=== PATIENT | female | born 1955 | race Caucasian/White ===

== ENCOUNTER 2016-08-23 00:40 | Emergency (ER) | payer MEDICARE, BC ==
[2016-08-23 01:35] LABS: Basophils % (A) 0 %; CH 28.5; CHCM 31.6; Eosinophils # (A) 0.1 k/uL (0-0.7); Eosinophils % (A) 1 %; HCT 33.6 % (34.0-46.0); HDW 2.34; HGB 10.6 gm/dL (11.4-16.0); Luc # (Auto) 0.04; Luc % (Auto) 0; Lymphocytes # (A) 0.9 k/uL (1.0-4.8); Lymphocytes % (A) 10 %; MCH 28.5 pg (25.0-35.0); MCHC 31.5 g/dL (31.0-37.0); MCV 90.7 fL (80.0-100.0); Mean Platelet Volume 6.4; Monocytes # (A) 0.2 k/uL (0-1.0); Monocytes % (A) 3 %; Neutrophils % (A) 85 %; RBC 3.71 m/uL (3.80-5.40); RDW 15.1 % (11.5-15.5); WBC 8.2 k/uL (3.8-10.6); WBC (Perox) 9.04
[2016-08-23 01:47] LABS: Calcium 9.8 mg/dL (8.4-10.2); Potassium 4.6 mmol/L (3.5-5.1); Total Bilirubin 0.3 mg/dL (0.2-1.3); Total Protein 6.8 g/dL (6.3-8.2)
--- NOTE | 2016-08-23 01:56 | XR ---
PROCEDURE: FILM CXR 2 VIEWS HISTORY: 60-year-old female with chest pain. COMPARISON: Chest radiograph 08/08/[address] chest 02/23/2016 TECHNIQUE: Frontal and lateral views of the chest were obtained. FINDINGS: Evaluation is for by positioning and technique Cardiac silhouette is enlarged, but stable when allowing for differences in technique and positioning. Stable mediastinal silhouette when allowing for differences in technique and positioning. Bibasilar atelectasis. No evidence of focal consolidation or pleural effusion. Bones demonstrate multilevel degenerative changes in the spine. IMPRESSION: Cardiac silhouette is enlarged, but stable when allowing for differences in technique and positioning. No evidence of focal consolidation or pleural effusion.
[2016-08-23 02:15] LABS: Creatine Kinase MB 0.4 ng/mL (0.0-2.4); Troponin I 0.014 ng/mL (0.000-0.034)
--- NOTE | 2016-08-23 02:36 | ED ---
Chest Pain HPI - General Chief Complaint: Chest Pain Stated Complaint: Chest Pain Time Seen by Provider: 08/23/16 00:47 Source: patient Mode of arrival: wheelchair Limitations: physical limitation - History of Present Illness MD Complaint: chest pain -: hour(s) Onset: during rest Pain Location: right chest Pain Radiation: neck, jaw/teeth Severity: moderate Quality: tightness Consistency: constant Improves With: nothing - Related Data Home Medications Medication Instructions Recorded Confirmed Aspirin 81 mg PO BID 05/12/14 02/23/16 Cetirizine HCl [Zyrtec] 10 mg PO HS PRN 05/12/14 02/23/16 Cholecalciferol [Vitamin D3] 5,000 unit PO DAILY 05/12/14 02/23/16 Ferrous Sulfate [Iron (65 MG 325 mg PO PC-LUNCH 05/12/14 02/23/16 Elemental)] Isosorbide Mononitrate ER [Imdur] 30 mg PO DAILY 05/12/14 02/23/16 Levothyroxine Sodium [Synthroid] 75 mcg PO DAILY 05/12/14 02/23/16 Lisinopril [Zestril] 10 mg PO DAILY 05/12/14 02/23/16 Meloxicam [Mobic] 15 mg PO PC-LUNCH 05/12/14 02/23/16 Metoprolol Tartrate [Lopressor] 25 mg PO BID 05/12/14 02/23/16 Pravastatin Sodium [Pravachol] 40 mg PO DAILY 05/12/14 02/23/16 Bisacodyl [Dulcolax] 10 mg PO DAILY 02/17/15 02/23/16 Cyanocobalamin [Vitamin B-12] 500 mcg PO DAILY 02/17/15 02/23/16 Fluticasone Nasal [place] [Flonase 1 spray EA NOSTRIL BID PRN 02/17/15 02/23/16 Nasal [place]] Vitamin E (Dl,Tocopheryl Acet) 400 unit PO DAILY 02/17/15 02/23/16 [Vitamin E] metFORMIN HCL 1,000 mg PO BID-W/MEALS 02/17/15 02/23/16 Albuterol Sulfate [Proventil Hfa] 2 puff INHALATION RT-Q4H PRN 02/23/16 02/23/16 Furosemide [Lasix] 40 mg PO BID 02/23/16 02/23/16 Krill Oil 500 mg PO DAILY 02/23/16 02/23/16 Mometasone Furoate [Asmanex Hfa] 2 puff INHALATION RT-BID 02/23/16 02/23/16 Potassium Chloride ER [K-Dur 10] 20 meq PO TID-W/MEALS 02/23/16 02/23/16 buPROPion HCL [Wellbutrin SR] 200 mg PO BID 02/23/16 02/23/16 oxyCODONE-APAP 5-325MG [Percocet 1 tab PO TID PRN 02/23/16 02/23/16 5-325 mg] Previous Rx's Medication Instructions Recorded Famotidine [Pepcid] 20 mg PO BID #60 tab 02/26/16 Rivaroxaban [Xarelto] 15 mg PO BID-W/MEALS tab 02/26/16 Allergies Allergy/AdvReac Type Severity Reaction Status Date / Time latex Allergy Rash/Hives Verified 08/23/16 06:05 Tetracyclines AdvReac YEAST Verified 08/23/16 06:05 INFECTION- PREFERS NOT TO TAKE tramadol AdvReac Nausea & Verified 08/23/16 06:05 Vomiting ENVIRONMENTAL ALLERGIES Allergy SINUS Uncoded 08/23/16 06:05 SYMPTOMS-GRASS TREES,DUST,POLLENS,MOLD Review of Systems ROS Statement: Those systems with pertinent positive or pertinent negative responses have been documented in the HPI. ROS Other: All systems not noted in ROS Statement are negative. Past Medical History Past Medical History: Atrial Fibrillation, Asthma, Coronary Artery Disease (CAD) , CVA/TIA, Diabetes Mellitus, Fibromyalgia, Hyperlipidemia, Hypertension, Myocardial Infarction ([place]), Osteoarthritis (OA), Skin Disorder, Thyroid Disorder Additional Past Medical History / Comment(s): BOTTOM 1/3 HEART DAMAGED-HEART MURMUR, CHRONIC CONSTIPATION,LOWER LEGS RED & PURPLE IN [id number]-[id number]-[id number] VERY DRY,SINUS HEADACHES, HX ANEMIA, HYST in 2014-was told cancer,. 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.FEET- NUMBNESS IF STANDS FOR MORE THAN 5 MINUTES,STROKE @ AGE 39-MILD PARALYSIS LT SIDE-AFFECTED FACE-LT EYELID Last Myocardial Infarction Date:: UNKNOWN History of Any Multi-Drug Resistant Organisms: None Reported Past Surgical History: Appendectomy, Cardiac Ablation, Cholecystectomy, Heart Catheterization, Heart Catheterization With Stent, Hysterectomy Additional Past Surgical History / Comment(s): PARTIAL HYSTERECTOMY 03/18/14 @ [facility]. CATARACT BLACK. WITH IMPLANTS. HEART CATH X 3 TOTAL 3 STENTS Past Anesthesia/Blood Transfusion Reactions: Motion Sickness Additional Past Anesthesia/Blood Transfusion Reaction / Comment(s): states needs general anesthesia, not IV sedation Date of Last Stent Placement:: UNKNOWN Past Psychological History: Depression Smoking Status: Former smoker Past Alcohol Use History: Rare Additional Past Alcohol Use History / Comment(s): SMOKES AGE 15 TO AGE 20 -WHEN QUIT WAS 1/2 PPD Past Drug Use History: None Reported - Past Family History Mother Family Medical History: Cancer Additional Family Medical History / Comment(s): STATES CA WAS ALL OVER- NOT SURE OF PRIMARY SITE General Exam Limitations: physical limitation Course Vital Signs 08/23/16 08/23/16 08/23/16 00:47 01:30 03:08 Temperature 98.7 F Pulse Rate 106 H 92 91 Respiratory 20 20 20 Rate Blood Pressure 196/89 147/64 145/65 O2 Sat by Pulse 95 95 94 L Oximetry 08/23/16 08/23/16 08/23/16 04:15 05:30 06:24 Temperature Pulse Rate 87 84 83 Respiratory 20 18 18 Rate Blood Pressure 144/81 139/67 139/67 O2 Sat by Pulse 94 L 95 94 L Oximetry Disposition Clinical Impression: CHF (congestive heart failure) Disposition: HOME SELF-CARE Condition: Fair Instructions: Heart Failure (ED) Additional Instructions: As we discussed, take an extra dose of lasix for the next three days. Follow with Dr. Deluca as we discussed. Return here if any symptoms recur. Referrals: Lor Deluca MD [Primary Care Provider] - 1-2 days
[2016-08-23] MEDS ORDERED: ACETAMINOPHEN TAB 325 MG TAB PO STA (02:45)
[2016-08-23 05:40] VITALS: RESP 18
[2016-08-23] MEDS ORDERED: FUROSEMIDE 40 MG TAB PO STA (08:06)
[2016-08-23 08:24] VITALS: BP 132/63; PULSE 92; TEMP 98
== END 2016-08-23 09:02 | disposition home or self-care (01) ==
LOC: EC 00:40
DX: I11.0 Hypertensive heart disease with heart failure (principal); M54.2 Cervicalgia; E78.5 Hyperlipidemia, unspecified; E11.9 Type 2 diabetes mellitus without complications; D64.9 Anemia, unspecified; I25.10 Atherosclerotic heart disease of native coronary artery without angina pectoris; E07.9 Disorder of thyroid, unspecified; M19.90 Unspecified osteoarthritis, unspecified site; M79.7 Fibromyalgia; F32.9 Major depressive disorder, single episode, unspecified; K59.09 Other constipation; L98.8 Other specified disorders of the skin and subcutaneous tissue; I25.2 Old myocardial infarction; Z87.891 Personal history of nicotine dependence; Z79.51 Long term (current) use of inhaled steroids; Z79.84 Long term (current) use of oral hypoglycemic drugs; Z79.1 Long term (current) use of non-steroidal anti-inflammatories (NSAID); Z79.82 Long term (current) use of aspirin; Z79.899 Other long term (current) drug therapy; Z88.1 Allergy status to other antibiotic agents; Z88.6 Allergy status to analgesic agent; Z91.048 Other nonmedicinal substance allergy status; Z91.040 Latex allergy status; Z95.5 Presence of coronary angioplasty implant and graft; Z86.73 Personal history of transient ischemic attack (TIA), and cerebral infarction without residual deficits
CPT/HCPCS: 36415; 71020; 80053; 82550; 82553; 84484; 85025; 85379; 99285

== ENCOUNTER → 2017-01-08 | Outpatient (CLI) | payer MEDICARE, BC ==
[2017-01-08 14:31] LABS: Basophils # (A) 0.1 k/uL (0-0.2); Basophils % (A) 1 %; CH 28.6; CHCM 30.3; Eosinophils # (A) 0.2 k/uL (0-0.7); Eosinophils % (A) 2 %; HCT 39.3 % (34.0-46.0); HGB 12.2 gm/dL (11.4-16.0); Hypochromasia Moderate; Luc # (Auto) 0.19; Luc % (Auto) 2; Lymphocytes # (A) 1.4 k/uL (1.0-4.8); Lymphocytes % (A) 14 %; MCH 29.5 pg (25.0-35.0); MCHC 31.1 g/dL (31.0-37.0); MCV 94.9 fL (80.0-100.0); Mean Platelet Volume 7.1; Monocytes # (A) 0.5 k/uL (0-1.0); Monocytes % (A) 5 %; Neutrophils # (A) 7.9 k/uL (1.3-7.7); Neutrophils % (A) 77 %; RBC 4.14 m/uL (3.80-5.40); RDW 15.2 % (11.5-15.5); WBC 10.3 k/uL (3.8-10.6); WBC (Perox) 10.82
[2017-01-08 14:58] LABS: Calcium 9.3 mg/dL (8.4-10.2); Magnesium 1.8 mg/dL (1.6-2.3); Potassium 5.1 mmol/L (3.5-5.1); Total Protein 6.9 g/dL (6.3-8.2)
[2017-01-08 18:26] LABS: Urine Creatinine 257.2 mg/dL
[2017-01-08 18:35] LABS: Iron(FE) 68 ug/dL (50-170); Total Iron Binding Capacity 382 ug/dL (228-460)
[2017-01-12 23:21] LABS: Alternaria Alternata IgG 6.9 mcg/mL (< 13.6); Phoma ssp. IgG 5.9 mcg/mL (< 6.6); Saccaharomospora viridis Not detected (Not detected); Saccaharopoly. rectivirgula Not detected (Not detected)
== END | disposition home or self-care (01) ==
LOC: LABWHC1 13:17
PROVIDERS: ATTEND Family Medicine
DX: J67.9 Hypersensitivity pneumonitis due to unspecified organic dust (principal); R06.00 Dyspnea, unspecified; Z79.01 Long term (current) use of anticoagulants
CPT/HCPCS: 36415; 80053; 80061; 82043; 82550; 82570; 82607; 82785; 83036; 83540; 83550; 83735; 84165; 84439; 84443; 84480; 85025; 85379; 86001; 86606; 86609

== ENCOUNTER 2017-01-09 14:41 | Inpatient (IN) | payer MEDICARE, BC ==
[2017-01-09] MEDS ORDERED: HEPARIN SODIUM,PORCINE 10,000 UNIT/ML 1 ML VIAL IV ONE (15:05)
[2017-01-09] MEDS ORDERED: HEPARIN SODIUM,PORCINE 5,000 UNIT/ML 1 ML VIAL IV PRN (15:25)
[2017-01-09] MEDS ORDERED: SODIUM CHLORIDE 0.9% 1,000 ML IV STA (15:25)
[2017-01-09] MEDS: HEPARIN SODIUM,PORCINE/D5W PMX 25,000 UNIT in DEXTROSE/WATER 1 500ML.BAG IV SCH (15:26)
[2017-01-09 15:55] LABS: Basophils % (A) 0 %; CH 28.9; CHCM 30.9; Eosinophils % (A) 0 %; HCT 39.5 % (34.0-46.0); HDW 2.27; HGB 12.8 gm/dL (11.4-16.0); Hypochromasia Slight; Luc # (Auto) 0.03; Luc % (Auto) 0; Lymphocytes # (A) 0.7 k/uL (1.0-4.8); Lymphocytes % (A) 8 %; MCH 30.6 pg (25.0-35.0); MCHC 32.4 g/dL (31.0-37.0); MCV 94.2 fL (80.0-100.0); Mean Platelet Volume 6.8; Monocytes # (A) 0.2 k/uL (0-1.0); Monocytes % (A) 2 %; Neutrophils # (A) 7.6 k/uL (1.3-7.7); Neutrophils % (A) 89 %; RBC 4.19 m/uL (3.80-5.40); RDW 15.1 % (11.5-15.5); WBC 8.5 k/uL (3.8-10.6); WBC (Perox) 8.62
[2017-01-09 16:03] LABS: INR 1.2 (<1.2); Partial Thromboplastin Time 22.1 sec (22.0-30.0); Prothrombin Time 11.7 sec (9.0-12.0)
[2017-01-09] MEDS ORDERED: MORPHINE SULFATE 4 MG/ML SYRINGE IV PRN (16:10)
[2017-01-09] MEDS ORDERED: NITROGLYCERIN SL TABS 0.4 MG TAB SUBLINGUAL PRN (16:10)
[2017-01-09 16:12] LABS: Calcium 9.6 mg/dL (8.4-10.2); Magnesium 1.9 mg/dL (1.6-2.3); Potassium 4.9 mmol/L (3.5-5.1); Total Bilirubin 0.6 mg/dL (0.2-1.3); Total Protein 6.9 g/dL (6.3-8.2)
--- NOTE | 2017-01-09 16:13 | ED ---
General Adult HPI - General Chief complaint: Shortness of Breath Stated complaint: Poss Blood Clot Time Seen by Provider: 01/09/17 15:14 Source: patient, RN notes reviewed, old records reviewed Mode of arrival: wheelchair Limitations: no limitations - History of Present Illness Initial comments: This is a 61-year-old female to the ER for evaluation. Patient that they for evaluation regarding consistent shortness of breath cough and congestion for about 6 weeks progressively worsening and worsening despite outpatient treatment including treatment of bronchitis and pneumonia. Patient denies any pain but states she has discontinued continuing and worsening shortness of breath on exertion. Patient states she does have history of PE. Denies any fevers or travel history patient's PE she states was about a year ago and she did take blood thinners first 5 months until resolution of symptoms, resolution of PE - Related Data Home Medications Medication Instructions Recorded Confirmed Aspirin 81 mg PO BID 05/12/14 01/09/17 Cetirizine HCl [Zyrtec] 10 mg PO HS PRN 05/12/14 01/09/17 Cholecalciferol [Vitamin D3] 5,000 unit PO DAILY 05/12/14 01/09/17 Isosorbide Mononitrate ER [Imdur] 30 mg PO DAILY 05/12/14 01/09/17 Lisinopril [Zestril] 10 mg PO DAILY 05/12/14 01/09/17 Meloxicam [Mobic] 15 mg PO PC-LUNCH 05/12/14 01/09/17 Metoprolol Tartrate [Lopressor] 25 mg PO BID 05/12/14 01/09/17 Pravastatin Sodium [Pravachol] 40 mg PO DAILY 05/12/14 01/09/17 Bisacodyl [Dulcolax] 10 mg PO DAILY 02/17/15 01/09/17 Cyanocobalamin [Vitamin B-12] 500 mcg PO DAILY 02/17/15 01/09/17 Fluticasone Nasal [place] [Flonase 1 spray EA NOSTRIL BID PRN 02/17/15 01/09/17 Nasal [place]] Vitamin E (Dl,Tocopheryl Acet) 400 unit PO DAILY 02/17/15 01/09/17 [Vitamin E] metFORMIN HCL 1,000 mg PO BID-W/MEALS 02/17/15 01/09/17 Albuterol Sulfate [Proventil Hfa] 2 puff INHALATION RT-Q4H PRN 02/23/16 01/09/17 Krill Oil 500 mg PO DAILY 02/23/16 01/09/17 buPROPion HCL [Wellbutrin SR] 200 mg PO BID 02/23/16 01/09/17 Ascorbic Acid [Vitamin C] 500 mg PO DAILY 01/09/17 01/09/17 Clotrimazole [place] [Mycelex 10 mg MUCOUS MEM 5XD 01/09/17 01/09/17 [place]] Fluticasone/Vilanterol [Breo 1 puff INHALATION RT-BID 01/09/17 01/09/17 Ellipta 200-25 Mcg INH] Levothyroxine Sodium [Tirosint] 88 mcg PO DAILY 01/09/17 01/09/17 Ranitidine HCl [Zantac] 75 mg PO BID 01/09/17 01/09/17 Rivaroxaban [Xarelto] 15 mg PO DAILY 01/09/17 01/09/17 guaiFENesin [Mucinex] 600 mg PO BID 01/09/17 01/09/17 predniSONE See Taper PO DAILY 01/09/17 01/09/17 Previous Rx's Medication Instructions Recorded Famotidine [Pepcid] 20 mg PO BID #60 tab 02/26/16 Allergies Allergy/AdvReac Type Severity Reaction Status Date / Time latex Allergy Rash/Hives Verified 01/09/17 15:09 Milk Containing Products AdvReac THRUSH Verified 01/09/17 15:09 [Dairy] Tetracyclines AdvReac YEAST Verified 01/09/17 15:09 INFECTION- PREFERS NOT TO TAKE tramadol AdvReac Nausea & Verified 01/09/17 15:09 Vomiting ENVIRONMENTAL ALLERGIES Allergy SINUS Uncoded 01/09/17 14:48 SYMPTOMS-GRASS TREES,DUST,POLLENS,MOLD Review of Systems ROS Statement: Those systems with pertinent positive or pertinent negative responses have been documented in the HPI. ROS Other: All systems not noted in ROS Statement are negative. Past Medical History Past Medical History: Atrial Fibrillation, Asthma, Coronary Artery Disease (CAD) , CVA/TIA, Diabetes Mellitus, Fibromyalgia, Hyperlipidemia, Hypertension, Myocardial Infarction ([place]), Osteoarthritis (OA), Skin Disorder, Thyroid Disorder Additional Past Medical History / Comment(s): BOTTOM 1/3 HEART DAMAGED-HEART MURMUR, CHRONIC CONSTIPATION,LOWER LEGS RED & PURPLE IN [id number] VERY DRY,SINUS HEADACHES, HX ANEMIA, HYST in 2014-was told cancer,. 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.FEET- NUMBNESS IF STANDS FOR MORE THAN 5 MINUTES,STROKE @ AGE 39-MILD PARALYSIS LT SIDE-AFFECTED FACE-LT EYELID Last Myocardial Infarction Date:: UNKNOWN History of Any Multi-Drug Resistant Organisms: None Reported Past Surgical History: Appendectomy, Cardiac Ablation, Cholecystectomy, Heart Catheterization, Heart Catheterization With Stent, Hysterectomy Additional Past Surgical History / Comment(s): PARTIAL HYSTERECTOMY 03/18/14 @ [facility]. CATARACT BLACK. WITH IMPLANTS. HEART CATH X 3 TOTAL 3 STENTS Past Anesthesia/Blood Transfusion Reactions: Motion Sickness Additional Past Anesthesia/Blood Transfusion Reaction / Comment(s): states needs general anesthesia, not IV sedation Date of Last Stent Placement:: UNKNOWN Past Psychological History: Depression Smoking Status: Former smoker Past Alcohol Use History: Rare Past Drug Use History: None Reported - Past Family History Mother Family Medical History: Cancer Additional Family Medical History / Comment(s): STATES CA WAS ALL OVER- NOT SURE OF PRIMARY SITE General Exam Limitations: no limitations General appearance: alert, in no apparent distress Head exam: Present: atraumatic, normocephalic, normal inspection Eye exam: Present: normal appearance, PERRL, EOMI. Absent: scleral icterus, conjunctival injection, periorbital swelling ENT exam: Present: normal exam, mucous membranes moist Neck exam: Present: normal inspection. Absent: tenderness, meningismus, lymphadenopathy Respiratory exam: Present: normal lung sounds bilaterally. Absent: respiratory distress, wheezes, rales, rhonchi, stridor Cardiovascular Exam: Present: regular rate, normal rhythm, normal heart sounds. Absent: systolic murmur, diastolic murmur, rubs, gallop, clicks GI/Abdominal exam: Present: soft, normal bowel sounds. Absent: distended, tenderness, guarding, rebound, rigid Extremities exam: Present: normal inspection, full ROM, normal capillary refill. Absent: tenderness, pedal edema, joint swelling, calf tenderness Back exam: Present: normal inspection Neurological exam: Present: alert, oriented X3, CN II-XII intact Psychiatric exam: Present: normal affect, normal mood Skin exam: Present: warm, dry, intact, normal color. Absent: rash Course Vital Signs 01/09/17 01/09/1701/09/17 14:44 15:36 15:45 Temperature 97.9 F Pulse Rate 88 95 Respiratory 16 20 20 Rate Blood Pressure 205/83 O2 Sat by Pulse 97 97 Oximetry - Reevaluation(s) Reevaluation #1: 01/09/17 16:12 Patient has good pain control Medical Decision Making - Medical Decision Making 61 female at ER for evaluation of shortness of breath cough and congestion increasing for quite sometime. Patient states about 6 weeks. Patient has positive PE, history of PE about one year ago which she has recently stopped taking blood thinners for. Patient does not know underlying cause. Currently complaining about chest pain shortness of breath - Lab Data Result diagrams: 01/09/17 15:14 Lab Results 01/09/17 01/09/17 Range/Units 15:14 15:14 WBC 8.5 (3.8-10.6) k/uL RBC 4.19 (3.80-5.40) m/uL Hgb 12.8 (11.4-16.0) gm/dL Hct 39.5 (34.0-46.0) % MCV 94.2 (80.0-100.0) fL MCH 30.6 (25.0-35.0) pg MCHC 32.4 (31.0-37.0) g/dL RDW 15.1 (11.5-15.5) % Plt Count 179 (150-450) k/uL Neutrophils % 89 % Lymphocytes % 8 % Monocytes % 2 % Eosinophils % 0 % Basophils % 0 % Neutrophils # 7.6 (1.3-7.7) k/uL Lymphocytes # 0.7 L (1.0-4.8) k/uL Monocytes # 0.2 (0-1.0) k/uL Eosinophils # 0.0 (0-0.7) k/uL Basophils # 0.0 (0-0.2) k/uL Hypochromasia Slight PT 11.7 (9.0-12.0) sec INR 1.2 H (<1.2) APTT 22.1 (22.0-30.0) sec - Radiology Data Radiology results: report reviewed (CT angios shows positive PE) Critical Care Time Critical Care Time: Yes Total Critical Care Time: 31 Disposition Clinical Impression: Pulmonary embolism, Saddle pulmonary embolus Disposition: ADMITTED IP TO THIS HOSP Condition: Serious Referrals: Lor Deluca MD [Primary Care Provider] - 1-2 days
[2017-01-09 16:30] LABS: Creatine Kinase MB 0.8 ng/mL (0.0-2.4)
[2017-01-09 16:36] LABS: Troponin I 0.079 ng/mL (0.000-0.034)
[2017-01-09 17:42] LABS: Glucose,Whole Blood 262 mg/dL (75-99)
[2017-01-09 18:12] VITALS: BMI 49.8
[2017-01-09] MEDS ORDERED: FLUTICASONE 50MCG/SPRAY NASAL 16GM EA NOSTRIL PRN (21:05)
[2017-01-09] MEDS: buPROPion SR 100 MG TABLET.ER PO SCH (22:12)
[2017-01-09] MEDS: FAMOTIDINE 20 MG TAB PO SCH (22:12)
[2017-01-09] MEDS: LORATADINE 10 MG TAB PO SCH (22:12)
[2017-01-09] MEDS: guaiFENesin 600 MG TABLET.ER PO SCH (22:12)
[2017-01-09] MEDS: METOPROLOL TARTRATE 25 MG TAB PO SCH (22:13)
[2017-01-09 22:35] LABS: Glucose,Whole Blood 216 mg/dL (75-99)
[2017-01-09] MEDS: INSULIN LISPRO (humaLOG) 300 UNIT/3 ML VIAL SQ SCH (22:37)
[2017-01-09 23:14] LABS: Troponin I 0.052 ng/mL (0.000-0.034)
[2017-01-09] MEDS: ZOLPIDEM 5 MG TAB PO PRN (23:30)
[2017-01-10] MEDS: CLOTRIMAZOLE TROCHE 10 MG TROCHE MUCOUS MEM SCH ×5 (00:43→20:16)
[2017-01-10] MEDS: HEPARIN SODIUM,PORCINE/D5W PMX 25,000 UNIT in DEXTROSE/WATER 1 500ML.BAG IV SCH (01:09)
[2017-01-10 05:44] LABS: INR 1.3 (<1.2); Prothrombin Time 12.5 sec (9.0-12.0)
[2017-01-10 05:52] LABS: Partial Thromboplastin Time 166.6 sec (22.0-30.0)
[2017-01-10 06:07] LABS: Basophils % (A) 0 %; CH 28.6; CHCM 29.8; Eosinophils # (A) 0.1 k/uL (0-0.7); Eosinophils % (A) 1 %; HCT 34.9 % (34.0-46.0); HDW 2.27; HGB 10.8 gm/dL (11.4-16.0); Hypochromasia Marked; Luc % (Auto) 2; Lymphocytes # (A) 1.4 k/uL (1.0-4.8); Lymphocytes % (A) 14 %; MCH 29.7 pg (25.0-35.0); MCHC 30.9 g/dL (31.0-37.0); MCV 96.2 fL (80.0-100.0); Mean Platelet Volume 6.7; Monocytes # (A) 0.5 k/uL (0-1.0); Monocytes % (A) 5 %; Neutrophils # (A) 7.7 k/uL (1.3-7.7); Neutrophils % (A) 78 %; RBC 3.63 m/uL (3.80-5.40); WBC 9.9 k/uL (3.8-10.6); WBC (Perox) 10.76
[2017-01-10 06:08] LABS: Blood Urea Nitrogen 25 mg/dL (7-17); Carbon Dioxide 20 mmol/L (22-30); Cholesterol 206 mg/dL (<200); Glucose 141 mg/dL (74-99); Non-African American GFR(MDRD) 58 (>60 ml/min/1.73 sqM); Total Bilirubin 0.5 mg/dL (0.2-1.3); Total Protein 5.7 g/dL (6.3-8.2)
[2017-01-10 06:09] LABS: Creatine Kinase MB 1.1 ng/mL (0.0-2.4)
[2017-01-10] MEDS: LEVOTHYROXINE 88 MCG TAB PO SCH (06:12)
[2017-01-10 06:21] LABS: Troponin I 0.1 ng/mL (0.000-0.034)
[2017-01-10 06:28] LABS: ALT 25 U/L (9-52); AST 17 U/L (14-36); Alkaline Phosphatase 79 U/L (38-126); Anion Gap 7 mmol/L; Calcium 9.1 mg/dL (8.4-10.2); Chloride 108 mmol/L (98-107); HDL Cholesterol 65 mg/dL (40-60); Potassium 4.7 mmol/L (3.5-5.1); Sodium 135 mmol/L (137-145)
[2017-01-10 07:24] LABS: Glucose,Whole Blood 148 mg/dL (75-99)
[2017-01-10] MEDS ORDERED: INSULIN LISPRO (humaLOG) 300 UNIT/3 ML VIAL SQ SCH (07:30)
--- NOTE | 2017-01-10 07:31 | US ---
EXAMINATION TYPE: US venous doppler duplex LE BI DATE OF EXAM: 01/09/2017 6:38 PM COMPARISON: NONE CLINICAL HISTORY: saddle pe. SIDE PERFORMED: Bilateral TECHNIQUE: The lower extremity deep venous system is examined utilizing real time linear array sonog aj with graded compression, doppler sonography and color-flow sonography. VESSELS IMAGED: External Iliac Vein (EIV) Common Femoral Vein Deep Femoral Vein Greater Saphenous Vein * Femoral Vein Popliteal Vein Small Saphenous Vein * Proximal Calf Veins (* superficial vessels) Right Leg: Positive for DVT Left Leg: Negative for DVT Right leg positive for DVT in Common femoral vein, Femoral vein and popliteal vein. IMPRESSION: 1. Positive for DVT right lower extremity. 2. Negative left lower extremity.
[2017-01-10] MEDS: IPRATROPIUM-ALBUTEROL 3 ML NEB INHALATION SCH ×4 (07:39→19:44)
[2017-01-10] MEDS: INSULIN LISPRO (humaLOG) 300 UNIT/3 ML VIAL SQ SCH ×4 (07:45→20:16)
[2017-01-10] MEDS ORDERED: ALBUTEROL NEBULIZED 2.5 MG/3 ML INHALATION SCH (08:00)
[2017-01-10] MEDS: buPROPion SR 100 MG TABLET.ER PO SCH ×2 (08:39→20:16)
[2017-01-10] MEDS: guaiFENesin 600 MG TABLET.ER PO SCH ×2 (08:40→20:16)
[2017-01-10] MEDS: BISACODYL 5 MG TABLET.DR PO SCH (08:40)
[2017-01-10] MEDS: LISINOPRIL 10 MG TAB PO SCH (08:41)
[2017-01-10] MEDS: predniSONE 20 MG TAB PO SCH (08:41)
[2017-01-10] MEDS: FAMOTIDINE 20 MG TAB PO SCH (08:41)
[2017-01-10] MEDS: ISOSORBIDE MONONITRATE ER 30 MG TAB.ER.24H PO SCH (08:42)
[2017-01-10] MEDS: METOPROLOL TARTRATE 25 MG TAB PO SCH ×2 (08:42→20:17)
--- NOTE | 2017-01-10 08:57 | CONS ---
CONSULTATION Mrs. Oconnell is a 61-year-old female known history of coronary artery disease, history of cerebrovascular accident, prior ablation for atrial fibrillation, prior history of stroke and history of pulmonary embolism, who presented to the hospital with symptoms of progressive dyspnea going on for the last few weeks. She underwent an outpatient evaluation of her D-dimer that was markedly abnormal and subsequently a CT scan that was consistent with a saddle pulmonary embolism. She was admitted. The patient is limited in her physical activity, but for the last 6 weeks has noted significant worsening in her breathing pattern with significant dyspnea on exertion. She has occasional chest discomfort. Occasional dizziness or palpitation. She has chronic peripheral edema. She sleeps upright because of her back. She has some palpitation, but no recent syncope. She has no PND. She has underwent prior percutaneous revascularization according to her, but the full detail of that is not available to me at this point. She he was diagnosed with a pulmonary embolism in February of 2016. Her coronary risk factors are positive for history of hyperlipidemia, history of hypertension and history of diabetes. She is a nonsmoker. MEDICATION: Her medications at home include vitamin D, vitamin B, Zyrtec, Dulcolax, Mobic, Zestril 10 mg daily, isosorbide mononitrate 30 mg daily. Pepcid. pravastatin 40 mg daily, metoprolol tartrate 25 mg twice a day, bupropion, metformin 1 gram twice a day, levothyroxine, Breo Ellipta, Zantac, prednisone tapered dose, Krill oil and albuterol. REVIEW OF SYSTEMS: RESPIRATORY SYSTEM: She has history of bronchial asthma. History of significant dyspnea on exertion. GI SYSTEM: No recent GI bleed. No peptic ulcer disease. SYSTEM: She had a prior history of hematuria. NERVOUS SYSTEM: No history of seizure. She had a history of stroke. PHYSICAL EXAMINATION: A 61-year-old female, alert, mildly dyspneic, morbidly obese. The blood pressure running in the 130s to 150s with the heart rate in the 70s. HEAD: Normocephalic. EYES: Sclerae anicteric. NECK: No bruit. Unable to evaluate jugular venous pressure. LUNGS: With no wheezes or rales. HEART: Regular rate and rhythm. S1, S2. No S3, no rub with a systolic murmur at the base. No diastolic murmur. ABDOMEN: Soft, obese, nontender. Positive bowel sounds. No organomegaly. EXTREMITIES: Chronic skin changes with mild edema. Generalized tenderness in the legs related to fibromyalgia. LAB DATA: Lab data revealed a BUN and creatinine of 25 and 0.97. On admission, they were 30 and 1.2. Potassium 4.7. Hemoglobin of 10.8. Troponin of 0.079, 0.052 and 0.10. Her cholesterol is 206 with an LDL of 130. Her EKG revealed a sinus mechanism, rate of 93, left axis deviation, poor R progression. She underwent a venous duplex scan of her lower extremities that revealed positive for DVT in the right lower extremity and negative in the left lower extremity. IMPRESSION: 1. Saddle pulmonary embolism, patient had a similar event in February of 2016. 2. Minimal elevation of troponin, most likely related to her pulmonary embolism. I see no evidence to suggest primary cardiac event. 3. History of coronary artery disease. 4. History of paroxysmal atrial fibrillation, status post ablation. 5. History of hypertension. 6. Hyperlipidemia. 7. Diabetes mellitus. 8. History of fibromyalgia. 9. Morbid obesity. RECOMMENDATION: From the cardiac standpoint, I will start her on Xarelto 15 mg twice a day. I will stop her heparin. I will review the results of her echocardiogram. I will switch her to atorvastatin since her lipid remains suboptimal. Depending on her progress, further recommendation will be made. Thank you for this consult. We will follow with you. MMODL / IJN: [id number] /
[2017-01-10] MEDS ORDERED: ASPIRIN 325 MG TAB PO SCH (09:00)
[2017-01-10] MEDS ORDERED: PRAVASTATIN SODIUM 40 MG TAB PO SCH (09:00)
[2017-01-10] MEDS: ATORVASTATIN 40 MG TAB PO SCH (09:33)
[2017-01-10] MEDS: RIVAROXABAN 15 MG TAB PO SCH ×2 (09:33→17:35)
--- NOTE | 2017-01-10 09:54 | ECHOF ---
Referral Reason:saddle pe MEASUREMENTS -------- HEIGHT: 157.5 cm WEIGHT: 125.2 kg BP: 134/72 RVIDd: 2.3 cm (< 3.3) IVSd: 1.2 cm (0.6 - 1.1) LVIDd: 4.9 cm (3.9 - 5.3) LVPWd: 1.4 cm (0.6 - 1.1) IVSs: 1.8 cm LVIDs: 3.3 cm LVPWs: 1.5 cm Ao Diam: 3.5 cm (2.0 - 3.7) AV Cusp: 2.3 cm (1.5 - 2.6) LA Diam: 3.5 cm (2.7 - 3.8) MV EXCURSION: 15.618 mm (> 18.000) MV EF SLOPE: 48 mm/s (70 - 150) EPSS: 1.1 cm MV E Chris: 0.62 m/s MV DecT: 149 ms MV A Chris: 0.56 m/s MV E/A Ratio: 1.10 AR PHT: 473 ms RAP: 5.00 mmHg RVSP: 30.35 mmHg FINDINGS -------- Sinus rhythm. This was a technically difficult study with suboptimal views. No Apicals due to skin tears. The left ventricular size is normal. There is mild concentric left ventricular hypertrophy. Overall left ventricular systolic function is low-normal with, an EF between 50 - 55 %. The right ventricle is normal in size and function. The left atrium is normal in size. The right atrium is normal in size. The aortic valve is trileaflet, and appears structurally normal. No aortic stenosis or regurgitation. The mitral valve leaflets are mildly thickened. There is trace mitral regurgitation. Mild tricuspid regurgitation present. The right ventricular systolic pressure, as measured by Doppler, is 30.35mmHg. Pulmonic valve appears structurally normal. The aortic root size is normal. The pericardium is normal. CONCLUSIONS -------- 1. Sinus rhythm. 2. The aortic valve is trileaflet, and appears structurally normal. No aortic stenosis or regurgitation. 3. The mitral valve leaflets are mildly thickened. 4. There is trace mitral regurgitation. 5. Mild tricuspid regurgitation present. 6. The right ventricular systolic pressure, as measured by Doppler, is 30.35mmHg. 7. Pulmonic valve appears structurally normal. 8. The aortic root size is normal. 9. The pericardium is normal. 10. This was a technically difficult study with suboptimal views. 11. No Apicals due to skin tears. 12. The left ventricular size is normal. 13. There is mild concentric left ventricular hypertrophy. 14. Overall left ventricular systolic function is low-normal with, an EF between 50 - 55 %. 15. The right ventricle is normal in size and function. 16. The left atrium is normal in size. 17. The right atrium is normal in size. TUBE TEST TECHNICIAN: Grecia Alamo RDCS
--- NOTE | 2017-01-10 10:55 | P.CNPUL ---
History of Present Illness Consult date: 01/10/17 Requesting physician: Lor Deluca Reason for consult: pulmonary embolism Chief complaint: shortness of breath History of present illness: This is a 61-year-old female patient being seen examined and evaluated today in the intensive care unit. This patient came into the emergency room yesterday with shortness of breath cough and congestion that had been ongoing for approximately 2 months and had been getting progressively worse over the last week. Patient did recently have outpatient treatment for bronchitis and pneumonia as well. Patient does have a significant history of PE approximately one year ago and was on anticoagulation therapy for approximately 5 months and then there was DC'd last September. Patient CTA was positive for pulmonary embolism. Patient also did have a venous Doppler of her bilateral lower extremities. Right leg was positive for DVT left leg was negative for DVT. Of note the patient is morbidly obese and is sedentary in her lifestyle with limited physical activity. Upon examination the patient is resting up in bed on room air does complain of shortness of breath that is significant on exertion and/or extensive conversation. Occasionally she does experience chest discomfort with her shortness of breath. All labs and reports have been reviewed. Review of Systems 14 point review of systems was completed and is negative unless noted above in the HPI. Past Medical History Past Medical History: Atrial Fibrillation, Asthma, Coronary Artery Disease (CAD) , CVA/TIA, Diabetes Mellitus, Fibromyalgia, Hyperlipidemia, Hypertension, Myocardial Infarction (IN), Osteoarthritis (OA), Skin Disorder, Thyroid Disorder Additional Past Medical History / Comment(s): BOTTOM 1/3 HEART DAMAGED-HEART MURMUR, CHRONIC CONSTIPATION,LOWER LEGS RED & PURPLE IN BGENF-VCGHVQ-OMRF VERY DRY,SINUS HEADACHES, HX ANEMIA, HYST in 2013-was told cancer,. 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 CATARACT BLACK. WITH IMPLANTS. HEART CATH X 3 TOTAL 3 STENTS Past Anesthesia/Blood Transfusion Reactions: Motion Sickness Additional Past Anesthesia/Blood Transfusion Reaction / Comment(s): states needs general anesthesia, not IV sedation Date of Last Stent Placement:: UNKNOWN Past Psychological History: Depression Smoking Status: Never smoker Past Alcohol Use History: Rare Additional Past Alcohol Use History / Comment(s): SMOKES AGE 15 TO AGE 20 -WHEN QUIT WAS 1/2 PPD Past Drug Use History: None Reported - Past Family History Mother Family Medical History: Cancer Additional Family Medical History / Comment(s): STATES CA WAS ALL OVER- NOT SURE OF PRIMARY SITE Medications and Allergies Home Medications Medication Instructions Recorded Confirmed Type Cetirizine HCl [Zyrtec] 10 mg PO HS PRN 05/12/14 01/09/17 History Cholecalciferol [Vitamin D3] 5,000 unit PO DAILY 05/12/14 01/09/17 History Isosorbide Mononitrate ER [Imdur] 30 mg PO DAILY 05/12/14 01/09/17 History Lisinopril [Zestril] 10 mg PO DAILY 05/12/14 01/09/17 History Meloxicam [Mobic] 15 mg PO PC-LUNCH 05/12/14 01/09/17 History Metoprolol Tartrate [Lopressor] 25 mg PO BID 05/12/14 01/09/17 History Pravastatin Sodium [Pravachol] 40 mg PO DAILY 05/12/14 01/09/17 History Bisacodyl [Dulcolax] 10 mg PO DAILY 02/17/15 01/09/17 History Cyanocobalamin [Vitamin B-12] 500 mcg PO DAILY 02/17/15 01/09/17 History Fluticasone Nasal [place] [Flonase 1 spray EA NOSTRIL BID PRN 02/17/15 01/09/17 History Nasal [place]] Vitamin E (Dl,Tocopheryl Acet) 400 unit PO DAILY 02/17/15 01/09/17 History [Vitamin E] metFORMIN HCL 1,000 mg PO BID-W/MEALS 02/17/15 01/09/17 History Albuterol Sulfate [Proventil Hfa] 2 puff INHALATION RT-Q4H PRN 02/23/16 History Krill Oil 500 mg PO DAILY 02/23/16 01/09/17 History buPROPion HCL [Wellbutrin SR] 200 mg PO BID 02/23/16 01/09/17 History Famotidine [Pepcid] 20 mg PO BID #60 tab 02/26/16 01/09/17 Rx Ascorbic Acid [Vitamin C] 500 mg PO DAILY 01/09/17 01/09/17 History Clotrimazole Tyree [Mycelex 10 mg MUCOUS MEM 5XD 01/09/17 01/09/17 History Tyree] Fluticasone/Vilanterol [Breo 1 puff INHALATION RT-BID 01/09/17 01/09/17 History Ellipta 200-25 Mcg INH] Levothyroxine Sodium [Tirosint] 88 mcg PO DAILY 01/09/17 01/09/17 History Ranitidine HCl [Zantac] 75 mg PO BID 01/09/17 01/09/17 History Rivaroxaban [Xarelto] 15 mg PO DAILY 01/09/17 01/09/17 History guaiFENesin [Mucinex] 600 mg PO BID 01/09/17 01/09/17 History predniSONE See Taper PO DAILY 01/09/17 01/09/17 History Allergies Allergy/AdvReac Type Severity Reaction Status Date / Time latex Allergy Rash/Hives Verified 01/09/17 15:09 Milk Containing Products AdvReac THRUSH Verified 01/09/17 18:51 [Dairy] Tetracyclines AdvReac YEAST Verified 01/09/17 15:09 INFECTION- PREFERS NOT TO TAKE tramadol AdvReac Nausea & Verified 01/09/17 15:09 Vomiting ENVIRONMENTAL ALLERGIES Allergy SINUS Uncoded 01/09/17 14:48 SYMPTOMS-GRASS TREES,DUST,POLLENS,MOLD Physical Exam Vitals: Vital Signs Temp Pulse Resp BP Pulse Ox 01/10/17 09:00 78 20 131/64 94 L 01/10/17 08:00 97.9 F 78 20 152/80 99 01/10/17 07:00 71 28 H 144/66 99 01/10/17 06:00 64 11 L 134/72 99 01/10/17 05:00 69 28 H 119/65 97 01/10/17 04:00 63 11 L 119/65 99 01/10/17 03:00 63 11 L 113/57 97 01/10/17 02:00 63 10 L 129/65 98 01/10/17 01:00 63 10 L 126/73 98 01/10/17 00:00 66 14 136/62 97 01/09/17 23:06 87 12 150/70 97 01/09/17 23:00 88 10 L 150/70 97 01/09/17 22:00 93 37 H 158/75 96 01/09/17 21:00 100 44 H 174/76 99 01/09/17 20:00 97.5 F L 98 33 H 154/59 98 01/09/17 19:45 98 22 146/83 99 01/09/17 19:30 100 24 146/83 98 01/09/17 19:15 105 H 177/64 95 01/09/17 19:11 98 01/09/17 19:00 93 20 177/64 98 01/09/17 18:45 98 12 177/64 97 01/09/17 18:30 98.0 F 102 H 14 202/85 99 01/09/17 18:15 95 18 173/89 100 01/09/17 18:00 100 42 H 166/88 98 01/09/17 17:51 97.5 F L 94 18 97 01/09/17 17:45 94 156/70 98 01/09/17 17:43 156/70 98 01/09/17 17:09 98 F 01/09/17 16:31 95 18 145/65 97 01/09/17 16:10 98 01/09/17 15:45 95 20 97 01/09/17 15:36 20 01/09/17 14:44 97.9 F 88 16 205/83 97 Intake and Output 01/09/17 01/10/17 01/10/17 22:59 06:59 14:59 Intake Total 670.79 1375.545 382.695 Output Total 900 745 245 Balance -229.21 630.545 137.695 Intake: IV 300 800 300 Sodium Chloride 0.9% 1, 300 800 300 000 ml @ 100 mls/hr IV . Q10H [facility] Rx#:[id number] Intake, IV Titration 245.79 575.545 82.695 Amount Heparin Sodium,Porcine/ 45.79 575.545 82.695 D5w Pmx 25,000 unit In Dextrose/Water 1 500ml. bag @ 17.9 UNITS/KG/HR 45 .79 mls/hr IV .[id number] [facility] Rx#:[id number] Sodium Chloride 0.9% 1, 200 000 ml @ 100 mls/hr IV . Q10H [facility] Rx#:[id number] Oral 125 Output: Urine 900 745 245 Other: Voiding Method Indwelling Catheter Indwelling Catheter Indwelling Catheter # Voids 1 Weight 123.5 kg 125.4 kg GENERAL EXAM: Alert, morbidly obese, comfortable in no apparent distress. HEAD: Normocephalic. EYES: Normal reaction of pupils, equal size. NOSE: Clear with pink turbinates. THROAT: No erythema or exudates. NECK: No masses, no JVD. CHEST: No chest wall deformity. LUNGS: Diminished bilaterally, Equal air entry with no crackles, wheeze, rhonchi or dullness. Bases diminished CVS: S1 and S2 normal with no audible mumurs, regular rhythm. ABDOMEN: No hepatosplenomegaly, normal bowel sounds, no guarding or rigidity. EXTREMITIES: +1-2 edema noted, pedal pulses palpable. SKIN: No rashes CENTRAL NERVOUS SYSTEM: No focal deficits, tone is normal in all 4 extremities. Results - Laboratory Findings CBC and BMP: 01/10/17 04:59 01/10/17 04:59 PT/INR, D-dimer PT 12.5 sec (9.0-12.0) H 01/10/17 04:59 INR 1.3 (<1.2) H 01/10/17 04:59 Abnormal lab findings: Abnormal Labs 01/09/17 01/09/17 01/09/17 15:14 15:14 15:14 RBC Hgb MCHC Lymphocytes # 0.7 L PT INR APTT Sodium 136 L Chloride Carbon Dioxide 20 L BUN 30 H Creatinine 1.20 H Glucose 241 H POC Glucose (mg/dL) Troponin I 0.079 H* Total Protein Albumin Cholesterol LDL Cholesterol, Calc HDL Cholesterol 01/09/17 01/09/17 01/09/17 15:14 17:39 22:22 RBC Hgb MCHC Lymphocytes # PT INR 1.2 H APTT Sodium Chloride Carbon Dioxide BUN Creatinine Glucose POC Glucose (mg/dL) 262 H 216 H Troponin I Total Protein Albumin Cholesterol LDL Cholesterol, Calc HDL Cholesterol 01/09/17 01/09/17 01/10/17 22:24 22:24 04:59 RBC Hgb MCHC Lymphocytes # PT INR APTT >200.0 H* Sodium Chloride Carbon Dioxide BUN Creatinine Glucose POC Glucose (mg/dL) Troponin I 0.052 H* 0.100 H* Total Protein Albumin Cholesterol LDL Cholesterol, Calc HDL Cholesterol 01/10/17 01/10/17 01/10/17 04:59 04:59 04:59 RBC 3.63 L Hgb 10.8 L MCHC 30.9 L Lymphocytes # PT 12.5 H INR 1.3 H APTT 166.6 H* Sodium 135 L Chloride 108 H Carbon Dioxide 20 L BUN 25 H Creatinine Glucose 141 H POC Glucose (mg/dL) Troponin I Total Protein 5.7 L Albumin 3.0 L Cholesterol 206 H LDL Cholesterol, Calc 130 H HDL Cholesterol 65 H 01/10/17 07:21 RBC Hgb MCHC Lymphocytes # PT INR APTT Sodium Chloride Carbon Dioxide BUN Creatinine Glucose POC Glucose (mg/dL) 148 H Troponin I Total Protein Albumin Cholesterol LDL Cholesterol, Calc HDL Cholesterol - Diagnostic Findings CT scan - chest: report reviewed Assessment and Plan Plan: Assessment [place] pulmonary embolism History of pulmonary embolism History of coronary artery disease History of hypertension Hyperlipidemia Diabetes mellitus History of fibromyalgia Morbid obesity Plan Patient should remain in the intensive care unit today. Medications have been reviewed and will be continued as ordered. Cardiology on consult and has switched the patient over to use a result of from heparin. Echo results are currently pending. Continue with pulmonary hygiene, coughing and deep breathing exercises, and supportive care. Supplemental oxygen to maintain oxygen saturations of 92% or better. Continue nebulizer treatments. GI and DVT prophylaxis. We will continue to monitor labs/results and adjust treatment as necessary. Further recommendations pending. I performed an examination of the patient and discussed their management with the nurse practitioner. I have reviewed the nurse practitioner's note and agree with the documented findings and plan of care.
[2017-01-10] MEDS: CYANOCOBALAMIN 500 MCG TAB PO SCH (11:44)
[2017-01-10] MEDS: CHOLECALCIFEROL 1,000 UNIT TAB PO SCH (11:44)
[2017-01-10] MEDS: VITAMIN E (DL,TOCOPHERYL ACET) 400 UNIT CAP PO SCH (11:44)
[2017-01-10] MEDS: ASCORBIC ACID 500 MG TAB PO SCH (11:44)
[2017-01-10 12:44] LABS: Glucose,Whole Blood 221 mg/dL (75-99)
--- NOTE | 2017-01-10 15:55 | P.HPIM ---
History of Present Illness H&P Date: 01/10/17 Chief Complaint: Shortness of breath 61-year-old morbidly obese female one of Dr. Deluca's patient with past medical history of pulmonary embolism February,, CAD, CVA, A. fib, asthma/COPD, fibromyalgia, hypertension hyperlipidemia and hypothyroidism who is known to have chronic neuropathy and eczema along with depression. Patient is known well to Dr. Taylor had ablation therapy for A. fib in the past. Patient was on anticoagulation with warfarin few years ago for A. fib. Patient completed 6 months of anticoagulation for pulmonary embolism and showed. States she felt better for a month but started having symptoms including shortness of breath associated with productive cough. She was treated with antibiotics as well as nebulizing treatment until last 3-4 weeks and the patient 's symptoms became worse. She underwent d-dimer which was positive and ended up getting a CTA of the chest positive for saddle embolism. Patient was called and sent to the emergency department at [facility]. Patient was monitored in the ICU for possible determination. DVT of the lower extremity is positive blood clots in the femoral and popliteal vein. Patient was evaluated at bedside. Endorses shortness of breath on exertion but denies any shortness of breath at rest. She denies any chest pain, palpitations or dizziness. She does feel better than yesterday. Patient was started on heparin anticoagulation yesterday and was transitioned to Xarelto 15 mg twice daily. Review of Systems Constitutional: Denies chills, Denies fever, Denies lethargy, Denies malaise, Denies poor appetite, Denies weakness, Denies weight loss Eyes: denies decreased vision, denies diplopia, denies discharge, denies pain Ears: deny: decreased hearing Ears, nose, mouth and throat: Denies dental pain, Denies headache, Denies nasal discharge, Denies nose pain Cardiovascular: Denies chest pain, endorses decreased exercise tolerance, endorses edema, Denies high blood pressure, Denies irregular heart beat, Denies palpitations, Denies paroxysmal nocturnal dyspnea, Denies rapid heart beat, Denies shortness of breath Respiratory: Denies congestion, Denies cough, Denies cough with sputum, endorses dyspnea, Denies home oxygen, Denies wheezing Gastrointestinal: Denies abdominal pain, Denies change in bowel habits, Denies coffee ground emesis, Denies early satiety, Denies excessive gas, Denies heartburn, Denies hematemesis, Denies hematochezia, Denies loss of appetite, Denies nausea, Denies vomiting Genitourinary: Denies dysuria, Denies flank pain, Denies kidney stones, Denies menorrhagia, Denies urgency, Denies urinary frequency Musculoskeletal: Patient uses cane to mobilize but had significant debility and is unable to walk long distances due to the same, she spent most of the day sitting. Integumentary: Denies rash, Denies wounds, Denies brittle nails, Denies change in hair/nails, Denies darkening of skin Neurological: Denies balance difficulties, Denies change in speech, Denies double vision, Denies gait dysfunction, Denies loss of vision, Denies motor disturbance, Denies numbness, Denies paralysis, Denies paresthesias, Denies seizures Psychiatric: Denies anxiety, Denies depression Endocrine: Denies excessive sweating, Denies excessive thirst, Denies high blood sugars, Denies palpitations Hematologic/Lymphatic: Denies easy bruising, Denies lymphadenopathy Past Medical History Past Medical History: Atrial Fibrillation, Asthma, Coronary Artery Disease (CAD) , CVA/TIA, Diabetes Mellitus, Fibromyalgia, Hyperlipidemia, Hypertension, Myocardial Infarction (LA), Osteoarthritis (OA), Skin Disorder, Thyroid Disorder Additional Past Medical History / Comment(s): BOTTOM 1/3 HEART DAMAGED-HEART MURMUR, CHRONIC CONSTIPATION,LOWER LEGS RED & PURPLE IN [id number] VERY DRY,SINUS HEADACHES, HX ANEMIA, HYST in 2013-was told cancer,. 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.FEET- NUMBNESS IF STANDS FOR MORE THAN 5 MINUTES,STROKE @ AGE 39-MILD PARALYSIS LT SIDE-AFFECTED FACE-LT EYELID Last Myocardial Infarction Date:: UNKNOWN History of Any Multi-Drug Resistant Organisms: None Reported Past Surgical History: Appendectomy, Cardiac Ablation, Cholecystectomy, Heart Catheterization, Heart Catheterization With Stent, Hysterectomy Additional Past Surgical History / Comment(s): PARTIAL HYSTERECTOMY 03/18/14 @ [facility] CATARACT BLACK. WITH IMPLANTS. HEART CATH X 3 TOTAL 3 STENTS Past Anesthesia/Blood Transfusion Reactions: Motion Sickness Additional Past Anesthesia/Blood Transfusion Reaction / Comment(s): states needs general anesthesia, not IV sedation Date of Last Stent Placement:: UNKNOWN Past Psychological History: Depression Smoking Status: Never smoker Past Alcohol Use History: Rare Additional Past Alcohol Use History / Comment(s): SMOKES AGE 15 TO AGE 20 -WHEN QUIT WAS 1/2 PPD Past Drug Use History: None Reported - Past Family History Mother Family Medical History: Cancer Additional Family Medical History / Comment(s): STATES CA WAS ALL OVER- NOT SURE OF PRIMARY SITE Medications and Allergies Home Medications Medication Instructions Recorded Confirmed Type Cetirizine HCl [Zyrtec] 10 mg PO HS PRN 05/12/14 01/09/17 History Cholecalciferol [Vitamin D3] 5,000 unit PO DAILY 05/12/14 01/09/17 History Isosorbide Mononitrate ER [Imdur] 30 mg PO DAILY 05/12/14 01/09/17 History Lisinopril [Zestril] 10 mg PO DAILY 05/12/14 01/09/17 History Meloxicam [Mobic] 15 mg PO PC-LUNCH 05/12/14 01/09/17 History Metoprolol Tartrate [Lopressor] 25 mg PO BID 05/12/14 01/09/17 History Pravastatin Sodium [Pravachol] 40 mg PO DAILY 05/12/14 01/09/17 History Bisacodyl [Dulcolax] 10 mg PO DAILY 02/17/15 01/09/17 History Cyanocobalamin [Vitamin B-12] 500 mcg PO DAILY 02/17/15 01/09/17 History Fluticasone Nasal [place] [Flonase 1 spray EA NOSTRIL BID PRN 02/17/15 01/09/17 History Nasal [place]] Vitamin E (Dl,Tocopheryl Acet) 400 unit PO DAILY 02/17/15 01/09/17 History [Vitamin E] metFORMIN HCL 1,000 mg PO BID-W/MEALS 02/17/15 01/09/17 History Albuterol Sulfate [Proventil Hfa] 2 puff INHALATION RT-Q4H PRN 02/23/16 History Krill Oil 500 mg PO DAILY 02/23/16 01/09/17 History buPROPion HCL [Wellbutrin SR] 200 mg PO BID 02/23/16 01/09/17 History Famotidine [Pepcid] 20 mg PO BID #60 tab 02/26/16 01/09/17 Rx Ascorbic Acid [Vitamin C] 500 mg PO DAILY 01/09/17 01/09/17 History Clotrimazole [place] [Mycelex 10 mg MUCOUS MEM 5XD 01/09/17 01/09/17 History [place]] Fluticasone/Vilanterol [Breo 1 puff INHALATION RT-BID 01/09/17 01/09/17 History Ellipta 200-25 Mcg INH] Levothyroxine Sodium [Tirosint] 88 mcg PO DAILY 01/09/17 01/09/17 History Ranitidine HCl [Zantac] 75 mg PO BID 01/09/17 01/09/17 History Rivaroxaban [Xarelto] 15 mg PO DAILY 01/09/17 01/09/17 History guaiFENesin [Mucinex] 600 mg PO BID 01/09/17 01/09/17 History predniSONE See Taper PO DAILY 01/09/17 01/09/17 History Allergies Allergy/AdvReac Type Severity Reaction Status Date / Time latex Allergy Rash/Hives Verified 01/09/17 15:09 Milk Containing Products AdvReac THRUSH Verified 01/09/17 18:51 [Dairy] Tetracyclines AdvReac YEAST Verified 01/09/17 15:09 INFECTION- PREFERS NOT TO TAKE tramadol AdvReac Nausea & Verified 01/09/17 15:09 Vomiting ENVIRONMENTAL ALLERGIES Allergy SINUS Uncoded 01/09/17 14:48 SYMPTOMS-GRASS TREES,DUST,POLLENS,MOLD Physical Exam Vitals: Vital Signs Temp Pulse Resp BP Pulse Ox 01/10/17 11:00 64 15 100/54 94 L 01/10/17 10:00 71 23 117/68 95 01/10/17 09:00 78 20 131/64 94 L 01/10/17 08:00 97.9 F 78 20 152/80 99 01/10/17 07:00 71 28 H 144/66 99 01/10/17 06:00 64 11 L 134/72 99 01/10/17 05:00 69 28 H 119/65 97 01/10/17 04:00 63 11 L 119/65 99 01/10/17 03:00 63 11 L 113/57 97 01/10/17 02:00 63 10 L 129/65 98 01/10/17 01:00 63 10 L 126/73 98 01/10/17 00:00 66 14 136/62 97 01/09/17 23:06 87 12 150/70 97 01/09/17 23:00 88 10 L 150/70 97 01/09/17 22:00 93 37 H 158/75 96 01/09/17 21:00 100 44 H 174/76 99 01/09/17 20:00 97.5 F L 98 33 H 154/59 98 01/09/17 19:45 98 22 146/83 99 01/09/17 19:30 100 24 146/83 98 01/09/17 19:15 105 H 177/64 95 01/09/17 19:11 98 01/09/17 19:00 93 20 177/64 98 01/09/17 18:45 98 12 177/64 97 01/09/17 18:30 98.0 F 102 H 14 202/85 99 01/09/17 18:15 95 18 173/89 100 01/09/17 18:00 100 42 H 166/88 98 01/09/17 17:51 97.5 F L 94 18 97 01/09/17 17:45 94 156/70 98 01/09/17 17:43 156/70 98 01/09/17 17:09 98 F 01/09/17 16:31 95 18 145/65 97 01/09/17 16:10 98 01/09/17 15:45 95 20 97 01/09/17 15:36 20 01/09/17 14:44 97.9 F 88 16 205/83 97 Intake and Output 01/09/17 01/10/17 01/10/17 22:59 06:59 14:59 Intake Total 670.79 1375.545 582.695 Output Total 900 745 377 Balance -229.21 630.545 205.695 Intake: IV 300 800 500 Sodium Chloride 0.9% 1, 300 800 500 000 ml @ 100 mls/hr IV . Q10H [facility] Rx#:[id number] Intake, IV Titration 245.79 575.545 82.695 Amount Heparin Sodium,Porcine/ 45.79 575.545 82.695 D5w Pmx 25,000 unit In Dextrose/Water 1 500ml. bag @ 17.9 UNITS/KG/HR 45 .79 mls/hr IV .[id number] [facility] Rx#:[id number] Sodium Chloride 0.9% 1, 200 000 ml @ 100 mls/hr IV . Q10H [facility] Rx#:[id number] Oral 125 Output: Urine 900 745 377 Other: Voiding Method Indwelling Catheter Indwelling Catheter Indwelling Catheter # Voids 1 Weight 123.5 kg 125.4 kg - Constitutional General appearance: cooperative, no acute distress, obese - EENT Eyes: anicteric sclerae, PERRLA, normal appearance ENT: hearing grossly normal - Neck Neck: no lymphadenopathy, normal ROM, no other, no rigidity, no stridor, no thyromegaly - Respiratory Respiratory: bilateral: CTA, decreased breath sound at bases negative: dullness , rales, rhonchi - Cardiovascular Rhythm: regular Heart sounds: normal: S1, S2 Abnormal Heart Sounds: no systolic murmur, no diastolic murmur, no rub, no S3 Gallop, no S4 Gallop, no click, no other - Gastrointestinal General gastrointestinal: normal bowel sounds, soft - Integumentary Integumentary: Bilateral swelling lower extremity right greater than left with overlying dermatitis - Neurologic Neurologic: CNII-XII intact - Musculoskeletal Musculoskeletal: gait not assessed, strength equal bilaterally - Psychiatric Psychiatric: A&O x's 3, appropriate affect Results CBC & Chem 7: 01/10/17 04:59 01/10/17 04:59 Labs: Abnormal Lab Results - Last 24 Hours (Table) 01/09/17 01/09/17 01/09/17 Range/Units 15:14 15:14 15:14 RBC (3.80-5.40) m/uL Hgb (11.4-16.0) gm/dL MCHC (31.0-37.0) g/dL Lymphocytes # 0.7 L (1.0-4.8) k/uL PT (9.0-12.0) sec INR (<1.2) APTT (22.0-30.0) sec Sodium 136 L (137-145) mmol/L Chloride (98-107) mmol/L Carbon Dioxide 20 L (22-30) mmol/L BUN 30 H (7-17) mg/dL Creatinine 1.20 H (0.52-1.04) mg/dL Glucose 241 H (74-99) mg/dL POC Glucose (mg/dL) (75-99) mg/dL Troponin I 0.079 H* (0.000-0.034) ng/mL Total Protein (6.3-8.2) g/dL Albumin (3.5-5.0) g/dL Cholesterol (<200) mg/dL LDL Cholesterol, Calc (0-99) mg/dL HDL Cholesterol (40-60) mg/dL 01/09/17 01/09/17 01/09/17 Range/Units 15:14 17:39 22:22 RBC (3.80-5.40) m/uL Hgb (11.4-16.0) gm/dL MCHC (31.0-37.0) g/dL Lymphocytes # (1.0-4.8) k/uL PT (9.0-12.0) sec INR 1.2 H (<1.2) APTT (22.0-30.0) sec Sodium (137-145) mmol/L Chloride (98-107) mmol/L Carbon Dioxide (22-30) mmol/L BUN (7-17) mg/dL Creatinine (0.52-1.04) mg/dL Glucose (74-99) mg/dL POC Glucose (mg/dL) 262 H 216 H (75-99) mg/dL Troponin I (0.000-0.034) ng/mL Total Protein (6.3-8.2) g/dL Albumin (3.5-5.0) g/dL Cholesterol (<200) mg/dL LDL Cholesterol, Calc (0-99) mg/dL HDL Cholesterol (40-60) mg/dL 01/09/17 01/09/17 01/10/17 Range/Units 22:24 22:24 04:59 RBC (3.80-5.40) m/uL Hgb (11.4-16.0) gm/dL MCHC (31.0-37.0) g/dL Lymphocytes # (1.0-4.8) k/uL PT (9.0-12.0) sec INR (<1.2) APTT >200.0 H* (22.0-30.0) sec Sodium (137-145) mmol/L Chloride (98-107) mmol/L Carbon Dioxide (22-30) mmol/L BUN (7-17) mg/dL Creatinine (0.52-1.04) mg/dL Glucose (74-99) mg/dL POC Glucose (mg/dL) (75-99) mg/dL Troponin I 0.052 H* 0.100 H* (0.000-0.034) ng/mL Total Protein (6.3-8.2) g/dL Albumin (3.5-5.0) g/dL Cholesterol (<200) mg/dL LDL Cholesterol, Calc (0-99) mg/dL HDL Cholesterol (40-60) mg/dL 01/10/17 01/10/17 01/10/17 Range/Units 04:59 04:59 04:59 RBC 3.63 L (3.80-5.40) m/uL Hgb 10.8 L (11.4-16.0) gm/dL MCHC 30.9 L (31.0-37.0) g/dL Lymphocytes # (1.0-4.8) k/uL PT 12.5 H (9.0-12.0) sec INR 1.3 H (<1.2) APTT 166.6 H* (22.0-30.0) sec Sodium 135 L (137-145) mmol/L Chloride 108 H (98-107) mmol/L Carbon Dioxide 20 L (22-30) mmol/L BUN 25 H (7-17) mg/dL Creatinine (0.52-1.04) mg/dL Glucose 141 H (74-99) mg/dL POC Glucose (mg/dL) (75-99) mg/dL Troponin I (0.000-0.034) ng/mL Total Protein 5.7 L (6.3-8.2) g/dL Albumin 3.0 L (3.5-5.0) g/dL Cholesterol 206 H (<200) mg/dL LDL Cholesterol, Calc 130 H (0-99) mg/dL HDL Cholesterol 65 H (40-60) mg/dL 01/10/17 Range/Units 07:21 RBC (3.80-5.40) m/uL Hgb (11.4-16.0) gm/dL MCHC (31.0-37.0) g/dL Lymphocytes # (1.0-4.8) k/uL PT (9.0-12.0) sec INR (<1.2) APTT (22.0-30.0) sec Sodium (137-145) mmol/L Chloride (98-107) mmol/L Carbon Dioxide (22-30) mmol/L BUN (7-17) mg/dL Creatinine (0.52-1.04) mg/dL Glucose (74-99) mg/dL POC Glucose (mg/dL) 148 H (75-99) mg/dL Troponin I (0.000-0.034) ng/mL Total Protein (6.3-8.2) g/dL Albumin (3.5-5.0) g/dL Cholesterol (<200) mg/dL LDL Cholesterol, Calc (0-99) mg/dL HDL Cholesterol (40-60) mg/dL Thrombosis Risk Factor Assmnt - DVT/VTE Prophylaxis DVT/VTE Prophylaxis: Pharmacologic Prophylaxis ordered - Choose All That Apply Any of the Below Risk Factors Present?: Yes Each Factor Represents 1 point: Obesity (BMI >25), Swollen legs (current) Each Risk Factor Represents 2 Points: Age 61-74 years, Patient confined to bed Each Risk Factor Represents 3 Points: History of DVT/PE Thrombosis Risk Factor Assessment Total Risk Factor Score: 9 Thrombosis Risk Factor Assessment Level: High Risk Assessment and Plan Plan: 1 acute saddle pulmonary embolism with right lower extremity DVT: Patient was on heparin drip was started on Xarelto 15 mg twice a day for 3 weeks then 20 mg once a day for lifetime. Patient was off anticoagulation since to do but was symptomatic with shortness of breath associated with cough and generalized debility. Since patient has a new saddle pulmonary embolism with significant deep in the thrombosis in the right lower extremity patient would need anticoagulation for lifetime. Continue ICU monitoring for possible determination. Patient is currently on room air saturating well. 2 dyspnea and shortness of breath: Most likely from PE try to exclude other possibility with patient history of asthma/COPD and heart disease will consult pulmonary and cardiology continue updraft treatment continue aggressive treatment for heart disease and A. fib as well. 3 A. fib: Post ablation remain on Lopressor 25 g twice a day patient is currently in sinus arrhythmia 4 CAD: Post LA, patient is seeing cardiology remain on beta go along with Imdur and lisinopril 10 mg daily. 5 diabetes: Hold metformin continue insulin Accu-Chek with sliding scales coverage and be done. 6 asthma/COPD: Continue DuoNeb for when necessary shortness of breath. Continue prednisone 60 mg 7 hypothyroidism: Remain on Synthroid 75 g daily. 8 iron deficiency anemia: Has been on iron supplement regularly. 9 hypertension: On Zestril 10 mg a day and Lopressor 25 g twice a day. 10 hyperlipidemia: Remain on Pravachol 40 mg a day. 11 depression: Has been on Wellbutrin SR 200 mg twice a day. 12 GI prophylaxis: Patient will be on Pepcid 20 mg daily. 13 DVT prophylaxis: Continue Xarelto CODE STATUS: Full code. Expectation from this admission: Patient is in the hospital for over 2 nights.
[2017-01-10] MEDS: ACETAMINOPHEN TAB 325 MG TAB PO PRN (17:31)
[2017-01-10 17:53] LABS: Glucose,Whole Blood 274 mg/dL (75-99)
[2017-01-10 20:16] LABS: Glucose,Whole Blood 284 mg/dL (75-99)
[2017-01-10] MEDS: LORATADINE 10 MG TAB PO SCH (20:17)
[2017-01-10] MEDS: SODIUM CHLORIDE 0.65% NASAL SPRAY 44 ML BTL NASAL PRN (20:18)
[2017-01-10 22:02] LABS: Glucose,Whole Blood 220 mg/dL (75-99)
[2017-01-11] MEDS: CLOTRIMAZOLE TROCHE 10 MG TROCHE MUCOUS MEM SCH ×6 (00:46→23:40)
[2017-01-11] MEDS: ACETAMINOPHEN TAB 325 MG TAB PO PRN ×2 (01:15→16:28)
[2017-01-11 05:20] LABS: Basophils % (A) 0 %; Eosinophils % (A) 0 %; HCT 36.4 % (34.0-46.0); HDW 2.34; HGB 11.3 gm/dL (11.4-16.0); Hypochromasia Slight; Luc % (Auto) 2; Lymphocytes # (A) 1.8 k/uL (1.0-4.8); Lymphocytes % (A) 16 %; MCH 29.2 pg (25.0-35.0); MCHC 31.1 g/dL (31.0-37.0); MCV 93.9 fL (80.0-100.0); Monocytes # (A) 0.6 k/uL (0-1.0); Monocytes % (A) 6 %; Neutrophils # (A) 8.3 k/uL (1.3-7.7); Neutrophils % (A) 76 %; RBC 3.88 m/uL (3.80-5.40); RDW 15.2 % (11.5-15.5); WBC 10.9 k/uL (3.8-10.6)
[2017-01-11 05:35] LABS: INR 1.3 (<1.2); Prothrombin Time 13.2 sec (9.0-12.0)
[2017-01-11 05:52] LABS: ALT 25 U/L (9-52); AST 17 U/L (14-36); Alkaline Phosphatase 70 U/L (38-126); Anion Gap 9 mmol/L; Blood Urea Nitrogen 30 mg/dL (7-17); Calcium 9.4 mg/dL (8.4-10.2); Carbon Dioxide 19 mmol/L (22-30); Chloride 109 mmol/L (98-107); Glucose 142 mg/dL (74-99); Non-African American GFR(MDRD) 56 (>60 ml/min/1.73 sqM); Sodium 137 mmol/L (137-145); Total Bilirubin 0.4 mg/dL (0.2-1.3); Total Protein 5.8 g/dL (6.3-8.2)
[2017-01-11] MEDS: LEVOTHYROXINE 88 MCG TAB PO SCH (06:38)
[2017-01-11] MEDS: IPRATROPIUM-ALBUTEROL 3 ML NEB INHALATION SCH ×4 (07:30→20:20)
[2017-01-11 07:36] LABS: Glucose,Whole Blood 127 mg/dL (75-99)
[2017-01-11] MEDS: INSULIN LISPRO (humaLOG) 300 UNIT/3 ML VIAL SQ SCH ×4 (09:12→20:45)
[2017-01-11] MEDS: guaiFENesin 600 MG TABLET.ER PO SCH ×2 (09:13→19:47)
[2017-01-11] MEDS: RIVAROXABAN 15 MG TAB PO SCH ×2 (09:13→17:30)
[2017-01-11] MEDS: predniSONE 20 MG TAB PO SCH (09:13)
[2017-01-11] MEDS: ATORVASTATIN 40 MG TAB PO SCH (09:14)
[2017-01-11] MEDS: BISACODYL 5 MG TABLET.DR PO SCH (09:14)
[2017-01-11] MEDS: METOPROLOL TARTRATE 25 MG TAB PO SCH ×2 (09:14→19:47)
[2017-01-11] MEDS: buPROPion SR 100 MG TABLET.ER PO SCH ×2 (09:15→19:47)
[2017-01-11] MEDS: FAMOTIDINE 20 MG TAB PO SCH (09:15)
[2017-01-11] MEDS: SODIUM CHLORIDE 0.65% NASAL SPRAY 44 ML BTL NASAL PRN (10:00)
--- NOTE | 2017-01-11 11:09 | P.PN ---
Subjective Progress Note Date: 01/11/17 Principal diagnosis: Pulmonary embolism We are covering today for Dr. Higginbotham. This is a very pleasant 61-year-old female patient who follows with Dr. Deluca as her primary care physician. She has a history of hypertension, hyperlipidemia, hypothyroidism, chronic neuropathy, depression, atrial fibrillation with previous ablation. She also has a history of previous pulmonary embolism in February 2016. She was treated with anticoagulants for approximately least 6 months. He presented here on 01/09/2017 with complaints of increasing shortness of breath and congestion for approximately 6 weeks with worsening shortness of breath. She had failed outpatient treatment for bronchitis and pneumonia. She was found to have a recurrent pulmonary embolism. A CT angiogram revealed a saddle pulmonary embolus with large bilateral segmental and sub segmental clot burden. She been initiated on a heparin drip and placed in the intensive care unit. Echocardiogram did not reveal any significant right ventricular strain. She is seen today in follow- up in the ICU. She is awake and alert in no acute distress. She denies any shortness of breath, cough or congestion. She has since been converted to Xarelto. She is maintaining O2 saturations in the 90s on room air. Objective - Vital Signs Vital signs: Vital Signs Temp 97.5 F L 01/11/17 08:00 Pulse 73 01/11/17 10:00 Resp 20 01/11/17 10:00 BP 131/66 01/11/17 10:00 Pulse Ox 93 L 01/11/17 10:00 Intake & Output 01/10/17 01/11/17 01/11/17 18:59 06:59 18:59 Intake Total 1332.695 700 600 Output Total 1082 930 280 Balance 250.695 -230 320 Weight 125 kg Intake: IV 500 Sodium Chloride 0.9% 1, 500 000 ml @ 100 mls/hr IV . Q10H [facility] Rx#:[id number] Intake, IV Titration 82.695 Amount Heparin Sodium,Porcine/ 82.695 D5w Pmx 25,000 unit In Dextrose/Water 1 500ml. bag @ 17.9 UNITS/KG/HR 45 .79 mls/hr IV .[id number] Rx#:[id number] Oral 750 700 600 Output: Urine 1082 930 280 Other: Voiding Method Indwelling Catheter Indwelling Catheter Indwelling Catheter # Voids 1 # Bowel Movements 1 - Exam GENERAL EXAM: Obese. Alert, comfortable in no apparent distress. HEAD: Normocephalic. EYES: Normal reaction of pupils, equal size. NOSE: Clear with pink turbinates. THROAT: No erythema or exudates. NECK: No masses, no JVD. CHEST: No chest wall deformity. LUNGS: Equal air entry with no crackles, wheeze, rhonchi or dullness. CVS: S1 and S2 normal with no audible murmurs, regular rhythm. ABDOMEN: No hepatosplenomegaly, normal bowel sounds, no guarding or rigidity. SPINE: No scoliosis or deformity SKIN: No rashes CENTRAL NERVOUS SYSTEM: No focal deficits, tone is normal in all 4 extremities. Extremities: There is trace peripheral edema. Changes of chronic venous stasis. Peripheral pulses are intact. - Labs CBC & Chem 7: 01/11/17 04:52 01/11/17 04:52 Labs: Abnormal Lab Results - Last 24 Hours (Table) 01/10/17 01/10/17 01/10/17 Range/Units 12:31 13:22 17:29 WBC (3.8-10.6) k/uL Hgb (11.4-16.0) gm/dL Neutrophils # (1.3-7.7) k/uL PT (9.0-12.0) sec INR (<1.2) APTT 39.6 H (22.0-30.0) sec Chloride (98-107) mmol/L Carbon Dioxide (22-30) mmol/L BUN (7-17) mg/dL Glucose (74-99) mg/dL POC Glucose (mg/dL) 221 H 274 H (75-99) mg/dL Total Protein (6.3-8.2) g/dL Albumin (3.5-5.0) g/dL 01/10/17 01/10/17 01/11/17 Range/Units 20:13 21:59 04:52 WBC 10.9 H (3.8-10.6) k/uL Hgb 11.3 L (11.4-16.0) gm/dL Neutrophils # 8.3 H (1.3-7.7) k/uL PT (9.0-12.0) sec INR (<1.2) APTT (22.0-30.0) sec Chloride (98-107) mmol/L Carbon Dioxide (22-30) mmol/L BUN (7-17) mg/dL Glucose (74-99) mg/dL POC Glucose (mg/dL) 284 H 220 H (75-99) mg/dL Total Protein (6.3-8.2) g/dL Albumin (3.5-5.0) g/dL 01/11/17 01/11/17 01/11/17 Range/Units 04:52 04:52 07:34 WBC (3.8-10.6) k/uL Hgb (11.4-16.0) gm/dL Neutrophils # (1.3-7.7) k/uL PT 13.2 H (9.0-12.0) sec INR 1.3 H (<1.2) APTT (22.0-30.0) sec Chloride 109 H (98-107) mmol/L Carbon Dioxide 19 L (22-30) mmol/L BUN 30 H (7-17) mg/dL Glucose 142 H (74-99) mg/dL POC Glucose (mg/dL) 127 H (75-99) mg/dL Total Protein 5.8 L (6.3-8.2) g/dL Albumin 3.1 L (3.5-5.0) g/dL Assessment and Plan Plan: Impression: #1 Dyspnea secondary to an acute saddle pulmonary embolism. Transitioned from heparin drip to Xarelto. Improved. Maintain O2 saturations in the 90s on room air. #2 Right lower extremity DVT. #3 Morbid obesity. #4 Coronary artery disease with previous myocardial infarction. #5 Atrial fibrillation with previous ablation. #6 Diabetes mellitus. #7 Hypothyroidism. #8 Hypertension. #9 Hyperlipidemia. #10 History of depression. Plan: The patient was seen and evaluated by Dr. Taveras. She is stable from the pulmonary and critical care standpoint. We'll transfer her out of the intensive care unit today. She remains hemodynamically stable. We'll continue to anticoagulate her with Xarelto. Will increase her activity as tolerated.
--- NOTE | 2017-01-11 11:30 | PN ---
PROGRESS NOTE Mrs. Oconnell is a 61-year-old female with a known history of paroxysmal atrial fibrillation status post ablation, history of prior pulmonary embolism, history of cerebrovascular accident, who presented with progressive dyspnea, was diagnosed with a saddle pulmonary embolism. She received anticoagulation. She is feeling better today. She has no chest pain. She has no dizziness or palpitation. She continues to be in sinus mechanism and hemodynamically stable. MEDICATION: At this time include: 1. Xarelto 15 mg twice a day. 2. Lipitor 40 mg daily. 3. Insulin. 4. Isosorbide mononitrate 30 mg daily. 5. Metoprolol tartrate 25 mg twice a day. 6. Lisinopril 10 mg daily. 7. Prednisone. PHYSICAL EXAMINATION: Blood pressure 130/60 with a heart in the 70s. LUNGS: Clear. Heart is regular rate and rhythm S1, S2. No S3 with systolic murmur. ABDOMEN: Soft, obese, nontender. Extremities no significant edema. LAB DATA: BUN and creatinine 31.0. Hemoglobin of 11.3. Her echocardiogram showed an ejection fraction of 50% to 55%. Her right-sided pressure was normal. IMPRESSION: 1. Status post pulmonary embolism with right-sided deep vein thrombosis. 2. Prior history of atrial fibrillation, status post ablation, remain in sinus mechanism. 3. Hypertension. 4. Hyperlipidemia. 5. Diabetes mellitus. 6. History of coronary artery disease. RECOMMENDATION: From the cardiac standpoint, she is stable. I will expect she will be transferred to telemetry floor. Her level of activity will be increased and if she remains stable, I would expect she should be able to be discharged home soon. MMODL / IJN: [id number] /
[2017-01-11 11:42] LABS: Glucose,Whole Blood 220 mg/dL (75-99)
[2017-01-11] MEDS: VITAMIN E (DL,TOCOPHERYL ACET) 400 UNIT CAP PO SCH (12:35)
[2017-01-11] MEDS: LISINOPRIL 10 MG TAB PO SCH (12:36)
[2017-01-11] MEDS: CHOLECALCIFEROL 1,000 UNIT TAB PO SCH (12:36)
[2017-01-11] MEDS: ASCORBIC ACID 500 MG TAB PO SCH (12:36)
[2017-01-11] MEDS: CYANOCOBALAMIN 500 MCG TAB PO SCH (12:37)
[2017-01-11] MEDS: ISOSORBIDE MONONITRATE ER 30 MG TAB.ER.24H PO SCH (12:41)
[2017-01-11] MEDS ORDERED: ARTIFICIAL TEARS-HYPROMELLOSE DROPS 15 ML BTL BOTH EYES PRN (16:26)
[2017-01-11 17:24] LABS: Glucose,Whole Blood 261 mg/dL (75-99)
--- NOTE | 2017-01-11 17:33 | P.PN ---
Subjective Progress Note Date: 01/11/17 61-year-old morbidly obese female one of Dr. Deluca's patient with past medical history of pulmonary embolism February,, CAD, CVA, A. fib, asthma/COPD, fibromyalgia, hypertension hyperlipidemia and hypothyroidism who is known to have chronic neuropathy and eczema along with depression. Patient is known well to Dr. Taylor had ablation therapy for A. fib in the past. Patient was on anticoagulation with warfarin few years ago for A. fib. Patient completed 6 months of anticoagulation for pulmonary embolism and showed. States she felt better for a month but started having symptoms including shortness of breath associated with productive cough. She was treated with antibiotics as well as nebulizing treatment until last 3-4 weeks and the patient 's symptoms became worse. She underwent d-dimer which was positive and ended up getting a CTA of the chest positive for saddle embolism. Patient was called and sent to the emergency department at [facility]. Patient was monitored in the ICU for possible determination. DVT of the lower extremity is positive blood clots in the femoral and popliteal vein. Patient was evaluated at bedside. Endorses shortness of breath on exertion but denies any shortness of breath at rest. She denies any chest pain, palpitations or dizziness. She does feel better than yesterday. Patient was started on heparin anticoagulation yesterday and was transitioned to Xarelto 15 mg twice daily. 01/11: Patient was moved out of the ICU she is sitting up in the chair or distress, she was seen earlier by hematology oncology was recommended for her to follow-up with him as an outpatient she is to continue with anticoagulation for life however she will go for hypercoagulable workup as an outpatient. Patient denies any chest pain at this time she continues to be somewhat dyspneic on exertion, she denies any pleurisy she denies any hemoptysis. Objective - Vital Signs Vital signs: Vital Signs Temp 97.5 F L 01/11/17 08:00 Pulse 65 01/11/17 11:00 Resp 32 H 01/11/17 11:00 BP 130/74 01/11/17 11:00 Pulse Ox 96 01/11/17 11:00 Intake & Output 01/10/17 01/11/17 01/11/17 18:59 06:59 18:59 Intake Total 1332.695 700 600 Output Total 1082 930 280 Balance 250.695 -230 320 Weight 125 kg Intake: IV 500 Sodium Chloride 0.9% 1, 500 000 ml @ 100 mls/hr IV . Q10H [facility] Rx#:[id number] Intake, IV Titration 82.695 Amount Heparin Sodium,Porcine/ 82.695 D5w Pmx 25,000 unit In Dextrose/Water 1 500ml. bag @ 17.9 UNITS/KG/HR 45 .79 mls/hr IV .[id number] [facility] Rx#:[id number] Oral 750 700 600 Output: Urine 1082 930 280 Other: Voiding Method Indwelling Catheter Indwelling Catheter Indwelling Catheter # Voids 1 # Bowel Movements 1 - Exam - Constitutional General appearance: cooperative, no acute distress, obese - EENT Eyes: anicteric sclerae, PERRLA, normal appearance ENT: hearing grossly normal - Neck Neck: no lymphadenopathy, normal ROM, no other, no rigidity, no stridor, no thyromegaly - Respiratory Respiratory: bilateral: CTA, decreased breath sound at bases negative: dullness , rales, rhonchi - Cardiovascular Rhythm: regular Heart sounds: normal: S1, S2 Abnormal Heart Sounds: no systolic murmur, no diastolic murmur, no rub, no S3 Gallop, no S4 Gallop, no click, no other - Gastrointestinal General gastrointestinal: normal bowel sounds, soft - Integumentary Integumentary: Bilateral swelling lower extremity right greater than left with overlying dermatitis - Neurologic Neurologic: CNII-XII intact - Musculoskeletal Musculoskeletal: gait not assessed, strength equal bilaterally - Psychiatric Psychiatric: A&O x's 3, appropriate affect - Labs CBC & Chem 7: 01/11/17 04:52 01/11/17 04:52 Labs: Abnormal Lab Results - Last 24 Hours (Table) 01/10/17 01/10/17 01/10/17 Range/Units 13:22 17:29 20:13 WBC (3.8-10.6) k/uL Hgb (11.4-16.0) gm/dL Neutrophils # (1.3-7.7) k/uL PT (9.0-12.0) sec INR (<1.2) APTT 39.6 H (22.0-30.0) sec Chloride (98-107) mmol/L Carbon Dioxide (22-30) mmol/L BUN (7-17) mg/dL Glucose (74-99) mg/dL POC Glucose (mg/dL) 274 H 284 H (75-99) mg/dL Total Protein (6.3-8.2) g/dL Albumin (3.5-5.0) g/dL 01/10/17 01/11/17 01/11/17 Range/Units 21:59 04:52 04:52 WBC 10.9 H (3.8-10.6) k/uL Hgb 11.3 L (11.4-16.0) gm/dL Neutrophils # 8.3 H (1.3-7.7) k/uL PT 13.2 H (9.0-12.0) sec INR 1.3 H (<1.2) APTT (22.0-30.0) sec Chloride (98-107) mmol/L Carbon Dioxide (22-30) mmol/L BUN (7-17) mg/dL Glucose (74-99) mg/dL POC Glucose (mg/dL) 220 H (75-99) mg/dL Total Protein (6.3-8.2) g/dL Albumin (3.5-5.0) g/dL 01/11/17 01/11/17 01/11/17 Range/Units 04:52 07:34 11:40 WBC (3.8-10.6) k/uL Hgb (11.4-16.0) gm/dL Neutrophils # (1.3-7.7) k/uL PT (9.0-12.0) sec INR (<1.2) APTT (22.0-30.0) sec Chloride 109 H (98-107) mmol/L Carbon Dioxide 19 L (22-30) mmol/L BUN 30 H (7-17) mg/dL Glucose 142 H (74-99) mg/dL POC Glucose (mg/dL) 127 H 220 H (75-99) mg/dL Total Protein 5.8 L (6.3-8.2) g/dL Albumin 3.1 L (3.5-5.0) g/dL Assessment and Plan Plan: Assessment and Plan Plan: 1 acute saddle pulmonary embolism with right lower extremity DVT. started on Xarelto 15 mg twice a day for 3 weeks then 20 mg once a day for lifetime. Patient was off anticoagulation since to do but was symptomatic with shortness of breath associated with cough and generalized debility. Since patient has a new saddle pulmonary embolism with significant deep in the thrombosis in the right lower extremity patient would need anticoagulation for lifetime. Continue ICU monitoring for possible determination. Patient is currently on room air saturating well. 2 dyspnea and shortness of breath: Most likely from PE try to exclude other possibility with patient history of asthma/COPD and heart disease will consult pulmonary and cardiology continue updraft treatment continue aggressive treatment for heart disease and A. fib as well. 3 A. fib: Post ablation remain on Lopressor 25 g twice a day patient is currently in sinus arrhythmia 4 CAD: Post [place], patient is seeing cardiology remain on beta go along with Imdur and lisinopril 10 mg daily. 5 diabetes: Hold metformin continue insulin Accu-Chek with sliding scales coverage and be done. 6 asthma/COPD: Continue DuoNeb for when necessary shortness of breath. Continue prednisone 60 mg 7 hypothyroidism: Remain on Synthroid 75 g daily. 8 iron deficiency anemia: Has been on iron supplement regularly. 9 hypertension: On Zestril 10 mg a day and Lopressor 25 g twice a day. 10 hyperlipidemia: Remain on Pravachol 40 mg a day. 11 depression: Has been on Wellbutrin SR 200 mg twice a day. 12 GI prophylaxis: Patient will be on Pepcid 20 mg daily. 13 DVT prophylaxis: Continue Xarelto CODE STATUS: Full code.
[2017-01-11] MEDS: LORATADINE 10 MG TAB PO SCH (19:47)
--- NOTE | 2017-01-11 20:37 | CONS ---
CONSULTATION DATE OF CONSULTATION: January 11, 2017. REASON FOR CONSULTATION: Reason for consultation is pulmonary emboli. CHIEF COMPLAINT: Short of breath. HISTORY OF PRESENT ILLNESS: Mrs. Oconnell is a very pleasant 61 years old lady who is known to have chronic back issues and difficulty to ambulate. She had spontaneous pulmonary emboli back in February of last year and she was anticoagulated for about 6 months and then subsequent anticoagulation was discontinued. About a month or so after that she started to experience a worsening dyspnea and which had got significantly worsened and so she came into the emergency department and she had CT angiogram of the chest on 01/09/2017, which revealed a saddle pulmonary embolus with large bilateral segmental and subsegmental thrombosis. The patient ended up being admitted to the intensive care unit initially and she was started on anticoagulation and now subsequently transferred to the floor. She is currently on Xarelto and tolerating it reasonably well. She did have a venous Doppler of her lower extremities which revealed evidence of deep venous thrombosis involving the right lower extremity. The patient has had significant arthritic issue and back pain. She cannot ambulate very well and she is overweight. However, there is no recent surgery or prolonged travel trip or immobilization or other obvious provocative factor for her recurrent deep venous thrombosis and pulmonary emboli and her previous one also happened without any obvious provocative factor. She continues to have shortness of breath. She has some cough. No dysphagia, nausea, or vomiting. She has chronic swelling in her right lower extremity over the last 10 years. She has chronic back pain. No dysphagia, nausea, vomiting, or change in her bowel habits. No melena or hematochezia, hematuria, hemoptysis, hematemesis or epistaxis. PAST MEDICAL HISTORY: As stated she has a history of PE which was spontaneous is 2015. She has coronary artery disease. She has a history of atrial fibrillation in the past, asthma, COPD, morbid obesity, fibromyalgia, hypertension, hypothyroidism, neuropathies, eczema, and depression. She had a partial hysterectomy in the past, cataract surgery, and heart catheterization with 3 stents placement. FAMILY HISTORY: Negative for deep venous thrombosis or pulmonary emboli. However, positive for malignancy, but she is very not specific about account of malignancy and family members involved. REVIEW OF SYSTEMS: As stated above in history of present illness. Otherwise negative. MEDICATIONS: Medications and allergies are reviewed in her electronic medical record. PHYSICAL EXAMINATION: She is alert, oriented x3. She does not appear to be in distress. She is overweight. Her vital signs are temperature 97.5, afebrile, pulse is 65 regular, respiration is 20, blood pressure 131/66. HEENT: Normocephalic, atraumatic. No obvious icterus. NECK: Supple, chest equal expansion bilaterally. LUNGS: Clear to auscultation and percussion. HEART: Regular rate and rhythm. ABDOMEN: Obese, soft. No obvious organomegaly or ascites. Extremities revealed 1+ edema in the left leg and 2+ edema in the right leg all the way up to her thigh. Lymphatics: No lymphadenopathy or enlarge supraclavicular or cervical node. LABORATORY DATA: WBC 10.9, hemoglobin 11.3, hematocrit 36.4, platelets are 206. Sodium 137, potassium 5, chloride is 109, CO2 is 19, BUN is 30, creatinine is 1, AST is 17, ALT is 25, total bilirubin 0.4, and alkaline phosphatase is 70. IMPRESSION: 1. Recurrent saddle pulmonary emboli other than her overweight and chronic back pain with limited ambulation. There is no other provocative factor. This is the second event. 2. Multiple other comorbidities as stated above. RECOMMENDATION: 1. I would recommend long-term anticoagulation as long as there is no contraindication to it. She is currently on Xarelto and I would recommend to continue with that. 2. May consider hypercoagulable workup, which could be done in the outpatient setting, but regardless of the hypercoagulopathy workup, the patient is felt to be a candidate for long-term anticoagulation as long as there is no contraindication to it. 3. As long as she continues to have significant issue with ambulation related to her back pain and her morbid obesity she will require long-term anticoagulation. 4. The above was discussed with the patient and family at bedside and I have answered all her questions. Thank you very much for asking me to participate in the care of this nice lady. MMODL / IJN: [id number] /
[2017-01-11 20:44] LABS: Glucose,Whole Blood 261 mg/dL (75-99)
[2017-01-12] MEDS: ZOLPIDEM 5 MG TAB PO PRN ×2 (01:02→20:49)
[2017-01-12] MEDS: CLOTRIMAZOLE TROCHE 10 MG TROCHE MUCOUS MEM SCH ×4 (06:10→20:49)
[2017-01-12] MEDS: LEVOTHYROXINE 88 MCG TAB PO SCH (06:10)
[2017-01-12] MEDS: ATORVASTATIN 40 MG TAB PO SCH (07:38)
[2017-01-12] MEDS: RIVAROXABAN 15 MG TAB PO SCH ×2 (07:39→17:59)
[2017-01-12] MEDS: guaiFENesin 600 MG TABLET.ER PO SCH ×2 (07:40→20:49)
[2017-01-12] MEDS: buPROPion SR 100 MG TABLET.ER PO SCH ×2 (07:40→20:49)
[2017-01-12] MEDS: FAMOTIDINE 20 MG TAB PO SCH (07:40)
[2017-01-12] MEDS: LISINOPRIL 10 MG TAB PO SCH (07:41)
[2017-01-12] MEDS: ISOSORBIDE MONONITRATE ER 30 MG TAB.ER.24H PO SCH (07:41)
[2017-01-12] MEDS: predniSONE 20 MG TAB PO SCH (07:41)
[2017-01-12] MEDS: METOPROLOL TARTRATE 25 MG TAB PO SCH ×2 (07:41→20:49)
[2017-01-12] MEDS: BISACODYL 5 MG TABLET.DR PO SCH (07:43)
[2017-01-12 07:46] LABS: Glucose,Whole Blood 172 mg/dL (75-99)
[2017-01-12] MEDS: INSULIN LISPRO (humaLOG) 300 UNIT/3 ML VIAL SQ SCH ×4 (07:49→20:49)
[2017-01-12 07:58] LABS: Basophils % (A) 0 %; CH 28.9; CHCM 31.6; Eosinophils # (A) 0.1 k/uL (0-0.7); Eosinophils % (A) 1 %; HDW 2.39; Luc # (Auto) 0.15; Luc % (Auto) 1; Lymphocytes % (A) 18 %; MCH 29.7 pg (25.0-35.0); MCHC 32.3 g/dL (31.0-37.0); Mean Platelet Volume 7.1; Monocytes # (A) 0.7 k/uL (0-1.0); Monocytes % (A) 6 %; Neutrophils # (A) 8.1 k/uL (1.3-7.7); Neutrophils % (A) 74 %; RBC 4.02 m/uL (3.80-5.40); RDW 15.1 % (11.5-15.5); WBC (Perox) 10.85
[2017-01-12 08:02] LABS: ALT 29 U/L (9-52); AST 16 U/L (14-36); Alkaline Phosphatase 79 U/L (38-126); Anion Gap 8 mmol/L; Blood Urea Nitrogen 27 mg/dL (7-17); Calcium 9.6 mg/dL (8.4-10.2); Carbon Dioxide 20 mmol/L (22-30); Chloride 107 mmol/L (98-107); Glucose 111 mg/dL (74-99); Non-African American GFR(MDRD) 50 (>60 ml/min/1.73 sqM); Sodium 135 mmol/L (137-145); Total Bilirubin 0.4 mg/dL (0.2-1.3); Total Protein 6.1 g/dL (6.3-8.2)
[2017-01-12] MEDS: IPRATROPIUM-ALBUTEROL 3 ML NEB INHALATION SCH ×4 (08:14→19:54)
[2017-01-12] MEDS: CHOLECALCIFEROL 1,000 UNIT TAB PO SCH (11:07)
[2017-01-12] MEDS: VITAMIN E (DL,TOCOPHERYL ACET) 400 UNIT CAP PO SCH (11:07)
[2017-01-12] MEDS: ASCORBIC ACID 500 MG TAB PO SCH (11:07)
[2017-01-12] MEDS: CYANOCOBALAMIN 500 MCG TAB PO SCH (11:08)
--- NOTE | 2017-01-12 11:18 | P.PN ---
Subjective Progress Note Date: 01/12/17 Progress note dated 01/12/2017 61-year-old female who typically sees Dr. Deluca. The patient has a history of hypertension hyperlipidemia hypothyroidism chronic neuropathy depression atrial fibrillation with previous ablation. Is admitted to the hospital with a diagnosis of pulmonary embolism. The patient's IV heparin was switched to a factor X a inhibitor. The patient was transferred out of the ICU. Was seen Dr. Higginbotham. Dr. Higginbotham is out of town so I am covering for his group this weekend. The patient will follow-up with him post discharge. Other than that she's doing reasonably well. Objective - Vital Signs Vital signs: Vital Signs Temp 97.6 F 01/12/17 07:00 Pulse 74 01/12/17 08:24 Resp 20 01/12/17 07:00 BP 144/82 01/12/17 07:00 Pulse Ox 96 01/12/17 07:00 Intake & Output 01/11/17 01/12/17 01/12/17 18:59 06:59 18:59 Intake Total 1200 1800 Output Total 350 70 Balance 850 1800 -70 Weight 125 kg 125 kg 125 kg Intake: Oral 1200 1800 Output: Urine 350 70 Other: Voiding Method Toilet Toilet Toilet # Voids 1 1 1 # Bowel Movements 1 1 - Exam No acute distress, oriented 3 HEENT examination is unremarkable. Mucous membranes are moist. No oral lesions. Neck supple. Full range of motion. No adenopathy or thyromegaly. Neck veins are flat. Cardiovascular examination reveals regular rhythm rate. S1-S2 normal. No S3 or S4. No discernible murmur. Lungs reveal clear breath sounds. Breath sounds are equal bilaterally. No wheezes rhonchi or crackles. Abdomen soft bowel sounds are heard. No masses or tenderness. Extremities are intact. No cyanosis clubbing or edema. Skin is without rash or lesion. Neurologic examination is brief but nonfocal. - Labs CBC & Chem 7: 01/12/17 07:09 01/12/17 07:09 Labs: Abnormal Lab Results - Last 24 Hours (Table) 01/11/17 01/11/17 01/11/17 Range/Units 11:40 17:22 20:25 WBC (3.8-10.6) k/uL Neutrophils # (1.3-7.7) k/uL Sodium (137-145) mmol/L Carbon Dioxide (22-30) mmol/L BUN (7-17) mg/dL Creatinine (0.52-1.04) mg/dL Glucose (74-99) mg/dL POC Glucose (mg/dL) 220 H 261 H 261 H (75-99) mg/dL Total Protein (6.3-8.2) g/dL Albumin (3.5-5.0) g/dL 01/12/17 01/12/17 01/12/17 Range/Units 07:09 07:09 07:44 WBC 11.0 H (3.8-10.6) k/uL Neutrophils # 8.1 H (1.3-7.7) k/uL Sodium 135 L (137-145) mmol/L Carbon Dioxide 20 L (22-30) mmol/L BUN 27 H (7-17) mg/dL Creatinine 1.10 H (0.52-1.04) mg/dL Glucose 111 H (74-99) mg/dL POC Glucose (mg/dL) 172 H (75-99) mg/dL Total Protein 6.1 L (6.3-8.2) g/dL Albumin 3.4 L (3.5-5.0) g/dL Assessment and Plan (1) Atrial fibrillation Status: Acute (2) DVT (deep venous thrombosis) Status: Acute (3) Depression Status: Acute (4) Pulmonary embolism Status: Acute (5) Saddle pulmonary embolus Status: Acute (6) Chronic atrial fibrillation Status: Acute (7) Diabetes Status: Acute (8) HTN (hypertension) Status: Acute (9) Hyperlipemia Status: Acute (10) Hypothyroid Status: Acute Plan: Plan dated 01/12/2017. The patient was transferred out of the intensive care unit yesterday. She seemed be doing relatively well. She's currently on her factor X taking 10 a inhibitor. She should be seen by supervisor grain and yeast plants for the determination as to whether or not she has a primary hypercoagulable state. The patient should be treated for at least 6 months and maybe longer. The patient will follow-up with her primary and her bead forming machine operator. No additional recommendations are made. We'll see as needed. Likely discharge tomorrow. Time with Patient: Less than 30
[2017-01-12 11:53] LABS: Glucose,Whole Blood 187 mg/dL (75-99)
[2017-01-12] MEDS: ACETAMINOPHEN TAB 325 MG TAB PO PRN (12:33)
--- NOTE | 2017-01-12 13:50 | PN ---
PROGRESS NOTE Mrs. Oconnell is a 61-year-old female with a history of coronary disease, history of atrial fibrillation status post ablation, who is maintaining sinus mechanism, who presented with deep venous thrombosis and pulmonary embolism. She has been anticoagulated, doing well at this time when she is at rest, although she still has some dyspnea with physical activity. She has no chest pain. No dizziness or palpitation. She continues to be in sinus mechanism. She continued to be on Xarelto 15 mg twice a day, Lipitor 40 mg daily, insulin, isosorbide mononitrate 30 mg daily, lisinopril 10 mg daily, metoprolol tartrate 25 mg twice a day. PHYSICAL EXAMINATION: Blood pressure 144/80 with a heart in the 60s. LUNGS: Clear. Heart regular rate and rhythm S1, S2. No S3. No rub with a systolic ejection murmur. ABDOMEN: Soft, obese, nontender. Extremities: No significant edema. LAB DATA: Lab data revealed a BUN creatinine 27 and 1.1. Potassium 5.0. Hemoglobin of 12. IMPRESSION: 1. Pulmonary embolism and right deep vein thrombosis, anticoagulated. 2. Morbid obesity. 3. Hypertension. 4. Hyperlipidemia. 5. Status post atrial fibrillation ablation, remains in sinus. 6. History of coronary artery disease. RECOMMENDATION: She will continue current therapy and will follow up as an outpatient with Dr. Taylor. MMJOSIEL / IJN: [id number] /
[2017-01-12 17:42] LABS: Glucose,Whole Blood 305 mg/dL (75-99)
--- NOTE | 2017-01-12 18:28 | P.PN ---
Subjective Progress Note Date: 01/12/17 61-year-old morbidly obese female one of Dr. Deluca's patient with past medical history of pulmonary embolism February,, CAD, CVA, A. fib, asthma/COPD, fibromyalgia, hypertension hyperlipidemia and hypothyroidism who is known to have chronic neuropathy and eczema along with depression. Patient is known well to Dr. Taylor had ablation therapy for A. fib in the past. Patient was on anticoagulation with warfarin few years ago for A. fib. Patient completed 6 months of anticoagulation for pulmonary embolism and showed. States she felt better for a month but started having symptoms including shortness of breath associated with productive cough. She was treated with antibiotics as well as nebulizing treatment until last 3-4 weeks and the patient 's symptoms became worse. She underwent d-dimer which was positive and ended up getting a CTA of the chest positive for saddle embolism. Patient was called and sent to the emergency department at [facility]. Patient was monitored in the ICU for possible determination. DVT of the lower extremity is positive blood clots in the femoral and popliteal vein. Patient was evaluated at bedside. Endorses shortness of breath on exertion but denies any shortness of breath at rest. She denies any chest pain, palpitations or dizziness. She does feel better than yesterday. Patient was started on heparin anticoagulation yesterday and was transitioned to Xarelto 15 mg twice daily. 01/11: Patient was moved out of the ICU she is sitting up in the chair or distress, she was seen earlier by hematology oncology was recommended for her to follow-up with him as an outpatient she is to continue with anticoagulation for life however she will go for hypercoagulable workup as an outpatient. Patient denies any chest pain at this time she continues to be somewhat dyspneic on exertion, she denies any pleurisy she denies any hemoptysis. 01/12: Patient is feeling ok , she had a rough night yesterday, spent most of it in the chair , complains of increased swelling in the right leg and denies any chest pain or pleurisy, no hemoptysis,no coughing . Objective - Vital Signs Vital signs: Vital Signs Temp 97.6 F 01/12/17 07:00 Pulse 74 01/12/17 08:24 Resp 20 01/12/17 07:00 BP 144/82 01/12/17 07:00 Pulse Ox 96 01/12/17 07:00 Intake & Output 01/11/17 01/12/17 01/12/17 18:59 06:59 18:59 Intake Total 1200 1800 Output Total 350 Balance 850 1800 Weight 125 kg 125 kg Intake: Oral 1200 1800 Output: Urine 350 Other: Voiding Method Toilet Toilet # Voids 1 1 # Bowel Movements 1 - Exam - Exam - Constitutional General appearance: cooperative, no acute distress, obese - EENT Eyes: anicteric sclerae, PERRLA, normal appearance ENT: hearing grossly normal - Neck Neck: no lymphadenopathy, normal ROM, no other, no rigidity, no stridor, no thyromegaly - Respiratory Respiratory: bilateral: CTA, decreased breath sound at bases negative: dullness , rales, rhonchi - Cardiovascular Rhythm: regular Heart sounds: normal: S1, S2 Abnormal Heart Sounds: no systolic murmur, no diastolic murmur, no rub, no S3 Gallop, no S4 Gallop, no click, no other - Gastrointestinal General gastrointestinal: normal bowel sounds, soft - Integumentary Integumentary: Bilateral swelling lower extremity right greater than left with overlying dermatitis - Neurologic Neurologic: CNII-XII intact - Musculoskeletal Musculoskeletal: gait not assessed, strength equal bilaterally - Psychiatric Psychiatric: A&O x's 3, appropriate affect - Labs CBC & Chem 7: 01/12/17 07:09 01/12/17 07:09 Labs: Abnormal Lab Results - Last 24 Hours (Table) 01/11/17 01/11/17 01/11/17 Range/Units 11:40 17:22 20:25 WBC (3.8-10.6) k/uL Neutrophils # (1.3-7.7) k/uL Sodium (137-145) mmol/L Carbon Dioxide (22-30) mmol/L BUN (7-17) mg/dL Creatinine (0.52-1.04) mg/dL Glucose (74-99) mg/dL POC Glucose (mg/dL) 220 H 261 H 261 H (75-99) mg/dL Total Protein (6.3-8.2) g/dL Albumin (3.5-5.0) g/dL 01/12/17 01/12/17 01/12/17 Range/Units 07:09 07:09 07:44 WBC 11.0 H (3.8-10.6) k/uL Neutrophils # 8.1 H (1.3-7.7) k/uL Sodium 135 L (137-145) mmol/L Carbon Dioxide 20 L (22-30) mmol/L BUN 27 H (7-17) mg/dL Creatinine 1.10 H (0.52-1.04) mg/dL Glucose 111 H (74-99) mg/dL POC Glucose (mg/dL) 172 H (75-99) mg/dL Total Protein 6.1 L (6.3-8.2) g/dL Albumin 3.4 L (3.5-5.0) g/dL Assessment and Plan Plan: Assessment and Plan Plan: 1 acute saddle pulmonary embolism with right lower extremity DVT. started on Xarelto 15 mg twice a day for 3 weeks then 20 mg once a day for lifetime. Patient was off anticoagulation since to do but was symptomatic with shortness of breath associated with cough and generalized debility. Since patient has a new saddle pulmonary embolism with significant deep in the thrombosis in the right lower extremity patient would need anticoagulation for lifetime. Continue ICU monitoring for possible determination. Patient is currently on room air saturating well. 2 dyspnea and shortness of breath: Most likely from PE try to exclude other possibility with patient history of asthma/COPD and heart disease will consult pulmonary and cardiology continue updraft treatment continue aggressive treatment for heart disease and A. fib as well. 3 A. fib: Post ablation remain on Lopressor 25 g twice a day patient is currently in sinus arrhythmia 4 CAD: Post [place], patient is seeing cardiology remain on beta go along with Imdur and lisinopril 10 mg daily. 5 diabetes: Hold metformin continue insulin Accu-Chek with sliding scales coverage and be done. 6 asthma/COPD: Continue DuoNeb for when necessary shortness of breath. Continue prednisone 60 mg 7 hypothyroidism: Remain on Synthroid 75 g daily. 8 iron deficiency anemia: Has been on iron supplement regularly. 9 hypertension: On Zestril 10 mg a day and Lopressor 25 g twice a day. 10 hyperlipidemia: Remain on Pravachol 40 mg a day. 11 depression: Has been on Wellbutrin SR 200 mg twice a day. 12 GI prophylaxis: Patient will be on Pepcid 20 mg daily. 13 DVT prophylaxis: Continue Xarelto
[2017-01-12] MEDS: LORATADINE 10 MG TAB PO SCH (20:49)
[2017-01-12 20:59] LABS: Glucose,Whole Blood 234 mg/dL (75-99)
[2017-01-13] MEDS: CLOTRIMAZOLE TROCHE 10 MG TROCHE MUCOUS MEM SCH ×5 (00:56→21:22)
[2017-01-13] MEDS: LEVOTHYROXINE 88 MCG TAB PO SCH (06:04)
[2017-01-13 08:08] LABS: Glucose,Whole Blood 95 mg/dL (75-99)
[2017-01-13 08:23] LABS: Basophils % (A) 0 %; CH 28.9; CHCM 31.5; Eosinophils # (A) 0.1 k/uL (0-0.7); Eosinophils % (A) 1 %; HCT 37.4 % (34.0-46.0); HDW 2.31; HGB 12.1 gm/dL (11.4-16.0); Luc # (Auto) 0.18; Luc % (Auto) 2; Lymphocytes # (A) 2.1 k/uL (1.0-4.8); Lymphocytes % (A) 20 %; MCH 29.7 pg (25.0-35.0); MCHC 32.3 g/dL (31.0-37.0); MCV 92.2 fL (80.0-100.0); Monocytes # (A) 0.7 k/uL (0-1.0); Monocytes % (A) 6 %; Neutrophils # (A) 7.4 k/uL (1.3-7.7); Neutrophils % (A) 71 %; RBC 4.06 m/uL (3.80-5.40); RDW 15.2 % (11.5-15.5); WBC 10.5 k/uL (3.8-10.6); WBC (Perox) 9.66
[2017-01-13] MEDS: INSULIN LISPRO (humaLOG) 300 UNIT/3 ML VIAL SQ SCH ×4 (08:25→21:22)
[2017-01-13] MEDS: RIVAROXABAN 15 MG TAB PO SCH ×2 (08:28→19:04)
[2017-01-13] MEDS: ATORVASTATIN 40 MG TAB PO SCH (08:28)
[2017-01-13] MEDS: buPROPion SR 100 MG TABLET.ER PO SCH ×2 (08:29→21:22)
[2017-01-13] MEDS: FAMOTIDINE 20 MG TAB PO SCH (08:30)
[2017-01-13] MEDS: ISOSORBIDE MONONITRATE ER 30 MG TAB.ER.24H PO SCH (08:30)
[2017-01-13] MEDS: guaiFENesin 600 MG TABLET.ER PO SCH ×2 (08:30→21:22)
[2017-01-13] MEDS: predniSONE 20 MG TAB PO SCH (08:31)
[2017-01-13] MEDS: METOPROLOL TARTRATE 25 MG TAB PO SCH ×2 (08:31→21:22)
[2017-01-13] MEDS: LISINOPRIL 10 MG TAB PO SCH (08:31)
[2017-01-13] MEDS: IPRATROPIUM-ALBUTEROL 3 ML NEB INHALATION SCH ×4 (08:59→19:38)
[2017-01-13 09:41] LABS: Potassium 4.5 mmol/L (3.5-5.1); Total Bilirubin 0.3 mg/dL (0.2-1.3); Total Protein 6.4 g/dL (6.3-8.2)
--- NOTE | 2017-01-13 11:28 | P.PN ---
Subjective Progress Note Date: 01/13/17 01/13/17- patient is being seen examined and evaluated today on the medical surgical unit. Upon examination the patient's resting up in bed on room air. She is in bedside chair and states she has not been increasing her activity lately. She continues to have shortness of breath with exertion, denies any cough or congestion at this time. Patient was switched off of IV heparin and is now on oral anticoagulants. I'll labs and reports have been reviewed. She is afebrile, no further complaints. 01/11/17-01/12/17- please see Dr. Taveras's notes for weekend coverage in our absence. 01/10/17- This is a 61-year-old female patient being seen examined and evaluated today in the intensive care unit. This patient came into the emergency room yesterday with shortness of breath cough and congestion that had been ongoing for approximately 2 months and had been getting progressively worse over the last week. Patient did recently have outpatient treatment for bronchitis and pneumonia as well. Patient does have a significant history of PE approximately one year ago and was on anticoagulation therapy for approximately 5 months and then there was DC'd last September. Patient CTA was positive for pulmonary embolism. Patient also did have a venous Doppler of her bilateral lower extremities. Right leg was positive for DVT left leg was negative for DVT. Of note the patient is morbidly obese and is sedentary in her lifestyle with limited physical activity. Upon examination the patient is resting up in bed on room air does complain of shortness of breath that is significant on exertion and/or extensive conversation. Occasionally she does experience chest discomfort with her shortness of breath. All labs and reports have been reviewed. Objective - Vital Signs Vital signs: Vital Signs Temp 98.1 F 01/13/17 07:00 Pulse 76 01/13/17 09:10 Resp 16 01/13/17 07:00 BP 176/83 01/13/17 07:00 Pulse Ox 97 01/13/17 07:00 Intake & Output 01/12/17 01/13/17 01/13/17 18:59 06:59 18:59 Intake Total 1100 1400 Output Total 70 Balance 1030 1400 Weight 125 kg Intake: Oral 1100 1400 Output: Urine 70 Other: Voiding Method Toilet Toilet # Voids 4 1 # Bowel Movements 2 1 - Exam GENERAL EXAM: Alert, morbidly obese, comfortable in no apparent distress. HEAD: Normocephalic. EYES: Normal reaction of pupils, equal size. NOSE: Clear with pink turbinates. THROAT: No erythema or exudates. NECK: No masses, no JVD. CHEST: No chest wall deformity. LUNGS: Diminished bilaterally, Equal air entry with no crackles, wheeze, rhonchi or dullness. Bases diminished CVS: S1 and S2 normal with no audible mumurs, regular rhythm. ABDOMEN: No hepatosplenomegaly, normal bowel sounds, no guarding or rigidity. EXTREMITIES: +1-2 edema noted, pedal pulses palpable. SKIN: No rashes CENTRAL NERVOUS SYSTEM: No focal deficits, tone is normal in all 4 extremities. - Labs CBC & Chem 7: 01/13/17 07:49 01/13/17 07:49 Labs: Abnormal Lab Results - Last 24 Hours (Table) 01/12/17 01/12/17 01/12/17 Range/Units 11:51 17:36 20:34 Carbon Dioxide (22-30) mmol/L BUN (7-17) mg/dL Creatinine (0.52-1.04) mg/dL POC Glucose (mg/dL) 187 H 305 H 234 H (75-99) mg/dL 01/13/17 Range/Units 07:49 Carbon Dioxide 21 L (22-30) mmol/L BUN 30 H (7-17) mg/dL Creatinine 1.20 H (0.52-1.04) mg/dL POC Glucose (mg/dL) (75-99) mg/dL Assessment and Plan Plan: Assessment Saddle pulmonary embolism History of pulmonary embolism History of coronary artery disease History of hypertension Hyperlipidemia Diabetes mellitus History of fibromyalgia Morbid obesity Plan Patient could be cleared for discharge from a pulmonary standpoint. We'll continue to follow up with this patient in the outpatient setting. The patient could benefit from possible sleep study as well as a full PFT. Medications have been reviewed and will be continued as ordered. Continue with pulmonary hygiene, coughing and deep breathing exercises, and supportive care. Supplemental oxygen to maintain oxygen saturations of 92% or better. Continue nebulizer treatments. GI and DVT prophylaxis. We will continue to monitor labs/ results and adjust treatment as necessary. Further recommendations pending. I performed an examination of the patient and discussed their management with the nurse practitioner. I have reviewed the nurse practitioner's note and agree with the documented findings and plan of care.
[2017-01-13 11:44] LABS: Glucose,Whole Blood 205 mg/dL (75-99)
[2017-01-13] MEDS: CYANOCOBALAMIN 500 MCG TAB PO SCH (13:17)
[2017-01-13] MEDS: CHOLECALCIFEROL 1,000 UNIT TAB PO SCH (13:17)
[2017-01-13] MEDS: VITAMIN E (DL,TOCOPHERYL ACET) 400 UNIT CAP PO SCH (13:17)
[2017-01-13] MEDS: ASCORBIC ACID 500 MG TAB PO SCH (13:17)
[2017-01-13] MEDS: BISACODYL 5 MG TABLET.DR PO SCH (13:24)
--- NOTE | 2017-01-13 14:38 | P.PN ---
Subjective Progress Note Date: 01/13/17 61-year-old morbidly obese female one of Dr. Deluca's patient with past medical history of pulmonary embolism February,, CAD, CVA, A. fib, asthma/COPD, fibromyalgia, hypertension hyperlipidemia and hypothyroidism who is known to have chronic neuropathy and eczema along with depression. Patient is known well to Dr. Taylor had ablation therapy for A. fib in the past. Patient was on anticoagulation with warfarin few years ago for A. fib. Patient completed 6 months of anticoagulation for pulmonary embolism and showed. States she felt better for a month but started having symptoms including shortness of breath associated with productive cough. She was treated with antibiotics as well as nebulizing treatment until last 3-4 weeks and the patient 's symptoms became worse. She underwent d-dimer which was positive and ended up getting a CTA of the chest positive for saddle embolism. Patient was called and sent to the emergency department at [facility]. Patient was monitored in the ICU for possible determination. DVT of the lower extremity is positive blood clots in the femoral and popliteal vein. Patient was evaluated at bedside. Endorses shortness of breath on exertion but denies any shortness of breath at rest. She denies any chest pain, palpitations or dizziness. She does feel better than yesterday. Patient was started on heparin anticoagulation yesterday and was transitioned to Xarelto 15 mg twice daily. 01/11: Patient was moved out of the ICU she is sitting up in the chair or distress, she was seen earlier by hematology oncology was recommended for her to follow-up with him as an outpatient she is to continue with anticoagulation for life however she will go for hypercoagulable workup as an outpatient. Patient denies any chest pain at this time she continues to be somewhat dyspneic on exertion, she denies any pleurisy she denies any hemoptysis. 01/12: Patient is feeling ok , she had a rough night yesterday, spent most of it in the chair , complains of increased swelling in the right leg and denies any chest pain or pleurisy, no hemoptysis,no coughing . 01/13: Patient is seen today on the [facility] floor. She has been evaluated by Dr. Chau with recommendations for long-term anticoagulation and outpatient hypercoagulopathy workup to be done. Patient states she is feeling well today she denies having any blood in her stools, urine or coughing blood. She has had a small bowel movement only this morning but feels that she is slightly constipated and did not take stool softener yesterday. Patient states she feels weak. Consult is in place for patient to go to [facility] tomorrow. Cardiology has recommended outpatient follow-up with Dr. Taylor. Blood sugars have been elevated for which she'll be started on Lantus 10 units at bedtime. Prednisone will be decreased to 50 mg daily. Objective - Vital Signs Vital signs: Vital Signs Temp 98.1 F 01/13/17 07:00 Pulse 74 01/13/17 12:22 Resp 16 01/13/17 07:00 BP 176/83 01/13/17 07:00 Pulse Ox 97 01/13/17 07:00 Intake & Output 01/12/17 01/13/17 01/13/17 18:59 06:59 18:59 Intake Total 1100 1400 Output Total 70 Balance 1030 1400 Weight 125 kg Intake: Oral 1100 1400 Output: Urine 70 Other: Voiding Method Toilet Toilet # Voids 4 1 # Bowel Movements 2 1 - Exam General appearance: cooperative, no acute distress, obese - EENT Eyes: anicteric sclerae, PERRLA, normal appearance ENT: hearing grossly normal - Neck Neck: no lymphadenopathy, normal ROM, no other, no rigidity, no stridor, no thyromegaly - Respiratory Respiratory: bilateral: CTA, decreased breath sound at bases negative: dullness , rales, rhonchi - Cardiovascular Rhythm: regular Heart sounds: normal: S1, S2 Abnormal Heart Sounds: no systolic murmur, no diastolic murmur, no rub, no S3 Gallop, no S4 Gallop, no click, no other - Gastrointestinal General gastrointestinal: normal bowel sounds, soft - Integumentary Integumentary: Bilateral swelling lower extremity right greater than left with overlying dermatitis - Neurologic Neurologic: CNII-XII intact - Musculoskeletal Musculoskeletal: gait not assessed, strength equal bilaterally - Psychiatric Psychiatric: A&O x's 3, appropriate affect - Labs CBC & Chem 7: 01/13/17 07:49 01/13/17 07:49 Labs: Abnormal Lab Results - Last 24 Hours (Table) 01/12/17 01/12/17 01/13/17 Range/Units 17:36 20:34 07:49 Carbon Dioxide 21 L (22-30) mmol/L BUN 30 H (7-17) mg/dL Creatinine 1.20 H (0.52-1.04) mg/dL POC Glucose (mg/dL) 305 H 234 H (75-99) mg/dL 01/13/17 Range/Units 11:40 Carbon Dioxide (22-30) mmol/L BUN (7-17) mg/dL Creatinine (0.52-1.04) mg/dL POC Glucose (mg/dL) 205 H (75-99) mg/dL Assessment and Plan Plan: 1 acute saddle pulmonary embolism with right lower extremity DVT. started on Xarelto 15 mg twice a day for 3 weeks then 20 mg once a day for lifetime. Patient is currently on room air saturating well. 2 dyspnea and shortness of breath: Most likely from PE 3 A. fib: Post ablation remain on Lopressor 25 mg twice a day patient is currently in sinus arrhythmia 4 CAD: Post [place], patient is seeing cardiology remain on beta go along with Imdur and lisinopril 10 mg daily. 5 diabetes: Hold metformin continue insulin Accu-Chek with sliding scales coverage and be done. Patient started on Lantus 10 units at bedtime due to hyperglycemia. 6 asthma/COPD: Continue DuoNeb for when necessary shortness of breath. Prednisone decreased to 50 mg daily 7 hypothyroidism: Remain on Synthroid 75 g daily. 8 iron deficiency anemia: Has been on iron supplement regularly. 9 hypertension: On Zestril 10 mg a day and Lopressor 25 g twice a day. 10 hyperlipidemia: Remain on Pravachol 40 mg a day. 11 depression: Has been on Wellbutrin SR 200 mg twice a day. 12 GI prophylaxis: Patient will be on Pepcid 20 mg daily. 13 DVT prophylaxis: Continue Xarelto Discharge plan: [facility] tomorrow under the care of Dr. Deluca Impression and plan of care have been directed as dictated by the signing physician. Ester Hobson nurse practitioner acting as scribe for signing physician.
[2017-01-13 17:51] LABS: Glucose,Whole Blood 316 mg/dL (75-99)
[2017-01-13] MEDS ORDERED: INSULIN GLARGINE 100 UNIT/ML 10 ML VIAL SQ SCH (21:00)
[2017-01-13 21:09] LABS: Glucose,Whole Blood 273 mg/dL (75-99)
[2017-01-13] MEDS: LORATADINE 10 MG TAB PO SCH (21:22)
[2017-01-13] MEDS: ZOLPIDEM 5 MG TAB PO PRN (23:28)
[2017-01-13] MEDS: ACETAMINOPHEN TAB 325 MG TAB PO PRN (23:28)
[2017-01-14] MEDS: CLOTRIMAZOLE TROCHE 10 MG TROCHE MUCOUS MEM SCH ×3 (01:08→10:35)
[2017-01-14] MEDS: LEVOTHYROXINE 88 MCG TAB PO SCH (06:20)
[2017-01-14 07:17] LABS: Glucose,Whole Blood 115 mg/dL (75-99)
[2017-01-14] MEDS: INSULIN LISPRO (humaLOG) 300 UNIT/3 ML VIAL SQ SCH ×2 (07:46→13:10)
[2017-01-14 07:47] LABS: INR 1.4 (<1.2); Prothrombin Time 13.8 sec (9.0-12.0)
[2017-01-14 07:48] LABS: Basophils % (A) 0 %; CH 29.1; CHCM 31.4; Eosinophils # (A) 0.1 k/uL (0-0.7); Eosinophils % (A) 1 %; HCT 35.4 % (34.0-46.0); HDW 2.29; HGB 11.2 gm/dL (11.4-16.0); Luc # (Auto) 0.19; Luc % (Auto) 2; Lymphocytes # (A) 2.1 k/uL (1.0-4.8); Lymphocytes % (A) 20 %; MCH 29.5 pg (25.0-35.0); MCHC 31.7 g/dL (31.0-37.0); MCV 93.1 fL (80.0-100.0); Mean Platelet Volume 6.6; Monocytes # (A) 0.6 k/uL (0-1.0); Monocytes % (A) 5 %; Neutrophils % (A) 73 %; RBC 3.81 m/uL (3.80-5.40); RDW 15.2 % (11.5-15.5); WBC 10.9 k/uL (3.8-10.6); WBC (Perox) 11.45
[2017-01-14] MEDS: RIVAROXABAN 15 MG TAB PO SCH (07:49)
[2017-01-14 07:55] VITALS: BP 165/79; RESP 20; TEMP 97.3
[2017-01-14] MEDS: IPRATROPIUM-ALBUTEROL 3 ML NEB INHALATION SCH ×3 (08:39→16:14)
[2017-01-14 08:49] VITALS: PULSE 68
--- NOTE | 2017-01-14 08:56 | P.DS ---
Providers Date of admission: 01/09/17 16:10 Expected date of discharge: 01/14/17 Attending physician: Lor Deluca Consults: 01/09/17 16:10 Consult Physician Routine Consulting Provider: Aly Higginbotham Consult Reason/Comments: pe Do you want consulting provider notified?: Yes 01/11/17 11:28 Consult Physician Routine Consulting Provider: Mark Pierre Consult Reason/Comments: Pulmonary embolus/DVT Do you want consulting provider notified?: Yes, Notify in am Primary care physician: Lor Deluca [facility] Course: 61-year-old morbidly obese female one of Dr. Deluca's patient with past medical history of pulmonary embolism February,, CAD, CVA, A. fib, asthma/COPD, fibromyalgia, hypertension hyperlipidemia and hypothyroidism who is known to have chronic neuropathy and eczema along with depression. Patient is known well to Dr. Taylor had ablation therapy for A. fib in the past. Patient was on anticoagulation with warfarin few years ago for A. fib. Patient completed 6 months of anticoagulation for pulmonary embolism and showed. States she felt better for a month but started having symptoms including shortness of breath associated with productive cough. She was treated with antibiotics as well as nebulizing treatment until last 3-4 weeks and the patient 's symptoms became worse. She underwent d-dimer which was positive and ended up getting a CTA of the chest positive for saddle embolism. Patient was called and sent to the emergency department at [facility]. Patient was monitored in the ICU for possible determination. DVT of the lower extremity is positive blood clots in the femoral and popliteal vein. Patient was evaluated at bedside. Endorses shortness of breath on exertion but denies any shortness of breath at rest. She denies any chest pain, palpitations or dizziness. She does feel better than yesterday. Patient was started on heparin anticoagulation yesterday and was transitioned to Xarelto 15 mg twice daily. 01/11: Patient was moved out of the ICU she is sitting up in the chair or distress, she was seen earlier by hematology oncology was recommended for her to follow-up with him as an outpatient she is to continue with anticoagulation for life however she will go for hypercoagulable workup as an outpatient. Patient denies any chest pain at this time she continues to be somewhat dyspneic on exertion, she denies any pleurisy she denies any hemoptysis. 01/12: Patient is feeling ok , she had a rough night yesterday, spent most of it in the chair , complains of increased swelling in the right leg and denies any chest pain or pleurisy, no hemoptysis,no coughing . 01/13: Patient is seen today on the [facility] floor. She has been evaluated by Dr. Chau with recommendations for long-term anticoagulation and outpatient hypercoagulopathy workup to be done. Patient states she is feeling well today she denies having any blood in her stools, urine or coughing blood. She has had a small bowel movement only this morning but feels that she is slightly constipated and did not take stool softener yesterday. Patient states she feels weak. Consult is in place for patient to go to [facility] tomorrow. Cardiology has recommended outpatient follow-up with Dr. Taylor. Blood sugars have been elevated for which she'll be started on Lantus 10 units at bedtime. Prednisone will be decreased to 50 mg daily. 01/14: Vital signs have been stable. Pulse ox is 95% on room air. Cardiology has signed off and following when necessary. Arrangements are being made for patient to go to [facility] today. Patient is being discharged in stable condition. Discharge diagnoses: 1 acute saddle pulmonary embolism with right lower extremity DVT. started on Xarelto 15 mg twice a day for 3 weeks then 20 mg once a day for lifetime. 2 dyspnea and shortness of breath: Most likely from PE 3 history of A. fib: Post ablation 4 CAD: Post [place], 5 diabetes mellitus type II 6 asthma mild persistent and possible COPD 7 hypothyroidism 8 iron deficiency anemia, chronic of chronic disease 9 hypertension 10 hyperlipidemia 11 depression recurrent Discharge plan: [facility] under the care of Dr. Deluca Impression and plan of care have been directed as dictated by the signing physician. Ester Hobson nurse practitioner acting as scribe for signing physician. Patient Condition at Discharge: Good Plan - Discharge Summary New Discharge Prescriptions: New Acetaminophen Tab [Tylenol] 650 mg PO Q6HR PRN tab PRN Reason: Fever And/ Or Pain Artificial Tears-Hypromellose [Artificial Tear Drops] 2 drops BOTH EYES TID PRN bottle PRN Reason: Dry Eye(S) INSULIN LISPRO (humaLOG) [humaLOG (formulary)] 0 unit SQ ACHS vial Ipratropium-Albuterol Nebulize [Duoneb 0.5 mg-3 mg/3 ml Soln] 3 ml INHALATION RT-QID neb Nitroglycerin Sl Tabs [Nitrostat] 0.4 mg SUBLINGUAL Q5M PRN tab PRN Reason: Chest Pain predniSONE 0 mg PO DIRECTED #40 tab Rivaroxaban [Xarelto] 15 mg PO BID-W/MEALS tab Sodium Chloride 0.65% Nasal [Deep Sea (Saline)] 2 spray NASAL QID PRN spray PRN Reason: Dry Nasal Passages Continue Cetirizine HCl [Zyrtec] 10 mg PO HS PRN PRN Reason: Allergy Symptoms Pravastatin Sodium [Pravachol] 40 mg PO DAILY Metoprolol Tartrate [Lopressor] 25 mg PO BID Cholecalciferol [Vitamin D3] 5,000 unit PO DAILY Lisinopril [Zestril] 10 mg PO DAILY Isosorbide Mononitrate ER [Imdur] 30 mg PO DAILY Cyanocobalamin [Vitamin B-12] 500 mcg PO DAILY Bisacodyl [Dulcolax] 10 mg PO DAILY metFORMIN HCL 1,000 mg PO BID-W/MEALS Vitamin E (Dl,Tocopheryl Acet) [Vitamin E] 400 unit PO DAILY Fluticasone Nasal [place] [Flonase Nasal [place]] 1 spray EA NOSTRIL BID PRN PRN Reason: Congestion buPROPion HCL [Wellbutrin SR] 200 mg PO BID Krill Oil 500 mg PO DAILY Famotidine [Pepcid] 20 mg PO BID #60 tab Ascorbic Acid [Vitamin C] 500 mg PO DAILY guaiFENesin [Mucinex] 600 mg PO BID Fluticasone/Vilanterol [Breo Ellipta 200-25 Mcg INH] 1 puff INHALATION RT-BID Levothyroxine Sodium [Tirosint] 88 mcg PO DAILY Clotrimazole Tyree [Mycelex Tyree] 10 mg MUCOUS MEM 5XD Discontinued Meloxicam [Mobic] 15 mg PO PC-LUNCH Albuterol Sulfate [Proventil Hfa] 2 puff INHALATION RT-Q4H PRN PRN Reason: Shortness Of Breath predniSONE See Taper PO DAILY Rivaroxaban [Xarelto] 15 mg PO DAILY Ranitidine HCl [Zantac] 75 mg PO BID Discharge Medication List Cetirizine HCl [Zyrtec] 10 mg PO HS PRN 05/12/14 [History] Cholecalciferol [Vitamin D3] 5,000 unit PO DAILY 05/12/14 [History] Isosorbide Mononitrate ER [Imdur] 30 mg PO DAILY 05/12/14 [History] Lisinopril [Zestril] 10 mg PO DAILY 05/12/14 [History] Metoprolol Tartrate [Lopressor] 25 mg PO BID 05/12/14 [History] Pravastatin Sodium [Pravachol] 40 mg PO DAILY 05/12/14 [History] Bisacodyl [Dulcolax] 10 mg PO DAILY 02/17/15 [History] Cyanocobalamin [Vitamin B-12] 500 mcg PO DAILY 02/17/15 [History] Fluticasone Nasal [place] [Flonase Nasal [place]] 1 spray EA NOSTRIL BID PRN [History] Vitamin E (Dl,Tocopheryl Acet) [Vitamin E] 400 unit PO DAILY 02/17/15 [History] metFORMIN HCL 1,000 mg PO BID-W/MEALS 02/17/15 [History] Krill Oil 500 mg PO DAILY 02/23/16 [History] buPROPion HCL [Wellbutrin SR] 200 mg PO BID 02/23/16 [History] Famotidine [Pepcid] 20 mg PO BID #60 tab 02/26/16 [Rx] Ascorbic Acid [Vitamin C] 500 mg PO DAILY 01/09/17 [History] Clotrimazole Tyree [Mycelex Tyree] 10 mg MUCOUS MEM 5XD 01/09/17 [History] Fluticasone/Vilanterol [Breo Ellipta 200-25 Mcg INH] 1 puff INHALATION RT-BID [History] Levothyroxine Sodium [Tirosint] 88 mcg PO DAILY 01/09/17 [History] guaiFENesin [Mucinex] 600 mg PO BID 01/09/17 [History] Acetaminophen Tab [Tylenol] 650 mg PO Q6HR PRN tab 01/14/17 [Rx] Artificial Tears-Hypromellose [Artificial Tear Drops] 2 drops BOTH EYES TID PRN bottle 01/14/17 [Rx] INSULIN LISPRO (humaLOG) [humaLOG (formulary)] 0 unit SQ ACHS vial 01/14/17 [Rx ] Ipratropium-Albuterol Nebulize [Duoneb 0.5 mg-3 mg/3 ml Soln] 3 ml INHALATION RT -QID neb 01/14/17 [Rx] Nitroglycerin Sl Tabs [Nitrostat] 0.4 mg SUBLINGUAL Q5M PRN tab 01/14/17 [Rx] Rivaroxaban [Xarelto] 15 mg PO BID-W/MEALS tab 01/14/17 [Rx] Sodium Chloride 0.65% Nasal [Deep Sea (Saline)] 2 spray NASAL QID PRN spray 01/21 [Rx] predniSONE 0 mg PO DIRECTED #40 tab 01/14/17 [Rx] Follow up Appointment(s)/Referral(s): Pradeep Taylor MD [STAFF PHYSICIAN] - 1 Week Lor Deluca MD [Primary Care Provider] - 1 Week (At [facility]) Aly Higginbotham MD [STAFF PHYSICIAN] - 1 Week Latoya Chau MD [STAFF PHYSICIAN] - 02/17/17 3:15 pm Patient Instructions/Handouts: Prednisone (By mouth), Atrial Fibrillation (DC) , Pulmonary Embolism (DC), Deep Venous Thrombosis (DC) Activity/Diet/Wound Care/Special Instructions: Diet: Consistent Carb, Heart Healthy Activity: Ambulate as tolerated x1 assist Discharge Disposition: TRANSFER TO SNF/ECF
[2017-01-14] MEDS ORDERED: predniSONE 50 MG TAB PO SCH (09:00)
[2017-01-14] MEDS: guaiFENesin 600 MG TABLET.ER PO SCH (10:35)
[2017-01-14] MEDS: ISOSORBIDE MONONITRATE ER 30 MG TAB.ER.24H PO SCH (10:36)
[2017-01-14] MEDS: METOPROLOL TARTRATE 25 MG TAB PO SCH (10:36)
[2017-01-14] MEDS: buPROPion SR 100 MG TABLET.ER PO SCH (10:36)
[2017-01-14] MEDS: BISACODYL 5 MG TABLET.DR PO SCH (10:37)
[2017-01-14] MEDS: FAMOTIDINE 20 MG TAB PO SCH (10:37)
[2017-01-14] MEDS: LISINOPRIL 10 MG TAB PO SCH (10:37)
[2017-01-14] MEDS: ATORVASTATIN 40 MG TAB PO SCH (10:37)
--- NOTE | 2017-01-14 11:28 | P.PN ---
Subjective 01/14/17- patient is being seen examined and evaluated today in rounds. Upon examination patient's resting up in bed on room air in bedside chair. She continues to have intermittent shortness of breath with exertion denies any cough or congestion. Patient was evaluated by Dr. Stacy and his recommendations were for long-term anticoagulation in an outpatient hypercoagulopathy workup to be completed. She is being prepared for discharge to rehab facility. 01/13/17- patient is being seen examined and evaluated today on the medical surgical unit. Upon examination the patient's resting up in bed on room air. She is in bedside chair and states she has not been increasing her activity lately. She continues to have shortness of breath with exertion, denies any cough or congestion at this time. Patient was switched off of IV heparin and is now on oral anticoagulants. I'll labs and reports have been reviewed. She is afebrile, no further complaints. 01/11/17-01/12/17- please see Dr. Taveras's notes for weekend coverage in our absence. 01/10/17- This is a 61-year-old female patient being seen examined and evaluated today in the intensive care unit. This patient came into the emergency room yesterday with shortness of breath cough and congestion that had been ongoing for approximately 2 months and had been getting progressively worse over the last week. Patient did recently have outpatient treatment for bronchitis and pneumonia as well. Patient does have a significant history of PE approximately one year ago and was on anticoagulation therapy for approximately 5 months and then there was DC'd last September. Patient CTA was positive for pulmonary embolism. Patient also did have a venous Doppler of her bilateral lower extremities. Right leg was positive for DVT left leg was negative for DVT. Of note the patient is morbidly obese and is sedentary in her lifestyle with limited physical activity. Upon examination the patient is resting up in bed on room air does complain of shortness of breath that is significant on exertion and/or extensive conversation. Occasionally she does experience chest discomfort with her shortness of breath. All labs and reports have been reviewed. Objective - Vital Signs Vital signs: Vital Signs Temp 97.3 F L 01/14/17 07:00 Pulse 68 01/14/17 08:49 Resp 20 01/14/17 07:00 BP 165/79 01/14/17 07:00 Pulse Ox 95 01/14/17 07:00 Intake & Output 01/13/17 01/14/17 01/14/17 18:59 06:59 18:59 Intake Total 0 480 Output Total 70 Balance -70 0 480 Weight 127.006 kg Intake: Oral 0 480 Output: Urine 70 Other: Voiding Method Toilet Diaper # Voids 2 1 # Bowel Movements 1 - Exam GENERAL EXAM: Alert, morbidly obese, comfortable in no apparent distress. HEAD: Normocephalic. EYES: Normal reaction of pupils, equal size. NOSE: Clear with pink turbinates. THROAT: No erythema or exudates. NECK: No masses, no JVD. CHEST: No chest wall deformity. LUNGS: Diminished bilaterally, Equal air entry with no crackles, wheeze, rhonchi or dullness. Bases diminished CVS: S1 and S2 normal with no audible mumurs, regular rhythm. ABDOMEN: No hepatosplenomegaly, normal bowel sounds, no guarding or rigidity. EXTREMITIES: +1-2 edema noted, pedal pulses palpable. SKIN: No rashes CENTRAL NERVOUS SYSTEM: No focal deficits, tone is normal in all 4 extremities. - Labs CBC & Chem 7: 01/14/17 07:14 01/13/17 07:49 Labs: Abnormal Lab Results - Last 24 Hours (Table) 01/13/17 01/13/17 01/13/17 Range/Units 11:40 17:30 21:04 WBC (3.8-10.6) k/uL Hgb (11.4-16.0) gm/dL Neutrophils # (1.3-7.7) k/uL PT (9.0-12.0) sec INR (<1.2) POC Glucose (mg/dL) 205 H 316 H 273 H (75-99) mg/dL 01/14/17 01/14/17 01/14/17 Range/Units 07:12 07:14 07:14 WBC 10.9 H (3.8-10.6) k/uL Hgb 11.2 L (11.4-16.0) gm/dL Neutrophils # 8.0 H (1.3-7.7) k/uL PT 13.8 H (9.0-12.0) sec INR 1.4 H (<1.2) POC Glucose (mg/dL) 115 H (75-99) mg/dL Assessment and Plan Plan: Assessment Saddle pulmonary embolism History of pulmonary embolism History of coronary artery disease History of hypertension Hyperlipidemia Diabetes mellitus History of fibromyalgia Morbid obesity Plan Patient could be cleared for discharge from a pulmonary standpoint. We'll continue to follow up with this patient in the outpatient setting. The patient could benefit from possible sleep study as well as a full PFT. Medications have been reviewed and will be continued as ordered. Continue with pulmonary hygiene, coughing and deep breathing exercises, and supportive care. Supplemental oxygen to maintain oxygen saturations of 92% or better. Continue nebulizer treatments. GI and DVT prophylaxis. We will continue to monitor labs/ results and adjust treatment as necessary. Further recommendations pending. I performed an examination of the patient and discussed their management with the nurse practitioner. I have reviewed the nurse practitioner's note and agree with the documented findings and plan of care.
[2017-01-14] MEDS: VITAMIN E (DL,TOCOPHERYL ACET) 400 UNIT CAP PO SCH (12:21)
[2017-01-14] MEDS: ASCORBIC ACID 500 MG TAB PO SCH (12:22)
[2017-01-14] MEDS: CHOLECALCIFEROL 1,000 UNIT TAB PO SCH (12:22)
[2017-01-14] MEDS: CYANOCOBALAMIN 500 MCG TAB PO SCH (12:22)
[2017-01-14 12:23] LABS: Glucose,Whole Blood 206 mg/dL (75-99)
== END 2017-01-14 16:47 | DRG 176 ==
LOC: EC 14:41 → 6ICU 16:10 → 5MS5E 01-11 11:55
PROVIDERS: ADMIT Family Medicine; ATTEND Family Medicine
DX: I26.92 Saddle embolus of pulmonary artery without acute cor pulmonale (principal); F33.9 Major depressive disorder, recurrent, unspecified; I82.411 Acute embolism and thrombosis of right femoral vein; I82.431 Acute embolism and thrombosis of right popliteal vein; E11.42 Type 2 diabetes mellitus with diabetic polyneuropathy; I48.0 Paroxysmal atrial fibrillation; I48.2 Chronic atrial fibrillation; E66.01 Morbid (severe) obesity due to excess calories; I10 Essential (primary) hypertension; D50.9 Iron deficiency anemia, unspecified; E03.9 Hypothyroidism, unspecified; E78.5 Hyperlipidemia, unspecified; G89.29 Other chronic pain; I25.10 Atherosclerotic heart disease of native coronary artery without angina pectoris; I25.2 Old myocardial infarction; J45.30 Mild persistent asthma, uncomplicated; M79.7 Fibromyalgia; R01.1 Cardiac murmur, unspecified; M54.9 Dorsalgia, unspecified; J44.9 Chronic obstructive pulmonary disease, unspecified; M19.90 Unspecified osteoarthritis, unspecified site; K59.09 Other constipation; R74.8 Abnormal levels of other serum enzymes; I69.992 Facial weakness following unspecified cerebrovascular disease; Z79.82 Long term (current) use of aspirin; Z79.899 Other long term (current) drug therapy; Z79.84 Long term (current) use of oral hypoglycemic drugs; Z86.711 Personal history of pulmonary embolism; Z87.891 Personal history of nicotine dependence; Z95.5 Presence of coronary angioplasty implant and graft; Z88.8 Allergy status to other drugs, medicaments and biological substances; Z88.1 Allergy status to other antibiotic agents; Z91.040 Latex allergy status
CPT/HCPCS: 36415; 71275; 80053; 80061; 82043; 82550; 82553; 82570; 82607; 82785; 83036; 83540; 83550; 83735; 84165; 84439; 84443; 84480; 84484; 85025; 85379; 85610; 85730; 86001; 86606; 86609; 93005; 93306; 93970; 94640; 96365; 96366; 96376; 99291

== ENCOUNTER → 2017-01-09 | Outpatient (CLI) | payer MEDICARE, BC ==
--- NOTE | 2017-01-09 14:44 | CT ---
EXAMINATION TYPE: CT angio chest DATE OF EXAM: 01/09/2017 COMPARISON: NONE HISTORY: SOB, elevated d dimer CT DLP: 658 mGycm. Automated Exposure Control for Dose Reduction was Utilized. CONTRAST: CTA scan of the thorax is performed with IV Contrast, patient injected with 80 mL of Visipaque 320, p ulmonary embolism protocol. MIP Images are created on CT scanner and reviewed. FINDINGS: LUNGS: Left basilar and right middle lobe linear subsegmental atelectasis versus scarring is seen. Ot her areas of scattered groundglass opacity are present without area of focal consolidation or wedge-s haped regions to suggest pulmonary infarct. There is no pleural effusion or pneumothorax seen. The t racheobronchial tree is patent. MEDIASTINUM: Saddle pulmonary embolus with large bilateral clot burden nearly occlusive within the ri ght main pulmonary artery with diminutive peripheral flow at the superior margin inflow at the inferi or margin and nearly occlusive thrombus within the segmental artery to the right lower lobe. Segmenta l and subsegmental thrombus are seen to all pulmonary lobes. There is resultant enlargement of the ma in pulmonary artery up to 3.4 cm. No bowing of the interventricular septum or reflux of contrast into the inferior vena cava or hepatic veins is appreciated. Ascending aorta is within normal limits of s ize. There are no greater than 1 cm hilar or mediastinal lymph nodes. Heart is upper limits of normal size . Trace pericardial effusion. OTHER: Moderate degenerative changes of the thoracic spine are noted. IMPRESSION: Saddle pulmonary embolus with large bilateral segmental and subsegmental clot burden resu lting in enlargement of the main pulmonary artery suggesting pulmonary arterial hypertension. No bowi ng of the interventricular septum or reflux of contrast into the inferior vena cava/hepatic veins are seen to suggest current right heart strain. No focal wedge shaped pulmonary consolidations to sugges t current pulmonary infarct. Scattered areas of groundglass opacity are seen that may represent olige ndaja and/or atelectasis. Findings were discussed with Kristin Levy CA[employer]ING CARRIER at [address] Kaur directly. Patient was instructe d to go to the ER.
== END | disposition home or self-care (01) ==
LOC: RADCTMAIN 10:41
PROVIDERS: ATTEND Family Medicine
DX: I26.92 Saddle embolus of pulmonary artery without acute cor pulmonale (principal); R91.8 Other nonspecific abnormal finding of lung field
CPT/HCPCS: 71275; Q9967

== ENCOUNTER 2017-08-28 06:21 | Inpatient (IN) | payer MEDICARE, BC ==
[2017-08-28 07:08] LABS: Anisocytosis Slight; Basophils % (A) 0 %; Eosinophils # (A) 0.3 k/uL (0-0.7); Eosinophils % (A) 3 %; HGB 9.6 gm/dL (11.4-16.0); Hypochromasia Marked; Lymphocytes # (A) 1.4 k/uL (1.0-4.8); Lymphocytes % (A) 12 %; MCH 24.4 pg (25.0-35.0); MCHC 30.9 g/dL (31.0-37.0); MCV 78.9 fL (80.0-100.0); Mean Platelet Volume 5.9; Microcytosis Slight; Monocytes # (A) 0.5 k/uL (0-1.0); Monocytes % (A) 4 %; Neutrophils # (A) 9.5 k/uL (1.3-7.7); Neutrophils % (A) 81 %; Platelet Count 243 k/uL (150-450); RBC 3.93 m/uL (3.80-5.40); RDW 17.7 % (11.5-15.5); WBC 11.8 k/uL (3.8-10.6)
[2017-08-28 07:19] LABS: ALT 22 U/L (9-52); AST 19 U/L (14-36); Albumin 3.7 g/dL (3.5-5.0); Alkaline Phosphatase 87 U/L (38-126); Amylase 59 U/L (30-110); Anion Gap 12 mmol/L; Blood Urea Nitrogen 21 mg/dL (7-17); Calcium 8.5 mg/dL (8.4-10.2); Carbon Dioxide 23 mmol/L (22-30); Chloride 105 mmol/L (98-107); Glucose 146 mg/dL (74-99); Lipase 316 U/L (23-300); Potassium 4.6 mmol/L (3.5-5.1); Sodium 140 mmol/L (137-145); Total Bilirubin 0.4 mg/dL (0.2-1.3); Total Protein 6.5 g/dL (6.3-8.2)
[2017-08-28] MEDS ORDERED: fentaNYL (PF) 50 MCG/ML 2 ML AMP IV STA (07:34)
--- NOTE | 2017-08-28 07:41 | ED ---
Abdominal Pain HPI - General Chief Complaint: Abdominal Pain Stated Complaint: r flank pain Time Seen by Provider: 08/28/17 07:28 Source: patient, EMS, RN notes reviewed Mode of arrival: EMS Limitations: no limitations - History of Present Illness Initial Comments: This is a 61-year-old female history kidney stones morbid obesity and multiple other medical issues including gout who states she had the onset this morning around 4:30 AM of severe right CVA pain it radiates down to her right lower quadrant area. She states is moderate to severe in nature mostly achy and dull she's not sure if it feels like her previous kidney stones. She does states she had her appendix and gallbladder removed in the past she denies any fevers chills or sweats no nausea and this time she did have nausea vomiting earlier. No diarrhea she states she thought she was very constipated from her new medication when she had a very large bowel movement this morning and this did not relieve the pain. She denies any dysuria hematuria or other modifying factors at this time MD Complaint: abdominal pain, flank pain - Related Data Home Medications Medication Instructions Recorded Confirmed Isosorbide Mononitrate ER [Imdur] 30 mg PO DAILY 05/12/14 08/28/17 Metoprolol Tartrate [Lopressor] 25 mg PO BID 05/12/14 08/28/17 Cyanocobalamin [Vitamin B-12] 1,000 mcg PO DAILY 02/17/15 08/28/17 metFORMIN HCL 1,000 mg PO BID-W/MEALS 02/17/15 08/28/17 Famotidine [Pepcid] 20 mg PO BID PRN 08/28/17 08/28/17 Febuxostat [Uloric] 40 mg PO DAILY 08/28/17 08/28/17 Ferrous Sulfate [Feosol] 325 mg PO BID 08/28/17 08/28/17 Furosemide [Lasix] 40 mg PO DAILY 08/28/17 08/28/17 Glimepiride [Amaryl] 0.5 mg PO AC-BID 08/28/17 08/28/17 Ipratropium-Albuterol Nebulize 3 ml INHALATION RT-QID PRN 08/28/17 08/28/17 [Duoneb 0.5 mg-3 mg/3 ml Soln] Levothyroxine Sodium [Synthroid] 112 mcg PO DAILY 08/28/17 08/28/17 Loratadine [Claritin] 10 mg PO DAILY 08/28/17 08/28/17 Meloxicam [Mobic] 15 mg PO DAILY 08/28/17 08/28/17 Montelukast [Singulair] 10 mg PO HS 08/28/17 08/28/17 Sodium Chloride 5% Ophth Soln 1 drops BOTH EYES DAILY PRN 08/28/17 08/28/17 [Trini 128] Spironolactone [Aldactone] 25 mg PO DAILY 08/28/17 08/28/17 Previous Rx's Medication Instructions Recorded Nitroglycerin Sl Tabs [Nitrostat] 0.4 mg SUBLINGUAL Q5M PRN tab 01/14/17 Allergies Allergy/AdvReac Type Severity Reaction Status Date / Time latex Allergy Rash/Hives Verified 08/28/17 07:37 Milk Containing Products AdvReac THRUSH Verified 08/28/17 07:37 [Dairy] Tetracyclines AdvReac YEAST Verified 08/28/17 07:37 INFECTION- PREFERS NOT TO TAKE tramadol AdvReac Nausea & Verified 08/28/17 07:37 Vomiting ENVIRONMENTAL ALLERGIES Allergy SINUS Uncoded 08/28/17 06:28 SYMPTOMS-GRASS TREES,DUST,POLLENS,MOLD Review of Systems ROS Statement: Those systems with pertinent positive or pertinent negative responses have been documented in the HPI. ROS Other: All systems not noted in ROS Statement are negative. Past Medical History Past Medical History: Atrial Fibrillation, Asthma, Coronary Artery Disease (CAD) , CVA/TIA, Diabetes Mellitus, Fibromyalgia, Hyperlipidemia, Hypertension, Myocardial Infarction ([place]), Osteoarthritis (OA), Skin Disorder, Thyroid Disorder Additional Past Medical History / Comment(s): BOTTOM 1/3 HEART DAMAGED-HEART MURMUR, CHRONIC CONSTIPATION,LOWER LEGS RED & PURPLE IN [id number] VERY DRY,SINUS HEADACHES, HX ANEMIA, HYST in 2014-was told cancer, gout. stage III kidney disease. 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.FEET- NUMBNESS IF STANDS FOR MORE THAN 5 MINUTES,STROKE @ AGE 39-MILD PARALYSIS LT SIDE-AFFECTED FACE-LT EYELID Last Myocardial Infarction Date:: UNKNOWN History of Any Multi-Drug Resistant Organisms: None Reported Past Surgical History: Appendectomy, Cardiac Ablation, Cholecystectomy, Heart Catheterization, Heart Catheterization With Stent, Hysterectomy Additional Past Surgical History / Comment(s): PARTIAL HYSTERECTOMY 03/18/14 @ [facility]. CATARACT BLACK. WITH IMPLANTS. HEART CATH X 3 TOTAL 3 STENTS Past Anesthesia/Blood Transfusion Reactions: Motion Sickness Additional Past Anesthesia/Blood Transfusion Reaction / Comment(s): states needs general anesthesia, not IV sedation Date of Last Stent Placement:: UNKNOWN Past Psychological History: Depression Smoking Status: Never smoker Past Alcohol Use History: Rare Past Drug Use History: None Reported - Past Family History Mother Family Medical History: Cancer Additional Family Medical History / Comment(s): STATES CA WAS ALL OVER- NOT SURE OF PRIMARY SITE General Exam - General Exam Comments Initial Comments: This is a well-developed morbidly obese female who is awake alert oriented 3 Limitations: no limitations General appearance: alert, anxious, in distress Head exam: Present: atraumatic, normocephalic, normal inspection Eye exam: Present: normal appearance, PERRL, EOMI. Absent: scleral icterus, conjunctival injection, periorbital swelling ENT exam: Present: normal exam, mucous membranes moist Neck exam: Present: normal inspection. Absent: tenderness, meningismus, lymphadenopathy Respiratory exam: Present: normal lung sounds bilaterally, chest wall tenderness. Absent: respiratory distress, wheezes, rales, rhonchi, stridor Cardiovascular Exam: Present: regular rate, normal rhythm, normal heart sounds. Absent: systolic murmur, diastolic murmur, rubs, gallop, clicks GI/Abdominal exam: Present: soft, tenderness (Right lower quadrant tenderness palpation no guarding or rebound some right flank tenderness palpation.), normal bowel sounds. Absent: distended, guarding, rebound, rigid Rectal exam: Present: deferred Extremities exam: Present: normal inspection, full ROM, normal capillary refill. Absent: tenderness, pedal edema, joint swelling, calf tenderness Back exam: Present: normal inspection, full ROM, CVA tenderness (R) Neurological exam: Present: alert, oriented X3, CN II-XII intact Psychiatric exam: Present: normal affect, normal mood Skin exam: Present: warm, dry, intact, normal color. Absent: rash Course Vital Signs 08/28/17 08/28/17 08/28/17 06:22 07:25 09:05 Temperature 98 F Pulse Rate 89 85 84 Respiratory 20 20 20 Rate Blood Pressure 172/78 170/75 169/75 O2 Sat by Pulse 93 L 95 95 Oximetry 08/28/17 08/28/17 10:20 11:14 Temperature Pulse Rate 86 73 Respiratory 16 16 Rate Blood Pressure 142/66 141/62 O2 Sat by Pulse 94 L 95 Oximetry - Reevaluation(s) Reevaluation #1: 08/28/17 10:38 Patient started complaining of retrosternal chest pain 7/10 severity. It was not reproducible. EKG was performed showing no definite acute changes she did however respond to nitroglycerin with resolution of the pain. Of note she has of history heart disease and 3 stents. Reevaluation #2: 08/28/17 10:39 Repeat EKG was performed showing sinus rhythm 85. Interval 150 to QRS 78 daily since QTC of 46/43 low-voltage this is compared with the previous one done today which shows no definite acute changes. Medical Decision Making - Medical Decision Making I did discuss findings with the patient and with Dr. Pastor patient will be admitted with neurology consultation also cardiology consultation. The patient is currently chest pain-free - Lab Data Result diagrams: 08/28/17 06:54 08/28/17 06:54 Lab Results 08/28/17 08/28/17 08/28/17 Range/Units 06:54 06:54 06:54 WBC 11.8 H (3.8-10.6) k/uL RBC 3.93 (3.80-5.40) m/uL Hgb 9.6 L (11.4-16.0) gm/dL Hct 31.0 L (34.0-46.0) % MCV 78.9 L (80.0-100.0) fL MCH 24.4 L (25.0-35.0) pg MCHC 30.9 L (31.0-37.0) g/dL RDW 17.7 H (11.5-15.5) % Plt Count 243 (150-450) k/uL Neutrophils % 81 % Lymphocytes % 12 % Monocytes % 4 % Eosinophils % 3 % Basophils % 0 % Neutrophils # 9.5 H (1.3-7.7) k/uL Lymphocytes # 1.4 (1.0-4.8) k/uL Monocytes # 0.5 (0-1.0) k/uL Eosinophils # 0.3 (0-0.7) k/uL Basophils # 0.0 (0-0.2) k/uL Hypochromasia Marked Anisocytosis Slight Microcytosis Slight Sodium 140 (137-145) mmol/L Potassium 4.6 (3.5-5.1) mmol/L Chloride 105 (98-107) mmol/L Carbon Dioxide 23 (22-30) mmol/L Anion Gap 12 mmol/L BUN 21 H (7-17) mg/dL Creatinine 0.77 (0.52-1.04) mg/dL Est GFR (CKD-EPI)AfAm >90 (>60 ml/min/1.73 sqM) Est GFR (CKD-EPI)NonAf 83 (>60 ml/min/1.73 sqM) Glucose 146 H (74-99) mg/dL Plasma Lactic Acid Dev 1.3 (0.7-2.0) mmol/L Calcium 8.5 (8.4-10.2) mg/dL Magnesium (1.6-2.3) mg/dL Total Bilirubin 0.4 (0.2-1.3) mg/dL AST 19 (14-36) U/L ALT 22 (9-52) U/L Alkaline Phosphatase 87 (38-126) U/L Total Creatine Kinase (30-135) U/L CK-MB (CK-2) (0.0-2.4) ng/mL CK-MB (CK-2) Rel Index Total Protein 6.5 (6.3-8.2) g/dL Albumin 3.7 (3.5-5.0) g/dL Amylase 59 (30-110) U/L Lipase 316 H (23-300) U/L Urine Color Urine Appearance (Clear) Urine pH (5.0-8.0) Ur Specific Minerv[place] (1.001-1.035) Urine Protein (Negative) Urine Glucose (UA) (Negative) Urine Ketones (Negative) Urine Blood (Negative) Urine Nitrite (Negative) Urine Bilirubin (Negative) Urine Urobilinogen (<2.0) mg/dL Ur Leukocyte Esterase (Negative) Urine RBC (0-5) /hpf Urine WBC (0-5) /hpf Urine WBC Clumps (None) /hpf Ur Squamous Epith Cells (0-4) /hpf Urine Bacteria (None) /hpf Urine Mucus (None) /hpf 05/24/18 05/24/18 05/24/18 Range/Units 06:54 06:54 08:29 WBC (3.8-10.6) k/uL RBC (3.80-5.40) m/uL Hgb (11.4-16.0) gm/dL Hct (34.0-46.0) % MCV (80.0-100.0) fL MCH (25.0-35.0) pg MCHC (31.0-37.0) g/dL RDW (11.5-15.5) % Plt Count (150-450) k/uL Neutrophils % % Lymphocytes % % Monocytes % % Eosinophils % % Basophils % % Neutrophils # (1.3-7.7) k/uL Lymphocytes # (1.0-4.8) k/uL Monocytes # (0-1.0) k/uL Eosinophils # (0-0.7) k/uL Basophils # (0-0.2) k/uL Hypochromasia Anisocytosis Microcytosis Sodium 140 (137-145) mmol/L Potassium 4.6 (3.5-5.1) mmol/L Chloride 104 (98-107) mmol/L Carbon Dioxide 22 (22-30) mmol/L Anion Gap 14 mmol/L BUN 21 H (7-17) mg/dL Creatinine 0.78 (0.52-1.04) mg/dL Est GFR (CKD-EPI)AfAm >90 (>60 ml/min/1.73 sqM) Est GFR (CKD-EPI)NonAf 82 (>60 ml/min/1.73 sqM) Glucose 148 H (74-99) mg/dL Plasma Lactic Acid Dev (0.7-2.0) mmol/L Calcium 8.8 (8.4-10.2) mg/dL Magnesium 1.5 L (1.6-2.3) mg/dL Total Bilirubin 0.4 (0.2-1.3) mg/dL AST 20 (14-36) U/L ALT 26 (9-52) U/L Alkaline Phosphatase 91 (38-126) U/L Total Creatine Kinase 35 (30-135) U/L CK-MB (CK-2) 0.6 (0.0-2.4) ng/mL CK-MB (CK-2) Rel Index 1.7 Total Protein 6.5 (6.3-8.2) g/dL Albumin 3.7 (3.5-5.0) g/dL Amylase 67 (30-110) U/L Lipase 309 H (23-300) U/L Urine Color Yellow Urine Appearance Cloudy H (Clear) Urine pH 6.0 (5.0-8.0) Ur Specific [place] 1.013 (1.001-1.035) Urine Protein 1+ H (Negative) Urine Glucose (UA) Negative (Negative) Urine Ketones Negative (Negative) Urine Blood Large H (Negative) Urine Nitrite Negative (Negative) Urine Bilirubin Negative (Negative) Urine Urobilinogen <2.0 (<2.0) mg/dL Ur Leukocyte Esterase Large H (Negative) Urine RBC >182 H (0-5) /hpf Urine WBC 64 H (0-5) /hpf Urine WBC Clumps Few H (None) /hpf Ur Squamous Epith Cells 1 (0-4) /hpf Urine Bacteria Rare H (None) /hpf Urine Mucus Rare H (None) /hpf - EKG Data -: EKG Interpreted by [place] EKG shows normal: sinus rhythm (Sinus rhythm rate is 76 ID interval 174 QRS 86 QT since QTC of/459 low-voltage QRS) - Radiology Data Radiology results: report reviewed (I did review the imaging and reports are is evidence of a right side ureterolithiasis 1 cm x 1.2 cm with hydronephrosis also a focus of air within the upper pole of the pelvic calyceal system), image reviewed Critical Care Time Critical Care Time: Yes Critical Care Time: 31 minutes of critical care time which includes initial presentation with history physical labs x-rays several reevaluation of the patient evaluation the patient for chest pain. Review of all labs and imaging. Discussed with Dr. Pastor discussion with urology. Disposition Clinical Impression: Unstable angina, Chest pain, Ureterolithiasis, Pyelonephritis Disposition: ADMITTED IP TO THIS [facility] Condition: Stable Referrals: Lor Deluca MD [Primary Care Provider] - 1-2 days
[2017-08-28] MEDS ORDERED: ONDANSETRON 4 MG/2 ML VIAL IVP STA (07:52)
[2017-08-28 08:29] LABS: ALT 26 U/L (9-52); AST 20 U/L (14-36); Albumin 3.7 g/dL (3.5-5.0); Alkaline Phosphatase 91 U/L (38-126); Amylase 67 U/L (30-110); Anion Gap 14 mmol/L; Blood Urea Nitrogen 21 mg/dL (7-17); Calcium 8.8 mg/dL (8.4-10.2); Carbon Dioxide 22 mmol/L (22-30); Chloride 104 mmol/L (98-107); Glucose 148 mg/dL (74-99); Lipase 309 U/L (23-300); Magnesium 1.5 mg/dL (1.6-2.3); Potassium 4.6 mmol/L (3.5-5.1); Sodium 140 mmol/L (137-145); Total Bilirubin 0.4 mg/dL (0.2-1.3); Total Protein 6.5 g/dL (6.3-8.2)
[2017-08-28 08:44] LABS: Appearance,Urine Cloudy (Clear); Bacteria,Urine Rare /hpf; Bilirubin,Urine Negative (Negative); Blood,Urine Large (Negative); Color,Urine Yellow; Glucose,Urine (UA) Negative (Negative); Ketones,Urine Negative (Negative); Leukocyte Esterase,Urine Large (Negative); Mucus,Urine Rare /hpf; Nitrite,Urine Negative (Negative); Protein,Urine 1+ (Negative); RBC,Urine >182 /hpf (0-5); Specific Gravity,Urine 1.013 (1.001-1.035); Squamous Epithelial Cell,Urine 1 /hpf (0-4); Urobilinogen,Urine <2.0 mg/dL (<2.0); WBC,Urine 64 /hpf (0-5)
--- NOTE | 2017-08-28 08:58 | CT ---
EXAMINATION TYPE: CT abdomen pelvis wo con DATE OF EXAM: 08/28/2017 COMPARISON: 01/05/2014 HISTORY: Abdominal pain for 1 day[address] Constipation for [address] DLP: 1983.30 mGycm Examination of the solid and hollow viscera is limited given the lack of contrast. FINDINGS: LUNG BASES: No evidence for nodule. No evidence for infiltrate. Left basilar linear atelectasis or pa renchymal scarring. LIVER/GB: The gallbladder is surgically absent. No space-occupying hepatic lesion. PANCREAS: No pancreatic mass identified. No inflammatory process seen. SPLEEN: No evidence for splenomegaly. No intrasplenic lesions seen. ADRENALS: No adrenal nodules identified. No evidence for thickening. KIDNEYS: 1.0 x 1.2 cm right UPJ calculus resulting in mild to moderate hydronephrosis. There is a foc us of air within an upper pole pelvicalyceal system which may be from recent instrumentation versus i nfection. Correlate clinically. Additional smaller nonobstructing calculi identified overlying the lo wer pole of the right kidney as well as scattered within the left kidney. Renal vascular calcificatio ns noted. Nonspecific hypoattenuating lesion upper pole right kidney is unchanged from prior examinat ion. BOWEL: Appendix has a normal appearance. No evidence of bowel obstruction. No inflammatory process. Lymph nodes: No evidence for adenopathy greater than 1 cm. Abdominal aorta: Atheromatous changes seen. No evidence for aneurysm. Genital organs: Hysterectomy changes noted. No adnexal masses.. Other: Degenerative changes lumbar spine.. IMPRESSION: 1. Right UPJ calculus as discussed above resulting in the right-sided hydronephrosis. There is a focu s of air within an upper pole pelvicalyceal system which may be from recent instrumentation versus in fection. Correlate clinically.
[2017-08-28] MEDS ORDERED: TAMSULOSIN 0.4 MG CAP.ER.24H PO STA (09:06)
[2017-08-28] MEDS ORDERED: SODIUM CHLORIDE 0.9% 1,000 ML IV STA ×2 (09:06)
[2017-08-28] MEDS ORDERED: KETOROLAC 30 MG/ML 1 ML VIAL IVP STA (09:09)
[2017-08-28 09:13] LABS: Creatine Kinase MB 0.6 ng/mL (0.0-2.4)
[2017-08-28] MEDS ORDERED: cefTRIAXone IN SWFI 1,000 MG/10 ML SYRINGE IVP STA ×2 (09:18→11:20)
[2017-08-28] MEDS ORDERED: NITROGLYCERIN SL TABS 0.4 MG TAB SUBLINGUAL STA (10:07)
[2017-08-28] MEDS ORDERED: NITROGLYCERIN SL TABS 0.4 MG TAB SUBLINGUAL PRN (11:32)
[2017-08-28] MEDS ORDERED: SODIUM CHLORIDE 5% OPHTH DROPS 15 ML BTL BOTH EYES PRN (11:36)
[2017-08-28] MEDS ORDERED: FAMOTIDINE 20 MG TAB PO PRN (11:36)
[2017-08-28 14:08] LABS: Creatine Kinase MB 0.6 ng/mL (0.0-2.4); Troponin I 0.014 ng/mL (0.000-0.034)
[2017-08-28] MEDS: INSULIN ASPART 100 UNIT/ML 1 ML 10 ML VIAL SQ SCH ×3 (16:07→21:33)
[2017-08-28] MEDS: IPRATROPIUM-ALBUTEROL 3 ML NEB INHALATION PRN ×2 (16:10→19:19)
--- NOTE | 2017-08-28 17:41 | P.GSCN ---
History of Present Illness Consult date: 08/28/17 Reason for Consult: Right UPJ calculus Requesting physician: Jaydon Pastor History of present illness: The patient is a 61-year-old white female with a history of urolithiasis. She presents with a several-day history of right flank pain, which became severe today. She presented to the emergency room and underwent a computed tomography scan, which revealed right hydronephrosis due to a 12 mm right UPJ calculus. There was seen within the intrarenal collecting system on the right. Additional bilateral renal calculi were noted. She developed chest pain in the emergency room and was subsequently admitted. Troponin levels are normal. The chest pain has almost resolved. Review of Systems - Constitutional Denies chills, Denies fever - Gastrointestinal Reports nausea, Denies constipation, Denies vomiting - Genitourinary Genitourinary: Reports flank pain, Reports kidney stones, Denies dysuria, Denies hematuria Past Medical History Past Medical History: Atrial Fibrillation, Asthma, Coronary Artery Disease (CAD) , Heart Failure, CVA/TIA, Diabetes Mellitus, Deep Vein Thrombosis (DVT), Fibromyalgia, Hyperlipidemia, Hypertension, Myocardial Infarction ([place]), Osteoarthritis (OA), Pulmonary Embolus (PE), Skin Disorder, Thyroid Disorder Additional Past Medical History / Comment(s): rt side dominant,BOTTOM 1/3 HEART DAMAGED-HEART MURMUR,cardiomyopathy,pt states she ahs ahd 4 mi's CHRONIC CONSTIPATION, ECZEMA-SKIN VERY DRY,SINUS HEADACHES, HX ANEMIA, HYST in 2014-was told cancer, gout. stage III kidney disease, past kidneys tone. 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.FEET- NUMBNESS IF STANDS FOR MORE THAN 5 MINUTES,STROKE @ AGE 39-MILD weakness LT SIDE uses cane when up-AFFECTED FACE-LT EYELID, neuropathy, lt hand tendonitis Last Myocardial Infarction Date:: UNKNOWN History of Any Multi-Drug Resistant Organisms: None Reported Past Surgical History: Appendectomy, Cardiac Ablation, Cholecystectomy, Heart Catheterization, Heart Catheterization With Stent, Hysterectomy Additional Past Surgical History / Comment(s): PARTIAL HYSTERECTOMY 03/18/14 @ [facility]. CATARACT BLACK. WITH IMPLANTS. HEART CATH X 3 TOTAL 3 STENTS Past Anesthesia/Blood Transfusion Reactions: Motion Sickness Additional Past Anesthesia/Blood Transfusion Reaction / Comm: states needs general anesthesia, not IV sedation Date of Last Stent Placement:: UNKNOWN Smoking Status: Former smoker - Past Family History Father Additional Family Medical History / Comment(s): "HARDENEING OF THE ARTERIES AT AGE 41. SMOKED AND DRANK ETOH Mother Family Medical History: Cancer Additional Family Medical History / Comment(s): STATES CA WAS ALL OVER- NOT SURE OF PRIMARY SITE Medications and Allergies Home Medications Medication Instructions Recorded Confirmed Type Isosorbide Mononitrate ER [Imdur] 30 mg PO DAILY 05/12/14 08/28/17 History Metoprolol Tartrate [Lopressor] 25 mg PO BID 05/12/14 08/28/17 History Cyanocobalamin [Vitamin B-12] 1,000 mcg PO DAILY 02/17/15 08/28/17 History metFORMIN HCL 1,000 mg PO BID-W/MEALS 02/17/15 08/28/17 History Nitroglycerin Sl Tabs [Nitrostat] 0.4 mg SUBLINGUAL Q5M PRN tab 01/14/17 Rx Famotidine [Pepcid] 20 mg PO BID PRN 08/28/17 08/28/17 History Febuxostat [Uloric] 40 mg PO DAILY 08/28/17 08/28/17 History Ferrous Sulfate [Feosol] 325 mg PO BID 08/28/17 08/28/17 History Furosemide [Lasix] 40 mg PO DAILY 08/28/17 08/28/17 History Glimepiride [Amaryl] 0.5 mg PO AC-BID 08/28/17 08/28/17 History Ipratropium-Albuterol Nebulize 3 ml INHALATION RT-QID PRN 08/28/17 08/28/17 History [Duoneb 0.5 mg-3 mg/3 ml Soln] Levothyroxine Sodium [Synthroid] 112 mcg PO DAILY 08/28/17 08/28/17 History Loratadine [Claritin] 10 mg PO DAILY 08/28/17 08/28/17 History Meloxicam [Mobic] 15 mg PO DAILY 08/28/17 08/28/17 History Montelukast [Singulair] 10 mg PO HS 08/28/17 08/28/17 History Sodium Chloride 5% Ophth Soln 1 drops BOTH EYES DAILY PRN 08/28/17 08/28/17 History [Trini 128] Spironolactone [Aldactone] 25 mg PO DAILY 08/28/17 08/28/17 History Allergies Allergy/AdvReac Type Severity Reaction Status Date / Time latex Allergy Rash/Hives Verified 08/28/17 07:37 Milk Containing Products AdvReac THRUSH Verified 08/28/17 07:37 [Dairy] Tetracyclines AdvReac YEAST Verified 08/28/17 07:37 INFECTION- PREFERS NOT TO TAKE tramadol AdvReac Nausea & Verified 08/28/17 07:37 Vomiting ENVIRONMENTAL ALLERGIES Allergy SINUS Uncoded 08/28/17 06:28 SYMPTOMS-GRASS TREES,DUST,POLLENS,MOLD Surgical - Exam Vital Signs Pulse Resp BP Pulse Ox 89 20 172/78 93 L 08/28/17 06:22 08/28/17 06:22 08/28/17 06:22 08/28/17 06:22 - General well developed, well nourished, no distress, obese - Respiratory normal respiratory effort - Abdomen Abdomen: soft, tender (Mild right lower quadrant tenderness, bilateral CVA tenderness), no guarding, no rigid, no rebound - Psychiatric oriented to time, oriented to person, oriented to place, speech is normal, memory intact Results - Labs 08/28/17 06:54 08/28/17 06:54 Abnormal Lab Results - Last 24 Hours (Table) 08/28/17 08/28/17 08/28/17 Range/Units 06:54 06:54 06:54 WBC 11.8 H (3.8-10.6) k/uL Hgb 9.6 L (11.4-16.0) gm/dL Hct 31.0 L (34.0-46.0) % MCV 78.9 L (80.0-100.0) fL MCH 24.4 L (25.0-35.0) pg MCHC 30.9 L (31.0-37.0) g/dL RDW 17.7 H (11.5-15.5) % Neutrophils # 9.5 H (1.3-7.7) k/uL BUN 21 H 21 H (7-17) mg/dL Glucose 146 H 148 H (74-99) mg/dL Magnesium 1.5 L (1.6-2.3) mg/dL Total Creatine Kinase (30-135) U/L Lipase 316 H 309 H (23-300) U/L Urine Appearance (Clear) Urine Protein (Negative) Urine Blood (Negative) Ur Leukocyte Esterase (Negative) Urine RBC (0-5) /hpf Urine WBC (0-5) /hpf Urine WBC Clumps (None) /hpf Urine Bacteria (None) /hpf Urine Mucus (None) /hpf 08/28/17 08/28/17 Range/Units 08:29 13:14 WBC (3.8-10.6) k/uL Hgb (11.4-16.0) gm/dL Hct (34.0-46.0) % MCV (80.0-100.0) fL MCH (25.0-35.0) pg MCHC (31.0-37.0) g/dL RDW (11.5-15.5) % Neutrophils # (1.3-7.7) k/uL BUN (7-17) mg/dL Glucose (74-99) mg/dL Magnesium (1.6-2.3) mg/dL Total Creatine Kinase 26 L (30-135) U/L Lipase (23-300) U/L Urine Appearance Cloudy H (Clear) Urine Protein 1+ H (Negative) Urine Blood Large H (Negative) Ur Leukocyte Esterase Large H (Negative) Urine RBC >182 H (0-5) /hpf Urine WBC 64 H (0-5) /hpf Urine WBC Clumps Few H (None) /hpf Urine Bacteria Rare H (None) /hpf Urine Mucus Rare H (None) /hpf Microbiology - Last 24 Hours (Table) 08/28/17 08:29 Urine Culture - Preliminary Urine,Voided Diabetes panel 08/28/17 08/28/17 Range/Units 06:54 06:54 Sodium 140 140 (137-145) mmol/L Potassium 4.6 4.6 (3.5-5.1) mmol/L Chloride 105 104 (98-107) mmol/L Carbon Dioxide 23 22 (22-30) mmol/L BUN 21 H 21 H (7-17) mg/dL Creatinine 0.77 0.78 (0.52-1.04) mg/dL Glucose 146 H 148 H (74-99) mg/dL Calcium 8.5 8.8 (8.4-10.2) mg/dL AST 19 20 (14-36) U/L ALT 22 26 (9-52) U/L Alkaline Phosphatase 87 91 (38-126) U/L Total Protein 6.5 6.5 (6.3-8.2) g/dL Albumin 3.7 3.7 (3.5-5.0) g/dL Calcium panel 08/28/17 08/28/17 Range/Units 06:54 06:54 Calcium 8.5 8.8 (8.4-10.2) mg/dL Albumin 3.7 3.7 (3.5-5.0) g/dL Pituitary panel 08/28/17 08/28/17 Range/Units 06:54 06:54 Sodium 140 140 (137-145) mmol/L Potassium 4.6 4.6 (3.5-5.1) mmol/L Chloride 105 104 (98-107) mmol/L Carbon Dioxide 23 22 (22-30) mmol/L BUN 21 H 21 H (7-17) mg/dL Creatinine 0.77 0.78 (0.52-1.04) mg/dL Glucose 146 H 148 H (74-99) mg/dL Calcium 8.5 8.8 (8.4-10.2) mg/dL Adrenal panel 08/28/17 08/28/17 Range/Units 06:54 06:54 Sodium 140 140 (137-145) mmol/L Potassium 4.6 4.6 (3.5-5.1) mmol/L Chloride 105 104 (98-107) mmol/L Carbon Dioxide 23 22 (22-30) mmol/L BUN 21 H 21 H (7-17) mg/dL Creatinine 0.77 0.78 (0.52-1.04) mg/dL Glucose 146 H 148 H (74-99) mg/dL Calcium 8.5 8.8 (8.4-10.2) mg/dL Total Bilirubin 0.4 0.4 (0.2-1.3) mg/dL AST 19 20 (14-36) U/L ALT 22 26 (9-52) U/L Alkaline Phosphatase 87 91 (38-126) U/L Total Protein 6.5 6.5 (6.3-8.2) g/dL Albumin 3.7 3.7 (3.5-5.0) g/dL - Imaging CT scan - abdomen: report reviewed, image reviewed Assessment and Plan (1) Hydronephrosis with urinary obstruction due to ureteral calculus Current Visit: Yes Status: Acute Code(s): N13.2 - HYDRONEPHROSIS WITH RENAL AND URETERAL CALCULOUS OBSTRUCTION SNOMED Code(s): 242977945 Plan: The patient is admitted with right hydronephrosis due to a 12 mm right UPJ calculus. Urinalysis is suggestive of infection, and the WBC count is mildly elevated. Given this and the air within the collecting system, it is appropriate to assume she has acute pyelonephritis. She is receiving Rocephin, pending a urine culture result. I have suggested she undergo right ureteral stent insertion to relieve the obstruction. The rationale for the procedure was reviewed in detail, as were potential risks. These include anesthesia and ureteral injury. Stent placement will be performed by myself or Dr. You tomorrow. The stone will be removed electively in several weeks, after the infection has resolved and her condition has returned to baseline. Time with Patient: Greater than 30
[2017-08-28 19:10] LABS: Glucose,Whole Blood 200 mg/dL (75-99)
[2017-08-28] MEDS: GLIMEPIRIDE 1 MG TAB PO SCH (19:32)
[2017-08-28] MEDS: metFORMIN 500 MG TAB PO SCH (19:33)
[2017-08-28 20:05] LABS: Creatine Kinase MB 1.3 ng/mL (0.0-2.4)
[2017-08-28 20:11] LABS: Troponin I 0.043 ng/mL (0.000-0.034)
[2017-08-28] MEDS ORDERED: METOPROLOL TARTRATE 25 MG TAB PO SCH (21:00)
[2017-08-28 21:03] LABS: Glucose,Whole Blood 222 mg/dL (75-99)
[2017-08-28] MEDS: MONTELUKAST 10 MG TAB PO SCH (21:32)
[2017-08-28] MEDS: ALPRAZolam 0.25 MG TAB PO PRN (21:32)
[2017-08-28] MEDS: cefTRIAXone IN SWFI 1,000 MG/10 ML SYRINGE IVP SCH (21:32)
[2017-08-28] MEDS: FERROUS SULFATE 325 MG TAB PO SCH (21:32)
[2017-08-28] MEDS ORDERED: HEPARIN SODIUM,PORCINE 5,000 UNIT/ML 1 ML VIAL IV ONE (22:03)
[2017-08-28] MEDS ORDERED: HEPARIN SODIUM,PORCINE 5,000 UNIT/ML 1 ML VIAL IV PRN (22:03)
[2017-08-28] MEDS ORDERED: HEPARIN SODIUM,PORCINE/D5W PMX 25,000 UNIT in DEXTROSE/WATER 1 500ML.BAG IV SCH (22:15)
[2017-08-28 22:42] LABS: INR 1.2 (<1.2); Partial Thromboplastin Time 22.9 sec (22.0-30.0); Prothrombin Time 11.2 sec (9.0-12.0)
[2017-08-29 05:48] LABS: Cholesterol 171 mg/dL (<200); HDL Cholesterol 49 mg/dL (40-60); LDL Cholesterol,Calculated 99 mg/dL (0-99); Triglycerides 117 mg/dL (<150)
[2017-08-29 06:19] LABS: Glucose,Whole Blood 106 mg/dL (75-99)
[2017-08-29] MEDS: INSULIN ASPART 100 UNIT/ML 1 ML 10 ML VIAL SQ SCH ×4 (06:46→21:46)
[2017-08-29] MEDS: LEVOTHYROXINE 112 MCG TAB PO SCH (06:47)
[2017-08-29] MEDS: GLIMEPIRIDE 1 MG TAB PO SCH ×2 (08:02→16:41)
[2017-08-29] MEDS: metFORMIN 500 MG TAB PO SCH (08:02)
[2017-08-29] MEDS: cefTRIAXone IN SWFI 1,000 MG/10 ML SYRINGE IVP SCH ×2 (08:14→20:53)
[2017-08-29] MEDS: ALLOPURINOL 100 MG TAB PO SCH (08:16)
[2017-08-29] MEDS: ALPRAZolam 0.25 MG TAB PO PRN (08:16)
[2017-08-29] MEDS: LORATADINE 10 MG TAB PO SCH (08:20)
[2017-08-29] MEDS: METOPROLOL TARTRATE 50 MG TAB PO SCH ×2 (08:20→20:53)
[2017-08-29] MEDS: ISOSORBIDE MONONITRATE ER 30 MG TAB.ER.24H PO SCH (08:21)
[2017-08-29] MEDS: SPIRONOLACTONE 25 MG TAB PO SCH (08:21)
[2017-08-29] MEDS: FUROSEMIDE 40 MG TAB PO SCH (08:22)
[2017-08-29] MEDS ORDERED: ASPIRIN 325 MG TAB PO SCH (09:00)
[2017-08-29] MEDS ORDERED: MELOXICAM 7.5 MG TAB PO SCH (09:00)
--- NOTE | 2017-08-29 09:00 | P.CRDCN ---
History of Present Illness Consult date: 08/29/17 Requesting physician: Lor Deluca Consult reason: chest pain Chief complaint: Right flank pain, chest pain History of present illness: This is a pleasant 61-year-old female with history of diabetes, hypertension, hyperlipidemia, coronary artery disease with prior stent placement , prior CVA, history of PE, patient also has history of paroxysmal atrial fibrillation and has had a prior ablation performed. Patient used to follow with Dr. Aguila in the office, she states for the past several years she follows with . She presents to the hospital on this occasion with symptoms of right flank pain, she states that she had been constipated for a few days, finally had a large bowel movement and thought maybe her pain was from that, in spite of moving her bowels she continued to have severe right CVA pain, it did radiate around to the right lower quadrant abdominal area. Patient underwent a computed tomography scan of the abdomen which revealed right hydronephrosis due to a 12 mm right calculus. Additional bilateral renal calculi were noted. Patient has been seen in consultation by urology and is scheduled to undergo surgery with stent placement possibly today. Subsequent to her admission here patient did develop severe left-sided chest pain radiating into her jaw and down both arms, she states she had associated shortness of breath. She described the pain as severe in nature. Patient was given nitroglycerin without relief of symptoms, EKG was performed which showed a sinus tachycardia at that time. As of the chest discomfort a cardiology consultation has been requested. Her EKG on admission here showed a normal sinus rhythm with no acute changes. Subsequent EKG shows sinus tachycardia with PVCs. And EKG performed this morning shows a normal sinus rhythm with no acute changes. Patient ultimately got relief of her symptoms after she was given some Xanax. Chest x-ray was performed. Blood pressure on arrival 172/70 with a heart rate in the 80s, 93% on room air. White blood cell count 11.8, hemoglobin 9.6, platelet count 243. Sodium 140, potassium 4.6, BUN 21, creatinine 0.7. Magnesium 1.5, troponins negative 2. At the time of my examination this morning patient is currently chest pain-free. Echocardiogram with Doppler study performed in January 2017 revealed an ejection fraction of 50 -55%. Past Medical History Past Medical History: Atrial Fibrillation, Asthma, Coronary Artery Disease (CAD) , Heart Failure, CVA/TIA, Diabetes Mellitus, Deep Vein Thrombosis (DVT), Fibromyalgia, Hyperlipidemia, Hypertension, Myocardial Infarction ([place]), Osteoarthritis (OA), Pulmonary Embolus (PE), Skin Disorder, Thyroid Disorder Additional Past Medical History / Comment(s): rt side dominant,BOTTOM 1/3 HEART DAMAGED-HEART MURMUR,cardiomyopathy,pt states she ahs ahd 4 mi's CHRONIC CONSTIPATION, ECZEMA-SKIN VERY DRY,SINUS HEADACHES, HX ANEMIA, HYST in 2014-was told cancer, gout. stage III kidney disease, past kidneys tone. 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.FEET- NUMBNESS IF STANDS FOR MORE THAN 5 MINUTES,STROKE @ AGE 39-MILD weakness LT SIDE uses cane when up-AFFECTED FACE-LT EYELID, neuropathy, lt hand tendonitis Last Myocardial Infarction Date:: UNKNOWN History of Any Multi-Drug Resistant Organisms: None Reported Past Surgical History: Appendectomy, Cardiac Ablation, Cholecystectomy, Heart Catheterization, Heart Catheterization With Stent, Hysterectomy Additional Past Surgical History / Comment(s): PARTIAL HYSTERECTOMY 03/18/14 @ [facility]. CATARACT BLACK. WITH IMPLANTS. HEART CATH X 3 TOTAL 3 STENTS Past Anesthesia/Blood Transfusion Reactions: Motion Sickness Additional Past Anesthesia/Blood Transfusion Reaction / Comment(s): states needs general anesthesia, not IV sedation Date of Last Stent Placement:: UNKNOWN Smoking Status: Former smoker - Past Family History Father Additional Family Medical History / Comment(s): "HARDENEING OF THE ARTERIES AT AGE 41. SMOKED AND DRANK ETOH Mother Family Medical History: Cancer Additional Family Medical History / Comment(s): STATES CA WAS ALL OVER- NOT SURE OF PRIMARY SITE Medications and Allergies Home Medications Medication Instructions Recorded Confirmed Type Isosorbide Mononitrate ER [Imdur] 30 mg PO DAILY 05/12/14 08/28/17 History Metoprolol Tartrate [Lopressor] 25 mg PO BID 05/12/14 08/28/17 History Cyanocobalamin [Vitamin B-12] 1,000 mcg PO DAILY 02/17/15 08/28/17 History metFORMIN HCL 1,000 mg PO BID-W/MEALS 02/17/15 08/28/17 History Nitroglycerin Sl Tabs [Nitrostat] 0.4 mg SUBLINGUAL Q5M PRN tab 01/14/17 Rx Famotidine [Pepcid] 20 mg PO BID PRN 08/28/17 08/28/17 History Febuxostat [Uloric] 40 mg PO DAILY 08/28/17 08/28/17 History Ferrous Sulfate [Feosol] 325 mg PO BID 08/28/17 08/28/17 History Furosemide [Lasix] 40 mg PO DAILY 08/28/17 08/28/17 History Glimepiride [Amaryl] 0.5 mg PO AC-BID 08/28/17 08/28/17 History Ipratropium-Albuterol Nebulize 3 ml INHALATION RT-QID PRN 08/28/17 08/28/17 History [Duoneb 0.5 mg-3 mg/3 ml Soln] Levothyroxine Sodium [Synthroid] 112 mcg PO DAILY 08/28/17 08/28/17 History Loratadine [Claritin] 10 mg PO DAILY 08/28/17 08/28/17 History Meloxicam [Mobic] 15 mg PO DAILY 08/28/17 08/28/17 History Montelukast [Singulair] 10 mg PO HS 08/28/17 08/28/17 History Sodium Chloride 5% Ophth Soln 1 drops BOTH EYES DAILY PRN 08/28/17 08/28/17 History [Trini 128] Spironolactone [Aldactone] 25 mg PO DAILY 08/28/17 08/28/17 History Allergies Allergy/AdvReac Type Severity Reaction Status Date / Time latex Allergy Rash/Hives Verified 08/28/17 07:37 Milk Containing Products AdvReac THRUSH Verified 08/28/17 07:37 [Dairy] Tetracyclines AdvReac YEAST Verified 08/28/17 07:37 INFECTION- PREFERS NOT TO TAKE tramadol AdvReac Nausea & Verified 08/28/17 07:37 Vomiting ENVIRONMENTAL ALLERGIES Allergy SINUS Uncoded 08/28/17 06:28 SYMPTOMS-GRASS TREES,DUST,POLLENS,MOLD Physical Exam Vitals: Vital Signs Temp Pulse Pulse Resp BP BP Pulse Ox 08/29/17 08:00 98.1 F 81 16 125/74 97 08/29/17 04:00 97.6 F 95 18 100/55 99 08/29/17 00:00 97.4 F L 95 18 115/76 96 08/28/17 20:00 97.0 F L 117 H 18 159/77 97 08/28/17 19:25 108 H 08/28/17 19:19 106 H 08/28/17 16:27 84 08/28/17 16:10 84 08/28/17 16:00 97.9 F 120 H 18 97 08/28/17 15:40 97.8 F 97 21 169/84 100 08/28/17 14:35 85 19 08/28/17 13:29 92 17 178/73 98 08/28/17 12:34 92 19 168/77 98 08/28/17 11:14 73 16 141/62 95 08/28/17 10:20 86 16 142/66 94 L 08/28/17 09:05 84 20 169/75 95 Intake and Output 08/28/17 08/29/17 08/29/17 22:59 06:59 14:59 Intake Total 240 163.667 Balance 240 163.667 Intake: IV 10 0.9 10 Intake, IV Titration 153.667 Amount Heparin Sodium,Porcine/ 153.667 D5w Pmx 25,000 unit In Dextrose/Water 1 500ml. bag @ 8.166 UNITS/KG/HR 20 mls/hr IV .Q24H [facility] Rx #:[id number] Oral 240 Other: Voiding Method Toilet Toilet Weight 122.5 kg PHYSICAL EXAMINATION: GENERAL: HEENT: Head is atraumatic, normocephalic. Pupils equal, round. Sclera anicteric. Conjunctiva are clear. Mucous membranes of the mouth are moist. Neck is supple. There is no elevated jugular venous pressure.] bruit is heard. HEART EXAMINATION: Heart S1 and S2 systolic murmur is heard CHEST EXAMINATION: Lungs are clear to auscultation and precussion. No chest wall tenderness is noted on palpation or with deep breathing. ABDOMEN: Soft, obese, positive right lower quadrant tenderness . Bowel sounds are heard. No organomegaly noted. EXTREMITIES: 2+ peripheral pulses with trace evidence of peripheral edema and no calf tenderness noted. NEUROLOGIC patient is awake, alert and oriented -3. . Results 08/28/17 06:54 08/28/17 06:54 Cardiac Enzymes 08/28/17 08/28/17 08/28/17 Range/Units 06:54 06:54 13:14 CK-MB (CK-2) 0.6 0.6 (0.0-2.4) ng/mL Troponin I <0.012 0.014 (0.000-0.034) ng/mL 08/28/17 Range/Units 18:57 CK-MB (CK-2) 1.3 (0.0-2.4) ng/mL Troponin I 0.043 H* (0.000-0.034) ng/mL Coagulation 08/28/17 08/29/17 Range/Units 22:16 05:08 PT 11.2 (9.0-12.0) sec APTT 22.9 37.4 H (22.0-30.0) sec Lipids 08/29/17 Range/Units 05:08 Triglycerides 117 (<150) mg/dL Cholesterol 171 (<200) mg/dL HDL Cholesterol 49 (40-60) mg/dL Current Medications Generic Name Dose Route Start Last Admin Trade Name Freq PRN Reason Stop Dose Admin Albuterol/Ipratropium 3 ml 08/28/17 11:36 08/28/17 19:19 Duoneb 0.5 Mg-3 Mg/3 Ml Soln INHALATION 3 ml RT-QID PRN Administration Shortness Of Breath Allopurinol 200 mg 08/29/17 09:00 08/29/17 08:16 Zyloprim PO Not Given DAILY [facility] Alprazolam 0.25 mg 08/28/17 20:37 08/29/17 08:16 Xanax PO 0.25 mg TID PRN Administration Anxiety Aspirin 325 mg 08/29/17 09:00 08/29/17 08:18 Aspirin PO 325 mg DAILY [facility]NA Administration Ceftriaxone Sodium 1,000 mg 08/28/17 21:00 08/29/17 08:14 Rocephin IVP 1,000 mg Q12HR [facility] Administration Cyanocobalamin 1,000 mcg 08/29/17 09:00 Vitamin B-12 PO DAILY [facility] Famotidine 20 mg 08/28/17 11:36 Pepcid PO BID PRN Heartburn Ferrous Sulfate 325 mg 08/28/17 21:00 08/28/17 21:32 Feosol PO 325 mg BID [facility] Administration Furosemide 40 mg 08/29/17 09:00 08/29/17 08:22 Lasix PO 40 mg DAILY [facility] Administration Glimepiride 0.5 mg 08/28/17 17:30 08/29/17 08:02 Amaryl PO Not Given AC-BID [facility] Heparin Sodium (Porcine) 0 unit 08/28/17 22:03 Heparin IV PER PROTOCOL PRN Low PTT Protocol Heparin Sodium/Dextrose 25,000 500 mls @ 20 mls/hr 08/28/17 22:15 08/29/17 06 :12 unit/ IV Solution IV 11.166 units/kg/hr .Q24H [facility] 27.35 mls/hr Protocol Titration 8.166 UNITS/KG/HR Insulin Aspart 0 unit 08/28/17 12:30 08/29/17 06:46 Novolog SQ Not Given ACHS [facility] Protocol Isosorbide Mononitrate 30 mg 08/29/17 09:00 08/29/17 08:21 Imdur PO 30 mg DAILY [facility] Administration Levothyroxine Sodium 112 mcg 08/29/17 06:30 08/29/17 06:47 Synthroid PO 112 mcg DAILY@0630 [facility] Administration Loratadine 10 mg 08/29/17 09:00 08/29/17 08:20 Claritin PO 10 mg DAILY [facility] Administration Meloxicam 15 mg 08/29/17 09:00 08/29/17 08:19 Mobic PO 15 mg DAILY [facility] Administration Metformin HCl 1,000 mg 08/28/17 17:30 08/29/17 08:02 Glucophage PO Not Given BID-W/MEALS [facility] Metoprolol Tartrate 50 mg 08/29/17 09:00 08/29/17 08:20 Lopressor PO 50 mg BID [facility] Administration Montelukast Sodium 10 mg 08/28/17 21:00 08/28/17 21:32 Singulair PO 10 mg HS [facility] Administration Nitroglycerin 0.4 mg 08/28/17 11:32 Nitrostat SUBLINGUAL Q5M PRN Chest Pain Sodium Chloride 1 drops 08/28/17 11:36 Trini 128 BOTH EYES DAILY PRN Dry Eye(s) Spironolactone 25 mg 08/29/17 09:00 08/29/17 08:21 Aldactone PO 25 mg DAILY [facility] Administration Intake and Output 08/28/17 08/29/17 08/29/17 22:59 06:59 14:59 Intake Total 240 163.667 Balance 240 163.667 Intake: IV 10 0.9 10 Intake, IV Titration 153.667 Amount Heparin Sodium,Porcine/ 153.667 D5w Pmx 25,000 unit In Dextrose/Water 1 500ml. bag @ 8.166 UNITS/KG/HR 20 mls/hr IV .Q24H [facility] Rx #:[id number] Oral 240 Other: Voiding Method Toilet Toilet Weight 122.5 kg 08/28/17 06:54 08/28/17 06:54 EKG Interpretations (text) EKG shows normal sinus rhythm with occasional PVCs, no acute changes noted. Assessment and Plan Plan: Assessment and plan #1 symptoms of right flank and right lower quadrant pain with evidence of hydronephrosis with urinary obstruction due to ureteral calculus #2 chest pain, atypical for acute coronary syndrome. Troponins negative 2. EKG shows normal sinus rhythm with no acute changes. #3 hypertension #4 diabetes Number 5 hyperlipidemia #6 prior PE #7 history of stroke #8 paroxysmal atrial fibrillation with prior ablation #9 hypothyroidism #10 anxiety Plan We will obtain an echocardiogram with Doppler study, most recent echo performed in January revealed a normal left ventricular systolic function. Obtain third troponin value. We will also check to see when the patient most recently had a stress test performed in the office. Further recommendations will findings and patient's clinical course. DNP note has been reviewed, I agree with a documented findings and plan of care. Patient was seen and examined.
--- NOTE | 2017-08-29 09:28 | XR ---
EXAMINATION TYPE: XR chest 2V DATE OF EXAM: 08/29/2017 COMPARISON: 08/23/2016 INDICATION: Chest pain TECHNIQUE: Frontal and lateral views of the chest are obtained. FINDINGS: The heart size is enlarged. The pulmonary vasculature is normal. The lungs are clear. IMPRESSION: 1. Cardiomegaly. 2. Exam stable from comparison.
[2017-08-29] MEDS: CYANOCOBALAMIN 500 MCG TAB PO SCH (09:47)
[2017-08-29] MEDS: FERROUS SULFATE 325 MG TAB PO SCH ×2 (09:47→20:53)
--- NOTE | 2017-08-29 11:03 | P.HPIM ---
History of Present Illness H&P Date: 08/28/17 Chief Complaint: Abd Pain, CP, CAD, PE. 61-year-old obese female one of Dr. Deluca's patient with multiple medical problem known to have history of diabetes hypertension hyperlipidemia coronary disease post angioplasty and stent placement in the past, also history of pulmonary embolism paroxysmal atrophy fibrillation with a pre-her ablation still on anticoagulation. Patient not seen Dr. Deluca, seen Dr. Taylor cardiology regular basis also had seen urology in the past for history of kidney stone. Patient presented to [facility] department at [facility] with episode of severe right- sided flank pain started around 4:30 in the morning associated with nausea fever and does not feeling well patient was seen in [facility] department her CT shows very large stone measure 1.2 cm in the right side with hydronephrosis. Patient also had slightly abnormal urine and elevated temperature. As she was in the emergency department developed to have midsternal chest pain and left- sided burning with significant blood pressure been in the 170-190. Patient was giving nitroglycerin had resolve some of her symptoms. Patient will be admitted to the hospital for obstructive uropathy, kidney stone, acute kidney injury with symptomatic kidney stone along with pyelonephritis and chest pain consistent with angina. Review of Systems Constitutional: Reports chronic pain, Reports fatigue, Reports fever, Reports lethargy, Reports sweats, Reports weakness, Reports weight gain, Denies as per HPI, Denies anorexia, Denies chills, Denies chronic headaches, Denies daytime sleepiness, Denies malaise, Denies night sweats, Denies poor appetite, Denies weight loss Eyes: bilateral as per HPI Ears: bilateral: decreased hearing Ears, nose, mouth and throat: Reports nasal discharge, Reports sinus pain, Reports sinus pressure, Denies as per HPI, Denies ant. neck pain, Denies bleeding gums, Denies dental pain, Denies dysphagia, Denies epistaxis, Denies headache, Denies hoarseness, Denies mouth pain, Denies nasal congestion, Denies neck fullness/pressure, Denies neck lump, Denies nose pain, Denies odynophagia, Denies post-nasal drip, Denies swelling in mouth, Denies swelling in throat, Denies sore throat, Denies vertigo, Denies voice changes Cardiovascular: Reports chest pain, Reports decreased exercise tolerance, Reports dyspnea on exertion, Reports edema, Reports leg edema, Reports orthopnea , Reports palpitations, Reports rapid heart beat, Reports shortness of breath, Denies as per HPI, Denies claudication, Denies high blood pressure, Denies irregular heart beat, Denies lightheadedness, Denies paroxysmal nocturnal dyspnea, Denies phlebitis, Denies syncope Gastrointestinal: Reports belching, Reports bloating, Reports change in bowel habits, Reports excessive gas, Reports heartburn, Reports indigestion, Reports nausea, Denies as per HPI, Denies abdominal pain, Denies BRBPR, Denies coffee ground emesis, Denies constipation, Denies diarrhea, Denies dyspepsia, Denies early satiety, Denies hematemesis, Denies hematochezia, Denies jaundice, Denies lactose intolerance, Denies loss of appetite, Denies melena, Denies vomiting Genitourinary: Reports dysuria, Reports flank pain, Reports hematuria, Reports kidney stones, Reports nocturia, Reports pelvic pain, Reports urgency, Reports urinary frequency, Denies as per HPI, Denies abnormal vaginal bleeding, Denies decreased libido, Denies difficulty conceiving, Denies difficulty voiding, Denies dysmenorrhea, Denies dyspareunia, Denies genital sores, Denies hot flashes, Denies incomplete emptying, Denies menorrhagia, Denies mixed incontinence, Denies post void dribbling, Denies , Denies prolapse symptoms, Denies stress incontinence, Denies urge incontinence, Denies vaginal discharge, Denies vaginal dryness, Denies vaginal itching, Denies vaginal odor Menstruation: Denies as per HPI, Denies amenorrhea, Denies amenorrhea on BC, Denies currently menstrual, Denies cycle < 21 days, Denies cycle > 35 days, Denies cycle variable, Denies menses 1-7 days, Denies menses 8 or > days, Denies menses variable, Denies period heavy, Denies period light, Denies period normal, Denies period spotting, Denies post hysterectomy, Denies postmenopausal , Denies premenarcheal Musculoskeletal: Reports arm numbness/tingling, Reports frequent falls, Reports gait dysfunction, Reports low back pain, Reports myalgias, Reports neck pain, Denies as per HPI, Denies atrophy, Denies fractures, Denies hot joints, Denies leg numbness/tingling, Denies limitation of motion, Denies loss of height, Denies morning stiffness, Denies muscle cramps, Denies muscle weakness, Denies neck stiffness, Denies prior amputations, Denies redness of joints, Denies shooting arm pain, Denies shooting leg pain Musculoskeletal: bilateral: ankle pain, ankle stiffness, ankle swelling Integumentary: Reports darkening of skin, Reports rash, Reports striae, Denies as per HPI, Denies acne, Denies boils, Denies brittle nails, Denies change in hair/nails, Denies color changes, Denies depigmentation, Denies dryness, Denies foot/leg ulcers, Denies growths, Denies hirsutism, Denies lesions, Denies onychomycosis, Denies pruritus, Denies sores, Denies unusual bruising, Denies wounds Neurological: Reports aphasia, Reports ataxia, Reports gait dysfunction, Reports paresthesias, Reports tingling, Reports tremors, Reports weakness, Denies as per HPI, Denies balance difficulties, Denies burning pain, Denies change in mentation, Denies change in smell/taste, Denies change in speech, Denies confusion, Denies convulsions, Denies double vision, Denies head injury, Denies headaches, Denies hearing difficulties, Denies lack of coordination, Denies loss of vision, Denies memory loss, Denies migraines, Denies motor disturbance, Denies numbness, Denies paralysis, Denies seizures, Denies sensory deficit, Denies spasticity, Denies syncope, Denies tic, Denies transient paralysis, Denies vertigo, Denies visual changes Psychiatric: Reports anhedonia, Reports anxiety, Reports depression, Reports hopelessness, Denies as per HPI, Denies anxiety attacks, Denies change in appetite, Denies change in libido, Denies change in sleep habits, Denies confusion, Denies difficulty concentrating, Denies disorientation, Denies hallucinations, Denies hypersomnia, Denies insomnia, Denies irritability, Denies memory loss, Denies mood swings, Denies paranoia, Denies sadness/ tearfulness, Denies sleep disturbances, Denies suicidal ideation Endocrine: Reports excessive sweating, Reports fatigue, Reports nocturia, Reports palpitations, Reports polyuria, Denies as per HPI, Denies cold intolerance, Denies deepening of the voice, Denies excessive thirst, Denies flushing, Denies heat intolerance, Denies high blood sugars, Denies increase in ring/shoe/hat size, Denies low blood sugars, Denies polydipsia, Denies polyphagia, Denies proptosis, Denies recent glucocorticoid use, Denies thyroid mass, Denies weight change Hematologic/Lymphatic: Reports easy bruising, Denies as per HPI, Denies easy bleeding, Denies lymphadenopathy, Denies lymphedema, Denies thrombophilia Allergic/Immunologic: Reports allergic rhinitis, Denies as per HPI, Denies anaphylaxis, Denies angioedema, Denies gluten intolerance, Denies persistent infections, Denies seasonal allergies, Denies urticaria, Denies wheezing Past Medical History Past Medical History: Atrial Fibrillation, Asthma, Coronary Artery Disease (CAD) , Heart Failure, CVA/TIA, Diabetes Mellitus, Deep Vein Thrombosis (DVT), Fibromyalgia, Hyperlipidemia, Hypertension, Myocardial Infarction (CO), Osteoarthritis (OA), Pulmonary Embolus (PE), Skin Disorder, Thyroid Disorder Additional Past Medical History / Comment(s): rt side dominant,BOTTOM 1/3 HEART DAMAGED-HEART MURMUR,cardiomyopathy,pt states she ahs ahd 4 mi's CHRONIC CONSTIPATION, ECZEMA-SKIN VERY DRY,SINUS HEADACHES, HX ANEMIA, HYST in 2014-was told cancer, gout. stage III kidney disease, past kidneys tone. 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.FEET- NUMBNESS IF STANDS FOR MORE THAN 5 MINUTES,STROKE @ AGE 39-MILD weakness LT SIDE uses cane when up-AFFECTED FACE-LT EYELID, neuropathy, lt hand tendonitis Last Myocardial Infarction Date:: UNKNOWN History of Any Multi-Drug Resistant Organisms: None Reported Past Surgical History: Appendectomy, Cardiac Ablation, Cholecystectomy, Heart Catheterization, Heart Catheterization With Stent, Hysterectomy Additional Past Surgical History / Comment(s): PARTIAL HYSTERECTOMY 03/18/14 @ [facility]. CATARACT BLACK. WITH IMPLANTS. HEART CATH X 3 TOTAL 3 STENTS Past Anesthesia/Blood Transfusion Reactions: Motion Sickness Additional Past Anesthesia/Blood Transfusion Reaction / Comment(s): states needs general anesthesia, not IV sedation Date of Last Stent Placement:: UNKNOWN Smoking Status: Former smoker - Past Family History Father Additional Family Medical History / Comment(s): "HARDENEING OF THE ARTERIES AT AGE 41. SMOKED AND DRANK ETOH Mother Family Medical History: Cancer Additional Family Medical History / Comment(s): STATES CA WAS ALL OVER- NOT SURE OF PRIMARY SITE Medications and Allergies Home Medications Medication Instructions Recorded Confirmed Type Isosorbide Mononitrate ER [Imdur] 30 mg PO DAILY 05/12/14 08/28/17 History Metoprolol Tartrate [Lopressor] 25 mg PO BID 05/12/14 08/28/17 History Cyanocobalamin [Vitamin B-12] 1,000 mcg PO DAILY 02/17/15 08/28/17 History metFORMIN HCL 1,000 mg PO BID-W/MEALS 02/17/15 08/28/17 History Nitroglycerin Sl Tabs [Nitrostat] 0.4 mg SUBLINGUAL Q5M PRN tab 01/14/17 Rx Famotidine [Pepcid] 20 mg PO BID PRN 08/28/17 08/28/17 History Febuxostat [Uloric] 40 mg PO DAILY 08/28/17 08/28/17 History Ferrous Sulfate [Feosol] 325 mg PO BID 08/28/17 08/28/17 History Furosemide [Lasix] 40 mg PO DAILY 08/28/17 08/28/17 History Glimepiride [Amaryl] 0.5 mg PO AC-BID 08/28/17 08/28/17 History Ipratropium-Albuterol Nebulize 3 ml INHALATION RT-QID PRN 08/28/17 08/28/17 History [Duoneb 0.5 mg-3 mg/3 ml Soln] Levothyroxine Sodium [Synthroid] 112 mcg PO DAILY 08/28/17 08/28/17 History Loratadine [Claritin] 10 mg PO DAILY 08/28/17 08/28/17 History Meloxicam [Mobic] 15 mg PO DAILY 08/28/17 08/28/17 History Montelukast [Singulair] 10 mg PO HS 08/28/17 08/28/17 History Sodium Chloride 5% Ophth Soln 1 drops BOTH EYES DAILY PRN 08/28/17 08/28/17 History [Trini 128] Spironolactone [Aldactone] 25 mg PO DAILY 08/28/17 08/28/17 History Allergies Allergy/AdvReac Type Severity Reaction Status Date / Time latex Allergy Rash/Hives Verified 08/28/17 07:37 Milk Containing Products AdvReac THRUSH Verified 08/28/17 07:37 [Dairy] Tetracyclines AdvReac YEAST Verified 08/28/17 07:37 INFECTION- PREFERS NOT TO TAKE tramadol AdvReac Nausea & Verified 08/28/17 07:37 Vomiting ENVIRONMENTAL ALLERGIES Allergy SINUS Uncoded 08/28/17 06:28 SYMPTOMS-GRASS TREES,DUST,POLLENS,MOLD Physical Exam Vitals: Vital Signs Temp Pulse Resp BP Pulse Ox 08/28/17 16:27 84 08/28/17 16:10 84 08/28/17 15:40 97.8 F 97 21 169/84 100 08/28/17 14:35 85 19 08/28/17 13:29 92 17 178/73 98 08/28/17 12:34 92 19 168/77 98 08/28/17 11:14 73 16 141/62 95 08/28/17 10:20 86 16 142/66 94 L 08/28/17 09:05 84 20 169/75 95 08/28/17 07:25 98 F 85 20 170/75 95 08/28/17 06:22 89 20 172/78 93 L Intake and Output 08/28/17 08/28/17 08/28/17 06:59 14:59 22:59 Other: Weight 122.47 kg - Constitutional General appearance: no average body habitus, no cooperative, no disheveled, no mild distress, no morbidly obese, no acute distress, obese, no severe distress, no thin - EENT Eyes: no abnormal pupil, no anicteric sclerae, no disc margins sharp, no edentulous, no EOMI, no PERRLA, no fundus normal, no photophobia, no dentition normal, no poor dentition, no ptosis, no scleral icterus, normal appearance ENT: no hard of hearing, no hearing grossly normal, no NA/AT, normal oropharynx , no other, pharyngeal erythema, no thrush, no tonsillar exudates, no tonsillar swelling Ears: bilateral: normal - Neck Neck: no lymphadenopathy, normal ROM, no other, no rigidity, no stridor, no thyromegaly Carotids: bilateral: upstroke normal, upstroke delayed Thyroid: bilateral: normal size - Respiratory Respiratory: bilateral: diminished, dullness, rales, wheezing - Cardiovascular Rhythm: regular Heart sounds: normal: S1, S2 Abnormal Heart Sounds: S3 Gallop - Gastrointestinal General gastrointestinal: no absent bowel sounds, decreased bowel sounds, distended, no hepatomegaly, no hyperactive bowel sounds, no normal bowel sounds , organomegaly, no rigid, no scaphoid, no soft, no splenomegaly, tenderness, no umbilical hernia, no ventral hernia - Integumentary Integumentary: no calor, cellulitis, no cyanotic, no decreased turgor, no flushed, no jaundiced, normal, no normal turgor, pale, rash, no ulcer - Neurologic Neurologic: CNII-XII intact - Musculoskeletal Musculoskeletal: gait normal, generalized weakness - Psychiatric Psychiatric: A&O x's 3 Results CBC & Chem 7: 08/28/17 06:54 08/28/17 06:54 Labs: Abnormal Lab Results - Last 24 Hours (Table) 08/28/17 08/28/17 08/28/17 Range/Units 06:54 06:54 06:54 WBC 11.8 H (3.8-10.6) k/uL Hgb 9.6 L (11.4-16.0) gm/dL Hct 31.0 L (34.0-46.0) % MCV 78.9 L (80.0-100.0) fL MCH 24.4 L (25.0-35.0) pg MCHC 30.9 L (31.0-37.0) g/dL RDW 17.7 H (11.5-15.5) % Neutrophils # 9.5 H (1.3-7.7) k/uL BUN 21 H 21 H (7-17) mg/dL Glucose 146 H 148 H (74-99) mg/dL Magnesium 1.5 L (1.6-2.3) mg/dL Total Creatine Kinase (30-135) U/L Lipase 316 H 309 H (23-300) U/L Urine Appearance (Clear) Urine Protein (Negative) Urine Blood (Negative) Ur Leukocyte Esterase (Negative) Urine RBC (0-5) /hpf Urine WBC (0-5) /hpf Urine WBC Clumps (None) /hpf Urine Bacteria (None) /hpf Urine Mucus (None) /hpf 05/24/18 05/24/18 Range/Units 08:29 13:14 WBC (3.8-10.6) k/uL Hgb (11.4-16.0) gm/dL Hct (34.0-46.0) % MCV (80.0-100.0) fL MCH (25.0-35.0) pg MCHC (31.0-37.0) g/dL RDW (11.5-15.5) % Neutrophils # (1.3-7.7) k/uL BUN (7-17) mg/dL Glucose (74-99) mg/dL Magnesium (1.6-2.3) mg/dL Total Creatine Kinase 26 L (30-135) U/L Lipase (23-300) U/L Urine Appearance Cloudy H (Clear) Urine Protein 1+ H (Negative) Urine Blood Large H (Negative) Ur Leukocyte Esterase Large H (Negative) Urine RBC >182 H (0-5) /hpf Urine WBC 64 H (0-5) /hpf Urine WBC Clumps Few H (None) /hpf Urine Bacteria Rare H (None) /hpf Urine Mucus Rare H (None) /hpf Microbiology - Last 24 Hours (Table) 08/28/17 08:29 Urine Culture - Preliminary Urine,Voided Thrombosis Risk Factor Assmnt - DVT/VTE Prophylaxis DVT/VTE Prophylaxis: Pharmacologic Prophylaxis ordered, Mechanical Prophylaxis ordered - Choose All That Apply Each Factor Represents 1 point: Obesity (BMI >25) Each Risk Factor Represents 2 Points: Age 61-74 years Each Risk Factor Represents 3 Points: History of DVT/PE Thrombosis Risk Factor Assessment Total Risk Factor Score: 6 Thrombosis Risk Factor Assessment Level: High Risk Assessment and Plan Plan: 1 acute severe abdominal pain: Combination of kidney stone and pyelonephritis, patient was started on hydration IV antibiotics and urology consultation. 2 large kidney stone in the right side with obstructive uropathy and hydronephrosis. Patient be seen urology might require intervention. 3 pyelonephritis and upper right tract infection most likely brought and caused by the stone. Patient will be on IV antibiotics switch to oral antibiotics when she is more stable. 4 chest pain and angina: Patient is known to have history of coronary disease with multiple angioplasty and stent CK with troponin 3 will be done repeat EKG and patient be seen cardiology. 5 history of pulmonary embolism: Has been on anticoagulation with Xarelto medication will be held for now and patient was switched to heparin drip until were quite sure about intervention for her kidney stone or not. 6 A. fib with RVR: Post ablation still on blood thinner medication and beta go. 7 history of CVA: Stable with no worsening residual at this point. 8 hypertension: Has been on metoprolol 50 mg twice a day and spironolactone. 9 hyperlipidemia: Off statin because of side effect. 10 hypothyroidism: On levothyroxine 112 g. 11 asthma: On albuterol/ipratropium 4 times a day 12 diabetes: Continue patient on Amaryl and metformin, Accu-Chek with sliding scales coverage and be done. 13 GI prophylaxis: On Pepcid daily. 14 DVT prophylaxis: Patient is on anticoagulation already. CODE STATUS: Full code. Admit patient to status inpatient for more than 2 nights.
[2017-08-29] MEDS ORDERED: NITROGLYCERIN SL TABS 0.4 MG TAB SUBLINGUAL PRN (11:48)
[2017-08-29] MEDS ORDERED: ALPRAZolam 0.25 MG TAB PO PRN (11:48)
[2017-08-29] MEDS ORDERED: ATORVASTATIN 80 MG TAB PO STA (11:48)
[2017-08-29] MEDS ORDERED: SODIUM CHLORIDE 0.9% 1,000 ML in EMPTY BAG 1 BAG IV ONE (11:48)
[2017-08-29] MEDS ORDERED: ASPIRIN 325 MG TAB PO STA (11:48)
[2017-08-29 11:55] LABS: Glucose,Whole Blood 99 mg/dL (75-99)
[2017-08-29] MEDS ORDERED: LIDOCAINE 2% INJ 20 MG/ML (20 ML MDV) ONE (12:04)
[2017-08-29] MEDS ORDERED: MIDAZOLAM 2 MG/2 ML VIAL ONE (12:34)
[2017-08-29] MEDS ORDERED: fentaNYL (PF) 50 MCG/ML 2 ML AMP ONE (12:35)
[2017-08-29] MEDS ORDERED: VERAPAMIL 2.5 MG/ML 2 ML AMP ONE (12:37)
[2017-08-29] MEDS ORDERED: SODIUM CHLORIDE 0.9% 500 ML IV ONE (12:39)
[2017-08-29] MEDS ORDERED: MIDAZOLAM 2 MG/2 ML VIAL IVP ONE ×2 (12:40→14:42)
[2017-08-29] MEDS: fentaNYL (PF) 50 MCG/ML 2 ML AMP IVP ONE ×2 (12:40→13:05)
--- NOTE | 2017-08-29 12:43 | P.PN ---
Subjective Progress Note Date: 08/29/17 61-year-old obese female one of Dr. Deluca's patient with multiple medical problem known to have history of diabetes hypertension hyperlipidemia coronary disease post angioplasty and stent placement in the past, also history of pulmonary embolism paroxysmal atrophy fibrillation with a pre-her ablation still on anticoagulation. Patient not seen Dr. Deluca, seen Dr. Taylor cardiology regular basis also had seen urology in the past for history of kidney stone. Patient presented to [facility] department at [facility] with episode of severe right- sided flank pain started around 4:30 in the morning associated with nausea fever and does not feeling well patient was seen in [facility] department her CT shows very large stone measure 1.2 cm in the right side with hydronephrosis. Patient also had slightly abnormal urine and elevated temperature. As she was in the emergency department developed to have midsternal chest pain and left- sided burning with significant blood pressure been in the 170-190. Patient was giving nitroglycerin had resolve some of her symptoms. Patient will be admitted to the hospital for obstructive uropathy, kidney stone, acute kidney injury with symptomatic kidney stone along with pyelonephritis and chest pain consistent with angina. 08/29: Patient states that she had 3-4 panic attacks last night and felt like she was having a heart attack. She has been seen by analytical laboratory technician with recommendations to obtain echocardiogram and third troponin and will also check a patient had a recent stress test in the office. Repeat chest x-ray shows cardiomegaly and stable from comparison. Patient has been seen by Dr. Chino for acute pyelonephritis with plan for right ureteral stent insertion to relieve obstruction with plan for stone removal electively in several weeks after the infection has resolved. Fourth troponin came back at 2.970. Objective - Vital Signs Vital signs: Vital Signs Temp 98.1 F 08/29/17 08:00 Pulse 81 08/29/17 08:00 Resp 16 08/29/17 08:00 BP 125/74 08/29/17 08:00 Pulse Ox 97 08/29/17 08:00 Intake & Output 08/28/17 08/29/17 08/29/17 18:59 06:59 18:59 Intake Total 240 163.667 Balance 240 163.667 Weight 122.5 kg Intake: IV 10 0.9 10 Intake, IV Titration 153.667 Amount Heparin Sodium,Porcine/ 153.667 D5w Pmx 25,000 unit In Dextrose/Water 1 500ml. bag @ 8.166 UNITS/KG/HR 20 mls/hr IV .Q24H [facility] Rx #:[id number] Oral 240 Other: Voiding Method Toilet - Exam General appearance: no average body habitus, no cooperative, no disheveled, no mild distress, no morbidly obese, no acute distress, obese, no severe distress, no thin - EENT Eyes: no abnormal pupil, no anicteric sclerae, no disc margins sharp, no edentulous, no EOMI, no PERRLA, no fundus normal, no photophobia, no dentition normal, no poor dentition, no ptosis, no scleral icterus, normal appearance ENT: no hard of hearing, no hearing grossly normal, no NA/AT, normal oropharynx , no other, pharyngeal erythema, no thrush, no tonsillar exudates, no tonsillar swelling Ears: bilateral: normal - Neck Neck: no lymphadenopathy, normal ROM, no other, no rigidity, no stridor, no thyromegaly Carotids: bilateral: upstroke normal, upstroke delayed Thyroid: bilateral: normal size - Respiratory Respiratory: bilateral: diminished, dullness, rales, wheezing - Cardiovascular Rhythm: regular Heart sounds: normal: S1, S2 Abnormal Heart Sounds: S3 Gallop - Gastrointestinal General gastrointestinal: no absent bowel sounds, decreased bowel sounds, distended, no hepatomegaly, no hyperactive bowel sounds, no normal bowel sounds , organomegaly, no rigid, no scaphoid, no soft, no splenomegaly, tenderness, no umbilical hernia, no ventral hernia - Integumentary Integumentary: no calor, cellulitis, no cyanotic, no decreased turgor, no flushed, no jaundiced, normal, no normal turgor, pale, rash, no ulcer - Neurologic Neurologic: CNII-XII intact - Musculoskeletal Musculoskeletal: gait normal, generalized weakness - Psychiatric Psychiatric: A&O x's 3 - Labs CBC & Chem 7: 08/28/17 06:54 08/28/17 06:54 Labs: Abnormal Lab Results - Last 24 Hours (Table) 08/28/17 08/28/17 08/28/17 Range/Units 13:14 18:49 18:57 INR (<1.2) APTT (22.0-30.0) sec POC Glucose (mg/dL) 200 H (75-99) mg/dL Total Creatine Kinase 26 L (30-135) U/L Troponin I 0.043 H* (0.000-0.034) ng/mL 08/28/17 08/28/17 08/29/17 Range/Units 21:01 22:16 05:08 INR 1.2 H (<1.2) APTT 37.4 H (22.0-30.0) sec POC Glucose (mg/dL) 222 H (75-99) mg/dL Total Creatine Kinase (30-135) U/L Troponin I (0.000-0.034) ng/mL 08/29/17 Range/Units 06:17 INR (<1.2) APTT (22.0-30.0) sec POC Glucose (mg/dL) 106 H (75-99) mg/dL Total Creatine Kinase (30-135) U/L Troponin I (0.000-0.034) ng/mL Microbiology - Last 24 Hours (Table) 08/28/17 08:29 Urine Culture - Preliminary Urine,Voided Assessment and Plan Plan: 1 acute severe abdominal pain: Combination of kidney stone and pyelonephritis, patient was started on hydration IV antibiotics and urology consultation with plan for stent placement today. 2 large kidney stone in the right side with obstructive uropathy and hydronephrosis. Patient be seen urology might require intervention. 3 chest pain with elevated troponin. Cardiology is on consult. Patient is currently on heparin drip, aspirin 325 mg daily, Imdur 30 mg daily. 4 history of pulmonary embolism: Has been on anticoagulation with Xarelto medication will be held for now and patient was switched to heparin drip until were quite sure about intervention for her kidney stone or not. 6 paroxysmal atrial fibrillation: Post ablation still on blood thinner medication and beta go. 7 history of CVA: Stable with no worsening residual at this point. 8 hypertension: Has been on metoprolol 50 mg twice a day and spironolactone. 9 hyperlipidemia: Off statin because of side effect. 10 hypothyroidism: On levothyroxine 112 g. 11 mild intermittent asthma: On albuterol/ipratropium 4 times a day 12 diabetes mellitus type II: Continue patient on Amaryl and metformin, Accu- Chek with sliding scales coverage and be done. 13 GI prophylaxis: On Pepcid daily. 14 DVT prophylaxis: Patient is on anticoagulation already. CODE STATUS: Full code. Discharge plan: Possibly home on the weekend Impression and plan of care have been directed as dictated by the signing physician. Ester Hobson nurse practitioner acting as scribe for signing physician.
[2017-08-29] MEDS ORDERED: LIDOCAINE 2% INJ 20 MG/ML SQ ONE ×2 (12:46→14:40)
[2017-08-29] MEDS ORDERED: HEPARIN SODIUM 1,000 UN/ML (10ML VL) ONE (12:48)
[2017-08-29] MEDS ORDERED: VERAPAMIL SYRINGE (5 MG/10 ML) INTRAARTER ONE (12:49)
[2017-08-29] MEDS ORDERED: HEPARIN SODIUM 1,000 UN/ML (10ML VL) IV ONE (12:51)
[2017-08-29] MEDS ORDERED: RX INFO: IV CONTRAST WAS GIVEN 1 EACH MISC MISCELLANE PRN ×2 (13:17→15:42)
[2017-08-29] MEDS ORDERED: IOPAMIDOL-370 125ML BTL INJ ONE (13:21)
--- NOTE | 2017-08-29 13:53 | ECHOF ---
Referral Reason:chest pain MEASUREMENTS -------- HEIGHT: 157.5 cm WEIGHT: 122.5 kg BP: 125/74 RVIDd: 2.1 cm (< 3.3) IVSd: 1.3 cm (0.6 - 1.1) LVIDd: 4.9 cm (3.9 - 5.3) LVPWd: 1.6 cm (0.6 - 1.1) IVSs: 1.7 cm LVIDs: 4.0 cm LVPWs: 1.5 cm LA Diam: 3.4 cm (2.7 - 3.8) Ao Diam: 3.2 cm (2.0 - 3.7) AV Cusp: 1.5 cm (1.5 - 2.6) LA Diam: 3.0 cm (2.7 - 3.8) MV EXCURSION: 18.395 mm (> 18.000) MV EF SLOPE: 69 mm/s (70 - 150) EPSS: 1.0 cm MV E Chris: 1.04 m/s MV DecT: 168 ms MV A Chris: 0.63 m/s MV E/A Ratio: 1.64 RAP: 5.00 mmHg RVSP: 33.21 mmHg FINDINGS -------- Sinus rhythm. Morbid Obesity This was a techncally difficult study with suboptimal views, , Lumason utilized for enhancement of im ages. The left ventricular size is normal. There is mild concentric left ventricular hypertrophy. Overa ll left ventricular systolic function is moderately impaired with, an EF between 35 - 40 %. Anterse ptal Hypokinesis Inferior Hypokinesis Septal Hypokinesis [place] Hypokinesis. The right ventricle is normal in size. The left atrial size is normal. The right atrial size is normal. 5.0mg OF Lumason UTLIZED: 2 OR MORE WALL SEGMENTS NOT VISUALIZED. The aortic valve is trileaflet, and appears structurally normal. No aortic stenosis or regurgitation. Mild mitral regurgitation is present. Mild tricuspid regurgitation present. There is no evidence of pulmonary hypertension. The right v entricular systolic pressure, as measured by Doppler, is 33.21mmHg. There is no pulmonic regurgitation present. The aortic root size is normal. There is no pericardial effusion. CONCLUSIONS -------- 1. Morbid Obesity 2. This was a techncally difficult study with suboptimal views, , Lumason utilized for enhancement of images. 3. The left ventricular size is normal. 4. There is mild concentric left ventricular hypertrophy. 5. Overall left ventricular systolic function is moderately impaired with, an EF between 35 - 40 %. 6. Anterseptal Hypokinesis 7. Inferior Hypokinesis 8. Septal Hypokinesis 9. [place] Hypokinesis. 10. The right ventricle is normal in size. 11. The left atrial size is normal. 12. The right atrial size is normal. 13. 5.0mg OF Lumason UTLIZED: 2 OR MORE WALL SEGMENTS NOT VISUALIZED. 14. The aortic valve is trileaflet, and appears structurally normal. No aortic stenosis or regurgitat ion. 15. Mild mitral regurgitation is present. 16. Mild tricuspid regurgitation present. 17. There is no evidence of pulmonary hypertension. 18. The right ventricular systolic pressure, as measured by Doppler, is 33.21mmHg. 19. There is no pulmonic regurgitation present. 20. The aortic root size is normal. 21. There is no pericardial effusion. [employer] SALESPERSON: Sheryl Gill RDCS
[2017-08-29] MEDS ORDERED: IV FLUID CONTINUATION 1,000 ML IV ONE (14:14)
[2017-08-29] MEDS ORDERED: diphenhydrAMINE 50 MG/ML 1 ML VIAL IVP ONE (14:43)
[2017-08-29] MEDS ORDERED: BIVALIRUDIN BOLUS 250 MG/50 ML IV ONE (14:53)
[2017-08-29] MEDS: MORPHINE SULF 5MG/10ML VL IVP ONE ×3 (14:54→15:42)
[2017-08-29] MEDS ORDERED: BIVALIRUDIN 250 MG in SODIUM CHLORIDE 0.9% 50 ML IV ONE ×2 (14:55→15:13)
[2017-08-29] MEDS ORDERED: IOPAMIDOL-370 100ML BTL INJ ONE (15:14)
--- NOTE | 2017-08-29 15:19 | P.PN ---
Progress Note - Text Progress Note Date: 08/29/17 The patient has been afebrile with stable vital signs. Preliminary urine culture shows gram-negative bacilli. She is currently receiving Rocephin. The patient is currently off the floor, having just undergone a cardiac catheterization. This was performed because her troponin levels increased significantly, consistent with an AK. I have spoken with cardiology on several occasions throughout the day. She is not reportedly experiencing flank pain at this time, and there was the preference of Dr. Logan that she not undergo cystoscopy with stent placement over the weekend if possible. She will continue to be treated with IV antibiotics, and observed closely for signs of sepsis. If her condition worsens in any way, we will likely recommend that she undergo placement of a right ureteral stent.
[2017-08-29] MEDS ORDERED: IOPAMIDOL-370 50ML BTL INJ ONE (15:35)
[2017-08-29 16:39] LABS: Glucose,Whole Blood 103 mg/dL (75-99)
[2017-08-29] MEDS: SODIUM CHLORIDE 0.9% 1,000 ML IV SCH ×2 (16:44→18:20)
--- NOTE | 2017-08-29 16:49 | P.PCN ---
Date of Procedure: 08/29/17 Preoperative Diagnosis: Non-STEMI Postoperative Diagnosis: Multivessel coronary artery disease Procedure(s) Performed: Left heart catheterization Without left ventriculography Description of Procedure: HISTORY:This is a 61-year-old female with history of ischemic heart disease with a previous stent placement of the RCA who was admitted to the hospital with right flank pain. She was found to have hydronephrosis and patient was going to have stent placement. However, patient developed chest pains radiate to the arm associated with shortness of breath. Her echo Cardigan showed segmental wall motion defects involving the apical region septum and inferoapical region. Cardiac enzyme studies showed elevation of the troponins. In view of that patient is advised to have cardiac catheterization CONSENT:I have discussed the risks, benefits and alternative therapies for the above-mentioned procedure and for both sedation/analgesia as well as necessary blood product administration, if indicated, as they pertain to this patient. The patient has indicated understanding and acceptance of the risks and procedures discussed. PROCEDURE: Patient was brought to the lab in a fasting state. Patient was given some IV sedation. The right Wrist is infiltrated with lidocaine and right Radial artery was entered using Seldinger technique. A 6-Welsh catheter was left in place and selective coronary arteriography was performed. Patient tolerated the procedure well. Patient went on to have attempted stent placement of the LAD and RCA by Dr. ALANA Fry. Conscious Sedation: Versed 1mg Fentanyl 50g Duration 20 minutes HEMODYNAMICS: The aortic pressure is about 110/70. Left ankle end-diastolic pressure is about 18-20. There was no gradient across the aortic valve. SELECTIVE CORONARY ARTERIOGRAPHY: LEFT MAIN: Left main coronary artery and also hold left coronary system is heavily calcified. Left main is short and patent THE LEFT ANTERIOR DESCENDING CORONARY ARTERY:This is a good caliber vessel giving rise to 2 diagonal and septal branches before total occlusion in the midportion. The distal LAD is seen by faint antegrade flow from collaterals. May have diffuse disease THE LEFT CIRCUMFLEX AND IS CORONARY ARTERY: This is a moderate caliber vessel with a diffuse calcification. He did use rise to good- sized OM branch. The distal circumflex is small. The circumflex is free of any significant focal occlusive lesion THE RIGHT CORONARY ARTERY: This is a good caliber vessel with patent stent in the midportion. Beyond the stent. The next 2070-80 % stenosis. He did use ice to good-sized PDA and PLV which also some mild diffuse disease. LEFT VENTRICULOGRAPHY: Not performed FINAL IMPRESSION: Diffuse coronary artery disease with heavy calcification. There is total occlusion of the LAD in the mid to distal portion. The distal LAD seen by faint collateral flow. The stent in the RCA is patent with a significant lesion beyond stent. The circumflex is free of any focal occlusive lesion PLAN: Dr. ALANA Fry is a evaluating for possible stent placement of the LAD and or RCA. PROGNOSIS: Guarded
--- NOTE | 2017-08-29 19:30 | PTCA ---
PERCUTANEOUSTRANS CORORONARY ANGIOGRAPHY DATE OF SERVICE: 08/29/2017 PROCEDURE: Percutaneous transluminal coronary angioplasty of totally occluded mid left anterior descending coronary artery and right coronary artery. PERFORMED BY: Dr. Tonie Fry. Moderate conscious sedation time was 60 minutes. Patient was administered morphine, Versed and Benadryl. Oxygen saturation was monitored closely. CLINICAL INFORMATION: Mrs. Uma Oconnell is an obese lady with type 2 diabetes, hypertension, hyperlipidemia, who came in with a [id number]-PS-[id number] [place] and also has some obstructive uropathy and is being considered for ureteral stent placement. However, she was evaluated by Dr. Logan, underwent a cardiac cath which revealed that the previously stented RCA in the proximal segment was patent, but beyond it there was a 70% stenosis. LAD which was patent in 2014 was totally occluded in the mid portion and heavily calcified. Both RCA and LAD were heavily calcified. The previously stented circumflex was patent and RCA stent was also patent. Both these vessels were stented in 2000 with bare metal stents. She was advised intervention, and I explained to the patient that this was a high-risk procedure and the success rate was low, given the chronicity of the lesion and heavy calcification. PROCEDURE NOTE: The existing 6-Frisian introducer in the right radial artery was used to perform the procedure. I used initially an XB LAD 3.5 but did not have good guide support; switched over to XB LAD 4.0 and had a decent guide support. I advanced a run-through wire and I was unable to cross the lesion. I used a combination of Fielder XT wire and a 2.0 caliber, 12 mm balloon. With this I was unable to cross the total occlusion in the LAD which appears to be a chronic occlusion. I spent substantial amount of time working on this. The patient was given Angiomax bolus and infusion as per protocol. I then turned my attention to the RCA, which had a significant 70% lesion after the proximal bend. RCA was also heavily calcified. I used a [facility] guide catheter to cannulate the RCA and cross the lesion with a run-through wire. I was unable to advance the stent because of heavy calcification right in the proximal portion even before I could make the first turn. I advanced a Mailman wire just into this wire and tried to advance the 3.5 stent over the Mailman wire, without success. Multiple attempts were made, but it appeared that this is a heavily calcified vessel and I could not make any progress. I felt in the fdc, given her extensive distribution of the RCA, she is better off with bypass surgery both to the right coronary artery and LAD. Circumflex is widely patent. I recommended that we talk to Cardiac Surgery, and I spoke to Dr. Espinoza and explained to him that she is probably better off with a graft to the LAD and RCA, but these are heavily calcified vessels, and he would have to review the angiograms to make final decisions. Patient also has some wall motion abnormality in the inferior wall as well as the apical wall. She can go ahead with the urological procedure, which I believe is sort of an emergency to prevent worsening of her renal function. I will place her only on aspirin and not give any other antiplatelet agents, and hopefully she can have the urological stent placement. This was unsuccessful PTCA of both LAD and RCA. I am recommending aortocoronary bypass surgery to be performed fairly soon, and she can go ahead with the urological stent procedure. I will await input from both Cardiac Surgery and Urology. From a cardiac standpoint, she has a fairly high risk for any non-cardiac surgery, but under the circumstances I believe we can go ahead with the stent placement, even though she had a [id number] [place] at this time. I explained to the patient that she remains at a very high risk and she is fully aware of this. CHARMAINE / FAUSTINO: [id number] /
[2017-08-29] MEDS: MONTELUKAST 10 MG TAB PO SCH (20:53)
--- NOTE | 2017-08-29 21:26 | P.PN ---
Subjective Progress Note Date: 08/29/17 I was asked to see the patient again for possible stent placement for her renal pelvic stone. The patient has had some significant cardiac issues included elevated troponins. She had a cardiac catheterization showing significant cardiac vascular occlusion. Per Dr. Fry he felt it was okay to place a double -J catheter in light of the fact that she may need open heart surgery. I came in and reviewed the x-ray labs vital signs and discuss the situation with the patient. She is not having any renal colic at present. She is afebrile. Her urine is infected but I think this is more cystitis then pyelonephritis based on the laboratory vitals and clinical situation reviewed. I will wait until she sees a cardiac surgeon tomorrow before making a recommendation for stent placement. There is only mild hydronephrosis and without infection ration is whether should be better with or without the stent. Pending the cardiac recommendations as to final urologic recommendations which can be made tomorrow. Objective - Vital Signs Vital signs: Vital Signs Temp 98 F 08/29/17 17:02 Pulse 72 08/29/17 17:02 Resp 18 08/29/17 17:02 BP 106/56 08/29/17 17:02 Pulse Ox 96 08/29/17 17:02 Intake & Output 08/29/17 08/29/17 08/30/17 06:59 18:59 06:59 Intake Total 163.667 468 Output Total 0 Balance 163.667 468 Weight 122.5 kg Intake: IV 10 468 0.9 10 Intake, IV Titration 153.667 Amount Heparin Sodium,Porcine/ 153.667 D5w Pmx 25,000 unit In Dextrose/Water 1 500ml. bag @ 8.166 UNITS/KG/HR 20 mls/hr IV .Q24H YOANA Rx #:[id number] Output: Urine 0 Other: Voiding Method Toilet # Voids 0 - Labs CBC & Chem 7: 08/28/17 06:54 08/28/17 06:54 Labs: Abnormal Lab Results - Last 24 Hours (Table) 08/28/17 08/29/17 08/29/17 Range/Units 22:16 05:08 05:08 INR 1.2 H (<1.2) APTT 37.4 H (22.0-30.0) sec POC Glucose (mg/dL) (75-99) mg/dL Troponin I 2.970 H* (0.000-0.034) ng/mL 08/29/17 08/29/17 08/29/17 Range/Units 06:17 11:56 11:56 INR (<1.2) APTT 38.1 H (22.0-30.0) sec POC Glucose (mg/dL) 106 H (75-99) mg/dL Troponin I 2.880 H* (0.000-0.034) ng/mL 08/29/17 Range/Units 16:37 INR (<1.2) APTT (22.0-30.0) sec POC Glucose (mg/dL) 103 H (75-99) mg/dL Troponin I (0.000-0.034) ng/mL Microbiology - Last 24 Hours (Table) 08/28/17 08:29 Urine Culture - Preliminary Urine,Voided Gram Neg Bacilli
[2017-08-29 21:46] LABS: Glucose,Whole Blood 120 mg/dL (75-99)
[2017-08-30] MEDS: MORPHINE SULFATE 4 MG/ML SYRINGE IVP PRN ×3 (05:47→16:39)
[2017-08-30] MEDS: SODIUM CHLORIDE 0.9% 1,000 ML IV SCH ×3 (05:50→16:30)
[2017-08-30 06:29] LABS: Anisocytosis Slight; Basophils % (A) 0 %; Eosinophils # (A) 0.3 k/uL (0-0.7); Eosinophils % (A) 3 %; HCT 25.5 % (34.0-46.0); Hypochromasia Marked; Lymphocytes # (A) 1.1 k/uL (1.0-4.8); Lymphocytes % (A) 11 %; MCH 24.4 pg (25.0-35.0); MCHC 30.9 g/dL (31.0-37.0); MCV 78.9 fL (80.0-100.0); Microcytosis Slight; Monocytes # (A) 0.5 k/uL (0-1.0); Monocytes % (A) 5 %; Neutrophils # (A) 7.8 k/uL (1.3-7.7); Neutrophils % (A) 79 %; Platelet Count 198 k/uL (150-450); RBC 3.24 m/uL (3.80-5.40); RDW 18.1 % (11.5-15.5); WBC 9.9 k/uL (3.8-10.6)
[2017-08-30 06:31] LABS: Glucose,Whole Blood 141 mg/dL (75-99)
[2017-08-30 06:34] LABS: HGB 7.9 gm/dL (11.4-16.0)
[2017-08-30] MEDS: INSULIN ASPART 100 UNIT/ML 1 ML 10 ML VIAL SQ SCH ×4 (06:34→20:56)
[2017-08-30] MEDS: LEVOTHYROXINE 112 MCG TAB PO SCH (06:35)
[2017-08-30] MEDS: GLIMEPIRIDE 1 MG TAB PO SCH ×2 (06:35→16:30)
[2017-08-30 06:40] LABS: Calcium 8.4 mg/dL (8.4-10.2); Potassium 4.7 mmol/L (3.5-5.1)
--- NOTE | 2017-08-30 08:27 | P.GSCN ---
History of Present Illness Consult date: 08/30/17 Reason for Consult: Failed heart catheterization, coronary artery disease, recommendations for CABG Requesting physician: Mere Fry History of present illness: This is a 61-year-old debilitated female patient who follows on an outpatient basis with Dr. Deluca. She has a previous medical history of coronary artery disease, myocardial infarction with stent placement, cardiomyopathy, systolic heart failure, hypertension, hyperlipidemia, paroxysmal atrial fibrillation status post ablation, pulmonary embolism on Xarelto for anticoagulation, CVA with residual left-sided weakness, morbid obesity, hypothyroidism, fibromyalgia , asthma, stage III kidney disease, peripheral neuropathy with the inability to stand for longer than 5 minutes at a time, depression, family history of premature coronary artery disease with her father dying at 41 of CAD, and previous kidney stones. She presented to [facility] on August 28 with complaints of significant right-sided flank pain which was so intense she had to call EMS. Upon arrival to the hospital she was given IV morphine which did help somewhat. In the emergency room she had a CT of the abdomen and pelvis which demonstrated a 12 mm right kidney stone with hydronephrosis. In addition she developed chest pain/tightness/heaviness with radiation to her jaw and left arm which was partially relieved with sublingual nitro. At that time troponin was negative and EKG demonstrated no ischemic changes. She was admitted for evaluation and treatment. Urology was consulted and planned to do cystoscopy with right ureteral stent placement, however she again developed chest pain, troponins were elevated and she was taken to [facility] on August 29. She was discovered to have a chronic lesion in the LAD and 70% stenosis in the proximal RCA. Dr. Fry attempted coronary intervention but was unsuccessful as her vessels were too calcified. Consult was placed for Dr. Espinoza for surgical revascularization recommendations. Of note, her urine culture is positive for gram-negative bacilli, she is on Rocephin IV antibiotics. Review of Systems 14 point review systems was completed and is negative except as noted. - Constitutional Reports chronic pain, Reports fatigue - EENT EENT Comment(s): Left eye lag, status post stroke - Cardiovascular Reports as per HPI, Reports chest pain, Reports decreased exercise tolerance, Reports leg edema, Reports shortness of breath - Respiratory Reports as per HPI, Reports dyspnea - Gastrointestinal Reports as per HPI, Reports constipation, Reports nausea - Genitourinary Genitourinary: Reports as per HPI, Reports flank pain, Reports kidney stones - Musculoskeletal Musculoskeleta Comment(s): Walks with a cane, but mostly sits on the couch and doesn't move Reports as per HPI, Reports leg numbness/tingling, Reports limitation of motion , Reports low back pain, Reports muscle weakness bilateral: foot pain - Neurological Reports numbness, Reports paresthesias, Reports weakness, Reports visual changes - Psychiatric Reports anxiety, Reports depression - Allergic/Immunologic Reports seasonal allergies Past Medical History Past Medical History: Atrial Fibrillation, Asthma, Coronary Artery Disease (CAD) , Heart Failure, CVA/TIA, Diabetes Mellitus, Deep Vein Thrombosis (DVT), Fibromyalgia, Hyperlipidemia, Hypertension, Myocardial Infarction ([place]), Osteoarthritis (OA), Pulmonary Embolus (PE), Skin Disorder, Thyroid Disorder Additional Past Medical History / Comment(s): rt side dominant,BOTTOM 1/3 HEART DAMAGED-HEART MURMUR,cardiomyopathy,pt states she ahs ahd 4 mi's CHRONIC CONSTIPATION, ECZEMA-SKIN VERY DRY,SINUS HEADACHES, HX ANEMIA, HYST in 2013-was told cancer, gout. stage III kidney disease, past kidneys tone. 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.FEET- NUMBNESS IF STANDS FOR MORE THAN 5 MINUTES,STROKE @ AGE 39-MILD weakness LT SIDE uses cane when up-AFFECTED FACE-LT EYELID, neuropathy, lt hand tendonitis Last Myocardial Infarction Date:: UNKNOWN History of Any Multi-Drug Resistant Organisms: None Reported Past Surgical History: Appendectomy, Cardiac Ablation, Cholecystectomy, Heart Catheterization, Heart Catheterization With Stent, Hysterectomy Additional Past Surgical History / Comment(s): PARTIAL HYSTERECTOMY 03/18/14 @ [facility] CATARACT BLACK. WITH IMPLANTS. HEART CATH X 3 TOTAL 3 STENTS Past Anesthesia/Blood Transfusion Reactions: Motion Sickness Additional Past Anesthesia/Blood Transfusion Reaction / Comm: states needs general anesthesia, not IV sedation Date of Last Stent Placement:: UNKNOWN Past Psychological History: Depression Smoking Status: Former smoker Past Alcohol Use History: None Reported Past Drug Use History: None Reported - Past Family History Father Additional Family Medical History / Comment(s): "HARDENEING OF THE ARTERIES AT AGE 41. SMOKED AND DRANK ETOH Mother Family Medical History: Cancer Additional Family Medical History / Comment(s): STATES CA WAS ALL OVER- NOT SURE OF PRIMARY SITE Medications and Allergies Home Medications Medication Instructions Recorded Confirmed Type Isosorbide Mononitrate ER [Imdur] 30 mg PO DAILY 05/12/14 08/28/17 History Metoprolol Tartrate [Lopressor] 25 mg PO BID 05/12/14 08/28/17 History Cyanocobalamin [Vitamin B-12] 1,000 mcg PO DAILY 02/17/15 08/28/17 History metFORMIN HCL 1,000 mg PO BID-W/MEALS 02/17/15 08/28/17 History Nitroglycerin Sl Tabs [Nitrostat] 0.4 mg SUBLINGUAL Q5M PRN tab 01/14/17 Rx Famotidine [Pepcid] 20 mg PO BID PRN 08/28/17 08/28/17 History Febuxostat [Uloric] 40 mg PO DAILY 08/28/17 08/28/17 History Ferrous Sulfate [Feosol] 325 mg PO BID 08/28/17 08/28/17 History Furosemide [Lasix] 40 mg PO DAILY 08/28/17 08/28/17 History Glimepiride [Amaryl] 0.5 mg PO AC-BID 08/28/17 08/28/17 History Ipratropium-Albuterol Nebulize 3 ml INHALATION RT-QID PRN 08/28/17 08/28/17 History [Duoneb 0.5 mg-3 mg/3 ml Soln] Levothyroxine Sodium [Synthroid] 112 mcg PO DAILY 08/28/17 08/28/17 History Loratadine [Claritin] 10 mg PO DAILY 08/28/17 08/28/17 History Meloxicam [Mobic] 15 mg PO DAILY 08/28/17 08/28/17 History Montelukast [Singulair] 10 mg PO HS 08/28/17 08/28/17 History Sodium Chloride 5% Ophth Soln 1 drops BOTH EYES DAILY PRN 08/28/17 08/28/17 History [Trini 128] Spironolactone [Aldactone] 25 mg PO DAILY 08/28/17 08/28/17 History Allergies Allergy/AdvReac Type Severity Reaction Status Date / Time latex Allergy Rash/Hives Verified 08/28/17 07:37 Milk Containing Products AdvReac THRUSH Verified 08/28/17 07:37 [Dairy] Tetracyclines AdvReac YEAST Verified 08/28/17 07:37 INFECTION- PREFERS NOT TO TAKE tramadol AdvReac Nausea & Verified 08/28/17 07:37 Vomiting ENVIRONMENTAL ALLERGIES Allergy SINUS Uncoded 08/28/17 06:28 SYMPTOMS-GRASS TREES,DUST,POLLENS,MOLD Surgical - Exam Vital Signs Pulse Resp BP Pulse Ox 89 20 172/78 93 L 08/28/17 06:22 08/28/17 06:22 08/28/17 06:22 08/28/17 06:22 - General well developed, well nourished, moderate distress, severe pain, chronically ill , obese - Eyes PERRL, normal ocular movement left: ptosis - ENT no hearing loss - Neck no masses, no bruits, trachea midline - Respiratory Lungs sounds clear but diminished bilaterally. Respirations even, nonlabored. Currently on room air with oxygen saturation 95%. No chest deformities noted. - Cardiovascular S1, S2 present. Regular rate and rhythm, sinus rhythm on telemetry. Palpable peripheral pulses bilaterally. Trace bilateral lower extremity edema present. No calf pain or tenderness noted. No obvious varicosities noted. - Abdomen Abdomen: soft, non tender, bowel sounds - Genitourinary No documented urinary output but patient states she is voiding in the bedside commode. - Rectum Deferred - Integumentary Rob present to right marcelino. Right radial catheterization site with T band still present. no rash, no growths, no abnormal pigmentation - Neurologic normal coordination - Musculoskeletal Unable to assess, patient remaining in bed secondary to pain. - Psychiatric oriented to time, oriented to person, oriented to place, speech is normal, memory intact Results - Labs 08/30/17 06:11 08/30/17 06:11 Abnormal Lab Results - Last 24 Hours (Table) 08/29/17 08/29/17 08/29/17 Range/Units 05:08 11:56 11:56 RBC (3.80-5.40) m/uL Hgb (11.4-16.0) gm/dL Hct (34.0-46.0) % MCV (80.0-100.0) fL MCH (25.0-35.0) pg MCHC (31.0-37.0) g/dL RDW (11.5-15.5) % Neutrophils # (1.3-7.7) k/uL APTT 38.1 H (22.0-30.0) sec Sodium (137-145) mmol/L Carbon Dioxide (22-30) mmol/L BUN (7-17) mg/dL Creatinine (0.52-1.04) mg/dL Glucose (74-99) mg/dL POC Glucose (mg/dL) (75-99) mg/dL Troponin I 2.970 H* 2.880 H* (0.000-0.034) ng/mL 08/29/17 08/29/17 08/30/17 Range/Units 16:37 21:43 06:10 RBC (3.80-5.40) m/uL Hgb (11.4-16.0) gm/dL Hct (34.0-46.0) % MCV (80.0-100.0) fL MCH (25.0-35.0) pg MCHC (31.0-37.0) g/dL RDW (11.5-15.5) % Neutrophils # (1.3-7.7) k/uL APTT (22.0-30.0) sec Sodium (137-145) mmol/L Carbon Dioxide (22-30) mmol/L BUN (7-17) mg/dL Creatinine (0.52-1.04) mg/dL Glucose (74-99) mg/dL POC Glucose (mg/dL) 103 H 120 H 141 H (75-99) mg/dL Troponin I (0.000-0.034) ng/mL 08/30/17 08/30/17 Range/Units 06:11 06:11 RBC 3.24 L (3.80-5.40) m/uL Hgb 7.9 L D (11.4-16.0) gm/dL Hct 25.5 L (34.0-46.0) % MCV 78.9 L (80.0-100.0) fL MCH 24.4 L (25.0-35.0) pg MCHC 30.9 L (31.0-37.0) g/dL RDW 18.1 H (11.5-15.5) % Neutrophils # 7.8 H (1.3-7.7) k/uL APTT (22.0-30.0) sec Sodium 136 L (137-145) mmol/L Carbon Dioxide 20 L (22-30) mmol/L BUN 20 H (7-17) mg/dL Creatinine 1.19 H (0.52-1.04) mg/dL Glucose 113 H (74-99) mg/dL POC Glucose (mg/dL) (75-99) mg/dL Troponin I (0.000-0.034) ng/mL Microbiology - Last 24 Hours (Table) 08/28/17 08:29 Urine Culture - Preliminary Urine,Voided Gram Neg Bacilli Diabetes panel 08/30/17 Range/Units 06:11 Sodium 136 L (137-145) mmol/L Potassium 4.7 (3.5-5.1) mmol/L Chloride 104 (98-107) mmol/L Carbon Dioxide 20 L (22-30) mmol/L BUN 20 H (7-17) mg/dL Creatinine 1.19 H (0.52-1.04) mg/dL Glucose 113 H (74-99) mg/dL Calcium 8.4 (8.4-10.2) mg/dL Calcium panel 08/30/17 Range/Units 06:11 Calcium 8.4 (8.4-10.2) mg/dL Pituitary panel 08/30/17 Range/Units 06:11 Sodium 136 L (137-145) mmol/L Potassium 4.7 (3.5-5.1) mmol/L Chloride 104 (98-107) mmol/L Carbon Dioxide 20 L (22-30) mmol/L BUN 20 H (7-17) mg/dL Creatinine 1.19 H (0.52-1.04) mg/dL Glucose 113 H (74-99) mg/dL Calcium 8.4 (8.4-10.2) mg/dL Adrenal panel 08/30/17 Range/Units 06:11 Sodium 136 L (137-145) mmol/L Potassium 4.7 (3.5-5.1) mmol/L Chloride 104 (98-107) mmol/L Carbon Dioxide 20 L (22-30) mmol/L BUN 20 H (7-17) mg/dL Creatinine 1.19 H (0.52-1.04) mg/dL Glucose 113 H (74-99) mg/dL Calcium 8.4 (8.4-10.2) mg/dL - Imaging Chest x-ray: report reviewed, image reviewed CT scan - abdomen: report reviewed CT scan - pelvis: report reviewed EKG: image reviewed Additional studies: Echo, heart catheterization report reviewed. Assessment and Plan (1) History of pulmonary embolism Current Visit: No Status: Resolved Code(s): Z86.711 - PERSONAL HISTORY OF PULMONARY EMBOLISM SNOMED Code(s): 926004994 (2) Paroxysmal atrial fibrillation Current Visit: No Status: Resolved Code(s): I48.0 - PAROXYSMAL ATRIAL FIBRILLATION SNOMED Code(s): 817988929 (3) Morbid obesity with BMI of 45.0-49.9, adult Current Visit: Yes Status: Chronic Code(s): E66.01 - MORBID (SEVERE) OBESITY DUE TO EXCESS CALORIES; Z68.42 - BODY MASS INDEX (BMI) 45.0-49.9, ADULT SNOMED Code(s): 189104116 (4) History of CVA with residual deficit Current Visit: Yes Status: Chronic Code(s): I69.30 - UNSPECIFIED SEQUELAE OF CEREBRAL INFARCTION SNOMED Code(s): 797044952 (5) Fibromyalgia Current Visit: Yes Status: Chronic Code(s): M79.7 - FIBROMYALGIA SNOMED Code(s): 099785657 (6) Non-STEMI (non-ST elevated myocardial infarction) Current Visit: Yes Status: Acute Code(s): I21.4 - NON-ST ELEVATION (NSTEMI) MYOCARDIAL INFARCTION SNOMED Code(s): 044544713 (7) Peripheral neuropathy Current Visit: Yes Status: Chronic Code(s): G62.9 - POLYNEUROPATHY, UNSPECIFIED SNOMED Code(s): 495286195 (8) Stage III chronic kidney disease Current Visit: Yes Status: Chronic Code(s): N18.3 - CHRONIC KIDNEY DISEASE, STAGE 3 (MODERATE) SNOMED Code(s): 307961072 (9) Systolic heart failure Current Visit: Yes Status: Chronic Code(s): I50.20 - UNSPECIFIED SYSTOLIC ( CONGESTIVE) HEART FAILURE SNOMED Code(s): 130417305 (10) History of heart artery stent Current Visit: Yes Status: Chronic Code(s): Z95.5 - PRESENCE OF CORONARY ANGIOPLASTY IMPLANT AND GRAFT SNOMED Code(s): 184285358 (11) Chest pain Current Visit: Yes Status: Acute Code(s): R07.9 - CHEST PAIN, UNSPECIFIED SNOMED Code(s): 31690544 (12) Hydronephrosis with urinary obstruction due to ureteral calculus Current Visit: Yes Status: Acute Code(s): N13.2 - HYDRONEPHROSIS WITH RENAL AND URETERAL CALCULOUS OBSTRUCTION SNOMED Code(s): 060284277 (13) Ureterolithiasis Current Visit: Yes Status: Acute Code(s): N20.1 - CALCULUS OF URETER SNOMED Code(s): 38952266 (14) Asthma Current Visit: Yes Status: Chronic Code(s): J45.909 - UNSPECIFIED ASTHMA, UNCOMPLICATED SNOMED Code(s): 418635781 (15) CAD (coronary artery disease) Current Visit: Yes Status: Chronic Code(s): I25.10 - ATHSCL HEART DISEASE OF [place] CORONARY ARTERY W/O ANG PCTRS SNOMED Code(s): 57987404 (16) Depression Current Visit: Yes Status: Chronic Code(s): F32.9 - MAJOR DEPRESSIVE DISORDER, SINGLE EPISODE, UNSPECIFIED SNOMED Code(s): 30614942 (17) Diabetes Current Visit: Yes Status: Chronic Code(s): E11.9 - TYPE 2 DIABETES MELLITUS WITHOUT COMPLICATIONS SNOMED Code(s): 83331003 (18) HTN (hypertension) Current Visit: Yes Status: Chronic Code(s): I10 - ESSENTIAL (PRIMARY) HYPERTENSION SNOMED Code(s): 31152385 (19) Hyperlipemia Current Visit: Yes Status: Chronic Code(s): E78.5 - HYPERLIPIDEMIA, UNSPECIFIED SNOMED Code(s): 06654026 (20) Hypothyroid Current Visit: Yes Status: Chronic Code(s): E03.9 - HYPOTHYROIDISM, UNSPECIFIED SNOMED Code(s): 35802202 Plan: The patient was seen and examined at the bedside. Chart/diagnostics were reviewed. Long discussion was had with the patient regarding her disease process and our workup for coronary artery bypass grafting surgery. At this time the patient states she does not want surgery until after urologic surgery is performed. She stated she feels the kidneys are more important because it's causing her so much pain. Again, discussion was had regarding the severity of her coronary artery disease, and she again stated she did not want to have open heart surgery until after her kidneys are taken care of. At this time she doesn 't even want preoperative open heart testing completed. Will discuss the case in detail with Dr. Espinoza. We would recommend that she stays on her aspirin, statin, beta go and medical therapy is maximized. We will make more recommendations as further discussions are had with the patient, cardiology, and urology. Thank you Dr. Fry for this consult. We will closely follow with you.
[2017-08-30] MEDS: cefTRIAXone IN SWFI 1,000 MG/10 ML SYRINGE IVP SCH ×2 (08:29→20:39)
[2017-08-30] MEDS: CYANOCOBALAMIN 500 MCG TAB PO SCH (08:30)
[2017-08-30] MEDS: ASPIRIN 81 MG PO SCH (08:30)
[2017-08-30] MEDS: FERROUS SULFATE 325 MG TAB PO SCH ×2 (08:30→20:39)
[2017-08-30] MEDS: FUROSEMIDE 40 MG TAB PO SCH (08:30)
[2017-08-30] MEDS: ISOSORBIDE MONONITRATE ER 30 MG TAB.ER.24H PO SCH (08:30)
[2017-08-30] MEDS: METOPROLOL TARTRATE 50 MG TAB PO SCH ×2 (08:31→20:39)
[2017-08-30] MEDS: LORATADINE 10 MG TAB PO SCH (08:31)
[2017-08-30] MEDS: ATORVASTATIN 40 MG TAB PO SCH (08:33)
[2017-08-30] MEDS: SPIRONOLACTONE 25 MG TAB PO SCH (08:34)
[2017-08-30] MEDS: ALLOPURINOL 100 MG TAB PO SCH (08:36)
[2017-08-30 09:44] LABS: T4, Free (Free Thyroxine) 1.35 ng/dL (0.78-2.19)
--- NOTE | 2017-08-30 11:34 | P.PN ---
Subjective Progress Note Date: 08/30/17 The patient is still having renal colic. She has been seen by cardiac surgery and is not a candidate for surgery. I spoke with Dr. Fry and the decision is to proceed and place a ureteral stent. I will do that later today. Shockwave lithotripsy will be determined as to when he might consider repeating a cardiac cath. The shockwave lithotripsy can be done anytime in the next few months. The stent can remain in a few months to maximize renal function and minimize discomfort until it is deemed safe to proceed with the procedure. Objective - Vital Signs Vital signs: Vital Signs Temp 97.3 F L 08/30/17 08:00 Pulse 81 08/30/17 08:00 Resp 18 08/30/17 08:00 BP 133/62 08/30/17 08:00 Pulse Ox 93 L 08/30/17 08:00 Intake & Output 08/29/17 08/30/17 08/30/17 18:59 06:59 18:59 Intake Total 468 400 118 Output Total 0 0 Balance 468 400 118 Weight 123.3 kg Intake: IV 468 400 0.9 400 Oral 118 Output: Urine 0 0 Other: Voiding Method Toilet Bedside Commode # Voids 0 - Labs CBC & Chem 7: 08/30/17 06:11 08/30/17 06:11 Labs: Abnormal Lab Results - Last 24 Hours (Table) 08/29/17 08/29/17 08/29/17 Range/Units 05:08 11:56 11:56 RBC (3.80-5.40) m/uL Hgb (11.4-16.0) gm/dL Hct (34.0-46.0) % MCV (80.0-100.0) fL MCH (25.0-35.0) pg MCHC (31.0-37.0) g/dL RDW (11.5-15.5) % Neutrophils # (1.3-7.7) k/uL APTT 38.1 H (22.0-30.0) sec Sodium (137-145) mmol/L Carbon Dioxide (22-30) mmol/L BUN (7-17) mg/dL Creatinine (0.52-1.04) mg/dL Glucose (74-99) mg/dL POC Glucose (mg/dL) (75-99) mg/dL Troponin I 2.880 H* (0.000-0.034) ng/mL TSH 5.230 H (0.465-4.680) mIU/L 08/29/17 08/29/17 08/30/17 Range/Units 16:37 21:43 06:10 RBC (3.80-5.40) m/uL Hgb (11.4-16.0) gm/dL Hct (34.0-46.0) % MCV (80.0-100.0) fL MCH (25.0-35.0) pg MCHC (31.0-37.0) g/dL RDW (11.5-15.5) % Neutrophils # (1.3-7.7) k/uL APTT (22.0-30.0) sec Sodium (137-145) mmol/L Carbon Dioxide (22-30) mmol/L BUN (7-17) mg/dL Creatinine (0.52-1.04) mg/dL Glucose (74-99) mg/dL POC Glucose (mg/dL) 103 H 120 H 141 H (75-99) mg/dL Troponin I (0.000-0.034) ng/mL TSH (0.465-4.680) mIU/L 08/30/17 08/30/17 Range/Units 06:11 06:11 RBC 3.24 L (3.80-5.40) m/uL Hgb 7.9 L D (11.4-16.0) gm/dL Hct 25.5 L (34.0-46.0) % MCV 78.9 L (80.0-100.0) fL MCH 24.4 L (25.0-35.0) pg MCHC 30.9 L (31.0-37.0) g/dL RDW 18.1 H (11.5-15.5) % Neutrophils # 7.8 H (1.3-7.7) k/uL APTT (22.0-30.0) sec Sodium 136 L (137-145) mmol/L Carbon Dioxide 20 L (22-30) mmol/L BUN 20 H (7-17) mg/dL Creatinine 1.19 H (0.52-1.04) mg/dL Glucose 113 H (74-99) mg/dL POC Glucose (mg/dL) (75-99) mg/dL Troponin I (0.000-0.034) ng/mL TSH (0.465-4.680) mIU/L Microbiology - Last 24 Hours (Table) 08/28/17 08:29 Urine Culture - Final Urine,Voided Escherichia coli
[2017-08-30 11:49] LABS: Glucose,Whole Blood 135 mg/dL (75-99)
--- NOTE | 2017-08-30 11:55 | P.PN ---
Subjective Progress Note Date: 08/30/17 Principal diagnosis: Severe abdominal pain, kidney stone, acute non-ST MT with positive heart cath, history of PE and DVT, paroxysmal A. fib, history of CVA, hypertension, diabetes 61-year-old obese female one of Dr. Deluca's patient with multiple medical problem known to have history of diabetes hypertension hyperlipidemia coronary disease post angioplasty and stent placement in the past, also history of pulmonary embolism paroxysmal atrophy fibrillation with a pre-her ablation still on anticoagulation. Patient not seen Dr. Deluca, seen Dr. Taylor cardiology regular basis also had seen urology in the past for history of kidney stone. Patient presented to [facility] department at [facility] with episode of severe right- sided flank pain started around 4:30 in the morning associated with nausea fever and does not feeling well patient was seen in [facility] department her CT shows very large stone measure 1.2 cm in the right side with hydronephrosis. Patient also had slightly abnormal urine and elevated temperature. As she was in the emergency department developed to have midsternal chest pain and left- sided burning with significant blood pressure been in the 170-190. Patient was giving nitroglycerin had resolve some of her symptoms. Patient will be admitted to the hospital for obstructive uropathy, kidney stone, acute kidney injury with symptomatic kidney stone along with pyelonephritis and chest pain consistent with angina. 08/29: Patient states that she had 3-4 panic attacks last night and felt like she was having a heart attack. She has been seen by acid filler with recommendations to obtain echocardiogram and third troponin and will also check a patient had a recent stress test in the office. Repeat chest x-ray shows cardiomegaly and stable from comparison. Patient has been seen by Dr. Chino for acute pyelonephritis with plan for right ureteral stent insertion to relieve obstruction with plan for stone removal electively in several weeks after the infection has resolved. Fourth troponin came back at 2.970. 08/30: Her heart cath came back very positive for blockage of the LAD and the RCA angioplasty and stent was not successful, patient was referred to cardiothoracic surgery for possible bypass surgery, patient had her on concern about her open heart surgery does 1 a go for it until her kidney stone is treated and over. Objective - Vital Signs Vital signs: Vital Signs Temp 97.3 F L 08/30/17 08:00 Pulse 81 08/30/17 11:33 Resp 18 08/30/17 08:00 BP 133/62 08/30/17 08:00 Pulse Ox 93 L 08/30/17 08:00 Intake & Output 08/29/17 08/30/17 08/30/17 18:59 06:59 18:59 Intake Total 468 400 118 Output Total 0 0 Balance 468 400 118 Weight 123.3 kg Intake: IV 468 400 0.9 400 Oral 118 Output: Urine 0 0 Other: Voiding Method Toilet Bedside Commode # Voids 0 - Constitutional General appearance: Present: cooperative, disheveled, morbidly obese, no acute distress. Absent: average body habitus, mild distress, obese, severe distress, thin - EENT Eyes: Present: normal appearance. Absent: abnormal pupil, anicteric sclerae, disc margins sharp, edentulous, EOMI, PERRLA, fundus normal, photophobia, dentition normal, poor dentition, ptosis, scleral icterus ENT: Present: hard of hearing, normal oropharynx. Absent: hearing grossly normal, NA/AT, other, pharyngeal erythema, thrush, tonsillar exudates, tonsillar swelling Ears: bilateral: normal - Neck Neck: Present: normal ROM. Absent: lymphadenopathy, other, rigidity, stridor, thyromegaly Carotids: bilateral: upstroke normal, upstroke delayed Thyroid: bilateral: normal size - Respiratory Respiratory: bilateral: diminished, dullness, rales - Cardiovascular Rhythm: irregularly irregular Heart sounds: normal: S1, S2 Abnormal Heart Sounds: Present: systolic murmur, S3 Gallop - Gastrointestinal General gastrointestinal: Present: distended, soft Localized gastrointestinal: tender: RUQ - Integumentary Integumentary: Present: cellulitis, normal, pale, rash. Absent: calor, cyanotic , decreased turgor, flushed, jaundiced, normal turgor, ulcer - Neurologic Neurologic: Present: CNII-XII intact - Musculoskeletal Musculoskeletal: Present: gait normal, generalized weakness, strength equal bilaterally. Absent: right sided weakness, left sided weakness - Psychiatric Psychiatric: Present: A&O x's 3, appropriate affect - Labs CBC & Chem 7: 08/30/17 06:11 08/30/17 06:11 Labs: Abnormal Lab Results - Last 24 Hours (Table) 08/29/17 08/29/17 08/29/17 Range/Units 05:08 11:56 11:56 RBC (3.80-5.40) m/uL Hgb (11.4-16.0) gm/dL Hct (34.0-46.0) % MCV (80.0-100.0) fL MCH (25.0-35.0) pg MCHC (31.0-37.0) g/dL RDW (11.5-15.5) % Neutrophils # (1.3-7.7) k/uL APTT 38.1 H (22.0-30.0) sec Sodium (137-145) mmol/L Carbon Dioxide (22-30) mmol/L BUN (7-17) mg/dL Creatinine (0.52-1.04) mg/dL Glucose (74-99) mg/dL POC Glucose (mg/dL) (75-99) mg/dL Troponin I 2.880 H* (0.000-0.034) ng/mL TSH 5.230 H (0.465-4.680) mIU/L 08/29/17 08/29/17 08/30/17 Range/Units 16:37 21:43 06:10 RBC (3.80-5.40) m/uL Hgb (11.4-16.0) gm/dL Hct (34.0-46.0) % MCV (80.0-100.0) fL MCH (25.0-35.0) pg MCHC (31.0-37.0) g/dL RDW (11.5-15.5) % Neutrophils # (1.3-7.7) k/uL APTT (22.0-30.0) sec Sodium (137-145) mmol/L Carbon Dioxide (22-30) mmol/L BUN (7-17) mg/dL Creatinine (0.52-1.04) mg/dL Glucose (74-99) mg/dL POC Glucose (mg/dL) 103 H 120 H 141 H (75-99) mg/dL Troponin I (0.000-0.034) ng/mL TSH (0.465-4.680) mIU/L 08/30/17 08/30/17 08/30/17 Range/Units 06:11 06:11 11:46 RBC 3.24 L (3.80-5.40) m/uL Hgb 7.9 L D (11.4-16.0) gm/dL Hct 25.5 L (34.0-46.0) % MCV 78.9 L (80.0-100.0) fL MCH 24.4 L (25.0-35.0) pg MCHC 30.9 L (31.0-37.0) g/dL RDW 18.1 H (11.5-15.5) % Neutrophils # 7.8 H (1.3-7.7) k/uL APTT (22.0-30.0) sec Sodium 136 L (137-145) mmol/L Carbon Dioxide 20 L (22-30) mmol/L BUN 20 H (7-17) mg/dL Creatinine 1.19 H (0.52-1.04) mg/dL Glucose 113 H (74-99) mg/dL POC Glucose (mg/dL) 135 H (75-99) mg/dL Troponin I (0.000-0.034) ng/mL TSH (0.465-4.680) mIU/L Microbiology - Last 24 Hours (Table) 08/28/17 08:29 Urine Culture - Final Urine,Voided Escherichia coli Assessment and Plan Plan: 1 acute severe abdominal pain: Combination of kidney stone and pyelonephritis, patient was started on hydration IV antibiotics and urology consultation. Still seen Dr. Song had large stone might require either stent 2 large kidney stone in the right side with obstructive uropathy and hydronephrosis. Patient be seen urology might require intervention. 3 pyelonephritis and upper right tract infection most likely brought and caused by the stone. Patient will be on IV antibiotics switch to oral antibiotics when she is more stable. 4 acute non-ST MT: Heart cath was positive for 2 blockage, angioplasty was not successful patient was seen in cardiothoracic surgery and will need to go for open heart surgery except patient is disagreeing of doing the surgery not ~ kidney stone is a treated in done. 5 history of pulmonary embolism: Has been on anticoagulation with Xarelto medication will be held for now and patient was switched to heparin drip until were quite sure about intervention for her kidney stone or not. 6 A. fib with RVR: Post ablation still on blood thinner medication and beta go. 7 history of CVA: Stable with no worsening residual at this point. 8 hypertension: Has been on metoprolol 50 mg twice a day and spironolactone. 9 hyperlipidemia: Off statin because of side effect. 10 hypothyroidism: On levothyroxine 112 g. 11 asthma: On albuterol/ipratropium 4 times a day 12 diabetes: Continue patient on Amaryl and metformin, Accu-Chek with sliding scales coverage and be done. 13 GI prophylaxis: On Pepcid daily. 14 DVT prophylaxis: Patient is on anticoagulation already. CODE STATUS: Full code. Discussion patient has extreme high comorbidity and high risk for surgery as well.
--- NOTE | 2017-08-30 16:46 | PN ---
PROGRESS NOTE This is a 61-year-old lady who underwent cardiac cath performed by Dr. Logan yesterday and I performed attempted PCI of LAD which appeared to be a chronic total occlusion. I also could not not advance this stent into the RCA. However, I did not attempt RCA for a long time because patient received quite a bit of contrast. Her right radial site is clean and dry. Pulses good. Vital signs are stable. She does not have any chest pain. She had renal stones and is being considered for renal stent, which I am recommending can be performed at this time. Following her renal stenting, I will consider a repeat intervention of the RCA to see if we can open up the right coronary artery using a GuideLiner. At this time, the patient's LAD cannot be opened up and there is already anteroapical hypokinesia of significant degree and therefore I believe this is a chronic total occlusion with already infarct in that area. The patient was seen and evaluated by Dr. Espinoza who felt that she is not a good candidate for surgery. We will pursue medical therapy. Proceed with renal stenting for her stones and in the next week or 10 days, I will perform repeat intervention of the right coronary artery probably from the radial approach again. Discussed this with the patient at length. Vital signs are stable. S1-S2 heard normally. Short systolic murmur noted. Heart sounds are distantly. Lungs are clear. Abdomen is soft. Lower extremity revealed diminished pulses. Central nervous system is normal. Prognosis remains guarded. MMODL / IJN: [id number] /
[2017-08-30 16:47] LABS: Glucose,Whole Blood 87 mg/dL (75-99)
[2017-08-30] MEDS ORDERED: PHENYLEPHRINE-0.9% NACL SYG 1 MG/10 ML SYRINGE ONE (17:32)
[2017-08-30] MEDS ORDERED: ONDANSETRON 4 MG/2 ML VIAL ONE (17:32)
[2017-08-30] MEDS ORDERED: SUCCINYLCHOLINE CHLORIDE VIAL 200 MG/10 ML VIAL IV ONE (17:32)
[2017-08-30] MEDS ORDERED: MIDAZOLAM 2 MG/2 ML VIAL ONE (17:32)
[2017-08-30] MEDS ORDERED: PROPOFOL 10 MG/ML 20 ML VIAL IV ONE (17:32)
[2017-08-30] MEDS ORDERED: LIDOCAINE 1% INJ 10MG/ML (20 ML MDV) ONE (17:32)
[2017-08-30] MEDS ORDERED: fentaNYL (PF) 50 MCG/ML 2 ML AMP ONE (17:32)
[2017-08-30] MEDS ORDERED: LACTATED RINGERS 1,000 ML IV ONE (17:49)
--- NOTE | 2017-08-30 18:05 | P.OP ---
Date of Procedure: 08/30/17 Preoperative Diagnosis: Obstructing right ureteral calculus persistent renal colic Postoperative Diagnosis: Same Procedure(s) Performed: Cystoscopy, placement of 6 x 24 double-J catheter Anesthesia: PJ Surgeon: Edwar You Estimated Blood Loss (ml): 0 Pathology: none sent Condition: stable Disposition: PACU Indications for Procedure: The patient is a 61-year-old female who came in the hospital with acute ureteral colic on the right. Her urine appeared to be infected. She wasn't completely obstructed. Her white count was initially elevated but normalized she did develop an acute myocardial infarction. She had a cardiac cath. She had consultation with cardiac surgery who deemed her not to be a surgical candidate. I spoke with Dr. Fry and we decided a double-J catheter be appropriate to relieve the obstruction and potential infected urine while continuing to treat her cardiac condition Description of Procedure: Patient is brought to the operating suite. She is given a successful general anesthesia. She's placed lithotomy position with sterile prep and drape. Cystoscopy Foroblique lens and 22-Greenlandic sheath identifies chronic cystitis. The right ureteral orifice is identified. It is intubated with an 035 wire that passes into the renal pelvis. Over the wires passed a 6 x 24 double-J catheter that coils in the renal pelvis and the bladder. The urine is quite cloudy emanating from the double-J catheter. The bladder strain the patient's awakened and returned recovery room good condition she tolerated procedure well. The double-J catheter and will remain in place until the stone was treated. This will be dependent on the status that condition.
--- NOTE | 2017-08-30 18:22 | FL ---
EXAMINATION TYPE: FL guidance operating room DATE OF EXAM: 08/30/2017 CLINICAL HISTORY: Ureteral stent placement. Fluoroscopy documentation. TECHNIQUE: Fluoroscopy. COMPARISON: None. FINDINGS/IMPRESSION: Fluoroscopic guidance was provided during procedure performed by Dr. Deluca. A total of 28 seconds of fluoroscopic time was utilized during the procedure and 1 spot images was acqu ired during a ureteral stent placement.
[2017-08-30] MEDS: MONTELUKAST 10 MG TAB PO SCH (20:39)
[2017-08-30 20:57] LABS: Glucose,Whole Blood 114 mg/dL (75-99)
[2017-08-30 21:59] LABS: Hepatitis A Antibody IgM Non-Reactive (Non-Reactive); Hepatitis B Core IgM Non-Reactive (Non-Reactive)
[2017-08-31] MEDS: ALPRAZolam 0.25 MG TAB PO PRN (05:08)
[2017-08-31] MEDS: SODIUM CHLORIDE 0.9% 1,000 ML IV SCH ×2 (05:40→12:19)
[2017-08-31 06:16] LABS: Glucose,Whole Blood 123 mg/dL (75-99)
[2017-08-31 06:33] LABS: Anisocytosis Slight; Basophils % (A) 1 %; Eosinophils # (A) 0.2 k/uL (0-0.7); Eosinophils % (A) 3 %; HCT 25.5 % (34.0-46.0); HGB 7.7 gm/dL (11.4-16.0); Hypochromasia Marked; Lymphocytes # (A) 0.9 k/uL (1.0-4.8); Lymphocytes % (A) 13 %; MCH 24.4 pg (25.0-35.0); MCHC 30.3 g/dL (31.0-37.0); MCV 80.5 fL (80.0-100.0); Microcytosis Slight; Monocytes # (A) 0.6 k/uL (0-1.0); Monocytes % (A) 8 %; Neutrophils # (A) 5.3 k/uL (1.3-7.7); Neutrophils % (A) 74 %; Platelet Count 169 k/uL (150-450); RBC 3.17 m/uL (3.80-5.40); RDW 18.2 % (11.5-15.5); WBC 7.2 k/uL (3.8-10.6)
[2017-08-31] MEDS: INSULIN ASPART 100 UNIT/ML 1 ML 10 ML VIAL SQ SCH ×4 (06:36→22:15)
[2017-08-31] MEDS: LEVOTHYROXINE 112 MCG TAB PO SCH (06:37)
[2017-08-31] MEDS: GLIMEPIRIDE 1 MG TAB PO SCH ×2 (06:37→17:02)
[2017-08-31 06:51] LABS: Albumin 2.9 g/dL (3.5-5.0); Calcium 8.4 mg/dL (8.4-10.2); Potassium 4.1 mmol/L (3.5-5.1); Total Bilirubin 0.2 mg/dL (0.2-1.3); Total Protein 5.4 g/dL (6.3-8.2)
[2017-08-31] MEDS: ASPIRIN 81 MG PO SCH (08:08)
[2017-08-31] MEDS: ATORVASTATIN 40 MG TAB PO SCH (08:08)
[2017-08-31] MEDS: ALLOPURINOL 100 MG TAB PO SCH (08:08)
[2017-08-31] MEDS: ISOSORBIDE MONONITRATE ER 30 MG TAB.ER.24H PO SCH (08:09)
[2017-08-31] MEDS: FERROUS SULFATE 325 MG TAB PO SCH ×2 (08:09→20:52)
[2017-08-31] MEDS: CYANOCOBALAMIN 500 MCG TAB PO SCH (08:09)
[2017-08-31] MEDS: LORATADINE 10 MG TAB PO SCH (08:09)
[2017-08-31] MEDS: FUROSEMIDE 40 MG TAB PO SCH (08:09)
[2017-08-31] MEDS: cefTRIAXone IN SWFI 1,000 MG/10 ML SYRINGE IVP SCH ×2 (08:09→20:53)
[2017-08-31] MEDS: SPIRONOLACTONE 25 MG TAB PO SCH (08:10)
[2017-08-31] MEDS: METOPROLOL TARTRATE 50 MG TAB PO SCH ×2 (08:10→20:52)
[2017-08-31] MEDS: ALPRAZolam 0.5 MG TAB PO PRN (08:10)
[2017-08-31] MEDS: MORPHINE SULFATE 4 MG/ML SYRINGE IVP PRN ×3 (08:20→17:56)
--- NOTE | 2017-08-31 10:01 | P.PN ---
Subjective Progress Note Date: 08/31/17 Principal diagnosis: Severe abdominal pain, kidney stone, acute non-ST WI with positive heart cath, history of PE and DVT, paroxysmal A. fib, history of CVA, hypertension, diabetes. 61-year-old obese female one of Dr. Deluca's patient with multiple medical problem known to have history of diabetes hypertension hyperlipidemia coronary disease post angioplasty and stent placement in the past, also history of pulmonary embolism paroxysmal atrophy fibrillation with a pre-her ablation still on anticoagulation. Patient not seen Dr. Deluca, seen Dr. Taylor cardiology regular basis also had seen urology in the past for history of kidney stone. Patient presented to [facility] department at [facility] with episode of severe right- sided flank pain started around 4:30 in the morning associated with nausea fever and does not feeling well patient was seen in [facility] department her CT shows very large stone measure 1.2 cm in the right side with hydronephrosis. Patient also had slightly abnormal urine and elevated temperature. As she was in the emergency department developed to have midsternal chest pain and left- sided burning with significant blood pressure been in the 170-190. Patient was giving nitroglycerin had resolve some of her symptoms. Patient will be admitted to the hospital for obstructive uropathy, kidney stone, acute kidney injury with symptomatic kidney stone along with pyelonephritis and chest pain consistent with angina. 08/29: Patient states that she had 3-4 panic attacks last night and felt like she was having a heart attack. She has been seen by c winforms developer with recommendations to obtain echocardiogram and third troponin and will also check a patient had a recent stress test in the office. Repeat chest x-ray shows cardiomegaly and stable from comparison. Patient has been seen by Dr. Chino for acute pyelonephritis with plan for right ureteral stent insertion to relieve obstruction with plan for stone removal electively in several weeks after the infection has resolved. Fourth troponin came back at 2.970. 08/30: Her heart cath came back very positive for blockage of the LAD and the RCA angioplasty and stent was not successful, patient was referred to cardiothoracic surgery for possible bypass surgery, patient had her on concern about her open heart surgery does 1 a go for it until her kidney stone is treated and over. 08/31: Patient had her cystoscopy with stent placement by Dr. You yesterday successfully lives doing well with the current antibiotics, apparently she will be back to have lithotripsy after been on antibiotic for rapid at least another week and the earliest can go for open heart surgery would be 2-3 weeks from today. Also patient has become more debilitated will continue PTOT and patient might need to go to rehab from here until that time for open heart surgery. Objective - Vital Signs Vital signs: Vital Signs Temp 97.5 F L 08/31/17 08:00 Pulse 77 08/31/17 08:00 Resp 18 08/31/17 08:00 BP 138/82 08/31/17 08:00 Pulse Ox 95 08/31/17 08:00 Intake & Output 08/30/17 08/31/17 08/31/17 18:59 06:59 18:59 Intake Total 368 10 Output Total 0 Balance 368 10 Weight 123.3 kg Intake: IV 250 10 0.9 10 Oral 118 Output: Urine 0 Estimated Blood Loss 0 Other: Voiding Method Toilet Bedside Commode - Constitutional General appearance: Present: cooperative, disheveled, morbidly obese, no acute distress. Absent: average body habitus, mild distress, obese, severe distress, thin - EENT Eyes: Present: normal appearance. Absent: abnormal pupil, anicteric sclerae, disc margins sharp, edentulous, EOMI, PERRLA, fundus normal, photophobia, dentition normal, poor dentition, ptosis, scleral icterus ENT: Present: normal oropharynx. Absent: hard of hearing, hearing grossly normal, NA/AT, other, pharyngeal erythema, thrush, tonsillar exudates, tonsillar swelling Ears: bilateral: normal - Neck Neck: Present: normal ROM. Absent: lymphadenopathy, other, rigidity, stridor, thyromegaly Carotids: bilateral: upstroke normal, upstroke delayed Thyroid: bilateral: normal size - Respiratory Respiratory: bilateral: diminished, dullness, rales, rhonchi - Cardiovascular Rhythm: regular Heart sounds: normal: S1, S2 Abnormal Heart Sounds: Present: systolic murmur, S3 Gallop - Gastrointestinal Gastrointestinal Comment(s): Still have significant tenderness in the right upper quadrant and flank area. General gastrointestinal: Present: decreased bowel sounds, distended, normal bowel sounds, soft, tenderness - Integumentary Integumentary: Present: cellulitis, normal, pale, rash. Absent: calor, cyanotic , decreased turgor, flushed, jaundiced, normal turgor, ulcer - Neurologic Neurologic: Present: CNII-XII intact - Musculoskeletal Musculoskeletal: Present: gait normal, generalized weakness, strength equal bilaterally. Absent: right sided weakness, left sided weakness - Psychiatric Psychiatric: Present: A&O x's 3, appropriate affect - Labs CBC & Chem 7: 08/31/17 05:58 08/31/17 05:58 Labs: Abnormal Lab Results - Last 24 Hours (Table) 08/30/17 08/30/17 08/31/17 Range/Units 11:46 20:55 05:58 RBC 3.17 L (3.80-5.40) m/uL Hgb 7.7 L (11.4-16.0) gm/dL Hct 25.5 L (34.0-46.0) % MCH 24.4 L (25.0-35.0) pg MCHC 30.3 L (31.0-37.0) g/dL RDW 18.2 H (11.5-15.5) % Lymphocytes # 0.9 L (1.0-4.8) k/uL BUN (7-17) mg/dL Creatinine (0.52-1.04) mg/dL Glucose (74-99) mg/dL POC Glucose (mg/dL) 135 H 114 H (75-99) mg/dL Total Protein (6.3-8.2) g/dL Albumin (3.5-5.0) g/dL 08/31/17 08/31/17 Range/Units 05:58 06:14 RBC (3.80-5.40) m/uL Hgb (11.4-16.0) gm/dL Hct (34.0-46.0) % MCH (25.0-35.0) pg MCHC (31.0-37.0) g/dL RDW (11.5-15.5) % Lymphocytes # (1.0-4.8) k/uL BUN 19 H (7-17) mg/dL Creatinine 1.22 H (0.52-1.04) mg/dL Glucose 110 H (74-99) mg/dL POC Glucose (mg/dL) 123 H (75-99) mg/dL Total Protein 5.4 L (6.3-8.2) g/dL Albumin 2.9 L (3.5-5.0) g/dL Microbiology - Last 24 Hours (Table) 08/28/17 08:29 Urine Culture - Final Urine,Voided Escherichia coli Assessment and Plan Plan: 1 acute severe abdominal pain: Combination of kidney stone and pyelonephritis, patient was started on hydration IV antibiotics and urology consultation. Still seen Dr. Song had large stone might require either stent 2 large kidney stone in the right side with obstructive uropathy and hydronephrosis. Had stent post cystoscopy and will be going for lithotripsy possibly next week. 3 pyelonephritis and upper right tract infection most likely brought and caused by the stone. Patient will be on IV antibiotics switch to oral antibiotics when she is more stable. 4 acute non-ST WI: Heart cath was positive for 2 blockage, angioplasty was not successful patient was seen in cardiothoracic surgery and will need to go for open heart surgery except patient is disagreeing of doing the surgery not ~ kidney stone is a treated in done. Open heart surgery will be delayed for 2 weeks 5 history of pulmonary embolism: Has been on anticoagulation with Xarelto medication will be held for now and patient was switched to heparin drip until were quite sure about intervention for her kidney stone or not. 6 A. fib with RVR: Post ablation still on blood thinner medication and beta go. 7 history of CVA: Stable with no worsening residual at this point. 8 hypertension: Has been on metoprolol 50 mg twice a day and spironolactone. 9 hyperlipidemia: Off statin because of side effect. 10 hypothyroidism: On levothyroxine 112 g. 11 asthma: On albuterol/ipratropium 4 times a day 12 diabetes: Continue patient on Amaryl and metformin, Accu-Chek with sliding scales coverage and be done. 13 GI prophylaxis: On Pepcid daily. 14 DVT prophylaxis: Patient is on anticoagulation already. CODE STATUS: Full code. I have slightly but concern about teofilo Chin's well-being been discharge and apparently patient doesn't have any help, we'll continue PTOT patient will be going to one of the senior living rehab for the next week to 2 weeks until her open heart surgery scheduled. Discussion patient has extreme high comorbidity and high risk for surgery as well.
--- NOTE | 2017-08-31 11:38 | P.PN ---
Subjective Progress Note Date: 08/31/17 The patient had a double-J catheter placed yesterday for an obstructing kidney stone with pyelonephrosis, urinary tract infection with sepsis. She is feeling better. She has vague complaints unrelated to the kidney stone. Dr. Fry and I discussed the options and believe that she would be best served from a cardiac standpoint to have her treatments be completed. She should remain on blood thinner for 3 months. Objective - Vital Signs Vital signs: Vital Signs Temp 97.5 F L 08/31/17 08:00 Pulse 77 08/31/17 08:00 Resp 18 08/31/17 08:00 BP 138/82 08/31/17 08:00 Pulse Ox 95 08/31/17 08:00 Intake & Output 08/30/17 08/31/17 08/31/17 18:59 06:59 18:59 Intake Total 368 10 Output Total 0 Balance 368 10 Weight 123.3 kg Intake: IV 250 10 0.9 10 Oral 118 Output: Urine 0 Estimated Blood Loss 0 Other: Voiding Method Toilet Bedside Commode - Labs CBC & Chem 7: 08/31/17 05:58 08/31/17 05:58 Labs: Abnormal Lab Results - Last 24 Hours (Table) 08/30/17 08/30/17 08/31/17 Range/Units 11:46 20:55 05:58 RBC 3.17 L (3.80-5.40) m/uL Hgb 7.7 L (11.4-16.0) gm/dL Hct 25.5 L (34.0-46.0) % MCH 24.4 L (25.0-35.0) pg MCHC 30.3 L (31.0-37.0) g/dL RDW 18.2 H (11.5-15.5) % Lymphocytes # 0.9 L (1.0-4.8) k/uL BUN (7-17) mg/dL Creatinine (0.52-1.04) mg/dL Glucose (74-99) mg/dL POC Glucose (mg/dL) 135 H 114 H (75-99) mg/dL Total Protein (6.3-8.2) g/dL Albumin (3.5-5.0) g/dL 08/31/17 08/31/17 Range/Units 05:58 06:14 RBC (3.80-5.40) m/uL Hgb (11.4-16.0) gm/dL Hct (34.0-46.0) % MCH (25.0-35.0) pg MCHC (31.0-37.0) g/dL RDW (11.5-15.5) % Lymphocytes # (1.0-4.8) k/uL BUN 19 H (7-17) mg/dL Creatinine 1.22 H (0.52-1.04) mg/dL Glucose 110 H (74-99) mg/dL POC Glucose (mg/dL) 123 H (75-99) mg/dL Total Protein 5.4 L (6.3-8.2) g/dL Albumin 2.9 L (3.5-5.0) g/dL Microbiology - Last 24 Hours (Table) 08/31/17 05:50 Nasal Screen MRSA/MSSA (ELSI) - Preliminary Nasopharyngeal Swab 08/28/17 08:29 Urine Culture - Final Urine,Voided Escherichia coli
[2017-08-31] MEDS: LACTULOSE 20 GM/30 ML CUP PO SCH ×2 (12:45→20:53)
--- NOTE | 2017-08-31 13:50 | PN ---
PROGRESS NOTE Mrs. Bello had renal stenting performed today by Dr. You. She is doing better today. Has no further chest pain. I explained to her that she does have RCA lesion which can be addressed at a later date. Probably in the next two weeks. She can be discharged tomorrow and will see Dr. Logan in the office in 10 days or so and I will attempt a stenting of RCA again and hopefully we will try from the right femoral approach. This lady has a heavily calcified vessel that extremely tortuous as well. However, I could not open the LAD, which was a chronic total occlusion and there is always the anteroapical hypokinesia, but we will try RCA intervention at a later date. She can be discharged tomorrow. Vital signs are stable. Physical exam is unchanged. I will resume aspirin and also we will start Plavix tomorrow. S1-S2 heard normally. Short systolic murmur noted. Heart sounds are distantly. Lungs are clear. Abdomen is soft. Both radial pulses are good. The rest of physical examination is unchanged. MMODL / IJN: [id number] /
[2017-08-31] MEDS: MONTELUKAST 10 MG TAB PO SCH (20:52)
[2017-08-31 22:14] LABS: Glucose,Whole Blood 138 mg/dL (75-99)
[2017-09-01 05:59] LABS: Anisocytosis Slight; Basophils % (A) 1 %; Eosinophils # (A) 0.2 k/uL (0-0.7); Eosinophils % (A) 3 %; HCT 26.1 % (34.0-46.0); Hypochromasia Moderate; Lymphocytes # (A) 1.4 k/uL (1.0-4.8); Lymphocytes % (A) 21 %; MCH 24.7 pg (25.0-35.0); MCHC 30.8 g/dL (31.0-37.0); MCV 80.2 fL (80.0-100.0); Mean Platelet Volume 6.6; Microcytosis Slight; Monocytes # (A) 0.5 k/uL (0-1.0); Monocytes % (A) 7 %; Neutrophils # (A) 4.4 k/uL (1.3-7.7); Neutrophils % (A) 66 %; Platelet Count 193 k/uL (150-450); RBC 3.25 m/uL (3.80-5.40); RDW 18.8 % (11.5-15.5); WBC 6.7 k/uL (3.8-10.6)
[2017-09-01 06:11] LABS: Albumin 3.3 g/dL (3.5-5.0); Calcium 8.7 mg/dL (8.4-10.2); Potassium 4.2 mmol/L (3.5-5.1); Total Bilirubin 0.2 mg/dL (0.2-1.3); Total Protein 5.8 g/dL (6.3-8.2)
[2017-09-01 06:29] LABS: Glucose,Whole Blood 86 mg/dL (75-99)
[2017-09-01] MEDS: INSULIN ASPART 100 UNIT/ML 1 ML 10 ML VIAL SQ SCH ×4 (06:29→21:19)
[2017-09-01] MEDS: LEVOTHYROXINE 112 MCG TAB PO SCH (06:53)
[2017-09-01] MEDS: GLIMEPIRIDE 1 MG TAB PO SCH ×2 (09:08→17:07)
[2017-09-01] MEDS: SODIUM CHLORIDE 0.9% 1,000 ML IV SCH (09:08)
[2017-09-01] MEDS: ATORVASTATIN 40 MG TAB PO SCH (09:09)
[2017-09-01] MEDS: CYANOCOBALAMIN 500 MCG TAB PO SCH (09:09)
[2017-09-01] MEDS: ISOSORBIDE MONONITRATE ER 30 MG TAB.ER.24H PO SCH (09:10)
[2017-09-01] MEDS: LORATADINE 10 MG TAB PO SCH (09:10)
[2017-09-01] MEDS: FUROSEMIDE 40 MG TAB PO SCH (09:10)
[2017-09-01] MEDS: ASPIRIN 81 MG PO SCH (09:10)
[2017-09-01] MEDS: ALLOPURINOL 100 MG TAB PO SCH (09:10)
[2017-09-01] MEDS: SPIRONOLACTONE 25 MG TAB PO SCH (09:11)
[2017-09-01] MEDS: FERROUS SULFATE 325 MG TAB PO SCH ×2 (09:11→21:29)
[2017-09-01] MEDS: METOPROLOL TARTRATE 50 MG TAB PO SCH ×2 (09:11→21:29)
[2017-09-01] MEDS: LACTULOSE 20 GM/30 ML CUP PO SCH ×2 (09:11→21:29)
[2017-09-01] MEDS: cefTRIAXone IN SWFI 1,000 MG/10 ML SYRINGE IVP SCH ×2 (09:15→21:29)
[2017-09-01] MEDS: ALPRAZolam 0.5 MG TAB PO PRN ×2 (09:27→15:40)
[2017-09-01] MEDS: MORPHINE SULFATE 4 MG/ML SYRINGE IVP PRN ×3 (09:27→21:30)
--- NOTE | 2017-09-01 10:52 | P.PN ---
Subjective Progress Note Date: 09/01/17 Principal diagnosis: Severe abdominal pain, kidney stone, acute non-ST KS with positive heart cath, history of PE and DVT, paroxysmal A. fib, history of CVA, hypertension, diabetes. 61-year-old obese female one of Dr. Deluca's patient with multiple medical problem known to have history of diabetes hypertension hyperlipidemia coronary disease post angioplasty and stent placement in the past, also history of pulmonary embolism paroxysmal atrophy fibrillation with a pre-her ablation still on anticoagulation. Patient not seen Dr. Deluca, seen Dr. Taylor cardiology regular basis also had seen urology in the past for history of kidney stone. Patient presented to [facility] department at [facility] with episode of severe right- sided flank pain started around 4:30 in the morning associated with nausea fever and does not feeling well patient was seen in [facility] department her CT shows very large stone measure 1.2 cm in the right side with hydronephrosis. Patient also had slightly abnormal urine and elevated temperature. As she was in the emergency department developed to have midsternal chest pain and left- sided burning with significant blood pressure been in the 170-190. Patient was giving nitroglycerin had resolve some of her symptoms. Patient will be admitted to the hospital for obstructive uropathy, kidney stone, acute kidney injury with symptomatic kidney stone along with pyelonephritis and chest pain consistent with angina. 08/29: Patient states that she had 3-4 panic attacks last night and felt like she was having a heart attack. She has been seen by rubber heel and sole press tender with recommendations to obtain echocardiogram and third troponin and will also check a patient had a recent stress test in the office. Repeat chest x-ray shows cardiomegaly and stable from comparison. Patient has been seen by Dr. Chino for acute pyelonephritis with plan for right ureteral stent insertion to relieve obstruction with plan for stone removal electively in several weeks after the infection has resolved. Fourth troponin came back at 2.970. 08/30: Her heart cath came back very positive for blockage of the LAD and the RCA angioplasty and stent was not successful, patient was referred to cardiothoracic surgery for possible bypass surgery, patient had her on concern about her open heart surgery does 1 a go for it until her kidney stone is treated and over. 08/31: Patient had her cystoscopy with stent placement by Dr. You yesterday successfully lives doing well with the current antibiotics, apparently she will be back to have lithotripsy after been on antibiotic for rapid at least another week and the earliest can go for open heart surgery would be 2-3 weeks from today. Also patient has become more debilitated will continue PTOT and patient might need to go to rehab from here until that time for open heart surgery. 09/01: Patient is doing much better no further abdominal pain, chest pain, responding to current antibiotic has been good and she is doing well since her stent and cystoscopy. Patient has been seeing cardiology and urology and agreed to have her go to rehab and seen urology for the final management of her stone before deciding on open heart surgery. She is back on her warfarin and INR is been tested daily. Objective - Vital Signs Vital signs: Vital Signs Temp 97.9 F 09/01/17 09:00 Pulse 84 09/01/17 09:00 Resp 18 09/01/17 09:00 BP 121/79 09/01/17 09:00 Pulse Ox 95 09/01/17 09:00 Intake & Output 08/31/17 09/01/17 09/01/17 18:59 06:59 18:59 Intake Total 236 240 Balance 236 240 Weight 123.9 kg Intake: Oral 236 240 Other: Voiding Method Bedside Commode Bedside Commode Bedpan Bedpan # Voids 1 - Constitutional General appearance: Present: cooperative, disheveled, morbidly obese, no acute distress. Absent: average body habitus, mild distress, obese, severe distress, thin - EENT Eyes: Present: normal appearance. Absent: abnormal pupil, anicteric sclerae, disc margins sharp, edentulous, EOMI, PERRLA, fundus normal, photophobia, dentition normal, poor dentition, ptosis, scleral icterus ENT: Present: hard of hearing, pharyngeal erythema. Absent: hearing grossly normal, NA/AT, normal oropharynx, other, thrush, tonsillar exudates, tonsillar swelling Ears: bilateral: normal, bulging - Neck Neck: Present: normal ROM. Absent: lymphadenopathy, other, rigidity, stridor, thyromegaly Carotids: bilateral: upstroke normal, upstroke delayed Thyroid: bilateral: normal size - Respiratory Respiratory: bilateral: diminished, dullness, rales, rhonchi - Cardiovascular Rhythm: regular Heart sounds: normal: S1, S2 Abnormal Heart Sounds: Present: systolic murmur, S3 Gallop - Gastrointestinal General gastrointestinal: Present: decreased bowel sounds, distended, normal bowel sounds, soft. Absent: absent bowel sounds, hepatomegaly, hyperactive bowel sounds, organomegaly, rigid, scaphoid, splenomegaly, tenderness, umbilical hernia, ventral hernia - Integumentary Integumentary: Present: cellulitis, normal, pale. Absent: calor, cyanotic, decreased turgor, flushed, jaundiced, normal turgor, rash, ulcer - Neurologic Neurologic: Present: CNII-XII intact - Musculoskeletal Musculoskeletal: Present: generalized weakness, strength equal bilaterally. Absent: gait normal, right sided weakness, left sided weakness - Psychiatric Psychiatric: Present: A&O x's 3, appropriate affect. Absent: intact judgment & insight - Labs CBC & Chem 7: 09/01/17 05:40 09/01/17 05:40 Labs: Abnormal Lab Results - Last 24 Hours (Table) 08/31/17 09/01/17 09/01/17 Range/Units 22:12 05:40 05:40 RBC 3.25 L (3.80-5.40) m/uL Hgb 8.0 L (11.4-16.0) gm/dL Hct 26.1 L (34.0-46.0) % MCH 24.7 L (25.0-35.0) pg MCHC 30.8 L (31.0-37.0) g/dL RDW 18.8 H (11.5-15.5) % BUN 18 H (7-17) mg/dL POC Glucose (mg/dL) 138 H (75-99) mg/dL Total Protein 5.8 L (6.3-8.2) g/dL Albumin 3.3 L (3.5-5.0) g/dL Microbiology - Last 24 Hours (Table) 08/31/17 05:50 Nasal Screen MRSA/MSSA (ELSI) - Final Nasopharyngeal Swab Assessment and Plan Plan: 1 acute severe abdominal pain: Combination of kidney stone and pyelonephritis, patient was started on hydration IV antibiotics and urology consultation. Still seen Dr. Song had large stone post cystoscopy and stent, patient might still need to go for either surgery or lithotripsy. 2 large kidney stone in the right side with obstructive uropathy and hydronephrosis. Had stent post cystoscopy and will be going for lithotripsy possibly next week. 3 pyelonephritis and upper right tract infection most likely brought and caused by the stone. Patient will be on IV antibiotics switch to oral antibiotics when she is more stable. 4 acute non-ST KS: Heart cath was positive for 2 blockage, angioplasty was not successful patient was seen in cardiothoracic surgery and will need to go for open heart surgery except patient is disagreeing of doing the surgery not ~ kidney stone is a treated in done. Open heart surgery will be delayed for 2 weeks 5 history of pulmonary embolism: Has been on anticoagulation with Xarelto medication will be held for now and patient was switched to heparin drip until were quite sure about intervention for her kidney stone or not. 6 A. fib with RVR: Post ablation still on blood thinner medication and beta go. 7 history of CVA: Stable with no worsening residual at this point. 8 hypertension: Has been on metoprolol 50 mg twice a day and spironolactone. 9 hyperlipidemia: Off statin because of side effect. 10 hypothyroidism: On levothyroxine 112 g. 11 asthma: On albuterol/ipratropium 4 times a day 12 diabetes: Continue patient on Amaryl and metformin, Accu-Chek with sliding scales coverage and be done. 13 GI prophylaxis: On Pepcid daily. 14 DVT prophylaxis: Patient is on anticoagulation already. CODE STATUS: Full code. Patient is feeling good by tomorrow she might be able [facility] and to follow-up with urology in cardiothoracic, she will need to have her open heart surgery within the next 2-3 weeks but hopefully by then her kidney stone surgery has been completed.
[2017-09-01 11:37] LABS: Glucose,Whole Blood 115 mg/dL (75-99)
--- NOTE | 2017-09-01 16:03 | PN ---
PROGRESS NOTE Mrs. Oconnell is doing much better today. She has renal stents performed. She feels better. Denies any chest pain. Her right radial site is clean and dry with a good pulse. I am recommending that she can be discharged with the understanding that she will see Dr. Taylor or Dr. Logan within 1 week and I will recommend intervention off her right coronary artery which we can attempt but the LAD intervention will be difficult since it appears to be a chronic total occlusion. Her hemoglobin is 8.0 and her renal function is good at a creatinine of 1.02. She is feeling better clinically. Dr. Espinoza has evaluated the patient and felt that she is not a good candidate for surgery. Therefore, we will attempt PCI of a very dominant RCA that was stented before. This will be performed electively. Patient can be discharged. I reviewed all her medications and she will continue the same. MMODL / IJN: [id number] /
[2017-09-01 16:05] VITALS: RESP 18
[2017-09-01 17:00] LABS: Glucose,Whole Blood 100 mg/dL (75-99)
[2017-09-01 20:51] LABS: Glucose,Whole Blood 110 mg/dL (75-99)
[2017-09-01] MEDS: MONTELUKAST 10 MG TAB PO SCH (21:29)
[2017-09-02] MEDS: MORPHINE SULFATE 4 MG/ML SYRINGE IVP PRN ×2 (04:22→12:11)
[2017-09-02 06:07] LABS: Glucose,Whole Blood 108 mg/dL (75-99)
[2017-09-02] MEDS: SODIUM CHLORIDE 0.9% 1,000 ML IV SCH ×2 (06:20→12:21)
[2017-09-02] MEDS: INSULIN ASPART 100 UNIT/ML 1 ML 10 ML VIAL SQ SCH ×2 (06:21→11:59)
[2017-09-02 06:22] LABS: Anisocytosis Slight; Basophils % (A) 0 %; Eosinophils # (A) 0.3 k/uL (0-0.7); Eosinophils % (A) 5 %; HCT 23.3 % (34.0-46.0); HGB 7.1 gm/dL (11.4-16.0); Hypochromasia Moderate; Lymphocytes % (A) 18 %; MCH 24.2 pg (25.0-35.0); MCHC 30.4 g/dL (31.0-37.0); MCV 79.6 fL (80.0-100.0); Mean Platelet Volume 6.1; Microcytosis Slight; Monocytes # (A) 0.4 k/uL (0-1.0); Monocytes % (A) 7 %; Neutrophils # (A) 3.9 k/uL (1.3-7.7); Neutrophils % (A) 67 %; Platelet Count 211 k/uL (150-450); RBC 2.92 m/uL (3.80-5.40); RDW 18.7 % (11.5-15.5); WBC 5.9 k/uL (3.8-10.6)
[2017-09-02 06:24] LABS: INR 1.1 (<1.2); Prothrombin Time 10.7 sec (9.0-12.0)
[2017-09-02] MEDS: GLIMEPIRIDE 1 MG TAB PO SCH (06:28)
[2017-09-02] MEDS: LEVOTHYROXINE 112 MCG TAB PO SCH (06:29)
[2017-09-02 06:37] LABS: ALT 23 U/L (9-52); AST 25 U/L (14-36); Albumin 2.7 g/dL (3.5-5.0); Alkaline Phosphatase 66 U/L (38-126); Anion Gap 9 mmol/L; Blood Urea Nitrogen 19 mg/dL (7-17); Calcium 8.2 mg/dL (8.4-10.2); Carbon Dioxide 26 mmol/L (22-30); Chloride 103 mmol/L (98-107); Glucose 89 mg/dL (74-99); Sodium 138 mmol/L (137-145); Total Bilirubin <0.1 mg/dL (0.2-1.3); Total Protein 5.1 g/dL (6.3-8.2)
[2017-09-02] MEDS: ALLOPURINOL 100 MG TAB PO SCH (09:36)
[2017-09-02] MEDS: ATORVASTATIN 40 MG TAB PO SCH (09:36)
[2017-09-02] MEDS: ASPIRIN 81 MG PO SCH (09:36)
[2017-09-02] MEDS: FUROSEMIDE 40 MG TAB PO SCH (09:37)
[2017-09-02] MEDS: ISOSORBIDE MONONITRATE ER 30 MG TAB.ER.24H PO SCH (09:37)
[2017-09-02] MEDS: CYANOCOBALAMIN 500 MCG TAB PO SCH (09:37)
[2017-09-02] MEDS: FERROUS SULFATE 325 MG TAB PO SCH (09:37)
[2017-09-02] MEDS: METOPROLOL TARTRATE 50 MG TAB PO SCH (09:38)
[2017-09-02] MEDS: LACTULOSE 20 GM/30 ML CUP PO SCH (09:38)
[2017-09-02] MEDS: SPIRONOLACTONE 25 MG TAB PO SCH (09:38)
[2017-09-02] MEDS: LORATADINE 10 MG TAB PO SCH (09:38)
[2017-09-02] MEDS: cefTRIAXone IN SWFI 1,000 MG/10 ML SYRINGE IVP SCH (09:51)
--- NOTE | 2017-09-02 10:06 | P.DS ---
Providers Date of admission: 08/30/17 16:44 Expected date of discharge: 09/02/17 Attending physician: Lor Deluca Consults: 08/28/17 11:32 Consult Physician Routine Consulting Provider: Ramiro Chino Consult Reason/Comments: Ureterolithiasis with hydronephrosis Do you want consulting provider notified?: Yes Consult Physician Urgent Consulting Provider: Myrna Logan Consult Reason/Comments: Chest pain Do you want consulting provider notified?: Yes 08/29/17 20:36 Consult Physician Routine Consulting Provider: Domenico Saha Consult Reason/Comments: Possible CABG- failed heart cath with stent Do you want consulting provider notified?: Yes, Notify in am Primary care physician: Lor Deluca Hospital Course: 61-year-old obese female one of Dr. Deluca's patient with multiple medical problem known to have history of diabetes hypertension hyperlipidemia coronary disease post angioplasty and stent placement in the past, also history of pulmonary embolism paroxysmal atrophy fibrillation with a pre-her ablation still on anticoagulation. Patient not seen Dr. Deluca, seen Dr. Taylor cardiology regular basis also had seen urology in the past for history of kidney stone. Patient presented to [facility] department at [facility] with episode of severe right- sided flank pain started around 4:30 in the morning associated with nausea fever and does not feeling well patient was seen in dem[facility] department her CT shows very large stone measure 1.2 cm in the right side with hydronephrosis. Patient also had slightly abnormal urine and elevated temperature. As she was in the emergency department developed to have midsternal chest pain and left- sided burning with significant blood pressure been in the 170-190. Patient was giving nitroglycerin had resolve some of her symptoms. Patient will be admitted to the hospital for obstructive uropathy, kidney stone, acute kidney injury with symptomatic kidney stone along with pyelonephritis and chest pain consistent with angina. 08/29: Patient states that she had 3-4 panic attacks last night and felt like she was having a heart attack. She has been seen by executive community planning with recommendations to obtain echocardiogram and third troponin and will also check a patient had a recent stress test in the office. Repeat chest x-ray shows cardiomegaly and stable from comparison. Patient has been seen by Dr. Chino for acute pyelonephritis with plan for right ureteral stent insertion to relieve obstruction with plan for stone removal electively in several weeks after the infection has resolved. Fourth troponin came back at 2.970. 08/30: Her heart cath came back very positive for blockage of the LAD and the RCA angioplasty and stent was not successful, patient was referred to cardiothoracic surgery for possible bypass surgery, patient had her on concern about her open heart surgery does 1 a go for it until her kidney stone is treated and over. 08/31: Patient had her cystoscopy with stent placement by Dr. You yesterday successfully lives doing well with the current antibiotics, apparently she will be back to have lithotripsy after been on antibiotic for rapid at least another week and the earliest can go for open heart surgery would be 2-3 weeks from today. Also patient has become more debilitated will continue PTOT and patient might need to go to rehab from here until that time for open heart surgery. 09/01: Patient is doing much better no further abdominal pain, chest pain, responding to current antibiotic has been good and she is doing well since her stent and cystoscopy. Patient has been seeing cardiology and urology and agreed to have her go to rehab and seen urology for the final management of her stone before deciding on open heart surgery. She is back on her warfarin and INR is been tested daily. 09/02: Patient has been cleared for discharge by Dr. ALANA Fry and plan for follow -up with Dr. Taylor or Dr. Logan in one week for intervention of her right coronary artery and LAD intervention will be difficult since it is a chronic total occlusion. Dr. Espinoza has evaluated the patient and she is not a good candidate for surgery, therefore, a PCI of the dominant RCA was stented before will be attempted and performed electively. Patient will be resumed back on Xarelto but will need to be discontinued prior to renal stone procedure. Today, hemoglobin is 7.1, BUN 19 and creatinine 0.94. Urine culture is positive for E coli pansensitive. Patient will be discharged to [facility] in stable condition. Discharge Diagnoses: 1 acute severe abdominal pain: Combination of kidney stone, E coli urinary tract infection and pyelonephritis, status post cystoscopy and double-J catheter which will remain in place until the stone is treated 2 large kidney stone in the right side with obstructive uropathy and hydronephrosis. 3 pyelonephritis and upper right tract infection most likely brought and caused by the stone. 4 acute non-ST NE status post heart catheterization revealing diffuse coronary artery disease with heavy calcification. Total occlusion of the LAD in the mid to distal section. Distal LAD seen by faint collateral flow. Stent in the RCA is patent with significant lesion beyond stent. Circumflex is free of any focal occlusive lesion. Unsuccessful PTCA of both LAD and RCA. 5 history of pulmonary embolism: Has been on anticoagulation with Xarelto 6 History of paroxysmal atrial fibrillation: Post ablation still 7 history of CVA: Stable 8 hypertension 9 hyperlipidemia 10 hypothyroidism 11 asthma, mild intermittent 12 diabetes mellitus type II Discharge plan: [place] under the care of Dr. Pastor Impression and plan of care have been directed as dictated by the signing physician. Ester Hobson nurse practitioner acting as scribe for signing physician. Patient Condition at Discharge: Good Plan - Discharge Summary Discharge Rx Participant: No New Discharge Prescriptions: New Aspirin 81 mg PO DAILY chew Atorvastatin [Lipitor] 40 mg PO DAILY tab Cefuroxime Axetil [Ceftin] 500 mg PO BID #60 tab Lactulose [Cephulac] 20 gm PO BID ml Metoprolol Tartrate [Lopressor] 50 mg PO BID tab Rivaroxaban [Xarelto] 20 mg PO DAILY #30 tab Continue Isosorbide Mononitrate ER [Imdur] 30 mg PO DAILY Cyanocobalamin [Vitamin B-12] 1,000 mcg PO DAILY metFORMIN HCL 1,000 mg PO BID-W/MEALS Nitroglycerin Sl Tabs [Nitrostat] 0.4 mg SUBLINGUAL Q5M PRN tab PRN Reason: Chest Pain Famotidine [Pepcid] 20 mg PO BID PRN PRN Reason: Heartburn Ipratropium-Albuterol Nebulize [Duoneb 0.5 mg-3 mg/3 ml Soln] 3 ml INHALATION RT-QID PRN PRN Reason: Shortness Of Breath Sodium Chloride 5% Ophth Soln [Trini 128] 1 drops BOTH EYES DAILY PRN PRN Reason: Dry Eye(S) Montelukast [Singulair] 10 mg PO HS Loratadine [Claritin] 10 mg PO DAILY Furosemide [Lasix] 40 mg PO DAILY Ferrous Sulfate [Iron (65 MG Elemental)] 325 mg PO BID Febuxostat [Uloric] 40 mg PO DAILY Levothyroxine Sodium [Synthroid] 112 mcg PO DAILY Glimepiride [Amaryl] 0.5 mg PO AC-BID Spironolactone [Aldactone] 25 mg PO DAILY Discontinued Metoprolol Tartrate [Lopressor] 25 mg PO BID Meloxicam [Mobic] 15 mg PO DAILY Discharge Medication List Isosorbide Mononitrate ER [Imdur] 30 mg PO DAILY 05/12/14 [History] Cyanocobalamin [Vitamin B-12] 1,000 mcg PO DAILY 02/17/15 [History] metFORMIN HCL 1,000 mg PO BID-W/MEALS 02/17/15 [History] Nitroglycerin Sl Tabs [Nitrostat] 0.4 mg SUBLINGUAL Q5M PRN tab 01/14/17 [Rx] Famotidine [Pepcid] 20 mg PO BID PRN 08/28/17 [History] Febuxostat [Uloric] 40 mg PO DAILY 08/28/17 [History] Ferrous Sulfate [Iron (65 MG Elemental)] 325 mg PO BID 08/28/17 [History] Furosemide [Lasix] 40 mg PO DAILY 08/28/17 [History] Glimepiride [Amaryl] 0.5 mg PO AC-BID 08/28/17 [History] Ipratropium-Albuterol Nebulize [Duoneb 0.5 mg-3 mg/3 ml Soln] 3 ml INHALATION RT -QID PRN 08/28/17 [History] Levothyroxine Sodium [Synthroid] 112 mcg PO DAILY 08/28/17 [History] Loratadine [Claritin] 10 mg PO DAILY 08/28/17 [History] Montelukast [Singulair] 10 mg PO HS 08/28/17 [History] Sodium Chloride 5% Ophth Soln [Trini 128] 1 drops BOTH EYES DAILY PRN 08/28/17 [ History] Spironolactone [Aldactone] 25 mg PO DAILY 08/28/17 [History] Aspirin 81 mg PO DAILY chew 09/02/17 [Rx] Atorvastatin [Lipitor] 40 mg PO DAILY tab 09/02/17 [Rx] Cefuroxime Axetil [Ceftin] 500 mg PO BID #60 tab 09/02/17 [Rx] Lactulose [Cephulac] 20 gm PO BID ml 09/02/17 [Rx] Metoprolol Tartrate [Lopressor] 50 mg PO BID tab 09/02/17 [Rx] Rivaroxaban [Xarelto] 20 mg PO DAILY #30 tab 09/02/17 [Rx] Follow up Appointment(s)/Referral(s): Lor Deluca MD [Primary Care Provider] - 1 Week Myrna Logan MD [STAFF PHYSICIAN] - 1 Week Edwar You MD [STAFF PHYSICIAN] - 1 Week Discharge Disposition: TRANSFER TO SNF/ECF
[2017-09-02 11:28] LABS: Glucose,Whole Blood 96 mg/dL (75-99)
[2017-09-02 12:20] VITALS: TEMP 97
--- NOTE | 2017-09-02 13:14 | P.PN ---
Subjective Progress Note Date: 09/02/17 This is a pleasant 61-year-old female with history of diabetes, hypertension, hyperlipidemia, coronary artery disease with prior stent placement , prior CVA, history of PE, patient also has history of paroxysmal atrial fibrillation and has had a prior ablation performed. Patient used to follow with Dr. Aguila in the office, she states for the past several years she follows with . She presents to the hospital on this occasion with symptoms of right flank pain, she states that she had been constipated for a few days, finally had a large bowel movement and thought maybe her pain was from that, in spite of moving her bowels she continued to have severe right CVA pain, it did radiate around to the right lower quadrant abdominal area. Patient underwent a computed tomography scan of the abdomen which revealed right hydronephrosis due to a 12 mm right calculus. Additional bilateral renal calculi were noted. Patient has been seen in consultation by urology and is scheduled to undergo surgery with stent placement possibly today. Subsequent to her admission here patient did develop severe left-sided chest pain radiating into her jaw and down both arms, she states she had associated shortness of breath. She described the pain as severe in nature. Patient was given nitroglycerin without relief of symptoms, EKG was performed which showed a sinus tachycardia at that time. As of the chest discomfort a cardiology consultation has been requested. Her EKG on admission here showed a normal sinus rhythm with no acute changes. Subsequent EKG shows sinus tachycardia with PVCs. And EKG performed this morning shows a normal sinus rhythm with no acute changes. Patient ultimately got relief of her symptoms after she was given some Xanax. Chest x-ray was performed. Blood pressure on arrival 172/70 with a heart rate in the 80s, 93% on room air. White blood cell count 11.8, hemoglobin 9.6, platelet count 243. Sodium 140, potassium 4.6, BUN 21, creatinine 0.7. Magnesium 1.5, troponins negative 2. At the time of my examination this morning patient is currently chest pain-free. Echocardiogram with Doppler study performed in January 2017 revealed an ejection fraction of 50 -55%. 09/02/2017 She was taken to the cardiac catheterization lab, an attempt was made of PTCA to the mid LAD and right coronary artery which was unsuccessful. Subsequent to that, patient was approved to undergo stenting of her kidneys which was performed over the weekend. The decision was made to continue medical therapy at this time. In one month the plan is to proceed with the surgery of the kidneys, and following that an attempt will be made at angioplasty and stenting once again. As discussed by Dr. Tonie Fry and the urologist. From our perspective, patient should be able to be discharged home today to follow-up with Dr. Taylor in the office. Initially she will see Dr. Fry in follow-up because of the need for percutaneous intervention, then she will follow-up with Dr. Taylor down the road. Objective - Vital Signs Vital signs: Vital Signs Temp 97 F L 09/02/17 12:00 Pulse 80 09/02/17 12:00 Resp 18 09/02/17 12:00 BP 119/67 09/02/17 12:00 Pulse Ox 97 09/02/17 12:00 Intake & Output 09/01/17 09/02/17 09/02/17 18:59 06:59 18:59 Intake Total 960 240 Output Total 200 Balance 960 -200 240 Weight 124.6 kg Intake: Oral 960 240 Output: Urine 200 Other: Voiding Method Bedside Commode Bedside Commode Bedside Commode Bedpan Bedpan Bedpan # Voids 1 - Exam GENERAL: HEENT: Head is atraumatic, normocephalic. Pupils equal, round. Sclera anicteric. Conjunctiva are clear. Mucous membranes of the mouth are moist. Neck is supple. There is no elevated jugular venous pressure.] bruit is heard. HEART EXAMINATION: Heart S1 and S2 systolic murmur is heard CHEST EXAMINATION: Lungs are clear to auscultation and precussion. No chest wall tenderness is noted on palpation or with deep breathing. ABDOMEN: Soft, obese, positive right lower quadrant tenderness . Bowel sounds are heard. No organomegaly noted. EXTREMITIES: 2+ peripheral pulses with trace evidence of peripheral edema and no calf tenderness noted. NEUROLOGIC patient is awake, alert and oriented -3. . - Labs CBC & Chem 7: 09/02/17 05:54 09/02/17 05:54 Labs: Abnormal Lab Results - Last 24 Hours (Table) 09/01/17 09/01/17 09/02/17 Range/Units 16:49 20:49 05:54 RBC 2.92 L (3.80-5.40) m/uL Hgb 7.1 L (11.4-16.0) gm/dL Hct 23.3 L (34.0-46.0) % MCV 79.6 L (80.0-100.0) fL MCH 24.2 L (25.0-35.0) pg MCHC 30.4 L (31.0-37.0) g/dL RDW 18.7 H (11.5-15.5) % BUN (7-17) mg/dL POC Glucose (mg/dL) 100 H 110 H (75-99) mg/dL Calcium (8.4-10.2) mg/dL Total Bilirubin (0.2-1.3) mg/dL Total Protein (6.3-8.2) g/dL Albumin (3.5-5.0) g/dL 09/02/17 09/02/17 Range/Units 05:54 06:06 RBC (3.80-5.40) m/uL Hgb (11.4-16.0) gm/dL Hct (34.0-46.0) % MCV (80.0-100.0) fL MCH (25.0-35.0) pg MCHC (31.0-37.0) g/dL RDW (11.5-15.5) % BUN 19 H (7-17) mg/dL POC Glucose (mg/dL) 108 H (75-99) mg/dL Calcium 8.2 L (8.4-10.2) mg/dL Total Bilirubin <0.1 L (0.2-1.3) mg/dL Total Protein 5.1 L (6.3-8.2) g/dL Albumin 2.7 L (3.5-5.0) g/dL Microbiology - Last 24 Hours (Table) 08/31/17 05:50 Nasal Screen MRSA/MSSA (ELSI) - Final Nasopharyngeal Swab Assessment and Plan Plan: Assessment and plan #1 symptoms of right flank and right lower quadrant pain with evidence of hydronephrosis with urinary obstruction due to ureteral calculus status post stenting of the kidneys #2 non-ST elevation myocardial infarction, status post unsuccessful angioplasty of the LAD and RCA #3 hypertension #4 diabetes # 5 hyperlipidemia #6 prior PE #7 history of stroke #8 paroxysmal atrial fibrillation with prior ablation #9 hypothyroidism #10 anxiety Plan Echocardiogram with Doppler study performed revealed an ejection fraction of 35- 40%. The decision was made to discharge the patient, in one month patient will undergo surgery for the kidneys. Subsequent to that patient will then be taken back to the cardiac catheterization lab for an attempt of angioplasty and stenting of the RCA. She will follow-up with ALANA Fry in the office one week post discharge and subsequent to that we'll continue to follow with Dr. Taylor as her primary senior benefits manager. DNP note has been reviewed, I agree with a documented findings and plan of care. Patient was seen and examined.
[2017-09-02 15:22] VITALS: BP 119/83; PULSE 70
[2017-09-02 16:53] LABS: Glucose,Whole Blood 131 mg/dL (75-99)
== END 2017-09-02 17:41 | DRG 251 ==
LOC: EC 06:21 → 3OBS 11:32 → 6SEL 15:33 → OBSVTOIN 08-30 16:44
PROVIDERS: ADMIT Family Medicine; ATTEND Family Medicine
PROC: 02713ZZ Dilation of Coronary Artery, Two Arteries, Percutaneous Approach (ICD-10-PCS; 2017-08-29)
PROC: B2111ZZ Fluoroscopy of Multiple Coronary Arteries using Low Osmolar Contrast (ICD-10-PCS; principal; 2017-08-29 12:15)
PROC: 4A023N7 Measurement of Cardiac Sampling and Pressure, Left Heart, Percutaneous Approach (ICD-10-PCS; principal; 2017-08-29 12:15)
PROC: 0T768DZ Dilation of Right Ureter with Intraluminal Device, Via Natural or Artificial Opening Endoscopic (ICD-10-PCS; 2017-08-30)
DX: I21.4 Non-ST elevation (NSTEMI) myocardial infarction (principal); N13.2 Hydronephrosis with renal and ureteral calculous obstruction; I13.0 Hypertensive heart and chronic kidney disease with heart failure and stage 1 through stage 4 chronic kidney disease, or unspecified chronic kidney disease; I42.9 Cardiomyopathy, unspecified; I50.22 Chronic systolic (congestive) heart failure; I69.354 Hemiplegia and hemiparesis following cerebral infarction affecting left non-dominant side; Z68.42 Body mass index [BMI] 45.0-49.9, adult; N17.9 Acute kidney failure, unspecified; I25.110 Atherosclerotic heart disease of native coronary artery with unstable angina pectoris; B96.20 Unspecified Escherichia coli [E. coli] as the cause of diseases classified elsewhere; E03.9 Hypothyroidism, unspecified; E11.22 Type 2 diabetes mellitus with diabetic chronic kidney disease; E66.01 Morbid (severe) obesity due to excess calories; E78.5 Hyperlipidemia, unspecified; F32.9 Major depressive disorder, single episode, unspecified; F41.0 Panic disorder [episodic paroxysmal anxiety]; E11.42 Type 2 diabetes mellitus with diabetic polyneuropathy; I25.2 Old myocardial infarction; I25.84 Coronary atherosclerosis due to calcified coronary lesion; I48.0 Paroxysmal atrial fibrillation; I49.3 Ventricular premature depolarization; J45.20 Mild intermittent asthma, uncomplicated; M79.7 Fibromyalgia; N18.3 Chronic kidney disease, stage 3 (moderate); N30.90 Cystitis, unspecified without hematuria; Z79.01 Long term (current) use of anticoagulants; Z79.1 Long term (current) use of non-steroidal anti-inflammatories (NSAID); Z79.899 Other long term (current) drug therapy; Z82.49 Family history of ischemic heart disease and other diseases of the circulatory system; Z86.711 Personal history of pulmonary embolism; Z86.718 Personal history of other venous thrombosis and embolism; Z87.442 Personal history of urinary calculi; Z87.891 Personal history of nicotine dependence; Z90.710 Acquired absence of both cervix and uterus; Z95.1 Presence of aortocoronary bypass graft; Z95.5 Presence of coronary angioplasty implant and graft; Z53.09 Procedure and treatment not carried out because of other contraindication
CPT/HCPCS: 36415; 71046; 74176; 80048; 80053; 80061; 80074; 81001; 82150; 82550; 82553; 83036; 83605; 83690; 83735; 84439; 84443; 84484; 85025; 85610; 85730; 87070; 87077; 87086; 87186; 93005; 93306; 93458; 94150; 94640; 94760; 96361; 96374; 96375; 99291

== ENCOUNTER 2017-09-03 06:15 | Emergency (ER) | payer MEDICARE, BC ==
[2017-09-03 06:28] VITALS: RESP 18
[2017-09-03 06:56] LABS: Anisocytosis Slight; Basophils % (A) 1 %; Eosinophils # (A) 0.3 k/uL (0-0.7); Eosinophils % (A) 4 %; HCT 26.8 % (34.0-46.0); HGB 8.3 gm/dL (11.4-16.0); Hypochromasia Moderate; Lymphocytes # (A) 1.1 k/uL (1.0-4.8); Lymphocytes % (A) 14 %; MCH 24.5 pg (25.0-35.0); MCHC 31.1 g/dL (31.0-37.0); MCV 78.8 fL (80.0-100.0); Mean Platelet Volume 6.6; Microcytosis Slight; Monocytes # (A) 0.5 k/uL (0-1.0); Monocytes % (A) 7 %; Neutrophils # (A) 5.5 k/uL (1.3-7.7); Neutrophils % (A) 72 %; Platelet Count 267 k/uL (150-450); RBC 3.41 m/uL (3.80-5.40); RDW 18.3 % (11.5-15.5); WBC 7.6 k/uL (3.8-10.6)
[2017-09-03 07:05] LABS: Appearance,Urine Clear (Clear); Bacteria,Urine Occasional /hpf; Bilirubin,Urine Negative (Negative); Blood,Urine Moderate (Negative); Color,Urine Colorless; Glucose,Urine (UA) Negative (Negative); Ketones,Urine Negative (Negative); Leukocyte Esterase,Urine Large (Negative); Mucus,Urine Rare /hpf; Nitrite,Urine Negative (Negative); PH, Urine 6.5 (5.0-8.0); Protein,Urine Negative (Negative); RBC,Urine 27 /hpf (0-5); Specific Gravity,Urine 1.004 (1.001-1.035); Squamous Epithelial Cell,Urine <1 /hpf (0-4); Urobilinogen,Urine <2.0 mg/dL (<2.0); WBC,Urine 50 /hpf (0-5)
[2017-09-03 07:06] LABS: Albumin 3.2 g/dL (3.5-5.0); Potassium 4.1 mmol/L (3.5-5.1); Total Bilirubin 0.3 mg/dL (0.2-1.3); Total Protein 5.8 g/dL (6.3-8.2)
--- NOTE | 2017-09-03 07:30 | XR ---
EXAM: XR Abdomen, 2 Views CLINICAL HISTORY: ITS.REASON XR Reason: abdominal pain TECHNIQUE: Frontal view of the abdomen/pelvis with upright view of the abdomen. COMPARISON: 03/17/15. FINDINGS: Intraperitoneal space: No free air on the upright view. There are calcifications in the mid abdomen bilaterally. The number of calcifications appears decreased compared to the prior study of 03/17/15. Calcification in the right mid kidney partly obscured by the ureteral stent. Approximate measurement is 8 mm. Faint calcification in the left mid abdomen measures approximately 9 mm. Gastrointestinal tract: Moderate retained stool seen throughout the large bowel. No focal small bowel dilatation. Bones/joints: Unremarkable. Tubes, lines and devices: Right sided internal ureteral stent present. IMPRESSION: Bilateral renal calculi, decreased in number. Right internal ureteral stent in place. Nonspecific bowel gas pattern with moderate retained stool
[2017-09-03] MEDS ORDERED: MAGNESIUM CITRATE 296 ML BOTTLE PO ONE (07:34)
[2017-09-03] MEDS ORDERED: MORPHINE SULFATE 4 MG/ML SYRINGE IVP STA (07:36)
[2017-09-03] MEDS ORDERED: NA PHOS,M-B/NA PHOS,DI-BA 133 ML ENEMA RECTAL STA (07:36)
[2017-09-03] MEDS ORDERED: MORPHINE SULFATE 2 MG/ML SYRINGE IVP STA (07:44)
--- NOTE | 2017-09-03 07:46 | ED ---
General Adult HPI - General Chief complaint: Abdominal Pain Stated complaint: Abd pain Time Seen by Provider: 09/03/17 07:01 Source: patient, EMS, RN notes reviewed, old records reviewed Mode of arrival: EMS Limitations: physical limitation - History of Present Illness Initial comments: 61-year-old female presenting for evaluation of right flank and left lower quadrant abdominal pain. Patient had recent hospitalization with obstructing kidney stone requiring a right ureteral stent. She was also treated for urinary tract infection and is currently on antibiotics. During this recent admission she did have cardiac event requiring heart catheterization. At this time she denies chest pain. She has had some persistent dyspnea which was present throughout her admission and at the time of discharge. Denies cough. Denies fever or chills. She states her last bowel movement was approximately 6 days ago just prior to her admission. During her hospital admission she was on IV morphine. In addition to her right flank pain which is been present since her previous admission she developed some left lower quadrant abdominal pain. No dysuria. - Related Data Home Medications Medication Instructions Recorded Confirmed Isosorbide Mononitrate ER [Imdur] 30 mg PO DAILY@0800 0209/03/17 Cyanocobalamin [Vitamin B-12] 1,000 mcg PO DAILY@1700 02/17/15 09/03/17 metFORMIN HCL 1,000 mg PO BID@0800,1700 02/17/15 09/03/17 Famotidine [Pepcid] 20 mg PO BID PRN 08/28/17 09/03/17 Febuxostat [Uloric] 40 mg PO DAILY@0800 08/28/17 09/03/17 Ferrous Sulfate [Iron (65 MG 325 mg PO BID@0800,1700 08/28/17 09/03/17 Elemental)] Furosemide [Lasix] 40 mg PO DAILY@0600 08/28/17 09/03/17 Glimepiride [Amaryl] 0.5 mg PO AC-BID 08/28/17 09/03/17 Ipratropium-Albuterol Nebulize 3 ml INHALATION RT-QID PRN 08/28/17 09/03/17 [Duoneb 0.5 mg-3 mg/3 ml Soln] Levothyroxine Sodium [Synthroid] 112 mcg PO DAILY@0600 08/28/17 09/03/17 Loratadine [Claritin] 10 mg PO DAILY@0800 08/28/17 09/03/17 Montelukast [Singulair] 10 mg PO HS@209908/28/17 09/03/17 Sodium Chloride 5% Ophth Soln 1 drops BOTH EYES DAILY PRN 08/28/17 09/03/17 [Trini 128] Spironolactone [Aldactone] 25 mg PO DAILY@0808/28/17 09/03/17 Acetaminophen [Tylenol Arthritis] 650 mg PO Q4H PRN 09/03/17 09/03/17 Aspirin 81 mg PO DAILY@169909/03/17 09/03/17 Atorvastatin [Lipitor] 40 mg PO DAILY@0809/03/17 09/03/17 Bisacodyl [Dulcolax] 10 mg RECTAL DAILY PRN 09/03/17 09/03/17 Cefuroxime Axetil [Ceftin] 500 mg PO BID@0800,209909/03/17 09/03/17 Lactulose [Cephulac] 20 gm PO BID@0800,169909/03/17 09/03/17 Magnesium Hydroxide [Milk of 2,400 mg PO DAILY PRN 09/03/17 09/03/17 Magnesia] Metoprolol Tartrate [Lopressor] 50 mg PO BID@0800,169909/03/17 09/03/17 Na Phos,M-B/Na Phos,Di-Ba [Fleet 133 ml RECTAL DAILY PRN 09/03/17 09/03/17 Adult] Rivaroxaban [Xarelto] 20 mg PO DAILY@0800 09/03/17 09/03/17 Previous Rx's Medication Instructions Recorded Nitroglycerin Sl Tabs [Nitrostat] 0.4 mg SUBLINGUAL Q5M PRN tab 01/14/17 ALPRAZolam [Xanax] 0.25 mg PO TID PRN 3 Days #9 tab 09/03/17 Docusate [Colace] 100 mg PO BID #60 capsule 09/03/17 HYDROcodone/APAP 5-325MG [[place] 1 tab PO Q6HR PRN #12 tab 09/03/17 5-325] Allergies Allergy/AdvReac Type Severity Reaction Status Date / Time latex Allergy Rash/Hives Verified 09/03/17 07:39 Milk Containing Products AdvReac THRUSH Verified 09/03/17 07:39 [Dairy] Tetracyclines AdvReac YEAST Verified 09/03/17 07:39 INFECTION- PREFERS NOT TO TAKE tramadol AdvReac Nausea & Verified 09/03/17 07:39 Vomiting ENVIRONMENTAL ALLERGIES Allergy SINUS Uncoded 09/03/17 06:28 SYMPTOMS-GRASS TREES,DUST,POLLENS,MOLD Review of Systems ROS Statement: Those systems with pertinent positive or pertinent negative responses have been documented in the HPI. ROS Other: All systems not noted in ROS Statement are negative. Past Medical History Past Medical History: Atrial Fibrillation, Asthma, Coronary Artery Disease (CAD) , Heart Failure, CVA/TIA, Diabetes Mellitus, Deep Vein Thrombosis (DVT), Fibromyalgia, Hyperlipidemia, Hypertension, Myocardial Infarction ([place]), Osteoarthritis (OA), Pulmonary Embolus (PE), Skin Disorder, Thyroid Disorder Additional Past Medical History / Comment(s): rt side dominant,BOTTOM 1/3 HEART DAMAGED-HEART MURMUR,cardiomyopathy,pt states she ahs ahd 4 mi's CHRONIC CONSTIPATION, ECZEMA-SKIN VERY DRY,SINUS HEADACHES, HX ANEMIA, HYST in 2014-was told cancer, gout. stage III kidney disease, past kidneys tone. 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.FEET- NUMBNESS IF STANDS FOR MORE THAN 5, MINUTES,STROKE @ AGE 39-MILD weakness LT SIDE uses cane when up-AFFECTED FACE-LT EYELID, neuropathy, lt hand tendonitis statge three kidney disease, kidney stones, Last Myocardial Infarction Date:: UNKNOWN History of Any Multi-Drug Resistant Organisms: None Reported Past Surgical History: Appendectomy, Cardiac Ablation, Cholecystectomy, Heart Catheterization, Heart Catheterization With Stent, Hysterectomy Additional Past Surgical History / Comment(s): PARTIAL HYSTERECTOMY 03/18/14 @ [facility]. CATARACT BLACK. WITH IMPLANTS. HEART CATH X 3 TOTAL 3 STENTS, kidney stents. Past Anesthesia/Blood Transfusion Reactions: Motion Sickness Additional Past Anesthesia/Blood Transfusion Reaction / Comment(s): states needs general anesthesia, not IV sedation Date of Last Stent Placement:: UNKNOWN Past Psychological History: Depression Smoking Status: Former smoker Past Alcohol Use History: None Reported Past Drug Use History: None Reported - Past Family History Father Additional Family Medical History / Comment(s): "HARDENEING OF THE ARTERIES AT AGE 41. SMOKED AND DRANK ETOH Mother Family Medical History: Cancer Additional Family Medical History / Comment(s): STATES CA WAS ALL OVER- NOT SURE OF PRIMARY SITE General Exam Limitations: physical limitation General appearance: alert, in no apparent distress Head exam: Present: atraumatic, normocephalic Eye exam: Present: normal appearance, PERRL ENT exam: Present: normal exam Neck exam: Present: normal inspection. Absent: tenderness, meningismus Respiratory exam: Present: normal lung sounds bilaterally. Absent: respiratory distress, wheezes Cardiovascular Exam: Present: regular rate, normal rhythm GI/Abdominal exam: Present: soft, distended, tenderness (Left lower quadrant tenderness, no rebound or guarding) Extremities exam: Present: pedal edema Neurological exam: Present: alert, oriented X3. Absent: motor sensory deficit Skin exam: Present: warm, dry Course Vital Signs 09/03/17 09/03/17 06:20 06:33 Temperature 97.4 F L Pulse Rate 86 81 Respiratory 18 18 Rate Blood Pressure 171/83 160/63 O2 Sat by Pulse 97 98 Oximetry Medical Decision Making - Medical Decision Making 61-year-old female presenting with abdominal pain and no bowel movement for one week. Workup includes an x-ray of the abdomen shows bilateral renal calculi which is reduced and number from previously and a right ureteral stent. There is some moderate amount of retained stool consistent with her history of constipation. White blood cell count 7.6, hemoglobin is 8.3 which is improved from previous of 7.1. CMP unremarkable. Urinalysis which is from a cath specimen shows 27 rbc's and 50 white cells. Repeat culture is obtained and patient should continue her current antibiotic regimen. She is given an enema and magnesium citrate and does have improvement in her pain. She will be discharged on stool softeners and pain medication. She will be discharged to the senior living. - Lab Data Result diagrams: 09/03/17 06:30 09/03/17 06:30 Lab Results 09/03/17 09/03/17 09/03/17 Range/Units 06:30 06:30 06:44 WBC 7.6 (3.8-10.6) k/uL RBC 3.41 L (3.80-5.40) m/uL Hgb 8.3 L (11.4-16.0) gm/dL Hct 26.8 L (34.0-46.0) % MCV 78.8 L (80.0-100.0) fL MCH 24.5 L (25.0-35.0) pg MCHC 31.1 (31.0-37.0) g/dL RDW 18.3 H (11.5-15.5) % Plt Count 267 (150-450) k/uL Neutrophils % 72 % Lymphocytes % 14 % Monocytes % 7 % Eosinophils % 4 % Basophils % 1 % Neutrophils # 5.5 (1.3-7.7) k/uL Lymphocytes # 1.1 (1.0-4.8) k/uL Monocytes # 0.5 (0-1.0) k/uL Eosinophils # 0.3 (0-0.7) k/uL Basophils # 0.0 (0-0.2) k/uL Hypochromasia Moderate Anisocytosis Slight Microcytosis Slight Sodium 140 (137-145) mmol/L Potassium 4.1 (3.5-5.1) mmol/L Chloride 104 (98-107) mmol/L Carbon Dioxide 26 (22-30) mmol/L Anion Gap 10 mmol/L BUN 17 (7-17) mg/dL Creatinine 0.88 (0.52-1.04) mg/dL Est GFR (CKD-EPI)AfAm 82 (>60 ml/min/1.73 sqM) Est GFR (CKD-EPI)NonAf 71 (>60 ml/min/1.73 sqM) Glucose 117 H (74-99) mg/dL Calcium 9.0 (8.4-10.2) mg/dL Total Bilirubin 0.3 (0.2-1.3) mg/dL AST 28 (14-36) U/L ALT 28 (9-52) U/L Alkaline Phosphatase 87 (38-126) U/L Total Protein 5.8 L (6.3-8.2) g/dL Albumin 3.2 L (3.5-5.0) g/dL Amylase 46 (30-110) U/L Lipase 117 (23-300) U/L Urine Color Colorless Urine Appearance Clear (Clear) Urine pH 6.5 (5.0-8.0) Ur Specific [place] 1.004 (1.001-1.035) Urine Protein Negative (Negative) Urine Glucose (UA) Negative (Negative) Urine Ketones Negative (Negative) Urine Blood Moderate H (Negative) Urine Nitrite Negative (Negative) Urine Bilirubin Negative (Negative) Urine Urobilinogen <2.0 (<2.0) mg/dL Ur Leukocyte Esterase Large H (Negative) Urine RBC 27 H (0-5) /hpf Urine WBC 50 H (0-5) /hpf Urine WBC Clumps Few H (None) /hpf Ur Squamous Epith Cells <1 (0-4) /hpf Urine Bacteria Occasional H (None) /hpf Urine Mucus Rare H (None) /hpf Disposition Clinical Impression: Abdominal pain, Constipation Disposition: HOME SELF-CARE Condition: Fair Instructions: Abdominal Pain (ED), Constipation (ED) Prescriptions: ALPRAZolam [Xanax] 0.25 mg PO TID PRN 3 Days #9 tab PRN Reason: Anxiety Docusate [Colace] 100 mg PO BID #60 capsule HYDROcodone/APAP 5-325MG [[place] 5-325] 1 tab PO Q6HR PRN #12 tab PRN Reason: Pain Is patient prescribed a controlled substance at d/c from ED?: Yes When asked, does pt state using other controlled substances?: Yes If prescribed controlled substance>3 days was MAPS reviewed?: Prescribed <3 Days If opioid is for acute pain is fill amount 7 days or less?: No Referrals: Lor Deluca MD [Primary Care Provider] - 1-2 days Time of Disposition: 09:05
[2017-09-03] MEDS ORDERED: HYDROcodone/APAP 5-325MG 1 EACH TAB PO STA (10:53)
[2017-09-03 11:03] VITALS: BP 161/74; PULSE 87; TEMP 98.4
== END 2017-09-03 11:11 | disposition home or self-care (01) ==
LOC: EC 06:15
DX: K59.00 Constipation, unspecified (principal); R10.32 Left lower quadrant pain; N20.0 Calculus of kidney; Z87.442 Personal history of urinary calculi; I48.91 Unspecified atrial fibrillation; J45.909 Unspecified asthma, uncomplicated; I25.10 Atherosclerotic heart disease of native coronary artery without angina pectoris; M79.7 Fibromyalgia; E07.9 Disorder of thyroid, unspecified; E78.5 Hyperlipidemia, unspecified; I25.2 Old myocardial infarction; E11.22 Type 2 diabetes mellitus with diabetic chronic kidney disease; I13.0 Hypertensive heart and chronic kidney disease with heart failure and stage 1 through stage 4 chronic kidney disease, or unspecified chronic kidney disease; N18.3 Chronic kidney disease, stage 3 (moderate); D64.9 Anemia, unspecified; I50.9 Heart failure, unspecified; F32.9 Major depressive disorder, single episode, unspecified; E11.40 Type 2 diabetes mellitus with diabetic neuropathy, unspecified; Z86.73 Personal history of transient ischemic attack (TIA), and cerebral infarction without residual deficits; Z86.711 Personal history of pulmonary embolism; Z86.718 Personal history of other venous thrombosis and embolism; Z87.891 Personal history of nicotine dependence; Z79.82 Long term (current) use of aspirin; Z79.01 Long term (current) use of anticoagulants; Z79.84 Long term (current) use of oral hypoglycemic drugs; Z79.899 Other long term (current) drug therapy; Z91.040 Latex allergy status; Z91.011 Allergy to milk products; Z88.1 Allergy status to other antibiotic agents; Z88.6 Allergy status to analgesic agent; Z91.048 Other nonmedicinal substance allergy status; Z90.49 Acquired absence of other specified parts of digestive tract; Z95.1 Presence of aortocoronary bypass graft; Z53.8 Procedure and treatment not carried out for other reasons
CPT/HCPCS: 36415; 93005; 80053; 82150; 83690; 85025; 81001; 87040; 87086; 74018; 99285; 96374; J2270

== ENCOUNTER → 2017-11-28 | Outpatient (CLI) | payer MEDICARE, BC ==
[~2017-11-28] MED LIST: SODIUM CHLORIDE 0.9% 500 ML in EMPTY BAG 1 BAG IV PRN; SODIUM FERRIC GLUCONAT-SUCROSE 125 MG in SODIUM CHLORIDE 0.9% 100 ML IVPB NR; SODIUM FERRIC GLUCONAT-SUCROSE 125 MG in SODIUM CHLORIDE 0.9% 100 ML IVPB ONE
[2017-11-28 12:13] VITALS: BP 145/84; PULSE 74; RESP 16; TEMP 97.9
== END | disposition home or self-care (01) ==
LOC: PROCWHC3 11:46
PROVIDERS: ATTEND Family Medicine
DX: D50.9 Iron deficiency anemia, unspecified (principal)
CPT/HCPCS: 96365; J2916

== ENCOUNTER → 2017-12-25 | Outpatient (CLI) | payer MEDICARE, BC ==
--- NOTE | 2017-12-26 07:04 | US ---
EXAMINATION TYPE: US kidneys/renal and bladder DATE OF EXAM: 12/25/2017 COMPARISON: CT 2018 CLINICAL HISTORY: N39.0 Urinary tract infection. Extremely large body habitus, pt scanned semi erect because she cant breathe very well lying down she sleeps upright in her chair EXAM MEASUREMENTS: Right Kidney: 8.4 x 3.8 x 4.7 cm Left Kidney: 7.7 x 4.5 x 4.2 cm Post Void Residual Volume: 15 mL Right Kidney: cyst upper pole 2.1 x 1.7 x 2.4 cm Left Kidney: No hydronephrosis or masses seen Bladder: wnl not able to fill well pt has incontinence Bilateral Jets seen: Yes Normal Post Void Residual: Yes There is no evidence for hydronephrosis at this point in time. No nephrolithiasis is seen. No solid masses are identified. The urinary bladder is anechoic. Bilateral ureteral jets are seen. IMPRESSION: Simple appearing cyst upper pole right kidney.
== END ==
LOC: RADUSWWP 15:29
PROVIDERS: ATTEND Family Medicine
DX: N28.1 Cyst of kidney, acquired (principal)
CPT/HCPCS: 76770

== ENCOUNTER → 2018-01-27 | Outpatient (CLI) | payer MEDICARE, BC ==
[2018-01-27 14:30] LABS: Anisocytosis Slight; Basophils % (A) 0 %; Eosinophils # (A) 0.3 k/uL (0-0.7); Eosinophils % (A) 3 %; HCT 26.6 % (34.0-46.0); HGB 8.1 gm/dL (11.4-16.0); Hypochromasia Marked; Lymphocytes # (A) 1.8 k/uL (1.0-4.8); Lymphocytes % (A) 20 %; MCH 25.2 pg (25.0-35.0); MCHC 30.6 g/dL (31.0-37.0); MCV 82.3 fL (80.0-100.0); Mean Platelet Volume 6.6; Monocytes # (A) 0.4 k/uL (0-1.0); Monocytes % (A) 5 %; Neutrophils # (A) 6.5 k/uL (1.3-7.7); Neutrophils % (A) 70 %; Platelet Count 305 k/uL (150-450); RBC 3.23 m/uL (3.80-5.40); RDW 17.5 % (11.5-15.5); WBC 9.2 k/uL (3.8-10.6)
[2018-01-27 14:35] LABS: Appearance,Urine Cloudy (Clear); Bacteria,Urine Occasional /hpf; Bilirubin,Urine Negative (Negative); Blood,Urine Moderate (Negative); Budding Yeast,Urine Moderate /hpf; Color,Urine Yellow; Glucose,Urine (UA) Negative (Negative); Ketones,Urine Negative (Negative); Leukocyte Esterase,Urine Large (Negative); Nitrite,Urine Positive (Negative); Protein,Urine Trace (Negative); RBC,Urine 139 /hpf (0-5); Specific Gravity,Urine 1.011 (1.001-1.035); Urobilinogen,Urine <2.0 mg/dL (<2.0); WBC,Urine >182 /hpf (0-5)
[2018-01-27 14:37] LABS: Calcium 9.3 mg/dL (8.4-10.2); Potassium 4.5 mmol/L (3.5-5.1)
== END | disposition home or self-care (01) ==
LOC: LABPAT 13:23
PROVIDERS: ATTEND Urology
DX: Z01.812 Encounter for preprocedural laboratory examination (principal); N20.1 Calculus of ureter; E11.9 Type 2 diabetes mellitus without complications; R31.29 Other microscopic hematuria; I10 Essential (primary) hypertension; R35.0 Frequency of micturition; Z79.899 Other long term (current) drug therapy
CPT/HCPCS: 36415; 80048; 81001; 83540; 83550; 85025; 87077; 87086; 87186

== ENCOUNTER → 2018-01-27 | Outpatient (CLI) | payer MEDICARE, BC ==
[2018-01-27 18:59] LABS: Iron Saturation 6.81 (12.00-45.00)
== END | disposition home or self-care (01) ==
LOC: LABWHC1 13:26
PROVIDERS: ATTEND Family Medicine
DX: I12.9 Hypertensive chronic kidney disease with stage 1 through stage 4 chronic kidney disease, or unspecified chronic kidney disease (principal); N18.2 Chronic kidney disease, stage 2 (mild)
CPT/HCPCS: 36415; 83540; 83550

== ENCOUNTER 2018-01-28 05:59 | Day surgery (SDC) | payer MEDICARE, BC ==
[2018-01-21 09:46] VITALS: BMI 48.4
--- NOTE | 2018-01-27 14:14 | P.GSHP ---
History of Present Illness H&P Date: 01/27/18 62 yo female with a 12 mm stone in the right upj with a stent who comes for right ureteroscopy stent and stone removal The risk comlications and alternatives have been discussed - Constitutional Constitutional: Reports fatigue, Reports lethargy - Cardiovascular Cardiovascular: Reports decreased exercise tolerance, Reports dyspnea on exertion - Genitourinary (Female) Genitourinary: Reports as per HPI Past Medical History Past Medical History: Atrial Fibrillation, Asthma, Coronary Artery Disease (CAD) , Heart Failure, CVA/TIA, Diabetes Mellitus, Deep Vein Thrombosis (DVT), Fibromyalgia, Hyperlipidemia, Hypertension, Myocardial Infarction ([place]), Osteoarthritis (OA), Pulmonary Embolus (PE), Skin Disorder, Thyroid Disorder Additional Past Medical History / Comment(s): kidney stones,breakdown on buttocks,pain below rt breast,hx rt side dominant,BOTTOM 1/3 HEART DAMAGED- HEART MURMUR,cardiomyopathy,pt states "mult mi's, CHRONIC CONSTIPATION, ECZEMA- SKIN VERY DRY,SINUS HEADACHES, HX ANEMIA, HYST in 2013-was told cancer, gout. stage III kidney disease, past kidneys tone,steroids Dec 2017,uses a cane- unable to stand for more than 3-5 minutes reg to lower back pain. 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.FEET- NUMBNESS IF STANDS FOR MORE THAN 5, MINUTES,STROKE @ AGE 39-MILD weakness LT SIDE uses cane when up-AFFECTED FACE-LT EYELID, neuropathy, lt hand tendonitis,stg three kidney disease, kidney stones, mult cva-left side weakness, eye disorder fuchs corneal dystrophy Last Myocardial Infarction Date:: UNKNOWN History of Any Multi-Drug Resistant Organisms: None Reported Past Surgical History: Appendectomy, Cardiac Ablation, Cholecystectomy, Heart Catheterization, Heart Catheterization With Stent, Hysterectomy Additional Past Surgical History / Comment(s): PARTIAL HYSTERECTOMY 03/18/14 @ [facility]. CATARACT BLACK. WITH IMPLANTS. HEART CATH X 3 TOTAL 3 STENTS, kidney stents. Past Anesthesia/Blood Transfusion Reactions: Motion Sickness Additional Past Anesthesia/Blood Transfusion Reaction / Comment(s): no hx blood transfusion Date of Last Stent Placement:: UNKNOWN Smoking Status: Former smoker - Past Family History Father Additional Family Medical History / Comment(s): "HARDENEING OF THE ARTERIES AT AGE 41. SMOKED AND DRANK ETOH Mother Family Medical History: Cancer Additional Family Medical History / Comment(s): "cyst that ruptured between bowel and bladder" Medications and Allergies Home Medications Medication Instructions Recorded Confirmed Type Isosorbide Mononitrate ER [Imdur] 30 mg PO DAILY@0800 05/12/14 01/21/18 History Cyanocobalamin [Vitamin B-12] 1,000 mcg PO DAILY@1700 02/17/15 01/21/18 History Nitroglycerin Sl Tabs [Nitrostat] 0.4 mg SUBLINGUAL Q5M PRN tab 01/14/17 Rx Famotidine [Pepcid] 20 mg PO BID PRN 08/28/17 01/21/18 History Ferrous Sulfate [Iron (65 MG 325 mg PO BID@0800,1700 08/28/17 01/21/18 History Elemental)] Furosemide [Lasix] 40 mg PO DAILY@0600 08/28/17 01/21/18 History Glimepiride [Amaryl] 1 mg PO AC-BID 08/28/17 01/21/18 History Ipratropium-Albuterol Nebulize 3 ml INHALATION RT-QID PRN 08/28/17 01/21/18 History [Duoneb 0.5 mg-3 mg/3 ml Soln] Levothyroxine Sodium [Synthroid] 112 mcg PO DAILY@0600 08/28/17 01/21/18 History Montelukast [Singulair] 10 mg PO HS@2100 08/28/17 01/21/18 History Sodium Chloride 5% Ophth Soln 1 drops BOTH EYES DAILY PRN 08/28/17 01/21/18 History [Trini 128] Spironolactone [Aldactone] 25 mg PO DAILY@0800 08/28/17 01/21/18 History HYDROcodone/APAP 5-325MG [[place] 1 tab PO Q6HR PRN #12 tab 09/03/17 01/21/18 Rx 5-325] Metoprolol Tartrate [Lopressor] 25 mg PO BID@0800,1700 09/03/17 01/21/18 History Rivaroxaban [Xarelto] 20 mg PO DAILY@0800 09/03/17 01/21/18 History ALPRAZolam [Xanax] 0.5 mg PO BID PRN 01/21/18 01/21/18 History Ascorbic Acid [Vitamin C] 1,000 mg PO DAILY PRN 01/21/18 01/21/18 History Budesonide [Pulmicort] 0.5 mg INHALATION BID PRN 01/21/18 01/21/18 History Cetirizine HCl [Zyrtec] 10 mg PO DAILY 01/21/18 01/21/18 History Cholecalciferol [Vitamin D3] 2,000 unit PO DAILY 01/21/18 01/21/18 History Clopidogrel Bisulfate [Plavix] 75 mg PO DAILY 01/21/18 01/21/18 History Cyclobenzaprine [Flexeril] 5 mg PO BID PRN 01/21/18 01/21/18 History Docusate [Colace] 100 mg PO BID PRN 01/21/18 01/21/18 History Fluticasone Nasal [place] [Flonase 2 spr EA NOSTRIL BID 01/21/18 01/21/18 History Nasal [place]] Lisinopril [Zestril] 10 mg PO DAILY 01/21/18 01/21/18 History Meloxicam 15 mg PO DAILY 01/21/18 01/21/18 History Nitrofurantoin Macrocrystal 100 mg PO DAILY 01/21/18 01/21/18 History [Macrodantin] Allergies Allergy/AdvReac Type Severity Reaction Status Date / Time latex Allergy Rash/Hives Verified 01/21/18 08:58 Milk Containing Products AdvReac THRUSH Verified 01/21/18 08:58 [Dairy] Tetracyclines AdvReac YEAST Verified 01/21/18 08:58 INFECTION- PREFERS NOT TO TAKE ENVIRONMENTAL ALLERGIES Allergy SINUS Uncoded 01/21/18 08:58 SYMPTOMS-GRASS TREES,DUST,POLLENS,MOLD Surgical - Exam - General well developed, well nourished, obese - ENT no hearing loss - Neck trachea midline - Respiratory normal expansion, normal respiratory effort - Cardiovascular Rhythm: irregularly irregular - Abdomen Abdomen: soft, non tender - Neurologic normal coordination, normal sensation - Musculoskeletal normal posture - Psychiatric oriented to time, oriented to person, oriented to place, speech is normal, memory intact Assessment and Plan Assessment: Impression: RIght ureteral stone with stent. Multiple medical and cardiac illnesses. Plan: cysto, right ureteroscopy with laser lithotripsy. stent removal
[~2018-01-28 05:59] MED LIST changes: +DEXAMETHASONE SOD PHOSPHATE 10 MG/ML 1 ML VIAL IV ONE; +GENTAMICIN 120 MG in SODIUM CHLORIDE 0.9% 100 ML IVPB ONE; +HYDROmorphone 0.5 MG/0.5 ML SYRINGE IVP PRN; +LACTATED RINGERS 1,000 ML IV SCH; +LIDOCAINE 1% 20 ML VIAL (10MG/ML) FOR IV START INTRADERMA PRN; +MIDAZOLAM 2 MG/2 ML VIAL IV PRN; +ONDANSETRON 4 MG/2 ML VIAL IVP ONE; +SCOPOLAMINE 1.5MG/72HR PATCH TRANSDERM ONE; -SODIUM CHLORIDE 0.9% 500 ML in EMPTY BAG 1 BAG IV PRN; -SODIUM FERRIC GLUCONAT-SUCROSE 125 MG in SODIUM CHLORIDE 0.9% 100 ML IVPB NR; -SODIUM FERRIC GLUCONAT-SUCROSE 125 MG in SODIUM CHLORIDE 0.9% 100 ML IVPB ONE
[2018-01-28 06:52] VITALS: TEMP 97.2
[2018-01-28 06:52] LABS: Glucose,Whole Blood 187 mg/dL (75-99)
--- NOTE | 2018-01-28 07:19 | XR ---
Abdomen HISTORY: Kidney stone Frontal view of the abdomen on 2 images correlated to prior abdomen 09/03/2017 Double-J right ureteral stent is in place. Surgical clips present in the abdomen. Calcification is pr esent at the level of the proximal coil of the ureteral stent and measures 13 mm. Calcifications are also noted within the pelvis which may be vascular. Probable injection granuloma right gluteal region . Degenerative disc changes are noted in the visualized spine. IMPRESSION: Right-sided nephrolithiasis. Postop changes. Additional findings above.
[2018-01-28] MEDS ORDERED: MIDAZOLAM 2 MG/2 ML VIAL ONE (07:30)
[2018-01-28] MEDS ORDERED: SUCCINYLCHOLINE CHLORIDE VIAL 200 MG/10 ML VIAL IV ONE (07:30)
[2018-01-28] MEDS ORDERED: PROPOFOL 10 MG/ML 20 ML VIAL IV ONE (07:30)
[2018-01-28] MEDS ORDERED: PHENYLEPHRINE-0.9% NACL SYG 1 MG/10 ML SYRINGE ONE (07:30)
[2018-01-28] MEDS ORDERED: fentaNYL (PF) 50 MCG/ML 2 ML AMP ONE (07:30)
[2018-01-28] MEDS ORDERED: LIDOCAINE 1% INJ 10MG/ML (20 ML MDV) ONE (07:30)
[2018-01-28] MEDS ORDERED: LACTATED RINGERS 1,000 ML IV ONE (08:55)
--- NOTE | 2018-01-28 08:58 | P.OP ---
Date of Procedure: 01/28/18 Preoperative Diagnosis: Right ureteral calculus Postoperative Diagnosis: Same Procedure(s) Performed: Cystoscopy, removal double-J catheter right, right ureteroscopy laser lithotripsy, stone basketing Anesthesia: PJ Surgeon: Edwar You Pathology: other (Stone) Condition: stable Disposition: PACU Indications for Procedure: The patient is a 62-year-old unhealthy morbidly obese female with kidney stones. She had a 12 mm stone drop in her proximal ureter several months ago. She required a stent. She had a slow recuperation couldn't cardiac issues. She now comes for formal stent and stone removal Description of Procedure: The patient is brought to the operating suite. She is given a successful general endotracheal anesthesia. She's placed lithotomy position with a sterile prep and drape. The bladder is intubated with a 22-Swiss scope. The right double-J catheters identified and encrusted. His pulled to the urethral meatus. I'm unable to successfully manipulate an 035 wire through the stent. I then pass a semirigid ureteroscope up to the ureteral orifice remove the stent passed the ureteroscope into the ureter. Through the scope I passed 35 wire that coils in the right renal pelvis. Over the wires passed a 12-14- Swiss reentry sheath. The inner sheath was removed. Through the sheath and passed the flexible ureteroscope up into the renal pelvis where the stone was identified. With the 200 laser probe and between 4 and 6 W of energy the stone was broken into tiny fragments up. I then basket the larger fragments. I reinspected the pelvis or no remaining significant fragments. I elect to remove the double-J catheter. The sheath is removed wires removed. The bladder strain. The patient is awakened and returned recovery in good condition. She tolerated procedure well. Blood loss is minimal.
[2018-01-28 09:18] LABS: Glucose,Whole Blood 192 mg/dL (75-99)
[2018-01-28 10:19] VITALS: BP 122/81
[2018-01-28 11:00] VITALS: PULSE 69; RESP 18
--- NOTE | 2018-01-28 14:01 | FL ---
Fluoroscopy HISTORY: Lithotripsy 10 seconds fluoroscopy time supplied to the referring clinician. 2 intraoperative C-arm images docum ent the procedure. See dictated report from urology.
== END 2018-01-28 11:12 | disposition home or self-care (01) ==
LOC: OR 05:59
PROVIDERS: ATTEND Urology
DX: N20.1 Calculus of ureter (principal); E66.01 Morbid (severe) obesity due to excess calories; I48.91 Unspecified atrial fibrillation; I25.10 Atherosclerotic heart disease of native coronary artery without angina pectoris; E11.42 Type 2 diabetes mellitus with diabetic polyneuropathy; I69.954 Hemiplegia and hemiparesis following unspecified cerebrovascular disease affecting left non-dominant side; M79.7 Fibromyalgia; M19.90 Unspecified osteoarthritis, unspecified site; E07.9 Disorder of thyroid, unspecified; N28.9 Disorder of kidney and ureter, unspecified; J44.9 Chronic obstructive pulmonary disease, unspecified; E78.5 Hyperlipidemia, unspecified; Z79.1 Long term (current) use of non-steroidal anti-inflammatories (NSAID); Z79.02 Long term (current) use of antithrombotics/antiplatelets; Z79.01 Long term (current) use of anticoagulants; Z79.890 Hormone replacement therapy; Z79.899 Other long term (current) drug therapy; Z86.711 Personal history of pulmonary embolism; Z88.1 Allergy status to other antibiotic agents; Z91.040 Latex allergy status; Z91.011 Allergy to milk products; Z91.09 Other allergy status, other than to drugs and biological substances; Z87.891 Personal history of nicotine dependence; Z79.84 Long term (current) use of oral hypoglycemic drugs; Z86.718 Personal history of other venous thrombosis and embolism; Z68.42 Body mass index [BMI] 45.0-49.9, adult; Z87.442 Personal history of urinary calculi
CPT/HCPCS: 82365; 74018; 52353; C1769; J2250; J0330; J1100; J2405; J2001; J3010; J1580; J2370; J2704

== ENCOUNTER 2018-02-25 08:42 | Inpatient (IN) | payer MEDICARE, BC ==
[2018-02-25] MEDS ORDERED: ASPIRIN 81 MG PO STA (08:59)
[2018-02-25] MEDS ORDERED: NITROGLYCERIN OINT 1 INCH/GM PACKET TOPICAL STA (08:59)
--- NOTE | 2018-02-25 09:02 | ED ---
General Adult HPI - General Chief complaint: Chest Pain Stated complaint: Chest pain Time Seen by Provider: 02/25/18 08:45 Source: patient, RN notes reviewed Mode of arrival: EMS Limitations: no limitations - History of Present Illness Initial comments: This is a 62-year-old female who presents emergency Department with a past medical history significant for multiple heart attacks according to the patient. Patient states she is a diabetic for high blood pressure. Patient states she she has been having intermittent chest pain for the last couple of months she's been taking some any nitro that she is out of her nitro. Patient states this morning 4:00 she started having chest pain radiated to her left arm she was short of breath and she took nitroglycerin took the pain away however an hour later the pain came back and it was more significant and she decided to come to the emergency department. Patient denies any recent fever chills or cough. Patient denies any recent injury or trauma. Patient denies abdominal pain patient denies vomiting but she states she was indeed nauseated. He denies any headache patient denies lightheadedness dizziness or near syncopal episode. I will patient is on Xarelto. - Related Data Home Medications Medication Instructions Recorded Confirmed Isosorbide Mononitrate ER [Imdur] 30 mg PO DAILY@0800 05/12/14 02/25/18 Famotidine [Pepcid] 20 mg PO BID 08/28/17 02/25/18 Ferrous Sulfate [Iron (65 MG 325 mg PO BID@0800,1700 08/28/17 02/25/18 Elemental)] Furosemide [Lasix] 40 mg PO DAILY@0600 08/28/17 02/25/18 Glimepiride [Amaryl] 1 mg PO AC-BID 08/28/17 02/25/18 Ipratropium-Albuterol Nebulize 3 ml INHALATION RT-QID PRN 08/28/17 02/25/18 [Duoneb 0.5 mg-3 mg/3 ml Soln] Levothyroxine Sodium [Synthroid] 112 mcg PO DAILY@0600 08/28/17 02/25/18 Montelukast [Singulair] 10 mg PO HS@2100 08/28/17 02/25/18 Spironolactone [Aldactone] 25 mg PO DAILY@0800 08/28/17 02/25/18 Rivaroxaban [Xarelto] 20 mg PO W/SUPPER 09/03/17 02/25/18 ALPRAZolam [Xanax] 0.25 mg PO TID PRN 01/21/18 02/25/18 Budesonide [Pulmicort] 0.5 mg INHALATION RT-BID PRN 01/21/18 02/25/18 Cetirizine HCl [Zyrtec] 10 mg PO DAILY 01/21/18 02/25/18 Clopidogrel Bisulfate [Plavix] 75 mg PO DAILY 01/21/18 02/25/18 Cyclobenzaprine [Flexeril] 5 mg PO BID PRN 01/21/18 02/25/18 Docusate [Colace] 100 mg PO BID PRN 01/21/18 02/25/18 Fluticasone Nasal [place] [Flonase 2 spr EA NOSTRIL BID PRN 01/21/18 02/25/18 Nasal [place]] Meloxicam 15 mg PO DAILY 01/21/18 02/25/18 Nitrofurantoin Macrocrystal 100 mg PO DAILY 01/21/18 02/25/18 [Macrodantin] Lisinopril [Zestril] 10 mg PO DAILY 02/25/18 02/25/18 Loratadine [Claritin] 10 mg PO DAILY PRN 02/25/18 02/25/18 Metoprolol Tartrate [Lopressor] 25 mg PO BID 02/25/18 02/25/18 Previous Rx's Medication Instructions Recorded Nitroglycerin Sl Tabs [Nitrostat] 0.4 mg SUBLINGUAL Q5M PRN tab 01/14/17 Allergies Allergy/AdvReac Type Severity Reaction Status Date / Time latex Allergy Rash/Hives Verified 02/25/18 09:51 Milk Containing Products AdvReac THRUSH Verified 02/25/18 09:51 [Dairy] Tetracyclines AdvReac YEAST Verified 02/25/18 09:51 INFECTION- PREFERS NOT TO TAKE ENVIRONMENTAL ALLERGIES Allergy SINUS Uncoded 02/25/18 08:47 SYMPTOMS-GRASS TREES,DUST,POLLENS,MOLD Review of Systems ROS Statement: Those systems with pertinent positive or pertinent negative responses have been documented in the HPI. ROS Other: All systems not noted in ROS Statement are negative. Past Medical History Past Medical History: Atrial Fibrillation, Asthma, Coronary Artery Disease (CAD) , Heart Failure, CVA/TIA, Diabetes Mellitus, Deep Vein Thrombosis (DVT), Fibromyalgia, Hyperlipidemia, Hypertension, Myocardial Infarction ([place]), Osteoarthritis (OA), Pulmonary Embolus (PE), Skin Disorder, Thyroid Disorder Additional Past Medical History / Comment(s): kidney stones,breakdown on buttocks,pain below rt breast,hx rt side dominant,BOTTOM 1/3 HEART DAMAGED- HEART MURMUR,cardiomyopathy,pt states "mult mi's, CHRONIC CONSTIPATION, ECZEMA- SKIN VERY DRY,SINUS HEADACHES, HX ANEMIA, HYST in 2013-was told cancer, gout. stage III kidney disease, past kidneys tone,steroids Dec 2017,uses a cane- unable to stand for more than 3-5 minutes reg to lower back pain. 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.FEET- NUMBNESS IF STANDS FOR MORE THAN 5, MINUTES,STROKE @ AGE 39-MILD weakness LT SIDE uses cane when up-AFFECTED FACE-LT EYELID, neuropathy, lt hand tendonitis,stg three kidney disease, kidney stones, mult cva-left side weakness, eye disorder fuchs corneal dystrophy Last Myocardial Infarction Date:: UNKNOWN History of Any Multi-Drug Resistant Organisms: None Reported Past Surgical History: Appendectomy, Cardiac Ablation, Cholecystectomy, Heart Catheterization, Heart Catheterization With Stent, Hysterectomy Additional Past Surgical History / Comment(s): PARTIAL HYSTERECTOMY 03/18/14 @ [facility]. CATARACT BLACK. WITH IMPLANTS. HEART CATH X 3 TOTAL 3 STENTS, kidney stents. Past Anesthesia/Blood Transfusion Reactions: Motion Sickness Additional Past Anesthesia/Blood Transfusion Reaction / Comment(s): no hx blood transfusion Date of Last Stent Placement:: UNKNOWN Past Psychological History: Depression Smoking Status: Former smoker - Past Family History Father Additional Family Medical History / Comment(s): "HARDENEING OF THE ARTERIES AT AGE 41. SMOKED AND DRANK ETOH Mother Family Medical History: Cancer Additional Family Medical History / Comment(s): "cyst that ruptured between bowel and bladder" General Exam - General Exam Comments Initial Comments: GENERAL: Patient is well-developed and well-nourished. Patient is nontoxic and well- hydrated and is in mild distress. ENT: Neck is soft and supple. No significant lymphadenopathy is noted. Oropharynx is clear. Moist mucous membranes. Neck has full range of motion without eliciting any pain. EYES: The sclera were anicteric and conjunctiva were pink and moist. Extraocular movements were intact and pupils were equal round and reactive to light. Eyelids were unremarkable. PULMONARY: Unlabored respirations. Good breath sounds bilaterally. No audible rales rhonchi or wheezing was noted. CARDIOVASCULAR: There is a regular rate and rhythm without any murmurs gallops or rubs. ABDOMEN: Soft and nontender with normal bowel sounds. No palpable organomegaly was noted. There is no palpable pulsatile mass. SKIN: Skin is clear with no lesions or rashes and otherwise unremarkable. NEUROLOGIC: Patient is alert and oriented x3. Cranial nerves II through XII are grossly intact. Motor and sensory are also intact. Normal speech, volume and content. Symmetrical smile. MUSCULOSKELETAL: Normal extremities with adequate strength and full range of motion. No lower extremity swelling or edema. LYMPHATICS: No significant lymphadenopathy is noted PSYCHIATRIC: Normal psychiatric evaluation. Limitations: no limitations Course Vital Signs 02/25/18 02/25/18 08:43 10:39 Temperature 98.2 F Pulse Rate 107 H 98 Respiratory 18 18 Rate Blood Pressure 127/72 127/72 O2 Sat by Pulse 100 97 Oximetry Medical Decision Making - Medical Decision Making EKG shows sinus tachycardia at 106 bpm ND interval 280 QRS is 92 QT interval 350 QTC is 464. Patient's EKG shows no ST segment elevation or depression or T wave abnormalities are noted. - Lab Data Result diagrams: 02/25/18 11:36 02/25/18 11:36 Lab Results 02/25/18 02/25/18 02/25/18 Range/Units 11:36 11:36 11:36 WBC 9.4 (3.8-10.6) k/uL RBC 1.96 L (3.80-5.40) m/uL Hgb 4.8 L* D (11.4-16.0) gm/dL Hct 16.5 L* (34.0-46.0) % MCV 84.3 (80.0-100.0) fL MCH 24.5 L (25.0-35.0) pg MCHC 29.0 L (31.0-37.0) g/dL RDW 17.2 H (11.5-15.5) % Plt Count 235 (150-450) k/uL Neutrophils % 83 % Lymphocytes % 11 % Monocytes % 3 % Eosinophils % 2 % Basophils % 0 % Neutrophils # 7.8 H (1.3-7.7) k/uL Lymphocytes # 1.0 (1.0-4.8) k/uL Monocytes # 0.3 (0-1.0) k/uL Eosinophils # 0.1 (0-0.7) k/uL Basophils # 0.0 (0-0.2) k/uL Hypochromasia Marked Poikilocytosis Slight Anisocytosis Slight PT (9.0-12.0) sec INR (<1.2) APTT (22.0-30.0) sec Sodium 140 (137-145) mmol/L Potassium 5.1 (3.5-5.1) mmol/L Chloride 108 H (98-107) mmol/L Carbon Dioxide 24 (22-30) mmol/L Anion Gap 8 mmol/L BUN 33 H (7-17) mg/dL Creatinine 1.17 H (0.52-1.04) mg/dL Est GFR (CKD-EPI)AfAm 57 (>60 ml/min/1.73 sqM) Est GFR (CKD-EPI)NonAf 50 (>60 ml/min/1.73 sqM) Glucose 136 H (74-99) mg/dL Calcium 8.7 (8.4-10.2) mg/dL Magnesium 2.2 (1.6-2.3) mg/dL Total Bilirubin 0.2 (0.2-1.3) mg/dL AST 14 (14-36) U/L ALT 14 (9-52) U/L Alkaline Phosphatase 100 (38-126) U/L Total Creatine Kinase 35 (30-135) U/L Total Protein 5.9 L (6.3-8.2) g/dL Albumin 3.2 L (3.5-5.0) g/dL 02/25/18 Range/Units 12:02 WBC (3.8-10.6) k/uL RBC (3.80-5.40) m/uL Hgb (11.4-16.0) gm/dL Hct (34.0-46.0) % MCV (80.0-100.0) fL MCH (25.0-35.0) pg MCHC (31.0-37.0) g/dL RDW (11.5-15.5) % Plt Count (150-450) k/uL Neutrophils % % Lymphocytes % % Monocytes % % Eosinophils % % Basophils % % Neutrophils # (1.3-7.7) k/uL Lymphocytes # (1.0-4.8) k/uL Monocytes # (0-1.0) k/uL Eosinophils # (0-0.7) k/uL Basophils # (0-0.2) k/uL Hypochromasia Poikilocytosis Anisocytosis PT 10.7 (9.0-12.0) sec INR 1.1 (<1.2) APTT 22.7 (22.0-30.0) sec Sodium (137-145) mmol/L Potassium (3.5-5.1) mmol/L Chloride (98-107) mmol/L Carbon Dioxide (22-30) mmol/L Anion Gap mmol/L BUN (7-17) mg/dL Creatinine (0.52-1.04) mg/dL Est GFR (CKD-EPI)AfAm (>60 ml/min/1.73 sqM) Est GFR (CKD-EPI)NonAf (>60 ml/min/1.73 sqM) Glucose (74-99) mg/dL Calcium (8.4-10.2) mg/dL Magnesium (1.6-2.3) mg/dL Total Bilirubin (0.2-1.3) mg/dL AST (14-36) U/L ALT (9-52) U/L Alkaline Phosphatase (38-126) U/L Total Creatine Kinase (30-135) U/L Total Protein (6.3-8.2) g/dL Albumin (3.5-5.0) g/dL Disposition Referrals: Lor Deluca MD [Primary Care Provider] - 1-2 days
--- NOTE | 2018-02-25 11:33 | XR ---
EXAMINATION TYPE: XR chest 2V DATE OF EXAM: 02/25/2018 COMPARISON: 08/29/2017 HISTORY: 62-year-old female with chest pain TECHNIQUE: AP and lateral views FINDINGS: Moderate cardiomegaly persists. Mild diffuse interstitial prominence. Coronary vessel calcifications or coronary vessel stent is noted. Stable hazy density along the right heart margin compatible with p rominent epicardial fat pad. No consolidation or pleural effusion seen. IMPRESSION: Stable moderate cardiomegaly and chronic changes. No acute process seen.
[2018-02-25 12:21] LABS: Albumin 3.2 g/dL (3.5-5.0); Calcium 8.7 mg/dL (8.4-10.2); Magnesium 2.2 mg/dL (1.6-2.3); Potassium 5.1 mmol/L (3.5-5.1); Total Bilirubin 0.2 mg/dL (0.2-1.3); Total Protein 5.9 g/dL (6.3-8.2)
[2018-02-25 12:33] LABS: INR 1.1 (<1.2); Partial Thromboplastin Time 22.7 sec (22.0-30.0); Prothrombin Time 10.7 sec (9.0-12.0)
[2018-02-25 12:36] LABS: Anisocytosis Slight; Basophils % (A) 0 %; Eosinophils # (A) 0.1 k/uL (0-0.7); Eosinophils % (A) 2 %; Hypochromasia Marked; Lymphocytes % (A) 11 %; MCH 24.5 pg (25.0-35.0); MCV 84.3 fL (80.0-100.0); Mean Platelet Volume 6.5; Monocytes # (A) 0.3 k/uL (0-1.0); Monocytes % (A) 3 %; Neutrophils # (A) 7.8 k/uL (1.3-7.7); Neutrophils % (A) 83 %; Platelet Count 235 k/uL (150-450); Poikilocytosis Slight; RBC 1.96 m/uL (3.80-5.40); RDW 17.2 % (11.5-15.5); WBC 9.4 k/uL (3.8-10.6)
[2018-02-25 12:41] LABS: HCT 16.5 % (34.0-46.0); HGB 4.8 gm/dL (11.4-16.0)
[2018-02-25 12:53] LABS: Creatine Kinase MB 1.6 ng/mL (0.0-2.4)
[2018-02-25 12:59] LABS: Troponin I 0.125 ng/mL (0.000-0.034)
[2018-02-25] MEDS ORDERED: NITROGLYCERIN SL TABS 0.4 MG TAB SUBLINGUAL PRN ×2 (13:48→17:05)
--- NOTE | 2018-02-25 13:48 | ED ---
General Adult HPI - General Chief complaint: Chest Pain Stated complaint: Chest pain Time Seen by Provider: 02/25/18 08:45 Source: patient, RN notes reviewed Mode of arrival: EMS Limitations: no limitations - History of Present Illness Initial comments: This is a 62-year-old female with a past medical history significant for diabetes and fibromyalgia and multiple heart attacks. Patient comes in today because she has been experiencing chest pain over the last month or so but today it was much more significant today he had pain radiated into her left arm. Patient also has shortness of breath and was nauseated. Patient denies any abdominal pain patient denies nausea vomiting diarrhea. Patient denies any recent fever chills or cough. Patient states the chest pain is there currently. Patient denies any lightheadedness dizziness or near-syncopal episode. Patient denies any headache patient denies numbness weakness. - Related Data Home Medications Medication Instructions Recorded Confirmed Isosorbide Mononitrate ER [Imdur] 30 mg PO DAILY@0800 05/12/14 02/25/18 Famotidine [Pepcid] 20 mg PO BID 08/28/17 02/25/18 Ferrous Sulfate [Iron (65 MG 325 mg PO BID@0800,1700 08/28/17 02/25/18 Elemental)] Furosemide [Lasix] 40 mg PO DAILY@0600 08/28/17 02/25/18 Glimepiride [Amaryl] 1 mg PO AC-BID 08/28/17 02/25/18 Ipratropium-Albuterol Nebulize 3 ml INHALATION RT-QID PRN 08/28/17 02/25/18 [Duoneb 0.5 mg-3 mg/3 ml Soln] Levothyroxine Sodium [Synthroid] 112 mcg PO DAILY@0600 08/28/17 02/25/18 Montelukast [Singulair] 10 mg PO HS@2100 08/28/17 02/25/18 Spironolactone [Aldactone] 25 mg PO DAILY@0800 08/28/17 02/25/18 Rivaroxaban [Xarelto] 20 mg PO W/SUPPER 09/03/17 02/25/18 ALPRAZolam [Xanax] 0.25 mg PO TID PRN 01/21/18 02/25/18 Budesonide [Pulmicort] 0.5 mg INHALATION RT-BID PRN 01/21/18 02/25/18 Cetirizine HCl [Zyrtec] 10 mg PO DAILY 01/21/18 02/25/18 Clopidogrel Bisulfate [Plavix] 75 mg PO DAILY 01/21/18 02/25/18 Cyclobenzaprine [Flexeril] 5 mg PO BID PRN 01/21/18 02/25/18 Docusate [Colace] 100 mg PO BID PRN 01/21/18 02/25/18 Fluticasone Nasal [place] [Flonase 2 spr EA NOSTRIL BID PRN 01/21/18 02/25/18 Nasal [place]] Meloxicam 15 mg PO DAILY 01/21/18 02/25/18 Nitrofurantoin Macrocrystal 100 mg PO DAILY 01/21/18 02/25/18 [Macrodantin] Lisinopril [Zestril] 10 mg PO DAILY 02/25/18 02/25/18 Loratadine [Claritin] 10 mg PO DAILY PRN 02/25/18 02/25/18 Metoprolol Tartrate [Lopressor] 25 mg PO BID 02/25/18 02/25/18 Previous Rx's Medication Instructions Recorded Nitroglycerin Sl Tabs [Nitrostat] 0.4 mg SUBLINGUAL Q5M PRN tab 01/14/17 Allergies Allergy/AdvReac Type Severity Reaction Status Date / Time latex Allergy Rash/Hives Verified 02/25/18 09:51 Milk Containing Products AdvReac THRUSH Verified 02/25/18 09:51 [Dairy] Tetracyclines AdvReac YEAST Verified 02/25/18 09:51 INFECTION- PREFERS NOT TO TAKE ENVIRONMENTAL ALLERGIES Allergy SINUS Uncoded 02/25/18 08:47 SYMPTOMS-GRASS TREES,DUST,POLLENS,MOLD Review of Systems ROS Statement: Those systems with pertinent positive or pertinent negative responses have been documented in the HPI. ROS Other: All systems not noted in ROS Statement are negative. Past Medical History Past Medical History: Atrial Fibrillation, Asthma, Coronary Artery Disease (CAD) , Heart Failure, CVA/TIA, Diabetes Mellitus, Deep Vein Thrombosis (DVT), Fibromyalgia, Hyperlipidemia, Hypertension, Myocardial Infarction ([place]), Osteoarthritis (OA), Pulmonary Embolus (PE), Skin Disorder, Thyroid Disorder Additional Past Medical History / Comment(s): kidney stones,breakdown on buttocks,pain below rt breast,hx rt side dominant,BOTTOM 1/3 HEART DAMAGED- HEART MURMUR,cardiomyopathy,pt states "mult mi's, CHRONIC CONSTIPATION, ECZEMA- SKIN VERY DRY,SINUS HEADACHES, HX ANEMIA, HYST in 2013-was told cancer, gout. stage III kidney disease, past kidneys tone,steroids Dec 2017,uses a cane- unable to stand for more than 3-5 minutes reg to lower back pain. 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.FEET- NUMBNESS IF STANDS FOR MORE THAN 5, MINUTES,STROKE @ AGE 39-MILD weakness LT SIDE uses cane when up-AFFECTED FACE-LT EYELID, neuropathy, lt hand tendonitis,stg three kidney disease, kidney stones, mult cva-left side weakness, eye disorder fuchs corneal dystrophy Last Myocardial Infarction Date:: UNKNOWN History of Any Multi-Drug Resistant Organisms: None Reported Past Surgical History: Appendectomy, Cardiac Ablation, Cholecystectomy, Heart Catheterization, Heart Catheterization With Stent, Hysterectomy Additional Past Surgical History / Comment(s): PARTIAL HYSTERECTOMY 03/18/14 @ [facility]. CATARACT BLACK. WITH IMPLANTS. HEART CATH X 3 TOTAL 3 STENTS, kidney stents. Past Anesthesia/Blood Transfusion Reactions: Motion Sickness Additional Past Anesthesia/Blood Transfusion Reaction / Comment(s): no hx blood transfusion Date of Last Stent Placement:: UNKNOWN Past Psychological History: Depression Smoking Status: Former smoker - Past Family History Father Additional Family Medical History / Comment(s): "HARDENEING OF THE ARTERIES AT AGE 41. SMOKED AND DRANK ETOH Mother Family Medical History: Cancer Additional Family Medical History / Comment(s): "cyst that ruptured between bowel and bladder" General Exam - General Exam Comments Initial Comments: GENERAL: Patient is well-developed and well-nourished. Patient is nontoxic and well- hydrated and is in mild distress. ENT: Neck is soft and supple. No significant lymphadenopathy is noted. Oropharynx is clear. Moist mucous membranes. Neck has full range of motion without eliciting any pain. EYES: The sclera were anicteric and conjunctiva were pink and moist. Extraocular movements were intact and pupils were equal round and reactive to light. Eyelids were unremarkable. PULMONARY: Unlabored respirations. Good breath sounds bilaterally. No audible rales rhonchi or wheezing was noted. CARDIOVASCULAR: There is a regular rate and rhythm without any murmurs gallops or rubs. ABDOMEN: Soft and nontender with normal bowel sounds. Patient is morbidly obese. No palpable organomegaly was noted. There is no palpable pulsatile mass. RECTAL: On rectal exam stool was dark but not black. SKIN: Skin is clear with no lesions or rashes and otherwise unremarkable. NEUROLOGIC: Patient is alert and oriented x3. Cranial nerves II through XII are grossly intact. Motor and sensory are also intact. Normal speech, volume and content. Symmetrical smile. MUSCULOSKELETAL: Normal extremities with adequate strength and full range of motion. LYMPHATICS: No significant lymphadenopathy is noted PSYCHIATRIC: Normal psychiatric evaluation. Limitations: no limitations Course Vital Signs 02/25/18 02/25/18 02/25/18 08:43 10:39 11:00 Temperature 98.2 F Pulse Rate 107 H 98 98 Respiratory 18 18 16 Rate Blood Pressure 127/72 127/72 115/44 O2 Sat by Pulse 100 97 100 Oximetry 02/25/18 02/25/18 02/25/18 11:30 12:00 12:30 Temperature Pulse Rate 96 93 89 Respiratory 15 18 18 Rate Blood Pressure 107/71 127/44 127/52 O2 Sat by Pulse 100 100 100 Oximetry Medical Decision Making - Medical Decision Making Patient's hemoglobin was 4.8 so started the patient on packed red blood cells. Patient's troponin was mildly elevated. I spoke with Dr. Deluca she agreed to admit the patient admitted the patient I continue the blood-tinged on the floor. Repeated CBCs. I held any aspirin or nitro paste because the low hemoglobin. A consult to cardiology and I wrote admitting orders. Chest x-ray showed no acute abnormality. EKG shows sinus tachycardia at 106 bpm SD interval 180 QRS is 92 QT interval 350 QTC is 464. Patient's EKG shows no significant ST segment elevation or depression. No T-wave abnormalities are noted. - Lab Data Result diagrams: 02/25/18 11:36 02/25/18 11:36 Lab Results 02/25/18 02/25/18 02/25/18 Range/Units 11:36 11:36 11:36 WBC 9.4 (3.8-10.6) k/uL RBC 1.96 L (3.80-5.40) m/uL Hgb 4.8 L* D (11.4-16.0) gm/dL Hct 16.5 L* (34.0-46.0) % MCV 84.3 (80.0-100.0) fL MCH 24.5 L (25.0-35.0) pg MCHC 29.0 L (31.0-37.0) g/dL RDW 17.2 H (11.5-15.5) % Plt Count 235 (150-450) k/uL Neutrophils % 83 % Lymphocytes % 11 % Monocytes % 3 % Eosinophils % 2 % Basophils % 0 % Neutrophils # 7.8 H (1.3-7.7) k/uL Lymphocytes # 1.0 (1.0-4.8) k/uL Monocytes # 0.3 (0-1.0) k/uL Eosinophils # 0.1 (0-0.7) k/uL Basophils # 0.0 (0-0.2) k/uL Hypochromasia Marked Poikilocytosis Slight Anisocytosis Slight PT (9.0-12.0) sec INR (<1.2) APTT (22.0-30.0) sec Sodium 140 (137-145) mmol/L Potassium 5.1 (3.5-5.1) mmol/L Chloride 108 H (98-107) mmol/L Carbon Dioxide 24 (22-30) mmol/L Anion Gap 8 mmol/L BUN 33 H (7-17) mg/dL Creatinine 1.17 H (0.52-1.04) mg/dL Est GFR (CKD-EPI)AfAm 57 (>60 ml/min/1.73 sqM) Est GFR (CKD-EPI)NonAf 50 (>60 ml/min/1.73 sqM) Glucose 136 H (74-99) mg/dL Calcium 8.7 (8.4-10.2) mg/dL Magnesium 2.2 (1.6-2.3) mg/dL Total Bilirubin 0.2 (0.2-1.3) mg/dL AST 14 (14-36) U/L ALT 14 (9-52) U/L Alkaline Phosphatase 100 (38-126) U/L Total Creatine Kinase 35 (30-135) U/L CK-MB (CK-2) 1.6 (0.0-2.4) ng/mL CK-MB (CK-2) Rel Index 4.6 Troponin I 0.125 H* (0.000-0.034) ng/mL Total Protein 5.9 L (6.3-8.2) g/dL Albumin 3.2 L (3.5-5.0) g/dL 02/25/18 Range/Units 12:02 WBC (3.8-10.6) k/uL RBC (3.80-5.40) m/uL Hgb (11.4-16.0) gm/dL Hct (34.0-46.0) % MCV (80.0-100.0) fL MCH (25.0-35.0) pg MCHC (31.0-37.0) g/dL RDW (11.5-15.5) % Plt Count (150-450) k/uL Neutrophils % % Lymphocytes % % Monocytes % % Eosinophils % % Basophils % % Neutrophils # (1.3-7.7) k/uL Lymphocytes # (1.0-4.8) k/uL Monocytes # (0-1.0) k/uL Eosinophils # (0-0.7) k/uL Basophils # (0-0.2) k/uL Hypochromasia Poikilocytosis Anisocytosis PT 10.7 (9.0-12.0) sec INR 1.1 (<1.2) APTT 22.7 (22.0-30.0) sec Sodium (137-145) mmol/L Potassium (3.5-5.1) mmol/L Chloride (98-107) mmol/L Carbon Dioxide (22-30) mmol/L Anion Gap mmol/L BUN (7-17) mg/dL Creatinine (0.52-1.04) mg/dL Est GFR (CKD-EPI)AfAm (>60 ml/min/1.73 sqM) Est GFR (CKD-EPI)NonAf (>60 ml/min/1.73 sqM) Glucose (74-99) mg/dL Calcium (8.4-10.2) mg/dL Magnesium (1.6-2.3) mg/dL Total Bilirubin (0.2-1.3) mg/dL AST (14-36) U/L ALT (9-52) U/L Alkaline Phosphatase (38-126) U/L Total Creatine Kinase (30-135) U/L CK-MB (CK-2) (0.0-2.4) ng/mL CK-MB (CK-2) Rel Index Troponin I (0.000-0.034) ng/mL Total Protein (6.3-8.2) g/dL Albumin (3.5-5.0) g/dL Disposition Clinical Impression: Anemia, GI bleed, Chest pain, Elevated troponin Disposition: ADMITTED IP TO THIS HOSP Referrals: Lor Deluca MD [Primary Care Provider] - 1-2 days Time of Disposition: 13:48
[2018-02-25 16:58] LABS: Glucose,Whole Blood 98 mg/dL (75-99)
--- NOTE | 2018-02-25 17:09 | P.HPIM ---
History of Present Illness H&P Date: 02/25/18 Chief Complaint: Chest pain weakness anemia GI bleed 62-year-old obese female one of my patient with multiple medical problem known to have history of diabetes hypertension hyperlipidemia coronary disease post angioplasty and stent placement in the past, also history of pulmonary embolism paroxysmal atrophy fibrillation with ablation still on anticoagulation. Patient not seen Dr. Deluca, seen Dr. Taylor cardiology regular basis also had seen urology in the past for history of kidney stone. On antibiotic prophylaxis with nitrofurantoin Patient comes in to the emergency room secondary to chest discomfort over the past 1 month, increasing in intensity, radiating to the left arm, also with shortness of breath this man exertion, nausea, patient denies any abdominal pain vomiting or diarrhea, no fever no chills no cough. Patient denies any melena hematochezia, however when seen in the emergency room, she is significantly anemic, patient is on Xarelto at any medication changes, next Emergency room, EKG shows sinus tach cardia 106, no acute ST-T wave changes, hemoglobin was 4.8, previous off 7.1, potassium of 5.1, creatinine of 1.17, glucose 136, liver function tests normal, troponins 0.125 Xarelto on hold secondary to cyclical secondary to severe anemia, consults with cardiology and GI, blood is positive. Total of 3 units of packed red blood cells to be given today for hemoglobin of 4, expected hemoglobin rise to be around 7 with a 3 units Review of Systems Constitutional: Reports as per HPI, Reports anorexia, Reports fatigue, Reports poor appetite, Reports weakness, Denies chills, Denies chronic headaches, Denies chronic pain, Denies daytime sleepiness, Denies fever, Denies lethargy, Denies malaise, Denies night sweats, Denies sweats, Denies weight gain, Denies weight loss Ears, nose, mouth and throat: Reports as per HPI, Denies ant. neck pain, Denies bleeding gums, Denies dental pain, Denies dysphagia, Denies epistaxis, Denies headache, Denies hoarseness, Denies mouth pain, Denies nasal congestion, Denies nasal discharge, Denies neck fullness/pressure, Denies neck lump, Denies nose pain, Denies odynophagia, Denies post-nasal drip, Denies sinus pain, Denies sinus pressure, Denies swelling in mouth, Denies swelling in throat, Denies sore throat, Denies vertigo, Denies voice changes Cardiovascular: Reports as per HPI, Reports chest pain, Reports decreased exercise tolerance, Reports dyspnea on exertion, Reports edema, Reports shortness of breath, Denies claudication, Denies high blood pressure, Denies irregular heart beat, Denies leg edema, Denies lightheadedness, Denies orthopnea , Denies palpitations, Denies paroxysmal nocturnal dyspnea, Denies phlebitis, Denies rapid heart beat, Denies syncope Respiratory: Reports as per HPI, Denies congestion, Denies cough, Denies cough with sputum, Denies dyspnea, Denies excessive sputum, Denies hemoptysis, Denies home oxygen, Denies pain, Denies pain on inspiration, Denies pleurisy, Denies respiratory infections, Denies sleep apnea, Denies snoring, Denies wheezing Gastrointestinal: Reports as per HPI, Reports nausea, Denies abdominal pain, Denies belching, Denies bloating, Denies BRBPR, Denies change in bowel habits, Denies coffee ground emesis, Denies constipation, Denies diarrhea, Denies dyspepsia, Denies early satiety, Denies excessive gas, Denies heartburn, Denies hematemesis, Denies hematochezia, Denies indigestion, Denies jaundice, Denies lactose intolerance, Denies loss of appetite, Denies melena, Denies vomiting Genitourinary: Reports as per HPI, Denies abnormal vaginal bleeding, Denies decreased libido, Denies difficulty conceiving, Denies difficulty voiding, Denies dysmenorrhea, Denies dyspareunia, Denies dysuria, Denies flank pain, Denies genital sores, Denies hematuria, Denies hot flashes, Denies incomplete emptying, Denies kidney stones, Denies menorrhagia, Denies mixed incontinence, Denies nocturia, Denies pelvic pain, Denies post void dribbling, Denies , Denies prolapse symptoms, Denies stress incontinence, Denies urge incontinence , Denies urgency, Denies urinary frequency, Denies vaginal discharge, Denies vaginal dryness, Denies vaginal itching, Denies vaginal odor Menstruation: Reports as per HPI, Denies amenorrhea, Denies amenorrhea on BC, Denies currently menstrual, Denies cycle < 21 days, Denies cycle > 35 days, Denies cycle variable, Denies menses 1-7 days, Denies menses 8 or > days, Denies menses variable, Denies period heavy, Denies period light, Denies period normal, Denies period spotting, Denies post hysterectomy, Denies postmenopausal , Denies premenarcheal Musculoskeletal: Reports as per HPI, Reports gait dysfunction, Reports muscle cramps, Reports muscle weakness, Denies arm numbness/tingling, Denies atrophy, Denies fractures, Denies frequent falls, Denies hot joints, Denies leg numbness/ tingling, Denies limitation of motion, Denies loss of height, Denies low back pain, Denies morning stiffness, Denies myalgias, Denies neck pain, Denies neck stiffness, Denies prior amputations, Denies redness of joints, Denies shooting arm pain, Denies shooting leg pain Integumentary: Reports as per HPI, Denies acne, Denies boils, Denies brittle nails, Denies change in hair/nails, Denies color changes, Denies darkening of skin, Denies depigmentation, Denies dryness, Denies foot/leg ulcers, Denies growths, Denies hirsutism, Denies lesions, Denies onychomycosis, Denies pruritus , Denies rash, Denies sores, Denies striae, Denies unusual bruising, Denies wounds Neurological: Reports as per HPI, Reports gait dysfunction, Reports memory loss , Reports weakness, Denies aphasia, Denies ataxia, Denies balance difficulties, Denies burning pain, Denies change in mentation, Denies change in smell/taste, Denies change in speech, Denies confusion, Denies convulsions, Denies double vision, Denies head injury, Denies headaches, Denies hearing difficulties, Denies lack of coordination, Denies loss of vision, Denies migraines, Denies motor disturbance, Denies numbness, Denies paralysis, Denies paresthesias, Denies seizures, Denies sensory deficit, Denies spasticity, Denies syncope, Denies tic, Denies tingling, Denies transient paralysis, Denies tremors, Denies vertigo, Denies visual changes Psychiatric: Reports as per HPI, Denies anhedonia, Denies anxiety, Denies anxiety attacks, Denies change in appetite, Denies change in libido, Denies change in sleep habits, Denies confusion, Denies depression, Denies difficulty concentrating, Denies disorientation, Denies hallucinations, Denies hopelessness , Denies hypersomnia, Denies insomnia, Denies irritability, Denies memory loss, Denies mood swings, Denies paranoia, Denies sadness/tearfulness, Denies sleep disturbances, Denies suicidal ideation Endocrine: Reports as per HPI Hematologic/Lymphatic: Reports as per HPI, Denies easy bruising, Denies lymphadenopathy, Denies lymphedema, Denies thrombophilia Allergic/Immunologic: Reports as per HPI, Denies allergic rhinitis, Denies anaphylaxis, Denies angioedema, Denies gluten intolerance, Denies persistent infections, Denies seasonal allergies, Denies urticaria, Denies wheezing Past Medical History Past Medical History: Atrial Fibrillation, Asthma, Coronary Artery Disease (CAD) , Heart Failure, CVA/TIA, Diabetes Mellitus, Deep Vein Thrombosis (DVT), Fibromyalgia, Hyperlipidemia, Hypertension, Myocardial Infarction (AL), Osteoarthritis (OA), Pulmonary Embolus (PE), Skin Disorder, Thyroid Disorder Additional Past Medical History / Comment(s): kidney stones,breakdown on buttocks,pain below rt breast,hx rt side dominant,BOTTOM 1/3 HEART DAMAGED- HEART MURMUR,cardiomyopathy,pt states "mult mi's, CHRONIC CONSTIPATION, ECZ[place]- SKIN VERY DRY,SINUS HEADACHES, HX ANEMIA, HYST in 2013-was told cancer, gout. stage III kidney disease, past kidneys tone,steroids Dec 2017,uses a cane- unable to stand for more than 3-5 minutes reg to lower back pain. 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.FEET- NUMBNESS IF STANDS FOR MORE THAN 5, MINUTES,STROKE @ AGE 39-MILD weakness LT SIDE uses cane when up-AFFECTED FACE-LT EYELID, neuropathy, lt hand tendonitis,stg three kidney disease, kidney stones, mult cva-left side weakness, eye disorder fuchs corneal dystrophy Last Myocardial Infarction Date:: UNKNOWN History of Any Multi-Drug Resistant Organisms: None Reported Past Surgical History: Appendectomy, Cardiac Ablation, Cholecystectomy, Heart Catheterization, Heart Catheterization With Stent, Hysterectomy Additional Past Surgical History / Comment(s): PARTIAL HYSTERECTOMY 03/18/14 @ [facility]. CATARACT BLACK. WITH IMPLANTS. HEART CATH X 3 TOTAL 3 STENTS, kidney stents. Past Anesthesia/Blood Transfusion Reactions: Motion Sickness Additional Past Anesthesia/Blood Transfusion Reaction / Comment(s): no hx blood transfusion Date of Last Stent Placement:: UNKNOWN Past Psychological History: Depression Smoking Status: Former smoker - Past Family History Father Additional Family Medical History / Comment(s): "HARDENEING OF THE ARTERIES AT AGE 41. SMOKED AND DRANK ETOH Mother Family Medical History: Cancer Additional Family Medical History / Comment(s): "cyst that ruptured between bowel and bladder" Medications and Allergies Home Medications Medication Instructions Recorded Confirmed Type Isosorbide Mononitrate ER [Imdur] 30 mg PO DAILY@0800 05/12/14 02/25/18 History Nitroglycerin Sl Tabs [Nitrostat] 0.4 mg SUBLINGUAL Q5M PRN tab 01/14/17 Rx Famotidine [Pepcid] 20 mg PO BID 08/28/17 02/25/18 History Ferrous Sulfate [Iron (65 MG 325 mg PO BID@0800,1700 08/28/17 02/25/18 History Elemental)] Furosemide [Lasix] 40 mg PO DAILY@0600 08/28/17 02/25/18 History Glimepiride [Amaryl] 1 mg PO AC-BID 08/28/17 02/25/18 History Ipratropium-Albuterol Nebulize 3 ml INHALATION RT-QID PRN 08/28/17 02/25/18 History [Duoneb 0.5 mg-3 mg/3 ml Soln] Levothyroxine Sodium [Synthroid] 112 mcg PO DAILY@0600 08/28/17 02/25/18 History Montelukast [Singulair] 10 mg PO HS@2100 08/28/17 02/25/18 History Spironolactone [Aldactone] 25 mg PO DAILY@0800 08/28/17 02/25/18 History Rivaroxaban [Xarelto] 20 mg PO W/SUPPER 09/03/17 02/25/18 History ALPRAZolam [Xanax] 0.25 mg PO TID PRN 01/21/18 02/25/18 History Budesonide [Pulmicort] 0.5 mg INHALATION RT-BID PRN 01/21/18 02/25/18 History Cetirizine HCl [Zyrtec] 10 mg PO DAILY 01/21/18 02/25/18 History Clopidogrel Bisulfate [Plavix] 75 mg PO DAILY 01/21/18 02/25/18 History Cyclobenzaprine [Flexeril] 5 mg PO BID PRN 01/21/18 02/25/18 History Docusate [Colace] 100 mg PO BID PRN 01/21/18 02/25/18 History Fluticasone Nasal [place] [Flonase 2 spr EA NOSTRIL BID PRN 01/21/18 02/25/18 History Nasal [place]] Meloxicam 15 mg PO DAILY 01/21/18 02/25/18 History Nitrofurantoin Macrocrystal 100 mg PO DAILY 01/21/18 02/25/18 History [Macrodantin] Lisinopril [Zestril] 10 mg PO DAILY 02/25/18 02/25/18 History Loratadine [Claritin] 10 mg PO DAILY PRN 02/25/18 02/25/18 History Metoprolol Tartrate [Lopressor] 25 mg PO BID 02/25/18 02/25/18 History Allergies Allergy/AdvReac Type Severity Reaction Status Date / Time latex Allergy Rash/Hives Verified 02/25/18 09:51 Milk Containing Products AdvReac THRUSH Verified 02/25/18 09:51 [Dairy] Tetracyclines AdvReac YEAST Verified 02/25/18 09:51 INFECTION- PREFERS NOT TO TAKE ENVIRONMENTAL ALLERGIES Allergy SINUS Uncoded 02/25/18 08:47 SYMPTOMS-GRASS TREES,DUST,POLLENS,MOLD Physical Exam Vitals: Vital Signs Temp Pulse Resp BP Pulse Ox 02/25/18 16:28 98.2 F 89 20 132/66 99 02/25/18 16:00 90 18 136/74 100 02/25/18 15:58 98.2 F 92 20 125/60 99 02/25/18 15:48 98.1 F 96 18 136/74 99 02/25/18 15:46 98.1 F 87 18 138/89 02/25/18 15:30 101 H 18 139/81 100 02/25/18 15:00 93 18 100 02/25/18 14:30 91 18 100 02/25/18 14:00 92 18 120/76 99 02/25/18 13:30 94 18 106/57 100 02/25/18 13:00 87 18 100/61 100 02/25/18 12:30 89 18 127/52 100 02/25/18 12:00 93 18 127/44 100 02/25/18 11:30 96 15 107/71 100 02/25/18 11:00 98 16 115/44 100 02/25/18 10:39 98 18 127/72 97 02/25/18 08:43 98.2 F 107 H 18 127/72 100 Intake and Output 02/25/18 02/25/18 02/25/18 06:59 14:59 22:59 Intake Total 0 Output Total 200 Balance -200 Intake: Blood Product 0 Rc As-1 Unit 0 [id number] Output: Urine 200 Uretheral ([place]) 200 Other: Weight 119.748 kg Results CBC & Chem 7: 02/25/18 11:36 02/25/18 11:36 Labs: Abnormal Lab Results - Last 24 Hours (Table) 02/25/18 02/25/18 02/25/18 Range/Units 11:36 11:36 11:36 RBC 1.96 L (3.80-5.40) m/uL Hgb 4.8 L* D (11.4-16.0) gm/dL Hct 16.5 L* (34.0-46.0) % MCH 24.5 L (25.0-35.0) pg MCHC 29.0 L (31.0-37.0) g/dL RDW 17.2 H (11.5-15.5) % Neutrophils # 7.8 H (1.3-7.7) k/uL Chloride 108 H (98-107) mmol/L BUN 33 H (7-17) mg/dL Creatinine 1.17 H (0.52-1.04) mg/dL Glucose 136 H (74-99) mg/dL Troponin I 0.125 H* (0.000-0.034) ng/mL Total Protein 5.9 L (6.3-8.2) g/dL Albumin 3.2 L (3.5-5.0) g/dL Stool Occult Blood (Negative) Crossmatch 02/25/18 02/25/18 Range/Units 12:59 13:24 RBC (3.80-5.40) m/uL Hgb (11.4-16.0) gm/dL Hct (34.0-46.0) % MCH (25.0-35.0) pg MCHC (31.0-37.0) g/dL RDW (11.5-15.5) % Neutrophils # (1.3-7.7) k/uL Chloride (98-107) mmol/L BUN (7-17) mg/dL Creatinine (0.52-1.04) mg/dL Glucose (74-99) mg/dL Troponin I (0.000-0.034) ng/mL Total Protein (6.3-8.2) g/dL Albumin (3.5-5.0) g/dL Stool Occult Blood Positive H (Negative) Crossmatch See Detail Thrombosis Risk Factor Assmnt - DVT/VTE Prophylaxis DVT/VTE Prophylaxis: Contraindicated - See note Assessment and Plan Plan: 1. Severe anemia, symptomatic with dyspnea on exertion, chest pain most likely blood losses from the GI tract, patient would need EGD and/or colonoscopy, she is currently on Xarelto which would obviously be discontinued, pending studies from GI. Patient will be transfused additional 2 units of packed red blood cell , for a total of 3 units within the next 24 hours iron studies to be done, patient might need iron infusions, or Procrit/aranesp 2 chest pain most likely secondary to demand ischemia mismatch from anemia, Patient is known to have history of coronary disease with multiple angioplasty and stent CK with troponin 3 will be done repeat EKG We'll reconsult cardiology 3 history of large kidney stone in the right side with obstructive uropathy and hydronephrosis Y urostomy and lithotripsy, history of pyelonephritis, resolved follows with urology outpatient 4 history of pulmonary embolism: Has been on anticoagulation with Xarelto 5 A. fib with RVR: Post ablation still on blood thinner medication and beta go. He would hold off anticoagulation Xarelto secondary to GI bleeding 6 history of CVA: Stable with no worsening residual at this point. 7 hypertension: Has been on metoprolol 50 mg twice a day and spironolactone. 8 hyperlipidemia: Off statin because of side effect. 9 hypothyroidism: On levothyroxine 112 g. 11 asthma: On albuterol/ipratropium 4 times a day 12 diabetes: Continue patient on Amaryl and metformin, Accu-Chek with sliding scales coverage and be done. 13 GI prophylaxis: On Pepcid daily. 14 DVT prophylaxis: Patient is on anticoagulation already. CODE STATUS: Full code. Admit patient to status inpatient for more than 2 nights.
[2018-02-25] MEDS: ALPRAZolam 0.25 MG TAB PO PRN (18:17)
[2018-02-25] MEDS: NITROGLYCERIN OINT 1 INCH/GM PACKET TOPICAL SCH (18:46)
[2018-02-25] MEDS: BUDESONIDE 0.5 MG/2 ML NEBU INHALATION SCH (20:14)
[2018-02-25] MEDS: MONTELUKAST 10 MG TAB PO SCH (21:22)
[2018-02-25] MEDS: METOPROLOL TARTRATE 25 MG TAB PO SCH (21:22)
[2018-02-25] MEDS ORDERED: SODIUM CHLORIDE 0.65% NASAL SPRAY 44 ML BTL NASAL PRN (21:29)
[2018-02-26 02:36] LABS: Basophils % (A) 0 %; Eosinophils # (A) 0.3 k/uL (0-0.7); Eosinophils % (A) 3 %; HCT 25.3 % (34.0-46.0); Hypochromasia Marked; Lymphocytes # (A) 1.5 k/uL (1.0-4.8); Lymphocytes % (A) 14 %; MCH 27.7 pg (25.0-35.0); MCHC 31.2 g/dL (31.0-37.0); MCV 88.8 fL (80.0-100.0); Mean Platelet Volume 6.7; Monocytes # (A) 0.7 k/uL (0-1.0); Monocytes % (A) 6 %; Neutrophils # (A) 7.9 k/uL (1.3-7.7); Neutrophils % (A) 75 %; Platelet Count 219 k/uL (150-450); Poikilocytosis Marked; RBC 2.84 m/uL (3.80-5.40); RDW 15.6 % (11.5-15.5); WBC 10.6 k/uL (3.8-10.6)
[2018-02-26 02:40] LABS: Albumin 3.1 g/dL (3.5-5.0); Calcium 8.3 mg/dL (8.4-10.2); Potassium 5.3 mmol/L (3.5-5.1); Total Bilirubin 1.4 mg/dL (0.2-1.3); Total Protein 5.9 g/dL (6.3-8.2)
[2018-02-26 02:44] LABS: HGB 7.9 gm/dL (11.4-16.0)
[2018-02-26 02:47] LABS: Creatine Kinase MB 8.6 ng/mL (0.0-2.4)
[2018-02-26 02:49] LABS: Troponin I 3.79 ng/mL (0.000-0.034)
[2018-02-26] MEDS: ALPRAZolam 0.25 MG TAB PO PRN (03:41)
[2018-02-26] MEDS: NITROGLYCERIN OINT 1 INCH/GM PACKET TOPICAL SCH ×4 (03:41→18:45)
[2018-02-26] MEDS: FUROSEMIDE 40 MG TAB PO SCH (07:02)
[2018-02-26] MEDS: LEVOTHYROXINE 112 MCG TAB PO SCH (07:02)
[2018-02-26] MEDS ORDERED: ISOSORBIDE MONONITRATE ER 30 MG TAB.ER.24H PO SCH (08:00)
[2018-02-26] MEDS ORDERED: SPIRONOLACTONE 25 MG TAB PO SCH (08:00)
[2018-02-26] MEDS: BUDESONIDE 0.5 MG/2 ML NEBU INHALATION SCH ×2 (08:02→20:26)
[2018-02-26] MEDS ORDERED: LISINOPRIL 10 MG TAB PO SCH (09:00)
[2018-02-26 10:27] LABS: Glucose,Whole Blood 178 mg/dL (75-99)
[2018-02-26] MEDS: METOPROLOL TARTRATE 25 MG TAB PO SCH ×2 (10:35→22:25)
[2018-02-26] MEDS: NITROFURANTOIN MONOHYD/M-CRYST 100 MG CAP PO SCH (10:36)
[2018-02-26] MEDS: PANTOPRAZOLE 40 MG/10 ML VIAL IVP SCH ×2 (10:36→22:26)
--- NOTE | 2018-02-26 11:42 | CONS ---
CONSULTATION Mrs. Oconnell is a 62-year-old female who presented with symptoms of progressive symptoms of chest discomfort, progressive fatigue and dyspnea. She has a known history of coronary artery disease with totally occluded LAD and significant stenosis in the right coronary artery and attempt to undergo stenting of those vessels by Dr. Shira Fry in August of this year were unsuccessful. At that time, the decision was made for possible evaluation for surgical intervention. The patient also has a history of paroxysmal atrial fibrillation. She is followed by Dr. Taylor on a regular basis. She presented with the progressive symptoms requiring multiple use of nitroglycerin and subsequently with pain at rest not improved with nitroglycerin. In the emergency room, she was noted to be severely anemic. She received 3 units of transfusion and is feeling better at this time. She has dyspnea on exertion. She has history of PND. No palpitations. No syncope. There was a question of atrial fibrillation on presentation, although the rhythm strip available to me shows sinus tachycardia. I do not see atrial fibrillation. The patient in the past had a prior cardiomyopathy. She is limited in her physical activity and much worse now because of her progressive fatigue and dyspnea. She has noted GI bleeding with dark red stool initially from the iron that she takes routinely, but she has noted some blood. She has some nausea but no vomiting. She has a history of ureteral stent because of renal stone and that was removed on January [address] You. Her coronary risk factors are remarkable for the history of hyperlipidemia, diabetes and hypertension. She is a nonsmoker. MEDICATION: Her medications at home include Aldactone 25 mg daily, Xarelto 20 mg daily, Lopressor 25 mg twice a day, Zestril 10 mg daily, isosorbide mononitrate 30 mg daily, Amaryl 1 mg twice a day, Lasix 40 mg daily, iron, Pepcid, Flexeril, Plavix 75 mg daily, Pulmicort and Xanax. REVIEW OF SYSTEMS: RESPIRATORY system: She had dyspnea on exertion. She has no history of documented obstructive lung disease. GASTROINTESTINAL system: She has the dark stool and blood. system: She has renal stones and recent removal of a stent and nervous system: No history of seizure. PHYSICAL EXAMINATION: She is a 67-year-old female, alert, oriented, in no apparent distress. Obese. Blood pressure 114/50 with a heart rate in the 70s. HEAD: Normocephalic. Eyes: Sclerae anicteric. Neck good upstroke. No bruit. Lungs: No wheezes or rales. HEART: Regular rate and rhythm S1, S2. No S3 with systolic ejection murmur heard at the base. No diastolic murmur. No rub. ABDOMEN: Soft, obese, nontender. Positive bowel sounds. No organomegaly. EXTREMITIES: No edema. LAB DATA: Lab data revealed a hemoglobin of 4.8 on admission, up to 7.9 today after transfusion of 2 units. BUN and creatinine on admission 33 and 1.172, today 31, 1.03. Troponin 0.125 up to 3.790. She is heme positive. Her EKG on presentation revealed a sinus mechanism, normal axis, rate of [address]-T wave changes. Her chest x- ray shows no acute infiltrate. IMPRESSION: 1. Non ST-segment elevation myocardial infarction, probably exacerbated by the severe anemia in a patient with known history of severe coronary artery disease that was not amenable to percutaneous revascularization. Patient was felt to be a surgical candidate at a certain point. 2. Severe anemia with gastrointestinal bleeding. Further workup will be needed. 3. History of paroxysmal fibrillation. 4. History of recent ureteral stent removal. 5. Hypertension. 6. Hyperlipidemia. 7. Diabetes mellitus. RECOMMENDATIONS: From the cardiac standpoint, I will continue on the beta go and nitrate. I will add to her regimen a statin. Patient had side effects from atorvastatin. We will try pravastatin. I will obtain an echocardiogram with Doppler. We will follow her renal function closely. At this time, she is not a candidate for any cardiac workup and the patient in the past had an unsuccessful angioplasty of a totally occluded LAD or angioplasty of her severely calcified mid right coronary artery. Thank you for this consult. We will follow with you. MMODL / IJN: [id number] /
[2018-02-26 11:59] LABS: Glucose,Whole Blood 131 mg/dL (75-99)
[2018-02-26] MEDS: HYDROcodone/APAP 5-325MG 1 EACH TAB PO PRN ×2 (12:16→22:38)
[2018-02-26] MEDS: INSULIN ASPART 100 UNIT/ML 1 ML 10 ML VIAL SQ SCH ×2 (12:17→17:30)
--- NOTE | 2018-02-26 12:44 | P.CNPUL ---
History of Present Illness Consult date: 02/26/18 Requesting physician: Lor Deluca Reason for consult: other (Chest pain, acute non-ST elevation myocardial infarction, profound anemia, GI bleeding) Chief complaint: Chest pain and weakness History of present illness: This is a 62-year-old female with history of multiple medical problems including severe coronary artery disease, multiple stents placed in the past, however the patient was not felt to be a good candidate for coronary artery bypass graft surgery. Apparently she had issues related to her stage III chronic renal failure, and she had issues at the time related to nephrolithiasis and ureteral stent placement. Patient was seen by cardiac surgery, and she was felt to be a high surgical risk, apparently the decision was to treat the patient medically for her ongoing symptoms of angina. Patient has been taking nitroglycerin frequently on a regular basis for intermittent episodes of chest pain. Patient usually sees Dr. Rivera from cardiology. At any rate the patient came in to the emergency room yesterday complaining of chest pain, responded well to nitroglycerin, and her chest pain has been going on and off for the last 1 month. She was also complaining of dyspnea on exertion, radiation of the pain to the left arm, she had intermittent episodes of black stools, and she is on Xarelto she is also on Plavix. At any rate patient hemoglobin was noted to be extremely low. Patient was admitted for blood transfusion, and for further cardiac evaluation. Patient received a total of 3 units of packed RBCs so far since admission, her hemoglobin this morning is 7.9. Her Plavix and Xarelto are presently on hold. Her troponin was noted to be elevated at 3.79. And her stools were positive for Hemoccult blood. Patient was seen by cardiology/Dr. Mallory, and he felt that the patient had non-ST segment elevation myocardial infarction exacerbated by severe anemia with known history of severe coronary artery disease and the patient was non- amenable to percutaneous revascularization and was not felt to be a surgical candidate at a certain time. At any rate patient is in the ICU at present, she continues to have occasional intermittent chest pains, presently no nausea no vomiting no abdominal pain, she did have black stools earlier. Denies any headaches no blurred vision no dizziness. No nausea no vomiting no dysuria and no frequency no urgency. Patient was placed on Protonix, and she will be seen by gastroenterology. Her last colonoscopy was over 10 years ago. Patient never had any history of GI bleeding in the past medical history of peptic ulcer disease, and no history of diverticulosis. Review of Systems 14 point review of systems were obtained, please refer to pertinent positives in HPI, otherwise remaining systems are negative. Past Medical History Past Medical History: Atrial Fibrillation, Asthma, Coronary Artery Disease (CAD) , Heart Failure, CVA/TIA, Diabetes Mellitus, Deep Vein Thrombosis (DVT), Fibromyalgia, Hyperlipidemia, Hypertension, Myocardial Infarction (NH), Osteoarthritis (OA), Pulmonary Embolus (PE), Skin Disorder, Thyroid Disorder Additional Past Medical History / Comment(s): c/o blood in stool last few days and for past 6 months has had a constant weithed heaviness rt side of head "kidney stones,breakdown on buttocks,pain below rt breast,hx rt side dominant, BOTTOM 1/3 HEART DAMAGED-HEART MURMUR,cardiomyopathy,pt states "mult mi's, CHRONIC CONSTIPATION, ECZEMA-SKIN VERY DRY,SINUS HEADACHES, HX ANEMIA, HYST in 2013-was told cancer, gout. stage III kidney disease, past kidneys tone, steroids Dec 2017,uses a cane-unable to stand for more than 3-5 minutes reg to lower back pain. 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.FEET- NUMBNESS IF STANDS FOR MORE THAN 5, MINUTES,STROKE @ AGE 39-MILD weakness LT SIDE uses cane when up-AFFECTED FACE- LT EYELID, neuropathy, lt hand tendonitis,stg three kidney disease, kidney stones, mult cva-left side weakness,eye disorder fuchs corneal dystrophy Last Myocardial Infarction Date:: UNKNOWN History of Any Multi-Drug Resistant Organisms: None Reported Past Surgical History: Appendectomy, Cardiac Ablation, Cholecystectomy, Heart Catheterization, Heart Catheterization With Stent, Hysterectomy Additional Past Surgical History / Comment(s): PARTIAL HYSTERECTOMY 03/18/14 @ [facility]. CATARACT BLACK. WITH IMPLANTS. HEART CATH X 3 TOTAL 3 STENTS, lithotripsy,kidney stents-since removed. Past Anesthesia/Blood Transfusion Reactions: Motion Sickness Additional Past Anesthesia/Blood Transfusion Reaction / Comment(s): no hx blood transfusion Date of Last Stent Placement:: UNKNOWN Smoking Status: Former smoker - Past Family History Father Additional Family Medical History / Comment(s): "HARDENEING OF THE ARTERIES AT AGE 41. SMOKED AND DRANK ETOH Mother Family Medical History: Cancer Additional Family Medical History / Comment(s): "cyst that ruptured between bowel and bladder" Medications and Allergies Home Medications Medication Instructions Recorded Confirmed Type Isosorbide Mononitrate ER [Imdur] 30 mg PO DAILY@0800 05/12/14 02/25/18 History Nitroglycerin Sl Tabs [Nitrostat] 0.4 mg SUBLINGUAL Q5M PRN tab 01/14/17 Rx Famotidine [Pepcid] 20 mg PO BID 08/28/17 02/25/18 History Ferrous Sulfate [Iron (65 MG 325 mg PO BID@0800,1700 08/28/17 02/25/18 History Elemental)] Furosemide [Lasix] 40 mg PO DAILY@0600 08/28/17 02/25/18 History Glimepiride [Amaryl] 1 mg PO AC-BID 08/28/17 02/25/18 History Ipratropium-Albuterol Nebulize 3 ml INHALATION RT-QID PRN 08/28/17 02/25/18 History [Duoneb 0.5 mg-3 mg/3 ml Soln] Levothyroxine Sodium [Synthroid] 112 mcg PO DAILY@0600 08/28/17 02/25/18 History Montelukast [Singulair] 10 mg PO HS@2100 08/28/17 02/25/18 History Spironolactone [Aldactone] 25 mg PO DAILY@0800 08/28/17 02/25/18 History Rivaroxaban [Xarelto] 20 mg PO W/SUPPER 09/03/17 02/25/18 History ALPRAZolam [Xanax] 0.25 mg PO TID PRN 01/21/18 02/25/18 History Budesonide [Pulmicort] 0.5 mg INHALATION RT-BID PRN 01/21/18 02/25/18 History Cetirizine HCl [Zyrtec] 10 mg PO DAILY 01/21/18 02/25/18 History Clopidogrel Bisulfate [Plavix] 75 mg PO DAILY 01/21/18 02/25/18 History Cyclobenzaprine [Flexeril] 5 mg PO BID PRN 01/21/18 02/25/18 History Docusate [Colace] 100 mg PO BID PRN 01/21/18 02/25/18 History Fluticasone Nasal [place] [Flonase 2 spr EA NOSTRIL BID PRN 01/21/18 02/25/18 History Nasal [place]] Meloxicam 15 mg PO DAILY 01/21/18 02/25/18 History Nitrofurantoin Macrocrystal 100 mg PO DAILY 01/21/18 02/25/18 History [Macrodantin] Lisinopril [Zestril] 10 mg PO DAILY 02/25/18 02/25/18 History Loratadine [Claritin] 10 mg PO DAILY PRN 02/25/18 02/25/18 History Metoprolol Tartrate [Lopressor] 25 mg PO BID 02/25/18 02/25/18 History Allergies Allergy/AdvReac Type Severity Reaction Status Date / Time latex Allergy Rash/Hives Verified 02/25/18 09:51 Milk Containing Products AdvReac THRUSH Verified 02/25/18 09:51 [Dairy] Tetracyclines AdvReac YEAST Verified 02/25/18 09:51 INFECTION- PREFERS NOT TO TAKE ENVIRONMENTAL ALLERGIES Allergy SINUS Uncoded 02/25/18 08:47 SYMPTOMS-GRASS TREES,DUST,POLLENS,MOLD Physical Exam Vitals: Vital Signs Temp Pulse Resp BP Pulse Ox 02/26/18 11:00 82 15 127/70 96 02/26/18 10:00 80 15 127/70 96 02/26/18 09:00 98.5 F 79 18 114/55 96 02/26/18 08:13 82 02/26/18 08:02 81 02/26/18 08:00 82 26 H 113/64 97 02/26/18 07:00 76 14 113/64 96 02/26/18 06:30 69 13 113/64 97 02/26/18 06:00 69 11 L 113/64 96 02/26/18 05:30 65 11 L 96 02/26/18 05:00 69 13 96 02/26/18 04:30 70 12 98 02/26/18 04:00 98.2 F 66 11 L 124/54 97 02/26/18 03:30 68 11 L 124/54 02/26/18 03:00 77 19 124/54 02/26/18 02:30 78 11 L 124/54 02/26/18 02:00 76 13 124/54 02/26/18 01:30 76 15 124/54 02/26/18 01:00 85 25 H 124/54 02/26/18 00:30 74 17 124/54 96 02/26/18 00:00 81 21 111/45 96 02/25/18 23:30 73 18 111/45 95 02/25/18 23:16 72 18 111/45 96 02/25/18 23:00 71 17 111/45 95 02/25/18 22:35 98.3 F 72 17 97 02/25/18 22:30 69 15 111/45 94 L 02/25/18 22:05 98.4 F 71 13 111/45 95 02/25/18 22:00 77 17 111/45 96 02/25/18 21:55 97.9 F 78 15 111/50 02/25/18 21:30 92 14 128/60 97 02/25/18 21:00 99 20 128/60 96 02/25/18 20:45 98.1 F 80 17 128/60 02/25/18 20:30 96 15 128/60 99 02/25/18 20:26 96 02/25/18 20:19 98 98 02/25/18 20:00 98.1 F 98 13 121/65 96 02/25/18 19:30 98 23 121/65 97 02/25/18 19:14 98.0 F 85 24 124/62 02/25/18 19:00 105 H 21 121/65 98 02/25/18 18:44 97.8 F 95 22 128/72 02/25/18 18:34 97.8 F 105 H 21 121/65 99 02/25/18 18:30 105 H 17 121/65 98 02/25/18 18:05 97.5 F L 75 16 128/48 02/25/18 18:00 100 13 126/60 99 02/25/18 17:30 98 15 126/60 99 02/25/18 17:00 98.0 F 93 10 L 126/60 99 02/25/18 16:30 125/60 02/25/18 16:28 98.2 F 89 20 132/66 99 02/25/18 16:00 90 18 136/74 100 02/25/18 15:58 98.2 F 92 20 125/60 99 11/21/18 15:48 98.1 F 96 18 136/74 99 02/25/18 15:46 98.1 F 87 18 138/89 02/25/18 15:30 101 H 18 139/81 100 02/25/18 15:00 93 18 100 02/25/18 14:30 91 18 100 02/25/18 14:00 92 18 120/76 99 02/25/18 13:30 94 18 106/57 100 02/25/18 13:00 87 18 100/61 100 02/25/18 12:30 89 18 127/52 100 Intake and Output 02/25/18 02/26/18 02/26/18 22:59 06:59 14:59 Intake Total 1170 310 Output Total 086 984 8469 Balance 470 -160 -1250 Intake: Oral 240 Blood Product 930 310 Rc As-1 Unit 310 [id number] Rc As-1 Unit 310 [id number] Rc Irr As1 Unit 0 310 [id number] Output: Urine 673 515 4072 Uretheral (Corbin) 200 Other: Voiding Method Indwelling Catheter Indwelling Catheter Indwelling Catheter Weight 121.2 kg Physical Exam: Revealed a 62-year-old female in no distress. Head: Atraumatic normocephalic. HEENT:[Neck is supple.] [No neck masses.] [No thyromegaly.] [No JVD.] Chest: [Clear throughout, no crackles, no rhonchi, no wheezes.] Cardiac Exam: [Normal S1 and S2, no S3 gallop, no murmur.] Abdomen: [Soft, nontender, no megaly, no rebound, no guarding, normal bowel sounds.] Extremities: [No clubbing, no edema, no cyanosis.] Neurological Exam: [No focal neurologic deficit.] Skin: No rashes. Psychiatric: Normal mood, affect and mental status examination. Results - Laboratory Findings CBC and BMP: 02/26/18 01:43 02/26/18 01:43 PT/INR, D-dimer PT 10.7 sec (9.0-12.0) 02/25/18 12:02 INR 1.1 (<1.2) 02/25/18 12:02 Abnormal lab findings: Abnormal Labs 02/25/18 02/25/18 02/25/18 11:36 11:36 11:36 RBC 1.96 L Hgb 4.8 L* D Hct 16.5 L* MCH 24.5 L MCHC 29.0 L RDW 17.2 H Neutrophils # 7.8 H Sodium Potassium Chloride 108 H Carbon Dioxide BUN 33 H Creatinine 1.17 H Glucose 136 H POC Glucose (mg/dL) Calcium Total Bilirubin Total Creatine Kinase CK-MB (CK-2) Troponin I 0.125 H* Total Protein 5.9 L Albumin 3.2 L Triglycerides HDL Cholesterol Stool Occult Blood Crossmatch 02/25/18 02/25/18 02/26/18 12:59 13:24 01:43 RBC Hgb Hct MCH MCHC RDW Neutrophils # Sodium Potassium Chloride Carbon Dioxide BUN Creatinine Glucose POC Glucose (mg/dL) Calcium Total Bilirubin Total Creatine Kinase 150 H CK-MB (CK-2) 8.6 H Troponin I 3.790 H* Total Protein Albumin Triglycerides HDL Cholesterol Stool Occult Blood Positive H Crossmatch See Detail 02/26/18 02/26/18 02/26/18 01:43 01:43 09:35 RBC 2.84 L Hgb 7.9 L D Hct 25.3 L MCH MCHC RDW 15.6 H Neutrophils # 7.9 H Sodium 135 L Potassium 5.3 H Chloride 108 H Carbon Dioxide 19 L BUN 31 H Creatinine Glucose 145 H POC Glucose (mg/dL) 178 H Calcium 8.3 L Total Bilirubin 1.4 H Total Creatine Kinase CK-MB (CK-2) Troponin I Total Protein 5.9 L Albumin 3.1 L Triglycerides 178 H HDL Cholesterol 35 L Stool Occult Blood Crossmatch 02/26/18 11:55 RBC Hgb Hct MCH MCHC RDW Neutrophils # Sodium Potassium Chloride Carbon Dioxide BUN Creatinine Glucose POC Glucose (mg/dL) 131 H Calcium Total Bilirubin Total Creatine Kinase CK-MB (CK-2) Troponin I Total Protein Albumin Triglycerides HDL Cholesterol Stool Occult Blood Crossmatch - Diagnostic Findings Chest x-ray: image reviewed (Mild pulmonary vascular prominence, otherwise unremarkable, there is moderate cardiomegaly.) Assessment and Plan Assessment: Impression: 1 acute non-ST elevation myocardial infarction in a patient with known history of severe coronary artery disease, triggered by profound anemia secondary to GI bleeding. Again most likely triggered by the fact that the patient is on anticoagulation therapy for her underlying coronary artery disease and underlying atrial fibrillation. 2 severe anemia secondary to GI blood losses., Patient is yet to be seen by gastroenterology for possible diagnostic studies. In the meantime patient is on Protonix, and her anticoagulation therapy is on hold. 3 chronic kidney disease stage III, sees nephrology on a regular basis. 4 history of nephrolithiasis, lithotripsy, and ureteral stent placement. 5 history of paroxysmal atrial fibrillation. Previous ablation. 6 history of hypertension 7 history of hypothyroidism on replacement therapy 8 history of mild intermittent asthma presently inactive 9 history of type 2 diabetes 10 history of dyslipidemia. 11 history of pulmonary embolism. Recommendation: Agree with the present treatment plan, hold anticoagulation therapy, GI to evaluate, cardiology to readdress the issue of her underlying coronary artery disease and whether the patient will eventually need to be seen by cardiac surgery. In the past the patient was felt to be a poor surgical candidate. Time with Patient: Greater than 30
[2018-02-26 12:54] LABS: Anisocytosis Slight; HCT 24.6 % (34.0-46.0); HGB 7.7 gm/dL (11.4-16.0); Hypochromasia Marked; MCH 26.7 pg (25.0-35.0); MCHC 31.5 g/dL (31.0-37.0); MCV 84.8 fL (80.0-100.0); Mean Platelet Volume 6.8; Platelet Count 210 k/uL (150-450); Poikilocytosis Marked; RDW 16.4 % (11.5-15.5); WBC 9.1 k/uL (3.8-10.6)
[2018-02-26] MEDS ORDERED: BISACODYL 5 MG TABLET.DR PO STA (12:58)
[2018-02-26] MEDS ORDERED: PEG 3350-NA SULF,BICARB,CL/KCL 4,000 ML BOTTLE PO ONE (13:03)
--- NOTE | 2018-02-26 13:22 | P.PN ---
Subjective Progress Note Date: 02/26/18 62-year-old obese female one of my patient with multiple medical problem known to have history of diabetes hypertension hyperlipidemia coronary disease post angioplasty and stent placement in the past, also history of pulmonary embolism paroxysmal atrophy fibrillation with ablation still on anticoagulation. Patient not seen Dr. Deluca, seen Dr. Taylor cardiology regular basis also had seen urology in the past for history of kidney stone. On antibiotic prophylaxis with nitrofurantoin Patient comes in to the emergency room secondary to chest discomfort over the past 1 month, increasing in intensity, radiating to the left arm, also with shortness of breath this man exertion, nausea, patient denies any abdominal pain vomiting or diarrhea, no fever no chills no cough. Patient denies any melena hematochezia, however when seen in the emergency room, she is significantly anemic, patient is on Xarelto at any medication changes, next Emergency room, EKG shows sinus tach cardia 106, no acute ST-T wave changes, hemoglobin was 4.8, previous off 7.1, potassium of 5.1, creatinine of 1.17, glucose 136, liver function tests normal, troponins 0.125 Xarelto on hold secondary to cyclical secondary to severe anemia, consults with cardiology and GI, blood is positive. Total of 3 units of packed red blood cells to be given today for hemoglobin of 4, expected hemoglobin rise to be around 7 with a 3 units 02/26: Patient is resting comfortably in bed. She still is having episodes of orthopnea. Patient denies cough or pain at this time. She has had a total of 3 rbc's completed her initial hemoglobin was 4.8 hemoglobin at this time is 7.7. We have stopped her blood thinner at this time. She has been evaluated by GI and the plan is for them to perform a upper and lower scope tomorrow. Patient is complaining of some constipation. She does have history of black stool however she is on iron replacement. Patient has a history of blood clots her last pulmonary embolism was in February 2017. Patient is also complaining of right sided jaw pain which has been going on for about 6 months initially it was thought to be TMJ however patient sleeps with her mouth open. Potassium 5.3 , chloride 108 BUN 31, creatinine 1.03, troponin 3.790 Review of Systems: Constitutional: Denies fatigue, Denies chills, Denies fever Eyes: denies blurred vision, denies pain Ears, nose, mouth and throat: Denies headache, Denies sore throat Cardiovascular: Reports decreased exercise tolerance, Reports dyspnea on lying flat, Denies chest pain, Denies lightheadedness, Denies shortness of breath, Denies syncope Respiratory: Denies cough, Denies cough with sputum, Denies dyspnea, Denies excessive sputum, Denies hemoptysis, Denies home oxygen, Denies wheezing Gastrointestinal: Denies abdominal pain, Denies diarrhea, Denies nausea, Denies vomiting reports constipation Genitourinary: Denies dysuria Musculoskeletal: Denies myalgias Integumentary: Denies pruritus, Denies rash Neurological: Denies numbness, Denies weakness Psychiatric: Denies anxiety, Denies depression Endocrine: Denies fatigue, Denies weight change Objective - Vital Signs Vital signs: Vital Signs Temp 98.5 F 02/26/18 09:00 Pulse 82 02/26/18 11:00 Resp 15 02/26/18 11:00 BP 127/70 02/26/18 11:00 Pulse Ox 96 02/26/18 11:00 Intake & Output 02/25/18 02/26/18 02/26/18 18:59 06:59 18:59 Intake Total 860 620 Output Total 225 194 4726 Balance 460 -150 -1250 Weight 119.748 kg 121.2 kg Intake: Oral 240 Blood Product 620 620 Rc As-1 Unit 0 310 [id number] Rc As-1 Unit 310 [id number] Rc Irr As1 Unit 310 [id number] Output: Urine 830 937 6331 Uretheral (Corbin) 200 Other: Voiding Method Indwelling Catheter Indwelling Catheter Indwelling Catheter - Constitutional General appearance: Present: cooperative, no acute distress, obese - EENT Eyes: Present: EOMI, PERRLA, dentition normal ENT: Present: hearing grossly normal, normal oropharynx - Neck Neck: Present: normal ROM. Absent: lymphadenopathy, rigidity - Respiratory Respiratory: bilateral: CTA, negative: diminished, dullness, rales, rhonchi, wheezing - Cardiovascular Rhythm: irregularly irregular Heart sounds: normal: S1, S2 Abnormal Heart Sounds: Present: systolic murmur. Absent: diastolic murmur, rub , S3 Gallop, S4 Gallop, click, other - Gastrointestinal General gastrointestinal: Present: normal bowel sounds, soft. Absent: organomegaly, splenomegaly, tenderness - Genitourinary Genitourinary Comment(s): Insulin catheter in place draining clear yellow urine dependently - Integumentary Integumentary: Present: normal turgor, pale - Neurologic Neurologic: Present: CNII-XII intact - Musculoskeletal Musculoskeletal: Present: generalized weakness, strength equal bilaterally - Psychiatric Psychiatric: Present: A&O x's 3, appropriate affect, intact judgment & insight - Labs CBC & Chem 7: 02/26/18 12:14 02/26/18 01:43 Labs: Abnormal Lab Results - Last 24 Hours (Table) 02/25/18 02/25/18 02/26/18 Range/Units 12:59 13:24 01:43 RBC (3.80-5.40) m/uL Hgb (11.4-16.0) gm/dL Hct (34.0-46.0) % RDW (11.5-15.5) % Neutrophils # (1.3-7.7) k/uL Sodium (137-145) mmol/L Potassium (3.5-5.1) mmol/L Chloride (98-107) mmol/L Carbon Dioxide (22-30) mmol/L BUN (7-17) mg/dL Glucose (74-99) mg/dL POC Glucose (mg/dL) (75-99) mg/dL Calcium (8.4-10.2) mg/dL Total Bilirubin (0.2-1.3) mg/dL Total Creatine Kinase 150 H (30-135) U/L CK-MB (CK-2) 8.6 H (0.0-2.4) ng/mL Troponin I 3.790 H* (0.000-0.034) ng/mL Total Protein (6.3-8.2) g/dL Albumin (3.5-5.0) g/dL Triglycerides (<150) mg/dL HDL Cholesterol (40-60) mg/dL Stool Occult Blood Positive H (Negative) Crossmatch See Detail 02/26/18 02/26/18 02/26/18 Range/Units 01:43 01:43 09:35 RBC 2.84 L (3.80-5.40) m/uL Hgb 7.9 L D (11.4-16.0) gm/dL Hct 25.3 L (34.0-46.0) % RDW 15.6 H (11.5-15.5) % Neutrophils # 7.9 H (1.3-7.7) k/uL Sodium 135 L (137-145) mmol/L Potassium 5.3 H (3.5-5.1) mmol/L Chloride 108 H (98-107) mmol/L Carbon Dioxide 19 L (22-30) mmol/L BUN 31 H (7-17) mg/dL Glucose 145 H (74-99) mg/dL POC Glucose (mg/dL) 178 H (75-99) mg/dL Calcium 8.3 L (8.4-10.2) mg/dL Total Bilirubin 1.4 H (0.2-1.3) mg/dL Total Creatine Kinase (30-135) U/L CK-MB (CK-2) (0.0-2.4) ng/mL Troponin I (0.000-0.034) ng/mL Total Protein 5.9 L (6.3-8.2) g/dL Albumin 3.1 L (3.5-5.0) g/dL Triglycerides 178 H (<150) mg/dL HDL Cholesterol 35 L (40-60) mg/dL Stool Occult Blood (Negative) Crossmatch 02/26/18 02/26/18 Range/Units 11:55 12:14 RBC 2.90 L (3.80-5.40) m/uL Hgb 7.7 L (11.4-16.0) gm/dL Hct 24.6 L (34.0-46.0) % RDW 16.4 H (11.5-15.5) % Neutrophils # (1.3-7.7) k/uL Sodium (137-145) mmol/L Potassium (3.5-5.1) mmol/L Chloride (98-107) mmol/L Carbon Dioxide (22-30) mmol/L BUN (7-17) mg/dL Glucose (74-99) mg/dL POC Glucose (mg/dL) 131 H (75-99) mg/dL Calcium (8.4-10.2) mg/dL Total Bilirubin (0.2-1.3) mg/dL Total Creatine Kinase (30-135) U/L CK-MB (CK-2) (0.0-2.4) ng/mL Troponin I (0.000-0.034) ng/mL Total Protein (6.3-8.2) g/dL Albumin (3.5-5.0) g/dL Triglycerides (<150) mg/dL HDL Cholesterol (40-60) mg/dL Stool Occult Blood (Negative) Crossmatch Assessment and Plan Plan: 1. Severe anemia, symptomatic with dyspnea on exertion, chest pain most likely blood losses from the GI tract, GI consult appreciated. Patient will be scheduled for a upper and lower scope tomorrow. 3 units of packed red blood cells completed. Hemoglobin at 7.7. 2 chest pain most likely secondary to demand ischemia mismatch from anemia, Patient is known to have history of coronary disease with multiple angioplasty and stent CK with troponin 3 will be done repeat EKG We'll reconsult cardiology 3 history of large kidney stone in the right side with obstructive uropathy and hydronephrosis Y urostomy and lithotripsy, history of pyelonephritis, resolved follows with urology outpatient 4 history of pulmonary embolism: Has been on anticoagulation with Xarelto, hold anticoagulant medications 5 A. fib with RVR: Post ablation still on blood thinner medication and beta go. He would hold off anticoagulation Xarelto secondary to GI bleeding 6 history of CVA: Stable with no worsening residual at this point. 7 hypertension: Has been on metoprolol 50 mg twice a day and spironolactone. 8 hyperlipidemia: Off statin because of side effect. 9 hypothyroidism: On levothyroxine 112 g. 11 asthma: On albuterol/ipratropium 4 times a day 12 diabetes: Stop Amaryl, start insulin sliding scale weight-based before meals and at bedtime Accu-Chek with sliding scales coverage and be done. 13. Hyperkalemia: Decrease Aldactone to 12.5 mg daily 14. GI prophylaxis: On Pepcid daily. 15 DVT prophylaxis: SCDs in place. CODE STATUS: Full code. Admit patient to status inpatient for more than 2 nights. Impression and plan of care have been directed as dictated by the signing physician. Tammy Claros nurse practitioner acting as scribe for signing physician.
[2018-02-26 13:58] LABS: Erythrocyte Sedimentation Rate 58 mm/hr (0-20)
--- NOTE | 2018-02-26 14:54 | CT ---
EXAMINATION TYPE: CT brain wo/w con DATE OF EXAM: 02/26/2018 COMPARISON: None HISTORY: Trigeminal nerve pain, headache CT DLP: 2118.4 mGycm Automated exposure control for dose reduction was used. CONTRAST: CT scan of the head is performed without and with IV Contrast, patient injected with 100 mL of Isovue 300. FINDINGS: Noncontrast images show no acute intracranial hemorrhage or midline shift. The ventricles and sulci are are mildly prominent. Some low-attenuation periventricular white matter is present. Postcontrast images show no suspicious enhancing intraparenchymal mass. There is 1.3 cm mucous retention cyst or p olyp in posterior left sphenoid sinus. The globes are intact and the visualized sinuses are otherwise clear. IMPRESSION: Mild diffuse age-related cerebral atrophy and chronic small vessel ischemic change. No raymond spicious enhancing mass noted.
[2018-02-26 16:51] LABS: Glucose,Whole Blood 114 mg/dL (75-99)
[2018-02-26 18:49] LABS: Anisocytosis Slight; HCT 24.2 % (34.0-46.0); Hypochromasia Marked; MCH 27.5 pg (25.0-35.0); MCHC 33.3 g/dL (31.0-37.0); MCV 82.7 fL (80.0-100.0); Mean Platelet Volume 6.8; Platelet Count 247 k/uL (150-450); Poikilocytosis Marked; RBC 2.93 m/uL (3.80-5.40); RDW 16.3 % (11.5-15.5); WBC 11.2 k/uL (3.8-10.6)
[2018-02-26 20:31] LABS: Glucose,Whole Blood 101 mg/dL (75-99)
[2018-02-26] MEDS: PRAVASTATIN SODIUM 40 MG TAB PO SCH (22:25)
[2018-02-26] MEDS: MONTELUKAST 10 MG TAB PO SCH (22:26)
[2018-02-27] MEDS: NITROGLYCERIN OINT 1 INCH/GM PACKET TOPICAL SCH (00:37)
[2018-02-27 01:10] LABS: Anisocytosis Slight; HCT 25.1 % (34.0-46.0); HGB 7.7 gm/dL (11.4-16.0); Hypochromasia Marked; MCH 26.7 pg (25.0-35.0); MCHC 30.8 g/dL (31.0-37.0); MCV 86.8 fL (80.0-100.0); Mean Platelet Volume 6.2; Platelet Count 263 k/uL (150-450); Poikilocytosis Marked; RBC 2.89 m/uL (3.80-5.40); RDW 16.3 % (11.5-15.5); WBC 9.7 k/uL (3.8-10.6)
[2018-02-27 06:00] LABS: Anisocytosis Slight; HCT 26.1 % (34.0-46.0); HGB 8.1 gm/dL (11.4-16.0); Hypochromasia Marked; MCH 27.5 pg (25.0-35.0); MCHC 31.1 g/dL (31.0-37.0); MCV 88.6 fL (80.0-100.0); Mean Platelet Volume 6.6; Platelet Count 263 k/uL (150-450); Poikilocytosis Marked; RBC 2.95 m/uL (3.80-5.40); RDW 16.3 % (11.5-15.5); WBC 9.2 k/uL (3.8-10.6)
[2018-02-27 06:11] LABS: Albumin 3.3 g/dL (3.5-5.0); Calcium 8.6 mg/dL (8.4-10.2); Potassium 4.7 mmol/L (3.5-5.1); Total Bilirubin 0.6 mg/dL (0.2-1.3); Total Protein 6.1 g/dL (6.3-8.2)
[2018-02-27 07:08] LABS: Glucose,Whole Blood 131 mg/dL (75-99)
[2018-02-27] MEDS: ALPRAZolam 0.25 MG TAB PO PRN (08:11)
[2018-02-27] MEDS: HYDROcodone/APAP 5-325MG 1 EACH TAB PO PRN ×2 (08:11→15:03)
[2018-02-27] MEDS: INSULIN ASPART 100 UNIT/ML 1 ML 10 ML VIAL SQ SCH ×3 (08:13→22:18)
[2018-02-27] MEDS: BUDESONIDE 0.5 MG/2 ML NEBU INHALATION SCH ×2 (08:19→19:50)
[2018-02-27] MEDS ORDERED: IV FLUID CONTINUATION 1,000 ML IV ONE (08:51)
[2018-02-27] MEDS ORDERED: PROPOFOL 10 MG/ML 20 ML VIAL IV ONE (09:14)
--- NOTE | 2018-02-27 09:20 | P.CONS ---
History of Present Illness - Reason for Consult Consult date: 02/26/18 Anemia - History of Present Illness The patient is a 62-year-old female who presented to the emergency room complaining of chest pain that she has been experiencing on and off for the last month or so. She was having also dyspnea on exertion. Her pain was radiating to the left arm and she also reported intermittent episodes of black stools. She was found to have profound anemia with a hemoglobin of 4.8. We are asked to see her regarding this problem. She has been receiving transfusions since admission to the ICU. The patient has multiple medical problems and has history of atherosclerotic heart disease and had prior stent placed in the past and she takes Plavix and Xarelto. There is also history of chronic renal disease stage III and nephrolithiasis with urinary tear or stent placement. Had prior cardiac surgery but is currently considered high risk for surgery. She denied hematemesis or hematochezia. No recent upper endoscopy or colonoscopy. She had previous GI bleeding and she believes she had peptic ulcer disease. Review of Systems Constitutional: Denies fever, chills or unintentional weight loss Neurologic: No history of headaches, double vision or sensory or motor changes Cardiopulmonary: No chest pains, shortness of breath or palpitations Gastrointestinal: See present illness above Genitourinary: No hematuria, dysuria or frequency Skin: No rashes Endocrine: No polyuria or polydipsia Musculoskeletal: No joint complaints or swelling Hematologic: No bleeding tendency Psychiatric: No history of anxiety or depression Past Medical History Past Medical History: Atrial Fibrillation, Asthma, Coronary Artery Disease (CAD) , Heart Failure, CVA/TIA, Diabetes Mellitus, Deep Vein Thrombosis (DVT), Fibromyalgia, Hyperlipidemia, Hypertension, Myocardial Infarction (NE), Osteoarthritis (OA), Pulmonary Embolus (PE), Skin Disorder, Thyroid Disorder Additional Past Medical History / Comment(s): c/o blood in stool last few days and for past 6 months has had a constant weithed heaviness rt side of head "kidney stones,breakdown on buttocks,pain below rt breast,hx rt side dominant, BOTTOM 1/3 HEART DAMAGED-HEART MURMUR,cardiomyopathy,pt states "mult mi's, CHRONIC CONSTIPATION, ECZEMA-SKIN VERY DRY,SINUS HEADACHES, HX ANEMIA, HYST in 2013-was told cancer, gout. stage III kidney disease, past kidneys tone, steroids Sept 2018,uses a cane-unable to stand for more than 3-5 minutes reg to lower back pain. 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.FEET- NUMBNESS IF STANDS FOR MORE THAN 5, MINUTES,STROKE @ AGE 39-MILD weakness LT SIDE uses cane when up-AFFECTED FACE- LT EYELID, neuropathy, lt hand tendonitis,stg three kidney disease, kidney stones, mult cva-left side weakness,eye disorder fuchs corneal dystrophy Last Myocardial Infarction Date:: UNKNOWN History of Any Multi-Drug Resistant Organisms: None Reported Past Surgical History: Appendectomy, Cardiac Ablation, Cholecystectomy, Heart Catheterization, Heart Catheterization With Stent, Hysterectomy Additional Past Surgical History / Comment(s): PARTIAL HYSTERECTOMY 03/18/14 @ [facility]. CATARACT BLACK. WITH IMPLANTS. HEART CATH X 3 TOTAL 3 STENTS, lithotripsy,kidney stents-since removed. Past Anesthesia/Blood Transfusion Reactions: Motion Sickness Additional Past Anesthesia/Blood Transfusion Reaction / Comm: no hx blood transfusion Date of Last Stent Placement:: UNKNOWN Smoking Status: Former smoker - Past Family History Father Additional Family Medical History / Comment(s): "HARDENEING OF THE ARTERIES AT AGE 41. SMOKED AND DRANK ETOH Mother Family Medical History: Cancer Additional Family Medical History / Comment(s): "cyst that ruptured between bowel and bladder" Medications and Allergies Home Medications Medication Instructions Recorded Confirmed Type Isosorbide Mononitrate ER [Imdur] 30 mg PO DAILY@0800 05/12/14 02/25/18 History Nitroglycerin Sl Tabs [Nitrostat] 0.4 mg SUBLINGUAL Q5M PRN tab 01/14/17 Rx Famotidine [Pepcid] 20 mg PO BID 08/28/17 02/25/18 History Ferrous Sulfate [Iron (65 MG 325 mg PO BID@0800,1700 08/28/17 02/25/18 History Elemental)] Furosemide [Lasix] 40 mg PO DAILY@0600 08/28/17 02/25/18 History Glimepiride [Amaryl] 1 mg PO AC-BID 08/28/17 02/25/18 History Ipratropium-Albuterol Nebulize 3 ml INHALATION RT-QID PRN 08/28/17 02/25/18 History [Duoneb 0.5 mg-3 mg/3 ml Soln] Levothyroxine Sodium [Synthroid] 112 mcg PO DAILY@0600 08/28/17 02/25/18 History Montelukast [Singulair] 10 mg PO HS@2100 08/28/17 02/25/18 History Spironolactone [Aldactone] 25 mg PO DAILY@0800 08/28/17 02/25/18 History Rivaroxaban [Xarelto] 20 mg PO W/SUPPER 09/03/17 02/25/18 History ALPRAZolam [Xanax] 0.25 mg PO TID PRN 01/21/18 02/25/18 History Budesonide [Pulmicort] 0.5 mg INHALATION RT-BID PRN 01/21/18 02/25/18 History Cetirizine HCl [Zyrtec] 10 mg PO DAILY 01/21/18 02/25/18 History Clopidogrel Bisulfate [Plavix] 75 mg PO DAILY 01/21/18 02/25/18 History Cyclobenzaprine [Flexeril] 5 mg PO BID PRN 01/21/18 02/25/18 History Docusate [Colace] 100 mg PO BID PRN 01/21/18 02/25/18 History Fluticasone Nasal Lamar [Flonase 2 spr EA NOSTRIL BID PRN 01/21/18 02/25/18 History Nasal Lamar] Meloxicam 15 mg PO DAILY 01/21/18 02/25/18 History Nitrofurantoin Macrocrystal 100 mg PO DAILY 01/21/18 02/25/18 History [Macrodantin] Lisinopril [Zestril] 10 mg PO DAILY 02/25/18 02/25/18 History Loratadine [Claritin] 10 mg PO DAILY PRN 02/25/18 02/25/18 History Metoprolol Tartrate [Lopressor] 25 mg PO BID 02/25/18 02/25/18 History Allergies Allergy/AdvReac Type Severity Reaction Status Date / Time latex Allergy Rash/Hives Verified 02/25/18 09:51 Milk Containing Products AdvReac THRUSH Verified 02/25/18 09:51 [Dairy] Tetracyclines AdvReac YEAST Verified 02/25/18 09:51 INFECTION- PREFERS NOT TO TAKE ENVIRONMENTAL ALLERGIES Allergy SINUS Uncoded 02/25/18 08:47 SYMPTOMS-GRASS TREES,DUST,POLLENS,MOLD Physical Exam Vitals: Vital Signs Temp Pulse Resp BP Pulse Ox 02/26/18 09:00 98.5 F 79 18 114/55 96 02/26/18 08:13 82 02/26/18 08:02 81 02/26/18 08:00 82 26 H 113/64 97 02/26/18 07:00 76 14 113/64 96 02/26/18 06:30 69 13 113/64 97 02/26/18 06:00 69 11 L 113/64 96 02/26/18 05:30 65 11 L 96 02/26/18 05:00 69 13 96 02/26/18 04:30 70 12 98 02/26/18 04:00 98.2 F 66 11 L 124/54 97 02/26/18 03:30 68 11 L 124/54 02/26/18 03:00 77 19 124/54 02/26/18 02:30 78 11 L 124/54 02/26/18 02:00 76 13 124/54 02/26/18 01:30 76 15 124/54 02/26/18 01:00 85 25 H 124/54 02/26/18 00:30 74 17 124/54 96 02/26/18 00:00 81 21 111/45 96 02/25/18 23:30 73 18 111/45 95 02/25/18 23:16 72 18 111/45 96 02/25/18 23:00 71 17 111/45 95 02/25/18 22:35 98.3 F 72 17 97 02/25/18 22:30 69 15 111/45 94 L 02/25/18 22:05 98.4 F 71 13 111/45 95 02/25/18 22:00 77 17 111/45 96 02/25/18 21:55 97.9 F 78 15 111/50 02/25/18 21:30 92 14 128/60 97 02/25/18 21:00 99 20 128/60 96 02/25/18 20:45 98.1 F 80 17 128/60 02/25/18 20:30 96 15 128/60 99 18 20:26 96 02/25/18 20:19 98 98 02/25/18 20:00 98.1 F 98 13 121/65 96 11/21/18 19:30 98 23 121/65 97 02/25/18 19:14 98.0 F 85 24 124/62 02/25/18 19:00 105 H 21 121/65 98 02/25/18 18:44 97.8 F 95 22 128/72 02/25/18 18:34 97.8 F 105 H 21 121/65 99 02/25/18 18:30 105 H 17 121/65 98 02/25/18 18:05 97.5 F L 75 16 128/48 02/25/18 18:00 100 13 126/60 99 02/25/18 17:30 98 15 126/60 99 02/25/18 17:00 98.0 F 93 10 L 126/60 99 02/25/18 16:30 125/60 02/25/18 16:28 98.2 F 89 20 132/66 99 02/25/18 16:00 90 18 136/74 100 02/25/18 15:58 98.2 F 92 20 125/60 99 02/25/18 15:48 98.1 F 96 18 136/74 99 02/25/18 15:46 98.1 F 87 18 138/89 02/25/18 15:30 101 H 18 139/81 100 02/25/18 15:00 93 18 100 02/25/18 14:30 91 18 100 02/25/18 14:00 92 18 120/76 99 02/25/18 13:30 94 18 106/57 100 02/25/18 13:00 87 18 100/61 100 02/25/18 12:30 89 18 127/52 100 02/25/18 12:00 93 18 127/44 100 02/25/18 11:30 96 15 107/71 100 02/25/18 11:00 98 16 115/44 100 02/25/18 10:39 98 18 127/72 97 Intake and Output 02/25/18 02/26/18 02/26/18 22:59 06:59 14:59 Intake Total 1170 310 Output Total 700 470 700 Balance 470 -160 -700 Intake: Oral 240 Blood Product 930 310 Rc As-1 Unit 310 [id number] Rc As-1 Unit 310 [id number] Rc Irr As1 Unit 0 310 [id number] Output: Urine 700 470 700 Uretheral (Corbin) 200 Other: Voiding Method Indwelling Catheter Indwelling Catheter Indwelling Catheter Weight 121.2 kg General: Appeared stated age, very pleasant in no acute distress Head and neck: Normocephalic and atraumatic, conjunctivae pink and sclerae not icteric, mucous membranes moist and pink. No masses in the neck or clavicular shifts Lungs: Clear to auscultation with no dullness to percussion Heart: Regular, no abnormal sounds, murmurs, gallops or friction Abdomen: Soft, no masses or organomegalies. No tenderness, bowel sounds present Extremities: No clubbing, cyanosis or edema Neurologic: Alert and oriented 3. Cranial nerves grossly intact. No gross sensory or motor abnormalities Results CBC & Chem 7: 02/27/18 05:30 02/27/18 05:30 Labs: Abnormal Lab Results - Last 24 Hours (Table) 02/25/18 02/25/18 02/25/18 Range/Units 11:36 11:36 11:36 RBC 1.96 L (3.80-5.40) m/uL Hgb 4.8 L* D (11.4-16.0) gm/dL Hct 16.5 L* (34.0-46.0) % MCH 24.5 L (25.0-35.0) pg MCHC 29.0 L (31.0-37.0) g/dL RDW 17.2 H (11.5-15.5) % Neutrophils # 7.8 H (1.3-7.7) k/uL Sodium (137-145) mmol/L Potassium (3.5-5.1) mmol/L Chloride 108 H (98-107) mmol/L Carbon Dioxide (22-30) mmol/L BUN 33 H (7-17) mg/dL Creatinine 1.17 H (0.52-1.04) mg/dL Glucose 136 H (74-99) mg/dL Calcium (8.4-10.2) mg/dL Total Bilirubin (0.2-1.3) mg/dL Total Creatine Kinase (30-135) U/L CK-MB (CK-2) (0.0-2.4) ng/mL Troponin I 0.125 H* (0.000-0.034) ng/mL Total Protein 5.9 L (6.3-8.2) g/dL Albumin 3.2 L (3.5-5.0) g/dL Triglycerides (<150) mg/dL HDL Cholesterol (40-60) mg/dL Stool Occult Blood (Negative) Crossmatch 02/25/18 02/25/18 02/26/18 Range/Units 12:59 13:24 01:43 RBC (3.80-5.40) m/uL Hgb (11.4-16.0) gm/dL Hct (34.0-46.0) % MCH (25.0-35.0) pg MCHC (31.0-37.0) g/dL RDW (11.5-15.5) % Neutrophils # (1.3-7.7) k/uL Sodium (137-145) mmol/L Potassium (3.5-5.1) mmol/L Chloride (98-107) mmol/L Carbon Dioxide (22-30) mmol/L BUN (7-17) mg/dL Creatinine (0.52-1.04) mg/dL Glucose (74-99) mg/dL Calcium (8.4-10.2) mg/dL Total Bilirubin (0.2-1.3) mg/dL Total Creatine Kinase 150 H (30-135) U/L CK-MB (CK-2) 8.6 H (0.0-2.4) ng/mL Troponin I 3.790 H* (0.000-0.034) ng/mL Total Protein (6.3-8.2) g/dL Albumin (3.5-5.0) g/dL Triglycerides (<150) mg/dL HDL Cholesterol (40-60) mg/dL Stool Occult Blood Positive H (Negative) Crossmatch See Detail 02/26/18 02/26/18 Range/Units 01:43 01:43 RBC 2.84 L (3.80-5.40) m/uL Hgb 7.9 L D (11.4-16.0) gm/dL Hct 25.3 L (34.0-46.0) % MCH (25.0-35.0) pg MCHC (31.0-37.0) g/dL RDW 15.6 H (11.5-15.5) % Neutrophils # 7.9 H (1.3-7.7) k/uL Sodium 135 L (137-145) mmol/L Potassium 5.3 H (3.5-5.1) mmol/L Chloride 108 H (98-107) mmol/L Carbon Dioxide 19 L (22-30) mmol/L BUN 31 H (7-17) mg/dL Creatinine (0.52-1.04) mg/dL Glucose 145 H (74-99) mg/dL Calcium 8.3 L (8.4-10.2) mg/dL Total Bilirubin 1.4 H (0.2-1.3) mg/dL Total Creatine Kinase (30-135) U/L CK-MB (CK-2) (0.0-2.4) ng/mL Troponin I (0.000-0.034) ng/mL Total Protein 5.9 L (6.3-8.2) g/dL Albumin 3.1 L (3.5-5.0) g/dL Triglycerides 178 H (<150) mg/dL HDL Cholesterol 35 L (40-60) mg/dL Stool Occult Blood (Negative) Crossmatch Assessment and Plan Assessment: Symptomatic profound anemia and black stools likely related to a GI source of bleeding. Plan: I reviewed her current management. We'll proceed with EGD and colonoscopy tomorrow morning.
--- NOTE | 2018-02-27 09:56 | P.PCN ---
Date of Procedure: 02/27/18 Procedure(s) Performed: Procedures: 1. Esophagogastroduodenoscopy. 2. Total colonoscopy. Preoperative diagnosis: Symptomatic profound anemia and suspected GI bleeding. Postoperative diagnosis: Normal upper endoscopy and normal colonoscopy. Preparation: GoLYTELY prep. Sedation: Was provided by anesthesia. Brief clinical history: The patient is a 62-year-old female who presented to the emergency room complaining of chest pain that she has been experiencing on and off for the last month or so. She was having also dyspnea on exertion. Her pain was radiating to the left arm and she also reported intermittent episodes of black stools. She was found to have profound anemia with a hemoglobin of 4.8. We are asked to see her regarding this problem. She has received blood transfusions and her hemoglobin is up to 8.1. The patient has multiple medical problems and has history of atherosclerotic heart disease and had prior stent placed in the past and she takes Plavix and Xarelto. There is also history of chronic renal disease stage III and nephrolithiasis with urinary tear or stent placement. Had prior cardiac surgery but is currently considered high risk for surgery. She denied hematemesis or hematochezia. No recent upper endoscopy or colonoscopy. She had previous GI bleeding and she believes she had peptic ulcer disease. This evaluation is to assess for a source of bleeding in the upper or lower GI tract. Procedure: With the patient on her left lateral decubitus position and after informed consent and adequate sedation, I passed the Olympus-GIF 160 video upper endoscope through the cricopharyngeus down the esophagus. GE junction was around 40 cm from the incisors. There was no definite hiatal hernia or any obvious esophagitis or complicated reflux disease or any mucosal tears or bleeding. The endoscope was then passed into the stomach which was insufflated with air and inspected in detail including the retroflex view in the cardia. Finally, the endoscope was passed through the pylorus into the duodenum. The stomach appeared within normal limits without any ulcers or potential sources of bleeding or any evidence of bleeding. Pyloric channel, duodenal bulb, post bulbar area and descending duodenum appeared within normal limits. No biopsies were obtained then the endoscope was withdrawn and then I proceeded with the colonoscopy. Perianal area did not show any fissures or fistulas. There were no masses felt on digital rectal examination. The Olympus CFH 190L video colonoscope was then inserted in the rectum in the usual fashion and advanced to the cecum. The mucosa appeared healthy. No obvious polyps or tumors were seen or any angiodysplasias or bleeding. No obvious diverticular disease. All fecal material was brown greenish in color. The patient tolerated the procedure well. Plan: The patient was reassured. Because of the significance of her anemia and the absence of any findings on these exams today, we would proceed with capsule endoscopy today.
[2018-02-27 10:51] LABS: Hemoglobin A1C 5.8 % (4.0-6.0)
--- NOTE | 2018-02-27 11:01 | CONS ---
CONSULTATION DATE OF CONSULTATION: 02/26/2018 CHIEF COMPLAINT: Facial discomfort/headache. HISTORY OF PRESENT ILLNESS: Mrs. Oconnell is a pleasant 62-year-old, female, who is being evaluated today on 02/26/2018 by the neurology service per the request of Dr. Deluca for a headache. The patient states that she has been having some discomfort involving her right temporal region and right facial region. Her symptoms started about 6 months ago with no significant injury or trauma to account for this. She denies any numbness or tingling. She was also complaining of some blurred vision that comes and goes, but this started more recently. She does report a previous history of stroke with residual left-sided weakness that has mostly resolved according to her. The patient was actually brought into [facility] with the complaints of chest pain. She was found to be significantly anemic and her stool occult was positive. GI was consulted and she is being worked up for GI bleed. Her CBC showed a hemoglobin of 7.9 and hematocrit of 25%. Her fasting lipid panel was normal except for slightly elevated triglycerides at 178. Regarding her facial discomfort, she denies knowing any exacerbating or alleviating factors. She rates the discomfort at 3 to 4 out of [address] scan of the brain has been ordered but the results are pending. PAST MEDICAL HISTORY: Stroke, atrial fibrillation, asthma, coronary artery disease, heart failure, diabetes, deep venous thrombosis, fibromyalgia, dyslipidemia, hypertension, history of myocardial infarction, arthritis, history of pulmonary embolism, hypothyroidism, nephrolithiasis, cardiomyopathy, neuropathy, chronic renal disease, history of appendectomy, cardiac ablation, cholecystectomy, coronary artery stent placement, hysterectomy. She also reports a history of depression. SOCIAL HISTORY: The patient is a former smoker. She denies any alcohol or drug use. FAMILY HISTORY: Positive for cancer. HOME MEDICATIONS: Reviewed in the chart. ALLERGIES: LATEX, DAIRY PRODUCTS, TETRACYCLINE, ENVIRONMENTAL ALLERGIES. REVIEW OF SYSTEMS: As mentioned above and otherwise negative. PHYSICAL EXAM: Vital signs show a temperature of 98.5, pulse 82, respirations 15, blood pressure 127/70. GENERAL APPEARANCE: The patient is a well-developed female, who appears to be in no acute distress. HEENT: Normocephalic, atraumatic, facial asymmetry is noticed in her left eyelid but this is postsurgical changes and chronic. NECK: Supple with no masses felt. CARDIOVASCULAR: Regular rate and rhythm. ABDOMEN: Nontender, nondistended. Extremities showed no edema or clubbing. NEUROLOGICAL EXAM: The patient is awake and oriented x3. Speech and language are normal. Strength is full in all 4 extremities. Sensory exam was normal to light touch in all 4 extremities. Cranial nerve testing showed no sensory deficit. No tenderness to palpation is felt along the right face and no hyperesthesia is noticed. Vision was intact. IMPRESSION: 1. Atypical facial discomfort/pain, right side. 2. Blurred vision, resolved at this time. 3. Gastrointestinal bleeding. 4. Anemia. RECOMMENDATION: The patient's facial discomfort is chronic and atypical. I doubt any neurological etiology for this. Her symptoms are not consistent with any neuralgia as she denies any burning or sharp stabbing pain. At this time, I do not recommend any oral therapy for this. If her symptoms become worse, we could try her on neuropathic analgesics. For now, a CT scan of the brain has been ordered and the results are pending. An ESR and a CRP has also been ordered. Continue the rest of the workup and management. I will continue to follow with you. Further recommendations to follow. Thank you for allowing me to participate in the care of your patient. If you have any questions, please feel free to contact me. MMODL / IJN: [id number] /
[2018-02-27] MEDS ORDERED: SIMETHICONE 40 MG/0.6 ML DROPS 2,000 MG/30 ML BOTTLE PO ONE (11:05)
[2018-02-27] MEDS: PANTOPRAZOLE 40 MG/10 ML VIAL IVP SCH ×2 (11:15→21:52)
[2018-02-27] MEDS: FUROSEMIDE 40 MG TAB PO SCH (11:16)
[2018-02-27] MEDS: METOPROLOL TARTRATE 25 MG TAB PO SCH ×2 (11:16→21:51)
[2018-02-27] MEDS: LISINOPRIL 5 MG TAB PO SCH (11:16)
[2018-02-27] MEDS: ISOSORBIDE MONONITRATE ER 30 MG TAB.ER.24H PO SCH (11:16)
[2018-02-27] MEDS: ARTIFICIAL TEARS-HYPROMELLOSE DROPS 15 ML BTL BOTH EYES PRN (11:43)
--- NOTE | 2018-02-27 12:13 | PN ---
PROGRESS NOTE Mrs. Oconnell is a 62-year-old female who has a known history of coronary artery disease, history of paroxysmal atrial fibrillation who presented with symptoms of chest discomfort and progressive dyspnea. She was noted to be significantly anemic on presentation. She continues to be dyspneic although better. She denies any chest pain. She continued to be in sinus mechanism. She has no dizziness or palpitation. She has no syncope. On the monitor, she is in sinus mechanism. She continues to be on Lasix 40 mg daily, glimepiride, insulin, lisinopril 5 mg daily, metoprolol tartrate 25 mg twice a day, nitro paste 1 inch q.6 hours, and Aldactone 12.5 mg daily. She received transfusion yesterday. PHYSICAL EXAMINATION: Blood pressure 124/50 with the heart rate in the 60s. LUNGS: Clear. HEART: Regular rate and rhythm. S1, S2. No S3 with systolic murmur, ejection type. No diastolic murmur. No rub. ABDOMEN: Soft, nontender. EXTREMITIES: No edema. LAB DATA: Lab data revealed a BUN and creatinine 23 and 1.03. Her hemoglobin is 8.1. IMPRESSION: 1. Severe anemia, workup in progress in that regard. 2. [id number] elevation myocardial infarction triggered by the severe anemia. 3. History of coronary artery disease. 4. History of chronic kidney disease, stable. 5. Paroxysmal atrial fibrillation,remains in sinus mechanism. 6. Status post ureteral stent removal. 7. Diabetes mellitus. 8. Hypertension. 9. Hyperlipidemia. RECOMMENDATION: We will obtain an echocardiogram with Doppler to evaluate the left ventricular systolic function. Continue rest of medical regimen. Follow her renal function. We will await the input of the GI service. I will switch her to oral nitrate. Depending on her progress, further recommendation will be made. MMODL / IJN: [id number] /
[2018-02-27 12:27] LABS: Glucose,Whole Blood 119 mg/dL (75-99)
--- NOTE | 2018-02-27 14:19 | P.PN ---
Subjective Progress Note Date: 02/27/18 Principal diagnosis: Acute non-ST elevation myocardial infarction and acute GI bleeding This is a 62-year-old female with history of multiple medical problems including severe coronary artery disease, multiple stents placed in the past, however the patient was not felt to be a good candidate for coronary artery bypass graft surgery. Apparently she had issues related to her stage III chronic renal failure, and she had issues at the time related to nephrolithiasis and ureteral stent placement. Patient was seen by cardiac surgery, and she was felt to be a high surgical risk, apparently the decision was to treat the patient medically for her ongoing symptoms of angina. Patient has been taking nitroglycerin frequently on a regular basis for intermittent episodes of chest pain. Patient usually sees Dr. Rivera from cardiology. At any rate the patient came in to the emergency room yesterday complaining of chest pain, responded well to nitroglycerin, and her chest pain has been going on and off for the last 1 month. She was also complaining of dyspnea on exertion, radiation of the pain to the left arm, she had intermittent episodes of black stools, and she is on Xarelto she is also on Plavix. At any rate patient hemoglobin was noted to be extremely low. Patient was admitted for blood transfusion, and for further cardiac evaluation. Patient received a total of 3 units of packed RBCs so far since admission, her hemoglobin this morning is 7.9. Her Plavix and Xarelto are presently on hold. Her troponin was noted to be elevated at 3.79. And her stools were positive for Hemoccult blood. Patient was seen by cardiology/Dr. Mallory, and he felt that the patient had non-ST segment elevation myocardial infarction exacerbated by severe anemia with known history of severe coronary artery disease and the patient was non- amenable to percutaneous revascularization and was not felt to be a surgical candidate at a certain time. At any rate patient is in the ICU at present, she continues to have occasional intermittent chest pains, presently no nausea no vomiting no abdominal pain, she did have black stools earlier. Denies any headaches no blurred vision no dizziness. No nausea no vomiting no dysuria and no frequency no urgency. Patient was placed on Protonix, and she will be seen by gastroenterology. Her last colonoscopy was over 10 years ago. Patient never had any history of GI bleeding in the past medical history of peptic ulcer disease, and no history of diverticulosis. Patient was reevaluated today on 02/27/2018, she underwent EGD and colonoscopy, and both came back nondiagnostic. Hence a capsule endoscopy was recommended, and it is being started today. In the meantime the patient's hemoglobin is 8.1 today, and she received a total of 3 units of packed RBCs since admission. Patient denies any shortness of breath, no cough, and no chest pain. Basic metabolic profile is relatively normal. Objective - Vital Signs Vital signs: Vital Signs Temp 98.5 F 02/27/18 12:00 Pulse 58 L 02/27/18 12:00 Resp 9 L 02/27/18 12:00 BP 145/85 02/27/18 12:00 Pulse Ox 93 L 02/27/18 12:00 Intake & Output 02/26/18 02/27/18 02/27/18 18:59 06:59 18:59 Intake Total 50 Output Total 2420 350 315 Balance -2420 -350 -265 Intake: IV 50 Output: Urine 2420 350 315 Other: Voiding Method Indwelling Catheter Indwelling Catheter Indwelling Catheter - Exam Physical Exam: Revealed a 62-year-old female in no distress. Head: Atraumatic normocephalic. HEENT:[Neck is supple.] [No neck masses.] [No thyromegaly.] [No JVD.] Chest: [Clear throughout, no crackles, no rhonchi, no wheezes.] Cardiac Exam: [Normal S1 and S2, no S3 gallop, no murmur.] Abdomen: [Soft, nontender, no megaly, no rebound, no guarding, normal bowel sounds.] Extremities: [No clubbing, no edema, no cyanosis.] Neurological Exam: [No focal neurologic deficit.] Skin: No rashes. Psychiatric: Normal mood, affect and mental status examination. - Labs CBC & Chem 7: 02/27/18 05:30 02/27/18 05:30 Labs: Abnormal Lab Results - Last 24 Hours (Table) 02/26/18 02/26/18 02/26/18 Range/Units 12:14 16:48 18:31 WBC 11.2 H (3.8-10.6) k/uL RBC 2.93 L (3.80-5.40) m/uL Hgb 8.0 L (11.4-16.0) gm/dL Hct 24.2 L (34.0-46.0) % MCHC (31.0-37.0) g/dL RDW 16.3 H (11.5-15.5) % Sodium (137-145) mmol/L Carbon Dioxide (22-30) mmol/L BUN (7-17) mg/dL Glucose (74-99) mg/dL POC Glucose (mg/dL) 114 H (75-99) mg/dL Total Protein (6.3-8.2) g/dL Albumin (3.5-5.0) g/dL VITALY Screen POSITIVE H (NEGATIVE) 02/26/18 02/27/18 02/27/18 Range/Units 20:15 00:43 05:30 WBC (3.8-10.6) k/uL RBC 2.89 L (3.80-5.40) m/uL Hgb 7.7 L (11.4-16.0) gm/dL Hct 25.1 L (34.0-46.0) % MCHC 30.8 L (31.0-37.0) g/dL RDW 16.3 H (11.5-15.5) % Sodium 134 L (137-145) mmol/L Carbon Dioxide 21 L (22-30) mmol/L BUN 23 H (7-17) mg/dL Glucose 133 H (74-99) mg/dL POC Glucose (mg/dL) 101 H (75-99) mg/dL Total Protein 6.1 L (6.3-8.2) g/dL Albumin 3.3 L (3.5-5.0) g/dL VITALY Screen (NEGATIVE) 02/27/18 02/27/18 02/27/18 Range/Units 05:30 07:05 12:16 WBC (3.8-10.6) k/uL RBC 2.95 L (3.80-5.40) m/uL Hgb 8.1 L (11.4-16.0) gm/dL Hct 26.1 L (34.0-46.0) % MCHC (31.0-37.0) g/dL RDW 16.3 H (11.5-15.5) % Sodium (137-145) mmol/L Carbon Dioxide (22-30) mmol/L BUN (7-17) mg/dL Glucose (74-99) mg/dL POC Glucose (mg/dL) 131 H 119 H (75-99) mg/dL Total Protein (6.3-8.2) g/dL Albumin (3.5-5.0) g/dL VITALY Screen (NEGATIVE) Assessment and Plan Assessment: Impression: 1 acute non-ST elevation myocardial infarction in a patient with known history of severe coronary artery disease, triggered by profound anemia secondary to GI bleeding. Again most likely triggered by the fact that the patient is on anticoagulation therapy for her underlying coronary artery disease and underlying atrial fibrillation. 2 severe anemia secondary to GI blood losses., EGD and colonoscopy are both nondiagnostic, hence capsule endoscopy was recommended by gastroenterology. 3 chronic kidney disease stage III, sees nephrology on a regular basis. 4 history of nephrolithiasis, lithotripsy, and ureteral stent placement. 5 history of paroxysmal atrial fibrillation. Previous ablation. 6 history of hypertension 7 history of hypothyroidism on replacement therapy 8 history of mild intermittent asthma presently inactive 9 history of type 2 diabetes 10 history of dyslipidemia. 11 history of pulmonary embolism. Recommendation: Agree with the present treatment plan, hold anticoagulation therapy, continue to monitor in the ICU unless it is felt appropriate to transfer the patient out of the ICU to a monitor bed on selective by cardiology. We'll continue to follow. Time with Patient: Less than 30
[2018-02-27] MEDS: LEVOTHYROXINE 112 MCG TAB PO SCH (15:04)
[2018-02-27] MEDS: NITROFURANTOIN MONOHYD/M-CRYST 100 MG CAP PO SCH (15:05)
[2018-02-27] MEDS: SPIRONOLACTONE 25 MG TAB PO SCH (15:05)
[2018-02-27] MEDS: FERROUS SULFATE 325 MG TAB PO SCH (15:05)
--- NOTE | 2018-02-27 16:45 | P.PN ---
Subjective Progress Note Date: 02/27/18 Progress Note Date: 02/26/18 62-year-old obese female one of my patient with multiple medical problem known to have history of diabetes hypertension hyperlipidemia coronary disease post angioplasty and stent placement in the past, also history of pulmonary embolism paroxysmal atrophy fibrillation with ablation still on anticoagulation. Patient not seen Dr. Deluca, seen Dr. Taylor cardiology regular basis also had seen urology in the past for history of kidney stone. On antibiotic prophylaxis with nitrofurantoin Patient comes in to the emergency room secondary to chest discomfort over the past 1 month, increasing in intensity, radiating to the left arm, also with shortness of breath this man exertion, nausea, patient denies any abdominal pain vomiting or diarrhea, no fever no chills no cough. Patient denies any melena hematochezia, however when seen in the emergency room, she is significantly anemic, patient is on Xarelto at any medication changes, next Emergency room, EKG shows sinus tach cardia 106, no acute ST-T wave changes, hemoglobin was 4.8, previous off 7.1, potassium of 5.1, creatinine of 1.17, glucose 136, liver function tests normal, troponins 0.125 Xarelto on hold secondary to cyclical secondary to severe anemia, consults with cardiology and GI, blood is positive. Total of 3 units of packed red blood cells to be given today for hemoglobin of 4, expected hemoglobin rise to be around 7 with a 3 units 02/26: Patient is resting comfortably in bed. She still is having episodes of orthopnea. Patient denies cough or pain at this time. She has had a total of 3 rbc's completed her initial hemoglobin was 4.8 hemoglobin at this time is 7.7. We have stopped her blood thinner at this time. She has been evaluated by GI and the plan is for them to perform a upper and lower scope tomorrow. Patient is complaining of some constipation. She does have history of black stool however she is on iron replacement. Patient has a history of blood clots her last pulmonary embolism was in February 2017. Patient is also complaining of right sided jaw pain which has been going on for about 6 months initially it was thought to be TMJ however patient sleeps with her mouth open. Potassium 5.3 , chloride 108 BUN 31, creatinine 1.03, troponin 3.790 02/27- patient remains in intensive care unit. She has had a total of 3 units of packed RBCs transfused. Hemoglobin is currently 8.1. BUN 23 and creatinine 1.03. Capillary blood glucose ran between 119 and 131. She underwent EGD and colonoscopy with Dr. Miranda that were normal and scheduled for capsule endoscopy. Patient has been seen by Dr. Abbott regarding facial discomfort which seems to be chronic and atypical not consistent with neuralgia. CAT scan of the brain revealed mild diffuse age-related cerebral atrophy and chronic small vessel ischemic change. No suspicious enhancing mass noted. ESR 58, CRP 30.2. Cardiology is following for non-ST myocardial infarction triggered by severe anemia. Echocardiogram is pending and patient started on Imdur. Patient denies any shortness of breath or cough. No chest pain. She is complaining of her neck bothering her. We will add in PT and OT. Review of Systems: Constitutional: Denies fatigue, Denies chills, Denies fever Eyes: denies blurred vision, denies pain Ears, nose, mouth and throat: Denies headache, Denies sore throat Cardiovascular: Reports decreased exercise tolerance, Reports dyspnea on lying flat, Denies chest pain, Denies lightheadedness, Denies shortness of breath, Denies syncope Respiratory: Denies cough, Denies cough with sputum, Denies dyspnea, Denies excessive sputum, Denies hemoptysis, Denies home oxygen, Denies wheezing Gastrointestinal: Denies abdominal pain, Denies diarrhea, Denies nausea, Denies vomiting reports constipation Genitourinary: Denies dysuria Musculoskeletal: Denies myalgias. Complains of neck pain. Integumentary: Denies pruritus, Denies rash Neurological: Denies numbness, Denies weakness Psychiatric: Denies anxiety, Denies depression Endocrine: Denies fatigue, Denies weight change Objective - Vital Signs Vital signs: Vital Signs Temp 97.5 F L 02/27/18 08:00 Pulse 70 02/27/18 08:00 Resp 12 02/27/18 08:00 BP 126/83 02/27/18 08:00 Pulse Ox 97 02/27/18 08:18 Intake & Output 02/26/18 02/27/18 02/27/18 18:59 06:59 18:59 Output Total 2420 350 75 Balance -2420 -350 -75 Output: Urine 2420 350 75 Other: Voiding Method Indwelling Catheter Indwelling Catheter Indwelling Catheter - Exam - Constitutional General appearance: Present: cooperative, patient is comfortable, obese - EENT Eyes: Present: EOMI, PERRLA, dentition normal ENT: Present: hearing grossly normal, normal oropharynx - Neck Neck: Present: normal ROM. Absent: lymphadenopathy, rigidity - Respiratory Respiratory: bilateral: CTA, negative: diminished, dullness, rales, rhonchi, wheezing - Cardiovascular Rhythm: irregularly irregular Heart sounds: normal: S1, S2 Abnormal Heart Sounds: Present: systolic murmur. Absent: diastolic murmur, rub , S3 Gallop, S4 Gallop, click, other - Gastrointestinal General gastrointestinal: Present: normal bowel sounds, soft. Absent: organomegaly, splenomegaly, tenderness - Genitourinary Genitourinary Comment(s): Corbin catheter in place draining clear yellow urine dependently - Integumentary Integumentary: Present: normal turgor, pale - Neurologic Neurologic: Present: CNII-XII intact - Musculoskeletal Musculoskeletal: Present: generalized weakness, strength equal bilaterally - Psychiatric Psychiatric: Present: A&O x's 3, appropriate affect, intact judgment & insight - Labs CBC & Chem 7: 02/27/18 05:30 02/27/18 05:30 Labs: Abnormal Lab Results - Last 24 Hours (Table) 02/26/18 02/26/18 02/26/18 Range/Units 09:35 11:55 12:14 WBC (3.8-10.6) k/uL RBC 2.90 L (3.80-5.40) m/uL Hgb 7.7 L (11.4-16.0) gm/dL Hct 24.6 L (34.0-46.0) % MCHC (31.0-37.0) g/dL RDW 16.4 H (11.5-15.5) % ESR 58 H (0-20) mm/hr Sodium (137-145) mmol/L Carbon Dioxide (22-30) mmol/L BUN (7-17) mg/dL Glucose (74-99) mg/dL POC Glucose (mg/dL) 178 H 131 H (75-99) mg/dL C-Reactive Protein (<10.0) mg/L Total Protein (6.3-8.2) g/dL Albumin (3.5-5.0) g/dL 02/26/18 02/26/18 02/26/18 Range/Units 12:14 16:48 18:31 WBC 11.2 H (3.8-10.6) k/uL RBC 2.93 L (3.80-5.40) m/uL Hgb 8.0 L (11.4-16.0) gm/dL Hct 24.2 L (34.0-46.0) % MCHC (31.0-37.0) g/dL RDW 16.3 H (11.5-15.5) % ESR (0-20) mm/hr Sodium (137-145) mmol/L Carbon Dioxide (22-30) mmol/L BUN (7-17) mg/dL Glucose (74-99) mg/dL POC Glucose (mg/dL) 114 H (75-99) mg/dL C-Reactive Protein 30.2 H (<10.0) mg/L Total Protein (6.3-8.2) g/dL Albumin (3.5-5.0) g/dL 02/26/18 02/27/18 02/27/18 Range/Units 20:15 00:43 05:30 WBC (3.8-10.6) k/uL RBC 2.89 L (3.80-5.40) m/uL Hgb 7.7 L (11.4-16.0) gm/dL Hct 25.1 L (34.0-46.0) % MCHC 30.8 L (31.0-37.0) g/dL RDW 16.3 H (11.5-15.5) % ESR (0-20) mm/hr Sodium 134 L (137-145) mmol/L Carbon Dioxide 21 L (22-30) mmol/L BUN 23 H (7-17) mg/dL Glucose 133 H (74-99) mg/dL POC Glucose (mg/dL) 101 H (75-99) mg/dL C-Reactive Protein (<10.0) mg/L Total Protein 6.1 L (6.3-8.2) g/dL Albumin 3.3 L (3.5-5.0) g/dL 11/23/18 11/23/18 Range/Units 05:30 07:05 WBC (3.8-10.6) k/uL RBC 2.95 L (3.80-5.40) m/uL Hgb 8.1 L (11.4-16.0) gm/dL Hct 26.1 L (34.0-46.0) % MCHC (31.0-37.0) g/dL RDW 16.3 H (11.5-15.5) % ESR (0-20) mm/hr Sodium (137-145) mmol/L Carbon Dioxide (22-30) mmol/L BUN (7-17) mg/dL Glucose (74-99) mg/dL POC Glucose (mg/dL) 131 H (75-99) mg/dL C-Reactive Protein (<10.0) mg/L Total Protein (6.3-8.2) g/dL Albumin (3.5-5.0) g/dL Assessment and Plan Plan: 1. Severe anemia, symptomatic with dyspnea on exertion, chest pain most likely blood losses from the GI tract, GI consult appreciated. Patient will be scheduled for a upper and lower scope tomorrow. 3 units of packed red blood cells completed. Hemoglobin at 7.7. 2. Non-ST elevated myocardial infarction. Cardiology consult appreciated. Patient started on Imdur. Echocardiogram ordered. 3. history of large kidney stone in the right side with obstructive uropathy and hydronephrosis Y urostomy and lithotripsy, history of pyelonephritis, resolved follows with urology outpatient 4. history of pulmonary embolism: Has been on anticoagulation with Xarelto, hold anticoagulant medications 5. A. fib with RVR with paroxysmal atrial fibrillation currently in sinus rhythm: Post ablation still on blood thinner medication and beta go. He would hold off anticoagulation Xarelto secondary to GI bleeding 6. History of CVA: Stable with no worsening residual at this point. 7. hypertension: Has been on metoprolol 50 mg twice a day and spironolactone. 8. hyperlipidemia: Off statin because of side effect. 9. hypothyroidism: On levothyroxine 112 g. 11. asthma: On albuterol/ipratropium 4 times a day 12. Diabetes mellitus type 2. Stop Amaryl, start insulin sliding scale weight- based before meals and at bedtime Accu-Chek with sliding scales coverage and be done. 13. Hyperkalemia: Decrease Aldactone to 12.5 mg daily 14. GI prophylaxis: On Pepcid daily. 15. DVT prophylaxis: SCDs in place. 16. Chronic kidney disease stage III 17. History of nephrolithiasis and lithotripsy, ureteral stent placement and removal. CODE STATUS: Full code. Discharge plan: To be determined. PT and OT evaluations requested. Impression and plan of care have been directed as dictated by the signing physician. Ester Hobson nurse practitioner acting as scribe for signing physician.
[2018-02-27 16:52] LABS: Glucose,Whole Blood 113 mg/dL (75-99)
--- NOTE | 2018-02-27 17:18 | ECHOF ---
Referral Reason:mi MEASUREMENTS -------- HEIGHT: 157.5 cm WEIGHT: 121.1 kg BP: 124/57 RVIDd: 3.0 cm (< 3.3) IVSd: 0.8 cm (0.6 - 1.1) LVIDd: 6.2 cm (3.9 - 5.3) LVPWd: 0.9 cm (0.6 - 1.1) IVSs: 1.3 cm LVIDs: 3.8 cm LVPWs: 1.3 cm LA Diam: 2.8 cm (2.7 - 3.8) Ao Diam: 3.4 cm (2.0 - 3.7) AV Cusp: 1.5 cm (1.5 - 2.6) LA Diam: 2.7 cm (2.7 - 3.8) EPSS: 1.1 cm MV E Chris: 1.14 m/s MV DecT: 168 ms MV A Chris: 0.89 m/s MV E/A Ratio: 1.28 RAP: 5.00 mmHg RVSP: 35.64 mmHg MV EF SLOPE: 38.96 mm/s (70 - 150) MV EXCURSION: 1.35 cm (> 18.000) FINDINGS -------- Sinus rhythm. This was a technically difficult study with suboptimal views. The left ventricular size is normal. Left ventricular wall thickness is normal. Overall left vent ricular systolic function is low-normal with, an EF between 50 - 55 %. [employer]ok[employer]is. The right ventricle is normal in size and function. The left atrial size is normal. The right atrium is normal in size. 3 ml of Lumason was utilized for enhancement of images. There is mild aortic valve sclerosis. There is no evidence of aortic regurgitation. The mitral valve leaflets are mildly thickened. Mild mitral annular calcification present. Mild m itral regurgitation is present. Mild tricuspid regurgitation present. Right ventricular systolic pressure is normal at < 35 mmHg. There is no evidence of pulmonary hypertension. The pulmonic valve was not well visualized. The aortic root size is normal. Normal inferior vena cava with normal inspiratory collapse consistent with estimated right atrial pre ssure of 5 mmHg. There is no pericardial effusion. CONCLUSIONS -------- 1. Sinus rhythm. 2. This was a technically difficult study with suboptimal views. 3. The left ventricular size is normal. 4. Left ventricular wall thickness is normal. 5. Overall left ventricular systolic function is low-normal with, an EF between 50 - 55 %. 6. [employer]okinesis. 7. The left atrial size is normal. 8. 3 ml of Lumason was utilized for enhancement of images. 9. There is mild aortic valve sclerosis. 10. The mitral valve leaflets are mildly thickened. 11. Mild mitral annular calcification present. 12. Mild mitral regurgitation is present. 13. Mild tricuspid regurgitation present. 14. Right ventricular systolic pressure is normal at < 35 mmHg. 15. The pulmonic valve was not well visualized. 16. The aortic root size is normal. 17. There is no pericardial effusion. BUHR DRESSER: Tom Noyola RDCS
--- NOTE | 2018-02-27 18:45 | P.PN ---
Subjective Progress Note Date: 02/27/18 Principal diagnosis: Atypical facial pain Neurology is following on a 62 year old female for headache and atypical facial pain. Patient has been having discomfort involving the right temporal region and right facial region. Symptoms started approximately 6 months ago with no significant injury or trauma to account for symptoms. Patient denies any history of numbness or tingling. Patient expresses some complaints of blurry vision that wax and wane. Patient does have history of previous stroke with residual left-sided weakness that has mostly resolved. Patient was initially brought to the ED with chest pain. She was found to be significantly anemic and stool was occult positive. GI was consulted. Fasting lipid panel was normal except for slightly elevated triglycerides. Patient denies any knowledge of exacerbating or alleviating factors related to her facial pain. Pain is rated as a 3 out of [address] on a recurrent basis. CT of the brain was conducted and noted mild age-related atrophy and chronic small vessel ischemic changes. On contact, patient was alert and oriented 3, resting in bed in no acute distress. Objective - Vital Signs Vital signs: Vital Signs Temp 98.3 F 02/27/18 16:00 Pulse 77 02/27/18 18:00 Resp 8 L 02/27/18 18:00 BP 98/40 02/27/18 18:00 Pulse Ox 89 L 02/27/18 14:00 Intake & Output 02/26/18 02/27/18 02/27/18 18:59 06:59 18:59 Intake Total 600 Output Total 2420 350 315 Balance -2420 -350 285 Intake: IV 50 Intake, IV Titration 550 Amount IV Fluid Continuation 1, 550 000 ml @ 0 mls/hr IV .[facility] Rx#:[id number] Output: Urine 2420 350 315 Other: Voiding Method Indwelling Catheter Indwelling Catheter Indwelling Catheter - Exam General appearance: Alert & oriented x3, no apparent distress. Head: Atraumatic, normocephalic, normal inspection Eyes: PERRLA, EOMI. Absent scleral icterus, conjunctival injection, nystagmus, periorbital swelling. Ear, nose and throat: Normal exam, mucous membranes moist Neck: Normal inspection, absent tenderness, lymphadenopathy. Respiratory: No increased work of breathing Cardiovascular: Regular rate, rhythm GI/abdominal: No guarding, no rigidity Extremities: moves all extremities Neurological: cranial nerves II through XII intact no lateralizing weakness no seizure activity noted on physical exam no pronator drift and no nystagmus. Strength: full in all 4 extremities Sensation: Left lower extremity: normal Right lower extremity: normal Left upper extremity: normal Right upper extremity:normal Psychological: Mood and Affect appropriate for setting - Labs CBC & Chem 7: 02/27/18 05:30 02/27/18 05:30 Labs: Abnormal Lab Results - Last 24 Hours (Table) 02/26/18 02/26/18 02/26/18 Range/Units 12:14 18:31 20:15 WBC 11.2 H (3.8-10.6) k/uL RBC 2.93 L (3.80-5.40) m/uL Hgb 8.0 L (11.4-16.0) gm/dL Hct 24.2 L (34.0-46.0) % MCHC (31.0-37.0) g/dL RDW 16.3 H (11.5-15.5) % Sodium (137-145) mmol/L Carbon Dioxide (22-30) mmol/L BUN (7-17) mg/dL Glucose (74-99) mg/dL POC Glucose (mg/dL) 101 H (75-99) mg/dL Total Protein (6.3-8.2) g/dL Albumin (3.5-5.0) g/dL VITALY Screen POSITIVE H (NEGATIVE) 02/27/18 02/27/18 02/27/18 Range/Units 00:43 05:30 05:30 WBC (3.8-10.6) k/uL RBC 2.89 L 2.95 L (3.80-5.40) m/uL Hgb 7.7 L 8.1 L (11.4-16.0) gm/dL Hct 25.1 L 26.1 L (34.0-46.0) % MCHC 30.8 L (31.0-37.0) g/dL RDW 16.3 H 16.3 H (11.5-15.5) % Sodium 134 L (137-145) mmol/L Carbon Dioxide 21 L (22-30) mmol/L BUN 23 H (7-17) mg/dL Glucose 133 H (74-99) mg/dL POC Glucose (mg/dL) (75-99) mg/dL Total Protein 6.1 L (6.3-8.2) g/dL Albumin 3.3 L (3.5-5.0) g/dL VITALY Screen (NEGATIVE) 02/27/18 02/27/18 02/27/18 Range/Units 07:05 12:16 16:45 WBC (3.8-10.6) k/uL RBC (3.80-5.40) m/uL Hgb (11.4-16.0) gm/dL Hct (34.0-46.0) % MCHC (31.0-37.0) g/dL RDW (11.5-15.5) % Sodium (137-145) mmol/L Carbon Dioxide (22-30) mmol/L BUN (7-17) mg/dL Glucose (74-99) mg/dL POC Glucose (mg/dL) 131 H 119 H 113 H (75-99) mg/dL Total Protein (6.3-8.2) g/dL Albumin (3.5-5.0) g/dL VITALY Screen (NEGATIVE) Assessment and Plan (1) Atypical facial pain Current Visit: Yes Status: Acute Code(s): G50.1 - ATYPICAL FACIAL PAIN SNOMED Code(s): 43169911 (2) Blurred vision Current Visit: Yes Status: Acute Code(s): H53.8 - OTHER VISUAL DISTURBANCES SNOMED Code(s): 627197162 (3) Anemia Current Visit: Yes Status: Acute Code(s): D64.9 - ANEMIA, UNSPECIFIED SNOMED Code(s): 586981608 Plan: Patient's symptoms are chronic and atypical. They do not appear consistent with any neurological etiology at this time. Laboratory blood work is unremarkable/noncontributory. Further treatment options could be attempted in the outpatient setting involving possible nerve related agents/medications at a later date. Patient can be cleared for discharge from a neurological standpoint at this time. Patient can follow-up in the office within 14 days if desired. I have discussed the plan of care with the physician prior to implementation and he agrees with the plan as implemented.
[2018-02-27 20:07] LABS: Glucose,Whole Blood 144 mg/dL (75-99)
[2018-02-27] MEDS: MONTELUKAST 10 MG TAB PO SCH (21:51)
[2018-02-27] MEDS: PRAVASTATIN SODIUM 40 MG TAB PO SCH (21:51)
[2018-02-27] MEDS: GLIMEPIRIDE 1 MG TAB PO SCH (22:16)
[2018-02-28 05:59] LABS: Calcium 8.2 mg/dL (8.4-10.2); Potassium 3.7 mmol/L (3.5-5.1)
[2018-02-28] MEDS: LEVOTHYROXINE 112 MCG TAB PO SCH (07:11)
[2018-02-28] MEDS: FUROSEMIDE 40 MG TAB PO SCH (07:11)
[2018-02-28 07:24] LABS: Glucose,Whole Blood 99 mg/dL (75-99)
[2018-02-28] MEDS: PANTOPRAZOLE 40 MG/10 ML VIAL IVP SCH ×2 (08:03→20:42)
[2018-02-28] MEDS: DOCUSATE 100 MG CAP PO SCH (08:04)
[2018-02-28] MEDS: ISOSORBIDE MONONITRATE ER 30 MG TAB.ER.24H PO SCH (08:04)
[2018-02-28] MEDS: METOPROLOL TARTRATE 25 MG TAB PO SCH ×2 (08:04→20:41)
[2018-02-28] MEDS: NITROFURANTOIN MONOHYD/M-CRYST 100 MG CAP PO SCH (08:04)
[2018-02-28 08:07] LABS: Anisocytosis Slight; HCT 22.1 % (34.0-46.0); Hypochromasia Marked; MCH 27.2 pg (25.0-35.0); MCHC 31.5 g/dL (31.0-37.0); MCV 86.2 fL (80.0-100.0); Mean Platelet Volume 6.5; Platelet Count 235 k/uL (150-450); Poikilocytosis Moderate; RBC 2.57 m/uL (3.80-5.40); RDW 16.8 % (11.5-15.5); WBC 7.3 k/uL (3.8-10.6)
[2018-02-28 08:21] LABS: Appearance,Urine Turbid (Clear); Bacteria,Urine Many /hpf; Bilirubin,Urine Negative (Negative); Blood,Urine Moderate (Negative); Color,Urine Yellow; Glucose,Urine (UA) Negative (Negative); Ketones,Urine Negative (Negative); Leukocyte Esterase,Urine Large (Negative); Mucus,Urine Rare /hpf; Nitrite,Urine Negative (Negative); PH, Urine 5.5 (5.0-8.0); Protein,Urine 1+ (Negative); RBC,Urine 20 /hpf (0-5); Specific Gravity,Urine 1.016 (1.001-1.035); Squamous Epithelial Cell,Urine 1 /hpf (0-4); Urobilinogen,Urine <2.0 mg/dL (<2.0); WBC,Urine >182 /hpf (0-5)
[2018-02-28] MEDS: BUDESONIDE 0.5 MG/2 ML NEBU INHALATION SCH ×2 (08:47→21:09)
[2018-02-28] MEDS: INSULIN ASPART 100 UNIT/ML 1 ML 10 ML VIAL SQ SCH ×3 (09:22→17:06)
[2018-02-28] MEDS: LISINOPRIL 5 MG TAB PO SCH (09:22)
--- NOTE | 2018-02-28 09:35 | PN ---
PROGRESS NOTE Mrs. Oconnell is a 62-year-old female with a history of coronary artery disease with paroxysmal atrial fibrillation who was noted to be severely anemic on presentation, who was noted to have an elevation of the troponin. She has some chest discomfort that improved after passing gas. Hemodynamically, she is stable. She continues to be in sinus mechanism. Her breathing was unchanged. She continues to have some dyspnea on exertion. No dizziness or palpitation. She continues to be at this time on Lasix 40 mg daily, glimepiride, insulin, isosorbide mononitrate 30 mg daily, Zestril 5 mg daily, metoprolol tartrate 25 mg twice a day, spironolactone 12.5 mg daily. PHYSICAL EXAMINATION: Blood pressure running in the high 90s with a heart rate in the 60s. LUNGS: Clear. HEART: Regular rate and rhythm S1, S2. No S3 with systolic ejection murmur. No diastolic murmur. No rub. ABDOMEN: Soft, obese, nontender. EXTREMITIES: No significant edema. LAB DATA: Lab data revealed apical hypokinesis with ejection fraction of 50% to 55% with mild mitral and tricuspid regurgitation and no evidence of pulmonary hypertension. Lab data revealed a BUN and creatinine of 18 and 1.25. Her hemoglobin is 7. IMPRESSION: 1. Severe anemia. Workup in progress. 2. Non ST-segment elevation myocardial infarction, triggered by the anemia. 3. Chronic kidney disease. 4. Paroxysmal atrial fibrillation remains in sinus mechanism. 5. Hypertension. RECOMMENDATION: From the cardiac standpoint, we will continue present therapy and follow her renal function closely, and depending on her blood pressure, adjust her medical therapy further. MMODL / IJN: [id number] /
[2018-02-28] MEDS ORDERED: Potassium Replacement Protocol 1 EACH MISC MISCELLANE PRN (09:40)
[2018-02-28] MEDS: GLIMEPIRIDE 1 MG TAB PO SCH ×2 (09:56→17:57)
[2018-02-28] MEDS: HYDROcodone/APAP 5-325MG 1 EACH TAB PO PRN ×3 (09:56→23:20)
[2018-02-28] MEDS ORDERED: POTASSIUM CHLORIDE ER 20 MEQ TAB.ER PO SCH (10:00)
[2018-02-28] MEDS: SPIRONOLACTONE 25 MG TAB PO SCH (10:02)
--- NOTE | 2018-02-28 12:22 | P.PN ---
Subjective Progress Note Date: 02/28/18 Principal diagnosis: Acute non-ST elevation myocardial infarction and acute GI bleeding This is a 62-year-old female with history of multiple medical problems including severe coronary artery disease, multiple stents placed in the past, however the patient was not felt to be a good candidate for coronary artery bypass graft surgery. Apparently she had issues related to her stage III chronic renal failure, and she had issues at the time related to nephrolithiasis and ureteral stent placement. Patient was seen by cardiac surgery, and she was felt to be a high surgical risk, apparently the decision was to treat the patient medically for her ongoing symptoms of angina. Patient has been taking nitroglycerin frequently on a regular basis for intermittent episodes of chest pain. Patient usually sees Dr. Rivera from cardiology. At any rate the patient came in to the emergency room yesterday complaining of chest pain, responded well to nitroglycerin, and her chest pain has been going on and off for the last 1 month. She was also complaining of dyspnea on exertion, radiation of the pain to the left arm, she had intermittent episodes of black stools, and she is on Xarelto she is also on Plavix. At any rate patient hemoglobin was noted to be extremely low. Patient was admitted for blood transfusion, and for further cardiac evaluation. Patient received a total of 3 units of packed RBCs so far since admission, her hemoglobin this morning is 7.9. Her Plavix and Xarelto are presently on hold. Her troponin was noted to be elevated at 3.79. And her stools were positive for Hemoccult blood. Patient was seen by cardiology/Dr. Mallory, and he felt that the patient had non-ST segment elevation myocardial infarction exacerbated by severe anemia with known history of severe coronary artery disease and the patient was non- amenable to percutaneous revascularization and was not felt to be a surgical candidate at a certain time. At any rate patient is in the ICU at present, she continues to have occasional intermittent chest pains, presently no nausea no vomiting no abdominal pain, she did have black stools earlier. Denies any headaches no blurred vision no dizziness. No nausea no vomiting no dysuria and no frequency no urgency. Patient was placed on Protonix, and she will be seen by gastroenterology. Her last colonoscopy was over 10 years ago. Patient never had any history of GI bleeding in the past medical history of peptic ulcer disease, and no history of diverticulosis. Patient was reevaluated today on 02/27/2018, she underwent EGD and colonoscopy, and both came back nondiagnostic. Hence a capsule endoscopy was recommended, and it is being started today. In the meantime the patient's hemoglobin is 8.1 today, and she received a total of 3 units of packed RBCs since admission. Patient denies any shortness of breath, no cough, and no chest pain. Basic metabolic profile is relatively normal. Reevaluated today on 02/24/2018, patient is doing well, relatively asymptomatic , however her hemoglobin is down to 7.0, patient does have history of significant underlying coronary artery disease, hence I recommended at least a unit of packed RBCs to be given today, patient already had a non-ST elevation myocardial infarction related to low hemoglobin. It is best to transfuse the patient at this point rather than waiting until the hemoglobin drops again. No bowel movements over the last 24 hours. Patient had EGD and colonoscopy they were both nondiagnostic. However she is obviously still oozing somewhat in the GI tract. She had positive Hemoccult stools on presentation. She received a total of 3 units of packed RBCs since admission, and today she'll be receiving her fourth unit. All labs were reviewed including basic metabolic profile and renal profile. Objective - Vital Signs Vital signs: Vital Signs Temp 98.7 F 02/28/18 08:00 Pulse 63 02/28/18 12:00 Resp 15 02/28/18 12:00 BP 101/53 02/28/18 12:00 Pulse Ox 94 L 02/28/18 12:00 Intake & Output 02/27/18 02/28/18 02/28/18 18:59 06:59 18:59 Intake Total 1200 Output Total 315 650 635 Balance 885 650 -635 Weight 120.8 kg Intake: IV 50 Intake, IV Titration 1150 Amount IV Fluid Continuation 1, 1150 000 ml @ 0 mls/hr IV .[facility] Rx#:[id number] Output: Urine 315 650 635 Other: Voiding Method Indwelling Catheter Indwelling Catheter Indwelling Catheter - Exam Physical Exam: Revealed a 62-year-old female in no distress. Head: Atraumatic normocephalic. HEENT:[Neck is supple.] [No neck masses.] [No thyromegaly.] [No JVD.] Chest: [Clear throughout, no crackles, no rhonchi, no wheezes.] Cardiac Exam: [Normal S1 and S2, no S3 gallop, no murmur.] Abdomen: [Soft, nontender, no megaly, no rebound, no guarding, normal bowel sounds.] Extremities: [No clubbing, no edema, no cyanosis.] Neurological Exam: [No focal neurologic deficit.] Skin: No rashes. Psychiatric: Normal mood, affect and mental status examination. - Labs CBC & Chem 7: 02/28/18 05:05 02/28/18 05:07 Labs: Abnormal Lab Results - Last 24 Hours (Table) 02/25/18 02/26/18 02/27/18 Range/Units 12:59 12:14 12:16 RBC (3.80-5.40) m/uL Hgb (11.4-16.0) gm/dL Hct (34.0-46.0) % RDW (11.5-15.5) % Sodium (137-145) mmol/L BUN (7-17) mg/dL Creatinine (0.52-1.04) mg/dL POC Glucose (mg/dL) 119 H (75-99) mg/dL Calcium (8.4-10.2) mg/dL Urine Appearance (Clear) Urine Protein (Negative) Urine Blood (Negative) Ur Leukocyte Esterase (Negative) Urine RBC (0-5) /hpf Urine WBC (0-5) /hpf Urine WBC Clumps (None) /hpf Urine Bacteria (None) /hpf Urine Mucus (None) /hpf VITALY Screen POSITIVE H (NEGATIVE) Crossmatch See Detail 02/27/18 02/27/18 02/28/18 Range/Units 16:45 20:05 04:00 RBC (3.80-5.40) m/uL Hgb (11.4-16.0) gm/dL Hct (34.0-46.0) % RDW (11.5-15.5) % Sodium (137-145) mmol/L BUN (7-17) mg/dL Creatinine (0.52-1.04) mg/dL POC Glucose (mg/dL) 113 H 144 H (75-99) mg/dL Calcium (8.4-10.2) mg/dL Urine Appearance Turbid H (Clear) Urine Protein 1+ H (Negative) Urine Blood Moderate H (Negative) Ur Leukocyte Esterase Large H (Negative) Urine RBC 20 H (0-5) /hpf Urine WBC >182 H (0-5) /hpf Urine WBC Clumps Many H (None) /hpf Urine Bacteria Many H (None) /hpf Urine Mucus Rare H (None) /hpf VITALY Screen (NEGATIVE) Crossmatch 02/28/18 02/28/18 Range/Units 05:05 05:07 RBC 2.57 L (3.80-5.40) m/uL Hgb 7.0 L (11.4-16.0) gm/dL Hct 22.1 L (34.0-46.0) % RDW 16.8 H (11.5-15.5) % Sodium 135 L (137-145) mmol/L BUN 18 H (7-17) mg/dL Creatinine 1.25 H (0.52-1.04) mg/dL POC Glucose (mg/dL) (75-99) mg/dL Calcium 8.2 L (8.4-10.2) mg/dL Urine Appearance (Clear) Urine Protein (Negative) Urine Blood (Negative) Ur Leukocyte Esterase (Negative) Urine RBC (0-5) /hpf Urine WBC (0-5) /hpf Urine WBC Clumps (None) /hpf Urine Bacteria (None) /hpf Urine Mucus (None) /hpf VITALY Screen (NEGATIVE) Crossmatch Microbiology - Last 24 Hours (Table) 02/28/18 04:00 Urine Culture - Preliminary Urine,Catheterized Assessment and Plan Assessment: Impression: 1 acute non-ST elevation myocardial infarction in a patient with known history of severe coronary artery disease, triggered by profound anemia secondary to GI bleeding. Again most likely triggered by the fact that the patient is on anticoagulation therapy for her underlying coronary artery disease and underlying atrial fibrillation. 2 severe anemia secondary to GI blood losses., EGD and colonoscopy are both nondiagnostic, hence capsule endoscopy was recommended by gastroenterology. 3 chronic kidney disease stage III, sees nephrology on a regular basis. 4 history of nephrolithiasis, lithotripsy, and ureteral stent placement. 5 history of paroxysmal atrial fibrillation. Previous ablation. 6 history of hypertension 7 history of hypothyroidism on replacement therapy 8 history of mild intermittent asthma presently inactive 9 history of type 2 diabetes 10 history of dyslipidemia. 11 history of pulmonary embolism. Recommendation: Continue present treatment plan, will give the patient a unit of packed RBCs today for hemoglobin of 7, mostly because of that concern of her underlying coronary artery disease and recent SD. We'll continue to monitor in the ICU today possibly transfer out of the ICU in the next 24 hours Time with Patient: Less than 30
[2018-02-28 12:24] LABS: Glucose,Whole Blood 86 mg/dL (75-99)
[2018-02-28] MEDS: FERROUS SULFATE 325 MG TAB PO SCH (15:24)
[2018-02-28 17:05] LABS: Glucose,Whole Blood 75 mg/dL (75-99)
--- NOTE | 2018-02-28 19:20 | P.PN ---
Subjective Progress Note Date: 02/28/18 62-year-old obese female one of my patient with multiple medical problem known to have history of diabetes hypertension hyperlipidemia coronary disease post angioplasty and stent placement in the past, also history of pulmonary embolism paroxysmal atrophy fibrillation with ablation still on anticoagulation. Patient not seen Dr. Deluca, seen Dr. Taylor cardiology regular basis also had seen urology in the past for history of kidney stone. On antibiotic prophylaxis with nitrofurantoin Patient comes in to the emergency room secondary to chest discomfort over the past 1 month, increasing in intensity, radiating to the left arm, also with shortness of breath this man exertion, nausea, patient denies any abdominal pain vomiting or diarrhea, no fever no chills no cough. Patient denies any melena hematochezia, however when seen in the emergency room, she is significantly anemic, patient is on Xarelto at any medication changes, next Emergency room, EKG shows sinus tach cardia 106, no acute ST-T wave changes, hemoglobin was 4.8, previous off 7.1, potassium of 5.1, creatinine of 1.17, glucose 136, liver function tests normal, troponins 0.125 Xarelto on hold secondary to cyclical secondary to severe anemia, consults with cardiology and GI, blood is positive. Total of 3 units of packed red blood cells to be given today for hemoglobin of 4, expected hemoglobin rise to be around 7 with a 3 units 02/26: Patient is resting comfortably in bed. She still is having episodes of orthopnea. Patient denies cough or pain at this time. She has had a total of 3 rbc's completed her initial hemoglobin was 4.8 hemoglobin at this time is 7.7. We have stopped her blood thinner at this time. She has been evaluated by GI and the plan is for them to perform a upper and lower scope tomorrow. Patient is complaining of some constipation. She does have history of black stool however she is on iron replacement. Patient has a history of blood clots her last pulmonary embolism was in February 2017. Patient is also complaining of right sided jaw pain which has been going on for about 6 months initially it was thought to be TMJ however patient sleeps with her mouth open. Potassium 5.3 , chloride 108 BUN 31, creatinine 1.03, troponin 3.790 02/27- patient remains in intensive care unit. She has had a total of 3 units of packed RBCs transfused. Hemoglobin is currently 8.1. BUN 23 and creatinine 1.03. Capillary blood glucose ran between 119 and 131. She underwent EGD and colonoscopy with Dr. Miranda that were normal and scheduled for capsule endoscopy. Patient has been seen by Dr. Abbott regarding facial discomfort which seems to be chronic and atypical not consistent with neuralgia. CAT scan of the brain revealed mild diffuse age-related cerebral atrophy and chronic small vessel ischemic change. No suspicious enhancing mass noted. ESR 58, CRP 30.2. Cardiology is following for non-ST myocardial infarction triggered by severe anemia. Echocardiogram is pending and patient started on Imdur. Patient denies any shortness of breath or cough. No chest pain. She is complaining of her neck bothering her. We will add in PT and OT. 02/28: Patient remains in the ICU. Her hemoglobin was 7 and we will transfuse 1 unit of packed red blood cells. She underwent EGD and colonoscopy with Dr. Miranda with normal findings and had a capsule endoscopic done today. Patient continues to be nothing by mouth and she is requesting to have something to eat at this time. We will start with a consistent carbohydrate diet. Patient denies any shortness of breath, coughing, or chest pain. BUN was 18 creatinine 1.25 Review of Systems: Constitutional: Denies fatigue, Denies chills, Denies fever Eyes: denies blurred vision, denies pain Ears, nose, mouth and throat: Denies headache, Denies sore throat Cardiovascular: Reports decreased exercise tolerance, Reports dyspnea on lying flat, Denies chest pain, Denies lightheadedness, Denies shortness of breath, Denies syncope Respiratory: Denies cough, Denies cough with sputum, Denies dyspnea, Denies excessive sputum, Denies hemoptysis, Denies home oxygen, Denies wheezing Gastrointestinal: Denies abdominal pain, Denies diarrhea, Denies nausea, Denies vomiting reports constipation Genitourinary: Denies dysuria Musculoskeletal: Denies myalgias. Complains of neck pain. Integumentary: Denies pruritus, Denies rash Neurological: Denies numbness, Denies weakness Psychiatric: Denies anxiety, Denies depression Endocrine: Denies fatigue, Denies weight change Objective - Vital Signs Vital signs: Vital Signs Temp 98.3 F 02/28/18 17:41 Pulse 83 02/28/18 18:00 Resp 16 02/28/18 18:00 BP 128/51 02/28/18 18:00 Pulse Ox 98 02/28/18 18:00 Intake & Output 02/28/18 02/28/18 03/01/18 06:59 18:59 06:59 Intake Total 0 Output Total 650 1335 Balance -650 -1335 Weight 120.1 kg Intake: Blood Product 0 Rc As-1 Unit 0 [id number] Output: Urine 650 1335 Other: Voiding Method Indwelling Catheter Indwelling Catheter - Constitutional General appearance: Present: cooperative, no acute distress, obese - EENT Eyes: Present: anicteric sclerae, EOMI, PERRLA ENT: Present: hearing grossly normal, NA/AT, normal oropharynx - Neck Neck: Present: normal ROM. Absent: lymphadenopathy, rigidity - Respiratory Respiratory: bilateral: CTA, negative: diminished, dullness, rales, rhonchi, wheezing - Cardiovascular Rhythm: irregularly irregular Heart sounds: normal: S1, S2 Abnormal Heart Sounds: Present: systolic murmur. Absent: diastolic murmur, rub , S3 Gallop, S4 Gallop, click, other - Gastrointestinal General gastrointestinal: Present: normal bowel sounds, soft. Absent: organomegaly, tenderness - Genitourinary Genitourinary Comment(s): Indwelling catheter in place draining clear yellow urine dependently - Integumentary Integumentary: Present: normal turgor, pale - Neurologic Neurologic: Present: CNII-XII intact - Musculoskeletal Musculoskeletal: Present: gait normal, generalized weakness, strength equal bilaterally - Psychiatric Psychiatric: Present: A&O x's 3, appropriate affect, intact judgment & insight - Labs CBC & Chem 7: 02/28/18 05:05 02/28/18 05:07 Labs: Abnormal Lab Results - Last 24 Hours (Table) 02/25/18 02/27/18 02/28/18 Range/Units 12:59 20:05 04:00 RBC (3.80-5.40) m/uL Hgb (11.4-16.0) gm/dL Hct (34.0-46.0) % RDW (11.5-15.5) % Sodium (137-145) mmol/L BUN (7-17) mg/dL Creatinine (0.52-1.04) mg/dL POC Glucose (mg/dL) 144 H (75-99) mg/dL Calcium (8.4-10.2) mg/dL Urine Appearance Turbid H (Clear) Urine Protein 1+ H (Negative) Urine Blood Moderate H (Negative) Ur Leukocyte Esterase Large H (Negative) Urine RBC 20 H (0-5) /hpf Urine WBC >182 H (0-5) /hpf Urine WBC Clumps Many H (None) /hpf Urine Bacteria Many H (None) /hpf Urine Mucus Rare H (None) /hpf Crossmatch See Detail 02/28/18 02/28/18 02/28/18 Range/Units 05:05 05:07 14:30 RBC 2.57 L (3.80-5.40) m/uL Hgb 7.0 L (11.4-16.0) gm/dL Hct 22.1 L (34.0-46.0) % RDW 16.8 H (11.5-15.5) % Sodium 135 L (137-145) mmol/L BUN 18 H (7-17) mg/dL Creatinine 1.25 H (0.52-1.04) mg/dL POC Glucose (mg/dL) (75-99) mg/dL Calcium 8.2 L (8.4-10.2) mg/dL Urine Appearance (Clear) Urine Protein (Negative) Urine Blood (Negative) Ur Leukocyte Esterase (Negative) Urine RBC (0-5) /hpf Urine WBC (0-5) /hpf Urine WBC Clumps (None) /hpf Urine Bacteria (None) /hpf Urine Mucus (None) /hpf Crossmatch See Detail Microbiology - Last 24 Hours (Table) 02/28/18 04:00 Urine Culture - Preliminary Urine,Catheterized Assessment and Plan Plan: 1. Severe anemia, symptomatic with dyspnea on exertion, chest pain most likely blood losses from the GI tract, GI consult appreciated. Patient will be scheduled for a upper and lower scope tomorrow. 3 units of packed red blood cells completed. Hemoglobin at 7, 1 unit of packed red blood cells to be transfused today.. 2 chest pain most likely secondary to demand ischemia mismatch from anemia, Patient is known to have history of coronary disease with multiple angioplasty and stent CK with troponin 3 will be done repeat EKG . Cardiology consult appreciated. Patient was started on Imdur. Echocardiogram shows EF between 50 and 55% hypokinesis at the apex 3 history of large kidney stone in the right side with obstructive uropathy and hydronephrosis Y urostomy and lithotripsy, history of pyelonephritis, resolved follows with urology outpatient 4 history of pulmonary embolism: Has been on anticoagulation with Xarelto, hold anticoagulant medications 5 A. fib with RVR: Post ablation still on blood thinner medication and beta go. hold off anticoagulation Xarelto secondary to GI bleeding 6 history of CVA: Stable with no worsening residual at this point. 7 hypertension: Has been on metoprolol 50 mg twice a day and spironolactone. 8 hyperlipidemia: Off statin because of side effect. 9 hypothyroidism: On levothyroxine 112 g. 11 asthma: On albuterol/ipratropium 4 times a day 12 diabetes: Stop Amaryl, start insulin sliding scale weight-based before meals and at bedtime Accu-Chek with sliding scales coverage and be done. 13. Hyperkalemia: Decrease Aldactone to 12.5 mg daily 14. GI prophylaxis: On Pepcid daily. 15 DVT prophylaxis: SCDs in place. 16. Chronic kidney disease stage III 17. History of nephrolithiasis and lithotripsy, ureteral stent placement and removal. CODE STATUS: Full code. Admit patient to status inpatient for more than 2 nights. Impression and plan of care have been directed as dictated by the signing physician. Tammy Claros nurse practitioner acting as scribe for signing physician.
[2018-02-28] MEDS: MONTELUKAST 10 MG TAB PO SCH (20:41)
[2018-02-28] MEDS: PRAVASTATIN SODIUM 40 MG TAB PO SCH (20:42)
[2018-02-28] MEDS: ALPRAZolam 0.25 MG TAB PO PRN (20:42)
[2018-02-28 21:06] LABS: Glucose,Whole Blood 148 mg/dL (75-99)
[2018-03-01 05:32] LABS: Anisocytosis Slight; HGB 7.8 gm/dL (11.4-16.0); Hypochromasia Marked; MCH 27.3 pg (25.0-35.0); MCHC 31.4 g/dL (31.0-37.0); Mean Platelet Volume 6.7; Platelet Count 235 k/uL (150-450); Poikilocytosis Moderate; RBC 2.87 m/uL (3.80-5.40); RDW 16.9 % (11.5-15.5); WBC 6.7 k/uL (3.8-10.6)
[2018-03-01 05:41] LABS: Calcium 8.2 mg/dL (8.4-10.2); Magnesium 1.7 mg/dL (1.6-2.3); Potassium 4.3 mmol/L (3.5-5.1)
[2018-03-01] MEDS: LEVOTHYROXINE 112 MCG TAB PO SCH (06:27)
[2018-03-01] MEDS: FUROSEMIDE 40 MG TAB PO SCH (06:27)
[2018-03-01 07:30] LABS: Glucose,Whole Blood 120 mg/dL (75-99)
[2018-03-01] MEDS: INSULIN ASPART 100 UNIT/ML 1 ML 10 ML VIAL SQ SCH ×3 (07:45→17:58)
[2018-03-01] MEDS: GLIMEPIRIDE 1 MG TAB PO SCH ×2 (08:10→18:04)
[2018-03-01] MEDS: DOCUSATE 100 MG CAP PO SCH (08:10)
[2018-03-01] MEDS: SPIRONOLACTONE 25 MG TAB PO SCH (08:10)
[2018-03-01] MEDS: ISOSORBIDE MONONITRATE ER 30 MG TAB.ER.24H PO SCH (08:10)
[2018-03-01] MEDS: LISINOPRIL 5 MG TAB PO SCH (08:11)
[2018-03-01] MEDS: METOPROLOL TARTRATE 25 MG TAB PO SCH ×2 (08:12→21:04)
[2018-03-01] MEDS: NITROFURANTOIN MONOHYD/M-CRYST 100 MG CAP PO SCH (08:13)
[2018-03-01] MEDS: HYDROcodone/APAP 5-325MG 1 EACH TAB PO PRN ×2 (08:14→21:04)
[2018-03-01] MEDS: PANTOPRAZOLE 40 MG/10 ML VIAL IVP SCH (08:20)
[2018-03-01] MEDS: BUDESONIDE 0.5 MG/2 ML NEBU INHALATION SCH ×2 (08:51→19:46)
--- NOTE | 2018-03-01 10:21 | PN ---
PROGRESS NOTE Mrs. Oconnell is a 62-year-old female with a history of coronary artery disease, paroxysmal atrial fibrillation, severe anemia. She is feeling better today. Hemodynamically, she is stable. She denies any symptoms of chest pain. She denies any dizziness or palpitations. She remains quite weak and dyspneic with minimal activity. She continues to be on Lasix 40 mg daily, glimepiride, isosorbide mononitrate 30 mg daily, lisinopril 5 mg daily, metoprolol tartrate 25 mg twice a day, spironolactone 12.5 mg daily. PHYSICAL EXAMINATION: Blood pressure 113/50 with a heart rate in the 60s. LUNGS: Clear. HEART: Regular rate and rhythm S1, S2. No S3. No rub or gallop appreciated. ABDOMEN: Soft. Obese. Nontender. EXTREMITIES: No significant edema. LAB DATA: Revealed BUN and creatinine of 21 and 0.36, hemoglobin of 7.8, which has been stable. She had an echocardiogram that showed evidence off mild apical hypokinesis. IMPRESSION: 1. Severe anemia. Etiology unclear. 2. Non ST-segment elevation myocardial infarction secondary to severe anemia. 3. Chronic kidney disease, stable. 4. Paroxysmal atrial fibrillation remains in sinus mechanism. 5. Hypertension. RECOMMENDATION: She will continue present therapy. We will continue to increase her level of activity and depending on her progress, further recommendations will be made. The etiology of her anemia is unclear so far. MMODL / IJN: [id number] /
[2018-03-01 12:06] LABS: Glucose,Whole Blood 112 mg/dL (75-99)
--- NOTE | 2018-03-01 14:02 | P.PN ---
Subjective Progress Note Date: 03/01/18 Principal diagnosis: Acute non-ST elevation myocardial infarction and acute GI bleeding This is a 62-year-old female with history of multiple medical problems including severe coronary artery disease, multiple stents placed in the past, however the patient was not felt to be a good candidate for coronary artery bypass graft surgery. Apparently she had issues related to her stage III chronic renal failure, and she had issues at the time related to nephrolithiasis and ureteral stent placement. Patient was seen by cardiac surgery, and she was felt to be a high surgical risk, apparently the decision was to treat the patient medically for her ongoing symptoms of angina. Patient has been taking nitroglycerin frequently on a regular basis for intermittent episodes of chest pain. Patient usually sees Dr. Rivera from cardiology. At any rate the patient came in to the emergency room yesterday complaining of chest pain, responded well to nitroglycerin, and her chest pain has been going on and off for the last 1 month. She was also complaining of dyspnea on exertion, radiation of the pain to the left arm, she had intermittent episodes of black stools, and she is on Xarelto she is also on Plavix. At any rate patient hemoglobin was noted to be extremely low. Patient was admitted for blood transfusion, and for further cardiac evaluation. Patient received a total of 3 units of packed RBCs so far since admission, her hemoglobin this morning is 7.9. Her Plavix and Xarelto are presently on hold. Her troponin was noted to be elevated at 3.79. And her stools were positive for Hemoccult blood. Patient was seen by cardiology/Dr. Mallory, and he felt that the patient had non-ST segment elevation myocardial infarction exacerbated by severe anemia with known history of severe coronary artery disease and the patient was non- amenable to percutaneous revascularization and was not felt to be a surgical candidate at a certain time. At any rate patient is in the ICU at present, she continues to have occasional intermittent chest pains, presently no nausea no vomiting no abdominal pain, she did have black stools earlier. Denies any headaches no blurred vision no dizziness. No nausea no vomiting no dysuria and no frequency no urgency. Patient was placed on Protonix, and she will be seen by gastroenterology. Her last colonoscopy was over 10 years ago. Patient never had any history of GI bleeding in the past medical history of peptic ulcer disease, and no history of diverticulosis. Patient was reevaluated today on 02/27/2018, she underwent EGD and colonoscopy, and both came back nondiagnostic. Hence a capsule endoscopy was recommended, and it is being started today. In the meantime the patient's hemoglobin is 8.1 today, and she received a total of 3 units of packed RBCs since admission. Patient denies any shortness of breath, no cough, and no chest pain. Basic metabolic profile is relatively normal. Reevaluated today on 02/28/2018, patient is doing well, relatively asymptomatic , however her hemoglobin is down to 7.0, patient does have history of significant underlying coronary artery disease, hence I recommended at least a unit of packed RBCs to be given today, patient already had a non-ST elevation myocardial infarction related to low hemoglobin. It is best to transfuse the patient at this point rather than waiting until the hemoglobin drops again. No bowel movements over the last 24 hours. Patient had EGD and colonoscopy they were both nondiagnostic. However she is obviously still oozing somewhat in the GI tract. She had positive Hemoccult stools on presentation. She received a total of 3 units of packed RBCs since admission, and today she'll be receiving her fourth unit. All labs were reviewed including basic metabolic profile and renal profile. Reevaluated today on 03/01/2018, patient remains in the ICU, not having any active GI bleeding, received a unit of packed RBCs yesterday, and her hemoglobin today is 7.8. Denies any chest pain, denies any shortness of breath no cough no wheezing. All labs were reviewed. And results of that capsule endoscopy are pending. Objective - Vital Signs Vital signs: Vital Signs Temp 97.8 F 03/01/18 08:00 Pulse 63 03/01/18 13:00 Resp 15 03/01/18 13:00 BP 117/64 03/01/18 13:00 Pulse Ox 90 L 03/01/18 13:00 Intake & Output 02/28/18 03/01/18 03/01/18 18:59 06:59 18:59 Intake Total 0 810 250 Output Total 4166 133 5555 Balance -1335 85 -875 Weight 120.1 kg 121.2 kg Intake: Oral 500 250 Blood Product 0 310 Rc As-1 Unit 0 310 [id number] Output: Urine 0538 967 8901 Other: Voiding Method Indwelling Catheter Indwelling Catheter Indwelling Catheter - Exam Physical Exam: Revealed a 62-year-old female in no distress. Head: Atraumatic normocephalic. HEENT:[Neck is supple.] [No neck masses.] [No thyromegaly.] [No JVD.] Chest: [Clear throughout, no crackles, no rhonchi, no wheezes.] Cardiac Exam: [Normal S1 and S2, no S3 gallop, no murmur.] Abdomen: [Soft, nontender, no megaly, no rebound, no guarding, normal bowel sounds.] Extremities: [No clubbing, no edema, no cyanosis.] Neurological Exam: [No focal neurologic deficit.] Skin: No rashes. Psychiatric: Normal mood, affect and mental status examination. - Labs CBC & Chem 7: 03/01/18 05:14 03/01/18 05:14 Labs: Abnormal Lab Results - Last 24 Hours (Table) 02/25/18 02/28/18 02/28/18 Range/Units 12:59 14:30 21:03 RBC (3.80-5.40) m/uL Hgb (11.4-16.0) gm/dL Hct (34.0-46.0) % RDW (11.5-15.5) % Sodium (137-145) mmol/L BUN (7-17) mg/dL Creatinine (0.52-1.04) mg/dL POC Glucose (mg/dL) 148 H (75-99) mg/dL Calcium (8.4-10.2) mg/dL Crossmatch See Detail See Detail 03/01/18 03/01/18 03/01/18 Range/Units 05:14 05:14 07:26 RBC 2.87 L (3.80-5.40) m/uL Hgb 7.8 L (11.4-16.0) gm/dL Hct 25.0 L (34.0-46.0) % RDW 16.9 H (11.5-15.5) % Sodium 135 L (137-145) mmol/L BUN 20 H (7-17) mg/dL Creatinine 1.36 H (0.52-1.04) mg/dL POC Glucose (mg/dL) 120 H (75-99) mg/dL Calcium 8.2 L (8.4-10.2) mg/dL Crossmatch 03/01/18 Range/Units 11:51 RBC (3.80-5.40) m/uL Hgb (11.4-16.0) gm/dL Hct (34.0-46.0) % RDW (11.5-15.5) % Sodium (137-145) mmol/L BUN (7-17) mg/dL Creatinine (0.52-1.04) mg/dL POC Glucose (mg/dL) 112 H (75-99) mg/dL Calcium (8.4-10.2) mg/dL Crossmatch Microbiology - Last 24 Hours (Table) 02/28/18 04:00 Urine Culture - Preliminary Urine,Catheterized Gram Neg Bacilli Assessment and Plan Assessment: Impression: 1 acute non-ST elevation myocardial infarction in a patient with known history of severe coronary artery disease, triggered by profound anemia secondary to GI bleeding. Again most likely triggered by the fact that the patient is on anticoagulation therapy for her underlying coronary artery disease and underlying atrial fibrillation. 2 severe anemia secondary to GI blood losses., EGD and colonoscopy are both nondiagnostic, hence capsule endoscopy was recommended by gastroenterology. 3 chronic kidney disease stage III, sees nephrology on a regular basis. 4 history of nephrolithiasis, lithotripsy, and ureteral stent placement. 5 history of paroxysmal atrial fibrillation. Previous ablation. 6 history of hypertension 7 history of hypothyroidism on replacement therapy 8 history of mild intermittent asthma presently inactive 9 history of type 2 diabetes 10 history of dyslipidemia. 11 history of pulmonary embolism. Recommendation: Continue present treatment plan, continue to monitor in the ICU , decision will have to be made by cardiology regarding anticoagulation therapy , and by gastroenterology as to whether these can be safely started. In the meantime continue to monitor in the ICU, and we will follow closely. All in all , the patient received 4 units of packed RBCs since admission, EGD and colonoscopy were nondiagnostic. Time with Patient: Less than 30
--- NOTE | 2018-03-01 16:55 | P.PN ---
Subjective Progress Note Date: 03/01/18 62-year-old obese female one of my patient with multiple medical problem known to have history of diabetes hypertension hyperlipidemia coronary disease post angioplasty and stent placement in the past, also history of pulmonary embolism paroxysmal atrophy fibrillation with ablation still on anticoagulation. Patient not seen Dr. Deluca, seen Dr. Taylor cardiology regular basis also had seen urology in the past for history of kidney stone. On antibiotic prophylaxis with nitrofurantoin Patient comes in to the emergency room secondary to chest discomfort over the past 1 month, increasing in intensity, radiating to the left arm, also with shortness of breath this man exertion, nausea, patient denies any abdominal pain vomiting or diarrhea, no fever no chills no cough. Patient denies any melena hematochezia, however when seen in the emergency room, she is significantly anemic, patient is on Xarelto at any medication changes, next Emergency room, EKG shows sinus tach cardia 106, no acute ST-T wave changes, hemoglobin was 4.8, previous off 7.1, potassium of 5.1, creatinine of 1.17, glucose 136, liver function tests normal, troponins 0.125 Xarelto on hold secondary to cyclical secondary to severe anemia, consults with cardiology and GI, blood is positive. Total of 3 units of packed red blood cells to be given today for hemoglobin of 4, expected hemoglobin rise to be around 7 with a 3 units 02/26: Patient is resting comfortably in bed. She still is having episodes of orthopnea. Patient denies cough or pain at this time. She has had a total of 3 rbc's completed her initial hemoglobin was 4.8 hemoglobin at this time is 7.7. We have stopped her blood thinner at this time. She has been evaluated by GI and the plan is for them to perform a upper and lower scope tomorrow. Patient is complaining of some constipation. She does have history of black stool however she is on iron replacement. Patient has a history of blood clots her last pulmonary embolism was in February 2017. Patient is also complaining of right sided jaw pain which has been going on for about 6 months initially it was thought to be TMJ however patient sleeps with her mouth open. Potassium 5.3 , chloride 108 BUN 31, creatinine 1.03, troponin 3.790 02/27- patient remains in intensive care unit. She has had a total of 3 units of packed RBCs transfused. Hemoglobin is currently 8.1. BUN 23 and creatinine 1.03. Capillary blood glucose ran between 119 and 131. She underwent EGD and colonoscopy with Dr. Miranda that were normal and scheduled for capsule endoscopy. Patient has been seen by Dr. Abbott regarding facial discomfort which seems to be chronic and atypical not consistent with neuralgia. CAT scan of the brain revealed mild diffuse age-related cerebral atrophy and chronic small vessel ischemic change. No suspicious enhancing mass noted. ESR 58, CRP 30.2. Cardiology is following for non-ST myocardial infarction triggered by severe anemia. Echocardiogram is pending and patient started on Imdur. Patient denies any shortness of breath or cough. No chest pain. She is complaining of her neck bothering her. We will add in PT and OT. 02/28: Patient remains in the ICU. Her hemoglobin was 7 and we will transfuse 1 unit of packed red blood cells. She underwent EGD and colonoscopy with Dr. Miranda with normal findings and had a capsule endoscopic done today. Patient continues to be nothing by mouth and she is requesting to have something to eat at this time. We will start with a consistent carbohydrate diet. Patient denies any shortness of breath, coughing, or chest pain. BUN was 18 creatinine 1.25 03/01 patient examined bedside. Hemoglobin improved to 7.8. No bowel movement since colonoscopy. Capsule endoscopy results pending. Anticoagulation is on hold. We will discuss with cardiology and gastroenterology bedtime to resume the anticoagulation for PE and history of CAD. Vitals are stable saturating well at room air. Patient denies any chest pain, shortness of breath, palpitation, abdominal pain does endorses bloating. Dulcolax suppository ordered Review of Systems: Constitutional: Denies fatigue, Denies chills, Denies fever Eyes: denies blurred vision, denies pain Ears, nose, mouth and throat: Denies headache, Denies sore throat Cardiovascular: Reports decreased exercise tolerance, Reports dyspnea on lying flat, Denies chest pain, Denies lightheadedness, Denies shortness of breath, Denies syncope Respiratory: Denies cough, Denies cough with sputum, Denies dyspnea, Denies excessive sputum, Denies hemoptysis, Denies home oxygen, Denies wheezing Gastrointestinal: Denies abdominal pain, Denies diarrhea, Denies nausea, Denies vomiting reports constipation endorses being bloated Genitourinary: Denies dysuria Musculoskeletal: Denies myalgias. Complains of neck pain. Integumentary: Denies pruritus, Denies rash Neurological: Denies numbness, Denies weakness Psychiatric: Denies anxiety, Denies depression Endocrine: Denies fatigue, Denies weight change Objective - Vital Signs Vital signs: Vital Signs Temp 97.8 F 03/01/18 08:00 Pulse 70 03/01/18 14:00 Resp 27 H 03/01/18 14:00 BP 117/64 03/01/18 14:00 Pulse Ox 96 03/01/18 14:00 Intake & Output 02/28/18 03/01/18 03/01/18 18:59 06:59 18:59 Intake Total 0 810 250 Output Total 0665 897 8560 Balance -1335 85 -875 Weight 120.1 kg 121.2 kg Intake: Oral 500 250 Blood Product 0 310 Rc As-1 Unit 0 310 [id number] Output: Urine 6944 541 1110 Other: Voiding Method Indwelling Catheter Indwelling Catheter Indwelling Catheter - Exam - Constitutional General appearance: Present: cooperative, no acute distress, obese - EENT Eyes: Present: anicteric sclerae, EOMI, PERRLA ENT: Present: hearing grossly normal, NA/AT, normal oropharynx - Neck Neck: Present: normal ROM. Absent: lymphadenopathy, rigidity - Respiratory Respiratory: bilateral: CTA, negative: diminished, dullness, rales, rhonchi, wheezing - Cardiovascular Rhythm: irregularly irregular Heart sounds: normal: S1, S2 Abnormal Heart Sounds: Present: systolic murmur. Absent: diastolic murmur, rub , S3 Gallop, S4 Gallop, click, other - Gastrointestinal General gastrointestinal: Present: normal bowel sounds, soft. Distention positive Absent: organomegaly, tenderness - Genitourinary Genitourinary Comment(s): Indwelling catheter in place draining clear yellow urine dependently - Integumentary Integumentary: Present: normal turgor, pale - Neurologic Neurologic: Present: CNII-XII intact - Musculoskeletal Musculoskeletal: Present: gait normal, generalized weakness, strength equal bilaterally - Psychiatric Psychiatric: Present: A&O x's 3, appropriate affect, intact judgment & insight - Labs CBC & Chem 7: 03/01/18 05:14 03/01/18 05:14 Labs: Abnormal Lab Results - Last 24 Hours (Table) 02/25/18 02/28/18 02/28/18 Range/Units 12:59 14:30 21:03 RBC (3.80-5.40) m/uL Hgb (11.4-16.0) gm/dL Hct (34.0-46.0) % RDW (11.5-15.5) % Sodium (137-145) mmol/L BUN (7-17) mg/dL Creatinine (0.52-1.04) mg/dL POC Glucose (mg/dL) 148 H (75-99) mg/dL Calcium (8.4-10.2) mg/dL Crossmatch See Detail See Detail 03/01/18 03/01/18 03/01/18 Range/Units 05:14 05:14 07:26 RBC 2.87 L (3.80-5.40) m/uL Hgb 7.8 L (11.4-16.0) gm/dL Hct 25.0 L (34.0-46.0) % RDW 16.9 H (11.5-15.5) % Sodium 135 L (137-145) mmol/L BUN 20 H (7-17) mg/dL Creatinine 1.36 H (0.52-1.04) mg/dL POC Glucose (mg/dL) 120 H (75-99) mg/dL Calcium 8.2 L (8.4-10.2) mg/dL Crossmatch 03/01/18 Range/Units 11:51 RBC (3.80-5.40) m/uL Hgb (11.4-16.0) gm/dL Hct (34.0-46.0) % RDW (11.5-15.5) % Sodium (137-145) mmol/L BUN (7-17) mg/dL Creatinine (0.52-1.04) mg/dL POC Glucose (mg/dL) 112 H (75-99) mg/dL Calcium (8.4-10.2) mg/dL Crossmatch Microbiology - Last 24 Hours (Table) 02/28/18 04:00 Urine Culture - Preliminary Urine,Catheterized Gram Neg Bacilli Assessment and Plan Plan: 1. Severe anemia, symptomatic with dyspnea on exertion, chest pain most likely blood losses from the GI tract, GI consult appreciated. upper and lower scope negative 3 units of packed red blood cells completed. Hemoglobin at 7, 1 unit of packed red blood cells to be transfused on 02/28. Hemoglobin improved to 7.8. CBC tomorrow. Anticoagulation is on hold 2 chest pain most likely secondary to demand ischemia mismatch from anemia, Patient is known to have history of coronary disease with multiple angioplasty and stent CK with troponin 3 will be done repeat EKG . Cardiology consult appreciated. Patient was started on Imdur. Echocardiogram shows EF between 50 and 55% hypokinesis at the apex. Plavix is on hold 3 history of large kidney stone in the right side with obstructive uropathy and hydronephrosis Y urostomy and lithotripsy, history of pyelonephritis, resolved follows with urology outpatient 4 history of pulmonary embolism: Has been on anticoagulation with Xarelto, hold anticoagulant medications 5 A. fib with RVR: Post ablation still on blood thinner medication and beta go. hold off anticoagulation Xarelto secondary to GI bleeding 6 history of CVA: Stable with no worsening residual at this point. 7 hypertension: Has been on metoprolol 50 mg twice a day and spironolactone. 8 hyperlipidemia: Off statin because of side effect. 9 hypothyroidism: On levothyroxine 112 g. 11 asthma: On albuterol/ipratropium 4 times a day 12 diabetes: Stop Amaryl, insulin sliding scale weight-based before meals and at bedtime Accu-Chek with sliding scales coverage and be done. 13. Hyperkalemia: Decrease Aldactone to 12.5 mg daily 14. GI prophylaxis: On Pepcid daily. 15 DVT prophylaxis: SCDs in place. 16. Chronic kidney disease stage III 17. History of nephrolithiasis and lithotripsy, ureteral stent placement and removal. CODE STATUS: Full code.
[2018-03-01 18:01] LABS: Glucose,Whole Blood 110 mg/dL (75-99)
[2018-03-01] MEDS: FERROUS SULFATE 325 MG TAB PO SCH (18:04)
[2018-03-01] MEDS: PANTOPRAZOLE 40 MG TABLET PO SCH (18:04)
[2018-03-01] MEDS: MONTELUKAST 10 MG TAB PO SCH (21:03)
[2018-03-01] MEDS: PRAVASTATIN SODIUM 40 MG TAB PO SCH (21:03)
[2018-03-01] MEDS: BISACODYL 10 MG SUPP RECTAL SCH (21:03)
[2018-03-01 21:38] LABS: Glucose,Whole Blood 132 mg/dL (75-99)
[2018-03-02 05:38] LABS: Anisocytosis Slight; HCT 25.2 % (34.0-46.0); HGB 8.1 gm/dL (11.4-16.0); Hypochromasia Marked; MCH 27.2 pg (25.0-35.0); MCV 85.1 fL (80.0-100.0); Mean Platelet Volume 6.6; Platelet Count 239 k/uL (150-450); Poikilocytosis Moderate; RBC 2.96 m/uL (3.80-5.40); RDW 16.6 % (11.5-15.5)
[2018-03-02] MEDS: FUROSEMIDE 40 MG TAB PO SCH (05:55)
[2018-03-02] MEDS: LEVOTHYROXINE 112 MCG TAB PO SCH (05:55)
[2018-03-02 06:13] LABS: Calcium 8.5 mg/dL (8.4-10.2); Magnesium 1.9 mg/dL (1.6-2.3); Potassium 4.4 mmol/L (3.5-5.1)
[2018-03-02] MEDS: BUDESONIDE 0.5 MG/2 ML NEBU INHALATION SCH ×2 (07:25→21:04)
[2018-03-02] MEDS: PANTOPRAZOLE 40 MG TABLET PO SCH ×2 (08:08→17:05)
[2018-03-02] MEDS: SPIRONOLACTONE 25 MG TAB PO SCH (08:08)
[2018-03-02] MEDS: GLIMEPIRIDE 1 MG TAB PO SCH ×2 (08:11→17:06)
[2018-03-02] MEDS: ISOSORBIDE MONONITRATE ER 30 MG TAB.ER.24H PO SCH (08:12)
[2018-03-02] MEDS: DOCUSATE 100 MG CAP PO SCH (08:12)
[2018-03-02] MEDS: NITROFURANTOIN MONOHYD/M-CRYST 100 MG CAP PO SCH (08:13)
[2018-03-02] MEDS: METOPROLOL TARTRATE 25 MG TAB PO SCH ×2 (08:13→20:45)
[2018-03-02] MEDS: INSULIN ASPART 100 UNIT/ML 1 ML 10 ML VIAL SQ SCH ×3 (08:14→17:54)
[2018-03-02] MEDS: ARTIFICIAL TEARS-HYPROMELLOSE DROPS 15 ML BTL BOTH EYES PRN (08:20)
[2018-03-02] MEDS: LISINOPRIL 5 MG TAB PO SCH (09:37)
--- NOTE | 2018-03-02 10:50 | P.PN ---
Subjective Progress Note Date: 03/02/18 This is a 62-year-old female with history of coronary artery disease in atrial fibrillation on Xarelto and also Plavix, was admitted to the hospital to severe anemia and also evidence of non-STEMI. Patient has received 4 units of blood transfusion. Her hemoglobin is about 8.1. She seemed to be comfortable at rest but complains of being short of breath with any activity. Her rate is controlled and she is in sinus rhythm at this time. Apparently , She had a recent cardiac catheterization and was noted to have total occlusion of the stents. Patient does not have any symptoms of angina. Her lungs are clear. She does have some peripheral edema. Patient to mode of the telemetry unit. Investigation is going on to see if there is any source of bleeding. Whether she can go back on anti-cognition therapy needs to be decided. If not, patient could be considered for watchman procedure. Objective - Vital Signs Vital signs: Vital Signs Temp 98.7 F 03/02/18 08:00 Pulse 58 L 03/02/18 10:00 Resp 18 03/02/18 10:00 BP 109/44 03/02/18 10:00 Pulse Ox 96 03/02/18 10:00 Intake & Output 03/01/18 03/02/18 03/02/18 18:59 06:59 18:59 Intake Total 250 500 Output Total 7415 717 0057 Balance -1260 -285 -1525 Weight 119.2 kg Intake: Oral 250 500 Output: Urine 5342 645 0925 Other: Voiding Method Indwelling Catheter Indwelling Catheter Indwelling Catheter - Exam GENERAL EXAM: Patient is alert and oriented and doesn't appear to be in any acute distress HEENT: Normocephalic. Normal reaction of pupils, equal size, normal range of extraocular motion. No erythema or exudates in the throat. NECK: No masses, no nuchal rigidity. CHEST: No chest wall deformity. LUNGS: Equal air entry with no crackles or wheeze. HEART: S1 and S2 normal with no audible mumurs or gallops. Regular rhythm, femorals equal on both sides.. ABDOMEN: No hepatosplenomegaly, normal bowel sounds, no guarding or rigidity. SKIN: No rashes CENTRAL NERVOUS SYSTEM: No focal deficits. EXTREMITIES: Edema of the legs - Labs CBC & Chem 7: 03/02/18 05:15 03/02/18 05:15 Labs: Abnormal Lab Results - Last 24 Hours (Table) 02/28/18 03/01/18 03/01/18 Range/Units 14:30 11:51 17:56 RBC (3.80-5.40) m/uL Hgb (11.4-16.0) gm/dL Hct (34.0-46.0) % RDW (11.5-15.5) % Sodium (137-145) mmol/L BUN (7-17) mg/dL Creatinine (0.52-1.04) mg/dL Glucose (74-99) mg/dL POC Glucose (mg/dL) 112 H 110 H (75-99) mg/dL Crossmatch See Detail 03/01/18 03/02/18 03/02/18 Range/Units 21:23 05:15 05:15 RBC 2.96 L (3.80-5.40) m/uL Hgb 8.1 L (11.4-16.0) gm/dL Hct 25.2 L (34.0-46.0) % RDW 16.6 H (11.5-15.5) % Sodium 134 L (137-145) mmol/L BUN 22 H (7-17) mg/dL Creatinine 1.13 H (0.52-1.04) mg/dL Glucose 127 H (74-99) mg/dL POC Glucose (mg/dL) 132 H (75-99) mg/dL Crossmatch Microbiology - Last 24 Hours (Table) 02/28/18 04:00 Urine Culture - Preliminary Urine,Catheterized Gram Neg Bacilli Assessment and Plan (1) Anemia Current Visit: Yes Status: Acute Code(s): D64.9 - ANEMIA, UNSPECIFIED SNOMED Code(s): 774504370 (2) Elevated troponin Current Visit: Yes Status: Acute Code(s): R74.8 - ABNORMAL LEVELS OF OTHER SERUM ENZYMES SNOMED Code(s): 692176279 (3) GI bleed Current Visit: Yes Status: Acute Code(s): K92.2 - GASTROINTESTINAL HEMORRHAGE, UNSPECIFIED SNOMED Code(s): 60068985 (4) Atrial fibrillation Current Visit: No Status: Acute Code(s): I48.91 - UNSPECIFIED ATRIAL FIBRILLATION SNOMED Code(s): 74666874 (5) COPD (chronic obstructive pulmonary disease) Current Visit: No Status: Acute Code(s): J44.9 - CHRONIC OBSTRUCTIVE PULMONARY DISEASE, UNSPECIFIED SNOMED Code(s): 67435761 (6) DVT (deep venous thrombosis) Current Visit: No Status: Acute Code(s): I82.409 - ACUTE EMBOLISM AND THOMBOS UNSP DEEP VN UNSP LOWER EXTREMITY SNOMED Code(s): 637785839 (7) Non-STEMI (non-ST elevated myocardial infarction) Current Visit: No Status: Acute Code(s): I21.4 - NON-ST ELEVATION (NSTEMI) MYOCARDIAL INFARCTION SNOMED Code(s): 311710800 Plan: Patient seemed to be relatively stable. Free of angina or shortness breath at rest. Patient could be transferred to telemetry unit and increase activity as tolerated.
--- NOTE | 2018-03-02 11:07 | P.PN ---
Subjective Progress Note Date: 03/02/18 Principal diagnosis: Acute non-ST segment elevation myocardial infarction and acute GI bleeding. This is a 62-year-old female with history of multiple medical problems including severe coronary artery disease, multiple stents placed in the past, however the patient was not felt to be a good candidate for coronary artery bypass graft surgery. Apparently she had issues related to her stage III chronic renal failure, and she had issues at the time related to nephrolithiasis and ureteral stent placement. Patient was seen by cardiac surgery, and she was felt to be a high surgical risk, apparently the decision was to treat the patient medically for her ongoing symptoms of angina. Patient has been taking nitroglycerin frequently on a regular basis for intermittent episodes of chest pain. Patient usually sees Dr. Rivera from cardiology. At any rate the patient came in to the emergency room yesterday complaining of chest pain, responded well to nitroglycerin, and her chest pain has been going on and off for the last 1 month. She was also complaining of dyspnea on exertion, radiation of the pain to the left arm, she had intermittent episodes of black stools, and she is on Xarelto she is also on Plavix. At any rate patient hemoglobin was noted to be extremely low. Patient was admitted for blood transfusion, and for further cardiac evaluation. Patient received a total of 3 units of packed RBCs so far since admission, her hemoglobin this morning is 7.9. Her Plavix and Xarelto are presently on hold. Her troponin was noted to be elevated at 3.79. And her stools were positive for Hemoccult blood. Patient was seen by cardiology/Dr. Mallory, and he felt that the patient had non-ST segment elevation myocardial infarction exacerbated by severe anemia with known history of severe coronary artery disease and the patient was non- amenable to percutaneous revascularization and was not felt to be a surgical candidate at a certain time. At any rate patient is in the ICU at present, she continues to have occasional intermittent chest pains, presently no nausea no vomiting no abdominal pain, she did have black stools earlier. Denies any headaches no blurred vision no dizziness. No nausea no vomiting no dysuria and no frequency no urgency. Patient was placed on Protonix, and she will be seen by gastroenterology. Her last colonoscopy was over 10 years ago. Patient never had any history of GI bleeding in the past medical history of peptic ulcer disease, and no history of diverticulosis. Patient was reevaluated today on 02/27/2018, she underwent EGD and colonoscopy, and both came back nondiagnostic. Hence a capsule endoscopy was recommended, and it is being started today. In the meantime the patient's hemoglobin is 8.1 today, and she received a total of 3 units of packed RBCs since admission. Patient denies any shortness of breath, no cough, and no chest pain. Basic metabolic profile is relatively normal. Reevaluated today on 02/28/2018, patient is doing well, relatively asymptomatic , however her hemoglobin is down to 7.0, patient does have history of significant underlying coronary artery disease, hence I recommended at least a unit of packed RBCs to be given today, patient already had a non-ST elevation myocardial infarction related to low hemoglobin. It is best to transfuse the patient at this point rather than waiting until the hemoglobin drops again. No bowel movements over the last 24 hours. Patient had EGD and colonoscopy they were both nondiagnostic. However she is obviously still oozing somewhat in the GI tract. She had positive Hemoccult stools on presentation. She received a total of 3 units of packed RBCs since admission, and today she'll be receiving her fourth unit. All labs were reviewed including basic metabolic profile and renal profile. Reevaluated today on 03/01/2018, patient remains in the ICU, not having any active GI bleeding, received a unit of packed RBCs yesterday, and her hemoglobin today is 7.8. Denies any chest pain, denies any shortness of breath no cough no wheezing. All labs were reviewed. And results of that capsule endoscopy are pending. The patient is seen again today 03/02/2018 in follow-up in the intensive care unit. She is currently awake and alert in no acute distress. She denies any worsening shortness of breath, cough or congestion. She is currently maintaining good O2 saturations in the 90s on 2 L pertinent per nasal cannula. She's currently afebrile. Hemodynamically stable. No current IVs. Hemoglobin 8.1. She is now status post 4 units packed red blood cell transfusions. Urine cultures positive for Klebsiella pneumoniae him a ESBL. Currently on Macrodantin. Cardiology is following no plans for intervention at this time. GI services are following as well. Objective - Vital Signs Vital signs: Vital Signs Temp 98.7 F 03/02/18 08:00 Pulse 58 L 03/02/18 10:00 Resp 18 03/02/18 10:00 BP 109/44 03/02/18 10:00 Pulse Ox 96 03/02/18 10:00 Intake & Output 03/01/18 03/02/18 03/02/18 18:59 06:59 18:59 Intake Total 250 500 Output Total 8984 982 5178 Balance -1260 -285 -1525 Weight 119.2 kg Intake: Oral 250 500 Output: Urine 7046 435 3805 Other: Voiding Method Indwelling Catheter Indwelling Catheter Indwelling Catheter - Exam GENERAL EXAM: Obese. Alert, active, comfortable in no apparent distress. On 2 L/m per nasal cannula HEAD: Normocephalic. EYES: Normal reaction of pupils, equal size. NOSE: Clear with pink turbinates. THROAT: No erythema or exudates. NECK: No masses, no JVD. CHEST: No chest wall deformity. LUNGS: Equal air entry with no crackles, wheeze, rhonchi or dullness. CVS: S1 and S2 normal with no audible murmur, regular rhythm. ABDOMEN: No hepatosplenomegaly, normal bowel sounds, no guarding or rigidity. SPINE: No scoliosis or deformity SKIN: No rashes CENTRAL NERVOUS SYSTEM: No focal deficits, tone is normal in all 4 extremities. EXTREMITIES: There is no peripheral edema. No clubbing, no cyanosis. Peripheral pulses are intact. - Labs CBC & Chem 7: 03/02/18 05:15 03/02/18 05:15 Labs: Abnormal Lab Results - Last 24 Hours (Table) 02/28/18 03/01/18 03/01/18 Range/Units 14:30 11:51 17:56 RBC (3.80-5.40) m/uL Hgb (11.4-16.0) gm/dL Hct (34.0-46.0) % RDW (11.5-15.5) % Sodium (137-145) mmol/L BUN (7-17) mg/dL Creatinine (0.52-1.04) mg/dL Glucose (74-99) mg/dL POC Glucose (mg/dL) 112 H 110 H (75-99) mg/dL Crossmatch See Detail 03/01/18 03/02/18 03/02/18 Range/Units 21:23 05:15 05:15 RBC 2.96 L (3.80-5.40) m/uL Hgb 8.1 L (11.4-16.0) gm/dL Hct 25.2 L (34.0-46.0) % RDW 16.6 H (11.5-15.5) % Sodium 134 L (137-145) mmol/L BUN 22 H (7-17) mg/dL Creatinine 1.13 H (0.52-1.04) mg/dL Glucose 127 H (74-99) mg/dL POC Glucose (mg/dL) 132 H (75-99) mg/dL Crossmatch Microbiology - Last 24 Hours (Table) 02/28/18 04:00 Urine Culture - Final Urine,Catheterized Klebsiella pneumoniae Assessment and Plan Assessment: Impression: 1 acute non-ST elevation myocardial infarction in a patient with known history of severe coronary artery disease, triggered by profound anemia secondary to GI bleeding. Again most likely triggered by the fact that the patient is on anticoagulation therapy for her underlying coronary artery disease and underlying atrial fibrillation. 2 severe anemia secondary to GI blood losses., EGD and colonoscopy are both nondiagnostic, hence capsule endoscopy was recommended by gastroenterology. 3 chronic kidney disease stage III, sees nephrology on a regular basis. 4 history of nephrolithiasis, lithotripsy, and ureteral stent placement. 5 history of paroxysmal atrial fibrillation. Previous ablation. 6 history of hypertension 7 history of hypothyroidism on replacement therapy 8 history of mild intermittent asthma presently inactive 9 history of type 2 diabetes 10 history of dyslipidemia. 11 history of pulmonary embolism. Recommendation: The patient was seen and evaluated by Dr. Taveras. She is currently stable from the pulmonary and critical care standpoint. Be transferred out of the ICU today. Anticoagulation per cardiology/GI services. We'll discontinue her Macrodantin and started her on Zosyn for her urinary tract infection of Klebsiella pneumoniae, ESBL. We'll continue to follow make further recommendations based on her clinical status. Critical care time 35 minutes. I, the cosigning physician, performed a history & physical examination of the patient. Lungs sounds are clear. Maintaining good O2 saturations in the 90s on 2 L/m per nasal cannula. I discussed the assessment and plan of care with my nurse practitioner, Josiane Muñiz. I attest to the above note as dictated by her.
[2018-03-02 11:41] LABS: ANA Pattern Speckled; ANA Pattern 2 Nucleolar
[2018-03-02] MEDS: FERROUS SULFATE 325 MG TAB PO SCH (11:48)
[2018-03-02 11:57] LABS: Glucose,Whole Blood 136 mg/dL (75-99)
[2018-03-02] MEDS ORDERED: LACTULOSE 20 GM/30 ML CUP PO ONE (13:00)
[2018-03-02] MEDS: ERTAPENEM 1 GM in SODIUM CHLORIDE 0.9% 50 ML IVPB SCH (14:08)
[2018-03-02] MEDS: ALPRAZolam 0.25 MG TAB PO PRN ×2 (15:09→20:45)
--- NOTE | 2018-03-02 15:46 | P.PN ---
Subjective Progress Note Date: 03/02/18 Progress Note Date: 02/26/18 62-year-old obese female one of my patient with multiple medical problem known to have history of diabetes hypertension hyperlipidemia coronary disease post angioplasty and stent placement in the past, also history of pulmonary embolism paroxysmal atrophy fibrillation with ablation still on anticoagulation. Patient not seen Dr. Deluca, seen Dr. Taylor cardiology regular basis also had seen urology in the past for history of kidney stone. On antibiotic prophylaxis with nitrofurantoin Patient comes in to the emergency room secondary to chest discomfort over the past 1 month, increasing in intensity, radiating to the left arm, also with shortness of breath this man exertion, nausea, patient denies any abdominal pain vomiting or diarrhea, no fever no chills no cough. Patient denies any melena hematochezia, however when seen in the emergency room, she is significantly anemic, patient is on Xarelto at any medication changes, next Emergency room, EKG shows sinus tach cardia 106, no acute ST-T wave changes, hemoglobin was 4.8, previous off 7.1, potassium of 5.1, creatinine of 1.17, glucose 136, liver function tests normal, troponins 0.125 Xarelto on hold secondary to cyclical secondary to severe anemia, consults with cardiology and GI, blood is positive. Total of 3 units of packed red blood cells to be given today for hemoglobin of 4, expected hemoglobin rise to be around 7 with a 3 units 02/26: Patient is resting comfortably in bed. She still is having episodes of orthopnea. Patient denies cough or pain at this time. She has had a total of 3 rbc's completed her initial hemoglobin was 4.8 hemoglobin at this time is 7.7. We have stopped her blood thinner at this time. She has been evaluated by GI and the plan is for them to perform a upper and lower scope tomorrow. Patient is complaining of some constipation. She does have history of black stool however she is on iron replacement. Patient has a history of blood clots her last pulmonary embolism was in February 2017. Patient is also complaining of right sided jaw pain which has been going on for about 6 months initially it was thought to be TMJ however patient sleeps with her mouth open. Potassium 5.3 , chloride 108 BUN 31, creatinine 1.03, troponin 3.790 02/27- patient remains in intensive care unit. She has had a total of 3 units of packed RBCs transfused. Hemoglobin is currently 8.1. BUN 23 and creatinine 1.03. Capillary blood glucose ran between 119 and 131. She underwent EGD and colonoscopy with Dr. Miranda that were normal and scheduled for capsule endoscopy. Patient has been seen by Dr. Abbott regarding facial discomfort which seems to be chronic and atypical not consistent with neuralgia. CAT scan of the brain revealed mild diffuse age-related cerebral atrophy and chronic small vessel ischemic change. No suspicious enhancing mass noted. ESR 58, CRP 30.2. Cardiology is following for non-ST myocardial infarction triggered by severe anemia. Echocardiogram is pending and patient started on Imdur. Patient denies any shortness of breath or cough. No chest pain. She is complaining of her neck bothering her. We will add in PT and OT. 02/28: Patient remains in the ICU. Her hemoglobin was 7 and we will transfuse 1 unit of packed red blood cells. She underwent EGD and colonoscopy with Dr. Miranda with normal findings and had a capsule endoscopic done today. Patient continues to be nothing by mouth and she is requesting to have something to eat at this time. We will start with a consistent carbohydrate diet. Patient denies any shortness of breath, coughing, or chest pain. BUN was 18 creatinine 1.25 03/01 patient examined bedside. Hemoglobin improved to 7.8. No bowel movement since colonoscopy. Capsule endoscopy results pending. Anticoagulation is on hold. We will discuss with cardiology and gastroenterology bedtime to resume the anticoagulation for PE and history of CAD. Vitals are stable saturating well at room air. Patient denies any chest pain, shortness of breath, palpitation, abdominal pain does endorses bloating. Dulcolax suppository ordered 03/02: Patient continues to have a bowel movement and lactulose once ordered. Urine cultures positive for Klebsiella pneumoniae ESBL and consult placed with Dr. Olivo. Patient is currently on ertapenem. Anticipate discharge to [facility] tomorrow Review of Systems: Constitutional: Denies fatigue, Denies chills, Denies fever, completes of generalized weakness Eyes: denies blurred vision, denies pain Ears, nose, mouth and throat: Denies headache, Denies sore throat Cardiovascular: Reports decreased exercise tolerance, Reports dyspnea on lying flat, Denies chest pain, Denies lightheadedness, Denies shortness of breath, Denies syncope Respiratory: Denies cough, Denies cough with sputum, Denies dyspnea, Denies excessive sputum, Denies hemoptysis, Denies home oxygen, Denies wheezing Gastrointestinal: Denies abdominal pain, Denies diarrhea, Denies nausea, Denies vomiting reports constipation Genitourinary: Denies dysuria Musculoskeletal: Denies myalgias. Complains of neck pain. Integumentary: Denies pruritus, Denies rash Neurological: Denies numbness, complains of weakness Psychiatric: Denies anxiety, Denies depression Endocrine: Denies fatigue, Denies weight change Objective - Vital Signs Vital signs: Vital Signs Temp 98.3 F 03/02/18 12:00 Pulse 67 03/02/18 13:00 Resp 14 03/02/18 13:00 BP 106/79 03/02/18 13:00 Pulse Ox 97 03/02/18 13:00 Intake & Output 03/01/18 03/02/18 03/02/18 18:59 06:59 18:59 Intake Total 250 500 Output Total 1182 205 4011 Balance -1260 -285 -2370 Weight 119.2 kg Intake: Oral 250 500 Output: Urine 9736 642 6134 Other: Voiding Method Indwelling Catheter Indwelling Catheter Indwelling Catheter - Exam General appearance: Present: cooperative, no acute distress, obese - EENT Eyes: Present: anicteric sclerae, EOMI, PERRLA ENT: Present: hearing grossly normal, NA/AT, normal oropharynx - Neck Neck: Present: normal ROM. Absent: lymphadenopathy, rigidity - Respiratory Respiratory: bilateral: CTA, negative: diminished, dullness, rales, rhonchi, wheezing - Cardiovascular Rhythm: irregularly irregular Heart sounds: normal: S1, S2 Abnormal Heart Sounds: Present: systolic murmur. Absent: diastolic murmur, rub , S3 Gallop, S4 Gallop, click, other - Gastrointestinal General gastrointestinal: Present: normal bowel sounds, soft. Distention positive Absent: organomegaly, tenderness - Genitourinary Genitourinary Comment(s): Indwelling catheter in place draining clear yellow urine dependently - Integumentary Integumentary: Present: normal turgor, pale - Neurologic Neurologic: Present: CNII-XII intact - Musculoskeletal Musculoskeletal: Present: gait not assessed, generalized weakness, strength equal bilaterally - Psychiatric Psychiatric: Present: A&O x's 3, appropriate affect, intact judgment & insight - Labs CBC & Chem 7: 03/02/18 05:15 03/02/18 05:15 Labs: Abnormal Lab Results - Last 24 Hours (Table) 02/28/18 03/01/18 03/01/18 Range/Units 14:30 17:56 21:23 RBC (3.80-5.40) m/uL Hgb (11.4-16.0) gm/dL Hct (34.0-46.0) % RDW (11.5-15.5) % Sodium (137-145) mmol/L BUN (7-17) mg/dL Creatinine (0.52-1.04) mg/dL Glucose (74-99) mg/dL POC Glucose (mg/dL) 110 H 132 H (75-99) mg/dL Crossmatch See Detail 03/02/18 03/02/18 03/02/18 Range/Units 05:15 05:15 11:42 RBC 2.96 L (3.80-5.40) m/uL Hgb 8.1 L (11.4-16.0) gm/dL Hct 25.2 L (34.0-46.0) % RDW 16.6 H (11.5-15.5) % Sodium 134 L (137-145) mmol/L BUN 22 H (7-17) mg/dL Creatinine 1.13 H (0.52-1.04) mg/dL Glucose 127 H (74-99) mg/dL POC Glucose (mg/dL) 136 H (75-99) mg/dL Crossmatch Microbiology - Last 24 Hours (Table) 02/28/18 04:00 Urine Culture - Final Urine,Catheterized Klebsiella pneumoniae Assessment and Plan Plan: 1. Severe anemia, symptomatic with dyspnea on exertion, chest pain most likely blood losses from the GI tract, GI consult appreciated. Status post upper and lower scope negative. Capsule endoscopy pending. Anticoagulation on hold. Status post total of 4 units of packed RBCs transfused. 2. Non-ST elevated myocardial infarction. Cardiology consult appreciated. Patient started on Imdur. Echocardiogram ordered. 3. history of large kidney stone in the right side with obstructive uropathy and hydronephrosis Y urostomy and lithotripsy, history of pyelonephritis, resolved follows with urology outpatient 4. history of pulmonary embolism: Has been on anticoagulation with Xarelto, hold anticoagulant medications 5. A. fib with RVR with paroxysmal atrial fibrillation currently in sinus rhythm: Post ablation still on blood thinner medication and beta go. He would hold off anticoagulation Xarelto secondary to GI bleeding 6. History of CVA: Stable with no worsening residual at this point. 7. hypertension: Has been on metoprolol 50 mg twice a day and spironolactone. 8. hyperlipidemia: Off statin because of side effect. 9. hypothyroidism: On levothyroxine 112 g. 11. asthma: On albuterol/ipratropium 4 times a day 12. Diabetes mellitus type 2. Stop Amaryl, start insulin sliding scale weight- based before meals and at bedtime Accu-Chek with sliding scales coverage and be done. 13. Hyperkalemia: Decrease Aldactone to 12.5 mg daily 14. GI prophylaxis: On Pepcid daily. 15. DVT prophylaxis: SCDs in place. 16. Chronic kidney disease stage III 17. History of nephrolithiasis and lithotripsy, ureteral stent placement and removal. CODE STATUS: Full code. Discharge plan: on Friday Impression and plan of care have been directed as dictated by the signing physician. Ester Hobson nurse practitioner acting as scribe for signing physician.
[2018-03-02] MEDS ORDERED: PIPERACILLIN-TAZOBACTAM 3.375 GM in SODIUM CHLORIDE 0.9% 100 ML IVPB SCH (16:00)
[2018-03-02 17:13] LABS: Glucose,Whole Blood 149 mg/dL (75-99)
[2018-03-02 20:27] LABS: Glucose,Whole Blood 129 mg/dL (75-99)
[2018-03-02] MEDS: MONTELUKAST 10 MG TAB PO SCH (20:46)
[2018-03-02] MEDS: PRAVASTATIN SODIUM 40 MG TAB PO SCH (20:47)
[2018-03-02] MEDS: BISACODYL 10 MG SUPP RECTAL SCH (22:00)
--- NOTE | 2018-03-03 01:43 | CONS ---
CONSULTATION DATE OF SERVICE: 03/02/2018 REASON FOR CONSULTATION: ESBL E coli urinary tract infection. HISTORY OF PRESENT ILLNESS: The patient is a 62-year-old presenting to the ER at [facility] on 02/25/2018 with the chief complaint of chest pain in a patient who did have a history of underlying coronary artery disease with angioplasty and stent. The patient was evaluated by the ER physician. On arrival in the ER, the patient was noted to have a hemoglobin of 4.8 and was subsequently admitted to the ICU. The patient has been transfused with multiple blood units and subsequently did have EGD and colonoscopy, with no evidence of any active bleeding. While in the hospital the patient also got a Corbin catheter in a patient who denies having any difficulty with urination before coming to the hospital. However, the patient does give a history of recurrent and chronic UTI and states she has been on antibiotics for almost 6 months now. A UA was obtained from the Corbin that was placed on 02/25/2018 which was positive, and the cultures came back today with ESBL E coli. That prompted this infectious disease consultation. Patient currently has been on IV Zosyn. The patient's chest pain has resolved. The patient denies having any shortness of breath. She did have mild cough but not bringing up any sputum. No nausea, no vomiting. No abdominal pain and no diarrhea. REVIEW OF SYSTEMS: Positive points have been mentioned in the HPI. Rest of the systems have been negative. PAST MEDICAL HISTORY: 1. Atrial fibrillation. 2. Coronary artery disease. 3. Heart failure. 4. CVA, TIA. 5. Diabetes mellitus. 6. DVT. 7. Fibromyalgia. 8. Hyperlipidemia. 9. PE. 10.Hypertension. 11.Hypothyroidism. 12.Chronic UTI. PAST SURGICAL HISTORY: 1. Appendectomy. 2. Cardiac ablation. 3. Cholecystectomy. 4. Heart catheterization with stent. 5. Hysterectomy: SOCIAL HISTORY: Remote history of smoking. No drinking or drug use. FAMILY HISTORY: Father with history coronary artery disease. Mother with history of cancer. ALLERGIES: 1. LATEX. 2. MILK-CONTAINING PRODUCTS. 3. TETRACYCLINE. MEDICATION: Current medications include: 1. Zosyn. 2. Mack. 3. Xanax. 4. Dulcolax. 5. Pulmicort. 6. Colace. 7. Iron sulfate. 8. Lasix. 9. Amaryl. 10.NovoLog. 11.Imdur. 12.Synthroid. 13.Zestril. 14.Lopressor. 15.Singulair. 16.Nitrostat. 17.Protonix. 18.Pravachol. 19.Aldactone. PHYSICAL EXAMINATION: Blood pressure is 116/68 with a pulse of 75, temperature 98.1. She is 96% on room air. General description is a middle-aged female up in the chair in no distress. No tachypnea or accessory muscle of respiration use. HEENT examination shows pallor. No scleral icterus. Oral mucosal membrane is dry. No pharyngeal erythema or thrush. NECK: Trachea is central. No thyromegaly. LUNGS: Unlabored breathing with decreased breath sounds in the bases. No wheeze or crackle. HEART: S1, S2. Regular rate and rhythm. ABDOMEN: Soft. No tenderness. No guarding or rigidity. EXTREMITIES: Some trace edema of the feet. SKIN EXAMINATION: Bruises. No rash or mass palpable. Neurologically patient is awake, alert, oriented x3. Mood and affect normal. LABS: The last blood work was on 02/27, when the hemoglobin was 8.19, white count 9.2, BUN of 22, creatinine 1.13. UA done on 02/28 showed leukocyte esterase, more than 182 WBCs; currently showing more than 100,000 colonies of ESBL Klebsiella pneumoniae. DIAGNOSTIC IMPRESSION AND PLAN: Patient with extended-spectrum beta-lactamase Klebsiella positive urine culture that was obtained from the Corbin catheter that was placed on 02/25 in a patient who does give a history of chronic urinary tract infection and has been on chronic antibiotic therapy. However, the patient lacks systemic symptoms of any fever, flank pain or any elevated white count; possibly mild cystitis. PLAN: 1. Advise discontinuing the Corbin catheter and repeat UA and culture. 2. Will start the patient on Invanz 1 gram daily which the patient can get through a peripheral IV for about 3-5 days maximum. 3. We will follow up on the clinical condition to further adjust medication if needed. Thank you for this consultation. Will follow this patient along with you. MMODL / IJN: [id number] /
[2018-03-03 05:22] LABS: Magnesium 1.9 mg/dL (1.6-2.3); Phosphorus 3.7 mg/dL (2.5-4.5); Potassium 4.7 mmol/L (3.5-5.1)
[2018-03-03 05:35] LABS: Anisocytosis Slight; HCT 29.2 % (34.0-46.0); HGB 8.7 gm/dL (11.4-16.0); Hypochromasia Marked; MCH 25.9 pg (25.0-35.0); MCHC 29.8 g/dL (31.0-37.0); MCV 87.1 fL (80.0-100.0); Mean Platelet Volume 7.5; Platelet Count 242 k/uL (150-450); Poikilocytosis Moderate; RBC 3.35 m/uL (3.80-5.40); RDW 16.5 % (11.5-15.5)
[2018-03-03 06:50] LABS: Glucose,Whole Blood 146 mg/dL (75-99)
[2018-03-03] MEDS: INSULIN ASPART 100 UNIT/ML 1 ML 10 ML VIAL SQ SCH ×2 (06:56→12:19)
[2018-03-03] MEDS: LEVOTHYROXINE 112 MCG TAB PO SCH (06:57)
[2018-03-03] MEDS: PANTOPRAZOLE 40 MG TABLET PO SCH (06:57)
[2018-03-03] MEDS: GLIMEPIRIDE 1 MG TAB PO SCH (06:57)
[2018-03-03] MEDS: FUROSEMIDE 40 MG TAB PO SCH (06:57)
[2018-03-03] MEDS: BUDESONIDE 0.5 MG/2 ML NEBU INHALATION SCH (07:24)
[2018-03-03] MEDS: SPIRONOLACTONE 25 MG TAB PO SCH (08:33)
[2018-03-03] MEDS: ISOSORBIDE MONONITRATE ER 30 MG TAB.ER.24H PO SCH (08:33)
[2018-03-03] MEDS: DOCUSATE 100 MG CAP PO SCH (08:33)
[2018-03-03] MEDS: LISINOPRIL 5 MG TAB PO SCH (08:34)
[2018-03-03] MEDS: METOPROLOL TARTRATE 25 MG TAB PO SCH (08:34)
--- NOTE | 2018-03-03 09:12 | P.PN ---
Subjective Progress Note Date: 03/03/18 This is a 62-year-old female with history of coronary artery disease in atrial fibrillation on Xarelto and also Plavix, was admitted to the hospital to severe anemia and also evidence of non-STEMI. Patient has received 4 units of blood transfusion. Her hemoglobin is about 8.1. She seemed to be comfortable at rest but complains of being short of breath with any activity. Her rate is controlled and she is in sinus rhythm at this time. Apparently , She had a recent cardiac catheterization and was noted to have total occlusion of the stents. Patient does not have any symptoms of angina. Her lungs are clear. She does have some peripheral edema. Patient to mode of the telemetry unit. Investigation is going on to see if there is any source of bleeding. Whether she can go back on anti-cognition therapy needs to be decided. If not, patient could be considered for watchman procedure. 03/03/2018: This 61-year-old female is admitted with a GI bleeding. Patient has history of coronary artery disease and also atrial fibrillation. This was of the bleeding could not be established. Her hemoglobin is about 8.7. Patient 's needs to go back on combination of low-dose aspirin and probably low-dose Xarelto at 15. We're going to discuss with the gastroenterology before starting anticoagulation and antiplatelet agents. Denies any chest pain or shortness of breath Objective - Vital Signs Vital signs: Vital Signs Temp 97.8 F 03/03/18 08:00 Pulse 56 L 03/03/18 08:00 Resp 11 L 03/03/18 08:00 BP 88/36 03/03/18 08:00 Pulse Ox 100 03/03/18 08:00 Intake & Output 03/02/18 03/03/18 03/03/18 18:59 06:59 18:59 Output Total 2820 450 250 Balance -2820 -450 -250 Weight 118.5 kg Output: Urine 2820 450 250 Other: Voiding Method Indwelling Catheter Indwelling Catheter - Exam GENERAL EXAM: Patient is alert and oriented and doesn't appear to be in any acute distress HEENT: Normocephalic. Normal reaction of pupils, equal size, normal range of extraocular motion. No erythema or exudates in the throat. NECK: No masses, no nuchal rigidity. CHEST: No chest wall deformity. LUNGS: Equal air entry with no crackles or wheeze. HEART: S1 and S2 normal with no audible mumurs or gallops. Regular rhythm, femorals equal on both sides.. ABDOMEN: No hepatosplenomegaly, normal bowel sounds, no guarding or rigidity. SKIN: No rashes CENTRAL NERVOUS SYSTEM: No focal deficits. EXTREMITIES: Edema of the legs - Labs CBC & Chem 7: 03/03/18 04:40 03/03/18 04:40 Labs: Abnormal Lab Results - Last 24 Hours (Table) 03/02/18 03/02/18 03/02/18 Range/Units 11:42 17:10 20:23 RBC (3.80-5.40) m/uL Hgb (11.4-16.0) gm/dL Hct (34.0-46.0) % MCHC (31.0-37.0) g/dL RDW (11.5-15.5) % BUN (7-17) mg/dL Creatinine (0.52-1.04) mg/dL Glucose (74-99) mg/dL POC Glucose (mg/dL) 136 H 149 H 129 H (75-99) mg/dL 03/03/18 03/03/18 03/03/18 Range/Units 04:40 04:40 06:48 RBC 3.35 L (3.80-5.40) m/uL Hgb 8.7 L (11.4-16.0) gm/dL Hct 29.2 L (34.0-46.0) % MCHC 29.8 L (31.0-37.0) g/dL RDW 16.5 H (11.5-15.5) % BUN 20 H (7-17) mg/dL Creatinine 1.14 H (0.52-1.04) mg/dL Glucose 135 H (74-99) mg/dL POC Glucose (mg/dL) 146 H (75-99) mg/dL Microbiology - Last 24 Hours (Table) 02/28/18 04:00 Urine Culture - Final Urine,Catheterized Klebsiella pneumoniae Assessment and Plan (1) Anemia Current Visit: Yes Status: Acute Code(s): D64.9 - ANEMIA, UNSPECIFIED SNOMED Code(s): 428341803 (2) Elevated troponin Current Visit: Yes Status: Acute Code(s): R74.8 - ABNORMAL LEVELS OF OTHER SERUM ENZYMES SNOMED Code(s): 365901112 (3) GI bleed Current Visit: Yes Status: Acute Code(s): K92.2 - GASTROINTESTINAL HEMORRHAGE, UNSPECIFIED SNOMED Code(s): 31816191 (4) Atrial fibrillation Current Visit: No Status: Acute Code(s): I48.91 - UNSPECIFIED ATRIAL FIBRILLATION SNOMED Code(s): 10138090 (5) COPD (chronic obstructive pulmonary disease) Current Visit: No Status: Acute Code(s): J44.9 - CHRONIC OBSTRUCTIVE PULMONARY DISEASE, UNSPECIFIED SNOMED Code(s): 59109948 (6) DVT (deep venous thrombosis) Current Visit: No Status: Acute Code(s): I82.409 - ACUTE EMBOLISM AND THOMBOS UNSP DEEP VN UNSP LOWER EXTREMITY SNOMED Code(s): 820945661 (7) Non-STEMI (non-ST elevated myocardial infarction) Current Visit: No Status: Acute Code(s): I21.4 - NON-ST ELEVATION (NSTEMI) MYOCARDIAL INFARCTION SNOMED Code(s): 469448497 Plan: Patient is clinically stable. Hemoglobin is 8.7. Apparently no definite GI source of bleeding could be established. If it's okay with the GI department, patient needs to go back on at least baby aspirin on low-dose Xarelto. Continue rest of the medication. Follow-up in the office
--- NOTE | 2018-03-03 10:52 | P.PN ---
Subjective Progress Note Date: 03/03/18 Principal diagnosis: Acute non-ST segment elevated myocardial infarction and acute GI bleeding This is a 62-year-old female with history of multiple medical problems including severe coronary artery disease, multiple stents placed in the past, however the patient was not felt to be a good candidate for coronary artery bypass graft surgery. Apparently she had issues related to her stage III chronic renal failure, and she had issues at the time related to nephrolithiasis and ureteral stent placement. Patient was seen by cardiac surgery, and she was felt to be a high surgical risk, apparently the decision was to treat the patient medically for her ongoing symptoms of angina. Patient has been taking nitroglycerin frequently on a regular basis for intermittent episodes of chest pain. Patient usually sees Dr. Rivera from cardiology. At any rate the patient came in to the emergency room yesterday complaining of chest pain, responded well to nitroglycerin, and her chest pain has been going on and off for the last 1 month. She was also complaining of dyspnea on exertion, radiation of the pain to the left arm, she had intermittent episodes of black stools, and she is on Xarelto she is also on Plavix. At any rate patient hemoglobin was noted to be extremely low. Patient was admitted for blood transfusion, and for further cardiac evaluation. Patient received a total of 3 units of packed RBCs so far since admission, her hemoglobin this morning is 7.9. Her Plavix and Xarelto are presently on hold. Her troponin was noted to be elevated at 3.79. And her stools were positive for Hemoccult blood. Patient was seen by cardiology/Dr. Mallory, and he felt that the patient had non-ST segment elevation myocardial infarction exacerbated by severe anemia with known history of severe coronary artery disease and the patient was non- amenable to percutaneous revascularization and was not felt to be a surgical candidate at a certain time. At any rate patient is in the ICU at present, she continues to have occasional intermittent chest pains, presently no nausea no vomiting no abdominal pain, she did have black stools earlier. Denies any headaches no blurred vision no dizziness. No nausea no vomiting no dysuria and no frequency no urgency. Patient was placed on Protonix, and she will be seen by gastroenterology. Her last colonoscopy was over 10 years ago. Patient never had any history of GI bleeding in the past medical history of peptic ulcer disease, and no history of diverticulosis. Patient was reevaluated today on 02/27/2018, she underwent EGD and colonoscopy, and both came back nondiagnostic. Hence a capsule endoscopy was recommended, and it is being started today. In the meantime the patient's hemoglobin is 8.1 today, and she received a total of 3 units of packed RBCs since admission. Patient denies any shortness of breath, no cough, and no chest pain. Basic metabolic profile is relatively normal. Reevaluated today on 02/28/2018, patient is doing well, relatively asymptomatic , however her hemoglobin is down to 7.0, patient does have history of significant underlying coronary artery disease, hence I recommended at least a unit of packed RBCs to be given today, patient already had a non-ST elevation myocardial infarction related to low hemoglobin. It is best to transfuse the patient at this point rather than waiting until the hemoglobin drops again. No bowel movements over the last 24 hours. Patient had EGD and colonoscopy they were both nondiagnostic. However she is obviously still oozing somewhat in the GI tract. She had positive Hemoccult stools on presentation. She received a total of 3 units of packed RBCs since admission, and today she'll be receiving her fourth unit. All labs were reviewed including basic metabolic profile and renal profile. Reevaluated today on 03/01/2018, patient remains in the ICU, not having any active GI bleeding, received a unit of packed RBCs yesterday, and her hemoglobin today is 7.8. Denies any chest pain, denies any shortness of breath no cough no wheezing. All labs were reviewed. And results of that capsule endoscopy are pending. The patient is seen again today 03/02/2018 in follow-up in the intensive care unit. She is currently awake and alert in no acute distress. She denies any worsening shortness of breath, cough or congestion. She is currently maintaining good O2 saturations in the 90s on 2 L pertinent per nasal cannula. She's currently afebrile. Hemodynamically stable. No current IVs. Hemoglobin 8.1. She is now status post 4 units packed red blood cell transfusions. Urine cultures positive for Klebsiella pneumoniae him a ESBL. Currently on Macrodantin. Cardiology is following no plans for intervention at this time. GI services are following as well. On 03/03/2018 patient seen in follow-up in the intensive care unit, she is awake and alert oriented 3, in no acute distress, pulse ox on 2 L per nasal cannula as 100%, she is hemodynamically stable, afebrile. No dyspnea, no chest pain, no abdominal pain, no further episodes of GI bleeding since admission. Today's lab work has been reviewed, and shows hemoglobin of 8.7, white blood cell count of 9.0, renal profile stable, BUN is 20, creatinine is 1.14. Patient has no specific complaints today. Status post transfusion with 4 units of packed red blood cells. Cardiology is following, patient is being medically treated. No intervention at this time. GI service is following. Objective - Vital Signs Vital signs: Vital Signs Temp 97.8 F 03/03/18 08:00 Pulse 56 L 03/03/18 08:00 Resp 11 L 03/03/18 08:00 BP 88/36 03/03/18 08:00 Pulse Ox 100 03/03/18 08:00 Intake & Output 03/02/18 03/03/18 03/03/18 18:59 06:59 18:59 Output Total 2820 450 250 Balance -2820 -450 -250 Weight 118.5 kg Output: Urine 2820 450 250 Other: Voiding Method Indwelling Catheter Indwelling Catheter Indwelling Catheter - Exam GENERAL EXAM: Obese. Alert, active, comfortable in no apparent distress. On 2 L/m per nasal cannula HEAD: Normocephalic. EYES: Normal reaction of pupils, equal size. NOSE: Clear with pink turbinates. THROAT: No erythema or exudates. NECK: No masses, no JVD. CHEST: No chest wall deformity. LUNGS: Equal air entry with no crackles, wheeze, rhonchi or dullness. CVS: S1 and S2 normal with no audible murmur, regular rhythm. ABDOMEN: No hepatosplenomegaly, normal bowel sounds, no guarding or rigidity. SPINE: No scoliosis or deformity SKIN: No rashes CENTRAL NERVOUS SYSTEM: No focal deficits, tone is normal in all 4 extremities. EXTREMITIES: There is no peripheral edema. No clubbing, no cyanosis. Peripheral pulses are intact. - Labs CBC & Chem 7: 03/03/18 04:40 03/03/18 04:40 Labs: Abnormal Lab Results - Last 24 Hours (Table) 03/02/18 03/02/18 03/02/18 Range/Units 11:42 17:10 20:23 RBC (3.80-5.40) m/uL Hgb (11.4-16.0) gm/dL Hct (34.0-46.0) % MCHC (31.0-37.0) g/dL RDW (11.5-15.5) % BUN (7-17) mg/dL Creatinine (0.52-1.04) mg/dL Glucose (74-99) mg/dL POC Glucose (mg/dL) 136 H 149 H 129 H (75-99) mg/dL 03/03/18 03/03/18 03/03/18 Range/Units 04:40 04:40 06:48 RBC 3.35 L (3.80-5.40) m/uL Hgb 8.7 L (11.4-16.0) gm/dL Hct 29.2 L (34.0-46.0) % MCHC 29.8 L (31.0-37.0) g/dL RDW 16.5 H (11.5-15.5) % BUN 20 H (7-17) mg/dL Creatinine 1.14 H (0.52-1.04) mg/dL Glucose 135 H (74-99) mg/dL POC Glucose (mg/dL) 146 H (75-99) mg/dL Microbiology - Last 24 Hours (Table) 02/28/18 04:00 Urine Culture - Final Urine,Catheterized Klebsiella pneumoniae Assessment and Plan Plan: Assessment: 1 acute non-ST elevation myocardial infarction in a patient with known history of severe coronary artery disease, triggered by profound anemia secondary to GI bleeding. Again most likely triggered by the fact that the patient is on anticoagulation therapy for her underlying coronary artery disease and underlying atrial fibrillation. 2 severe anemia secondary to GI blood losses., EGD and colonoscopy are both nondiagnostic, hence capsule endoscopy was recommended by gastroenterology. 3 chronic kidney disease stage III, sees nephrology on a regular basis. 4 history of nephrolithiasis, lithotripsy, and ureteral stent placement. 5 urinary tract infection, and urine cultures positive for ESBL Klebsiella pneumonia 5 history of paroxysmal atrial fibrillation. Previous ablation. 6 history of hypertension 7 history of hypothyroidism on replacement therapy 8 history of mild intermittent asthma presently inactive 9 history of type 2 diabetes 10 history of dyslipidemia. 11 history of pulmonary embolism. Plan: Patient is hemodynamically stable, no further GI bleeding, no definite GI source of bleeding could be established. continue with current medical treatment and current antibiotic therapy, patient was found to have ESBL Klebsiella pneumonia in the urine, she remains afebrile. Anticoagluation remains on hold. Cardiology is recommending low-dose aspirin and low-dose Xarelto, if OKed with GI service. She is stable, and is anticipated for discharge to [facility] today. I performed a history & physical examination of the patient and discussed their management with my nurse practitioner, Marie Nina. I reviewed the nurse practitioner's note and agree with the documented findings and plan of care. Lung sounds are clear diminished. The findings and the impression was discussed with the patient. I attest to the documentation by the nurse practitioner. Time with Patient: Greater than 30
--- NOTE | 2018-03-03 10:57 | P.DS ---
Providers Date of admission: 02/25/18 13:48 Expected date of discharge: 03/03/18 Attending physician: Lor Deluca Consults: 02/25/18 13:48 Consult Physician Urgent Consulting Provider: [facility] Consult Reason/Comments: Chest pain Do you want consulting provider notified?: Yes 02/25/18 14:27 Consult Physician Urgent Consulting Provider: Anahy Guevara Consult Reason/Comments: GI bleed, critical care management Do you want consulting provider notified?: Yes 02/26/18 10:55 Consult Physician Routine Consulting Provider: Miles Abbott Consult Reason/Comments: right side GRUBER Do you want consulting provider notified?: Yes 03/02/18 12:47 Consult Physician Routine Consulting Provider: Jason Olivo Consult Reason/Comments: ESBL UTI Do you want consulting provider notified?: Yes Primary care physician: Lor Deluca Hospital Course: 62-year-old obese female one of my patient with multiple medical problem known to have history of diabetes hypertension hyperlipidemia coronary disease post angioplasty and stent placement in the past, also history of pulmonary embolism paroxysmal atrophy fibrillation with ablation still on anticoagulation. Patient not seen Dr. Deluca, seen Dr. Taylor cardiology regular basis also had seen urology in the past for history of kidney stone. On antibiotic prophylaxis with nitrofurantoin Patient comes in to the emergency room secondary to chest discomfort over the past 1 month, increasing in intensity, radiating to the left arm, also with shortness of breath this man exertion, nausea, patient denies any abdominal pain vomiting or diarrhea, no fever no chills no cough. Patient denies any melena hematochezia, however when seen in the emergency room, she is significantly anemic, patient is on Xarelto at any medication changes, next Emergency room, EKG shows sinus tach cardia 106, no acute ST-T wave changes, hemoglobin was 4.8, previous off 7.1, potassium of 5.1, creatinine of 1.17, glucose 136, liver function tests normal, troponins 0.125 Xarelto on hold secondary to cyclical secondary to severe anemia, consults with cardiology and GI, blood is positive. Total of 3 units of packed red blood cells to be given today for hemoglobin of 4, expected hemoglobin rise to be around 7 with a 3 units 02/26: Patient is resting comfortably in bed. She still is having episodes of orthopnea. Patient denies cough or pain at this time. She has had a total of 3 rbc's completed her initial hemoglobin was 4.8 hemoglobin at this time is 7.7. We have stopped her blood thinner at this time. She has been evaluated by GI and the plan is for them to perform a upper and lower scope tomorrow. Patient is complaining of some constipation. She does have history of black stool however she is on iron replacement. Patient has a history of blood clots her last pulmonary embolism was in February 2017. Patient is also complaining of right sided jaw pain which has been going on for about 6 months initially it was thought to be TMJ however patient sleeps with her mouth open. Potassium 5.3 , chloride 108 BUN 31, creatinine 1.03, troponin 3.790 02/27- patient remains in intensive care unit. She has had a total of 3 units of packed RBCs transfused. Hemoglobin is currently 8.1. BUN 23 and creatinine 1.03. Capillary blood glucose ran between 119 and 131. She underwent EGD and colonoscopy with Dr. Miranda that were normal and scheduled for capsule endoscopy. Patient has been seen by Dr. Abbott regarding facial discomfort which seems to be chronic and atypical not consistent with neuralgia. CAT scan of the brain revealed mild diffuse age-related cerebral atrophy and chronic small vessel ischemic change. No suspicious enhancing mass noted. ESR 58, CRP 30.2. Cardiology is following for non-ST myocardial infarction triggered by severe anemia. Echocardiogram is pending and patient started on Imdur. Patient denies any shortness of breath or cough. No chest pain. She is complaining of her neck bothering her. We will add in PT and OT. 02/28: Patient remains in the ICU. Her hemoglobin was 7 and we will transfuse 1 unit of packed red blood cells. She underwent EGD and colonoscopy with Dr. Miranda with normal findings and had a capsule endoscopic done today. Patient continues to be nothing by mouth and she is requesting to have something to eat at this time. We will start with a consistent carbohydrate diet. Patient denies any shortness of breath, coughing, or chest pain. BUN was 18 creatinine 1.25 03/01 patient examined bedside. Hemoglobin improved to 7.8. No bowel movement since colonoscopy. Capsule endoscopy results pending. Anticoagulation is on hold. We will discuss with cardiology and gastroenterology bedtime to resume the anticoagulation for PE and history of CAD. Vitals are stable saturating well at room air. Patient denies any chest pain, shortness of breath, palpitation, abdominal pain does endorses bloating. Dulcolax suppository ordered 03/02: Patient continues to have a bowel movement and lactulose once ordered. Urine cultures positive for Klebsiella pneumoniae ESBL and consult placed with Dr. Olivo. Patient is currently on ertapenem. Anticipate discharge to [facility] tomorrow 03/03: Patient has been seen by Dr. Olivo and has recommended 3 more days of Invanz by peripheral line. Dr. Logan is recommended resuming Xarelto 15 mg daily and baby aspirin which has been clear with GI. Capsule endoscopy is pending at the time of this dictation. Vital signs have been stable. Patient will be transferred to [facility] today in stable condition. Discharge diagnoses: 1. Severe anemia, most likely acute blood loss anemia from acute GI bleed status post transfusion of 4 units of packed RBCs 2. Non-ST elevated myocardial infarction. 3. history of large kidney stone in the right side with obstructive hydronephrosis status post urostomy and lithotripsy 4. history of pulmonary embolism: Has been on anticoagulation with Xarelto 5. A. fib with RVR with paroxysmal atrial fibrillation currently in sinus rhythm 6. History of CVA 7. hypertension 8. hyperlipidemia 9. hypothyroidism: 10. Mild intermittent asthma without exacerbation 11. Diabetes mellitus type 2. 12. Hyperkalemia: 13. Chronic kidney disease stage III Discharge plan: [facility] on Friday Impression and plan of care have been directed as dictated by the signing physician. Ester Hobson nurse practitioner acting as scribe for signing physician. Patient Condition at Discharge: Good Plan - Discharge Summary Discharge Rx Participant: Yes New Discharge Prescriptions: New Artificial Tears-Hypromellose [Artificial Tear Drops] 2 drops BOTH EYES TID PRN bottle PRN Reason: Dry Eye(S) HYDROcodone/APAP 5-325MG [[place] 5-325] 1 each PO Q6HR PRN #12 tab PRN Reason: Pain Pravastatin Sodium [Pravachol] 40 mg PO HS tab Sodium Chloride 0.65% Nasal [Deep Sea (Saline)] 2 spray NASAL QID PRN spray PRN Reason: Dry Nasal Passages Ertapenem [INVanz] 1 gm IVPB Q24H #3 bag Aspirin EC [Ecotrin Low Dose] 81 mg PO DAILY #30 tablet. Lisinopril [Zestril] 5 mg PO DAILY tab Rivaroxaban [Xarelto] 15 mg PO DAILY #30 tab Continue Isosorbide Mononitrate ER [Imdur] 30 mg PO DAILY@0800 Nitroglycerin Sl Tabs [Nitrostat] 0.4 mg SUBLINGUAL Q5M PRN tab PRN Reason: Chest Pain Famotidine [Pepcid] 20 mg PO BID Ipratropium-Albuterol Nebulize [Duoneb 0.5 mg-3 mg/3 ml Soln] 3 ml INHALATION RT-QID PRN PRN Reason: Shortness Of Breath Montelukast [Singulair] 10 mg PO HS@2100 Furosemide [Lasix] 40 mg PO DAILY@0600 Ferrous Sulfate [Iron (65 MG Elemental)] 325 mg PO BID@0800,1700 Levothyroxine Sodium [Synthroid] 112 mcg PO DAILY@0600 Glimepiride [Amaryl] 1 mg PO AC-BID Cetirizine HCl [Zyrtec] 10 mg PO DAILY Docusate [Colace] 100 mg PO BID PRN PRN Reason: Constipation Fluticasone Nasal [place] [Flonase Nasal [place]] 2 spr EA NOSTRIL BID PRN PRN Reason: Allergy Symptoms Budesonide [Pulmicort] 0.5 mg INHALATION RT-BID PRN PRN Reason: sob Metoprolol Tartrate [Lopressor] 25 mg PO BID ALPRAZolam [Xanax] 0.25 mg PO TID PRN #9 tab PRN Reason: Anxiety Changed Spironolactone [Aldactone] 12.5 mg PO DAILY@0800 #0 Discontinued Rivaroxaban [Xarelto] 20 mg PO W/SUPPER Clopidogrel Bisulfate [Plavix] 75 mg PO DAILY Cyclobenzaprine [Flexeril] 5 mg PO BID PRN PRN Reason: Pain Nitrofurantoin Macrocrystal [Macrodantin] 100 mg PO DAILY Meloxicam 15 mg PO DAILY Loratadine [Claritin] 10 mg PO DAILY PRN PRN Reason: Allergy Symptoms Lisinopril [Zestril] 10 mg PO DAILY Discharge Medication List Isosorbide Mononitrate ER [Imdur] 30 mg PO DAILY@0800 05/12/14 [History] Nitroglycerin Sl Tabs [Nitrostat] 0.4 mg SUBLINGUAL Q5M PRN tab 01/14/17 [Rx] Famotidine [Pepcid] 20 mg PO BID 08/28/17 [History] Ferrous Sulfate [Iron (65 MG Elemental)] 325 mg PO BID@0800,1700 08/28/17 [ History] Furosemide [Lasix] 40 mg PO DAILY@0600 08/28/17 [History] Glimepiride [Amaryl] 1 mg PO AC-BID 08/28/17 [History] Ipratropium-Albuterol Nebulize [Duoneb 0.5 mg-3 mg/3 ml Soln] 3 ml INHALATION RT -QID PRN 08/28/17 [History] Levothyroxine Sodium [Synthroid] 112 mcg PO DAILY@0600 08/28/17 [History] Montelukast [Singulair] 10 mg PO HS@2100 08/28/17 [History] Budesonide [Pulmicort] 0.5 mg INHALATION RT-BID PRN 01/21/18 [History] Cetirizine HCl [Zyrtec] 10 mg PO DAILY 01/21/18 [History] Docusate [Colace] 100 mg PO BID PRN 01/21/18 [History] Fluticasone Nasal [place] [Flonase Nasal [place]] 2 spr EA NOSTRIL BID PRN 01/21/18 [History] Metoprolol Tartrate [Lopressor] 25 mg PO BID 02/25/18 [History] ALPRAZolam [Xanax] 0.25 mg PO TID PRN #9 tab 03/02/18 [Rx] Artificial Tears-Hypromellose [Artificial Tear Drops] 2 drops BOTH EYES TID PRN bottle 03/02/18 [Rx] HYDROcodone/APAP 5-325MG [[place] 5-325] 1 each PO Q6HR PRN #12 tab 03/02/18 [Rx] Pravastatin Sodium [Pravachol] 40 mg PO HS tab 03/02/18 [Rx] Sodium Chloride 0.65% Nasal [Deep [place] (Saline)] 2 spray NASAL QID PRN spray [Rx] Spironolactone [Aldactone] 12.5 mg PO DAILY@0800 #0 03/02/18 [Rx] Aspirin EC [Ecotrin Low Dose] 81 mg PO DAILY #30 tablet. 03/03/18 [Rx] Ertapenem [INVanz] 1 gm IVPB Q24H #3 bag 03/03/18 [Rx] Lisinopril [Zestril] 5 mg PO DAILY tab 03/03/18 [Rx] Rivaroxaban [Xarelto] 15 mg PO DAILY #30 tab 03/03/18 [Rx] Follow up Appointment(s)/Referral(s): Lor Deluca MD [Primary Care Provider] - 1-2 days Miles Abbott MD [STAFF PHYSICIAN] - 3 Weeks Discharge Disposition: TRANSFER TO SNF/ECF
[2018-03-03 11:57] LABS: Glucose,Whole Blood 174 mg/dL (75-99)
[2018-03-03] MEDS: ERTAPENEM 1 GM in SODIUM CHLORIDE 0.9% 50 ML IVPB SCH (12:18)
[2018-03-03] MEDS: FERROUS SULFATE 325 MG TAB PO SCH (12:18)
[2018-03-03] MEDS ORDERED: BISACODYL 10 MG SUPP RECTAL STA (13:15)
[2018-03-03 13:19] VITALS: BP 113/53; PULSE 64; RESP 12
[2018-03-03 13:44] VITALS: TEMP 98.2
[2018-03-03 15:40] LABS: Appearance,Urine Clear (Clear); Bilirubin,Urine Negative (Negative); Blood,Urine Negative (Negative); Color,Urine Colorless; Glucose,Urine (UA) Negative (Negative); Ketones,Urine Negative (Negative); Leukocyte Esterase,Urine Large (Negative); Nitrite,Urine Negative (Negative); Protein,Urine Negative (Negative); RBC,Urine 2 /hpf (0-5); Specific Gravity,Urine 1.005 (1.001-1.035); Squamous Epithelial Cell,Urine 2 /hpf (0-4); Urobilinogen,Urine <2.0 mg/dL (<2.0)
--- NOTE | 2018-03-03 18:08 | PN ---
PROGRESS NOTE DATE OF SERVICE: 03/03/2018 REASON FOR FOLLOWUP: ESBL E coli urinary tract infection. INTERVAL HISTORY: The patient was seen on rounds early this afternoon the patient has been afebrile. She did get her midline for discharge antibiotic. The patient denies having any chest pain or shortness of breath. Occasional cough. No abdominal pain. No diarrhea. PHYSICAL EXAMINATION: Blood pressure 113/53, pulse of 64, temperature 98.2. She is 95% on room air. General description is a middle-aged female up in the chair in no distress. RESPIRATORY SYSTEM: Unlabored breathing. Clear to auscultation anteriorly. HEART: S1, S2. Regular rate and rhythm. ABDOMEN: Soft. No tenderness. LABS: Hemoglobin 8.7, white count of 9.0. Repeat urine is positive with large leukocyte esterases and total WBC. DIAGNOSTIC IMPRESSION AND PLAN: Patient with extended-spectrum beta-lactamase Escherichia coli urinary tract infection, possible cystitis. Recommend a short course of IV Invanz 1 gram daily for about a week with close outpatient followup. Continue with supportive care. MMODL / IJN: [id number] /
== END 2018-03-03 15:45 | DRG 377 ==
LOC: EC 08:42 → SUPCPDRO 08:42 → 2SICU 13:48
PROVIDERS: ADMIT Family Medicine; ATTEND Family Medicine
PROC: 30233N1 Transfusion of Nonautologous Red Blood Cells into Peripheral Vein, Percutaneous Approach (ICD-10-PCS; principal; 2018-02-25)
DX: K92.2 Gastrointestinal hemorrhage, unspecified (principal); I21.4 Non-ST elevation (NSTEMI) myocardial infarction; D62 Acute posthemorrhagic anemia; I13.0 Hypertensive heart and chronic kidney disease with heart failure and stage 1 through stage 4 chronic kidney disease, or unspecified chronic kidney disease; I42.9 Cardiomyopathy, unspecified; I69.354 Hemiplegia and hemiparesis following cerebral infarction affecting left non-dominant side; N39.0 Urinary tract infection, site not specified; B96.1 Klebsiella pneumoniae [K. pneumoniae] as the cause of diseases classified elsewhere; B96.20 Unspecified Escherichia coli [E. coli] as the cause of diseases classified elsewhere; E03.9 Hypothyroidism, unspecified; E11.22 Type 2 diabetes mellitus with diabetic chronic kidney disease; E78.1 Pure hyperglyceridemia; E78.5 Hyperlipidemia, unspecified; E87.5 Hyperkalemia; F32.9 Major depressive disorder, single episode, unspecified; G50.1 Atypical facial pain; I25.10 Atherosclerotic heart disease of native coronary artery without angina pectoris; I48.0 Paroxysmal atrial fibrillation; I50.9 Heart failure, unspecified; J44.9 Chronic obstructive pulmonary disease, unspecified; J45.20 Mild intermittent asthma, uncomplicated; K59.00 Constipation, unspecified; M79.7 Fibromyalgia; N18.3 Chronic kidney disease, stage 3 (moderate); N20.0 Calculus of kidney; Z16.12 Extended spectrum beta lactamase (ESBL) resistance; Z79.01 Long term (current) use of anticoagulants; Z79.02 Long term (current) use of antithrombotics/antiplatelets; Z79.2 Long term (current) use of antibiotics; Z79.84 Long term (current) use of oral hypoglycemic drugs; Z79.890 Hormone replacement therapy; Z79.899 Other long term (current) drug therapy; Z80.9 Family history of malignant neoplasm, unspecified; Z82.49 Family history of ischemic heart disease and other diseases of the circulatory system; Z86.711 Personal history of pulmonary embolism; Z86.718 Personal history of other venous thrombosis and embolism; Z87.11 Personal history of peptic ulcer disease; Z87.440 Personal history of urinary (tract) infections; Z87.442 Personal history of urinary calculi; Z87.891 Personal history of nicotine dependence; Z90.49 Acquired absence of other specified parts of digestive tract; E11.40 Type 2 diabetes mellitus with diabetic neuropathy, unspecified; Z90.710 Acquired absence of both cervix and uterus; Z93.6 Other artificial openings of urinary tract status; Z95.5 Presence of coronary angioplasty implant and graft
CPT/HCPCS: 36415; 36569; 43235; 45378; 70470; 71046; 76937; 80048; 80053; 80061; 81001; 82272; 82550; 82553; 83036; 83735; 84100; 84484; 85025; 85027; 85610; 85652; 85730; 86038; 86039; 86140; 86850; 86900; 86901; 86920; 87077; 87086; 87186; 91110; 93005; 93306; 94640; 99285

== ENCOUNTER → 2018-09-23 | Outpatient (CLI) | payer MEDICARE, BC ==
[2018-09-23 10:10] LABS: Anisocytosis Slight; Basophils # (A) 0.1 k/uL (0-0.2); Basophils % (A) 1 %; Eosinophils # (A) 0.4 k/uL (0-0.7); Eosinophils % (A) 4 %; HCT 31.5 % (34.0-46.0); HGB 9.3 gm/dL (11.4-16.0); Hypochromasia Marked; Lymphocytes # (A) 1.5 k/uL (1.0-4.8); Lymphocytes % (A) 19 %; MCH 23.6 pg (25.0-35.0); MCHC 29.6 g/dL (31.0-37.0); MCV 79.9 fL (80.0-100.0); Mean Platelet Volume 6.6; Microcytosis Slight; Monocytes # (A) 0.4 k/uL (0-1.0); Monocytes % (A) 4 %; Neutrophils # (A) 5.7 k/uL (1.3-7.7); Neutrophils % (A) 71 %; Platelet Count 284 k/uL (150-450); RBC 3.94 m/uL (3.80-5.40); RDW 17.6 % (11.5-15.5); WBC 8.1 k/uL (3.8-10.6)
--- NOTE | 2018-09-23 10:19 | XR ---
EXAMINATION TYPE: XR ribs LT DATE OF EXAM: 09/23/2018 COMPARISON: NONE HISTORY: Chronic pain TECHNIQUE: 4 views submitted FINDINGS: Diffuse osteopenia and arthropathy of the shoulder. IMPRESSION: No acute displaced rib fracture
--- NOTE | 2018-09-23 10:20 | XR ---
EXAMINATION TYPE: XR thoracic spine complete DATE OF EXAM: 09/23/2018 COMPARISON: NONE HISTORY: Pain Alignment is anatomic. There is no compression deformities. Vertebral body height and disc interspa josé are maintained. Multilevel hypertrophic and degenerative disc disease. Degenerative change lower cervical spine. Heart is prominent in size. Pleural thickening noted. IMPRESSION: 1. Multilevel hypertrophic and degenerative disc disease.
--- NOTE | 2018-09-23 10:21 | XR ---
EXAMINATION TYPE: XR chest 2V DATE OF EXAM: 09/23/2018 COMPARISON: 02/16/2018 TECHNIQUE: PA and lateral views submitted. HISTORY: Pain FINDINGS: The lungs are clear and there is no pneumothorax, pleural effusion, or focal pneumonia. Heart is en larged. There is biapical pleural thickening. Arthropathy shoulders. No overt failure. Hypertrophic a nd degenerative change of the spine. IMPRESSION: 1. Cardiomegaly.
[2018-09-23 16:51] LABS: African American GFR (CKD) 46.2 (60.0-200.0); Anion Gap 9.8 mmol/L (4.00-12.00); BUN/Creat Ratio 19.29 Ratio (12.00-20.00); Calcium 8.9 mg/dL (8.7-10.3); Carbon Dioxide 26.2 mmol/L (21.6-31.8); Potassium 4.3 mmol/L (3.5-5.5); Total Bilirubin 0.4 mg/dL (0.2-1.2)
[2018-09-23 16:58] LABS: T4, Free (Free Thyroxine) 1.2 ng/dL (0.80-1.80)
[2018-09-23 17:35] LABS: Hemoglobin A1C 7.7 % (4.0-6.0)
[2018-09-23 17:51] LABS: Iron Saturation 5.04 (12.00-45.00); LDL Cholesterol, Direct 96.8 mg/dL (0.0-129.0)
== END | disposition home or self-care (01) ==
LOC: LABWHC1 09:09
PROVIDERS: ATTEND Family Medicine
DX: E11.9 Type 2 diabetes mellitus without complications (principal); I51.7 Cardiomegaly; R09.1 Pleurisy; M51.34 Other intervertebral disc degeneration, thoracic region; I12.9 Hypertensive chronic kidney disease with stage 1 through stage 4 chronic kidney disease, or unspecified chronic kidney disease; E11.22 Type 2 diabetes mellitus with diabetic chronic kidney disease; N18.3 Chronic kidney disease, stage 3 (moderate); E78.2 Mixed hyperlipidemia; E03.9 Hypothyroidism, unspecified; R06.02 Shortness of breath
CPT/HCPCS: 36415; 71046; 72072; 80053; 82550; 82607; 82728; 83036; 83540; 83550; 83721; 83880; 84439; 84443; 84478; 85025

== ENCOUNTER → 2020-03-13 | Outpatient (CLI) | payer MEDICARE | END | disposition home or self-care (01) | LOC: RADCTMAIN 15:30 | PROVIDERS: ATTEND Family Medicine | DX: Z53.9 Procedure and treatment not carried out, unspecified reason (principal) ==

== ENCOUNTER 2020-05-03 01:42 | Inpatient (IN) | payer MEDICARE ==
--- NOTE | 2020-05-03 01:58 | ED ---
Chest Pain HPI - General Stated Complaint: Chest Pain Time Seen by Provider: 05/03/20 01:50 Source: patient Mode of arrival: EMS Limitations: no limitations - History of Present Illness MD Complaint: chest pain Onset/Timin -: hour(s) Onset: during rest Pain Location: substernal Pain Radiation: none Severity: moderate Quality: tightness Consistency: now resolved Improves With: nothing Worsens With: nothing Treatments Prior to Arrival: aspirin, nitroglycerin, oxygen - Related Data Home Medications Medication Instructions Recorded Confirmed Isosorbide Mononitrate ER [Imdur] 60 mg PO DAILY@0800 05/12/14 11/10/18 Famotidine [Pepcid] 20 mg PO BID 08/28/17 11/10/18 Ferrous Sulfate [Iron (65 MG 325 mg PO BID@0800,1700 08/28/17 11/10/18 Elemental)] Furosemide [Lasix] 40 mg PO DAILY@0600 08/28/17 11/10/18 Glimepiride [Amaryl] 1 mg PO AC-BID 08/28/17 11/10/18 Ipratropium-Albuterol Nebulize 3 ml INHALATION RT-QID PRN 08/28/17 11/10/18 [Duoneb 0.5 mg-3 mg/3 ml Soln] Levothyroxine Sodium [Synthroid] 112 mcg PO DAILY@0600 08/28/17 11/10/18 Montelukast [Singulair] 10 mg PO HS@2100 08/28/17 11/10/18 Budesonide [Pulmicort] 0.5 mg INHALATION RT-BID PRN 01/21/18 11/10/18 Cetirizine HCl [Zyrtec] 10 mg PO DAILY 01/21/18 11/10/18 Docusate [Colace] 100 mg PO BID PRN 01/21/18 11/10/18 Fluticasone Nasal [place] [Flonase 2 spr EA NOSTRIL BID PRN 01/21/18 11/10/18 Nasal [place]] Metoprolol Tartrate [Lopressor] 50 mg PO BID 02/25/18 11/10/18 Isosorbide Dinitrate 30 mg PO HS 11/04/18 11/10/18 Levofloxacin [Levaquin] 500 mg PO DAILY 11/04/18 11/10/18 Metoprolol Tartrate 25 mg PO HS 11/04/18 11/10/18 Pravastatin Sodium [Pravachol] 80 mg PO HS 11/04/18 11/10/18 Previous Rx's Medication Instructions Recorded Nitroglycerin Sl Tabs [Nitrostat] 0.4 mg SUBLINGUAL Q5M PRN tab 01/14/17 ALPRAZolam [Xanax] 0.25 mg PO TID PRN #9 tab 03/02/18 Artificial Tears-Hypromellose 2 drops BOTH EYES TID PRN bottle 03/02/18 [Artificial Tear Drops] HYDROcodone/APAP 5-325MG [[place] 1 each PO Q6HR PRN #12 tab 03/02/18 5-325] Sodium Chloride 0.65% Nasal [Deep 2 spray NASAL QID PRN spray 03/02/18 Sea (Saline)] Spironolactone [Aldactone] 12.5 mg PO DAILY@0800 #0 03/02/18 Aspirin EC [Ecotrin Low Dose] 81 mg PO DAILY #30 tablet. 03/03/18 Ertapenem [INVanz] 1 gm IVPB Q24H #3 bag 03/03/18 Rivaroxaban [Xarelto] 15 mg PO DAILY #30 tab 03/03/18 lisinopriL [Zestril] 5 mg PO DAILY tab 03/03/18 Allergies Allergy/AdvReac Type Severity Reaction Status Date / Time latex Allergy Rash/Hives Verified 11/10/18 14:09 Milk Containing Products AdvReac THRUSH Verified 11/10/18 14:09 [Dairy] Tetracyclines AdvReac YEAST Verified 11/10/18 14:09 INFECTION- PREFERS NOT TO TAKE ENVIRONMENTAL ALLERGIES Allergy SINUS Uncoded 11/10/18 14:09 SYMPTOMS-GRASS TREES,DUST,POLLENS,MOLD Review of Systems ROS Statement: Those systems with pertinent positive or pertinent negative responses have been documented in the HPI. ROS Other: All systems not noted in ROS Statement are negative. Constitutional: Denies: fever, chills Respiratory: Denies: cough, dyspnea Cardiovascular: Reports: chest pain. Denies: palpitations, orthopnea, edema, syncope Gastrointestinal: Denies: abdominal pain, vomiting, diarrhea Genitourinary: Denies: dysuria Musculoskeletal: Denies: back pain Skin: Denies: rash Neurological: Denies: headache, weakness, numbness EKG Findings - EKG Results: EKG: interpreted by ERMD, sinus rhythm (Rate 72 bpm), normal QRS (Low-voltage QRS) - Blocks, [place], Hypertrophy, ST Abn: QRS axis and voltage: left axis deviation (-30 to -90) Past Medical History Past Medical History: Atrial Fibrillation, Asthma, Coronary Artery Disease (CAD), Heart Failure, CVA/TIA, Diabetes Mellitus, Deep Vein Thrombosis (DVT), Fibromyalgia, Hyperlipidemia, Hypertension, Myocardial Infarction (CA), Osteoarthritis (OA), Pulmonary Embolus (PE), Skin Disorder, Thyroid Disorder Additional Past Medical History / Comment(s): frequent uti's,kidney stones,HEART MURMUR,cardiomyopathy,CHRONIC CONSTIPATION, ECZEMA,SINUS HEADACHES, HX ANEMIA, gout. stage III kidney disease stage 3,lower back pain. 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.FEEt, weakness LT SIDE, ,stg three kidney disease,eye disorder fuchs corneal dystrophy. Last Myocardial Infarction Date:: UNKNOWN History of Any Multi-Drug Resistant Organisms: ESBL Date of last positivie culture/infection: 02/28/18 MDRO Source:: ESBL URINE Past Surgical History: Appendectomy, Cardiac Ablation, Cholecystectomy, Heart Catheterization, Heart Catheterization With Stent, Hysterectomy Additional Past Surgical History / Comment(s): PARTIAL HYSTERECTOMY 03/18/14 @ [facility]. CATARACT BLACK. WITH IMPLANTS. HEART CATH X 3 TOTAL 3 STENTS, lithotripsy,kidney stents-since removed. Past Anesthesia/Blood Transfusion Reactions: Motion Sickness Additional Past Anesthesia/Blood Transfusion Reaction / Comment(s): no hx blood transfusion Date of Last Stent Placement:: UNKNOWN Past Psychological History: Depression Additional Psychological History / Comment(s): pt lives alone in [facility] home, uses cane when up .receives [employer] services and someone to help her shower. Past Alcohol Use History: None Reported Additional Past Alcohol Use History / Comment(s): SMOKED AGE 15 TO AGE 21 -WHEN QUIT WAS SMOKING 1/2 PPD Past Drug Use History: None Reported - Past Family History Father Additional Family Medical History / Comment(s): "HARDENEING OF THE ARTERIES AT AGE 41. SMOKED AND DRANK ETOH Mother Family Medical History: Cancer Additional Family Medical History / Comment(s): "cyst that ruptured between bowel and bladder" General Exam General appearance: alert, in no apparent distress, obese Head exam: Present: atraumatic, normocephalic Eye exam: Present: normal appearance. Absent: scleral icterus, conjunctival injection Neck exam: Present: normal inspection, full ROM Respiratory exam: Present: normal lung sounds bilaterally. Absent: respiratory distress, wheezes, rales, rhonchi, stridor Cardiovascular Exam: Present: regular rate, normal rhythm, normal heart sounds. Absent: systolic murmur, diastolic murmur, rubs, gallop GI/Abdominal exam: Present: soft. Absent: distended, tenderness, guarding, rebound, rigid, mass Extremities exam: Present: normal inspection, normal capillary refill. Absent: pedal edema, calf tenderness Back exam: Present: normal inspection. Absent: CVA tenderness (R), CVA tenderness (L) Neurological exam: Present: alert Skin exam: Present: warm, dry, intact, normal color. Absent: rash Course Vital Signs 05/03/20 01:55 Temperature 98 F Pulse Rate 78 Respiratory 18 Rate Blood Pressure 134/92 O2 Sat by Pulse 96 Oximetry Disposition Clinical Impression: Chest pain Disposition: ADMITTED IP TO THIS HOSP Condition: Fair Referrals: Lor Deluca MD [Primary Care Provider] - 1-2 days
--- NOTE | 2020-05-03 02:35 | XR ---
EXAM: XR Chest, 1 View CLINICAL HISTORY: ITS.REASON XR Reason: chest pain TECHNIQUE: Frontal view of the chest. COMPARISON: 09/23/2018 FINDINGS: Lungs: No consolidation or mass. Pleural space: No acute findings Heart: Severe cardiomegaly. Bones/joints: No acute findings. IMPRESSION: Severe cardiomegaly. Appears larger than prior study.
[2020-05-03 02:59] LABS: Basophils # (A) 0.1 k/uL (0-0.2); Basophils % (A) 1 %; Eosinophils # (A) 0.4 k/uL (0-0.7); Eosinophils % (A) 4 %; HCT 40.2 % (34.0-46.0); HGB 12.2 gm/dL (11.4-16.0); Hypochromasia Slight; Lymphocytes # (A) 1.4 k/uL (1.0-4.8); Lymphocytes % (A) 14 %; MCH 25.8 pg (25.0-35.0); MCHC 30.3 g/dL (31.0-37.0); MCV 85.2 fL (80.0-100.0); Mean Platelet Volume 6.8; Monocytes # (A) 0.3 k/uL (0-1.0); Monocytes % (A) 3 %; Neutrophils # (A) 7.7 k/uL (1.3-7.7); Neutrophils % (A) 77 %; Platelet Count 214 k/uL (150-450); RBC 4.72 m/uL (3.80-5.40); RDW 15.9 % (11.5-15.5)
[2020-05-03 03:23] LABS: Albumin 3.5 g/dL (3.5-5.0); Calcium 8.7 mg/dL (8.4-10.2); Potassium 5.2 mmol/L (3.5-5.1); Total Bilirubin 0.4 mg/dL (0.2-1.3); Total Protein 6.6 g/dL (6.3-8.2)
[2020-05-03 03:58] LABS: D-Dimer 0.21 mg/L FEU (<0.60); INR 1.3 (<1.2); Partial Thromboplastin Time 27.3 sec (22.0-30.0); Prothrombin Time 13.4 sec (9.0-12.0)
[2020-05-03] MEDS ORDERED: NITROGLYCERIN SL TABS 0.4 MG TAB SUBLINGUAL PRN ×2 (04:18→04:20)
[2020-05-03] MEDS ORDERED: IPRATROPIUM-ALBUTEROL 3 ML NEB INHALATION PRN (04:20)
[2020-05-03] MEDS ORDERED: ALPRAZolam 0.25 MG TAB PO PRN (04:20)
[2020-05-03] MEDS ORDERED: DOCUSATE 100 MG CAP PO PRN (04:20)
[2020-05-03] MEDS ORDERED: BUDESONIDE 0.5 MG/2 ML NEBU INHALATION PRN (04:20)
[2020-05-03 06:13] LABS: Glucose,Whole Blood 142 mg/dL (75-99)
[2020-05-03] MEDS: FUROSEMIDE 40 MG TAB PO SCH (06:17)
[2020-05-03] MEDS: GLIMEPIRIDE 1 MG TAB PO SCH ×2 (06:17→17:36)
[2020-05-03] MEDS: LEVOTHYROXINE 112 MCG TAB PO SCH (06:17)
[2020-05-03] MEDS ORDERED: HEPARIN SODIUM,PORCINE 5,000 UNIT/ML 1 ML VIAL SQ SCH (08:00)
[2020-05-03] MEDS ORDERED: HEPARIN SODIUM,PORCINE 5,000 UNIT/ML 1 ML VIAL IV PRN (08:25)
[2020-05-03] MEDS ORDERED: HEPARIN SODIUM,PORCINE 5,000 UNIT/ML 1 ML VIAL IV ONE (08:25)
[2020-05-03] MEDS: FAMOTIDINE 20 MG TAB PO SCH ×2 (08:57→20:18)
[2020-05-03] MEDS: ISOSORBIDE MONONITRATE ER 30 MG TAB.ER.24H PO SCH (08:57)
[2020-05-03] MEDS: FERROUS SULFATE 325 MG TAB PO SCH ×2 (08:58→17:36)
[2020-05-03] MEDS: lisinopriL 5 MG TAB PO SCH (08:58)
[2020-05-03] MEDS: SPIRONOLACTONE 25 MG TAB PO SCH (08:58)
[2020-05-03] MEDS ORDERED: RIVAROXABAN 15 MG TAB PO SCH (09:00)
[2020-05-03] MEDS ORDERED: METOPROLOL TARTRATE 25 MG TAB PO SCH ×2 (09:00→21:00)
[2020-05-03] MEDS: HEPARIN SOD,PORK IN 0.45% NACL 25,000 UNIT in 0.45% NACL 1 250ML.BAG IV SCH ×2 (09:21→12:45)
[2020-05-03 10:03] LABS: Prothrombin Time >130.0 sec (9.0-12.0)
[2020-05-03 10:07] LABS: INR >10.0 (<1.2)
[2020-05-03 10:08] LABS: Partial Thromboplastin Time 152.5 sec (22.0-30.0)
[2020-05-03 11:38] LABS: Glucose,Whole Blood 72 mg/dL (75-99)
--- NOTE | 2020-05-03 11:39 | P.CRDCN ---
History of Present Illness History of present illness: HISTORY OF PRESENTING ILLNESS This is a pleasant 64-year-old female past medical history significant for multivessel coronary artery disease, ischemic cardiomyopathy, diabetes cal itus, paroxysmal atrial fibrillation on long-term anticoagulation, dyslipidemia, chronic systolic heart failure and morbid obesity. She follows in the office with Dr. Taylor. We have been asked to see in consultation for chest pain. Since this first started approximately 2 days ago when she had a discomfort in her chest in the midsternal region described as a tight sensation that radiated through to her back and into the base of her jaw. She took a sublingual nitroglycerin and it did relieve her symptoms. Then last night she had a similar type experience with tightness in the chest with radiating to her left jaw however this time the pain was much more significant. She took a total of 3 nitroglycerin and achieved no relief of her chest discomfort. She denies associated shortness of breath, dizziness or palpitations. Most recent cardiac catheterization was performed in 2017 in the setting of a non-ST elevated myocardial infarction that revealed the previously stented RCA in the proximal segment was patent but just beyond with a 70% stenosis, LAD was totally occluded in the midportion and heavily calcified, the previously stented circumflex was patent. At that time she underwent an unsuccessful attempt of PTCA of both the LAD and RCA. At that time bypass grafting was recommended however the patient is not interested in undergoing bypass surgery. She has been maintained on maximum medical therapy since that time. She underwent a dobutamine stress echocardiogram August 2019 that was negative for stress-induced ischemia. Most recent echocardiogram obtained in 2018 revealed preserved LV systolic function with ejection fraction 50-55%, apical hypokinesia noted, mild MR and mild TR. DIAGNOSTICS EKG reveals sinus mechanism with left axis deviation. Telemetry tracings indicate that his mechanism. Chest xray severe cardiomegaly. Laboratory reviewed, WBC 10, hemoglobin 12.2, platelets 214, INR on admission was 1. 3 repeat today was greater than 10, d-dimer 0.21, sodium 138, potassium 5.2, creatinine 0.92, magnesium 2.0, troponin 0.024, 0.068, 0.089 and proBNP 277. Current cardiac medications include Aldactone 12.5 mg daily, Toprol 100 mg daily, pravastatin 80 mg daily, Imdur 60 mg daily, Lasix 40 mg daily as needed for lower extremity edema and Xarelto 20 mg daily. REVIEW OF SYSTEMS At the time of my exam: CONSTITUTIONAL: Denies fever or chills. CARDIOVASCULAR: Denies chest pain, shortness of breath, orthopnea, PND or palpitations. RESPIRATORY: Denies cough. GASTROINTESTINAL: Denies abdominal pain, diarrhea, constipation, nausea or vomiting. MUSCULOSKELETAL: Denies myalgias. NEUROLOGIC: Denies numbness, tingling, headacbe or weakness. ENDOCRINE: Denies fatigue, weight change, polydipsia or polyurina. GENITOURINARY: Denies burning, hematuria or urgency with micturation. HEMATOLOGIC: Denies history of anemia or bleeding. PHYSICAL EXAMINATION Blood pressure 133/61 heart rate 67 afebrile and maintaining oxygen saturation on room air. CONSTITUTIONAL: No apparent distress. Morbidly obese. HEENT: Head is normocephalic. Pupils are equal, round. Sclerae anicteric. Mucous membranes of the mouth are moist. No JVD. No carotid bruit. CHEST EXAMINATION: Lungs are clear to auscultation. No chest wall tenderness is noted on palpation or with deep breathing. HEART EXAMINATION: Regular rate and rhythm. S1, S2 heard. No murmurs, gallops or rub. ABDOMEN: Soft, nontender. Positive bowel sounds. EXTREMITIES: 2+ peripheral pulses, no lower extremity edema and no calf tenderness. NEUROLOGIC EXAMINATION: Patient is awake, alert and oriented x3. ASSESSMENT Non-ST elevated myocardial infarction Unstable angina Multivessel coronary artery disease not amenable to any further PCI, patient declined bypass grafting in the past Ischemic cardiomyopathy Diabetes mellitus Paroxysmal atrial fibrillation on Xarelto Dyslipidemia Morbid obesity, BMI 48 PLAN Given her previous catheterization and recommendations we will maximize her medical therapy. She is not interested in getting a surgical opinion for bypass. Repeat PT, PTT and INR. Initiate heparin infusion if appropriate based on clotting study redraw. Continue aspirin, Imdur, lisinopril, aldactone, pravastatin and Toprol as previously ordered. Hold xarelto while on heparin infusion. Obtain 2D echocardiogram and doppler study to assess cardiac structure and function. Thank you kindly for this consultation. Nurse Practitioner note has been reviewed, I agree with a documented findings and plan of care. Patient was seen and examined. Past Medical History Past Medical History: Atrial Fibrillation, Asthma, Coronary Artery Disease (CAD), Heart Failure, CVA/TIA, Diabetes Mellitus, Deep Vein Thrombosis (DVT), Fibromyalgia, Hyperlipidemia, Hypertension, Myocardial Infarction (ID), Osteoarthritis (OA), Pulmonary Embolus (PE), Skin Disorder, Thyroid Disorder Additional Past Medical History / Comment(s): frequent uti's,kidney stones,HEART MURMUR,cardiomyopathy,CHRONIC CONSTIPATION, ECZEMA,SINUS HEADACHES, HX ANEMIA, gout. stage III kidney disease stage 3,lower back pain. 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.FEEt, weakness LT SIDE, ,stg three kidney disease,eye disorder fuchs corneal dystrophy. Last Myocardial Infarction Date:: UNKNOWN History of Any Multi-Drug Resistant Organisms: ESBL Date of last positivie culture/infection: 02/28/18 MDRO Source:: ESBL URINE Past Surgical History: Appendectomy, Cardiac Ablation, Cholecystectomy, Heart Catheterization, Heart Catheterization With Stent, Hysterectomy Additional Past Surgical History / Comment(s): PARTIAL HYSTERECTOMY 03/18/14 @ [facility]. CATARACT BLACK. WITH IMPLANTS. HEART CATH X 3 TOTAL 3 STENTS, lithotripsy,kidney stents-since removed. Past Anesthesia/Blood Transfusion Reactions: Motion Sickness Additional Past Anesthesia/Blood Transfusion Reaction / Comment(s): no hx blood transfusion Date of Last Stent Placement:: UNKNOWN Past Psychological History: Depression Additional Psychological History / Comment(s): pt lives alone in [facility] home, uses cane when up .receives houskeeping services and someone to help her shower. Smoking Status: Never smoker Past Alcohol Use History: None Reported Additional Past Alcohol Use History / Comment(s): SMOKED AGE 15 TO AGE 21 -WHEN QUIT WAS SMOKING 1/2 PPD Past Drug Use History: None Reported - Past Family History Father Additional Family Medical History / Comment(s): "HARDENEING OF THE ARTERIES AT AGE 41. SMOKED AND DRANK ETOH Mother Family Medical History: Cancer Additional Family Medical History / Comment(s): "cyst that ruptured between bowel and bladder" Medications and Allergies Home Medications Medication Instructions Recorded Confirmed Type Isosorbide Mononitrate ER [Imdur] 60 mg PO W/LUNCH 05/12/14 05/03/20 History Nitroglycerin Sl Tabs [Nitrostat] 0.4 mg SUBLINGUAL Q5M PRN tab 01/14/17 05/03/20 Rx Ferrous Sulfate [Iron (65 MG 650 mg PO W/LUNCH 08/28/17 05/03/20 History Elemental)] Furosemide [Lasix] 40 mg PO DAILY PRN 08/28/17 05/03/20 History Glimepiride [Amaryl] 2 mg PO AC-BRKFST 08/28/17 05/03/20 History Levothyroxine Sodium [Synthroid] 112 mcg PO DAILY 08/28/17 05/03/20 History Montelukast [Singulair] 10 mg PO HS 08/28/17 05/03/20 History Cetirizine HCl [Zyrtec] 10 mg PO W/LUNCH 01/21/18 05/03/20 History Docusate [Colace] 300 mg PO HS 01/21/18 05/03/20 History Allopurinol [Zyloprim] 100 mg PO W/LUNCH 05/03/20 05/03/20 History Glimepiride [Amaryl] 1 mg PO DAILY 05/03/20 05/03/20 History Metoprolol Succinate (ER) [Toprol 100 mg PO DAILY 05/03/20 05/03/20 History Xl] Pravastatin Sodium [Pravachol] 80 mg PO W/LUNCH 05/03/20 05/03/20 History Rivaroxaban [Xarelto] 20 mg PO W/SUPPER 05/03/20 05/03/20 History Spironolactone [Aldactone] 12.5 mg PO W/LUNCH 05/03/20 05/03/20 History Xarelto 15 - 20 mg PO W/SUPPER 05/03/20 05/03/20 History bisacodyL [Dulcolax] 10 mg PO DAILY PRN 05/03/20 05/03/20 History traMADol HCL 50 - 100 mg PO TID PRN 05/03/20 05/03/20 History Allergies Allergy/AdvReac Type Severity Reaction Status Date / Time latex Allergy Rash/Hives Verified 05/03/20 08:55 Milk Containing Products AdvReac THRUSH Verified 05/03/20 08:55 [Dairy] Tetracyclines AdvReac YEAST Verified 05/03/20 08:55 INFECTION- PREFERS NOT TO TAKE ENVIRONMENTAL ALLERGIES Allergy SINUS Uncoded 05/03/20 08:55 SYMPTOMS-GRASS TREES,DUST,POLLENS,MOLD Physical Exam Vitals: Vital Signs Temp Pulse Pulse Resp BP BP Pulse Ox 05/03/20 05:45 97.5 F L 67 18 133/61 97 05/03/20 05:20 58 L 05/03/20 05:14 56 L 20 125/76 99 05/03/20 01:55 98 F 78 18 134/92 96 Intake and Output 05/02/20 05/03/20 05/03/20 22:59 06:59 14:59 Other: # Voids 1 Weight 124.738 kg Results 05/03/20 02:15 05/03/20 02:15 Cardiac Enzymes 05/03/20 05/03/20 05/03/20 Range/Units 02:15 02:15 05:34 AST 20 (14-36) U/L Troponin I 0.024 0.068 H* (0.000-0.034) ng/mL Coagulation 05/03/20 Range/Units 02:15 PT 13.4 H (9.0-12.0) sec APTT 27.3 (22.0-30.0) sec CBC 05/03/20 Range/Units 02:15 WBC 10.0 (3.8-10.6) k/uL RBC 4.72 (3.80-5.40) m/uL Hgb 12.2 (11.4-16.0) gm/dL Hct 40.2 (34.0-46.0) % Plt Count 214 (150-450) k/uL Comprehensive Metabolic Panel 05/03/20 Range/Units 02:15 Sodium 138 (137-145) mmol/L Potassium 5.2 H (3.5-5.1) mmol/L Chloride 102 (98-107) mmol/L Carbon Dioxide 31 H (22-30) mmol/L BUN 24 H (7-17) mg/dL Creatinine 0.92 (0.52-1.04) mg/dL Glucose 227 H (74-99) mg/dL Calcium 8.7 (8.4-10.2) mg/dL AST 20 (14-36) U/L ALT 11 (4-34) U/L Alkaline Phosphatase 97 (38-126) U/L Total Protein 6.6 (6.3-8.2) g/dL Albumin 3.5 (3.5-5.0) g/dL Current Medications Generic Name Dose Route Start Last Admin Trade Name Freq PRN Reason Stop Dose Admin Hydrocodone Bitart/Acetaminophen 1 each 05/03/20 04:20 Hydrocodone/Apap 5-325mg 1 Each Tab PO Q6HR PRN Pain Albuterol/Ipratropium 3 ml 05/03/20 04:20 Ipratropium-Albuterol 3 Ml Neb INHALATION RT-QID PRN Shortness Of Breath Alprazolam 0.25 mg 05/03/20 04:20 Alprazolam 0.25 Mg Tab PO TID PRN Anxiety Aspirin 81 mg 05/04/20 09:00 Aspirin 325 Mg Tab PO DAILY YOANA Budesonide 0.5 mg 05/03/20 04:20 Budesonide 0.5 Mg/2 Ml Nebu INHALATION RT-BID PRN sob Docusate Sodium 100 mg 05/03/20 04:20 Docusate 100 Mg Cap PO BID PRN Constipation Famotidine 20 mg 05/03/20 09:00 Famotidine 20 Mg Tab PO BID [facility] Ferrous Sulfate 325 mg 05/03/20 08:00 Ferrous Sulfate 325 Mg Tab PO BID@0800,1700 [facility] Furosemide 40 mg 05/03/20 06:00 05/03/20 06:17 Furosemide 40 Mg Tab PO 40 mg DAILY@0600 [facility] Administration Glimepiride 1 mg 05/03/20 07:30 05/03/20 06:17 Glimepiride 1 Mg Tab PO 1 mg AC-BID YOANA Administration Heparin Sodium (Porcine) 4,000 unit 05/03/20 08:25 Heparin Sodium,Porcine 5,000 Unit/Ml 1 Ml Vial IV 05/03/20 08:26 ONCE ONE Heparin Sodium (Porcine) 0 unit 05/03/20 08:25 Heparin Sodium,Porcine 5,000 Unit/Ml 1 Ml Vial IV PER PROTOCOL PRN Low PTT Protocol Heparin Sodium/Sodium Chloride 250 mls @ 14.969 mls/hr 05/03/20 08:30 25,000 unit/ Sodium Chloride IV .[id number] [facility] Protocol 12 UNITS/KG/HR Isosorbide Dinitrate 30 mg 05/03/20 21:00 Isosorbide Dinitrate 10 Mg Tab PO HS [facility] Isosorbide Mononitrate 60 mg 05/03/20 08:00 Isosorbide Mononitrate Er 30 Mg Tab.Er.24h PO DAILY@0800 [facility] Levothyroxine Sodium 112 mcg 05/03/20 06:00 05/03/20 06:17 Levothyroxine 112 Mcg Tab PO 112 mcg DAILY@0600 [facility] Administration Lisinopril 5 mg 05/03/20 09:00 Lisinopril 5 Mg Tab PO DAILY [facility] Metoprolol Succinate 100 mg 05/03/20 21:00 Metoprolol Succinate (Er) 100 Mg Tab.Er.24h PO HS [facility] Montelukast Sodium 10 mg 05/03/20 21:00 Montelukast 10 Mg Tab PO HS@2100 [facility] Nitroglycerin 0.4 mg 05/03/20 04:18 Nitroglycerin Sl Tabs 0.4 Mg Tab SUBLINGUAL Q5M PRN Chest Pain Nitroglycerin 0.4 mg 05/03/20 04:20 Nitroglycerin Sl Tabs 0.4 Mg Tab SUBLINGUAL Q5M PRN Chest Pain Pravastatin Sodium 80 mg 05/03/20 21:00 Pravastatin Sodium 40 Mg Tab PO HS [facility] Sodium Chloride 10 ml 05/03/20 09:00 Sodium Chloride 0.9% Flush 10 Ml Syringe IV BID [facility] Spironolactone 12.5 mg 05/03/20 08:00 Spironolactone 25 Mg Tab PO DAILY@0800 [facility] Intake and Output 05/02/20 05/03/20 05/03/20 22:59 06:59 14:59 Other: # Voids 1 Weight 124.738 kg 05/03/20 02:15 05/03/20 02:15
[2020-05-03 11:42] LABS: INR 1.2 (<1.2); Partial Thromboplastin Time 24.9 sec (22.0-30.0); Prothrombin Time 12.4 sec (9.0-12.0)
--- NOTE | 2020-05-03 13:11 | P.HPIM ---
History of Present Illness H&P Date: 05/03/20 HISTORY OF PRESENT ILLNESS This is a 64-year-old female patient of Dr. Deluca, Dr. Taylor with past medical history of pulmonary embolism on Xarelto, paroxysmal atrial fibrillation, non-ST elevated myocardial infarction, multivessel coronary artery disease, ischemic cardiomyopathy and chronic systolic heart failure, History of CVA, hypertension, hyperlipidemia, mild intermittent asthma, diabetes mellitus type 2, chronic kidney disease stage II. Patient complains of onset of chest pain that was a grabbing squeezing in her heart that started around 11:30 PM. She also had radiation to her jaw and difficulty breathing. She felt that she was too hot. She denies any arm involvement. She took 3 nitroglycerin of her own with no improvement. EMS arrived and she had aspirin and thought she was feeling better from having help with her. She also complains of a jabbing right sided chest pain in the breast area along with tenderness. This discomfort lasts about 5 seconds and resolves on its own. Patient presented to [facility] emergency center for evaluation. She was found to be afebrile, heart rate 78, blood pressure 130/92, pulse ox 96% on room air. Chest x-ray revealed severe cardiomegaly that appears larger since last chest x-ray in September 2018. EKG is sinus mechanism with left axis deviation. WBC 10, hemoglobin 12.2, platelet count 214. Sodium 138, potassium 5.2, chloride 102, CO2 31. BUN 24 and creatinine 0.92. Blood sugar 227. Troponin 0.024, 0.068 and 0.089. Lipase negative. Patient was started on heparin drip, Xarelto on hold and admitted to the cardiac stepdown unit. Patient has been seen in consultation by cardiology with plan to maximize medical therapy. Echocardiogram pending. REVIEW OF SYSTEMS Constitutional: No fever, no chills, no night sweats. No weight change. No weakness, fatigue or lethargy. No daytime sleepiness. EENT: No headache. No blurred vision or double vision, no loss of vision. No loss of Hearing, no ringing in the ears, no dizziness. No nasal drainage or congestion. No epistaxis. No sore throat. Lungs: Reports shortness of breath, denies cough, no sputum production. No wheezing. Cardiovascular: Reports chest pain, no lower extremity edema. No palpitations. No paroxysmal nocturnal dyspnea. No orthopnea. No lightheadedness or dizziness. No syncopal episodes. Abdominal: No abdominal pain. No nausea, vomiting. No diarrhea. No constipa tion. No bloody or tarry stools.. No loss of appetite. Genitourinary: No dysuria, increased frequency, urgency. No urinary retention. Musculoskeletal: No myalgias. No muscle weakness, no gait dysfunction, no frequent falls. No back pain. No neck pain. Integumentary: No wounds, no lesions. No rash or pruritus. No unusual bruising. No change in hair or nails. Neurologic: No aphasia. No facial droop. No change in mentation. No head injury. No headache. No paralysis. No paresthesia. Psychiatric: No depression. No anxiety. No mood swings. Endocrine: No abnormal blood sugars. No weight change. No excessive sweating or thirst. No cold intolerance. SOCIAL HISTORY Patient smoked briefly from years [age]. She denies any marijuana, illicit drug use or alcohol use. She is single and lives alone. She does not utilize CPAP, oxygen, nebulizer. She states she does have a nebulizer that is not functioning and she has not needed to use it. FAMILY HISTORY Father at age 41 from coronary artery disease. Mother at age 82 se condary to compensation from a bladder: Fistula. Patient has 2 brothers and one at age 14 from a motorcycle accident. Patient has minimal contact with the second brother. Patient does not have any children. She does not have any sisters.. PHYSICAL EXAMINATION Gen: This is a morbidly obese 64-year-old female. Patient is resting in bed and appears to be comfortable and in no acute distress. HEENT: Head is atraumatic, normocephalic. Pupils equal, round. Sclerae is anicteric. NECK: Supple. No JVD. No lymphadenopathy. No thyromegaly. LUNGS: Clear to auscultation. No wheezes or rhonchi. No intercostal retractions. Chest with tenderness on the right side. HEART: Regular rate and rhythm. No murmur. ABDOMEN: Soft. Bowel sounds are present. No masses. No tenderness. EXTREMITIES: No pedal edema. No calf tenderness. NEUROLOGICAL: Patient is awake, alert and oriented x3. Cranial nerves 2 through 12 are grossly intact. ASSESSMENT AND PLAN 1. Non-ST elevated myocardial infarction. Cardiology consult appreciated. Con tinue heparin drip and hold Xarelto. Continue aspirin 81 mg daily, Imdur 60 mg in the morning and 30 mg at bedtime, lisinopril 5 mg daily, Toprol-XL 100 mg at bedtime, pravastatin 80 mg at bedtime. 2. Paroxysmal atrial fibrillation. Patient is not really on Xarelto. Continue Toprol-XL. 3. History of multivessel coronary artery disease. Continue as in #1. 4. Ischemic cardiomyopathy with chronic systolic heart failure. Continue Lasix 40 mg oral daily, Aldactone 12.5 mg daily. 5. History of CVA with no new symptoms. 6. Hypertension. Continue lisinopril and Toprol-XL. 7. Hyperlipidemia. Continue pravastatin. 8. Mild intermittent asthma without exacerbation. Continue Singulair 10 mg at bedtime, DuoNeb treatment as needed. 9. Hypothyroidism. Continue levothyroxine 112 g daily. 10. Diabetes mellitus type 2. Continue glimepiride 1 mg twice daily, and NovoLog scale 11. Chronic kidney disease stage II, stable. 12. GI prophylaxis. Protonix. 13. DVT prophylaxis. Heparin drip and transition to Xarelto. Patient will be admitted to the hospital for a minimum of 2 night stay. DISCHARGE PLAN Most likely return home with homecare. Patient has been at [facility] in the past. Impression and plan of care have been directed as dictated by the signing physician. Ester Hobson nurse practitioner acting as scribe for signing physician. Past Medical History Past Medical History: Atrial Fibrillation, Asthma, Coronary Artery Disease (CAD), Heart Failure, CVA/TIA, Diabetes Mellitus, Deep Vein Thrombosis (DVT), Fibromyalgia, Hyperlipidemia, Hypertension, Myocardial Infarction (RI), Osteoarthritis (OA), Pulmonary Embolus (PE), Skin Disorder, Thyroid Disorder Additional Past Medical History / Comment(s): frequent uti's,kidney stones,HEART MURMUR,cardiomyopathy,CHRONIC CONSTIPATION, ECZEMA,SINUS HEADACHES, HX ANEMIA, gout. stage III kidney disease stage 3,lower back pain. 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.FEEt, weakness LT SIDE, ,stg three kidney disease,eye disorder fuchs corneal dyst rophy. Last Myocardial Infarction Date:: UNKNOWN History of Any Multi-Drug Resistant Organisms: ESBL Date of last positivie culture/infection: 02/28/18 MDRO Source:: ESBL URINE Past Surgical History: Appendectomy, Cardiac Ablation, Cholecystectomy, Heart Catheterization, Heart Catheterization With Stent, Hysterectomy Additional Past Surgical History / Comment(s): PARTIAL HYSTERECTOMY 03/18/14 @ [facility]. CATARACT BLACK. WITH IMPLANTS. HEART CATH X 3 TOTAL 3 STENTS, lithotripsy,kidney stents-since removed. Past Anesthesia/Blood Transfusion Reactions: Motion Sickness Additional Past Anesthesia/Blood Transfusion Reaction / Comment(s): no hx blood transfusion Date of Last Stent Placement:: UNKNOWN Past Psychological History: Depression Additional Psychological History / Comment(s): pt lives alone in how home, uses cane when up .receives [employer] services and someone to help her shower. Smoking Status: Never smoker Past Alcohol Use History: None Reported Additional Past Alcohol Use History / Comment(s): SMOKED AGE 15 TO AGE 21 -WHEN QUIT WAS SMOKING 1/2 PPD Past Drug Use History: None Reported - Past Family History Father Additional Family Medical History / Comment(s): "HARDENEING OF THE ARTERIES AT AGE 41. SMOKED AND DRANK ETOH Mother Family Medical History: Cancer Additional Family Medical History / Comment(s): "cyst that ruptured between bowel and bladder" Medications and Allergies Home Medications Medication Instructions Recorded Confirmed Type Isosorbide Mononitrate ER [Imdur] 60 mg PO W/LUNCH 05/12/14 05/03/20 History Nitroglycerin Sl Tabs [Nitrostat] 0.4 mg SUBLINGUAL Q5M PRN tab 01/14/17 05/03/20 Rx Ferrous Sulfate [Iron (65 MG 650 mg PO W/LUNCH 08/28/17 05/03/20 History Elemental)] Furosemide [Lasix] 40 mg PO DAILY PRN 08/28/17 05/03/20 History Glimepiride [Amaryl] 2 mg PO AC-BRKFST 08/28/17 05/03/20 History Levothyroxine Sodium [Synthroid] 112 mcg PO DAILY 08/28/17 05/03/20 History Montelukast [Singulair] 10 mg PO HS 08/28/17 05/03/20 History Cetirizine HCl [Zyrtec] 10 mg PO W/LUNCH 01/21/18 05/03/20 History Docusate [Colace] 300 mg PO HS 01/21/18 05/03/20 History Allopurinol [Zyloprim] 100 mg PO W/LUNCH 05/03/20 05/03/20 History Glimepiride [Amaryl] 1 mg PO DAILY 05/03/20 05/03/20 History Metoprolol Succinate (ER) [Toprol 100 mg PO DAILY 05/03/20 05/03/20 History Xl] Pravastatin Sodium [Pravachol] 80 mg PO W/LUNCH 05/03/20 05/03/20 History Rivaroxaban [Xarelto] 20 mg PO W/SUPPER 05/03/20 05/03/20 History Spironolactone [Aldactone] 12.5 mg PO W/LUNCH 05/03/20 05/03/20 History Xarelto 15 - 20 mg PO W/SUPPER 05/03/20 05/03/20 History bisacodyL [Dulcolax] 10 mg PO DAILY PRN 05/03/20 05/03/20 History traMADol HCL 50 - 100 mg PO TID PRN 05/03/20 05/03/20 History Allergies Allergy/AdvReac Type Severity Reaction Status Date / Time latex Allergy Rash/Hives Verified 05/03/20 08:55 Milk Containing Products AdvReac THRUSH Verified 05/03/20 08:55 [Dairy] Tetracyclines AdvReac YEAST Verified 05/03/20 08:55 INFECTION- PREFERS NOT TO TAKE ENVIRONMENTAL ALLERGIES Allergy SINUS Uncoded 05/03/20 08:55 SYMPTOMS-GRASS TREES,DUST,POLLENS,MOLD Physical Exam Vitals: Vital Signs Temp Pulse Pulse Resp BP BP Pulse Ox 05/03/20 05:45 97.5 F L 67 18 133/61 97 05/03/20 05:20 58 L 05/03/20 05:14 56 L 20 125/76 99 05/03/20 01:55 98 F 78 18 134/92 96 Intake and Output 05/02/20 05/03/20 05/03/20 22:59 06:59 14:59 Other: # Voids 1 Weight 124.738 kg Results CBC & Chem 7: 05/03/20 02:15 05/03/20 02:15 Labs: Abnormal Lab Results - Last 24 Hours (Table) 05/03/20 05/03/20 05/03/20 Range/Units 02:15 02:15 02:15 MCHC 30.3 L (31.0-37.0) g/dL RDW 15.9 H (11.5-15.5) % PT 13.4 H (9.0-12.0) sec INR 1.3 H (<1.2) Potassium 5.2 H (3.5-5.1) mmol/L Carbon Dioxide 31 H (22-30) mmol/L BUN 24 H (7-17) mg/dL Glucose 227 H (74-99) mg/dL POC Glucose (mg/dL) (75-99) mg/dL Troponin I (0.000-0.034) ng/mL 05/03/20 05/03/20 Range/Units 05:34 06:12 MCHC (31.0-37.0) g/dL RDW (11.5-15.5) % PT (9.0-12.0) sec INR (<1.2) Potassium (3.5-5.1) mmol/L Carbon Dioxide (22-30) mmol/L BUN (7-17) mg/dL Glucose (74-99) mg/dL POC Glucose (mg/dL) 142 H (75-99) mg/dL Troponin I 0.068 H* (0.000-0.034) ng/mL Thrombosis Risk Factor Assmnt - Choose All That Apply Any of the Below Risk Factors Present?: Yes Each Factor Represents 1 point: Obesity (BMI >25) Each Risk Factor Represents 2 Points: Age 61-74 years Each Risk Factor Represents 3 Points: History of DVT/PE Other congenital or acquired thrombophilia - If yes, enter type in comment: No Thrombosis Risk Factor Assessment Total Risk Factor Score: 6 Thrombosis Risk Factor Assessment Level: High Risk
[2020-05-03 17:10] LABS: Glucose,Whole Blood 108 mg/dL (75-99)
[2020-05-03] MEDS: INSULIN ASPART (NovoLOG) 100 UNIT/ML VIAL SQ SCH ×2 (17:35→20:18)
[2020-05-03 20:05] LABS: Glucose,Whole Blood 129 mg/dL (75-99)
[2020-05-03] MEDS ORDERED: ISOSORBIDE DINITRATE 10 MG TAB PO SCH (21:00)
[2020-05-03] MEDS ORDERED: METOPROLOL SUCCINATE (ER) 100 MG TAB.ER.24H PO SCH (21:00)
[2020-05-03] MEDS ORDERED: MONTELUKAST 10 MG TAB PO SCH (21:00)
[2020-05-03] MEDS ORDERED: PRAVASTATIN SODIUM 40 MG TAB PO SCH (21:00)
[2020-05-04] MEDS: HYDROcodone/APAP 5-325MG 1 EACH TAB PO PRN ×2 (00:01→06:28)
[2020-05-04 03:49] LABS: Basophils # (A) 0.1 k/uL (0-0.2); Basophils % (A) 1 %; Eosinophils # (A) 0.5 k/uL (0-0.7); Eosinophils % (A) 5 %; HCT 38.2 % (34.0-46.0); HGB 11.4 gm/dL (11.4-16.0); Hypochromasia Marked; Lymphocytes # (A) 2.3 k/uL (1.0-4.8); Lymphocytes % (A) 24 %; MCH 25.8 pg (25.0-35.0); MCHC 29.8 g/dL (31.0-37.0); MCV 86.6 fL (80.0-100.0); Monocytes # (A) 0.6 k/uL (0-1.0); Monocytes % (A) 6 %; Neutrophils # (A) 6.2 k/uL (1.3-7.7); Neutrophils % (A) 63 %; Platelet Count 179 k/uL (150-450); RBC 4.41 m/uL (3.80-5.40); RDW 15.9 % (11.5-15.5); WBC 9.8 k/uL (3.8-10.6)
[2020-05-04 04:10] LABS: Cholesterol 156 mg/dL (<200); HDL Cholesterol 44 mg/dL (40-60); LDL Cholesterol,Calculated 81 mg/dL (0-99); Triglycerides 157 mg/dL (<150)
[2020-05-04 04:27] VITALS: RESP 18; TEMP 97.7
[2020-05-04 06:22] LABS: Glucose,Whole Blood 100 mg/dL (75-99)
[2020-05-04] MEDS: INSULIN ASPART (NovoLOG) 100 UNIT/ML VIAL SQ SCH ×2 (06:25→13:33)
[2020-05-04] MEDS: LEVOTHYROXINE 112 MCG TAB PO SCH (06:28)
[2020-05-04] MEDS: GLIMEPIRIDE 1 MG TAB PO SCH (06:28)
[2020-05-04] MEDS: FUROSEMIDE 40 MG TAB PO SCH (06:28)
[2020-05-04] MEDS ORDERED: ASPIRIN 81 MG PO SCH (09:00)
[2020-05-04] MEDS ORDERED: ASPIRIN 325 MG TAB PO SCH (09:00)
[2020-05-04] MEDS: FAMOTIDINE 20 MG TAB PO SCH (09:21)
[2020-05-04] MEDS: SPIRONOLACTONE 25 MG TAB PO SCH (09:21)
[2020-05-04] MEDS: lisinopriL 5 MG TAB PO SCH (09:22)
[2020-05-04] MEDS: HEPARIN SOD,PORK IN 0.45% NACL 25,000 UNIT in 0.45% NACL 1 250ML.BAG IV SCH (09:22)
[2020-05-04] MEDS: FERROUS SULFATE 325 MG TAB PO SCH ×2 (09:22→17:11)
[2020-05-04] MEDS: ISOSORBIDE MONONITRATE ER 30 MG TAB.ER.24H PO SCH (09:22)
[2020-05-04 09:58] VITALS: BP 121/56
--- NOTE | 2020-05-04 11:40 | P.PN ---
Subjective HISTORY OF PRESENTING ILLNESS This is a pleasant 64-year-old female past medical history significant for multivessel coronary artery disease, ischemic cardiomyopathy, diabetes mellitus, paroxysmal atrial fibrillation on long-term anticoagulation, dyslipidemia, chronic systolic heart failure and morbid obesity. She follows in the office with Dr. Taylor. She is seen and examined sitting up in bed in no acute distress. She denies any further symptoms of chest discomfort. She has no shortness of breath, dizziness or palpitations. Blood pressure 121/56 heart rate 62 afebrile maintaining oxygen saturation on room air. Laboratory data reviewed, WBC 9.8, hemoglobin 11.4, platelets 179, LDL 81 and HDL 44. PHYSICAL EXAMINATION CONSTITUTIONAL: No apparent distress. Morbidly obese. HEENT: Head is normocephalic. Pupils are equal, round. Sclerae anicteric. Mucous membranes of the mouth are moist. No JVD. No carotid bruit. CHEST EXAMINATION: Lungs are clear to auscultation. No chest wall tenderness is noted on palpation or with deep breathing. HEART EXAMINATION: Regular rate and rhythm. S1, S2 heard. No murmurs, gallops or rub. EXTREMITIES: 2+ peripheral pulses, no lower extremity edema and no calf tenderness. ASSESSMENT Non-ST elevated myocardial infarction Unstable angina Multivessel coronary artery disease not amenable to any further PCI, patient declined bypass grafting in the past Ischemic cardiomyopathy Diabetes mellitus Paroxysmal atrial fibrillation on Xarelto Dyslipidemia Morbid obesity, BMI 48 PLAN Discontinue heparin infusion. Echocardiogram is pending and will be reviewed. Clinically stable for discharge from a cardiac perspective on maximum medical therapy. Follow-up in the office with Dr. Taylor next week. Nurse Practitioner note has been reviewed, I agree with a documented findings and plan of care. Patient was seen and examined. Objective - Vital Signs Vital signs: Vital Signs Temp 97.7 F 05/04/20 08:00 Pulse 62 05/04/20 08:00 Resp 18 05/04/20 08:00 BP 121/56 05/04/20 08:00 Pulse Ox 93 L 05/04/20 08:00 Intake & Output 05/03/20 05/04/20 05/04/20 18:59 06:59 18:59 Intake Total 472 195.175 35.093 Output Total 1000 100 200 Balance -528 95.175 -164.907 Weight 120.3 kg Intake: Intake, IV Titration 195.175 35.093 Amount Heparin Sod,Pork in 0.45% 195.175 35.093 NaCl 25,000 unit In 0.45 % NaCl 1 250ml.bag @ 8 UNITS/KG/HR 9.979 mls/hr IV .Q24H [facility] Rx#: [id number] Oral 472 0 Output: Urine 1000 100 200 Other: Voiding Method Toilet Toilet Diaper Diaper # Voids 1 2 1 # Bowel Movements 1 - Labs CBC & Chem 7: 05/04/20 03:21 05/03/20 02:15 Labs: Abnormal Lab Results - Last 24 Hours (Table) 05/03/20 05/03/20 05/03/20 Range/Units 11:11 11:37 17:00 MCHC (31.0-37.0) g/dL RDW (11.5-15.5) % PT 12.4 H (9.0-12.0) sec INR 1.2 H (<1.2) APTT (22.0-30.0) sec POC Glucose (mg/dL) 72 L 108 H (75-99) mg/dL Triglycerides (<150) mg/dL 05/03/20 05/03/20 05/04/20 Range/Units 18:00 20:04 03:21 MCHC (31.0-37.0) g/dL RDW (11.5-15.5) % PT (9.0-12.0) sec INR (<1.2) APTT 35.4 H (22.0-30.0) sec POC Glucose (mg/dL) 129 H (75-99) mg/dL Triglycerides 157 H (<150) mg/dL 05/04/20 05/04/20 05/04/20 Range/Units 03:21 03:21 06:21 MCHC 29.8 L (31.0-37.0) g/dL RDW 15.9 H (11.5-15.5) % PT (9.0-12.0) sec INR (<1.2) APTT 72.1 H (22.0-30.0) sec POC Glucose (mg/dL) 100 H (75-99) mg/dL Triglycerides (<150) mg/dL
[2020-05-04 12:03] LABS: Glucose,Whole Blood 70 mg/dL (75-99)
--- NOTE | 2020-05-04 12:12 | P.DS ---
Providers Date of admission: 05/03/20 04:18 Expected date of discharge: 05/04/20 Attending physician: Jaydon Pastor Consults: 05/03/20 04:18 Consult Physician Routine Consulting Provider: Myrna Logan Consult Reason/Comments: chest pain Do you want consulting provider notified?: Yes Primary care physician: Lor Yosi [facility] Course: HISTORY OF PRESENT ILLNESS This is a 64-year-old female patient of Dr. Deluca, Dr. Taylor with past medical history of pulmonary embolism on Xarelto, paroxysmal atrial fibrillation, non-ST elevated myocardial infarction, multivessel coronary artery disease, ischemic cardiomyopathy and chronic systolic heart failure, History of CVA, hypertension, hyperlipidemia, mild intermittent asthma, diabetes mellitus type 2, chronic kidney disease stage II. Patient complains of onset of chest pain that was a grabbing squeezing in her heart that started around 11:30 PM. She also had radiation to her jaw and difficulty breathing. She felt that she was too hot. She denies any arm involvement. She took 3 nitroglycerin of her own with no improvement. EMS arrived and she had aspirin and thought she was feeling better from having help with her. She also complains of a jabbing right sided chest pain in the breast area along with tenderness. This discomfort lasts about 5 seconds and resolves on its own. Patient presented to [facility] emergency center for evaluation. She was found to be afebrile, heart rate 78, blood pressure 130/92, pulse ox 96% on room air. Chest x-ray revealed severe cardiomegaly that appears larger since last chest x-ray in September 2018. EKG is sinus mechanism with left axis deviation. WBC 10, hemoglobin 12.2, platelet count 214. Sodium 138, potassium 5.2, chloride 102, CO2 31. BUN 24 and creatinine 0.92. Blood sugar 227. Troponin 0.024, 0.068 and 0.089. Lipase negative. Patient was started on heparin drip, Xarelto on hold and admitted to the cardiac stepdown unit. Patient has been seen in consultation by cardiology with plan to maximize medical therapy. Echocardiogram pending. 05/04: ASSESSMENT AND PLAN 1. Non-ST elevated myocardial infarction. 2. Paroxysmal atrial fibrillation. 3. History of multivessel coronary artery disease. 4. Ischemic cardiomyopathy with chronic systolic heart failure. 5. History of CVA with no new symptoms. 6. Hypertension. 7. Hyperlipidemia. 8. Mild intermittent asthma without exacerbation. 9. Hypothyroidism. 10. Diabetes mellitus type 2. 11. Chronic kidney disease stage II, stable. DISCHARGE PLAN Most likely return home with homecare. Patient has been at [facility] in the past. Impression and plan of care have been directed as dictated by the signing physician. Ester Hobson nurse practitioner acting as scribe for signing physician. Patient Condition at Discharge: Good Plan - Discharge Summary Discharge Rx Participant: No New Discharge Prescriptions: New Aspirin 81 mg PO DAILY chew Nitroglycerin Sl Tabs [Nitrostat] 0.4 mg SUBLINGUAL Q5M PRN #25 tab PRN Reason: Chest Pain lisinopriL [Zestril] 5 mg PO DAILY #30 tab Continue Isosorbide Mononitrate ER [Imdur] 60 mg PO W/LUNCH Nitroglycerin Sl Tabs [Nitrostat] 0.4 mg SUBLINGUAL Q5M PRN tab PRN Reason: Chest Pain Montelukast [Singulair] 10 mg PO HS Furosemide [Lasix] 40 mg PO DAILY PRN PRN Reason: Edema Ferrous Sulfate [Iron (65 MG Elemental)] 650 mg PO W/LUNCH Levothyroxine Sodium [Synthroid] 112 mcg PO DAILY Glimepiride [Amaryl] 2 mg PO AC-BRKFST Cetirizine HCl [Zyrtec] 10 mg PO W/LUNCH Docusate [Colace] 300 mg PO HS traMADol HCL 50 - 100 mg PO TID PRN PRN Reason: Pain Metoprolol Succinate (ER) [Toprol XL] 100 mg PO DAILY bisacodyL [Dulcolax] 10 mg PO DAILY PRN PRN Reason: Constipation Pravastatin Sodium [Pravachol] 80 mg PO W/LUNCH Glimepiride [Amaryl] 1 mg PO DAILY Rivaroxaban [Xarelto] 20 mg PO W/SUPPER Xarelto 15 - 20 mg PO W/SUPPER Allopurinol [Zyloprim] 100 mg PO W/LUNCH Spironolactone [Aldactone] 12.5 mg PO W/LUNCH Discharge Medication List Isosorbide Mononitrate ER [Imdur] 60 mg PO W/LUNCH 05/12/14 [History] Nitroglycerin Sl Tabs [Nitrostat] 0.4 mg SUBLINGUAL Q5M PRN tab 01/14/17 [Rx] Ferrous Sulfate [Iron (65 MG Elemental)] 650 mg PO W/LUNCH 08/28/17 [History] Furosemide [Lasix] 40 mg PO DAILY PRN 08/28/17 [History] Glimepiride [Amaryl] 2 mg PO AC-BRKFST 08/28/17 [History] Levothyroxine Sodium [Synthroid] 112 mcg PO DAILY 08/28/17 [History] Montelukast [Singulair] 10 mg PO HS 08/28/17 [History] Cetirizine HCl [Zyrtec] 10 mg PO W/LUNCH 01/21/18 [History] Docusate [Colace] 300 mg PO HS 01/21/18 [History] Allopurinol [Zyloprim] 100 mg PO W/LUNCH 05/03/20 [History] Glimepiride [Amaryl] 1 mg PO DAILY 05/03/20 [History] Metoprolol Succinate (ER) [Toprol XL] 100 mg PO DAILY 05/03/20 [History] Pravastatin Sodium [Pravachol] 80 mg PO W/LUNCH 05/03/20 [History] Rivaroxaban [Xarelto] 20 mg PO W/SUPPER 05/03/20 [History] Spironolactone [Aldactone] 12.5 mg PO W/LUNCH 05/03/20 [History] Xarelto 15 - 20 mg PO W/SUPPER 05/03/20 [History] bisacodyL [Dulcolax] 10 mg PO DAILY PRN 05/03/20 [History] traMADol HCL 50 - 100 mg PO TID PRN 05/03/20 [History] Aspirin 81 mg PO DAILY chew 05/04/20 [Rx] Nitroglycerin Sl Tabs [Nitrostat] 0.4 mg SUBLINGUAL Q5M PRN #25 tab 05/04/20 [Rx] lisinopriL [Zestril] 5 mg PO DAILY #30 tab 05/04/20 [Rx] Follow up Appointment(s)/Referral(s): Pradeep Taylor MD [STAFF PHYSICIAN] - 1 Week Lor Deluca MD [Primary Care Provider] - 1 Week (VIRTUAL visit is ok) Discharge Disposition: HOME WITH HOME HEALTH SERVICES
--- NOTE | 2020-05-04 13:00 | ECHOF ---
Referral Reason:nstemi MEASUREMENTS -------- HEIGHT: 160.0 cm WEIGHT: 124.7 kg BP: IVSd: 0.8 cm (0.6 - 1.1) LVIDd: 6.3 cm (3.9 - 5.3) LVPWd: 1.6 cm (0.6 - 1.1) IVSs: 1.2 cm LVIDs: 3.3 cm LVPWs: 2.0 cm Ao Diam: 3.3 cm (2.0 - 3.7) AV Cusp: 1.4 cm (1.5 - 2.6) MV E Chris: 0.55 m/s MV DecT: 243 ms MV A Chris: 0.59 m/s MV E/A Ratio: 0.94 RAP: 5.00 mmHg RVSP: 40.14 mmHg FINDINGS -------- Sinus rhythm. This was a technically difficult study with suboptimal views. Morbid Obesity The left ventricular size is normal. There is mild concentric left ventricular hypertrophy. Overa ll left ventricular systolic function is mild-moderately impaired with, an EF between 40 - 45 %. Ba rusty lateral LV wall motion is hypokinetic. Basal inferior LV wall motion is hypokinetic. Mid la teral LV wall motion is hypokinetic. Mid inferior LV wall motion is hypokinetic. Normal LA size by volume 22+/-6 ml/m2. The right atrial size is normal. 5.0mg OF Lumason UTLIZED: 2 OR MORE WALL SEGMENTS NOT VISUALIZED. The aortic valve was not well visualized. Mild mitral annular calcification present. The tricuspid valve was not well visualized. Mild tricuspid regurgitation present. There is mild pulmonary hypertension. The right ventricular systolic pressure, as measured by Doppler, is 40.14mm Hg. The pulmonic valve was not well visualized. The aortic root size is normal. There is no pericardial effusion. CONCLUSIONS -------- 1. This was a technically difficult study with suboptimal views. 2. Morbid Obesity 3. There is mild concentric left ventricular hypertrophy. 4. Overall left ventricular systolic function is mild-moderately impaired with, an EF between 40 - 45 %. 5. Basal lateral LV wall motion is hypokinetic. 6. Basal inferior LV wall motion is hypokinetic. 7. Mid lateral LV wall motion is hypokinetic. 8. Mid inferior LV wall motion is hypokinetic. 9. 5.0mg OF Lumason UTLIZED: 2 OR MORE WALL SEGMENTS NOT VISUALIZED. 10. The aortic valve was not well visualized. 11. Mild mitral annular calcification present. 12. The tricuspid valve was not well visualized. 13. Mild tricuspid regurgitation present. 14. There is mild pulmonary hypertension. 15. There is no pericardial effusion. BUILDING ECONOMIST: Sheryl Gill RDCS
[2020-05-04 15:31] VITALS: PULSE 61
== END 2020-05-04 18:11 | disposition home health service (06) | DRG 281 ==
LOC: EC 01:42 → 3SCARD 04:18
PROVIDERS: ADMIT Internal Medicine Geriatric Medicine; ATTEND Internal Medicine Geriatric Medicine
DX: I21.4 Non-ST elevation (NSTEMI) myocardial infarction (principal); I50.22 Chronic systolic (congestive) heart failure; I13.0 Hypertensive heart and chronic kidney disease with heart failure and stage 1 through stage 4 chronic kidney disease, or unspecified chronic kidney disease; Z68.42 Body mass index [BMI] 45.0-49.9, adult; E11.42 Type 2 diabetes mellitus with diabetic polyneuropathy; E11.22 Type 2 diabetes mellitus with diabetic chronic kidney disease; E66.01 Morbid (severe) obesity due to excess calories; I48.0 Paroxysmal atrial fibrillation; N18.2 Chronic kidney disease, stage 2 (mild); E78.5 Hyperlipidemia, unspecified; I25.5 Ischemic cardiomyopathy; I25.10 Atherosclerotic heart disease of native coronary artery without angina pectoris; I08.1 Rheumatic disorders of both mitral and tricuspid valves; J45.20 Mild intermittent asthma, uncomplicated; M79.7 Fibromyalgia; L30.9 Dermatitis, unspecified; M19.90 Unspecified osteoarthritis, unspecified site; H18.519 Endothelial corneal dystrophy, unspecified eye; K59.09 Other constipation; M10.9 Gout, unspecified; E03.9 Hypothyroidism, unspecified; F32.9 Major depressive disorder, single episode, unspecified; I25.2 Old myocardial infarction; Z79.84 Long term (current) use of oral hypoglycemic drugs; Z79.890 Hormone replacement therapy; Z79.899 Other long term (current) drug therapy; Z79.01 Long term (current) use of anticoagulants; Z95.5 Presence of coronary angioplasty implant and graft; Z86.711 Personal history of pulmonary embolism; Z90.711 Acquired absence of uterus with remaining cervical stump; Z86.73 Personal history of transient ischemic attack (TIA), and cerebral infarction without residual deficits; Z90.49 Acquired absence of other specified parts of digestive tract; Z98.42 Cataract extraction status, left eye; Z98.41 Cataract extraction status, right eye; Z87.440 Personal history of urinary (tract) infections; Z87.442 Personal history of urinary calculi; Z87.891 Personal history of nicotine dependence; Z88.1 Allergy status to other antibiotic agents; Z91.040 Latex allergy status; Z91.011 Allergy to milk products; Z80.9 Family history of malignant neoplasm, unspecified; Z81.1 Family history of alcohol abuse and dependence; Z82.49 Family history of ischemic heart disease and other diseases of the circulatory system
CPT/HCPCS: 36415; 71045; 80053; 80061; 82150; 83690; 83735; 83880; 84484; 85025; 85379; 85610; 85730; 93005; 93306; 94640; 94760; 99285

== ENCOUNTER 2021-05-22 18:33 | Inpatient (IN) | payer MEDICARE, OTHER ==
--- NOTE | 2021-05-22 19:40 | ED ---
Lower Extremity Injury HPI - General Chief Complaint: Extremity Injury, Lower Stated Complaint: right ankle pain Time Seen by Provider: 05/22/21 19:16 Source: patient, EMS, RN notes reviewed Mode of arrival: EMS Limitations: physical limitation - History of Present Illness Initial Comments: This is a pleasant 65-year-old female presents after injuring her right foot and lower leg at home. Patient states she stood up to try to go the bathroom and twisted her right foot. She is complaining of pain across the midfoot area. Patient states pain is exacerbated by movement and attempted ambulation. It does radiate into the lower leg at times. Alleviated by rest. Onset just prior to arrival. Pain is sharp. Denies any other injuries. Patient does use a walker at home. Denies head or neck injury. No headache, no fever or chills, no changes in vision or hearing, no sore throat or difficulty with speech, no neck pain, no chest pain or shortness of breath, no abdominal pain, no nausea or vomiting, no changes in urination or bowel movements, no numbness or tingling, no skin rashes or lesions. MD Complaint: foot injury - Related Data Home Medications Medication Instructions Recorded Confirmed Isosorbide Mononitrate ER [Imdur] 60 mg PO W/LUNCH 05/12/14 05/03/20 Ferrous Sulfate [Iron (65 MG 650 mg PO W/LUNCH 08/28/17 05/03/20 Elemental)] Furosemide [Lasix] 40 mg PO DAILY PRN 08/28/17 05/03/20 Glimepiride [Amaryl] 2 mg PO AC-BRKFST 08/28/17 05/03/20 Levothyroxine Sodium [Synthroid] 112 mcg PO DAILY 08/28/17 05/03/20 Montelukast [Singulair] 10 mg PO HS 08/28/17 05/03/20 Cetirizine HCl [Zyrtec] 10 mg PO W/LUNCH 01/21/18 05/03/20 Docusate [Colace] 300 mg PO HS 01/21/18 05/03/20 Allopurinol [Zyloprim] 100 mg PO W/LUNCH 05/03/20 05/03/20 Glimepiride [Amaryl] 1 mg PO DAILY 05/03/20 05/03/20 Metoprolol Succinate (ER) [Toprol 100 mg PO DAILY 05/03/20 05/03/20 XL] Pravastatin Sodium [Pravachol] 80 mg PO W/LUNCH 05/03/20 05/03/20 Rivaroxaban [Xarelto] 20 mg PO W/SUPPER 05/03/20 05/03/20 Spironolactone [Aldactone] 12.5 mg PO W/LUNCH 05/03/20 05/03/20 Xarelto 15 - 20 mg PO W/SUPPER 05/03/20 05/03/20 bisacodyL [Dulcolax] 10 mg PO DAILY PRN 05/03/20 05/03/20 traMADol HCL 50 - 100 mg PO TID PRN 05/03/20 05/03/20 Previous Rx's Medication Instructions Recorded Nitroglycerin Sl Tabs [Nitrostat] 0.4 mg SUBLINGUAL Q5M PRN tab 01/14/17 Aspirin 81 mg PO DAILY chew 05/04/20 Nitroglycerin Sl Tabs [Nitrostat] 0.4 mg SUBLINGUAL Q5M PRN #25 tab 05/04/20 lisinopriL [Zestril] 5 mg PO DAILY #30 tab 05/04/20 Allergies Allergy/AdvReac Type Severity Reaction Status Date / Time latex Allergy Rash/Hives Verified 05/03/20 08:55 Milk Containing Products AdvReac THRUSH Verified 05/03/20 08:55 [Dairy] Tetracyclines AdvReac YEAST Verified 05/03/20 08:55 INFECTION- PREFERS NOT TO TAKE ENVIRONMENTAL ALLERGIES Allergy SINUS Uncoded 05/03/20 08:55 SYMPTOMS-GRASS TREES,DUST,POLLENS,MOLD Review of Systems ROS Statement: Those systems with pertinent positive or pertinent negative responses have been documented in the HPI. ROS Other: All systems not noted in ROS Statement are negative. Past Medical History Past Medical History: Atrial Fibrillation, Asthma, Coronary Artery Disease (CAD), Heart Failure, CVA/TIA, Diabetes Mellitus, Deep Vein Thrombosis (DVT), Fibromyalgia, Hyperlipidemia, Hypertension, Myocardial Infarction (IN), Osteoarthritis (OA), Pulmonary Embolus (PE), Skin Disorder, Thyroid Disorder Additional Past Medical History / Comment(s): frequent uti's,kidney stones,HEART MURMUR,cardiomyopathy,CHRONIC CONSTIPATION, ECZEMA,SINUS HEADACHES, HX ANEMIA, gout. stage III kidney disease stage 3,lower back pain. 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.FEEt, weakness LT SIDE, ,stg three kidney disease,eye disorder fuchs corneal dystrophy. Last Myocardial Infarction Date:: UNKNOWN History of Any Multi-Drug Resistant Organisms: ESBL Date of last positivie culture/infection: 02/28/18 MDRO Source:: ESBL URINE Past Surgical History: Appendectomy, Cardiac Ablation, Cholecystectomy, Heart Catheterization, Heart Catheterization With Stent, Hysterectomy Additional Past Surgical History / Comment(s): PARTIAL HYSTERECTOMY 03/18/14 @ [facility]. CATARACT BLACK. WITH IMPLANTS. HEART CATH X 3 TOTAL 3 STENTS, lithotripsy,kidney stents-since removed. Past Anesthesia/Blood Transfusion Reactions: Motion Sickness Additional Past Anesthesia/Blood Transfusion Reaction / Comment(s): no hx blood transfusion Date of Last Stent Placement:: UNKNOWN Past Psychological History: Depression Smoking Status: Never smoker Past Alcohol Use History: None Reported Past Drug Use History: None Reported - Past Family History Father Additional Family Medical History / Comment(s): "HARDENEING OF THE ARTERIES AT AGE 41. SMOKED AND DRANK ETOH Mother Family Medical History: Cancer Additional Family Medical History / Comment(s): "cyst that ruptured between bowel and bladder" General Exam - General Exam Comments Initial Comments: Obese female mild distress secondary to an orthopedic injury to the right foot.. Limitations: physical limitation General appearance: alert, in distress, obese Head exam: Present: atraumatic, normocephalic, normal inspection Eye exam: Present: normal appearance, PERRL, EOMI. Absent: scleral icterus, conjunctival injection, periorbital swelling ENT exam: Present: normal exam, mucous membranes moist Neck exam: Present: normal inspection. Absent: tenderness, meningismus, lymphadenopathy Respiratory exam: Present: normal lung sounds bilaterally. Absent: respiratory distress, wheezes, rales, rhonchi, stridor Cardiovascular Exam: Present: regular rate, normal rhythm, normal heart sounds. Absent: systolic murmur, diastolic murmur, rubs, gallop, clicks GI/Abdominal exam: Present: soft, normal bowel sounds. Absent: distended, tenderness, guarding, rebound, rigid Extremities exam: Present: normal inspection, tenderness, normal capillary refill. Absent: pedal edema, joint swelling, calf tenderness Right Lower Leg exam: Present: normal inspection, tenderness (Minimal tenderness along the lateral aspect of the left lower leg overlying the fibula). Absent: swelling, abrasion, laceration, crepitus, dislocation, erythema, palpable cord, Homans' sign Ankle exam: Present: normal inspection, full ROM. Absent: tenderness, swelling, abrasion, laceration, ecchymosis, deformity, crepitus, dislocation Foot/Toe exam: Present: tenderness. Absent: swelling, abrasion, laceration, ecchymosis, deformity, crepitus, dislocation, erythema, amputation, puncture wound, foreign body, calcaneal tenderness, tenderness at base of 5th metatarsal, nail avulsion, subungual hematoma Neurovascular tendon exam: Present: no vascular compromise. Absent: pulse deficit, abnormal cap refill, motor deficit, pallor, abnormal 2-point discrimination, foot drop Back exam: Present: normal inspection Neurological exam: Present: alert, oriented X3, CN II-XII intact Psychiatric exam: Present: normal affect, normal mood Skin exam: Present: warm, dry, intact, normal color. Absent: rash Course Vital Signs 05/22/21 18:51 Temperature 98.1 F Pulse Rate 78 Respiratory 18 Rate Blood Pressure 103/71 O2 Sat by Pulse 97 Oximetry Medical Decision Making - Medical Decision Making Isolated orthopedic injury and a mobility impaired patient. Patient does ambulate at home with a walker Patient failed attempted ambulation and was unable to ambulate with a walker. Discussed case in detail with Dr. Hinojosa who agreed to admit the patient for probable rehabilitation placement. Case was discussed with ED attending physician, Dr. Degroot Disposition Clinical Impression: Unspecified sprain of right foot, initial encounter, Debility, Physical deconditioning Disposition: ADMITTED IP TO THIS HOSP Condition: Stable Referrals: Lor Deluca MD [Primary Care Provider] - 1-2 days Decision to Admit Reason: Admit from EC Decision Time: 21:34
[2021-05-22] MEDS ORDERED: ACETAMINOPHEN TAB 500 MG TAB PO STA (19:59)
--- NOTE | 2021-05-22 20:30 | XR ---
EXAMINATION TYPE: XR tibia fibula RT DATE OF EXAM: 05/22/2021 COMPARISON: NONE HISTORY: Pain TECHNIQUE: 4 views FINDINGS: There is minor spurring of the medial femoral and tibial condyles. I see no fracture nor di slocation. There is soft tissue swelling around the ankle. IMPRESSION: No fracture seen. There is some osteoarthritis at the knee joint. Mild soft tissue swelli ng at the ankle.
--- NOTE | 2021-05-22 20:31 | XR ---
EXAMINATION TYPE: XR foot limited RT DATE OF EXAM: 05/22/2021 COMPARISON: NONE HISTORY: Pain TECHNIQUE: 2 views FINDINGS: Metatarsals are intact. The toes appear intact. There is mild vascular calcification. IMPRESSION: No acute abnormality of the right foot. No fracture seen.
[2021-05-22] MEDS ORDERED: ONDANSETRON 4 MG/2 ML VIAL IVP PRN (21:34)
[2021-05-22] MEDS ORDERED: NALOXONE 0.4 MG/ML 1 ML VIAL IV PRN (21:34)
[2021-05-22] MEDS ORDERED: ACETAMINOPHEN TAB 325 MG TAB PO PRN (21:34)
[2021-05-23 03:14] LABS: Glucose,Whole Blood 157 mg/dL (75-99)
[2021-05-23] MEDS ORDERED: INSULIN REGULAR 100 UNIT/ML VIAL (IV) IV ONE (03:26)
[2021-05-23] MEDS ORDERED: DEXTROSE 50% SYRINGE 50 ML IVP STA (03:27)
[2021-05-23] MEDS ORDERED: SODIUM POLYSTYRENE SULFONATE 15 GM/60 ML BOTTLE PO STA (03:28)
[2021-05-23] MEDS ORDERED: CALCIUM GLUCONATE 1 GM in SODIUM CHLORIDE 0.9% 100 ML IVPB ONE (03:28)
[2021-05-23 04:05] LABS: HCT 37.8 % (34.0-46.0); HGB 11.9 gm/dL (11.4-16.0); Hypochromasia Moderate; MCH 28.8 pg (25.0-35.0); MCHC 31.5 g/dL (31.0-37.0); MCV 91.4 fL (80.0-100.0); Platelet Count 227 k/uL (150-450); RBC 4.13 m/uL (3.80-5.40); RDW 14.8 % (11.5-15.5); WBC 15.9 k/uL (3.8-10.6)
[2021-05-23 04:11] LABS: Lymphocytes # (M) 1.59 k/uL (1.0-4.8); Monocytes # (M) 0.64 k/uL (0-1.0); Neutrophils # (M) 13.67 k/uL (1.3-7.7); Neutrophils % (M) 86 %; Nucleated Red Blood Cells 0 /100 WBC (0-0); Total Cells Counted 100
[2021-05-23 04:28] LABS: Glucose 225 mg/dL (74-99)
[2021-05-23 04:29] LABS: Anion Gap 9 mmol/L; Carbon Dioxide 23 mmol/L (22-30); Chloride 102 mmol/L (98-107); Potassium 6.3 mmol/L (3.5-5.1); Sodium 134 mmol/L (137-145)
[2021-05-23 04:30] LABS: ALT 11 U/L (4-34); AST 19 U/L (14-36); African American GFR (CKD) 45 (>60 ml/min/1.73 sqM); Albumin 3.6 g/dL (3.5-5.0); Albumin/Globulin Ratio 1.2; Alkaline Phosphatase 93 U/L (38-126); Blood Urea Nitrogen 31 mg/dL (7-17); Calcium 8.8 mg/dL (8.4-10.2); Globulin 2.9 g/dL; Non-African American GFR(CKD) 39 (>60 ml/min/1.73 sqM); Total Bilirubin 0.5 mg/dL (0.2-1.3); Total Protein 6.5 g/dL (6.3-8.2)
[2021-05-23 07:19] LABS: Potassium 4.5 mmol/L (3.5-5.1)
[2021-05-23 07:19] LABS: Glucose,Whole Blood 112 mg/dL (75-99)
[2021-05-23] MEDS ORDERED: MONTELUKAST 10 MG TAB PO PRN (08:21)
[2021-05-23] MEDS ORDERED: LORATADINE 10 MG TAB PO PRN (08:21)
[2021-05-23] MEDS ORDERED: methocarbamoL 500 MG TAB PO PRN (08:21)
[2021-05-23] MEDS ORDERED: GLIMEPIRIDE 1 MG TAB PO PRN (08:21)
[2021-05-23 08:59] LABS: African American GFR (CKD) 57 (>60 ml/min/1.73 sqM); Anion Gap 6 mmol/L; Blood Urea Nitrogen 29 mg/dL (7-17); Calcium 8.7 mg/dL (8.4-10.2); Carbon Dioxide 22 mmol/L (22-30); Chloride 106 mmol/L (98-107); Glucose 115 mg/dL (74-99); Non-African American GFR(CKD) 50 (>60 ml/min/1.73 sqM); Sodium 134 mmol/L (137-145)
[2021-05-23] MEDS ORDERED: NON FORMULARY DRUG (Cetirizine Hcl [Zyrtec] 10 MG Tablet) PO SCH (09:00)
[2021-05-23 09:01] LABS: HCT 38.3 % (34.0-46.0); HGB 11.5 gm/dL (11.4-16.0); Hypochromasia Marked; MCH 27.9 pg (25.0-35.0); MCHC 29.9 g/dL (31.0-37.0); MCV 93.4 fL (80.0-100.0); Mean Platelet Volume 7.2; Platelet Count 184 k/uL (150-450); RDW 14.7 % (11.5-15.5); WBC 12.2 k/uL (3.8-10.6)
[2021-05-23] MEDS: allopurinoL 100 MG TAB PO SCH (09:24)
[2021-05-23] MEDS: lisinopriL 5 MG TAB PO SCH (09:24)
[2021-05-23] MEDS: ASPIRIN 81 MG PO SCH (09:24)
[2021-05-23] MEDS: METOPROLOL SUCCINATE (ER) 100 MG TAB.ER.24H PO SCH (09:24)
[2021-05-23] MEDS: ISOSORBIDE MONONITRATE ER 60 MG TAB.ER.24H PO SCH (09:24)
[2021-05-23] MEDS: ATORVASTATIN 40 MG TAB PO SCH (09:24)
[2021-05-23] MEDS: RIVAROXABAN 20 MG TAB PO SCH (09:25)
[2021-05-23] MEDS: SPIRONOLACTONE 25 MG TAB PO SCH (09:25)
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
[2021-05-23 11:52] LABS: Glucose,Whole Blood 169 mg/dL (75-99)
[2021-05-23] MEDS: GLIMEPIRIDE 1 MG TAB PO SCH (12:30)
[2021-05-23] MEDS: LEVOTHYROXINE 125 MCG TAB PO SCH (12:30)
[2021-05-23] MEDS: INSULIN ASPART (NovoLOG) 100 UNIT/ML VIAL SQ SCH ×3 (12:31→21:25)
--- NOTE | 2021-05-23 14:22 | XR ---
EXAMINATION TYPE: XR shoulder complete LT DATE OF EXAM: 05/23/2021 CLINICAL HISTORY: pain COMPARISON: NONE TECHNIQUE: Three views of the left shoulder are obtained. FINDINGS: There is no acute fracture/dislocation evident. The acromioclavicular and glenohumeral gissell int spaces appear moderately narrowed. The visualized ribs are intact and unremarkable. IMPRESSION: 1. There is no acute fracture or dislocation. ICD 10 NO FRACTURE, INITIAL EVALUATION
--- NOTE | 2021-05-23 16:19 | CT ---
EXAMINATION TYPE: CT Cerv Thor Lumbar spine wo/w DATE OF EXAM: 05/23/2021 INDICATION: Cervical, thoracic and lumbar pain, inability to walk. CT DLP: 4085.2 mGy.cm Automated Exposure Control for Dose Reduction was Utilized. TECHNIQUE AND CONTRAST: Multiplanar CT scan of the cervical, thoracic and lumbar spine is performed without and with IV Contr ast, patient injected with 80 mL of Isovue M300. COMPARISON: CT dated 08/28/2017 and 14 Aug 2016 FINDINGS: Cervical spine: Reversal of normal cervical curvature. Mild anterolisthesis of C3 over C4 and C4 over C5, possibly de generative. No definite vertebral body collapse or acute displaced fracture. Degenerative changes of the cervical spine with multilevel opposing endplate osteophytosis, degenerative discs and uncoverteb ral osteoarthropathy, most evident at C4-5, C5-6 and C6-7 levels. Multilevel facet osteoarthropathy is also noted most evident involving the right C3-4 facet. Mild lev oscoliosis of the mid cervical spine. Mild right C2-3, mild right C3-4, moderate bilateral C4-5, mode rate to severe right and moderate left C5-6, and severe left C6-7 neural foraminal stenosis is noted. Moderate to severe central spinal canal stenosis is also seen at C4-5 and C5-6 levels secondary to p osterior disc osteophyte complexes. Apparent elongated enhancement is seen within the spinal canal to the left side of the midline opposi te C5-6 level measuring 3 x 11 mm and extending for about 5 mm, nonspecific. This could be artifactua l however underlying spinal cord abnormality cannot be excluded. No other definite cervical spinal co rd enhancement identified. Medialization of the carotid arteries seen posterior to the oropharynx. Sc attered arterial atherosclerotic calcifications. Thoracic spine: Preserved dorsal kyphosis. No significant anterolisthesis or retrolisthesis. No definite vertebral kranthi dy collapse or acute displaced fracture. Degenerative changes of the thoracic spine with tiny multile sona opposing endplate osteophytosis. Rather maintained intervertebral disc spaces. Multilevel facet o steoarthropathy is also noted. No significant bony spinal canal stenosis or neuroforaminal stenosis. No definite abnormal enhancemen t identified in the thoracic spinal cord. Cardiomegaly, for correlation with echocardiographic result s. Coronary arterial calcifications. Dilated pulmonary trunk measuring up to 3.7 cm suggestive of pul monary hypertension. Lumbar spine: Significant artifact in the lumbar spine in the pre and postcontrast images. No definite vertebral kranthi dy collapse or acute displaced fracture. Tiny multilevel opposing endplate osteophytosis. Lumbar disc disease is suboptimally assessed by this CT scan. Severe bilateral L4-5 and right L5-S1 facet osteoa rthropathy. No significant bony central spinal canal stenosis or bony neuroforaminal stenosis. A spinal or neural foraminal stenosis due to soft tissue elements like disc herniation or ligamentum flavum hypertrophy cannot be excluded by this CT scan. Abnormal enhancement cannot be properly assess ed. Scattered arterial atherosclerotic calcifications. Tiny nonobstructing stone are seen in both kid neys. Right upper pole renal cyst without suspicious feature. Significant degenerative changes of the sacroiliac joints. IMPRESSION: 1. No gross lytic or sclerotic bone lesion. 2. The described elongated enhancement of the spinal cord opposite C5-6 level is likely artifactual a s described above. No other definite abnormal enhancement seen in the spinal cord. Please note that a spinal cord abnormality cannot be excluded by this CT scan. MRI is of the modality of choice to asse ss for spinal cord abnormality. 3. Degenerative changes of the cervical spine with multilevel DDD, central spinal canal stenosis and neuroforaminal stenosis as detailed above 4. Mild degenerative changes of the thoracic spine without significant spinal canal stenosis or neuro foraminal stenosis. No obvious abnormal enhancement in the thoracic spine 5. Markedly artifactual lumbar spine images as detailed above, lumbar disc disease, central spinal ca nal stenosis or neuroforaminal stenosis cannot be reliably ruled out by this CT scan. Incidental find ings as described above. Further MRI assessment of the area of interest can be considered if clinically required.
[2021-05-23 16:51] LABS: Glucose,Whole Blood 94 mg/dL (75-99)
[2021-05-23] MEDS: ACETAMINOPHEN TAB 500 MG TAB PO PRN (19:43)
[2021-05-23 20:02] VITALS: RESP 18
[2021-05-23 20:13] LABS: Glucose,Whole Blood 122 mg/dL (75-99)
[2021-05-24 01:47] LABS: Glucose,Whole Blood 111 mg/dL (75-99)
[2021-05-24 04:57] VITALS: TEMP 97.9
[2021-05-24 07:28] LABS: Glucose,Whole Blood 122 mg/dL (75-99)
[2021-05-24] MEDS ORDERED: PANTOPRAZOLE 40 MG TABLET PO SCH (07:30)
[2021-05-24] MEDS: INSULIN ASPART (NovoLOG) 100 UNIT/ML VIAL SQ SCH ×2 (07:34→12:47)
[2021-05-24] MEDS: RIVAROXABAN 20 MG TAB PO SCH (07:55)
[2021-05-24] MEDS: LEVOTHYROXINE 125 MCG TAB PO SCH (07:56)
[2021-05-24] MEDS: METOPROLOL SUCCINATE (ER) 100 MG TAB.ER.24H PO SCH (07:56)
[2021-05-24] MEDS: ASPIRIN 81 MG PO SCH (07:56)
[2021-05-24] MEDS: allopurinoL 100 MG TAB PO SCH (07:56)
[2021-05-24] MEDS: lisinopriL 5 MG TAB PO SCH (07:57)
[2021-05-24] MEDS: ATORVASTATIN 40 MG TAB PO SCH (07:57)
[2021-05-24] MEDS: SPIRONOLACTONE 25 MG TAB PO SCH (07:57)
[2021-05-24] MEDS: ISOSORBIDE MONONITRATE ER 60 MG TAB.ER.24H PO SCH (07:57)
[2021-05-24] MEDS: GLIMEPIRIDE 1 MG TAB PO SCH (07:57)
[2021-05-24] MEDS: ACETAMINOPHEN TAB 500 MG TAB PO PRN (07:57)
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
[2021-05-24 09:50] VITALS: BP 153/80; PULSE 74
--- NOTE | 2021-05-24 10:06 | P.CNOR ---
History of Present Illness - [facility] Consult date: 05/24/21 Consult reason: joint pain (Right foot and ankle pain, neck pain.) History of present illness: This is a 65-year-old female with history of multiple medical comorbidities including morbid obesity, pulmonary embolism on Xarelto, paroxysmal atrial fibrillation, non-ST elevated myocardial infarction, multivessel coronary artery disease, ischemic cardiomyopathy and chronic systolic heart failure, History of CVA, hypertension, hyperlipidemia, mild intermittent asthma, diabetes mellitus type 2, chronic kidney disease stage II. She states that she injured her foot and ankle earlier in the week. She states that she is unable to bear weight. She also has complained of neck and left shoulder pain. We are consulted for orthopedic evaluation. Past Medical History Past Medical History: Atrial Fibrillation, Asthma, Coronary Artery Disease (CAD), Heart Failure, CVA/TIA, Diabetes Mellitus, Deep Vein Thrombosis (DVT), Fibromyalgia, Hyperlipidemia, Hypertension, Myocardial Infarction (VT), Osteoarthritis (OA), Pulmonary Embolus (PE), Skin Disorder, Thyroid Disorder Additional Past Medical History / Comment(s): frequent uti's,kidney stones,HEART MURMUR,cardiomyopathy,CHRONIC CONSTIPATION, ECZEMA,SINUS HEADACHES, HX ANEMIA, gout. stage III kidney disease stage 3,lower back pain. 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.FEEt, weakness LT SIDE, ,stg three kidney disease,eye disorder fuchs corneal dystrophy. Last Myocardial Infarction Date:: UNKNOWN History of Any Multi-Drug Resistant Organisms: ESBL Year Discovered:: 02/28/18 MDRO Source:: ESBL URINE Past Surgical History: Appendectomy, Cardiac Ablation, Cholecystectomy, Heart Catheterization, Heart Catheterization With Stent, Hysterectomy Additional Past Surgical History / Comment(s): PARTIAL HYSTERECTOMY 03/18/14 @ [facility]. CATARACT BLACK. WITH IMPLANTS. HEART CATH X 3 TOTAL 3 STENTS, lithotripsy,kidney stents-since removed. Past Anesthesia/Blood Transfusion Reactions: Motion Sickness Additional Past Anesthesia/Blood Transfusion Reaction / Comm: no hx blood transfusion Date of Last Stent Placement:: UNKNOWN Past Psychological History: Depression Additional Psychological History / Comment(s): pt lives alone, until recently uses cane when up; receives houskeeping services and someone to help her shower from [employer], receives meals on wheels. Smoking Status: Former smoker Past Alcohol Use History: None Reported Additional Past Alcohol Use History / Comment(s): SMOKED AGE 15 TO AGE 21 -WHEN QUIT WAS SMOKING 1/2 PPD Past Drug Use History: None Reported - Past Family History Father Additional Family Medical History / Comment(s): "HARDENEING OF THE ARTERIES AT AGE 41. SMOKED AND DRANK ETOH Mother Family Medical History: Cancer Additional Family Medical History / Comment(s): "cyst that ruptured between bowel and bladder" Medications and Allergies Home Medications Medication Instructions Recorded Confirmed Type Isosorbide Mononitrate ER [Imdur] 60 mg PO DAILY 05/12/14 05/22/21 History Glimepiride [Amaryl] 2 mg PO AC-BRKFST 08/28/17 05/22/21 History Montelukast [Singulair] 10 mg PO DAILY PRN 08/28/17 05/22/21 History Allopurinol [Zyloprim] 100 mg PO DAILY 05/03/20 05/22/21 History Glimepiride [Amaryl] 1 mg PO HS PRN 05/03/20 05/22/21 History Metoprolol Succinate (ER) [Toprol 100 mg PO DAILY 05/03/20 05/22/21 History XL] Rivaroxaban [Xarelto] 20 mg PO DAILY 05/03/20 05/22/21 History Spironolactone [Aldactone] 25 mg PO DAILY 05/03/20 05/22/21 History Aspirin 81 mg PO DAILY chew 05/04/20 05/22/21 Rx lisinopriL [Zestril] 5 mg PO DAILY #30 tab 05/04/20 05/22/21 Rx Acetaminophen Tab [Tylenol] 1,000 mg PO Q6H PRN 05/22/21 05/22/21 History Levothyroxine Sodium [Synthroid] 125 mcg PO AC-BRKFST 05/22/21 05/22/21 History Loratadine [Claritin] 10 mg PO DAILY PRN 05/22/21 05/22/21 History Rosuvastatin [Crestor] 20 mg PO DAILY 05/22/21 05/22/21 History methocarbamoL [Robaxin] 500 mg PO Q4H PRN 05/22/21 05/22/21 History Allergies Allergy/AdvReac Type Severity Reaction Status Date / Time latex Allergy Rash/Hives Verified 05/22/21 22:01 Milk Containing Products AdvReac THRUSH Verified 05/22/21 22:01 [Dairy] Tetracyclines AdvReac YEAST Verified 05/22/21 22:01 INFECTION- PREFERS NOT TO TAKE ENVIRONMENTAL ALLERGIES Allergy SINUS Uncoded 05/03/20 08:55 SYMPTOMS-GRASS TREES,DUST,POLLENS,MOLD Physical Examination This is a 65-year-old female in no acute distress. She is alert and oriented 3. Exam of the head neck reveals limited range of motion of the neck. There is paraspinal tenderness with palpation. Exam of the upper extremities reveals limited range of motion of the left shoulder. She has forward flexion to about 100 and abduction to about 100. Full range of motion of the right shoulder. Neurovascular status the upper extremities is intact. There is some weakness with attendance clerk strength and finger extension against resistance on the left. Exam of the lower extremities there is lateral swelling to the right ankle. She has mild pain with range of motion of the ankle. There is point tenderness over the ligamentous structures of the lateral ankle. She has no tenderness medially. She is nontender over the metatarsals and midfoot. Neurovascular status to the lower extremities is intact. Results Cervical images reveal multilevel degenerative disc disease and degenerative arthritis. Foraminal stenosis noted. No acute fractures noted. X-rays of the foot reveal no acute fracture. Lateral ankle swelling noted on images. - Labs Labs: Abnormal Lab Results - Last 24 Hours (Table) 05/23/21 05/23/21 05/24/21 Range/Units 11:49 20:12 01:44 POC Glucose (mg/dL) 169 H 122 H 111 H (75-99) mg/dL 05/24/21 Range/Units 07:25 POC Glucose (mg/dL) 122 H (75-99) mg/dL H & H 05/23/21 05/23/21 Range/Units 00:10 06:52 Hgb 11.9 11.5 (11.4-16.0) gm/dL Hct 37.8 38.3 (34.0-46.0) % Result Diagrams: 05/23/21 06:52 05/23/21 06:52 Assessment and Plan (1) Debility Current Visit: Yes Status: Acute Code(s): R53.81 - OTHER MALAISE SNOMED Code(s): 15997234 (2) Physical deconditioning Current Visit: Yes Status: Acute Code(s): R53.81 - OTHER MALAISE SNOMED Code(s): 00988490913703 (3) Unspecified sprain of right foot, initial encounter Current Visit: Yes Status: Acute Code(s): S93.601A - UNSPECIFIED SPRAIN OF RIGHT FOOT, INITIAL ENCOUNTER SNOMED Code(s): 37782066 Plan: The clinical and x-ray findings are discussed with the patient and nursing staff. It is recommended she be in a boot on the right for mobilization and comfort. She may bear weight as tolerated in the boot. She does have significant cervical degenerative disc disease. It is recommended she follow-up with pain management for possible epidural steroid injections. For now, a prednisone taper may be of benefit to alleviate some of her discomfort. However, the patient is diabetic. I would defer to internal m edicine to manage a prednisone taper as an outpatient.
[2021-05-24 11:32] LABS: Glucose,Whole Blood 210 mg/dL (75-99)
== END 2021-05-24 15:45 | DRG 563 ==
LOC: EC 18:33 → 6NMEDSUR 21:34 → 5NMEDONC 22:23 → OBSVTOIN 05-23 13:49
PROVIDERS: ADMIT Internal Medicine; ATTEND Internal Medicine
DX: S93.601A Unspecified sprain of right foot, initial encounter (principal); N17.9 Acute kidney failure, unspecified; I13.0 Hypertensive heart and chronic kidney disease with heart failure and stage 1 through stage 4 chronic kidney disease, or unspecified chronic kidney disease; I50.22 Chronic systolic (congestive) heart failure; E87.5 Hyperkalemia; I48.0 Paroxysmal atrial fibrillation; I25.10 Atherosclerotic heart disease of native coronary artery without angina pectoris; I25.5 Ischemic cardiomyopathy; N18.2 Chronic kidney disease, stage 2 (mild); E66.01 Morbid (severe) obesity due to excess calories; J45.20 Mild intermittent asthma, uncomplicated; E03.9 Hypothyroidism, unspecified; E11.22 Type 2 diabetes mellitus with diabetic chronic kidney disease; E78.5 Hyperlipidemia, unspecified; F32.A Depression, unspecified; M17.10 Unilateral primary osteoarthritis, unspecified knee; M79.7 Fibromyalgia; R53.81 Other malaise; M48.02 Spinal stenosis, cervical region; M50.30 Other cervical disc degeneration, unspecified cervical region; Z90.49 Acquired absence of other specified parts of digestive tract; Z95.5 Presence of coronary angioplasty implant and graft; Z20.822 Contact with and (suspected) exposure to COVID-19; X50.1XXA Overexertion from prolonged static or awkward postures, initial encounter; Y92.009 Unspecified place in unspecified non-institutional (private) residence as the place of occurrence of the external cause; I25.2 Old myocardial infarction; Z79.01 Long term (current) use of anticoagulants; Z79.82 Long term (current) use of aspirin; Z79.84 Long term (current) use of oral hypoglycemic drugs; Z79.890 Hormone replacement therapy; Z79.899 Other long term (current) drug therapy; Z86.711 Personal history of pulmonary embolism; Z86.73 Personal history of transient ischemic attack (TIA), and cerebral infarction without residual deficits; Z87.440 Personal history of urinary (tract) infections; Z87.442 Personal history of urinary calculi; Z87.891 Personal history of nicotine dependence; Z90.711 Acquired absence of uterus with remaining cervical stump; Z91.81 History of falling; Z82.49 Family history of ischemic heart disease and other diseases of the circulatory system
CPT/HCPCS: 72127; 72130; 72133; 80048; 80053; 85025; 85027; 87635; 99285

== ENCOUNTER 2021-12-04 10:11 | Inpatient (IN) | payer MEDICARE ==
[2021-12-04 12:12] LABS: Anisocytosis Slight; Basophils # (A) 0.1 k/uL (0-0.2); Basophils % (A) 1 %; Eosinophils # (A) 0.1 k/uL (0-0.7); Eosinophils % (A) 2 %; HCT 37.1 % (34.0-46.0); HGB 11.3 gm/dL (11.4-16.0); Hypochromasia Slight; Lymphocytes # (A) 0.5 k/uL (1.0-4.8); Lymphocytes % (A) 10 %; MCH 26.1 pg (25.0-35.0); MCHC 30.4 g/dL (31.0-37.0); Mean Platelet Volume 7.6; Monocytes # (A) 0.5 k/uL (0-1.0); Monocytes % (A) 10 %; Neutrophils # (A) 3.9 k/uL (1.3-7.7); Neutrophils % (A) 75 %; Platelet Count 167 k/uL (150-450); RBC 4.31 m/uL (3.80-5.40); RDW 16.5 % (11.5-15.5); WBC 5.2 k/uL (3.8-10.6)
--- NOTE | 2021-12-04 12:29 | XR ---
EXAMINATION TYPE: XR chest 2V DATE OF EXAM: 12/04/2021 12:24 PM COMPARISON: Chest radiographs from 05/03/2020 TECHNIQUE: XR chest 2V Frontal and lateral views of the chest. CLINICAL INDICATION:Female, 65 years old with history of Weakness; FINDINGS: Lungs/Pleura: There is no evidence of pleural effusion, focal consolidation, or pneumothorax. Mild d iffuse interstitial prominence. Pulmonary vascularity: Unremarkable. Heart/mediastinum: Cardiomediastinal silhouette is enlarged and stable. Atherosclerotic calcificatio ns are seen in the aorta. Musculoskeletal: No acute osseous pathology. IMPRESSION: Stable moderate cardiomegaly and chronic changes. No acute process.
[2021-12-04 13:08] LABS: ALT 12 U/L (4-34); AST 24 U/L (14-36); African American GFR (CKD) 71 (>60 ml/min/1.73 sqM); Albumin 3.6 g/dL (3.5-5.0); Alkaline Phosphatase 89 U/L (38-126); Anion Gap 9 mmol/L; Blood Urea Nitrogen 18 mg/dL (7-17); Calcium 8.5 mg/dL (8.4-10.2); Carbon Dioxide 25 mmol/L (22-30); Chloride 101 mmol/L (98-107); Creatine Kinase 20 U/L (30-135); Glucose 108 mg/dL (74-99); Magnesium 1.6 mg/dL (1.6-2.3); Non-African American GFR(CKD) 62 (>60 ml/min/1.73 sqM); Potassium 5.1 mmol/L (3.5-5.1); Sodium 135 mmol/L (137-145); Total Bilirubin 0.2 mg/dL (0.2-1.3); Total Protein 6.3 g/dL (6.3-8.2)
[2021-12-04 13:36] LABS: Appearance,Urine Turbid (Clear); Bacteria,Urine Occasional /hpf; Bilirubin,Urine Negative (Negative); Blood,Urine Moderate (Negative); Color,Urine Yellow; Glucose,Urine (UA) Negative (Negative); Ketones,Urine Negative (Negative); Leukocyte Esterase,Urine Large (Negative); Nitrite,Urine Positive (Negative); Protein,Urine 1+ (Negative); RBC,Urine 22 /hpf (0-5); Specific Gravity,Urine 1.018 (1.001-1.035); Urobilinogen,Urine <2.0 mg/dL (<2.0); WBC,Urine >182 /hpf (0-5)
[2021-12-04] MEDS ORDERED: DEXAMETHASONE SOD PHOSPHATE 10 MG/ML 1 ML VIAL IVP STA (13:42)
[2021-12-04] MEDS ORDERED: ACETAMINOPHEN TAB 500 MG TAB PO STA (13:44)
[2021-12-04] MEDS ORDERED: NALOXONE 0.4 MG/ML 1 ML VIAL IV PRN (13:45)
--- NOTE | 2021-12-04 13:45 | ED ---
Weakness HPI - General Chief complaint: Weakness Stated complaint: weakness Time Seen by Provider: 12/04/21 10:15 Source: patient, EMS Mode of arrival: EMS - History of Present Illness Initial comments: 65-year-old female with past medical history of A. fib on xarelto, asthma, heart failure who presents to the emergency department with generalized weakness. States that she has felt generally weak for the past 2 days. She had a neighbor that came to her house who had a cold. The patient normally evaluates with a walker. States that she was so weak last night that she did not get out of her chair from 6 PM last night until 10 AM this morning when a neighbor came to [facility] her. EMS was called at that time. She does admit to a fever, nonproductive cough and shortness of breath. She denies chest pain. No worsening lower extremity edema. Admits nausea without vomiting. No diarrhea. No other alleviating, precipitating or modifying factors - Related Data Home Medications Medication Instructions Recorded Confirmed Montelukast [Singulair] 10 mg PO DAILY PRN 08/28/17 12/04/21 Metoprolol Succinate (ER) [Toprol 100 mg PO DAILY 05/03/20 12/04/21 XL] Rivaroxaban [Xarelto] 20 mg PO W/SUPPER 05/03/20 12/04/21 Spironolactone [Aldactone] 25 mg PO DAILY 05/03/20 12/04/21 Acetaminophen Tab [Tylenol] 1,000 mg PO Q6H PRN 05/22/21 12/04/21 Levothyroxine Sodium [Synthroid] 125 mcg PO AC-BRKFST 05/22/21 12/04/21 Loratadine [Claritin] 10 mg PO DAILY PRN 05/22/21 12/04/21 Rosuvastatin [Crestor] 20 mg PO HS 05/22/21 12/04/21 methocarbamoL [Robaxin] 500 mg PO Q4H PRN 05/22/21 12/04/21 Glimepiride [Amaryl] 2 mg PO AC-BRKFST 12/04/21 12/04/21 Isosorbide Mononitrate ER [Imdur] 30 mg PO DAILY 12/04/21 12/04/21 Nitroglycerin Sl Tabs [Nitrostat] 0.4 mg SL Q5M PRN 12/04/21 12/04/21 Previous Rx's Medication Instructions Recorded Aspirin 81 mg PO DAILY chew 05/04/20 lisinopriL [Zestril] 5 mg PO DAILY #30 tab 05/04/20 Albuterol Inhaler [Ventolin Hfa 2 puff INHALATION RT-TID each 12/07/21 Inhaler] Albuterol Inhaler [Ventolin Hfa 2 puff INHALATION RT-TID PRN each 12/07/21 Inhaler] Docusate [Colace] 100 mg PO BID cap 12/07/21 HYDROcodone/APAP 5-325MG [Sherman 1 each PO Q6HR PRN #6 tab 12/07/21 5-325] Tiotropium 2.5 Mcg/Puff [Spiriva 2 puff INHALATION RT-DAILY each 12/07/21 Respimat 2.5 Mcg] cefUROXime axetiL [Ceftin] 500 mg PO BID 7 Days #14 tab 12/07/21 Allergies Allergy/AdvReac Type Severity Reaction Status Date / Time grass pollen Allergy Sinus Verified 12/04/21 13:45 latex Allergy Rash/Hives Verified 12/04/21 13:45 mold Allergy Sinus Verified 12/04/21 13:45 pollen extracts Allergy Sinus Verified 12/04/21 13:45 tree and shrub pollen Allergy Sinus Verified 12/04/21 13:45 Milk Containing Products AdvReac THRUSH Verified 12/04/21 13:45 [Dairy] Tetracyclines AdvReac YEAST Verified 12/04/21 13:45 INFECTION- PREFERS NOT TO TAKE ENVIRONMENTAL ALLERGIES Allergy SINUS Uncoded 12/04/21 13:45 SYMPTOMS-GRASS TREES,DUST,POLLENS,MOLD Review of Systems ROS Statement: Those systems with pertinent positive or pertinent negative responses have been documented in the HPI. ROS Other: All systems not noted in ROS Statement are negative. Past Medical History Past Medical History: Atrial Fibrillation, Asthma, Coronary Artery Disease (CAD), Heart Failure, CVA/TIA, Diabetes Mellitus, Deep Vein Thrombosis (DVT), Fibromyalgia, Hyperlipidemia, Hypertension, Myocardial Infarction (HI), Osteoarthritis (OA), Pulmonary Embolus (PE), Skin Disorder, Thyroid Disorder Additional Past Medical History / Comment(s): frequent uti's,kidney stones,HEART MURMUR,cardiomyopathy,CHRONIC CONSTIPATION, ECZEMA,SINUS HEADACHES, HX ANEMIA, gout. stage III kidney disease stage 3,lower back pain. 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.FEEt, weakness LT SIDE, ,stg three kidney disease,eye disorder fuchs corneal dystrophy. Last Myocardial Infarction Date:: UNKNOWN History of Any Multi-Drug Resistant Organisms: ESBL Date of last positivie culture/infection: 02/28/18 MDRO Source:: ESBL URINE Past Surgical History: Appendectomy, Cardiac Ablation, Cholecystectomy, Heart Catheterization, Heart Catheterization With Stent, Hysterectomy Additional Past Surgical History / Comment(s): PARTIAL HYSTERECTOMY 03/18/14 @ [facility]. CATARACT BLACK. WITH IMPLANTS. HEART CATH X 3 TOTAL 3 STENTS, lithotripsy,kidney stents-since removed. Past Anesthesia/Blood Transfusion Reactions: Motion Sickness Additional Past Anesthesia/Blood Transfusion Reaction / Comment(s): no hx blood transfusion Date of Last Stent Placement:: UNKNOWN Past Psychological History: Depression Smoking Status: Former smoker Past Alcohol Use History: None Reported Past Drug Use History: None Reported - Past Family History Father Additional Family Medical History / Comment(s): "HARDENEING OF THE ARTERIES AT AGE 41. SMOKED AND DRANK ETOH Mother Family Medical History: Cancer Additional Family Medical History / Comment(s): "cyst that ruptured between bowel and bladder" General Exam General appearance: alert, in no apparent distress, obese Head exam: Present: atraumatic, normocephalic, normal inspection Eye exam: Present: normal appearance, PERRL, EOMI. Absent: scleral icterus, conjunctival injection, periorbital swelling ENT exam: Present: normal exam, mucous membranes moist Neck exam: Present: normal inspection. Absent: tenderness, meningismus, lymphadenopathy Respiratory exam: Present: normal lung sounds bilaterally. Absent: respiratory distress, wheezes, rales, rhonchi, stridor Cardiovascular Exam: Present: regular rate, normal rhythm, normal heart sounds. Absent: systolic murmur, diastolic murmur, rubs, gallop, clicks GI/Abdominal exam: Present: soft, normal bowel sounds. Absent: distended, tenderness, guarding, rebound, rigid Extremities exam: Present: normal inspection, full ROM, normal capillary refill. Absent: tenderness, pedal edema, joint swelling, calf tenderness Back exam: Present: normal inspection Neurological exam: Present: alert, oriented X3, CN II-XII intact Psychiatric exam: Present: normal affect, normal mood Skin exam: Present: warm, dry, intact, normal color. Absent: rash Course Vital Signs 12/04/21 12/04/21 12/04/21 10:13 13:02 18:00 Temperature 101.4 F H 100.0 F H 98.5 F Pulse Rate 89 75 Pulse Rate [ 66 Pulse Oximetery ] Respiratory 18 18 Rate Blood Pressure 109/59 106/69 Blood Pressure 114/72 [Right Arm] O2 Sat by Pulse 96 94 L 96 Oximetry 12/04/21 12/04/21 12/04/21 18:27 21:00 23:33 Temperature 99.8 F H 99.1 F Pulse Rate 72 82 75 Pulse Rate [ Pulse Oximetery ] Respiratory 18 16 18 Rate Blood Pressure 108/63 114/70 135/82 Blood Pressure [Right Arm] O2 Sat by Pulse 95 98 93 L Oximetry 12/05/21 12/05/21 12/05/21 06:37 08:00 14:20 Temperature 98 F 97.8 F Pulse Rate 80 88 754 H Pulse Rate [ Pulse Oximetery ] Respiratory 20 20 19 Rate Blood Pressure 118/78 114/67 90/51 Blood Pressure [Right Arm] O2 Sat by Pulse 100 96 95 Oximetry 12/05/21 15:37 Temperature Pulse Rate 58 L Pulse Rate [ Pulse Oximetery ] Respiratory 18 Rate Blood Pressure 97/54 Blood Pressure [Right Arm] O2 Sat by Pulse 96 Oximetry EKG Findings - EKG Comments: EKG Findings:: EKG demonstrates sinus rhythm with a rate of 79. CO of 192. QRS 90. QTC of 414. No acute ST segment elevations or depressions Medical Decision Making - Medical Decision Making Upon arrival patient was placed into room 20. A thorough history and physical exam was performed. IV access was established. Patient was started on gentle fluid hydration at 50 mL per hour and she does have history of congestive heart failure. Laboratory studies are conducted and reviewed. Patient does have nitrite positive urine. Covid is positive. Chest x-ray demonstrates stable moderate cardiomegaly and chronic changes. Patient informed of the results. As she is too weak and cares for herself she will be admitted. Spoke with Dr. Caballero who was agreeable to admission. Patient placed on Zosyn as she does have history of MDRO UTI. - Lab Data Result diagrams: 12/11/21 07:45 12/11/21 07:45 Lab Results 12/04/21 12/04/21 12/04/21 Range/Units 11:30 11:30 11:30 WBC 5.2 (3.8-10.6) k/uL RBC 4.31 (3.80-5.40) m/uL Hgb 11.3 L (11.4-16.0) gm/dL Hct 37.1 (34.0-46.0) % MCV 86.0 (80.0-100.0) fL MCH 26.1 (25.0-35.0) pg MCHC 30.4 L (31.0-37.0) g/dL RDW 16.5 H (11.5-15.5) % Plt Count 167 (150-450) k/uL MPV 7.6 Neutrophils % 75 % Lymphocytes % 10 % Monocytes % 10 % Eosinophils % 2 % Basophils % 1 % Neutrophils # 3.9 (1.3-7.7) k/uL Lymphocytes # 0.5 L (1.0-4.8) k/uL Monocytes # 0.5 (0-1.0) k/uL Eosinophils # 0.1 (0-0.7) k/uL Basophils # 0.1 (0-0.2) k/uL Hypochromasia Slight Anisocytosis Slight Sodium 135 L (137-145) mmol/L Potassium 5.1 (3.5-5.1) mmol/L Chloride 101 (98-107) mmol/L Carbon Dioxide 25 (22-30) mmol/L Anion Gap 9 mmol/L BUN 18 H (7-17) mg/dL Creatinine 0.96 (0.52-1.04) mg/dL Est GFR (CKD-EPI)AfAm 71 (>60 ml/min/1.73 sqM) Est GFR (CKD-EPI)NonAf 62 (>60 ml/min/1.73 sqM) Glucose 108 H (74-99) mg/dL Plasma Lactic Acid Dev 0.7 (0.7-2.0) mmol/L Calcium 8.5 (8.4-10.2) mg/dL Magnesium 1.6 (1.6-2.3) mg/dL Total Bilirubin 0.2 (0.2-1.3) mg/dL AST 24 (14-36) U/L ALT 12 (4-34) U/L Alkaline Phosphatase 89 (38-126) U/L Lactate Dehydrogenase (120-246) U/L Creatine Kinase 20 L (30-135) U/L Troponin I (0.000-0.034) ng/mL C-Reactive Protein (0.00-0.80) mg/dL NT-Pro-B Natriuret Pep pg/mL Total Protein 6.3 (6.3-8.2) g/dL Albumin 3.6 (3.5-5.0) g/dL Procalcitonin (0.02-0.09) ng/mL TSH 1.190 (0.465-4.680) mIU/L Urine Color Urine Appearance (Clear) Urine pH (5.0-8.0) Ur Specific [place] (1.001-1.035) Urine Protein (Negative) Urine Glucose (UA) (Negative) Urine Ketones (Negative) Urine Blood (Negative) Urine Nitrite (Negative) Urine Bilirubin (Negative) Urine Urobilinogen (<2.0) mg/dL Ur Leukocyte Esterase (Negative) Urine RBC (0-5) /hpf Urine WBC (0-5) /hpf Urine WBC Clumps (None) /hpf Urine Bacteria (None) /hpf Coronavirus (PCR) (Not Detectd) Influenza Type A RNA (Not Detectd) Influenza Type B (PCR) (Not Detectd) 12/04/21 12/04/21 12/04/21 Range/Units 11:30 11:30 11:30 WBC (3.8-10.6) k/uL RBC (3.80-5.40) m/uL Hgb (11.4-16.0) gm/dL Hct (34.0-46.0) % MCV (80.0-100.0) fL MCH (25.0-35.0) pg MCHC (31.0-37.0) g/dL RDW (11.5-15.5) % Plt Count (150-450) k/uL MPV Neutrophils % % Lymphocytes % % Monocytes % % Eosinophils % % Basophils % % Neutrophils # (1.3-7.7) k/uL Lymphocytes # (1.0-4.8) k/uL Monocytes # (0-1.0) k/uL Eosinophils # (0-0.7) k/uL Basophils # (0-0.2) k/uL Hypochromasia Anisocytosis Sodium (137-145) mmol/L Potassium (3.5-5.1) mmol/L Chloride (98-107) mmol/L Carbon Dioxide (22-30) mmol/L Anion Gap mmol/L BUN (7-17) mg/dL Creatinine (0.52-1.04) mg/dL Est GFR (CKD-EPI)AfAm (>60 ml/min/1.73 sqM) Est GFR (CKD-EPI)NonAf (>60 ml/min/1.73 sqM) Glucose (74-99) mg/dL Plasma Lactic Acid Dev (0.7-2.0) mmol/L Calcium (8.4-10.2) mg/dL Magnesium (1.6-2.3) mg/dL Total Bilirubin (0.2-1.3) mg/dL AST (14-36) U/L ALT (4-34) U/L Alkaline Phosphatase (38-126) U/L Lactate Dehydrogenase (120-246) U/L Creatine Kinase (30-135) U/L Troponin I <0.012 (0.000-0.034) ng/mL C-Reactive Protein (0.00-0.80) mg/dL NT-Pro-B Natriuret Pep 3280 pg/mL Total Protein (6.3-8.2) g/dL Albumin (3.5-5.0) g/dL Procalcitonin (0.02-0.09) ng/mL TSH (0.465-4.680) mIU/L Urine Color Yellow Urine Appearance Turbid H (Clear) Urine pH 6.0 (5.0-8.0) Ur Specific [place] 1.018 (1.001-1.035) Urine Protein 1+ H (Negative) Urine Glucose (UA) Negative (Negative) Urine Ketones Negative (Negative) Urine Blood Moderate H (Negative) Urine Nitrite Positive H (Negative) Urine Bilirubin Negative (Negative) Urine Urobilinogen <2.0 (<2.0) mg/dL Ur Leukocyte Esterase Large H (Negative) Urine RBC 22 H (0-5) /hpf Urine WBC >182 H (0-5) /hpf Urine WBC Clumps Many H (None) /hpf Urine Bacteria Occasional H (None) /hpf Coronavirus (PCR) (Not Detectd) Influenza Type A RNA (Not Detectd) Influenza Type B (PCR) (Not Detectd) 12/04/21 12/04/21 12/04/21 Range/Units 11:30 11:30 11:30 WBC (3.8-10.6) k/uL RBC (3.80-5.40) m/uL Hgb (11.4-16.0) gm/dL Hct (34.0-46.0) % MCV (80.0-100.0) fL MCH (25.0-35.0) pg MCHC (31.0-37.0) g/dL RDW (11.5-15.5) % Plt Count (150-450) k/uL MPV Neutrophils % % Lymphocytes % % Monocytes % % Eosinophils % % Basophils % % Neutrophils # (1.3-7.7) k/uL Lymphocytes # (1.0-4.8) k/uL Monocytes # (0-1.0) k/uL Eosinophils # (0-0.7) k/uL Basophils # (0-0.2) k/uL Hypochromasia Anisocytosis Sodium (137-145) mmol/L Potassium (3.5-5.1) mmol/L Chloride (98-107) mmol/L Carbon Dioxide (22-30) mmol/L Anion Gap mmol/L BUN (7-17) mg/dL Creatinine (0.52-1.04) mg/dL Est GFR (CKD-EPI)AfAm (>60 ml/min/1.73 sqM) Est GFR (CKD-EPI)NonAf (>60 ml/min/1.73 sqM) Glucose (74-99) mg/dL Plasma Lactic Acid Dev (0.7-2.0) mmol/L Calcium (8.4-10.2) mg/dL Magnesium (1.6-2.3) mg/dL Total Bilirubin (0.2-1.3) mg/dL AST (14-36) U/L ALT (4-34) U/L Alkaline Phosphatase (38-126) U/L Lactate Dehydrogenase 162 (120-246) U/L Creatine Kinase (30-135) U/L Troponin I (0.000-0.034) ng/mL C-Reactive Protein 2.30 H (0.00-0.80) mg/dL NT-Pro-B Natriuret Pep pg/mL Total Protein (6.3-8.2) g/dL Albumin (3.5-5.0) g/dL Procalcitonin (0.02-0.09) ng/mL TSH (0.465-4.680) mIU/L Urine Color Urine Appearance (Clear) Urine pH (5.0-8.0) Ur Specific [place] (1.001-1.035) Urine Protein (Negative) Urine Glucose (UA) (Negative) Urine Ketones (Negative) Urine Blood (Negative) Urine Nitrite (Negative) Urine Bilirubin (Negative) Urine Urobilinogen (<2.0) mg/dL Ur Leukocyte Esterase (Negative) Urine RBC (0-5) /hpf Urine WBC (0-5) /hpf Urine WBC Clumps (None) /hpf Urine Bacteria (None) /hpf Coronavirus (PCR) Detected A (Not Detectd) Influenza Type A RNA Not Detected (Not Detectd) Influenza Type B (PCR) Not Detected (Not Detectd) 12/04/21 Range/Units 11:30 WBC (3.8-10.6) k/uL RBC (3.80-5.40) m/uL Hgb (11.4-16.0) gm/dL Hct (34.0-46.0) % MCV (80.0-100.0) fL MCH (25.0-35.0) pg MCHC (31.0-37.0) g/dL RDW (11.5-15.5) % Plt Count (150-450) k/uL MPV Neutrophils % % Lymphocytes % % Monocytes % % Eosinophils % % Basophils % % Neutrophils # (1.3-7.7) k/uL Lymphocytes # (1.0-4.8) k/uL Monocytes # (0-1.0) k/uL Eosinophils # (0-0.7) k/uL Basophils # (0-0.2) k/uL Hypochromasia Anisocytosis Sodium (137-145) mmol/L Potassium (3.5-5.1) mmol/L Chloride (98-107) mmol/L Carbon Dioxide (22-30) mmol/L Anion Gap mmol/L BUN (7-17) mg/dL Creatinine (0.52-1.04) mg/dL Est GFR (CKD-EPI)AfAm (>60 ml/min/1.73 sqM) Est GFR (CKD-EPI)NonAf (>60 ml/min/1.73 sqM) Glucose (74-99) mg/dL Plasma Lactic Acid Dev (0.7-2.0) mmol/L Calcium (8.4-10.2) mg/dL Magnesium (1.6-2.3) mg/dL Total Bilirubin (0.2-1.3) mg/dL AST (14-36) U/L ALT (4-34) U/L Alkaline Phosphatase (38-126) U/L Lactate Dehydrogenase (120-246) U/L Creatine Kinase (30-135) U/L Troponin I (0.000-0.034) ng/mL C-Reactive Protein (0.00-0.80) mg/dL NT-Pro-B Natriuret Pep pg/mL Total Protein (6.3-8.2) g/dL Albumin (3.5-5.0) g/dL Procalcitonin 0.05 (0.02-0.09) ng/mL TSH (0.465-4.680) mIU/L Urine Color Urine Appearance (Clear) Urine pH (5.0-8.0) Ur Specific [place] (1.001-1.035) Urine Protein (Negative) Urine Glucose (UA) (Negative) Urine Ketones (Negative) Urine Blood (Negative) Urine Nitrite (Negative) Urine Bilirubin (Negative) Urine Urobilinogen (<2.0) mg/dL Ur Leukocyte Esterase (Negative) Urine RBC (0-5) /hpf Urine WBC (0-5) /hpf Urine WBC Clumps (None) /hpf Urine Bacteria (None) /hpf Coronavirus (PCR) (Not Detectd) Influenza Type A RNA (Not Detectd) Influenza Type B (PCR) (Not Detectd) Disposition Clinical Impression: UTI (urinary tract infection), COVID-19, Weakness Disposition: ADMITTED IP TO THIS [facility] Condition: Stable Is patient prescribed a controlled substance at d/c from ED?: No Time of Disposition: 13:45 Decision to Admit Reason: Admit from EC Decision Date: 12/04/21 Decision Time: 13:45
[2021-12-04] MEDS: SODIUM CHLORIDE 0.9% 1,000 ML IV SCH (14:35)
[2021-12-04 14:48] LABS: Partial Thromboplastin Time 23.2 sec (22.0-30.0)
[2021-12-04] MEDS ORDERED: ALBUTEROL HFA INHALER INHALATION PRN (15:00)
[2021-12-04] MEDS ORDERED: PIPERACILLIN-TAZOBACTAM 3.375 GM in SODIUM CHLORIDE 0.9% 100 ML IVPB SCH (16:00)
--- NOTE | 2021-12-04 17:02 | P.CNPUL ---
History of Present Illness Consult date: 12/04/21 Reason for consult: cough History of present illness: 65-year-old female patient with multiple medical problems and comorbidities who came into the emergency department because of generalized weakness. The patient has been feeling weak for the past few days and she has a neighbor that came in to the house and found her and debilitated condition and having difficulty with mobility. The patient normally moves around with help of a walker. She was very weak and she was unable to get out of her bed and for that reason EMS was called to the scene and the patient was brought into the hospital. The patient admitted to have episodes of fever and some scratchiness in the throat and some limited cough. No sinus shortness of breath. No chest pain. No pigmentation. She has chronically his lower extremities and difficulty with mobility and gait. No worsening in lower extremity edema.. No nausea vomiting or diarrhea or abdominal pain. In the emergency department, the patient was evaluated. The patient was found to be febrile with a temperature was 101.4. She was hemodynamically stable and she was not hypotensive.. The patient and indicated that showed a normal sinus rhythm. The white cell count was at 5.2 with hemoglobin 11.3 and a platelet count of 167. Electrodes are all within normal limits. His sodium level was at 135 with a potassium level of 5.1 and a glucose level of 108. The patient had a TSH of 1.1. Albumin with a 3.6 with a total protein of 6.3. Lactic acid level was at 0.7. The patient had a proBNP level of 3280 and a troponin level of less than 0.01. UA was abnormal with multiple white cells and clumps of white cells and the white cell count was 182 and the urine was turbid with +1 protein. The patient also tested positive for COVID 19. Influenza screen was negative. The chest x-ray was essentially unchanged compared to her previous chest x-ray findings and the patient's pulse ox was 96% on room air oxygen. He was hospitalized for underlying UTI and COVID 19 infection intermittently generalized weakness. The patient was started on IV Zosyn. 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 This was a sprain. She was released to the correction following that as the patient w as unable to bear weight due to pain. She gradually rehabilitated herself. She has paroxysmal atrial fibrillation. She has coronary artery disease multivessel and she is known to have previous non-ST segment elevation myocardial infarction. She has chronic systolic heart failure, previous history of CVA, hypertension, hyperlipidemia, intermittent bronchial asthma, diabetes mellitus type 2, hypothyroidism and stage II chronic kidney disease. She also has an ejection fraction of 40-45% with mild concentric LVH. She has had previous episodes of urinary current urinary tract infection with gram-negative bacteria. With Review of Systems Constitutional: Reports chronic pain, Reports fatigue, Reports lethargy, Reports poor appetite, Reports weakness Eyes: denies as per HPI, denies blurred vision, denies bulging eye, denies decreased vision, denies diplopia, denies discharge, denies dry eye, denies irritation, denies itching, denies pain, denies photophobia, denies loss of peripheral vision, denies loss of vision, denies tunnel vision/blind spots Ears: deny: decreased hearing, ear discharge, earache, tinnitus Ears, nose, mouth and throat: Reports as per HPI, Reports sore throat Breasts: absent: as per HPI, change in shape, gynecomastia, masses, nipple discharge, pain, skin changes, swelling Breasts: Reports as per HPI Cardiovascular: Reports decreased exercise tolerance, Reports dyspnea on exertion, Reports shortness of breath Respiratory: Reports cough Gastrointestinal: Reports as per HPI Genitourinary: Reports as per HPI Menstruation: Reports as per HPI Musculoskeletal: Reports as per HPI, Reports muscle weakness Musculoskeletal: absent: ankle pain, ankle stiffness, ankle swelling, as per HPI, elbow pain, elbow stiffness, elbow swelling, foot pain, foot stiffness, foot swelling, hand pain, hand stiffness, hand swelling, hip pain, hip stiffness, hip swelling, knee pain, knee stiffness, knee swelling, shoulder pain, shoulder stiffness, shoulder swelling, wrist pain, wrist stiffness, wrist swelling Integumentary: Reports as per HPI Neurological: Reports as per HPI, Reports weakness Psychiatric: Reports as per HPI Endocrine: Reports as per HPI, Reports fatigue Hematologic/Lymphatic: Reports as per HPI Allergic/Immunologic: Reports as per HPI Past Medical History Past Medical History: Atrial Fibrillation, Asthma, Coronary Artery Disease (CAD), Heart Failure, CVA/TIA, Diabetes Mellitus, Deep Vein Thrombosis (DVT), Fibromyalgia, Hyperlipidemia, Hypertension, Myocardial Infarction ([place]), Osteoarthritis (OA), Pulmonary Embolus (PE), Skin Disorder, Thyroid Disorder Additional Past Medical History / Comment(s): Obesity with a BMI of 48.4, multivessel coronary artery disease, previous non-ST segment elevation myocardial infarction, cardiomyopathy with impaired ejection fraction of around 40-45%, chronic stage III kidney disease, diabetes mellitus type 2, mild intermittent bronchial asthma, hypertension, hyperlipidemia, chronic stage III kidney disease, peripheral neuropathy, chronic back pain, eczema, sinus headaches, chronic anemia, frequent UTIs, kidney stones, chronic constipation, hypertension, hyperlipidemia, previous history of CVA, diabetes mellitus type 2 Last Myocardial Infarction Date:: UNKNOWN History of Any Multi-Drug Resistant Organisms: ESBL Date of last positivie culture/infection: 02/28/18 MDRO Source:: ESBL URINE Past Surgical History: Appendectomy, Cardiac Ablation, Cholecystectomy, Heart Catheterization, Heart Catheterization With Stent, Hysterectomy Additional Past Surgical History / Comment(s): PARTIAL HYSTERECTOMY 03/18/14 @ [facility]. CATARACT BLACK. WITH IMPLANTS. HEART CATH X 3 TOTAL 3 STENTS, lithotripsy,kidney stents-since removed. Past Anesthesia/Blood Transfusion Reactions: Motion Sickness Additional Past Anesthesia/Blood Transfusion Reaction / Comment(s): no hx blood transfusion Date of Last Stent Placement:: UNKNOWN Past Psychological History: Depression Smoking Status: Former smoker Past Alcohol Use History: None Reported Past Drug Use History: None Reported - Past Family History Father Additional Family Medical History / Comment(s): "HARDENEING OF THE ARTERIES AT AGE 41. SMOKED AND DRANK ETOH Mother Family Medical History: Cancer Additional Family Medical History / Comment(s): "cyst that ruptured between bowel and bladder" Medications and Allergies Home Medications Medication Instructions Recorded Confirmed Type Montelukast [Singulair] 10 mg PO DAILY PRN 08/28/17 12/04/21 History Metoprolol Succinate (ER) [Toprol 100 mg PO DAILY 05/03/20 12/04/21 History XL] Rivaroxaban [Xarelto] 20 mg PO W/SUPPER 05/03/20 12/04/21 History Spironolactone [Aldactone] 25 mg PO DAILY 05/03/20 12/04/21 History Aspirin 81 mg PO DAILY chew 05/04/20 12/04/21 Rx lisinopriL [Zestril] 5 mg PO DAILY #30 tab 05/04/20 12/04/21 Rx Acetaminophen Tab [Tylenol] 1,000 mg PO Q6H PRN 05/22/21 12/04/21 History Levothyroxine Sodium [Synthroid] 125 mcg PO AC-BRKFST 05/22/21 12/04/21 History Loratadine [Claritin] 10 mg PO DAILY PRN 05/22/21 12/04/21 History Rosuvastatin [Crestor] 20 mg PO HS 05/22/21 12/04/21 History methocarbamoL [Robaxin] 500 mg PO Q4H PRN 05/22/21 12/04/21 History Glimepiride [Amaryl] 2 mg PO AC-BRKFST 12/04/21 12/04/21 History Isosorbide Mononitrate ER [Imdur] 30 mg PO DAILY 12/04/21 12/04/21 History Nitroglycerin Sl Tabs [Nitrostat] 0.4 mg SL Q5M PRN 12/04/21 12/04/21 History Allergies Allergy/AdvReac Type Severity Reaction Status Date / Time grass pollen Allergy Sinus Verified 12/04/21 13:45 latex Allergy Rash/Hives Verified 12/04/21 13:45 mold Allergy Sinus Verified 12/04/21 13:45 pollen extracts Allergy Sinus Verified 12/04/21 13:45 tree and shrub pollen Allergy Sinus Verified 12/04/21 13:45 Milk Containing Products AdvReac THRUSH Verified 12/04/21 13:45 [Dairy] Tetracyclines AdvReac YEAST Verified 12/04/21 13:45 INFECTION- PREFERS NOT TO TAKE ENVIRONMENTAL ALLERGIES Allergy SINUS Uncoded 12/04/21 13:45 SYMPTOMS-GRASS TREES,DUST,POLLENS,MOLD Physical Exam Vitals: Vital Signs Temp Pulse Resp BP Pulse Ox 12/04/21 13:02 100.0 F H 75 18 106/69 94 L 12/04/21 10:13 101.4 F H 89 18 109/59 96 Intake and Output 12/04/21 12/04/21 12/04/21 06:59 14:59 22:59 Other: Weight 120.066 kg Gen: This is a morbidly obese 65-year-old female. Patient is resting in bed and appears to be comfortable and in no acute distress. The patient is currently on room air oxygen Head exam was generally normal. There was no scleral icterus or corneal arcus. Mucous membranes were moist. HEENT: Head is atraumatic, normocephalic. Pupils equal, round. Sclerae is anicteric. NECK: Supple. No JVD. No lymphadenopathy. No thyromegaly. LUNGS: Clear to auscultation. No wheezes or rhonchi. No intercostal retractions. HEART: Regular rate and rhythm. No murmur. ABDOMEN: Soft. Bowel sounds are present. No masses. No tenderness. EXTREMITIES: No pedal edema. No calf tenderness. There is +1 pitting edema lower extremities bilaterally NEUROLOGICAL: Patient is awake, alert and oriented x3. Cranial nerves 2 through 12 are grossly intact. Examination of the skin revealed no evidence of significant rashes, suspicious appearing nevi or other concerning lesions. Results - Laboratory Findings CBC and BMP: 12/04/21 11:30 12/04/21 11:30 PT/INR, D-dimer PT 11.0 sec (9.0-12.0) 12/04/21 14:04 INR 1.0 (<1.2) 12/04/21 14:04 Abnormal lab findings: Abnormal Labs 12/04/21 12/04/21 12/04/21 11:30 11:30 11:30 Hgb 11.3 L MCHC 30.4 L RDW 16.5 H Lymphocytes # 0.5 L Sodium 135 L BUN 18 H Glucose 108 H Creatine Kinase 20 L Urine Appearance Turbid H Urine Protein 1+ H Urine Blood Moderate H Urine Nitrite Positive H Ur Leukocyte Esterase Large H Urine RBC 22 H Urine WBC >182 H Urine WBC Clumps Many H Urine Bacteria Occasional H Coronavirus (PCR) 12/04/21 11:30 Hgb MCHC RDW Lymphocytes # Sodium BUN Glucose Creatine Kinase Urine Appearance Urine Protein Urine Blood Urine Nitrite Ur Leukocyte Esterase Urine RBC Urine WBC Urine WBC Clumps Urine Bacteria Coronavirus (PCR) Detected A - Diagnostic Findings Chest x-ray: image reviewed Assessment and Plan Plan: Acute COVID 19 infection without indication for pneumonia. No signs of metastatic distress or hypoxemia. The patient is not vaccinated. There is a first episode of infection with COVID 19. Acute UTI, likely gram-negative bacteria as the patient had frequent UTIs in the past Acute febrile illness secondary to above Generalized weakness secondary to above Recent history of fall and ankle sprain involving the right foot Known history of ischemic cardiomyopathy with systolic heart failure with an ejection fraction of 40-45% Known history of multivessel severe coronary artery disease Paroxysmal atrial fibrillation Previous history of severe anemia secondary to GI blood losses., chronic kidney disease stage II, sees nephrology on a regular basis. history of nephrolithiasis, lithotripsy, and ureteral stent placement. history of paroxysmal atrial fibrillation. Previous ablation. history of hypertension history of hypothyroidism on replacement therapy history of mild intermittent asthma presently inactive history of type 2 diabetes history of dyslipidemia. history of pulmonary embolism. Diabetic peripheral neuropathy Medical debility seconds above-mentioned comorbidities Plan Patient is on room air oxygen Monitor respiratory status Check inflammatory markers regarding COVID 19 Continue to coagulation with Xarelto Treated UTI with Zosyn for now pending further cultures Resume all medications Monitor respiratory status We'll continue to follow
[2021-12-04] MEDS: RIVAROXABAN 20 MG TAB PO SCH (19:02)
[2021-12-04] MEDS: ALBUTEROL HFA INHALER INHALATION SCH (21:01)
[2021-12-04] MEDS: ATORVASTATIN 40 MG TAB PO SCH (21:18)
[2021-12-04] MEDS: ACETAMINOPHEN TAB 325 MG TAB PO PRN (21:19)
--- NOTE | 2021-12-04 21:21 | P.CONS ---
History of Present Illness - Reason for Consult Consult date: 12/04/21 covid, weakness Requesting physician: Yoselin Caballero - Chief Complaint Weakness x few days - History of Present Illness Patient is a 65-year-old female with multiple comorbidities was brought into the hospital for evaluation of generalized weakness patient mention that she was so weak and unable to get out of her chair over the last 3 days till EMS get her out of the house this morning the patient denies any headache she has been complaining of some scratchiness of the throat and did have a cough which has been mild in intensity and dry in nature not bring up any sputum patient denies having any nausea no vomiting no abdominal pain no diarrhea did have some burning of urine however the patient mention the seem to be chronic for her patient on presentation to the hospital did have a fever of 101.4 F patient was not hypoxic with O2 sats of 96% on room air patient did have a normal white count of 5.2 with some lymphopenia D-dimer was normal creatinine wa s normal her liver enzymes are normal patient did have a positive UA with large leukocyte esterase more than 22 WBC patient did have positive COVID test influenza PCR was negative patient did have a chest x-ray that was stable cardiomegaly chronic changes no acute process patient has been admitted to the hospital infectious disease was consulted regarding COVID and weakness and need for antibiotic therapy Review of Systems Positive point has been mentioned in the HPI rest of the systems are negative Past Medical History Past Medical History: Atrial Fibrillation, Asthma, Coronary Artery Disease (CAD), Heart Failure, CVA/TIA, Diabetes Mellitus, Deep Vein Thrombosis (DVT), Fibromyalgia, Hyperlipidemia, Hypertension, Myocardial Infarction ([place]), Osteoarthritis (OA), Pulmonary Embolus (PE), Skin Disorder, Thyroid Disorder Additional Past Medical History / Comment(s): Obesity with a BMI of 48.4, mul tivessel coronary artery disease, previous non-ST segment elevation myocardial infarction, cardiomyopathy with impaired ejection fraction of around 40-45%, chronic stage III kidney disease, diabetes mellitus type 2, mild intermittent bronchial asthma, hypertension, hyperlipidemia, chronic stage III kidney disease, peripheral neuropathy, chronic back pain, eczema, sinus headaches, chronic anemia, frequent UTIs, kidney stones, chronic constipation, hypertension, hyperlipidemia, previous history of CVA, diabetes mellitus type 2 Last Myocardial Infarction Date:: UNKNOWN History of Any Multi-Drug Resistant Organisms: ESBL Year Discovered:: 02/28/18 MDRO Source:: ESBL URINE Past Surgical History: Appendectomy, Cardiac Ablation, Cholecystectomy, Heart Catheterization, Heart Catheterization With Stent, Hysterectomy Additional Past Surgical History / Comment(s): PARTIAL HYSTERECTOMY 03/18/14 @ [facility]. CATARACT BLACK. WITH IMPLANTS. HEART CATH X 3 TOTAL 3 STENTS, lithotripsy,kidney stents-since removed. Past Anesthesia/Blood Transfusion Reactions: Motion Sickness Additional Past Anesthesia/Blood Transfusion Reaction / Comm: no hx blood transfusion Date of Last Stent Placement:: UNKNOWN Past Psychological History: Depression Smoking Status: Former smoker Past Alcohol Use History: None Reported Past Drug Use History: None Reported - Past Family History Father Additional Family Medical History / Comment(s): "HARDENEING OF THE ARTERIES AT AGE 41. SMOKED AND DRANK ETOH Mother Family Medical History: Cancer Additional Family Medical History / Comment(s): "cyst that ruptured between bowel and bladder" Medications and Allergies Home Medications Medication Instructions Recorded Confirmed Type Montelukast [Singulair] 10 mg PO DAILY PRN 08/28/17 12/04/21 History Metoprolol Succinate (ER) [Toprol 100 mg PO DAILY 05/03/20 12/04/21 History XL] Rivaroxaban [Xarelto] 20 mg PO W/SUPPER 05/03/20 12/04/21 History Spironolactone [Aldactone] 25 mg PO DAILY 05/03/20 12/04/21 History Aspirin 81 mg PO DAILY chew 05/04/20 12/04/21 Rx lisinopriL [Zestril] 5 mg PO DAILY #30 tab 05/04/20 12/04/21 Rx Acetaminophen Tab [Tylenol] 1,000 mg PO Q6H PRN 05/22/21 12/04/21 History Levothyroxine Sodium [Synthroid] 125 mcg PO AC-BRKFST 05/22/21 12/04/21 History Loratadine [Claritin] 10 mg PO DAILY PRN 05/22/21 12/04/21 History Rosuvastatin [Crestor] 20 mg PO HS 05/22/21 12/04/21 History methocarbamoL [Robaxin] 500 mg PO Q4H PRN 05/22/21 12/04/21 History Glimepiride [Amaryl] 2 mg PO AC-BRKFST 12/04/21 12/04/21 History Isosorbide Mononitrate ER [Imdur] 30 mg PO DAILY 12/04/21 12/04/21 History Nitroglycerin Sl Tabs [Nitrostat] 0.4 mg SL Q5M PRN 12/04/21 12/04/21 History Albuterol Inhaler [Ventolin Hfa 2 puff INHALATION RT-TID each 12/07/21 Rx Inhaler] Albuterol Inhaler [Ventolin Hfa 2 puff INHALATION RT-TID PRN each 12/07/21 Rx Inhaler] Docusate [Colace] 100 mg PO BID cap 12/07/21 Rx HYDROcodone/APAP 5-325MG [[facility] 1 each PO Q6HR PRN #6 tab 12/07/21 Rx 5-325] Tiotropium 2.5 Mcg/Puff [Spiriva 2 puff INHALATION RT-DAILY each 12/07/21 Rx Respimat 2.5 Mcg] cefUROXime axetiL [Ceftin] 500 mg PO BID 7 Days #14 tab 12/07/21 Rx Allergies Allergy/AdvReac Type Severity Reaction Status Date / Time grass pollen Allergy Sinus Verified 12/04/21 13:45 latex Allergy Rash/Hives Verified 12/04/21 13:45 mold Allergy Sinus Verified 12/04/21 13:45 pollen extracts Allergy Sinus Verified 12/04/21 13:45 tree and shrub pollen Allergy Sinus Verified 12/04/21 13:45 Milk Containing Products AdvReac THRUSH Verified 12/04/21 13:45 [Dairy] Tetracyclines AdvReac YEAST Verified 12/04/21 13:45 INFECTION- PREFERS NOT TO TAKE ENVIRONMENTAL ALLERGIES Allergy SINUS Uncoded 12/04/21 13:45 SYMPTOMS-GRASS TREES,DUST,POLLENS,MOLD Physical Exam Vitals: Vital Signs Temp Pulse Resp BP Pulse Ox 12/04/21 13:02 100.0 F H 75 18 106/69 94 L 12/04/21 10:13 101.4 F H 89 18 109/59 96 Intake and Output 12/04/21 12/04/21 12/04/21 06:59 14:59 22:59 Other: Weight 120.066 kg GENERAL DESCRIPTION: Elderly female lying in bed, no distress. No tachypnea or a ccessory muscle of respiration use. HEENT: Shows Pallor , no scleral icterus. Oral mucous membrane is dry. No pharyngeal erythema or thrush NECK: Trachea central, no thyromegaly. LUNGS: Unlabored breathing. Decreased intensity of breath sounds. No wheeze or crackle. HEART: S1, S2, regular rate and rhythm. No loud murmur ABDOMEN: Soft, no tenderness , guarding or rigidity, no organomegaly EXTREMITIES: No edema of feet. SKIN: No rash, no masses palpable. NEUROLOGICAL: The patient is awake, alert, oriented x3, mood and affect normal. Results CBC & Chem 7: 12/06/21 07:06 12/06/21 07:06 Labs: Abnormal Lab Results - Last 24 Hours (Table) 12/04/21 12/04/21 12/04/21 Range/Units 11:30 11:30 11:30 Hgb 11.3 L (11.4-16.0) gm/dL MCHC 30.4 L (31.0-37.0) g/dL RDW 16.5 H (11.5-15.5) % Lymphocytes # 0.5 L (1.0-4.8) k/uL Sodium 135 L (137-145) mmol/L BUN 18 H (7-17) mg/dL Glucose 108 H (74-99) mg/dL Creatine Kinase 20 L (30-135) U/L Urine Appearance Turbid H (Clear) Urine Protein 1+ H (Negative) Urine Blood Moderate H (Negative) Urine Nitrite Positive H (Negative) Ur Leukocyte Esterase Large H (Negative) Urine RBC 22 H (0-5) /hpf Urine WBC >182 H (0-5) /hpf Urine WBC Clumps Many H (None) /hpf Urine Bacteria Occasional H (None) /hpf Coronavirus (PCR) (Not Detectd) 12/04/21 Range/Units 11:30 Hgb (11.4-16.0) gm/dL MCHC (31.0-37.0) g/dL RDW (11.5-15.5) % Lymphocytes # (1.0-4.8) k/uL Sodium (137-145) mmol/L BUN (7-17) mg/dL Glucose (74-99) mg/dL Creatine Kinase (30-135) U/L Urine Appearance (Clear) Urine Protein (Negative) Urine Blood (Negative) Urine Nitrite (Negative) Ur Leukocyte Esterase (Negative) Urine RBC (0-5) /hpf Urine WBC (0-5) /hpf Urine WBC Clumps (None) /hpf Urine Bacteria (None) /hpf Coronavirus (PCR) Detected A (Not Detectd) Assessment and Plan (1) COVID-19 Current Visit: Yes Status: Acute Code(s): U07.1 - COVID-19 SNOMED Code(s): 202079387 (2) UTI (urinary tract infection) Current Visit: Yes Status: Acute Code(s): N39.0 - URINARY TRACT INFECTION, SITE NOT SPECIFIED SNOMED Code(s): 01640208 Plan: 1patient presented to hospital with generalized weakness she is likely multifactorial and could be related to the COVID-19 infection as the patient not vaccinated for COVID-19 however the patient currently not hypoxic and the chest x-ray was negative for acute infiltrate treatment will be mostly supportive, patient did have a positive UA and some burning of urine likely symptomatic UTI from enteric gram-negative pathogen. 2antibiotic usage due to cefepime to better cover for the UTI as no anaerobic coverage needed for the UTI 3gentle IV fluid 4Lovenox zinc ascorbic acid 5droplet isolation We will follow on clinical condition and cultures to further adjust medication if needed Thank you for this consultation will follow this patient along with you Time with Patient: Greater than 30
[2021-12-05] MEDS: methocarbamoL 500 MG TAB PO PRN ×2 (00:27→02:03)
--- NOTE | 2021-12-05 01:19 | HP ---
HISTORY AND PHYSICAL CHIEF COMPLAINT: Shortness of breath, fever, COVID, and weakness. HISTORY OF PRESENT ILLNESS: This 65-year-old woman with a past medical history of multiple complex medical issues including CHF, atrial fibrillation, asthma, being followed by Dr. Deluca in the outpatient setting, is complaining of weakness. The patient also had generalized weakness as well as the patient is also feeling cold. The neighbor also having some cold previously and they also had COVID earlier. The patient also has noted productive cough and shortness of breath, and the patient came to [facility] and was admitted for further evaluation and treatment. A chest x-ray was done in the ER, which I reviewed personally, which showed cardiomegaly and chronic changes. The patient is being admitted for evaluation and treatment. COVID-19 is positive. There is no history of any rigors or chills at this time. PAST MEDICAL HISTORY: Reviewed and include atrial fibrillation, asthma, and multiple complex medical issues. HOME MEDICATIONS: Once again reviewed, include Robaxin. Dose and rest of medications noted. ALLERGIES: Also reviewed, include grass pollen. FAMILY HISTORY: History of cancer in the family. SOCIAL HISTORY: Previous history of smoking. REVIEW OF SYSTEMS: 14-point review of systems is negative as mentioned earlier. PHYSICAL EXAMINATION: VITAL SIGNS: Pulse is 75, blood pressure ntd, respirations 18, temperature is 100 degrees Fahrenheit. HEENT: Conjunctivae normal. NECK: No JVD. CARDIOVASCULAR: No murmurs. RESPIRATION: Breath sounds diminished at the bases. Few scattered rhonchi and expiratory wheezing. ABDOMEN: Soft, obese, nontender. LEGS: No edema. No swelling. NERVOUS SYSTEM: ntd LYMPHATICS: No lymphadenopathy. SKIN: No ulcer, rash, bleeding. JOINTS: No active deforming arthropathy. LABORATORY DATA: Reviewed. Chest x-ray personally reviewed. UA shows possible UTI. ASSESSMENT: 1. Acute COVID-19 infection with dehydration and weakness. 2. Acute urinary tract infection. 3. Atrial fibrillation. 4. Asthma. 5. History of congestive heart failure. 6. History of deep venous thrombosis. 7. Diabetes type 2. 8. Multiple complex medical issues. RECOMMENDATIONS: In this 65-year-old woman, who presented with multiple complex medical issues, we will monitor the patient closely. We will initiate bronchodilators, otherwise monitor fluid and electrolyte balance closely. Infectious Disease evaluation for COVID, and the patient has seen Dr. Guevara previously. We will consult Pulmonary as well, and PT/OT evaluation and evaluate the strength. Repeat labs will be ordered. Overall prognosis is extremely guarded because of multiple complex medical issues. Further recommendations to follow. See orders for further details. MMODL / IJN: [id number] / MTDD
[2021-12-05] MEDS: CEFEPIME 2 GM in SODIUM CHLORIDE 0.9% 100 ML IVPB SCH ×3 (02:03→18:52)
[2021-12-05 03:31] LABS: C Reactive Protein 2.3 mg/dL (0.00-0.80)
--- NOTE | 2021-12-05 07:23 | XR ---
EXAMINATION TYPE: XR chest 1V portable DATE OF EXAM: 12/05/2021 HISTORY: Shortness of breath. COMPARISON: 12/04/2021 TECHNIQUE: Single view of the chest is submitted. FINDINGS: Demonstrated are scattered senescent parenchymal change. Right lower lobe infiltrate is noted. The heart is stable. Hilar and mediastinal structures are within normal limits. Degenerative changes are seen of the dorsal spine. IMPRESSION: 1. Small area of the right lower lobe infiltrate identified.
[2021-12-05] MEDS: ALBUTEROL HFA INHALER INHALATION SCH ×3 (08:05→19:35)
[2021-12-05] MEDS: TIOTROPIUM 2.5 MCG INHALER INHALATION SCH (08:05)
[2021-12-05] MEDS: METOPROLOL SUCCINATE (ER) 100 MG TAB.ER.24H PO SCH (08:13)
[2021-12-05] MEDS: ISOSORBIDE MONONITRATE ER 30 MG TAB.ER.24H PO SCH (08:13)
[2021-12-05] MEDS: LEVOTHYROXINE 125 MCG TAB PO SCH (08:13)
[2021-12-05] MEDS: ASPIRIN 81 MG PO SCH (08:13)
[2021-12-05] MEDS: lisinopriL 5 MG TAB PO SCH (08:13)
[2021-12-05] MEDS: GLIMEPIRIDE 2 MG TAB PO SCH (08:13)
[2021-12-05] MEDS: SPIRONOLACTONE 25 MG TAB PO SCH (08:13)
[2021-12-05 09:16] LABS: Basophils # (A) 0.01 X 10*3/uL (0.00-0.10); Basophils % (A) 0.3 %; Eosinophils # (A) 0 X 10*3/uL (0.04-0.35); Eosinophils % (A) 0 %; HCT 40.5 % (37.2-46.3); HGB 12.4 g/dL (12.0-15.0); Immature Grans, Automated 0.6 %; Lymphocytes # (A) 0.87 X 10*3/uL (0.90-5.00); Lymphocytes % (A) 26.7 %; MCH 26.2 pg (27.0-32.0); MCHC 30.6 g/dL (32.0-37.0); MCV 85.6 fL (80.0-97.0); Mean Platelet Volume 9.3 fL (9.5-12.2); Monocytes # (A) 0.25 X 10*3/uL (0.20-1.00); Monocytes % (A) 7.7 %; NRBC Per 100 WBC 0 /100 WBCS (0.0-0.0); Neutrophils # (A) 2.11 X 10*3/uL (1.80-7.70); Neutrophils % (A) 64.7 %; Platelet Count 152 X 10*3/uL (140-440); RBC 4.73 X 10*6/uL (4.10-5.20); RDW 16.9 % (11.5-14.5); WBC 3.26 X 10*3/uL (4.50-10.00)
[2021-12-05] MEDS ORDERED: CEFEPIME 2 GM in SODIUM CHLORIDE 0.9% 100 ML IVPB SCH (10:00)
[2021-12-05 10:02] LABS: ALT 16 U/L (8-44); AST 24 U/L (13-35); African American GFR (CKD) 54.5 (60.0-200.0); Albumin 4.1 g/dL (3.8-4.9); Albumin/Globulin Ratio 1.52 (1.60-3.17); Alkaline Phosphatase 93 U/L (41-126); BUN/Creat Ratio 16.83 Ratio (12.00-20.00); Blood Urea Nitrogen 20.2 mg/dL (9.0-27.0); Calcium 8.9 mg/dL (8.7-10.3); Carbon Dioxide 22.4 mmol/L (20.0-27.5); Chloride 101 mmol/L (96-109); Globulin 2.7 g/dL (1.6-3.3); Glucose 219 mg/dL (70-110); Non-African American GFR(CKD) 47.1 (60.0-200.0); Potassium 5.1 mmol/L (3.5-5.5); Sodium 136 mmol/L (135-145); Total Bilirubin <0.15 mg/dL (0.30-1.20); Total Protein 6.8 g/dL (6.2-8.2)
[2021-12-05] MEDS: SODIUM CHLORIDE 0.9% 1,000 ML IV SCH (10:11)
--- NOTE | 2021-12-05 11:42 | P.PN ---
Subjective Progress Note Date: 12/05/21 65-year-old female patient with multiple medical problems and comorbidities who came into the emergency department because of generalized weakness. The patient has been feeling weak for the past few days and she has a neighbor that came in to the house and found her and debilitated condition and having difficulty with mobility. The patient normally moves around with help of a walker. She was very weak and she was unable to get out of her bed and for that reason EMS was called to the scene and the patient was brought into the hospital. The patient admitted to have episodes of fever and some scratchiness in the throat and some limited cough. No sinus shortness of breath. No chest pain. No pigmentation. She has chronically his lower extremities and difficulty with mobility and gait. No worsening in lower extremity edema.. No nausea vomiting or diarrhea or abdominal pain. In the emergency department, the patient was evaluated. The patient was found to be febrile with a temperature was 101.4. She was hemodynamically stable and she was not hypotensive.. The patient and indicated that showed a normal sinus rhythm. The white cell count was at 5.2 with hemoglobin 11.3 and a platelet count of 167. Electrodes are all within normal limits. His sodium level was at 135 with a potassium level of 5.1 and a glucose level of 108. The patient had a TSH of 1.1. Albumin with a 3.6 with a total protein of 6.3. Lactic acid level was at 0.7. The patient had a proBNP level of 3280 and a troponin level of less than 0.01. UA was abnormal with multiple white cells and clumps of white cells and the white cell count was 182 and the urine was turbid with +1 protein. The patient also tested positive for COVID 19. Influenza screen was negative. The chest x-ray was essentially unchanged compared to her previous chest x-ray findings and the patient's pulse ox was 96% on room air oxygen. He was hospitalized for underlying UTI and COVID 19 infection intermittently generalized weakness. The patient was started on IV Zosyn. As far as comorbid conditions, the patient was recently hospitalized for a fall and right ankle injury the turn supervisor to be not related to any fracture. This was a sprain. She was released to the correction following that as the patient was unable to bear weight due to pain. She gradually rehabilitated herself. She has paroxysmal atrial fibrillation. She has coronary artery disease multivessel and she is known to have previous non-ST segment elevation myocardial infarction. She has chronic systolic heart failure, previous history of CVA, hypertension, hyperlipidemia, intermittent bronchial asthma, diabetes mellitus type 2, hypothyroidism and stage II chronic kidney disease. She also has an ejection fraction of 40-45% with mild concentric LVH. She has had previous episodes of urinary current urinary tract infection with gram-negative bacteria. The patient is seen today 12/05/2021 in the emergency department still. She is sitting up on the stretcher. Awake and alert in no acute distress. Maintaining O2 saturations in the 90s on room air. Feeling better today compared to yesterday. Chest x-ray reveals some right lower lobe atelectasis. Urine culture pending. White count 3.2. Hemoglobin 12.4. Platelets 152. Sodium 136. Potassium 5.1. BUN 20. Creatinine 1.2. She remains on antibiotics in the form of cefepime. Anticoagulated with Xarelto. Continued on bronchodilators. Objective - Vital Signs Vital signs: Vital Signs Temp 98 F 12/05/21 06:37 Pulse 88 12/05/21 08:00 Resp 20 12/05/21 08:00 BP 114/67 12/05/21 08:00 Pulse Ox 96 12/05/21 08:00 FiO2 Intake & Output 12/04/21 12/05/21 12/05/21 18:59 06:59 18:59 Output Total 1999 Balance -1999 Weight 120.066 kg Output: Urine 1999 - Exam Gen: This is a morbidly obese 65-year-old female. Patient is resting in bed and appears to be comfortable and in no acute distress. The patient is currently on room air oxygen Head exam was generally normal. There was no scleral icterus or corneal arcus. Mucous membranes were moist. HEENT: Head is atraumatic, normocephalic. Pupils equal, round. Sclerae is anicte colton. NECK: Supple. No JVD. No lymphadenopathy. No thyromegaly. LUNGS: Clear to auscultation. No wheezes or rhonchi. No intercostal retractions. HEART: Regular rate and rhythm. No murmur. ABDOMEN: Soft. Bowel sounds are present. No masses. No tenderness. EXTREMITIES: No pedal edema. No calf tenderness. There is +1 pitting edema lower extremities bilaterally NEUROLOGICAL: Patient is awake, alert and oriented x3. Cranial nerves 2 through 12 are grossly intact. Examination of the skin revealed no evidence of significant rashes, suspicious appearing nevi or other concerning lesions. - Labs CBC & Chem 7: 12/05/21 05:17 12/05/21 05:17 Labs: Abnormal Lab Results - Last 24 Hours (Table) 12/04/21 12/04/21 12/04/21 Range/Units 11:30 11:30 11:30 WBC (4.50-10.00) X 10*3/uL Hgb 11.3 L (11.4-16.0) gm/dL MCH (27.0-32.0) pg MCHC 30.4 L (31.0-37.0) g/dL RDW 16.5 H (11.5-15.5) % MPV (9.5-12.2) fL Lymphocytes # 0.5 L (1.0-4.8) k/uL Eosinophils # (0.04-0.35) X 10*3/uL Sodium 135 L (137-145) mmol/L BUN 18 H (7-17) mg/dL Est GFR (CKD-EPI)AfAm (60.0-200.0) Est GFR (CKD-EPI)NonAf (60.0-200.0) Glucose 108 H (74-99) mg/dL Total Bilirubin (0.30-1.20) mg/dL Creatine Kinase 20 L (30-135) U/L C-Reactive Protein (0.00-0.80) mg/dL Albumin/Globulin Ratio (1.60-3.17) g/dL Urine Appearance Turbid H (Clear) Urine Protein 1+ H (Negative) Urine Blood Moderate H (Negative) Urine Nitrite Positive H (Negative) Ur Leukocyte Esterase Large H (Negative) Urine RBC 22 H (0-5) /hpf Urine WBC >182 H (0-5) /hpf Urine WBC Clumps Many H (None) /hpf Urine Bacteria Occasional H (None) /hpf Coronavirus (PCR) (Not Detectd) 12/04/21 12/04/21 12/05/21 Range/Units 11:30 11:30 05:17 WBC 3.26 L (4.50-10.00) X 10*3/uL Hgb (11.4-16.0) gm/dL MCH 26.2 L (27.0-32.0) pg MCHC 30.6 L (31.0-37.0) g/dL RDW 16.9 H (11.5-15.5) % MPV 9.3 L (9.5-12.2) fL Lymphocytes # 0.87 L (1.0-4.8) k/uL Eosinophils # 0 L (0.04-0.35) X 10*3/uL Sodium (137-145) mmol/L BUN (7-17) mg/dL Est GFR (CKD-EPI)AfAm (60.0-200.0) Est GFR (CKD-EPI)NonAf (60.0-200.0) Glucose (74-99) mg/dL Total Bilirubin (0.30-1.20) mg/dL Creatine Kinase (30-135) U/L C-Reactive Protein 2.30 H (0.00-0.80) mg/dL Albumin/Globulin Ratio (1.60-3.17) g/dL Urine Appearance (Clear) Urine Protein (Negative) Urine Blood (Negative) Urine Nitrite (Negative) Ur Leukocyte Esterase (Negative) Urine RBC (0-5) /hpf Urine WBC (0-5) /hpf Urine WBC Clumps (None) /hpf Urine Bacteria (None) /hpf Coronavirus (PCR) Detected A (Not Detectd) 12/05/21 Range/Units 05:17 WBC (4.50-10.00) X 10*3/uL Hgb (11.4-16.0) gm/dL MCH (27.0-32.0) pg MCHC (31.0-37.0) g/dL RDW (11.5-15.5) % MPV (9.5-12.2) fL Lymphocytes # (1.0-4.8) k/uL Eosinophils # (0.04-0.35) X 10*3/uL Sodium (137-145) mmol/L BUN (7-17) mg/dL Est GFR (CKD-EPI)AfAm 54.5 L (60.0-200.0) Est GFR (CKD-EPI)NonAf 47.1 L (60.0-200.0) Glucose 219 H (74-99) mg/dL Total Bilirubin <0.15 L (0.30-1.20) mg/dL Creatine Kinase (30-135) U/L C-Reactive Protein (0.00-0.80) mg/dL Albumin/Globulin Ratio 1.52 L (1.60-3.17) g/dL Urine Appearance (Clear) Urine Protein (Negative) Urine Blood (Negative) Urine Nitrite (Negative) Ur Leukocyte Esterase (Negative) Urine RBC (0-5) /hpf Urine WBC (0-5) /hpf Urine WBC Clumps (None) /hpf Urine Bacteria (None) /hpf Coronavirus (PCR) (Not Detectd) Microbiology - Last 24 Hours (Table) 12/04/21 11:30 Urine Culture - Preliminary Urine,Voided Assessment and Plan Assessment: Acute COVID 19 infection without indication for pneumonia. No signs of metastatic distress or hypoxemia. The patient is not vaccinated. There is a first episode of infection with COVID 19. Acute UTI, likely gram-negative bacteria as the patient had frequent UTIs in the past Acute febrile illness secondary to above Generalized weakness secondary to above Recent history of fall and ankle sprain involving the right foot Known history of ischemic cardiomyopathy with systolic heart failure with an ejection fraction of 40-45% Known history of multivessel severe coronary artery disease Paroxysmal atrial fibrillation Previous history of severe anemia secondary to GI blood losses., Chronic kidney disease stage II, sees nephrology on a regular basis. history of nephrolithiasis, lithotripsy, and ureteral stent placement. history of paroxysmal atrial fibrillation. Previous ablation. history of hypertension history of hypothyroidism on replacement therapy history of mild intermittent asthma presently inactive history of type 2 diabetes history of dyslipidemia. history of pulmonary embolism. Diabetic peripheral neuropathy Medical debility seconds above-mentioned comorbidities Plan: The patient was seen and evaluated Currently stable from the pulmonary standpoint Maintaining O2 saturations in the mid to upper 90s on room air Continue the current treatment plan Remains on antibiotics for suspected UTI Home once cleared by medicine I have personally seen and examined the patient, performed the documentation and the assessment and plan as written. Number of minutes spent on the visit: 10. I have personally seen and examined the patient and reviewed the documentation. I performed a joint evaluation with the nurse practitioner in this evaluation was done more than 20 minutes. I fully agree with the documentation above and the plan of care. Awaiting cultures from the urine. Continue his IV antibiotics and the patient is afebrile hemodynamically stable. No interval worsening and oxygenation. Clinically stable for now. Remains on IV cefepime.
[2021-12-05] MEDS: ACETAMINOPHEN TAB 325 MG TAB PO PRN (14:34)
[2021-12-05] MEDS: DOCUSATE 100 MG CAP PO SCH ×2 (14:37→19:49)
[2021-12-05] MEDS: ATORVASTATIN 40 MG TAB PO SCH (19:32)
[2021-12-05] MEDS: RIVAROXABAN 20 MG TAB PO SCH (19:40)
[2021-12-05] MEDS: LORATADINE 10 MG TAB PO PRN (22:54)
[2021-12-05] MEDS: HYDROcodone/APAP 5-325MG 1 EACH TAB PO PRN (22:54)
[2021-12-06] MEDS: CEFEPIME 2 GM in SODIUM CHLORIDE 0.9% 100 ML IVPB SCH ×2 (02:21→15:20)
--- NOTE | 2021-12-06 04:57 | PN ---
PROGRESS NOTE HISTORY OF PRESENT ILLNESS: This 65-year-old woman was admitted with acute COVID-19 and also had acute UTI. The patient also complains of some weakness. No chest pain, no palpitation. PHYSICAL EXAMINATION: VITAL SIGNS: Pulse is 80, blood pressure 180/70, respirations 20. HEENT: Conjunctivae normal. NECK: No jugular venous distention. CARDIOVASCULAR: S1, S2 muffled. ABDOMEN: Soft. NERVOUS SYSTEM: Nonfocal. LABS: Reviewed, cultures are pending. ASSESSMENT: 1. Acute urinary tract infection. 2. Acute COVID-19 with dehydration and weakness. 3. Atrial fibrillation. 4. Asthma. 5. History of congestive heart failure. 6. Multiple medical issues. RECOMMENDATIONS: I recommend to continue current management and symptomatic treatment, otherwise at this time I will recommend continue with IV fluids and repeat labs in the morning. Follow the cultures. Prognosis guarded. Further recommendations to follow. MMODL / IJN: [id number] /
[2021-12-06] MEDS: SODIUM CHLORIDE 0.9% 1,000 ML IV SCH (07:32)
[2021-12-06] MEDS: ISOSORBIDE MONONITRATE ER 30 MG TAB.ER.24H PO SCH (08:30)
[2021-12-06] MEDS: ASPIRIN 81 MG PO SCH (08:30)
[2021-12-06] MEDS: lisinopriL 5 MG TAB PO SCH (08:30)
[2021-12-06] MEDS: METOPROLOL SUCCINATE (ER) 100 MG TAB.ER.24H PO SCH (08:30)
[2021-12-06] MEDS: LEVOTHYROXINE 125 MCG TAB PO SCH (08:30)
[2021-12-06] MEDS: SPIRONOLACTONE 25 MG TAB PO SCH (08:30)
[2021-12-06] MEDS: DOCUSATE 100 MG CAP PO SCH ×2 (08:30→20:30)
[2021-12-06] MEDS: GLIMEPIRIDE 2 MG TAB PO SCH (08:41)
[2021-12-06] MEDS: ALBUTEROL HFA INHALER INHALATION SCH ×3 (09:23→21:41)
[2021-12-06] MEDS: TIOTROPIUM 2.5 MCG INHALER INHALATION SCH (09:23)
[2021-12-06 11:10] LABS: Basophils # (A) 0.01 X 10*3/uL (0.00-0.10); Basophils % (A) 0.2 %; Eosinophils # (A) 0.02 X 10*3/uL (0.04-0.35); Eosinophils % (A) 0.4 %; HCT 35.5 % (37.2-46.3); HGB 10.9 g/dL (12.0-15.0); Immature Grans, Automated 0.7 %; Lymphocytes # (A) 1.88 X 10*3/uL (0.90-5.00); Lymphocytes % (A) 34.7 %; MCH 26.4 pg (27.0-32.0); MCHC 30.7 g/dL (32.0-37.0); Mean Platelet Volume 9.5 fL (9.5-12.2); Monocytes # (A) 0.64 X 10*3/uL (0.20-1.00); Monocytes % (A) 11.8 %; NRBC Per 100 WBC 0 /100 WBCS (0.0-0.0); Neutrophils # (A) 2.83 X 10*3/uL (1.80-7.70); Neutrophils % (A) 52.2 %; Platelet Count 165 X 10*3/uL (140-440); RBC 4.13 X 10*6/uL (4.10-5.20); RDW 17.2 % (11.5-14.5); WBC 5.42 X 10*3/uL (4.50-10.00)
[2021-12-06 11:25] LABS: African American GFR (CKD) 66.4 (60.0-200.0); Anion Gap 9.6 mmol/L (10.00-18.00); BUN/Creat Ratio 26.86 Ratio (12.00-20.00); Blood Urea Nitrogen 27.4 mg/dL (9.0-27.0); Calcium 8.4 mg/dL (8.7-10.3); Carbon Dioxide 23.5 mmol/L (20.0-27.5); Non-African American GFR(CKD) 57.3 (60.0-200.0); Potassium 4.6 mmol/L (3.5-5.5)
[2021-12-06 11:52] LABS: Glucose,Whole Blood 91 mg/dL (70-110)
--- NOTE | 2021-12-06 12:01 | P.PN ---
Subjective Progress Note Date: 12/05/21 Principal diagnosis: Covid 19 and UTI Patient is a 65-year-old female presenting to the hospital with generalized weakness unable to get out of her chair did have some URI symptoms tested positive for COVID and did have a positive UA concerning for a urinary tract infection. On today's evaluation that is 12/05/2021, the patient denies having any fever or any chills the patient is currently breathing comfortably on room air satting around 96%, the patient denies having any chest pain or any worsening cough no abdominal pain vomiting diarrhea. Objective - Vital Signs Vital signs: Vital Signs Temp 98 F 12/05/21 06:37 Pulse 88 12/05/21 08:00 Resp 20 12/05/21 08:00 BP 114/67 12/05/21 08:00 Pulse Ox 96 12/05/21 08:00 FiO2 Intake & Output 12/04/21 12/05/21 12/05/21 18:59 06:59 18:59 Output Total 2000 Balance -2000 Weight 120.066 kg Output: Urine 1999 - Exam GENERAL DESCRIPTION: Elderly female lying in bed, no distress. No tachypnea or accessory muscle of respiration use. LUNGS: Unlabored breathing. Clear to auscultation anteriorly. No wheeze or crackle. HEART: S1, S2, regular rate and rhythm. No loud murmur ABDOMEN: Soft, no tenderness , guarding or rigidity, no organomegaly EXTREMITIES: No edema of feet. - Labs CBC & Chem 7: 12/06/21 07:06 12/06/21 07:06 Labs: Abnormal Lab Results - Last 24 Hours (Table) 12/04/21 12/04/21 12/04/21 Range/Units 11:30 11:30 11:30 WBC (4.50-10.00) X 10*3/uL Hgb 11.3 L (11.4-16.0) gm/dL MCH (27.0-32.0) pg MCHC 30.4 L (31.0-37.0) g/dL RDW 16.5 H (11.5-15.5) % MPV (9.5-12.2) fL Lymphocytes # 0.5 L (1.0-4.8) k/uL Eosinophils # (0.04-0.35) X 10*3/uL Sodium 135 L (137-145) mmol/L BUN 18 H (7-17) mg/dL Est GFR (CKD-EPI)AfAm (60.0-200.0) Est GFR (CKD-EPI)NonAf (60.0-200.0) Glucose 108 H (74-99) mg/dL Total Bilirubin (0.30-1.20) mg/dL Creatine Kinase 20 L (30-135) U/L C-Reactive Protein (0.00-0.80) mg/dL Albumin/Globulin Ratio (1.60-3.17) g/dL Urine Appearance Turbid H (Clear) Urine Protein 1+ H (Negative) Urine Blood Moderate H (Negative) Urine Nitrite Positive H (Negative) Ur Leukocyte Esterase Large H (Negative) Urine RBC 22 H (0-5) /hpf Urine WBC >182 H (0-5) /hpf Urine WBC Clumps Many H (None) /hpf Urine Bacteria Occasional H (None) /hpf Coronavirus (PCR) (Not Detectd) 12/04/21 12/04/21 12/05/21 Range/Units 11:30 11:30 05:17 WBC 3.26 L (4.50-10.00) X 10*3/uL Hgb (11.4-16.0) gm/dL MCH 26.2 L (27.0-32.0) pg MCHC 30.6 L (31.0-37.0) g/dL RDW 16.9 H (11.5-15.5) % MPV 9.3 L (9.5-12.2) fL Lymphocytes # 0.87 L (1.0-4.8) k/uL Eosinophils # 0 L (0.04-0.35) X 10*3/uL Sodium (137-145) mmol/L BUN (7-17) mg/dL Est GFR (CKD-EPI)AfAm (60.0-200.0) Est GFR (CKD-EPI)NonAf (60.0-200.0) Glucose (74-99) mg/dL Total Bilirubin (0.30-1.20) mg/dL Creatine Kinase (30-135) U/L C-Reactive Protein 2.30 H (0.00-0.80) mg/dL Albumin/Globulin Ratio (1.60-3.17) g/dL Urine Appearance (Clear) Urine Protein (Negative) Urine Blood (Negative) Urine Nitrite (Negative) Ur Leukocyte Esterase (Negative) Urine RBC (0-5) /hpf Urine WBC (0-5) /hpf Urine WBC Clumps (None) /hpf Urine Bacteria (None) /hpf Coronavirus (PCR) Detected A (Not Detectd) 12/05/21 Range/Units 05:17 WBC (4.50-10.00) X 10*3/uL Hgb (11.4-16.0) gm/dL MCH (27.0-32.0) pg MCHC (31.0-37.0) g/dL RDW (11.5-15.5) % MPV (9.5-12.2) fL Lymphocytes # (1.0-4.8) k/uL Eosinophils # (0.04-0.35) X 10*3/uL Sodium (137-145) mmol/L BUN (7-17) mg/dL Est GFR (CKD-EPI)AfAm 54.5 L (60.0-200.0) Est GFR (CKD-EPI)NonAf 47.1 L (60.0-200.0) Glucose 219 H (74-99) mg/dL Total Bilirubin <0.15 L (0.30-1.20) mg/dL Creatine Kinase (30-135) U/L C-Reactive Protein (0.00-0.80) mg/dL Albumin/Globulin Ratio 1.52 L (1.60-3.17) g/dL Urine Appearance (Clear) Urine Protein (Negative) Urine Blood (Negative) Urine Nitrite (Negative) Ur Leukocyte Esterase (Negative) Urine RBC (0-5) /hpf Urine WBC (0-5) /hpf Urine WBC Clumps (None) /hpf Urine Bacteria (None) /hpf Coronavirus (PCR) (Not Detectd) Microbiology - Last 24 Hours (Table) 12/04/21 11:30 Urine Culture - Preliminary Urine,Voided Assessment and Plan (1) COVID-19 Current Visit: Yes Status: Acute Code(s): U07.1 - COVID-19 SNOMED Code(s): 966717807 (2) UTI (urinary tract infection) Current Visit: Yes Status: Acute Code(s): N39.0 - URINARY TRACT INFECTION, SITE NOT SPECIFIED SNOMED Code(s): 43634631 Plan: 1patient presented to hospital with generalized weakness she is likely multifactorial and could be related to the COVID-19 infection as the patient not vaccinated for COVID-19 however the patient currently not hypoxic and the chest x-ray was negative for acute infiltrate treatment will be mostly supportive, patient did have a positive UA and some burning of urine likely symptomatic UTI from enteric gram-negative pathogen. 2Pt to continue with cefepime for the UTI and continue with Lovenox zinc a scorbic acid Time with Patient: Less than 30
--- NOTE | 2021-12-06 12:03 | P.PN ---
Subjective Progress Note Date: 12/06/21 Principal diagnosis: Covid 19 and UTI Patient is a 65-year-old female presenting to the hospital with generalized weakness unable to get out of her chair did have some URI symptoms tested positive for COVID and did have a positive UA concerning for a urinary tract infection. On today's evaluation that is 12/06/2021, the remains to be afebrile, the patient is breathing comfortably on room air patient denies having any chest pain no worsening cough or sputum production but denies any abdominal pain or diarrhea no new symptoms Objective - Vital Signs Vital signs: Vital Signs Temp 98.2 F 12/06/21 10:00 Pulse 58 L 12/06/21 10:00 Resp 16 12/06/21 10:00 BP 109/71 12/06/21 10:00 Pulse Ox 95 12/06/21 10:00 FiO2 Intake & Output 12/05/21 12/06/21 12/06/21 18:59 06:59 18:59 Output Total 400 Balance -400 Weight 120.066 kg Output: Urine 400 Other: Voiding Method External Catheter External Catheter - Exam GENERAL DESCRIPTION: Elderly female lying in bed, no distress. No tachypnea or accessory muscle of respiration use. LUNGS: Unlabored breathing. Clear to auscultation anteriorly. No wheeze or crackle. HEART: S1, S2, regular rate and rhythm. No loud murmur ABDOMEN: Soft, no tenderness , guarding or rigidity, no organomegaly EXTREMITIES: No edema of feet. - Labs CBC & Chem 7: 12/06/21 07:06 12/06/21 07:06 Labs: Abnormal Lab Results - Last 24 Hours (Table) 12/06/21 12/06/21 Range/Units 07:06 07:06 Hgb 10.9 L (12.0-15.0) g/dL Hct 35.5 L (37.2-46.3) % MCH 26.4 L (27.0-32.0) pg MCHC 30.7 L (32.0-37.0) g/dL RDW 17.2 H (11.5-14.5) % Eosinophils # 0.02 L (0.04-0.35) X 10*3/uL Anion Gap 9.60 L (10.00-18.00) mmol/L BUN 27.4 H (9.0-27.0) mg/dL Est GFR (CKD-EPI)NonAf 57.3 L (60.0-200.0) BUN/Creatinine Ratio 26.86 H (12.00-20.00) Ratio Glucose 113 H (70-110) mg/dL Calcium 8.4 L (8.7-10.3) mg/dL Microbiology - Last 24 Hours (Table) 12/04/21 11:30 Urine Culture - Preliminary Urine,Voided Gram Neg Bacilli 12/04/21 14:11 Blood Culture - Preliminary Blood No Growth after 24 hours 12/04/21 14:11 Blood Culture - Preliminary Blood No Growth after 24 hours Assessment and Plan (1) COVID-19 Current Visit: Yes Status: Acute Code(s): U07.1 - COVID-19 SNOMED Code(s): 365513749 (2) UTI (urinary tract infection) Current Visit: Yes Status: Acute Code(s): N39.0 - URINARY TRACT INFECTION, SITE NOT SPECIFIED SNOMED Code(s): 43246341 Plan: 1patient presented to hospital with generalized weakness she is likely multifactorial and could be related to the COVID-19 infection as the patient not vaccinated for COVID-19 however the patient currently not hypoxic and the chest x-ray was negative for acute infiltrate treatment will be mostly supportive, patient did have a positive UA and some burning of urine likely symptomatic UTI from enteric gram-negative pathogen. 2the patient urine is currently showing a gram-negative with ID sensitivities pending patient to continue with the cefepime while waiting for the culture to finalize to determine her discharge antibiotics and continue supportive care, c ontinue with current supportive treatment for Covid19 infection Time with Patient: Less than 30
--- NOTE | 2021-12-06 13:14 | P.PN ---
Subjective Progress Note Date: 12/06/21 65-year-old female patient with multiple medical problems and comorbidities who came into the emergency department because of generalized weakness. The patient has been feeling weak for the past few days and she has a neighbor that came in to the house and found her and debilitated condition and having difficulty with mobility. The patient normally moves around with help of a walker. She was very weak and she was unable to get out of her bed and for that reason EMS was called to the scene and the patient was brought into the hospital. The patient admitted to have episodes of fever and some scratchiness in the throat and some limited cough. No sinus shortness of breath. No chest pain. No pigmentation. She has chronically his lower extremities and difficulty with mobility and gait. No worsening in lower extremity edema.. No nausea vomiting or diarrhea or abdominal pain. In the emergency department, the patient was evaluated. The patient was found to be febrile with a temperature was 101.4. She was hemodynamically stable and she was not hypotensive.. The patient and indicated that showed a normal sinus rhythm. The white cell count was at 5.2 with hemoglobin 11.3 and a platelet count of 167. Electrodes are all within normal limits. His sodium level was at 135 with a potassium level of 5.1 and a glucose level of 108. The patient had a TSH of 1.1. Albumin with a 3.6 with a total protein of 6.3. Lactic acid level was at 0.7. The patient had a proBNP level of 3280 and a troponin level of less than 0.01. UA was abnormal with multiple white cells and clumps of white cells and the white cell count was 182 and the urine was turbid with +1 protein. The patient also tested positive for COVID 19. Influenza screen was negative. The chest x-ray was essentially unchanged compared to her previous chest x-ray findings and the patient's pulse ox was 96% on room air oxygen. He was hospitalized for underlying UTI and COVID 19 infection intermittently generalized weakness. The patient was started on IV Zosyn. As far as comorbid conditions, the patient was recently hospitalized for a fall and right ankle injury the returned goods inspector to be not related to any fracture. This was a sprain. She was released to the correction following that as the patient was unable to bear weight due to pain. She gradually rehabilitated herself. She has paroxysmal atrial fibrillation. She has coronary artery disease multivessel and she is known to have previous non-ST segment elevation myocardial infarction. She has chronic systolic heart failure, previous history of CVA, hypertension, hyperlipidemia, intermittent bronchial asthma, diabetes mellitus type 2, hypothyroidism and stage II chronic kidney disease. She also has an ejection fraction of 40-45% with mild concentric LVH. She has had previous episodes of urinary current urinary tract infection with gram-negative bacteria. The patient is seen today 12/05/2021 in the emergency department still. She is sitting up on the stretcher. Awake and alert in no acute distress. Maintaining O2 saturations in the 90s on room air. Feeling better today compared to yesterday. Chest x-ray reveals some right lower lobe atelectasis. Urine culture pending. White count 3.2. Hemoglobin 12.4. Platelets 152. Sodium 136. Potassium 5.1. BUN 20. Creatinine 1.2. She remains on antibiotics in the form of cefepime. Anticoagulated with Xarelto. Continued on bronchodilators. The patient is seen today 12/06/2021 in follow-up on the regular medical floor. She is currently sitting up in bed. Awake and alert in no acute distress. She is maintaining good O2 saturations in the mid 90s on room air. Afebrile. Hemodynamically stable. Urine cultures positive for gram-negative bacilli. Blood cultures reveal no growth. White count 5.4. Hemoglobin 10.9. Platelets 165. Sodium 137. Potassium 4.6. BUN 27. Creatinine 1.0. Glucose 113. She is continued on antibiotics in the form of cefepime. Anticoagulated with Xarelto. Objective - Vital Signs Vital signs: Vital Signs Temp 98.2 F 12/06/21 10:00 Pulse 58 L 12/06/21 10:00 Resp 16 12/06/21 10:00 BP 109/71 12/06/21 10:00 Pulse Ox 95 12/06/21 10:00 FiO2 Intake & Output 12/05/21 12/06/21 12/06/21 18:59 06:59 18:59 Output Total 400 Balance -400 Weight 120.066 kg Output: Urine 400 Other: Voiding Method External Catheter External Catheter - Exam Gen: This is a morbidly obese pleasant 65-year-old female. Patient is resting in bed and appears to be comfortable and in no acute distress. The patient is currently on room air oxygen Head exam was generally normal. There was no scleral icterus or corneal arcus. Mucous membranes were moist. HEENT: Head is atraumatic, normocephalic. Pupils equal, round. Sclerae is anicteric. NECK: Supple. No JVD. No lymphadenopathy. No thyromegaly. LUNGS: Clear to auscultation. No wheezes or rhonchi. No intercostal retractions. HEART: Regular rate and rhythm. No murmur. ABDOMEN: Soft. Bowel sounds are present. No masses. No tenderness. EXTREMITIES: No pedal edema. No calf tenderness. There is +1 pitting edema lower extremities bilaterally NEUROLOGICAL: Patient is awake, alert and oriented x3. Cranial nerves 2 through 12 are grossly intact. Examination of the skin revealed no evidence of significant rashes, suspicious appearing nevi or other concerning lesions. - Labs CBC & Chem 7: 12/06/21 07:06 12/06/21 07:06 Labs: Abnormal Lab Results - Last 24 Hours (Table) 12/06/21 12/06/21 Range/Units 07:06 07:06 Hgb 10.9 L (12.0-15.0) g/dL Hct 35.5 L (37.2-46.3) % MCH 26.4 L (27.0-32.0) pg MCHC 30.7 L (32.0-37.0) g/dL RDW 17.2 H (11.5-14.5) % Eosinophils # 0.02 L (0.04-0.35) X 10*3/uL Anion Gap 9.60 L (10.00-18.00) mmol/L BUN 27.4 H (9.0-27.0) mg/dL Est GFR (CKD-EPI)NonAf 57.3 L (60.0-200.0) BUN/Creatinine Ratio 26.86 H (12.00-20.00) Ratio Glucose 113 H (70-110) mg/dL Calcium 8.4 L (8.7-10.3) mg/dL Microbiology - Last 24 Hours (Table) 12/04/21 11:30 Urine Culture - Preliminary Urine,Voided Gram Neg Bacilli 12/04/21 14:11 Blood Culture - Preliminary Blood No Growth after 24 hours 12/04/21 14:11 Blood Culture - Preliminary Blood No Growth after 24 hours Assessment and Plan Assessment: Acute COVID 19 infection without indication for pneumonia. No signs of respiratory distress or hypoxemia. On room air. The patient is not vaccinated. There is a first episode of infection with COVID 19. Acute UTI, gram-negative bacteria as the patient had frequent UTIs in the past, currently on cefepime Acute febrile illness secondary to above Generalized weakness secondary to above Recent history of fall and ankle sprain involving the right foot Known history of ischemic cardiomyopathy with systolic heart failure with an ejection fraction of 40-45% Known history of multivessel severe coronary artery disease Paroxysmal atrial fibrillation Previous history of severe anemia secondary to GI blood losses., Chronic kidney disease stage II, sees nephrology on a regular basis. history of nephrolithiasis, lithotripsy, and ureteral stent placement. history of paroxysmal atrial fibrillation. Previous ablation. history of hypertension history of hypothyroidism on replacement therapy history of mild intermittent asthma presently inactive history of type 2 diabetes history of dyslipidemia. history of pulmonary embolism. Diabetic peripheral neuropathy Medical debility seconds above-mentioned comorbidities Plan: The patient was seen and evaluated Currently stable from the pulmonary standpoint Maintaining O2 saturations in the mid to upper 90s on room air We will see the patient as needed I have personally seen and examined the patient, performed the documentation and the assessment and plan as written. Number of minutes spent on the visit: 10. I have personally seen and examined the patient and reviewed the documentation. I performed a joint evaluation with the nurse practitioner in this evaluation was done more than 20 minutes. I fully agree with the documentation above and the plan of care.. The patient is clinically stable. The patient has a gram- negative UTI and the patient is currently on IV cefepime. Awaiting final cultures sensitivities. Respiratory status is stable. Oxygenation is stable.
[2021-12-06] MEDS: HYDROcodone/APAP 5-325MG 1 EACH TAB PO PRN ×2 (15:19→21:46)
[2021-12-06] MEDS: methocarbamoL 500 MG TAB PO PRN (15:19)
[2021-12-06 17:01] LABS: Glucose,Whole Blood 136 mg/dL (70-110)
[2021-12-06] MEDS: RIVAROXABAN 20 MG TAB PO SCH (18:00)
[2021-12-06] MEDS: ATORVASTATIN 40 MG TAB PO SCH (20:30)
[2021-12-06 21:01] LABS: Glucose,Whole Blood 155 mg/dL (70-110)
[2021-12-07] MEDS: CEFEPIME 2 GM in SODIUM CHLORIDE 0.9% 100 ML IVPB SCH ×2 (01:31→14:58)
[2021-12-07] MEDS: methocarbamoL 500 MG TAB PO PRN (01:45)
--- NOTE | 2021-12-07 06:00 | PN ---
PROGRESS NOTE SUBJECTIVE: This is a 65-year-old woman, who was admitted with acute UTI, also had COVID-19 infection, dehydration also. No chest pain. No palpitations. No fever. PHYSICAL EXAMINATION: VITAL SIGNS: Pulse is 58, blood pressure , respirations 16. HEENT: Conjunctivae normal. NECK: No JVD. CARDIOVASCULAR: S1, S2 muffled. RESPIRATION: Breath sounds diminished at the bases. ABDOMEN: Soft, obese. LEGS: No edema. NERVOUS SYSTEM: No focal deficits. LABORATORY DATA: Reviewed and urine culture showed gram-negative bacilli. ASSESSMENT: 1. Acute urinary tract infection with gram-negative bacilli. The final ID pending. 2. Acute COVID-19 with dehydration and weakness. 3. Atrial fibrillation. 4. Multiple medical issues. RECOMMENDATIONS: I recommend to continue current management, symptomatic treatment. Continue with antibiotics. Await final ID of the organism. Closely follow with Infectious Disease. Further recommendations to follow. MMODL / IJN: [id number] /
[2021-12-07 07:12] LABS: Glucose,Whole Blood 79 mg/dL (70-110)
[2021-12-07] MEDS: LEVOTHYROXINE 125 MCG TAB PO SCH (08:13)
[2021-12-07] MEDS: ISOSORBIDE MONONITRATE ER 30 MG TAB.ER.24H PO SCH (08:13)
[2021-12-07] MEDS: lisinopriL 5 MG TAB PO SCH (08:13)
[2021-12-07] MEDS: ASPIRIN 81 MG PO SCH (08:13)
[2021-12-07] MEDS: METOPROLOL SUCCINATE (ER) 100 MG TAB.ER.24H PO SCH ×2 (08:13→09:21)
[2021-12-07] MEDS: DOCUSATE 100 MG CAP PO SCH ×2 (08:13→20:44)
[2021-12-07] MEDS: SPIRONOLACTONE 25 MG TAB PO SCH (08:13)
[2021-12-07] MEDS: ALBUTEROL HFA INHALER INHALATION SCH ×3 (08:30→19:24)
[2021-12-07] MEDS: TIOTROPIUM 2.5 MCG INHALER INHALATION SCH (08:31)
[2021-12-07] MEDS: GLIMEPIRIDE 2 MG TAB PO SCH (09:25)
[2021-12-07] MEDS: HYDROcodone/APAP 5-325MG 1 EACH TAB PO PRN ×2 (09:47→20:44)
[2021-12-07 11:55] LABS: Glucose,Whole Blood 156 mg/dL (70-110)
--- NOTE | 2021-12-07 14:56 | P.DS ---
Providers Date of admission: 12/04/21 13:45 Expected date of discharge: 12/07/21 Attending physician: Yoselin Caballero Consults: 12/04/21 14:58 Consult Physician Routine Consulting Provider: Jason Olivo Consult Reason/Comments: COVID, WEAKNESS Do you want consulting provider notified?: Yes 12/04/21 14:59 Consult Physician Routine Consulting Provider: Diann Kemp Consult Reason/Comments: ASTHMA Do you want consulting provider notified?: Yes Primary care physician: Lor Deluca Hospital Course: Final diagnosis Acute urinary tract infection, present on admission with culture showing Klebsiella pneumonia Acute COVID-19 infection Dehydration Weakness with gait dysfunction History of pulmonary embolisms and DVT maintained on Xarelto History of chronic systolic heart failure, not in exacerbation Fibromyalgia CVA/TIA history Paroxysmal atrial fibrillation Hypertension Hyperlipidemia osteoarthritis Diabetes mellitus type 2 Morbid obesity with a body mass index of 48.4 GI prophylaxis DVT prophylaxis Full code Discharge disposition Patient is being discharged in a stable condition with guarded prognosis to [facility] for continued PT/OT therapy. Patient will follow-up with Dr. Deluca in the outpatient setting upon discharge. Patient is to continue with oral antibiotics in the form of Ceftin 500 mg twice daily for the next 1 week and then may discontinue. Total number of minutes spent on visit greater than 35. Hospital course This is a 65-year-old female who was recently admitted with increased weakness along with acute urinary tract infection and also found to have COVID-19 infection and some dehydration and is being closely monitored. Pulmonary and infectious disease following and patient continues to be on room air with no symptoms of COVID-19 pneumonia. Patient is continued on inhalers and recommend continue. Patient also with history of diabetes on oral diabetic agents and recommend to resume and monitor Accu-Cheks closely before meals and at bedtime and may use sliding scale if needed if blood sugars continue to be elevated. Patient is anticoagulated with Xarelto and will continue and also has been maintained on IV cefepime awaiting for cultures are finalized. Urine cultures finalized showing Klebsiella pneumonia with sensitivities and will continue on oral Ceftin 500 mg twice daily for the next 1 week per infectious disease recommendations. Patient continues with significant weakness and has been evaluated by physical therapy recommending subacute rehab. Patient is positive for Covid and will need to go to a Covid hub [facility] on discharge. Case management following an there will be a bed available on 12/08/2021 at [facility] and will be discharged. Currently no reports of chest pain, shortness of breath, or palpitations. Patient is afebrile. No reports of nausea or vomiting and patient is tolerating diet. Patient will be going to [facility]. Patient instructed to follow-up with her primary care provider Dr. Deluca in the outpatient setting once discharged from [facility]. Physical exam: Gen: This is a 65-year-old female awake, alert and oriented 3, well-developed, well-nourished, morbidly obese. HEENT: Head is atraumatic, normocephalic. Pupils equal, round. Sclerae is anicteric. NECK: Supple. No JVD. No lymphadenopathy. No thyromegaly. LUNGS: Diminished breath sounds bilaterally with some scattered rhonchi noted. No intercostal retractions. HEART: S1, S2 are muffled ABDOMEN: Soft. Obese Bowel sounds are present. No masses. No tenderness. EXTREMITIES: No pedal edema. No calf tenderness. NEUROLOGICAL: Patient is awake, alert and oriented x3. Cranial nerves 2 through 12 are grossly intact. Diffuse weakness Please refer to medication reconciliation sheet for a list of medications. The impression and plan of care has been dictated by Gloria Cheung, Nurse Practitioner as directed. Dr. Paul MD I have performed a history and examination and MDM of this patient, discussed the same with the dictator, and agree with the dictator's assessment and plan as written ,documented as a scribe. Based on total visit time, I have performed more than 50% of the visit. Patient Condition at Discharge: Stable Plan - Discharge Summary Discharge Rx Participant: No New Discharge Prescriptions: New HYDROcodone/APAP 5-325MG [[place] 5-325] 1 each PO Q6HR PRN #6 tab PRN Reason: Pain cefUROXime axetiL [Ceftin] 500 mg PO BID 7 Days #14 tab Docusate [Colace] 100 mg PO BID cap Tiotropium 2.5 Mcg/Puff [Spiriva Respimat 2.5 Mcg] 2 puff INHALATION RT-DAILY each Albuterol Inhaler [Ventolin Hfa Inhaler] 2 puff INHALATION RT-TID each Albuterol Inhaler [Ventolin Hfa Inhaler] 2 puff INHALATION RT-TID PRN each PRN Reason: Shortness Of Breath Or Wheezing Continue Montelukast [Singulair] 10 mg PO DAILY PRN PRN Reason: Allergy Symptoms Metoprolol Succinate (ER) [Toprol XL] 100 mg PO DAILY Rivaroxaban [Xarelto] 20 mg PO W/SUPPER Spironolactone [Aldactone] 25 mg PO DAILY Aspirin 81 mg PO DAILY chew lisinopriL [Zestril] 5 mg PO DAILY #30 tab Acetaminophen Tab [Tylenol] 1,000 mg PO Q6H PRN PRN Reason: Pain Levothyroxine Sodium [Synthroid] 125 mcg PO AC-BRKFST Isosorbide Mononitrate ER [Imdur] 30 mg PO DAILY Loratadine [Claritin] 10 mg PO DAILY PRN PRN Reason: Allergy Symptoms methocarbamoL [Robaxin] 500 mg PO Q4H PRN PRN Reason: Muscle Spasm Rosuvastatin [Crestor] 20 mg PO HS Nitroglycerin Sl Tabs [Nitrostat] 0.4 mg SL Q5M PRN PRN Reason: Chest Pain Glimepiride [Amaryl] 2 mg PO AC-BRKFST Discharge Medication List Montelukast [Singulair] 10 mg PO DAILY PRN 08/28/17 [History] Metoprolol Succinate (ER) [Toprol XL] 100 mg PO DAILY 05/03/20 [History] Rivaroxaban [Xarelto] 20 mg PO W/SUPPER 05/03/20 [History] Spironolactone [Aldactone] 25 mg PO DAILY 05/03/20 [History] Aspirin 81 mg PO DAILY chew 05/04/20 [Rx] lisinopriL [Zestril] 5 mg PO DAILY #30 tab 05/04/20 [Rx] Acetaminophen Tab [Tylenol] 1,000 mg PO Q6H PRN 05/22/21 [History] Levothyroxine Sodium [Synthroid] 125 mcg PO AC-BRKFST 05/22/21 [History] Loratadine [Claritin] 10 mg PO DAILY PRN 05/22/21 [History] Rosuvastatin [Crestor] 20 mg PO HS 05/22/21 [History] methocarbamoL [Robaxin] 500 mg PO Q4H PRN 05/22/21 [History] Glimepiride [Amaryl] 2 mg PO AC-BRKFST 12/04/21 [History] Isosorbide Mononitrate ER [Imdur] 30 mg PO DAILY 12/04/21 [History] Nitroglycerin Sl Tabs [Nitrostat] 0.4 mg SL Q5M PRN 12/04/21 [History] Albuterol Inhaler [Ventolin Hfa Inhaler] 2 puff INHALATION RT-TID each 12/07/21 [Rx] Albuterol Inhaler [Ventolin Hfa Inhaler] 2 puff INHALATION RT-TID PRN each 12/07/21 [Rx] Docusate [Colace] 100 mg PO BID cap 12/07/21 [Rx] HYDROcodone/APAP 5-325MG [[place] 5-325] 1 each PO Q6HR PRN #6 tab 12/07/21 [Rx] Tiotropium 2.5 Mcg/Puff [Spiriva Respimat 2.5 Mcg] 2 puff INHALATION RT-DAILY each 12/07/21 [Rx] cefUROXime axetiL [Ceftin] 500 mg PO BID 7 Days #14 tab 12/07/21 [Rx] Follow up Appointment(s)/Referral(s): Lor Deluca MD [Primary Care Provider] - 1-2 days Activity/Diet/Wound Care/Special Instructions: Patient will be going to [facility] bed will be available on Friday Activity as tolerated Continue with consistent carb diet, heart healthy diet Continue to monitor blood sugars before meals and at bedtime Recommend to continue with oral diabetic agents Continue with medications as prescribed Continue with antibiotics twice daily for the next 1 week and then may discontinue Discharge Disposition: TRANSFER TO SNF/ECF
--- NOTE | 2021-12-07 15:12 | P.PN ---
Subjective Progress Note Date: 12/07/21 Principal diagnosis: Covid 19 and UTI Patient is a 65-year-old female presenting to the hospital with generalized weakness unable to get out of her chair did have some URI symptoms tested positive for COVID and did have a positive UA concerning for a urinary tract infection. On today's evaluation that is 12/07/2021, the patient denies having any fever or any chills, the patient is breathing comfortably on room air , the patient denies having any chest pain no worsening cough or sputum production but denies any abdominal pain or diarrhea, feeling slightly better Objective - Vital Signs Vital signs: Vital Signs Temp 97.9 F 12/07/21 10:00 Pulse 73 12/07/21 10:00 Resp 18 12/07/21 10:00 BP 127/74 12/07/21 10:00 Pulse Ox 95 12/07/21 10:00 FiO2 Intake & Output 12/06/21 12/07/21 12/07/21 18:59 06:59 18:59 Output Total 1000 900 Balance -1000 -900 Output: Urine 1000 900 Other: Voiding Method External Catheter External Catheter External Catheter - Exam GENERAL DESCRIPTION: Elderly female lying in bed, no distress. No tachypnea or accessory muscle of respiration use. LUNGS: Unlabored breathing. Clear to auscultation anteriorly. No wheeze or crackle. HEART: S1, S2, regular rate and rhythm. No loud murmur ABDOMEN: Soft, no tenderness , guarding or rigidity, no organomegaly EXTREMITIES: No edema of feet. - Labs CBC & Chem 7: 12/06/21 07:06 12/06/21 07:06 Labs: Abnormal Lab Results - Last 24 Hours (Table) 12/06/21 12/06/21 12/07/21 Range/Units 17:00 20:58 11:53 POC Glucose (mg/dL) 136 H 155 H 156 H (70-110) mg/dL Microbiology - Last 24 Hours (Table) 12/04/21 11:30 Urine Culture - Final Urine,Voided Klebsiella pneumoniae 12/04/21 14:11 Blood Culture - Preliminary Blood No Growth after 48 hours 12/04/21 14:11 Blood Culture - Preliminary Blood No Growth after 48 hours Assessment and Plan (1) COVID-19 Current Visit: Yes Status: Acute Code(s): U07.1 - COVID-19 SNOMED Code(s): 250954475 (2) UTI (urinary tract infection) Current Visit: Yes Status: Acute Code(s): N39.0 - URINARY TRACT INFECTION, SITE NOT SPECIFIED SNOMED Code(s): 66315018 Plan: 1patient presented to hospital with generalized weakness she is likely multifactorial and could be related to the COVID-19 infection as the patient not vaccinated for COVID-19 however the patient currently not hypoxic and the chest x-ray was negative for acute infiltrate treatment will be mostly supportive, malini bello did have a positive UA and some burning of urine likely symptomatic UTI from enteric gram-negative pathogen. 2the patient urine culture had been finalized with Klebsiella which is a sensitive pathogen patient had shown clinical improvement and cefepime she'll finish therapy with oral Ceftin and close outpatient follow-up and discuss with the [facility] PRESENTER for the medical team working on discharge 3- continue supportive care, continue with current supportive treatment for Covid19 infection Time with Patient: Less than 30
--- NOTE | 2021-12-07 15:21 | P.PN ---
Subjective Progress Note Date: 12/07/21 65-year-old female patient with multiple medical problems and comorbidities who came into the emergency department because of generalized weakness. The patient has been feeling weak for the past few days and she has a neighbor that came in to the house and found her and debilitated condition and having difficulty with mobility. The patient normally moves around with help of a walker. She was very weak and she was unable to get out of her bed and for that reason EMS was called to the scene and the patient was brought into the hospital. The patient admitted to have episodes of fever and some scratchiness in the throat and some limited cough. No sinus shortness of breath. No chest pain. No pigmentation. She has chronically his lower extremities and difficulty with mobility and gait. No worsening in lower extremity edema.. No nausea vomiting or diarrhea or abdominal pain. In the emergency department, the patient was evaluated. The patient was found to be febrile with a temperature was 101.4. She was hemodynamically stable and she was not hypotensive.. The patient and indicated that showed a normal sinus rhythm. The white cell count was at 5.2 with hemoglobin 11.3 and a platelet count of 167. Electrodes are all within normal limits. His sodium level was at 135 with a potassium level of 5.1 and a glucose level of 108. The patient had a TSH of 1.1. Albumin with a 3.6 with a total protein of 6.3. Lactic acid level was at 0.7. The patient had a proBNP level of 3280 and a troponin level of less than 0.01. UA was abnormal with multiple white cells and clumps of white cells and the white cell count was 182 and the urine was turbid with +1 protein. The patient also tested positive for COVID 19. Influenza screen was negative. The chest x-ray was essentially unchanged compared to her previous chest x-ray findings and the patient's pulse ox was 96% on room air oxygen. He was hospitalized for underlying UTI and COVID 19 infection intermittently generalized weakness. The patient was started on IV Zosyn. As far as comorbid conditions, the patient was recently hospitalized for a fall and right ankle injury the buffing turner and counter to be not related to any fracture. This was a sprain. She was released to the long-term following that as the patient was unable to bear weight due to pain. She gradually rehabilitated herself. She has paroxysmal atrial fibrillation. She has coronary artery disease multivessel and she is known to have previous non-ST segment elevation myocardial infarction. She has chronic systolic heart failure, previous history of CVA, hypertension, hyperlipidemia, intermittent bronchial asthma, diabetes mellitus type 2, hypothyroidism and stage II chronic kidney disease. She also has an ejection fraction of 40-45% with mild concentric LVH. She has had previous episodes of urinary current urinary tract infection with gram-negative bacteria. The patient is seen today 12/05/2021 in the emergency department still. She is sitting up on the stretcher. Awake and alert in no acute distress. Maintaining O2 saturations in the 90s on room air. Feeling better today compared to yesterday. Chest x-ray reveals some right lower lobe atelectasis. Urine culture pending. White count 3.2. Hemoglobin 12.4. Platelets 152. Sodium 136. Potassium 5.1. BUN 20. Creatinine 1.2. She remains on antibiotics in the form of cefepime. Anticoagulated with Xarelto. Continued on bronchodilators. The patient is seen today 12/06/2021 in follow-up on the regular medical floor. She is currently sitting up in bed. Awake and alert in no acute distress. She is maintaining good O2 saturations in the mid 90s on room air. Afebrile. Hemodynamically stable. Urine cultures positive for gram-negative bacilli. Blood cultures reveal no growth. White count 5.4. Hemoglobin 10.9. Platelets 165. Sodium 137. Potassium 4.6. BUN 27. Creatinine 1.0. Glucose 113. She is continued on antibiotics in the form of cefepime. Anticoagulated with Xarelto. 12/07/2021, condition is essentially unchanged and the patient's respiratory status remains stable on room air oxygenand no manifestations for COVID 19 infection. Patient has Klebsiella pneumoniaurinary tract infection and the patient is currently on IV cefepime.she is on room air oxygen. No new labs from today. Objective - Vital Signs Vital signs: Vital Signs Temp 98.2 F 12/07/21 14:00 Pulse 61 12/07/21 14:00 Resp 18 12/07/21 14:00 BP 130/73 12/07/21 14:00 Pulse Ox 94 L 12/07/21 14:00 FiO2 Intake & Output 12/06/21 12/07/21 12/07/21 18:59 06:59 18:59 Output Total 1000 900 Balance -1000 -900 Output: Urine 1000 900 Other: Voiding Method External Catheter External Catheter External Catheter - Exam Gen: This is a morbidly obese pleasant 65-year-old female. Patient is resting in bed and appears to be comfortable and in no acute distress. The patient is currently on room air oxygen Head exam was generally normal. There was no scleral icterus or corneal arcus. Mucous membranes were moist. HEENT: Head is atraumatic, normocephalic. Pupils equal, round. Sclerae is anicteric. NECK: Supple. No JVD. No lymphadenopathy. No thyromegaly. LUNGS: Clear to auscultation. No wheezes or rhonchi. No intercostal retracti ons. HEART: Regular rate and rhythm. No murmur. ABDOMEN: Soft. Bowel sounds are present. No masses. No tenderness. EXTREMITIES: No pedal edema. No calf tenderness. There is +1 pitting edema lower extremities bilaterally NEUROLOGICAL: Patient is awake, alert and oriented x3. Cranial nerves 2 through 12 are grossly intact. Examination of the skin revealed no evidence of significant rashes, suspicious appearing nevi or other concerning lesions. - Labs CBC & Chem 7: 12/06/21 07:06 12/06/21 07:06 Labs: Abnormal Lab Results - Last 24 Hours (Table) 12/06/21 12/06/21 12/07/21 Range/Units 17:00 20:58 11:53 POC Glucose (mg/dL) 136 H 155 H 156 H (70-110) mg/dL Microbiology - Last 24 Hours (Table) 12/04/21 11:30 Urine Culture - Final Urine,Voided Klebsiella pneumoniae 12/04/21 14:11 Blood Culture - Preliminary Blood No Growth after 48 hours 12/04/21 14:11 Blood Culture - Preliminary Blood No Growth after 48 hours Assessment and Plan Plan: Acute COVID 19 infection without indication for pneumonia. No signs of metastatic distress or hypoxemia. The patient is not vaccinated. There is a first episode of infection with COVID 19. Acute UTI, likely gram-negative bacteria as the patient had frequent UTIs in the past Acute febrile illness secondary to above Generalized weakness secondary to above Recent history of fall and ankle sprain involving the right foot Known history of ischemic cardiomyopathy with systolic heart failure with an ejection fraction of 40-45% Known history of multivessel severe coronary artery disease Paroxysmal atrial fibrillation Previous history of severe anemia secondary to GI blood losses., chronic kidney disease stage II, sees nephrology on a regular basis. history of nephrolithiasis, lithotripsy, and ureteral stent placement. history of paroxysmal atrial fibrillation. Previous ablation. history of hypertension history of hypothyroidism on replacement therapy history of mild intermittent asthma presently inactive history of type 2 diabetes history of dyslipidemia. history of pulmonary embolism. Diabetic peripheral neuropathy Medical debility seconds above-mentioned comorbidities Plan no active COVID 19 manifestation Patient is on room air oxygen Monitor respiratory status complete UTI treatment Continue to coagulation with Xarelto pulmonary and critical care services we'll sign off
[2021-12-07] MEDS: RIVAROXABAN 20 MG TAB PO SCH (17:00)
[2021-12-07 17:33] LABS: Glucose,Whole Blood 102 mg/dL (70-110)
[2021-12-07] MEDS: ATORVASTATIN 40 MG TAB PO SCH (20:44)
[2021-12-07] MEDS ORDERED: IOPAMIDOL CONTRAST (ORAL USE) VIAL PO PRN (21:43)
[2021-12-07 22:12] LABS: Anisocytosis Slight; Basophils # (A) 0.1 k/uL (0-0.2); Basophils % (A) 1 %; Eosinophils # (A) 0.2 k/uL (0-0.7); Eosinophils % (A) 3 %; HCT 38.9 % (34.0-46.0); HGB 11.8 gm/dL (11.4-16.0); Hypochromasia Marked; Lymphocytes # (A) 1.3 k/uL (1.0-4.8); Lymphocytes % (A) 18 %; MCH 26.6 pg (25.0-35.0); MCHC 30.4 g/dL (31.0-37.0); MCV 87.8 fL (80.0-100.0); Mean Platelet Volume 7.2; Monocytes # (A) 0.4 k/uL (0-1.0); Monocytes % (A) 5 %; Neutrophils # (A) 5.1 k/uL (1.3-7.7); Neutrophils % (A) 71 %; Platelet Count 177 k/uL (150-450); RBC 4.43 m/uL (3.80-5.40); RDW 16.7 % (11.5-15.5); WBC 7.2 k/uL (3.8-10.6)
[2021-12-07 22:18] LABS: Glucose,Whole Blood 153 mg/dL (70-110)
[2021-12-07] MEDS: LORATADINE 10 MG TAB PO PRN (23:44)
[2021-12-07] MEDS: PANTOPRAZOLE 40 MG/10 ML VIAL IVP SCH (23:44)
[2021-12-08] MEDS: methocarbamoL 500 MG TAB PO PRN ×3 (02:03→21:26)
[2021-12-08] MEDS: CEFEPIME 2 GM in SODIUM CHLORIDE 0.9% 100 ML IVPB SCH ×2 (02:06→15:24)
--- NOTE | 2021-12-08 02:29 | CT ---
EXAMINATION TYPE: CT ChestAbdPelvis wo con DATE OF EXAM: 12/08/2021 COMPARISON: 08/28/2017) and 01/09/2017 HISTORY: pain CT DLP: 1959.8 mGycm Automated exposure control for dose reduction was used. Images obtained from the thoracic inlet to the floor the pelvis with no contrast. The lungs are clear of consolidation. There is some mild atelectasis and interstitial density at the lung bases. Heart is enlarged. There is small pericardial effusion. No pleural effusion. Liver and spleen are intact. The stomach is intact. There is no evidence of pancreatic mass. There is extensive vascular calcification. There are clips from cholecystectomy. There is no adrenal mass. Kidneys have fairly normal size. No hydronephrosis. There is renal vascular calcification. There is a 3 cm cyst posterior right kidney. No retroperitoneal adenopathy. There are some calcifications in the lower pole left kidney that could be nonobstructing calculi. There is a s vibha 3 mm calculus posterior right kidney. Bladder distends smoothly. No inguinal hernia. No free fl uid in the pelvis. No pelvic mass. There is no mesenteric edema. No ascites or free air. No sign of a bowel obstruction. There are surgi kelly clips in the right mid abdomen. Appendix not seen. The small bowel is not dilated. No mesenteric edema. No ascites. No free air. The thoracic and lumbar vertebra show no compression fracture. There is degenerative spurring in the thoracic and lumbar spine. The bony pelvis is intact. There is some hip joint space narrowing and spu r formation. The shoulder joints show hypertrophic osteoarthritis on the left side. No rib fractures seen. IMPRESSION: Cardiomegaly with small pericardial effusion which appears new compared to 08/28/2017. There is some m ild interstitial infiltrate and atelectasis at the lung bases which is mostly new compared to 01/10/20 17. There are bilateral renal calculi not adversely changed compared to 08/28/2017. No evidence of renal o bstruction. Extensive atherosclerotic vascular calcification. There is clearing of the obstructing ca lculus at the right ureteropelvic junction compared to 2018.
[2021-12-08 05:10] LABS: Anisocytosis Slight; Basophils % (A) 1 %; Eosinophils # (A) 0.1 k/uL (0-0.7); Eosinophils % (A) 2 %; HCT 36.7 % (34.0-46.0); HGB 11.3 gm/dL (11.4-16.0); Hypochromasia Moderate; Lymphocytes # (A) 1.1 k/uL (1.0-4.8); Lymphocytes % (A) 19 %; MCHC 30.8 g/dL (31.0-37.0); MCV 87.6 fL (80.0-100.0); Mean Platelet Volume 7.3; Monocytes # (A) 0.4 k/uL (0-1.0); Monocytes % (A) 6 %; Neutrophils # (A) 4.2 k/uL (1.3-7.7); Neutrophils % (A) 70 %; Platelet Count 160 k/uL (150-450); RBC 4.19 m/uL (3.80-5.40); RDW 16.8 % (11.5-15.5)
[2021-12-08] MEDS: HYDROcodone/APAP 5-325MG 1 EACH TAB PO PRN ×2 (05:53→15:29)
[2021-12-08 07:18] LABS: Glucose,Whole Blood 128 mg/dL (70-110)
[2021-12-08] MEDS: ALBUTEROL HFA INHALER INHALATION SCH ×3 (08:24→19:40)
[2021-12-08] MEDS: TIOTROPIUM 2.5 MCG INHALER INHALATION SCH (08:24)
[2021-12-08] MEDS: LEVOTHYROXINE 125 MCG TAB PO SCH (10:22)
[2021-12-08] MEDS: SPIRONOLACTONE 25 MG TAB PO SCH (10:23)
[2021-12-08] MEDS: LORATADINE 10 MG TAB PO PRN (10:23)
[2021-12-08] MEDS: lisinopriL 5 MG TAB PO SCH (10:23)
[2021-12-08] MEDS: ISOSORBIDE MONONITRATE ER 30 MG TAB.ER.24H PO SCH (10:23)
[2021-12-08] MEDS: GLIMEPIRIDE 2 MG TAB PO SCH (10:23)
[2021-12-08] MEDS: PANTOPRAZOLE 40 MG/10 ML VIAL IVP SCH ×2 (10:23→22:26)
[2021-12-08] MEDS: DOCUSATE 100 MG CAP PO SCH ×2 (10:23→21:27)
[2021-12-08] MEDS: METOPROLOL SUCCINATE (ER) 100 MG TAB.ER.24H PO SCH (10:23)
--- NOTE | 2021-12-08 11:29 | P.GSCN ---
History of Present Illness Consult date: 12/08/21 Reason for Consult: GI bleed History of present illness: 65-year-old female with multiple comorbidities. Was hospitalized because of difficulty standing or ambulating. She was found to be Covid positive. Denies shortness of breath currently. During her hospital stay there was concern for possible GI bleed. Patient states the bleeding is coming from a ulceration on her buttock. She says she has had colonoscopies in the last few years. She was not able to definitively state where or when that was performed. She says she has a history of polyps. She is tolerating regular diet. Denies abdominal pain. Is having pain involving most of her other joints and extremities. Currently there is plans for transfer to [facility] rehab upon discharge. Hemoglobin is stable. She is on Xarelto. Review of Systems The patient denies any acute changes in vision or hearing, no dysphagia or odynophagia, no chest pain or shortness of breath, no dysuria or hematuria, no headache, no runny nose, no melena, no unexplained weight loss Past Medical History Past Medical History: Atrial Fibrillation, Asthma, Coronary Artery Disease (CAD), Heart Failure, CVA/TIA, Diabetes Mellitus, Deep Vein Thrombosis (DVT), Fibromyalgia, Hyperlipidemia, Hypertension, Myocardial Infarction ([place]), Osteoarthritis (OA), Pulmonary Embolus (PE), Skin Disorder, Thyroid Disorder Additional Past Medical History / Comment(s): Obesity with a BMI of 48.4, multivessel coronary artery disease, previous non-ST segment elevation myocardial infarction, cardiomyopathy with impaired ejection fraction of around 40-45%, chronic stage III kidney disease, diabetes mellitus type 2, mild intermittent bronchial asthma, hypertension, hyperlipidemia, chronic stage III kidney disease, peripheral neuropathy, chronic back pain, eczema, sinus headaches, chronic anemia, frequent UTIs, kidney stones, chronic constipation, hypertension, hyperlipidemia, previous history of CVA, diabetes mellitus type 2 Last Myocardial Infarction Date:: UNKNOWN History of Any Multi-Drug Resistant Organisms: ESBL Year Discovered:: 02/28/18 MDRO Source:: ESBL URINE Past Surgical History: Appendectomy, Cardiac Ablation, Cholecystectomy, Heart Catheterization, Heart Catheterization With Stent, Hysterectomy Additional Past Surgical History / Comment(s): PARTIAL HYSTERECTOMY 03/18/14 @ [facility]. CATARACT BLACK. WITH IMPLANTS. HEART CATH X 3 TOTAL 3 STENTS, lithotripsy,kidney stents-since removed. Past Anesthesia/Blood Transfusion Reactions: Motion Sickness Additional Past Anesthesia/Blood Transfusion Reaction / Comm: no hx blood transfusion Date of Last Stent Placement:: UNKNOWN Past Psychological History: Depression Smoking Status: Former smoker Past Alcohol Use History: None Reported Past Drug Use History: None Reported - Past Family History Father Additional Family Medical History / Comment(s): "HARDENEING OF THE ARTERIES AT AGE 41. SMOKED AND DRANK ETOH Mother Family Medical History: Cancer Additional Family Medical History / Comment(s): "cyst that ruptured between bowel and bladder" Medications and Allergies Home Medications Medication Instructions Recorded Confirmed Type Montelukast [Singulair] 10 mg PO DAILY PRN 08/28/17 12/04/21 History Metoprolol Succinate (ER) [Toprol 100 mg PO DAILY 05/03/20 12/04/21 History XL] Rivaroxaban [Xarelto] 20 mg PO W/SUPPER 05/03/20 12/04/21 History Spironolactone [Aldactone] 25 mg PO DAILY 05/03/20 12/04/21 History Aspirin 81 mg PO DAILY chew 05/04/20 12/04/21 Rx lisinopriL [Zestril] 5 mg PO DAILY #30 tab 05/04/20 12/04/21 Rx Acetaminophen Tab [Tylenol] 1,000 mg PO Q6H PRN 05/22/21 12/04/21 History Levothyroxine Sodium [Synthroid] 125 mcg PO AC-KT 05/22/21 12/04/21 History Loratadine [Claritin] 10 mg PO DAILY PRN 05/22/21 12/04/21 History Rosuvastatin [Crestor] 20 mg PO HS 05/22/21 12/04/21 History methocarbamoL [Robaxin] 500 mg PO Q4H PRN 05/22/21 12/04/21 History Glimepiride [Amaryl] 2 mg PO AC-BRKFST 12/04/21 12/04/21 History Isosorbide Mononitrate ER [Imdur] 30 mg PO DAILY 12/04/21 12/04/21 History Nitroglycerin Sl Tabs [Nitrostat] 0.4 mg SL Q5M PRN 12/04/21 12/04/21 History Albuterol Inhaler [Ventolin Hfa 2 puff INHALATION RT-TID each 12/07/21 Rx Inhaler] Albuterol Inhaler [Ventolin Hfa 2 puff INHALATION RT-TID PRN each 12/07/21 Rx Inhaler] Docusate [Colace] 100 mg PO BID cap 12/07/21 Rx HYDROcodone/APAP 5-325MG [[place] 1 each PO Q6HR PRN #6 tab 12/07/21 Rx 5-325] Tiotropium 2.5 Mcg/Puff [Spiriva 2 puff INHALATION RT-DAILY each 12/07/21 Rx Respimat 2.5 Mcg] cefUROXime axetiL [Ceftin] 500 mg PO BID 7 Days #14 tab 12/07/21 Rx Allergies Allergy/AdvReac Type Severity Reaction Status Date / Time grass pollen Allergy Sinus Verified 12/04/21 13:45 latex Allergy Rash/Hives Verified 12/04/21 13:45 mold Allergy Sinus Verified 12/04/21 13:45 pollen extracts Allergy Sinus Verified 12/04/21 13:45 tree and shrub pollen Allergy Sinus Verified 12/04/21 13:45 Milk Containing Products AdvReac THRUSH Verified 12/04/21 13:45 [Dairy] Tetracyclines AdvReac YEAST Verified 12/04/21 13:45 INFECTION- PREFERS NOT TO TAKE ENVIRONMENTAL ALLERGIES Allergy SINUS Uncoded 12/04/21 13:45 SYMPTOMS-GRASS TREES,DUST,POLLENS,MOLD Surgical - Exam Vital Signs Temp Pulse Resp BP Pulse Ox 101.4 F H 89 18 109/59 96 12/04/21 10:13 12/04/21 10:13 12/04/21 10:13 12/04/21 10:13 12/04/21 10:13 Physical exam: General: Well-developed, well-nourished HEENT: Normocephalic, sclerae nonicteric Abdomen: Nontender, nondistended Extremities: No edema Neuro: Alert and oriented Patient with a 1 cm superficial skin ulceration left buttock, no evidence of hemorrhoids, digital rectal examination not performed Results - Labs 12/08/21 04:23 12/06/21 07:06 Abnormal Lab Results - Last 24 Hours (Table) 12/07/21 12/07/21 12/07/21 Range/Units 11:53 21:44 22:17 Hgb (11.4-16.0) gm/dL MCHC 30.4 L (31.0-37.0) g/dL RDW 16.7 H (11.5-15.5) % POC Glucose (mg/dL) 156 H 153 H (70-110) mg/dL 12/08/21 12/08/21 Range/Units 04:23 07:14 Hgb 11.3 L (11.4-16.0) gm/dL MCHC 30.8 L (31.0-37.0) g/dL RDW 16.8 H (11.5-15.5) % POC Glucose (mg/dL) 128 H (70-110) mg/dL Microbiology - Last 24 Hours (Table) 12/04/21 14:11 Blood Culture - Preliminary Blood No Growth after 72 hours 12/04/21 14:11 Blood Culture - Preliminary Blood No Growth after 72 hours Assessment and Plan (1) GI bleed Narrative/Plan: 65-year-old female with possible GI bleed. I have asked the nursing staff to monitor her stools at this time. Continue diet as tolerated for now. Looking back her last upper and lower endoscopy on the computer at least was in 2018 and that was normal however states she has had 1 more recent than that. Given the description would continue anticoagulation at this time. We'll follow. Current Visit: No Status: Acute Code(s): K92.2 - GASTROINTESTINAL HEMORRHAGE, UNSPECIFIED SNOMED Code(s): 52096621
[2021-12-08 11:59] LABS: Glucose,Whole Blood 126 mg/dL (70-110)
--- NOTE | 2021-12-08 13:46 | P.DS ---
Providers Date of admission: 12/04/21 13:45 Attending physician: Yoselin Caballero Consults: 12/04/21 14:58 Consult Physician Routine Consulting Provider: Jason Olivo Consult Reason/Comments: COVID, WEAKNESS Do you want consulting provider notified?: Yes 12/04/21 14:59 Consult Physician Routine Consulting Provider: Diann Kemp Consult Reason/Comments: ASTHMA Do you want consulting provider notified?: Yes 12/08/21 07:33 Consult Physician Urgent Consulting Provider: James Recinos Consult Reason/Comments: GI bleed Do you want consulting provider notified?: Yes, Notify in am Primary care physician: Lor Deluca [place] Hospital Course: Diagnosis Final diagnosis Acute urinary tract infection, present on admission with culture showing Klebsiella pneumonia Acute COVID-19 infection Dehydration Weakness with gait dysfunction 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 Patient will follow-up with Dr. Deluca in the outpatient setting upon discharge. Patient is to continue with oral antibiotics in the form of Ceftin 500 mg twice daily for the next 1 week and then may discontinue. Total number of minutes spent on visit greater than 35. Hospital course This is a 65-year-old female who was recently admitted with increased weakness along with acute urinary tract infection and also found to have COVID-19 infection and some dehydration and is being closely monitored. Pulmonary and infectious disease following and patient continues to be on room air with no symptoms of COVID-19 pneumonia. Patient is continued on inhalers and recommend continue. Patient also with history of diabetes on oral diabetic agents and recommend to resume and monitor Accu-Cheks closely before meals and at bedtime and may use sliding scale if needed if blood sugars continue to be elevated. Patient is anticoagulated with Xarelto and will continue and also has been maintained on IV cefepime awaiting for cultures are finalized. Urine cultures finalized showing Klebsiella pneumonia with sensitivities and will continue on oral Ceftin 500 mg twice daily for the next 1 week per infectious disease recommendations. Patient did have chest abdomen pelvis CT completed showing cardiomegaly with small pericardial effusion which appears new from 2018, and mild interstitial infiltrate and atelectasis at lung base new from 2017. She did receive a dose of IV lasix for this and reports breathing better. CT also showing clearing fot he obstructing calculus at the right ureteropelvic junction compared to 2018. She has also been evaluated by general surgery for possible rectal bleeding although patient reports bleeding is coming from ulceration on her back. She has had recent EGD colonoscopy which are negative that has been reviewed by general surgeon. Ok to continue xarelto. Patient continues with significant weakness and has been evaluated by physical therapy recommending subacute rehab. Patient is positive for Covid and will need to go to a Covid hub [facility] on discharge. Case management following an there will be a bed available on 12/08/2021 at [facility] and will be discharged. Currently no reports of chest pain, shortness of breath, or palpitations. Patient is afebrile. No reports of nausea or vomiting and patient is tolerating diet. Patient will be going to [facility]. Patient instructed to follow-up with her primary care provider Dr. Deluca in the outpatient setting once discharged from [facility]. She will have follow up labs in 2 to 3 days outpatient. Continues on room air. Physical exam: Gen: This is a 65-year-old female awake, alert and oriented 3, well-developed, well-nourished, morbidly obese. HEENT: Head is atraumatic, normocephalic. Pupils equal, round. Sclerae is anicteric. NECK: Supple. No JVD. No lymphadenopathy. No thyromegaly. LUNGS: Diminished breath sounds bilaterally with some scattered rhonchi noted. No intercostal retractions. HEART: S1, S2 are muffled ABDOMEN: Soft. Obese Bowel sounds are present. No masses. No tenderness. EXTREMITIES: No pedal edema. No calf tenderness. NEUROLOGICAL: Patient is awake, alert and oriented x3. Cranial nerves 2 through 12 are grossly intact. Diffuse weakness The impression and plan of care has been dictated by Taya Gee, Nurse Practitioner as directed. Dr. Paul MD I have performed a history and physical examination and medical decision making of this patient, discussed the same with the dictator, and agree with the dictators assessment and plan as written, documented as a scribe. Based on total visit time, I have performed more than 50% of this visit. Patient Condition at Discharge: Stable Plan - Discharge Summary Discharge Rx Participant: No New Discharge Prescriptions: New HYDROcodone/APAP 5-325MG [C[place] 5-325] 1 each PO Q6HR PRN #6 tab PRN Reason: Pain cefUROXime axetiL [Ceftin] 500 mg PO BID 7 Days #14 tab Docusate [Colace] 100 mg PO BID cap Tiotropium 2.5 Mcg/Puff [Spiriva Respimat 2.5 Mcg] 2 puff INHALATION RT-DAILY each Albuterol Inhaler [Ventolin Hfa Inhaler] 2 puff INHALATION RT-TID each Albuterol Inhaler [Ventolin Hfa Inhaler] 2 puff INHALATION RT-TID PRN each PRN Reason: Shortness Of Breath Or Wheezing Continue Montelukast [Singulair] 10 mg PO DAILY PRN PRN Reason: Allergy Symptoms Metoprolol Succinate (ER) [Toprol XL] 100 mg PO DAILY Rivaroxaban [Xarelto] 20 mg PO W/SUPPER Spironolactone [Aldactone] 25 mg PO DAILY Aspirin 81 mg PO DAILY chew lisinopriL [Zestril] 5 mg PO DAILY #30 tab Acetaminophen Tab [Tylenol] 1,000 mg PO Q6H PRN PRN Reason: Pain Levothyroxine Sodium [Synthroid] 125 mcg PO AC-BRKFST Isosorbide Mononitrate ER [Imdur] 30 mg PO DAILY Loratadine [Claritin] 10 mg PO DAILY PRN PRN Reason: Allergy Symptoms methocarbamoL [Robaxin] 500 mg PO Q4H PRN PRN Reason: Muscle Spasm Rosuvastatin [Crestor] 20 mg PO HS Nitroglycerin Sl Tabs [Nitrostat] 0.4 mg SL Q5M PRN PRN Reason: Chest Pain Glimepiride [Amaryl] 2 mg PO AC-BRKFST Discharge Medication List Montelukast [Singulair] 10 mg PO DAILY PRN 08/28/17 [History] Metoprolol Succinate (ER) [Toprol XL] 100 mg PO DAILY 05/03/20 [History] Rivaroxaban [Xarelto] 20 mg PO W/SUPPER 05/03/20 [History] Spironolactone [Aldactone] 25 mg PO DAILY 05/03/20 [History] Aspirin 81 mg PO DAILY chew 05/04/20 [Rx] lisinopriL [Zestril] 5 mg PO DAILY #30 tab 05/04/20 [Rx] Acetaminophen Tab [Tylenol] 1,000 mg PO Q6H PRN 05/22/21 [History] Levothyroxine Sodium [Synthroid] 125 mcg PO AC-KFST 05/22/21 [History] Loratadine [Claritin] 10 mg PO DAILY PRN 05/22/21 [History] Rosuvastatin [Crestor] 20 mg PO HS 05/22/21 [History] methocarbamoL [Robaxin] 500 mg PO Q4H PRN 05/22/21 [History] Glimepiride [Amaryl] 2 mg PO AC-KFST 12/04/21 [History] Isosorbide Mononitrate ER [Imdur] 30 mg PO DAILY 12/04/21 [History] Nitroglycerin Sl Tabs [Nitrostat] 0.4 mg SL Q5M PRN 12/04/21 [History] Albuterol Inhaler [Ventolin Hfa Inhaler] 2 puff INHALATION RT-TID each 12/07/21 [Rx] Albuterol Inhaler [Ventolin Hfa Inhaler] 2 puff INHALATION RT-TID PRN each 12/07/21 [Rx] Docusate [Colace] 100 mg PO BID cap 12/07/21 [Rx] HYDROcodone/APAP 5-325MG [C[place]ber[place]on 5-325] 1 each PO Q6HR PRN #6 tab 12/07/21 [Rx] Tiotropium 2.5 Mcg/Puff [Spiriva Respimat 2.5 Mcg] 2 puff INHALATION RT-DAILY each 12/07/21 [Rx] cefUROXime axetiL [Ceftin] 500 mg PO BID 7 Days #14 tab 12/07/21 [Rx] Follow up Appointment(s)/Referral(s): Lor Deluca MD [Primary Care Provider] - 1-2 days Ambulatory/Diagnostic Orders: Basic Metabolic Panel [LAB.AMB] Time Frame: 3 Days, Location: None Selected Complete Blood Count w/diff [LAB.AMB] Time Frame: 3 Days, Location: None Selected Activity/Diet/Wound Care/Special Instructions: Patient will be going to [facility] bed will be available on Friday Activity as tolerated Continue with consistent carb diet, heart healthy diet Continue to monitor blood sugars before meals and at bedtime Recommend to continue with oral diabetic agents Continue with medications as prescribed Continue with antibiotics twice daily for the next 1 week and then may discontinue Discharge Disposition: TRANSFER TO SNF/ECF
[2021-12-08 16:19] LABS: Glucose,Whole Blood 111 mg/dL (70-110)
[2021-12-08 20:42] LABS: Anisocytosis Slight; Basophils # (A) 0.1 k/uL (0-0.2); Basophils % (A) 2 %; Eosinophils # (A) 0.2 k/uL (0-0.7); Eosinophils % (A) 3 %; HCT 35.2 % (34.0-46.0); HGB 10.8 gm/dL (11.4-16.0); Hypochromasia Moderate; Lymphocytes # (A) 1.1 k/uL (1.0-4.8); Lymphocytes % (A) 21 %; MCH 26.6 pg (25.0-35.0); MCHC 30.7 g/dL (31.0-37.0); MCV 86.7 fL (80.0-100.0); Mean Platelet Volume 7.1; Monocytes # (A) 0.4 k/uL (0-1.0); Monocytes % (A) 7 %; Neutrophils # (A) 3.4 k/uL (1.3-7.7); Neutrophils % (A) 66 %; Platelet Count 153 k/uL (150-450); RBC 4.06 m/uL (3.80-5.40); RDW 16.6 % (11.5-15.5); WBC 5.2 k/uL (3.8-10.6)
[2021-12-08 20:59] LABS: Glucose,Whole Blood 92 mg/dL (70-110)
[2021-12-08] MEDS: ATORVASTATIN 40 MG TAB PO SCH (21:27)
[2021-12-09] MEDS: HYDROcodone/APAP 5-325MG 1 EACH TAB PO PRN (00:49)
[2021-12-09] MEDS: CEFEPIME 2 GM in SODIUM CHLORIDE 0.9% 100 ML IVPB SCH ×2 (01:23→12:42)
[2021-12-09] MEDS: methocarbamoL 500 MG TAB PO PRN ×2 (01:40→20:44)
[2021-12-09] MEDS: KETOROLAC 15 MG/ML 1 ML VIAL IVP PRN ×3 (01:40→22:29)
[2021-12-09 01:41] LABS: Anisocytosis Slight; Basophils % (A) 1 %; Eosinophils # (A) 0.2 k/uL (0-0.7); Eosinophils % (A) 4 %; HCT 38.6 % (34.0-46.0); HGB 11.6 gm/dL (11.4-16.0); Hypochromasia Marked; Lymphocytes # (A) 1.2 k/uL (1.0-4.8); Lymphocytes % (A) 21 %; MCH 26.5 pg (25.0-35.0); MCV 88.3 fL (80.0-100.0); Mean Platelet Volume 7.4; Monocytes # (A) 0.4 k/uL (0-1.0); Monocytes % (A) 7 %; Neutrophils # (A) 3.9 k/uL (1.3-7.7); Neutrophils % (A) 66 %; Platelet Count 136 k/uL (150-450); RBC 4.37 m/uL (3.80-5.40); RDW 16.7 % (11.5-15.5); WBC 5.9 k/uL (3.8-10.6)
[2021-12-09 07:27] LABS: Glucose,Whole Blood 77 mg/dL (70-110)
[2021-12-09] MEDS: DOCUSATE 100 MG CAP PO SCH ×2 (09:35→20:44)
[2021-12-09] MEDS: LORATADINE 10 MG TAB PO PRN (09:35)
[2021-12-09] MEDS: lisinopriL 5 MG TAB PO SCH (09:35)
[2021-12-09] MEDS: ISOSORBIDE MONONITRATE ER 30 MG TAB.ER.24H PO SCH (09:35)
[2021-12-09] MEDS: METOPROLOL SUCCINATE (ER) 100 MG TAB.ER.24H PO SCH (09:35)
[2021-12-09] MEDS: LEVOTHYROXINE 125 MCG TAB PO SCH (09:35)
[2021-12-09] MEDS: GLIMEPIRIDE 2 MG TAB PO SCH (09:35)
[2021-12-09] MEDS: SPIRONOLACTONE 25 MG TAB PO SCH (09:35)
[2021-12-09] MEDS: PANTOPRAZOLE 40 MG/10 ML VIAL IVP SCH ×2 (09:37→22:28)
[2021-12-09] MEDS: TIOTROPIUM 2.5 MCG INHALER INHALATION SCH (09:39)
[2021-12-09] MEDS: ALBUTEROL HFA INHALER INHALATION SCH ×3 (09:39→20:22)
[2021-12-09 11:18] LABS: Glucose,Whole Blood 95 mg/dL (70-110)
--- NOTE | 2021-12-09 11:55 | P.PN ---
Subjective Progress Note Date: 12/09/21 Principal diagnosis: Rectal bleeding Patient has complaints of back pain and neck pain. Her shoulder hurts as well. Denies abdominal discomfort. No rectal bleeding since yesterday. Objective - Vital Signs Vital signs: Vital Signs Temp 97.9 F 12/09/21 10:00 Pulse 70 12/09/21 10:00 Resp 17 12/09/21 06:09 BP 86/46 12/09/21 10:00 Pulse Ox 95 12/09/21 10:00 FiO2 Intake & Output 12/08/21 12/09/21 12/09/21 18:59 06:59 18:59 Intake Total 100 Output Total 800 Balance 100 -800 Intake: Intake, IV Titration 100 Amount Cefepime 2 gm In Sodium 100 Chloride 0.9% 100 ml @ 25 mls/hr IVPB Q12H [facility] Rx# :[id number] Output: Urine 800 Other: Voiding Method Diaper Diaper Incontinent Incontinent External Catheter # Voids 2 - Exam Abdomen: Soft, nontender, nondistended - Labs CBC & Chem 7: 12/09/21 01:24 12/06/21 07:06 Labs: Abnormal Lab Results - Last 24 Hours (Table) 12/08/21 12/08/21 12/08/21 Range/Units 11:58 16:17 20:00 Hgb 10.8 L (11.4-16.0) gm/dL MCHC 30.7 L (31.0-37.0) g/dL RDW 16.6 H (11.5-15.5) % Plt Count (150-450) k/uL POC Glucose (mg/dL) 126 H 111 H (70-110) mg/dL 12/09/21 Range/Units 01:24 Hgb (11.4-16.0) gm/dL MCHC 30.0 L (31.0-37.0) g/dL RDW 16.7 H (11.5-15.5) % Plt Count 136 L (150-450) k/uL POC Glucose (mg/dL) (70-110) mg/dL Microbiology - Last 24 Hours (Table) 12/04/21 14:11 Blood Culture - Preliminary Blood No Growth after 96 hours 12/04/21 14:11 Blood Culture - Preliminary Blood No Growth after 96 hours Assessment and Plan (1) GI bleed Narrative/Plan: Patient without any further bleeding. Suspect this may have been related to the left buttock wound. Continue diet. Will follow. Current Visit: No Status: Acute Code(s): K92.2 - GASTROINTESTINAL HEMORRHAGE, UNSPECIFIED SNOMED Code(s): 84208421
[2021-12-09 12:12] LABS: Basophils # (A) 0.03 X 10*3/uL (0.00-0.10); Basophils % (A) 0.5 %; Eosinophils # (A) 0.28 X 10*3/uL (0.04-0.35); Eosinophils % (A) 4.9 %; HCT 37.2 % (37.2-46.3); HGB 11.3 g/dL (12.0-15.0); Immature Grans, Automated 0.9 %; Lymphocytes # (A) 1.56 X 10*3/uL (0.90-5.00); Lymphocytes % (A) 27.1 %; MCH 25.9 pg (27.0-32.0); MCHC 30.4 g/dL (32.0-37.0); MCV 85.3 fL (80.0-97.0); Mean Platelet Volume 9.3 fL (9.5-12.2); Monocytes # (A) 0.69 X 10*3/uL (0.20-1.00); NRBC Per 100 WBC 0 /100 WBCS (0.0-0.0); Neutrophils # (A) 3.14 X 10*3/uL (1.80-7.70); Neutrophils % (A) 54.6 %; Platelet Count 120 X 10*3/uL (140-440); RBC 4.36 X 10*6/uL (4.10-5.20); RDW 17.2 % (11.5-14.5); WBC 5.75 X 10*3/uL (4.50-10.00)
[2021-12-09 15:00] LABS: Anisocytosis Slight; Basophils # (A) 0.1 k/uL (0-0.2); Basophils % (A) 1 %; Eosinophils # (A) 0.2 k/uL (0-0.7); Eosinophils % (A) 4 %; HCT 37.5 % (34.0-46.0); HGB 11.5 gm/dL (11.4-16.0); Hypochromasia Moderate; Lymphocytes # (A) 1.1 k/uL (1.0-4.8); Lymphocytes % (A) 20 %; MCH 26.4 pg (25.0-35.0); MCHC 30.6 g/dL (31.0-37.0); MCV 86.3 fL (80.0-100.0); Mean Platelet Volume 7.1; Monocytes # (A) 0.4 k/uL (0-1.0); Monocytes % (A) 7 %; Neutrophils # (A) 3.8 k/uL (1.3-7.7); Neutrophils % (A) 67 %; Platelet Count 152 k/uL (150-450); RBC 4.34 m/uL (3.80-5.40); RDW 16.6 % (11.5-15.5); WBC 5.7 k/uL (3.8-10.6)
[2021-12-09 16:17] LABS: Glucose,Whole Blood 118 mg/dL (70-110)
[2021-12-09 19:50] LABS: Anisocytosis Slight; Basophils % (A) 1 %; Eosinophils # (A) 0.2 k/uL (0-0.7); Eosinophils % (A) 4 %; HCT 37.1 % (34.0-46.0); HGB 11.3 gm/dL (11.4-16.0); Hypochromasia Moderate; Lymphocytes # (A) 1.4 k/uL (1.0-4.8); Lymphocytes % (A) 28 %; MCH 26.4 pg (25.0-35.0); MCHC 30.4 g/dL (31.0-37.0); MCV 86.8 fL (80.0-100.0); Mean Platelet Volume 7.2; Monocytes # (A) 0.4 k/uL (0-1.0); Monocytes % (A) 9 %; Neutrophils # (A) 2.8 k/uL (1.3-7.7); Neutrophils % (A) 57 %; Platelet Count 141 k/uL (150-450); RBC 4.28 m/uL (3.80-5.40); RDW 16.5 % (11.5-15.5); WBC 4.9 k/uL (3.8-10.6)
[2021-12-09 20:21] LABS: Glucose,Whole Blood 83 mg/dL (70-110)
[2021-12-09] MEDS: ATORVASTATIN 40 MG TAB PO SCH (20:43)
--- NOTE | 2021-12-09 20:51 | P.PN ---
Subjective Progress Note Date: 12/08/21 Principal diagnosis: Covid 19 and UTI Patient is a 65-year-old female presenting to the hospital with generalized weakness unable to get out of her chair did have some URI symptoms tested positive for COVID and did have a positive UA concerning for a urinary tract infection. On today's evaluation that is 12/08/2021, the patient remains to be afebrile, the patient is breathing comfortably on room air , the patient denies any worsening cough or sputum production, the patient denies any abdominal pain was complaining of some bleeding per rectum for which a general surgery has been consulted Objective - Vital Signs Vital signs: Vital Signs Temp 98.0 F 12/08/21 14:00 Pulse 73 12/08/21 14:00 Resp 20 12/08/21 05:44 BP 101/67 12/08/21 14:00 Pulse Ox 95 12/08/21 14:00 FiO2 Intake & Output 12/07/21 12/08/21 12/08/21 18:59 06:59 18:59 Output Total 500 1000 Balance -500 -1000 Output: Urine 500 1000 Other: Voiding Method External Catheter External Catheter # Voids 4 - Exam GENERAL DESCRIPTION: Elderly female lying in bed, no distress. No tachypnea or accessory muscle of respiration use. LUNGS: Unlabored breathing. Clear to auscultation anteriorly. No wheeze or crackle. HEART: S1, S2, regular rate and rhythm. No loud murmur ABDOMEN: Soft, no tenderness , guarding or rigidity, no organomegaly EXTREMITIES: No edema of feet. - Labs CBC & Chem 7: 12/09/21 19:18 12/06/21 07:06 Labs: Abnormal Lab Results - Last 24 Hours (Table) 12/07/21 12/07/21 12/08/21 Range/Units 21:44 22:17 04:23 Hgb 11.3 L (11.4-16.0) gm/dL MCHC 30.4 L 30.8 L (31.0-37.0) g/dL RDW 16.7 H 16.8 H (11.5-15.5) % POC Glucose (mg/dL) 153 H (70-110) mg/dL 12/08/21 12/08/21 Range/Units 07:14 11:58 Hgb (11.4-16.0) gm/dL MCHC (31.0-37.0) g/dL RDW (11.5-15.5) % POC Glucose (mg/dL) 128 H 126 H (70-110) mg/dL Microbiology - Last 24 Hours (Table) 12/04/21 14:11 Blood Culture - Preliminary Blood No Growth after 72 hours 12/04/21 14:11 Blood Culture - Preliminary Blood No Growth after 72 hours Assessment and Plan (1) COVID-19 Current Visit: Yes Status: Acute Code(s): U07.1 - COVID-19 SNOMED Code(s): 227374412 (2) UTI (urinary tract infection) Current Visit: Yes Status: Acute Code(s): N39.0 - URINARY TRACT INFECTION, SITE NOT SPECIFIED SNOMED Code(s): 39897861 Plan: 1patient presented to hospital with generalized weakness she is likely multi factorial and could be related to the COVID-19 infection as the patient not vaccinated for COVID-19 however the patient currently not hypoxic and the chest x-ray was negative for acute infiltrate treatment will be mostly supportive, patient did have a positive UA and some burning of urine likely symptomatic UTI from enteric gram-negative pathogen. 2the patient urine culture had been finalized with Klebsiella which is a sensitive pathogen patient had shown clinical improvement and cefepime she'll finish therapy with oral antibiotics 3- patient to continue supportive care for Covid19 infection Time with Patient: Less than 30
--- NOTE | 2021-12-09 20:52 | P.PN ---
Subjective Progress Note Date: 12/09/21 Principal diagnosis: Covid 19 and UTI Patient is a 65-year-old female presenting to the hospital with generalized weakness unable to get out of her chair did have some URI symptoms tested positive for COVID and did have a positive UA concerning for a urinary tract infection. On today's evaluation that is 12/09/2021, the patient continues to be afebrile, the patient is breathing comfortably on room air , the patient denies any worsening cough or sputum production, the patient denies any abdominal pain , no further bleeding per rectum has been complaining of pain in the back shoulder area Objective - Vital Signs Vital signs: Vital Signs Temp 97.7 F 12/09/21 14:00 Pulse 94 12/09/21 14:00 Resp 20 12/09/21 14:00 BP 108/74 12/09/21 14:00 Pulse Ox 94 L 12/09/21 14:00 FiO2 Intake & Output 12/08/21 12/09/21 12/09/21 18:59 06:59 18:59 Intake Total 100 100 Output Total 800 Balance 100 -800 100 Intake: Intake, IV Titration 100 100 Amount Cefepime 2 gm In Sodium 100 100 Chloride 0.9% 100 ml @ 25 mls/hr IVPB Q12H [facility] Rx# :[id number] Output: Urine 800 Other: Voiding Method Diaper Diaper External Catheter Incontinent Incontinent External Catheter # Voids 2 - Exam GENERAL DESCRIPTION: Elderly female lying in bed, no distress. No tachypnea or accessory muscle of respiration use. LUNGS: Unlabored breathing. Clear to auscultation anteriorly. No wheeze or crackle. HEART: S1, S2, regular rate and rhythm. No loud murmur ABDOMEN: Soft, no tenderness , guarding or rigidity, no organomegaly EXTREMITIES: No edema of feet. - Labs CBC & Chem 7: 12/09/21 19:18 12/06/21 07:06 Labs: Abnormal Lab Results - Last 24 Hours (Table) 12/08/21 12/09/21 12/09/21 Range/Units 20:00 01:24 08:50 Hgb 10.8 L 11.3 L (11.4-16.0) gm/dL MCH 25.9 L (27.0-32.0) pg MCHC 30.7 L 30.0 L 30.4 L (31.0-37.0) g/dL RDW 16.6 H 16.7 H 17.2 H (11.5-15.5) % Plt Count 136 L 120 L (150-450) k/uL MPV 9.3 L (9.5-12.2) fL Immature Gran # 0.05 H (0.00-0.04) X 10*3/uL POC Glucose (mg/dL) (70-110) mg/dL 12/09/21 12/09/21 Range/Units 14:23 16:15 Hgb (11.4-16.0) gm/dL MCH (27.0-32.0) pg MCHC 30.6 L (31.0-37.0) g/dL RDW 16.6 H (11.5-15.5) % Plt Count (150-450) k/uL MPV (9.5-12.2) fL Immature Gran # (0.00-0.04) X 10*3/uL POC Glucose (mg/dL) 118 H (70-110) mg/dL Microbiology - Last 24 Hours (Table) 12/04/21 14:11 Blood Culture - Preliminary Blood No Growth after 120 hours 12/04/21 14:11 Blood Culture - Preliminary Blood No Growth after 120 hours Assessment and Plan (1) COVID-19 Current Visit: Yes Status: Acute Code(s): U07.1 - COVID-19 SNOMED Code(s): 325291131 (2) UTI (urinary tract infection) Current Visit: Yes Status: Acute Code(s): N39.0 - URINARY TRACT INFECTION, SITE NOT SPECIFIED SNOMED Code(s): 56106651 Plan: 1patient presented to hospital with generalized weakness she is likely multifactorial and could be related to the COVID-19 infection as the patient not vaccinated for COVID-19 however the patient currently not hypoxic and the chest x-ray was negative for acute infiltrate treatment will be mostly supportive, patient did have a positive UA and some burning of urine likely symptomatic UTI from enteric gram-negative pathogen. 2the patient urine culture had been finalized with Klebsiella which is a sensitive pathogen patient antibiotics will be switched over to Cipro to finish a course of therapy
[2021-12-09] MEDS: CIPROFLOXACIN HCL 500 MG TAB PO SCH (22:28)
[2021-12-09] MEDS ORDERED: traMADol 50 MG TAB PO PRN (23:10)
--- NOTE | 2021-12-09 23:17 | P.PN ---
Subjective Progress Note Date: 12/09/21 This is a 65 year old female who presents with increased weakness and acute UTI with klebsiella pneumonia, She is found to be positive for COVID. Currently pending ECF placement at [facility] and they did not have bed available yesterday for placement. General surgery is following for rule out GI bleed. Ok to continue on xarelto with close monitoring of hemoglobin and evidence for acute rectal bleeding. She does continue with diffuse generalized weakness and complains of generalized aches and pains, she does need encouragement to participate in ADLs and mobility. She remains mostly on bedrest. HGB today 11.6. Patient is afebrile, heart rate 65, blood pressure 119/72, 95% room air. 12/09/2021 Patient evaluated today resting in bed. She continues to complain of generalized pain and also to her neck and left arm. She is being repositioned in bed and needs encouragement to participate in her ADLs. No reports of rectal bleeding, she does have found to left buttock. She has hgb stable today at 11.3. blood glucose within normal limits. She has been transitioned to oral antibiotics for UTI. Continues on room air. Pain management with norco which will be increased to 7.5 mg today, also on IV toradol Q6h, will add ultram as well. Pending ECF bed for discharge. Review of Systems Constitutional: Denied any fatigue denied any fever. Cardio vascular: denied any chest pain, palpitations Gastrointestinal: denied any nausea, vomiting, diarrhea Pulmonary: Denied any shortness of breath cough Neurologic denied any new focal deficits All inpatient medications were reviewed and appropriate changes in these medications as dictated in the interval history and assessment and plan. PHYSICAL EXAMINATION: GENERAL: The patient is alert and oriented x3, not in any acute distress. Well developed, well nourished. HEENT: Pupils are round and equally reacting to light. EOMI. No scleral icterus. No conjunctival pallor. Normocephalic, atraumatic. No pharyngeal erythema. No thyromegaly. CARDIOVASCULAR: S1 and S2 present. No murmurs, rubs, or gallops. PULMONARY: Chest is clear to auscultation, no wheezing or crackles. ABDOMEN: Soft, nontender, nondistended, normoactive bowel sounds. No palpable organomegaly. MUSCULOSKELETAL: No joint swelling or deformity. EXTREMITIES: No cyanosis, clubbing, or pedal edema. NEUROLOGICAL: Gross neurological examination did not reveal any focal deficits. Generalized weakness SKIN: No rashes. 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 Discharge to [facility] pending when bed available at [facility] The impression and plan of care has been dictated by Taya Gee, Nurse Practitioner as directed. Dr. Paul MD I have performed a history and physical examination and medical decision making of this patient, discussed the same with the dictator, and agree with the dictators assessment and plan as written, documented as a scribe. Based on total visit time, I have performed more than 50% of this visit. Objective - Vital Signs Vital signs: Vital Signs Temp 98.4 F 12/09/21 06:09 Pulse 65 12/09/21 06:09 Resp 17 12/09/21 06:09 BP 119/72 12/09/21 06:09 Pulse Ox 95 12/09/21 06:09 FiO2 Intake & Output 12/08/21 12/09/21 12/09/21 18:59 06:59 18:59 Intake Total 100 Output Total 800 Balance 100 -800 Intake: Intake, IV Titration 100 Amount Cefepime 2 gm In Sodium 100 Chloride 0.9% 100 ml @ 25 mls/hr IVPB Q12H [facility] Rx# :[id number] Output: Urine 800 Other: Voiding Method Diaper Diaper Incontinent Incontinent External Catheter # Voids 2 - Labs CBC & Chem 7: 12/09/21 19:18 12/06/21 07:06 Labs: Abnormal Lab Results - Last 24 Hours (Table) 12/08/21 12/08/21 12/08/21 Range/Units 11:58 16:17 20:00 Hgb 10.8 L (11.4-16.0) gm/dL MCHC 30.7 L (31.0-37.0) g/dL RDW 16.6 H (11.5-15.5) % Plt Count (150-450) k/uL POC Glucose (mg/dL) 126 H 111 H (70-110) mg/dL 12/09/21 Range/Units 01:24 Hgb (11.4-16.0) gm/dL MCHC 30.0 L (31.0-37.0) g/dL RDW 16.7 H (11.5-15.5) % Plt Count 136 L (150-450) k/uL POC Glucose (mg/dL) (70-110) mg/dL Microbiology - Last 24 Hours (Table) 12/04/21 14:11 Blood Culture - Preliminary Blood No Growth after 96 hours 12/04/21 14:11 Blood Culture - Preliminary Blood No Growth after 96 hours Assessment and Plan Time with Patient: Less than 30
[2021-12-10 02:47] LABS: Anisocytosis Slight; Basophils % (A) 1 %; Eosinophils # (A) 0.2 k/uL (0-0.7); Eosinophils % (A) 4 %; HCT 37.3 % (34.0-46.0); HGB 11.3 gm/dL (11.4-16.0); Hypochromasia Moderate; Lymphocytes # (A) 1.1 k/uL (1.0-4.8); Lymphocytes % (A) 24 %; MCH 26.1 pg (25.0-35.0); MCHC 30.2 g/dL (31.0-37.0); MCV 86.5 fL (80.0-100.0); Mean Platelet Volume 7.5; Monocytes # (A) 0.3 k/uL (0-1.0); Monocytes % (A) 7 %; Neutrophils % (A) 63 %; Platelet Count 128 k/uL (150-450); RBC 4.32 m/uL (3.80-5.40); RDW 16.6 % (11.5-15.5); WBC 4.8 k/uL (3.8-10.6)
[2021-12-10] MEDS: HYDROcodone/APAP 7.5-325MG 1 EACH TAB PO PRN ×3 (05:43→21:05)
[2021-12-10 07:01] LABS: Glucose,Whole Blood 78 mg/dL (70-110)
[2021-12-10] MEDS: TIOTROPIUM 2.5 MCG INHALER INHALATION SCH (08:22)
[2021-12-10] MEDS: ALBUTEROL HFA INHALER INHALATION SCH ×3 (08:22→20:29)
[2021-12-10] MEDS: PANTOPRAZOLE 40 MG/10 ML VIAL IVP SCH (08:24)
[2021-12-10] MEDS: KETOROLAC 15 MG/ML 1 ML VIAL IVP PRN (08:24)
[2021-12-10] MEDS: SPIRONOLACTONE 25 MG TAB PO SCH (08:29)
[2021-12-10] MEDS: ISOSORBIDE MONONITRATE ER 30 MG TAB.ER.24H PO SCH (08:29)
[2021-12-10] MEDS: CIPROFLOXACIN HCL 500 MG TAB PO SCH ×2 (08:29→23:22)
[2021-12-10] MEDS: GLIMEPIRIDE 2 MG TAB PO SCH (08:29)
[2021-12-10] MEDS: METOPROLOL SUCCINATE (ER) 100 MG TAB.ER.24H PO SCH (08:29)
[2021-12-10] MEDS: DOCUSATE 100 MG CAP PO SCH ×2 (08:29→23:21)
[2021-12-10] MEDS: LEVOTHYROXINE 125 MCG TAB PO SCH (08:29)
--- NOTE | 2021-12-10 10:08 | P.PN ---
Subjective Progress Note Date: 12/10/21 Principal diagnosis: Rectal bleeding Patient complaining of back pain and neck pain today. Denies abdominal pain. No rectal bleeding or melena. Hemoglobin stable at 11.3. Objective - Vital Signs Vital signs: Vital Signs Temp 97.6 F 12/10/21 09:18 Pulse 55 L 12/10/21 09:18 Resp 14 12/10/21 09:18 BP 148/76 12/10/21 09:18 Pulse Ox 98 12/10/21 09:18 FiO2 Intake & Output 12/09/21 12/10/21 12/10/21 18:59 06:59 18:59 Intake Total 100 Output Total 2800 Balance 100 -2800 Intake: Intake, IV Titration 100 Amount Cefepime 2 gm In Sodium 100 Chloride 0.9% 100 ml @ 25 mls/hr IVPB Q12H [facility] Rx# :[id number] Output: Urine 2800 Other: Voiding Method External Catheter External Catheter Incontinent External Catheter # Voids 2 - Exam Abdomen: Soft, nontender, nondistended - Labs CBC & Chem 7: 12/10/21 01:06 12/06/21 07:06 Labs: Abnormal Lab Results - Last 24 Hours (Table) 12/09/21 12/09/21 12/09/21 Range/Units 08:50 14:23 16:15 Hgb 11.3 L (12.0-15.0) g/dL MCH 25.9 L (27.0-32.0) pg MCHC 30.4 L 30.6 L (32.0-37.0) g/dL RDW 17.2 H 16.6 H (11.5-14.5) % Plt Count 120 L (140-440) X 10*3/uL MPV 9.3 L (9.5-12.2) fL Immature Gran # 0.05 H (0.00-0.04) X 10*3/uL POC Glucose (mg/dL) 118 H (70-110) mg/dL 12/09/21 12/10/21 Range/Units 19:18 01:06 Hgb 11.3 L 11.3 L (12.0-15.0) g/dL MCH (27.0-32.0) pg MCHC 30.4 L 30.2 L (32.0-37.0) g/dL RDW 16.5 H 16.6 H (11.5-14.5) % Plt Count 141 L 128 L (140-440) X 10*3/uL MPV (9.5-12.2) fL Immature Gran # (0.00-0.04) X 10*3/uL POC Glucose (mg/dL) (70-110) mg/dL Microbiology - Last 24 Hours (Table) 12/04/21 14:11 Blood Culture - Preliminary Blood No Growth after 120 hours 12/04/21 14:11 Blood Culture - Preliminary Blood No Growth after 120 hours Assessment and Plan (1) GI bleed Narrative/Plan: Patient doing well at this time. She has had no further bleeding. Suspect bleeding from the alyssia-buttock wound. No plans for endoscopy at this time. Recommend outpatient follow-up to evaluate for endoscopy at that time. We'll sign off. Please call if needed. Current Visit: No Status: Acute Code(s): K92.2 - GASTROINTESTINAL HEMORRHAGE, UNSPECIFIED SNOMED Code(s): 17967356
[2021-12-10] MEDS: methocarbamoL 500 MG TAB PO PRN ×2 (10:42→21:05)
[2021-12-10] MEDS: FLUTICASONE 50MCG/SPRAY NASAL 16GM EA NOSTRIL PRN (10:42)
[2021-12-10 11:24] LABS: Glucose,Whole Blood 143 mg/dL (70-110)
[2021-12-10] MEDS: ACETAMINOPHEN TAB 325 MG TAB PO PRN (15:05)
[2021-12-10] MEDS: MONTELUKAST 10 MG TAB PO PRN (15:05)
--- NOTE | 2021-12-10 16:18 | P.PN ---
Subjective Progress Note Date: 12/10/21 This is a 65 year old female who presents with increased weakness and acute UTI with klebsiella pneumonia, She is found to be positive for COVID. Currently pending ECF placement at [facility] and they did not have bed available yesterday for placement. General surgery is following for rule out GI bleed. Ok to continue on xarelto with close monitoring of hemoglobin and evidence for acute rectal bleeding. She does continue with diffuse generalized weakness and complains of generalized aches and pains, she does need encouragement to participate in ADLs and mobility. She remains mostly on bedrest. HGB today 11.6. Patient is afebrile, heart rate 65, blood pressure 119/72, 95% room air. 12/09/2021 Patient evaluated today resting in bed. She continues to complain of generalized pain and also to her neck and left arm. She is being repositioned in bed and needs encouragement to participate in her ADLs. No reports of rectal bleeding, she does have found to left buttock. She has hgb stable today at 11.3. blood glucose within normal limits. She has been transitioned to oral antibiotics for UTI. Continues on room air. Pain management with norco which will be increased to 7.5 mg today, also on IV toradol Q6h, will add ultram as well. Pending ECF bed for discharge. 12/10/2021 Patient reports better pain control with increase in norco dosing. No signs for acute rectal bleeding, hemoglobin stable today at 11.3, platelet count 128. Blood pressure increased today up to 148/76, lisinopril has been resumed at 2.5 mg po daily. She is eating well, tolerating diet. Will follow up labs in AM. She is on room air. Pending [facility] placement when bed available. Review of Systems Constitutional: Denied any fatigue denied any fever. Cardio vascular: denied any chest pain, palpitations Gastrointestinal: denied any nausea, vomiting, diarrhea Pulmonary: Denied any shortness of breath cough Neurologic denied any new focal deficits All inpatient medications were reviewed and appropriate changes in these m edications as dictated in the interval history and assessment and plan. PHYSICAL EXAMINATION: GENERAL: The patient is alert and oriented x3, not in any acute distress. Well developed, well nourished. HEENT: Pupils are round and equally reacting to light. EOMI. No scleral icterus. No conjunctival pallor. Normocephalic, atraumatic. No pharyngeal erythema. No thyromegaly. CARDIOVASCULAR: S1 and S2 present. No murmurs, rubs, or gallops. PULMONARY: Chest is clear to auscultation, no wheezing or crackles. ABDOMEN: Soft, nontender, nondistended, normoactive bowel sounds. No palpable organomegaly. MUSCULOSKELETAL: No joint swelling or deformity. EXTREMITIES: No cyanosis, clubbing, or pedal edema. NEUROLOGICAL: Gross neurological examination did not reveal any focal deficits. Generalized weakness SKIN: No rashes. 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 Discharge to [facility] pending when bed available at [facility] The impression and plan of care has been dictated by Taya Gee Nurse Practitioner as directed. Dr. Paul MD I have performed a history and physical examination and medical decision making of this patient, discussed the same with the dictator, and agree with the dictators assessment and plan as written, documented as a scribe. Based on total visit time, I have performed more than 50% of this visit. Objective - Vital Signs Vital signs: Vital Signs Temp 98 F 12/10/21 14:00 Pulse 67 12/10/21 14:00 Resp 18 12/10/21 14:00 BP 94/58 12/10/21 14:00 Pulse Ox 93 L 12/10/21 14:00 FiO2 Intake & Output 12/09/21 12/10/21 12/10/21 18:59 06:59 18:59 Intake Total 100 Output Total 2800 Balance 100 -2800 Intake: Intake, IV Titration 100 Amount Cefepime 2 gm In Sodium 100 Chloride 0.9% 100 ml @ 25 mls/hr IVPB Q12H [facility] Rx# :[id number] Output: Urine 2800 Other: Voiding Method External Catheter External Catheter Incontinent External Catheter # Voids 2 - Labs CBC & Chem 7: 12/10/21 01:06 12/06/21 07:06 Labs: Abnormal Lab Results - Last 24 Hours (Table) 12/09/21 12/09/21 12/10/21 Range/Units 16:15 19:18 01:06 Hgb 11.3 L 11.3 L (11.4-16.0) gm/dL MCHC 30.4 L 30.2 L (31.0-37.0) g/dL RDW 16.5 H 16.6 H (11.5-15.5) % Plt Count 141 L 128 L (150-450) k/uL POC Glucose (mg/dL) 118 H (70-110) mg/dL 12/10/21 Range/Units 11:23 Hgb (11.4-16.0) gm/dL MCHC (31.0-37.0) g/dL RDW (11.5-15.5) % Plt Count (150-450) k/uL POC Glucose (mg/dL) 143 H (70-110) mg/dL Microbiology - Last 24 Hours (Table) 12/04/21 14:11 Blood Culture - Preliminary Blood No Growth after 120 hours 12/04/21 14:11 Blood Culture - Preliminary Blood No Growth after 120 hours Assessment and Plan Time with Patient: Less than 30
[2021-12-10 16:49] LABS: Glucose,Whole Blood 151 mg/dL (70-110)
[2021-12-10 20:29] LABS: Glucose,Whole Blood 155 mg/dL (70-110)
[2021-12-10] MEDS: ATORVASTATIN 40 MG TAB PO SCH (23:21)
[2021-12-11] MEDS: PANTOPRAZOLE 40 MG/10 ML VIAL IVP SCH ×2 (00:13→09:35)
[2021-12-11 07:21] LABS: Glucose,Whole Blood 88 mg/dL (70-110)
[2021-12-11] MEDS: ALBUTEROL HFA INHALER INHALATION SCH ×3 (08:29→20:29)
[2021-12-11] MEDS: TIOTROPIUM 2.5 MCG INHALER INHALATION SCH (08:29)
--- NOTE | 2021-12-11 08:43 | P.PN ---
Subjective Progress Note Date: 12/10/21 Principal diagnosis: Covid 19 and UTI Patient is a 65-year-old female presenting to the hospital with generalized weakness unable to get out of her chair did have some URI symptoms tested positive for COVID and did have a positive UA concerning for a urinary tract infection. On today's evaluation that is 12/10/2021, the patient denies any fever or any chills, the patient is breathing comfortably on room air , the patient did have occasional cough but no sputum production, the patient denies any abdominal pain , no further bleeding per rectum has been complaining of pain in the back shoulder area Objective - Vital Signs Vital signs: Vital Signs Temp 98.0 F 12/10/21 21:39 Pulse 67 12/10/21 21:39 Resp 18 12/10/21 21:39 BP 94/58 12/10/21 21:39 Pulse Ox 93 L 12/10/21 21:39 FiO2 Intake & Output 12/10/21 12/10/21 12/11/21 06:59 18:59 06:59 Intake Total 500 Output Total 2800 Balance -2800 500 Intake: Intake, IV Titration 500 Amount Cefepime 2 gm In Sodium 500 Chloride 0.9% 100 ml @ 25 mls/hr IVPB Q12H [facility] Rx# :[id number] Output: Urine 2800 Other: Voiding Method External Catheter Incontinent External Catheter External Catheter # Voids 2 1 - Exam GENERAL DESCRIPTION: Elderly female lying in bed, no distress. No tachypnea or accessory muscle of respiration use. LUNGS: Unlabored breathing. Clear to auscultation anteriorly. No wheeze or crackle. HEART: S1, S2, regular rate and rhythm. No loud murmur ABDOMEN: Soft, no tenderness , guarding or rigidity, no organomegaly EXTREMITIES: No edema of feet. - Labs CBC & Chem 7: 12/10/21 01:06 12/06/21 07:06 Labs: Abnormal Lab Results - Last 24 Hours (Table) 12/10/21 12/10/21 12/10/21 Range/Units 01:06 11:23 16:30 Hgb 11.3 L (11.4-16.0) gm/dL MCHC 30.2 L (31.0-37.0) g/dL RDW 16.6 H (11.5-15.5) % Plt Count 128 L (150-450) k/uL POC Glucose (mg/dL) 143 H 151 H (70-110) mg/dL 12/10/21 Range/Units 20:28 Hgb (11.4-16.0) gm/dL MCHC (31.0-37.0) g/dL RDW (11.5-15.5) % Plt Count (150-450) k/uL POC Glucose (mg/dL) 155 H (70-110) mg/dL Microbiology - Last 24 Hours (Table) 12/04/21 14:11 Blood Culture - Final Blood No Growth after 144 hours 12/04/21 14:11 Blood Culture - Final Blood No Growth after 144 hours Assessment and Plan (1) COVID-19 Current Visit: Yes Status: Acute Code(s): U07.1 - COVID-19 SNOMED Code(s): 508224035 (2) UTI (urinary tract infection) Current Visit: Yes Status: Acute Code(s): N39.0 - URINARY TRACT INFECTION, SITE NOT SPECIFIED SNOMED Code(s): 34989470 Plan: 1patient presented to hospital with generalized weakness she is likely multifactorial and could be related to the COVID-19 infection as the patient not vaccinated for COVID-19 however the patient currently not hypoxic and the chest x-ray was negative for acute infiltrate treatment will be mostly supportive, patient did have a positive UA and some burning of urine likely symptomatic UTI from enteric gram-negative pathogen. 2the patient urine culture had been finalized with Klebsiella which is a sensitive pathogen patient currently being treated with Cipro to continue for another 5 days to finish a course of therapy Time with Patient: Less than 30
[2021-12-11] MEDS: GLIMEPIRIDE 2 MG TAB PO SCH (09:36)
[2021-12-11] MEDS: LEVOTHYROXINE 125 MCG TAB PO SCH (09:36)
[2021-12-11] MEDS: SPIRONOLACTONE 25 MG TAB PO SCH (09:36)
[2021-12-11] MEDS: ISOSORBIDE MONONITRATE ER 30 MG TAB.ER.24H PO SCH (09:36)
[2021-12-11] MEDS: METOPROLOL SUCCINATE (ER) 100 MG TAB.ER.24H PO SCH (09:36)
[2021-12-11] MEDS: CIPROFLOXACIN HCL 500 MG TAB PO SCH ×2 (09:36→20:10)
[2021-12-11] MEDS: DOCUSATE 100 MG CAP PO SCH ×2 (09:36→20:10)
[2021-12-11] MEDS: MONTELUKAST 10 MG TAB PO PRN (09:46)
[2021-12-11] MEDS: FLUTICASONE 50MCG/SPRAY NASAL 16GM EA NOSTRIL PRN (09:47)
[2021-12-11 11:00] LABS: Basophils # (A) 0.03 X 10*3/uL (0.00-0.10); Basophils % (A) 0.5 %; Eosinophils # (A) 0.42 X 10*3/uL (0.04-0.35); Eosinophils % (A) 6.9 %; HCT 36.3 % (37.2-46.3); HGB 11.2 g/dL (12.0-15.0); Immature Grans, Automated 1.3 %; Lymphocytes # (A) 1.81 X 10*3/uL (0.90-5.00); Lymphocytes % (A) 29.9 %; MCH 26.5 pg (27.0-32.0); MCHC 30.9 g/dL (32.0-37.0); Mean Platelet Volume 9.9 fL (9.5-12.2); Monocytes # (A) 0.64 X 10*3/uL (0.20-1.00); Monocytes % (A) 10.6 %; NRBC Per 100 WBC 0 /100 WBCS (0.0-0.0); Neutrophils # (A) 3.07 X 10*3/uL (1.80-7.70); Neutrophils % (A) 50.8 %; Platelet Count 153 X 10*3/uL (140-440); RBC 4.22 X 10*6/uL (4.10-5.20); RDW 17.1 % (11.5-14.5); WBC 6.05 X 10*3/uL (4.50-10.00)
[2021-12-11 11:10] LABS: African American GFR (CKD) 68.5 (60.0-200.0); Anion Gap 9.2 mmol/L (10.00-18.00); BUN/Creat Ratio 25.65 Ratio (12.00-20.00); Blood Urea Nitrogen 25.5 mg/dL (9.0-27.0); Calcium 8.6 mg/dL (8.7-10.3); Carbon Dioxide 23.5 mmol/L (20.0-27.5); Magnesium 2.1 mg/dL (1.5-2.4); Non-African American GFR(CKD) 59.1 (60.0-200.0); Potassium 4.6 mmol/L (3.5-5.5)
[2021-12-11 11:23] LABS: Glucose,Whole Blood 192 mg/dL (70-110)
[2021-12-11 11:27] LABS: Glucose,Whole Blood 87 mg/dL (70-110)
[2021-12-11 11:27] LABS: Glucose,Whole Blood 137 mg/dL (70-110)
[2021-12-11 11:27] LABS: Glucose,Whole Blood 77 mg/dL (70-110)
[2021-12-11] MEDS: methocarbamoL 500 MG TAB PO PRN (11:30)
[2021-12-11 19:07] LABS: Glucose,Whole Blood 114 mg/dL (70-110)
[2021-12-11] MEDS ORDERED: ONDANSETRON 4 MG TAB PO PRN (20:07)
[2021-12-11] MEDS ORDERED: polyethylene glycoL 3350 17 GM POWD.PACK PO PRN (20:07)
[2021-12-11] MEDS: ATORVASTATIN 40 MG TAB PO SCH (20:10)
[2021-12-11] MEDS: HYDROcodone/APAP 7.5-325MG 1 EACH TAB PO PRN (20:10)
[2021-12-11 21:11] LABS: Glucose,Whole Blood 133 mg/dL (70-110)
[2021-12-11 21:11] LABS: Glucose,Whole Blood 151 mg/dL (70-110)
[2021-12-12] MEDS: methocarbamoL 500 MG TAB PO PRN (04:51)
[2021-12-12] MEDS: HYDROcodone/APAP 7.5-325MG 1 EACH TAB PO PRN ×2 (04:51→15:23)
--- NOTE | 2021-12-12 06:57 | P.PN ---
Subjective Progress Note Date: 12/11/21 This is a 65 year old female who presents with increased weakness and acute UTI with klebsiella pneumonia, She is found to be positive for COVID. Currently pending ECF placement at [facility] and they did not have bed available yesterday for placement. General surgery is following for rule out GI bleed. Ok to continue on xarelto with close monitoring of hemoglobin and evidence for acute rectal bleeding. She does continue with diffuse generalized weakness and complains of generalized aches and pains, she does need encouragement to participate in ADLs and mobility. She remains mostly on bedrest. HGB today 11.6. Patient is afebrile, heart rate 65, blood pressure 119/72, 95% room air. 12/09/2021 Patient evaluated today resting in bed. She continues to complain of generalized pain and also to her neck and left arm. She is being repositioned in bed and needs encouragement to participate in her ADLs. No reports of rectal bleeding, she does have found to left buttock. She has hgb stable today at 11.3. blood glucose within normal limits. She has been transitioned to oral antibiotics for UTI. Continues on room air. Pain management with norco which will be increased to 7.5 mg today, also on IV toradol Q6h, will add ultram as well. Pending ECF bed for discharge. 12/10/2021 Patient reports better pain control with increase in norco dosing. No signs for acute rectal bleeding, hemoglobin stable today at 11.3, platelet count 128. Blood pressure increased today up to 148/76, lisinopril has been resumed at 2.5 mg po daily. She is eating well, tolerating diet. Will follow up labs in AM. She is on room air. Pending [facility] placement when bed available. 12/11/2021 Patient is seen this am and reports to having no bowel movement in a few days and requesting something for constipation. Patient lost IV access and has been transitioned to oral antibiotics. Patient ok with no IV for now and awaiting insurance authorization to ECF. PT to follow up today. Encouraged oral intake and increased activity as tolerated. Patient is afebrile and denies chest pain or shortness of breath. Case management is following. Review of Systems Constitutional: Denied any fatigue denied any fever. Cardio vascular: denied any chest pain, palpitations Gastrointestinal: denied any nausea, vomiting, reports no bm in a few days Pulmonary: Denied any shortness of breath cough Neurologic denied any new focal deficits All inpatient medications were reviewed and appropriate changes in these medications as dictated in the interval history and assessment and plan. PHYSICAL EXAMINATION: GENERAL: The patient is alert and oriented x3, not in any acute distress. Well developed, well nourished. HEENT: Pupils are round and equally reacting to light. EOMI. No scleral icterus. No conjunctival pallor. Normocephalic, atraumatic. No pharyngeal erythema. No thyromegaly. CARDIOVASCULAR: S1 and S2 present. No murmurs, rubs, or gallops. PULMONARY: Chest is clear to auscultation, no wheezing or crackles. ABDOMEN: Soft, nontender, nondistended, normoactive bowel sounds. No palpable organomegaly. MUSCULOSKELETAL: No joint swelling or deformity. EXTREMITIES: No cyanosis, clubbing, or pedal edema. NEUROLOGICAL: Gross neurological examination did not reveal any focal deficits. Generalized weakness SKIN: No rashes. Assessment Acute urinary tract infection, present on admission with culture showing Klebsiella pneumonia Acute COVID-19 infection Dehydration Weakness with gait dysfunction History of pulmonary embolisms and DVT maintained on Xarelto History of chronic systolic heart failure, not in exacerbation Fibromyalgia CVA/TIA history Paroxysmal atrial fibrillation Hypertension Hyperlipidemia osteoarthritis Diabetes mellitus type 2 Morbid obesity with a body mass index of 48.4 GI prophylaxis DVT prophylaxis Full code Plan Transitioned to oral antibiotics Continue on xarelto, hemoglobin stable General surgery, infectious disease following patient Pain management and bowel regimen on board Encourage patient to increase activity level, use incentive spirometer. Discharge to [facility] pending when bed available at [facility] is obtained Possible discharge in 24 hours. The impression and plan of care has been dictated by Gloria Cheung, Nurse Practitioner as directed. Dr. Efra MD I have performed a history and examination and MDM of this patient, discussed the same with the dictator, and agree with the dictator's assessment and plan as written ,documented as a scribe. Based on total visit time, I have performed more than 50% of the visit. Objective - Vital Signs Vital signs: Vital Signs Temp 97.5 F L 12/11/21 06:00 Pulse 52 L 12/11/21 06:00 Resp 16 09/06/22 06:00 BP 108/71 12/11/21 06:00 Pulse Ox 98 12/11/21 06:00 FiO2 Intake & Output 12/10/21 12/11/21 12/11/21 18:59 06:59 18:59 Intake Total 500 480 Output Total 400 Balance 500 80 Intake: Intake, IV Titration 500 Amount Cefepime 2 gm In Sodium 500 Chloride 0.9% 100 ml @ 25 mls/hr IVPB Q12H [facility] Rx# :[id number] Oral 480 Output: Urine 400 Other: Voiding Method Incontinent External Catheter Incontinent External Catheter # Voids 1 1 - Labs CBC & Chem 7: 12/11/21 07:45 12/11/21 07:45 Labs: Abnormal Lab Results - Last 24 Hours (Table) 12/10/21 12/10/21 12/11/21 Range/Units 16:30 20:28 07:45 Hgb 11.2 L (12.0-15.0) g/dL Hct 36.3 L (37.2-46.3) % MCH 26.5 L (27.0-32.0) pg MCHC 30.9 L (32.0-37.0) g/dL RDW 17.1 H (11.5-14.5) % Immature Gran # 0.08 H (0.00-0.04) X 10*3/uL Eosinophils # 0.42 H (0.04-0.35) X 10*3/uL Sodium (135-145) mmol/L Anion Gap (10.00-18.00) mmol/L Est GFR (CKD-EPI)NonAf (60.0-200.0) BUN/Creatinine Ratio (12.00-20.00) Ratio POC Glucose (mg/dL) 151 H 155 H (70-110) mg/dL Calcium (8.7-10.3) mg/dL 12/11/21 12/11/21 12/11/21 Range/Units 07:45 11:21 11:24 Hgb (12.0-15.0) g/dL Hct (37.2-46.3) % MCH (27.0-32.0) pg MCHC (32.0-37.0) g/dL RDW (11.5-14.5) % Immature Gran # (0.00-0.04) X 10*3/uL Eosinophils # (0.04-0.35) X 10*3/uL Sodium 133 L (135-145) mmol/L Anion Gap 9.20 L (10.00-18.00) mmol/L Est GFR (CKD-EPI)NonAf 59.1 L (60.0-200.0) BUN/Creatinine Ratio 25.65 H (12.00-20.00) Ratio POC Glucose (mg/dL) 192 H 137 H (70-110) mg/dL Calcium 8.6 L (8.7-10.3) mg/dL Microbiology - Last 24 Hours (Table) 12/04/21 14:11 Blood Culture - Final Blood No Growth after 144 hours 12/04/21 14:11 Blood Culture - Final Blood No Growth after 144 hours
[2021-12-12] MEDS: DOCUSATE 100 MG CAP PO SCH (07:10)
[2021-12-12] MEDS: ISOSORBIDE MONONITRATE ER 30 MG TAB.ER.24H PO SCH (07:10)
[2021-12-12] MEDS: SPIRONOLACTONE 25 MG TAB PO SCH (07:10)
[2021-12-12] MEDS: LEVOTHYROXINE 125 MCG TAB PO SCH (07:10)
[2021-12-12] MEDS: CIPROFLOXACIN HCL 500 MG TAB PO SCH (07:11)
[2021-12-12] MEDS: METOPROLOL SUCCINATE (ER) 100 MG TAB.ER.24H PO SCH (07:11)
[2021-12-12] MEDS: GLIMEPIRIDE 2 MG TAB PO SCH (07:11)
[2021-12-12] MEDS: MONTELUKAST 10 MG TAB PO PRN (07:15)
[2021-12-12] MEDS: ALBUTEROL HFA INHALER INHALATION SCH ×2 (07:44→11:11)
[2021-12-12 08:51] VITALS: BMI 48.4
[2021-12-12] MEDS: PANTOPRAZOLE 40 MG TABLET PO SCH ×2 (09:26→17:24)
[2021-12-12] MEDS: TIOTROPIUM 2.5 MCG INHALER INHALATION SCH (11:11)
[2021-12-12 14:29] VITALS: BP 102/67; PULSE 60; RESP 17; TEMP 98.4
--- NOTE | 2021-12-12 14:50 | P.DS ---
Providers Date of admission: 12/04/21 13:45 Expected date of discharge: 12/12/21 Attending physician: Yoselin Caballero Consults: 12/04/21 14:58 Consult Physician Routine Consulting Provider: Jason Olivo Consult Reason/Comments: COVID, WEAKNESS Do you want consulting provider notified?: Yes 12/04/21 14:59 Consult Physician Routine Consulting Provider: Diann Kemp Consult Reason/Comments: ASTHMA Do you want consulting provider notified?: Yes 12/08/21 07:33 Consult Physician Urgent Consulting Provider: James Recinos Consult Reason/Comments: GI bleed Do you want consulting provider notified?: Yes, Notify in am Primary care physician: Lor Deluca Hospital Course: Final diagnosis Acute urinary tract infection, present on admission with culture showing Klebsie lla pneumonia Acute COVID-19 infection Dehydration Weakness with gait dysfunction History of pulmonary embolisms and DVT maintained on Xarelto History of chronic systolic heart failure, not in exacerbation Fibromyalgia CVA/TIA history Paroxysmal atrial fibrillation Hypertension Hyperlipidemia osteoarthritis Diabetes mellitus type 2 Morbid obesity with a body mass index of 48.4 GI prophylaxis DVT prophylaxis Full code Discharge disposition Patient is being discharged in a stable condition with guarded prognosis to [facility]. Patient will follow-up with Dr. Deluca in the outpatient setting upon discharge. Patient is to continue with oral Cipro 500 mg twice daily for the next 5 days to complete the course. Total time taken is greater than 35 minutes. Hospital course This is a 65-year-old female who was recently admitted with increased weakness and also found to have acute urinary tract infection present on admission with Klebsiella pneumonia also found to be Covid positive although not suffering any respiratory symptoms. Patient continued with weakness and was evaluated by physical therapy recommending subacute rehab and would require a Covid hub facility and has been accepted at [facility] and insurance authorization has been obtained. General surgery also evaluated the patient to rule out GI bleed and patient has been on Xarelto with acute rectal bleeding although this has been ruled out. Patient does have a wound of the left buttock recommend continuing with wound care. Patient will continue on oral antibiotics in the form of Cipro 500 mg twice daily for the next 5 days to complete the course. Patient does have some intermittent constipation and recommend bowel regimen as needed. Encouraged increased activity as tolerated. Currently no reports of chest pain, shortness of breath, or palpitations. Patient is afebrile. No reports of nausea or vomiting and patient is tolerating diet. Patient will be going to [facility] today. Guarded prognosis. Physical exam: Gen: This is a 65-year-old female awake, alert and oriented 3, well-developed, well-nourished, morbidly obese. HEENT: Head is atraumatic, normocephalic. Pupils equal, round. Sclerae is anicteric. NECK: Supple. No JVD. No lymphadenopathy. No thyromegaly. LUNGS: Clear to auscultation. No wheezes or rhonchi. No intercostal retractions. HEART: Regular rate and rhythm. No murmur. ABDOMEN: Soft. Obese. Bowel sounds are present. No masses. No tenderness. EXTREMITIES: No pedal edema. No calf tenderness. NEUROLOGICAL: Patient is awake, alert and oriented x3. Cranial nerves 2 through 12 are grossly intact. Diffuse weakness Please refer to medication reconciliation sheet for a list of medications. The impression and plan of care has been dictated by Gloria Cheung, Nurse Practitioner as directed. Dr. Efra MD I have performed a history and examination and MDM of this patient, discussed the same with the dictator, and agree with the dictator's assessment and plan as written ,documented as a scribe. Based on total visit time, I have performed more than 50% of the visit. Patient Condition at Discharge: Stable Plan - Discharge Summary Discharge Rx Participant: No New Discharge Prescriptions: New HYDROcodone/APAP 5-325MG [[place] 5-325] 1 each PO Q6HR PRN #6 tab PRN Reason: Pain Ciprofloxacin HCl [Cipro] 500 mg PO BID 5 Days #10 tab Pantoprazole [Protonix] 40 mg PO AC-BID tab Docusate [Colace] 100 mg PO BID cap Tiotropium 2.5 Mcg/Puff [Spiriva Respimat 2.5 Mcg] 2 puff INHALATION RT-DAILY each Albuterol Inhaler [Ventolin Hfa Inhaler] 2 puff INHALATION RT-TID each Albuterol Inhaler [Ventolin Hfa Inhaler] 2 puff INHALATION RT-TID PRN each PRN Reason: Shortness Of Breath Or Wheezing Fluticasone Nasal [place] [Flonase Nasal [place]] 2 spray EA NOSTRIL DAILY PRN ml PRN Reason: Allergy Symptoms polyethylene glycoL 3350 [Miralax] 17 gm PO DAILY PRN packet PRN Reason: CONSTIPATION traMADol HCl [Ultram] 50 mg PO TID PRN #6 tab PRN Reason: Mild To Moderate Pain lisinopriL [Zestril] 2.5 mg PO DAILY tab Ondansetron [Zofran] 4 mg PO Q8H PRN tab PRN Reason: Nausea Continue Montelukast [Singulair] 10 mg PO DAILY PRN PRN Reason: Allergy Symptoms Metoprolol Succinate (ER) [Toprol XL] 100 mg PO DAILY Rivaroxaban [Xarelto] 20 mg PO W/SUPPER Spironolactone [Aldactone] 25 mg PO DAILY Aspirin 81 mg PO DAILY chew Acetaminophen Tab [Tylenol] 1,000 mg PO Q6H PRN PRN Reason: Pain Levothyroxine Sodium [Synthroid] 125 mcg PO AC-BRKFST Isosorbide Mononitrate ER [Imdur] 30 mg PO DAILY Loratadine [Claritin] 10 mg PO DAILY PRN PRN Reason: Allergy Symptoms methocarbamoL [Robaxin] 500 mg PO Q4H PRN PRN Reason: Muscle Spasm Rosuvastatin [Crestor] 20 mg PO HS Nitroglycerin Sl Tabs [Nitrostat] 0.4 mg SL Q5M PRN PRN Reason: Chest Pain Glimepiride [Amaryl] 2 mg PO AC-BRKFST Discontinued lisinopriL [Zestril] 5 mg PO DAILY #30 tab Discharge Medication List Montelukast [Singulair] 10 mg PO DAILY PRN 08/28/17 [History] Metoprolol Succinate (ER) [Toprol XL] 100 mg PO DAILY 05/03/20 [History] Rivaroxaban [Xarelto] 20 mg PO W/SUPPER 05/03/20 [History] Spironolactone [Aldactone] 25 mg PO DAILY 05/03/20 [History] Aspirin 81 mg PO DAILY chew 05/04/20 [Rx] Acetaminophen Tab [Tylenol] 1,000 mg PO Q6H PRN 05/22/21 [History] Levothyroxine Sodium [Synthroid] 125 mcg PO AC-BRKFST 05/22/21 [History] Loratadine [Claritin] 10 mg PO DAILY PRN 05/22/21 [History] Rosuvastatin [Crestor] 20 mg PO HS 05/22/21 [History] methocarbamoL [Robaxin] 500 mg PO Q4H PRN 05/22/21 [History] Glimepiride [Amaryl] 2 mg PO AC-BRKFST 12/04/21 [History] Isosorbide Mononitrate ER [Imdur] 30 mg PO DAILY 12/04/21 [History] Nitroglycerin Sl Tabs [Nitrostat] 0.4 mg SL Q5M PRN 12/04/21 [History] Albuterol Inhaler [Ventolin Hfa Inhaler] 2 puff INHALATION RT-TID each 12/07/21 [Rx] Albuterol Inhaler [Ventolin Hfa Inhaler] 2 puff INHALATION RT-TID PRN each 12/07/21 [Rx] Docusate [Colace] 100 mg PO BID cap 12/07/21 [Rx] HYDROcodone/APAP 5-325MG [[place] 5-325] 1 each PO Q6HR PRN #6 tab 12/07/21 [Rx] Tiotropium 2.5 Mcg/Puff [Spiriva Respimat 2.5 Mcg] 2 puff INHALATION RT-DAILY each 12/07/21 [Rx] Ciprofloxacin HCl [Cipro] 500 mg PO BID 5 Days #10 tab 12/12/21 [Rx] Fluticasone Nasal [place] [Flonase Nasal [place]] 2 spray EA NOSTRIL DAILY PRN ml 12/12/21 [Rx] Ondansetron [Zofran] 4 mg PO Q8H PRN tab 12/12/21 [Rx] Pantoprazole [Protonix] 40 mg PO AC-BID tab 12/12/21 [Rx] lisinopriL [Zestril] 2.5 mg PO DAILY tab 12/12/21 [Rx] polyethylene glycoL 3350 [Miralax] 17 gm PO DAILY PRN packet 12/12/21 [Rx] traMADol HCl [Ultram] 50 mg PO TID PRN #6 tab 12/12/21 [Rx] Follow up Appointment(s)/Referral(s): Lor Deluca MD [Primary Care Provider] - 1-2 days Ambulatory/Diagnostic Orders: Basic Metabolic Panel [LAB.AMB] Time Frame: 3 Days, Location: None Selected Complete Blood Count w/diff [LAB.AMB] Time Frame: 3 Days, Location: None Selected Activity/Diet/Wound Care/Special Instructions: Patient will be going to [facility] Activity as tolerated Continue with consistent carb diet, heart healthy diet Continue to monitor blood sugars before meals and at bedtime Recommend to continue with oral diabetic agents Continue with medications as prescribed Continue with antibiotics in the form of oral Cipro 500 mg twice daily for the next 5 days and then may discontinue Recommend follow-up with primary care provider on discharge Discharge Disposition: TRANSFER TO SNF/ECF
== END 2021-12-12 18:02 | DRG 178 ==
LOC: EC 10:11 → 4SSUR 13:45
PROVIDERS: ADMIT Hospitalist; ATTEND Hospitalist
PROC: 3E0333Z Introduction of Anti-inflammatory into Peripheral Vein, Percutaneous Approach (ICD-10-PCS; principal; 2021-12-04)
DX: U07.1 COVID-19 (principal); I13.0 Hypertensive heart and chronic kidney disease with heart failure and stage 1 through stage 4 chronic kidney disease, or unspecified chronic kidney disease; I50.22 Chronic systolic (congestive) heart failure; Z68.42 Body mass index [BMI] 45.0-49.9, adult; N39.0 Urinary tract infection, site not specified; N20.1 Calculus of ureter; I48.0 Paroxysmal atrial fibrillation; I25.5 Ischemic cardiomyopathy; E86.0 Dehydration; I25.10 Atherosclerotic heart disease of native coronary artery without angina pectoris; E03.9 Hypothyroidism, unspecified; E66.01 Morbid (severe) obesity due to excess calories; K59.09 Other constipation; Z28.310 Unvaccinated for COVID-19; E78.5 Hyperlipidemia, unspecified; E11.22 Type 2 diabetes mellitus with diabetic chronic kidney disease; E11.42 Type 2 diabetes mellitus with diabetic polyneuropathy; B96.1 Klebsiella pneumoniae [K. pneumoniae] as the cause of diseases classified elsewhere; J45.20 Mild intermittent asthma, uncomplicated; Z96.1 Presence of intraocular lens; M79.7 Fibromyalgia; D63.1 Anemia in chronic kidney disease; L98.419 Non-pressure chronic ulcer of buttock with unspecified severity; F32.A Depression, unspecified; R53.81 Other malaise; N18.30 Chronic kidney disease, stage 3 unspecified; M19.90 Unspecified osteoarthritis, unspecified site; R26.9 Unspecified abnormalities of gait and mobility; Z20.822 Contact with and (suspected) exposure to COVID-19; I25.2 Old myocardial infarction; Z79.01 Long term (current) use of anticoagulants; Z79.82 Long term (current) use of aspirin; Z79.84 Long term (current) use of oral hypoglycemic drugs; Z79.890 Hormone replacement therapy; Z79.899 Other long term (current) drug therapy; Z86.711 Personal history of pulmonary embolism; Z86.718 Personal history of other venous thrombosis and embolism; Z86.73 Personal history of transient ischemic attack (TIA), and cerebral infarction without residual deficits; Z87.440 Personal history of urinary (tract) infections; Z87.891 Personal history of nicotine dependence; Z95.5 Presence of coronary angioplasty implant and graft; Z88.1 Allergy status to other antibiotic agents; Z91.040 Latex allergy status; Z91.011 Allergy to milk products; Z91.09 Other allergy status, other than to drugs and biological substances
CPT/HCPCS: 36415; 71045; 71046; 71250; 74176; 80048; 80053; 81001; 82550; 83605; 83615; 83735; 83880; 84145; 84443; 84484; 85025; 85379; 85610; 85730; 86140; 87040; 87077; 87086; 87186; 87502; 87635; 93005; 94640; 96374; 99285

== ENCOUNTER 2022-09-25 07:43 | Emergency (ER) | payer MEDICARE ==
[2022-09-25 07:52] VITALS: BP 130/65; PULSE 94; RESP 18; TEMP 97.9
[2022-09-25] MEDS ORDERED: SODIUM CHLORIDE 0.9% 1,000 ML IV STA (08:05)
--- NOTE | 2022-09-25 08:07 | ED ---
General Adult HPI - General Chief complaint: Abdominal Pain Stated complaint: flank pain Time Seen by Provider: 09/25/22 07:55 Source: patient, EMS, RN notes reviewed Mode of arrival: EMS Limitations: no limitations - History of Present Illness Initial comments: Patient is a pleasant 66-year-old female presenting to the emergency department with concern for lower abdominal/back pain. Patient had an episode yesterday morning and again this morning. This morning started around 5 AM. Symptoms have significantly improved and are near resolved at this time.She did vomiting. No constipation or diarrhea. No history of similar symptoms previously. S ymptoms are not positional. Patient does not want any pain medication at this time. Discomfort is mostly right lower back however essentially resolved there. Discomfort is somewhat right flank as well and still remains a little bit. - Related Data Home Medications Medication Instructions Recorded Confirmed Montelukast [Singulair] 10 mg PO DAILY PRN 08/28/17 12/04/21 Metoprolol Succinate (ER) [Toprol 100 mg PO DAILY 05/03/20 12/04/21 XL] Rivaroxaban [Xarelto] 20 mg PO W/SUPPER 05/03/20 12/04/21 Spironolactone [Aldactone] 25 mg PO DAILY 05/03/20 12/04/21 Acetaminophen Tab [Tylenol] 1,000 mg PO Q6H PRN 05/22/21 12/04/21 Levothyroxine Sodium [Synthroid] 125 mcg PO AC-BRKFST 05/22/21 12/04/21 Loratadine [Claritin] 10 mg PO DAILY PRN 05/22/21 12/04/21 Rosuvastatin [Crestor] 20 mg PO HS 05/22/21 12/04/21 methocarbamoL [Robaxin] 500 mg PO Q4H PRN 05/22/21 12/04/21 Glimepiride [Amaryl] 2 mg PO AC-BRKFST 12/04/21 12/04/21 Isosorbide Mononitrate ER [Imdur] 30 mg PO DAILY 12/04/21 12/04/21 Nitroglycerin Sl Tabs [Nitrostat] 0.4 mg SL Q5M PRN 12/04/21 12/04/21 Previous Rx's Medication Instructions Recorded Aspirin 81 mg PO DAILY chew 05/04/20 Albuterol Inhaler [Ventolin Hfa 2 puff INHALATION RT-TID each 12/07/21 Inhaler] Albuterol Inhaler [Ventolin Hfa 2 puff INHALATION RT-TID PRN each 12/07/21 Inhaler] Docusate [Colace] 100 mg PO BID cap 12/07/21 HYDROcodone/APAP 5-325MG [[place] 1 each PO Q6HR PRN #6 tab 12/07/21 5-325] Tiotropium 2.5 Mcg/Puff [Spiriva 2 puff INHALATION RT-DAILY each 12/07/21 Respimat 2.5 Mcg] Ciprofloxacin HCl [Cipro] 500 mg PO BID 5 Days #10 tab 12/12/21 Fluticasone Nasal [place] [Flonase 2 spray EA NOSTRIL DAILY PRN ml 12/12/21 Nasal [place]] Ondansetron [Zofran] 4 mg PO Q8H PRN tab 12/12/21 Pantoprazole [Protonix] 40 mg PO AC-BID tab 12/12/21 lisinopriL [Zestril] 2.5 mg PO DAILY tab 12/12/21 polyethylene glycoL 3350 [Miralax] 17 gm PO DAILY PRN packet 12/12/21 traMADol HCl [Ultram] 50 mg PO TID PRN #6 tab 12/12/21 Nitrofurantoin Monohyd/M-Cryst 100 mg PO Q12HR #20 cap 09/25/22 [Macrobid] Allergies Allergy/AdvReac Type Severity Reaction Status Date / Time grass pollen Allergy Sinus Verified 12/04/21 13:45 latex Allergy Rash/Hives Verified 12/04/21 13:45 mold Allergy Sinus Verified 12/04/21 13:45 pollen extracts Allergy Sinus Verified 12/04/21 13:45 tree and shrub pollen Allergy Sinus Verified 12/04/21 13:45 Milk Containing Products AdvReac THRUSH Verified 12/04/21 13:45 [Dairy] Tetracyclines AdvReac YEAST Verified 12/04/21 13:45 INFECTION- PREFERS NOT TO TAKE ENVIRONMENTAL ALLERGIES Allergy SINUS Uncoded 12/04/21 13:45 SYMPTOMS-GRASS TREES,DUST,POLLENS,MOLD Review of Systems ROS Statement: Those systems with pertinent positive or pertinent negative responses have been documented in the HPI. ROS Other: All systems not noted in ROS Statement are negative. Constitutional: Denies: fever Eyes: Denies: eye pain ENT: Denies: ear pain Respiratory: Denies: cough Cardiovascular: Denies: chest pain Endocrine: Denies: fatigue Gastrointestinal: Reports: as per HPI Genitourinary: Denies: dysuria Musculoskeletal: Reports: as per HPI Skin: Denies: rash Neurological: Denies: weakness Past Medical History Past Medical History: Atrial Fibrillation, Asthma, Coronary Artery Disease (CAD), Heart Failure, CVA/TIA, Diabetes Mellitus, Deep Vein Thrombosis (DVT), Fibromyalgia, Hyperlipidemia, Hypertension, Myocardial Infarction (IL), Osteoarthritis (OA), Pulmonary Embolus (PE), Skin Disorder, Thyroid Disorder Additional Past Medical History / Comment(s): frequent uti's,kidney stones,HEART MURMUR,cardiomyopathy,CHRONIC CONSTIPATION, ECZEMA,SINUS HEADACHES, HX ANEMIA, gout. stage III kidney disease stage 3,lower back pain. 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.FEEt, weakness LT SIDE, ,stg three kidney disease,eye disorder fuchs corneal dystrophy. Last Myocardial Infarction Date:: UNKNOWN History of Any Multi-Drug Resistant Organisms: ESBL, MRSA Date of last positivie culture/infection: 01/02/22 MRSA;02/28/18-ESBL MDRO Source:: Urine-MRSA; Urine ESBL Past Surgical History: Appendectomy, Cardiac Ablation, Cholecystectomy, Heart Catheterization, Heart Catheterization With Stent, Hysterectomy Additional Past Surgical History / Comment(s): PARTIAL HYSTERECTOMY 03/18/14 @ [facility]. CATARACT BLACK. WITH IMPLANTS. HEART CATH X 3 TOTAL 3 STENTS, lithotripsy,kidney stents-since removed. Past Anesthesia/Blood Transfusion Reactions: Motion Sickness Additional Past Anesthesia/Blood Transfusion Reaction / Comment(s): no hx blood transfusion Date of Last Stent Placement:: UNKNOWN Past Psychological History: Depression Smoking Status: Former smoker Past Alcohol Use History: None Reported Past Drug Use History: None Reported - Past Family History Father Additional Family Medical History / Comment(s): "HARDENEING OF THE ARTERIES AT AGE 41. SMOKED AND DRANK ETOH Mother Family Medical History: Cancer Additional Family Medical History / Comment(s): "cyst that ruptured between bowel and bladder" General Exam Limitations: no limitations General appearance: alert, in no apparent distress Head exam: Present: atraumatic Eye exam: Present: normal appearance Neck exam: Present: normal inspection Respiratory exam: Present: normal lung sounds bilaterally Cardiovascular Exam: Present: regular rate, normal rhythm Expanded Peripheral pulses: 2+: Posterior Tibialis (R), Posterior Tibialis (L) GI/Abdominal exam: Present: soft, tenderness (Mild right flank). Absent: distended Extremities exam: Present: normal inspection Neurological exam: Present: alert Psychiatric exam: Present: normal affect, normal mood Skin exam: Present: normal color Course Vital Signs 09/25/22 07:48 Temperature 97.9 F Pulse Rate 94 Respiratory 18 Rate Blood Pressure 130/65 O2 Sat by Pulse 94 L Oximetry - Reevaluation(s) Reevaluation #1: 09/25/22 10:09 . Patient refuses computed tomography scan. Patient refuses to attempt this. Patient states she will not lay down. Patient states she tried to have a computed tomography scan once before and cannot do it. Patient states she has not been able to lay down in years. Medical Decision Making - Medical Decision Making Was pt. sent in by a medical professional or institution (, PA, SECURITY CONTROL ROOM OFFICER, urgent care, hospital, or correction...) When possible be specific @ -No Did you speak to anyone other than the patient for history (EMS, parent, family, police, friend...)? What history was obtained from this source @ -No Did you review nursing and triage notes (agree or disagree)? Why? @ -I reviewed and agree with nursing and triage notes Were old charts reviewed (outside hosp., previous admission, EMS record, old EKG, old radiological studies, urgent care reports/EKG's, correction records)? Report findings @ -No old charts were reviewed Differential Diagnosis (chest pain, altered mental status, abdominal pain women, abdominal pain men, vaginal bleeding, weakness, fever, dyspnea, syncope, headache, dizziness, GI bleed, back pain, seizure, CVA, palpatations, mental health)? @ -Differential Abdominal Pain Women: Appendicitis, Cholecystitis, diverticulosis, ischemic bowel, pancreatitis, hepatitis, UTI, gastroenteritis, AAA, incarcerated hernia, bowel obstruction, constipation, inflammatory bowel, hepatitis, peptic ulcer disease, splenic infarction, perforated viscus, vulvitis, ovarian torsion, PID, kidney stone, placenta abruption, this is not meant to be an all-inclusive list EKG interpreted by me (3pts min.). @ -As above X-rays interpreted by me (1pt min.). @ -KUB shows nonspecific abdomen CT interpreted by me (1pt min.). @ -None done U/S interpreted by me (1pt. min.). @ -Report reviewed What testing was considered but not performed or refused? (CT, X-rays, U/S, labs)? Why? @ -None What meds were considered but not given or refused? Why? @ -None Did you discuss the management of the patient with other professionals (professionals i.e. , PA, SECURITY CONTROL ROOM OFFICER, lab, RT, psych nurse, social services specialist, tool and fixture repairer, teacher, multisensor intelligence officer, pillowcase turner)? Give summary @ -No Was smoking cessation discussed for >3mins.? @ -No Was critical care preformed (if so, how long)? @ -No Were there social determinants of health that impacted care today? How? (Homelessness, low income, unemployed, alcoholism, drug addiction, transportation, low edu. Level, literacy, decrease access to med. care, fpc, rehab)? @ -No Was there de-escalation of care discussed even if they declined (Discuss DNR or withdrawal of care, Hospice)? DNR status @ -No What co-morbidities impacted this encounter? (DM, HTN, Smoking, COPD, CAD, Cancer, CVA, ARF, Chemo, Hep., AIDS, mental health diagnosis, sleep apnea, morbid obesity)? @ -None Was patient admitted / discharged? Hospital course, mention meds given and route, prescriptions, significant lab abnormalities, going to OR and other pert inent info. @ -Patient reevaluated and resting comfortably in bed. Patient is comfortable with discharge home. Patient will be prescribed antibiotics and recommended follow-up with primary care physician. Patient specifically updated on need for primary care physician to review ultrasound report. Undiagnosed new problem with uncertain prognosis? @ -No Drug Therapy requiring intensive monitoring for toxicity (Heparin, Nitro, Insulin, Cardizem)? @ -No Were any procedures done? @ -No Diagnosis/symptom? @ -Urinary tract infection Acute, or Chronic, or Acute on Chronic? @ -Acute Uncomplicated (without systemic symptoms) or Complicated (systemic symptoms)? @ -default Side effects of treatment? @ -No Exacerbation, Progression, or Severe Exacerbation? @ -No Poses a threat to life or bodily function? How? (Chest pain, [place], [place], pneumonia, PE, COPD, DKA, ARF, appy, cholecystitis, CVA, Diverticulitis, Homicidal, Suicidal, threat to staff... and all critical care pts) @ -No - Lab Data Result diagrams: 09/25/22 08:24 09/25/22 08:24 Lab Results 09/25/22 09/25/22 09/25/22 Range/Units 08:24 08:24 08:24 WBC 12.6 H (3.8-10.6) k/uL RBC 4.70 (3.80-5.40) m/uL Hgb 11.4 (11.4-16.0) gm/dL Hct 37.3 (34.0-46.0) % MCV 79.3 L (80.0-100.0) fL MCH 24.2 L (25.0-35.0) pg MCHC 30.5 L (31.0-37.0) g/dL RDW 17.8 H (11.5-15.5) % Plt Count 190 (150-450) k/uL MPV 6.7 Neutrophils % 92 % Lymphocytes % 4 % Monocytes % 2 % Eosinophils % 2 % Basophils % 0 % Neutrophils # 11.6 H (1.3-7.7) k/uL Lymphocytes # 0.5 L (1.0-4.8) k/uL Monocytes # 0.2 (0-1.0) k/uL Eosinophils # 0.3 (0-0.7) k/uL Basophils # 0.0 (0-0.2) k/uL Hypochromasia Marked Anisocytosis Slight Microcytosis Slight Sodium 135 L (137-145) mmol/L Potassium 4.7 (3.5-5.1) mmol/L Chloride 102 (98-107) mmol/L Carbon Dioxide 26 (22-30) mmol/L Anion Gap 7 mmol/L BUN 26 H (7-17) mg/dL Creatinine 0.91 (0.52-1.04) mg/dL Est GFR (CKD-EPI)AfAm 76 (>60 ml/min/1.73 sqM) Est GFR (CKD-EPI)NonAf 65 (>60 ml/min/1.73 sqM) Glucose 151 H (74-99) mg/dL Calcium 8.6 (8.4-10.2) mg/dL Total Bilirubin 0.7 (0.2-1.3) mg/dL AST 22 (14-36) U/L ALT 14 (4-34) U/L Alkaline Phosphatase 118 (38-126) U/L Total Protein 6.8 (6.3-8.2) g/dL Albumin 3.7 (3.5-5.0) g/dL Amylase 56 (30-110) U/L Lipase 199 (23-300) U/L Urine Color Yellow Urine Appearance Cloudy H (Clear) Urine pH 6.5 (5.0-8.0) Ur Specific [place] 1.015 (1.001-1.035) Urine Protein 1+ H (Negative) Urine Glucose (UA) Negative (Negative) Urine Ketones Negative (Negative) Urine Blood Large H (Negative) Urine Nitrite Positive H (Negative) Urine Bilirubin Negative (Negative) Urine Urobilinogen <2.0 (<2.0) mg/dL Ur Leukocyte Esterase Large H (Negative) Urine RBC >182 H (0-5) /hpf Urine WBC >182 H (0-5) /hpf Ur Squamous Epith Cells 1 (0-4) /hpf Urine Bacteria Few H (None) /hpf Disposition Clinical Impression: UTI (urinary tract infection) Disposition: HOME SELF-CARE Condition: Stable Instructions (If sedation given, give patient instructions): Urinary Tract Infection in Women (ED) Additional Instructions: Please do follow-up with primary care physician in the next day or 2 for recheck. Have primary care physician review ultrasound report. Prescription has been sent to pharmacy. Return for increased pain, fever, vomiting, worsening symptoms or other concerns. Prescriptions: Nitrofurantoin Monohyd/M-Cryst [Macrobid] 100 mg PO Q12HR #20 cap Is patient prescribed a controlled substance at d/c from ED?: No Referrals: Lor Deluca MD [Primary Care Provider] - 1-2 days Time of Disposition: 14:01
[2022-09-25 09:25] LABS: Anisocytosis Slight; Basophils % (A) 0 %; Eosinophils # (A) 0.3 k/uL (0-0.7); Eosinophils % (A) 2 %; HCT 37.3 % (34.0-46.0); HGB 11.4 gm/dL (11.4-16.0); Hypochromasia Marked; Lymphocytes # (A) 0.5 k/uL (1.0-4.8); Lymphocytes % (A) 4 %; MCH 24.2 pg (25.0-35.0); MCHC 30.5 g/dL (31.0-37.0); MCV 79.3 fL (80.0-100.0); Mean Platelet Volume 6.7; Microcytosis Slight; Monocytes # (A) 0.2 k/uL (0-1.0); Monocytes % (A) 2 %; Neutrophils # (A) 11.6 k/uL (1.3-7.7); Neutrophils % (A) 92 %; Platelet Count 190 k/uL (150-450); RDW 17.8 % (11.5-15.5); WBC 12.6 k/uL (3.8-10.6)
[2022-09-25 09:34] LABS: ALT 14 U/L (4-34); AST 22 U/L (14-36); African American GFR (CKD) 76 (>60 ml/min/1.73 sqM); Albumin 3.7 g/dL (3.5-5.0); Alkaline Phosphatase 118 U/L (38-126); Amylase 56 U/L (30-110); Anion Gap 7 mmol/L; Blood Urea Nitrogen 26 mg/dL (7-17); Calcium 8.6 mg/dL (8.4-10.2); Carbon Dioxide 26 mmol/L (22-30); Chloride 102 mmol/L (98-107); Glucose 151 mg/dL (74-99); Lipase 199 U/L (23-300); Non-African American GFR(CKD) 65 (>60 ml/min/1.73 sqM); Potassium 4.7 mmol/L (3.5-5.1); Sodium 135 mmol/L (137-145); Total Bilirubin 0.7 mg/dL (0.2-1.3); Total Protein 6.8 g/dL (6.3-8.2)
[2022-09-25 10:25] LABS: Appearance,Urine Cloudy (Clear); Bacteria,Urine Few /hpf; Bilirubin,Urine Negative (Negative); Blood,Urine Large (Negative); Color,Urine Yellow; Glucose,Urine (UA) Negative (Negative); Ketones,Urine Negative (Negative); Leukocyte Esterase,Urine Large (Negative); Nitrite,Urine Positive (Negative); PH, Urine 6.5 (5.0-8.0); Protein,Urine 1+ (Negative); RBC,Urine >182 /hpf (0-5); Specific Gravity,Urine 1.015 (1.001-1.035); Squamous Epithelial Cell,Urine 1 /hpf (0-4); Urobilinogen,Urine <2.0 mg/dL (<2.0); WBC,Urine >182 /hpf (0-5)
--- NOTE | 2022-09-25 11:48 | US ---
EXAMINATION TYPE: US abdomen complete DATE OF EXAM: 09/25/2022 COMPARISON: NONE CLINICAL INDICATION: Female, 66 years old with history of abp; Pain, more right flank, GB removed TECHNIQUE: Multiple sonographic images of the abdomen are obtained. FINDINGS: EXAM MEASUREMENTS: Liver Length: 16.5 cm CBD: 0.4 cm Spleen: 12.4 cm Right Kidney: 10.6 x 5.4 x 5.2 cm Left Kidney: 8.5 x 4.6 x 4.7 cm ASSISTANT REAL ESTATE MANAGER NOTES: Obese, immobile pt, very difficult/limited visualization Pancreas: 4mm panc duct, tail obscured by overlying bowel gas Liver: Limited views, Visualized portions appeared wnl Gallbladder: Surgically absent Evidence for sonographic Humphries's sign: Yes CBD: wnl Spleen: wnl Right Kidney: Limited views due to overlying bowel gas Anechoic lesion upper pole= 3.7 x 2.4 x 2.3 c m/ no evidence of hydro, possible calculi scattered throughout kidney, largest mid= 8mm Left Kidney: Limited views due to overlying bowel gas Small in size, no evidence of hydro Upper IVC: wnl Abd Aorta: Obscured by overlying bowel gas IMPRESSION: 1. Mild prominence of the pancreatic duct within head of the pancreas. Consider follow-up with ERCP. 2. Nonobstructing right renal stones. 3. Right renal cyst superior pole
--- NOTE | 2022-09-25 12:08 | XR ---
EXAMINATION TYPE: XR abdomen 1V DATE OF EXAM: 09/25/2022 COMPARISON: None INDICATION: Right flank pain TECHNIQUE: Single view abdomen supine view FINDINGS: There is a normal bowel gas pattern. Psoas margins are normal. No organomegaly is present. There is a phlebolith within the right hemipelvis. Previous right renal stone is not identified. Righ t ureteral stents. Surgical clips in the left hemipelvis. Surgical clips are in the right lower quadr ant. IMPRESSION: 1. Unremarkable Abdomen
== END 2022-09-25 15:31 | disposition home or self-care (01) ==
LOC: EC 07:43
DX: N39.0 Urinary tract infection, site not specified (principal); I48.91 Unspecified atrial fibrillation; J45.909 Unspecified asthma, uncomplicated; I25.10 Atherosclerotic heart disease of native coronary artery without angina pectoris; I13.0 Hypertensive heart and chronic kidney disease with heart failure and stage 1 through stage 4 chronic kidney disease, or unspecified chronic kidney disease; I50.9 Heart failure, unspecified; E11.22 Type 2 diabetes mellitus with diabetic chronic kidney disease; N18.30 Chronic kidney disease, stage 3 unspecified; I25.2 Old myocardial infarction; E78.5 Hyperlipidemia, unspecified; M19.90 Unspecified osteoarthritis, unspecified site; E07.9 Disorder of thyroid, unspecified; Z86.73 Personal history of transient ischemic attack (TIA), and cerebral infarction without residual deficits; Z86.718 Personal history of other venous thrombosis and embolism; F32.A Depression, unspecified; Z87.891 Personal history of nicotine dependence; Z91.040 Latex allergy status; Z91.011 Allergy to milk products; Z88.8 Allergy status to other drugs, medicaments and biological substances; Z91.048 Other nonmedicinal substance allergy status; Z79.82 Long term (current) use of aspirin; Z79.84 Long term (current) use of oral hypoglycemic drugs; Z79.890 Hormone replacement therapy; Z79.899 Other long term (current) drug therapy
CPT/HCPCS: 36415; 74018; 76700; 80053; 81001; 82150; 83690; 85025; 87077; 87086; 87186; 96360; 96361; 99285

== ENCOUNTER 2022-09-27 09:15 | Inpatient (IN) | payer MEDICARE ==
--- NOTE | 2022-09-27 10:32 | ED ---
General Adult HPI - General Chief complaint: Weakness Stated complaint: General Weakness Time Seen by Provider: 09/27/22 09:17 Source: EMS Mode of arrival: EMS - History of Present Illness Initial comments: Dictation was produced using [employer] dictation software. please excuse any grammatical, word or spelling errors. Chief Complaint: 66-year-old female past medical history of drug-resistant urinary tract infection, A. fib diabetes presents emergency department after fall History of Present Illness: 66-year-old female she seen here in emergency department 2 days ago. Patient was diagnosed with urinary tract infection. She prescription for nitrofurantoin discharged home. Today she got up to go to the bathroom. She has been feeling weak. She felt so weak that she can pull up her pants. She tried to walk with her pants down when she allegedly fell and could not get up. EMS was called patient is brought to the ER. Patient lives at home by herself. She does have difficulty taking care of herself she does have visiting caretakers at home The ROS documented in this emergency department record has been reviewed and confirmed by me. Those systems with pertinent positive or negative responses have been documented in the HPI. All other systems are other negative and/or noncontributory. - Related Data Home Medications Medication Instructions Recorded Confirmed Montelukast [Singulair] 10 mg PO HS 08/28/17 09/27/22 Metoprolol Succinate (ER) [Toprol 100 mg PO DAILY 05/03/20 09/27/22 XL] Rivaroxaban [Xarelto] 20 mg PO W/SUPPER 05/03/20 09/27/22 Acetaminophen Tab [Tylenol] 1,000 mg PO Q6H PRN 05/22/21 09/27/22 Levothyroxine Sodium [Synthroid] 125 mcg PO AC-BRKFST 05/22/21 09/27/22 Loratadine [Claritin] 10 mg PO DAILY PRN 05/22/21 09/27/22 Rosuvastatin [Crestor] 20 mg PO HS 05/22/21 09/27/22 methocarbamoL [Robaxin] 500 mg PO TID PRN 05/22/21 09/27/22 Glimepiride [Amaryl] 2 mg PO AC-BRKFST 12/04/21 09/27/22 Isosorbide Mononitrate ER [Imdur] 30 mg PO DAILY 12/04/21 09/27/22 Nitroglycerin Sl Tabs [Nitrostat] 0.4 mg SL Q5M PRN 12/04/21 09/27/22 DULoxetine HCL [Cymbalta] 30 mg PO BID 09/27/22 09/27/22 Meloxicam [Mobic] 15 mg PO DAILY 09/27/22 09/27/22 Menthol-Zinc Oxide Oint 1 applic TOPICAL BID 09/27/22 09/27/22 [Calmoseptine Ointment] Nystatin 100,000 Unit/gm Powd 1 applic TOPICAL TID 09/27/22 09/27/22 [Mycostatin Powder] Omeprazole [PriLOSEC] 20 mg PO AC-BRKFST 09/27/22 09/27/22 allopurinoL 100 mg PO DAILY 09/27/22 09/27/22 busPIRone HCl [Buspar] 10 mg PO BID 09/27/22 09/27/22 lisinopriL [Zestril] 5 mg PO DAILY 09/27/22 09/27/22 Previous Rx's Medication Instructions Recorded Nitrofurantoin Monohyd/M-Cryst 100 mg PO Q12HR #20 cap 09/25/22 [Macrobid] Allergies Allergy/AdvReac Type Severity Reaction Status Date / Time grass pollen Allergy Sinus Verified 09/27/22 10:10 latex Allergy Rash/Hives Verified 09/27/22 10:10 mold Allergy Sinus Verified 09/27/22 10:10 pollen extracts Allergy Sinus Verified 09/27/22 10:10 tree and shrub pollen Allergy Sinus Verified 09/27/22 10:10 Milk Containing Products AdvReac THRUSH Verified 09/27/22 10:10 [Dairy] Tetracyclines AdvReac YEAST Verified 09/27/22 10:10 INFECTION- PREFERS NOT TO TAKE ENVIRONMENTAL ALLERGIES Allergy SINUS Uncoded 09/27/22 09:31 SYMPTOMS-GRASS TREES,DUST,POLLENS,MOLD Review of Systems ROS Statement: Those systems with pertinent positive or pertinent negative responses have been documented in the HPI. ROS Other: All systems not noted in ROS Statement are negative. Past Medical History Past Medical History: Atrial Fibrillation, Asthma, Coronary Artery Disease (CAD), Heart Failure, CVA/TIA, Diabetes Mellitus, Deep Vein Thrombosis (DVT), Fibromyalgia, Hyperlipidemia, Hypertension, Myocardial Infarction (UT), Osteo arthritis (OA), Pulmonary Embolus (PE), Skin Disorder, Thyroid Disorder Additional Past Medical History / Comment(s): frequent uti's,kidney stones,HEART MURMUR,cardiomyopathy,CHRONIC CONSTIPATION, ECZEMA,SINUS HEADACHES, HX ANEMIA, gout. stage III kidney disease stage 3,lower back pain. 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.FEEt, weakness LT SIDE, ,stg three kidney disease,eye disorder fuchs corneal dystrophy. Last Myocardial Infarction Date:: UNKNOWN History of Any Multi-Drug Resistant Organisms: ESBL, MRSA Date of last positivie culture/infection: 01/02/22 MRSA;02/28/18-ESBL MDRO Source:: Urine-MRSA; Urine ESBL Past Surgical History: Appendectomy, Cardiac Ablation, Cholecystectomy, Heart Catheterization, Heart Catheterization With Stent, Hysterectomy Additional Past Surgical History / Comment(s): PARTIAL HYSTERECTOMY 03/18/14 @ [facility]. CATARACT BLACK. WITH IMPLANTS. HEART CATH X 3 TOTAL 3 STENTS, lithotripsy,kidney stents-since removed. Past Anesthesia/Blood Transfusion Reactions: Motion Sickness Additional Past Anesthesia/Blood Transfusion Reaction / Comment(s): no hx blood transfusion Date of Last Stent Placement:: UNKNOWN Past Psychological History: Depression Smoking Status: Former smoker Past Alcohol Use History: None Reported Past Drug Use History: None Reported - Past Family History Father Additional Family Medical History / Comment(s): "HARDENEING OF THE ARTERIES AT AGE 41. SMOKED AND DRANK ETOH Mother Family Medical History: Cancer Additional Family Medical History / Comment(s): "cyst that ruptured between b owel and bladder" General Exam - General Exam Comments Initial Comments: PHYSICAL EXAM: General Impression: Alert and oriented x3, not in acute distress, morbidly obese HEENT: Normocephalic atraumatic, extra-ocular movements intact, pupils equal and reactive to light bilaterally, mucous membranes moist. Cardiovascular: Heart regular rate and rhythm Chest: Able to complete full sentences, no retractions, no tachypnea Abdomen: abdomen soft, non-tender, non-distended, no organomegaly Musculoskeletal: Pulses present and equal in all extremities, no peripheral edema Motor: no focal deficits noted Neurological: CN II-XII grossly intact, no focal motor or sensory deficits noted Skin: Skin breakdown over the buttocks Psych: Normal affect and mood Course Vital Signs 09/27/22 09/27/22 09/27/22 09:21 09:56 10:57 Temperature 99.3 F Pulse Rate 106 H 105 H Respiratory 18 22 22 Rate Blood Pressure 95/37 82/52 O2 Sat by Pulse 95 95 Oximetry 09/27/22 09/27/22 11:20 12:53 Temperature Pulse Rate 108 H 106 H Respiratory 22 18 Rate Blood Pressure 99/68 125/55 O2 Sat by Pulse 94 L 94 L Oximetry Medical Decision Making - Medical Decision Making Was pt. sent in by a medical professional or institution (, PA, APPLICATION SUPPORT ANALYST, urgent care, hospital, or custodial...) When possible be specific @ -No Did you speak to anyone other than the patient for history (EMS, parent, family, police, friend...)? What history was obtained from this source @ -No Did you review nursing and triage notes (agree or disagree)? Why? @ -I reviewed and agree with nursing and triage notes Were old charts reviewed (outside hosp., previous admission, EMS record, old EKG, old radiological studies, urgent care reports/EKG's, custodial records)? Report findings @ -No old charts were reviewed Differential Diagnosis (chest pain, altered mental status, abdominal pain women, abdominal pain men, vaginal bleeding, musculoskeletal, weakness, fever, dyspnea, syncope, headache, dizziness, GI bleed, back pain, seizure, CVA, palpatations, mental health)? @ -Differential Weakness: Hypoglycemia, shock, sepsis, hyponatremia, anemia, infection, UT, ETOH, adverse medicine reaction, overdose, stroke, this is not meant to be an all-inclusive list. EKG interpreted by me (3pts min.). @ -My EKG interpretation: Ventricular rate 104, sinus tachycardia,. 195, QRS status, QTC 422. No RI prolongation, no QTC prolongation, no ST or T-wave changes noted. T-wave inversions in septal lateral leads X-rays interpreted by me (1pt min.). @ -None done CT interpreted by me (1pt min.). @ -Computed tomography scan lumbar spine and computed tomography scan of head and C-spine shows no acute processes. U/S interpreted by me (1pt. min.). @ -None done What testing was considered but not performed or refused? (CT, X-rays, U/S, labs)? Why? @ -None What meds were considered but not given or refused? Why? @ -None Did you discuss the management of the patient with other professionals (professionals i.e. , PA, APPLICATION SUPPORT ANALYST, lab, RT, psych nurse, social service assistant, tie binder, teacher, enforcement safety officer, pillowcase sewer)? Give summary @ -Case discussed with Dr. barnhart for admission. Lab abnormalities were discussed Was smoking cessation discussed for >3mins.? @ -No Was critical care preformed (if so, how long)? @ -No Were there social determinants of health that impacted care today? How? (Homelessness, low income, unemployed, alcoholism, drug addiction, transportation, low edu. Level, literacy, decrease access to med. care, long-term, rehab)? @ -No Was there de-escalation of care discussed even if they declined (Discuss DNR or withdrawal of care, Hospice)? DNR status @ -No What co-morbidities impacted this encounter? (DM, HTN, Smoking, COPD, CAD, Cancer, CVA, ARF, Chemo, Hep., AIDS, mental health diagnosis, sleep apnea, morbid obesity)? @ -None Was patient admitted / discharged? Hospital course, mention meds given and route, prescriptions, significant lab abnormalities, going to OR and other pertinent info. @ -66-year-old female presents emergency department after fall. She lives at home by herself. She has a poor social situation. Vital signs are stable. Patient is so weak that she was unable to pull up her pants after using the bathroom. States she fell secondary to that he could not get up. Laboratory evaluation obtained. Leukocytosis of 40.1. Patient does not have a history of leukocytosis. Metabolic panel shows acute kidney injury. Creatinine 2.7. Rest of labs within acceptable limits. Pending urine studies. Patient does not have any localizing symptoms. Blood culture is pending. Patient started on broad-spectrum antibiotics. Nephrology will be consulted for acute kidney injury, infectious disease of be consulted for no leukocytosis. Undiagnosed new problem with uncertain prognosis? @ -No Drug Therapy requiring intensive monitoring for toxicity (Heparin, Nitro, Insulin, Cardizem)? @ -No Were any procedures done? @ -No Diagnosis/symptom? Acute, or Chronic, or Acute on Chronic? Uncomplicated (without systemic symptoms) or Complicated (systemic symptoms)? @ -1. Fall, 2. Back strain, 3. SIRS Side effects of treatment? @ -No Exacerbation, Progression, or Severe Exacerbation? @ -No Poses a threat to life or bodily function? How? (Chest pain, USA, UT, pneumonia, PE, COPD, DKA, ARF, appy, cholecystitis, CVA, Diverticulitis, Homicidal, Suici kermit, threat to staff... and all critical care pts) @ -yes - Lab Data Result diagrams: 09/27/22 10:40 09/27/22 10:40 Lab Results 09/27/22 09/27/22 Range/Units 10:40 10:40 WBC 40.1 H (3.8-10.6) k/uL RBC 4.23 (3.80-5.40) m/uL Hgb 10.6 L (11.4-16.0) gm/dL Hct 33.5 L (34.0-46.0) % MCV 79.1 L (80.0-100.0) fL MCH 24.9 L (25.0-35.0) pg MCHC 31.5 (31.0-37.0) g/dL RDW 18.1 H (11.5-15.5) % Plt Count 146 L (150-450) k/uL MPV 8.1 Neutrophils % (Manual) 82 % Band Neuts % (Manual) 8 % Lymphocytes % (Manual) 3 % Monocytes % (Manual) 2 % Metamyelocytes % 6 % Neutrophils # (Manual) 36.00 H (1.3-7.7) k/uL Lymphocytes # (Manual) 1.20 (1.0-4.8) k/uL Monocytes # (Manual) 0.80 (0-1.0) k/uL Metamyelocytes # (Man) 2.41 H (0) k/uL Nucleated RBCs 0 (0-0) /100 WBC Manual Slide Review Performed Toxic Vacuolation Present Hypochromasia Marked Anisocytosis Slight Microcytosis Slight Spherocytes Not Reportable Sodium 133 L (137-145) mmol/L Potassium 5.3 H (3.5-5.1) mmol/L Chloride 100 (98-107) mmol/L Carbon Dioxide 19 L (22-30) mmol/L Anion Gap 14 mmol/L BUN 38 H (7-17) mg/dL Creatinine 2.71 H (0.52-1.04) mg/dL Est GFR (CKD-EPI)AfAm 20 (>60 ml/min/1.73 sqM) Est GFR (CKD-EPI)NonAf 18 (>60 ml/min/1.73 sqM) Glucose 288 H (74-99) mg/dL Calcium 8.2 L (8.4-10.2) mg/dL Magnesium 1.6 (1.6-2.3) mg/dL Total Bilirubin 1.0 (0.2-1.3) mg/dL AST 59 H (14-36) U/L ALT 36 H (4-34) U/L Alkaline Phosphatase 97 (38-126) U/L Total Protein 5.9 L (6.3-8.2) g/dL Albumin 3.1 L (3.5-5.0) g/dL Disposition Clinical Impression: Fall Disposition: ADMITTED IP TO THIS HOSP Referrals: Lor Deluca MD [Primary Care Provider] - 1-2 days Decision Time: 12:15
[2022-09-27 11:10] LABS: AST 59 U/L (14-36); African American GFR (CKD) 20 (>60 ml/min/1.73 sqM); Albumin 3.1 g/dL (3.5-5.0); Alkaline Phosphatase 97 U/L (38-126); Anion Gap 14 mmol/L; Blood Urea Nitrogen 38 mg/dL (7-17); Calcium 8.2 mg/dL (8.4-10.2); Carbon Dioxide 19 mmol/L (22-30); Chloride 100 mmol/L (98-107); Glucose 288 mg/dL (74-99); Magnesium 1.6 mg/dL (1.6-2.3); Non-African American GFR(CKD) 18 (>60 ml/min/1.73 sqM); Potassium 5.3 mmol/L (3.5-5.1); Sodium 133 mmol/L (137-145); Total Protein 5.9 g/dL (6.3-8.2)
[2022-09-27 11:19] LABS: ALT 36 U/L (4-34)
[2022-09-27] MEDS ORDERED: SODIUM CHLORIDE 0.9% 1,000 ML IV STA (11:29)
--- NOTE | 2022-09-27 11:44 | CT ---
EXAMINATION TYPE: CT brain roxi fisher DATE OF EXAM: 09/27/2022 COMPARISON: 02/26/2018 HISTORY: Fall, pain CT DLP: 1665.[address] of the brain was performed. The ventricles, basal cisterns and sulci overlying the cerebral convexities demonstrate mild enlargem ent. There is no evidence for intracranial hemorrhage or sulcal effacement. There is decreased attenuatio n about the periventricular white matter and deep white matter of both cerebral hemispheres, compatib le with chronic small vessel ischemia. No mass effects are seen. If symptoms persist consider MRI. Osseous calvarium is intact. Moderate sphenoid sinus opacification. IMPRESSION: 1. Age related atrophic and chronic small vessel ischemic change without acute intracranial process seen at this time. CT Cervical Spine: Unenhanced CT of the cervical spine was performed with bone and soft tissue window settings submitted . Coronal and sagittal reconstruction is obtained. There is normal alignment and prevertebral soft tissues. No evidence for acute cervical fracture . Scattered degenerative disc disease and spondylosis. Biapical scarring. IMPRESSION: 1. No evidence for acute fracture or subluxation of the cervical spine.
[2022-09-27 12:03] LABS: Anisocytosis Slight; HCT 33.5 % (34.0-46.0); HGB 10.6 gm/dL (11.4-16.0); Hypochromasia Marked; MCH 24.9 pg (25.0-35.0); MCHC 31.5 g/dL (31.0-37.0); MCV 79.1 fL (80.0-100.0); Mean Platelet Volume 8.1; Microcytosis Slight; Platelet Count 146 k/uL (150-450); RBC 4.23 m/uL (3.80-5.40); RDW 18.1 % (11.5-15.5); WBC 40.1 k/uL (3.8-10.6)
--- NOTE | 2022-09-27 12:05 | CT ---
EXAMINATION TYPE: CT lumbar spine wo con DATE OF EXAM: 09/27/2022 COMPARISON: 05/23/2021 HISTORY: 66-year-old female Fall, pain TECHNIQUE: Contiguous axial scanning of the lumbar spine without IV contrast. Coronal and sagittal re constructions performed. CT DLP: 2096.4 mGycm Automated exposure control for dose reduction was used. FINDINGS: Imaging is limited due to patient's large body habitus. Renal cysts partially visualized measuring up to 3.5 cm. Renal calculi are present measuring up to 1.3 cm. Low-attenuation hepatic parenchyma sugg esting fatty infiltration.. Vertebral body heights are preserved. Alignment is maintained. No acute fracture is identified allowing for the prominent exam limitations. Hypertrophic facet arthropathy mid to lower lumbar spine especially towards the right. Limited assessment of the spinal canal shows no gia canal compromise. On the left, there is moderate neuroforaminal narrowing at L5-S1 and mild at L4-L5. On the right, there is moderate to severe neuroforaminal stenosis at L5-S1. IMPRESSION: 1. OSTEOPENIA AND EXTENSIVE ARTIFACTS FROM PATIENT'S VERY LARGE BODY HABITUS LIMITS EVALUATION. NO OB VIOUS ACUTE FRACTURE IS IDENTIFIED. NO VERTEBRAL COMPRESSION COLLAPSE OR MALALIGNMENT IS SEEN. 2. HYPERTROPHIC FACET ARTHROPATHY MID TO LOWER LUMBAR SPINE ESPECIALLY TOWARDS THE RIGHT. 3. MODERATE TO SEVERE RIGHT NEUROFORAMINAL STENOSIS AT L5-S1 AND MODERATE ON THE LEFT. 4. NEPHROLITHIASIS. HEPATIC STEATOSIS.
[2022-09-27 12:31] LABS: Band Neutrophils % 8 %; Metamyelocytes # (M) 2.41 k/uL (0); Metamyelocytes % 6 %; Neutrophils % (M) 82 %; Nucleated Red Blood Cells 0 /100 WBC (0-0); Total Cells Counted 200
[2022-09-27 12:42] LABS: Toxic Vacuolation Present
[2022-09-27] MEDS ORDERED: HYDROcodone/APAP 5-325MG 1 EACH TAB PO STA (12:42)
[2022-09-27] MEDS ORDERED: NALOXONE 0.4 MG/ML 1 ML VIAL IV PRN (12:46)
[2022-09-27] MEDS ORDERED: VANCOMYCIN IV PER PHARMACY 1 EACH MISC MISCELLANE PRN (12:56)
[2022-09-27] MEDS: SODIUM CHLORIDE 0.9% 1,000 ML IV SCH (13:00)
[2022-09-27] MEDS ORDERED: SODIUM CHLORIDE 0.9% IV STA (13:01)
--- NOTE | 2022-09-27 13:02 | ED ---
Medical Decision Making - Lab Data Result diagrams: 09/27/22 10:40 09/27/22 10:40 Lab Results 09/27/22 09/27/22 Range/Units 10:40 10:40 WBC 40.1 H (3.8-10.6) k/uL RBC 4.23 (3.80-5.40) m/uL Hgb 10.6 L (11.4-16.0) gm/dL Hct 33.5 L (34.0-46.0) % MCV 79.1 L (80.0-100.0) fL MCH 24.9 L (25.0-35.0) pg MCHC 31.5 (31.0-37.0) g/dL RDW 18.1 H (11.5-15.5) % Plt Count 146 L (150-450) k/uL MPV 8.1 Neutrophils % (Manual) 82 % Band Neuts % (Manual) 8 % Lymphocytes % (Manual) 3 % Monocytes % (Manual) 2 % Metamyelocytes % 6 % Neutrophils # (Manual) 36.00 H (1.3-7.7) k/uL Lymphocytes # (Manual) 1.20 (1.0-4.8) k/uL Monocytes # (Manual) 0.80 (0-1.0) k/uL Metamyelocytes # (Man) 2.41 H (0) k/uL Nucleated RBCs 0 (0-0) /100 WBC Manual Slide Review Performed Toxic Vacuolation Present Hypochromasia Marked Anisocytosis Slight Microcytosis Slight Spherocytes Not Reportable Sodium 133 L (137-145) mmol/L Potassium 5.3 H (3.5-5.1) mmol/L Chloride 100 (98-107) mmol/L Carbon Dioxide 19 L (22-30) mmol/L Anion Gap 14 mmol/L BUN 38 H (7-17) mg/dL Creatinine 2.71 H (0.52-1.04) mg/dL Est GFR (CKD-EPI)AfAm 20 (>60 ml/min/1.73 sqM) Est GFR (CKD-EPI)NonAf 18 (>60 ml/min/1.73 sqM) Glucose 288 H (74-99) mg/dL Calcium 8.2 L (8.4-10.2) mg/dL Magnesium 1.6 (1.6-2.3) mg/dL Total Bilirubin 1.0 (0.2-1.3) mg/dL AST 59 H (14-36) U/L ALT 36 H (4-34) U/L Alkaline Phosphatase 97 (38-126) U/L Total Protein 5.9 L (6.3-8.2) g/dL Albumin 3.1 L (3.5-5.0) g/dL Disposition Clinical Impression: Fall, Leukocytosis Disposition: ADMITTED IP TO THIS HOSP Referrals: Lor Deluca MD [Primary Care Provider] - 1-2 days Procedures - Sepsis Sepsis Focused Exam #1 Time Sepsis Criteria Met: 13:00 Sepsis Focused Exam Date: 09/27/22 Sepsis Focused Exam Time: 13:01 Sepsis Focused Exam Complete: Yes Vital Signs & RN Notes Reviewed: Yes Capillary Refill: < 2 Seconds: Fingers, Toes Peripheral Pulses: Normal: Radial (R), Radial (L), Posterior Tibialis (R), Posterior Tibialis (L), Dorsalis Pedis (R), Dorsalis Pedis (L) Skin Color: Normal for Patient Respiratory Exam: normal lung sounds Cardiovascular Exam: regular rate (Patient is 5 feet 2 inches. Her ideal body weight is 49.9. Patient given 30 mL per KG bolus. Blood cultures pending.)
[2022-09-27] MEDS ORDERED: VANCOMYCIN 1,750 MG in SODIUM CHLORIDE 0.9% 500 ML 500 ML IVPB ONE (13:30)
--- NOTE | 2022-09-27 14:38 | P.HPIM ---
History of Present Illness This is a pleasant 66 years old female with multiple medical problems as below Atrial Fibrillation, Asthma, Coronary Artery Disease, Heart Failure, CVA/TIA, Diabetes Mellitus, Deep Vein Thrombosis , Fibromyalgia, Hyperlipidemia, Hyp ertension, Osteoarthritis (OA), Pulmonary Embolus (PE), hypothyroidism, constipation, chronic kidney disease stage III, neuropathy, depression Patient presents because of she fell at home without losing consciousness and feeling generally weak for the last 2 days. Patient could not get up after she fell After a fall she's been having more pain in her neck. Also she's been complaining of from some back pain for the last few days She is also complaining of from right-sided abdominal pain and bright: Pain most likely related to recent UTI,Pain is not specific on the right side mild to moderate in severity with no relieving or precipitating factors Patient is mildly tachycardic around 106 Blood pressure is borderline on admission 82/52 Osteopenia and extensive artifacts from patient very large body habitus limited evaluation. Hypertrophic facet arthropathy, moderate to severe right neural foraminal stenosis at L5-S1 and nephrolithiasis and hepatic steatosis CT of the brain: Age-related atrophy with no acute intracranial process. Cervical spine acute is negative for acute pathology Abdominal x-ray on 09/25: Unremarkable abdomen Abdominal ultrasound: Mild prominence of the pancreatic duct within the head of the pancreas, consider follow-up with ERCP. Nonobstructing right renal stones. Right renal cyst superior pole Urine analysis is suspicious for infection on Room emergency room ID team, hematology/oncology and nephrology was consulted Creatinine went up to 0.9 and 2.7. Was elevated. Liver enzymes mildly elevated with AST 59 and ALT 36 with normal bilirubin. Lipase is normal. Urine culture: Gram-negative Review of Systems Review of systems CONSTITUTIONAL: No fever, no malaise, no fatigue. HEENT: No recent visual problems or hearing problems. Denied any sore throat. CARDIOVASCULAR: No orthopnea, PND, no palpitations, no syncope. PULMONARY: no cough, no hemoptysis. GASTROINTESTINAL: No diarrhea, no vomiting,. Normoactive bowel sounds. NEUROLOGICAL: No headaches, no weakness, no numbness. HEMATOLOGICAL: Denies any bleeding or petechiae. GENITOURINARY: Denies any burning micturition, frequency, or urgency. MUSCULOSKELETAL/RHEUMATOLOGICAL: Denies any joint pain, swelling ENDOCRINE: Denies any polyuria or polydipsia. Past Medical History Past Medical History: Atrial Fibrillation, Asthma, Coronary Artery Disease (CAD), Heart Failure, CVA/TIA, Diabetes Mellitus, Deep Vein Thrombosis (DVT), Fibromyalgia, Hyperlipidemia, Hypertension, Myocardial Infarction ([place]), Osteoarthritis (OA), Pulmonary Embolus (PE), Skin Disorder, Thyroid Disorder Additional Past Medical History / Comment(s): frequent uti's,kidney stones,HEART MURMUR,cardiomyopathy,CHRONIC CONSTIPATION, ECZEMA,SINUS HEADACHES, HX ANEMIA, gout. stage III kidney disease stage 3,lower back pain. 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.FEEt, weakness LT SIDE, ,stg three kidney disease,eye disorder fuchs corneal dystrophy. Last Myocardial Infarction Date:: UNKNOWN History of Any Multi-Drug Resistant Organisms: ESBL, MRSA Date of last positivie culture/infection: 01/02/22 MRSA;02/28/18-ESBL MDRO Source:: Urine-MRSA; Urine ESBL Past Surgical History: Appendectomy, Cardiac Ablation, Cholecystectomy, Heart Catheterization, Heart Catheterization With Stent, Hysterectomy Additional Past Surgical History / Comment(s): PARTIAL HYSTERECTOMY 03/18/14 @ [facility]. CATARACT BLACK. WITH IMPLANTS. HEART CATH X 3 TOTAL 3 STENTS, lithotripsy,kidney stents-since removed. Past Anesthesia/Blood Transfusion Reactions: Motion Sickness Additional Past Anesthesia/Blood Transfusion Reaction / Comment(s): no hx blood transfusion Date of Last Stent Placement:: UNKNOWN Past Psychological History: Depression Smoking Status: Former smoker Past Alcohol Use History: None Reported Past Drug Use History: None Reported - Past Family History Father Additional Family Medical History / Comment(s): "HARDENEING OF THE ARTERIES AT AGE 41. SMOKED AND DRANK ETOH Mother Family Medical History: Cancer Additional Family Medical History / Comment(s): "cyst that ruptured between bowel and bladder" Medications and Allergies Home Medications Medication Instructions Recorded Confirmed Type Montelukast [Singulair] 10 mg PO HS 08/28/17 09/27/22 History Metoprolol Succinate (ER) [Toprol 100 mg PO DAILY 05/03/20 09/27/22 History XL] Rivaroxaban [Xarelto] 20 mg PO W/SUPPER 05/03/20 09/27/22 History Acetaminophen Tab [Tylenol] 1,000 mg PO Q6H PRN 05/22/21 09/27/22 History Levothyroxine Sodium [Synthroid] 125 mcg PO -KT 05/22/21 09/27/22 History Loratadine [Claritin] 10 mg PO DAILY PRN 05/22/21 09/27/22 History Rosuvastatin [Crestor] 20 mg PO HS 05/22/21 09/27/22 History methocarbamoL [Robaxin] 500 mg PO TID PRN 05/22/21 09/27/22 History Glimepiride [Amaryl] 2 mg PO -[facility] [[email or web address]T 12/04/21 09/27/22 History Isosorbide Mononitrate ER [Imdur] 30 mg PO DAILY 12/04/21 09/27/22 History Nitroglycerin Sl Tabs [Nitrostat] 0.4 mg SL Q5M PRN 12/04/21 09/27/22 History Nitrofurantoin Monohyd/M-Cryst 100 mg PO Q12HR #20 cap 09/25/22 09/27/22 Rx [Macrobid] DULoxetine HCL [Cymbalta] 30 mg PO BID 09/27/22 09/27/22 History Meloxicam [Mobic] 15 mg PO DAILY 09/27/22 09/27/22 History Menthol-Zinc Oxide Oint 1 applic TOPICAL BID 09/27/22 09/27/22 History [Calmoseptine Ointment] Nystatin 100,000 Unit/gm Powd 1 applic TOPICAL TID 09/27/22 09/27/22 History [Mycostatin Powder] Omeprazole [PriLOSEC] 20 mg PO -[facility] 09/27/22 09/27/22 History allopurinoL 100 mg PO DAILY 09/27/22 09/27/22 History busPIRone HCl [Buspar] 10 mg PO BID 09/27/22 09/27/22 History lisinopriL [Zestril] 5 mg PO DAILY 09/27/22 09/27/22 History Allergies Allergy/AdvReac Type Severity Reaction Status Date / Time grass pollen Allergy Sinus Verified 09/27/22 10:10 latex Allergy Rash/Hives Verified 09/27/22 10:10 mold Allergy Sinus Verified 09/27/22 10:10 pollen extracts Allergy Sinus Verified 09/27/22 10:10 tree and shrub pollen Allergy Sinus Verified 09/27/22 10:10 Milk Containing Products AdvReac THRUSH Verified 09/27/22 10:10 [Dairy] Tetracyclines AdvReac YEAST Verified 09/27/22 10:10 INFECTION- PREFERS NOT TO TAKE ENVIRONMENTAL ALLERGIES Allergy SINUS Uncoded 09/27/22 09:31 SYMPTOMS-GRASS TREES,DUST,POLLENS,MOLD Physical Exam Vitals: Vital Signs Temp Pulse Resp BP Pulse Ox 09/27/22 12:53 106 H 18 125/55 94 L 09/27/22 11:20 108 H 22 99/68 94 L 09/27/22 10:57 105 H 22 82/52 95 09/27/22 09:56 22 09/27/22 09:21 99.3 F 106 H 18 95/37 95 Intake and Output 09/26/22 09/27/22 09/27/22 22:59 06:59 14:59 Other: Weight 113.353 kg GENERAL: The patient is alert and oriented x3, not in any acute distress. Well developed, well nourished. HEENT: Pupils are round and equally reacting to light. EOMI. No scleral icterus. No conjunctival pallor. Normocephalic, atraumatic. No pharyngeal erythema. No thyromegaly. CARDIOVASCULAR: S1 and S2 present. No murmurs, rubs, or gallops. PULMONARY: Chest is clear to auscultation, no wheezing , no crackles. ABDOMEN: Soft, nontender, nondistended, normoactive bowel sounds. No palpable organomegaly. MUSCULOSKELETAL: No joint swelling or deformity. EXTREMITIES: No cyanosis, clubbing, or pedal edema. NEUROLOGICAL: Gross neurological examination did not reveal any focal deficits. SKIN: No rashes. no petechiae. Results CBC & Chem 7: 09/27/22 10:40 09/27/22 10:40 Labs: Abnormal Lab Results - Last 24 Hours (Table) 09/27/22 09/27/22 Range/Units 10:40 10:40 WBC 40.1 H (3.8-10.6) k/uL Hgb 10.6 L (11.4-16.0) gm/dL Hct 33.5 L (34.0-46.0) % MCV 79.1 L (80.0-100.0) fL MCH 24.9 L (25.0-35.0) pg RDW 18.1 H (11.5-15.5) % Plt Count 146 L (150-450) k/uL Neutrophils # (Manual) 36.00 H (1.3-7.7) k/uL Metamyelocytes # (Man) 2.41 H (0) k/uL Sodium 133 L (137-145) mmol/L Potassium 5.3 H (3.5-5.1) mmol/L Carbon Dioxide 19 L (22-30) mmol/L BUN 38 H (7-17) mg/dL Creatinine 2.71 H (0.52-1.04) mg/dL Glucose 288 H (74-99) mg/dL Calcium 8.2 L (8.4-10.2) mg/dL AST 59 H (14-36) U/L ALT 36 H (4-34) U/L Total Protein 5.9 L (6.3-8.2) g/dL Albumin 3.1 L (3.5-5.0) g/dL Assessment and Plan Assessment: Acute urinary tract infection Dehydration with poor oral intake Acute kidney injury secondary to hypotension, present on admission Right-sided abdominal pain most likely secondary to above, versus other causes Chronic atrial fibrillation on xarelto at home History of asthma History of coronary artery disease status post stent Chronic heart failure History of CVA/TIA Diabetes mellitus Hypertension Hyperlipidemia History of osteoarthritis, with moderate to severe right neural foraminal stenosis at L5-S1 Hypothyroidism history of fibromyalgia History of DVT and pulmonary embolism Chronic kidney disease stage III Neuropathy History of depression Morbid obesity with BMI of 45.7 Plan: Continue intravenous hydration Nephrology consult Continue with antibiotics Zosyn, infectious disease consult follow-up Hematology consult for increased metamyelocyte (from ED) Patient was started on heparin drip and emergency room for A. fib and RVR however patient's severe thrombocytopenic so hold heparin drip and consult hematology of cardiology service Labs and medication were reviewed.. Continue same treatment. Continue with sy mptomatic treatment. Resume home medication. Monitor labs and vitals. DVT and GI prophylaxis. Further recommendations as per clinical course of the patient DVT prophylaxis: xarelto GI Prophylaxis: Pepcid PT/OT: Pending Prognosis is guarded
[2022-09-27] MEDS: PIPERACILLIN-TAZOBACTAM 3.375 GM in SODIUM CHLORIDE 0.9% 100 ML IVPB SCH (16:38)
[2022-09-27] MEDS ORDERED: IOPAMIDOL CONTRAST (ORAL USE) VIAL PO PRN (17:13)
--- NOTE | 2022-09-27 17:19 | XR ---
EXAMINATION TYPE: XR chest 2V DATE OF EXAM: 09/27/2022 5:01 PM COMPARISON: Chest radiographs from 12/05/2022 TECHNIQUE: XR chest 2V Frontal and lateral views of the chest. CLINICAL INDICATION:Female, 66 years old with history of leukocytosis; FINDINGS: Lungs/Pleura: There is no evidence of pleural effusion, focal consolidation, or pneumothorax. Pulmonary vascularity: Pulmonary vascular congestion. Heart/mediastinum: Cardiomediastinal silhouette is enlarged and stable. Musculoskeletal: No acute osseous pathology. IMPRESSION: 1. No focal consolidation to suggest airspace disease. 2. Cardiomegaly and mild pulmonary vascular congestion. Correlate with BNP for congestive heart fail ure. 3.
[2022-09-27] MEDS ORDERED: NITROGLYCERIN SL TABS 0.4 MG TAB SUBLINGUAL PRN (18:27)
[2022-09-27] MEDS ORDERED: RIVAROXABAN 15 MG TAB PO SCH (18:30)
[2022-09-27 18:59] LABS: Appearance,Urine Cloudy (Clear); Bacteria,Urine Moderate /hpf; Bilirubin,Urine Negative (Negative); Blood,Urine Large (Negative); Color,Urine Yellow; Glucose,Urine (UA) Negative (Negative); Ketones,Urine Trace (Negative); Leukocyte Esterase,Urine Large (Negative); Mucus,Urine Rare /hpf; Nitrite,Urine Negative (Negative); PH, Urine 5.5 (5.0-8.0); Protein,Urine 2+ (Negative); RBC,Urine 23 /hpf (0-5); Specific Gravity,Urine 1.019 (1.001-1.035); Squamous Epithelial Cell,Urine 1 /hpf (0-4); Urobilinogen,Urine <2.0 mg/dL (<2.0); WBC,Urine 153 /hpf (0-5)
[2022-09-27] MEDS: MONTELUKAST 10 MG TAB PO SCH (20:01)
[2022-09-27] MEDS: DULoxetine HCL 30 MG CAPSULE.DR PO SCH (20:01)
[2022-09-27] MEDS: busPIRone HCl 10 MG TAB PO SCH (20:01)
--- NOTE | 2022-09-27 20:09 | CT ---
EXAMINATION TYPE: CT abdomen pelvis wo con CT DLP: 1652.2 mGycm, Automated exposure control for dose reduction was used. DATE OF EXAM: 09/27/2022 7:33 PM COMPARISON: 12/08/2021 CLINICAL INDICATION:Female, 66 years old with history of r sided abd tenderness; Rt sided abdomen ten derness. TECHNIQUE: Axial CT of the abdomen and pelvis. Sagittal and coronal reformats were created on a [employer]ce workstation. Contrast used: mL of , (none if empty) Oral contrast used: with Oral Contrast (none if empty) FINDINGS: LOWER CHEST: Heart is mildly enlarged for size. Coronary artery calcification. Streaky atelectasis in the lung bases. ABDOMEN LIVER: Unremarkable GALLBLADDER AND BILE DUCTS: Unremarkable. PANCREAS: Unremarkable. SPLEEN: Unremarkable. ADRENAL GLANDS: Unremarkable. KIDNEYS AND URETERS: Multiple right-sided renal calculi with one at the renal pelvis measuring up to 11 mm resulting in mild to moderate hydronephrosis. Additional renal calculi on the right and on the left present. No left obstructive uropathy. There is an atrophic appearing left kidney. Right renal c yst. PELVIS BLADDER: Nondistended with Corbin catheter in place. REPRODUCTIVE: Unremarkable. ABDOMEN & PELVIS STOMACH AND BOWEL: No evidence of bowel obstruction. PERITONEUM/RETROPERITONEUM: No evidence of pneumoperitoneum or free fluid. VASCULATURE: Severe atherosclerotic calcifications are present throughout the abdominal aorta and its branches. No evidence of aortic aneurysm. MUSCULOSKELETAL: No acute osseous abnormalities. Moderate disc degeneration changes are present throu ghout the thoracolumbar spine. Findings compatible with Ischiofemoral impingement syndrome bilaterall y measuring 12 mm on the left and 4 mm on the right. LYMPH NODES: No gross evidence for lymphadenopathy. SOFT TISSUE/ABDOMINAL WALL: Diastases of the rectus abdominis. Fat-containing umbilical hernia. IMPRESSION: 1. [id number] right hydronephrosis secondary to obstructing 11 mm calculus at the ureteropelvi c junction. Additional nonobstructing bilateral renal calculi. 2. Atrophic appearing left kidney. 3. Ischiofemoral impingement syndrome bilaterally right greater than left. 4. Mild cardiomegaly.
--- NOTE | 2022-09-27 22:12 | P.CONS ---
History of Present Illness - Reason for Consult Consult date: 09/27/22 - History of Present Illness Patient is a 66-year-old patient female with a past medical history significant for atrial fibrillation and coronary artery disease as per heart failure diabetes mellitus CVA TIA history of recurrent urinary tract infection and chronic kidney disease patient apparently was recently evaluated in this ER on 09/25/2022 the patient was diagnosed with a UTI and was discharged home on Macrobid patient has not been brought back to the ER after apparently the patient did have a episode of extreme weakness that she was unable to get up patient mentioned she fell on her underwear while trying to get up after having a urination patient denies any loss of consciousness has been complaining of extreme weakness unable to get up and do anything patient denies any headache or URI symptoms no chest pain or edema shortness of breath occasional cough some nausea but no vomiting has been having some vague right-sided abdominal pain no diarrhea however patient is constipated patient presented to hospital did have a low-grade fever of 99.3 patient was tachycardic and did have a white count of 40,000 with a left shift BUN to creatinine has been elevated liver enzymes mildly elevated, patient did have a positive UA which was cloudy with large leukocyte esterase 153 WBC patient did have a head cervical spine and lumbar spine CT did not show any acute bleed or fracture patient was started on vanco mycin and Zosyn infectious disease was consulted for further management of antibiotic therapy Past Medical History Past Medical History: Atrial Fibrillation, Asthma, Coronary Artery Disease (CAD), Heart Failure, CVA/TIA, Diabetes Mellitus, Deep Vein Thrombosis (DVT), Fibromyalgia, Hyperlipidemia, Hypertension, Myocardial Infarction ([place]), Osteoarthritis (OA), Pulmonary Embolus ([place]), Skin Disorder, Thyroid Disorder Additional Past Medical History / Comment(s): frequent uti's,kidney stones,HEART MURMUR,cardiomyopathy,CHRONIC CONSTIPATION, ECZEMA,SINUS HEADACHES, HX ANEMIA, gout. stage III kidney disease stage 3,lower back pain. 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.FEEt, weakness LT SIDE, ,stg three kidney disease,eye disorder fuchs corneal dystr ophy. Last Myocardial Infarction Date:: UNKNOWN History of Any Multi-Drug Resistant Organisms: ESBL, MRSA Year Discovered:: 01/02/22 MRSA;02/28/18-ESBL MDRO Source:: Urine-MRSA; Urine ESBL Past Surgical History: Appendectomy, Cardiac Ablation, Cholecystectomy, Heart Catheterization, Heart Catheterization With Stent, Hysterectomy Additional Past Surgical History / Comment(s): PARTIAL HYSTERECTOMY 03/18/14 @ [facility]. CATARACT BLACK. WITH IMPLANTS. HEART CATH X 3 TOTAL 3 STENTS, lithotripsy,kidney stents-since removed. Past Anesthesia/Blood Transfusion Reactions: Motion Sickness Additional Past Anesthesia/Blood Transfusion Reaction / Comm: no hx blood transfusion Date of Last Stent Placement:: UNKNOWN Past Psychological History: Depression Smoking Status: Former smoker Past Alcohol Use History: None Reported Past Drug Use History: None Reported - Past Family History Father Additional Family Medical History / Comment(s): "HARDENEING OF THE ARTERIES AT AGE 41. SMOKED AND DRANK ETOH Mother Family Medical History: Cancer Additional Family Medical History / Comment(s): "cyst that ruptured between bowel and bladder" Medications and Allergies Home Medications Medication Instructions Recorded Confirmed Type Montelukast [Singulair] 10 mg PO HS 08/28/17 09/27/22 History Metoprolol Succinate (ER) [Toprol 100 mg PO DAILY 05/03/20 09/27/22 History XL] Rivaroxaban [Xarelto] 20 mg PO W/SUPPER 05/03/20 09/27/22 History Acetaminophen Tab [Tylenol] 1,000 mg PO Q6H PRN 05/22/21 09/27/22 History Levothyroxine Sodium [Synthroid] 125 mcg PO AC-BRKFST 05/22/21 09/27/22 History Loratadine [Claritin] 10 mg PO DAILY PRN 05/22/21 09/27/22 History Rosuvastatin [Crestor] 20 mg PO HS 05/22/21 09/27/22 History methocarbamoL [Robaxin] 500 mg PO TID PRN 05/22/21 09/27/22 History Glimepiride [Amaryl] 2 mg PO AC-BRKFST 12/04/21 09/27/22 History Isosorbide Mononitrate ER [Imdur] 30 mg PO DAILY 12/04/21 09/27/22 History Nitroglycerin Sl Tabs [Nitrostat] 0.4 mg SL Q5M PRN 12/04/21 09/27/22 History Nitrofurantoin Monohyd/M-Cryst 100 mg PO Q12HR #20 cap 09/25/22 09/27/22 Rx [Macrobid] DULoxetine HCL [Cymbalta] 30 mg PO BID 09/27/22 09/27/22 History Meloxicam [Mobic] 15 mg PO DAILY 09/27/22 09/27/22 History Menthol-Zinc Oxide Oint 1 applic TOPICAL BID 09/27/22 09/27/22 History [Calmoseptine Ointment] Nystatin 100,000 Unit/gm Powd 1 applic TOPICAL TID 09/27/22 09/27/22 History [Mycostatin Powder] Omeprazole [PriLOSEC] 20 mg PO AC-BRKFST 09/27/22 09/27/22 History allopurinoL 100 mg PO DAILY 09/27/22 09/27/22 History busPIRone HCl [Buspar] 10 mg PO BID 09/27/22 09/27/22 History lisinopriL [Zestril] 5 mg PO DAILY 09/27/22 09/27/22 History Allergies Allergy/AdvReac Type Severity Reaction Status Date / Time grass pollen Allergy Sinus Verified 09/27/22 10:10 latex Allergy Rash/Hives Verified 09/27/22 10:10 mold Allergy Sinus Verified 09/27/22 10:10 pollen extracts Allergy Sinus Verified 09/27/22 10:10 tree and shrub pollen Allergy Sinus Verified 09/27/22 10:10 Milk Containing Products AdvReac THRUSH Verified 09/27/22 10:10 [Dairy] Tetracyclines AdvReac YEAST Verified 09/27/22 10:10 INFECTION- PREFERS NOT TO TAKE ENVIRONMENTAL ALLERGIES Allergy SINUS Uncoded 09/27/22 09:31 SYMPTOMS-GRASS TREES,DUST,POLLENS,MOLD Physical Exam Vitals: Vital Signs Temp Pulse Resp BP Pulse Ox 09/27/22 14:02 104 H 20 127/59 94 L 09/27/22 12:53 106 H 18 125/55 94 L 09/27/22 11:20 108 H 22 99/68 94 L 09/27/22 10:57 105 H 22 82/52 95 09/27/22 09:56 22 09/27/22 09:21 99.3 F 106 H 18 95/37 95 Intake and Output 09/27/22 09/27/22 09/27/22 06:59 14:59 22:59 Other: Weight 113.353 kg Results CBC & Chem 7: 09/28/22 07:17 09/29/22 06:48 Labs: Abnormal Lab Results - Last 24 Hours (Table) 09/27/22 09/27/22 09/27/22 Range/Units 10:40 10:40 14:09 WBC 40.1 H (3.8-10.6) k/uL Hgb 10.6 L (11.4-16.0) gm/dL Hct 33.5 L (34.0-46.0) % MCV 79.1 L (80.0-100.0) fL MCH 24.9 L (25.0-35.0) pg RDW 18.1 H (11.5-15.5) % Plt Count 146 L (150-450) k/uL Neutrophils # (Manual) 36.00 H (1.3-7.7) k/uL Metamyelocytes # (Man) 2.41 H (0) k/uL Sodium 133 L (137-145) mmol/L Potassium 5.3 H (3.5-5.1) mmol/L Carbon Dioxide 19 L (22-30) mmol/L BUN 38 H (7-17) mg/dL Creatinine 2.71 H (0.52-1.04) mg/dL Glucose 288 H (74-99) mg/dL Calcium 8.2 L (8.4-10.2) mg/dL AST 59 H (14-36) U/L ALT 36 H (4-34) U/L Troponin I 7.340 H* (0.000-0.034) ng/mL Total Protein 5.9 L (6.3-8.2) g/dL Albumin 3.1 L (3.5-5.0) g/dL Assessment and Plan Plan: 1patient presented hospital with sepsis in this patient who did have low-grade fever tachycardia elevated white count meeting criteria for SIRS. Likely he will agree however the patient also noticed to be slightly tender on the right lower abdominal area underlying abdominal source not entirely excluded. 2patient with renal insufficiency and high risk of nephrotoxicity from vancomycin and Zosyn combination. 3we will obtain a CT of abdominal pelvis with oral contrast as the patient was noted to be tender on the right mid abdominal area 4-continue with the Zosyn however discontinue vancomycin 5-gentle IV fluid We will follow on clinical condition and cultures to further adjust medication if needed Thank you for this consultation we will follow the patient along with you Time with Patient: Greater than 30
[2022-09-28] MEDS: ACETAMINOPHEN TAB 500 MG TAB PO PRN ×2 (01:03→21:58)
[2022-09-28] MEDS: SODIUM CHLORIDE 0.9% 1,000 ML IV SCH ×2 (02:23→11:43)
[2022-09-28] MEDS: PIPERACILLIN-TAZOBACTAM 3.375 GM in SODIUM CHLORIDE 0.9% 100 ML IVPB SCH ×2 (03:58→16:44)
[2022-09-28 06:07] LABS: Glucose,Whole Blood 112 mg/dL (70-110)
[2022-09-28] MEDS: LEVOTHYROXINE 125 MCG TAB PO SCH (06:30)
--- NOTE | 2022-09-28 07:39 | P.GSCN ---
History of Present Illness Consult date: 09/28/22 History of present illness: 66 yo female in the hospital with weakness and right sided abdominal pain for a couple of days. HEr urine is infected. HEr wbc is 40k. Her cr is 2.7. SHe has a history of stones. SHe has many medical illnesses. SHe has a history if stones. She has not passed any recently nor she had surgery for kidney stones. SHe had a ct scan 09/27/2022 identifying proximal right ureteral stone[11mm] with obstruction as well as another stone proximal to that and some right lower pole calyceal stones. She also has some tiny left renal stones.. She is tachycardic. Review of Systems All systems: negative - Constitutional Denies fever, Denies weight loss - EENT Eyes: denies blurred vision Ears, nose, mouth and throat: Denies dysphagia - Cardiovascular Denies chest pain, Denies shortness of breath - Respiratory Denies cough, Denies 7 - Gastrointestinal Reports as per HPI - Genitourinary Genitourinary: Denies dysuria, Denies hematuria - Integumentary Denies rash, Denies unusual bruising - Neurological Denies headaches, Denies syncope - Hematologic/Lymphatic Denies easy bleeding, Denies easy bruising Past Medical History Past Medical History: Atrial Fibrillation, Asthma, Coronary Artery Disease (CAD), Heart Failure, CVA/TIA, Diabetes Mellitus, Deep Vein Thrombosis (DVT), Fibromyalgia, Hyperlipidemia, Hypertension, Myocardial Infarction ([place]), Osteoarthritis (OA), Pulmonary Embolus (PE), Skin Disorder, Thyroid Disorder Additional Past Medical History / Comment(s): frequent uti's,kidney stones,HEART MURMUR,cardiomyopathy,CHRONIC CONSTIPATION, ECZEMA,SINUS HEADACHES, HX ANEMIA, gout. stage III kidney disease stage 3,lower back pain. 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.FEEt, weakness LT SIDE, ,stg three kidney disease,eye disorder fuchs corneal dystrophy. 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 CATARACT BLACK. WITH IMPLANTS. HEART CATH X 3 TOTAL 3 STENTS, lithotripsy,kidney stents-since removed. Past Anesthesia/Blood Transfusion Reactions: Motion Sickness Additional Past Anesthesia/Blood Transfusion Reaction / Comm: no hx blood transfusion Date of Last Stent Placement:: UNKNOWN Past Psychological History: Depression Smoking Status: Former smoker Past Alcohol Use History: None Reported Past Drug Use History: None Reported - Past Family History Father Additional Family Medical History / Comment(s): "HARDENEING OF THE ARTERIES AT AGE 41. SMOKED AND DRANK ETOH Mother Family Medical History: Cancer Additional Family Medical History / Comment(s): "cyst that ruptured between bowel and bladder" Medications and Allergies Home Medications Medication Instructions Recorded Confirmed Type Montelukast [Singulair] 10 mg PO HS 08/28/17 09/27/22 History Metoprolol Succinate (ER) [Toprol 100 mg PO DAILY 05/03/20 09/27/22 History XL] Rivaroxaban [Xarelto] 20 mg PO W/SUPPER 05/03/20 09/27/22 History Acetaminophen Tab [Tylenol] 1,000 mg PO Q6H PRN 05/22/21 09/27/22 History Levothyroxine Sodium [Synthroid] 125 mcg PO AC-KT 05/22/21 09/27/22 History Loratadine [Claritin] 10 mg PO DAILY PRN 05/22/21 09/27/22 History Rosuvastatin [Crestor] 20 mg PO HS 05/22/21 09/27/22 History methocarbamoL [Robaxin] 500 mg PO TID PRN 05/22/21 09/27/22 History Glimepiride [Amaryl] 2 mg PO AC-BRKFST 12/04/21 09/27/22 History Isosorbide Mononitrate ER [Imdur] 30 mg PO DAILY 12/04/21 09/27/22 History Nitroglycerin Sl Tabs [Nitrostat] 0.4 mg SL Q5M PRN 12/04/21 09/27/22 History Nitrofurantoin Monohyd/M-Cryst 100 mg PO Q12HR #20 cap 09/25/22 09/27/22 Rx [Macrobid] DULoxetine HCL [Cymbalta] 30 mg PO BID 09/27/22 09/27/22 History Meloxicam [Mobic] 15 mg PO DAILY 09/27/22 09/27/22 History Menthol-Zinc Oxide Oint 1 applic TOPICAL BID 09/27/22 09/27/22 History [Calmoseptine Ointment] Nystatin 100,000 Unit/gm Powd 1 applic TOPICAL TID 09/27/22 09/27/22 History [Mycostatin Powder] Omeprazole [PriLOSEC] 20 mg PO AC-BRKFST 09/27/22 09/27/22 History allopurinoL 100 mg PO DAILY 09/27/22 09/27/22 History busPIRone HCl [Buspar] 10 mg PO BID 09/27/22 09/27/22 History lisinopriL [Zestril] 5 mg PO DAILY 09/27/22 09/27/22 History Allergies Allergy/AdvReac Type Severity Reaction Status Date / Time grass pollen Allergy Sinus Verified 09/27/22 10:10 latex Allergy Rash/Hives Verified 09/27/22 10:10 mold Allergy Sinus Verified 09/27/22 10:10 pollen extracts Allergy Sinus Verified 09/27/22 10:10 tree and shrub pollen Allergy Sinus Verified 09/27/22 10:10 Milk Containing Products AdvReac THRUSH Verified 09/27/22 10:10 [Dairy] Tetracyclines AdvReac YEAST Verified 09/27/22 10:10 INFECTION- PREFERS NOT TO TAKE ENVIRONMENTAL ALLERGIES Allergy SINUS Uncoded 09/27/22 09:31 SYMPTOMS-GRASS TREES,DUST,POLLENS,MOLD Surgical - Exam Vital Signs Temp Pulse Resp BP Pulse Ox 99.3 F 106 H 18 95/37 95 09/27/22 09:21 09/27/22 09:21 09/27/22 09:21 09/27/22 09:21 09/27/22 09:21 - General moderate distress, obese - Eyes normal ocular movement, no icteric - ENT no hearing loss, no congestion - Neck no masses, trachea midline - Respiratory normal respiratory effort, clear to auscultation - Cardiovascular Heart Rate: 102 - Abdomen Abdomen: soft, tender, no guarding, no rigid, no rebound - Integumentary no rash, no abnormal pigmentation - Neurologic no disoriented, no combative - Musculoskeletal normal posture - Psychiatric oriented to time, oriented to person, oriented to place, speech is normal, memory intact Results - Labs 09/27/22 10:40 09/27/22 10:40 Abnormal Lab Results - Last 24 Hours (Table) 09/27/22 09/27/22 09/27/22 Range/Units 10:00 10:40 10:40 WBC 40.1 H (3.8-10.6) k/uL Hgb 10.6 L (11.4-16.0) gm/dL Hct 33.5 L (34.0-46.0) % MCV 79.1 L (80.0-100.0) fL MCH 24.9 L (25.0-35.0) pg RDW 18.1 H (11.5-15.5) % Plt Count 146 L (150-450) k/uL Neutrophils # (Manual) 36.00 H (1.3-7.7) k/uL Metamyelocytes # (Man) 2.41 H (0) k/uL Sodium 133 L (137-145) mmol/L Potassium 5.3 H (3.5-5.1) mmol/L Carbon Dioxide 19 L (22-30) mmol/L BUN 38 H (7-17) mg/dL Creatinine 2.71 H (0.52-1.04) mg/dL Glucose 288 H (74-99) mg/dL POC Glucose (mg/dL) (70-110) mg/dL Calcium 8.2 L (8.4-10.2) mg/dL AST 59 H (14-36) U/L ALT 36 H (4-34) U/L Troponin I (0.000-0.034) ng/mL Total Protein 5.9 L (6.3-8.2) g/dL Albumin 3.1 L (3.5-5.0) g/dL Procalcitonin >100.00 H (0.02-0.09) ng/mL Urine Appearance (Clear) Urine Protein (Negative) Urine Ketones (Negative) Urine Blood (Negative) Ur Leukocyte Esterase (Negative) Urine RBC (0-5) /hpf Urine WBC (0-5) /hpf Urine Bacteria (None) /hpf Urine Mucus (None) /hpf 09/27/22 09/27/22 09/27/22 Range/Units 14:09 18:30 18:37 WBC (3.8-10.6) k/uL Hgb (11.4-16.0) gm/dL Hct (34.0-46.0) % MCV (80.0-100.0) fL MCH (25.0-35.0) pg RDW (11.5-15.5) % Plt Count (150-450) k/uL Neutrophils # (Manual) (1.3-7.7) k/uL Metamyelocytes # (Man) (0) k/uL Sodium (137-145) mmol/L Potassium (3.5-5.1) mmol/L Carbon Dioxide (22-30) mmol/L BUN (7-17) mg/dL Creatinine (0.52-1.04) mg/dL Glucose (74-99) mg/dL POC Glucose (mg/dL) (70-110) mg/dL Calcium (8.4-10.2) mg/dL AST (14-36) U/L ALT (4-34) U/L Troponin I 7.340 H* 7.890 H* (0.000-0.034) ng/mL Total Protein (6.3-8.2) g/dL Albumin (3.5-5.0) g/dL Procalcitonin (0.02-0.09) ng/mL Urine Appearance Cloudy H (Clear) Urine Protein 2+ H (Negative) Urine Ketones Trace H (Negative) Urine Blood Large H (Negative) Ur Leukocyte Esterase Large H (Negative) Urine RBC 23 H (0-5) /hpf Urine WBC 153 H (0-5) /hpf Urine Bacteria Moderate H (None) /hpf Urine Mucus Rare H (None) /hpf 09/27/22 Range/Units 20:45 WBC (3.8-10.6) k/uL Hgb (11.4-16.0) gm/dL Hct (34.0-46.0) % MCV (80.0-100.0) fL MCH (25.0-35.0) pg RDW (11.5-15.5) % Plt Count (150-450) k/uL Neutrophils # (Manual) (1.3-7.7) k/uL Metamyelocytes # (Man) (0) k/uL Sodium (137-145) mmol/L Potassium (3.5-5.1) mmol/L Carbon Dioxide (22-30) mmol/L BUN (7-17) mg/dL Creatinine (0.52-1.04) mg/dL Glucose (74-99) mg/dL POC Glucose (mg/dL) 112 H (70-110) mg/dL Calcium (8.4-10.2) mg/dL AST (14-36) U/L ALT (4-34) U/L Troponin I (0.000-0.034) ng/mL Total Protein (6.3-8.2) g/dL Albumin (3.5-5.0) g/dL Procalcitonin (0.02-0.09) ng/mL Urine Appearance (Clear) Urine Protein (Negative) Urine Ketones (Negative) Urine Blood (Negative) Ur Leukocyte Esterase (Negative) Urine RBC (0-5) /hpf Urine WBC (0-5) /hpf Urine Bacteria (None) /hpf Urine Mucus (None) /hpf Diabetes panel 09/27/22 Range/Units 10:40 Sodium 133 L (137-145) mmol/L Potassium 5.3 H (3.5-5.1) mmol/L Chloride 100 (98-107) mmol/L Carbon Dioxide 19 L (22-30) mmol/L BUN 38 H (7-17) mg/dL Creatinine 2.71 H (0.52-1.04) mg/dL Glucose 288 H (74-99) mg/dL Calcium 8.2 L (8.4-10.2) mg/dL AST 59 H (14-36) U/L ALT 36 H (4-34) U/L Alkaline Phosphatase 97 (38-126) U/L Total Protein 5.9 L (6.3-8.2) g/dL Albumin 3.1 L (3.5-5.0) g/dL Calcium panel 09/27/22 Range/Units 10:40 Calcium 8.2 L (8.4-10.2) mg/dL Albumin 3.1 L (3.5-5.0) g/dL Pituitary panel 09/27/22 Range/Units 10:40 Sodium 133 L (137-145) mmol/L Potassium 5.3 H (3.5-5.1) mmol/L Chloride 100 (98-107) mmol/L Carbon Dioxide 19 L (22-30) mmol/L BUN 38 H (7-17) mg/dL Creatinine 2.71 H (0.52-1.04) mg/dL Glucose 288 H (74-99) mg/dL Calcium 8.2 L (8.4-10.2) mg/dL Adrenal panel 09/27/22 Range/Units 10:40 Sodium 133 L (137-145) mmol/L Potassium 5.3 H (3.5-5.1) mmol/L Chloride 100 (98-107) mmol/L Carbon Dioxide 19 L (22-30) mmol/L BUN 38 H (7-17) mg/dL Creatinine 2.71 H (0.52-1.04) mg/dL Glucose 288 H (74-99) mg/dL Calcium 8.2 L (8.4-10.2) mg/dL Total Bilirubin 1.0 (0.2-1.3) mg/dL AST 59 H (14-36) U/L ALT 36 H (4-34) U/L Alkaline Phosphatase 97 (38-126) U/L Total Protein 5.9 L (6.3-8.2) g/dL Albumin 3.1 L (3.5-5.0) g/dL - Imaging CT scan - abdomen: report reviewed, image reviewed CT scan - pelvis: report reviewed, image reviewed Assessment and Plan Assessment: Impression: right ureteral calculous with obstruction, pyonephrosis, uti with sepsis. Multiple medical illnesses, morbid obesity Plan: cysto with right double j catheter
[2022-09-28] MEDS: allopurinoL 100 MG TAB PO SCH (08:05)
[2022-09-28] MEDS: DULoxetine HCL 30 MG CAPSULE.DR PO SCH ×2 (08:05→20:22)
[2022-09-28] MEDS: busPIRone HCl 10 MG TAB PO SCH ×2 (08:05→20:22)
[2022-09-28] MEDS ORDERED: PROPOFOL 10 MG/ML 20 ML VIAL IV ONE (08:36)
[2022-09-28] MEDS ORDERED: KETAMINE 10 MG/ML 20 ML VIAL ONE (08:36)
[2022-09-28] MEDS ORDERED: MIDAZOLAM 2 MG/2 ML VIAL ONE (08:36)
[2022-09-28] MEDS ORDERED: SODIUM CHLORIDE 0.9% 1,000 ML IV ONE ×2 (08:36→17:46)
[2022-09-28 08:47] LABS: Anisocytosis Slight; HCT 31.1 % (34.0-46.0); HGB 9.4 gm/dL (11.4-16.0); Hypochromasia Marked; MCH 23.7 pg (25.0-35.0); MCHC 30.2 g/dL (31.0-37.0); MCV 78.5 fL (80.0-100.0); Mean Platelet Volume 8.3; Microcytosis Slight; Platelet Count 128 k/uL (150-450); RBC 3.97 m/uL (3.80-5.40); WBC 22.1 k/uL (3.8-10.6)
[2022-09-28 08:58] LABS: African American GFR (CKD) 22 (>60 ml/min/1.73 sqM); Anion Gap 8 mmol/L; Blood Urea Nitrogen 46 mg/dL (7-17); Calcium 7.8 mg/dL (8.4-10.2); Carbon Dioxide 22 mmol/L (22-30); Chloride 102 mmol/L (98-107); Glucose 78 mg/dL (74-99); Non-African American GFR(CKD) 19 (>60 ml/min/1.73 sqM); Potassium 4.4 mmol/L (3.5-5.1); Sodium 132 mmol/L (137-145)
[2022-09-28] MEDS ORDERED: IOPAMIDOL-370 100ML BTL MISCELLANE ONE (08:58)
--- NOTE | 2022-09-28 09:13 | P.OP ---
Date of Procedure: 09/28/22 Preoperative Diagnosis: Urinary tract infection with sepsis, right obstructing ureteral stone with secondary pyelonephrosis, multiple medical comorbidities Postoperative Diagnosis: Same Procedure(s) Performed: Cystoscopy, right retrograde Pyelogram, placement of 6 x 24 stent Anesthesia: MAC Surgeon: Edwar You Estimated Blood Loss (ml): 0 Pathology: none sent Condition: stable Disposition: PACU Indications for Procedure: 66-year-old female admitted with a urinary tract infection with sepsis. Elevated white count 40,000. She has multiple comorbidities. She had a computed tomography scan identified an right 11 mm UPJ stone with obstruction. Her urine is infected. She needs a right ureteral stent to relieve the obstruction to assist in treatment of the urinary tract infection with sepsis Description of Procedure: Patient brought to the operating suite. Given a sedative anesthetic. The bladder is inspected with a Foroblique lens and 21-Yakut sheath identifies chronic cystitis. An 035 wires passed up the ureter. I cannot obviously see the stones due to when her morbid obesity into probably they are infected stones. The wire has a strange passage thus I passed an open-ended catheter over the wire and do a right retrograde pyelogram and find the kidney is low- lying explaining the appearance on retrograde. I can see the filling defects consistent with stones. The wires and passed back through the open-ended catheter into the right renal pelvis.. I removed the open-ended catheter and over the wires passed a 6 x 24 double-J cath that coils in the renal pelvis and the bladder confirmed radiographically and endoscopically. The bladder is drained. A Corbin catheters placed. The patient is awake and returned recovery room good condition. The urine coming from the right ureter was quite purulent.
[2022-09-28 09:26] LABS: Band Neutrophils % 4 %; Lymphocytes # (M) 0.66 k/uL (1.0-4.8); Monocytes # (M) 0.66 k/uL (0-1.0); Neutrophils % (M) 90 %; Nucleated Red Blood Cells 0 /100 WBC (0-0); Total Cells Counted 100
--- NOTE | 2022-09-28 09:31 | FL ---
EXAMINATION TYPE: FL urography retrograde DATE OF EXAM: 09/28/2022 COMPARISON: NONE HISTORY: RT sided cysto TECHNIQUE: Fluoroscopy. FINDINGS: RT sided cysto with Dr. You. 1 min 13 sec fluoro time. 15.147 DAP. 1 image saved . IMPRESSION: As Above.
--- NOTE | 2022-09-28 10:49 | P.EN ---
Patient was off the floor with urology during rounds Patient admitted for acute kidney injury, in the presence of obstructive stone with infection, and had elevated troponins Based on chart review, start Toprol-XL 25 daily Start rosuvastatin 40 mg daily Start aspirin 81 mg daily Hold Xarelto for one day, will evaluate patient for possible cath Will round on the patient later.
[2022-09-28 11:36] LABS: Glucose,Whole Blood 141 mg/dL (70-110)
[2022-09-28] MEDS: ASPIRIN 81 MG PO SCH (11:39)
[2022-09-28] MEDS: ATORVASTATIN 40 MG TAB PO SCH (11:39)
[2022-09-28] MEDS: METOPROLOL SUCCINATE (ER) 25 MG TAB.ER.24H PO SCH (11:39)
[2022-09-28] MEDS ORDERED: DEXTROSE 50% SYRINGE 50 ML IVP PRN ×2 (11:46)
[2022-09-28] MEDS ORDERED: VANCOMYCIN 1,750 MG in SODIUM CHLORIDE 0.9% 500 ML 500 ML IVPB ONE (12:00)
[2022-09-28] MEDS: INSULIN ASPART (NovoLOG) 100 UNIT/ML VIAL SQ SCH ×3 (12:15→20:26)
--- NOTE | 2022-09-28 15:04 | P.NPCON ---
History of Present Illness - Reason for Consult Consult date: 09/28/22 acute renal failure - Chief Complaint Right flank pain. - History of Present Illness Coming to the hospital with the above complaints. Baseline creatinine 0.9 MG per DL 09/25/2022. On admission serum creatinine was 2.7 MG per DL, improved to 2.5 MG per DL today. CT showed right hydronephrosis with obstructing calculi. Urology was consulted, she went to the OR and a stent was placed. Urine a nalysis showed pyuria. Documented hypotensive episodes. She was given IV fluids, blood pressures better. Home medications include lisinopril and nitrofurantoin. Review of Systems Constitutional: Reports as per HPI Past Medical History Past Medical History: Atrial Fibrillation, Asthma, Coronary Artery Disease (CAD), Heart Failure, CVA/TIA, Diabetes Mellitus, Deep Vein Thrombosis (DVT), Fibromyalgia, Hyperlipidemia, Hypertension, Myocardial Infarction ([place]), Osteoarthritis (OA), Pulmonary Embolus ([place]), Skin Disorder, Thyroid Disorder Additional Past Medical History / Comment(s): frequent uti's,kidney stones,HEART MURMUR,cardiomyopathy,CHRONIC CONSTIPATION, ECZEMA,SINUS HEADACHES, HX ANEMIA, gout. stage III kidney disease stage 3,lower back pain. 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.FEEt, weakness LT SIDE, ,stg three kidney disease,eye disorder fuchs corneal dystrophy. 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 CATARACT BLACK. WITH IMPLANTS. HEART CATH X 3 TOTAL 3 STENTS, lithotripsy,kidney stents-since removed. Past Anesthesia/Blood Transfusion Reactions: Motion Sickness Additional Past Anesthesia/Blood Transfusion Reaction / Comment(s): no hx blood transfusion Date of Last Stent Placement:: UNKNOWN Past Psychological History: Depression Smoking Status: Former smoker Past Alcohol Use History: None Reported Past Drug Use History: None Reported - Past Family History Father Additional Family Medical History / Comment(s): "HARDENEING OF THE ARTERIES AT AGE 41. SMOKED AND DRANK ETOH Mother Family Medical History: Cancer Additional Family Medical History / Comment(s): "cyst that ruptured between bowel and bladder" Medications and Allergies Home Medications Medication Instructions Recorded Confirmed Type Montelukast [Singulair] 10 mg PO HS 08/28/17 09/27/22 History Metoprolol Succinate (ER) [Toprol 100 mg PO DAILY 05/03/20 09/27/22 History XL] Rivaroxaban [Xarelto] 20 mg PO W/SUPPER 05/03/20 09/27/22 History Acetaminophen Tab [Tylenol] 1,000 mg PO Q6H PRN 05/22/21 09/27/22 History Levothyroxine Sodium [Synthroid] 125 mcg PO AC-KT 05/22/21 09/27/22 History Loratadine [Claritin] 10 mg PO DAILY PRN 05/22/21 09/27/22 History Rosuvastatin [Crestor] 20 mg PO HS 05/22/21 09/27/22 History methocarbamoL [Robaxin] 500 mg PO TID PRN 05/22/21 09/27/22 History [facility] 12/[facility]/21 09/27/22 History Isosorbide Mononitrate ER [Imdur] 30 mg PO DAILY 12/04/21 09/27/22 History Nitroglycerin Sl Tabs [Nitrostat] 0.4 mg SL Q5M PRN 12/04/21 09/27/22 History Nitrofurantoin Monohyd/M-Cryst 100 mg PO Q12HR #20 cap 09/25/22 09/27/22 Rx [Macrobid] DULoxetine HCL [Cymbalta] 30 mg PO BID 09/27/22 09/27/22 History Meloxicam [Mobic] 15 mg PO DAILY 09/27/22 09/27/22 History Menthol-Zinc Oxide Oint 1 applic TOPICAL BID 09/27/22 09/27/22 History [Calmoseptine Ointment] Nystatin 100,000 Unit/gm Powd 1 applic TOPICAL TID 09/27/22 09/27/22 History [Mycostatin Powder] Omeprazole [PriLOSEC] 20 mg PO AC-BRKT 09/27/22 09/27/22 History allopurinoL 100 mg PO DAILY 09/27/22 09/27/22 History busPIRone HCl [Buspar] 10 mg PO BID 09/27/22 09/27/22 History lisinopriL [Zestril] 5 mg PO DAILY 09/27/22 09/27/22 History Allergies Allergy/AdvReac Type Severity Reaction Status Date / Time grass pollen Allergy Sinus Verified 09/27/22 10:10 latex Allergy Rash/Hives Verified 09/27/22 10:10 mold Allergy Sinus Verified 09/27/22 10:10 pollen extracts Allergy Sinus Verified 09/27/22 10:10 tree and shrub pollen Allergy Sinus Verified 09/27/22 10:10 Milk Containing Products AdvReac THRUSH Verified 09/27/22 10:10 [Dairy] Tetracyclines AdvReac YEAST Verified 09/27/22 10:10 INFECTION- PREFERS NOT TO TAKE ENVIRONMENTAL ALLERGIES Allergy SINUS Uncoded 09/27/22 09:31 SYMPTOMS-GRASS TREES,DUST,POLLENS,MOLD Physical Exam Vitals: Vital Signs Temp Pulse Pulse Resp BP BP Pulse Ox 09/28/22 14:24 103 H 18 09/28/22 11:35 98.0 F 103 H 18 105/69 90 L 09/28/22 09:45 91 16 115/51 95 09/28/22 09:31 102 H 16 09/28/22 09:30 92 16 113/52 100 09/28/22 09:15 97 16 96/50 100 09/28/22 09:10 98.5 F 112 H 16 95/52 100 09/28/22 08:10 97/63 09/28/22 08:00 102 H 18 79/60 91 L 09/28/22 04:00 70 16 139/71 96 09/27/22 23:48 98.1 F 72 17 117/69 95 09/27/22 20:13 102 H 22 121/75 97 09/27/22 18:00 100 18 115/70 94 L Intake and Output 09/27/22 09/28/22 09/28/22 22:59 06:59 14:59 Intake Total 474 510 Output Total 250 Balance 474 -250 510 Intake: IV 400 Oral 474 110 Output: Urine 250 Other: Voiding Method Indwelling Catheter Indwelling Catheter Weight 113.353 kg No acute distress S1-S2 heard Lungs clear Abdomen soft Corbin dark urine No edema Results - Lab Results Most recent lab results Calcium 7.8 mg/dL (8.4-10.2) L 09/28/22 07:17 Magnesium 1.6 mg/dL (1.6-2.3) 09/27/22 10:40 09/28/22 07:17 09/28/22 07:17 Assessment and Plan Assessment: #1 acute kidney injury multifactorial -Hemodynamic ATN with low blood pressures -Obstructive uropathy with right hydronephrosis from obstructing stone -Baseline creatinine 0.9 MG per DL -Urine analysis hematuria with pyuria #2 complicated UTI #3 right hydronephrosis obstructing stone #4 hypotensive episodes #5 hypovolemic hyponatremia #6 hyperkalemia better. Plan: #1 renal function improving. Continue with IV fluids #2 appreciate urology input #3 agree with holding lisinopril and nitrofurantoin for now. #4 daily labs.
[2022-09-28 16:18] LABS: Glucose,Whole Blood 181 mg/dL (70-110)
--- NOTE | 2022-09-28 17:57 | P.PN ---
Subjective This is a pleasant 66 years old female with multiple medical problems as below Atrial Fibrillation, Asthma, Coronary Artery Disease, Heart Failure, CVA/TIA, Diabetes Mellitus, Deep Vein Thrombosis , Fibromyalgia, Hyperlipidemia, Hypertension, Osteoarthritis (OA), Pulmonary Embolus (PE), hypothyroidism, constipation, chronic kidney disease stage III, neuropathy, depression Patient presents because of she fell at home without losing consciousness and feeling generally weak for the last 2 days. Patient could not get up after she fell After a fall she's been having more pain in her neck. Also she's been complaining of from some back pain for the last few days She is also complaining of from right-sided abdominal pain and bright: Pain most likely related to recent UTI,Pain is not specific on the right side mild to moderate in severity with no relieving or precipitating factors Patient is mildly tachycardic around 106 Blood pressure is borderline on admission 82/52 Osteopenia and extensive artifacts from patient very large body habitus limited evaluation. Hypertrophic facet arthropathy, moderate to severe right neural foraminal stenosis at L5-S1 and nephrolithiasis and hepatic steatosis CT of the brain: Age-related atrophy with no acute intracranial process. Cervical spine acute is negative for acute pathology Abdominal x-ray on 09/25: Unremarkable abdomen Abdominal ultrasound: Mild prominence of the pancreatic duct within the head of the pancreas, consider follow-up with ERCP. Nonobstructing right renal stones. Right renal cyst superior pole Urine analysis is suspicious for infection on Room emergency room ID team, hematology/oncology and nephrology was consulted Creatinine went up to 0.9 and 2.7. Was elevated. Liver enzymes mildly elevated with AST 59 and ALT 36 with normal bilirubin. Lipase is normal. Urine culture: Gram-negative 09/28/[address] of the abdomen and pelvis done yesterday showing obstructing calculus with right hydronephrosis, urology consulted, patient status post cystoscopy and retrograde urethrogram and placement of stent. Urine culture is growing Citrobacter frundii with sensitivity reviewed. Patient remains on Zosyn and IV vancomycin. Broadcalcitonin is more than 100 Cartilage team on the case for elevated troponin as he had chest pain last night, troponin around 7. [employer] and it aspirated and metoprolol and started. Objective - Vital Signs Vital signs: Vital Signs Temp 98.0 F 09/28/22 11:35 Pulse 103 H 09/28/22 14:24 Resp 18 09/28/22 14:24 BP 105/69 09/28/22 11:35 Pulse Ox 90 L 09/28/22 11:35 FiO2 Intake & Output 09/27/22 09/28/22 09/28/22 18:59 06:59 18:59 Intake Total 474 510 Output Total 250 Balance 224 510 Weight 113.353 kg 113.353 kg Intake: IV 400 Oral 474 110 Output: Urine 250 Other: Voiding Method Indwelling Catheter Indwelling Catheter - Exam GENERAL: The patient is alert and oriented x3, not in any acute distress. Well developed, well nourished. HEENT: Pupils are round and equally reacting to light. EOMI. No scleral icterus. No conjunctival pallor. Normocephalic, atraumatic. No pharyngeal erythema. No thyromegaly. CARDIOVASCULAR: S1 and S2 present. No murmurs, rubs, or gallops. PULMONARY: Chest is clear to auscultation, no wheezing . no crackles. -ABDOMEN: Soft, right abdominal tenderness improving, nondistended, normoactive bowel sounds. No palpable organomegaly. MUSCULOSKELETAL: No joint swelling or deformity. EXTREMITIES: No cyanosis, clubbing, or pedal edema. NEUROLOGICAL: Gross neurological examination did not reveal any focal deficits. SKIN: No rashes. no petechiae. - Labs CBC & Chem 7: 09/28/22 07:17 09/28/22 07:17 Labs: Abnormal Lab Results - Last 24 Hours (Table) 09/27/22 09/27/22 09/27/22 Range/Units 10:00 14:09 18:30 WBC (3.8-10.6) k/uL Hgb (11.4-16.0) gm/dL Hct (34.0-46.0) % MCV (80.0-100.0) fL MCH (25.0-35.0) pg MCHC (31.0-37.0) g/dL RDW (11.5-15.5) % Plt Count (150-450) k/uL Neutrophils # (Manual) (1.3-7.7) k/uL Lymphocytes # (Manual) (1.0-4.8) k/uL Sodium (137-145) mmol/L BUN (7-17) mg/dL Creatinine (0.52-1.04) mg/dL POC Glucose (mg/dL) (70-110) mg/dL Calcium (8.4-10.2) mg/dL Troponin I 7.340 H* (0.000-0.034) ng/mL Procalcitonin >100.00 H (0.02-0.09) ng/mL Urine Appearance Cloudy H (Clear) Urine Protein 2+ H (Negative) Urine Ketones Trace H (Negative) Urine Blood Large H (Negative) Ur Leukocyte Esterase Large H (Negative) Urine RBC 23 H (0-5) /hpf Urine WBC 153 H (0-5) /hpf Urine Bacteria Moderate H (None) /hpf Urine Mucus Rare H (None) /hpf 09/27/22 09/27/22 09/28/22 Range/Units 18:37 20:45 07:17 WBC (3.8-10.6) k/uL Hgb (11.4-16.0) gm/dL Hct (34.0-46.0) % MCV (80.0-100.0) fL MCH (25.0-35.0) pg MCHC (31.0-37.0) g/dL RDW (11.5-15.5) % Plt Count (150-450) k/uL Neutrophils # (Manual) (1.3-7.7) k/uL Lymphocytes # (Manual) (1.0-4.8) k/uL Sodium 132 L (137-145) mmol/L BUN 46 H (7-17) mg/dL Creatinine 2.53 H (0.52-1.04) mg/dL POC Glucose (mg/dL) 112 H (70-110) mg/dL Calcium 7.8 L (8.4-10.2) mg/dL Troponin I 7.890 H* (0.000-0.034) ng/mL Procalcitonin (0.02-0.09) ng/mL Urine Appearance (Clear) Urine Protein (Negative) Urine Ketones (Negative) Urine Blood (Negative) Ur Leukocyte Esterase (Negative) Urine RBC (0-5) /hpf Urine WBC (0-5) /hpf Urine Bacteria (None) /hpf Urine Mucus (None) /hpf 09/28/22 09/28/22 Range/Units 07:17 11:34 WBC 22.1 H (3.8-10.6) k/uL Hgb 9.4 L (11.4-16.0) gm/dL Hct 31.1 L (34.0-46.0) % MCV 78.5 L (80.0-100.0) fL MCH 23.7 L (25.0-35.0) pg MCHC 30.2 L (31.0-37.0) g/dL RDW 18.0 H (11.5-15.5) % Plt Count 128 L (150-450) k/uL Neutrophils # (Manual) 20.70 H (1.3-7.7) k/uL Lymphocytes # (Manual) 0.66 L (1.0-4.8) k/uL Sodium (137-145) mmol/L BUN (7-17) mg/dL Creatinine (0.52-1.04) mg/dL POC Glucose (mg/dL) 141 H (70-110) mg/dL Calcium (8.4-10.2) mg/dL Troponin I (0.000-0.034) ng/mL Procalcitonin (0.02-0.09) ng/mL Urine Appearance (Clear) Urine Protein (Negative) Urine Ketones (Negative) Urine Blood (Negative) Ur Leukocyte Esterase (Negative) Urine RBC (0-5) /hpf Urine WBC (0-5) /hpf Urine Bacteria (None) /hpf Urine Mucus (None) /hpf Assessment and Plan Assessment: Acute urinary tract infection with right pyelonephritis Acute right hydronephrosis secondary to obstructing right calculus, status post cystoscopy and ureteral stent on 09/28 Acute kidney injury secondary to hypotension, present on admission Right-sided abdominal pain most likely secondary to above Elevated troponin, rule out cardiac causes Fall at home Chronic atrial fibrillation on xarelto at home History of asthma History of coronary artery disease status post stent Chronic heart failure History of CVA/TIA Diabetes mellitus Hypertension Hyperlipidemia History of osteoarthritis, with moderate to severe right neural foraminal stenosis at L5-S1 Hypothyroidism history of fibromyalgia History of DVT and pulmonary embolism Chronic kidney disease stage III Neuropathy History of depression Morbid obesity with BMI of 45.7 Plan: Continue intravenous hydration Nephrology consult, urology consult Continue with antibiotics Zosyn, infectious disease consult follow-up Hematology consult for increased metamyelocyte (from ED) Cardiology consult Labs and medication were reviewed.. Continue same treatment. Continue with symptomatic treatment. Resume home medication. Monitor labs and vitals. DVT and GI prophylaxis. Further recommendations as per clinical course of the patient DVT prophylaxis: xarelto GI Prophylaxis: Pepcid PT/OT: Pending Prognosis is guarded
[2022-09-28 20:11] LABS: Glucose,Whole Blood 118 mg/dL (70-110)
[2022-09-28] MEDS: MONTELUKAST 10 MG TAB PO SCH (20:22)
--- NOTE | 2022-09-28 20:48 | P.CONS ---
History of Present Illness - Reason for Consult Consult date: 09/28/22 Metamyelocytes on differential Requesting physician: Maurilio Adame Sheet - Chief Complaint Fall and weakness - History of Present Illness Ms. Oconnell is a very pleasant 66-year-old female with a history of DVT/PE, on long-term anticoagulation with Xarelto, seen by Dr. Chau in 2017 when she developed her VT E and hypercoagulable workup declined at that time as she would need long-term anticoagulation regardless, who is here for fall and weakness. She began having a UTI and had severe back pain from this resulting in a fall. In the ER she was found to have a WBC of 40, hemoglobin 10.6, platelet 146, differential with increased neutrophils and metamyelocytes seen. Had AK I with a creatinine of 2.7 from baseline of 0.9. UA consistent with UTI. Her troponins were also elevated at 7. CT abdomen pelvis with mild to moderate right hydronephrosis due to obstructing calculus as well as additional nonobstructing renal calculi. She was started on antibiotics and was admitted with urology evaluation. She underwent cystoscopy with pyelogram and stent placement earlier today. We were consulted for her CBC changes including metamyelocytes seen on her differential. She did have repeat CBC today which overall looked better, WBC 22, hemoglobin 9.4, platelets 128, and differential with increased neutrophils however no metamyelocytes seen. She was also aggressively hydrated with slowly downtrending creatinine. Past Medical History Past Medical History: Atrial Fibrillation, Asthma, Coronary Artery Disease (CAD), Heart Failure, CVA/TIA, Diabetes Mellitus, Deep Vein Thrombosis (DVT), Fibromyalgia, Hyperlipidemia, Hypertension, Myocardial Infarction (VT), Osteoarthritis (OA), Pulmonary Embolus (PE), Skin Disorder, Thyroid Disorder Additional Past Medical History / Comment(s): frequent uti's,kidney stones,HEART MURMUR,cardiomyopathy,CHRONIC CONSTIPATION, ECZEMA,SINUS HEADACHES, HX ANEMIA, gout. stage III kidney disease stage 3,lower back pain. 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.FEEt, weakness LT SIDE, ,stg three kidney disease,eye disorder fuchs corneal dystrophy. 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 CATARACT BLACK. WITH IMPLANTS. HEART CATH X 3 TOTAL 3 STENTS, lithotripsy,kidney stents-since removed. Past Anesthesia/Blood Transfusion Reactions: Motion Sickness Additional Past Anesthesia/Blood Transfusion Reaction / Comm: no hx blood transfusion Date of Last Stent Placement:: UNKNOWN Past Psychological History: Depression Smoking Status: Former smoker Past Alcohol Use History: None Reported Past Drug Use History: None Reported - Past Family History Father Additional Family Medical History / Comment(s): "HARDENEING OF THE ARTERIES AT AGE 41. SMOKED AND DRANK ETOH Mother Family Medical History: Cancer Additional Family Medical History / Comment(s): "cyst that ruptured between bowel and bladder" Medications and Allergies Home Medications Medication Instructions Recorded Confirmed Type Montelukast [Singulair] 10 mg PO HS 08/28/17 09/27/22 History Metoprolol Succinate (ER) [Toprol 100 mg PO DAILY 05/03/20 09/27/22 History XL] Rivaroxaban [Xarelto] 20 mg PO W/SUPPER 05/03/20 09/27/22 History Acetaminophen Tab [Tylenol] 1,000 mg PO Q6H PRN 05/22/21 09/27/22 History Levothyroxine Sodium [Synthroid] 125 mcg PO AC-BRKFST 05/22/21 09/27/22 History Loratadine [Claritin] 10 mg PO DAILY PRN 05/22/21 09/27/22 History Rosuvastatin [Crestor] 20 mg PO HS 05/22/21 09/27/22 History methocarbamoL [Robaxin] 500 mg PO TID PRN 05/22/21 09/27/22 History Glimepiride [Amaryl] 2 mg PO AC-BRKFST 12/04/21 09/27/22 History Isosorbide Mononitrate ER [Imdur] 30 mg PO DAILY 12/04/21 09/27/22 History Nitroglycerin Sl Tabs [Nitrostat] 0.4 mg SL Q5M PRN 12/04/21 09/27/22 History Nitrofurantoin Monohyd/M-Cryst 100 mg PO Q12HR #20 cap 09/25/22 09/27/22 Rx [Macrobid] DULoxetine HCL [Cymbalta] 30 mg PO BID 09/27/22 09/27/22 History Meloxicam [Mobic] 15 mg PO DAILY 09/27/22 09/27/22 History Menthol-Zinc Oxide Oint 1 applic TOPICAL BID 09/27/22 09/27/22 History [Calmoseptine Ointment] Nystatin 100,000 Unit/gm Powd 1 applic TOPICAL TID 09/27/22 09/27/22 History [Mycostatin Powder] Omeprazole [PriLOSEC] 20 mg PO AC-BRKFST 09/27/22 09/27/22 History allopurinoL 100 mg PO DAILY 09/27/22 09/27/22 History busPIRone HCl [Buspar] 10 mg PO BID 09/27/22 09/27/22 History lisinopriL [Zestril] 5 mg PO DAILY 09/27/22 09/27/22 History Allergies Allergy/AdvReac Type Severity Reaction Status Date / Time grass pollen Allergy Sinus Verified 09/27/22 10:10 latex Allergy Rash/Hives Verified 09/27/22 10:10 mold Allergy Sinus Verified 09/27/22 10:10 pollen extracts Allergy Sinus Verified 09/27/22 10:10 tree and shrub pollen Allergy Sinus Verified 09/27/22 10:10 Milk Containing Products AdvReac THRUSH Verified 09/27/22 10:10 [Dairy] Tetracyclines AdvReac YEAST Verified 09/27/22 10:10 INFECTION- PREFERS NOT TO TAKE ENVIRONMENTAL ALLERGIES Allergy SINUS Uncoded 09/27/22 09:31 SYMPTOMS-GRASS TREES,DUST,POLLENS,MOLD Physical Exam Vitals: Vital Signs Temp Pulse Pulse Resp BP BP Pulse Ox 09/28/22 17:58 83/55 09/28/22 16:29 80 18 86/56 90 L 09/28/22 14:24 103 H 18 09/28/22 11:35 98.0 F 103 H 18 105/69 90 L 09/28/22 09:45 91 16 115/51 95 09/28/22 09:31 102 H 16 09/28/22 09:30 92 16 113/52 100 09/28/22 09:15 97 16 96/50 100 09/28/22 09:10 98.5 F 112 H 16 95/52 100 09/28/22 08:10 97/63 09/28/22 08:00 102 H 18 79/60 91 L 09/28/22 04:00 70 16 139/71 96 09/27/22 23:48 98.1 F 72 17 117/69 95 09/27/22 20:13 102 H 22 121/75 97 Intake and Output 09/28/22 09/28/22 09/28/22 06:59 14:59 22:59 Intake Total 510 Output Total 250 360 Balance -250 510 -360 Intake: IV 400 Oral 110 Output: Urine 250 360 Other: Voiding Method Indwelling Catheter Patient's in no acute distress. No respiratory distress. Alert and oriented 3. No jaundice. Results CBC & Chem 7: 09/28/22 07:17 09/28/22 07:17 Labs: Abnormal Lab Results - Last 24 Hours (Table) 09/27/22 09/27/22 09/27/22 Range/Units 10:00 18:37 20:45 WBC (3.8-10.6) k/uL Hgb (11.4-16.0) gm/dL Hct (34.0-46.0) % MCV (80.0-100.0) fL MCH (25.0-35.0) pg MCHC (31.0-37.0) g/dL RDW (11.5-15.5) % Plt Count (150-450) k/uL Neutrophils # (Manual) (1.3-7.7) k/uL Lymphocytes # (Manual) (1.0-4.8) k/uL Sodium (137-145) mmol/L BUN (7-17) mg/dL Creatinine (0.52-1.04) mg/dL POC Glucose (mg/dL) 112 H (70-110) mg/dL Calcium (8.4-10.2) mg/dL Troponin I 7.890 H* (0.000-0.034) ng/mL Procalcitonin >100.00 H (0.02-0.09) ng/mL 09/28/22 09/28/22 09/28/22 Range/Units 07:17 07:17 11:34 WBC 22.1 H (3.8-10.6) k/uL Hgb 9.4 L (11.4-16.0) gm/dL Hct 31.1 L (34.0-46.0) % MCV 78.5 L (80.0-100.0) fL MCH 23.7 L (25.0-35.0) pg MCHC 30.2 L (31.0-37.0) g/dL RDW 18.0 H (11.5-15.5) % Plt Count 128 L (150-450) k/uL Neutrophils # (Manual) 20.70 H (1.3-7.7) k/uL Lymphocytes # (Manual) 0.66 L (1.0-4.8) k/uL Sodium 132 L (137-145) mmol/L BUN 46 H (7-17) mg/dL Creatinine 2.53 H (0.52-1.04) mg/dL POC Glucose (mg/dL) 141 H (70-110) mg/dL Calcium 7.8 L (8.4-10.2) mg/dL Troponin I (0.000-0.034) ng/mL Procalcitonin (0.02-0.09) ng/mL 09/28/22 Range/Units 16:17 WBC (3.8-10.6) k/uL Hgb (11.4-16.0) gm/dL Hct (34.0-46.0) % MCV (80.0-100.0) fL MCH (25.0-35.0) pg MCHC (31.0-37.0) g/dL RDW (11.5-15.5) % Plt Count (150-450) k/uL Neutrophils # (Manual) (1.3-7.7) k/uL Lymphocytes # (Manual) (1.0-4.8) k/uL Sodium (137-145) mmol/L BUN (7-17) mg/dL Creatinine (0.52-1.04) mg/dL POC Glucose (mg/dL) 181 H (70-110) mg/dL Calcium (8.4-10.2) mg/dL Troponin I (0.000-0.034) ng/mL Procalcitonin (0.02-0.09) ng/mL CT scan - abdomen: report reviewed CT Scan - head: report reviewed CT scan - pelvis: report reviewed Assessment and Plan Assessment: 1. Pyelonephritis 2. Hydronephrosis due to large stone 3. Leukocytosis with left shift including metamyelocytes, reactive 4. 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 ZAINA 6. Anemia and thrombocytopenia Plan: Mrs. Oconnell is a very pleasant 66-year-old female who is here for back pain due to right hydronephrosis from renal stone and pyelonephritis, status post cystoscopy with stent placement. Found to have severe leukocytosis with a WBC of 40, differential with left shift including metamyelocytes. Also with anemia and AK I and increased troponin. Overall CBC, creatinine, and troponin are slo wly improving with antibiotics and hydration. Anemia slightly worse with hydration and now she has mild thrombocytopenia can likely due to bone marrow suppression from acute illness and acute kidney injury. -Suspect her left shift including metamyelocytes are due to severe infection; she does have some toxic changes on the smear as well. -Overall improving with antibiotics -We'll send flow cytometry to ensure no other contributing etiology however doubt that she has underlying bone marrow process -She also has anemia and serum cytopenia, likely due to renal dysfunction and bone marrow suppression from acute infection -We'll obtain workup including B12, folate, iron panel and supplement as needed -Continue to monitor CBC Discussed with patient she is agreeable to the plan. All of her questions were answered.
[2022-09-29] MEDS: PIPERACILLIN-TAZOBACTAM 3.375 GM in SODIUM CHLORIDE 0.9% 100 ML IVPB SCH ×2 (04:14→15:29)
[2022-09-29 05:56] LABS: Glucose,Whole Blood 111 mg/dL (70-110)
[2022-09-29] MEDS: SODIUM CHLORIDE 0.9% 1,000 ML IV SCH ×2 (06:20→12:45)
[2022-09-29] MEDS: LEVOTHYROXINE 125 MCG TAB PO SCH (06:21)
[2022-09-29] MEDS: INSULIN ASPART (NovoLOG) 100 UNIT/ML VIAL SQ SCH ×4 (06:21→20:30)
[2022-09-29 08:02] LABS: African American GFR (CKD) 35 (>60 ml/min/1.73 sqM); Anion Gap 6 mmol/L; Blood Urea Nitrogen 44 mg/dL (7-17); Calcium 7.4 mg/dL (8.4-10.2); Carbon Dioxide 22 mmol/L (22-30); Chloride 106 mmol/L (98-107); Glucose 97 mg/dL (74-99); Non-African American GFR(CKD) 31 (>60 ml/min/1.73 sqM); Potassium 4.5 mmol/L (3.5-5.1); Sodium 134 mmol/L (137-145)
[2022-09-29] MEDS: ASPIRIN 81 MG PO SCH (08:24)
[2022-09-29] MEDS: DULoxetine HCL 30 MG CAPSULE.DR PO SCH ×2 (08:24→20:30)
[2022-09-29] MEDS: ATORVASTATIN 40 MG TAB PO SCH (08:24)
[2022-09-29] MEDS: allopurinoL 100 MG TAB PO SCH (08:24)
[2022-09-29] MEDS: METOPROLOL SUCCINATE (ER) 25 MG TAB.ER.24H PO SCH ×2 (08:24→20:30)
[2022-09-29] MEDS: busPIRone HCl 10 MG TAB PO SCH ×2 (08:24→20:30)
[2022-09-29 10:27] LABS: Anisocytosis Slight; Basophils # (A) 0.1 k/uL (0-0.2); Basophils % (A) 0 %; Eosinophils # (A) 0.2 k/uL (0-0.7); Eosinophils % (A) 1 %; HCT 32.9 % (34.0-46.0); HGB 9.8 gm/dL (11.4-16.0); Hypochromasia Marked; Lymphocytes # (A) 0.8 k/uL (1.0-4.8); Lymphocytes % (A) 5 %; MCH 24.5 pg (25.0-35.0); MCHC 29.9 g/dL (31.0-37.0); MCV 81.9 fL (80.0-100.0); Mean Platelet Volume 7.7; Microcytosis Slight; Monocytes # (A) 0.6 k/uL (0-1.0); Monocytes % (A) 4 %; Neutrophils # (A) 15.6 k/uL (1.3-7.7); Neutrophils % (A) 89 %; Platelet Count 114 k/uL (150-450); RBC 4.02 m/uL (3.80-5.40); RDW 18.4 % (11.5-15.5); WBC 17.6 k/uL (3.8-10.6)
--- NOTE | 2022-09-29 10:29 | P.PN ---
Subjective Progress Note Date: 09/28/22 Principal diagnosis: R sided pyelonephritis Patient is a 66-year female with multiple comorbidities including recurrent UTI presenting to the hospital with weakness and unable to do anything patient on presentation to the hospital have a low-grade fever significant elev ated white count positive UA concerning for symptomatic UTI patient did have a CT abdominal pelvis with evidence of right sided hydroureteronephrosis this patient is status post cystoscopy and right ureteral stent placement by urology on 09/28/2022. On today's evaluation that is 09/28/2022 the patient is afebrile patient is feeling slightly better breathing comfortably currently on 2 L nasal cannula oxygen denies any chest pain shortness of breath or cough abdominal pain decreased in intensity no nausea vomiting diarrhea Objective - Vital Signs Vital signs: Vital Signs Temp 98.0 F 09/28/22 11:35 Pulse 103 H 09/28/22 11:35 Resp 18 09/28/22 11:35 BP 105/69 09/28/22 11:35 Pulse Ox 90 L 09/28/22 11:35 FiO2 Intake & Output 09/27/22 09/28/22 09/28/22 18:59 06:59 18:59 Intake Total 474 510 Output Total 250 Balance 224 510 Weight 113.353 kg 113.353 kg Intake: IV 400 Oral 474 110 Output: Urine 250 Other: Voiding Method Indwelling Catheter Indwelling Catheter - Exam GENERAL DESCRIPTION: Elderly female lying in bed in no distress RESPIRATORY SYSTEM: Unlabored breathing , decreased breath sounds at bases HEART: S1 S2 regular rate and rhythm ,no loud murmurs ABDOMEN: Soft , no tenderness EXTREMITIES: No edema feet - Labs CBC & Chem 7: 09/28/22 07:17 09/29/22 06:48 Labs: Abnormal Lab Results - Last 24 Hours (Table) 09/27/22 09/27/22 09/27/22 Range/Units 10:00 14:09 18:30 WBC (3.8-10.6) k/uL Hgb (11.4-16.0) gm/dL Hct (34.0-46.0) % MCV (80.0-100.0) fL MCH (25.0-35.0) pg MCHC (31.0-37.0) g/dL RDW (11.5-15.5) % Plt Count (150-450) k/uL Neutrophils # (Manual) (1.3-7.7) k/uL Lymphocytes # (Manual) (1.0-4.8) k/uL Sodium (137-145) mmol/L BUN (7-17) mg/dL Creatinine (0.52-1.04) mg/dL POC Glucose (mg/dL) (70-110) mg/dL Calcium (8.4-10.2) mg/dL Troponin I 7.340 H* (0.000-0.034) ng/mL Procalcitonin >100.00 H (0.02-0.09) ng/mL Urine Appearance Cloudy H (Clear) Urine Protein 2+ H (Negative) Urine Ketones Trace H (Negative) Urine Blood Large H (Negative) Ur Leukocyte Esterase Large H (Negative) Urine RBC 23 H (0-5) /hpf Urine WBC 153 H (0-5) /hpf Urine Bacteria Moderate H (None) /hpf Urine Mucus Rare H (None) /hpf 09/27/22 09/27/22 09/28/22 Range/Units 18:37 20:45 07:17 WBC (3.8-10.6) k/uL Hgb (11.4-16.0) gm/dL Hct (34.0-46.0) % MCV (80.0-100.0) fL MCH (25.0-35.0) pg MCHC (31.0-37.0) g/dL RDW (11.5-15.5) % Plt Count (150-450) k/uL Neutrophils # (Manual) (1.3-7.7) k/uL Lymphocytes # (Manual) (1.0-4.8) k/uL Sodium 132 L (137-145) mmol/L BUN 46 H (7-17) mg/dL Creatinine 2.53 H (0.52-1.04) mg/dL POC Glucose (mg/dL) 112 H (70-110) mg/dL Calcium 7.8 L (8.4-10.2) mg/dL Troponin I 7.890 H* (0.000-0.034) ng/mL Procalcitonin (0.02-0.09) ng/mL Urine Appearance (Clear) Urine Protein (Negative) Urine Ketones (Negative) Urine Blood (Negative) Ur Leukocyte Esterase (Negative) Urine RBC (0-5) /hpf Urine WBC (0-5) /hpf Urine Bacteria (None) /hpf Urine Mucus (None) /hpf 09/28/22 09/28/22 Range/Units 07:17 11:34 WBC 22.1 H (3.8-10.6) k/uL Hgb 9.4 L (11.4-16.0) gm/dL Hct 31.1 L (34.0-46.0) % MCV 78.5 L (80.0-100.0) fL MCH 23.7 L (25.0-35.0) pg MCHC 30.2 L (31.0-37.0) g/dL RDW 18.0 H (11.5-15.5) % Plt Count 128 L (150-450) k/uL Neutrophils # (Manual) 20.70 H (1.3-7.7) k/uL Lymphocytes # (Manual) 0.66 L (1.0-4.8) k/uL Sodium (137-145) mmol/L BUN (7-17) mg/dL Creatinine (0.52-1.04) mg/dL POC Glucose (mg/dL) 141 H (70-110) mg/dL Calcium (8.4-10.2) mg/dL Troponin I (0.000-0.034) ng/mL Procalcitonin (0.02-0.09) ng/mL Urine Appearance (Clear) Urine Protein (Negative) Urine Ketones (Negative) Urine Blood (Negative) Ur Leukocyte Esterase (Negative) Urine RBC (0-5) /hpf Urine WBC (0-5) /hpf Urine Bacteria (None) /hpf Urine Mucus (None) /hpf Assessment and Plan (1) Leukocytosis Current Visit: Yes Status: Acute Code(s): D72.829 - ELEVATED WHITE BLOOD C ELL COUNT, UNSPECIFIED SNOMED Code(s): 210948220 (2) UTI (urinary tract infection) Current Visit: No Status: Acute Code(s): N39.0 - URINARY TRACT INFECTION, SITE NOT SPECIFIED SNOMED Code(s): 71834693 Plan: 1patient presented hospital with sepsis in this patient who did have low-grade fever tachycardia elevated white count meeting criteria for SIRS. Likely he will agree however the patient also noticed to be slightly tender on the right lower abdominal area underlying abdominal source not entirely excluded. 2 CT of abdominal pelvis with oral contrast did shows right-sided hydroureteronephrosis in this patient status post otoscopy and ureteral stent placement. 3we will continue patient on Zosyn while waiting for the culture to finalize and monitor clinical course closely Time with Patient: Less than 30
--- NOTE | 2022-09-29 11:14 | P.CRDCN ---
History of Present Illness Consult date: 09/29/22 Reason for Consult (text): Elevated troponin History of present illness: This is Zaheer Arrington NP, I'm dictating on behalf of Dr. Taylor's H&P and A&P The patient was interviewed and examined. HPI: Patient is a pleasant 66-year-old female who presented to the hospital with acute kidney injury secondary to obstructive stone and urinary tract infection. Patient was started on IV antibiotics, and was taken by urology yesterday for removal of an approximately 11 mm stone in the ureter. This has assisted in improving both the patient's BUN/creatinine, as well as allowing the infection to leave her body. We were consulted due to the patient demonstrating elevated troponins upon admission. The patient reports that she had no chest pain, no shortness of breath, but did have some nausea and vomiting prior to admission. Patient is morbidly obese. Patient has a pertinent past medical history that includes atrial fibrillation, asthma, coronary artery disease, congestive heart failure, diabetes, DVT, hyperlipidemia, hypertension, myocardial infarction, pulmonary emboli, and thyroid disease. Patient has a pertinent past surgical history that includes cardiac ablation, cholecystectomy, stent placement during cardiac catheterization. Patient is interviewed and examined while lying in the bed. Patient reports improvement in her overall symptoms this morning. She continues to deny chest pain, shortness of breath, and reports that her nausea and vomiting have resolved. ROS: [No fever, chills, or rigors] [no cough, phlegm, or expectoration] [no nausea, vomiting, or diarrhea] [no hematuria, dysuria] [no musculoskelatal complaints] [no strokes or seizures] [no skin lesions] EXAMINATION: GENERAL: Well-appearing, well-nourished and in no acute distress. NECK: Supple without JVD or thyromegaly. LUNGS: Breath sounds clear to auscultation bilaterally. Respiration equal and unlabored. No wheezes, rales or rhonchi. HEART: Regular rate and rhythm without murmurs, rubs or gallops. S1 and S2 heard. EXTREMITIES: Normal range of motion, no edema. No clubbing or cyanosis. Peripheral pulses intact and strong. REVIEW OF LABS, ECG & MEDICAL DATA: LABS: White count 17.6, hemoglobin 9.8, platelets 114, sodium 134, potassium 4.5, B1 44, creatinine 1.71, troponin 7.89 EKG: EKG dated 09/27/2022 demonstrates sinus tachycardia. Patient's currently in normal sinus rhythm IMAGING: CT of the head and C-spine dated 09/27/2022 demonstrates age-related atrophy and chronic small vessel ischemic changes without acute intracranial process seen at this time, no evidence for acute fracture or subluxation of the cervical spine. Chest x-ray dated 09/27/2022 demonstrates no focal consolidation to suggest airspace disease, cardiomegaly and mild pulmonary vascular congestion, correlate with BNP for congestive heart failure. CT of the abdomen and pelvis dated 09/27/2022 demonstrates mild to moderate right hydronephrosis secondary to obstructing 11 mm calculus at the ureteropelvic junction, additional nonobstructing bilateral renal calculi, atrophic appearing left kidney, ischiofemoral impingement syndrome bilaterally right greater than left, mild cardiomegaly. VITALS: Temp 98.2, pulse 95, respirations 18, blood pressure 106/72, O2 saturation 92% on 2 L IMPRESSION: 1. Elevated troponin in the presence of acute kidney injury 2. Urinary tract infection secondary to obstructive stone 3. History congestive heart failure 4. History of cardiac stent placement PLAN: We were unable to see the patient yesterday on rounds due to her being down for the stone removal, please see that note for previous orders. Increase metoprolol to 25 mg twice a day. Increase atorvastatin 80 mg daily. Obtain echocardiogram with Definity contrast tomorrow morning. Resume anticoagulation when okay with urology. Ischemia workup will be completed once infection is addressed. Further recommendations based on patient's clinical course. Thank you for the consult and allowing us to participate in the care of this patient. Past Medical History Past Medical History: Atrial Fibrillation, Asthma, Coronary Artery Disease (CAD), Heart Failure, CVA/TIA, Diabetes Mellitus, Deep Vein Thrombosis (DVT), Fibromyalgia, Hyperlipidemia, Hypertension, Myocardial Infarction (RI), Osteoarthritis (OA), Pulmonary Embolus (PE), Skin Disorder, Thyroid Disorder Additional Past Medical History / Comment(s): frequent uti's,kidney stones,HEART MURMUR,cardiomyopathy,CHRONIC CONSTIPATION, ECZEMA,SINUS HEADACHES, HX ANEMIA, gout. stage III kidney disease stage 3,lower back pain. 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.FEEt, weakness LT SIDE, ,stg three kidney disease,eye disorder fuchs corneal dystrophy. Last Myocardial Infarction Date:: UNKNOWN History of Any Multi-Drug Resistant Organisms: ESBL, MRSA Date of last positivie culture/infection: 01/02/22 MRSA;02/28/18-ESBL MDRO Source:: Urine-MRSA; Urine ESBL Past Surgical History: Appendectomy, Cardiac Ablation, Cholecystectomy, Heart Catheterization, Heart Catheterization With Stent, Hysterectomy Additional Past Surgical History / Comment(s): PARTIAL HYSTERECTOMY 03/18/14 @ [facility]. CATARACT BLACK. WITH IMPLANTS. HEART CATH X 3 TOTAL 3 STENTS, lithotripsy,kidney stents-since removed. Past Anesthesia/Blood Transfusion Reactions: Motion Sickness Additional Past Anesthesia/Blood Transfusion Reaction / Comment(s): no hx blood transfusion Date of Last Stent Placement:: UNKNOWN Past Psychological History: Depression Smoking Status: Former smoker Past Alcohol Use History: None Reported Past Drug Use History: None Reported - Past Family History Father Additional Family Medical History / Comment(s): "HARDENEING OF THE ARTERIES AT AGE 41. SMOKED AND DRANK ETOH Mother Family Medical History: Cancer Additional Family Medical History / Comment(s): "cyst that ruptured between bowel and bladder" Medications and Allergies Home Medications Medication Instructions Recorded Confirmed Type Montelukast [Singulair] 10 mg PO HS 08/28/17 09/27/22 History Metoprolol Succinate (ER) [Toprol 100 mg PO DAILY 05/03/20 09/27/22 History XL] Rivaroxaban [Xarelto] 20 mg PO W/SUPPER 05/03/20 09/27/22 History Acetaminophen Tab [Tylenol] 1,000 mg PO Q6H PRN 05/22/21 09/27/22 History Levothyroxine Sodium [Synthroid] 125 mcg PO AC-BRKFST 05/22/21 09/27/22 History Loratadine [Claritin] 10 mg PO DAILY PRN 05/22/21 09/27/22 History Rosuvastatin [Crestor] 20 mg PO HS 05/22/21 09/27/22 History methocarbamoL [Robaxin] 500 mg PO TID PRN 05/22/21 09/27/22 History Glimepiride [Amaryl] 2 mg PO AC-BRKFST 12/04/21 09/27/22 History Isosorbide Mononitrate ER [Imdur] 30 mg PO DAILY 12/04/21 09/27/22 History Nitroglycerin Sl Tabs [Nitrostat] 0.4 mg SL Q5M PRN 12/04/21 09/27/22 History Nitrofurantoin Monohyd/M-Cryst 100 mg PO Q12HR #20 cap 09/25/22 09/27/22 Rx [Macrobid] DULoxetine HCL [Cymbalta] 30 mg PO BID 09/27/22 09/27/22 History Meloxicam [Mobic] 15 mg PO DAILY 09/27/22 09/27/22 History Menthol-Zinc Oxide Oint 1 applic TOPICAL BID 09/27/22 09/27/22 History [Calmoseptine Ointment] Nystatin 100,000 Unit/gm Powd 1 applic TOPICAL TID 09/27/22 09/27/22 History [Mycostatin Powder] Omeprazole [PriLOSEC] 20 mg PO AC-BRKFST 09/27/22 09/27/22 History allopurinoL 100 mg PO DAILY 09/27/22 09/27/22 History busPIRone HCl [Buspar] 10 mg PO BID 09/27/22 09/27/22 History lisinopriL [Zestril] 5 mg PO DAILY 09/27/22 09/27/22 History Allergies Allergy/AdvReac Type Severity Reaction Status Date / Time grass pollen Allergy Sinus Verified 09/27/22 10:10 latex Allergy Rash/Hives Verified 09/27/22 10:10 mold Allergy Sinus Verified 09/27/22 10:10 pollen extracts Allergy Sinus Verified 09/27/22 10:10 tree and shrub pollen Allergy Sinus Verified 09/27/22 10:10 Milk Containing Products AdvReac THRUSH Verified 09/27/22 10:10 [Dairy] Tetracyclines AdvReac YEAST Verified 09/27/22 10:10 INFECTION- PREFERS NOT TO TAKE ENVIRONMENTAL ALLERGIES Allergy SINUS Uncoded 09/27/22 09:31 SYMPTOMS-GRASS TREES,DUST,POLLENS,MOLD Physical Exam Vitals: Vital Signs Temp Pulse Resp BP Pulse Ox 09/29/22 10:14 95 18 09/29/22 08:17 98.2 F 95 18 106/72 92 L 09/29/22 06:21 92 118/69 06/25/23 04:00 98.3 F 96 17 102/53 93 L 09/29/22 01:55 18 09/28/22 23:41 92 17 105/50 94 L 09/28/22 20:00 98.1 F 91 17 104/70 92 L 09/28/22 17:58 83/55 09/28/22 16:29 80 18 86/56 90 L 09/28/22 14:24 103 H 18 09/28/22 11:35 98.0 F 103 H 18 105/69 90 L Intake and Output 09/28/22 09/29/22 09/29/22 22:59 06:59 14:59 Output Total 360 500 Balance -360 -500 Output: Urine 360 500 Other: Voiding Method Indwelling Catheter Indwelling Catheter Indwelling Catheter # Bowel Movements 1 Results 09/29/22 08:32 09/29/22 06:48 CBC 09/29/22 Range/Units 08:32 WBC 17.6 H (3.8-10.6) k/uL RBC 4.02 (3.80-5.40) m/uL Hgb 9.8 L (11.4-16.0) gm/dL Hct 32.9 L (34.0-46.0) % Plt Count 114 L (150-450) k/uL Comprehensive Metabolic Panel 09/29/22 Range/Units 06:48 Sodium 134 L (137-145) mmol/L Potassium 4.5 (3.5-5.1) mmol/L Chloride 106 (98-107) mmol/L Carbon Dioxide 22 (22-30) mmol/L BUN 44 H (7-17) mg/dL Creatinine 1.71 H (0.52-1.04) mg/dL Glucose 97 (74-99) mg/dL Calcium 7.4 L (8.4-10.2) mg/dL Current Medications Generic Name Dose Route Start Last Admin Trade Name Freq PRN Reason Stop Dose Admin Acetaminophen 1,000 mg 09/27/22 18:25 09/28/22 21:58 Acetaminophen Tab 500 Mg Tab PO 1,000 mg Q6H PRN Administration Pain Allopurinol 100 mg 09/28/22 09:00 09/29/22 08:24 Allopurinol 100 Mg Tab PO 100 mg DAILY YOANA Administration Aspirin 81 mg 09/28/22 09:00 09/29/22 08:24 Aspirin 81 Mg PO 81 mg DAILY YOANA Administration Atorvastatin Calcium 80 mg 09/30/22 09:00 Atorvastatin 80 Mg Tab PO DAILY YOANA Buspirone HCl 10 mg 09/27/22 21:00 09/29/22 08:24 Buspirone Hcl 10 Mg Tab PO 10 mg BID YOANA Administration Dextrose/Water 25 ml 09/28/22 11:46 Dextrose 50% Syringe 50 Ml IVP PER PROTOCOL PRN Hypoglycemia Protocol Dextrose/Water 50 ml 09/28/22 11:46 Dextrose 50% Syringe 50 Ml IVP PER PROTOCOL PRN Hypoglycemia Protocol Duloxetine HCl 30 mg 09/27/22 21:00 09/29/22 08:24 Duloxetine Hcl 30 Mg Capsule.Dr PO 30 mg BID YOANA Administration Sodium Chloride 1,000 mls @ 75 mls/hr 09/27/22 13:00 09/29/22 06:20 Saline 0.9% IV Not Given .[id number] YOANA Piperacillin Sod/Tazobactam 100 mls @ 25 mls/hr 09/27/22 16:00 09/29/22 04:14 Sod 3.375 gm/ Sodium Chloride IVPB 25 mls/hr Q12H YOANA Administration Protocol Insulin Aspart 0 unit 09/28/22 12:30 09/29/22 06:21 Insulin Aspart (Novolog) 100 Unit/Ml Vial SQ Not Given ACHS [facility] Protocol Levothyroxine Sodium 125 mcg 09/28/22 07:30 09/29/22 06:21 Levothyroxine 125 Mcg Tab PO 125 mcg AC-BRKFST YOANA Administration Metoprolol Succinate 25 mg 09/29/22 21:00 Metoprolol Succinate (Er) 25 Mg Tab.Er.24h PO BID [facility] Montelukast Sodium 10 mg 09/27/22 21:00 09/28/22 20:22 Montelukast 10 Mg Tab PO 10 mg HS YOANA Administration Naloxone HCl 0.2 mg 09/27/22 12:46 Naloxone 0.4 Mg/Ml 1 Ml Vial IV Q2M PRN Opioid Reversal Nitroglycerin 0.4 mg 09/27/22 18:27 Nitroglycerin Sl Tabs 0.4 Mg Tab SUBLINGUAL Q5M PRN Chest Pain Intake and Output 09/28/22 09/29/22 09/29/22 22:59 06:59 14:59 Output Total 360 500 Balance -360 -500 Output: Urine 360 500 Other: Voiding Method Indwelling Catheter Indwelling Catheter Indwelling Catheter # Bowel Movements 1 09/29/22 08:32 09/29/22 06:48
--- NOTE | 2022-09-29 11:21 | P.PN ---
Subjective Progress Note Date: 09/29/22 Patient is first postoperative day from a stent for an obstructing right ureteral stone with right pyonephrosis. Her vital signs are stable. She is afebrile. Her white count is down to 17,000 from 40,000. At some point in time she'll need stone manipulation but that'll be in the future. Objective - Vital Signs Vital signs: Vital Signs Temp 98.2 F 09/29/22 08:17 Pulse 95 09/29/22 10:14 Resp 18 09/29/22 10:14 BP 106/72 09/29/22 08:17 Pulse Ox 92 L 09/29/22 08:17 FiO2 Intake & Output 09/28/22 09/29/22 09/29/22 18:59 06:59 18:59 Intake Total 510 Output Total 360 500 Balance 150 -500 Intake: IV 400 Oral 110 Output: Urine 360 500 Other: Voiding Method Indwelling Catheter Indwelling Catheter Indwelling Catheter # Bowel Movements 1 - Labs CBC & Chem 7: 09/29/22 08:32 09/29/22 06:48 Labs: Abnormal Lab Results - Last 24 Hours (Table) 09/28/22 09/28/22 09/28/22 Range/Units 11:34 16:17 20:07 WBC (3.8-10.6) k/uL Hgb (11.4-16.0) gm/dL Hct (34.0-46.0) % MCH (25.0-35.0) pg MCHC (31.0-37.0) g/dL RDW (11.5-15.5) % Plt Count (150-450) k/uL Neutrophils # (1.3-7.7) k/uL Lymphocytes # (1.0-4.8) k/uL Sodium (137-145) mmol/L BUN (7-17) mg/dL Creatinine (0.52-1.04) mg/dL POC Glucose (mg/dL) 141 H 181 H 118 H (70-110) mg/dL Calcium (8.4-10.2) mg/dL 09/29/22 09/29/22 09/29/22 Range/Units 05:53 06:48 08:32 WBC 17.6 H (3.8-10.6) k/uL Hgb 9.8 L (11.4-16.0) gm/dL Hct 32.9 L (34.0-46.0) % MCH 24.5 L (25.0-35.0) pg MCHC 29.9 L (31.0-37.0) g/dL RDW 18.4 H (11.5-15.5) % Plt Count 114 L (150-450) k/uL Neutrophils # 15.6 H (1.3-7.7) k/uL Lymphocytes # 0.8 L (1.0-4.8) k/uL Sodium 134 L (137-145) mmol/L BUN 44 H (7-17) mg/dL Creatinine 1.71 H (0.52-1.04) mg/dL POC Glucose (mg/dL) 111 H (70-110) mg/dL Calcium 7.4 L (8.4-10.2) mg/dL Microbiology - Last 24 Hours (Table) 09/27/22 13:30 Blood Culture - Preliminary Blood Assessment and Plan Assessment: Impression: Urinary tract infection with sepsis, right ureteral stone with obstruction and pyelonephrosis. Status post stent placement. Multiple medical illnesses. Recommendations: Antibiotic treatment as you are doing. We'll do a stone and stent removal later date.
[2022-09-29 11:35] LABS: Glucose,Whole Blood 132 mg/dL (70-110)
[2022-09-29 13:48] LABS: Albumin 2.9 d/dL (3.8-4.9); Immunoglobulin M <35.0 mg/dL (40.0-280.0); Protein, Total 5.3 d/dL (6.2-8.2)
[2022-09-29 14:10] LABS: % Iron Saturation 3.88 (12.00-45.00); Iron 13 UG/DL (50-170); Total Iron Binding Capacity 335 UG/DL (228-460)
--- NOTE | 2022-09-29 14:34 | P.PN ---
Subjective This is a pleasant 66 years old female with multiple medical problems as below Atrial Fibrillation, Asthma, Coronary Artery Disease, Heart Failure, CVA/TIA, Diabetes Mellitus, Deep Vein Thrombosis , Fibromyalgia, Hyperlipidemia, Hypertension, Osteoarthritis (OA), Pulmonary Embolus (PE), hypothyroidism, constipation, chronic kidney disease stage III, neuropathy, depression Patient presents because of she fell at home without losing consciousness and feeling generally weak for the last 2 days. Patient could not get up after she fell After a fall she's been having more pain in her neck. Also she's been complaining of from some back pain for the last few days She is also complaining of from right-sided abdominal pain and bright: Pain most likely related to recent UTI,Pain is not specific on the right side mild to moderate in severity with no relieving or precipitating factors Patient is mildly tachycardic around 106 Blood pressure is borderline on admission 82/52 Osteopenia and extensive artifacts from patient very large body habitus limited evaluation. Hypertrophic facet arthropathy, moderate to severe right neural foraminal stenosis at L5-S1 and nephrolithiasis and hepatic steatosis CT of the brain: Age-related atrophy with no acute intracranial process. Cervical spine acute is negative for acute pathology Abdominal x-ray on 09/25: Unremarkable abdomen Abdominal ultrasound: Mild prominence of the pancreatic duct within the head of the pancreas, consider follow-up with ERCP. Nonobstructing right renal stones. Right renal cyst superior pole Urine analysis is suspicious for infection on Room emergency room ID team, hematology/oncology and nephrology was consulted Creatinine went up to 0.9 and 2.7. Was elevated. Liver enzymes mildly elevated with AST 59 and ALT 36 with normal bilirubin. Lipase is normal. Urine culture: Gram-negative 09/28/[address] of the abdomen and pelvis done yesterday showing obstructing calculus with right hydronephrosis, urology consulted, patient status post cystoscopy and retrograde urethrogram and placement of stent. Urine culture is growing Citrobacter frundii with sensitivity reviewed. Patient remains on Zosyn and IV vancomycin. Broadcalcitonin is more than 100 Cartilage team on the case for elevated troponin as he had chest pain last night, troponin around 7. Commissions Coordinator and it aspirated and metoprolol and started. 09/29/2022 Patient today looks better today, her urinary symptoms improved after stent placement and creatinine is trending down Commissions Coordinator on the case for elevated troponin and they recommended ischemic workup once infection is been controlled Discussed with the bedside nurse to resume xarelto at home dose once cleared by urologist Continue with Zosyn, normal saline 75 mL/h. Also patient on Toprol and statin added by director career as well as baby aspirin Objective - Vital Signs Vital signs: Vital Signs Temp 98.2 F 09/29/22 08:17 Pulse 85 09/29/22 12:39 Resp 18 09/29/22 12:42 BP 105/73 09/29/22 12:39 Pulse Ox 96 09/29/22 12:42 FiO2 Intake & Output 09/28/22 09/29/22 09/29/22 18:59 06:59 18:59 Intake Total 510 Output Total 360 500 400 Balance 150 -500 -400 Intake: IV 400 Oral 110 Output: Urine 360 500 400 Other: Voiding Method Indwelling Catheter Indwelling Catheter Indwelling Catheter # Bowel Movements 1 - Exam GENERAL: The patient is alert and oriented x3, not in any acute distress. Well developed, well nourished. HEENT: Pupils are round and equally reacting to light. EOMI. No scleral icterus. No conjunctival pallor. Normocephalic, atraumatic. No pharyngeal erythema. No thyromegaly. CARDIOVASCULAR: S1 and S2 present. No murmurs, rubs, or gallops. PULMONARY: Chest is clear to auscultation, no wheezing . no crackles. -ABDOMEN: Soft, right abdominal tenderness improving, nondistended, normoactive bowel sounds. No palpable organomegaly. MUSCULOSKELETAL: No joint swelling or deformity. EXTREMITIES: No cyanosis, clubbing, or pedal edema. NEUROLOGICAL: Gross neurological examination did not reveal any focal deficits. SKIN: No rashes. no petechiae. - Labs CBC & Chem 7: 09/29/22 08:32 09/29/22 06:48 Labs: Abnormal Lab Results - Last 24 Hours (Table) 09/28/22 09/28/22 09/29/22 Range/Units 16:17 20:07 05:53 WBC (3.8-10.6) k/uL Hgb (11.4-16.0) gm/dL Hct (34.0-46.0) % MCH (25.0-35.0) pg MCHC (31.0-37.0) g/dL RDW (11.5-15.5) % Plt Count (150-450) k/uL Neutrophils # (1.3-7.7) k/uL Lymphocytes # (1.0-4.8) k/uL Sodium (137-145) mmol/L BUN (7-17) mg/dL Creatinine (0.52-1.04) mg/dL POC Glucose (mg/dL) 181 H 118 H 111 H (70-110) mg/dL Calcium (8.4-10.2) mg/dL 09/29/22 09/29/22 09/29/22 Range/Units 06:48 08:32 11:34 WBC 17.6 H (3.8-10.6) k/uL Hgb 9.8 L (11.4-16.0) gm/dL Hct 32.9 L (34.0-46.0) % MCH 24.5 L (25.0-35.0) pg MCHC 29.9 L (31.0-37.0) g/dL RDW 18.4 H (11.5-15.5) % Plt Count 114 L (150-450) k/uL Neutrophils # 15.6 H (1.3-7.7) k/uL Lymphocytes # 0.8 L (1.0-4.8) k/uL Sodium 134 L (137-145) mmol/L BUN 44 H (7-17) mg/dL Creatinine 1.71 H (0.52-1.04) mg/dL POC Glucose (mg/dL) 132 H (70-110) mg/dL Calcium 7.4 L (8.4-10.2) mg/dL Microbiology - Last 24 Hours (Table) 09/27/22 18:30 Urine Culture - Preliminary Urine,Voided Gram Neg Bacilli 09/27/22 13:30 Blood Culture - Preliminary Blood Assessment and Plan Assessment: -Acute urinary tract infection with right pyelonephritis Acute right hydronephrosis secondary to obstructing right calculus, status post cystoscopy and ureteral stent on 09/28 Acute kidney injury secondary to hypotension, present on admission -Elevated troponin, rule out cardiac causes Fall at home Chronic atrial fibrillation on xarelto at home History of asthma History of coronary artery disease status post stent Chronic heart failure History of CVA/TIA Diabetes mellitus Hypertension Hyperlipidemia History of osteoarthritis, with moderate to severe right neural foraminal stenosis at L5-S1 Hypothyroidism history of fibromyalgia History of DVT and pulmonary embolism Chronic kidney disease stage III Neuropathy History of depression Morbid obesity with BMI of 45.7 Plan: Continue intravenous hydration Nephrology consult, urology consult Continue with antibiotics Zosyn, infectious disease consult follow-up Hematology consult for increased metamyelocyte (from ED) Cardiology consult Labs and medication were reviewed.. Continue same treatment. Continue with symptomatic treatment. Resume home medication. Monitor labs and vitals. DVT and GI prophylaxis. Further recommendations as per clinical course of the patient DVT prophylaxis: xarelto GI Prophylaxis: Pepcid PT/OT: Pending Prognosis is guarded
--- NOTE | 2022-09-29 15:32 | P.PN ---
Subjective Progress Note Date: 09/29/22 Follow-up for acute kidney injury. Doing better. Urine output of 800 ML's in the last 24 hours. Objective - Vital Signs Vital signs: Vital Signs Temp 98.2 F 09/29/22 08:17 Pulse 83 09/29/22 15:26 Resp 18 09/29/22 15:26 BP 114/80 09/29/22 15:26 Pulse Ox 96 09/29/22 15:26 FiO2 Intake & Output 09/28/22 09/29/22 09/29/22 18:59 06:59 18:59 Intake Total 510 Output Total 360 500 700 Balance 150 -500 -700 Intake: IV 400 Oral 110 Output: Urine 360 500 700 Other: Voiding Method Indwelling Catheter Indwelling Catheter Indwelling Catheter # Bowel Movements 1 - Exam No acute distress S1-S2 heard Lungs clear Corbin Trace edema - Labs CBC & Chem 7: 09/29/22 08:32 09/29/22 06:48 Labs: Abnormal Lab Results - Last 24 Hours (Table) 09/28/22 09/28/22 09/29/22 Range/Units 16:17 20:07 05:53 WBC (3.8-10.6) k/uL Hgb (11.4-16.0) gm/dL Hct (34.0-46.0) % MCH (25.0-35.0) pg MCHC (31.0-37.0) g/dL RDW (11.5-15.5) % Plt Count (150-450) k/uL Neutrophils # (1.3-7.7) k/uL Lymphocytes # (1.0-4.8) k/uL Sodium (137-145) mmol/L BUN (7-17) mg/dL Creatinine (0.52-1.04) mg/dL POC Glucose (mg/dL) 181 H 118 H 111 H (70-110) mg/dL Calcium (8.4-10.2) mg/dL Iron (50-170) UG/DL % Saturation (12.00-45.00) Total Protein (PEP) (6.2-8.2) d/dL Albumin (PEP) (3.8-4.9) d/dL IgM (40.0-280.0) mg/dL 09/29/22 09/29/22 09/29/22 Range/Units 06:48 06:48 08:32 WBC 17.6 H (3.8-10.6) k/uL Hgb 9.8 L (11.4-16.0) gm/dL Hct 32.9 L (34.0-46.0) % MCH 24.5 L (25.0-35.0) pg MCHC 29.9 L (31.0-37.0) g/dL RDW 18.4 H (11.5-15.5) % Plt Count 114 L (150-450) k/uL Neutrophils # 15.6 H (1.3-7.7) k/uL Lymphocytes # 0.8 L (1.0-4.8) k/uL Sodium 134 L (137-145) mmol/L BUN 44 H (7-17) mg/dL Creatinine 1.71 H (0.52-1.04) mg/dL POC Glucose (mg/dL) (70-110) mg/dL Calcium 7.4 L (8.4-10.2) mg/dL Iron 13 L (50-170) UG/DL % Saturation 3.88 L (12.00-45.00) Total Protein (PEP) 5.3 L (6.2-8.2) d/dL Albumin (PEP) 2.9 L (3.8-4.9) d/dL IgM <35.0 L (40.0-280.0) mg/dL 09/29/22 Range/Units 11:34 WBC (3.8-10.6) k/uL Hgb (11.4-16.0) gm/dL Hct (34.0-46.0) % MCH (25.0-35.0) pg MCHC (31.0-37.0) g/dL RDW (11.5-15.5) % Plt Count (150-450) k/uL Neutrophils # (1.3-7.7) k/uL Lymphocytes # (1.0-4.8) k/uL Sodium (137-145) mmol/L BUN (7-17) mg/dL Creatinine (0.52-1.04) mg/dL POC Glucose (mg/dL) 132 H (70-110) mg/dL Calcium (8.4-10.2) mg/dL Iron (50-170) UG/DL % Saturation (12.00-45.00) Total Protein (PEP) (6.2-8.2) d/dL Albumin (PEP) (3.8-4.9) d/dL IgM (40.0-280.0) mg/dL Microbiology - Last 24 Hours (Table) 09/27/22 18:30 Urine Culture - Preliminary Urine,Voided Gram Neg Bacilli 09/27/22 13:30 Blood Culture - Preliminary Blood Assessment and Plan Assessment: #1 acute kidney injury multifactorial -Hemodynamic ATN with low blood pressures -Obstructive uropathy with right hydronephrosis from obstructing stone -Baseline creatinine 0.9 MG per DL -Urine analysis hematuria with pyuria #2 complicated UTI #3 right hydronephrosis obstructing stone #4 hypotensive episodes #5 hypovolemic hyponatremia #6 hyperkalemia better. Plan: #1 renal function improving. Continue with IV fluids #2 appreciate urology input #3 agree with holding lisinopril and nitrofurantoin for now. #4 daily labs.
[2022-09-29 16:39] LABS: Glucose,Whole Blood 87 mg/dL (70-110)
[2022-09-29] MEDS: RIVAROXABAN 20 MG TAB PO SCH (16:53)
[2022-09-29] MEDS: ACETAMINOPHEN TAB 500 MG TAB PO PRN (17:31)
[2022-09-29 20:17] LABS: Glucose,Whole Blood 167 mg/dL (70-110)
[2022-09-29] MEDS: MONTELUKAST 10 MG TAB PO SCH (20:30)
[2022-09-30] MEDS: PIPERACILLIN-TAZOBACTAM 3.375 GM in SODIUM CHLORIDE 0.9% 100 ML IVPB SCH ×4 (00:54→23:52)
[2022-09-30 06:12] LABS: Glucose,Whole Blood 86 mg/dL (70-110)
[2022-09-30] MEDS: INSULIN ASPART (NovoLOG) 100 UNIT/ML VIAL SQ SCH ×4 (06:26→21:19)
[2022-09-30] MEDS: LEVOTHYROXINE 125 MCG TAB PO SCH (06:28)
[2022-09-30] MEDS: SODIUM CHLORIDE 0.9% 1,000 ML IV SCH ×2 (06:28→21:20)
[2022-09-30] MEDS ORDERED: DOCUSATE 100 MG CAP PO PRN (07:38)
[2022-09-30 08:44] LABS: African American GFR (CKD) 49 (>60 ml/min/1.73 sqM); Anion Gap 7 mmol/L; Blood Urea Nitrogen 34 mg/dL (7-17); Calcium 7.7 mg/dL (8.4-10.2); Carbon Dioxide 20 mmol/L (22-30); Chloride 108 mmol/L (98-107); Glucose 74 mg/dL (74-99); Non-African American GFR(CKD) 42 (>60 ml/min/1.73 sqM); Potassium 4.7 mmol/L (3.5-5.1); Sodium 135 mmol/L (137-145)
[2022-09-30] MEDS: ATORVASTATIN 80 MG TAB PO SCH (08:52)
[2022-09-30] MEDS: METOPROLOL SUCCINATE (ER) 25 MG TAB.ER.24H PO SCH ×2 (08:52→21:19)
[2022-09-30] MEDS: DULoxetine HCL 30 MG CAPSULE.DR PO SCH ×2 (08:52→21:19)
[2022-09-30] MEDS: allopurinoL 100 MG TAB PO SCH (08:52)
[2022-09-30] MEDS: ASPIRIN 81 MG PO SCH (08:52)
[2022-09-30] MEDS: busPIRone HCl 10 MG TAB PO SCH ×2 (08:52→21:19)
[2022-09-30 09:14] LABS: Anisocytosis Slight; Basophils # (A) 0.1 k/uL (0-0.2); Basophils % (A) 1 %; Eosinophils # (A) 0.2 k/uL (0-0.7); Eosinophils % (A) 3 %; HCT 30.8 % (34.0-46.0); HGB 9.6 gm/dL (11.4-16.0); Hypochromasia Marked; Lymphocytes # (A) 1.1 k/uL (1.0-4.8); Lymphocytes % (A) 12 %; MCH 25.3 pg (25.0-35.0); MCHC 31.2 g/dL (31.0-37.0); Mean Platelet Volume 8.3; Microcytosis Slight; Monocytes # (A) 0.5 k/uL (0-1.0); Monocytes % (A) 5 %; Neutrophils # (A) 6.9 k/uL (1.3-7.7); Neutrophils % (A) 75 %; Platelet Count 113 k/uL (150-450); RBC 3.81 m/uL (3.80-5.40); RDW 18.3 % (11.5-15.5); WBC 9.2 k/uL (3.8-10.6)
--- NOTE | 2022-09-30 10:28 | P.PN ---
Subjective HISTORY OF PRESENT ILLNESS: This is 66-year-old female who follows in the office with Dr. Taylor. She has a history of coronary artery disease with previous stenting, congestive heart failure, hypertension, hyperlipidemia, atrial fibrillation, and previous ablation. She is admitted to the hospital secondary to urinary tract infection with sepsis, right ureteral stone, and acute renal failure. Patient examined this morning at the bedside. She currently denies chest pain or pressure. She reports mild shortness of breath. PHYSICAL EXAM: VITAL SIGNS: Reviewed. GENERAL: Well-developed in no acute distress. NECK: Supple. No JVD or thyromegaly LUNGS: Respirations even and unlabored. Lungs essentially clear to auscultation bilaterally. HEART: Regular rate and rhythm. S1 and S2 heard. EXTREMITIES: Normal range of motion. No clubbing or cyanosis. Peripheral pulses intact. No lower extremity edema ASSESSMENT: Urinary tract infection with sepsis Right ureteral stone with stent placement Acute renal failure, improving Non-STEMI Coronary artery disease with previous stenting Paroxysmal atrial fibrillation History of A. fib ablation Chronic congestive heart failure with unknown EF, echo pending Hypertension Hyperlipidemia PLAN: Continue current cardiac medications Continue anticoagulation with Xarelto 2-D echo has been ordered. Await results Consider angiogram when patient is medically stable Further recommendations pending patient's course Nurse practitioner note has been reviewed by physician. Signing provider agrees with the documented findings, assessment, and plan of care. Objective - Vital Signs Vital signs: Vital Signs Temp 98.2 F 09/30/22 08:49 Pulse 81 09/30/22 09:03 Resp 18 09/30/22 09:03 BP 112/74 09/30/22 08:49 Pulse Ox 94 L 09/30/22 09:59 FiO2 Intake & Output 09/29/22 09/30/22 09/30/22 18:59 06:59 18:59 Intake Total 240 110 Output Total 1000 450 Balance -1000 -210 110 Intake: Oral 240 110 Output: Urine 1000 450 Other: Voiding Method Indwelling Catheter Indwelling Catheter Indwelling Catheter # Bowel Movements 1 - Labs CBC & Chem 7: 09/30/22 07:13 09/30/22 07:13 Labs: Abnormal Lab Results - Last 24 Hours (Table) 09/29/22 09/29/22 09/29/22 Range/Units 06:48 06:48 08:32 WBC 17.6 H (3.8-10.6) k/uL Hgb 9.8 L (11.4-16.0) gm/dL Hct 32.9 L (34.0-46.0) % MCH 24.5 L (25.0-35.0) pg MCHC 29.9 L (31.0-37.0) g/dL RDW 18.4 H (11.5-15.5) % Plt Count 114 L (150-450) k/uL Neutrophils # 15.6 H (1.3-7.7) k/uL Lymphocytes # 0.8 L (1.0-4.8) k/uL Sodium (137-145) mmol/L Chloride (98-107) mmol/L Carbon Dioxide (22-30) mmol/L BUN (7-17) mg/dL Creatinine (0.52-1.04) mg/dL POC Glucose (mg/dL) (70-110) mg/dL Calcium (8.4-10.2) mg/dL Iron 13 L (50-170) UG/DL % Saturation 3.88 L (12.00-45.00) Total Protein (PEP) 5.3 L (6.2-8.2) d/dL Albumin (PEP) 2.9 L (3.8-4.9) d/dL IgM <35.0 L (40.0-280.0) mg/dL 09/29/22 09/29/22 09/30/22 Range/Units 11:34 20:16 07:13 WBC (3.8-10.6) k/uL Hgb (11.4-16.0) gm/dL Hct (34.0-46.0) % MCH (25.0-35.0) pg MCHC (31.0-37.0) g/dL RDW (11.5-15.5) % Plt Count (150-450) k/uL Neutrophils # (1.3-7.7) k/uL Lymphocytes # (1.0-4.8) k/uL Sodium 135 L (137-145) mmol/L Chloride 108 H (98-107) mmol/L Carbon Dioxide 20 L (22-30) mmol/L BUN 34 H (7-17) mg/dL Creatinine 1.31 H (0.52-1.04) mg/dL POC Glucose (mg/dL) 132 H 167 H (70-110) mg/dL Calcium 7.7 L (8.4-10.2) mg/dL Iron (50-170) UG/DL % Saturation (12.00-45.00) Total Protein (PEP) (6.2-8.2) d/dL Albumin (PEP) (3.8-4.9) d/dL IgM (40.0-280.0) mg/dL 09/30/22 Range/Units 07:13 WBC (3.8-10.6) k/uL Hgb 9.6 L (11.4-16.0) gm/dL Hct 30.8 L (34.0-46.0) % MCH (25.0-35.0) pg MCHC (31.0-37.0) g/dL RDW 18.3 H (11.5-15.5) % Plt Count 113 L (150-450) k/uL Neutrophils # (1.3-7.7) k/uL Lymphocytes # (1.0-4.8) k/uL Sodium (137-145) mmol/L Chloride (98-107) mmol/L Carbon Dioxide (22-30) mmol/L BUN (7-17) mg/dL Creatinine (0.52-1.04) mg/dL POC Glucose (mg/dL) (70-110) mg/dL Calcium (8.4-10.2) mg/dL Iron (50-170) UG/DL % Saturation (12.00-45.00) Total Protein (PEP) (6.2-8.2) d/dL Albumin (PEP) (3.8-4.9) d/dL IgM (40.0-280.0) mg/dL Microbiology - Last 24 Hours (Table) 09/27/22 13:30 Blood Culture - Preliminary Blood 09/27/22 18:30 Urine Culture - Preliminary Urine,Voided Gram Neg Bacilli
--- NOTE | 2022-09-30 10:47 | CA ---
Transthoracic Echo Report Name: Uma Oconnell Age: 66 Gender: F : 1955 Exam Date: 09/30/2022 07:59 Exam Location: [place] Echo Ht (in): 62 Wt (lb): 249 Ordering Physician: Zaheer Arrington Attending/Referring Phys: Rabbit Dresser Melanie Christie [facility] Procedure CPT: Indications: elevated trop Cardiac Hx: Technical Quality: Technically difficult study Contrast 1: [place] Total Dose (mL): 5 Contrast 2: Total Dose (mL): MEASUREMENTS (Male / Female) Normal Values 2D ECHO LV Diastolic Diameter PLAX 5.3 cm 4.2 - 5.9 / 3.9 - 5.3 cm LV Systolic Diameter PLAX 4.1 cm IVS Diastolic Thickness 0.8 cm 0.6 - 1.0 / 0.6 - 0.9 cm LVPW Diastolic Thickness 1.0 cm 0.6 - 1.0 / 0.6 - 0.9 cm LV Relative Wall Thickness 0.3 M-MODE Aortic Root Diameter MM 3.0 cm LA Systolic Diameter MM 4.2 cm LA Ao Ratio MM 1.4 AV Cusp Separation MM 1.9 cm DOPPLER AV Peak Velocity 184.8 cm/s AV Peak Gradient 13.7 mmHg AV Mean Velocity 120.3 cm/s AV Mean Gradient 6.7 mmHg AV Velocity Time Integral 36.6 cm LVOT Peak Velocity 96.5 cm/s LVOT Peak Gradient 3.7 mmHg LVOT Velocity Time Integral 19.3 cm Mitral E Point Velocity 103.5 cm/s Mitral A Point Velocity 90.7 cm/s Mitral E to A Ratio 1.1 MV Deceleration Time 171.3 ms LV E' Lateral Velocity 4.8 cm/s Mitral E to LV E' Lateral Ratio 21.7 LV E' Septal Velocity 3.8 cm/s Mitral E to LV E' Septal Ratio 27.3 TR Peak Velocity 299.9 cm/s TR Peak Gradient 36.0 mmHg Right Atrial Pressure 15.0 mmHg Pulmonary Artery Systolic Pressu 51.0 mmHg Right Ventricular Systolic Press 51.0 mmHg FINDINGS Left Ventricle Mild left ventricular dilatation. Left ventricular ejection fraction is estimated at 35-40 %. Moderately reduced global left ventricular systolic function. [place] hypokinetic. Hypokinetic lateral wall. Hypokinetic basal inferior wall. There is global decrease in contractility but more so in the mid to apical portions raising the possibility of apical ballooning syndrome. Right Ventricle Right ventricle not well visualized. Moderate pulmonary hypertension. Right Atrium Right atrium not well visualized. Left Atrium Mild left atrial dilatation. Mitral Valve Mild mitral annular calcification. Mild mitral regurgitation. Aortic Valve Aortic valve not well visualized. Tricuspid Valve Tricuspid valve not well visualized. Mild tricuspid regurgitation. Pulmonic Valve Pulmonic valve not well visualized. Pericardium Small pericardial effusion. Aorta Normal size aortic root. CONCLUSIONS Left ventricular upper limits of normal with hypokinesia involving the mid to apical portion of the left ventricle. Possibility of ischemic cardiomyopathy or apical ballooning syndrome to be considered. Mild mitral and tricuspid regurgitation. Moderate pulmonary hypertension. Possible small pericardial effusion Previewed by: Dr. Mere Fry MD (Electronically Signed) Final Date: 30 September 2022 10:46
[2022-09-30 11:25] LABS: Glucose,Whole Blood 145 mg/dL (70-110)
--- NOTE | 2022-09-30 11:31 | P.PN ---
Subjective This is a pleasant 66 years old female with multiple medical problems as below Atrial Fibrillation, Asthma, Coronary Artery Disease, Heart Failure, CVA/TIA, Diabetes Mellitus, Deep Vein Thrombosis , Fibromyalgia, Hyperlipidemia, Hypertension, Osteoarthritis (OA), Pulmonary Embolus (PE), hypothyroidism, constipation, chronic kidney disease stage III, neuropathy, depression Patient presents because of she fell at home without losing consciousness and feeling generally weak for the last 2 days. Patient could not get up after she fell After a fall she's been having more pain in her neck. Also she's been complaining of from some back pain for the last few days She is also complaining of from right-sided abdominal pain and bright: Pain most likely related to recent UTI,Pain is not specific on the right side mild to moderate in severity with no relieving or precipitating factors Patient is mildly tachycardic around 106 Blood pressure is borderline on admission 82/52 Osteopenia and extensive artifacts from patient very large body habitus limited evaluation. Hypertrophic facet arthropathy, moderate to severe right neural foraminal stenosis at L5-S1 and nephrolithiasis and hepatic steatosis CT of the brain: Age-related atrophy with no acute intracranial process. Cervical spine acute is negative for acute pathology Abdominal x-ray on 09/25: Unremarkable abdomen Abdominal ultrasound: Mild prominence of the pancreatic duct within the head of the pancreas, consider follow-up with ERCP. Nonobstructing right renal stones. Right renal cyst superior pole Urine analysis is suspicious for infection on Room emergency room ID team, hematology/oncology and nephrology was consulted Creatinine went up to 0.9 and 2.7. Was elevated. Liver enzymes mildly elevated with AST 59 and ALT 36 with normal bilirubin. Lipase is normal. Urine culture: Gram-negative 09/28/[address] of the abdomen and pelvis done yesterday showing obstructing calculus with right hydronephrosis, urology consulted, patient status post cystoscopy and retrograde urethrogram and placement of stent. Urine culture is growing Citrobacter frundii with sensitivity reviewed. Patient remains on Zosyn and IV vancomycin. Broadcalcitonin is more than 100 Cartilage team on the case for elevated troponin as he had chest pain last night, troponin around 7. [employer] and it aspirated and metoprolol and started. 09/29/2022 Patient today looks better today, her urinary symptoms improved after stent placement and creatinine is trending down [employer] on the case for elevated troponin and they recommended ischemic workup once infection is been controlled Discussed with the bedside nurse to resume xarelto at home dose once cleared by urologist Continue with Zosyn, normal saline 75 mL/h. Also patient on Toprol and statin added by clipping marker as well as baby aspirin 09/30/2022 Patient has very good appetite and eating well Infection is improving, pending urine culture while currently on Zosyn, status post right ureteral stent placement Also clipping marker recommended cardiac cath in view of cardiomyopathy with ejection fraction 35-40% with wall hypokinesia Objective - Vital Signs Vital signs: Vital Signs Temp 98.2 F 09/30/22 08:49 Pulse 81 09/30/22 09:03 Resp 18 09/30/22 09:03 BP 112/74 09/30/22 08:49 Pulse Ox 94 L 09/30/22 09:59 FiO2 Intake & Output 09/29/22 09/30/22 09/30/22 18:59 06:59 18:59 Intake Total 240 110 Output Total 1000 450 500 Balance -1000 -210 -390 Intake: Oral 240 110 Output: Urine 1000 450 500 Other: Voiding Method Indwelling Catheter Indwelling Catheter Indwelling Catheter # Bowel Movements 1 - Exam GENERAL: The patient is alert and oriented x3, not in any acute distress. Well developed, well nourished. HEENT: Pupils are round and equally reacting to light. EOMI. No scleral icterus. No conjunctival pallor. Normocephalic, atraumatic. No pharyngeal erythema. No thyromegaly. CARDIOVASCULAR: S1 and S2 present. No murmurs, rubs, or gallops. PULMONARY: Chest is clear to auscultation, no wheezing . no crackles. -ABDOMEN: Soft, right abdominal tenderness improving, nondistended, normoactive bowel sounds. No palpable organomegaly. MUSCULOSKELETAL: No joint swelling or deformity. EXTREMITIES: No cyanosis, clubbing, or pedal edema. NEUROLOGICAL: Gross neurological examination did not reveal any focal deficits. SKIN: No rashes. no petechiae. - Labs CBC & Chem 7: 09/30/22 07:13 09/30/22 07:13 Labs: Abnormal Lab Results - Last 24 Hours (Table) 09/29/22 09/29/22 09/29/22 Range/Units 06:48 06:48 11:34 Hgb (11.4-16.0) gm/dL Hct (34.0-46.0) % RDW (11.5-15.5) % Plt Count (150-450) k/uL Sodium (137-145) mmol/L Chloride (98-107) mmol/L Carbon Dioxide (22-30) mmol/L BUN (7-17) mg/dL Creatinine (0.52-1.04) mg/dL POC Glucose (mg/dL) 132 H (70-110) mg/dL Calcium (8.4-10.2) mg/dL Iron 13 L (50-170) UG/DL % Saturation 3.88 L (12.00-45.00) Total Protein (PEP) 5.3 L (6.2-8.2) d/dL Albumin (PEP) 2.9 L (3.8-4.9) d/dL IgM <35.0 L (40.0-280.0) mg/dL 09/29/22 09/30/22 09/30/22 Range/Units 20:16 07:13 07:13 Hgb 9.6 L (11.4-16.0) gm/dL Hct 30.8 L (34.0-46.0) % RDW 18.3 H (11.5-15.5) % Plt Count 113 L (150-450) k/uL Sodium 135 L (137-145) mmol/L Chloride 108 H (98-107) mmol/L Carbon Dioxide 20 L (22-30) mmol/L BUN 34 H (7-17) mg/dL Creatinine 1.31 H (0.52-1.04) mg/dL POC Glucose (mg/dL) 167 H (70-110) mg/dL Calcium 7.7 L (8.4-10.2) mg/dL Iron (50-170) UG/DL % Saturation (12.00-45.00) Total Protein (PEP) (6.2-8.2) d/dL Albumin (PEP) (3.8-4.9) d/dL IgM (40.0-280.0) mg/dL 09/30/22 Range/Units 11:23 Hgb (11.4-16.0) gm/dL Hct (34.0-46.0) % RDW (11.5-15.5) % Plt Count (150-450) k/uL Sodium (137-145) mmol/L Chloride (98-107) mmol/L Carbon Dioxide (22-30) mmol/L BUN (7-17) mg/dL Creatinine (0.52-1.04) mg/dL POC Glucose (mg/dL) 145 H (70-110) mg/dL Calcium (8.4-10.2) mg/dL Iron (50-170) UG/DL % Saturation (12.00-45.00) Total Protein (PEP) (6.2-8.2) d/dL Albumin (PEP) (3.8-4.9) d/dL IgM (40.0-280.0) mg/dL Microbiology - Last 24 Hours (Table) 09/27/22 13:30 Blood Culture - Preliminary Blood 09/27/22 18:30 Urine Culture - Preliminary Urine,Voided Gram Neg Bacilli Assessment and Plan Assessment: -Acute urinary tract infection with right pyelonephritis Acute right hydronephrosis secondary to obstructing right calculus, status post cystoscopy and ureteral stent on 09/28 Acute kidney injury secondary to hypotension, present on admission -Elevated troponin, rule out cardiac causes Fall at home Chronic atrial fibrillation on xarelto at home History of asthma History of coronary artery disease status post stent Chronic heart failure History of CVA/TIA Diabetes mellitus Hypertension Hyperlipidemia History of osteoarthritis, with moderate to severe right neural foraminal stenosis at L5-S1 Hypothyroidism history of fibromyalgia History of DVT and pulmonary embolism Chronic kidney disease stage III Neuropathy History of depression Morbid obesity with BMI of 45.7 Plan: Continue intravenous hydration Nephrology consult, urology consult Continue with antibiotics Zosyn, infectious disease consult follow-up Hematology consult for increased metamyelocyte (from ED) Cardiology consult Labs and medication were reviewed.. Continue same treatment. Continue with symptomatic treatment. Resume home medication. Monitor labs and vitals. DVT and GI prophylaxis. Further recommendations as per clinical course of the patient DVT prophylaxis: xarelto GI Prophylaxis: Pepcid PT/OT: Pending Prognosis is guarded
[2022-09-30 12:10] VITALS: BMI 45.7
--- NOTE | 2022-09-30 12:16 | P.PN ---
Subjective Progress Note Date: 09/30/22 No acute overnight events, having minimal flank pain. Urine culture is growing gram-negative bacilli Objective - Vital Signs Vital signs: Vital Signs Temp 98.2 F 09/30/22 08:49 Pulse 78 09/30/22 11:46 Resp 18 09/30/22 11:46 BP 105/71 09/30/22 11:46 Pulse Ox 96 09/30/22 11:46 FiO2 Intake & Output 09/29/22 09/30/22 09/30/22 18:59 06:59 18:59 Intake Total 240 110 Output Total 1000 450 500 Balance -1000 -210 -390 Weight 113.353 kg Intake: Oral 240 110 Output: Urine 1000 450 500 Other: Voiding Method Indwelling Catheter Indwelling Catheter Indwelling Catheter # Bowel Movements 1 - Psychiatric Psychiatric: Present: A&O x's 3 - Labs CBC & Chem 7: 09/30/22 07:13 09/30/22 07:13 Labs: Abnormal Lab Results - Last 24 Hours (Table) 09/29/22 09/29/22 09/29/22 Range/Units 06:48 06:48 20:16 Hgb (11.4-16.0) gm/dL Hct (34.0-46.0) % RDW (11.5-15.5) % Plt Count (150-450) k/uL Sodium (137-145) mmol/L Chloride (98-107) mmol/L Carbon Dioxide (22-30) mmol/L BUN (7-17) mg/dL Creatinine (0.52-1.04) mg/dL POC Glucose (mg/dL) 167 H (70-110) mg/dL Calcium (8.4-10.2) mg/dL Iron 13 L (50-170) UG/DL % Saturation 3.88 L (12.00-45.00) Total Protein (PEP) 5.3 L (6.2-8.2) d/dL Albumin (PEP) 2.9 L (3.8-4.9) d/dL IgM <35.0 L (40.0-280.0) mg/dL 09/30/22 09/30/22 09/30/22 Range/Units 07:13 07:13 11:23 Hgb 9.6 L (11.4-16.0) gm/dL Hct 30.8 L (34.0-46.0) % RDW 18.3 H (11.5-15.5) % Plt Count 113 L (150-450) k/uL Sodium 135 L (137-145) mmol/L Chloride 108 H (98-107) mmol/L Carbon Dioxide 20 L (22-30) mmol/L BUN 34 H (7-17) mg/dL Creatinine 1.31 H (0.52-1.04) mg/dL POC Glucose (mg/dL) 145 H (70-110) mg/dL Calcium 7.7 L (8.4-10.2) mg/dL Iron (50-170) UG/DL % Saturation (12.00-45.00) Total Protein (PEP) (6.2-8.2) d/dL Albumin (PEP) (3.8-4.9) d/dL IgM (40.0-280.0) mg/dL Microbiology - Last 24 Hours (Table) 09/27/22 13:30 Blood Culture - Preliminary Blood 09/27/22 18:30 Urine Culture - Preliminary Urine,Voided Gram Neg Bacilli Assessment and Plan Assessment: Status post right stent insertion, clinically patient is doing better. Having minimal flank pain. Urine cultures growing gram-negative bacilli -She can be discharged from urology standpoint point his cultures finalized -Corbin can be removed from urology standpoint -Follow-up as an outpatient with Dr. You 1-2 weeks
[2022-09-30 12:42] LABS: Free Kappa Lt Chain Qnt, Serum 4.23 mg/dL (0.33-1.94)
--- NOTE | 2022-09-30 13:37 | P.PN ---
Subjective Patient is seen for follow-up for acute kidney injury. Status post right ureteral stent placement for right hydronephrosis and obstructing calculus. Urine output has improved. Serum creatinine down to 1.3 mg/dL. No complaints today. Objective - Vital Signs Vital signs: Vital Signs Temp 98.2 F 09/30/22 08:49 Pulse 78 09/30/22 11:46 Resp 18 09/30/22 11:46 BP 105/71 09/30/22 11:46 Pulse Ox 96 09/30/22 11:46 FiO2 Intake & Output 09/29/22 09/30/22 09/30/22 18:59 06:59 18:59 Intake Total 240 220 Output Total 1000 450 500 Balance -1000 -210 -280 Weight 113.353 kg Intake: Oral 240 220 Output: Urine 1000 450 500 Other: Voiding Method Indwelling Catheter Indwelling Catheter Indwelling Catheter # Bowel Movements 1 - Exam Patient is awake, comfortable, no acute distress Examination of the heart S1 and S2 Examination of the lungs bilateral breath sounds are heard Abdomen is soft nontender obese Examination of lower extremity shows no evidence of edema [employer] exam grossly intact - Labs CBC & Chem 7: 09/30/22 07:13 09/30/22 07:13 Labs: Abnormal Lab Results - Last 24 Hours (Table) 09/29/22 09/29/22 09/29/22 Range/Units 06:48 06:48 20:16 Hgb (11.4-16.0) gm/dL Hct (34.0-46.0) % RDW (11.5-15.5) % Plt Count (150-450) k/uL Sodium (137-145) mmol/L Chloride (98-107) mmol/L Carbon Dioxide (22-30) mmol/L BUN (7-17) mg/dL Creatinine (0.52-1.04) mg/dL POC Glucose (mg/dL) 167 H (70-110) mg/dL Calcium (8.4-10.2) mg/dL Iron 13 L (50-170) UG/DL % Saturation 3.88 L (12.00-45.00) Total Protein (PEP) 5.3 L (6.2-8.2) d/dL Albumin (PEP) 2.9 L (3.8-4.9) d/dL IgM <35.0 L (40.0-280.0) mg/dL Free [place] LC, Quant 4.23 H (0.33-1.94) mg/dL 09/30/22 09/30/22 09/30/22 Range/Units 07:13 07:13 11:23 Hgb 9.6 L (11.4-16.0) gm/dL Hct 30.8 L (34.0-46.0) % RDW 18.3 H (11.5-15.5) % Plt Count 113 L (150-450) k/uL Sodium 135 L (137-145) mmol/L Chloride 108 H (98-107) mmol/L Carbon Dioxide 20 L (22-30) mmol/L BUN 34 H (7-17) mg/dL Creatinine 1.31 H (0.52-1.04) mg/dL POC Glucose (mg/dL) 145 H (70-110) mg/dL Calcium 7.7 L (8.4-10.2) mg/dL Iron (50-170) UG/DL % Saturation (12.00-45.00) Total Protein (PEP) (6.2-8.2) d/dL Albumin (PEP) (3.8-4.9) d/dL IgM (40.0-280.0) mg/dL Free [place] LC, Quant (0.33-1.94) mg/dL Microbiology - Last 24 Hours (Table) 09/27/22 13:30 Blood Culture - Preliminary Blood 09/27/22 18:30 Urine Culture - Preliminary Urine,Voided Gram Neg Bacilli Assessment and Plan Assessment: 1. Acute kidney injury, multifactorial including hemodynamic ATN with low blood pressures and obstructive uropathy with right hydronephrosis from obstructive calculus. Renal function has improved with creatinine down to 1.3. [place] 2. Complicated UTI maintained on antibiotics 3. Right hydronephrosis with obstructive calculus status post right ureteral stent placement on 09/28/2022 4. Chronic A. fib maintained on xarelto 5. Hypothyroidism maintained on supplementation. Plan: Continue IV fluids Repeat labs in a.m. Continue with IV antibiotics
--- NOTE | 2022-09-30 14:06 | P.PN ---
Subjective Progress Note Date: 09/30/22 Principal diagnosis: Metamyelocytes, increased WBC, anemia and thrombocytopenia. In follow-up today patient reports that she has not gotten out of bed with physical therapy because she does not have her shoes, She has not walked without her shoes on in several years. Denies any acute pain, no bleeding. Tolerating her current medication regimen. She has not required a transfusion this admission. Objective - Vital Signs Vital signs: Vital Signs Temp 98.2 F 09/30/22 08:49 Pulse 78 09/30/22 11:46 Resp 18 09/30/22 11:46 BP 105/71 09/30/22 11:46 Pulse Ox 96 09/30/22 11:46 FiO2 Intake & Output 09/29/22 09/30/22 09/30/22 18:59 06:59 18:59 Intake Total 240 220 Output Total 1000 450 500 Balance -1000 -210 -280 Weight 113.353 kg Intake: Oral 240 220 Output: Urine 1000 450 500 Other: Voiding Method Indwelling Catheter Indwelling Catheter Indwelling Catheter # Bowel Movements 1 - Constitutional General appearance: Present: cooperative, no acute distress, obese - EENT Eyes: Present: anicteric sclerae, EOMI ENT: Present: hearing grossly normal - Respiratory Details: Respirations even and unlabored at rest - Cardiovascular Heart sounds: normal: S1, S2 - Peripheral edema leg Peripheral Edema: bilateral: None - Integumentary Integumentary: Present: pale - Musculoskeletal Musculoskeletal: Present: generalized weakness - Psychiatric Psychiatric: Present: A&O x's 3, appropriate affect, intact judgment & insight - Labs CBC & Chem 7: 09/30/22 07:13 09/30/22 07:13 Labs: Abnormal Lab Results - Last 24 Hours (Table) 09/29/22 09/29/22 09/29/22 Range/Units 06:48 06:48 20:16 Hgb (11.4-16.0) gm/dL Hct (34.0-46.0) % RDW (11.5-15.5) % Plt Count (150-450) k/uL Sodium (137-145) mmol/L Chloride (98-107) mmol/L Carbon Dioxide (22-30) mmol/L BUN (7-17) mg/dL Creatinine (0.52-1.04) mg/dL POC Glucose (mg/dL) 167 H (70-110) mg/dL Calcium (8.4-10.2) mg/dL Iron 13 L (50-170) UG/DL % Saturation 3.88 L (12.00-45.00) Free [place] LC, Quant 4.23 H (0.33-1.94) mg/dL 09/30/22 09/30/22 09/30/22 Range/Units 07:13 07:13 11:23 Hgb 9.6 L (11.4-16.0) gm/dL Hct 30.8 L (34.0-46.0) % RDW 18.3 H (11.5-15.5) % Plt Count 113 L (150-450) k/uL Sodium 135 L (137-145) mmol/L Chloride 108 H (98-107) mmol/L Carbon Dioxide 20 L (22-30) mmol/L BUN 34 H (7-17) mg/dL Creatinine 1.31 H (0.52-1.04) mg/dL POC Glucose (mg/dL) 145 H (70-110) mg/dL Calcium 7.7 L (8.4-10.2) mg/dL Iron (50-170) UG/DL % Saturation (12.00-45.00) Free [place] LC, Quant (0.33-1.94) mg/dL Microbiology - Last 24 Hours (Table) 09/27/22 18:30 Urine Culture - Final Urine,Voided Citrobacter freundii 09/27/22 13:30 Blood Culture - Preliminary Blood Assessment and Plan (1) Leukocytosis Current Visit: Yes Status: Acute Priority: Medium Code(s): D72.829 - ELEVATED WHITE BLOOD CELL COUNT, UNSPECIFIED SNOMED Code(s): 183718867 (2) Anemia Current Visit: Yes Status: Acute Priority: Medium Code(s): D64.9 - ANEMIA, UNSPECIFIED SNOMED Code(s): 070144577 Plan: Anemia, thrombocytopenia, increased WBCs -Suspect her WBC left shift, including metamyelocytes, due to severe infection. WBC is normal today, no reported metamyelocytes -Workup so far, not showing any specific deficiencies, still pending ferritin level. -Patient has not required transfusion of PRBCs or platelets. Hemoglobin 9.6 and platelets 113,000 today. Her platelet count remains adequate for full dose anticoagulation if needed. -Pending flow cytometry to rule out bone marrow process -Continue to monitor CBC -Patient has been on antibiotics for UTI, doing well so far
[2022-09-30 16:24] LABS: Glucose,Whole Blood 82 mg/dL (70-110)
[2022-09-30 16:32] LABS: Gamma Globulin 0.74 d/dL (0.70-1.50)
[2022-09-30] MEDS: RIVAROXABAN 20 MG TAB PO SCH (16:57)
[2022-09-30 19:57] LABS: Glucose,Whole Blood 166 mg/dL (70-110)
--- NOTE | 2022-09-30 20:14 | P.PN ---
Subjective Progress Note Date: 09/29/22 Principal diagnosis: R sided pyelonephritis Patient is a 66-year female with multiple comorbidities including recurrent UTI presenting to the hospital with weakness and unable to do anything patient on presentation to the hospital have a low-grade fever significant elev ated white count positive UA concerning for symptomatic UTI patient did have a CT abdominal pelvis with evidence of right sided hydroureteronephrosis this patient is status post cystoscopy and right ureteral stent placement by urology on 09/28/2022. On today's evaluation that is 09/29/2022 the patient remains to be afebrile patient is breathing comfortably currently on 2 L nasal cannula oxygen , the patient denies any chest pain shortness of breath or cough abdominal pain decreased in intensity no nausea vomiting diarrhea Objective - Vital Signs Vital signs: Vital Signs Temp 98.2 F 09/29/22 08:17 Pulse 83 09/29/22 15:26 Resp 18 09/29/22 15:26 BP 114/80 09/29/22 15:26 Pulse Ox 96 09/29/22 15:26 FiO2 Intake & Output 09/28/22 09/29/22 09/29/22 18:59 06:59 18:59 Intake Total 510 Output Total 360 500 700 Balance 150 -500 -700 Intake: IV 400 Oral 110 Output: Urine 360 500 700 Other: Voiding Method Indwelling Catheter Indwelling Catheter Indwelling Catheter # Bowel Movements 1 - Exam GENERAL DESCRIPTION: Elderly female lying in bed in no distress RESPIRATORY SYSTEM: Unlabored breathing , decreased breath sounds at bases HEART: S1 S2 regular rate and rhythm ,no loud murmurs ABDOMEN: Soft , no tenderness EXTREMITIES: No edema feet - Labs CBC & Chem 7: 09/30/22 07:13 09/30/22 07:13 Labs: Abnormal Lab Results - Last 24 Hours (Table) 09/28/22 09/29/22 09/29/22 Range/Units 20:07 05:53 06:48 WBC (3.8-10.6) k/uL Hgb (11.4-16.0) gm/dL Hct (34.0-46.0) % MCH (25.0-35.0) pg MCHC (31.0-37.0) g/dL RDW (11.5-15.5) % Plt Count (150-450) k/uL Neutrophils # (1.3-7.7) k/uL Lymphocytes # (1.0-4.8) k/uL Sodium (137-145) mmol/L BUN (7-17) mg/dL Creatinine (0.52-1.04) mg/dL POC Glucose (mg/dL) 118 H 111 H (70-110) mg/dL Calcium (8.4-10.2) mg/dL Iron (50-170) UG/DL % Saturation (12.00-45.00) Total Protein (PEP) 5.3 L (6.2-8.2) d/dL Albumin (PEP) 2.9 L (3.8-4.9) d/dL IgM <35.0 L (40.0-280.0) mg/dL 09/29/22 09/29/22 09/29/22 Range/Units 06:48 08:32 11:34 WBC 17.6 H (3.8-10.6) k/uL Hgb 9.8 L (11.4-16.0) gm/dL Hct 32.9 L (34.0-46.0) % MCH 24.5 L (25.0-35.0) pg MCHC 29.9 L (31.0-37.0) g/dL RDW 18.4 H (11.5-15.5) % Plt Count 114 L (150-450) k/uL Neutrophils # 15.6 H (1.3-7.7) k/uL Lymphocytes # 0.8 L (1.0-4.8) k/uL Sodium 134 L (137-145) mmol/L BUN 44 H (7-17) mg/dL Creatinine 1.71 H (0.52-1.04) mg/dL POC Glucose (mg/dL) 132 H (70-110) mg/dL Calcium 7.4 L (8.4-10.2) mg/dL Iron 13 L (50-170) UG/DL % Saturation 3.88 L (12.00-45.00) Total Protein (PEP) (6.2-8.2) d/dL Albumin (PEP) (3.8-4.9) d/dL IgM (40.0-280.0) mg/dL Microbiology - Last 24 Hours (Table) 09/27/22 18:30 Urine Culture - Preliminary Urine,Voided Gram Neg Bacilli 09/27/22 13:30 Blood Culture - Preliminary Blood Assessment and Plan (1) Leukocytosis Current Visit: Yes Status: Acute Priority: Medium Code(s): D72.829 - ELEVATED WHITE BLOOD CELL COUNT, UNSPECIFIED SNOMED Code(s): 612023080 (2) UTI (urinary tract infection) Current Visit: No Status: Acute Code(s): N39.0 - URINARY TRACT INFECTION, SITE NOT SPECIFIED SNOMED Code(s): 80252571 Plan: 1patient presented hospital with sepsis in this patient who did have low-grade fever tachycardia elevated white count meeting criteria for SIRS. Likely he will agree however the patient also noticed to be slightly tender on the right lower abdominal area underlying abdominal source not entirely excluded. 2 CT of abdominal pelvis with oral contrast did shows right-sided hydroureteronephrosis in this patient status post otoscopy and ureteral stent placement. 3the patient is afebrile the white count is trending down, we will continue the patient on on Zosyn while waiting for the culture to finalize and continue supportive care Time with Patient: Less than 30
--- NOTE | 2022-09-30 20:15 | P.PN ---
Subjective Progress Note Date: 09/30/22 Principal diagnosis: R sided pyelonephritis Patient is a 66-year female with multiple comorbidities including recurrent UTI presenting to the hospital with weakness and unable to do anything patient on presentation to the hospital have a low-grade fever significant elev ated white count positive UA concerning for symptomatic UTI patient did have a CT abdominal pelvis with evidence of right sided hydroureteronephrosis this patient is status post cystoscopy and right ureteral stent placement by urology on 09/28/2022. On today's evaluation that is 09/30/2022 the patient denies any fever or any chills, patient is breathing comfortably currently on 2 L nasal cannula oxygen , the patient denies any chest pain shortness of breath or cough , he'll be complaining some mild right-sided abdominal pain which has decreased in intensity no nausea vomiting diarrhea Objective - Vital Signs Vital signs: Vital Signs Temp 98.2 F 09/30/22 08:49 Pulse 78 09/30/22 11:46 Resp 18 09/30/22 11:46 BP 105/71 09/30/22 11:46 Pulse Ox 96 09/30/22 11:46 FiO2 Intake & Output 09/29/22 09/30/22 09/30/22 18:59 06:59 18:59 Intake Total 240 110 Output Total 1000 450 500 Balance -1000 -210 -390 Weight 113.353 kg Intake: Oral 240 110 Output: Urine 1000 450 500 Other: Voiding Method Indwelling Catheter Indwelling Catheter Indwelling Catheter # Bowel Movements 1 - Exam GENERAL DESCRIPTION: Elderly female lying in bed in no distress RESPIRATORY SYSTEM: Unlabored breathing , decreased breath sounds at bases HEART: S1 S2 regular rate and rhythm ,no loud murmurs ABDOMEN: Soft , no tenderness EXTREMITIES: No edema feet - Labs CBC & Chem 7: 09/30/22 07:13 09/30/22 07:13 Labs: Abnormal Lab Results - Last 24 Hours (Table) 09/29/22 09/29/22 09/29/22 Range/Units 06:48 06:48 20:16 Hgb (11.4-16.0) gm/dL Hct (34.0-46.0) % RDW (11.5-15.5) % Plt Count (150-450) k/uL Sodium (137-145) mmol/L Chloride (98-107) mmol/L Carbon Dioxide (22-30) mmol/L BUN (7-17) mg/dL Creatinine (0.52-1.04) mg/dL POC Glucose (mg/dL) 167 H (70-110) mg/dL Calcium (8.4-10.2) mg/dL Iron 13 L (50-170) UG/DL % Saturation 3.88 L (12.00-45.00) Total Protein (PEP) 5.3 L (6.2-8.2) d/dL Albumin (PEP) 2.9 L (3.8-4.9) d/dL IgM <35.0 L (40.0-280.0) mg/dL 09/30/22 09/30/22 09/30/22 Range/Units 07:13 07:13 11:23 Hgb 9.6 L (11.4-16.0) gm/dL Hct 30.8 L (34.0-46.0) % RDW 18.3 H (11.5-15.5) % Plt Count 113 L (150-450) k/uL Sodium 135 L (137-145) mmol/L Chloride 108 H (98-107) mmol/L Carbon Dioxide 20 L (22-30) mmol/L BUN 34 H (7-17) mg/dL Creatinine 1.31 H (0.52-1.04) mg/dL POC Glucose (mg/dL) 145 H (70-110) mg/dL Calcium 7.7 L (8.4-10.2) mg/dL Iron (50-170) UG/DL % Saturation (12.00-45.00) Total Protein (PEP) (6.2-8.2) d/dL Albumin (PEP) (3.8-4.9) d/dL IgM (40.0-280.0) mg/dL Microbiology - Last 24 Hours (Table) 09/27/22 13:30 Blood Culture - Preliminary Blood 09/27/22 18:30 Urine Culture - Preliminary Urine,Voided Gram Neg Bacilli Assessment and Plan (1) Leukocytosis Current Visit: Yes Status: Acute Priority: Medium Code(s): D72.829 - ELEVATED WHITE BLOOD CELL COUNT, UNSPECIFIED SNOMED Code(s): 341314929 (2) UTI (urinary tract infection) Current Visit: No Status: Acute Code(s): N39.0 - URINARY TRACT INFECTION, SITE NOT SPECIFIED SNOMED Code(s): 66921859 Plan: 1patient presented hospital with sepsis in this patient who did have low-grade fever tachycardia elevated white count meeting criteria for SIRS. Likely he will agree however the patient also noticed to be slightly tender on the right lower abdominal area underlying abdominal source not entirely excluded. 2 CT of abdominal pelvis with oral contrast did shows right-sided hydrou reteronephrosis in this patient status post otoscopy and ureteral stent placement. 3the patient is afebrile the white count has normalized urinary showing gram- negative with ID sensitivities pending continue with the Zosyn while waiting for the culture finalized Time with Patient: Less than 30
[2022-09-30] MEDS: MONTELUKAST 10 MG TAB PO SCH (21:19)
[2022-10-01 06:14] LABS: Glucose,Whole Blood 88 mg/dL (70-110)
[2022-10-01] MEDS: INSULIN ASPART (NovoLOG) 100 UNIT/ML VIAL SQ SCH ×3 (06:17→16:44)
[2022-10-01] MEDS: LEVOTHYROXINE 125 MCG TAB PO SCH (06:19)
[2022-10-01 09:26] VITALS: TEMP 97.7
[2022-10-01] MEDS: PIPERACILLIN-TAZOBACTAM 3.375 GM in SODIUM CHLORIDE 0.9% 100 ML IVPB SCH ×2 (09:30→15:21)
[2022-10-01] MEDS: ASPIRIN 81 MG PO SCH (09:30)
[2022-10-01] MEDS: DULoxetine HCL 30 MG CAPSULE.DR PO SCH (09:30)
[2022-10-01] MEDS: METOPROLOL SUCCINATE (ER) 25 MG TAB.ER.24H PO SCH (09:31)
[2022-10-01] MEDS: busPIRone HCl 10 MG TAB PO SCH (09:31)
[2022-10-01] MEDS: ATORVASTATIN 80 MG TAB PO SCH (09:31)
[2022-10-01] MEDS: allopurinoL 100 MG TAB PO SCH (09:31)
[2022-10-01] MEDS: ACETAMINOPHEN TAB 500 MG TAB PO PRN (09:34)
--- NOTE | 2022-10-01 10:59 | P.PN ---
Subjective HISTORY OF PRESENT ILLNESS: This is 66-year-old female who follows in the office with Dr. Taylor. She has a history of coronary artery disease with previous stenting, congestive heart failure, hypertension, hyperlipidemia, atrial fibrillation, and previous ablation. She is admitted to the hospital secondary to urinary tract infection with sepsis, right ureteral stone, and acute renal failure. Patient examined this morning at the bedside. She currently denies chest pain or pressure. She reports mild shortness of breath. 10/01/2022 Patient examined this morning at the bedside. Patient denies chest pain or pressure. She reports mild SOB. She states she feels more comfortable this morning. echocardiogram completed revealing ejection fraction 35-40%, hypokinesis of apex, lateral wall, and basal inferior wall. possibility of apical ballooning syndrome, moderate pulmonary hypertension, mild TR and mild MR PHYSICAL EXAM: VITAL SIGNS: Reviewed. GENERAL: Well-developed in no acute distress. NECK: Supple. No JVD or thyromegaly LUNGS: Respirations even and unlabored. Lungs essentially clear to auscultation bilaterally. HEART: Regular rate and rhythm. S1 and S2 heard. EXTREMITIES: Normal range of motion. No clubbing or cyanosis. Peripheral pulses intact. No lower extremity edema ASSESSMENT: Urinary tract infection with sepsis Right ureteral stone with stent placement Acute renal failure, improving Non-STEMI Coronary artery disease with previous stenting Paroxysmal atrial fibrillation History of A. fib ablation Chronic congestive heart failure with reduced EF Hypertension Hyperlipidemia PLAN: Continue current cardiac medications Continue anticoagulation with Xarelto Resume ESTELA inhibitor when ZAINA is resolved Patient is currently stable from a cardiac standpoint Recommend medical management at this time for Non-STEMI. Patient will follow up outpatient for possible stress testing versus cardiac cath Further recommendations pending patient's course Nurse practitioner note has been reviewed by physician. Signing provider agrees with the documented findings, assessment, and plan of care. Objective - Vital Signs Vital signs: Vital Signs Temp 97.7 F 10/01/22 09:26 Pulse 71 10/01/22 09:26 Resp 17 10/01/22 09:26 BP 135/84 10/01/22 09:26 Pulse Ox 98 10/01/22 09:26 FiO2 Intake & Output 09/30/22 10/01/22 10/01/22 18:59 06:59 18:59 Intake Total 530 540 236 Output Total 1200 550 Balance -670 -10 236 Weight 113.353 kg Intake: Intake, IV Titration 200 Amount Piperacillin-Tazobactam 3 200 .375 gm In Sodium Chloride 0.9% 100 ml @ 25 mls/hr IVPB Q8HR [facility] Rx# :[id number] Oral 330 540 236 Output: Urine 1200 550 Other: Voiding Method Indwelling Catheter Indwelling Catheter Indwelling Catheter - Labs CBC & Chem 7: 09/30/22 07:13 09/30/22 07:13 Labs: Abnormal Lab Results - Last 24 Hours (Table) 09/29/22 09/30/22 09/30/22 Range/Units 06:48 11:23 19:54 POC Glucose (mg/dL) 145 H 166 H (70-110) mg/dL [id number] 0.54 H (0.10-0.40) d/dL Free [place] LC, Quant 4.23 H (0.33-1.94) mg/dL Microbiology - Last 24 Hours (Table) 09/27/22 13:30 Blood Culture - Preliminary Blood 09/27/22 18:30 Urine Culture - Final Urine,Voided Citrobacter freundii
[2022-10-01] MEDS: SODIUM CHLORIDE 0.9% 1,000 ML IV SCH (11:01)
[2022-10-01 11:28] VITALS: BP 131/84
--- NOTE | 2022-10-01 11:29 | P.PN ---
Subjective Patient is seen for follow-up for acute kidney injury. Status post right ureteral stent placement for right hydronephrosis and obstructing calculus. Urine output has improved. Serum creatinine down to 1.3 mg/dL. Complaining of pain in the back and legs. Objective - Vital Signs Vital signs: Vital Signs Temp 97.7 F 10/01/22 09:26 Pulse 69 10/01/22 11:27 Resp 15 10/01/22 11:27 BP 131/84 10/01/22 11:27 Pulse Ox 94 L 10/01/22 11:27 FiO2 Intake & Output 09/30/22 10/01/22 10/01/22 18:59 06:59 18:59 Intake Total 530 540 236 Output Total 1200 550 Balance -670 -10 236 Weight 113.353 kg Intake: Intake, IV Titration 200 Amount Piperacillin-Tazobactam 3 200 .375 gm In Sodium Chloride 0.9% 100 ml @ 25 mls/hr IVPB Q8HR [facility] Rx# :[id number] Oral 330 540 236 Output: Urine 1200 550 Other: Voiding Method Indwelling Catheter Indwelling Catheter Indwelling Catheter - Exam Patient is awake, comfortable, no acute distress Examination of the heart S1 and S2 Examination of the lungs bilateral breath sounds are heard Abdomen is soft nontender obese Examination of lower extremity shows no evidence of edema [employer] SCI[employer] exam grossly intact - Labs CBC & Chem 7: 09/30/22 07:13 09/30/22 07:13 Labs: Abnormal Lab Results - Last 24 Hours (Table) 09/29/22 09/30/22 Range/Units 06:48 19:54 POC Glucose (mg/dL) 166 H (70-110) mg/dL [id number] 0.54 H (0.10-0.40) d/dL Free [place] LC, Quant 4.23 H (0.33-1.94) mg/dL Microbiology - Last 24 Hours (Table) 09/27/22 13:30 Blood Culture - Preliminary Blood 09/27/22 18:30 Urine Culture - Final Urine,Voided Citrobacter freundii Assessment and Plan Assessment: 1. Acute kidney injury, multifactorial including hemodynamic ATN with low blood pressures and obstructive uropathy with right hydronephrosis from obstructive calculus. Renal function has improved with creatinine down to 1.3. 2. Complicated UTI maintained on antibiotics 3. Right hydronephrosis with obstructive calculus status post right ureteral stent placement on 09/28/2022 4. Chronic A. fib maintained on xarelto 5. Hypothyroidism maintained on supplementation. Plan: Decrease IV fluids and encourage increased oral intake Repeat labs in a.m.
[2022-10-01 11:46] LABS: Glucose,Whole Blood 128 mg/dL (70-110)
--- NOTE | 2022-10-01 11:52 | P.PN ---
Subjective Progress Note Date: 10/01/22 Principal diagnosis: R sided pyelonephritis Patient is a 66-year female with multiple comorbidities including recurrent UTI presenting to the hospital with weakness and unable to do anything patient on presentation to the hospital have a low-grade fever significant elev ated white count positive UA concerning for symptomatic UTI patient did have a CT abdominal pelvis with evidence of right sided hydroureteronephrosis this patient is status post cystoscopy and right ureteral stent placement by urology on 09/28/2022. On today's evaluation that is 10/01/2022 the patient remains to be afebrile, patient is breathing comfortably currently on 1 L nasal cannula oxygen , the patient denies any chest pain shortness of breath or couthe patient did have mild right-sided abdominal pain which has decreased in intensity no nausea vomiting diarrhea Objective - Vital Signs Vital signs: Vital Signs Temp 97.7 F 10/01/22 09:26 Pulse 71 10/01/22 09:26 Resp 17 10/01/22 09:26 BP 135/84 10/01/22 09:26 Pulse Ox 98 10/01/22 09:26 FiO2 Intake & Output 09/30/22 10/01/22 10/01/22 18:59 06:59 18:59 Intake Total 530 540 236 Output Total 1200 550 Balance -670 10 236 Weight 113.353 kg Intake: Intake, IV Titration 200 Amount Piperacillin-Tazobactam 3 200 .375 gm In Sodium Chloride 0.9% 100 ml @ 25 mls/hr IVPB Q8HR [facility] Rx# :[id number] Oral 330 540 236 Output: Urine 1200 550 Other: Voiding Method Indwelling Catheter Indwelling Catheter Indwelling Catheter - Exam GENERAL DESCRIPTION: Elderly female lying in bed in no distress RESPIRATORY SYSTEM: Unlabored breathing , decreased breath sounds at bases HEART: S1 S2 regular rate and rhythm ,no loud murmurs ABDOMEN: Soft , no tenderness EXTREMITIES: No edema feet - Labs CBC & Chem 7: 09/30/22 07:13 09/30/22 07:13 Labs: Abnormal Lab Results - Last 24 Hours (Table) 09/29/22 09/30/22 09/30/22 Range/Units 06:48 11:23 19:54 POC Glucose (mg/dL) 145 H 166 H (70-110) mg/dL Bzyih-3-Pzdnigxxi 0.54 H (0.10-0.40) d/dL Free [employer] LC, Quant 4.23 H (0.33-1.94) mg/dL Microbiology - Last 24 Hours (Table) 09/27/22 13:30 Blood Culture - Preliminary Blood 09/27/22 18:30 Urine Culture - Final Urine,Voided Citrobacter freundii Assessment and Plan (1) Leukocytosis Current Visit: Yes Status: Acute Priority: Medium Code(s): D72.829 - ELEVATED WHITE BLOOD CELL COUNT, UNSPECIFIED SNOMED Code(s): 831942904 (2) UTI (urinary tract infection) Current Visit: No Status: Acute Code(s): N39.0 - URINARY TRACT INFECTION, SITE NOT SPECIFIED SNOMED Code(s): 65173362 Plan: 1patient presented hospital with sepsis in this patient who did have low-grade fever tachycardia elevated white count meeting criteria for SIRS. Likely he will agree however the patient also noticed to be slightly tender on the right lower abdominal area underlying abdominal source not entirely excluded. 2 CT of abdominal pelvis with oral contrast did shows right-sided hydroure teronephrosis in this patient status post otoscopy and ureteral stent placement. 3the patient is afebrile the white count has normalized urinary did grew drug resistant Citrobacter, continue Zosyn will consider a 10 day course of cefepime 2 g every 8 hours on discharge to the assisted discussed with the admitting physician, drug interaction with cipro and Bactrim DS not a good choice keeping in mind his kidney function Time with Patient: Less than 30
--- NOTE | 2022-10-01 16:19 | CDI ---
Documentation Clarification Form Date: 10/01/2022 03:32:00 PM From: Kerri Butler RN, CCDS Admit Date: 09/28/2022 06:05:00 AM Patient Name: Uma Oconnell Visit Number: [id number] Discharge Date: ATTENTION: The Clinical Documentation Specialists (CDI) and [facility] Coding Staff appreciate your assistance in clarifying documentation. Please respond to the clarification below the line at the bottom and electronically sign. The CDI & [facility] Coding staff will review the response and follow-up if needed. Please note: Queries are made part of the Legal Health Record. If you have any questions, please contact the author of this message via ITS. Dr. Thorpe Sheet The patient has sepsis documented in the ID and Urology consult. Based on this information and the findings below, is there an additional diagnosis that is clinically appropriate for this patient? 09/27 ID: Patient present with sepsis in this patient who did have low-grade fever tachycardia, elevated white count meeting criteria for SIRS. 09/28 Urology consult: Right ureteral calculous with obstructive, pyonephrosis, UTI with sepsis. 09/30 Cardiology consult: UTI with sepsis, Non-STEMI, paroxysmal atrial fibrillation chronic congestive heart failure with unknown EF echo pending History/Risk Factors: UTI AFIB, DM, CHF CAD, CVA, Hyperlipidemia PE, VA CKD 3 Clinical Indicators: 66-year-old female present with fall, weakness for last 2 days. She is complaining of right-sided abdominal and back pain. 09/27 WBC 40.1, Neutrophils 36, 00, Na 133, BUN 38, Cr 2.7, Troponin 7.340, 7.890 Procalcitonin>100.00 Blood cultures: Pending 09/27 Urine culture: Citrobacter freundii 09/27 Vital signs: 95/37 106 18 99.3 95% RA, 82/52 105 22 95 % RA Treatment: Zosyn 3.375 GM IVBP Q 8 HRS 09/27-10/01 Vancomycin 1,750 MG Once PTD 09/27-09/28 (DC) .9NS 1,000 ML IV Bolus 09/27, 605ML IV Bolus 09/27 Is there an additional diagnosis that is clinically appropriate for this patient? [ ] Sepsis, present on admission [ ] Sepsis ruled out [ ] Severe Sepsis with septic shock with organ failure [ ] Other, please specify [ ] Unable to determine SIRS Criteria: 2 or more of the following may indicate SIRS Temperature < 96.8F (36C) or > 101.0F (38.3C) Heart Rate > 90 bpm Respiratory Rate > 20 breaths/min or PaCO2 < 32 mmHg White Blood Cell Count > 12,000 or < 4,000 cells/mm3 or > 10% bands (Template Last Reviewed: April 2022) Sepsis, present on admission, tachycardia and tachypnea and leukocytosis MTDD
--- NOTE | 2022-10-01 16:28 | P.DS ---
Providers Date of admission: 09/28/22 06:05 Attending physician: Maurilio Morrissey MD Consults: 09/27/22 12:46 Consult Physician Routine Consulting Provider: Ryne Pascual Consult Reason/Comments: thi Do you want consulting provider notified?: Yes 09/27/22 12:55 Consult Physician Routine Consulting Provider: Jason Olivo Consult Reason/Comments: leukocytosis, sirs Do you want consulting provider notified?: Yes 09/27/22 12:59 Consult Physician Routine Consulting Provider: Mark Pierre Consult Reason/Comments: metamyelocytes Do you want consulting provider notified?: Yes 09/27/22 18:09 Consult Physician Stat Consulting Provider: [facility] Consult Reason/Comments: Chest pain Do you want consulting provider notified?: Yes 09/27/22 22:12 Consult Physician Routine Consulting Provider: Edwar You Consult Reason/Comments: hydronephrosis , complicated UTI Do you want consulting provider notified?: Yes Primary care physician: [facility] Course: diagnoses: -Acute urinary tract infection with right pyelonephritis Acute right hydronephrosis secondary to obstructing right calculus, status post cystoscopy and ureteral stent on 09/28 Acute kidney injury secondary to hypotension, present on admission, improving -Elevated troponin, rule patient will require cardiac workup as an outpatient Fall at home Chronic atrial fibrillation on xarelto at home History of asthma History of coronary artery disease status post stent Chronic heart failure History of CVA/TIA Diabetes mellitus Hypertension Hyperlipidemia History of osteoarthritis, with moderate to severe right neural foraminal stenosis at L5-S1 Hypothyroidism history of fibromyalgia History of DVT and pulmonary embolism Chronic kidney disease stage III Neuropathy History of depression Morbid obesity with BMI of 45.7 Hospital course: This is a pleasant 66 years old female with multiple medical problems as below Atrial Fibrillation, Asthma, Coronary Artery Disease, Heart Failure, CVA/TIA, Diabetes Mellitus, Deep Vein Thrombosis , Fibromyalgia, Hyperlipidemia, Hypertension, Osteoarthritis (OA), Pulmonary Embolus (PE), hypothyroidism, constipation, chronic kidney disease stage III, neuropathy, depression Patient presents because of she fell at home without losing consciousness and feeling generally weak for the last 2 days. Patient could not get up after she fell After a fall she's been having more pain in her neck Period: Patient with known new weakness or numbness. Over the course of his speech. [place] patient was found to have acute urinary tract infection with right abdominal pain, workup showing acute kidney injury with pyelonephritis and right-sided hydronephrosis secondary to obstructing calculus status post cystoscopy and stent placement on 09/28. Patient tolerated procedure well, her abdominal pain significantly improved. Patient has good appetite. Patient has also on admission elevated troponin and 7.02 which could be related to her impaired kidney function home for outpatient and followed by sow farm manager. Patient does not have chest pain or dyspnea. Cardiology team recommended outpatient workup (stress test vs cardiac cath). Patient informed and she agrees stating she will follow up as recommended Patient treated with Zosyn per ID team, urine culture grew Citrobacter freundii .she will be discharged on 10 days of cefepime , midline placed prior to disch arge on The day of discharge she is fully awake and oriented, she denies significant abdominal pain. Denies that she has regular bowel movements. On discharge patient is fully awake and oriented, lying comfortable in bed, denies chest pain or dyspnea. She has a very mild right-sided abdominal pain which is significantly improved. No other new GI or neurological complaints. Patient has been cleared for discharge by executive vice president business development, infectious disease consult cardiology team and corn husker machine operator. Problems and management plan were discussed with the patient and he verbalized understanding and acceptance Patient was found stable and can be discharged [facility] for rehab in guarded prognosis however he needs follow-up as an outpatient. Patient was instructed to follow up with PCP within one week and patient agrees Patient was instructed to follow up with Dr. You as an outpatient 2 weeks, with corn husker machine operator Dr. pierre in 1-2 weeks and sow farm manager Dr. Rivera in one week. Patient verbalized understanding and states she will follow up Physical exam -Gen: patient is a AAOx3, no distress. Obese CVS: S1-S2, RRR, no murmur Lungs: B/L CTA, no wheezing Abdomen: soft, no distention, no tenderness, positive bowel sounds -Extremity: no leg edema or induration. midline in place Time spent more than 35 minutes Plan - Discharge Summary Discharge Rx Participant: No New Discharge Prescriptions: New RX: Docusate [Colace] 100 mg PO BID PRN cap PRN Reason: Constipation RX: INSULIN ASPART (NovoLOG) [NovoLOG (formulary)] 0 unit SQ ACHS each RX: Cefepime [Maxipime] 2 gm IVPB Q8H #30 injection RX: Aspirin 81 mg PO DAILY #30 tab RX: Atorvastatin [Lipitor] 80 mg PO DAILY tab RX: Metoprolol Succinate (ER) [Toprol XL] 25 mg PO BID tab Continue RX: Montelukast [Singulair] 10 mg PO HS RX: Rivaroxaban [Xarelto] 20 mg PO W/SUPPER RX: Acetaminophen Tab [Tylenol] 1,000 mg PO Q6H PRN PRN Reason: Pain RX: Levothyroxine Sodium [Synthroid] 125 mcg PO AC-BRKFST RX: Isosorbide Mononitrate ER [Imdur] 30 mg PO DAILY RX: Omeprazole [PriLOSEC] 20 mg PO AC-BRKFST RX: Loratadine [Claritin] 10 mg PO DAILY PRN PRN Reason: Allergy Symptoms RX: methocarbamoL [Robaxin] 500 mg PO TID PRN PRN Reason: Muscle Spasm RX: Rosuvastatin [Crestor] 20 mg PO HS RX: Nitroglycerin Sl Tabs [Nitrostat] 0.4 mg SL Q5M PRN PRN Reason: Chest Pain RX: allopurinoL 100 mg PO DAILY RX: busPIRone HCl [Buspar] 10 mg PO BID RX: DULoxetine HCL [Cymbalta] 30 mg PO BID RX: Menthol-Zinc Oxide Oint [Calmoseptine Ointment] 1 applic TOPICAL BID Discontinued RX: Metoprolol Succinate (ER) [Toprol XL] 100 mg PO DAILY Meloxicam [Mobic] 15 mg PO DAILY RX: Glimepiride [Amaryl] [facility] Nitrofurantoin Monohyd/M-Cryst [Macrobid] 100 mg PO Q12HR #20 cap lisinopriL [Zestril] 5 mg PO DAILY Nystatin 100,000 Unit/gm Powd [Mycostatin Powder] 1 applic TOPICAL TID Discharge Medication List RX: Montelukast [Singulair] 10 mg PO HS 08/28/17 [History] RX: Rivaroxaban [Xarelto] 20 mg PO W/SUPPER 05/03/20 [History] RX: Acetaminophen Tab [Tylenol] 1,000 mg PO Q6H PRN 05/22/21 [History] RX: Levothyroxine Sodium [Synthroid] 125 mcg PO AC-BRKFST 05/22/21 [History] RX: Loratadine [Claritin] 10 mg PO DAILY PRN 05/22/21 [History] RX: Rosuvastatin [Crestor] 20 mg PO HS 05/22/21 [History] RX: methocarbamoL [Robaxin] 500 mg PO TID PRN 05/22/21 [History] RX: Isosorbide Mononitrate ER [Imdur] 30 mg PO DAILY 12/04/21 [History] RX: Nitroglycerin Sl Tabs [Nitrostat] 0.4 mg SL Q5M PRN 12/04/21 [History] RX: DULoxetine HCL [Cymbalta] 30 mg PO BID 09/27/22 [History] RX: Menthol-Zinc Oxide Oint [Calmoseptine Ointment] 1 applic TOPICAL BID 09/27/22 [History] RX: Omeprazole [PriLOSEC] 20 mg PO -KFST 09/27/22 [History] RX: allopurinoL 100 mg PO DAILY 09/27/22 [History] RX: busPIRone HCl [Buspar] 10 mg PO BID 09/27/22 [History] RX: Aspirin 81 mg PO DAILY #30 tab 10/01/22 [Rx] RX: Atorvastatin [Lipitor] 80 mg PO DAILY tab 10/01/22 [Rx] RX: Cefepime [Maxipime] 2 gm IVPB Q8H #30 injection 10/01/22 [Rx] RX: Docusate [Colace] 100 mg PO BID PRN cap 10/01/22 [Rx] RX: INSULIN ASPART (NovoLOG) [NovoLOG (formulary)] 0 unit SQ ACHS each 10/01/22 [Rx] RX: Metoprolol Succinate (ER) [Toprol XL] 25 mg PO BID tab 10/01/22 [Rx] Follow up Appointment(s)/Referral(s): Pradeep Taylor MD [STAFF PHYSICIAN] - 1 Week (we recommend cardiac workup as an outpatient Patient will follow up outpatient for possible stress testing versus cardiac cath) Mark Pierre MD [STAFF PHYSICIAN] - 2 Weeks (blood disease dcotor) Lor Deluca MD [Primary Care Provider] - 1-2 days Edwar You MD [STAFF PHYSICIAN] - 2 Weeks (urologist ) Activity/Diet/Wound Care/Special Instructions: Patient will follow up outpatient for possible stress testing versus cardiac cath Heart healthy diet activity is restricted till you see your doctor We recommend to check your basic metabolic panel and complete blood count blood test in 1-3 days with your doctor
[2022-10-01 16:47] LABS: Glucose,Whole Blood 143 mg/dL (70-110)
[2022-10-01] MEDS: RIVAROXABAN 20 MG TAB PO SCH (16:52)
[2022-10-01 17:00] VITALS: PULSE 77; RESP 17
== END 2022-10-01 18:05 | DRG 853 ==
LOC: EC 09:15 → 5NMEDONC 12:46 → 3SCARD 18:02 → OBSVTOIN 09-28 06:05
PROVIDERS: ADMIT Internal Medicine; ATTEND Internal Medicine
PROC: 0T768DZ Dilation of Right Ureter with Intraluminal Device, Via Natural or Artificial Opening Endoscopic (ICD-10-PCS; principal; 2022-09-28 07:46)
DX: A41.9 Sepsis, unspecified organism (principal); I21.4 Non-ST elevation (NSTEMI) myocardial infarction; N17.0 Acute kidney failure with tubular necrosis; Z68.42 Body mass index [BMI] 45.0-49.9, adult; E87.1 Hypo-osmolality and hyponatremia; I13.0 Hypertensive heart and chronic kidney disease with heart failure and stage 1 through stage 4 chronic kidney disease, or unspecified chronic kidney disease; N13.6 Pyonephrosis; I50.22 Chronic systolic (congestive) heart failure; I42.9 Cardiomyopathy, unspecified; B96.89 Other specified bacterial agents as the cause of diseases classified elsewhere; D69.6 Thrombocytopenia, unspecified; E03.9 Hypothyroidism, unspecified; E11.22 Type 2 diabetes mellitus with diabetic chronic kidney disease; E11.40 Type 2 diabetes mellitus with diabetic neuropathy, unspecified; E66.01 Morbid (severe) obesity due to excess calories; E78.5 Hyperlipidemia, unspecified; E86.0 Dehydration; E86.1 Hypovolemia; E87.5 Hyperkalemia; F32.A Depression, unspecified; I25.10 Atherosclerotic heart disease of native coronary artery without angina pectoris; N18.30 Chronic kidney disease, stage 3 unspecified; M85.80 Other specified disorders of bone density and structure, unspecified site; M79.7 Fibromyalgia; M48.07 Spinal stenosis, lumbosacral region; D63.1 Anemia in chronic kidney disease; I48.0 Paroxysmal atrial fibrillation; E11.649 Type 2 diabetes mellitus with hypoglycemia without coma; W19.XXXA Unspecified fall, initial encounter; I25.2 Old myocardial infarction; Z86.718 Personal history of other venous thrombosis and embolism; Z86.73 Personal history of transient ischemic attack (TIA), and cerebral infarction without residual deficits; Z86.711 Personal history of pulmonary embolism; Z87.440 Personal history of urinary (tract) infections; Z87.442 Personal history of urinary calculi; Z79.899 Other long term (current) drug therapy; Z79.84 Long term (current) use of oral hypoglycemic drugs; Z79.1 Long term (current) use of non-steroidal anti-inflammatories (NSAID); Z79.01 Long term (current) use of anticoagulants; Z79.890 Hormone replacement therapy; Z90.49 Acquired absence of other specified parts of digestive tract; Z90.711 Acquired absence of uterus with remaining cervical stump; Z95.5 Presence of coronary angioplasty implant and graft; Y92.009 Unspecified place in unspecified non-institutional (private) residence as the place of occurrence of the external cause; Z91.040 Latex allergy status; Z87.891 Personal history of nicotine dependence
CPT/HCPCS: 36410; 36415; 70450; 71046; 72125; 72131; 74176; 74420; 76937; 80048; 80053; 81001; 82607; 82728; 82746; 83540; 83550; 83735; 83883; 84145; 84165; 84484; 85025; 86334; 87040; 87077; 87086; 87186; 93005; 93306; 94760; 96361; 96365; 96366; 96368; 99285

== ENCOUNTER 2022-11-27 05:54 | Day surgery (SDC) | payer MEDICARE ==
--- NOTE | 2022-11-26 12:22 | P.GSHP ---
History of Present Illness H&P Date: 11/26/22 Rose Oconnell is an extremely unhealthy, morbidly obese 66-year-old female with kidney stones. She has 2 stones in her right kidney. Ideally she would need a percutaneous nephrostolithotomy but due to her size I thought she would better tolerate to ureteroscopy. She has a 15 mm UPJ stone on the right and 38 mm right lower pole stones. She comes for removal of the UPJ stone on the right at least. The risks and complications of an outlined - Constitutional Constitutional: Denies chills, Denies fever - EENT Eyes: denies blurred vision, denies pain Ears, nose, mouth and throat: Denies headache, Denies sore throat - Cardiovascular Cardiovascular: Denies chest pain, Denies shortness of breath - Respiratory Respiratory: Denies cough, Denies 7 - Gastrointestinal Gastrointestinal: Denies abdominal pain, Denies diarrhea, Denies nausea, Denies vomiting - Genitourinary (Female) Genitourinary: Denies dysuria, Denies hematuria - Genitourinary (Male) Genitourinary: Denies dysuria, Denies hematuria - Musculoskeletal Musculoskeletal: Denies myalgias - Integumentary Integumentary: Denies pruritus, Denies rash - Neurological Neurological: Denies numbness, Denies weakness - Psychiatric Psychiatric: Denies anxiety, Denies depression - Endocrine Endocrine: Denies fatigue, Denies weight change Past Medical History Past Medical History: Atrial Fibrillation, Asthma, Coronary Artery Disease (CAD), Heart Failure, CVA/TIA, Diabetes Mellitus, Deep Vein Thrombosis (DVT), Fibromyalgia, Hyperlipidemia, Hypertension, Myocardial Infarction (LA), Osteoarthritis (OA), Pulmonary Embolus (PE), Skin Disorder, Thyroid Disorder Additional Past Medical History / Comment(s): frequent uti's,kidney stones,HEART MURMUR,cardiomyopathy,CHRONIC CONSTIPATION, ECZEMA,SINUS HEADACHES, HX ANEMIA, gout. stage III kidney disease stage 3,lower back pain, anemia,. 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.FEEt, weakness LT SIDE, ,stg three kidney disease,eye disorder fuchs corneal dystrophy. 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 CATARACT BLACK. WITH IMPLANTS. HEART CATH X 3 TOTAL 3 STENTS, lithotripsy,kidney stents-since removed. Past Anesthesia/Blood Transfusion Reactions: Motion Sickness Additional Past Anesthesia/Blood Transfusion Reaction / Comment(s): no hx blood transfusion Date of Last Stent Placement:: UNKNOWN Smoking Status: Former smoker - Past Family History Father Additional Family Medical History / Comment(s): "HARDENEING OF THE ARTERIES AT AGE 41. SMOKED AND DRANK ETOH Mother Family Medical History: Cancer Additional Family Medical History / Comment(s): "cyst that ruptured between bowel and bladder" Medications and Allergies Home Medications Medication Instructions Recorded Confirmed Type Montelukast [Singulair] 10 mg PO HS 08/28/17 11/19/22 History Rivaroxaban [Xarelto] 20 mg PO W/SUPPER 05/03/20 11/19/22 History Acetaminophen Tab [Tylenol] 1,000 mg PO Q6H PRN 05/22/21 11/19/22 History Levothyroxine Sodium [Synthroid] 125 mcg PO AC-BRKFST 05/22/21 11/19/22 History Loratadine [Claritin] 10 mg PO DAILY PRN 05/22/21 11/19/22 History methocarbamoL [Robaxin] 500 mg PO TID PRN 05/22/21 11/19/22 History Isosorbide Mononitrate ER [Imdur] 30 mg PO DAILY 12/04/21 11/19/22 History Nitroglycerin Sl Tabs [Nitrostat] 0.4 mg SL Q5M PRN 12/04/21 11/19/22 History DULoxetine HCL [Cymbalta] 30 mg PO BID 09/27/22 11/19/22 History Omeprazole [PriLOSEC] 20 mg PO AC-BRKFST 09/27/22 11/19/22 History allopurinoL 100 mg PO DAILY 09/27/22 11/19/22 History busPIRone HCl [Buspar] 10 mg PO BID 09/27/22 11/19/22 History Aspirin 81 mg PO DAILY #30 tab 10/01/22 11/19/22 Rx Atorvastatin [Lipitor] 80 mg PO DAILY tab 10/01/22 11/19/22 Rx Docusate [Colace] 100 mg PO BID PRN cap 10/01/22 11/19/22 Rx INSULIN ASPART (NovoLOG) [NovoLOG 0 unit SQ ACHS each 10/01/22 11/19/22 Rx (formulary)] Metoprolol Succinate (ER) [Toprol 25 mg PO BID tab 10/01/22 11/19/22 Rx XL] Lactulose 20 gm PO DAILY PRN 11/19/22 11/19/22 History Melatonin 5 mg PO HS PRN 11/19/22 11/19/22 History Nitrofurantoin Monohyd/M-Cryst 100 mg PO Q12HR 11/19/22 11/19/22 History [Macrobid] Sennosides/Docusate Sodium [Senna 1 each PO DAILY PRN 11/19/22 11/19/22 History Plus 8.6-50 mg Softgel] Allergies Allergy/AdvReac Type Severity Reaction Status Date / Time grass pollen Allergy Sinus Verified 11/19/22 15:40 latex Allergy Rash/Hives Verified 11/19/22 15:40 mold Allergy Sinus Verified 11/19/22 15:40 pollen extracts Allergy Sinus Verified 11/19/22 15:40 tree and shrub pollen Allergy Sinus Verified 11/19/22 15:40 Tetracyclines AdvReac YEAST Verified 11/19/22 15:40 INFECTION- PREFERS NOT TO TAKE ENVIRONMENTAL ALLERGIES Allergy SINUS Uncoded 11/19/22 15:40 SYMPTOMS-GRASS TREES,DUST,POLLENS,MOLD Surgical - Exam - General obese - Eyes normal ocular movement, no icteric - ENT no hearing loss, no congestion - Neck no masses, trachea midline - Respiratory normal respiratory effort, clear to auscultation - Abdomen Abdomen: soft, non tender, no guarding, no rigid, no rebound - Integumentary no rash, no abnormal pigmentation - Neurologic no disoriented, no combative - Musculoskeletal wheel chair bound - Psychiatric oriented to time, oriented to person, oriented to place, speech is normal, memory intact Results - Imaging CT scan - abdomen: report reviewed, image reviewed CT scan - pelvis: report reviewed, image reviewed Assessment and Plan Assessment: Impression: right ureteral and renal stones Plan Right ureteroscopy with laser lithotripsy and probable right ureteral stent.
[~2022-11-27 05:54] MED LIST changes: +AMPICILLIN 1,000 MG in SODIUM CHLORIDE 0.9% 50 ML IVPB PRN; -DEXAMETHASONE SOD PHOSPHATE 10 MG/ML 1 ML VIAL IV ONE; +DEXAMETHASONE SOD PHOSPHATE 4 MG/ML 1 ML VIAL IV ONE; +GENTAMICIN 110 MG in SODIUM CHLORIDE 0.9% 100 ML IVPB PRN; -GENTAMICIN 120 MG in SODIUM CHLORIDE 0.9% 100 ML IVPB ONE; -HYDROmorphone 0.5 MG/0.5 ML SYRINGE IVP PRN; -LIDOCAINE 1% 20 ML VIAL (10MG/ML) FOR IV START INTRADERMA PRN; -MIDAZOLAM 2 MG/2 ML VIAL IV PRN; -SCOPOLAMINE 1.5MG/72HR PATCH TRANSDERM ONE
[2022-11-27] MEDS ORDERED: HYDROmorphone 0.5 MG/0.5 ML SYRINGE IVP PRN (07:00)
--- NOTE | 2022-11-27 07:44 | XR ---
EXAMINATION TYPE: XR KUB DATE OF EXAM: 11/27/2022 COMPARISON: 01/28/2018 INDICATION: Presurgical evaluation TECHNIQUE: Single view abdomen FINDINGS: There is a normal bowel gas pattern. There is mild fecal retention Psoas margins are normal. No organomegaly is present. Right ureteral stent is present. The pigtail right renal collecting system appears to surround a calc ification. IMPRESSION: 1. 1 cm right renal stone.
[2022-11-27 07:45] LABS: Glucose,Whole Blood 194 mg/dL (70-110)
[2022-11-27] MEDS ORDERED: MIDAZOLAM 2 MG/2 ML VIAL ONE (08:05)
[2022-11-27] MEDS ORDERED: fentaNYL (PF) 50 MCG/ML 2 ML AMP ONE (08:05)
[2022-11-27] MEDS ORDERED: ROCURONIUM 10 MG/ML (5 ML VIAL) IV ONE (08:05)
[2022-11-27] MEDS ORDERED: PROPOFOL 10 MG/ML 20 ML VIAL IV ONE (08:05)
[2022-11-27] MEDS ORDERED: PHENYLEPHRINE-0.9% NACL SYG 1,000 MCG/10 ML SYRINGE ONE (08:05)
--- NOTE | 2022-11-27 09:12 | P.OP ---
Date of Procedure: 11/27/22 Preoperative Diagnosis: Right renal stones, infected Postoperative Diagnosis: Same Procedure(s) Performed: Cystoscopy, removal double-J catheter right, right ureteroscopy, replacement of double-J catheter right Anesthesia: PJ Surgeon: Edwar You Pathology: none sent Condition: stable Disposition: PACU Indications for Procedure: The patient is a very unhealthy morbidly obese 66-year-old [facility] patient with 2 right renal stones. She had a stent placed for obstruction to relieve urinary tract infection with sepsis and pyelonephrosis. Due to her severe obesity and poor health I elected to do a right ureteroscopy feeling that would require to ureteroscopy to remove the stones. She comes for this procedure. Description of Procedure: The patient is brought to the operating suite. She had a difficult IV access required a central line. She's placed on the operating table and given a general anesthetic. She's placed in lithotomy position with a sterile prep and drape. Cystoscopy with a Foroblique lens and 22-Burkinan sheath identifies chronic inflammation in the bladder right double-J catheter. The catheters pulled to the urethral meatus and I attempted to pass an 035 wire through the catheter but there is obstruction due to stone material in the stent. The stent is removed and I fortunately I'm able to pass an 035 wire up the right ureteral orifice into the kidney. Over the wires passed a 78-53-Lrezrt reentry sheath. The inner sheath was removed. I passed the flexible ureteroscope up into the kidney. The stones are seen but there is a significant amount of edema and persistent bleeding. Due to that I'm unable to adequately get my laser probe up to the stone without occluding the radiation flow such that I can safely see the stone to place a laser probe on it. I attempted to do this for over half an hour but I cannot adequately see the stone to do safe ureteroscopy. I then reintroduced and 035 wire up into the right kidney. I removed the working sheath and over the wires passed a new 6 x 24 double-J catheter that coils in the renal pelvis right and in the bladder. Bladder is drained the patient is awakened and returned recovery room good condition. She'll be discharged home upon recovery and follow in the office in one week. We will have to discuss treatment options as her situation is very challenging due to her poor health or requirement for anticoagulation her morbid obesity. I will discuss with her referral to a [facility] to see if they have an alternative option to remove the stones more safely.
--- NOTE | 2022-11-27 09:49 | FL ---
Fluoroscopy INDICATION: Pain FINDINGS: Fluoroscopy time: 39 seconds. Total dose area product (DAP) in uGy*m?, mGy*cm? (or similar): 5.9 Images obtained: 2. IMPRESSIONS: 1. Documentation of fluoroscopy.
[2022-11-27 09:58] VITALS: TEMP 97
[2022-11-27] MEDS ORDERED: KETOROLAC 15 MG/ML 1 ML VIAL IVP ONE (10:45)
--- NOTE | 2022-11-27 10:45 | XR ---
EXAMINATION TYPE: XR chest 1V portable DATE OF EXAM: 11/27/2022 COMPARISON: 09/27/2022 INDICATION: Line placement TECHNIQUE: Single frontal view of the chest is obtained. FINDINGS: The heart size is enlarged. The pulmonary vasculature is normal. Mild left lower lobe infiltrate is present. Endotracheal tube tip is above the leela. Left central venous catheter is present with the tip in th e region of the superior vena cava. No pneumothorax. There may be some minimal atelectasis at the rig ht lung base and costophrenic angle. IMPRESSION: 1. Left lower lobe infiltrate. Correlate for atelectasis or pneumonia. 2. Lines and catheters discussed above. 3. Cardiomegaly.
[2022-11-27 11:01] LABS: Glucose,Whole Blood 180 mg/dL (70-110)
--- NOTE | 2022-11-27 11:59 | P.ANPRN ---
Procedure Note - Anesthesia - Invasive Line Left Central Line Time Out Performed: Yes Date of Procedure: 11/27/22 Location of Patient: PreOp Preparation: Sterile Prep, Sterile Dressing Central Line Location: Internal Jugular Ultrasound Used: Yes Purpose - Visualization and Identification of Vasculature: Yes Image Stored and Saved: Yes Narrative: Central line placement per sterile protocol utilized.
[2022-11-27 12:28] VITALS: BP 100/82; PULSE 74; RESP 16
== END 2022-11-27 13:20 | disposition home or self-care (01) ==
LOC: OR 05:54
PROVIDERS: ATTEND Urology
DX: N20.0 Calculus of kidney (principal); I48.91 Unspecified atrial fibrillation; I11.0 Hypertensive heart disease with heart failure; I25.10 Atherosclerotic heart disease of native coronary artery without angina pectoris; J45.909 Unspecified asthma, uncomplicated; E11.9 Type 2 diabetes mellitus without complications; E78.5 Hyperlipidemia, unspecified; I25.2 Old myocardial infarction; E11.22 Type 2 diabetes mellitus with diabetic chronic kidney disease; Z86.711 Personal history of pulmonary embolism; Z86.73 Personal history of transient ischemic attack (TIA), and cerebral infarction without residual deficits; Z90.49 Acquired absence of other specified parts of digestive tract; Z79.899 Other long term (current) drug therapy; Z87.891 Personal history of nicotine dependence; Z79.82 Long term (current) use of aspirin; I50.9 Heart failure, unspecified
CPT/HCPCS: 94002; 71045; 74018; 52332; C2625; C1769; C1894; J2250; J2405; J3010; J1580; J0290; J1885; J2704; J2371

== ENCOUNTER 2022-12-27 21:32 | Inpatient (IN) | payer MEDICARE ==
[2022-12-27] MEDS ORDERED: IPRATROPIUM-ALBUTEROL 3 ML NEB INHALATION STA (21:43)
[2022-12-27] MEDS ORDERED: ONDANSETRON 4 MG/2 ML VIAL IVP STA (21:44)
[2022-12-27 21:45] LABS: Glucose,Whole Blood 223 mg/dL (70-110)
[2022-12-27] MEDS ORDERED: VANCOMYCIN IV PER PHARMACY 1 EACH MISC MISCELLANE PRN (21:48)
[2022-12-27] MEDS ORDERED: PIPERACILLIN-TAZOBACTAM 3.375 GM in SODIUM CHLORIDE 0.9% 100 ML IVPB STA (21:52)
[2022-12-27] MEDS ORDERED: VANCOMYCIN 2,250 MG in SODIUM CHLORIDE 0.9% 500 ML 500 ML IVPB STA (21:54)
--- NOTE | 2022-12-27 22:00 | XR ---
EXAMINATION: XR chest 1V portable DATE AND TIME: 12/27/2022 9:50 PM CLINICAL INDICATION: PHH; dyspnea Distal: Post cardiac arrest TECHNIQUE: AP upright portable COMPARISON: 11/27/2022 AP supine portable FINDINGS: EKG leads. There there are markedly prominent ill-defined consolidative opacities throughout the upper, mid, and lower lung zones bilaterally, in a pattern suggesting alveolar phase pulmonary edema, presumably car diogenic given the markedly-enlarged cardiac silhouette. The main differential diagnostic considerati on for the lung parenchyma pattern would be multifocal bronchopneumonia. No pneumothorax or other abnormal gas collection. No large pleural effusion. No acute skeletal or soft tissue findings are evident IMPRESSION: Post cardiac arrest radiograph.
[2022-12-27 22:07] LABS: ALT 48 U/L (4-34); AST 107 U/L (14-36); African American GFR (CKD) 69 (>60 ml/min/1.73 sqM); Albumin 3.4 g/dL (3.5-5.0); Alkaline Phosphatase 119 U/L (38-126); Anion Gap 7 mmol/L; Blood Urea Nitrogen 17 mg/dL (7-17); Calcium 8.3 mg/dL (8.4-10.2); Carbon Dioxide 30 mmol/L (22-30); Chloride 101 mmol/L (98-107); Glucose 202 mg/dL (74-99); Magnesium 1.9 mg/dL (1.6-2.3); Non-African American GFR(CKD) 60 (>60 ml/min/1.73 sqM); Potassium 4.4 mmol/L (3.5-5.1); Sodium 138 mmol/L (137-145); Total Bilirubin 0.4 mg/dL (0.2-1.3); Total Protein 6.6 g/dL (6.3-8.2)
[2022-12-27 22:13] LABS: Anisocytosis Slight; Basophils # (A) 0.1 k/uL (0-0.2); Basophils % (A) 1 %; Eosinophils # (A) 0.5 k/uL (0-0.7); Eosinophils % (A) 5 %; HCT 32.2 % (34.0-46.0); HGB 9.6 gm/dL (11.4-16.0); Hypochromasia Marked; Lymphocytes # (A) 3.3 k/uL (1.0-4.8); Lymphocytes % (A) 28 %; MCH 24.7 pg (25.0-35.0); MCHC 29.9 g/dL (31.0-37.0); MCV 82.7 fL (80.0-100.0); Mean Platelet Volume 7.5; Microcytosis Slight; Monocytes # (A) 0.7 k/uL (0-1.0); Monocytes % (A) 6 %; Neutrophils # (A) 6.8 k/uL (1.3-7.7); Neutrophils % (A) 59 %; Platelet Count 234 k/uL (150-450); Poikilocytosis Slight; RDW 18.6 % (11.5-15.5); WBC 11.6 k/uL (3.8-10.6)
[2022-12-27 22:15] LABS: NT-Pro-B-Type Natriuretic Pept 926 pg/mL
[2022-12-27 22:15] LABS: ABG PH 7.28 (7.35-7.45); Allen Test Performed? Yes
[2022-12-27 22:16] LABS: ABG PCO2 67 mmHg (35-45); ABG PO2 100 mmHg (83-108)
[2022-12-27] MEDS ORDERED: FUROSEMIDE 10 MG/ML 4 ML VIAL IV STA (22:16)
[2022-12-27 22:17] LABS: Prothrombin Time 10.5 sec (9.0-12.0)
[2022-12-27 22:22] LABS: Partial Thromboplastin Time 19.8 sec (22.0-30.0)
--- NOTE | 2022-12-27 22:56 | CT ---
EXAM: CT Head Without Intravenous Contrast CLINICAL HISTORY: ITS.REASON CT Reason: dyspnea TECHNIQUE: Axial computed tomography images of the head/brain without intravenous contrast. CTDI is 71.5 mGy and DLP is 1875 mGy-cm. This CT exam was performed using one or more of the following dose reduction techniques: automated exposure control, adjustment of the mA and/or kV according to patient size, and/or use of iterative reconstruction technique. COMPARISON: No relevant prior studies available. FINDINGS: Brain: Mild periventricular white matter changes, likely related to microangiopathy. No hemorrhage. Ventricles: Unremarkable. No ventriculomegaly. Bones/joints: Unremarkable. No acute fracture. Soft tissues: Unremarkable. Sinuses: Near complete opacification of bilateral sphenoid sinuses. Mastoid air cells: Unremarkable as visualized. No mastoid effusion. IMPRESSION: Mild periventricular white matter changes, likely related to microangiopathy.
--- NOTE | 2022-12-27 23:06 | CT ---
EXAM: CT Angiography Chest With Intravenous Contrast CLINICAL HISTORY: ITS.REASON CT Reason: dyspnea TECHNIQUE: Axial computed tomographic angiography images of the chest with intravenous contrast. CTDI is 17.20 mGy and DLP is 3559.2 mGy-cm. This CT exam was performed using one or more of the following dose reduction techniques: automated exposure control, adjustment of the mA and/or kV according to patient size, and/or use of iterative reconstruction technique. MIP reconstructed images were created and reviewed. COMPARISON: No relevant prior studies available. FINDINGS: Pulmonary arteries: Suboptimal opacification of the pulmonary arteries limits evaluation for pulmonary emboli. Aorta: No acute findings. No thoracic aortic aneurysm. Lungs: Consolidation involving majority of the left lower lobe and to a lesser extent the right lower lobe. Peripheral consolidations within bilateral upper lungs. Findings are most concerning for an infectious etiology. Differential includes Covid pneumonia although the consolidations or more organized than typical. Cryptogenic organizing pneumonia would also be in the differential. Pleural space: Unremarkable. No significant effusion. No pneumothorax. Heart: Unremarkable. No cardiomegaly. No significant pericardial effusion. No evidence of RV dysfunction. Bones/joints: No acute fracture. No dislocation. Soft tissues: Unremarkable. Lymph nodes: Mild left axillary lymphadenopathy measuring up to 1.1 cm. IMPRESSION: 1. Suboptimal opacification of the pulmonary arteries limits evaluation for pulmonary emboli. 2. Consolidation involving majority of the left lower lobe and to a lesser extent the right lower lobe. Peripheral consolidations within bilateral upper lungs. Findings are most concerning for an infectious etiology. Differential includes Covid pneumonia although the consolidations or more organized than typical. Cryptogenic organizing pneumonia would also be in the differential. 3. Mild left axillary lymphadenopathy measuring up to 1.1 cm.
--- NOTE | 2022-12-27 23:11 | CT ---
EXAM: CT Abdomen and Pelvis With Intravenous Contrast CLINICAL HISTORY: ITS.REASON CT Reason: dyspnea TECHNIQUE: Axial computed tomography images of the abdomen and pelvis with intravenous contrast. CTDI is 55.3 mGy and DLP is 3024 mGy-cm. This CT exam was performed using one or more of the following dose reduction techniques: automated exposure control, adjustment of the mA and/or kV according to patient size, and/or use of iterative reconstruction technique. COMPARISON: 09/27/2022 FINDINGS: Lung bases: Unremarkable. No mass. No consolidation. ABDOMEN: Liver: Unremarkable. No mass. Gallbladder and bile ducts: Gallbladder has been removed. No ductal dilation. Pancreas: Unremarkable. No mass. No ductal dilation. Spleen: Unremarkable. No splenomegaly. Adrenals: Unremarkable. No mass. Kidneys and ureters: 4 cm simple cyst arising off the upper pole of the right kidney. No further workup is required. No hydronephrosis. Stomach and bowel: Unremarkable. No obstruction. No mucosal thickening. PELVIS: Appendix: No findings to suggest acute appendicitis. Bladder: Corbin catheter in position. Reproductive: Unremarkable as visualized. ABDOMEN and PELVIS: Intraperitoneal space: Unremarkable. No free air. No significant fluid collection. Bones/joints: No acute fracture. No dislocation. Soft tissues: Unremarkable. Vasculature: Unremarkable. No abdominal aortic aneurysm. Lymph nodes: Unremarkable. No enlarged lymph nodes. Tubes, lines and devices: Right ureteral stent in position. IMPRESSION: No acute findings in the abdomen or pelvis.
[2022-12-27 23:25] LABS: Appearance,Urine Cloudy (Clear); Bilirubin,Urine Negative (Negative); Blood,Urine Large (Negative); Color,Urine Light Red; Glucose,Urine (UA) Trace (Negative); Ketones,Urine Negative (Negative); Leukocyte Esterase,Urine Large (Negative); Nitrite,Urine Negative (Negative); PH, Urine 6.5 (5.0-8.0); Protein,Urine 2+ (Negative); RBC,Urine >182 /hpf (0-5); Specific Gravity,Urine 1.019 (1.001-1.035); Urobilinogen,Urine <2.0 mg/dL (<2.0); WBC,Urine 82 /hpf (0-5)
--- NOTE | 2022-12-27 23:32 | ED ---
General Adult HPI - General Chief complaint: Cardiac Arrest/CPR Stated complaint: Post cardiac arrest Time Seen by Provider: 12/27/22 21:42 Source: patient, EMS, taker off drying kiln, RN notes reviewed, old records reviewed Mode of arrival: EMS Limitations: altered mental status - History of Present Illness Initial comments: Patient is a 66-year-old female with past medical history remarkable for CHF, A. fib, PE on blood thinners, DVT, prior stroke, UTIs, anemia who presents from her nursing facility over concern for cardiac arrest. Apparently nursing staff at the facility were transferring her back to her bed for bedtime when she was unresponsive. They could not palpate a pulse and began CPR. The performed 3 rounds of CPR and obtained Rosc. Patient became more alert. Apparently no shocks were given. No medications given. Just 3 rounds of CPR. They called EMS who brought her here for further evaluation. Patient does not remember the incident but appears to be alert and oriented 2-3 at this time. She states she is having a hard time breathing. Denies any chest pain, abdominal pain, nausea, vomiting. Continues to reiterate she is having a hard time breathing. His no other acute complaints at this time. - Related Data Home Medications Medication Instructions Recorded Confirmed Montelukast [Singulair] 10 mg PO HS@209908/28/17 12/27/22 Acetaminophen Tab [Tylenol] 1,000 mg PO Q6H PRN 05/22/21 12/27/22 Levothyroxine Sodium [Synthroid] 125 mcg PO DAILY@0605/22/21 12/27/22 Loratadine [Claritin] 10 mg PO DAILY PRN 05/22/21 12/27/22 methocarbamoL [Robaxin] 500 mg PO TID PRN 05/22/21 12/27/22 Isosorbide Mononitrate ER [Imdur] 30 mg PO DAILY@0912/04/21 12/27/22 Nitroglycerin Sl Tabs [Nitrostat] 0.4 mg SL Q5M PRN 12/04/21 12/27/22 DULoxetine HCL [Cymbalta] 30 mg PO BID@0900,2100 09/27/22 12/27/22 Omeprazole [PriLOSEC] 20 mg PO DAILY@59909/27/22 12/27/22 allopurinoL 100 mg PO DAILY@09/23/23 09/22/23 busPIRone HCl [Buspar] 10 mg PO BID@899,209909/27/22 12/27/22 Lactulose 20 gm PO DAILY@89911/19/22 12/27/22 Melatonin 5 mg PO HS@209911/19/22 12/27/22 Sennosides/Docusate Sodium [Senna 2 tab PO HS@209911/19/22 12/27/22 Plus 8.6-50 mg Softgel] Aspirin 81 mg PO DAILY@89912/27/22 12/27/22 Atorvastatin [Lipitor] 80 mg PO HS@209912/27/22 12/27/22 Cefuroxime [Ceftin] 250 mg PO BID@899,209912/27/22 12/27/22 Cyanocobalamin [Vitamin B-12] 1,000 mcg PO DAILY@89912/27/22 12/27/22 INSULIN ASPART (NovoLOG) [NovoLOG See Protocol SQ ACHS@,,,12/27/22 12/27/22 (formulary)] Metoprolol Succinate (ER) [Toprol 50 mg PO DAILY@89912/27/22 12/27/22 Xl] Rivaroxaban [Xarelto] 10 mg PO DAILY@89912/27/22 12/27/22 Previous Rx's Medication Instructions Recorded Docusate [Colace] 100 mg PO BID PRN cap 10/01/22 Allergies Allergy/AdvReac Type Severity Reaction Status Date / Time grass pollen Allergy Sinus Verified 12/27/22 22:34 latex Allergy Rash/Hives Verified 12/27/22 22:34 mold Allergy Sinus Verified 12/27/22 22:34 pollen extracts Allergy Sinus Verified 12/27/22 22:34 tree and shrub pollen Allergy Sinus Verified 12/27/22 22:34 Tetracyclines AdvReac YEAST Verified 12/27/22 22:34 INFECTION- PREFERS NOT TO TAKE ENVIRONMENTAL ALLERGIES Allergy SINUS Uncoded 12/06/22 08:19 SYMPTOMS-GRASS TREES,DUST,POLLENS,MOLD Review of Systems ROS Statement: Those systems with pertinent positive or pertinent negative responses have been documented in the HPI. Review of Systems: CONST: Denies fever EYES: Denies blurry vision ENT: Denies nasal congestion C/V: Denies Chest pain RESP: Endorses shortness of breath GI: Denies abdominal pain : Denies dysuria SKIN: Denies rash. MSK: Denies joint pain. NEURO: Denies headache ROS Other: All systems not noted in ROS Statement are negative. Past Medical History Past Medical History: Atrial Fibrillation, Asthma, Coronary Artery Disease (CAD), Heart Failure, CVA/TIA, Diabetes Mellitus, Deep Vein Thrombosis (DVT), Fibromyalgia, Hyperlipidemia, Hypertension, Myocardial Infarction (ME), Osteoarthritis (OA), Pulmonary Embolus (PE), Skin Disorder, Thyroid Disorder Additional Past Medical History / Comment(s): frequent uti's,kidney stones,HEART MURMUR,cardiomyopathy,CHRONIC CONSTIPATION, ECZEMA,SINUS HEADACHES, HX ANEMIA, gout. stage III kidney disease stage 3,lower back pain. 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.FEEt, weakness LT SIDE, ,stg three kidney disease,eye disorder fuchs corneal dystrophy. 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 CATARACT BLACK. WITH IMPLANTS. HEART CATH X 3 TOTAL 3 STENTS, lithotripsy,kidney stents-since removed. Past Anesthesia/Blood Transfusion Reactions: Motion Sickness Additional Past Anesthesia/Blood Transfusion Reaction / Comment(s): no hx blood transfusion Date of Last Stent Placement:: UNKNOWN Past Psychological History: Depression Smoking Status: Former smoker - Past Family History Father Additional Family Medical History / Comment(s): "HARDENEING OF THE ARTERIES AT AGE 41. SMOKED AND DRANK ETOH Mother Family Medical History: Cancer Additional Family Medical History / Comment(s): "cyst that ruptured between bowel and bladder" General Exam Limitations: altered mental status Course Vital Signs 12/27/22 12/27/22 12/27/22 21:33 21:38 21:42 Temperature 98.4 F Pulse Rate 99 Respiratory 36 H 36 H Rate Blood Pressure 132/93 O2 Sat by Pulse 75 L 96 Oximetry Fraction of Inspired Oxygen (FIO2) 09/12/27/22 12/27/22 21:51 21:56 22:13 Temperature Pulse Rate 85 86 Respiratory Rate Blood Pressure O2 Sat by Pulse Oximetry Fraction of 100 85 Inspired Oxygen (FIO2) 12/27/22 12/27/22 12/28/22 22:38 23:00 00:33 Temperature Pulse Rate 84 85 73 Respiratory 16 19 19 Rate Blood Pressure 135/67 143/72 136/87 O2 Sat by Pulse 99 100 100 Oximetry Fraction of Inspired Oxygen (FIO2) Medical Decision Making - Medical Decision Making Was pt. sent in by a medical professional or institution (, PA, SUPERVISOR OF OPERATIONS, urgent care, hospital, or retirement...) When possible be specific @ -Sent from her nursing facility status post cardiac arrest obtaining Rosc Did you speak to anyone other than the patient for history (EMS, parent, family, police, friend...)? What history was obtained from this source @ -I spoke with EMS who provided most of the patient's history. Did you review nursing and triage notes (agree or disagree)? Why? @ -I reviewed and agree with nursing and triage notes Were old charts reviewed (outside hosp., previous admission, EMS record, old EKG, old radiological studies, urgent care reports/EKG's, retirement records)? Report findings @ -Old charts reviewed Differential Diagnosis (chest pain, altered mental status, abdominal pain women, abdominal pain men, vaginal bleeding, weakness, fever, dyspnea, syncope, headache, dizziness, GI bleed, back pain, seizure, CVA, palpatations, mental health, musculoskeletal)? @ -Differential Dyspnea: Coronary syndrome, arrhythmia, tamponade, asthma, COPD, pulmonary embolism, pneumonia, pneumothorax, pulmonary effusion, anaphylaxis, diabetic ketoacidosis, flailed chest, pulmonary contusion, diaphragmatic rupture, anemia, neuromuscul ar, this is not meant to be an all-inclusive list. EKG interpreted by me (3pts min.). @ -As above X-rays interpreted by me (1pt min.). @ -X-ray reveals bilateral pulmonary infiltrates, likely secondary to cardiac arrest versus possible pneumonia versus CHF CT interpreted by me (1pt min.). @ -CT brain reveals no obvious acute intracranial process. CT angiogram of the chest reveals no obvious pulmonary embolism. Patient does have findings concerning for bilateral pneumonia. CT abdomen and pelvis reveals no obvious acute intra-abdominal process. U/S interpreted by me (1pt. min.). @ -None done What testing was considered but not performed or refused? (CT, X-rays, U/S, labs)? Why? @ -None What meds were considered but not given or refused? Why? @ -Consider giving IV fluids over concern for possible infection and sepsis however patient also appears volume overloaded and differential still includes CHF. We'll continue to closely monitor IV fluids. We will administer as needed. Patient is not hypotensive. Did you discuss the management of the patient with other professionals (professionals i.e. DrLiu, PA, SUPERVISOR OF OPERATIONS, lab, RT, psych nurse, nephrology social worker, pump stitcher, teacher, tactical response group officer, insurance case manager)? Give summary @ -Discussed the case with Dr. Guevara of ICU who accepted the patient to the ICU and was in agreement with the plan. Discussed with the admitting team, EUGENIO Castro of [facility] who accepted the admission. Was smoking cessation discussed for >3mins.? @ -No Was critical care preformed (if so, how long)? @ -Yes, 61 minutes. Were there social determinants of health that impacted care today? How? (Homelessness, low income, unemployed, alcoholism, drug addiction, transportation, low edu. Level, literacy, decrease access to med. care, shelter, rehab)? @ -No Was there de-escalation of care discussed even if they declined (Discuss DNR or withdrawal of care, Hospice)? DNR status @ -No What co-morbidities impacted this encounter? (DM, HTN, Smoking, COPD, CAD, Cancer, CVA, ARF, Chemo, Hep., AIDS, mental health diagnosis, sleep apnea, morbid obesity)? @ -Obesity, atrial fibrillation on blood thinners, debility, cardiac arrest Was patient admitted / discharged? Hospital course, mention meds given and route, prescriptions, significant lab abnormalities, going to OR and other pertinent info. @ -Based on the patient's presentation and physical exam, patient presents status post Rosc following cardiac arrest at her nursing facility when she was not administered any shocks or any medications. Only chest compressions were given. Patient presents hypoxic and respiratory distress but otherwise with stable vital signs. Respiratory rate is increased and oxygenation is 75% on 6 L nasal cannula. Patient immediately placed on BiPAP. He is talking and interactive and able to follow commands. She is asking what happened. Able to move all 4 extremities. Multiple IVs were placed. Chest x-ray revealed bilateral pulmonary infiltrates with differential including pneumonia versus CHF. Clinically the patient presents volume overloaded loaded with significant pitting edema diffusely. On BiPAP, patient did improve with oxygenation now 95% or higher and normal respirations at this time. Vital signs remained stable. Patient given a dose of Lasix due to concern for possible CHF. Broad workup will be initiated. Patient will be admitted to ICU. We'll obtain CT brain, chest, abdomen and pelvis as well. Patient continues to do well on BiPAP. CT imaging unremarkable except for f indings concerning for bilateral pneumonia. Labs reveal a mild leukocytosis of 11.6, chronic stable anemia with a hemoglobin of 9.6. Patient has lactic acidosis of 2.9. Troponin undetectable. BNP 926. Urinalysis concerning for infection. Vital signs negative. Patient does meet criteria for sepsis at this 2143. Patient will not be administered the 30 mL per KG fluid bolus as the patient appears volume overloaded and has a history of CHF with hypoxia and bilateral pulmonary vascular congestion on the differential. Therefore we will closely monitor fluid intake. Patient in agreement with this plan. We will initiate IV antibiotics including Zosyn and vancomycin. Blood cultures and urine cultures sent. Source appears to be pneumonia versus UTI. Patient's brother Phan Knowles contacted the ER and I updated him on the patient's condition. Patient remains stable on BiPAP. We are weaning settings. Currently at 14/6 at 85%. I contacted the ICU, Dr. Guevara who accepted the patient was in agreement with the management. Cardiology consulted for cardiac arrest. I spoke with [facility] admitting team, EUGENIO Castro of [facility] who accepted the admission. Undiagnosed new problem with uncertain prognosis? @ -No Drug Therapy requiring intensive monitoring for toxicity (Heparin, Nitro, Insulin, Cardizem)? @ -No Were any procedures done? @ -No Diagnosis/symptom? @ -ROSC Status post cardiac arrest Acute, or Chronic, or Acute on Chronic? @ -Acute Uncomplicated (without systemic symptoms) or Complicated (systemic symptoms)? @ -Complicated Side effects of treatment? @ -No Exacerbation, Progression, or Severe Exacerbation? @ -No Poses a threat to life or bodily function? How? (Chest pain, USA, ME, pneumonia, PE, COPD, DKA, ARF, appy, cholecystitis, CVA, Diverticulitis, Homicidal, Suicidal, threat to staff... and all critical care pts) @ -Yes Diagnosis/symptom? @ -Hypoxic respiratory failure requiring noninvasive positive pressure ventilation, likely secondary to pneumonia versus CHF Acute, or Chronic, or Acute on Chronic? @ -Acute Uncomplicated (without systemic symptoms) or Complicated (systemic symptoms)? @ -Complicated Side effects of treatment? @ -none Exacerbation, Progression, or Severe Exacerbation] @ -no Poses a threat to life or bodily function? @ -Yes Diagnosis/symptom? @ -Suspected sepsis secondary likely to UTI versus pneumonia Acute, or Chronic, or Acute on Chronic? @ -Acute Uncomplicated (without systemic symptoms) or Complicated (systemic symptoms)? @ -Complicated Side effects of treatment? @ -none Exacerbation, Progression, or Severe Exacerbation] @ -no Poses a threat to life or bodily function? @ -Yes - Lab Data Result diagrams: 12/27/22 21:43 12/27/22 21:43 Lab Results 12/27/22 12/27/22 12/27/22 Range/Units 21:42 21:43 21:43 WBC 11.6 H (3.8-10.6) k/uL RBC 3.90 (3.80-5.40) m/uL Hgb 9.6 L (11.4-16.0) gm/dL Hct 32.2 L (34.0-46.0) % MCV 82.7 (80.0-100.0) fL MCH 24.7 L (25.0-35.0) pg MCHC 29.9 L (31.0-37.0) g/dL RDW 18.6 H (11.5-15.5) % Plt Count 234 (150-450) k/uL MPV 7.5 Neutrophils % 59 % Lymphocytes % 28 % Monocytes % 6 % Eosinophils % 5 % Basophils % 1 % Neutrophils # 6.8 (1.3-7.7) k/uL Lymphocytes # 3.3 (1.0-4.8) k/uL Monocytes # 0.7 (0-1.0) k/uL Eosinophils # 0.5 (0-0.7) k/uL Basophils # 0.1 (0-0.2) k/uL Hypochromasia Marked Poikilocytosis Slight Anisocytosis Slight Microcytosis Slight PT 10.5 (9.0-12.0) sec INR 1.0 (<1.2) APTT 19.8 L (22.0-30.0) sec Sample Site ABG pH (7.35-7.45) ABG pCO2 (35-45) mmHg ABG pO2 (83-108) mmHg ABG O2 Saturation (94-97) % Isaac Test FiO2 % Sodium (137-145) mmol/L Potassium (3.5-5.1) mmol/L Chloride (98-107) mmol/L Carbon Dioxide (22-30) mmol/L Anion Gap mmol/L BUN (7-17) mg/dL Creatinine (0.52-1.04) mg/dL Est GFR (CKD-EPI)AfAm (>60 ml/min/1.73 sqM) Est GFR (CKD-EPI)NonAf (>60 ml/min/1.73 sqM) Glucose (74-99) mg/dL POC Glucose (mg/dL) 223 H (70-110) mg/dL POC Glu Equipment Washer ID Willing, Namrata Lactic Ac Sepsis Rflx Plasma Lactic Acid Dev (0.7-2.0) mmol/L Calcium (8.4-10.2) mg/dL Magnesium (1.6-2.3) mg/dL Total Bilirubin (0.2-1.3) mg/dL AST (14-36) U/L ALT (4-34) U/L Alkaline Phosphatase (38-126) U/L Troponin I (0.000-0.034) ng/mL NT-Pro-B Natriuret Pep pg/mL Total Protein (6.3-8.2) g/dL Albumin (3.5-5.0) g/dL Urine Color Urine Appearance (Clear) Urine pH (5.0-8.0) Ur Specific [place] (1.001-1.035) Urine Protein (Negative) Urine Glucose (UA) (Negative) Urine Ketones (Negative) Urine Blood (Negative) Urine Nitrite (Negative) Urine Bilirubin (Negative) Urine Urobilinogen (<2.0) mg/dL Ur Leukocyte Esterase (Negative) Urine RBC (0-5) /hpf Urine WBC (0-5) /hpf Influenza Type A (PCR) (Not Detectd) Influenza Type B (PCR) (Not Detectd) RSV (PCR) (Not Detectd) SARS-CoV-2 (PCR) (Not Detectd) 12/27/22 12/27/22 12/27/22 Range/Units 21:43 21:43 21:43 WBC (3.8-10.6) k/uL RBC (3.80-5.40) m/uL Hgb (11.4-16.0) gm/dL Hct (34.0-46.0) % MCV (80.0-100.0) fL MCH (25.0-35.0) pg MCHC (31.0-37.0) g/dL RDW (11.5-15.5) % Plt Count (150-450) k/uL MPV Neutrophils % % Lymphocytes % % Monocytes % % Eosinophils % % Basophils % % Neutrophils # (1.3-7.7) k/uL Lymphocytes # (1.0-4.8) k/uL Monocytes # (0-1.0) k/uL Eosinophils # (0-0.7) k/uL Basophils # (0-0.2) k/uL Hypochromasia Poikilocytosis Anisocytosis Microcytosis PT (9.0-12.0) sec INR (<1.2) APTT (22.0-30.0) sec Sample Site ABG pH (7.35-7.45) ABG pCO2 (35-45) mmHg ABG pO2 (83-108) mmHg ABG O2 Saturation (94-97) % Isaac Test FiO2 % Sodium 138 (137-145) mmol/L Potassium 4.4 (3.5-5.1) mmol/L Chloride 101 (98-107) mmol/L Carbon Dioxide 30 (22-30) mmol/L Anion Gap 7 mmol/L BUN 17 (7-17) mg/dL Creatinine 0.98 (0.52-1.04) mg/dL Est GFR (CKD-EPI)AfAm 69 (>60 ml/min/1.73 sqM) Est GFR (CKD-EPI)NonAf 60 (>60 ml/min/1.73 sqM) Glucose 202 H (74-99) mg/dL POC Glucose (mg/dL) (70-110) mg/dL POC Glu Equipment Washer ID Lactic Ac Sepsis Rflx Plasma Lactic Acid Dev 2.9 H* (0.7-2.0) mmol/L Calcium 8.3 L (8.4-10.2) mg/dL Magnesium 1.9 (1.6-2.3) mg/dL Total Bilirubin 0.4 (0.2-1.3) mg/dL AST 107 H (14-36) U/L ALT 48 H (4-34) U/L Alkaline Phosphatase 119 (38-126) U/L Troponin I <0.012 (0.000-0.034) ng/mL NT-Pro-B Natriuret Pep 926 pg/mL Total Protein 6.6 (6.3-8.2) g/dL Albumin 3.4 L (3.5-5.0) g/dL Urine Color Urine Appearance (Clear) Urine pH (5.0-8.0) Ur Specific [place] (1.001-1.035) Urine Protein (Negative) Urine Glucose (UA) (Negative) Urine Ketones (Negative) Urine Blood (Negative) Urine Nitrite (Negative) Urine Bilirubin (Negative) Urine Urobilinogen (<2.0) mg/dL Ur Leukocyte Esterase (Negative) Urine RBC (0-5) /hpf Urine WBC (0-5) /hpf Influenza Type A (PCR) (Not Detectd) Influenza Type B (PCR) (Not Detectd) RSV (PCR) (Not Detectd) SARS-CoV-2 (PCR) (Not Detectd) 12/27/22 12/27/22 12/27/22 Range/Units 21:49 22:07 22:10 WBC (3.8-10.6) k/uL RBC (3.80-5.40) m/uL Hgb (11.4-16.0) gm/dL Hct (34.0-46.0) % MCV (80.0-100.0) fL MCH (25.0-35.0) pg MCHC (31.0-37.0) g/dL RDW (11.5-15.5) % Plt Count (150-450) k/uL MPV Neutrophils % % Lymphocytes % % Monocytes % % Eosinophils % % Basophils % % Neutrophils # (1.3-7.7) k/uL Lymphocytes # (1.0-4.8) k/uL Monocytes # (0-1.0) k/uL Eosinophils # (0-0.7) k/uL Basophils # (0-0.2) k/uL Hypochromasia Poikilocytosis Anisocytosis Microcytosis PT (9.0-12.0) sec INR (<1.2) APTT (22.0-30.0) sec Sample Site lrad ABG pH 7.28 L (7.35-7.45) ABG pCO2 67 H (35-45) mmHg ABG pO2 100 (83-108) mmHg ABG O2 Saturation 98.0 H (94-97) % Isaac Test Yes FiO2 100 % Sodium (137-145) mmol/L Potassium (3.5-5.1) mmol/L Chloride (98-107) mmol/L Carbon Dioxide (22-30) mmol/L Anion Gap mmol/L BUN (7-17) mg/dL Creatinine (0.52-1.04) mg/dL Est GFR (CKD-EPI)AfAm (>60 ml/min/1.73 sqM) Est GFR (CKD-EPI)NonAf (>60 ml/min/1.73 sqM) Glucose (74-99) mg/dL POC Glucose (mg/dL) (70-110) mg/dL POC Glu Equipment Washer ID Lactic Ac Sepsis Rflx Y Plasma Lactic Acid Dve (0.7-2.0) mmol/L Calcium (8.4-10.2) mg/dL Magnesium (1.6-2.3) mg/dL Total Bilirubin (0.2-1.3) mg/dL AST (14-36) U/L ALT (4-34) U/L Alkaline Phosphatase (38-126) U/L Troponin I (0.000-0.034) ng/mL NT-Pro-B Natriuret Pep pg/mL Total Protein (6.3-8.2) g/dL Albumin (3.5-5.0) g/dL Urine Color Urine Appearance (Clear) Urine pH (5.0-8.0) Ur Specific [place] (1.001-1.035) Urine Protein (Negative) Urine Glucose (UA) (Negative) Urine Ketones (Negative) Urine Blood (Negative) Urine Nitrite (Negative) Urine Bilirubin (Negative) Urine Urobilinogen (<2.0) mg/dL Ur Leukocyte Esterase (Negative) Urine RBC (0-5) /hpf Urine WBC (0-5) /hpf Influenza Type A (PCR) Not Detected (Not Detectd) Influenza Type B (PCR) Not Detected (Not Detectd) RSV (PCR) Not Detected (Not Detectd) SARS-CoV-2 (PCR) Not Detected (Not Detectd) 12/27/22 Range/Units 23:06 WBC (3.8-10.6) k/uL RBC (3.80-5.40) m/uL Hgb (11.4-16.0) gm/dL Hct (34.0-46.0) % MCV (80.0-100.0) fL MCH (25.0-35.0) pg MCHC (31.0-37.0) g/dL RDW (11.5-15.5) % Plt Count (150-450) k/uL MPV Neutrophils % % Lymphocytes % % Monocytes % % Eosinophils % % Basophils % % Neutrophils # (1.3-7.7) k/uL Lymphocytes # (1.0-4.8) k/uL Monocytes # (0-1.0) k/uL Eosinophils # (0-0.7) k/uL Basophils # (0-0.2) k/uL Hypochromasia Poikilocytosis Anisocytosis Microcytosis PT (9.0-12.0) sec INR (<1.2) APTT (22.0-30.0) sec Sample Site ABG pH (7.35-7.45) ABG pCO2 (35-45) mmHg ABG pO2 (83-108) mmHg ABG O2 Saturation (94-97) % Isaac Test FiO2 % Sodium (137-145) mmol/L Potassium (3.5-5.1) mmol/L Chloride (98-107) mmol/L Carbon Dioxide (22-30) mmol/L Anion Gap mmol/L BUN (7-17) mg/dL Creatinine (0.52-1.04) mg/dL Est GFR (CKD-EPI)AfAm (>60 ml/min/1.73 sqM) Est GFR (CKD-EPI)NonAf (>60 ml/min/1.73 sqM) Glucose (74-99) mg/dL POC Glucose (mg/dL) (70-110) mg/dL POC Glu Equipment Washer ID Lactic Ac Sepsis Rflx Plasma Lactic Acid Dev (0.7-2.0) mmol/L Calcium (8.4-10.2) mg/dL Magnesium (1.6-2.3) mg/dL Total Bilirubin (0.2-1.3) mg/dL AST (14-36) U/L ALT (4-34) U/L Alkaline Phosphatase (38-126) U/L Troponin I (0.000-0.034) ng/mL NT-Pro-B Natriuret Pep pg/mL Total Protein (6.3-8.2) g/dL Albumin (3.5-5.0) g/dL Urine Color Light Red Urine Appearance Cloudy H (Clear) Urine pH 6.5 (5.0-8.0) Ur Specific [place] 1.019 (1.001-1.035) Urine Protein 2+ H (Negative) Urine Glucose (UA) Trace H (Negative) Urine Ketones Negative (Negative) Urine Blood Large H (Negative) Urine Nitrite Negative (Negative) Urine Bilirubin Negative (Negative) Urine Urobilinogen <2.0 (<2.0) mg/dL Ur Leukocyte Esterase Large H (Negative) Urine RBC >182 H (0-5) /hpf Urine WBC 82 H (0-5) /hpf Influenza Type A (PCR) (Not Detectd) Influenza Type B (PCR) (Not Detectd) RSV (PCR) (Not Detectd) SARS-CoV-2 (PCR) (Not Detectd) - EKG Data -: EKG Interpreted by Me EKG Comments: 12-lead Electrocardiogram Interpretation Note EKG was reviewed and interpreted by myself. 12-lead ECG performed at 2145 is interpreted by me as revealing normal sinus rhythm at a rate of 93 beats per minute. [place] is normal. [place] interval is 97 ms, QRS duration is 114 ms, QTc is 426 seconds.. There were no ST or T wave abnormalities to suggest myocardial ischemia or injury. R wave progression across the precordium was delayed. By my interpretation this EKG is non-diagnostic for acute ischemia. This EKG does show a good amount of baseline artifact making interpretation difficult. Critical Care Time Critical Care Time: Yes Total Critical Care Time: 61 Disposition Clinical Impression: Sepsis, Acute respiratory failure with hypoxia, Pneumonia, UTI (urinary tract infection), Cardiac arrest, Chronic anemia Narrative: possible chf exacerbation Disposition: ADMITTED IP TO THIS HOSP Condition: Serious Time of Disposition: 23:46
[2022-12-27] MEDS ORDERED: NALOXONE 0.4 MG/ML 1 ML VIAL IV PRN (23:46)
[2022-12-28 00:37] LABS: Glucose,Whole Blood 217 mg/dL (70-110)
[2022-12-28] MEDS: LEVOTHYROXINE 125 MCG TAB PO SCH (05:48)
[2022-12-28 06:08] LABS: Anisocytosis Slight; Basophils % (A) 0 %; Eosinophils # (A) 0.1 k/uL (0-0.7); Eosinophils % (A) 1 %; HCT 28.1 % (34.0-46.0); HGB 8.4 gm/dL (11.4-16.0); Hypochromasia Marked; Lymphocytes # (A) 1.4 k/uL (1.0-4.8); Lymphocytes % (A) 10 %; MCH 24.6 pg (25.0-35.0); MCV 81.8 fL (80.0-100.0); Mean Platelet Volume 6.5; Microcytosis Slight; Monocytes # (A) 0.6 k/uL (0-1.0); Monocytes % (A) 4 %; Neutrophils # (A) 11.4 k/uL (1.3-7.7); Neutrophils % (A) 84 %; Platelet Count 189 k/uL (150-450); Poikilocytosis Slight; RBC 3.44 m/uL (3.80-5.40); RDW 18.6 % (11.5-15.5); WBC 13.5 k/uL (3.8-10.6)
[2022-12-28 06:14] LABS: African American GFR (CKD) 72 (>60 ml/min/1.73 sqM); Anion Gap 4 mmol/L; Blood Urea Nitrogen 19 mg/dL (7-17); Carbon Dioxide 34 mmol/L (22-30); Chloride 98 mmol/L (98-107); Glucose 239 mg/dL (74-99); Non-African American GFR(CKD) 62 (>60 ml/min/1.73 sqM); Potassium 4.6 mmol/L (3.5-5.1); Sodium 136 mmol/L (137-145)
[2022-12-28] MEDS: PIPERACILLIN-TAZOBACTAM 3.375 GM in SODIUM CHLORIDE 0.9% 100 ML IVPB SCH ×3 (06:38→21:08)
--- NOTE | 2022-12-28 07:25 | XR ---
EXAMINATION TYPE: XR chest 1V DATE OF EXAM: 12/28/2022 CLINICAL HISTORY: Difficulty breathing progress study. TECHNIQUE: Single AP portable semiupright view of the chest is obtained. COMPARISON: Chest x-ray from one day earlier FINDINGS: Persistent cardiomegaly. Persistent multifocal increased opacities greatest in the lateral left mid to lower lung. No pleural effusion or pneumothorax is evident. Degenerative changes right g lenohumeral joint redemonstrated. IMPRESSION: Cardiomegaly with bilateral multifocal opacities remains present. No significant change f rom one day earlier.
[2022-12-28] MEDS: METOPROLOL SUCCINATE (ER) 50 MG TAB.ER.24H PO SCH (08:48)
[2022-12-28] MEDS: ASPIRIN 81 MG PO SCH (08:48)
[2022-12-28] MEDS: ISOSORBIDE MONONITRATE ER 30 MG TAB.ER.24H PO SCH (08:48)
[2022-12-28] MEDS: RIVAROXABAN 10 MG TAB PO SCH (08:48)
[2022-12-28] MEDS: ACETAMINOPHEN TAB 325 MG TAB PO PRN ×2 (08:48→16:11)
[2022-12-28] MEDS: busPIRone HCl 10 MG TAB PO SCH ×2 (08:48→21:08)
[2022-12-28] MEDS: allopurinoL 100 MG TAB PO SCH (08:48)
[2022-12-28] MEDS ORDERED: FUROSEMIDE 20 MG TAB PO SCH (09:00)
[2022-12-28] MEDS ORDERED: PNEUMONIA PROTOCOL UTILIZED 1 EACH MISC PO PRN (09:04)
[2022-12-28] MEDS ORDERED: methocarbamoL 500 MG TAB PO PRN (09:05)
[2022-12-28] MEDS ORDERED: DEXTROSE 50% SYRINGE 50 ML IVP PRN ×2 (09:06)
[2022-12-28] MEDS: FUROSEMIDE 10 MG/ML 4 ML VIAL IV SCH ×2 (09:42→21:07)
[2022-12-28] MEDS: DULoxetine HCL 30 MG CAPSULE.DR PO SCH ×2 (09:43→21:08)
[2022-12-28 11:27] LABS: Glucose,Whole Blood 203 mg/dL (70-110)
--- NOTE | 2022-12-28 12:04 | P.CNPUL ---
History of Present Illness Consult date: 12/28/22 Requesting physician: Yoselin Caballero Reason for consult: other (Cardiac arrest) Chief complaint: Cardiac arrest History of present illness: This is a 67-year-old female, skilled nursing resident, known history of multiple medical problems including chronic atrial fibrillation, asthma, coronary artery disease and previous stent placement, chronic congestive heart failure, history of CVA/TIA history of degenerative joint disease, recent history of urinary tract infection and pyelonephritis with hydronephrosis. 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 Patient had a witnessed syncopal episode while at the skilled nursing, patient went unresponsive as the nursing staff were transferring the patient back to her bed for bedtime. Again the patient underwent 3 rounds of CPR and obtained return of spontaneous circulation. No shocks were given. No medications were given. Patient had basically on the 3 rounds of CPR. When EMS arrived, the patient was responsive, but she couldn't remember the incident, and she appeared to be alert and oriented 3 at the time. Patient was noted to have difficulty breathing, but she had no chest pain, no abdominal pain, no nausea, no vomiting. Patient was brought into the ER, and again did not require intubation or mechanical ventilation, patient was placed on BiPAP initially. ABG showed a pO2 of 100 pCO2 67 pH of 7.28 she was later transitioned to 4 L nasal cannula. Workup also included CT of the brain which came back negative CT abdomen and pelvis negative chest x-ray showed evidence of bilateral opacities, it is difficult to tell whether the findings are findings of aspiration pneumonia or could be related to ongoing chronic congestive heart failure. BNP level was not elevated. Pro-calcitonin level is pending. Patient does seem to have an infected urine with pyuria and bacteriuria noted in the urinalysis. Basic metabolic profile was noted to be normal lactic acid this morning is 1.2, it was 2.9 on admission. WBC count 15.5 hemoglobin 8.4. Considering the findings on chest x-ray, patient was kept on vancomycin and Zosyn empirically. Patient is also on Lasix 40 mg IV push every 12 hours, and she is chronically on Xarelto which will remain the same. Patient does have previous history of DVT and pulmonary embolism as well as chronic atrial fibrillation. Review of Systems CONSTITUTIONAL: No fever, no malaise, no fatigue. HEENT: No recent visual problems or hearing problems. Denied any sore throat. CARDIOVASCULAR: As noted in HPI patient had a sudden syncopal episode and required CPR for 5 minutes. PULMONARY: Some shortness of breath, no cough no wheezing no fever no chills no hemoptysis GASTROINTESTINAL: No diarrhea, no vomiting,. Normoactive bowel sounds. NEUROLOGICAL: No headaches, no weakness, no numbness. HEMATOLOGICAL: Denies any bleeding or petechiae. GENITOURINARY: Denies any burning micturition, frequency, or urgency. MUSCULOSKELETAL/RHEUMATOLOGICAL: Denies any joint pain, swelling ENDOCRINE: Denies any polyuria or polydipsia. Past Medical History Past Medical History: Atrial Fibrillation, Asthma, Coronary Artery Disease (CAD), Heart Failure, CVA/TIA, Diabetes Mellitus, Deep Vein Thrombosis (DVT), Fibromyalgia, Hyperlipidemia, Hypertension, Myocardial Infarction ([place]), Osteoarthritis (OA), Pulmonary Embolus (PE), Skin Disorder, Thyroid Disorder Additional Past Medical History / Comment(s): frequent uti's,kidney stones,HEART MURMUR,cardiomyopathy,CHRONIC CONSTIPATION, ECZEMA,SINUS HEADACHES, HX ANEMIA, gout. stage III kidney disease stage 3,lower back pain. 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.FEEt, weakness LT SIDE, ,stg three kidney disease,eye disorder fuchs corneal dystrophy. Last Myocardial Infarction Date:: 2022 History of Any Multi-Drug Resistant Organisms: ESBL, MRSA Date of last positivie culture/infection: 01/02/22 MRSA;02/28/18-ESBL MDRO Source:: Urine-MRSA; Urine ESBL Past Surgical History: Appendectomy, Cardiac Ablation, Cholecystectomy, Heart Catheterization, Heart Catheterization With Stent, Hysterectomy Additional Past Surgical History / Comment(s): PARTIAL HYSTERECTOMY 03/18/14 @ [facility]. CATARACT BLACK. WITH IMPLANTS. HEART CATH X 3 TOTAL 3 STENTS, lithotripsy,kidney stent Past Anesthesia/Blood Transfusion Reactions: Motion Sickness Additional Past Anesthesia/Blood Transfusion Reaction / Comment(s): no hx blood transfusion Date of Last Stent Placement:: UNKNOWN Past Psychological History: Depression Additional Psychological History / Comment(s): Pt resides at [facility] Smoking Status: Former smoker Past Alcohol Use History: None Reported Additional Past Alcohol Use History / Comment(s): SMOKED AGE 15 TO AGE 21 -WHEN QUIT WAS SMOKING 1/2 PPD Past Drug Use History: None Reported - Past Family History Father Additional Family Medical History / Comment(s): "HARDENEING OF THE ARTERIES AT AGE 41. SMOKED AND DRANK ETOH Mother Family Medical History: Cancer Additional Family Medical History / Comment(s): "cyst that ruptured between bowel and bladder" Medications and Allergies Home Medications Medication Instructions Recorded Confirmed Type Montelukast [Singulair] 10 mg PO HS@209908/28/17 12/27/22 History Acetaminophen Tab [Tylenol] 1,000 mg PO Q6H PRN 05/22/21 12/27/22 History Levothyroxine Sodium [Synthroid] 125 mcg PO DAILY@59905/22/21 12/27/22 History Loratadine [Claritin] 10 mg PO DAILY PRN 05/22/21 12/27/22 History methocarbamoL [Robaxin] 500 mg PO TID PRN 05/22/21 12/27/22 History Isosorbide Mononitrate ER [Imdur] 30 mg PO DAILY@89912/04/21 12/27/22 History Nitroglycerin Sl Tabs [Nitrostat] 0.4 mg SL Q5M PRN 12/04/21 12/27/22 History DULoxetine HCL [Cymbalta] 30 mg PO BID@899,209909/27/22 12/27/22 History Omeprazole [PriLOSEC] 20 mg PO DAILY@59909/27/22 12/27/22 History allopurinoL 100 mg PO DAILY@89909/27/22 12/27/22 History busPIRone HCl [Buspar] 10 mg PO BID@899,209909/27/22 12/27/22 History Docusate [Colace] 100 mg PO BID PRN 10/01/22 12/27/22 Rx Lactulose 20 gm PO DAILY@89911/19/22 12/27/22 History Melatonin 5 mg PO HS@209911/19/22 12/27/22 History Sennosides/Docusate Sodium [Senna 2 tab PO HS@209911/19/22 12/27/22 History Plus 8.6-50 mg Softgel] Aspirin 81 mg PO DAILY@89912/27/22 12/27/22 History Atorvastatin [Lipitor] 80 mg PO HS@209912/27/22 12/27/22 History Cefuroxime [Ceftin] 250 mg PO BID@899,209912/27/22 12/27/22 History Cyanocobalamin [Vitamin B-12] 1,000 mcg PO DAILY@89912/27/22 12/27/22 History INSULIN ASPART (NovoLOG) [NovoLOG See Protocol SQ ACHS@,,,12/27/22 12/27/22 History (formulary)] Metoprolol Succinate (ER) [Toprol 50 mg PO DAILY@89912/27/22 12/27/22 History Xl] Rivaroxaban [Xarelto] 10 mg PO DAILY@89912/27/22 12/27/22 History Allergies Allergy/AdvReac Type Severity Reaction Status Date / Time grass pollen Allergy Sinus Verified 12/27/22 22:34 latex Allergy Rash/Hives Verified 12/27/22 22:34 mold Allergy Sinus Verified 12/27/22 22:34 pollen extracts Allergy Sinus Verified 12/27/22 22:34 tree and shrub pollen Allergy Sinus Verified 12/27/22 22:34 Tetracyclines AdvReac YEAST Verified 12/27/22 22:34 INFECTION- PREFERS NOT TO TAKE ENVIRONMENTAL ALLERGIES Allergy SINUS Uncoded 12/06/22 08:19 SYMPTOMS-GRASS TREES,DUST,POLLENS,MOLD Physical Exam Vitals: Vital Signs Temp Pulse Pulse Resp BP BP Pulse Ox 12/28/22 08:21 96 12/28/22 08:00 97.6 F 72 16 112/34 96 12/28/22 07:00 81 14 111/51 94 L 12/28/22 06:40 97.8 F 81 22 111/51 93 L 12/28/22 06:00 70 14 123/62 98 12/28/22 05:00 70 14 123/74 97 12/28/22 04:00 97.7 F 74 14 118/64 94 L 12/28/22 03:30 12/28/22 03:00 76 14 129/51 92 L 12/28/22 02:00 79 15 120/68 94 L 12/28/22 01:00 96.5 F L 77 15 129/74 98 12/28/22 00:33 73 19 136/87 100 12/27/22 23:00 85 19 143/72 100 12/27/22 22:38 84 16 135/67 99 12/27/22 22:13 12/27/22 21:56 86 12/27/22 21:51 85 12/27/22 21:42 96 12/27/22 21:38 36 H 12/27/22 21:33 98.4 F 99 36 H 132/93 75 L FiO2 12/28/22 08:21 12/28/22 08:00 12/28/22 07:00 12/28/22 06:40 12/28/22 06:00 12/28/22 05:00 12/28/22 04:00 40 12/28/22 03:30 40 12/28/22 03:00 12/28/22 02:00 12/28/22 01:00 60 12/28/22 00:33 12/27/22 23:00 12/27/22 22:38 12/27/22 22:13 85 12/27/22 21:56 12/27/22 21:51 100 12/27/22 21:42 12/27/22 21:38 12/27/22 21:33 Intake and Output 12/27/22 12/28/22 12/28/22 22:59 06:59 14:59 Intake Total 600 280 Output Total 2540 460 Balance -1940 -180 Intake: IV 600 40 0.9 @ KVO 100 40 Vancomycin 2,250 mg In 500 Sodium Chloride 0.9% 500 ml 500 ml @ 167 mls/hr IVPB ONCE STA Rx#: [id number] Oral 240 Output: Urine 2540 460 Other: Voiding Method Indwelling Catheter Weight 158.757 kg 158.757 kg GENERAL: Revealed a 67-year-old female, morbidly obese, on 4 L nasal cannula, does not seem to be in distress. HEENT: Pupils are round and equally reacting to light. EOMI. No scleral icterus. No conjunctival pallor. Normocephalic, atraumatic. No pharyngeal erythema. No thyromegaly. CARDIOVASCULAR: S1 and S2 present. No murmurs, rubs, or gallops. PULMONARY: Crackles and rhonchi noted bilaterally.. ABDOMEN: Morbidly obese, Soft, nontender, nondistended, normoactive bowel sounds. No palpable organomegaly. MUSCULOSKELETAL: No joint swelling or deformity. EXTREMITIES: No cyanosis, clubbing, 2+ bipedal edema. NEUROLOGICAL: Gross neurological examination did not reveal any focal deficits. SKIN: No rashes Results - Laboratory Findings CBC and BMP: 12/28/22 05:26 12/28/22 05:26 ABG ABG pH 7.28 (7.35-7.45) L 12/27/22 22:10 ABG pCO2 67 mmHg (35-45) H 12/27/22 22:10 ABG pO2 100 mmHg (83-108) 12/27/22 22:10 ABG O2 Saturation 98.0 % (94-97) H 12/27/22 22:10 PT/INR, D-dimer PT 10.5 sec (9.0-12.0) 12/27/22 21:43 INR 1.0 (<1.2) 12/27/22 21:43 Abnormal lab findings: Abnormal Labs 12/27/22 12/27/22 12/27/22 21:42 21:43 21:43 WBC 11.6 H RBC Hgb 9.6 L Hct 32.2 L MCH 24.7 L MCHC 29.9 L RDW 18.6 H Neutrophils # APTT 19.8 L ABG pH ABG pCO2 ABG O2 Saturation Sodium Carbon Dioxide BUN Glucose POC Glucose (mg/dL) 223 H Plasma Lactic Acid Dev Calcium AST ALT Albumin Urine Appearance Urine Protein Urine Glucose (UA) Urine Blood Ur Leukocyte Esterase Urine RBC Urine WBC 12/27/22 12/27/22 12/27/22 21:43 21:43 22:10 WBC RBC Hgb Hct MCH MCHC RDW Neutrophils # APTT ABG pH 7.28 L ABG pCO2 67 H ABG O2 Saturation 98.0 H Sodium Carbon Dioxide BUN Glucose 202 H POC Glucose (mg/dL) Plasma Lactic Acid Dev 2.9 H* Calcium 8.3 L AST 107 H ALT 48 H Albumin 3.4 L Urine Appearance Urine Protein Urine Glucose (UA) Urine Blood Ur Leukocyte Esterase Urine RBC Urine WBC 12/27/22 12/28/22 12/28/22 23:06 00:35 05:26 WBC 13.5 H RBC 3.44 L Hgb 8.4 L Hct 28.1 L MCH 24.6 L MCHC 30.0 L RDW 18.6 H Neutrophils # 11.4 H APTT ABG pH ABG pCO2 ABG O2 Saturation Sodium Carbon Dioxide BUN Glucose POC Glucose (mg/dL) 217 H Plasma Lactic Acid Dev Calcium AST ALT Albumin Urine Appearance Cloudy H Urine Protein 2+ H Urine Glucose (UA) Trace H Urine Blood Large H Ur Leukocyte Esterase Large H Urine RBC >182 H Urine WBC 82 H 12/28/22 12/28/22 05:26 11:25 WBC RBC Hgb Hct MCH MCHC RDW Neutrophils # APTT ABG pH ABG pCO2 ABG O2 Saturation Sodium 136 L Carbon Dioxide 34 H BUN 19 H Glucose 239 H POC Glucose (mg/dL) 203 H Plasma Lactic Acid Dev Calcium 8.0 L AST ALT Albumin Urine Appearance Urine Protein Urine Glucose (UA) Urine Blood Ur Leukocyte Esterase Urine RBC Urine WBC - Diagnostic Findings Chest x-ray: image reviewed (Chest x-ray showed cardiomegaly, multifocal opacities, difficult to tell if this is true pneumonia or congestive heart failure/interstitial edema) Assessment and Plan Assessment: Impression: Witnessed syncope, possible cardiac arrest, status post CPR for 5 minutes with return of spontaneous circulation. Acute hypoxic and hypercapnic respiratory failure secondary to above Suspect aspiration pneumonia Suspect acute on Chronic systolic congestive heart failure ejection fraction of 35-40% Chronic atrial fibrillation Chronic urinary tract infection Morbid obesity, BMI of 45.7 History of underlying coronary artery disease History of CVA/TIA Benign essential hypertension Dyslipidemia Degenerative joint disease Hypothyroidism Fibromyalgia History of DVT and pulmonary embolism Chronic kidney disease stage III Diabetic neuropathy and nephropathy History of hypertension Recommendation: Continue to monitor the patient in the ICU Continue oxygen and titrate accordingly use BiPAP if necessary. Continue antibiotics empirically patient is now on vancomycin and Zosyn Awaiting for blood cultures and urine cultures and adjust antibiotics accordingly Resume home medications including Xarelto GI prophylaxis. Resume cardiac meds on this patient and cardiology to see on consultation Close monitoring of kidney status and monitor daily electrolytes Patient is considered critically ill, and she has multiple and complex medical problems as noted above. Continue diuretics and repeat chest x-ray in the next 24 hours We will continue to follow. Time with Patient: Greater than 30
[2022-12-28] MEDS: INSULIN ASPART (NovoLOG) 100 UNIT/ML VIAL SQ SCH ×3 (12:24→21:08)
--- NOTE | 2022-12-28 12:36 | CONS ---
CONSULTATION HISTORY OF PRESENT ILLNESS: Uma is a 67-year-old lady, who is currently in a [facility] and had sudden episode of syncope while she was transferring from bed to a chair. She does not quite remember the exact events that transpired, came to the hospital and has done well since that time. She has history of atrial fibrillation, currently in sinus rhythm, had a set of troponin that is negative and I repeated a troponin this morning, that is also normal. Since being admitted, she did not have any symptoms of chest pain, difficulty in breathing, and did not have any cardiac arrhythmia. PAST MEDICAL HISTORY: Significant for hypertension; diabetes; dyslipidemia; paroxysmal atrial fibrillation, status post ablation; CAD, status post angioplasty; and cholecystectomy. MEDICATIONS AT HOME: Include: 1. Xarelto. 2. Robaxin. 3. Insulin. 4. Cymbalta. 5. BuSpar. 6. Vitamin B12. 7. Toprol-XL. 8. Synthroid. 9. Imdur. 10.Lipitor. 11.Aspirin. 12.Allopurinol. ALLERGIES: She has multiple allergies, they are charted, and I reviewed them. FAMILY HISTORY: Negative for premature coronary artery disease. SOCIAL HISTORY: Negative for smoking, EtOH abuse, or drug abuse. REVIEW OF SYSTEMS: review of systems has been performed. Pertinents are as documented. PHYSICAL EXAMINATION: GENERAL: She is comfortable at rest. VITAL SIGNS: Stable. CHEST: Reveals good air entry bilaterally. I do not hear any crackles or rhonchi. HEART: Reveals first and second heart sounds and a systolic murmur at the left lower sternal border. ABDOMEN: Soft. EXTREMITIES: Reveal bilateral 1+ pitting edema. LABORATORY DATA: Labs show a hemoglobin of 8.4, platelet count is 189. Potassium is 4.6, creatinine is 0.9. Two sets of troponins are negative. An echocardiogram in September of this year revealed an ejection fraction of 35% to 40% with apical hypokinesis. ASSESSMENT: 1. Syncope, rule out cardiac causes. 2. Paroxysmal atrial fibrillation. 3. Chronic systolic heart failure. PLAN: The patient received a dose of IV Lasix yesterday with good response. I will put her on Lasix 20 mg daily. Obtain a 2D echo. Watch her on telemetry, and if she is doing well, may be transfer her back to the [facility] over the next 24 to 48 hours. MMODL / IJN: [id number] /
--- NOTE | 2022-12-28 13:11 | P.HPIM ---
History of Present Illness H&P Date: 12/28/22 Chief Complaint: Loss of consciousness respiratory distress * 67-year-old lady with past medical history significant for atrial fibrillation, coronary artery disease, congestive heart failure, diabetes mellitus, hyperlipidemia, history of pulmonary embolism, history of CVA pr esented to the emergency department sent in for a witnessed episode of syncope. Patient was unresponsive per nursing staff could not feel a pulse in the started CPR. 3 rounds of CPR was done. Patient was not given shocks or medications. Patient just had chest compressions done * 1 EMS arrived patient was alert and responsive. However could not remember the incident * Workup initiated in ER showed CT head that was negative, CT abdomen and pelvis was negative. Chest x-ray was done which showed multifocal opacities. * CBC obtained showed elevated white cell count with left shift. Basic metabo lic panel showed sodium of 136 potassium 4.6, potassium 34 BUN 19 creatinine 0.95. Troponin obtained negative. Urine analysis was consistent with the urea * Patient did complain of shortness of breath, cough however denies fever, chills, diaphoresis * REVIEW OF SYSTEMS: Cough, shortness of breath CONSTITUTIONAL: No fever, no malaise, no fatigue. HEENT: No recent visual problems or hearing problems. Denied any sore throat. CARDIOVASCULAR: No chest pain, orthopnea, PND, no palpitations, no syncope. PULMONARY: Shortness of breath GASTROINTESTINAL: No diarrhea, no nausea, no vomiting, no abdominal pain. NEUROLOGICAL: No headaches, no weakness, no numbness. HEMATOLOGICAL: Denies any bleeding or petechiae. GENITOURINARY: Denies any burning micturition, frequency, or urgency. MUSCULOSKELETAL/RHEUMATOLOGICAL: Denies any joint pain, swelling, or any muscle pain. ENDOCRINE: Denies any polyuria or polydipsia. The rest of the 14-point review of systems is negative. PHYSICAL EXAMINATION: GENERAL: The patient is alert and oriented x3, HEENT: Pupils are round and equally reacting to light. EOMI CARDIOVASCULAR: S1 and S2 present. No murmurs, rubs, or gallops. PULMONARY: Chest is clear to auscultation, no wheezing or crackles. ABDOMEN: Soft, nontender, nondistended, normoactive bowel sounds. No palpable organomegaly. MUSCULOSKELETAL: No joint swelling or deformity. EXTREMITIES: Bilateral leg edema NEUROLOGICAL: Gross neurological examination did not reveal any focal deficits. SKIN: No rashes. Past Medical History Past Medical History: Atrial Fibrillation, Asthma, Coronary Artery Disease (CAD), Heart Failure, CVA/TIA, Diabetes Mellitus, Deep Vein Thrombosis (DVT), Fibromyalgia, Hyperlipidemia, Hypertension, Myocardial Infarction ([place]), Osteoarthritis (OA), Pulmonary Embolus (PE), Skin Disorder, Thyroid Disorder Additional Past Medical History / Comment(s): frequent uti's,kidney stones,HEART MURMUR,cardiomyopathy,CHRONIC CONSTIPATION, ECZEMA,SINUS HEADACHES, HX ANEMIA, gout. stage III kidney disease stage 3,lower back pain. 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.FEEt, weakness LT SIDE, ,stg three kidney disease,eye disorder fuchs corneal dy strophy. Last Myocardial Infarction Date:: 2022 History of Any Multi-Drug Resistant Organisms: ESBL, MRSA Date of last positivie culture/infection: 01/02/22 MRSA;02/28/18-ESBL MDRO Source:: Urine-MRSA; Urine ESBL Past Surgical History: Appendectomy, Cardiac Ablation, Cholecystectomy, Heart Catheterization, Heart Catheterization With Stent, Hysterectomy Additional Past Surgical History / Comment(s): PARTIAL HYSTERECTOMY 03/18/14 @ [facility]. CATARACT BLACK. WITH IMPLANTS. HEART CATH X 3 TOTAL 3 STENTS, lithotripsy,kidney stent Past Anesthesia/Blood Transfusion Reactions: Motion Sickness Additional Past Anesthesia/Blood Transfusion Reaction / Comment(s): no hx blood transfusion Date of Last Stent Placement:: UNKNOWN Past Psychological History: Depression Additional Psychological History / Comment(s): Pt resides at [facility] Smoking Status: Former smoker Past Alcohol Use History: None Reported Additional Past Alcohol Use History / Comment(s): SMOKED AGE 15 TO AGE 21 -WHEN QUIT WAS SMOKING 1/2 PPD Past Drug Use History: None Reported - Past Family History Father Additional Family Medical History / Comment(s): "HARDENEING OF THE ARTERIES AT AGE 41. SMOKED AND DRANK ETOH Mother Family Medical History: Cancer Additional Family Medical History / Comment(s): "cyst that ruptured between bowel and bladder" Medications and Allergies Home Medications Medication Instructions Recorded Confirmed Type Montelukast [Singulair] 10 mg PO HS@2100 08/28/17 12/27/22 History Acetaminophen Tab [Tylenol] 1,000 mg PO Q6H PRN 05/22/21 12/27/22 History Levothyroxine Sodium [Synthroid] 125 mcg PO DAILY@0605/22/21 12/27/22 History Loratadine [Claritin] 10 mg PO DAILY PRN 05/22/21 12/27/22 History methocarbamoL [Robaxin] 500 mg PO TID PRN 05/22/21 12/27/22 History Isosorbide Mononitrate ER [Imdur] 30 mg PO DAILY@89912/04/21 12/27/22 History Nitroglycerin Sl Tabs [Nitrostat] 0.4 mg SL Q5M PRN 12/04/21 12/27/22 History DULoxetine HCL [Cymbalta] 30 mg PO BID@899,209909/27/22 12/27/22 History Omeprazole [PriLOSEC] 20 mg PO DAILY@59909/27/22 12/27/22 History allopurinoL 100 mg PO DAILY@89909/27/22 12/27/22 History busPIRone HCl [Buspar] 10 mg PO BID@899,209909/27/22 12/27/22 History Docusate [Colace] 100 mg PO BID PRN cap 10/01/22 12/27/22 Rx Lactulose 20 gm PO DAILY@89911/19/22 12/27/22 History Melatonin 5 mg PO HS@209911/19/22 12/27/22 History Sennosides/Docusate Sodium [Senna 2 tab PO HS@209911/19/22 12/27/22 History Plus 8.6-50 mg Softgel] Aspirin 81 mg PO DAILY@89912/27/22 12/27/22 History Atorvastatin [Lipitor] 80 mg PO HS@209912/27/22 12/27/22 History Cefuroxime [Ceftin] 250 mg PO BID@0900,209912/27/22 12/27/22 History Cyanocobalamin [Vitamin B-12] 1,000 mcg PO DAILY@89912/27/22 12/27/22 History INSULIN ASPART (NovoLOG) [NovoLOG See Protocol SQ ACHS@08,12,,12/27/22 12/27/22 History (formulary)] Metoprolol Succinate (ER) [Toprol 50 mg PO DAILY@89912/27/22 12/27/22 History Xl] Rivaroxaban [Xarelto] 10 mg PO DAILY@0900 12/27/22 12/27/22 History Allergies Allergy/AdvReac Type Severity Reaction Status Date / Time grass pollen Allergy Sinus Verified 12/27/22 22:34 latex Allergy Rash/Hives Verified 12/27/22 22:34 mold Allergy Sinus Verified 12/27/22 22:34 pollen extracts Allergy Sinus Verified 12/27/22 22:34 tree and shrub pollen Allergy Sinus Verified 12/27/22 22:34 Tetracyclines AdvReac YEAST Verified 12/27/22 22:34 INFECTION- PREFERS NOT TO TAKE ENVIRONMENTAL ALLERGIES Allergy SINUS Uncoded 12/06/22 08:19 SYMPTOMS-GRASS TREES,DUST,POLLENS,MOLD Physical Exam Vitals: Vital Signs Temp Pulse Pulse Resp BP BP Pulse Ox 12/28/22 12:00 98.4 F 68 14 94/66 98 12/28/22 11:00 68 13 111/61 100 12/28/22 10:00 66 13 112/56 91 L 12/28/22 09:00 78 17 117/64 94 L 12/28/22 08:21 96 12/28/22 08:00 97.6 F 72 16 112/34 96 12/28/22 07:00 81 14 111/51 94 L 12/28/22 06:40 97.8 F 81 22 111/51 93 L 12/28/22 06:00 70 14 123/62 98 12/28/22 05:00 70 14 123/74 97 12/28/22 04:00 97.7 F 74 14 118/64 94 L 12/28/22 03:30 12/28/22 03:00 76 14 129/51 92 L 12/28/22 02:00 79 15 120/68 94 L 12/28/22 01:00 96.5 F L 77 15 129/74 98 12/28/22 00:33 73 19 136/87 100 12/27/22 23:00 85 19 143/72 100 12/27/22 22:38 84 16 135/67 99 12/27/22 22:13 12/27/22 21:56 86 12/27/22 21:51 85 12/27/22 21:42 96 12/27/22 21:38 36 H 12/27/22 21:33 98.4 F 99 36 H 132/93 75 L FiO2 12/28/22 12:00 12/28/22 11:00 12/28/22 10:00 12/28/22 09:00 12/28/22 08:21 12/28/22 08:00 12/28/22 07:00 12/28/22 06:40 12/28/22 06:00 12/28/22 05:00 12/28/22 04:00 40 12/28/22 03:30 40 12/28/22 03:00 12/28/22 02:00 12/28/22 01:00 60 12/28/22 00:33 12/27/22 23:00 12/27/22 22:38 12/27/22 22:13 85 12/27/22 21:56 12/27/22 21:51 100 12/27/22 21:42 12/27/22 21:38 12/27/22 21:33 Intake and Output 12/27/22 12/28/22 12/28/22 22:59 06:59 14:59 Intake Total 600 620 Output Total 2540 1510 Balance -1940 -890 Intake: IV 600 120 0.9 @ KVO 100 120 Vancomycin 2,250 mg In 500 Sodium Chloride 0.9% 500 ml 500 ml @ 167 mls/hr IVPB ONCE STA Rx#: [id number] Oral 500 Output: Urine 2540 1510 Other: Voiding Method Indwelling Catheter Weight 158.757 kg 158.757 kg Results CBC & Chem 7: 12/28/22 05:26 12/28/22 05:26 Labs: Abnormal Lab Results - Last 24 Hours (Table) 12/27/22 12/27/22 12/27/22 Range/Units 21:42 21:43 21:43 WBC 11.6 H (3.8-10.6) k/uL RBC (3.80-5.40) m/uL Hgb 9.6 L (11.4-16.0) gm/dL Hct 32.2 L (34.0-46.0) % MCH 24.7 L (25.0-35.0) pg MCHC 29.9 L (31.0-37.0) g/dL RDW 18.6 H (11.5-15.5) % Neutrophils # (1.3-7.7) k/uL APTT 19.8 L (22.0-30.0) sec ABG pH (7.35-7.45) ABG pCO2 (35-45) mmHg ABG O2 Saturation (94-97) % Sodium (137-145) mmol/L Carbon Dioxide (22-30) mmol/L BUN (7-17) mg/dL Glucose (74-99) mg/dL POC Glucose (mg/dL) 223 H (70-110) mg/dL Plasma Lactic Acid Dev (0.7-2.0) mmol/L Calcium (8.4-10.2) mg/dL AST (14-36) U/L ALT (4-34) U/L Albumin (3.5-5.0) g/dL Urine Appearance (Clear) Urine Protein (Negative) Urine Glucose (UA) (Negative) Urine Blood (Negative) Ur Leukocyte Esterase (Negative) Urine RBC (0-5) /hpf Urine WBC (0-5) /hpf 12/27/22 12/27/22 12/27/22 Range/Units 21:43 21:43 22:10 WBC (3.8-10.6) k/uL RBC (3.80-5.40) m/uL Hgb (11.4-16.0) gm/dL Hct (34.0-46.0) % MCH (25.0-35.0) pg MCHC (31.0-37.0) g/dL RDW (11.5-15.5) % Neutrophils # (1.3-7.7) k/uL APTT (22.0-30.0) sec ABG pH 7.28 L (7.35-7.45) ABG pCO2 67 H (35-45) mmHg ABG O2 Saturation 98.0 H (94-97) % Sodium (137-145) mmol/L Carbon Dioxide (22-30) mmol/L BUN (7-17) mg/dL Glucose 202 H (74-99) mg/dL POC Glucose (mg/dL) (70-110) mg/dL Plasma Lactic Acid Dev 2.9 H* (0.7-2.0) mmol/L Calcium 8.3 L (8.4-10.2) mg/dL AST 107 H (14-36) U/L ALT 48 H (4-34) U/L Albumin 3.4 L (3.5-5.0) g/dL Urine Appearance (Clear) Urine Protein (Negative) Urine Glucose (UA) (Negative) Urine Blood (Negative) Ur Leukocyte Esterase (Negative) Urine RBC (0-5) /hpf Urine WBC (0-5) /hpf 12/27/22 12/28/22 12/28/22 Range/Units 23:06 00:35 05:26 WBC 13.5 H (3.8-10.6) k/uL RBC 3.44 L (3.80-5.40) m/uL Hgb 8.4 L (11.4-16.0) gm/dL Hct 28.1 L (34.0-46.0) % MCH 24.6 L (25.0-35.0) pg MCHC 30.0 L (31.0-37.0) g/dL RDW 18.6 H (11.5-15.5) % Neutrophils # 11.4 H (1.3-7.7) k/uL APTT (22.0-30.0) sec ABG pH (7.35-7.45) ABG pCO2 (35-45) mmHg ABG O2 Saturation (94-97) % Sodium (137-145) mmol/L Carbon Dioxide (22-30) mmol/L BUN (7-17) mg/dL Glucose (74-99) mg/dL POC Glucose (mg/dL) 217 H (70-110) mg/dL Plasma Lactic Acid Dev (0.7-2.0) mmol/L Calcium (8.4-10.2) mg/dL AST (14-36) U/L ALT (4-34) U/L Albumin (3.5-5.0) g/dL Urine Appearance Cloudy H (Clear) Urine Protein 2+ H (Negative) Urine Glucose (UA) Trace H (Negative) Urine Blood Large H (Negative) Ur Leukocyte Esterase Large H (Negative) Urine RBC >182 H (0-5) /hpf Urine WBC 82 H (0-5) /hpf 12/28/22 12/28/22 Range/Units 05:26 11:25 WBC (3.8-10.6) k/uL RBC (3.80-5.40) m/uL Hgb (11.4-16.0) gm/dL Hct (34.0-46.0) % MCH (25.0-35.0) pg MCHC (31.0-37.0) g/dL RDW (11.5-15.5) % Neutrophils # (1.3-7.7) k/uL APTT (22.0-30.0) sec ABG pH (7.35-7.45) ABG pCO2 (35-45) mmHg ABG O2 Saturation (94-97) % Sodium 136 L (137-145) mmol/L Carbon Dioxide 34 H (22-30) mmol/L BUN 19 H (7-17) mg/dL Glucose 239 H (74-99) mg/dL POC Glucose (mg/dL) 203 H (70-110) mg/dL Plasma Lactic Acid Dev (0.7-2.0) mmol/L Calcium 8.0 L (8.4-10.2) mg/dL AST (14-36) U/L ALT (4-34) U/L Albumin (3.5-5.0) g/dL Urine Appearance (Clear) Urine Protein (Negative) Urine Glucose (UA) (Negative) Urine Blood (Negative) Ur Leukocyte Esterase (Negative) Urine RBC (0-5) /hpf Urine WBC (0-5) /hpf Thrombosis Risk Factor Assmnt - Choose All That Apply Each Factor Represents 1 point: Medical pt on bed rest, Obesity (BMI >25) Each Risk Factor Represents 2 Points: Age 61-74 years Each Risk Factor Represents 3 Points: History of DVT/PE Thrombosis Risk Factor Assessment Total Risk Factor Score: 7 Thrombosis Risk Factor Assessment Level: High Risk Assessment and Plan Assessment: Assessment and plan * Syncopal episode rule out cardiac etiology, possible cardiac arrest status post CPR return of spontaneous circulation * Multifocal pneumonia * Urinary tract infection * Paroxysmal atrial fibrillation * Chronic congestive heart failure systolic dysfunction not in exacerbation * History of CVA * History of DVT and pulmonary embolism * Chronic kidney disease stage III * Diabetes mellitus with neuropathy and nephropathy * History of hypertension * In regards to syncopal episode, and loss of bowel seen by cardiology. We will continue to monitor workup initiated including troponins which were negative * In regards to pneumonia continue patient on Zosyn and vancomycin will de- escalate depending on clinical course * In regards to urinary tract infection, follow up on urine cultures continue Zosyn * In regards to atrial fibrillation continue metoprolol 102 * In regards to congestive heart failure continue patient on IV Lasix, continue to monitor intake and output * In regards to chronic kidney disease follow-up on renal profile while receiving Lasix * CODE STATUS is full code
--- NOTE | 2022-12-28 14:05 | CA ---
Transthoracic Echo Report Name: Uma Oconnell Age: 67 Gender: F : 1955 Exam Date: 12/28/2022 08:46 Exam Location: [place] [facility] Ht (in): 66 Wt (lb): 350 Ordering Physician: Arvind Mcmanus MD ([id number]) Attending/Referring Phys: Marietta MEADE [employer] Supervisor Maria Huynh RDCS Procedure CPT: Indications: Post Cardiac Arrest, syncope Cardiac Hx: Technical Quality: Technically difficult study Contrast 1: Lumason Total Dose (mL): 3 Contrast 2: Total Dose (mL): MEASUREMENTS (Male / Female) Normal Values 2D ECHO LV Diastolic Diameter PLAX 5.3 cm 4.2 - 5.9 / 3.9 - 5.3 cm LV Systolic Diameter PLAX 3.9 cm IVS Diastolic Thickness 1.2 cm 0.6 - 1.0 / 0.6 - 0.9 cm LVPW Diastolic Thickness 1.3 cm 0.6 - 1.0 / 0.6 - 0.9 cm LV Relative Wall Thickness 0.5 RV Internal Dim ED PLAX 2.6 cm LV Diastolic Volume MOD BP 83.7 cm??? 67 - 155 / 56 - 104 cm??? LV Systolic Volume MOD BP 47.4 cm??? 22 - 58 / 19 - 49 cm??? LV Ejection Fraction MOD BP 43.4 % >= 55 % LV Cardiac Index MOD BP 1018.7 cm???/min???m??? LV Diastolic Volume MOD 4C 97.5 cm??? LV Systolic Volume MOD 4C 59.0 cm??? LV Ejection Fraction MOD 4C 39.5 % LV Cardiac Index MOD 4C 1077.8 cm???/min???m??? LV Diastolic Length 4C 6.9 cm LV Systolic Length 4C 6.3 cm LV Diastolic Volume MOD 2C 71.4 cm??? LV Systolic Volume MOD 2C 39.1 cm??? LV Ejection Fraction MOD 2C 45.2 % LV Cardiac Index MOD 2C 902.7 cm???/min???m??? LV Diastolic Length 2C 6.7 cm LV Systolic Length 2C 6.2 cm M-MODE Aortic Root Diameter MM 3.6 cm MV E Point Septal Separation 1.4 cm AV Cusp Separation MM 1.8 cm DOPPLER AV Peak Velocity 184.6 cm/s AV Peak Gradient 13.6 mmHg MV Area PHT 4.0 cm??? Mitral E Point Velocity 100.8 cm/s Mitral A Point Velocity 87.5 cm/s Mitral E to A Ratio 1.2 MV Deceleration Time 191.4 ms MV E' Velocity 8.4 cm/s Mitral E to MV E' Ratio 12.0 TR Peak Velocity 332.5 cm/s TR Peak Gradient 44.2 mmHg Right Ventricular Systolic Press 48.5 mmHg FINDINGS Left Ventricle Left ventricular ejection fraction is estimated at 45-50 %. Mildly increased septal wall thickness. Moderately increased posterior wall thickness. Mildly decreased left ventricular ejection fraction. Right Ventricle Normal right ventricular size. Moderate pulmonary hypertension. Right Atrium Right atrium not well visualized. Left Atrium Left atrium not well visualized. Mitral Valve Mitral valve not well visualized. Mild mitral regurgitation. Aortic Valve Aortic valve not well visualized. No aortic valve stenosis or regurgitation. Tricuspid Valve Tricuspid valve not well visualized. Mild tricuspid regurgitation. Pulmonic Valve Pulmonic valve not well visualized. No pulmonic regurgitation. Pericardium Small lateral pericardial effusion. Aorta Normal size aortic root and proximal ascending aorta. CONCLUSIONS Mild to moderate LV dysfunction with an ejection fraction of 45% Moderate pulmonary hypertension Mild mitral and tricuspid regurgitation Small pericardial effusion Previewed by: Dr. Arvind Mcmanus MD (Electronically Signed) Final Date: 28 December 2022 14:04
[2022-12-28] MEDS: VANCOMYCIN 2,250 MG in SODIUM CHLORIDE 0.9% 500 ML 500 ML IVPB SCH (16:03)
[2022-12-28 16:06] LABS: Glucose,Whole Blood 174 mg/dL (70-110)
[2022-12-28] MEDS: ALBUTEROL NEBULIZED 2.5 MG/3 ML INHALATION PRN ×2 (16:48→20:06)
[2022-12-28 20:04] LABS: Glucose,Whole Blood 200 mg/dL (70-110)
[2022-12-28] MEDS ORDERED: FUROSEMIDE 10 MG/ML 4 ML VIAL IV SCH (21:00)
[2022-12-28] MEDS: ATORVASTATIN 80 MG TAB PO SCH (21:08)
[2022-12-28] MEDS: MONTELUKAST 10 MG TAB PO SCH (21:08)
[2022-12-28] MEDS: MELATONIN 5 MG TABLET PO SCH (21:08)
[2022-12-29 04:44] LABS: Anisocytosis Slight; HCT 24.2 % (34.0-46.0); HGB 7.3 gm/dL (11.4-16.0); Hypochromasia Marked; MCH 24.6 pg (25.0-35.0); MCHC 30.1 g/dL (31.0-37.0); MCV 81.7 fL (80.0-100.0); Mean Platelet Volume 6.7; Microcytosis Slight; Platelet Count 169 k/uL (150-450); Poikilocytosis Slight; RBC 2.97 m/uL (3.80-5.40); WBC 8.3 k/uL (3.8-10.6)
[2022-12-29 05:01] LABS: African American GFR (CKD) 59 (>60 ml/min/1.73 sqM); Anion Gap 4 mmol/L; Blood Urea Nitrogen 19 mg/dL (7-17); C Reactive Protein 3.9 mg/dL (<1.0); Calcium 7.8 mg/dL (8.4-10.2); Carbon Dioxide 35 mmol/L (22-30); Chloride 94 mmol/L (98-107); Glucose 143 mg/dL (74-99); Non-African American GFR(CKD) 51 (>60 ml/min/1.73 sqM); Potassium 3.7 mmol/L (3.5-5.1); Sodium 133 mmol/L (137-145)
[2022-12-29] MEDS ORDERED: Potassium Replacement Protocol 1 EACH MISC MISCELLANE PRN (06:26)
--- NOTE | 2022-12-29 06:45 | XR ---
EXAMINATION TYPE: XR chest 1V portable DATE OF EXAM: 12/29/2022 CLINICAL HISTORY: Difficulty breathing and CHF progress study. TECHNIQUE: Single AP portable semiupright view of the chest is obtained. COMPARISON: Chest x-ray from one day earlier and older studies FINDINGS: Persistent cardiomegaly. Persistent multifocal increased opacities greatest in the lateral left mid to lower lung. No pleural effusion or pneumothorax is evident. Degenerative changes bilater al shoulders redemonstrated. IMPRESSION: Cardiomegaly with bilateral multifocal opacities remains present. No significant change f rom one day earlier.
[2022-12-29 06:56] LABS: Glucose,Whole Blood 172 mg/dL (70-110)
[2022-12-29] MEDS ORDERED: POTASSIUM CHLORIDE ER 20 MEQ TAB.ER PO SCH (07:00)
[2022-12-29] MEDS: ACETAMINOPHEN TAB 325 MG TAB PO PRN ×3 (07:00→19:48)
[2022-12-29] MEDS: PIPERACILLIN-TAZOBACTAM 3.375 GM in SODIUM CHLORIDE 0.9% 100 ML IVPB SCH ×3 (07:01→20:30)
[2022-12-29] MEDS: LEVOTHYROXINE 125 MCG TAB PO SCH (07:01)
[2022-12-29] MEDS: PANTOPRAZOLE 40 MG TABLET PO SCH (07:01)
[2022-12-29] MEDS: VANCOMYCIN 2,250 MG in SODIUM CHLORIDE 0.9% 500 ML 500 ML IVPB SCH ×2 (07:27→22:51)
[2022-12-29] MEDS: INSULIN ASPART (NovoLOG) 100 UNIT/ML VIAL SQ SCH ×4 (07:28→20:31)
[2022-12-29] MEDS: ALBUTEROL NEBULIZED 2.5 MG/3 ML INHALATION PRN ×4 (08:31→20:33)
--- NOTE | 2022-12-29 09:34 | PN ---
PROGRESS NOTE SUBJECTIVE: Uma is a 67-year-old lady who is admitted to hospital with cardiac arrest, doing well and is free of any new symptoms. Remains in normal sinus rhythm and is hemodynamically stable. Currently on aspirin, Lipitor, Lasix 40 mg IV q.12, Toprol-XL 50 mg daily, and Xarelto 10 mg daily. PHYSICAL EXAMINATION: GENERAL: Comfortable at rest. VITAL SIGNS: Stable. CHEST: Diminished air entry at the bases. HEART: First and second heart sounds. No gallop. ABDOMEN: Soft. EXTREMITIES: Bilateral pitting edema. LABORATORY DATA: Labs show a hemoglobin of 7.3. Potassium is 3.7, creatinine is 1.1. ASSESSMENT AND PLAN: syncope with negative cardiac workup so far. Reviewed echo findings. I will continue her on her current medications. She has chronic systolic heart failure with significant leg edema. I am going to continue the IV Lasix for today. MMODL / IJN: [id number] /
[2022-12-29] MEDS: ASPIRIN 81 MG PO SCH (09:47)
[2022-12-29] MEDS: RIVAROXABAN 10 MG TAB PO SCH (09:47)
[2022-12-29] MEDS: METOPROLOL SUCCINATE (ER) 50 MG TAB.ER.24H PO SCH (09:47)
[2022-12-29] MEDS: CYANOCOBALAMIN 500 MCG TAB PO SCH (09:47)
[2022-12-29] MEDS: ISOSORBIDE MONONITRATE ER 30 MG TAB.ER.24H PO SCH (09:47)
[2022-12-29] MEDS: DULoxetine HCL 30 MG CAPSULE.DR PO SCH ×2 (09:47→20:31)
[2022-12-29] MEDS: FUROSEMIDE 10 MG/ML 4 ML VIAL IV SCH ×2 (09:48→20:31)
[2022-12-29] MEDS: busPIRone HCl 10 MG TAB PO SCH ×2 (09:48→20:31)
[2022-12-29] MEDS: allopurinoL 100 MG TAB PO SCH (09:48)
--- NOTE | 2022-12-29 10:56 | P.PN ---
Subjective Progress Note Date: 12/29/22 Principal diagnosis: Cardiac arrest This is a 67-year-old female, [facility] resident, known history of multiple medical problems including chronic atrial fibrillation, asthma, coronary artery disease and previous stent placement, chronic congestive heart failure, history of CVA/TIA history of degenerative joint disease, recent history of urinary tract infection and pyelonephritis with hydronephrosis. 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 Patient had a witnessed syncopal episode while at the [facility], patient went unresponsive as the nursing staff were transferring the patient back to her bed for bedtime. Again the patient underwent 3 rounds of CPR and obtained return of spontaneous circulation. No shocks were given. No medications were given. Patient had basically on the 3 rounds of CPR. When EMS arrived, the patient was responsive, but she couldn't remember the incident, and she appeared to be alert and oriented 3 at the time. Patient was noted to have difficulty breathing, but she had no chest pain, no abdominal pain, no nausea, no vomiting. Patient was brought into the ER, and again did not require intubation or mechanical ventilation, patient was placed on BiPAP initially. ABG showed a pO2 of 100 pCO2 67 pH of 7.28 she was later transitioned to 4 L nasal cannula. Workup also included CT of the brain which came back negative CT abdomen and pelvis negative chest x-ray showed evidence of bilateral opacities, it is difficult to tell whether the findings are findings of aspiration pneumonia or could be related to ongoing chronic congestive heart failure. BNP level was not elevated. Pro-calcitonin level is pending. Patient does seem to have an infected urine with pyuria and bacteriuria noted in the urinalysis. Basic metabolic profile was noted to be normal lactic acid this morning is 1.2, it was 2.9 on admission. WBC count 15.5 hemoglobin 8.4. Co nsidering the findings on chest x-ray, patient was kept on vancomycin and Zosyn empirically. Patient is also on Lasix 40 mg IV push every 12 hours, and she is chronically on Xarelto which will remain the same. Patient does have previous history of DVT and pulmonary embolism as well as chronic atrial fibrillation. Reevaluated today on 12/29/2022, patient remains in the ICU. Patient is doing better today, she is on 3 L nasal cannula she was on BiPAP last night with IPAP of 14 and EPAP of 6 FiO2 40%. She did improve with Lasix 40 mg IV push every 12 hours she is also receiving antibiotics empirically, blood cultures positive for gram-positive cocci. Patient is -2.3 L over the last 24 hours. Again her chest x-ray is showing improvement and clinically the patient is feeling better and she is down to 3 L nasal cannula. Blood cultures are preliminary positive for gram-positive cocci. Final report is pending WBC count is 8.3 hemoglobin 7.3 Electrolytesenc normal bicarb is 35 BUN is 19 and creatinine 1.11. Chest x-ray is showing definite improvement in her multifocal infiltrates/interstitial edema. Objective - Vital Signs Vital signs: Vital Signs Temp 98.2 F 12/29/22 08:00 Pulse 73 12/29/22 10:00 Resp 16 12/29/22 09:00 BP 123/50 12/29/22 09:00 Pulse Ox 98 12/29/22 08:33 FiO2 40 12/29/22 06:12 Intake & Output 12/28/22 12/29/22 12/29/22 18:59 06:59 18:59 Intake Total 1580 240 860 Output Total 2485 1715 250 Balance -905 -1475 610 Weight 135.6 kg Intake: IV 840 240 620 0.9 @ KVO 240 240 20 Piperacillin-Tazobactam 3 100 100 .375 gm In Sodium Chloride 0.9% 100 ml @ 25 mls/hr IVPB Q8H [facility] Rx#: [id number] Vancomycin 2,250 mg In 500 500 Sodium Chloride 0.9% 500 ml 500 ml @ 167 mls/hr IVPB Q16H [facility] Rx#: [id number] Oral 740 240 Output: Urine 2485 1715 250 Other: Voiding Method Indwelling Catheter Indwelling Catheter Indwelling Catheter # Bowel Movements 0 - Exam GENERAL: Revealed a 67-year-old female, morbidly obese, on 3 L nasal cannula HEENT: Pupils are round and equally reacting to light. EOMI. No scleral icterus. No conjunctival pallor. Normocephalic, atraumatic. No pharyngeal erythema. No thyromegaly. CARDIOVASCULAR: S1 and S2 present. No murmurs, rubs, or gallops. PULMONARY: Crackles at the bases, no rhonchi no wheezes. ABDOMEN: Morbidly obese, Soft, nontender, nondistended, normoactive bowel sounds. No palpable organomegaly. MUSCULOSKELETAL: No joint swelling or deformity. EXTREMITIES: No cyanosis, clubbing, 2+ bipedal edema. NEUROLOGICAL: Gross neurological examination did not reveal any focal deficits. SKIN: No rashes - Labs CBC & Chem 7: 12/29/22 04:29 12/29/22 04:29 Labs: Abnormal Lab Results - Last 24 Hours (Table) 12/28/22 12/28/22 12/28/22 Range/Units 11:25 16:05 20:03 RBC (3.80-5.40) m/uL Hgb (11.4-16.0) gm/dL Hct (34.0-46.0) % MCH (25.0-35.0) pg MCHC (31.0-37.0) g/dL RDW (11.5-15.5) % Sodium (137-145) mmol/L Chloride (98-107) mmol/L Carbon Dioxide (22-30) mmol/L BUN (7-17) mg/dL Creatinine (0.52-1.04) mg/dL Glucose (74-99) mg/dL POC Glucose (mg/dL) 203 H 174 H 200 H (70-110) mg/dL Calcium (8.4-10.2) mg/dL C-Reactive Protein (<1.0) mg/dL 12/29/22 12/29/22 12/29/22 Range/Units 04:29 04:29 06:55 RBC 2.97 L (3.80-5.40) m/uL Hgb 7.3 L (11.4-16.0) gm/dL Hct 24.2 L (34.0-46.0) % MCH 24.6 L (25.0-35.0) pg MCHC 30.1 L (31.0-37.0) g/dL RDW 19.0 H (11.5-15.5) % Sodium 133 L (137-145) mmol/L Chloride 94 L (98-107) mmol/L Carbon Dioxide 35 H (22-30) mmol/L BUN 19 H (7-17) mg/dL Creatinine 1.11 H (0.52-1.04) mg/dL Glucose 143 H (74-99) mg/dL POC Glucose (mg/dL) 172 H (70-110) mg/dL Calcium 7.8 L (8.4-10.2) mg/dL C-Reactive Protein 3.9 H (<1.0) mg/dL Microbiology - Last 24 Hours (Table) 12/27/22 22:03 Blood Culture Gram Stain - Preliminary Blood Assessment and Plan Assessment: Impression: Witnessed syncope, possible cardiac arrest, status post CPR for 5 minutes with return of spontaneous circulation. Acute hypoxic and hypercapnic respiratory failure secondary to above Suspect aspiration pneumonia Suspect acute on Chronic systolic congestive heart failure ejection fraction of 35-40%, with superimposed pneumonia Chronic atrial fibrillation Chronic urinary tract infection Morbid obesity, BMI of 45.7 History of underlying coronary artery disease History of CVA/TIA Benign essential hypertension Dyslipidemia Degenerative joint disease Hypothyroidism Fibromyalgia History of DVT and pulmonary embolism Chronic kidney disease stage III Diabetic neuropathy and nephropathy History of hypertension Gram-positive bacteremia, final report is pending Recommendation: Continue oxygen and titrate accordingly Continue BiPAP as needed Transfer patient out of the ICU to a monitoring and evaluation advisor bed Continue antibiotics empirically patient is now on vancomycin and Zosyn Cultures are pending Continue Xarelto GI prophylaxis. Continue cardiac meds for her underlying cardiomyopathy and LV dysfunction Continue to monitor electrolytes and kidney status Repeat chest x-ray in 24 hours and continue diuretics We will continue to follow. Time with Patient: Less than 30
[2022-12-29 11:17] LABS: Glucose,Whole Blood 184 mg/dL (70-110)
--- NOTE | 2022-12-29 12:06 | P.PN ---
Subjective Progress Note Date: 12/29/22 * 67-year-old lady with past medical history significant for atrial fibrillation, coronary artery disease, congestive heart failure, diabetes mellitus, hyperlipidemia, history of pulmonary embolism, history of CVA presented to the emergency department sent in for a witnessed episode of syncope. Patient was unresponsive per nursing staff could not feel a pulse in the started CPR. 3 rounds of CPR was done. Patient was not given shocks or medications. Patient just had chest compressions done * 1 EMS arrived patient was alert and responsive. However could not remember the incident * Workup initiated in ER showed CT head that was negative, CT abdomen and pelvis was negative. Chest x-ray was done which showed multifocal opacities. * CBC obtained showed elevated white cell count with left shift. Basic metabolic panel showed sodium of 136 potassium 4.6, potassium 34 BUN 19 creatinine 0.95. Troponin obtained negative. * 12/29: Patient seen and evaluated at bedside. Patient remains in ICU for byp ass of the night. [place] BiPAP through the night continue patient on oxygen supplementation. Chest x-ray does show focal infiltrates. Blood cultures show coagulase-negative staph likely contamination Objective - Vital Signs Vital signs: Vital Signs Temp 98.2 F 12/29/22 08:00 Pulse 73 12/29/22 10:00 Resp 16 12/29/22 09:00 BP 123/50 12/29/22 09:00 Pulse Ox 98 12/29/22 08:33 FiO2 40 12/29/22 06:12 Intake & Output 12/28/22 12/29/22 12/29/22 18:59 06:59 18:59 Intake Total 1580 240 860 Output Total 2485 1715 400 Balance -905 -1475 460 Weight 135.6 kg Intake: IV 840 240 620 0.9 @ KVO 240 240 20 Piperacillin-Tazobactam 3 100 100 .375 gm In Sodium Chloride 0.9% 100 ml @ 25 mls/hr IVPB Q8H [facility] Rx#: [id number] Vancomycin 2,250 mg In 500 500 Sodium Chloride 0.9% 500 ml 500 ml @ 167 mls/hr IVPB Q16H [facility] Rx#: [id number] Oral 740 240 Output: Urine 2485 1715 400 Other: Voiding Method Indwelling Catheter Indwelling Catheter Indwelling Catheter # Bowel Movements 0 - Exam PHYSICAL EXAMINATION: GENERAL: The patient is alert and oriented x3, nasal cannula in place HEENT: Pupils are round and equally reacting to light. EOMI CARDIOVASCULAR: S1 and S2 present. No murmurs, rubs, or gallops. PULMONARY: Chest is clear to auscultation, no wheezing or crackles. ABDOMEN: Soft, nontender, nondistended, normoactive bowel sounds. No palpable organomegaly. MUSCULOSKELETAL: No joint swelling or deformity. EXTREMITIES: Bilateral leg edema NEUROLOGICAL: Gross neurological examination did not reveal any focal deficits. SKIN: No rashes. - Labs CBC & Chem 7: 12/29/22 04:29 12/29/22 04:29 Labs: Abnormal Lab Results - Last 24 Hours (Table) 12/28/22 12/28/22 12/29/22 Range/Units 16:05 20:03 04:29 RBC (3.80-5.40) m/uL Hgb (11.4-16.0) gm/dL Hct (34.0-46.0) % MCH (25.0-35.0) pg MCHC (31.0-37.0) g/dL RDW (11.5-15.5) % Sodium 133 L (137-145) mmol/L Chloride 94 L (98-107) mmol/L Carbon Dioxide 35 H (22-30) mmol/L BUN 19 H (7-17) mg/dL Creatinine 1.11 H (0.52-1.04) mg/dL Glucose 143 H (74-99) mg/dL POC Glucose (mg/dL) 174 H 200 H (70-110) mg/dL Calcium 7.8 L (8.4-10.2) mg/dL C-Reactive Protein 3.9 H (<1.0) mg/dL 12/29/22 12/29/22 12/29/22 Range/Units 04:29 06:55 11:16 RBC 2.97 L (3.80-5.40) m/uL Hgb 7.3 L (11.4-16.0) gm/dL Hct 24.2 L (34.0-46.0) % MCH 24.6 L (25.0-35.0) pg MCHC 30.1 L (31.0-37.0) g/dL RDW 19.0 H (11.5-15.5) % Sodium (137-145) mmol/L Chloride (98-107) mmol/L Carbon Dioxide (22-30) mmol/L BUN (7-17) mg/dL Creatinine (0.52-1.04) mg/dL Glucose (74-99) mg/dL POC Glucose (mg/dL) 172 H 184 H (70-110) mg/dL Calcium (8.4-10.2) mg/dL C-Reactive Protein (<1.0) mg/dL Microbiology - Last 24 Hours (Table) 12/27/22 22:03 Blood Culture Gram Stain - Preliminary Blood Blood Culture - Preliminary Coagulase Negative Staph 12/27/22 22:03 Blood Culture Gram Stain - Preliminary Blood Blood Culture - Preliminary Coagulase Negative Staph Assessment and Plan Assessment: Assessment and plan * Syncopal episode rule out cardiac etiology, possible cardiac arrest status post CPR return of spontaneous circulation * Multifocal pneumonia * Urinary tract infection * Sepsis secondary to above * Paroxysmal atrial fibrillation * Chronic congestive heart failure systolic dysfunction not in exacerbation * History of CVA * History of DVT and pulmonary embolism * Chronic kidney disease stage III * Diabetes mellitus with neuropathy and nephropathy * History of hypertension * In regards to syncopal episode, seen by cardiology, troponin obtained negative echocardiogram shows ejection fraction of 45%. * In regards to pneumonia continue patient on Zosyn and vancomycin will de- escalate depending on clinical course * In regards to urinary tract infection, follow up on urine cultures continue Zosyn * In regards to sepsis, blood cultures show contamination continue broad- spectrum antibiotics * In regards to atrial fibrillation continue metoprolol , xarelto * In regards to congestive heart failure continue patient on IV Lasix, continue to monitor intake and output * In regards to chronic kidney disease follow-up on renal profile while receiving Lasix * CODE STATUS is full code
[2022-12-29 16:25] LABS: Glucose,Whole Blood 231 mg/dL (70-110)
[2022-12-29 20:00] LABS: Glucose,Whole Blood 239 mg/dL (70-110)
[2022-12-29] MEDS: MELATONIN 5 MG TABLET PO SCH (20:31)
[2022-12-29] MEDS: MONTELUKAST 10 MG TAB PO SCH (20:31)
[2022-12-29] MEDS: ATORVASTATIN 80 MG TAB PO SCH (20:31)
[2022-12-30 04:38] LABS: African American GFR (CKD) 61 (>60 ml/min/1.73 sqM); Anion Gap 5 mmol/L; Blood Urea Nitrogen 20 mg/dL (7-17); Calcium 7.6 mg/dL (8.4-10.2); Carbon Dioxide 34 mmol/L (22-30); Chloride 94 mmol/L (98-107); Glucose 130 mg/dL (74-99); Non-African American GFR(CKD) 53 (>60 ml/min/1.73 sqM); Potassium 3.6 mmol/L (3.5-5.1); Sodium 133 mmol/L (137-145)
[2022-12-30 04:57] LABS: Anisocytosis Slight; HCT 24.1 % (34.0-46.0); HGB 7.4 gm/dL (11.4-16.0); Hypochromasia Marked; MCH 25.3 pg (25.0-35.0); MCHC 30.5 g/dL (31.0-37.0); MCV 82.9 fL (80.0-100.0); Mean Platelet Volume 7.7; Microcytosis Slight; Platelet Count 150 k/uL (150-450); Poikilocytosis Slight; RBC 2.91 m/uL (3.80-5.40); RDW 18.6 % (11.5-15.5); WBC 8.4 k/uL (3.8-10.6)
[2022-12-30] MEDS ORDERED: POTASSIUM CHLORIDE ER 20 MEQ TAB.ER PO SCH (05:00)
[2022-12-30] MEDS: PANTOPRAZOLE 40 MG TABLET PO SCH (06:09)
[2022-12-30] MEDS: PIPERACILLIN-TAZOBACTAM 3.375 GM in SODIUM CHLORIDE 0.9% 100 ML IVPB SCH ×2 (06:09→23:34)
[2022-12-30] MEDS: LEVOTHYROXINE 125 MCG TAB PO SCH (06:09)
[2022-12-30] MEDS: ACETAMINOPHEN TAB 325 MG TAB PO PRN ×3 (06:19→23:37)
[2022-12-30] MEDS: INSULIN ASPART (NovoLOG) 100 UNIT/ML VIAL SQ SCH ×4 (06:23→20:33)
[2022-12-30 06:24] LABS: Glucose,Whole Blood 169 mg/dL (70-110)
--- NOTE | 2022-12-30 08:01 | XR ---
EXAMINATION TYPE: XR chest 1V DATE OF EXAM: 12/30/2022 5:54 AM CLINICAL INDICATION:Female, 67 years old with history of SOB; [facility] COMPARISON: Chest radiograph from one day prior. TECHNIQUE: XR chest 1V Frontal view of the chest. FINDINGS: Lungs/Pleura: There is no evidence of pleural effusion, focal consolidation, or pneumothorax. Pulmonary vascularity: Pulmonary vascular congestion. Heart/mediastinum: Cardiomediastinal silhouette is enlarged and stable. Musculoskeletal: No acute osseous pathology. IMPRESSION: Cardiomegaly and mild pulmonary vascular congestion. Correlate with BNP for congestive heart failure.
--- NOTE | 2022-12-30 09:32 | P.PN ---
Subjective Progress Note Date: 12/30/22 The patient is a 67-year-old female with multiple comorbid conditions who presented to the hospital with an episode of syncope. The patient was transitioning between chairs at the long-term, when she lost consciousness and fell. Echocardiogram reveals LV function of 45% with moderate pulmonary hypertension. CT of the chest showed right lower lobe pneumonia with consolidation the bilateral upper lungs. BNP mildly elevated. GENERAL: Ill-appearing, obese female and in no acute distress. NECK: Supple without JVD or thyromegaly. LUNGS: Breath sounds diminished to auscultation bilaterally. Respiration equal and unlabored. Fine crackles at the bases HEART: Regular rate and rhythm without murmurs, rubs or gallops. S1 and S2 heard. EXTREMITIES: Normal range of motion, generalized edema. No clubbing or cyanosis. Peripheral pulses intact and strong. TELEMETRY: Sinus rhythm LABS: WBC 8.4, hemoglobin 7.4, hematocrit 24.1, platelet 150, sodium 133, potassium 3.6, BUN 20, creatinine 1.06 IMPRESSION: Syncope and collapse Paroxysmal atrial fibrillation Chronic systolic heart failure Anemia PLAN: Continue IV Lasix Aggressive pulmonary hygiene Patient may be transferred to [facility]. from the cardiac standpoint Further recommendations to be based on clinical course I am dictating on behalf of Dr Pradeep Taylor's history/physical and assessment/plan. Objective - Vital Signs Vital signs: Vital Signs Temp 98.0 F 12/30/22 04:00 Pulse 65 12/30/22 04:00 Resp 14 12/30/22 04:00 BP 105/39 12/30/22 04:00 Pulse Ox 95 12/30/22 04:00 FiO2 40 12/30/22 08:00 Intake & Output 12/29/22 12/30/22 12/30/22 18:59 06:59 18:59 Intake Total 1480 Output Total 2425 1465 Balance -945 -1465 Weight 134.2 kg Intake: IV 740 0.9 @ KVO 40 Piperacillin-Tazobactam 3 200 .375 gm In Sodium Chloride 0.9% 100 ml @ 25 mls/hr IVPB Q8H [facility] Rx#: [id number] Vancomycin 2,250 mg In 500 Sodium Chloride 0.9% 500 ml 500 ml @ 167 mls/hr IVPB Q16H [facility] Rx#: [id number] Oral 740 Output: Urine 2425 1465 Other: Voiding Method Indwelling Catheter Indwelling Catheter # Bowel Movements 0 - Labs CBC & Chem 7: 12/30/22 03:48 12/30/22 03:48 Labs: Abnormal Lab Results - Last 24 Hours (Table) 12/29/22 12/29/22 12/29/22 Range/Units 04:29 11:16 16:22 RBC (3.80-5.40) m/uL Hgb (11.4-16.0) gm/dL Hct (34.0-46.0) % MCHC (31.0-37.0) g/dL RDW (11.5-15.5) % Sodium (137-145) mmol/L Chloride (98-107) mmol/L Carbon Dioxide (22-30) mmol/L BUN (7-17) mg/dL Creatinine (0.52-1.04) mg/dL Glucose (74-99) mg/dL POC Glucose (mg/dL) 184 H 231 H (70-110) mg/dL Hemoglobin A1c 6.5 H (<=6.0) % Calcium (8.4-10.2) mg/dL 12/29/22 12/30/22 12/30/22 Range/Units 19:58 03:48 03:48 RBC 2.91 L (3.80-5.40) m/uL Hgb 7.4 L (11.4-16.0) gm/dL Hct 24.1 L (34.0-46.0) % MCHC 30.5 L (31.0-37.0) g/dL RDW 18.6 H (11.5-15.5) % Sodium 133 L (137-145) mmol/L Chloride 94 L (98-107) mmol/L Carbon Dioxide 34 H (22-30) mmol/L BUN 20 H (7-17) mg/dL Creatinine 1.08 H (0.52-1.04) mg/dL Glucose 130 H (74-99) mg/dL POC Glucose (mg/dL) 239 H (70-110) mg/dL Hemoglobin A1c (<=6.0) % Calcium 7.6 L (8.4-10.2) mg/dL 12/30/22 Range/Units 06:22 RBC (3.80-5.40) m/uL Hgb (11.4-16.0) gm/dL Hct (34.0-46.0) % MCHC (31.0-37.0) g/dL RDW (11.5-15.5) % Sodium (137-145) mmol/L Chloride (98-107) mmol/L Carbon Dioxide (22-30) mmol/L BUN (7-17) mg/dL Creatinine (0.52-1.04) mg/dL Glucose (74-99) mg/dL POC Glucose (mg/dL) 169 H (70-110) mg/dL Hemoglobin A1c (<=6.0) % Calcium (8.4-10.2) mg/dL Microbiology - Last 24 Hours (Table) 12/27/22 23:06 Urine Culture - Final Urine,Catheterized 12/27/22 22:03 Blood Culture Gram Stain - Preliminary Blood Blood Culture - Preliminary Coagulase Negative Staph 12/27/22 22:03 Blood Culture Gram Stain - Preliminary Blood Blood Culture - Preliminary Coagulase Negative Staph
[2022-12-30] MEDS: ISOSORBIDE MONONITRATE ER 30 MG TAB.ER.24H PO SCH (09:53)
[2022-12-30] MEDS: CYANOCOBALAMIN 500 MCG TAB PO SCH (09:53)
[2022-12-30] MEDS: FUROSEMIDE 10 MG/ML 4 ML VIAL IV SCH ×2 (09:53→20:33)
[2022-12-30] MEDS: ASPIRIN 81 MG PO SCH (09:53)
[2022-12-30] MEDS: allopurinoL 100 MG TAB PO SCH (09:53)
[2022-12-30] MEDS: DULoxetine HCL 30 MG CAPSULE.DR PO SCH ×2 (09:53→20:48)
[2022-12-30] MEDS: busPIRone HCl 10 MG TAB PO SCH ×2 (09:53→21:23)
[2022-12-30] MEDS: RIVAROXABAN 10 MG TAB PO SCH (09:54)
[2022-12-30] MEDS: METOPROLOL SUCCINATE (ER) 50 MG TAB.ER.24H PO SCH (09:54)
[2022-12-30] MEDS: LORATADINE 10 MG TAB PO PRN (10:51)
[2022-12-30] MEDS: ALBUTEROL NEBULIZED 2.5 MG/3 ML INHALATION PRN ×2 (11:09→21:13)
[2022-12-30 11:17] LABS: Glucose,Whole Blood 192 mg/dL (70-110)
--- NOTE | 2022-12-30 11:56 | P.PN ---
Subjective Progress Note Date: 12/30/22 This is a 67-year-old female, [facility] resident, known history of multiple medical problems including chronic atrial fibrillation, asthma, coronary artery disease and previous stent placement, chronic congestive heart failure, history of CVA/TIA history of degenerative joint disease, recent history of urinary tract infection and pyelonephritis with hydronephrosis. 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 Patient had a witnessed syncopal episode while at the [facility], patient went unresponsive as the nursing staff were transferring the patient back to her bed for bedtime. Again the patient underwent 3 rounds of CPR and obtained return of spontaneous circulation. No shocks were given. No medications were given. Patient had basically on the 3 rounds of CPR. When EMS arrived, the patient was responsive, but she couldn't remember the incident, and she appeared to be alert and oriented 3 at the time. Patient was noted to have difficulty breathing, but she had no chest pain, no abdominal pain, no nausea, no vomiting. Patient was brought into the ER, and again did not require intubation or mechanical ventilation, patient was placed on BiPAP initially. ABG showed a pO2 of 100 pCO2 67 pH of 7.28 she was later transitioned to 4 L nasal cannula. Workup also included CT of the brain which came back negative CT abdomen and pelvis negative chest x-ray showed evidence of bilateral opacities, it is difficult to tell whether the findings are findings of aspiration pneumonia or could be related to ongoing chronic congestive heart failure. BNP level was not elevated. Pro-calcitonin level is pending. Patient does seem to have an infected urine with pyuria and bacteriuria noted in the urinalysis. Basic metabolic profile was noted to be normal lactic acid this morning is 1.2, it was 2.9 on admission. WBC count 15.5 hemoglobin 8.4. Considering the findings on chest x-ray, patient was kept on vancomycin and Zosyn empirically. Patient is also on Lasix 40 mg IV push every 12 hours, and she is chronically on Xarelto which will remain the same. Patient does have previous history of DVT and pulmonary embolism as well as chronic atrial fibrillation. Reevaluated today on 12/29/2022, patient remains in the ICU. Patient is doing better today, she is on 3 L nasal cannula she was on BiPAP last night with IPAP of 14 and EPAP of 6 FiO2 40%. She did improve with Lasix 40 mg IV push every 12 hours she is also receiving antibiotics empirically, blood cultures positive for gram-positive cocci. Patient is -2.3 L over the last 24 hours. Again her chest x-ray is showing improvement and clinically the patient is feeling better and she is down to 3 L nasal cannula. Blood cultures are preliminary positive for gram-positive cocci. Final report is pending WBC count is 8.3 hemoglobin 7.3 Electrolytesenc normal bicarb is 35 BUN is 19 and creatinine 1.11. Chest x-ray is showing definite improvement in her multifocal infiltrates/interstitial edema. The patient is seen today 12/30/2022 in follow-up in the intensive care unit. She is currently sitting up in bed. Awake and alert in no acute distress. She is maintaining O2 saturations in the 90s on 2 L/m per nasal cannula. She did utilize BiPAP 14/6 and 40% FiO2 through the night. She has normal saline at KVO. No worsening shortness of breath, cough or congestion. No arrhythmias. White count 8.4. Hemoglobin 7.4. Platelets 150. Sodium 133. Potassium 3.6. Bicarb 34. BUN 20. Creatinine 1.08. Glucose 130. Chest x-ray shows car diomegaly and mild pulmonary vascular congestion. Urine culture reveals no growth. Blood cultures with positive cocci and clusters. Currently on vancomycin and Zosyn. Remains on IV diuretics. Currently in a -2.4 L balance. Anticoagulated with Xarelto. Objective - Vital Signs Vital signs: Vital Signs Temp 97.9 F 12/30/22 08:00 Pulse 68 12/30/22 11:20 Resp 18 12/30/22 11:20 BP 124/63 12/30/22 08:00 Pulse Ox 92 L 12/30/22 08:00 FiO2 40 12/30/22 08:00 Intake & Output 12/29/22 12/30/22 12/30/22 18:59 06:59 18:59 Intake Total 1480 Output Total 3244 8955 Balance -945 -1465 Weight 134.2 kg Intake: IV 740 0.9 @ KVO 40 Piperacillin-Tazobactam 3 200 .375 gm In Sodium Chloride 0.9% 100 ml @ 25 mls/hr IVPB Q8H [facility] Rx#: [id number] Vancomycin 2,250 mg In 500 Sodium Chloride 0.9% 500 ml 500 ml @ 167 mls/hr IVPB Q16H [facility] Rx#: [id number] Oral 740 Output: Urine 2425 1465 Other: Voiding Method Indwelling Catheter Indwelling Catheter Indwelling Catheter # Bowel Movements 0 - Exam GENERAL EXAM: Alert, 67-year-old female, on 2 L nasal cannula alternating with BiPAP, comfortable in no apparent distress. HEAD: Normocephalic. EYES: Normal reaction of pupils, equal size. NOSE: Clear with pink turbinates. THROAT: No erythema or exudates. NECK: No masses, no JVD. CHEST: No chest wall deformity. LUNGS: Equal air entry with crackles in the posterior bases. CVS: S1 and S2 normal with no audible murmur, regular rhythm. ABDOMEN: No hepatosplenomegaly, normal bowel sounds, no guarding or rigidity. SPINE: No scoliosis or deformity SKIN: No rashes CENTRAL NERVOUS SYSTEM: No focal deficits, tone is normal in all 4 extremities. EXTREMITIES: There is 1-2+ peripheral edema. No clubbing, no cyanosis. Peripheral pulses are intact. - Labs CBC & Chem 7: 12/30/22 03:48 12/30/22 03:48 Labs: Abnormal Lab Results - Last 24 Hours (Table) 12/29/22 12/29/22 12/29/22 Range/Units 04:29 16:22 19:58 RBC (3.80-5.40) m/uL Hgb (11.4-16.0) gm/dL Hct (34.0-46.0) % MCHC (31.0-37.0) g/dL RDW (11.5-15.5) % Sodium (137-145) mmol/L Chloride (98-107) mmol/L Carbon Dioxide (22-30) mmol/L BUN (7-17) mg/dL Creatinine (0.52-1.04) mg/dL Glucose (74-99) mg/dL POC Glucose (mg/dL) 231 H 239 H (70-110) mg/dL Hemoglobin A1c 6.5 H (<=6.0) % Calcium (8.4-10.2) mg/dL 12/30/22 12/30/22 12/30/22 Range/Units 03:48 03:48 06:22 RBC 2.91 L (3.80-5.40) m/uL Hgb 7.4 L (11.4-16.0) gm/dL Hct 24.1 L (34.0-46.0) % MCHC 30.5 L (31.0-37.0) g/dL RDW 18.6 H (11.5-15.5) % Sodium 133 L (137-145) mmol/L Chloride 94 L (98-107) mmol/L Carbon Dioxide 34 H (22-30) mmol/L BUN 20 H (7-17) mg/dL Creatinine 1.08 H (0.52-1.04) mg/dL Glucose 130 H (74-99) mg/dL POC Glucose (mg/dL) 169 H (70-110) mg/dL Hemoglobin A1c (<=6.0) % Calcium 7.6 L (8.4-10.2) mg/dL 12/30/22 Range/Units 11:15 RBC (3.80-5.40) m/uL Hgb (11.4-16.0) gm/dL Hct (34.0-46.0) % MCHC (31.0-37.0) g/dL RDW (11.5-15.5) % Sodium (137-145) mmol/L Chloride (98-107) mmol/L Carbon Dioxide (22-30) mmol/L BUN (7-17) mg/dL Creatinine (0.52-1.04) mg/dL Glucose (74-99) mg/dL POC Glucose (mg/dL) 192 H (70-110) mg/dL Hemoglobin A1c (<=6.0) % Calcium (8.4-10.2) mg/dL Microbiology - Last 24 Hours (Table) 12/27/22 23:06 Urine Culture - Final Urine,Catheterized 12/27/22 22:03 Blood Culture Gram Stain - Preliminary Blood Blood Culture - Preliminary Coagulase Negative Staph 12/27/22 22:03 Blood Culture Gram Stain - Preliminary Blood Blood Culture - Preliminary Coagulase Negative Staph Assessment and Plan Assessment: Witnessed syncope, possible cardiac arrest, status post CPR for 5 minutes with return of spontaneous circulation. Acute hypoxic and hypercapnic respiratory failure secondary to above, improved currently on 2 L nasal cannula alternating with BiPAP Suspect aspiration pneumonia and remains on Zosyn Suspect acute on Chronic systolic congestive heart failure ejection fraction of 35-40%, with superimposed pneumonia Chronic atrial fibrillation, anticoagulated with Xarelto Chronic urinary tract infection Morbid obesity, BMI of 45.7 History of underlying coronary artery disease History of CVA/TIA Benign essential hypertension Dyslipidemia Degenerative joint disease Hypothyroidism Fibromyalgia History of DVT and pulmonary embolism Chronic kidney disease stage III Diabetic neuropathy and nephropathy History of hypertension Gram-positive bacteremia, final report is pending Plan: The patient was seen and evaluated Chest x-ray, medications and labs reviewed Blood culture showing gram positive cocci in clusters Continue vancomycin and Zosyn Xarelto for anticoagulation Remains a cardiac stepdown overflow We will continue to follow I have personally seen and examined the patient, performed the documentation and the assessment and plan as written. Number of minutes spent on the visit: 10.
[2022-12-30] MEDS ORDERED: VANCOMYCIN TROUGH DUE 1 EACH MISC MISCELLANE ONE (14:00)
[2022-12-30] MEDS ORDERED: VANCOMYCIN IV PER PHARMACY 1 EACH MISC MISCELLANE PRN (15:40)
[2022-12-30 16:35] LABS: Glucose,Whole Blood 203 mg/dL (70-110)
[2022-12-30] MEDS ORDERED: SENNOSIDES 8.6 MG TAB PO PRN (17:09)
[2022-12-30] MEDS ORDERED: polyethylene glycoL 3350 17 GM POWD.PACK PO PRN (17:09)
[2022-12-30 20:15] LABS: Glucose,Whole Blood 238 mg/dL (70-110)
[2022-12-30] MEDS: ATORVASTATIN 80 MG TAB PO SCH (20:33)
[2022-12-30] MEDS: MELATONIN 5 MG TABLET PO SCH ×2 (20:33→22:47)
[2022-12-30] MEDS: MONTELUKAST 10 MG TAB PO SCH (20:34)
--- NOTE | 2022-12-30 23:50 | P.PN ---
Subjective 67-year-old lady with past medical history significant for atrial fibrillation, coronary artery disease, congestive heart failure, diabetes mellitus, hyperlipidemia, history of pulmonary embolism, history of CVA presented to the emergency department sent in for a witnessed episode of syncope. Patient was unresponsive per nursing staff could not feel a pulse in the started CPR. 3 rounds of CPR was done. Patient was not given shocks or medications. Patient just had chest compressions done 1 EMS arrived patient was alert and responsive. However could not remember the incident workup initiated in ER showed CT head that was negative, CT abdomen and pelvis was negative. Chest x-ray was done which showed multifocal opacities. CBC obtained showed elevated white cell count with left shift. Basic metabolic panel showed sodium of 136 potassium 4.6, potassium 34 BUN 19 creatinine 0.95. Troponin obtained negative. 12/29: Patient seen and evaluated at bedside. Patient remains in ICU for bypass of the night. [place] BiPAP through the night continue patient on oxygen supplementation. Chest x-ray does show focal infiltrates. Blood cultures show coagulase-negative staph likely contamination 12/30/2022 Patient is a pleasant 67 years old female who presents initially tolerated rest respiratory failure suspected secondary to aspiration pneumonia. He is been followed closely by pulmonary and cartilage team. Patient is kept on broad- spectrum antibiotic with the Zosyn antibiotic vancomycin. Also she is given IV Lasix for evidence of heart failure. Activity she is on 2 L oxygen WBC is 24,000, hemoglobin 7.4, creatinine 1.0. Liver enzymes mildly elevated. She is also on home dose of xarelto for A. fib Objective - Vital Signs Vital signs: Vital Signs Temp 97.9 F 12/30/22 08:00 Pulse 68 12/30/22 11:20 Resp 18 12/30/22 11:20 BP 124/63 12/30/22 08:00 Pulse Ox 92 L 12/30/22 08:00 FiO2 40 12/30/22 08:00 Intake & Output 12/29/22 12/30/22 12/30/22 18:59 06:59 18:59 Intake Total 1480 Output Total 7193 0975 Balance -945 -1463 Weight 134.2 kg Intake: IV 740 0.9 @ KVO 40 Piperacillin-Tazobactam 3 200 .375 gm In Sodium Chloride 0.9% 100 ml @ 25 mls/hr IVPB Q8H [facility] Rx#: [id number] Vancomycin 2,250 mg In 500 Sodium Chloride 0.9% 500 ml 500 ml @ 167 mls/hr IVPB Q16H [facility] Rx#: [id number] Oral 740 Output: Urine 2425 1465 Other: Voiding Method Indwelling Catheter Indwelling Catheter Indwelling Catheter # Bowel Movements 0 - Exam GENERAL: The patient is alert and oriented x3, not in any acute distress. Well developed, well nourished. HEENT: Pupils are round and equally reacting to light. EOMI. No scleral icterus. No conjunctival pallor. Normocephalic, atraumatic. No pharyngeal erythema. No thyromegaly. CARDIOVASCULAR: S1 and S2 present. No murmurs, rubs, or gallops. PULMONARY: Chest is clear to auscultation, no wheezing , no crackles. ABDOMEN: Soft, nontender, nondistended, normoactive bowel sounds. No palpable organomegaly. MUSCULOSKELETAL: No joint swelling or deformity. EXTREMITIES: No cyanosis, clubbing, or pedal edema. NEUROLOGICAL: Gross neurological examination did not reveal any focal deficits. SKIN: No rashes. no petechiae. - Labs CBC & Chem 7: 12/30/22 03:48 12/30/22 03:48 Labs: Abnormal Lab Results - Last 24 Hours (Table) 12/29/22 12/29/22 12/30/22 Range/Units 16:22 19:58 03:48 RBC 2.91 L (3.80-5.40) m/uL Hgb 7.4 L (11.4-16.0) gm/dL Hct 24.1 L (34.0-46.0) % MCHC 30.5 L (31.0-37.0) g/dL RDW 18.6 H (11.5-15.5) % Sodium (137-145) mmol/L Chloride (98-107) mmol/L Carbon Dioxide (22-30) mmol/L BUN (7-17) mg/dL Creatinine (0.52-1.04) mg/dL Glucose (74-99) mg/dL POC Glucose (mg/dL) 231 H 239 H (70-110) mg/dL Calcium (8.4-10.2) mg/dL 12/30/22 12/30/22 12/30/22 Range/Units 03:48 06:22 11:15 RBC (3.80-5.40) m/uL Hgb (11.4-16.0) gm/dL Hct (34.0-46.0) % MCHC (31.0-37.0) g/dL RDW (11.5-15.5) % Sodium 133 L (137-145) mmol/L Chloride 94 L (98-107) mmol/L Carbon Dioxide 34 H (22-30) mmol/L BUN 20 H (7-17) mg/dL Creatinine 1.08 H (0.52-1.04) mg/dL Glucose 130 H (74-99) mg/dL POC Glucose (mg/dL) 169 H 192 H (70-110) mg/dL Calcium 7.6 L (8.4-10.2) mg/dL Microbiology - Last 24 Hours (Table) 12/27/22 23:06 Urine Culture - Final Urine,Catheterized 12/27/22 22:03 Blood Culture Gram Stain - Preliminary Blood Blood Culture - Preliminary Coagulase Negative Staph 12/27/22 22:03 Blood Culture Gram Stain - Preliminary Blood Blood Culture - Preliminary Coagulase Negative Staph Assessment and Plan Assessment: Syncope with possible cardiac arrest Acute hypoxic respiratory failure, improving Aspiration pneumonia Acute on chronic systolic CHF, EF 35-40%. Chronic atrial fibrillation on xarelto Plan: Patient currently on IV vancomycin and Zosyn per ICU team IV Lasix 40 mg twice a day Home dose of 0 to Pulmonary/critical care team on the case Cardiology consult Labs and medication were reviewed.. Continue same treatment. Continue with symptomatic treatment. Resume home medication. Monitor labs and vitals. DVT and GI prophylaxis. Further recommendations as per clinical course of the patient DVT prophylaxis: xarelto GI Prophylaxis: Ppi Prognosis is guarded
[2022-12-31 06:17] LABS: Glucose,Whole Blood 147 mg/dL (70-110)
[2022-12-31] MEDS: PANTOPRAZOLE 40 MG TABLET PO SCH (06:17)
[2022-12-31] MEDS: ACETAMINOPHEN TAB 325 MG TAB PO PRN ×2 (06:17→21:13)
[2022-12-31] MEDS: LEVOTHYROXINE 125 MCG TAB PO SCH (06:18)
[2022-12-31 06:42] LABS: African American GFR (CKD) 66 (>60 ml/min/1.73 sqM); Non-African American GFR(CKD) 57 (>60 ml/min/1.73 sqM)
[2022-12-31] MEDS: INSULIN ASPART (NovoLOG) 100 UNIT/ML VIAL SQ SCH ×4 (06:43→21:08)
[2022-12-31] MEDS: allopurinoL 100 MG TAB PO SCH (08:48)
[2022-12-31] MEDS: FUROSEMIDE 10 MG/ML 4 ML VIAL IV SCH ×2 (08:48→21:07)
[2022-12-31] MEDS: PIPERACILLIN-TAZOBACTAM 3.375 GM in SODIUM CHLORIDE 0.9% 100 ML IVPB SCH ×3 (08:48→16:35)
[2022-12-31] MEDS: busPIRone HCl 10 MG TAB PO SCH ×2 (08:50→21:07)
[2022-12-31] MEDS: CYANOCOBALAMIN 500 MCG TAB PO SCH (08:50)
[2022-12-31] MEDS: ASPIRIN 81 MG PO SCH (08:50)
[2022-12-31] MEDS: METOPROLOL SUCCINATE (ER) 50 MG TAB.ER.24H PO SCH (08:52)
[2022-12-31] MEDS: RIVAROXABAN 10 MG TAB PO SCH (08:52)
[2022-12-31] MEDS: DULoxetine HCL 30 MG CAPSULE.DR PO SCH ×2 (08:52→21:08)
[2022-12-31] MEDS: ISOSORBIDE MONONITRATE ER 30 MG TAB.ER.24H PO SCH (08:52)
--- NOTE | 2022-12-31 10:39 | P.PN ---
Subjective Progress Note Date: 12/31/22 The patient is a 67-year-old female with multiple comorbid conditions who presented to the hospital with an episode of syncope. The patient was transitioning [facility] the shelter, when she lost consciousness and fell. Echocardiogram reveals LV function of 45% with moderate pulmonary hypertension. CT of the chest showed right lower lobe pneumonia with consolidation the bilateral upper lungs. BNP mildly elevated. Patient was interviewed and examined and resting comfortably in bed. She states her breathing is gradually improving. GENERAL: Ill-appearing, obese female and in no acute distress. NECK: Supple without JVD or thyromegaly. LUNGS: Breath sounds diminished to auscultation bilaterally. Respiration equal and unlabored. HEART: Irregular rate and rhythm without murmurs, rubs or gallops. S1 and S2 heard. EXTREMITIES: Normal range of motion, generalized edema. No clubbing or cyanosis. Peripheral pulses intact and strong. TELEMETRY: Sinus rhythm with PACs LABS: WBC 8.4, hemoglobin 7.4, hematocrit 24.1, platelet 150, sodium 133, potassium 3.6, BUN 20, creatinine 1.08 IMPRESSION: Syncope and collapse Paroxysmal atrial fibrillation Chronic systolic heart failure Anemia PLAN: Continue diuresis per pulmonology's recommendations Aggressive pulmonary hygiene Further recommendations to be based on clinical course I am dictating on behalf of Dr Pradeep Taylor's history/physical and assessment/plan. Objective - Vital Signs Vital signs: Vital Signs Temp 98 F 12/31/22 08:00 Pulse 74 12/31/22 08:00 Resp 18 12/31/22 08:00 BP 125/62 12/31/22 08:00 Pulse Ox 96 12/31/22 08:00 FiO2 40 12/31/22 07:35 Intake & Output 12/30/22 12/31/22 12/31/22 18:59 06:59 18:59 Intake Total 500 40 Output Total 1900 280 Balance -1400 -240 Weight 132.6 kg Intake: IV 40 0.9 @ KVO 40 Oral 500 Output: Urine 1900 280 Other: Voiding Method Indwelling Catheter Indwelling Catheter Indwelling Catheter # Voids 1 # Bowel Movements 1 - Labs CBC & Chem 7: 12/30/22 03:48 12/31/22 06:13 Labs: Abnormal Lab Results - Last 24 Hours (Table) 12/30/22 12/30/22 12/30/22 Range/Units 03:48 11:15 14:09 POC Glucose (mg/dL) 192 H (70-110) mg/dL Procalcitonin 0.15 H (0.02-0.09) ng/mL Vancomycin Trough 30.7 H* ug/mL 12/30/22 12/30/22 12/31/22 Range/Units 16:34 20:13 06:15 POC Glucose (mg/dL) 203 H 238 H 147 H (70-110) mg/dL Procalcitonin (0.02-0.09) ng/mL Vancomycin Trough ug/mL Microbiology - Last 24 Hours (Table) 12/27/22 23:06 Urine Culture - Final Urine,Catheterized
[2022-12-31] MEDS: VANCOMYCIN 2,250 MG in SODIUM CHLORIDE 0.9% 500 ML 500 ML IVPB SCH (11:21)
--- NOTE | 2022-12-31 11:38 | P.PN ---
Subjective 67-year-old lady with past medical history significant for atrial fibrillation, coronary artery disease, congestive heart failure, diabetes mellitus, hyperlipidemia, history of pulmonary embolism, history of CVA presented to the emergency department sent in for a witnessed episode of syncope. Patient was unresponsive per nursing staff could not feel a pulse in the started CPR. 3 rounds of CPR was done. Patient was not given shocks or medications. Patient just had chest compressions done 1 EMS arrived patient was alert and responsive. However could not remember the incident workup initiated in ER showed CT head that was negative, CT abdomen and pelvis was negative. Chest x-ray was done which showed multifocal opacities. CBC obtained showed elevated white cell count with left shift. Basic metabolic panel showed sodium of 136 potassium 4.6, potassium 34 BUN 19 creatinine 0.95. Troponin obtained negative. 12/29: Patient seen and evaluated at bedside. Patient remains in ICU for bypass of the night. [place] BiPAP through the night continue patient on oxygen supplementation. Chest x-ray does show focal infiltrates. Blood cultures show coagulase-negative staph likely contamination 12/30/2022 Patient is a pleasant 67 years old female who presents initially tolerated rest respiratory failure suspected secondary to aspiration pneumonia. He is been followed closely by pulmonary and cartilage team. Patient is kept on broad- spectrum antibiotic with the Zosyn antibiotic vancomycin. Also she is given IV Lasix for evidence of heart failure. Activity she is on 2 L oxygen WBC is 24,000, hemoglobin 7.4, creatinine 1.0. Liver enzymes mildly elevated. She is also on home dose of xarelto for A. fib 12/31/2022 Patient breathing is improving slowly and gradually, she is saturating 96% on 3 L oxygen via nasal cannula. Her WBC is 8.4 today, hemoglobin stable at 7.4, creatinine is stable 1.1, liver enzymes mildly elevated. Production stone in 0.15. Hemoglobin A1c 6.5%. Patient remains on IV Lasix 40 mg twice daily and home dose of Xarelto, also on antibiotic with vancomycin and zosyn Patient can be transferred out of the ICU today the general medical floor Objective - Vital Signs Vital signs: Vital Signs Temp 98 F 12/31/22 08:00 Pulse 74 12/31/22 08:00 Resp 18 12/31/22 08:00 BP 125/62 12/31/22 08:00 Pulse Ox 96 12/31/22 08:00 FiO2 40 12/31/22 07:35 Intake & Output 12/30/22 12/31/22 12/31/22 18:59 06:59 18:59 Intake Total 500 40 Output Total 1900 280 Balance -1400 -240 Weight 132.6 kg Intake: IV 40 0.9 @ KVO 40 Oral 500 Output: Urine 1900 280 Other: Voiding Method Indwelling Catheter Indwelling Catheter Indwelling Catheter # Voids 1 # Bowel Movements 1 - Exam GENERAL: The patient is alert and oriented x3, not in any acute distress. Well developed, well nourished. HEENT: Pupils are round and equally reacting to light. EOMI. No scleral icterus. No conjunctival pallor. Normocephalic, atraumatic. No pharyngeal erythema. No thyromegaly. CARDIOVASCULAR: S1 and S2 present. No murmurs, rubs, or gallops. PULMONARY: Chest is clear to auscultation, no wheezing , no crackles. ABDOMEN: Soft, nontender, nondistended, normoactive bowel sounds. No palpable organomegaly. MUSCULOSKELETAL: No joint swelling or deformity. EXTREMITIES: No cyanosis, clubbing, or pedal edema. NEUROLOGICAL: Gross neurological examination did not reveal any focal deficits. SKIN: No rashes. no petechiae. - Labs CBC & Chem 7: 12/30/22 03:48 12/31/22 06:13 Labs: Abnormal Lab Results - Last 24 Hours (Table) 12/30/22 12/30/22 12/30/22 Range/Units 03:48 14:09 16:34 POC Glucose (mg/dL) 203 H (70-110) mg/dL Procalcitonin 0.15 H (0.02-0.09) ng/mL Vancomycin Trough 30.7 H* ug/mL 12/30/22 12/31/22 Range/Units 20:13 06:15 POC Glucose (mg/dL) 238 H 147 H (70-110) mg/dL Procalcitonin (0.02-0.09) ng/mL Vancomycin Trough ug/mL Microbiology - Last 24 Hours (Table) 12/27/22 23:06 Urine Culture - Final Urine,Catheterized Assessment and Plan Assessment: Syncope with possible cardiac arrest Acute hypoxic respiratory failure, improving Aspiration pneumonia Acute on chronic systolic CHF, EF 35-40%. Chronic atrial fibrillation on xarelto Plan: Patient currently on IV vancomycin and Zosyn per pulmonary team IV Lasix 40 mg twice a day Home dose of Xarelto Pulmonary/critical care team on the case Cardiology consult Labs and medication were reviewed.. Continue same treatment. Continue with symptomatic treatment. Resume home medication. Monitor labs and vitals. DVT and GI prophylaxis. Further recommendations as per clinical course of the patient DVT prophylaxis: xarelto GI Prophylaxis: Ppi Prognosis is guarded
[2022-12-31 12:16] LABS: Glucose,Whole Blood 184 mg/dL (70-110)
--- NOTE | 2022-12-31 12:46 | P.PN ---
Subjective Progress Note Date: 12/31/22 This is a 67-year-old female, [facility] resident, known history of multiple medical problems including chronic atrial fibrillation, asthma, coronary artery disease and previous stent placement, chronic congestive heart failure, history of CVA/TIA history of degenerative joint disease, recent history of urinary tract infection and pyelonephritis with hydronephrosis. 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 Patient had a witnessed syncopal episode while at the [facility], patient went unresponsive as the nursing staff were transferring the patient back to her bed for bedtime. Again the patient underwent 3 rounds of CPR and obtained return of spontaneous circulation. No shocks were given. No medications were given. Patient had basically on the 3 rounds of CPR. When EMS arrived, the patient was responsive, but she couldn't remember the incident, and she appeared to be alert and oriented 3 at the time. Patient was noted to have difficulty breathing, but she had no chest pain, no abdominal pain, no nausea, no vomiting. Patient was brought into the ER, and again did not require intubation or mechanical ventilation, patient was placed on BiPAP initially. ABG showed a pO2 of 100 pCO2 67 pH of 7.28 she was later transitioned to 4 L nasal cannula. Workup also included CT of the brain which came back negative CT abdomen and pelvis negative chest x-ray showed evidence of bilateral opacities, it is difficult to tell whether the findings are findings of aspiration pneumonia or could be related to ongoing chronic congestive heart failure. BNP level was not elevated. Pro-calcitonin level is pending. Patient does seem to have an infected urine with pyuria and bacteriuria noted in the urinalysis. Basic metabolic profile was noted to be normal lactic acid this morning is 1.2, it was 2.9 on admission. WBC count 15.5 hemoglobin 8.4. Considering the findings on chest x-ray, patient was kept on vancomycin and Zosyn empirically. Patient is also on Lasix 40 mg IV push every 12 hours, and she is chronically on Xarelto which will remain the same. Patient does have previous history of DVT and pulmonary embolism as well as chronic atrial fibrillation. Reevaluated today on 12/29/2022, patient remains in the ICU. Patient is doing better today, she is on 3 L nasal cannula she was on BiPAP last night with IPAP of 14 and EPAP of 6 FiO2 40%. She did improve with Lasix 40 mg IV push every 12 hours she is also receiving antibiotics empirically, blood cultures positive for gram-positive cocci. Patient is -2.3 L over the last 24 hours. Again her chest x-ray is showing improvement and clinically the patient is feeling better and she is down to 3 L nasal cannula. Blood cultures are preliminary positive for gram-positive cocci. Final report is pending WBC count is 8.3 hemoglobin 7.3 Electrolytesenc normal bicarb is 35 BUN is 19 and creatinine 1.11. Chest x-ray is showing definite improvement in her multifocal infiltrates/interstitial edema. The patient is seen today 12/30/2022 in follow-up in the intensive care unit. She is currently sitting up in bed. Awake and alert in no acute distress. She is maintaining O2 saturations in the 90s on 2 L/m per nasal cannula. She did utilize BiPAP 14/6 and 40% FiO2 through the night. She has normal saline at KVO. No worsening shortness of breath, cough or congestion. No arrhythmias. White count 8.4. Hemoglobin 7.4. Platelets 150. Sodium 133. Potassium 3.6. Bicarb 34. BUN 20. Creatinine 1.08. Glucose 130. Chest x-ray shows car diomegaly and mild pulmonary vascular congestion. Urine culture reveals no growth. Blood cultures with positive cocci and clusters. Currently on vancomycin and Zosyn. Remains on IV diuretics. Currently in a -2.4 L balance. Anticoagulated with Xarelto. The patient is seen today 12/31/2022 in follow-up in the intensive care unit. She is sitting up in bed. Awake and alert in no acute distress. Maintaining good O2 saturations in the 90s on 3 L/m per nasal cannula. She did utilize the BiPAP last night 14/6 at 40% FiO2. Urine culture revealed no growth. Blood cultures are pending. Creatinine 1.01. GFR 57. Glucose 184. Procalcitonin was 0.15. She is currently on vancomycin and Zosyn. Anticoagulated with Xarelto. Remains on IV diuretics. Currently in a -1.6 L balance. Objective - Vital Signs Vital signs: Vital Signs Temp 98 F 12/31/22 08:00 Pulse 74 12/31/22 08:00 Resp 18 12/31/22 08:00 BP 125/62 12/31/22 08:00 Pulse Ox 96 12/31/22 08:00 FiO2 40 12/31/22 07:35 Intake & Output 12/30/22 12/31/22 12/31/22 18:59 06:59 18:59 Intake Total 500 40 Output Total 1900 280 Balance -1400 -240 Weight 132.6 kg Intake: IV 40 0.9 @ KVO 40 Oral 500 Output: Urine 1900 280 Other: Voiding Method Indwelling Catheter Indwelling Catheter Indwelling Catheter # Voids 1 # Bowel Movements 1 - Exam GENERAL EXAM: Alert, pleasant, obese 67-year-old female, on 3 L nasal cannula alternating with BiPAP, comfortable in no apparent distress. HEAD: Normocephalic. EYES: Normal reaction of pupils, equal size. NOSE: Clear with pink turbinates. THROAT: No erythema or exudates. NECK: No masses, no JVD. CHEST: No chest wall deformity. LUNGS: Equal air entry with crackles in the posterior bases. CVS: S1 and S2 normal with no audible murmur, regular rhythm. ABDOMEN: No hepatosplenomegaly, normal bowel sounds, no guarding or rigidity. SPINE: No scoliosis or deformity SKIN: No rashes CENTRAL NERVOUS SYSTEM: No focal deficits, tone is normal in all 4 extremities. EXTREMITIES: There is 1-2+ peripheral edema. No clubbing, no cyanosis. Peripheral pulses are intact. - Labs CBC & Chem 7: 12/30/22 03:48 12/31/22 06:13 Labs: Abnormal Lab Results - Last 24 Hours (Table) 12/30/22 12/30/22 12/30/22 Range/Units 03:48 14:09 16:34 POC Glucose (mg/dL) 203 H (70-110) mg/dL Procalcitonin 0.15 H (0.02-0.09) ng/mL Vancomycin Trough 30.7 H* ug/mL 12/30/22 12/31/22 12/31/22 Range/Units 20:13 06:15 12:15 POC Glucose (mg/dL) 238 H 147 H 184 H (70-110) mg/dL Procalcitonin (0.02-0.09) ng/mL Vancomycin Trough ug/mL Microbiology - Last 24 Hours (Table) 12/27/22 23:06 Urine Culture - Final Urine,Catheterized Assessment and Plan Assessment: Witnessed syncope, possible cardiac arrest, status post CPR for 5 minutes with return of spontaneous circulation. Acute hypoxic and hypercapnic respiratory failure secondary to above, improved currently on 3 L nasal cannula alternating with BiPAP Suspect aspiration pneumonia and remains on Zosyn, pro-calcitonin 0.15 Suspect acute on chronic systolic congestive heart failure ejection fraction of 35-40%, with superimposed pneumonia Chronic atrial fibrillation, anticoagulated with Xarelto Chronic urinary tract infection Morbid obesity, BMI of 47.2 History of underlying coronary artery disease History of CVA/TIA Benign essential hypertension Dyslipidemia Degenerative joint disease Hypothyroidism Fibromyalgia History of DVT and pulmonary embolism Chronic kidney disease stage III Diabetic neuropathy and nephropathy History of hypertension Gram-positive bacteremia, final report is pending Plan: The patient was seen and evaluated Medications and labs reviewed Continue vancomycin and Zosyn Continue IV diuretics Xarelto for anticoagulation Transfer out of the ICU today We will continue to follow I have personally seen and examined the patient, performed the documentation and the assessment and plan as written. Number of minutes spent on the visit: 10.
[2022-12-31 16:39] LABS: Glucose,Whole Blood 189 mg/dL (70-110)
[2022-12-31 20:17] LABS: Glucose,Whole Blood 216 mg/dL (70-110)
[2022-12-31] MEDS: MONTELUKAST 10 MG TAB PO SCH (21:07)
[2022-12-31] MEDS: ATORVASTATIN 80 MG TAB PO SCH (21:07)
[2022-12-31] MEDS: MELATONIN 5 MG TABLET PO SCH (21:07)
[2023-01-01] MEDS: PIPERACILLIN-TAZOBACTAM 3.375 GM in SODIUM CHLORIDE 0.9% 100 ML IVPB SCH ×2 (00:24→08:42)
[2023-01-01 06:03] LABS: Glucose,Whole Blood 166 mg/dL (70-110)
[2023-01-01] MEDS: LEVOTHYROXINE 125 MCG TAB PO SCH (06:19)
[2023-01-01] MEDS: PANTOPRAZOLE 40 MG TABLET PO SCH (06:19)
[2023-01-01 07:56] LABS: African American GFR (CKD) 54 (>60 ml/min/1.73 sqM); Non-African American GFR(CKD) 47 (>60 ml/min/1.73 sqM)
[2023-01-01] MEDS: INSULIN ASPART (NovoLOG) 100 UNIT/ML VIAL SQ SCH ×4 (08:42→20:38)
[2023-01-01] MEDS: FUROSEMIDE 10 MG/ML 4 ML VIAL IV SCH (08:42)
[2023-01-01] MEDS: ASPIRIN 81 MG PO SCH (08:43)
[2023-01-01] MEDS: busPIRone HCl 10 MG TAB PO SCH ×2 (08:43→20:38)
[2023-01-01] MEDS: RIVAROXABAN 10 MG TAB PO SCH (08:43)
[2023-01-01] MEDS: METOPROLOL SUCCINATE (ER) 50 MG TAB.ER.24H PO SCH (08:43)
[2023-01-01] MEDS: CYANOCOBALAMIN 500 MCG TAB PO SCH (08:43)
[2023-01-01] MEDS: ISOSORBIDE MONONITRATE ER 30 MG TAB.ER.24H PO SCH (08:43)
[2023-01-01] MEDS: DULoxetine HCL 30 MG CAPSULE.DR PO SCH ×2 (08:43→21:21)
[2023-01-01] MEDS: allopurinoL 100 MG TAB PO SCH (08:43)
--- NOTE | 2023-01-01 09:40 | P.PN ---
Subjective HISTORY OF PRESENT ILLNESS: Patient examined this morning at the bedside. Patient denies chest pain or pressure. She denies shortness of breath. Patient is currently on 3 L nasal cannula with oxygen saturations are 99%. Patient does report wearing a BiPAP overnight. She remains on IV Lasix per pulmonary. PHYSICAL EXAM: VITAL SIGNS: Reviewed. GENERAL: Well-developed in no acute distress. NECK: Supple. No JVD or thyromegaly LUNGS: Respirations even and unlabored. Lungs essentially clear to auscultation bilaterally. HEART: Regular rate and rhythm. S1 and S2 heard. EXTREMITIES: Normal range of motion. No clubbing or cyanosis. Peripheral pulses intact. 1+ bilateral lower extremity edema ASSESSMENT: Syncope Paroxysmal atrial fibrillation Acute on chronic heart failure with mildly reduced EF, 45% Moderate pulmonary hypertension History of anemia PLAN: Continue current cardiac medications Continue IV diuresis per pulmonary medicine. Recommend transition to oral dosing today. Patient currently on 10 mg of Xarelto. For optimal thromboembolic protection patient should be on 20 mg daily. However the patient does have a history of anemia with hemoglobins as low as 4.8 in the past. We will defer Xarelto dosing to internal medicine Patient is currently stable from a cardiac perspective with no further inpatient recommendations We will sign off. Please reconsult if needed. Nurse practitioner note has been reviewed by physician. Signing provider agrees with the documented findings, assessment, and plan of care. Objective - Vital Signs Vital signs: Vital Signs Temp 99.2 F 01/01/23 02:12 Pulse 74 01/01/23 02:12 Resp 18 01/01/23 02:12 BP 109/70 01/01/23 02:12 Pulse Ox 100 01/01/23 02:12 FiO2 40 12/31/22 07:35 Intake & Output 12/31/22 01/01/23 01/01/23 18:59 06:59 18:59 Output Total 1300 2400 Balance -1300 -2400 Output: Urine 1300 2400 Other: Voiding Method Indwelling Catheter Indwelling Catheter - Labs CBC & Chem 7: 12/30/22 03:48 01/01/23 07:04 Labs: Abnormal Lab Results - Last 24 Hours (Table) 12/31/22 12/31/22 12/31/22 Range/Units 12:15 16:38 20:15 POC Glucose (mg/dL) 184 H 189 H 216 H (70-110) mg/dL 01/01/23 Range/Units 06:02 POC Glucose (mg/dL) 166 H (70-110) mg/dL Microbiology - Last 24 Hours (Table) 12/27/22 23:06 Urine Culture - Final Urine,Catheterized
[2023-01-01] MEDS ORDERED: VANCOMYCIN 2,000 MG in SODIUM CHLORIDE 0.9% 500 ML 500 ML IVPB SCH (10:00)
[2023-01-01 11:33] LABS: Glucose,Whole Blood 213 mg/dL (70-110)
--- NOTE | 2023-01-01 11:57 | P.PN ---
Subjective 67-year-old lady with past medical history significant for atrial fibrillation, coronary artery disease, congestive heart failure, diabetes mellitus, hyperlipidemia, history of pulmonary embolism, history of CVA presented to the emergency department sent in for a witnessed episode of syncope. Patient was unresponsive per nursing staff could not feel a pulse in the started CPR. 3 rounds of CPR was done. Patient was not given shocks or medications. Patient just had chest compressions done 1 EMS arrived patient was alert and responsive. However could not remember the incident workup initiated in ER showed CT head that was negative, CT abdomen and pelvis was negative. Chest x-ray was done which showed multifocal opacities. CBC obtained showed elevated white cell count with left shift. Basic metabolic panel showed sodium of 136 potassium 4.6, potassium 34 BUN 19 creatinine 0.95. Troponin obtained negative. 12/29: Patient seen and evaluated at bedside. Patient remains in ICU for bypass of the night. [place] BiPAP through the night continue patient on oxygen supplementation. Chest x-ray does show focal infiltrates. Blood cultures show coagulase-negative staph likely contamination 12/30/2022 Patient is a pleasant 67 years old female who presents initially tolerated rest respiratory failure suspected secondary to aspiration pneumonia. He is been followed closely by pulmonary and cartilage team. Patient is kept on broad- spectrum antibiotic with the Zosyn antibiotic vancomycin. Also she is given IV Lasix for evidence of heart failure. Activity she is on 2 L oxygen WBC is 24,000, hemoglobin 7.4, creatinine 1.0. Liver enzymes mildly elevated. She is also on home dose of xarelto for A. fib 12/31/2022 Patient breathing is improving slowly and gradually, she is saturating 96% on 3 L oxygen via nasal cannula. Her WBC is 8.4 today, hemoglobin stable at 7.4, creatinine is stable 1.1, liver enzymes mildly elevated. Production stone in 0.15. Hemoglobin A1c 6.5%. Patient remains on IV Lasix 40 mg twice daily and home dose of Xarelto, also on antibiotic with vancomycin and zosyn Patient can be transferred out of the ICU today the general medical floor 01/01/2023 Patient today transferred to the general medical floor and she is feeling better, her oxygen saturations acceptable on 2 L/m via nasal cannula. She still somewhat tachypneic. Addressed. We will go test for PT/OT evaluation. She isn't BiPAP machine only one hour last night. This morning her breathing is good. She She is complaining from mild pain all over her body without specification. To WBCs 8.4, hemoglobin 7.4, creatinine is stable at 1.1. She remains on IV vancomycin, Zosyn, IV Lasix and Xarelto. Objective - Vital Signs Vital signs: Vital Signs Temp 99.1 F 01/01/23 07:38 Pulse 73 01/01/23 07:38 Resp 18 01/01/23 07:38 BP 105/65 01/01/23 07:38 Pulse Ox 98 01/01/23 07:38 FiO2 40 12/31/22 07:35 Intake & Output 12/31/22 01/01/23 01/01/23 18:59 06:59 18:59 Output Total 1300 2400 Balance -1300 -2400 Output: Urine 1300 2400 Other: Voiding Method Indwelling Catheter Indwelling Catheter - Exam GENERAL: The patient is alert and oriented x3, not in any acute distress. Well developed, well nourished. HEENT: Pupils are round and equally reacting to light. EOMI. No scleral icterus. No conjunctival pallor. Normocephalic, atraumatic. No pharyngeal erythema. No thyromegaly. CARDIOVASCULAR: S1 and S2 present. No murmurs, rubs, or gallops. PULMONARY: Chest is clear to auscultation, no wheezing , no crackles. ABDOMEN: Soft, nontender, nondistended, normoactive bowel sounds. No palpable organomegaly. MUSCULOSKELETAL: No joint swelling or deformity. EXTREMITIES: No cyanosis, clubbing, or pedal edema. NEUROLOGICAL: Gross neurological examination did not reveal any focal deficits. SKIN: No rashes. no petechiae. - Labs CBC & Chem 7: 12/30/22 03:48 01/01/23 07:04 Labs: Abnormal Lab Results - Last 24 Hours (Table) 12/31/22 12/31/22 12/31/22 Range/Units 12:15 16:38 20:15 Creatinine (0.52-1.04) mg/dL POC Glucose (mg/dL) 184 H 189 H 216 H (70-110) mg/dL 01/01/23 01/01/23 01/01/23 Range/Units 06:02 07:04 11:31 Creatinine 1.19 H (0.52-1.04) mg/dL POC Glucose (mg/dL) 166 H 213 H (70-110) mg/dL Microbiology - Last 24 Hours (Table) 12/27/22 22:03 Blood Culture Gram Stain - Final Blood Blood Culture - Final Coagulase Negative Staph Coagulase Negative Staph#2 12/27/22 22:03 Blood Culture Gram Stain - Final Blood Blood Culture - Final Staphylococcus epidermidis Coagulase Negative Staph 12/27/22 23:06 Urine Culture - Final Urine,Catheterized Assessment and Plan Assessment: Syncope with possible cardiac arrest Acute hypoxic respiratory failure, improving Aspiration pneumonia Acute on chronic systolic CHF, EF 35-40%. Chronic atrial fibrillation on xarelto Plan: Patient currently on IV vancomycin and Zosyn per pulmonary team IV Lasix 40 mg twice a day Home dose of Xarelto Pulmonary/critical care team on the case Cardiology consult Labs and medication were reviewed.. Continue same treatment. Continue with symptomatic treatment. Resume home medication. Monitor labs and vitals. DVT and GI prophylaxis. Further recommendations as per clinical course of the patient DVT prophylaxis: xarelto GI Prophylaxis: Ppi Prognosis is guarded
--- NOTE | 2023-01-01 15:35 | P.PN ---
Subjective Progress Note Date: 01/01/23 This is a 67-year-old female, shelter resident, known history of multiple medical problems including chronic atrial fibrillation, asthma, coronary artery disease and previous stent placement, chronic congestive heart failure, history of CVA/TIA history of degenerative joint disease, recent history of urinary tract infection and pyelonephritis with hydronephrosis. 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 Patient had a witnessed syncopal episode [facility] at the shelter, patient went unresponsive as the nursing staff were transferring the patient back to her bed for bedtime. Again the patient underwent 3 rounds of CPR and obtained return of spontaneous circulation. No shocks were given. No medications were given. Patient had basically on the 3 rounds of CPR. When EMS arrived, the patient was responsive, but she couldn't remember the incident, and she appeared to be alert and oriented 3 at the time. Patient was noted to have difficulty breathing, but she had no chest pain, no abdominal pain, no nausea, no vomiting. Patient was brought into the ER, and again did not require intubation or mechanical ventilation, patient was placed on BiPAP initially. ABG showed a pO2 of 100 pCO2 67 pH of 7.28 she was later transitioned to 4 L nasal cannula. Workup also included CT of the brain which came back negative CT abdomen and pelvis negative chest x-ray showed evidence of bilateral opacities, it is difficult to tell whether the findings are findings of aspiration pneumonia or could be related to ongoing chronic congestive heart failure. BNP level was not elevated. Pro-calcitonin level is pending. Patient does seem to have an infected urine with pyuria and bacteriuria noted in the urinalysis. Basic metabolic profile was noted to be normal lactic acid this morning is 1.2, it was 2.9 on admission. WBC count 15.5 hemoglobin 8.4. Considering the findings on chest x-ray, patient was kept on vancomycin and Zosyn empirically. Patient is also on Lasix 40 mg IV push every 12 hours, and she is chronically on Xarelto which will remain the same. Patient does have previous history of DVT and pulmonary embolism as well as chronic atrial fibrillation. Reevaluated today on 12/29/2022, patient remains in the ICU. Patient is doing better today, she is on 3 L nasal cannula she was on BiPAP last night with IPAP of 14 and EPAP of 6 FiO2 40%. She did improve with Lasix 40 mg IV push every 12 hours she is also receiving antibiotics empirically, blood cultures positive for gram-positive cocci. Patient is -2.3 L over the last 24 hours. Again her chest x-ray is showing improvement and clinically the patient is feeling better and she is down to 3 L nasal cannula. Blood cultures are preliminary positive for gram-positive cocci. Final report is pending WBC count is 8.3 hemoglobin 7.3 Electrolytesenc normal bicarb is 35 BUN is 19 and creatinine 1.11. Chest x-ray is showing definite improvement in her multifocal infiltrates/interstitial edema. The patient is seen today 12/30/2022 in follow-up in the intensive care unit. She is currently sitting up in bed. Awake and alert in no acute distress. She is maintaining O2 saturations in the 90s on 2 L/m per nasal cannula. She did utilize BiPAP 14/6 and 40% FiO2 through the night. She has normal saline at KVO. No worsening shortness of breath, cough or congestion. No arrhythmias. White count 8.4. Hemoglobin 7.4. Platelets 150. Sodium 133. Potassium 3.6. Bicarb 34. BUN 20. Creatinine 1.08. Glucose 130. Chest x-ray shows car diomegaly and mild pulmonary vascular congestion. Urine culture reveals no growth. Blood cultures with positive cocci and clusters. Currently on vancomycin and Zosyn. Remains on IV diuretics. Currently in a -2.4 L balance. Anticoagulated with Xarelto. The patient is seen today 12/31/2022 in follow-up in the intensive care unit. She is sitting up in bed. Awake and alert in no acute distress. Maintaining good O2 saturations in the 90s on 3 L/m per nasal cannula. She did utilize the BiPAP last night 14/6 at 40% FiO2. Urine culture revealed no growth. Blood cultures are pending. Creatinine 1.01. GFR 57. Glucose 184. Procalcitonin was 0.15. She is currently on vancomycin and Zosyn. Anticoagulated with Xarelto. Remains on IV diuretics. Currently in a -1.6 L balance. The patient is seen today 01/01/2023 in follow-up on the regular medical floor. She is currently resting comfortably in bed. Awake and alert in no acute distress. Maintaining O2 saturations in the 90s on 1 L/m per nasal cannula. She did utilize BiPAP last night 18/09 at 40% FiO2. No IV fluids. Urine culture reveal no growth. Creatinine 1.19. GFR 47. Random vancomycin 13.6. She remains on vancomycin and Zosyn. Anticoagulated with Xarelto. Remains on IV diuretics. Currently in a -2.4 L balance. Objective - Vital Signs Vital signs: Vital Signs Temp 99.1 F 01/01/23 07:38 Pulse 73 01/01/23 07:38 Resp 18 01/01/23 07:38 BP 105/65 01/01/23 07:38 Pulse Ox 98 01/01/23 07:38 FiO2 40 12/31/22 07:35 Intake & Output 12/31/22 01/01/23 01/01/23 18:59 06:59 18:59 Output Total 1300 2400 Balance -1300 -2400 Output: Urine 1300 2400 Other: Voiding Method Indwelling Catheter Indwelling Catheter Indwelling Catheter - Exam GENERAL EXAM: Alert, obese 67-year-old female, on 3 L nasal cannula alternating with BiPAP, in no apparent distress. HEAD: Normocephalic. EYES: Normal reaction of pupils, equal size. NOSE: Clear with pink turbinates. THROAT: No erythema or exudates. NECK: No masses, no JVD. CHEST: No chest wall deformity. LUNGS: Equal air entry with crackles in the posterior bases. CVS: S1 and S2 normal with no audible murmur, regular rhythm. ABDOMEN: No hepatosplenomegaly, normal bowel sounds, no guarding or rigidity. SPINE: No scoliosis or deformity SKIN: No rashes CENTRAL NERVOUS SYSTEM: No focal deficits, tone is normal in all 4 extremities. EXTREMITIES: There is 1-2+ peripheral edema. No clubbing, no cyanosis. Peripheral pulses are intact. - Labs CBC & Chem 7: 12/30/22 03:48 01/01/23 07:04 Labs: Abnormal Lab Results - Last 24 Hours (Table) 12/31/22 12/31/22 01/01/23 Range/Units 16:38 20:15 06:02 Creatinine (0.52-1.04) mg/dL POC Glucose (mg/dL) 189 H 216 H 166 H (70-110) mg/dL 01/01/23 01/01/23 Range/Units 07:04 11:31 Creatinine 1.19 H (0.52-1.04) mg/dL POC Glucose (mg/dL) 213 H (70-110) mg/dL Microbiology - Last 24 Hours (Table) 12/27/22 22:03 Blood Culture Gram Stain - Final Blood Blood Culture - Final Coagulase Negative Staph Coagulase Negative Staph#2 12/27/22 22:03 Blood Culture Gram Stain - Final Blood Blood Culture - Final Staphylococcus epidermidis Coagulase Negative Staph Assessment and Plan Assessment: Witnessed syncope, possible cardiac arrest, status post CPR for 5 minutes with return of spontaneous circulation. Acute hypoxic and hypercapnic respiratory failure secondary to above, improved currently on 3 L nasal cannula alternating with BiPAP Suspect aspiration pneumonia and remains on Zosyn, pro-calcitonin 0.15 Suspect acute on chronic systolic congestive heart failure ejection fraction of 35-40%, with superimposed pneumonia Chronic atrial fibrillation, anticoagulated with Xarelto Chronic urinary tract infection Morbid obesity, BMI of 47.2 History of underlying coronary artery disease History of CVA/TIA Benign essential hypertension Dyslipidemia Degenerative joint disease Hypothyroidism Fibromyalgia History of DVT and pulmonary embolism Chronic kidney disease stage III Diabetic neuropathy and nephropathy History of hypertension Gram-positive bacteremia, final report is pending Plan: The patient was seen and evaluated Medications and labs reviewed Discontinue vancomycin and Zosyn Transitioned to oral diuretics Xarelto for anticoagulation Plan is to return to [facility] on discharge Cleared for discharge from the pulmonary standpoint I have personally seen and examined the patient, performed the documentation and the assessment and plan as written. Number of minutes spent on the visit: 10.
[2023-01-01] MEDS ORDERED: FUROSEMIDE 40 MG TAB PO SCH (16:00)
[2023-01-01 17:00] LABS: Glucose,Whole Blood 157 mg/dL (70-110)
[2023-01-01 19:18] LABS: Glucose,Whole Blood 178 mg/dL (70-110)
[2023-01-01] MEDS: MONTELUKAST 10 MG TAB PO SCH (20:37)
[2023-01-01] MEDS: ATORVASTATIN 80 MG TAB PO SCH (20:38)
[2023-01-01] MEDS: MELATONIN 5 MG TABLET PO SCH (20:38)
[2023-01-01] MEDS ORDERED: ASPIRIN 81 MG PO STA (23:41)
[2023-01-01] MEDS ORDERED: NITROGLYCERIN SL TABS 0.4 MG TAB SUBLINGUAL PRN (23:41)
[2023-01-01] MEDS ORDERED: MORPHINE SULFATE 2 MG/ML SYRINGE IVP STA (23:43)
[2023-01-01] MEDS ORDERED: NITROGLYCERIN SL TABS 0.4 MG TAB SUBLINGUAL ONE (23:51)
[2023-01-02 05:25] LABS: Glucose,Whole Blood 165 mg/dL (70-110)
[2023-01-02] MEDS: PANTOPRAZOLE 40 MG TABLET PO SCH (05:37)
[2023-01-02] MEDS: INSULIN ASPART (NovoLOG) 100 UNIT/ML VIAL SQ SCH ×4 (05:37→19:45)
[2023-01-02] MEDS: LEVOTHYROXINE 125 MCG TAB PO SCH (05:37)
[2023-01-02 08:53] VITALS: BMI 47.2
[2023-01-02] MEDS: busPIRone HCl 10 MG TAB PO SCH ×2 (09:26→19:45)
[2023-01-02] MEDS: allopurinoL 100 MG TAB PO SCH (09:26)
[2023-01-02] MEDS: FUROSEMIDE 40 MG TAB PO SCH (09:26)
[2023-01-02] MEDS: DULoxetine HCL 30 MG CAPSULE.DR PO SCH ×2 (09:26→19:45)
[2023-01-02] MEDS: CYANOCOBALAMIN 500 MCG TAB PO SCH (09:26)
[2023-01-02] MEDS: RIVAROXABAN 10 MG TAB PO SCH (09:26)
[2023-01-02] MEDS: ASPIRIN 81 MG PO SCH (09:27)
[2023-01-02] MEDS: ISOSORBIDE MONONITRATE ER 30 MG TAB.ER.24H PO SCH (09:28)
[2023-01-02] MEDS: METOPROLOL SUCCINATE (ER) 50 MG TAB.ER.24H PO SCH (09:28)
[2023-01-02 11:16] LABS: ALT 16 U/L (8-44); AST 17 U/L (13-35); Albumin 3.1 d/dL (3.8-4.9); Albumin/Globulin Ratio 1.29 Ratio (1.60-3.17); Alkaline Phosphatase 81 U/L (41-126); BUN/Creat Ratio 17.36 Ratio (12.00-20.00); Bilirubin, Conjugated <0.20 mg/dL (0.20-0.40); Bilirubin,Unconjugated >0.20 mg/dL (0.20-1.00); Blood Urea Nitrogen 19.1 mg/dL (9.0-27.0); Calcium 8.6 mg/dL (8.7-10.3); Carbon Dioxide 37.8 mmol/L (21.6-31.8); Chloride 95 mmol/L (96-109); Globulin 2.4 d/dL (1.6-3.3); Glucose 133 mg/dL (70-110); Potassium 3.8 mmol/L (3.5-5.5); Sodium 140 mmol/L (135-145); Total Bilirubin 0.4 mg/dL (0.3-1.2); Total Protein 5.5 d/dL (6.2-8.2)
[2023-01-02 11:21] LABS: Basophils # (A) 0.05 X 10*3/uL (0.00-0.10); Basophils % (A) 0.6 %; Eosinophils # (A) 0.43 X 10*3/uL (0.04-0.35); Eosinophils % (A) 5.4 %; HCT 23.5 % (37.2-46.3); HGB 6.7 d/dL (12.0-15.0); Lymphocytes # (A) 1.48 X 10*3/uL (0.90-5.00); Lymphocytes % (A) 18.7 %; MCHC 28.5 d/dL (32.0-37.0); MCV 84.2 FL (80.0-97.0); Monocytes # (A) 0.74 X 10*3/uL (0.20-1.00); Monocytes % (A) 9.4 %; NRBC Per 100 WBC 0 X 10*3/uL (0.00-0.01); Neutrophils # (A) 5.17 X 10*3/uL (1.80-7.70); Neutrophils % (A) 65.5 %; Platelet Count 163 X 10*3/uL (140-440); RBC 2.79 X 10*6/uL (4.10-5.20); RDW 18.5 % (11.5-14.5)
[2023-01-02 11:43] LABS: Glucose,Whole Blood 193 mg/dL (70-110)
--- NOTE | 2023-01-02 11:58 | P.PN ---
Subjective 67-year-old lady with past medical history significant for atrial fibrillation, coronary artery disease, congestive heart failure, diabetes mellitus, hyperlipidemia, history of pulmonary embolism, history of CVA presented to the emergency department sent in for a witnessed episode of syncope. Patient was unresponsive per nursing staff could not feel a pulse in the started CPR. 3 rounds of CPR was done. Patient was not given shocks or medications. Patient just had chest compressions done 1 EMS arrived patient was alert and responsive. However could not remember the incident workup initiated in ER showed CT head that was negative, CT abdomen and pelvis was negative. Chest x-ray was done which showed multifocal opacities. CBC obtained showed elevated white cell count with left shift. Basic metabolic panel showed sodium of 136 potassium 4.6, potassium 34 BUN 19 creatinine 0.95. Troponin obtained negative. 12/29: Patient seen and evaluated at bedside. Patient remains in ICU for bypass of the night. [place] BiPAP through the night continue patient on oxygen supplementation. Chest x-ray does show focal infiltrates. Blood cultures show coagulase-negative staph likely contamination 12/30/2022 Patient is a pleasant 67 years old female who presents initially tolerated rest respiratory failure suspected secondary to aspiration pneumonia. He is been followed closely by pulmonary and cartilage team. Patient is kept on broad- spectrum antibiotic with the Zosyn antibiotic vancomycin. Also she is given IV Lasix for evidence of heart failure. Activity she is on 2 L oxygen WBC is 24,000, hemoglobin 7.4, creatinine 1.0. Liver enzymes mildly elevated. She is also on home dose of xarelto for A. fib 12/31/2022 Patient breathing is improving slowly and gradually, she is saturating 96% on 3 L oxygen via nasal cannula. Her WBC is 8.4 today, hemoglobin stable at 7.4, creatinine is stable 1.1, liver enzymes mildly elevated. Production stone in 0.15. Hemoglobin A1c 6.5%. Patient remains on IV Lasix 40 mg twice daily and home dose of Xarelto, also on antibiotic with vancomycin and zosyn Patient can be transferred out of the ICU today the general medical floor 01/01/2023 Patient today transferred to the general medical floor and she is feeling better, her oxygen saturations acceptable on 2 L/m via nasal cannula. She still somewhat tachypneic. Addressed. We will go test for PT/OT evaluation. She isn't BiPAP machine only one hour last night. This morning her breathing is good. She She is complaining from mild pain all over her body without specification. To WBCs 8.4, hemoglobin 7.4, creatinine is stable at 1.1. She remains on IV vancomycin, Zosyn, IV Lasix and Xarelto. 01/02/2023 Patient complains from little sore throat little chest tightness however her breathing is quiet not tachypneic, oxygen saturation is acceptable. Patient feels generally weak. Patient felt some chest tightness overnight troponin 2 were negative. This morning her hemoglobin dropped to 6.7. Hold aspirin and Xarelto 10 mg. Change Protonix and to IV. Appointment of blood transfusion Surgery team consult Active Medications Generic Name Dose Route Start Last Admin Trade Name Freq PRN Reason Stop Dose Admin Acetaminophen 650 mg 12/28/22 08:39 12/31/22 21:13 Acetaminophen Tab 325 Mg Tab PO 650 mg Q6HR PRN Administration Fever and/ or Pain Albuterol Sulfate 2.5 mg 12/28/22 09:04 12/30/22 21:13 Albuterol Nebulized 2.5 Mg/3 Ml INHALATION 2.5 mg RT-Q2H PRN Administration Shortness Of Breath Or Wheezing Allopurinol 100 mg 12/28/22 09:00 01/02/23 09:26 Allopurinol 100 Mg Tab PO 100 mg DAILY@0900 YOANA Administration Atorvastatin Calcium 80 mg 12/28/22 21:00 01/01/23 20:38 Atorvastatin 80 Mg Tab PO 80 mg HS@2100 YOANA Administration Buspirone HCl 10 mg 12/28/22 09:00 01/02/23 09:26 Buspirone Hcl 10 Mg Tab PO 10 mg BID@0900,2100 YOANA Administration Cyanocobalamin 1,000 mcg 12/29/22 09:00 01/02/23 09:26 Cyanocobalamin 500 Mcg Tab PO 1,000 mcg DAILY@0900 YOANA Administration Dextrose/Water 25 ml 12/28/22 09:06 Dextrose 50% Syringe 50 Ml IVP PER PROTOCOL PRN Hypoglycemia Protocol Dextrose/Water 50 ml 12/28/22 09:06 Dextrose 50% Syringe 50 Ml IVP PER PROTOCOL PRN Hypoglycemia Protocol Duloxetine HCl 30 mg 12/28/22 10:00 01/02/23 09:26 Duloxetine Hcl 30 Mg Capsule.Dr PO 30 mg BID@0900,2100 [facility] Administration Furosemide 40 mg 01/02/23 09:00 01/02/23 09:26 Furosemide 40 Mg Tab PO 40 mg DAILY YOANA Administration Insulin Aspart 0 unit 12/28/22 12:30 01/02/23 05:37 Insulin Aspart (Novolog) 100 Unit/Ml Vial SQ 1 unit ACHS YOANA Administration Protocol Isosorbide Mononitrate 30 mg 12/28/22 09:00 01/02/23 09:28 Isosorbide Mononitrate Er 30 Mg Tab.Er.24h PO 30 mg DAILY@0900 [facility] Administration Levothyroxine Sodium 125 mcg 12/28/22 06:30 01/02/23 05:37 Levothyroxine 125 Mcg Tab PO 125 mcg DAILY@0630 YOANA Administration Loratadine 10 mg 12/28/22 09:05 12/30/22 10:51 Loratadine 10 Mg Tab PO 10 mg DAILY PRN Administration Allergy Symptoms Melatonin 5 mg 12/28/22 21:00 01/01/23 20:38 Melatonin 5 Mg Tablet PO 5 mg HS@2100 YOANA Administration Methocarbamol 500 mg 12/28/22 09:05 Methocarbamol 500 Mg Tab PO TID PRN Muscle Spasm Metoprolol Succinate 50 mg 12/28/22 09:00 01/02/23 09:28 Metoprolol Succinate (Er) 50 Mg Tab.Er.24h PO 50 mg DAILY@09 [facility] Administration Miscellaneous Information 1 each 12/28/22 09:04 Pneumonia Protocol Utilized 1 Each Misc PO ONCE PRN Per Protocol Miscellaneous Information 1 each 12/29/22 06:26 Potassium Replacement Protocol 1 Each Misc MISCELLANE DAILY PRN Per Protocol Protocol Montelukast Sodium 10 mg 12/28/22 21:00 01/01/23 20:37 Montelukast 10 Mg Tab PO 10 mg HS@2100 [facility] Administration Naloxone HCl 0.2 mg 12/27/22 23:46 Naloxone 0.4 Mg/Ml 1 Ml Vial IV Q2M PRN Opioid Reversal Nitroglycerin 0.4 mg 01/01/23 23:41 01/01/23 23:52 Nitroglycerin Sl Tabs 0.4 Mg Tab SUBLINGUAL 0.4 mg Q5M PRN Administration Chest Pain Pantoprazole Sodium 40 mg 01/02/23 12:00 Pantoprazole 40 Mg/10 Ml Vial IVP DAILY YOANA Polyethylene Glycol 17 gm 12/30/22 17:09 12/31/22 21:47 Polyethylene Glycol 3350 17 Gm Powd.Pack PO 17 gm DAILY PRN Administration Constipation Senna 8.6 mg 12/30/22 17:09 12/30/22 20:48 Sennosides 8.6 Mg Tab PO 8.6 mg DAILY PRN Administration Constipation Objective - Vital Signs Vital signs: Vital Signs Temp 97.6 F 01/02/23 08:00 Pulse 73 01/02/23 08:00 Resp 18 01/02/23 08:00 BP 116/68 01/02/23 08:00 Pulse Ox 92 L 01/02/23 08:00 FiO2 40 12/31/22 07:35 Intake & Output 01/01/23 01/02/23 01/02/23 18:59 06:59 18:59 Output Total 800 500 Balance -800 -500 Weight 132.6 kg Output: Urine 800 500 Other: Voiding Method Indwelling Catheter Indwelling Catheter - Exam GENERAL: The patient is alert and oriented x3, not in any acute distress. Well developed, well nourished. HEENT: Pupils are round and equally reacting to light. EOMI. No scleral icterus. No conjunctival pallor. Normocephalic, atraumatic. No pharyngeal erythema. No thyromegaly. CARDIOVASCULAR: S1 and S2 present. No murmurs, rubs, or gallops. PULMONARY: Chest is clear to auscultation, no wheezing , no crackles. ABDOMEN: Soft, nontender, nondistended, normoactive bowel sounds. No palpable organomegaly. MUSCULOSKELETAL: No joint swelling or deformity. EXTREMITIES: No cyanosis, clubbing, or pedal edema. NEUROLOGICAL: Gross neurological examination did not reveal any focal deficits. SKIN: No rashes. no petechiae. - Labs CBC & Chem 7: 01/02/23 07:17 01/02/23 07:17 Labs: Abnormal Lab Results - Last 24 Hours (Table) 01/01/23 01/01/23 01/01/23 Range/Units 11:31 16:57 19:17 POC Glucose (mg/dL) 213 H 157 H 178 H (70-110) mg/dL 01/02/23 Range/Units 05:24 POC Glucose (mg/dL) 165 H (70-110) mg/dL Microbiology - Last 24 Hours (Table) 12/27/22 22:03 Blood Culture Gram Stain - Final Blood Blood Culture - Final Coagulase Negative Staph Coagulase Negative Staph#2 12/27/22 22:03 Blood Culture Gram Stain - Final Blood Blood Culture - Final Staphylococcus epidermidis Coagulase Negative Staph Assessment and Plan Assessment: Syncope with possible cardiac arrest Acute hypoxic respiratory failure, improving Aspiration pneumonia Acute on chronic systolic CHF, EF 35-40%. Chronic atrial fibrillation on xarelto Plan: Patient currently on IV vancomycin and Zosyn per pulmonary team IV Lasix 40 mg twice a day Hold aspirin and Xarelto 10 mg. Change Protonix and to IV. Appointment of blood transfusion Surgery team consult Pulmonary/critical care team on the case Cardiology consult Labs and medication were reviewed.. Continue same treatment. Continue with symptomatic treatment. Resume home medication. Monitor labs and vitals. DVT and GI prophylaxis. Further recommendations as per clinical course of the patient DVT prophylaxis: xarelto GI Prophylaxis: Ppi Prognosis is guarded
[2023-01-02] MEDS: ALBUTEROL NEBULIZED 2.5 MG/3 ML INHALATION PRN ×2 (12:09→16:58)
[2023-01-02] MEDS: PANTOPRAZOLE 40 MG/10 ML VIAL IVP SCH (12:26)
--- NOTE | 2023-01-02 13:58 | P.PN ---
Subjective Progress Note Date: 01/02/23 This is a 67-year-old female, halfway resident, known history of multiple medical problems including chronic atrial fibrillation, asthma, coronary artery disease and previous stent placement, chronic congestive heart failure, history of CVA/TIA history of degenerative joint disease, recent history of urinary tract infection and pyelonephritis with hydronephrosis. 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 Patient had a witnessed syncopal episode while at the halfway, patient went unresponsive as the nursing staff were transferring the patient back to her bed for bedtime. Again the patient underwent 3 rounds of CPR and obtained return of spontaneous circulation. No shocks were given. No medications were given. Patient had basically on the 3 rounds of CPR. When EMS arrived, the patient was responsive, but she couldn't remember the incident, and she appeared to be alert and oriented 3 at the time. Patient was noted to have difficulty breathing, but she had no chest pain, no abdominal pain, no nausea, no vomiting. Patient was brought into the ER, and again did not require intubation or mechanical ventilation, patient was placed on BiPAP initially. ABG showed a pO2 of 100 pCO2 67 pH of 7.28 she was later transitioned to 4 L nasal cannula. Workup also included CT of the brain which came back negative CT abdomen and pelvis negative chest x-ray showed evidence of bilateral opacities, it is difficult to tell whether the findings are findings of aspiration pneumonia or could be related to ongoing chronic congestive heart failure. BNP level was not elevated. Pro-calcitonin level is pending. Patient does seem to have an infected urine with pyuria and bacteriuria noted in the urinalysis. Basic metabolic profile was noted to be normal lactic acid this morning is 1.2, it was 2.9 on admission. WBC count 15.5 hemoglobin 8.4. Considering the findings on chest x-ray, patient was kept on vancomycin and Zosyn empirically. Patient is also on Lasix 40 mg IV push every 12 hours, and she is chronically on Xarelto which will remain the same. Patient does have previous history of DVT and pulmonary embolism as well as chronic atrial fibrillation. Reevaluated today on 12/29/2022, patient remains in the ICU. Patient is doing better today, she is on 3 L nasal cannula she was on BiPAP last night with IPAP of 14 and EPAP of 6 FiO2 40%. She did improve with Lasix 40 mg IV push every 12 hours she is also receiving antibiotics empirically, blood cultures positive for gram-positive cocci. Patient is -2.3 L over the last 24 hours. Again her chest x-ray is showing improvement and clinically the patient is feeling better and she is down to 3 L nasal cannula. Blood cultures are preliminary positive for gram-positive cocci. Final report is pending WBC count is 8.3 hemoglobin 7.3 Electrolytesenc normal bicarb is 35 BUN is 19 and creatinine 1.11. Chest x-ray is showing definite improvement in her multifocal infiltrates/interstitial edema. The patient is seen today 12/30/2022 in follow-up in the intensive care unit. She is currently sitting up in bed. Awake and alert in no acute distress. She is maintaining O2 saturations in the 90s on 2 L/m per nasal cannula. She did utilize BiPAP 14/6 and 40% FiO2 through the night. She has normal saline at KVO. No worsening shortness of breath, cough or congestion. No arrhythmias. White count 8.4. Hemoglobin 7.4. Platelets 150. Sodium 133. Potassium 3.6. Bicarb 34. BUN 20. Creatinine 1.08. Glucose 130. Chest x-ray shows car diomegaly and mild pulmonary vascular congestion. Urine culture reveals no growth. Blood cultures with positive cocci and clusters. Currently on vancomycin and Zosyn. Remains on IV diuretics. Currently in a -2.4 L balance. Anticoagulated with Xarelto. The patient is seen today 12/31/2022 in follow-up in the intensive care unit. She is sitting up in bed. Awake and alert in no acute distress. Maintaining good O2 saturations in the 90s on 3 L/m per nasal cannula. She did utilize the BiPAP last night 14/6 at 40% FiO2. Urine culture revealed no growth. Blood cultures are pending. Creatinine 1.01. GFR 57. Glucose 184. Procalcitonin was 0.15. She is currently on vancomycin and Zosyn. Anticoagulated with Xarelto. Remains on IV diuretics. Currently in a -1.6 L balance. The patient is seen today 01/01/2023 in follow-up on the regular medical floor. She is currently resting comfortably in bed. Awake and alert in no acute distress. Maintaining O2 saturations in the 90s on 1 L/m per nasal cannula. She did utilize BiPAP last night 18/09 at 40% FiO2. No IV fluids. Urine culture reveal no growth. Creatinine 1.19. GFR 47. Random vancomycin 13.6. She remains on vancomycin and Zosyn. Anticoagulated with Xarelto. Remains on IV diuretics. Currently in a -2.4 L balance. The patient is seen today 01/02/2023 in follow-up on the regular medical floor. She is resting comfortably in bed. Awake and alert in no acute distress. Maintaining O2 saturations in the 90s on 3 L/m per nasal cannula. She has normal saline at KVO. Blood cultures are positive for staph epidermidis. Urine culture revealed no growth. White count 7.9. Hemoglobin 6.7. Platelets 163. Sodium 140. Potassium 3.8. Bicarb 38. BUN 19. Creatinine 1.1. Glucose 133. Troponins negative 2. Currently in a -1.3 L balance. 1 unit of packed red blood cells has been ordered. Objective - Vital Signs Vital signs: Vital Signs Temp 97.6 F 01/02/23 08:00 Pulse 80 01/02/23 12:18 Resp 18 01/02/23 08:00 BP 116/68 01/02/23 08:00 Pulse Ox 92 L 01/02/23 08:00 FiO2 40 12/31/22 07:35 Intake & Output 01/01/23 01/02/23 01/02/23 18:59 06:59 18:59 Output Total 800 500 Balance -800 -500 Weight 132.6 kg Output: Urine 800 500 Other: Voiding Method Indwelling Catheter Indwelling Catheter - Exam GENERAL EXAM: Alert, obese pleasant 67-year-old female, on 3 L nasal cannula alternating with BiPAP, in no apparent distress. HEAD: Normocephalic. EYES: Normal reaction of pupils, equal size. NOSE: Clear with pink turbinates. THROAT: No erythema or exudates. NECK: No masses, no JVD. CHEST: No chest wall deformity. LUNGS: Equal air entry with crackles in the posterior bases. CVS: S1 and S2 normal with no audible murmur, regular rhythm. ABDOMEN: No hepatosplenomegaly, normal bowel sounds, no guarding or rigidity. SPINE: No scoliosis or deformity SKIN: No rashes CENTRAL NERVOUS SYSTEM: No focal deficits, tone is normal in all 4 extremities. EXTREMITIES: There is 1-2+ peripheral edema. No clubbing, no cyanosis. Peripheral pulses are intact. - Labs CBC & Chem 7: 01/02/23 07:17 01/02/23 07:17 Labs: Abnormal Lab Results - Last 24 Hours (Table) 01/01/23 01/01/23 01/02/23 Range/Units 16:57 19:17 05:24 RBC (4.10-5.20) X 10*6/uL Hgb (12.0-15.0) d/dL Hct (37.2-46.3) % MCH (27.0-32.0) pg MCHC (32.0-37.0) d/dL RDW (11.5-14.5) % MPV (9.5-12.2) FL Eosinophils # (0.04-0.35) X 10*3/uL Chloride (96-109) mmol/L Carbon Dioxide (21.6-31.8) mmol/L Est GFR (CKD-EPI) (>=60) Glucose (70-110) mg/dL POC Glucose (mg/dL) 157 H 178 H 165 H (70-110) mg/dL Calcium (8.7-10.3) mg/dL Total Protein (6.2-8.2) d/dL Albumin (3.8-4.9) d/dL Albumin/Globulin Ratio (1.60-3.17) Ratio 01/02/23 01/02/23 01/02/23 Range/Units 07:17 07:17 11:40 RBC 2.79 L (4.10-5.20) X 10*6/uL Hgb 6.7 H* (12.0-15.0) d/dL Hct 23.5 L (37.2-46.3) % MCH 24.0 L (27.0-32.0) pg MCHC 28.5 L (32.0-37.0) d/dL RDW 18.5 H (11.5-14.5) % MPV 9.0 L (9.5-12.2) FL Eosinophils # 0.43 H (0.04-0.35) X 10*3/uL Chloride 95 L (96-109) mmol/L Carbon Dioxide 37.8 H (21.6-31.8) mmol/L Est GFR (CKD-EPI) 55 L (>=60) Glucose 133 H (70-110) mg/dL POC Glucose (mg/dL) 193 H (70-110) mg/dL Calcium 8.6 L (8.7-10.3) mg/dL Total Protein 5.5 L (6.2-8.2) d/dL Albumin 3.1 L (3.8-4.9) d/dL Albumin/Globulin Ratio 1.29 L (1.60-3.17) Ratio Microbiology - Last 24 Hours (Table) 12/27/22 22:03 Blood Culture Gram Stain - Final Blood Blood Culture - Final Coagulase Negative Staph Coagulase Negative Staph#2 12/27/22 22:03 Blood Culture Gram Stain - Final Blood Blood Culture - Final Staphylococcus epidermidis Coagulase Negative Staph Assessment and Plan Assessment: Witnessed syncope, possible cardiac arrest, status post CPR for 5 minutes with return of spontaneous circulation Acute hypoxic and hypercapnic respiratory failure secondary to above, improved currently on 3 L nasal cannula alternating with BiPAP Suspect aspiration pneumonia and completed Zosyn, pro-calcitonin 0.15 Suspect acute on chronic systolic congestive heart failure ejection fraction of 35-40%, with superimposed pneumonia Chronic atrial fibrillation, anticoagulated with Xarelto Anemia current hemoglobin 6.7, receiving 1 unit of packed red blood cells Chronic urinary tract infection Morbid obesity, BMI of 47.2 History of underlying coronary artery disease History of CVA/TIA Benign essential hypertension Dyslipidemia Degenerative joint disease Hypothyroidism Fibromyalgia History of DVT and pulmonary embolism Chronic kidney disease stage III Diabetic neuropathy and nephropathy History of hypertension Gram-positive bacteremia, final report is pending Plan: The patient was seen and evaluated Medications and labs reviewed Received 1 unit of packed red blood cells Transitioned to oral diuretics Xarelto for anticoagulation Plan is to return to [facility] on discharge I have personally seen and examined the patient, performed the documentation and the assessment and plan as written. Number of minutes spent on the visit: 10.
--- NOTE | 2023-01-02 14:29 | P.GSCN ---
History of Present Illness Consult date: 01/02/23 History of present illness: CHIEF COMPLAINT: Possible cardiac arrest HISTORY OF PRESENT ILLNESS: This is a 67-year-old female who presented to the hospital on due to syncopal episode and possible cardiac arreston 12/27/22.. She required CPR. Patient also being treated for suspected aspiration pneumonia and congestive heart failure. Surgical service has been consulted in regards to anemia. Patient did have a drop in her hemoglobin to 6.7. She is receiving 1 unit of blood. Her Xarelto and aspirin have been placed on hold. Patient denies any blood in her stools or black stools. Patient reports that she recently had a large amount of blood in her urine due to kidney stones and kidney stents placed in September 2022 and stents since have been removed.. She repo rts that there is less blood in her urine. Currently per nursing no blood noted in the urine. No blood noted in stools. Patient denies any black stools. Denies any abdominal pain. She does report a mild upset stomach earlier today. She does report a history of colon polyps and diverticulosis. Patient also has had a past history of anemia. Her last EGD and colonoscopy were in February 2018 and reported as normal. PAST MEDICAL HISTORY: Atrial Fibrillation, Asthma, Coronary Artery Disease (CAD), Heart Failure, CVA/TIA, Diabetes Mellitus, Deep Vein Thrombosis (DVT), Fibromyalgia, Hyperli pidemia, Hypertension, Myocardial Infarction ([place]), Osteoarthritis (OA), Pulmonary Embolus ([place]), Skin Disorder, Thyroid Disorder, kidney stones,HEART MURMUR,cardiomyopathy,CHRONIC CONSTIPATION, ECZEMA,SINUS HEADACHES, HX ANEMIA, gout. stage III kidney disease stage 3,lower back pain. 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.FEEt, weakness LT SIDE, ,stg three kidney disease, PAST SURGICAL HISTORY: Appendectomy, Cardiac Ablation, Cholecystectomy, Heart Catheterization, Heart Catheterization With Stent, Hysterectomy, lithotripsy,kidney stents-since removed. MEDICATIONS: See below ALLERGIES: See below SOCIAL HISTORY: No illicit drug use. REVIEW OF SYSTEMS: CONSTITUTIONAL: Denies fever or chills. HEENT: Denies blurred vision, vision changes, or eye pain. Denies hemoptysis CARDIOVASCULAR: Denies chest pain or pressure. RESPIRATORY: No shortness of breath. GASTROINTESTINAL: See HPI for pertinent findings HEMATOLOGIC: Denies bleeding disorders. GENITOURINARY: Denies any blood in urine or increased urinary frequency. SKIN: Denies pruitis. Denies rash. PHYSICAL EXAM: VITAL SIGNS: Reviewed GENERAL: Well-developed in no acute distress. HEENT: No sclera icterus. Extraocular movements grossly intact. Moist buccal mucosa. Head is atraumatic, normocephalic. No nasal drainage. ABDOMEN: Soft. Obese. Nondistended. Nontender NEUROLOGIC: Alert and oriented. Cranial nerves II through XII grossly intact. LABORATORY DATA: WBC 7.90 hgb 6.7 platelets 163 Sodium 140 potassium 3.8 creatinine 1.1 IMAGING: ASSESSMENT: 1. Microcytic anemia PLAN: -Plan for EGD and colonoscopy on 01/06/[address] Early -Agree with blood transfusion -Continue PPI -Continue to hold Xarelto and aspirin -Continue to monitor hemoglobin -Continue to monitor for any signs or symptoms of bleeding Physician Bone Tender note has been reviewed by physician. Signing provider agrees with the documented findings, assessment, and plan of care. Past Medical History Past Medical History: Atrial Fibrillation, Asthma, Coronary Artery Disease (CAD), Heart Failure, CVA/TIA, Diabetes Mellitus, Deep Vein Thrombosis (DVT), Fibromyalgia, Hyperlipidemia, Hypertension, Myocardial Infarction ([place]), Osteoarthritis (OA), Pulmonary Embolus ([place]), Skin Disorder, Thyroid Disorder Additional Past Medical History / Comment(s): frequent uti's,kidney stones,HEART MURMUR,cardiomyopathy,CHRONIC CONSTIPATION, ECZEMA,SINUS HEADACHES, HX ANEMIA, gout. stage III kidney disease stage 3,lower back pain. 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.FEEt, weakness LT SIDE, ,stg three kidney disease,eye disorder fuchs corneal dystrophy. 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 CATARACT BLACK. WITH IMPLANTS. HEART CATH X 3 TOTAL 3 STENTS, lithotripsy,kidney stent Past Anesthesia/Blood Transfusion Reactions: Motion Sickness Additional Past Anesthesia/Blood Transfusion Reaction / Comm: no hx blood transfusion Date of Last Stent Placement:: UNKNOWN Past Psychological History: Depression Additional Psychological History / Comment(s): Pt resides at [facility] Smoking Status: Former smoker Past Alcohol Use History: None Reported Additional Past Alcohol Use History / Comment(s): SMOKED AGE 15 TO AGE 21 -WHEN QUIT WAS SMOKING 1/2 PPD Past Drug Use History: None Reported - Past Family History Father Additional Family Medical History / Comment(s): "HARDENEING OF THE ARTERIES AT AGE 41. SMOKED AND DRANK ETOH Mother Family Medical History: Cancer Additional Family Medical History / Comment(s): "cyst that ruptured between bowel and bladder" Medications and Allergies Home Medications Medication Instructions Recorded Confirmed Type Montelukast [Singulair] 10 mg PO HS@209908/28/17 12/27/22 History Acetaminophen Tab [Tylenol] 1,000 mg PO Q6H PRN 05/22/21 12/27/22 History Levothyroxine Sodium [Synthroid] 125 mcg PO DAILY@59905/22/21 12/27/22 History Loratadine [Claritin] 10 mg PO DAILY PRN 05/22/21 12/27/22 History methocarbamoL [Robaxin] 500 mg PO TID PRN 05/22/21 12/27/22 History Isosorbide Mononitrate ER [Imdur] 30 mg PO DAILY@89912/04/21 12/27/22 History Nitroglycerin Sl Tabs [Nitrostat] 0.4 mg SL Q5M PRN 12/04/21 12/27/22 History DULoxetine HCL [Cymbalta] 30 mg PO BID@09,209909/27/22 12/27/22 History Omeprazole [PriLOSEC] 20 mg PO DAILY@59909/27/22 12/27/22 History allopurinoL 100 mg PO DAILY@89909/27/22 12/27/22 History busPIRone HCl [Buspar] 10 mg PO BID@09,209909/27/22 12/27/22 History Docusate [Colace] 100 mg PO BID PRN cap 10/01/22 12/27/22 Rx Lactulose 20 gm PO DAILY@89911/19/22 12/27/22 History Melatonin 5 mg PO HS@209911/19/22 12/27/22 History Sennosides/Docusate Sodium [Senna 2 tab PO HS@209911/19/22 12/27/22 History Plus 8.6-50 mg Softgel] Aspirin 81 mg PO DAILY@89912/27/22 12/27/22 History Atorvastatin [Lipitor] 80 mg PO HS@209912/27/22 12/27/22 History Cefuroxime [Ceftin] 250 mg PO BID@899,209912/27/22 12/27/22 History Cyanocobalamin [Vitamin B-12] 1,000 mcg PO DAILY@89912/27/22 12/27/22 History INSULIN ASPART (NovoLOG) [NovoLOG See Protocol SQ ACHS@,,,12/27/22 12/27/22 History (formulary)] Metoprolol Succinate (ER) [Toprol 50 mg PO DAILY@89912/27/22 12/27/22 History Xl] Rivaroxaban [Xarelto] 10 mg PO DAILY@89912/27/22 12/27/22 History Allergies Allergy/AdvReac Type Severity Reaction Status Date / Time grass pollen Allergy Sinus Verified 12/27/22 22:34 latex Allergy Rash/Hives Verified 12/27/22 22:34 mold Allergy Sinus Verified 12/27/22 22:34 pollen extracts Allergy Sinus Verified 12/27/22 22:34 tree and shrub pollen Allergy Sinus Verified 12/27/22 22:34 Tetracyclines AdvReac YEAST Verified 12/27/22 22:34 INFECTION- PREFERS NOT TO TAKE ENVIRONMENTAL ALLERGIES Allergy SINUS Uncoded 12/06/22 08:19 SYMPTOMS-GRASS TREES,DUST,POLLENS,MOLD Surgical - Exam Vital Signs Temp Pulse Resp BP Pulse Ox 98.4 F 99 36 H 132/93 75 L 12/27/22 21:33 12/27/22 21:33 12/27/22 21:33 12/27/22 21:33 12/27/22 21:33 Results - Labs 01/02/23 07:17 01/02/23 07:17 Abnormal Lab Results - Last 24 Hours (Table) 01/01/23 01/01/23 01/02/23 Range/Units 16:57 19:17 05:24 RBC (4.10-5.20) X 10*6/uL Hgb (12.0-15.0) d/dL Hct (37.2-46.3) % MCH (27.0-32.0) pg MCHC (32.0-37.0) d/dL RDW (11.5-14.5) % MPV (9.5-12.2) FL Eosinophils # (0.04-0.35) X 10*3/uL Chloride (96-109) mmol/L Carbon Dioxide (21.6-31.8) mmol/L Est GFR (CKD-EPI) (>=60) Glucose (70-110) mg/dL POC Glucose (mg/dL) 157 H 178 H 165 H (70-110) mg/dL Calcium (8.7-10.3) mg/dL Total Protein (6.2-8.2) d/dL Albumin (3.8-4.9) d/dL Albumin/Globulin Ratio (1.60-3.17) Ratio Crossmatch 01/02/23 01/02/23 01/02/23 Range/Units 07:17 07:17 11:40 RBC 2.79 L (4.10-5.20) X 10*6/uL Hgb 6.7 H* (12.0-15.0) d/dL Hct 23.5 L (37.2-46.3) % MCH 24.0 L (27.0-32.0) pg MCHC 28.5 L (32.0-37.0) d/dL RDW 18.5 H (11.5-14.5) % MPV 9.0 L (9.5-12.2) FL Eosinophils # 0.43 H (0.04-0.35) X 10*3/uL Chloride 95 L (96-109) mmol/L Carbon Dioxide 37.8 H (21.6-31.8) mmol/L Est GFR (CKD-EPI) 55 L (>=60) Glucose 133 H (70-110) mg/dL POC Glucose (mg/dL) 193 H (70-110) mg/dL Calcium 8.6 L (8.7-10.3) mg/dL Total Protein 5.5 L (6.2-8.2) d/dL Albumin 3.1 L (3.8-4.9) d/dL Albumin/Globulin Ratio 1.29 L (1.60-3.17) Ratio Crossmatch 01/02/23 Range/Units 13:01 RBC (4.10-5.20) X 10*6/uL Hgb (12.0-15.0) d/dL Hct (37.2-46.3) % MCH (27.0-32.0) pg MCHC (32.0-37.0) d/dL RDW (11.5-14.5) % MPV (9.5-12.2) FL Eosinophils # (0.04-0.35) X 10*3/uL Chloride (96-109) mmol/L Carbon Dioxide (21.6-31.8) mmol/L Est GFR (CKD-EPI) (>=60) Glucose (70-110) mg/dL POC Glucose (mg/dL) (70-110) mg/dL Calcium (8.7-10.3) mg/dL Total Protein (6.2-8.2) d/dL Albumin (3.8-4.9) d/dL Albumin/Globulin Ratio (1.60-3.17) Ratio Crossmatch See Detail Microbiology - Last 24 Hours (Table) 12/27/22 22:03 Blood Culture Gram Stain - Final Blood Blood Culture - Final Coagulase Negative Staph Coagulase Negative Staph#2 12/27/22 22:03 Blood Culture Gram Stain - Final Blood Blood Culture - Final Staphylococcus epidermidis Coagulase Negative Staph Diabetes panel 01/02/23 Range/Units 07:17 Sodium 140 (135-145) mmol/L Potassium 3.8 (3.5-5.5) mmol/L Chloride 95 L (96-109) mmol/L Carbon Dioxide 37.8 H (21.6-31.8) mmol/L BUN 19.1 (9.0-27.0) mg/dL Creatinine 1.1 (0.6-1.5) mg/dL Glucose 133 H (70-110) mg/dL Calcium 8.6 L (8.7-10.3) mg/dL AST 17 (13-35) U/L ALT 16 (8-44) U/L Alkaline Phosphatase 81 (41-126) U/L Total Protein 5.5 L (6.2-8.2) d/dL Albumin 3.1 L (3.8-4.9) d/dL Calcium panel 01/02/23 Range/Units 07:17 Calcium 8.6 L (8.7-10.3) mg/dL Albumin 3.1 L (3.8-4.9) d/dL Pituitary panel 01/02/23 Range/Units 07:17 Sodium 140 (135-145) mmol/L Potassium 3.8 (3.5-5.5) mmol/L Chloride 95 L (96-109) mmol/L Carbon Dioxide 37.8 H (21.6-31.8) mmol/L BUN 19.1 (9.0-27.0) mg/dL Creatinine 1.1 (0.6-1.5) mg/dL Glucose 133 H (70-110) mg/dL Calcium 8.6 L (8.7-10.3) mg/dL Adrenal panel 01/02/23 Range/Units 07:17 Sodium 140 (135-145) mmol/L Potassium 3.8 (3.5-5.5) mmol/L Chloride 95 L (96-109) mmol/L Carbon Dioxide 37.8 H (21.6-31.8) mmol/L BUN 19.1 (9.0-27.0) mg/dL Creatinine 1.1 (0.6-1.5) mg/dL Glucose 133 H (70-110) mg/dL Calcium 8.6 L (8.7-10.3) mg/dL Total Bilirubin 0.4 (0.3-1.2) mg/dL AST 17 (13-35) U/L ALT 16 (8-44) U/L Alkaline Phosphatase 81 (41-126) U/L Total Protein 5.5 L (6.2-8.2) d/dL Albumin 3.1 L (3.8-4.9) d/dL
[2023-01-02 16:40] LABS: Glucose,Whole Blood 164 mg/dL (70-110)
[2023-01-02 19:34] LABS: Glucose,Whole Blood 182 mg/dL (70-110)
[2023-01-02] MEDS: MONTELUKAST 10 MG TAB PO SCH (19:45)
[2023-01-02] MEDS: ATORVASTATIN 80 MG TAB PO SCH (19:45)
[2023-01-02] MEDS: MELATONIN 5 MG TABLET PO SCH (19:45)
[2023-01-02 23:29] LABS: % Iron Saturation 6.82 (12.00-45.00); Ferritin 23.1 ng/mL (10.0-291.0)
[2023-01-03 05:45] LABS: Glucose,Whole Blood 164 mg/dL (70-110)
[2023-01-03] MEDS: INSULIN ASPART (NovoLOG) 100 UNIT/ML VIAL SQ SCH ×4 (05:56→21:51)
[2023-01-03] MEDS: LEVOTHYROXINE 125 MCG TAB PO SCH (06:26)
[2023-01-03 08:23] LABS: African American GFR (CKD) 74 (>60 ml/min/1.73 sqM); Anion Gap 7 mmol/L; Blood Urea Nitrogen 22 mg/dL (7-17); Calcium 8.3 mg/dL (8.4-10.2); Carbon Dioxide 35 mmol/L (22-30); Chloride 94 mmol/L (98-107); Glucose 135 mg/dL (74-99); Non-African American GFR(CKD) 64 (>60 ml/min/1.73 sqM); Potassium 4.5 mmol/L (3.5-5.1); Sodium 136 mmol/L (137-145)
[2023-01-03] MEDS: busPIRone HCl 10 MG TAB PO SCH ×2 (10:09→21:51)
[2023-01-03] MEDS: CYANOCOBALAMIN 500 MCG TAB PO SCH (10:09)
[2023-01-03] MEDS: FUROSEMIDE 40 MG TAB PO SCH (10:09)
[2023-01-03] MEDS: DULoxetine HCL 30 MG CAPSULE.DR PO SCH ×2 (10:10→21:51)
[2023-01-03] MEDS: allopurinoL 100 MG TAB PO SCH (10:10)
[2023-01-03] MEDS: ISOSORBIDE MONONITRATE ER 30 MG TAB.ER.24H PO SCH (10:10)
[2023-01-03] MEDS: PANTOPRAZOLE 40 MG/10 ML VIAL IVP SCH (10:10)
[2023-01-03] MEDS: METOPROLOL SUCCINATE (ER) 50 MG TAB.ER.24H PO SCH (10:10)
--- NOTE | 2023-01-03 11:10 | P.PN ---
Subjective Progress Note Date: 01/03/23 CHIEF COMPLAINT: Syncope HISTORY OF PRESENT ILLNESS: Patient sitting in bed comfortably. Denies any abd ominal pain. Denies any nausea or vomiting. Denies any blood in her stools. Surgery following in regards to her anemia. Hgb 6.7 status post 1 unit of blood. Hemoglobin for today pending. Afebrile. Iron low at 26 Cardiology has signed off patient. PHYSICAL EXAM: VITAL SIGNS: Reviewed. GENERAL: Well-developed in no acute distress. ABDOMEN: Soft. Nondistended. Nontender. NEUROLOGIC: Alert and oriented. Cranial nerves II through XII grossly intact. ASSESSMENT: 1. Anemia PLAN: -Patient scheduled for EGD and colonoscopy on 01/06/[address] farley -Continue to hold Xarelto and aspirin -Start full liquid diet tomorrow and clear liquids on Friday -Start GoLYTELY bowel prep Physician Ground Hand note has been reviewed by physician. Signing provider agrees with the documented findings, assessment, and plan of care. Objective - Vital Signs Vital signs: Vital Signs Temp 98.0 F 01/03/23 07:12 Pulse 69 01/03/23 07:12 Resp 18 01/03/23 07:12 BP 126/77 01/03/23 07:12 Pulse Ox 96 01/03/23 07:12 FiO2 40 12/31/22 07:35 Intake & Output 01/02/23 01/03/23 01/03/23 18:59 06:59 18:59 Intake Total 0 310 Output Total 800 600 Balance -800 -290 Weight 132.6 kg Intake: Blood Product 0 310 Rc As-1 Unit 0 310 [id number] Output: Urine 800 600 Other: Voiding Method External Catheter External Catheter - Labs CBC & Chem 7: 01/02/23 07:17 01/03/23 07:02 Labs: Abnormal Lab Results - Last 24 Hours (Table) 01/02/23 01/02/23 01/02/23 Range/Units 07:17 07:17 07:17 RBC 2.79 L (4.10-5.20) X 10*6/uL Hgb 6.7 H* (12.0-15.0) d/dL Hct 23.5 L (37.2-46.3) % MCH 24.0 L (27.0-32.0) pg MCHC 28.5 L (32.0-37.0) d/dL RDW 18.5 H (11.5-14.5) % MPV 9.0 L (9.5-12.2) FL Eosinophils # 0.43 H (0.04-0.35) X 10*3/uL Chloride 95 L (96-109) mmol/L Carbon Dioxide 37.8 H (21.6-31.8) mmol/L Est GFR (CKD-EPI) 55 L (>=60) Glucose 133 H (70-110) mg/dL POC Glucose (mg/dL) (70-110) mg/dL Calcium 8.6 L (8.7-10.3) mg/dL Iron 26 L (50-170) UG/DL % Saturation 6.82 L (12.00-45.00) Total Protein 5.5 L (6.2-8.2) d/dL Albumin 3.1 L (3.8-4.9) d/dL Albumin/Globulin Ratio 1.29 L (1.60-3.17) Ratio Crossmatch 01/02/23 01/02/23 01/02/23 Range/Units 11:40 13:01 16:37 RBC (4.10-5.20) X 10*6/uL Hgb (12.0-15.0) d/dL Hct (37.2-46.3) % MCH (27.0-32.0) pg MCHC (32.0-37.0) d/dL RDW (11.5-14.5) % MPV (9.5-12.2) FL Eosinophils # (0.04-0.35) X 10*3/uL Chloride (96-109) mmol/L Carbon Dioxide (21.6-31.8) mmol/L Est GFR (CKD-EPI) (>=60) Glucose (70-110) mg/dL POC Glucose (mg/dL) 193 H 164 H (70-110) mg/dL Calcium (8.7-10.3) mg/dL Iron (50-170) UG/DL % Saturation (12.00-45.00) Total Protein (6.2-8.2) d/dL Albumin (3.8-4.9) d/dL Albumin/Globulin Ratio (1.60-3.17) Ratio Crossmatch See Detail 01/02/23 01/03/23 Range/Units 19:32 05:44 RBC (4.10-5.20) X 10*6/uL Hgb (12.0-15.0) d/dL Hct (37.2-46.3) % MCH (27.0-32.0) pg MCHC (32.0-37.0) d/dL RDW (11.5-14.5) % MPV (9.5-12.2) FL Eosinophils # (0.04-0.35) X 10*3/uL Chloride (96-109) mmol/L Carbon Dioxide (21.6-31.8) mmol/L Est GFR (CKD-EPI) (>=60) Glucose (70-110) mg/dL POC Glucose (mg/dL) 182 H 164 H (70-110) mg/dL Calcium (8.7-10.3) mg/dL Iron (50-170) UG/DL % Saturation (12.00-45.00) Total Protein (6.2-8.2) d/dL Albumin (3.8-4.9) d/dL Albumin/Globulin Ratio (1.60-3.17) Ratio Crossmatch
[2023-01-03 11:29] LABS: Glucose,Whole Blood 171 mg/dL (70-110)
--- NOTE | 2023-01-03 13:11 | P.PN ---
Subjective Progress Note Date: 01/03/23 This is a 67-year-old female, [facility] resident, known history of multiple medical problems including chronic atrial fibrillation, asthma, coronary artery disease and previous stent placement, chronic congestive heart failure, history of CVA/TIA history of degenerative joint disease, recent history of urinary tract infection and pyelonephritis with hydronephrosis. 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 Patient had a witnessed [facility]opal episode [facility] the [facility], patient went unresponsive as the nursing staff were transferring the patient back to her bed for bedtime. Again the patient underwent 3 rounds of CPR and obtained return of spontaneous circulation. No shocks were given. No medications were given. Patient had basically on the 3 rounds of CPR. When EMS arrived, the patient was responsive, but she couldn't remember the incident, and she appeared to be alert and oriented 3 at the time. Patient was noted to have difficulty breathing, but she had no chest pain, no abdominal pain, no nausea, no vomiting. Patient was brought into the ER, and again did not require intubation or mechanical ventilation, patient was placed on BiPAP initially. ABG showed a pO2 of 100 pCO2 67 pH of 7.28 she was later transitioned to 4 L nasal cannula. Workup also included CT of the brain which came back negative CT abdomen and pelvis negative chest x-ray showed evidence of bilateral opacities, it is difficult to tell whether the findings are findings of aspiration pneumonia or could be related to ongoing chronic congestive heart failure. BNP level was not elevated. Pro-calcitonin level is pending. Patient does seem to have an infected urine with pyuria and bacteriuria noted in the urinalysis. Basic metabolic profile was noted to be normal lactic acid this morning is 1.2, it was 2.9 on admission. WBC count 15.5 hemoglobin 8.4. Considering the findings on chest x-ray, patient was kept on vancomycin and Zosyn empirically. Patient is also on Lasix 40 mg IV push every 12 hours, and she is chronically on Xarelto which will remain the same. Patient does have previous history of DVT and pulmonary embolism as well as chronic atrial fibrillation. Reevaluated today on 12/29/2022, patient remains in the ICU. Patient is doing better today, she is on 3 L nasal cannula she was on BiPAP last night with IPAP of 14 and EPAP of 6 FiO2 40%. She did improve with Lasix 40 mg IV push every 12 hours she is also receiving antibiotics empirically, blood cultures positive for gram-positive cocci. Patient is -2.3 L over the last 24 hours. Again her chest x-ray is showing improvement and clinically the patient is feeling better and she is down to 3 L nasal cannula. Blood cultures are preliminary positive for gram-positive cocci. Final report is pending WBC count is 8.3 hemoglobin 7.3 Electrolytesenc normal bicarb is 35 BUN is 19 and creatinine 1.11. Chest x-ray is showing definite improvement in her multifocal infiltrates/interstitial edema. The patient is seen today 12/30/2022 in follow-up in the intensive care unit. She is currently sitting up in bed. Awake and alert in no acute distress. She is maintaining O2 saturations in the 90s on 2 L/m per nasal cannula. She did utilize BiPAP 14/6 and 40% FiO2 through the night. She has normal saline at KVO. No worsening shortness of breath, cough or congestion. No arrhythmias. White count 8.4. Hemoglobin 7.4. Platelets 150. Sodium 133. Potassium 3.6. Bicarb 34. BUN 20. Creatinine 1.08. Glucose 130. Chest x-ray shows car diomegaly and mild pulmonary vascular congestion. Urine culture reveals no growth. Blood cultures with positive cocci and clusters. Currently on vancomycin and Zosyn. Remains on IV diuretics. Currently in a -2.4 L balance. Anticoagulated with Xarelto. The patient is seen today 12/31/2022 in follow-up in the intensive care unit. She is sitting up in bed. Awake and alert in no acute distress. Maintaining good O2 saturations in the 90s on 3 L/m per nasal cannula. She did utilize the BiPAP last night 14/6 at 40% FiO2. Urine culture revealed no growth. Blood cultures are pending. Creatinine 1.01. GFR 57. Glucose 184. Procalcitonin was 0.15. She is currently on vancomycin and Zosyn. Anticoagulated with Xarelto. Remains on IV diuretics. Currently in a -1.6 L balance. The patient is seen today 01/01/2023 in follow-up on the regular medical floor. She is currently resting comfortably in bed. Awake and alert in no acute distress. Maintaining O2 saturations in the 90s on 1 L/m per nasal cannula. She did utilize BiPAP last night 18/09 at 40% FiO2. No IV fluids. Urine culture reveal no growth. Creatinine 1.19. GFR 47. Random vancomycin 13.6. She remains on vancomycin and Zosyn. Anticoagulated with Xarelto. Remains on IV diuretics. Currently in a -2.4 L balance. The patient is seen today 01/02/2023 in follow-up on the regular medical floor. She is resting comfortably in bed. Awake and alert in no acute distress. Maintaining O2 saturations in the 90s on 3 L/m per nasal cannula. She has normal saline at O. Blood cultures are positive for staph epidermidis. Urine culture revealed no growth. White count 7.9. Hemoglobin 6.7. Platelets 163. Sodium 140. Potassium 3.8. Bicarb 38. BUN 19. Creatinine 1.1. Glucose 133. Troponins negative 2. Currently in a -1.3 L balance. 1 unit of packed red blood cells has been ordered. The patient is seen today 01/03/2023 in follow-up on the regular medical floor. Currently sitting up in bed. Awake and alert in no acute distress. Continues to maintain good O2 saturations in the mid 90s on 3 L/m per nasal cannula. She's afebrile. Hemodynamically stable. Sodium 136. Potassium 4.5. Bicarb 3 5. BUN 22. Creatinine 0.92. Glucose 135. Yesterday's hemoglobin did drop to 6.7. She received packed of red blood cells. Follow-up CBC pending. Plan is for EGD/colonoscopy on 01/06/2023. Xarelto and aspirin on hold. Objective - Vital Signs Vital signs: Vital Signs Temp 98.0 F 01/03/23 07:12 Pulse 69 01/03/23 07:12 Resp 18 01/03/23 07:12 BP 126/77 01/03/23 07:12 Pulse Ox 96 01/03/23 07:12 FiO2 40 12/31/22 07:35 Intake & Output 01/02/23 01/03/23 01/03/23 18:59 06:59 18:59 Intake Total 0 310 120 Output Total 800 600 Balance -800 -290 120 Weight 132.6 kg Intake: Oral 120 Blood Product 0 310 Rc As-1 Unit 0 310 [id number] Output: Urine 800 600 Other: Voiding Method External Catheter External Catheter - Exam GENERAL EXAM: Alert, obese 67-year-old female, on 3 L nasal cannula, in no ap parent distress. HEAD: Normocephalic. EYES: Normal reaction of pupils, equal size. NOSE: Clear with pink turbinates. THROAT: No erythema or exudates. NECK: No masses, no JVD. CHEST: No chest wall deformity. LUNGS: Equal air entry with crackles in the posterior bases. CVS: S1 and S2 normal with no audible murmur, regular rhythm. ABDOMEN: No hepatosplenomegaly, normal bowel sounds, no guarding or rigidity. SPINE: No scoliosis or deformity SKIN: No rashes CENTRAL NERVOUS SYSTEM: No focal deficits, tone is normal in all 4 extremities. EXTREMITIES: There is 1-2+ peripheral edema. No clubbing, no cyanosis. Peripheral pulses are intact. - Labs CBC & Chem 7: 01/02/23 07:17 01/03/23 07:02 Labs: Abnormal Lab Results - Last 24 Hours (Table) 01/02/23 01/02/23 01/02/23 Range/Units 07:17 13:01 16:37 Sodium (137-145) mmol/L Chloride (98-107) mmol/L Carbon Dioxide (22-30) mmol/L BUN (7-17) mg/dL Glucose (74-99) mg/dL POC Glucose (mg/dL) 164 H (70-110) mg/dL Calcium (8.4-10.2) mg/dL Iron 26 L (50-170) UG/DL % Saturation 6.82 L (12.00-45.00) Crossmatch See Detail 01/02/23 01/03/23 01/03/23 Range/Units 19:32 05:44 07:02 Sodium 136 L (137-145) mmol/L Chloride 94 L (98-107) mmol/L Carbon Dioxide 35 H (22-30) mmol/L BUN 22 H (7-17) mg/dL Glucose 135 H (74-99) mg/dL POC Glucose (mg/dL) 182 H 164 H (70-110) mg/dL Calcium 8.3 L (8.4-10.2) mg/dL Iron (50-170) UG/DL % Saturation (12.00-45.00) Crossmatch 01/03/23 Range/Units 11:21 Sodium (137-145) mmol/L Chloride (98-107) mmol/L Carbon Dioxide (22-30) mmol/L BUN (7-17) mg/dL Glucose (74-99) mg/dL POC Glucose (mg/dL) 171 H (70-110) mg/dL Calcium (8.4-10.2) mg/dL Iron (50-170) UG/DL % Saturation (12.00-45.00) Crossmatch Assessment and Plan Assessment: Witnessed syncope, possible cardiac arrest, status post CPR for 5 minutes with return of spontaneous circulation Acute hypoxic and hypercapnic respiratory failure secondary to above, improved currently on 3 L nasal cannula alternating with BiPAP Suspect aspiration pneumonia and completed Zosyn, pro-calcitonin 0.15 Suspect acute on chronic systolic congestive heart failure ejection fraction of 35-40%, with superimposed pneumonia Chronic atrial fibrillation, anticoagulated with Xarelto Anemia current hemoglobin 6.7, received 1 unit of packed red blood cells, follow-up hemoglobin pending. Plan for EGD/colonoscopy Chronic urinary tract infection Morbid obesity, BMI of 47.2 History of underlying coronary artery disease History of CVA/TIA Benign essential hypertension Dyslipidemia Degenerative joint disease Hypothyroidism Fibromyalgia History of DVT and pulmonary embolism Chronic kidney disease stage III Diabetic neuropathy and nephropathy History of hypertension Gram-positive bacteremia, final report is pending Plan: The patient was seen and evaluated Medications and labs reviewed Received 1 unit of packed red blood cells Plan is for EGD/colonoscopy on 01/06/2023 Titrate down the FiO2 as tolerated We will continue to follow I have personally seen and examined the patient, performed the documentation and the assessment and plan as written. Number of minutes spent on the visit: 10.
[2023-01-03 16:40] LABS: Glucose,Whole Blood 183 mg/dL (70-110)
[2023-01-03] MEDS: ACETAMINOPHEN TAB 325 MG TAB PO PRN (20:21)
[2023-01-03 20:50] LABS: Glucose,Whole Blood 156 mg/dL (70-110)
[2023-01-03] MEDS: ATORVASTATIN 80 MG TAB PO SCH (21:50)
[2023-01-03] MEDS: MELATONIN 5 MG TABLET PO SCH (21:51)
[2023-01-03] MEDS: MONTELUKAST 10 MG TAB PO SCH (21:51)
[2023-01-03] MEDS: ALBUTEROL NEBULIZED 2.5 MG/3 ML INHALATION PRN (22:08)
[2023-01-03 22:37] LABS: Anisocytosis Slight; Basophils % (A) 0 %; Eosinophils # (A) 0.5 k/uL (0-0.7); Eosinophils % (A) 6 %; HCT 27.2 % (34.0-46.0); HGB 8.6 gm/dL (11.4-16.0); Hypochromasia Marked; Lymphocytes # (A) 1.6 k/uL (1.0-4.8); Lymphocytes % (A) 20 %; MCH 26.9 pg (25.0-35.0); MCHC 31.7 g/dL (31.0-37.0); MCV 84.7 fL (80.0-100.0); Mean Platelet Volume 9.4; Monocytes # (A) 0.6 k/uL (0-1.0); Monocytes % (A) 7 %; Neutrophils # (A) 5.2 k/uL (1.3-7.7); Neutrophils % (A) 65 %; Platelet Count 162 k/uL (150-450); Poikilocytosis Moderate; RBC 3.21 m/uL (3.80-5.40); RDW 18.1 % (11.5-15.5)
[2023-01-04 06:06] LABS: Glucose,Whole Blood 153 mg/dL (70-110)
[2023-01-04] MEDS: INSULIN ASPART (NovoLOG) 100 UNIT/ML VIAL SQ SCH ×4 (06:51→21:31)
[2023-01-04] MEDS: LEVOTHYROXINE 125 MCG TAB PO SCH (06:52)
[2023-01-04] MEDS: LORATADINE 10 MG TAB PO PRN (06:52)
[2023-01-04] MEDS: ACETAMINOPHEN TAB 325 MG TAB PO PRN (06:52)
[2023-01-04 08:38] LABS: Anisocytosis Slight; HCT 29.7 % (34.0-46.0); HGB 9.1 gm/dL (11.4-16.0); Hypochromasia Marked; MCH 25.2 pg (25.0-35.0); MCHC 30.6 g/dL (31.0-37.0); MCV 82.6 fL (80.0-100.0); Mean Platelet Volume 7.6; Microcytosis Slight; Platelet Count 177 k/uL (150-450); Poikilocytosis Slight; RBC 3.59 m/uL (3.80-5.40); RDW 18.4 % (11.5-15.5); WBC 7.3 k/uL (3.8-10.6)
--- NOTE | 2023-01-04 09:46 | P.PN ---
Subjective Progress Note Date: 01/04/23 Principal diagnosis: Anemia Patient states she is doing better today. Having some chest discomfort from recent CPR. Denies nausea or vomiting. No rectal bleeding or melena. He moglobin today 9.1 from 8.6. Objective - Vital Signs Vital signs: Vital Signs Temp 98.1 F 01/04/23 06:53 Pulse 68 01/04/23 06:53 Resp 18 01/04/23 06:53 BP 155/57 01/04/23 06:53 Pulse Ox 94 L 01/04/23 06:53 FiO2 40 12/31/22 07:35 Intake & Output 01/03/23 01/04/23 01/04/23 18:59 06:59 18:59 Intake Total 120 Output Total 1000 Balance 120 -1000 Intake: Oral 120 Output: Urine 1000 Other: Voiding Method Toilet Toilet Diaper Diaper External Catheter External Catheter # Voids 4 # Bowel Movements 1 - Exam Abdomen: Soft, nontender, nondistended - Labs CBC & Chem 7: 01/04/23 06:52 01/03/23 07:02 Labs: Abnormal Lab Results - Last 24 Hours (Table) 01/03/23 01/03/23 01/03/23 Range/Units 07:02 11:21 16:29 RBC 3.21 L (3.80-5.40) m/uL Hgb 8.6 L (11.4-16.0) gm/dL Hct 27.2 L (34.0-46.0) % MCHC (31.0-37.0) g/dL RDW 18.1 H (11.5-15.5) % POC Glucose (mg/dL) 171 H 183 H (70-110) mg/dL 01/03/23 01/04/23 01/04/23 Range/Units 20:47 06:05 06:52 RBC 3.59 L (3.80-5.40) m/uL Hgb 9.1 L (11.4-16.0) gm/dL Hct 29.7 L (34.0-46.0) % MCHC 30.6 L (31.0-37.0) g/dL RDW 18.4 H (11.5-15.5) % POC Glucose (mg/dL) 156 H 153 H (70-110) mg/dL Assessment and Plan (1) Chronic anemia Narrative/Plan: 59-year-old female with anemia. Patient scheduled for upper and lower endoscopy on Friday. Follow hemoglobin. Current Visit: Yes Status: Acute Code(s): D64.9 - ANEMIA, UNSPECIFIED SNOMED Code(s): 822263017
[2023-01-04] MEDS: ISOSORBIDE MONONITRATE ER 30 MG TAB.ER.24H PO SCH (10:21)
[2023-01-04] MEDS: FUROSEMIDE 40 MG TAB PO SCH (10:21)
[2023-01-04] MEDS: allopurinoL 100 MG TAB PO SCH (10:21)
[2023-01-04] MEDS: CYANOCOBALAMIN 500 MCG TAB PO SCH (10:21)
[2023-01-04] MEDS: PANTOPRAZOLE 40 MG/10 ML VIAL IVP SCH (10:21)
[2023-01-04] MEDS: METOPROLOL SUCCINATE (ER) 50 MG TAB.ER.24H PO SCH (10:21)
[2023-01-04] MEDS: DULoxetine HCL 30 MG CAPSULE.DR PO SCH ×2 (10:21→21:31)
[2023-01-04] MEDS: busPIRone HCl 10 MG TAB PO SCH ×2 (10:21→21:31)
[2023-01-04 10:41] LABS: African American GFR (CKD) 87 (>60 ml/min/1.73 sqM); Anion Gap 5 mmol/L; Blood Urea Nitrogen 18 mg/dL (7-17); Calcium 8.6 mg/dL (8.4-10.2); Carbon Dioxide 33 mmol/L (22-30); Chloride 96 mmol/L (98-107); Glucose 162 mg/dL (74-99); Non-African American GFR(CKD) 75 (>60 ml/min/1.73 sqM); Potassium 4.2 mmol/L (3.5-5.1); Sodium 134 mmol/L (137-145)
[2023-01-04 11:22] LABS: Glucose,Whole Blood 182 mg/dL (70-110)
--- NOTE | 2023-01-04 13:12 | P.PN ---
Subjective Progress Note Date: 01/04/23 This is a 67-year-old female, [facility], known history of multiple medical problems including chronic atrial fibrillation, asthma, coronary artery disease and previous stent placement, chronic congestive heart failure, history of CVA/TIA history of degenerative joint disease, recent history of urinary tract infection and pyelonephritis with hydronephrosis. 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 [facility], patient went unresponsive as the nursing staff were transferring the patient back to her bed for bedtime. Again the patient underwent 3 rounds of CPR and obtained return of spontaneous circulation. No shocks were given. No medications were given. Patient had basically on the 3 rounds of CPR. When EMS arrived, the patient was responsive, but she couldn't remember the incident, and she appeared to be alert and oriented 3 at the time. Patient was noted to have difficulty breathing, but she had no chest pain, no abdominal pain, no nausea, no vomiting. Patient was brought into the ER, and again did not require intubation or mechanical ventilation, patient was placed on BiPAP initially. ABG showed a pO2 of 100 pCO2 67 pH of 7.28 she was later transitioned to 4 L nasal cannula. Workup also included CT of the brain which came back negative CT abdomen and pelvis negative chest x-ray showed evidence of bilateral opacities, it is difficult to tell whether the findings are findings of aspiration pneumonia or could be related to ongoing chronic congestive heart failure. BNP level was not elevated. Pro-calcitonin level is pending. Patient does seem to have an infected urine with pyuria and bacteriuria noted in the urinalysis. Basic metabolic profile was noted to be normal lactic acid this morning is 1.2, it was 2.9 on admission. WBC count 15.5 hemoglobin 8.4. Considering the findings on chest x-ray, patient was kept on vancomycin and Zosyn empirically. Patient is also on Lasix 40 mg IV push every 12 hours, and she is chronically on Xarelto which will remain the same. Patient does have previous history of DVT and pulmonary embolism as well as chronic atrial fibrillation. Reevaluated today on 12/29/2022, patient remains in the ICU. Patient is doing better today, she is on 3 L nasal cannula she was on BiPAP last night with IPAP of 14 and EPAP of 6 FiO2 40%. She did improve with Lasix 40 mg IV push every 12 hours she is also receiving antibiotics empirically, blood cultures positive for gram-positive cocci. Patient is -2.3 L over the last 24 hours. Again her chest x-ray is showing improvement and clinically the patient is feeling better and she is down to 3 L nasal cannula. Blood cultures are preliminary positive for gram-positive cocci. Final report is pending WBC count is 8.3 hemoglobin 7.3 Electrolytesenc normal bicarb is 35 BUN is 19 and creatinine 1.11. Chest x-ray is showing definite improvement in her multifocal infiltrates/interstitial edema. The patient is seen today 12/30/2022 in follow-up in the intensive care unit. She is currently sitting up in bed. Awake and alert in no acute distress. She is maintaining O2 saturations in the 90s on 2 L/m per nasal cannula. She did utilize BiPAP 14/6 and 40% FiO2 through the night. She has normal saline at KVO. No worsening shortness of breath, cough or congestion. No arrhythmias. White count 8.4. Hemoglobin 7.4. Platelets 150. Sodium 133. Potassium 3.6. Bicarb 34. BUN 20. Creatinine 1.08. Glucose 130. Chest x-ray shows car diomegaly and mild pulmonary vascular congestion. Urine culture reveals no growth. Blood cultures with positive cocci and clusters. Currently on vancomycin and Zosyn. Remains on IV diuretics. Currently in a -2.4 L balance. Anticoagulated with Xarelto. The patient is seen today 12/31/2022 in follow-up in the intensive care unit. She is sitting up in bed. Awake and alert in no acute distress. Maintaining good O2 saturations in the 90s on 3 L/m per nasal cannula. She did utilize the BiPAP last night 14/6 at 40% FiO2. Urine culture revealed no growth. Blood cultures are pending. Creatinine 1.01. GFR 57. Glucose 184. Procalcitonin was 0.15. She is currently on vancomycin and Zosyn. Anticoagulated with Xarelto. Remains on IV diuretics. Currently in a -1.6 L balance. The patient is seen today 01/01/2023 in follow-up on the regular medical floor. She is currently resting comfortably in bed. Awake and alert in no acute distress. Maintaining O2 saturations in the 90s on 1 L/m per nasal cannula. She did utilize BiPAP last night 18/09 at 40% FiO2. No IV fluids. Urine culture reveal no growth. Creatinine 1.19. GFR 47. Random vancomycin 13.6. She remains on vancomycin and Zosyn. Anticoagulated with Xarelto. Remains on IV diuretics. Currently in a -2.4 L balance. The patient is seen today 01/02/2023 in follow-up on the regular medical floor. She is resting comfortably in bed. Awake and alert in no acute distress. Maintaining O2 saturations in the 90s on 3 L/m per nasal cannula. She has normal saline at [facility]. Blood cultures are positive for staph epidermidis. Urine culture revealed no growth. White count 7.9. Hemoglobin 6.7. Platelets 163. Sodium 140. Potassium 3.8. Bicarb 38. BUN 19. Creatinine 1.1. Glucose 133. Troponins negative 2. Currently in a -1.3 L balance. 1 unit of packed red blood cells has been ordered. The patient is seen today 01/03/2023 in follow-up on the regular medical floor. Currently sitting up in bed. Awake and alert in no acute distress. Continues to maintain good O2 saturations in the mid 90s on 3 L/m per nasal cannula. She's afebrile. Hemodynamically stable. Sodium 136. Potassium 4.5. Bicarb 3 5. BUN 22. Creatinine 0.92. Glucose 135. Yesterday's hemoglobin did drop to 6.7. She received packed of red blood cells. Follow-up CBC pending. Plan is for EGD/colonoscopy on 01/06/2023. Xarelto and aspirin on hold. The patient is seen today 01/04/2023 in follow-up on the regular medical floor. She is currently resting in bed. Awake and alert in no acute distress. Continue good O2 saturations in the 90s on 3 L/m per nasal cannula. Afebrile. Hemodynamically stable. She is status post 1 unit of packed red blood cells this admission. Current hemoglobin 9.1. Platelets 177. Sodium 134. Potassium 4.2. Bicarb 33. BUN 18. Creatinine 0.81. Glucose 162. Xarelto and aspirin on hold. Plan is for EGD/colonoscopy on 01/06/2023. Objective - Vital Signs Vital signs: Vital Signs Temp 98.1 F 01/04/23 06:53 Pulse 68 01/04/23 06:53 Resp 18 01/04/23 06:53 BP 155/57 01/04/23 06:53 Pulse Ox 94 L 01/04/23 06:53 FiO2 40 12/31/22 07:35 Intake & Output 01/03/23 01/04/23 01/04/23 18:59 06:59 18:59 Intake Total 120 Output Total 1000 Balance 120 -1000 Intake: Oral 120 Output: Urine 1000 Other: Voiding Method Toilet Toilet Diaper Diaper External Catheter External Catheter # Voids 4 # Bowel Movements 1 - Exam GENERAL EXAM: Alert, 67-year-old female, sitting up in bed, on 3 L nasal cannula , in no apparent distress. HEAD: Normocephalic. EYES: Normal reaction of pupils, equal size. NOSE: Clear with pink turbinates. THROAT: No erythema or exudates. NECK: No masses, no JVD. CHEST: No chest wall deformity. LUNGS: Equal air entry with crackles in the posterior bases. CVS: S1 and S2 normal with no audible murmur, regular rhythm. ABDOMEN: No hepatosplenomegaly, normal bowel sounds, no guarding or rigidity. SPINE: No scoliosis or deformity SKIN: No rashes CENTRAL NERVOUS SYSTEM: No focal deficits, tone is normal in all 4 extremities. EXTREMITIES: There is 1-2+ peripheral edema. No clubbing, no cyanosis. Peripheral pulses are intact. - Labs CBC & Chem 7: 01/04/23 06:52 01/04/23 09:12 Labs: Abnormal Lab Results - Last 24 Hours (Table) 01/03/23 01/03/23 01/03/23 Range/Units 07:02 16:29 20:47 RBC 3.21 L (3.80-5.40) m/uL Hgb 8.6 L (11.4-16.0) gm/dL Hct 27.2 L (34.0-46.0) % MCHC (31.0-37.0) g/dL RDW 18.1 H (11.5-15.5) % Sodium (137-145) mmol/L Chloride (98-107) mmol/L Carbon Dioxide (22-30) mmol/L BUN (7-17) mg/dL Glucose (74-99) mg/dL POC Glucose (mg/dL) 183 H 156 H (70-110) mg/dL 01/04/23 01/04/23 01/04/23 Range/Units 06:05 06:52 09:12 RBC 3.59 L (3.80-5.40) m/uL Hgb 9.1 L (11.4-16.0) gm/dL Hct 29.7 L (34.0-46.0) % MCHC 30.6 L (31.0-37.0) g/dL RDW 18.4 H (11.5-15.5) % Sodium 134 L (137-145) mmol/L Chloride 96 L (98-107) mmol/L Carbon Dioxide 33 H (22-30) mmol/L BUN 18 H (7-17) mg/dL Glucose 162 H (74-99) mg/dL POC Glucose (mg/dL) 153 H (70-110) mg/dL 01/04/23 Range/Units 11:20 RBC (3.80-5.40) m/uL Hgb (11.4-16.0) gm/dL Hct (34.0-46.0) % MCHC (31.0-37.0) g/dL RDW (11.5-15.5) % Sodium (137-145) mmol/L Chloride (98-107) mmol/L Carbon Dioxide (22-30) mmol/L BUN (7-17) mg/dL Glucose (74-99) mg/dL POC Glucose (mg/dL) 182 H (70-110) mg/dL Assessment and Plan Assessment: Witnessed syncope, possible cardiac arrest, status post CPR for 5 minutes with return of spontaneous circulation on 12/27/2022 Acute hypoxic and hypercapnic respiratory failure secondary to above, improved currently on 3 L nasal cannula alternating with BiPAP Suspect aspiration pneumonia and completed Zosyn, pro-calcitonin 0.15 Suspect acute on chronic systolic congestive heart failure ejection fraction of 35-40%, with superimposed pneumonia Chronic atrial fibrillation, anticoagulated with Xarelto Anemia current hemoglobin 6.7, received 1 unit of packed red blood cells, follow-up hemoglobin pending. Plan for EGD/colonoscopy Chronic urinary tract infection Morbid obesity, BMI of 47.2 History of underlying coronary artery disease History of CVA/TIA Benign essential hypertension Dyslipidemia Degenerative joint disease Hypothyroidism Fibromyalgia History of DVT and pulmonary embolism Chronic kidney disease stage III Diabetic neuropathy and nephropathy History of hypertension Gram-positive bacteremia, final report is pending Plan: The patient was seen and evaluated Medications and labs reviewed Currently stable on 3 L nasal cannula Received 1 unit of packed red blood cells Xarelto and aspirin on hold Plan is for EGD/colonoscopy on 01/06/2023 We will continue to follow I have personally seen and examined the patient, performed the documentation and the assessment and plan as written. Number of minutes spent on the visit: 10.
--- NOTE | 2023-01-04 14:22 | P.PN ---
Subjective Progress Note Date: 01/03/23 67-year-old lady with past medical history significant for atrial fibrillation, coronary artery disease, congestive heart failure, diabetes mellitus, hyperlipidemia, history of pulmonary embolism, history of CVA presented to the emergency department sent in for a witnessed episode of syncope. Patient was unresponsive per nursing staff could not feel a pulse in the started CPR. 3 rounds of CPR was done. Patient was not given shocks or medications. Patient just had chest compressions done 1 EMS arrived patient was alert and responsive. However could not remember the incident workup initiated in ER showed CT head that was negative, CT abdomen and pelvis was negative. Chest x-ray was done which showed multifocal opacities. CBC obtained showed elevated white cell count with left shift. Basic metabolic panel showed sodium of 136 potassium 4.6, potassium 34 BUN 19 creatinine 0.95. Troponin obtained negative. 12/29: Patient seen and evaluated at bedside. Patient remains in ICU for bypass of the night. [place] BiPAP through the night continue patient on oxygen supplementation. Chest x-ray does show focal infiltrates. Blood cultures show coagulase-negative staph likely contamination Objective - Vital Signs Vital signs: Vital Signs Temp 98.0 F 01/03/23 07:12 Pulse 69 01/03/23 07:12 Resp 18 01/03/23 07:12 BP 126/77 01/03/23 07:12 Pulse Ox 96 01/03/23 07:12 FiO2 40 12/31/22 07:35 Intake & Output 01/02/23 01/03/23 01/03/23 18:59 06:59 18:59 Intake Total 0 310 120 Output Total 800 600 Balance -800 -290 120 Weight 132.6 kg Intake: Oral 120 Blood Product 0 310 Rc As-1 Unit 0 310 [id number] Output: Urine 800 600 Other: Voiding Method External Catheter External Catheter - Exam GENERAL: The patient is alert and oriented x3, not in any acute distress. Well developed, well nourished. HEENT: Pupils are round and equally reacting to light. EOMI. No scleral icterus. No conjunctival pallor. Normocephalic, atraumatic. No pharyngeal erythema. No thyromegaly. CARDIOVASCULAR: S1 and S2 present. No murmurs, rubs, or gallops. PULMONARY: Chest is clear to auscultation, no wheezing , no crackles. ABDOMEN: Soft, nontender, nondistended, normoactive bowel sounds. No palpable organomegaly. MUSCULOSKELETAL: No joint swelling or deformity. EXTREMITIES: No cyanosis, clubbing, or pedal edema. NEUROLOGICAL: Gross neurological examination did not reveal any focal deficits. SKIN: No rashes. no petechiae. - Labs CBC & Chem 7: 01/04/23 06:52 01/04/23 09:12 Labs: Abnormal Lab Results - Last 24 Hours (Table) 01/02/23 01/02/23 01/02/23 Range/Units 07:17 13:01 16:37 Sodium (137-145) mmol/L Chloride (98-107) mmol/L Carbon Dioxide (22-30) mmol/L BUN (7-17) mg/dL Glucose (74-99) mg/dL POC Glucose (mg/dL) 164 H (70-110) mg/dL Calcium (8.4-10.2) mg/dL Iron 26 L (50-170) UG/DL % Saturation 6.82 L (12.00-45.00) Crossmatch See Detail 01/02/23 01/03/23 01/03/23 Range/Units 19:32 05:44 07:02 Sodium 136 L (137-145) mmol/L Chloride 94 L (98-107) mmol/L Carbon Dioxide 35 H (22-30) mmol/L BUN 22 H (7-17) mg/dL Glucose 135 H (74-99) mg/dL POC Glucose (mg/dL) 182 H 164 H (70-110) mg/dL Calcium 8.3 L (8.4-10.2) mg/dL Iron (50-170) UG/DL % Saturation (12.00-45.00) Crossmatch 01/03/23 Range/Units 11:21 Sodium (137-145) mmol/L Chloride (98-107) mmol/L Carbon Dioxide (22-30) mmol/L BUN (7-17) mg/dL Glucose (74-99) mg/dL POC Glucose (mg/dL) 171 H (70-110) mg/dL Calcium (8.4-10.2) mg/dL Iron (50-170) UG/DL % Saturation (12.00-45.00) Crossmatch Assessment and Plan Assessment: Syncope with possible cardiac arrest Acute hypoxic respiratory failure, improving Aspiration pneumonia Acute on chronic systolic CHF, EF 35-40%. Chronic atrial fibrillation on xarelto Plan: Patient currently on IV vancomycin and Zosyn per pulmonary team IV Lasix 40 mg twice a day Hold aspirin and Xarelto 10 mg. Change Protonix and to IV. Appointment of blood transfusion Surgery team consult Pulmonary/critical care team on the case Cardiology consult Labs and medication were reviewed.. Continue same treatment. Continue with symptomatic treatment. Resume home medication. Monitor labs and vitals. DVT and GI prophylaxis. Further recommendations as per clinical course of the patient DVT prophylaxis: xarelto GI Prophylaxis: Ppi Prognosis is guarded
[2023-01-04 16:25] LABS: Glucose,Whole Blood 178 mg/dL (70-110)
[2023-01-04] MEDS: MONTELUKAST 10 MG TAB PO SCH (18:49)
--- NOTE | 2023-01-04 19:46 | P.PN ---
Subjective Progress Note Date: 01/04/23 67-year-old lady with past medical history significant for atrial fibrillation, coronary artery disease, congestive heart failure, diabetes mellitus, hyperlipidemia, history of pulmonary embolism, history of CVA presented to the emergency department sent in for a witnessed episode of syncope. Patient was unresponsive per nursing staff could not feel a pulse in the started CPR. 3 rounds of CPR was done. Patient was not given shocks or medications. Patient just had chest compressions done 1 EMS arrived patient was alert and responsive. However could not remember the incident workup initiated in ER showed CT head that was negative, CT abdomen and pelvis was negative. Chest x-ray was done which showed multifocal opacities. CBC obtained showed elevated white cell count with left shift. Basic metabolic panel showed sodium of 136 potassium 4.6, potassium 34 BUN 19 creatinine 0.95. Troponin obtained negative. 12/29: Patient seen and evaluated at bedside. Patient remains in ICU for bypass of the night. [place] BiPAP through the night continue patient on oxygen supplementation. Chest x-ray does show focal infiltrates. Blood cultures show coagulase-negative staph likely contamination 01/04/2023 Patient is seen and evaluated in room at bedside. She is currently resting in bed. Awake and alert in no acute distress. Continue good O2 saturations in the 90s on 3 L/m per nasal cannula. Afebrile. Hemodynamically stable. She is status post 1 unit of packed red blood cells this admission. Current hemoglobin 9.1. Platelets 177. Sodium 134. Potassium 4.2. Bicarb 33. BUN 18. Creatinine 0.81. Glucose 162. Xarelto and aspirin on hold. Plan is for EGD/colonoscopy on 01/06/2023. Objective - Vital Signs Vital signs: Vital Signs Temp 98.6 F 01/04/23 13:40 Pulse 71 01/04/23 13:40 Resp 16 01/04/23 13:40 BP 138/68 01/04/23 13:40 Pulse Ox 95 01/04/23 13:40 FiO2 40 12/31/22 07:35 Intake & Output 01/03/23 01/04/23 01/04/23 18:59 06:59 18:59 Intake Total 120 Output Total 1000 1000 Balance 120 -1000 -1000 Intake: Oral 120 Output: Urine 1000 1000 Other: Voiding Method Toilet Toilet Diaper Diaper External Catheter External Catheter # Voids 4 # Bowel Movements 1 - Exam GENERAL: The patient is alert and oriented x3, not in any acute distress. Well developed, well nourished. HEENT: Pupils are round and equally reacting to light. EOMI. No scleral icterus. No conjunctival pallor. Normocephalic, atraumatic. No pharyngeal erythema. No thyromegaly. CARDIOVASCULAR: S1 and S2 present. No murmurs, rubs, or gallops. PULMONARY: Chest is clear to auscultation, no wheezing , no crackles. ABDOMEN: Soft, nontender, nondistended, normoactive bowel sounds. No palpable organomegaly. MUSCULOSKELETAL: No joint swelling or deformity. EXTREMITIES: No cyanosis, clubbing, or pedal edema. NEUROLOGICAL: Gross neurological examination did not reveal any focal deficits. SKIN: No rashes. no petechiae. - Labs CBC & Chem 7: 01/04/23 06:52 01/04/23 09:12 Labs: Abnormal Lab Results - Last 24 Hours (Table) 01/03/23 01/03/23 01/03/23 Range/Units 07:02 16:29 20:47 RBC 3.21 L (3.80-5.40) m/uL Hgb 8.6 L (11.4-16.0) gm/dL Hct 27.2 L (34.0-46.0) % MCHC (31.0-37.0) g/dL RDW 18.1 H (11.5-15.5) % Sodium (137-145) mmol/L Chloride (98-107) mmol/L Carbon Dioxide (22-30) mmol/L BUN (7-17) mg/dL Glucose (74-99) mg/dL POC Glucose (mg/dL) 183 H 156 H (70-110) mg/dL 01/04/23 01/04/23 01/04/23 Range/Units 06:05 06:52 09:12 RBC 3.59 L (3.80-5.40) m/uL Hgb 9.1 L (11.4-16.0) gm/dL Hct 29.7 L (34.0-46.0) % MCHC 30.6 L (31.0-37.0) g/dL RDW 18.4 H (11.5-15.5) % Sodium 134 L (137-145) mmol/L Chloride 96 L (98-107) mmol/L Carbon Dioxide 33 H (22-30) mmol/L BUN 18 H (7-17) mg/dL Glucose 162 H (74-99) mg/dL POC Glucose (mg/dL) 153 H (70-110) mg/dL 01/04/23 Range/Units 11:20 RBC (3.80-5.40) m/uL Hgb (11.4-16.0) gm/dL Hct (34.0-46.0) % MCHC (31.0-37.0) g/dL RDW (11.5-15.5) % Sodium (137-145) mmol/L Chloride (98-107) mmol/L Carbon Dioxide (22-30) mmol/L BUN (7-17) mg/dL Glucose (74-99) mg/dL POC Glucose (mg/dL) 182 H (70-110) mg/dL Assessment and Plan Assessment: Syncope with possible cardiac arrest Acute hypoxic respiratory failure, improving Aspiration pneumonia Acute on chronic systolic CHF, EF 35-40%. Chronic atrial fibrillation on xarelto Plan: Patient currently on IV vancomycin and Zosyn per pulmonary team IV Lasix 40 mg twice a day Hold aspirin and Xarelto 10 mg. Change Protonix and to IV. Appointment of blood transfusion Surgery team consult Pulmonary/critical care team on the case Cardiology consult Labs and medication were reviewed.. Continue same treatment. Continue with sy mptomatic treatment. Resume home medication. Monitor labs and vitals. DVT and GI prophylaxis. Further recommendations as per clinical course of the patient DVT prophylaxis: xarelto GI Prophylaxis: Ppi Prognosis is guarded
[2023-01-04 20:29] LABS: Glucose,Whole Blood 202 mg/dL (70-110)
[2023-01-04] MEDS: MELATONIN 5 MG TABLET PO SCH (21:31)
[2023-01-04] MEDS: ATORVASTATIN 80 MG TAB PO SCH (21:31)
[2023-01-05] MEDS: ACETAMINOPHEN TAB 325 MG TAB PO PRN (01:45)
[2023-01-05 05:53] LABS: Glucose,Whole Blood 154 mg/dL (70-110)
[2023-01-05] MEDS: INSULIN ASPART (NovoLOG) 100 UNIT/ML VIAL SQ SCH ×4 (06:30→21:25)
[2023-01-05] MEDS: LEVOTHYROXINE 125 MCG TAB PO SCH (06:30)
[2023-01-05] MEDS: ALBUTEROL NEBULIZED 2.5 MG/3 ML INHALATION PRN ×2 (06:41→22:29)
[2023-01-05 07:02] LABS: Glucose,Whole Blood 142 mg/dL (70-110)
[2023-01-05 07:29] LABS: African American GFR (CKD) 84 (>60 ml/min/1.73 sqM); Anion Gap 3 mmol/L; Blood Urea Nitrogen 17 mg/dL (7-17); Calcium 8.7 mg/dL (8.4-10.2); Carbon Dioxide 36 mmol/L (22-30); Chloride 97 mmol/L (98-107); Glucose 137 mg/dL (74-99); Non-African American GFR(CKD) 73 (>60 ml/min/1.73 sqM); Potassium 4.5 mmol/L (3.5-5.1); Sodium 136 mmol/L (137-145)
[2023-01-05] MEDS: allopurinoL 100 MG TAB PO SCH (07:58)
[2023-01-05] MEDS: ISOSORBIDE MONONITRATE ER 30 MG TAB.ER.24H PO SCH (07:58)
[2023-01-05] MEDS: CYANOCOBALAMIN 500 MCG TAB PO SCH (07:58)
[2023-01-05] MEDS: METOPROLOL SUCCINATE (ER) 50 MG TAB.ER.24H PO SCH (07:58)
[2023-01-05] MEDS: FUROSEMIDE 40 MG TAB PO SCH (07:58)
[2023-01-05] MEDS: DULoxetine HCL 30 MG CAPSULE.DR PO SCH ×2 (07:59→21:30)
[2023-01-05] MEDS: busPIRone HCl 10 MG TAB PO SCH ×2 (07:59→21:30)
[2023-01-05] MEDS ORDERED: PEG 3350 (236 GM/BTL) + LYTES 4,000 ML BOTTLE PO ONE (09:00)
[2023-01-05 10:01] LABS: Anisocytosis Slight; Basophils % (A) 1 %; Eosinophils # (A) 0.6 k/uL (0-0.7); Eosinophils % (A) 7 %; HCT 30.8 % (34.0-46.0); HGB 9.1 gm/dL (11.4-16.0); Hypochromasia Marked; Lymphocytes # (A) 1.3 k/uL (1.0-4.8); Lymphocytes % (A) 17 %; MCH 25.3 pg (25.0-35.0); MCHC 29.6 g/dL (31.0-37.0); MCV 85.7 fL (80.0-100.0); Mean Platelet Volume 7.9; Monocytes # (A) 0.4 k/uL (0-1.0); Monocytes % (A) 6 %; Neutrophils # (A) 5.4 k/uL (1.3-7.7); Neutrophils % (A) 68 %; Platelet Count 185 k/uL (150-450); Poikilocytosis Slight; RDW 18.1 % (11.5-15.5); WBC 7.9 k/uL (3.8-10.6)
--- NOTE | 2023-01-05 10:23 | P.PN ---
Subjective Progress Note Date: 01/05/23 Principal diagnosis: Anemia Patient doing well today. No pain. Denies nausea or vomiting. No rectal bleeding or melena. Objective - Vital Signs Vital signs: Vital Signs Temp 98.3 F 01/05/23 07:12 Pulse 81 01/05/23 07:30 Resp 15 01/05/23 07:30 BP 113/52 01/05/23 07:12 Pulse Ox 95 01/05/23 07:52 FiO2 40 12/31/22 07:35 Intake & Output 01/04/23 01/05/23 01/05/23 18:59 06:59 18:59 Output Total 1999 600 Balance -1999 -600 Output: Urine 1999 600 Other: Voiding Method Toilet Toilet Toilet Diaper Diaper Diaper External Catheter External Catheter External Catheter - Exam Abdomen: Soft, nontender, nondistended - Labs CBC & Chem 7: 01/05/23 08:41 01/05/23 06:57 Labs: Abnormal Lab Results - Last 24 Hours (Table) 01/04/23 01/04/23 01/04/23 Range/Units 09:12 11:20 16:23 RBC (3.80-5.40) m/uL Hgb (11.4-16.0) gm/dL Hct (34.0-46.0) % MCHC (31.0-37.0) g/dL RDW (11.5-15.5) % Sodium 134 L (137-145) mmol/L Chloride 96 L (98-107) mmol/L Carbon Dioxide 33 H (22-30) mmol/L BUN 18 H (7-17) mg/dL Glucose 162 H (74-99) mg/dL POC Glucose (mg/dL) 182 H 178 H (70-110) mg/dL 01/04/23 01/05/23 01/05/23 Range/Units 20:27 05:52 06:57 RBC (3.80-5.40) m/uL Hgb (11.4-16.0) gm/dL Hct (34.0-46.0) % MCHC (31.0-37.0) g/dL RDW (11.5-15.5) % Sodium 136 L (137-145) mmol/L Chloride 97 L (98-107) mmol/L Carbon Dioxide 36 H (22-30) mmol/L BUN (7-17) mg/dL Glucose 137 H (74-99) mg/dL POC Glucose (mg/dL) 202 H 154 H (70-110) mg/dL 01/05/23 01/05/23 Range/Units 07:01 08:41 RBC 3.60 L (3.80-5.40) m/uL Hgb 9.1 L (11.4-16.0) gm/dL Hct 30.8 L (34.0-46.0) % MCHC 29.6 L (31.0-37.0) g/dL RDW 18.1 H (11.5-15.5) % Sodium (137-145) mmol/L Chloride (98-107) mmol/L Carbon Dioxide (22-30) mmol/L BUN (7-17) mg/dL Glucose (74-99) mg/dL POC Glucose (mg/dL) 142 H (70-110) mg/dL Assessment and Plan (1) Chronic anemia Narrative/Plan: Patient with stable hemoglobin. Scheduled for upper and lower endoscopy tomorrow. Begin bowel prep today. Current Visit: Yes Status: Acute Code(s): D64.9 - ANEMIA, UNSPECIFIED SNOMED Code(s): 764023834
[2023-01-05 11:12] LABS: Glucose,Whole Blood 175 mg/dL (70-110)
[2023-01-05] MEDS: PANTOPRAZOLE 40 MG/10 ML VIAL IVP SCH (11:24)
--- NOTE | 2023-01-05 12:37 | P.PN ---
Subjective Progress Note Date: 01/05/23 This is a 67-year-old female, residential resident, known history of multiple medical problems including chronic atrial fibrillation, asthma, coronary artery disease and previous stent placement, chronic congestive heart failure, history of CVA/TIA history of degenerative joint disease, recent history of urinary tract infection and pyelonephritis with hydronephrosis. 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 Patient had a witnessed syncopal episode while at the residential, patient went unresponsive as the nursing staff were transferring the patient back to her bed for bedtime. Again the patient underwent 3 rounds of CPR and obtained return of spontaneous circulation. No shocks were given. No medications were given. Patient had basically on the 3 rounds of CPR. When EMS arrived, the patient was responsive, but she couldn't remember the incident, and she appeared to be alert and oriented 3 at the time. Patient was noted to have difficulty breathing, but she had no chest pain, no abdominal pain, no nausea, no vomiting. Patient was brought into the ER, and again did not require intubation or mechanical ventilation, patient was placed on BiPAP initially. ABG showed a pO2 of 100 pCO2 67 pH of 7.28 she was later transitioned to 4 L nasal cannula. Workup also included CT of the brain which came back negative CT abdomen and pelvis negative chest x-ray showed evidence of bilateral opacities, it is difficult to tell whether the findings are findings of aspiration pneumonia or could be related to ongoing chronic congestive heart failure. BNP level was not elevated. Pro-calcitonin level is pending. Patient does seem to have an infected urine with pyuria and bacteriuria noted in the urinalysis. Basic metabolic profile was noted to be normal lactic acid this morning is 1.2, it was 2.9 on admission. WBC count 15.5 hemoglobin 8.4. Considering the findings on chest x-ray, patient was kept on vancomycin and Zosyn empirically. Patient is also on Lasix 40 mg IV push every 12 hours, and she is chronically on Xarelto which will remain the same. Patient does have previous history of DVT and pulmonary embolism as well as chronic atrial fibrillation. Reevaluated today on 12/29/2022, patient remains in the ICU. Patient is doing better today, she is on 3 L nasal cannula she was on BiPAP last night with IPAP of 14 and EPAP of 6 FiO2 40%. She did improve with Lasix 40 mg IV push every 12 hours she is also receiving antibiotics empirically, blood cultures positive for gram-positive cocci. Patient is -2.3 L over the last 24 hours. Again her chest x-ray is showing improvement and clinically the patient is feeling better and she is down to 3 L nasal cannula. Blood cultures are preliminary positive for gram-positive cocci. Final report is pending WBC count is 8.3 hemoglobin 7.3 Electrolytesenc normal bicarb is 35 BUN is 19 and creatinine 1.11. Chest x-ray is showing definite improvement in her multifocal infiltrates/interstitial edema. The patient is seen today 12/30/2022 in follow-up in the intensive care unit. She is currently sitting up in bed. Awake and alert in no acute distress. She is maintaining O2 saturations in the 90s on 2 L/m per nasal cannula. She did utilize BiPAP 14/6 and 40% FiO2 through the night. She has normal saline at KVO. No worsening shortness of breath, cough or congestion. No arrhythmias. White count 8.4. Hemoglobin 7.4. Platelets 150. Sodium 133. Potassium 3.6. Bicarb 34. BUN 20. Creatinine 1.08. Glucose 130. Chest x-ray shows car diomegaly and mild pulmonary vascular congestion. Urine culture reveals no growth. Blood cultures with positive cocci and clusters. Currently on vancomycin and Zosyn. Remains on IV diuretics. Currently in a -2.4 L balance. Anticoagulated with Xarelto. The patient is seen today 12/31/2022 in follow-up in the intensive care unit. She is sitting up in bed. Awake and alert in no acute distress. Maintaining good O2 saturations in the 90s on 3 L/m per nasal cannula. She did utilize the BiPAP last night 14/6 at 40% FiO2. Urine culture revealed no growth. Blood cultures are pending. Creatinine 1.01. GFR 57. Glucose 184. Procalcitonin was 0.15. She is currently on vancomycin and Zosyn. Anticoagulated with Xarelto. Remains on IV diuretics. Currently in a -1.6 L balance. The patient is seen today 01/01/2023 in follow-up on the regular medical floor. She is currently resting comfortably in bed. Awake and alert in no acute distress. Maintaining O2 saturations in the 90s on 1 L/m per nasal cannula. She did utilize BiPAP last night 18/09 at 40% FiO2. No IV fluids. Urine culture reveal no growth. Creatinine 1.19. GFR 47. Random vancomycin 13.6. She remains on vancomycin and Zosyn. Anticoagulated with Xarelto. Remains on IV diuretics. Currently in a -2.4 L balance. The patient is seen today 01/02/2023 in follow-up on the regular medical floor. She is resting comfortably in bed. Awake and alert in no acute distress. Maintaining O2 saturations in the 90s on 3 L/m per nasal cannula. She has normal saline at [facility]. Blood cultures are positive for staph epidermidis. Urine culture revealed no growth. White count 7.9. Hemoglobin 6.7. Platelets 163. Sodium 140. Potassium 3.8. Bicarb 38. BUN 19. Creatinine 1.1. Glucose 133. Troponins negative 2. Currently in a -1.3 L balance. 1 unit of packed red blood cells has been ordered. The patient is seen today 01/03/2023 in follow-up on the regular medical floor. Currently sitting up in bed. Awake and alert in no acute distress. Continues to maintain good O2 saturations in the mid 90s on 3 L/m per nasal cannula. She's afebrile. Hemodynamically stable. Sodium 136. Potassium 4.5. Bicarb 3 5. BUN 22. Creatinine 0.92. Glucose 135. Yesterday's hemoglobin did drop to 6.7. She received packed of red blood cells. Follow-up CBC pending. Plan is for EGD/colonoscopy on 01/06/2023. Xarelto and aspirin on hold. The patient is seen today 01/04/2023 in follow-up on the regular medical floor. She is currently resting in bed. Awake and alert in no acute distress. Continue good O2 saturations in the 90s on 3 L/m per nasal cannula. Afebrile. Hemodynamically stable. She is status post 1 unit of packed red blood cells this admission. Current hemoglobin 9.1. Platelets 177. Sodium 134. Potassium 4.2. Bicarb 33. BUN 18. Creatinine 0.81. Glucose 162. Xarelto and aspirin on hold. Plan is for EGD/colonoscopy on 01/06/2023. Patient is seen today 01/05/2023 in follow-up on the regular medical floor. She is awake and alert in no acute distress. Sitting up in bed. Denies any worsening shortness of breath, cough or congestion. Continue good O2 saturations in the mid to upper 90s on 3 L/m per nasal cannula. She remains afebrile. Hemodynamically stable. No active GI bleeding noted. White count 7.9. Hemoglobin 9.1. Platelets 185. Sodium 136. Potassium 4.5. Bicarb 36. BUN 17. Creatinine 0.83. Glucose 137. She remains in a -2.6 L balance. Plan is for EGD/colonoscopy tomorrow. Objective - Vital Signs Vital signs: Vital Signs Temp 98.3 F 01/05/23 07:12 Pulse 81 01/05/23 07:30 Resp 15 01/05/23 07:30 BP 113/52 01/05/23 07:12 Pulse Ox 95 01/05/23 07:52 FiO2 40 12/31/22 07:35 Intake & Output 01/04/23 01/05/23 01/05/23 18:59 06:59 18:59 Output Total 1999 600 700 Balance -1999 -600 -700 Output: Urine 1999 600 700 Other: Voiding Method Toilet Toilet Toilet Diaper Diaper Diaper External Catheter External Catheter External Catheter - Exam GENERAL EXAM: Alert, obese 67-year-old female, on 3 L nasal cannula, in no apparent distress. HEAD: Normocephalic. EYES: Normal reaction of pupils, equal size. NOSE: Clear with pink turbinates. THROAT: No erythema or exudates. NECK: No masses, no JVD. CHEST: No chest wall deformity. LUNGS: Equal air entry with crackles in the posterior bases. CVS: S1 and S2 normal with no audible murmur, regular rhythm. ABDOMEN: No hepatosplenomegaly, normal bowel sounds, no guarding or rigidity. SPINE: No scoliosis or deformity SKIN: No rashes CENTRAL NERVOUS SYSTEM: No focal deficits, tone is normal in all 4 extremities. EXTREMITIES: There is 1-2+ peripheral edema. No clubbing, no cyanosis. Peripheral pulses are intact. - Labs CBC & Chem 7: 01/05/23 08:41 01/05/23 06:57 Labs: Abnormal Lab Results - Last 24 Hours (Table) 01/04/23 01/04/23 01/05/23 Range/Units 16:23 20:27 05:52 RBC (3.80-5.40) m/uL Hgb (11.4-16.0) gm/dL Hct (34.0-46.0) % MCHC (31.0-37.0) g/dL RDW (11.5-15.5) % Sodium (137-145) mmol/L Chloride (98-107) mmol/L Carbon Dioxide (22-30) mmol/L Glucose (74-99) mg/dL POC Glucose (mg/dL) 178 H 202 H 154 H (70-110) mg/dL 01/05/23 01/05/23 01/05/23 Range/Units 06:57 07:01 08:41 RBC 3.60 L (3.80-5.40) m/uL Hgb 9.1 L (11.4-16.0) gm/dL Hct 30.8 L (34.0-46.0) % MCHC 29.6 L (31.0-37.0) g/dL RDW 18.1 H (11.5-15.5) % Sodium 136 L (137-145) mmol/L Chloride 97 L (98-107) mmol/L Carbon Dioxide 36 H (22-30) mmol/L Glucose 137 H (74-99) mg/dL POC Glucose (mg/dL) 142 H (70-110) mg/dL 01/05/23 Range/Units 11:10 RBC (3.80-5.40) m/uL Hgb (11.4-16.0) gm/dL Hct (34.0-46.0) % MCHC (31.0-37.0) g/dL RDW (11.5-15.5) % Sodium (137-145) mmol/L Chloride (98-107) mmol/L Carbon Dioxide (22-30) mmol/L Glucose (74-99) mg/dL POC Glucose (mg/dL) 175 H (70-110) mg/dL Assessment and Plan Assessment: Witnessed syncope, possible cardiac arrest, status post CPR for 5 minutes with return of spontaneous circulation on 12/27/2022 Acute hypoxic and hypercapnic respiratory failure secondary to above, improved currently on 3 L nasal cannula alternating with BiPAP Suspect aspiration pneumonia and completed Zosyn, pro-calcitonin 0.15 Suspect acute on chronic systolic congestive heart failure ejection fraction of 35-40%, with superimposed pneumonia Chronic atrial fibrillation, anticoagulated with Xarelto Anemia with a drop in hemoglobin to 6.7, received 1 unit of packed red blood cells, follow-up hemoglobin 9.1. Plan for EGD/colonoscopy 01/06/2023 Chronic urinary tract infection Morbid obesity, BMI of 47.2 History of underlying coronary artery disease History of CVA/TIA Benign essential hypertension Dyslipidemia Degenerative joint disease Hypothyroidism Fibromyalgia History of DVT and pulmonary embolism Chronic kidney disease stage III Diabetic neuropathy and nephropathy History of hypertension Gram-positive bacteremia, final report is pending Plan: The patient was seen and evaluated Medications and labs reviewed Stable on 3 L nasal cannula Xarelto and aspirin on hold Plan is for EGD/colonoscopy on 01/06/2023 We will continue to follow I have personally seen and examined the patient, performed the documentation and the assessment and plan as written. Number of minutes spent on the visit: 10.
--- NOTE | 2023-01-05 14:32 | P.PN ---
Subjective Progress Note Date: 01/05/23 67-year-old lady with past medical history significant for atrial fibrillation, coronary artery disease, congestive heart failure, diabetes mellitus, hyperlipidemia, history of pulmonary embolism, history of CVA presented to the emergency department sent in for a witnessed episode of syncope. Patient was unresponsive per nursing staff could not feel a pulse in the started CPR. 3 rounds of CPR was done. Patient was not given shocks or medications. Patient just had chest compressions done 1 EMS arrived patient was alert and responsive. However could not remember the incident workup initiated in ER showed CT head that was negative, CT abdomen and pelvis was negative. Chest x-ray was done which showed multifocal opacities. CBC obtained showed elevated white cell count with left shift. Basic metabolic panel showed sodium of 136 potassium 4.6, potassium 34 BUN 19 creatinine 0.95. Troponin obtained negative. 12/29: Patient seen and evaluated at bedside. Patient remains in ICU for bypass of the night. [place] BiPAP through the night continue patient on oxygen supplementation. Chest x-ray does show focal infiltrates. Blood cultures show coagulase-negative staph likely contamination 01/04/2023 Patient is seen and evaluated in room at bedside. She is currently resting in bed. Awake and alert in no acute distress. Continue good O2 saturations in the 90s on 3 L/m per nasal cannula. Afebrile. Hemodynamically stable. She is status post 1 unit of packed red blood cells this admission. Current hemoglobin 9.1. Platelets 177. Sodium 134. Potassium 4.2. Bicarb 33. BUN 18. Creatinine 0.81. Glucose 162. Xarelto and aspirin on hold. Plan is for EGD/colonoscopy on 01/06/2023. 01/05/2023 Patient seen and evaluated in follow-up on the regular medical floor. She is awake and alert in no acute distress. Sitting up in bed. Denies any worsening shortness of breath, cough or congestion. No active GI bleed Vital signs are reviewed and stable with O2 saturations in the mid to upper 90s on 3 L/m per nasal cannula. She remains afebrile. -- White count 7.9. Hemoglobin 9.1. Platelets 185. Sodium 136. Potassium 4.5. Bicarb 36. BUN 17. Creatinine 0.83. Glucose 137 -- Plan is for EGD/colonoscopy tomorrow. Aspirin and Xarelto remains on hold Objective - Vital Signs Vital signs: Vital Signs Temp 98.3 F 01/05/23 07:12 Pulse 81 01/05/23 07:30 Resp 15 01/05/23 07:30 BP 113/52 01/05/23 07:12 Pulse Ox 95 01/05/23 07:52 FiO2 40 12/31/22 07:35 Intake & Output 01/04/23 01/05/23 01/05/23 18:59 06:59 18:59 Output Total 1999 600 700 Balance -1999600 -700 Output: Urine 1999 600 700 Other: Voiding Method Toilet Toilet Toilet Diaper Diaper Diaper External Catheter External Catheter External Catheter - Exam GENERAL: The patient is alert and oriented x3, not in any acute distress. Well developed, well nourished. HEENT: Pupils are round and equally reacting to light. EOMI. No scleral icterus. No conjunctival pallor. Normocephalic, atraumatic. No pharyngeal erythema. No thyromegaly. CARDIOVASCULAR: S1 and S2 present. No murmurs, rubs, or gallops. PULMONARY: Chest is clear to auscultation, no wheezing , no crackles. ABDOMEN: Soft, nontender, nondistended, normoactive bowel sounds. No palpable organomegaly. MUSCULOSKELETAL: No joint swelling or deformity. EXTREMITIES: No cyanosis, clubbing, or pedal edema. NEUROLOGICAL: Gross neurological examination did not reveal any focal deficits. SKIN: No rashes. no petechiae. - Labs CBC & Chem 7: 01/05/23 08:41 01/05/23 06:57 Labs: Abnormal Lab Results - Last 24 Hours (Table) 01/04/23 01/04/23 01/05/23 Range/Units 16:23 20:27 05:52 RBC (3.80-5.40) m/uL Hgb (11.4-16.0) gm/dL Hct (34.0-46.0) % MCHC (31.0-37.0) g/dL RDW (11.5-15.5) % Sodium (137-145) mmol/L Chloride (98-107) mmol/L Carbon Dioxide (22-30) mmol/L Glucose (74-99) mg/dL POC Glucose (mg/dL) 178 H 202 H 154 H (70-110) mg/dL 01/05/23 01/05/23 01/05/23 Range/Units 06:57 07:01 08:41 RBC 3.60 L (3.80-5.40) m/uL Hgb 9.1 L (11.4-16.0) gm/dL Hct 30.8 L (34.0-46.0) % MCHC 29.6 L (31.0-37.0) g/dL RDW 18.1 H (11.5-15.5) % Sodium 136 L (137-145) mmol/L Chloride 97 L (98-107) mmol/L Carbon Dioxide 36 H (22-30) mmol/L Glucose 137 H (74-99) mg/dL POC Glucose (mg/dL) 142 H (70-110) mg/dL 01/05/23 Range/Units 11:10 RBC (3.80-5.40) m/uL Hgb (11.4-16.0) gm/dL Hct (34.0-46.0) % MCHC (31.0-37.0) g/dL RDW (11.5-15.5) % Sodium (137-145) mmol/L Chloride (98-107) mmol/L Carbon Dioxide (22-30) mmol/L Glucose (74-99) mg/dL POC Glucose (mg/dL) 175 H (70-110) mg/dL Assessment and Plan Assessment: Syncope with possible cardiac arrest Acute hypoxic respiratory failure, improving Aspiration pneumonia Acute on chronic systolic CHF, EF 35-40%. Chronic atrial fibrillation on xarelto Plan: Patient currently on IV vancomycin and Zosyn per pulmonary team IV Lasix 40 mg twice a day Hold aspirin and Xarelto 10 mg. Change Protonix and to IV. Appointment of blood transfusion Surgery team consult Pulmonary/critical care team on the case Cardiology consult Labs and medication were reviewed.. Continue same treatment. Continue with symptomatic treatment. Resume home medication. Monitor labs and vitals. DVT and GI prophylaxis. Further recommendations as per clinical course of the patient DVT prophylaxis: xarelto GI Prophylaxis: Ppi Prognosis is guarded
[2023-01-05 16:47] LABS: Glucose,Whole Blood 120 mg/dL (70-110)
[2023-01-05 20:10] LABS: Glucose,Whole Blood 131 mg/dL (70-110)
[2023-01-05] MEDS: ATORVASTATIN 80 MG TAB PO SCH (21:30)
[2023-01-05] MEDS: MONTELUKAST 10 MG TAB PO SCH (21:30)
[2023-01-05] MEDS: MELATONIN 5 MG TABLET PO SCH (21:30)
[2023-01-06 05:53] LABS: Glucose,Whole Blood 133 mg/dL (70-110)
[2023-01-06] MEDS: INSULIN ASPART (NovoLOG) 100 UNIT/ML VIAL SQ SCH ×4 (05:56→21:24)
[2023-01-06] MEDS: LEVOTHYROXINE 125 MCG TAB PO SCH (06:33)
[2023-01-06] MEDS: FUROSEMIDE 40 MG TAB PO SCH (08:01)
[2023-01-06] MEDS: PANTOPRAZOLE 40 MG/10 ML VIAL IVP SCH (08:01)
[2023-01-06] MEDS: METOPROLOL SUCCINATE (ER) 50 MG TAB.ER.24H PO SCH (08:01)
[2023-01-06] MEDS: ISOSORBIDE MONONITRATE ER 30 MG TAB.ER.24H PO SCH (08:01)
[2023-01-06] MEDS: busPIRone HCl 10 MG TAB PO SCH ×2 (08:01→21:25)
[2023-01-06] MEDS: allopurinoL 100 MG TAB PO SCH (08:01)
[2023-01-06 08:06] LABS: African American GFR (CKD) 85 (>60 ml/min/1.73 sqM); Anion Gap 6 mmol/L; Blood Urea Nitrogen 15 mg/dL (7-17); Calcium 8.7 mg/dL (8.4-10.2); Carbon Dioxide 34 mmol/L (22-30); Chloride 99 mmol/L (98-107); Glucose 126 mg/dL (74-99); Non-African American GFR(CKD) 74 (>60 ml/min/1.73 sqM); Potassium 4.5 mmol/L (3.5-5.1); Sodium 139 mmol/L (137-145)
[2023-01-06] MEDS: DULoxetine HCL 30 MG CAPSULE.DR PO SCH ×2 (09:48→21:25)
[2023-01-06] MEDS: CYANOCOBALAMIN 500 MCG TAB PO SCH (09:48)
[2023-01-06 10:05] LABS: Anisocytosis Slight; HCT 27.6 % (34.0-46.0); HGB 8.2 gm/dL (11.4-16.0); Hypochromasia Marked; MCH 25.1 pg (25.0-35.0); MCHC 29.9 g/dL (31.0-37.0); MCV 83.8 fL (80.0-100.0); Mean Platelet Volume 6.7; Platelet Count 174 k/uL (150-450); Poikilocytosis Slight; RBC 3.29 m/uL (3.80-5.40); RDW 18.7 % (11.5-15.5); WBC 6.8 k/uL (3.8-10.6)
[2023-01-06] MEDS: ALBUTEROL NEBULIZED 2.5 MG/3 ML INHALATION PRN ×2 (11:03→15:22)
[2023-01-06 11:14] LABS: Glucose,Whole Blood 137 mg/dL (70-110)
--- NOTE | 2023-01-06 14:07 | P.PN ---
Subjective Progress Note Date: 01/06/23 This is a 67-year-old female, [facility] resident, known history of multiple medical problems including chronic atrial fibrillation, asthma, coronary artery disease and previous stent placement, chronic congestive heart failure, history of CVA/TIA history of degenerative joint disease, recent history of urinary tract infection and pyelonephritis with hydronephrosis. 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 Patient had a witnessed syncopal episode while at the [facility], patient went unresponsive as the nursing staff were transferring the patient back to her bed for bedtime. Again the patient underwent 3 rounds of CPR and obtained return of spontaneous circulation. No shocks were given. No medications were given. Patient had basically on the 3 rounds of CPR. When EMS arrived, the patient was responsive, but she couldn't remember the incident, and she appeared to be alert and oriented 3 at the time. Patient was noted to have difficulty breathing, but she had no chest pain, no abdominal pain, no nausea, no vomiting. Patient was brought into the ER, and again did not require intubation or mechanical ventilation, patient was placed on BiPAP initially. ABG showed a pO2 of 100 pCO2 67 pH of 7.28 she was later transitioned to 4 L nasal cannula. Workup also included CT of the brain which came back negative CT abdomen and pelvis negative chest x-ray showed evidence of bilateral opacities, it is difficult to tell whether the findings are findings of aspiration pneumonia or could be related to ongoing chronic congestive heart failure. BNP level was not elevated. Pro-calcitonin level is pending. Patient does seem to have an infected urine with pyuria and bacteriuria noted in the urinalysis. Basic metabolic profile was noted to be normal lactic acid this morning is 1.2, it was 2.9 on admission. WBC count 15.5 hemoglobin 8.4. Considering the findings on chest x-ray, patient was kept on vancomycin and Zosyn empirically. Patient is also on Lasix 40 mg IV push every 12 hours, and she is chronically on Xarelto which will remain the same. Patient does have previous history of DVT and pulmonary embolism as well as chronic atrial fibrillation. Reevaluated today on 12/29/2022, patient remains in the ICU. Patient is doing better today, she is on 3 L nasal cannula she was on BiPAP last night with IPAP of 14 and EPAP of 6 FiO2 40%. She did improve with Lasix 40 mg IV push every 12 hours she is also receiving antibiotics empirically, blood cultures positive for gram-positive cocci. Patient is -2.3 L over the last 24 hours. Again her chest x-ray is showing improvement and clinically the patient is feeling better and she is down to 3 L nasal cannula. Blood cultures are preliminary positive for gram-positive cocci. Final report is pending WBC count is 8.3 hemoglobin 7.3 Electrolytesenc normal bicarb is 35 BUN is 19 and creatinine 1.11. Chest x-ray is showing definite improvement in her multifocal infiltrates/interstitial edema. The patient is seen today 12/30/2022 in follow-up in the intensive care unit. She is currently sitting up in bed. Awake and alert in no acute distress. She is maintaining O2 saturations in the 90s on 2 L/m per nasal cannula. She did utilize BiPAP 14/6 and 40% FiO2 through the night. She has normal saline at KVO. No worsening shortness of breath, cough or congestion. No arrhythmias. White count 8.4. Hemoglobin 7.4. Platelets 150. Sodium 133. Potassium 3.6. Bicarb 34. BUN 20. Creatinine 1.08. Glucose 130. Chest x-ray shows ca rdiomegaly and mild pulmonary vascular congestion. Urine culture reveals no growth. Blood cultures with positive cocci and clusters. Currently on vancomycin and Zosyn. Remains on IV diuretics. Currently in a -2.4 L balance. Anticoagulated with Xarelto. The patient is seen today 12/31/2022 in follow-up in the intensive care unit. She is sitting up in bed. Awake and alert in no acute distress. Maintaining good O2 saturations in the 90s on 3 L/m per nasal cannula. She did utilize the BiPAP last night 14/6 at 40% FiO2. Urine culture revealed no growth. Blood cultures are pending. Creatinine 1.01. GFR 57. Glucose 184. Procalcitonin was 0.15. She is currently on vancomycin and Zosyn. Anticoagulated with Xarelto. Remains on IV diuretics. Currently in a -1.6 L balance. The patient is seen today 01/01/2023 in follow-up on the regular medical floor. She is currently resting comfortably in bed. Awake and alert in no acute distress. Maintaining O2 saturations in the 90s on 1 L/m per nasal cannula. She did utilize BiPAP last night 18/09 at 40% FiO2. No IV fluids. Urine culture reveal no growth. Creatinine 1.19. GFR 47. Random vancomycin 13.6. She remains on vancomycin and Zosyn. Anticoagulated with Xarelto. Remains on IV diuretics. Currently in a -2.4 L balance. The patient is seen today 01/02/2023 in follow-up on the regular medical floor. She is resting comfortably in bed. Awake and alert in no acute distress. Maintaining O2 saturations in the 90s on 3 L/m per nasal cannula. She has normal saline at [facility]. Blood cultures are positive for staph epidermidis. Urine culture revealed no growth. White count 7.9. Hemoglobin 6.7. Platelets 163. Sodium 140. Potassium 3.8. Bicarb 38. BUN 19. Creatinine 1.1. Glucose 133. Troponins negative 2. Currently in a -1.3 L balance. 1 unit of packed red blood cells has been ordered. The patient is seen today 01/03/2023 in follow-up on the regular medical floor. Currently sitting up in bed. Awake and alert in no acute distress. Continues to maintain good O2 saturations in the mid 90s on 3 L/m per nasal cannula. She's afebrile. Hemodynamically stable. Sodium 136. Potassium 4.5. Bicarb 35. BUN 22. Creatinine 0.92. Glucose 135. Yesterday's hemoglobin did drop to 6.7. She received packed of red blood cells. Follow-up CBC pending. Plan is for EGD/colonoscopy on 01/06/2023. Xarelto and aspirin on hold. The patient is seen today 01/04/2023 in follow-up on the regular medical floor. She is currently resting in bed. Awake and alert in no acute distress. Continue good O2 saturations in the 90s on 3 L/m per nasal cannula. Afebrile. Hemodynamically stable. She is status post 1 unit of packed red blood cells this admission. Current hemoglobin 9.1. Platelets 177. Sodium 134. Potassium 4.2. Bicarb 33. BUN 18. Creatinine 0.81. Glucose 162. Xarelto and aspirin on hold. Plan is for EGD/colonoscopy on 01/06/2023. Patient is seen today 01/05/2023 in follow-up on the regular medical floor. She is awake and alert in no acute distress. Sitting up in bed. Denies any worsening shortness of breath, cough or congestion. Continue good O2 saturations in the mid to upper 90s on 3 L/m per nasal cannula. She remains afebrile. Hemodynamically stable. No active GI bleeding noted. White count 7.9. Hemoglobin 9.1. Platelets 185. Sodium 136. Potassium 4.5. Bicarb 36. BUN 17. Creatinine 0.83. Glucose 137. She remains in a -2.6 L balance. Plan is for EGD/colonoscopy tomorrow. On today's evaluation of 2022, the patient is resting comfortably in bed. No new complaints. The patient is currently on 3 L of oxygen by nasal cannula with a pulse ox of 98%. The patient also has a WBC done of 6.8 with a hemoglobin of 8.2. The plan is to undergo an EGD and colonoscopy today. For that reason, the patient has been kept nothing by mouth. She is morbidly obese with a BMI of 47.2. She is known to have multiple medical problems and comorbidities. The patient has had a previous CVA in addition to coronary artery disease with previous coronary intervention and stenting, chronic systolic heart failure and the patient has a left ventricular ejection fraction of 45%, moderate degree of pulmonary hypertension and a small pericardial effusion,, previous history of DVT and pulmonary embolism and hypothyroidism and diabetes mellitus type 2 with diabetic neuropathy. The patient also suffers from chronic atrial fibrillation. The patient was taken anticoagulation without on outpatient basis. Objective - Vital Signs Vital signs: Vital Signs Temp 98.3 F 01/06/23 07:01 Pulse 72 01/06/23 11:12 Resp 14 01/06/23 07:01 BP 129/76 01/06/23 07:01 Pulse Ox 98 01/06/23 07:01 FiO2 40 12/31/22 07:35 Intake & Output 01/05/23 01/06/23 01/06/23 18:59 06:59 18:59 Intake Total 2160 Output Total 2300 1052 Balance -140 -1052 Intake: Oral 2160 Output: Urine 2300 1050 Urine/Stool Mix 2 Other: Voiding Method Toilet Toilet Diaper Diaper External Catheter External Catheter # Bowel Movements 1 - Exam GENERAL EXAM: Alert, obese 67-year-old female, on 3 L nasal cannula, in no apparent distress. HEAD: Normocephalic. EYES: Normal reaction of pupils, equal size. NOSE: Clear with pink turbinates. THROAT: No erythema or exudates. NECK: No masses, no JVD. CHEST: No chest wall deformity. LUNGS: Equal air entry with crackles in the posterior bases. CVS: S1 and S2 normal with no audible murmur, regular rhythm. ABDOMEN: No hepatosplenomegaly, normal bowel sounds, no guarding or rigidity. SPINE: No scoliosis or deformity SKIN: No rashes CENTRAL NERVOUS SYSTEM: No focal deficits, tone is normal in all 4 extremities. EXTREMITIES: There is 1-2+ peripheral edema. No clubbing, no cyanosis. Peripheral pulses are intact. - Labs CBC & Chem 7: 01/06/23 09:11 01/06/23 05:59 Labs: Abnormal Lab Results - Last 24 Hours (Table) 01/05/23 01/05/23 01/06/23 Range/Units 16:46 20:09 05:52 RBC (3.80-5.40) m/uL Hgb (11.4-16.0) gm/dL Hct (34.0-46.0) % MCHC (31.0-37.0) g/dL RDW (11.5-15.5) % Carbon Dioxide (22-30) mmol/L Glucose (74-99) mg/dL POC Glucose (mg/dL) 120 H 131 H 133 H (70-110) mg/dL 01/06/23 01/06/23 01/06/23 Range/Units 05:59 09:11 11:12 RBC 3.29 L (3.80-5.40) m/uL Hgb 8.2 L (11.4-16.0) gm/dL Hct 27.6 L (34.0-46.0) % MCHC 29.9 L (31.0-37.0) g/dL RDW 18.7 H (11.5-15.5) % Carbon Dioxide 34 H (22-30) mmol/L Glucose 126 H (74-99) mg/dL POC Glucose (mg/dL) 137 H (70-110) mg/dL Assessment and Plan Plan: Witnessed syncope, possible cardiac arrest, status post CPR for 5 minutes with return of spontaneous circulation on 12/27/2022, currently awake and alert without any significant neurological deficits Acute hypoxic and hypercapnic respiratory failure secondary to above, improved currently on 3 L nasal cannula and the patient is currently off the BiPAP Suspect aspiration pneumonia and completed Zosyn, pro-calcitonin 0.15, the patient has completed antibiotic course chronic systolic congestive heart failure ejection fraction of 45 %, with superimposed pneumonia Chronic atrial fibrillation, anticoagulated with Xarelto Anemia with a drop in hemoglobin to 6.7, received 1 unit of packed red blood cells, follow-up hemoglobin 9.1. Plan for EGD/colonoscopy 01/06/2023, mother the patient was receiving anticoagulation with Xarelto on outpatient basis Chronic urinary tract infection Morbid obesity, BMI of 47.2 History of underlying coronary artery disease History of CVA/TIA Benign essential hypertension Dyslipidemia Degenerative joint disease Hypothyroidism Fibromyalgia History of DVT and pulmonary embolism Chronic kidney disease stage III Diabetic neuropathy and nephropathy History of hypertension Gram-positive bacteremia, final report is pending Plan: Awaiting colonoscopy and EGD. Meanwhile the patient will be kept on anticoagulants Stable on 3 L nasal cannula Overall pulmonary status is stable and the patient is currently resting comfortably in bed Plan is for EGD/colonoscopy on 01/06/2023 We will continue to follow
[2023-01-06] MEDS ORDERED: PROPOFOL 10 MG/ML 20 ML VIAL IV ONE (14:11)
[2023-01-06] MEDS ORDERED: IV FLUID CONTINUATION 1,000 ML IV ONE ×2 (14:14)
--- NOTE | 2023-01-06 14:21 | P.PN ---
Subjective Progress Note Date: 01/06/23 Patient seen at 9:30 this morning CHIEF COMPLAINT: Syncope HISTORY OF PRESENT ILLNESS: Patient sitting in bed comfortably. Denies any abdominal pain. Denies any nausea or vomiting. Denies any blood in her stools. Stools are clear. Completed GoLYTELY bowel prep yesterday. Vital stable. Hgb 9.1 down to 8.2 PHYSICAL EXAM: VITAL SIGNS: Reviewed. GENERAL: Well-developed in no acute distress. ABDOMEN: Soft. Nondistended. Nontender. NEUROLOGIC: Alert and oriented. Cranial nerves II through XII grossly intact. ASSESSMENT: 1. Anemia PLAN: -Patient scheduled for EGD and colonoscopy today with Dr. farley Physician Heat Pump Installer note has been reviewed by physician. Signing provider agrees with the documented findings, assessment, and plan of care. Objective - Vital Signs Vital signs: Vital Signs Temp 98.3 F 01/06/23 07:01 Pulse 72 01/06/23 11:12 Resp 14 01/06/23 07:01 BP 129/76 01/06/23 07:01 Pulse Ox 98 01/06/23 07:01 FiO2 40 12/31/22 07:35 Intake & Output 01/05/23 01/06/23 01/06/23 18:59 06:59 18:59 Intake Total 2160 Output Total 2300 1052 Balance -140 -1052 Intake: Oral 2160 Output: Urine 2300 1050 Urine/Stool Mix 2 Other: Voiding Method Toilet Toilet Diaper Diaper External Catheter External Catheter # Bowel Movements 1 - Labs CBC & Chem 7: 01/06/23 09:11 01/06/23 05:59 Labs: Abnormal Lab Results - Last 24 Hours (Table) 01/05/23 01/05/23 01/06/23 Range/Units 16:46 20:09 05:52 RBC (3.80-5.40) m/uL Hgb (11.4-16.0) gm/dL Hct (34.0-46.0) % MCHC (31.0-37.0) g/dL RDW (11.5-15.5) % Carbon Dioxide (22-30) mmol/L Glucose (74-99) mg/dL POC Glucose (mg/dL) 120 H 131 H 133 H (70-110) mg/dL 1001/06/23 01/06/23 Range/Units 05:59 09:11 11:12 RBC 3.29 L (3.80-5.40) m/uL Hgb 8.2 L (11.4-16.0) gm/dL Hct 27.6 L (34.0-46.0) % MCHC 29.9 L (31.0-37.0) g/dL RDW 18.7 H (11.5-15.5) % Carbon Dioxide 34 H (22-30) mmol/L Glucose 126 H (74-99) mg/dL POC Glucose (mg/dL) 137 H (70-110) mg/dL
--- NOTE | 2023-01-06 14:37 | P.OP ---
Date of Procedure: 01/06/23 Preoperative Diagnosis: Anemia Postoperative Diagnosis: Antral gastritis Normal colonoscopy, poor prep Procedure(s) Performed: EGD Colonoscopy Anesthesia: MAC Surgeon: Prakash Early Pathology: other (Antrum) Condition: stable Disposition: PACU Description of Procedure: The patient's placed on the endoscopy table in the lateral position. She received IV sedation. The gastro-/oropharynx passed in the esophagus and stomach. Scope was then placed through the pylorus. The first and second portion of the duodenum appeared normal. Scope summer back the antrum this. Mildly inflamed. A biopsies performed. The scope was unretroflexed and remainder the stomach appeared normal. The GE junction was at 40 cm per the distal esophagus appeared normal. The proximal esophagus appeared normal. There is no evidence of any upper GI bleed. The scope was then withdrawn. Next digital rectal exam was performed. There was a large amount liquid stool. Patient had a poor colon prep. Flexible colonoscope was then placed patient anus passed with colon. The scope couldn't pass beyond the hepatic flexure secondary to poor bowel prep. Scope withdrawn. The visualized transverse colon, descending colon and sigmoid colon appeared normal however the view was limited due to the poor colon prep. Scope was brought back the rectum this appeared normal. Scope withdrawn for patient. There is no evidence of any lower GI bleed.
[2023-01-06 16:49] LABS: Glucose,Whole Blood 104 mg/dL (70-110)
[2023-01-06 21:16] LABS: Glucose,Whole Blood 184 mg/dL (70-110)
[2023-01-06] MEDS: MELATONIN 5 MG TABLET PO SCH (21:25)
[2023-01-06] MEDS: ATORVASTATIN 80 MG TAB PO SCH (21:25)
[2023-01-06] MEDS: MONTELUKAST 10 MG TAB PO SCH (21:25)
--- NOTE | 2023-01-06 23:36 | P.PN ---
Subjective Progress Note Date: 01/06/23 67-year-old lady with past medical history significant for atrial fibrillation, coronary artery disease, congestive heart failure, diabetes mellitus, hyperlipidemia, history of pulmonary embolism, history of CVA presented to the emergency department sent in for a witnessed episode of syncope. Patient was unresponsive per nursing staff could not feel a pulse in the started CPR. 3 rounds of CPR was done. Patient was not given shocks or medications. Patient just had chest compressions done 1 EMS arrived patient was alert and responsive. However could not remember the incident workup initiated in ER showed CT head that was negative, CT abdomen and pelvis was negative. Chest x-ray was done which showed multifocal opacities. CBC obtained showed elevated white cell count with left shift. Basic metabolic panel showed sodium of 136 potassium 4.6, potassium 34 BUN 19 creatinine 0.95. Troponin obtained negative. 12/29: Patient seen and evaluated at bedside. Patient remains in ICU for bypass of the night. [place] BiPAP through the night continue patient on oxygen supplementation. Chest x-ray does show focal infiltrates. Blood cultures show coagulase-negative staph likely contamination 01/04/2023 Patient is seen and evaluated in room at bedside. She is currently resting in bed. Awake and alert in no acute distress. Continue good O2 saturations in the 90s on 3 L/m per nasal cannula. Afebrile. Hemodynamically stable. She is status post 1 unit of packed red blood cells this admission. Current hemoglobin 9.1. Platelets 177. Sodium 134. Potassium 4.2. Bicarb 33. BUN 18. Creatinine 0.81. Glucose 162. Xarelto and aspirin on hold. Plan is for EGD/colonoscopy on 01/06/2023. 01/05/2023 Patient seen and evaluated in follow-up on the regular medical floor. She is awake and alert in no acute distress. Sitting up in bed. Denies any worsening shortness of breath, cough or congestion. No active GI bleed Vital signs are reviewed and stable with O2 saturations in the mid to upper 90s on 3 L/m per nasal cannula. She remains afebrile. -- White count 7.9. Hemoglobin 9.1. Platelets 185. Sodium 136. Potassium 4. 5. Bicarb 36. BUN 17. Creatinine 0.83. Glucose 137 -- Plan is for EGD/colonoscopy tomorrow. Aspirin and Xarelto remains on hold 01/06/2023 Patient is seen and evaluated in follow-up this morning currently nothing by mouth underwent bowel prep with plans for EGD/colonoscopy today. Anticoagula tion along with aspirin currently on hold. Hemoglobin is above 8 today with no active bleeding noted. Patient is afebrile with no reports of chest pain or shortness of breath. Patient continues on 3 L via nasal cannula and will continue. Wean FiO2 as tolerated. Patient to be evaluated by physical therapy with plans on returning to [facility]. Case management following working on submitting insurance authorization. Will resume diet and anticoagulation once cleared by surgery. Review of systems: Constitutional: No reports of fatigue, fever, or chills Cardiovascular: No reports of chest pain or palpitations Respiratory: No reports of shortness of breath or cough GI: No reports of nausea, vomiting, or diarrhea : No reports of dysuria or retention Neurovascular: No reports of weakness or numbness All medications have been reviewed Physical exam: GENERAL: The patient is alert and oriented x3, not in any acute distress. Well developed, well nourished. HEENT: Pupils are round and equally reacting to light. EOMI. No scleral icterus. No conjunctival pallor. Normocephalic, atraumatic. No pharyngeal erythema. No thyromegaly. CARDIOVASCULAR: S1 and S2 present. No murmurs, rubs, or gallops. PULMONARY: Chest is clear to auscultation, no wheezing , no crackles. ABDOMEN: Soft, nontender, nondistended, normoactive bowel sounds. No palpable organomegaly. MUSCULOSKELETAL: No joint swelling or deformity. EXTREMITIES: No cyanosis, clubbing, or pedal edema. NEUROLOGICAL: Gross neurological examination did not reveal any focal deficits. SKIN: No rashes. no petechiae. Assessment: Syncope with possible cardiac arrest Acute hypoxic respiratory failure, improving Aspiration pneumonia Acute on chronic systolic CHF, EF 35-40%. Chronic atrial fibrillation on xarelto Morbid obesity with a BMI of 47.2 GI prophylaxis DVT prophylaxis Full code Plan: Patient is out of the ICU with multiple medical consultations following Plan is for EGD/colonoscopy with general surgery today which showed a poor bowel prep for colonoscopy otherwise no active bleeding noted an EGD showing mild gastritis Will discuss further about resuming anticoagulation Hemoglobin is stable above 8 and will follow-up on repeat labs Case management following to submit for insurance authorization for return to [facility] Currently nothing by mouth and will discuss further with general surgery when okay to resume diet The impression and plan of care has been dictated by Gloria Cheung, Nurse Practitioner as directed. Dr. Paul MD I have performed a history and examination and MDM of this patient, discussed the same with the dictator, and agree with the dictator's assessment and plan as written ,documented as a scribe. Based on total visit time, I have performed more than 50% of the visit. Objective - Vital Signs Vital signs: Vital Signs Temp 98.3 F 01/06/23 07:01 Pulse 72 01/06/23 07:01 Resp 14 01/06/23 07:01 BP 129/76 01/06/23 07:01 Pulse Ox 98 01/06/23 07:01 FiO2 40 12/31/22 07:35 Intake & Output 01/05/23 01/06/23 01/06/23 18:59 06:59 18:59 Intake Total 2160 Output Total 2300 1052 Balance -140 -1052 Intake: Oral 2160 Output: Urine 2300 1050 Urine/Stool Mix 2 Other: Voiding Method Toilet Toilet Diaper Diaper External Catheter External Catheter - Labs CBC & Chem 7: 01/06/23 09:11 01/06/23 05:59 Labs: Abnormal Lab Results - Last 24 Hours (Table) 01/05/23 01/05/23 01/05/23 Range/Units 08:41 11:10 16:46 RBC 3.60 L (3.80-5.40) m/uL Hgb 9.1 L (11.4-16.0) gm/dL Hct 30.8 L (34.0-46.0) % MCHC 29.6 L (31.0-37.0) g/dL RDW 18.1 H (11.5-15.5) % Carbon Dioxide (22-30) mmol/L Glucose (74-99) mg/dL POC Glucose (mg/dL) 175 H 120 H (70-110) mg/dL 01/05/23 01/06/23 01/06/23 Range/Units 20:09 05:52 05:59 RBC (3.80-5.40) m/uL Hgb (11.4-16.0) gm/dL Hct (34.0-46.0) % MCHC (31.0-37.0) g/dL RDW (11.5-15.5) % Carbon Dioxide 34 H (22-30) mmol/L Glucose 126 H (74-99) mg/dL POC Glucose (mg/dL) 131 H 133 H (70-110) mg/dL
[2023-01-07 06:27] LABS: Glucose,Whole Blood 207 mg/dL (70-110)
[2023-01-07] MEDS: LEVOTHYROXINE 125 MCG TAB PO SCH (06:42)
[2023-01-07] MEDS: INSULIN ASPART (NovoLOG) 100 UNIT/ML VIAL SQ SCH ×4 (06:42→22:01)
[2023-01-07] MEDS: ALBUTEROL NEBULIZED 2.5 MG/3 ML INHALATION PRN ×3 (08:51→21:16)
[2023-01-07] MEDS: PANTOPRAZOLE 40 MG/10 ML VIAL IVP SCH (09:09)
[2023-01-07] MEDS: CYANOCOBALAMIN 500 MCG TAB PO SCH (09:10)
[2023-01-07] MEDS: ISOSORBIDE MONONITRATE ER 30 MG TAB.ER.24H PO SCH (09:10)
[2023-01-07] MEDS: FUROSEMIDE 40 MG TAB PO SCH (09:10)
[2023-01-07] MEDS: busPIRone HCl 10 MG TAB PO SCH ×2 (09:10→22:00)
[2023-01-07] MEDS: DULoxetine HCL 30 MG CAPSULE.DR PO SCH ×2 (09:10→22:00)
[2023-01-07] MEDS: METOPROLOL SUCCINATE (ER) 50 MG TAB.ER.24H PO SCH (09:10)
[2023-01-07] MEDS: allopurinoL 100 MG TAB PO SCH (09:10)
[2023-01-07 09:12] LABS: Basophils # (A) 0.04 X 10*3/uL (0.00-0.10); Basophils % (A) 0.6 %; Eosinophils # (A) 0.45 X 10*3/uL (0.04-0.35); Eosinophils % (A) 6.5 %; HCT 27.2 % (37.2-46.3); HGB 7.7 d/dL (12.0-15.0); Lymphocytes # (A) 1.42 X 10*3/uL (0.90-5.00); Lymphocytes % (A) 20.5 %; MCH 24.6 pg (27.0-32.0); MCHC 28.3 d/dL (32.0-37.0); MCV 86.9 FL (80.0-97.0); Mean Platelet Volume 9.3 FL (9.5-12.2); Monocytes # (A) 0.72 X 10*3/uL (0.20-1.00); Monocytes % (A) 10.4 %; NRBC Per 100 WBC 0 X 10*3/uL (0.00-0.01); Neutrophils # (A) 4.27 X 10*3/uL (1.80-7.70); Neutrophils % (A) 61.7 %; Platelet Count 153 X 10*3/uL (140-440); RBC 3.13 X 10*6/uL (4.10-5.20); RDW 18.9 % (11.5-14.5); WBC 6.92 X 10*3/uL (4.50-10.00)
[2023-01-07 09:37] LABS: BUN/Creat Ratio 14.22 Ratio (12.00-20.00); Blood Urea Nitrogen 12.8 mg/dL (9.0-27.0); Calcium 8.3 mg/dL (8.7-10.3); Carbon Dioxide 35.3 mmol/L (21.6-31.8); Chloride 100 mmol/L (96-109); Glucose 154 mg/dL (70-110); Magnesium 1.9 mg/dL (1.5-2.4); Potassium 3.8 mmol/L (3.5-5.5); Sodium 143 mmol/L (135-145)
[2023-01-07 11:46] LABS: Glucose,Whole Blood 176 mg/dL (70-110)
--- NOTE | 2023-01-07 12:54 | P.PN ---
Subjective Progress Note Date: 01/07/23 This is a 67-year-old female, custodial resident, known history of multiple medical problems including chronic atrial fibrillation, asthma, coronary artery disease and previous stent placement, chronic congestive heart failure, history of CVA/TIA history of degenerative joint disease, recent history of urinary tract infection and pyelonephritis with hydronephrosis. 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 Patient had a witnessed syncopal episode while at the custodial, patient went unresponsive as the nursing staff were transferring the patient back to her bed for bedtime. Again the patient underwent 3 rounds of CPR and obtained return of spontaneous circulation. No shocks were given. No medications were given. Patient had basically on the 3 rounds of CPR. When EMS arrived, the patient was responsive, but she couldn't remember the incident, and she appeared to be alert and oriented 3 at the time. Patient was noted to have difficulty breathing, but she had no chest pain, no abdominal pain, no nausea, no vomiting. Patient was brought into the ER, and again did not require intubation or mechanical ventilation, patient was placed on BiPAP initially. ABG showed a pO2 of 100 pCO2 67 pH of 7.28 she was later transitioned to 4 L nasal cannula. Workup also included CT of the brain which came back negative CT abdomen and pelvis negative chest x-ray showed evidence of bilateral opacities, it is difficult to tell whether the findings are findings of aspiration pneumonia or could be related to ongoing chronic congestive heart failure. BNP level was not elevated. Pro-calcitonin level is pending. Patient does seem to have an infected urine with pyuria and bacteriuria noted in the urinalysis. Basic metabolic profile was noted to be normal lactic acid this morning is 1.2, it was 2.9 on admission. WBC count 15.5 hemoglobin 8.4. Considering the findings on chest x-ray, patient was kept on vancomycin and Zosyn empirically. Patient is also on Lasix 40 mg IV push every 12 hours, and she is chronically on Xarelto which will remain the same. Patient does have previous history of DVT and pulmonary embolism as well as chronic atrial fibrillation. Reevaluated today on 12/29/2022, patient remains in the ICU. Patient is doing better today, she is on 3 L nasal cannula she was on BiPAP last night with IPAP of 14 and EPAP of 6 FiO2 40%. She did improve with Lasix 40 mg IV push every 12 hours she is also receiving antibiotics empirically, blood cultures positive for gram-positive cocci. Patient is -2.3 L over the last 24 hours. Again her chest x-ray is showing improvement and clinically the patient is feeling better and she is down to 3 L nasal cannula. Blood cultures are preliminary positive for gram-positive cocci. Final report is pending WBC count is 8.3 hemoglobin 7.3 Electrolytesenc normal bicarb is 35 BUN is 19 and creatinine 1.11. Chest x-ray is showing definite improvement in her multifocal infiltrates/interstitial edema. The patient is seen today 12/30/2022 in follow-up in the intensive care unit. She is currently sitting up in bed. Awake and alert in no acute distress. She is maintaining O2 saturations in the 90s on 2 L/m per nasal cannula. She did utilize BiPAP 14/6 and 40% FiO2 through the night. She has normal saline at KVO. No worsening shortness of breath, cough or congestion. No arrhythmias. White count 8.4. Hemoglobin 7.4. Platelets 150. Sodium 133. Potassium 3.6. Bicarb 34. BUN 20. Creatinine 1.08. Glucose 130. Chest x-ray shows ca rdiomegaly and mild pulmonary vascular congestion. Urine culture reveals no growth. Blood cultures with positive cocci and clusters. Currently on vancomycin and Zosyn. Remains on IV diuretics. Currently in a -2.4 L balance. Anticoagulated with Xarelto. The patient is seen today 12/31/2022 in follow-up in the intensive care unit. She is sitting up in bed. Awake and alert in no acute distress. Maintaining good O2 saturations in the 90s on 3 L/m per nasal cannula. She did utilize the BiPAP last night 14/6 at 40% FiO2. Urine culture revealed no growth. Blood cultures are pending. Creatinine 1.01. GFR 57. Glucose 184. Procalcitonin was 0.15. She is currently on vancomycin and Zosyn. Anticoagulated with Xarelto. Remains on IV diuretics. Currently in a -1.6 L balance. The patient is seen today 01/01/2023 in follow-up on the regular medical floor. She is currently resting comfortably in bed. Awake and alert in no acute distress. Maintaining O2 saturations in the 90s on 1 L/m per nasal cannula. She did utilize BiPAP last night 18/09 at 40% FiO2. No IV fluids. Urine culture reveal no growth. Creatinine 1.19. GFR 47. Random vancomycin 13.6. She remains on vancomycin and Zosyn. Anticoagulated with Xarelto. Remains on IV diuretics. Currently in a -2.4 L balance. The patient is seen today 01/02/2023 in follow-up on the regular medical floor. She is resting comfortably in bed. Awake and alert in no acute distress. Maintaining O2 saturations in the 90s on 3 L/m per nasal cannula. She has normal saline at [facility]. Blood cultures are positive for staph epidermidis. Urine culture revealed no growth. White count 7.9. Hemoglobin 6.7. Platelets 163. Sodium 140. Potassium 3.8. Bicarb 38. BUN 19. Creatinine 1.1. Glucose 133. Troponins negative 2. Currently in a -1.3 L balance. 1 unit of packed red blood cells has been ordered. The patient is seen today 01/03/2023 in follow-up on the regular medical floor. Currently sitting up in bed. Awake and alert in no acute distress. Continues to maintain good O2 saturations in the mid 90s on 3 L/m per nasal cannula. She's afebrile. Hemodynamically stable. Sodium 136. Potassium 4.5. Bicarb 35. BUN 22. Creatinine 0.92. Glucose 135. Yesterday's hemoglobin did drop to 6.7. She received packed of red blood cells. Follow-up CBC pending. Plan is for EGD/colonoscopy on 01/06/2023. Xarelto and aspirin on hold. The patient is seen today 01/04/2023 in follow-up on the regular medical floor. She is currently resting in bed. Awake and alert in no acute distress. Continue good O2 saturations in the 90s on 3 L/m per nasal cannula. Afebrile. Hemodynamically stable. She is status post 1 unit of packed red blood cells this admission. Current hemoglobin 9.1. Platelets 177. Sodium 134. Potassium 4.2. Bicarb 33. BUN 18. Creatinine 0.81. Glucose 162. Xarelto and aspirin on hold. Plan is for EGD/colonoscopy on 01/06/2023. Patient is seen today 01/05/2023 in follow-up on the regular medical floor. She is awake and alert in no acute distress. Sitting up in bed. Denies any worsening shortness of breath, cough or congestion. Continue good O2 saturations in the mid to upper 90s on 3 L/m per nasal cannula. She remains afebrile. Hemodynamically stable. No active GI bleeding noted. White count 7.9. Hemoglobin 9.1. Platelets 185. Sodium 136. Potassium 4.5. Bicarb 36. BUN 17. Creatinine 0.83. Glucose 137. She remains in a -2.6 L balance. Plan is for EGD/colonoscopy tomorrow. On today's evaluation of 2022, the patient is resting comfortably in bed. No new complaints. The patient is currently on 3 L of oxygen by nasal cannula with a pulse ox of 98%. The patient also has a WBC done of 6.8 with a hemoglobin of 8.2. The plan is to undergo an EGD and colonoscopy today. For that reason, the patient has been kept nothing by mouth. She is morbidly obese with a BMI of 47.2. She is known to have multiple medical problems and comorbidities. The patient has had a previous CVA in addition to coronary artery disease with previous coronary intervention and stenting, chronic systolic heart failure and the patient has a left ventricular ejection fraction of 45%, moderate degree of pulmonary hypertension and a small pericardial effusion,, previous history of DVT and pulmonary embolism and hypothyroidism and diabetes mellitus type 2 with diabetic neuropathy. The patient also suffers from chronic atrial fibrillation. The patient was taken anticoagulation without on outpatient basis. On 01/07/2023, the patient is stable. The patient underwent a EGD yesterday and showed antral gastritis. Colonoscopy was a poor prep. She is resting com fortably on a recliner. She has no specific complaints. She remains on room air oxygen with a pulse ox of 96%. The patient had a WBC count of 8.8 with a hemoglobin of 7.1 with a hemoglobin has remained stable since yesterday. BUN is at 3.5 with a creatinine of 0.6 and a sodium level is at 139 with a potassium level of 3.5. Electrolytes are all within normal limits. LFTs are also within normal limits. The blood cultures have been negative. The patient is known to have CAD, chronic systolic heart failure with an ejection fraction of 45%. The patient remains off anticoagulants, awaiting a clearance from surgery regarding safety of anticoagulations use. Objective - Vital Signs Vital signs: Vital Signs Temp 98.7 F 01/07/23 06:59 Pulse 76 01/07/23 09:03 Resp 18 01/07/23 06:59 BP 105/66 01/07/23 06:59 Pulse Ox 98 01/07/23 08:53 FiO2 40 12/31/22 07:35 Intake & Output 01/06/23 01/07/23 01/07/23 18:59 06:59 18:59 Intake Total 400 Output Total 800 400 Balance -400 -400 Intake: IV 400 Output: Urine 800 400 Other: Voiding Method Toilet Diaper Diaper External Catheter External Catheter # Bowel Movements 1 - Exam GENERAL EXAM: Alert, obese 67-year-old female, on 3 L nasal cannula, in no apparent distress. HEAD: Normocephalic. EYES: Normal reaction of pupils, equal size. NOSE: Clear with pink turbinates. THROAT: No erythema or exudates. NECK: No masses, no JVD. CHEST: No chest wall deformity. LUNGS: Equal air entry with crackles in the posterior bases. CVS: S1 and S2 normal with no audible murmur, regular rhythm. ABDOMEN: No hepatosplenomegaly, normal bowel sounds, no guarding or rigidity. SPINE: No scoliosis or deformity SKIN: No rashes CENTRAL NERVOUS SYSTEM: No focal deficits, tone is normal in all 4 extremities. EXTREMITIES: There is 1-2+ peripheral edema. No clubbing, no cyanosis. Peripheral pulses are intact. - Labs CBC & Chem 7: 01/07/23 05:37 01/07/23 05:37 Labs: Abnormal Lab Results - Last 24 Hours (Table) 01/06/23 01/06/23 01/07/23 Range/Units 11:12 21:15 05:37 RBC 3.13 L (4.10-5.20) X 10*6/uL Hgb 7.7 L (12.0-15.0) d/dL Hct 27.2 L (37.2-46.3) % MCH 24.6 L (27.0-32.0) pg MCHC 28.3 L (32.0-37.0) d/dL RDW 18.9 H (11.5-14.5) % MPV 9.3 L (9.5-12.2) FL Eosinophils # 0.45 H (0.04-0.35) X 10*3/uL Carbon Dioxide (21.6-31.8) mmol/L Glucose (70-110) mg/dL POC Glucose (mg/dL) 137 H 184 H (70-110) mg/dL Calcium (8.7-10.3) mg/dL 01/07/23 01/07/23 Range/Units 05:37 06:26 RBC (4.10-5.20) X 10*6/uL Hgb (12.0-15.0) d/dL Hct (37.2-46.3) % MCH (27.0-32.0) pg MCHC (32.0-37.0) d/dL RDW (11.5-14.5) % MPV (9.5-12.2) FL Eosinophils # (0.04-0.35) X 10*3/uL Carbon Dioxide 35.3 H (21.6-31.8) mmol/L Glucose 154 H (70-110) mg/dL POC Glucose (mg/dL) 207 H (70-110) mg/dL Calcium 8.3 L (8.7-10.3) mg/dL Assessment and Plan Plan: Witnessed syncope, possible cardiac arrest, status post CPR for 5 minutes with return of spontaneous circulation on 12/27/2022, currently awake and alert without any significant neurological deficits Acute hypoxic and hypercapnic respiratory failure secondary to above, improved currently on 3 L nasal cannula and the patient is currently off the BiPAP Suspect aspiration pneumonia and completed Zosyn, pro-calcitonin 0.15, the patient has completed antibiotic course chronic systolic congestive heart failure ejection fraction of 45 %, with superimposed pneumonia Chronic atrial fibrillation, anticoagulated with Xarelto Anemia with a drop in hemoglobin to 6.7, received 1 unit of packed red blood cells, follow-up hemoglobin 9.1. Plan for EGD/colonoscopy 01/06/2023, mother the patient was receiving anticoagulation with Xarelto on outpatient basis Chronic urinary tract infection Morbid obesity, BMI of 47.2 History of underlying coronary artery disease History of CVA/TIA Benign essential hypertension Dyslipidemia Degenerative joint disease Hypothyroidism Fibromyalgia History of DVT and pulmonary embolism Chronic kidney disease stage III Diabetic neuropathy and nephropathy History of hypertension Gram-positive bacteremia, final report is pending Plan: EGD showed antral gastritis, colonoscopy was a poor prep, hemoglobin stable I believe the patient should be able to go back on anticoagulants, we'll be awaiting final recommendations from general surgeon underwent endoscopies Patient has been weaned down to room air oxygen Overall pulmonary status is stable and the patient is currently resting comfortably in bed Complete the course of IV Zosyn We will continue to follow
--- NOTE | 2023-01-07 14:24 | P.PN ---
Subjective Progress Note Date: 01/07/23 CHIEF COMPLAINT: Syncope HISTORY OF PRESENT ILLNESS: Patient status post EGD and colonoscopy with biops ies. Results showed antral gastritis and normal colonoscopy but poor bowel prep. Patient denies any abdominal pain. Denies any nausea or vomiting. Tolerating regular diet. Hemoglobin down from 8.2-7.7 PHYSICAL EXAM: VITAL SIGNS: Reviewed. GENERAL: Well-developed in no acute distress. ABDOMEN: Soft. Nondistended. Nontender. NEUROLOGIC: Alert and oriented. Cranial nerves II through XII grossly intact. ASSESSMENT: 1. Anemia status post EGD and colonoscopy PLAN: -Would recommend repeat colonoscopy only if patient has active bleeding -Continue to hold anticoagulation -Continue to monitor hemoglobin -Continue Protonix -Continue regular diet Physician Supervisor Soakers note has been reviewed by physician. Signing provider agrees with the documented findings, assessment, and plan of care. Objective - Vital Signs Vital signs: Vital Signs Temp 98.7 F 01/07/23 06:59 Pulse 76 01/07/23 09:03 Resp 18 01/07/23 06:59 BP 105/66 01/07/23 06:59 Pulse Ox 98 01/07/23 08:53 FiO2 40 12/31/22 07:35 Intake & Output 01/06/23 01/07/23 01/07/23 18:59 06:59 18:59 Intake Total 400 Output Total 800 400 Balance -400 -400 Intake: IV 400 Output: Urine 800 400 Other: Voiding Method Toilet Diaper Diaper External Catheter External Catheter # Bowel Movements 1 - Labs CBC & Chem 7: 01/07/23 05:37 01/07/23 05:37 Labs: Abnormal Lab Results - Last 24 Hours (Table) 01/06/23 01/07/23 01/07/23 Range/Units 21:15 05:37 05:37 RBC 3.13 L (4.10-5.20) X 10*6/uL Hgb 7.7 L (12.0-15.0) d/dL Hct 27.2 L (37.2-46.3) % MCH 24.6 L (27.0-32.0) pg MCHC 28.3 L (32.0-37.0) d/dL RDW 18.9 H (11.5-14.5) % MPV 9.3 L (9.5-12.2) FL Eosinophils # 0.45 H (0.04-0.35) X 10*3/uL Carbon Dioxide 35.3 H (21.6-31.8) mmol/L Glucose 154 H (70-110) mg/dL POC Glucose (mg/dL) 184 H (70-110) mg/dL Calcium 8.3 L (8.7-10.3) mg/dL 01/07/23 01/07/23 Range/Units 06:26 11:37 RBC (4.10-5.20) X 10*6/uL Hgb (12.0-15.0) d/dL Hct (37.2-46.3) % MCH (27.0-32.0) pg MCHC (32.0-37.0) d/dL RDW (11.5-14.5) % MPV (9.5-12.2) FL Eosinophils # (0.04-0.35) X 10*3/uL Carbon Dioxide (21.6-31.8) mmol/L Glucose (70-110) mg/dL POC Glucose (mg/dL) 207 H 176 H (70-110) mg/dL Calcium (8.7-10.3) mg/dL
[2023-01-07 16:49] LABS: Glucose,Whole Blood 148 mg/dL (70-110)
[2023-01-07 20:53] LABS: Glucose,Whole Blood 174 mg/dL (70-110)
[2023-01-07] MEDS: MELATONIN 5 MG TABLET PO SCH (22:00)
[2023-01-07] MEDS: ATORVASTATIN 80 MG TAB PO SCH (22:01)
[2023-01-07] MEDS: MONTELUKAST 10 MG TAB PO SCH (22:01)
--- NOTE | 2023-01-08 06:22 | P.PN ---
Subjective Progress Note Date: 01/07/23 67-year-old lady with past medical history significant for atrial fibrillation, coronary artery disease, congestive heart failure, diabetes mellitus, hyperlipidemia, history of pulmonary embolism, history of CVA presented to the emergency department sent in for a witnessed episode of syncope. Patient was unresponsive per nursing staff could not feel a pulse in the started CPR. 3 rounds of CPR was done. Patient was not given shocks or medications. Patient just had chest compressions done 1 EMS arrived patient was alert and responsive. However could not remember the incident workup initiated in ER showed CT head that was negative, CT abdomen and pelvis was negative. Chest x-ray was done which showed multifocal opacities. CBC obtained showed elevated white cell count with left shift. Basic metabolic panel showed sodium of 136 potassium 4.6, potassium 34 BUN 19 creatinine 0.95. Troponin obtained negative. 12/29: Patient seen and evaluated at bedside. Patient remains in ICU for bypass of the night. [place] BiPAP through the night continue patient on oxygen supplementation. Chest x-ray does show focal infiltrates. Blood cultures show coagulase-negative staph likely contamination 01/04/2023 Patient is seen and evaluated in room at bedside. She is currently resting in bed. Awake and alert in no acute distress. Continue good O2 saturations in the 90s on 3 L/m per nasal cannula. Afebrile. Hemodynamically stable. She is status post 1 unit of packed red blood cells this admission. Current hemoglobin 9.1. Platelets 177. Sodium 134. Potassium 4.2. Bicarb 33. BUN 18. Creatinine 0.81. Glucose 162. Xarelto and aspirin on hold. Plan is for EGD/colonoscopy on 01/06/2023. 01/05/2023 Patient seen and evaluated in follow-up on the regular medical floor. She is awake and alert in no acute distress. Sitting up in bed. Denies any worsening shortness of breath, cough or congestion. No active GI bleed Vital signs are reviewed and stable with O2 saturations in the mid to upper 90s on 3 L/m per nasal cannula. She remains afebrile. -- White count 7.9. Hemoglobin 9.1. Platelets 185. Sodium 136. Potassium 4. 5. Bicarb 36. BUN 17. Creatinine 0.83. Glucose 137 -- Plan is for EGD/colonoscopy tomorrow. Aspirin and Xarelto remains on hold 01/06/2023 Patient is seen and evaluated in follow-up this morning currently nothing by mouth underwent bowel prep with plans for EGD/colonoscopy today. Anticoagula tion along with aspirin currently on hold. Hemoglobin is above 8 today with no active bleeding noted. Patient is afebrile with no reports of chest pain or shortness of breath. Patient continues on 3 L via nasal cannula and will continue. Wean FiO2 as tolerated. Patient to be evaluated by physical therapy with plans on returning to [facility]. Case management following working on submitting insurance authorization. Will resume diet and anticoagulation once cleared by surgery. 01/07/2023 Patient is seen in follow-up today status post EGD/colonoscopy. Anticoagulation is on hold hemoglobin today is 7.7 with no active bleeding noted. Will discuss further with general surgery about when to resume. Patient has no further bleeding noted per nursing staff and has been advanced to regular diet. Continue with Accu-Cheks before meals and at bedtime and recommend consistent carb diet. Patient is chronically on 3 L of oxygen with pulmonary following. Patient reports she has only been wearing oxygen since being at [facility] and was not requiring oxygen prior to that. Plan is to return to [facility] once discharged. Insurance authorization has been submitted. Encouraged increased activity as tolerated and recommended PT/OT therapy daily. Patient is significantly weak although is up working with physical therapy and feel would benefit from continued PT/OT therapy at [facility]. He Review of systems: Constitutional: No reports of fatigue, fever, or chills Cardiovascular: No reports of chest pain or palpitations Respiratory: No reports of shortness of breath or cough GI: No reports of nausea, vomiting, or diarrhea : No reports of dysuria or retention Neurovascular: Reports of generalized weakness All medications have been reviewed Physical exam: GENERAL: The patient is alert and oriented x3, not in any acute distress. Well developed, well nourished. Morbidly obese HEENT: Pupils are round and equally reacting to light. EOMI. No scleral icterus. No conjunctival pallor. Normocephalic, atraumatic. No pharyngeal erythema. No thyromegaly. CARDIOVASCULAR: S1 and S2 present. No murmurs, rubs, or gallops. PULMONARY: Chest is clear to auscultation, no wheezing , no crackles. ABDOMEN: Soft, nontender, nondistended, normoactive bowel sounds. No palpable organomegaly. MUSCULOSKELETAL: No joint swelling or deformity. EXTREMITIES: No cyanosis, clubbing, or pedal edema. NEUROLOGICAL: Gross neurological examination did not reveal any focal deficits. Diffusely weak SKIN: No rashes. no petechiae. Assessment: Syncope with possible cardiac arrest Acute hypoxic respiratory failure, improving Acute gastritis noted on EGD with no active bleeding noted on attempted colonos copy. Poor bowel prep per surgery Aspiration pneumonia Acute on chronic systolic CHF, EF 35-40%. Chronic atrial fibrillation on xarelto Morbid obesity with a BMI of 47.2 GI prophylaxis DVT prophylaxis Full code Plan: Patient is status post EGD/colonoscopy with general surgery today which showed a poor bowel prep for colonoscopy otherwise no active bleeding noted an EGD showing mild gastritis. diet has been advanced and will continue on consistent carb and monitoring Accu-Cheks before meals and at bedtime Discussed with general surgery about resuming anticoagulation recommend continue holding. Hemoglobin is 7.7 and will follow-up on labs in the a.m. Transfuse of 7 or less Continue with PT/OT therapy daily encouraged increased activity as tolerated. Case management following to submit for insurance authorization for return to [facility] Possible discharge planning in the next 24-48 hours The impression and plan of care has been dictated by Gloria Cheung, Nurse Practitioner as directed. Dr. Paul MD I have performed a history and examination and MDM of this patient, discussed the same with the dictator, and agree with the dictator's assessment and plan as written ,documented as a scribe. Based on total visit time, I have performed more than 50% of the visit. Objective - Vital Signs Vital signs: Vital Signs Temp 98.7 F 01/07/23 06:59 Pulse 76 01/07/23 09:03 Resp 18 01/07/23 06:59 BP 105/66 01/07/23 06:59 Pulse Ox 98 01/07/23 08:53 FiO2 40 12/31/22 07:35 Intake & Output 01/06/23 01/07/23 01/07/23 18:59 06:59 18:59 Intake Total 400 Output Total 800 400 Balance -400 -400 Intake: IV 400 Output: Urine 800 400 Other: Voiding Method Toilet Diaper External Catheter # Bowel Movements 1 - Labs CBC & Chem 7: 01/07/23 05:37 01/07/23 05:37 Labs: Abnormal Lab Results - Last 24 Hours (Table) 01/06/23 01/06/23 01/06/23 Range/Units 09:11 11:12 21:15 RBC 3.29 L (3.80-5.40) m/uL Hgb 8.2 L (11.4-16.0) gm/dL Hct 27.6 L (34.0-46.0) % MCH (27.0-32.0) pg MCHC 29.9 L (31.0-37.0) g/dL RDW 18.7 H (11.5-15.5) % MPV (9.5-12.2) FL Eosinophils # (0.04-0.35) X 10*3/uL Carbon Dioxide (21.6-31.8) mmol/L Glucose (70-110) mg/dL POC Glucose (mg/dL) 137 H 184 H (70-110) mg/dL Calcium (8.7-10.3) mg/dL 01/07/23 01/07/23 01/07/23 Range/Units 05:37 05:37 06:26 RBC 3.13 L (3.80-5.40) m/uL Hgb 7.7 L (11.4-16.0) gm/dL Hct 27.2 L (34.0-46.0) % MCH 24.6 L (27.0-32.0) pg MCHC 28.3 L (31.0-37.0) g/dL RDW 18.9 H (11.5-15.5) % MPV 9.3 L (9.5-12.2) FL Eosinophils # 0.45 H (0.04-0.35) X 10*3/uL Carbon Dioxide 35.3 H (21.6-31.8) mmol/L Glucose 154 H (70-110) mg/dL POC Glucose (mg/dL) 207 H (70-110) mg/dL Calcium 8.3 L (8.7-10.3) mg/dL
[2023-01-08 06:42] LABS: Glucose,Whole Blood 144 mg/dL (70-110)
[2023-01-08] MEDS: INSULIN ASPART (NovoLOG) 100 UNIT/ML VIAL SQ SCH ×3 (06:43→17:31)
[2023-01-08] MEDS: LEVOTHYROXINE 125 MCG TAB PO SCH (06:46)
[2023-01-08] MEDS: ALBUTEROL NEBULIZED 2.5 MG/3 ML INHALATION PRN (07:54)
[2023-01-08 08:00] VITALS: RESP 18
[2023-01-08] MEDS: allopurinoL 100 MG TAB PO SCH (08:28)
[2023-01-08] MEDS: ISOSORBIDE MONONITRATE ER 30 MG TAB.ER.24H PO SCH (08:29)
[2023-01-08] MEDS: FUROSEMIDE 40 MG TAB PO SCH (08:29)
[2023-01-08] MEDS: DULoxetine HCL 30 MG CAPSULE.DR PO SCH (08:29)
[2023-01-08] MEDS: METOPROLOL SUCCINATE (ER) 50 MG TAB.ER.24H PO SCH (08:29)
[2023-01-08] MEDS: PANTOPRAZOLE 40 MG/10 ML VIAL IVP SCH (08:29)
[2023-01-08] MEDS: CYANOCOBALAMIN 500 MCG TAB PO SCH (08:29)
[2023-01-08] MEDS: busPIRone HCl 10 MG TAB PO SCH (08:29)
[2023-01-08] MEDS: ACETAMINOPHEN TAB 325 MG TAB PO PRN (08:39)
[2023-01-08 11:23] LABS: Glucose,Whole Blood 186 mg/dL (70-110)
[2023-01-08 13:41] LABS: BUN/Creat Ratio 15.22 Ratio (12.00-20.00); Blood Urea Nitrogen 13.7 mg/dL (9.0-27.0); Calcium 8.6 mg/dL (8.7-10.3); Carbon Dioxide 34.3 mmol/L (21.6-31.8); Chloride 99 mmol/L (96-109); Glucose 128 mg/dL (70-110); Magnesium 1.8 mg/dL (1.5-2.4); Potassium 3.6 mmol/L (3.5-5.5); Sodium 141 mmol/L (135-145)
[2023-01-08 13:49] LABS: HCT 28.7 % (37.2-46.3); MCH 24.3 pg (27.0-32.0); MCHC 27.9 d/dL (32.0-37.0); MCV 87.2 FL (80.0-97.0); Mean Platelet Volume 9.4 FL (9.5-12.2); NRBC Per 100 WBC 0 X 10*3/uL (0.00-0.01); Platelet Count 154 X 10*3/uL (140-440); RBC 3.29 X 10*6/uL (4.10-5.20); RDW 18.8 % (11.5-14.5); WBC 7.08 X 10*3/uL (4.50-10.00)
--- NOTE | 2023-01-08 13:53 | P.PN ---
Subjective Progress Note Date: 01/08/23 CHIEF COMPLAINT: Syncope HISTORY OF PRESENT ILLNESS: Patient status post EGD and colonoscopy with biops ies. Results showed antral gastritis and normal colonoscopy but poor bowel prep. Patient denies any abdominal pain. Denies any nausea or vomiting. Tolerating regular diet. Hemoglobin is up from 7.7 to 8.0 PHYSICAL EXAM: VITAL SIGNS: Reviewed. GENERAL: Well-developed in no acute distress. ABDOMEN: Soft. Nondistended. Nontender. NEUROLOGIC: Alert and oriented. Cranial nerves II through XII grossly intact. ASSESSMENT: 1. Anemia status post EGD and colonoscopy PLAN: -Would recommend repeat colonoscopy only if patient has active bleeding -Patient can be discharged from surgical standpoint when medically stable -Okay to resume anticoagulation -Continue Protonix -Continue regular diet Physician Taxonomy Teacher note has been reviewed by physician. Signing provider agrees with the documented findings, assessment, and plan of care. Objective - Vital Signs Vital signs: Vital Signs Temp 97.8 F 01/08/23 07:03 Pulse 76 01/08/23 08:05 Resp 18 01/08/23 07:03 BP 110/69 01/08/23 07:03 Pulse Ox 95 01/08/23 07:54 FiO2 40 12/31/22 07:35 Intake & Output 01/07/23 01/08/23 01/08/23 18:59 06:59 18:59 Output Total 1300 400 Balance -1300 -400 Output: Urine 1300 400 Other: Voiding Method Diaper Toilet Diaper External Catheter Diaper External Catheter External Catheter - Labs CBC & Chem 7: 01/08/23 06:20 01/08/23 06:20 Labs: Abnormal Lab Results - Last 24 Hours (Table) 01/07/23 01/07/23 01/08/23 Range/Units 16:48 20:51 06:20 RBC 3.29 L (4.10-5.20) X 10*6/uL Hgb 8.0 L (12.0-15.0) d/dL Hct 28.7 L (37.2-46.3) % MCH 24.3 L (27.0-32.0) pg MCHC 27.9 L (32.0-37.0) d/dL RDW 18.8 H (11.5-14.5) % MPV 9.4 L (9.5-12.2) FL Carbon Dioxide (21.6-31.8) mmol/L Glucose (70-110) mg/dL POC Glucose (mg/dL) 148 H 174 H (70-110) mg/dL Calcium (8.7-10.3) mg/dL 01/08/23 01/08/23 01/08/23 Range/Units 06:20 06:40 11:21 RBC (4.10-5.20) X 10*6/uL Hgb (12.0-15.0) d/dL Hct (37.2-46.3) % MCH (27.0-32.0) pg MCHC (32.0-37.0) d/dL RDW (11.5-14.5) % MPV (9.5-12.2) FL Carbon Dioxide 34.3 H (21.6-31.8) mmol/L Glucose 128 H (70-110) mg/dL POC Glucose (mg/dL) 144 H 186 H (70-110) mg/dL Calcium 8.6 L (8.7-10.3) mg/dL
--- NOTE | 2023-01-08 14:47 | P.DS ---
Providers Date of admission: 12/27/22 23:46 Expected date of discharge: 01/08/23 Attending physician: Yoselin Caballero Consults: 12/27/22 23:46 Consult Physician Stat Consulting Provider: Anahy Guevara Consult Reason/Comments: pneumonia, hypoxic respiratory failure, cardiac arrest Do you want consulting provider notified?: Already Contacted 01/02/23 11:55 Consult Physician Urgent Consulting Provider: Prakash Early Consult Reason/Comments: dropping hemoglobin Do you want consulting provider notified?: Yes Primary care physician: Lor Deluca Hospital Course: Final diagnosis Syncope with possible cardiac arrest Acute hypoxic respiratory failure, secondary to aspiration pneumonia as well as CHF exacerbation Acute gastritis noted on EGD with no active bleeding noted on attempted colonoscopy. Poor bowel prep per surgery Aspiration pneumonia Acute on chronic systolic CHF, EF 35-40%. Chronic atrial fibrillation on xarelto Morbid obesity with a BMI of 47.2 GI prophylaxis DVT prophylaxis Full code Discharge disposition Patient is being discharged in a stable condition with guarded prognosis to [facility]. Patient will follow-up with Dr. Deluca in the outpatient setting upon discharge. Total time taken is greater than 35 minutes. Hospital course This is a 67-year-old female who was recently admitted with brief episode of cardiac arrest while at the [facility] and rounds of CPR was done and was found to be responsive. Patient brought to the hospital for further evaluation with concerns of possible aspiration pneumonia. Patient did initially require BiPAP in the ICU and is currently now maintained on 2-3 L of oxygen via nasal cannula. Patient was maintained on IV antibiotics with multiple medical consultations following including pulmonary grinder set up operator universal and has completed a course of Zosyn. Patient continues on 3 L and would recommend weaning FiO2 as tolerated and continued incentive spirometer use. Patient also developed some drop in hemoglobin and underwent EGD colonoscopy showing gastritis along with no active bleeding noted and a poor bowel prep. Of note surgery recommends if patient has any further bleeding to complete a full bowel prep and follow-up colonoscopy outpatient. Patient okay to resume Xarelto and will continue on 15 mg daily. Recommend outpatient follow-up with primary care provider as well as general surgery and cardiology. Patient has been cleared by consultations. Please refer to consultation notes for further HPI. Currently no reports of chest pain, shortness of breath, or palpitations. Patient is afebrile. No reports of nausea or vomiting and patient is tolerating diet. Patient will be going to [facility] on the [facility] today. High risk for readmission given patient's significant comorbidities. Physical exam: Gen: This is a 67-year-old female who is awake, alert and oriented 3, well- developed, well-nourished, morbidly obese HEENT: Head is atraumatic, normocephalic. Pupils equal, round. Sclerae is anicteric. NECK: Supple. No JVD. No lymphadenopathy. No thyromegaly. LUNGS: Clear to auscultation. No wheezes or rhonchi. No intercostal retractions. HEART: Regular rate and rhythm. No murmur. ABDOMEN: Soft. Obese Bowel sounds are present. No masses. No tenderness. EXTREMITIES: No pedal edema. No calf tenderness. Bilateral lower extremity chronic swelling noted NEUROLOGICAL: Patient is awake, alert and oriented x3. Cranial nerves 2 through 12 are grossly intact. Diffusely weak Please refer to medication reconciliation sheet for a list of medications. The impression and plan of care has been dictated by Gloria Cheung, Nurse Practitioner as directed. Dr. Paul MD I have performed a history and examination and MDM of this patient, discussed the same with the dictator, and agree with the dictator's assessment and plan as written ,documented as a scribe. Based on total visit time, I have performed more than 50% of the visit. Patient Condition at Discharge: Fair Plan - Discharge Summary New Discharge Prescriptions: New Furosemide [Lasix] 40 mg PO DAILY tab polyethylene glycoL 3350 [Miralax] 17 gm PO DAILY PRN packet PRN Reason: Constipation Rivaroxaban [Xarelto] 15 mg PO W/SUPPER tab Sennosides [Senokot] 8.6 mg PO DAILY PRN tab PRN Reason: Constipation Albuterol Nebulized [Ventolin Nebulized] 2.5 mg INHALATION RT-Q2H PRN ml PRN Reason: Shortness Of Breath Or Wheezing Continue Montelukast [Singulair] 10 mg PO HS@2100 Acetaminophen Tab [Tylenol] 1,000 mg PO Q6H PRN PRN Reason: Pain Levothyroxine Sodium [Synthroid] 125 mcg PO DAILY@0600 Isosorbide Mononitrate ER [Imdur] 30 mg PO DAILY@0900 Omeprazole [PriLOSEC] 20 mg PO DAILY@0600 Docusate [Colace] 100 mg PO BID PRN cap PRN Reason: Constipation INSULIN ASPART (NovoLOG) [NovoLOG (formulary)] See Protocol SQ ACHS@08,,, Metoprolol Succinate (ER) [Toprol XL] 50 mg PO DAILY@0900 Loratadine [Claritin] 10 mg PO DAILY PRN PRN Reason: Allergy Symptoms methocarbamoL [Robaxin] 500 mg PO TID PRN PRN Reason: Muscle Spasm Nitroglycerin Sl Tabs [Nitrostat] 0.4 mg SL Q5M PRN PRN Reason: Chest Pain allopurinoL 100 mg PO DAILY@0900 busPIRone HCl [Buspar] 10 mg PO BID@0900,2100 DULoxetine HCL [Cymbalta] 30 mg PO BID@0900,2100 Melatonin 5 mg PO HS@2100 Sennosides/Docusate Sodium [Senna Plus 8.6-50 mg Softgel] 2 tab PO HS@2100 Aspirin 81 mg PO DAILY@0900 Atorvastatin [Lipitor] 80 mg PO HS@2100 Cyanocobalamin [Vitamin B-12] 1,000 mcg PO DAILY@0900 Discontinued Lactulose 20 gm PO DAILY@0900 Cefuroxime [Ceftin] 250 mg PO BID@0900,2099 Rivaroxaban [Xarelto] 10 mg PO DAILY@0900 Discharge Medication List Montelukast [Singulair] 10 mg PO HS@2100 08/28/17 [History] Acetaminophen Tab [Tylenol] 1,000 mg PO Q6H PRN 05/22/21 [History] Levothyroxine Sodium [Synthroid] 125 mcg PO DAILY@0600 05/22/21 [History] Loratadine [Claritin] 10 mg PO DAILY PRN 05/22/21 [History] methocarbamoL [Robaxin] 500 mg PO TID PRN 05/22/21 [History] Isosorbide Mononitrate ER [Imdur] 30 mg PO DAILY@0900 12/04/21 [History] Nitroglycerin Sl Tabs [Nitrostat] 0.4 mg SL Q5M PRN 12/04/21 [History] DULoxetine HCL [Cymbalta] 30 mg PO BID@0900,209909/27/22 [History] Omeprazole [PriLOSEC] 20 mg PO DAILY@59909/27/22 [History] allopurinoL 100 mg PO DAILY@89909/27/22 [History] busPIRone HCl [Buspar] 10 mg PO BID@899,209909/27/22 [History] Docusate [Colace] 100 mg PO BID PRN cap 10/01/22 [Rx] Melatonin 5 mg PO HS@209911/19/22 [History] Sennosides/Docusate Sodium [Senna Plus 8.6-50 mg Softgel] 2 tab PO HS@209911/19/22 [History] Aspirin 81 mg PO DAILY@89912/27/22 [History] Atorvastatin [Lipitor] 80 mg PO HS@209912/27/22 [History] Cyanocobalamin [Vitamin B-12] 1,000 mcg PO DAILY@89912/27/22 [History] INSULIN ASPART (NovoLOG) [NovoLOG (formulary)] See Protocol SQ ACHS@,12,,12/27/22 [History] Metoprolol Succinate (ER) [Toprol XL] 50 mg PO DAILY@89912/27/22 [History] Albuterol Nebulized [Ventolin Nebulized] 2.5 mg INHALATION RT-Q2H PRN ml 01/08/23 [Rx] Furosemide [Lasix] 40 mg PO DAILY tab 01/08/23 [Rx] Rivaroxaban [Xarelto] 15 mg PO W/SUPPER tab 01/08/23 [Rx] Sennosides [Senokot] 8.6 mg PO DAILY PRN tab 01/08/23 [Rx] polyethylene glycoL 3350 [Miralax] 17 gm PO DAILY PRN packet 01/08/23 [Rx] Follow up Appointment(s)/Referral(s): Pradeep Taylor MD [STAFF PHYSICIAN] - 01/13/23 11:45 am Lor Deluca MD [Primary Care Provider] - 1-2 days [facility] on [employer], [NON-STAFF] - As Needed Activity/Diet/Wound Care/Special Instructions: Patient is going to [facility] on [employer] Activity as tolerated Continue current diet diabetic diet NovoLog sliding scale 0-150 equals 0 units 151-200 equals 2 units 201-250 equals 4 units 251-300 equals 6 units 301-350 equals 8 units 351-400 equals 10 units Please notify provider if blood sugar is 400 or above Continue incentive spirometer use at least 10 times every hour while awake Follow-up with general surgery outpatient Okay to resume Xarelto 15 mg tonight Follow-up primary care provider on discharge Discharge Disposition: TRANSFER TO SNF/ECF
[2023-01-08 16:15] VITALS: BP 111/68; PULSE 68; TEMP 98.5
--- NOTE | 2023-01-08 16:47 | P.PN ---
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 Patient had a witnessed syncopal episode while at the correction, patient went unresponsive as the nursing staff were transferring the patient back to her bed for bedtime. Again the patient underwent 3 rounds of CPR and obtained return of spontaneous circulation. No shocks were given. No medications were given. Patient had basically on the 3 rounds of CPR. When EMS arrived, the patient was responsive, but she couldn't remember the incident, and she appeared to be alert and oriented 3 at the time. Patient was noted to have difficulty breathing, but she had no chest pain, no abdominal pain, no nausea, no vomiting. Patient was brought into the ER, and again did not require intubation or mechanical ventilation, patient was placed on BiPAP initially. ABG showed a pO2 of 100 pCO2 67 pH of 7.28 she was later transitioned to 4 L nasal cannula. Workup also included CT of the brain which came back negative CT abdomen and pelvis negative chest x-ray showed evidence of bilateral opacities, it is difficult to tell whether the findings are findings of aspiration pneumonia or could be related to ongoing chronic congestive heart failure. BNP level was not elevated. Pro-calcitonin level is pending. Patient does seem to have an infected urine with pyuria and bacteriuria noted in the urinalysis. Basic metabolic profile was noted to be normal lactic acid this morning is 1.2, it was 2.9 on admission. WBC count 15.5 hemoglobin 8.4. Considering the findings on chest x-ray, patient was kept on vancomycin and Zosyn empirically. Patient is also on Lasix 40 mg IV push every 12 hours, and she is chronically on Xarelto which will remain the same. Patient does have previous history of DVT and pulmonary embolism as well as chronic atrial fibrillation. Reevaluated today on 12/29/2022, patient remains in the ICU. Patient is doing better today, she is on 3 L nasal cannula she was on BiPAP last night with IPAP of 14 and EPAP of 6 FiO2 40%. She did improve with Lasix 40 mg IV push every 12 hours she is also receiving antibiotics empirically, blood cultures positive for gram-positive cocci. Patient is -2.3 L over the last 24 hours. Again her chest x-ray is showing improvement and clinically the patient is feeling better and she is down to 3 L nasal cannula. Blood cultures are preliminary positive for gram-positive cocci. Final report is pending WBC count is 8.3 hemoglobin 7.3 Electrolytesenc normal bicarb is 35 BUN is 19 and creatinine 1.11. Chest x-ray is showing definite improvement in her multifocal infiltrates/interstitial edema. The patient is seen today 12/30/2022 in follow-up in the intensive care unit. She is currently sitting up in bed. Awake and alert in no acute distress. She is maintaining O2 saturations in the 90s on 2 L/m per nasal cannula. She did utilize BiPAP 14/6 and 40% FiO2 through the night. She has normal saline at KVO. No worsening shortness of breath, cough or congestion. No arrhythmias. White count 8.4. Hemoglobin 7.4. Platelets 150. Sodium 133. Potassium 3.6. Bicarb 34. BUN 20. Creatinine 1.08. Glucose 130. Chest x-ray shows ca rdiomegaly and mild pulmonary vascular congestion. Urine culture reveals no growth. Blood cultures with positive cocci and clusters. Currently on vancomycin and Zosyn. Remains on IV diuretics. Currently in a -2.4 L balance. Anticoagulated with Xarelto. The patient is seen today 12/31/2022 in follow-up in the intensive care unit. She is sitting up in bed. Awake and alert in no acute distress. Maintaining good O2 saturations in the 90s on 3 L/m per nasal cannula. She did utilize the BiPAP last night 14/6 at 40% FiO2. Urine culture revealed no growth. Blood cultures are pending. Creatinine 1.01. GFR 57. Glucose 184. Procalcitonin was 0.15. She is currently on vancomycin and Zosyn. Anticoagulated with Xarelto. Remains on IV diuretics. Currently in a -1.6 L balance. The patient is seen today 01/01/2023 in follow-up on the regular medical floor. She is currently resting comfortably in bed. Awake and alert in no acute distress. Maintaining O2 saturations in the 90s on 1 L/m per nasal cannula. She did utilize BiPAP last night 18/09 at 40% FiO2. No IV fluids. Urine culture reveal no growth. Creatinine 1.19. GFR 47. Random vancomycin 13.6. She remains on vancomycin and Zosyn. Anticoagulated with Xarelto. Remains on IV diuretics. Currently in a -2.4 L balance. The patient is seen today 01/02/2023 in follow-up on the regular medical floor. She is resting comfortably in bed. Awake and alert in no acute distress. Maintaining O2 saturations in the 90s on 3 L/m per nasal cannula. She has normal saline at [facility]. Blood cultures are positive for staph epidermidis. Urine culture revealed no growth. White count 7.9. Hemoglobin 6.7. Platelets 163. Sodium 140. Potassium 3.8. Bicarb 38. BUN 19. Creatinine 1.1. Glucose 133. Troponins negative 2. Currently in a -1.3 L balance. 1 unit of packed red blood cells has been ordered. The patient is seen today 01/03/2023 in follow-up on the regular medical floor. Currently sitting up in bed. Awake and alert in no acute distress. Continues to maintain good O2 saturations in the mid 90s on 3 L/m per nasal cannula. She's afebrile. Hemodynamically stable. Sodium 136. Potassium 4.5. Bicarb 35. BUN 22. Creatinine 0.92. Glucose 135. Yesterday's hemoglobin did drop to 6.7. She received packed of red blood cells. Follow-up CBC pending. Plan is for EGD/colonoscopy on 01/06/2023. Xarelto and aspirin on hold. The patient is seen today 01/04/2023 in follow-up on the regular medical floor. She is currently resting in bed. Awake and alert in no acute distress. Continue good O2 saturations in the 90s on 3 L/m per nasal cannula. Afebrile. Hemodynamically stable. She is status post 1 unit of packed red blood cells this admission. Current hemoglobin 9.1. Platelets 177. Sodium 134. Potassium 4.2. Bicarb 33. BUN 18. Creatinine 0.81. Glucose 162. Xarelto and aspirin on hold. Plan is for EGD/colonoscopy on 01/06/2023. Patient is seen today 01/05/2023 in follow-up on the regular medical floor. She is awake and alert in no acute distress. Sitting up in bed. Denies any worsening shortness of breath, cough or congestion. Continue good O2 saturations in the mid to upper 90s on 3 L/m per nasal cannula. She remains afebrile. Hemodynamically stable. No active GI bleeding noted. White count 7.9. Hemoglobin 9.1. Platelets 185. Sodium 136. Potassium 4.5. Bicarb 36. BUN 17. Creatinine 0.83. Glucose 137. She remains in a -2.6 L balance. Plan is for EGD/colonoscopy tomorrow. On today's evaluation of 2022, the patient is resting comfortably in bed. No new complaints. The patient is currently on 3 L of oxygen by nasal cannula with a pulse ox of 98%. The patient also has a WBC done of 6.8 with a hemoglobin of 8.2. The plan is to undergo an EGD and colonoscopy today. For that reason, the patient has been kept nothing by mouth. She is morbidly obese with a BMI of 47.2. She is known to have multiple medical problems and comorbidities. The patient has had a previous CVA in addition to coronary artery disease with previous coronary intervention and stenting, chronic systolic heart failure and the patient has a left ventricular ejection fraction of 45%, moderate degree of pulmonary hypertension and a small pericardial effusion,, previous history of DVT and pulmonary embolism and hypothyroidism and diabetes mellitus type 2 with diabetic neuropathy. The patient also suffers from chronic atrial fibrillation. The patient was taken anticoagulation without on outpatient basis. On 01/07/2023, the patient is stable. The patient underwent a EGD yesterday and showed antral gastritis. Colonoscopy was a poor prep. She is resting com fortably on a recliner. She has no specific complaints. She remains on room air oxygen with a pulse ox of 96%. The patient had a WBC count of 8.8 with a hemoglobin of 7.1 with a hemoglobin has remained stable since yesterday. BUN is at 3.5 with a creatinine of 0.6 and a sodium level is at 139 with a potassium level of 3.5. Electrolytes are all within normal limits. LFTs are also within normal limits. The blood cultures have been negative. The patient is known to have CAD, chronic systolic heart failure with an ejection fraction of 45%. The patient remains off anticoagulants, awaiting a clearance from surgery regarding safety of anticoagulations use. 01/08/2023, the patient is stable. The hemoglobin is stable at 8.0. No evidence of any bleeding. Electrodes are all within normal limits. The patient is currently on Lasix 40 mg by mouth daily. The patient was also started on a nticoagulation with Xarelto. Objective - Vital Signs Vital signs: Vital Signs Temp 98.5 F 01/08/23 14:00 Pulse 68 01/08/23 14:00 Resp 18 01/08/23 14:00 BP 111/68 01/08/23 14:00 Pulse Ox 98 01/08/23 14:00 FiO2 40 12/31/22 07:35 Intake & Output 01/07/23 01/08/23 01/08/23 18:59 06:59 18:59 Output Total 1300 400 Balance -1300 -400 Output: Urine 1300 400 Other: Voiding Method Diaper Toilet Diaper External Catheter Diaper External Catheter External Catheter - Exam GENERAL EXAM: Alert, obese 67-year-old female, on 3 L nasal cannula, in no apparent distress. HEAD: Normocephalic. EYES: Normal reaction of pupils, equal size. NOSE: Clear with pink turbinates. THROAT: No erythema or exudates. NECK: No masses, no JVD. CHEST: No chest wall deformity. LUNGS: Equal air entry with crackles in the posterior bases. CVS: S1 and S2 normal with no audible murmur, regular rhythm. ABDOMEN: No hepatosplenomegaly, normal bowel sounds, no guarding or rigidity. SPINE: No scoliosis or deformity SKIN: No rashes CENTRAL NERVOUS SYSTEM: No focal deficits, tone is normal in all 4 extremities. EXTREMITIES: There is 1-2+ peripheral edema. No clubbing, no cyanosis. Peripheral pulses are intact. - Labs CBC & Chem 7: 01/08/23 06:20 01/08/23 06:20 Labs: Abnormal Lab Results - Last 24 Hours (Table) 01/07/23 01/07/23 01/08/23 Range/Units 16:48 20:51 06:20 RBC 3.29 L (4.10-5.20) X 10*6/uL Hgb 8.0 L (12.0-15.0) d/dL Hct 28.7 L (37.2-46.3) % MCH 24.3 L (27.0-32.0) pg MCHC 27.9 L (32.0-37.0) d/dL RDW 18.8 H (11.5-14.5) % MPV 9.4 L (9.5-12.2) FL Carbon Dioxide (21.6-31.8) mmol/L Glucose (70-110) mg/dL POC Glucose (mg/dL) 148 H 174 H (70-110) mg/dL Calcium (8.7-10.3) mg/dL 01/08/23 01/08/23 01/08/23 Range/Units 06:20 06:40 11:21 RBC (4.10-5.20) X 10*6/uL Hgb (12.0-15.0) d/dL Hct (37.2-46.3) % MCH (27.0-32.0) pg MCHC (32.0-37.0) d/dL RDW (11.5-14.5) % MPV (9.5-12.2) FL Carbon Dioxide 34.3 H (21.6-31.8) mmol/L Glucose 128 H (70-110) mg/dL POC Glucose (mg/dL) 144 H 186 H (70-110) mg/dL Calcium 8.6 L (8.7-10.3) mg/dL Assessment and Plan Plan: Witnessed syncope, possible cardiac arrest, status post CPR for 5 minutes with return of spontaneous circulation on 12/27/2022, currently awake and alert without any significant neurological deficits Acute hypoxic and hypercapnic respiratory failure secondary to above, improved currently on 3 L nasal cannula and the patient is currently off the BiPAP Suspect aspiration pneumonia and completed Zosyn, pro-calcitonin 0.15, the patient has completed antibiotic course chronic systolic congestive heart failure ejection fraction of 45 %, with superimposed pneumonia Chronic atrial fibrillation, anticoagulated with Xarelto Anemia with a drop in hemoglobin to 6.7, received 1 unit of packed red blood cells, follow-up hemoglobin 9.1. Plan for EGD/colonoscopy 01/06/2023, mother the patient was receiving anticoagulation with Xarelto on outpatient basis Chronic urinary tract infection Morbid obesity, BMI of 47.2 History of underlying coronary artery disease History of CVA/TIA Benign essential hypertension Dyslipidemia Degenerative joint disease Hypothyroidism Fibromyalgia History of DVT and pulmonary embolism Chronic kidney disease stage III Diabetic neuropathy and nephropathy History of hypertension Gram-positive bacteremia, final report is pending Plan: Hemoglobin is stable Antibiotic evaluation with Xarelto has been restarted EGD showed antral gastritis, colonoscopy was a poor prep, hemoglobin stable Overall pulmonary status is stable and the patient is currently resting comfortably in bed Completed the course of IV Zosyn We will continue to follow, the patient is to be discharged today to [facility] for further rehabilitation.
[2023-01-08 17:13] LABS: Glucose,Whole Blood 134 mg/dL (70-110)
[2023-01-08] MEDS ORDERED: RIVAROXABAN 15 MG TAB PO SCH (17:30)
[2023-01-09] MEDS ORDERED: RIVAROXABAN 10 MG TAB PO SCH (09:00)
--- NOTE | 2023-01-10 07:17 | CDI ---
Documentation Clarification Form Date: 01/10/23 From: Jazlyn Burgos Admit Date: 12/27/2022 11:46:00 PM Patient Name: Uma Oconnell Visit Number: [id number] Discharge Date: 01/08/2023 06:15:00 PM ATTENTION: The Clinical Documentation Specialists (CDI) and [facility] Coding Staff appreciate your assistance in clarifying documentation. Please respond to the clarification below the line at the bottom and electronically sign. The CDI & [facility] Coding staff will review the response and follow-up if needed. Please note: Queries are made part of the Legal Health Record. If you have any questions, please contact the author of this message via ITS. Dr. Deo Miller, Conflicting documentation has been found in the medical record. As attending physician, please provide clarification. ED note documents Sepsis on admission. Dr Jordan 12/29 PN documents Sepsis secondary to pneumonia & UTI. History/Risk Factors: cardiac arrest, acute hypoxic respiratory failure, HTN w acute on chronic systolic CHF and Stage III CKD, UTIs Clinical Indicators: S/P cardiac arrest. T 98.4, P 99, R 36, BP 132/93, O2 75 WBC 11.6/13.5, Neurtropils 6.8/11.4, Lactic acid 2.9 Treatment: IV antibiotics Please clarify which diagnosis is most appropriate: [ x] Sepsis, POA [ ] No sepsis [ ] Other (please specify) [ ] Unable to determine MTDD
== END 2023-01-08 18:15 | DRG 871 ==
LOC: EC 21:32 → 2SICU 23:46 → 4SSUR 12-31 09:45
PROVIDERS: ADMIT Hospitalist; ATTEND Hospitalist
PROC: 5A09357 Assistance with Respiratory Ventilation, Less than 24 Consecutive Hours, Continuous Positive Airway Pressure (ICD-10-PCS; 2022-12-27)
PROC: 30233N1 Transfusion of Nonautologous Red Blood Cells into Peripheral Vein, Percutaneous Approach (ICD-10-PCS; 2023-01-02)
PROC: 05HD33Z Insertion of Infusion Device into Right Cephalic Vein, Percutaneous Approach (ICD-10-PCS; 2023-01-06)
PROC: 0DB78ZX Excision of Stomach, Pylorus, Via Natural or Artificial Opening Endoscopic, Diagnostic (ICD-10-PCS; principal; 2023-01-06 13:30)
PROC: 0DJD8ZZ Inspection of Lower Intestinal Tract, Via Natural or Artificial Opening Endoscopic (ICD-10-PCS; principal; 2023-01-06 13:30)
DX: A41.9 Sepsis, unspecified organism (principal); I46.9 Cardiac arrest, cause unspecified; J96.01 Acute respiratory failure with hypoxia; J69.0 Pneumonitis due to inhalation of food and vomit; J96.02 Acute respiratory failure with hypercapnia; I50.23 Acute on chronic systolic (congestive) heart failure; I13.0 Hypertensive heart and chronic kidney disease with heart failure and stage 1 through stage 4 chronic kidney disease, or unspecified chronic kidney disease; I42.9 Cardiomyopathy, unspecified; Z68.42 Body mass index [BMI] 45.0-49.9, adult; N39.0 Urinary tract infection, site not specified; E11.22 Type 2 diabetes mellitus with diabetic chronic kidney disease; D50.9 Iron deficiency anemia, unspecified; I27.20 Pulmonary hypertension, unspecified; E11.40 Type 2 diabetes mellitus with diabetic neuropathy, unspecified; I48.0 Paroxysmal atrial fibrillation; N18.30 Chronic kidney disease, stage 3 unspecified; E66.01 Morbid (severe) obesity due to excess calories; Z79.4 Long term (current) use of insulin; Z11.52 Encounter for screening for COVID-19; Z28.310 Unvaccinated for COVID-19; E03.9 Hypothyroidism, unspecified; E78.5 Hyperlipidemia, unspecified; K29.00 Acute gastritis without bleeding; I25.10 Atherosclerotic heart disease of native coronary artery without angina pectoris; I25.2 Old myocardial infarction; F32.A Depression, unspecified; M19.90 Unspecified osteoarthritis, unspecified site; H18.519 Endothelial corneal dystrophy, unspecified eye; M79.7 Fibromyalgia; K59.09 Other constipation; M10.9 Gout, unspecified; L30.9 Dermatitis, unspecified; M54.50 Low back pain, unspecified; Z79.82 Long term (current) use of aspirin; Z79.890 Hormone replacement therapy; Z79.01 Long term (current) use of anticoagulants; Z79.899 Other long term (current) drug therapy; Z87.891 Personal history of nicotine dependence; Z87.442 Personal history of urinary calculi; Z87.440 Personal history of urinary (tract) infections; Z86.718 Personal history of other venous thrombosis and embolism; Z86.711 Personal history of pulmonary embolism; Z86.73 Personal history of transient ischemic attack (TIA), and cerebral infarction without residual deficits; Z95.5 Presence of coronary angioplasty implant and graft; Z86.14 Personal history of Methicillin resistant Staphylococcus aureus infection; Z86.19 Personal history of other infectious and parasitic diseases; Z71.3 Dietary counseling and surveillance; W19.XXXA Unspecified fall, initial encounter; Y92.129 Unspecified place in nursing home as the place of occurrence of the external cause; Z88.1 Allergy status to other antibiotic agents; Z91.040 Latex allergy status
CPT/HCPCS: 36415; 36600; 43239; 45378; 51702; 70450; 71045; 71275; 74177; 80048; 80053; 80076; 80202; 81001; 82565; 82607; 82728; 82746; 82805; 83036; 83540; 83550; 83605; 83735; 83880; 84145; 84443; 84484; 85025; 85027; 85610; 85730; 86140; 86850; 86900; 86901; 86920; 87040; 87086; 87449; 87636; 88305; 93005; 93306; 94640; 94660; 94760; 96365; 96366; 96367; 96375; 99291

== ENCOUNTER → 2023-02-21 | Outpatient (CLI) | payer MEDICARE ==
--- NOTE | 2023-02-21 11:16 | CT ---
EXAMINATION TYPE: CT abdomen pelvis wo con DATE OF EXAM: 02/21/2023 COMPARISON: 12/27/2022 HISTORY: 67-year-old female R1 0.9, specified abdominal pain, eval of kidney stones and stent. CT DLP: 1435.70 mGycm. Automated exposure control for dose reduction was used. TECHNIQUE: Contiguous axial scanning of the abdomen and pelvis without IV contrast. Coronal and sagit brianne reconstructions performed. FINDINGS: Very large patient body habitus with arms down by her side causing artifacts and limiting the exam. F urther limitation due to lack of contrast. Heart mildly enlarged without pericardial effusion. Scattered coronary artery calcifications are pres ent. Bandlike areas of atelectasis or scarring in the lower lungs. No pleural effusion. Limited, noncontrast appearance of the liver may show slight contour nodularity. Further correlation to exclude underlying cirrhosis. Cholecystectomy clips. Adrenal glands, spleen, and pancreas show no gross abnormality. Vascular calcifications are present throughout. 7 mm nonobstructive left renal calculus. 3.7 cm cortical cyst posterior right kidney. There is a right ureteral stent present. Small calculi are present at the proximal stent lobe measuri ng 7 mm. At the UPJ along the course of the stent, an additional 7 mm stone is present. No hydronephrosis is s een. There is rectus diastases with anterior bulging of mesenteric fat and colon. Diastases measuring 10.8 cm wide. No dilated small bowel, free fluid, or free air. No mesenteric or retroperitoneal lymphadenopathy see n. Some surgical material noted in the right lower quadrant. There is moderate to large stool burden. No pericolonic inflammatory change. Bladder is nondistended but distal loop of the right ureteral stent appears to be in place. Extensive artifacts relating to the patient's large size limiting detailed assessment of the pelvis. This seem s to be an anteverted uterus but detailed assessment is very limited. Unable to adequately visualize the ovaries. No obvious pelvic lymphadenopathy seen. Bones: Moderate degenerative change of the hips and SI joints. Moderate spondylotic changes throughou t the visualized lumbar spine. IMPRESSION: 1. Exam limited by lack of contrast and extensive artifacts secondary to large body habitus. 2. Right ureteral stent in place. A couple stones are present at the proximal stent loop measuring u p to 7 mm. An additional 7 mm stone is present at the right UVJ along the course of the stent. No hyd ronephrosis. 3. Additional 7 mm nonobstructive left renal calculus. 4. Moderate stool burden.
== END | disposition home or self-care (01) ==
LOC: RADCTMAIN 07:53
PROVIDERS: ATTEND Urology
DX: N20.0 Calculus of kidney (principal); K56.41 Fecal impaction; Z96.0 Presence of urogenital implants
CPT/HCPCS: 74176

== ENCOUNTER 2023-03-06 08:53 | Day surgery (SDC) | payer MEDICARE ==
[2023-03-05 13:41] VITALS: BMI 47.2
[~2023-03-06 08:53] MED LIST changes: -AMPICILLIN 1,000 MG in SODIUM CHLORIDE 0.9% 50 ML IVPB PRN; -DEXAMETHASONE SOD PHOSPHATE 4 MG/ML 1 ML VIAL IV ONE; -GENTAMICIN 110 MG in SODIUM CHLORIDE 0.9% 100 ML IVPB PRN; -ONDANSETRON 4 MG/2 ML VIAL IVP ONE
[2023-03-06 10:00] VITALS: TEMP 97
[2023-03-06 10:07] LABS: Glucose,Whole Blood 168 mg/dL (70-110)
[2023-03-06] MEDS ORDERED: PROPOFOL 10 MG/ML 20 ML VIAL IV ONE (10:27)
[2023-03-06] MEDS ORDERED: LIDOCAINE 1% INJ 10MG/ML (20 ML MDV) ONE (10:27)
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
--- NOTE | 2023-03-06 10:48 | P.OP ---
Date of Procedure: 03/06/23 Preoperative Diagnosis: Anemia Screening colonoscopy Postoperative Diagnosis: Normal colon to transverse colon Poor colon prep Procedure(s) Performed: colonoscopy Anesthesia: MAC Surgeon: Prakash Early Pathology: none sent Condition: stable Disposition: PACU Description of Procedure: Patient's placed on the operative table on the lateral position. She received IV sedation. Digital rectal exam was performed. This revealed a large amount liquid stool. The flexible colonoscope was then placed patient anus and passed with colon. The colonoscope was advanced to the level of the mid transverse colon. There was a very poor colon prep. The scope was then withdrawn. The visualized transverse colon, descending colon sigmoid colon appeared normal. However the view was quite limited due to the poor colon prep. The scope was back the rectum this appeared normal. Scope withdrawn for patient.
[2023-03-06 11:18] LABS: Glucose,Whole Blood 129 mg/dL (70-110)
[2023-03-06 11:31] VITALS: BP 135/78; PULSE 65; RESP 15
== END 2023-03-06 11:49 | disposition home or self-care (01) ==
LOC: ORWHC2ENDO 08:53
PROVIDERS: ATTEND Surgery
DX: D50.9 Iron deficiency anemia, unspecified (principal); E11.9 Type 2 diabetes mellitus without complications; I48.91 Unspecified atrial fibrillation; J45.909 Unspecified asthma, uncomplicated; I25.10 Atherosclerotic heart disease of native coronary artery without angina pectoris; I25.2 Old myocardial infarction; E78.5 Hyperlipidemia, unspecified; I11.0 Hypertensive heart disease with heart failure; M79.7 Fibromyalgia; K21.9 Gastro-esophageal reflux disease without esophagitis; Z86.711 Personal history of pulmonary embolism; E11.22 Type 2 diabetes mellitus with diabetic chronic kidney disease; Z87.891 Personal history of nicotine dependence; Z91.040 Latex allergy status; Z86.73 Personal history of transient ischemic attack (TIA), and cerebral infarction without residual deficits; Z88.1 Allergy status to other antibiotic agents; Z79.890 Hormone replacement therapy; Z79.899 Other long term (current) drug therapy
CPT/HCPCS: 45378; J2001; J2704

== ENCOUNTER 2023-05-15 04:33 | Inpatient (IN) | payer MEDICARE ==
--- NOTE | 2023-05-15 05:04 | ED ---
General Adult HPI - General Chief complaint: Recheck/Abnormal Lab/Rx Stated complaint: Low Hemoglobin Time Seen by Provider: 05/15/23 04:46 Source: patient, EMS Mode of arrival: EMS - History of Present Illness Initial comments: 67-year-old female with past medical history of A-fib on Xarelto, CVA, PE, heart failure who presents to the emergency department with abnormal labs. Patient has longstanding anemia. She has had multiple endoscopies and colonoscopies to look for source of bleeding. States that she has dark stools all the time. Had routine labs done at the facility and it demonstrated a hemoglobin of 3.4. She was transferred for this lab value. Reports that she feels weak most of the time. Denies any chest pain. States that they chan her labs off of her PICC line. No abdominal pain. No other alleviating, precipitating modifying factors - Related Data Home Medications Medication Instructions Recorded Confirmed Montelukast [Singulair] 10 mg PO HS@209908/28/17 05/15/23 Acetaminophen Tab [Tylenol] 1,000 mg PO Q6H PRN 05/22/21 05/15/23 Levothyroxine Sodium [Synthroid] 125 mcg PO DAILY@59905/22/21 05/15/23 Loratadine [Claritin] 10 mg PO DAILY PRN 05/22/21 05/15/23 methocarbamoL [Robaxin] 500 mg PO TID PRN 05/22/21 05/15/23 Isosorbide Mononitrate ER [Imdur] 30 mg PO DAILY@89912/04/21 05/15/23 Nitroglycerin Sl Tabs [Nitrostat] 0.4 mg SL Q5M PRN 12/04/21 05/15/23 DULoxetine HCL [Cymbalta] 30 mg PO BID@0900,209909/27/22 05/15/23 Omeprazole [PriLOSEC] 20 mg PO DAILY@59909/27/22 05/15/23 allopurinoL 100 mg PO DAILY@89909/27/22 05/15/23 busPIRone HCl [Buspar] 10 mg PO BID@0900,209909/27/22 05/15/23 Melatonin 5 mg PO HS@209911/19/22 05/15/23 Aspirin 81 mg PO DAILY@89912/27/22 05/15/23 Atorvastatin [Lipitor] 80 mg PO HS@209912/27/22 05/15/23 Cyanocobalamin [Vitamin B-12] 1,000 mcg PO DAILY@89912/27/22 05/15/23 Metoprolol Succinate (ER) [Toprol 50 mg PO DAILY@89912/27/22 05/15/23 XL] Ascorbic Acid [Vitamin C] 500 mg PO DAILY@89903/05/23 05/15/23 Insulin Glargine,Hum.rec.anlog 15 units SQ HS@209903/05/23 05/15/23 [Lantus Solostar Pen] Benzocaine/Menthol Lozeng [Cepacol 1 lozenge MUCOUS MEM Q4HR PRN 05/15/23 05/15/23 lozenge] Gabapentin [Neurontin] 300 mg PO HS@209905/15/23 05/15/23 Guaifenesin/Dextromethorphan 10 ml PO Q4H PRN 05/15/23 05/15/23 [Guaifenesin-Dm 100-10 mg/5 ml] Insulin Lispro [humaLOG Kwikpen] See Protocol SQ QID@08,12,17,21 05/15/23 05/15/23 L.acidoph,Paracasei, B.lactis 1 cap PO DAILY@89905/15/23 05/15/23 [Probiotic] Potassium Citrate [Urocit-K] 30 meq PO BID@0900,209905/15/23 05/15/23 Rivaroxaban [Xarelto] 15 mg PO DAILY@1700 05/15/23 05/15/23 Previous Rx's Medication Instructions Recorded Docusate [Colace] 100 mg PO BID PRN cap 10/01/22 Sennosides [Senokot] 8.6 mg PO DAILY PRN tab 01/08/23 polyethylene glycoL 3350 [Miralax] 17 gm PO DAILY PRN packet 01/08/23 Furosemide [Lasix] 40 mg PO DAILY tab 05/20/23 INSULIN ASPART (NovoLOG) [NovoLOG 0 unit SQ ACHS each 05/20/23 (formulary)] Lactulose [Cephulac] 30 gm PO BID ml 05/20/23 Nystatin 100,000 Unit/gm Powd 1 applic TOPICAL TID each 05/20/23 [Mycostatin Powder] Allergies Allergy/AdvReac Type Severity Reaction Status Date / Time grass pollen Allergy Sinus Verified 05/15/23 08:25 latex Allergy Rash/Hives Verified 05/15/23 08:25 Milk Containing Products Allergy Unknown Verified 05/15/23 08:25 (Dairy) [Dairy] mold Allergy Sinus Verified 05/15/23 08:25 pollen extracts Allergy Sinus Verified 05/15/23 08:25 tree and shrub pollen Allergy Sinus Verified 05/15/23 08:25 Tetracyclines AdvReac YEAST Verified 05/15/23 08:25 INFECTION- PREFERS NOT TO TAKE tramadol AdvReac Unknown Verified 05/15/23 08:25 ENVIRONMENTAL ALLERGIES Allergy SINUS Uncoded 05/15/23 08:25 SYMPTOMS-GRASS TREES,DUST,POLLENS,MOLD Review of Systems ROS Statement: Those systems with pertinent positive or pertinent negative responses have been documented in the HPI. ROS Other: All systems not noted in ROS Statement are negative. Past Medical History Past Medical History: Atrial Fibrillation, Asthma, Coronary Artery Disease (CAD), Heart Failure, CVA/TIA, Diabetes Mellitus, Deep Vein Thrombosis (DVT), Fibromyalgia, Hyperlipidemia, Hypertension, Myocardial Infarction (AR), Osteoarthritis (OA), Pulmonary Embolus (PE), Skin Disorder, Thyroid Disorder Additional Past Medical History / Comment(s): frequent uti's,kidney stones,HEART MURMUR,cardiomyopathy,CHRONIC CONSTIPATION, ECZEMA,SINUS HEADACHES, HX ANEMIA, gout. stage III kidney disease stage 3,lower back pain. 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.FEEt, weakness LT SIDE, ,stg three kidney disease,eye disorder fuchs corneal dystrophy. 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 CATARACT BLACK. WITH IMPLANTS. HEART CATH X 3 TOTAL 3 STENTS, lithotripsy,kidney stent Past Anesthesia/Blood Transfusion Reactions: Motion Sickness Additional Past Anesthesia/Blood Transfusion Reaction / Comment(s): no hx blood transfusion Date of Last Stent Placement:: UNKNOWN Past Psychological History: Depression Smoking Status: Former smoker - Past Family History Father Additional Family Medical History / Comment(s): "HARDENEING OF THE ARTERIES AT AGE 41. SMOKED AND DRANK ETOH Mother Family Medical History: Cancer Additional Family Medical History / Comment(s): "cyst that ruptured between bowel and bladder" General Exam General appearance: alert, in no apparent distress, obese Head exam: Present: atraumatic, normocephalic, normal inspection Eye exam: Present: normal appearance, PERRL, EOMI. Absent: scleral icterus, conjunctival injection, periorbital swelling ENT exam: Present: normal exam, mucous membranes moist Neck exam: Present: normal inspection. Absent: tenderness, meningismus, lymphadenopathy Respiratory exam: Present: normal lung sounds bilaterally. Absent: respiratory distress, wheezes, rales, rhonchi, stridor Cardiovascular Exam: Present: regular rate, normal rhythm, normal heart sounds. Absent: systolic murmur, diastolic murmur, rubs, gallop, clicks GI/Abdominal exam: Present: soft, normal bowel sounds. Absent: distended, tenderness, guarding, rebound, rigid Rectal exam: Present: heme (+) stool, other (Brown stool) Extremities exam: Present: normal inspection, full ROM, normal capillary refill. Absent: tenderness, pedal edema, joint swelling, calf tenderness Back exam: Present: normal inspection Neurological exam: Present: alert, oriented X3, CN II-XII intact Psychiatric exam: Present: normal affect, normal mood Skin exam: Present: warm, dry, intact, normal color. Absent: rash Course Vital Signs 05/15/23 05/15/23 05/15/23 04:37 04:42 05:00 Temperature 97.6 F Pulse Rate 69 66 Pulse Rate [ Pulse Oximetery ] Respiratory 20 17 24 Rate Blood Pressure 128/88 113/53 Blood Pressure [Right Arm] O2 Sat by Pulse 99 99 Oximetry 05/15/23 05/15/23 05/15/23 05:42 07:27 11:00 Temperature 98.7 F Pulse Rate 63 64 71 Pulse Rate [ Pulse Oximetery ] Respiratory 18 18 20 Rate Blood Pressure 100/74 110/62 104/65 Blood Pressure [Right Arm] O2 Sat by Pulse 100 97 98 Oximetry 05/15/23 17:50 Temperature 97.9 F Pulse Rate Pulse Rate [ 79 Pulse Oximetery ] Respiratory 19 Rate Blood Pressure Blood Pressure 98/56 [Right Arm] O2 Sat by Pulse 93 L Oximetry Medical Decision Making - Medical Decision Making Was pt. sent in by a medical professional or institution (SHAR Nevarez, POLYMER SPECIALIST, urgent care, hospital, or [facility]...) When possible be specific @ -Patient sent in from rehab facility Did you speak to anyone other than the patient for history (EMS, parent, family, police, friend...)? What history was obtained from this source @ -Spoke with EMS Did you review nursing and triage notes (agree or disagree)? Why? @ -I reviewed and agree with nursing and triage notes Were old charts reviewed (outside hosp., previous admission, EMS record, old EKG, old radiological studies, urgent care reports/EKG's, [facility] records)? Report findings @ -I reviewed the patient's chart from her extended care facility Differential Diagnosis (chest pain, altered mental status, abdominal pain women, abdominal pain men, vaginal bleeding, weakness, fever, dyspnea, syncope, headache, dizziness, GI bleed, back pain, seizure, CVA, palpatations, mental health, musculoskeletal)? @ -Differential GI Bleed: Esophageal varices, aortoenteric fistula, Radha-Rogers, gastritis, peptic ulcer disease, diverticulosis, inflammatory bowel disease, hemorrhoids, fissure, colitis, malignancy, Meckels diverticulum, this is not meant to be an all- inclusive list. EKG interpreted by me (3pts min.). @ -Yes and demonstrates sinus rhythm with a rate of 66 X-rays interpreted by me (1pt min.). @ -None done CT interpreted by me (1pt min.). @ -None done U/S interpreted by me (1pt. min.). @ -None done What testing was considered but not performed or refused? (CT, X-rays, U/S, labs)? Why? @ -None What meds were considered but not given or refused? Why? @ -None Did you discuss the management of the patient with other professionals (professionals i.e. SHAR Nevarez, POLYMER SPECIALIST, lab, RT, psych nurse, manager social, town clerk, teacher, truant officer, supervisor case loading)? Give summary @ -Spoke with Aramndo from [facility] Was smoking cessation discussed for >3mins.? @ -No Was critical care preformed (if so, how long)? @ -No Were there social determinants of health that impacted care today? How? (Homelessness, low income, unemployed, alcoholism, drug addiction, transportation, low edu. Level, literacy, decrease access to med. care, longterm, rehab)? @ -No Was there de-escalation of care discussed even if they declined (Discuss DNR or withdrawal of care, Hospice)? DNR status @ -No What co-morbidities impacted this encounter? (DM, HTN, Smoking, COPD, CAD, Cancer, CVA, ARF, Chemo, Hep., AIDS, mental health diagnosis, sleep apnea, m orbid obesity)? @ -GI bleed, coronary artery disease, A-fib Was patient admitted / discharged? Hospital course, mention meds given and route, prescriptions, significant lab abnormalities, going to OR and other pertinent info. @ -Admitted. Upon arrival patient placed into room 9. Thorough history and physical exam was performed. Rectal exam was performed and demonstrated brown stool. Laboratory studies are conducted. Patient does have stable hemoglobin at this time. Troponin was added because of the order set and is found to be high. This is discussed with the patient. He has no chest pain or shortness of breath. She is resting comfortably eating potato chips in the room. Informed the patient that I must keep her due to her elevated troponin for which she understood. Spoke with Armando from [facility] who admitted the patient Undiagnosed new problem with uncertain prognosis? @ -Yes Drug Therapy requiring intensive monitoring for toxicity (Heparin, Nitro, Insulin, Cardizem)? @ -No Were any procedures done? @ -No Diagnosis/symptom? @ -Anemia, occult positive, NSTEMI, anticoagulated status Acute, or Chronic, or Acute on Chronic? @ -Acute Uncomplicated (without systemic symptoms) or Complicated (systemic symptoms)? @ -Complicated Side effects of treatment? @ -No Exacerbation, Progression, or Severe Exacerbation? @ -No Poses a threat to life or bodily function? How? (Chest pain, USA, AR, pneumonia, PE, COPD, DKA, ARF, appy, cholecystitis, CVA, Diverticulitis, Homicidal, Suicidal, threat to staff... and all critical care pts) @ -No - Lab Data Result diagrams: 05/19/23 05:40 05/19/23 05:40 Lab Results 05/15/23 05/15/23 05/15/23 Range/Units 05:08 05:08 05:08 WBC 6.1 (3.8-10.6) k/uL RBC 3.05 L (3.80-5.40) m/uL Hgb 8.0 L D (11.4-16.0) gm/dL Hct 26.8 L (34.0-46.0) % MCV 87.8 (80.0-100.0) fL MCH 26.2 (25.0-35.0) pg MCHC 29.8 L (31.0-37.0) g/dL RDW 17.4 H (11.5-15.5) % Plt Count 229 (150-450) k/uL MPV 7.7 Immature Gran % (Auto) % Absolute Nucleated RBC % Neutrophils % 56 % Lymphocytes % 27 % Monocytes % 5 % Eosinophils % 9 % Basophils % 1 % Immature Gran # (0.00-0.04) X 10*3/uL Neutrophils # 3.4 (1.3-7.7) k/uL Lymphocytes # 1.6 (1.0-4.8) k/uL Monocytes # 0.3 (0-1.0) k/uL Eosinophils # 0.5 (0-0.7) k/uL Basophils # 0.0 (0-0.2) k/uL NRBC/100 WBC Diff (0.00-0.01) X 10*3/uL Hypochromasia Marked Poikilocytosis Slight Anisocytosis Slight PT 12.5 (10.0-12.5) sec INR 1.2 H (<1.2) APTT 26.9 (22.0-30.0) sec Sodium (137-145) mmol/L Potassium (3.5-5.1) mmol/L Chloride (98-107) mmol/L Carbon Dioxide (22-30) mmol/L Anion Gap mmol/L BUN (7-17) mg/dL Creatinine (0.52-1.04) mg/dL Est GFR (CKD-EPI) (>=60) Est GFR (CKD-EPI)AfAm (>60 ml/min/1.73 sqM) Est GFR (CKD-EPI)NonAf (>60 ml/min/1.73 sqM) BUN/Creatinine Ratio (12.00-20.00) Ratio Glucose (74-99) mg/dL POC Glucose (mg/dL) (70-110) mg/dL POC Glu Medical Care Administrator ID Estimated Ave Glu mg/dL mg/dL Hemoglobin A1c (<=6.0) % Plasma Lactic Acid Dev (0.7-2.0) mmol/L Calcium (8.4-10.2) mg/dL Iron (50-170) UG/DL TIBC (228-460) UG/DL % Saturation (12.00-45.00) Transferrin (204.0-354.0) mg/dL Ferritin (10.0-291.0) ng/mL Total Bilirubin (0.2-1.3) mg/dL AST (14-36) U/L ALT (4-34) U/L Alkaline Phosphatase (38-126) U/L Troponin I (0.000-0.034) ng/mL C-Reactive Protein (<1.0) mg/dL Total Protein (6.3-8.2) g/dL Albumin (3.5-5.0) g/dL Vitamin B12 (200.0-944.0) pg/mL Folate (4.40-31.00) ng/mL Procalcitonin (0.02-0.09) ng/mL Urine Color Urine Appearance (Clear) Urine pH (5.0-8.0) Ur Specific Marceline (1.001-1.035) Urine Protein (Negative) Urine Glucose (UA) (Negative) Urine Ketones (Negative) Urine Blood (Negative) Urine Nitrite (Negative) Urine Bilirubin (Negative) Urine Urobilinogen (<2.0) mg/dL Ur Leukocyte Esterase (Negative) Urine RBC (0-5) /hpf Urine WBC (0-5) /hpf Urine WBC Clumps (None) /hpf Ur Squamous Epith Cells (0-4) /hpf Hyaline Casts (0-2) /lpf Stool Occult Blood Positive H (Negative) Blood Type Blood Type Recheck Bld Type Recheck Status Antibody Screen Spec Expiration Date 05/15/23 05/15/23 05/15/23 Range/Units 05:08 05:08 05:08 WBC (3.8-10.6) k/uL RBC (3.80-5.40) m/uL Hgb (11.4-16.0) gm/dL Hct (34.0-46.0) % MCV (80.0-100.0) fL MCH (25.0-35.0) pg MCHC (31.0-37.0) g/dL RDW (11.5-15.5) % Plt Count (150-450) k/uL MPV Immature Gran % (Auto) % Absolute Nucleated RBC % Neutrophils % % Lymphocytes % % Monocytes % % Eosinophils % % Basophils % % Immature Gran # (0.00-0.04) X 10*3/uL Neutrophils # (1.3-7.7) k/uL Lymphocytes # (1.0-4.8) k/uL Monocytes # (0-1.0) k/uL Eosinophils # (0-0.7) k/uL Basophils # (0-0.2) k/uL NRBC/100 WBC Diff (0.00-0.01) X 10*3/uL Hypochromasia Poikilocytosis Anisocytosis PT (10.0-12.5) sec INR (<1.2) APTT (22.0-30.0) sec Sodium 139 (137-145) mmol/L Potassium 4.3 (3.5-5.1) mmol/L Chloride 96 L (98-107) mmol/L Carbon Dioxide 40 H (22-30) mmol/L Anion Gap 3 mmol/L BUN 21 H (7-17) mg/dL Creatinine 0.87 (0.52-1.04) mg/dL Est GFR (CKD-EPI) (>=60) Est GFR (CKD-EPI)AfAm 79 (>60 ml/min/1.73 sqM) Est GFR (CKD-EPI)NonAf 69 (>60 ml/min/1.73 sqM) BUN/Creatinine Ratio (12.00-20.00) Ratio Glucose 110 H (74-99) mg/dL POC Glucose (mg/dL) (70-110) mg/dL POC Glu Medical Care Administrator ID Estimated Ave Glu mg/dL mg/dL Hemoglobin A1c (<=6.0) % Plasma Lactic Acid Dev 1.1 (0.7-2.0) mmol/L Calcium 8.1 L (8.4-10.2) mg/dL Iron (50-170) UG/DL TIBC (228-460) UG/DL % Saturation (12.00-45.00) Transferrin (204.0-354.0) mg/dL Ferritin (10.0-291.0) ng/mL Total Bilirubin 0.5 (0.2-1.3) mg/dL AST 25 (14-36) U/L ALT 12 (4-34) U/L Alkaline Phosphatase 127 H (38-126) U/L Troponin I 2.030 H* (0.000-0.034) ng/mL C-Reactive Protein (<1.0) mg/dL Total Protein 5.5 L (6.3-8.2) g/dL Albumin 2.9 L (3.5-5.0) g/dL Vitamin B12 (200.0-944.0) pg/mL Folate (4.40-31.00) ng/mL Procalcitonin (0.02-0.09) ng/mL Urine Color Urine Appearance (Clear) Urine pH (5.0-8.0) Ur Specific Marceline (1.001-1.035) Urine Protein (Negative) Urine Glucose (UA) (Negative) Urine Ketones (Negative) Urine Blood (Negative) Urine Nitrite (Negative) Urine Bilirubin (Negative) Urine Urobilinogen (<2.0) mg/dL Ur Leukocyte Esterase (Negative) Urine RBC (0-5) /hpf Urine WBC (0-5) /hpf Urine WBC Clumps (None) /hpf Ur Squamous Epith Cells (0-4) /hpf Hyaline Casts (0-2) /lpf Stool Occult Blood (Negative) Blood Type Blood Type Recheck Bld Type Recheck Status Antibody Screen Spec Expiration Date 05/15/23 05/15/23 05/15/23 Range/Units 05:08 09:30 10:00 WBC (3.8-10.6) k/uL RBC (3.80-5.40) m/uL Hgb (11.4-16.0) gm/dL Hct (34.0-46.0) % MCV (80.0-100.0) fL MCH (25.0-35.0) pg MCHC (31.0-37.0) g/dL RDW (11.5-15.5) % Plt Count (150-450) k/uL MPV Immature Gran % (Auto) % Absolute Nucleated RBC % Neutrophils % % Lymphocytes % % Monocytes % % Eosinophils % % Basophils % % Immature Gran # (0.00-0.04) X 10*3/uL Neutrophils # (1.3-7.7) k/uL Lymphocytes # (1.0-4.8) k/uL Monocytes # (0-1.0) k/uL Eosinophils # (0-0.7) k/uL Basophils # (0-0.2) k/uL NRBC/100 WBC Diff (0.00-0.01) X 10*3/uL Hypochromasia Poikilocytosis Anisocytosis PT (10.0-12.5) sec INR (<1.2) APTT (22.0-30.0) sec Sodium (137-145) mmol/L Potassium (3.5-5.1) mmol/L Chloride (98-107) mmol/L Carbon Dioxide (22-30) mmol/L Anion Gap mmol/L BUN (7-17) mg/dL Creatinine (0.52-1.04) mg/dL Est GFR (CKD-EPI) (>=60) Est GFR (CKD-EPI)AfAm (>60 ml/min/1.73 sqM) Est GFR (CKD-EPI)NonAf (>60 ml/min/1.73 sqM) BUN/Creatinine Ratio (12.00-20.00) Ratio Glucose (74-99) mg/dL POC Glucose (mg/dL) (70-110) mg/dL POC Glu Medical Care Administrator ID Estimated Ave Glu mg/dL mg/dL Hemoglobin A1c (<=6.0) % Plasma Lactic Acid Dev (0.7-2.0) mmol/L Calcium (8.4-10.2) mg/dL Iron 26 L (50-170) UG/DL TIBC 326 (228-460) UG/DL % Saturation 7.98 L (12.00-45.00) Transferrin 233.0 (204.0-354.0) mg/dL Ferritin 37.6 (10.0-291.0) ng/mL Total Bilirubin (0.2-1.3) mg/dL AST (14-36) U/L ALT (4-34) U/L Alkaline Phosphatase (38-126) U/L Troponin I 1.260 H* (0.000-0.034) ng/mL C-Reactive Protein 5.0 H (<1.0) mg/dL Total Protein (6.3-8.2) g/dL Albumin (3.5-5.0) g/dL Vitamin B12 1352.0 H (200.0-944.0) pg/mL Folate (4.40-31.00) ng/mL Procalcitonin (0.02-0.09) ng/mL Urine Color Urine Appearance (Clear) Urine pH (5.0-8.0) Ur Specific Marceline (1.001-1.035) Urine Protein (Negative) Urine Glucose (UA) (Negative) Urine Ketones (Negative) Urine Blood (Negative) Urine Nitrite (Negative) Urine Bilirubin (Negative) Urine Urobilinogen (<2.0) mg/dL Ur Leukocyte Esterase (Negative) Urine RBC (0-5) /hpf Urine WBC (0-5) /hpf Urine WBC Clumps (None) /hpf Ur Squamous Epith Cells (0-4) /hpf Hyaline Casts (0-2) /lpf Stool Occult Blood (Negative) Blood Type A Positive Blood Type Recheck A Pos Bld Type Recheck Status No Antibody Screen NEGATIVE Spec Expiration Date 05/18/2023 - 230705/15/23 05/15/23 05/15/23 Range/Units 10:00 10:00 11:56 WBC (3.8-10.6) k/uL RBC (3.80-5.40) m/uL Hgb (11.4-16.0) gm/dL Hct (34.0-46.0) % MCV (80.0-100.0) fL MCH (25.0-35.0) pg MCHC (31.0-37.0) g/dL RDW (11.5-15.5) % Plt Count (150-450) k/uL MPV Immature Gran % (Auto) % Absolute Nucleated RBC % Neutrophils % % Lymphocytes % % Monocytes % % Eosinophils % % Basophils % % Immature Gran # (0.00-0.04) X 10*3/uL Neutrophils # (1.3-7.7) k/uL Lymphocytes # (1.0-4.8) k/uL Monocytes # (0-1.0) k/uL Eosinophils # (0-0.7) k/uL Basophils # (0-0.2) k/uL NRBC/100 WBC Diff (0.00-0.01) X 10*3/uL Hypochromasia Poikilocytosis Anisocytosis PT (10.0-12.5) sec INR (<1.2) APTT (22.0-30.0) sec Sodium (137-145) mmol/L Potassium (3.5-5.1) mmol/L Chloride (98-107) mmol/L Carbon Dioxide (22-30) mmol/L Anion Gap mmol/L BUN (7-17) mg/dL Creatinine (0.52-1.04) mg/dL Est GFR (CKD-EPI) (>=60) Est GFR (CKD-EPI)AfAm (>60 ml/min/1.73 sqM) Est GFR (CKD-EPI)NonAf (>60 ml/min/1.73 sqM) BUN/Creatinine Ratio (12.00-20.00) Ratio Glucose (74-99) mg/dL POC Glucose (mg/dL) (70-110) mg/dL POC Glu Medical Care Administrator ID Estimated Ave Glu mg/dL mg/dL Hemoglobin A1c (<=6.0) % Plasma Lactic Acid Dev (0.7-2.0) mmol/L Calcium (8.4-10.2) mg/dL Iron (50-170) UG/DL TIBC (228-460) UG/DL % Saturation (12.00-45.00) Transferrin (204.0-354.0) mg/dL Ferritin (10.0-291.0) ng/mL Total Bilirubin (0.2-1.3) mg/dL AST (14-36) U/L ALT (4-34) U/L Alkaline Phosphatase (38-126) U/L Troponin I (0.000-0.034) ng/mL C-Reactive Protein (<1.0) mg/dL Total Protein (6.3-8.2) g/dL Albumin (3.5-5.0) g/dL Vitamin B12 (200.0-944.0) pg/mL Folate 7.90 (4.40-31.00) ng/mL Procalcitonin 0.06 (0.02-0.09) ng/mL Urine Color Yellow Urine Appearance Turbid H (Clear) Urine pH 6.0 (5.0-8.0) Ur Specific Marceline 1.018 (1.001-1.035) Urine Protein 2+ H (Negative) Urine Glucose (UA) Negative (Negative) Urine Ketones Negative (Negative) Urine Blood Large H (Negative) Urine Nitrite Negative (Negative) Urine Bilirubin Negative (Negative) Urine Urobilinogen <2.0 (<2.0) mg/dL Ur Leukocyte Esterase Large H (Negative) Urine RBC >182 H (0-5) /hpf Urine WBC >182 H (0-5) /hpf Urine WBC Clumps Many H (None) /hpf Ur Squamous Epith Cells 1 (0-4) /hpf Hyaline Casts 11 H (0-2) /lpf Stool Occult Blood (Negative) Blood Type Blood Type Recheck Bld Type Recheck Status Antibody Screen Spec Expiration Date 05/15/23 05/15/23 05/15/23 Range/Units 14:37 14:37 21:03 WBC 6.7 (3.8-10.6) k/uL RBC 3.30 L (3.80-5.40) m/uL Hgb 9.1 L (11.4-16.0) gm/dL Hct 30.8 L (34.0-46.0) % MCV 93.3 D (80.0-100.0) fL MCH 27.7 (25.0-35.0) pg MCHC 29.7 L (31.0-37.0) g/dL RDW 17.3 H (11.5-15.5) % Plt Count 225 (150-450) k/uL MPV 7.6 Immature Gran % (Auto) % Absolute Nucleated RBC % Neutrophils % % Lymphocytes % % Monocytes % % Eosinophils % % Basophils % % Immature Gran # (0.00-0.04) X 10*3/uL Neutrophils # (1.3-7.7) k/uL Lymphocytes # (1.0-4.8) k/uL Monocytes # (0-1.0) k/uL Eosinophils # (0-0.7) k/uL Basophils # (0-0.2) k/uL NRBC/100 WBC Diff (0.00-0.01) X 10*3/uL Hypochromasia Marked Poikilocytosis Slight Anisocytosis Slight PT (10.0-12.5) sec INR (<1.2) APTT (22.0-30.0) sec Sodium (137-145) mmol/L Potassium (3.5-5.1) mmol/L Chloride (98-107) mmol/L Carbon Dioxide (22-30) mmol/L Anion Gap mmol/L BUN (7-17) mg/dL Creatinine (0.52-1.04) mg/dL Est GFR (CKD-EPI) (>=60) Est GFR (CKD-EPI)AfAm (>60 ml/min/1.73 sqM) Est GFR (CKD-EPI)NonAf (>60 ml/min/1.73 sqM) BUN/Creatinine Ratio (12.00-20.00) Ratio Glucose (74-99) mg/dL POC Glucose (mg/dL) 140 H (70-110) mg/dL POC Glu [employer] ID René [address] Glu mg/dL mg/dL Hemoglobin A1c (<=6.0) % Plasma Lactic Acid Dev (0.7-2.0) mmol/L Calcium (8.4-10.2) mg/dL Iron (50-170) UG/DL TIBC (228-460) UG/DL % Saturation (12.00-45.00) Transferrin (204.0-354.0) mg/dL Ferritin (10.0-291.0) ng/mL Total Bilirubin (0.2-1.3) mg/dL AST (14-36) U/L ALT (4-34) U/L Alkaline Phosphatase (38-126) U/L Troponin I 0.795 H* (0.000-0.034) ng/mL C-Reactive Protein (<1.0) mg/dL Total Protein (6.3-8.2) g/dL Albumin (3.5-5.0) g/dL Vitamin B12 (200.0-944.0) pg/mL Folate (4.40-31.00) ng/mL Procalcitonin (0.02-0.09) ng/mL Urine Color Urine Appearance (Clear) Urine pH (5.0-8.0) Ur Specific Marceline (1.001-1.035) Urine Protein (Negative) Urine Glucose (UA) (Negative) Urine Ketones (Negative) Urine Blood (Negative) Urine Nitrite (Negative) Urine Bilirubin (Negative) Urine Urobilinogen (<2.0) mg/dL Ur Leukocyte Esterase (Negative) Urine RBC (0-5) /hpf Urine WBC (0-5) /hpf Urine WBC Clumps (None) /hpf Ur Squamous Epith Cells (0-4) /hpf Hyaline Casts (0-2) /lpf Stool Occult Blood (Negative) Blood Type Blood Type Recheck Bld Type Recheck Status Antibody Screen Spec Expiration Date 05/16/23 05/16/23 05/16/23 Range/Units 05:42 06:13 06:13 WBC 6.33 (3.8-10.6) k/uL RBC 2.80 L (3.80-5.40) m/uL Hgb 7.4 L (11.4-16.0) gm/dL Hct 25.7 L (34.0-46.0) % MCV 91.8 (80.0-100.0) fL MCH 26.4 L (25.0-35.0) pg MCHC 28.8 L (31.0-37.0) g/dL RDW 17.2 H (11.5-15.5) % Plt Count 208 (150-450) k/uL MPV 9.3 L Immature Gran % (Auto) 0.80 % Absolute Nucleated RBC 0 % Neutrophils % 60.7 % Lymphocytes % 23.5 % Monocytes % 8.8 % Eosinophils % 5.7 % Basophils % 0.5 % Immature Gran # 0.05 H (0.00-0.04) X 10*3/uL Neutrophils # 3.84 (1.3-7.7) k/uL Lymphocytes # 1.49 (1.0-4.8) k/uL Monocytes # 0.56 (0-1.0) k/uL Eosinophils # 0.36 H (0-0.7) k/uL Basophils # 0.03 (0-0.2) k/uL NRBC/100 WBC Diff 0 (0.00-0.01) X 10*3/uL Hypochromasia Poikilocytosis Anisocytosis PT (10.0-12.5) sec INR (<1.2) APTT (22.0-30.0) sec Sodium (137-145) mmol/L Potassium (3.5-5.1) mmol/L Chloride (98-107) mmol/L Carbon Dioxide (22-30) mmol/L Anion Gap mmol/L BUN (7-17) mg/dL Creatinine (0.52-1.04) mg/dL Est GFR (CKD-EPI) (>=60) Est GFR (CKD-EPI)AfAm (>60 ml/min/1.73 sqM) Est GFR (CKD-EPI)NonAf (>60 ml/min/1.73 sqM) BUN/Creatinine Ratio (12.00-20.00) Ratio Glucose (74-99) mg/dL POC Glucose (mg/dL) 143 H (70-110) mg/dL POC Glu Medical Care Administrator ID René Allan [address] Glu mg/dL 140 mg/dL Hemoglobin A1c 6.5 H (<=6.0) % Plasma Lactic Acid Dev (0.7-2.0) mmol/L Calcium (8.4-10.2) mg/dL Iron (50-170) UG/DL TIBC (228-460) UG/DL % Saturation (12.00-45.00) Transferrin (204.0-354.0) mg/dL Ferritin (10.0-291.0) ng/mL Total Bilirubin (0.2-1.3) mg/dL AST (14-36) U/L ALT (4-34) U/L Alkaline Phosphatase (38-126) U/L Troponin I (0.000-0.034) ng/mL C-Reactive Protein (<1.0) mg/dL Total Protein (6.3-8.2) g/dL Albumin (3.5-5.0) g/dL Vitamin B12 (200.0-944.0) pg/mL Folate (4.40-31.00) ng/mL Procalcitonin (0.02-0.09) ng/mL Urine Color Urine Appearance (Clear) Urine pH (5.0-8.0) Ur Specific Marceline (1.001-1.035) Urine Protein (Negative) Urine Glucose (UA) (Negative) Urine Ketones (Negative) Urine Blood (Negative) Urine Nitrite (Negative) Urine Bilirubin (Negative) Urine Urobilinogen (<2.0) mg/dL Ur Leukocyte Esterase (Negative) Urine RBC (0-5) /hpf Urine WBC (0-5) /hpf Urine WBC Clumps (None) /hpf Ur Squamous Epith Cells (0-4) /hpf Hyaline Casts (0-2) /lpf Stool Occult Blood (Negative) Blood Type Blood Type Recheck Bld Type Recheck Status Antibody Screen Spec Expiration Date 05/16/23 Range/Units 06:13 WBC (3.8-10.6) k/uL RBC (3.80-5.40) m/uL Hgb (11.4-16.0) gm/dL Hct (34.0-46.0) % MCV (80.0-100.0) fL MCH (25.0-35.0) pg MCHC (31.0-37.0) g/dL RDW (11.5-15.5) % Plt Count (150-450) k/uL MPV Immature Gran % (Auto) % Absolute Nucleated RBC % Neutrophils % % Lymphocytes % % Monocytes % % Eosinophils % % Basophils % % Immature Gran # (0.00-0.04) X 10*3/uL Neutrophils # (1.3-7.7) k/uL Lymphocytes # (1.0-4.8) k/uL Monocytes # (0-1.0) k/uL Eosinophils # (0-0.7) k/uL Basophils # (0-0.2) k/uL NRBC/100 WBC Diff (0.00-0.01) X 10*3/uL Hypochromasia Poikilocytosis Anisocytosis PT (10.0-12.5) sec INR (<1.2) APTT (22.0-30.0) sec Sodium 139 (137-145) mmol/L Potassium 4.2 (3.5-5.1) mmol/L Chloride 96 (98-107) mmol/L Carbon Dioxide 35.6 H (22-30) mmol/L Anion Gap 7.40 mmol/L BUN 20.4 (7-17) mg/dL Creatinine 1.1 (0.52-1.04) mg/dL Est GFR (CKD-EPI) 55 L (>=60) Est GFR (CKD-EPI)AfAm (>60 ml/min/1.73 sqM) Est GFR (CKD-EPI)NonAf (>60 ml/min/1.73 sqM) BUN/Creatinine Ratio 18.55 (12.00-20.00) Ratio Glucose 137 H (74-99) mg/dL POC Glucose (mg/dL) (70-110) mg/dL POC Glu Medical Care Administrator ID Estimated Ave Glu mg/dL mg/dL Hemoglobin A1c (<=6.0) % Plasma Lactic Acid Dev (0.7-2.0) mmol/L Calcium 8.3 L (8.4-10.2) mg/dL Iron (50-170) UG/DL TIBC (228-460) UG/DL % Saturation (12.00-45.00) Transferrin (204.0-354.0) mg/dL Ferritin (10.0-291.0) ng/mL Total Bilirubin (0.2-1.3) mg/dL AST (14-36) U/L ALT (4-34) U/L Alkaline Phosphatase (38-126) U/L Troponin I (0.000-0.034) ng/mL C-Reactive Protein (<1.0) mg/dL Total Protein (6.3-8.2) g/dL Albumin (3.5-5.0) g/dL Vitamin B12 (200.0-944.0) pg/mL Folate (4.40-31.00) ng/mL Procalcitonin (0.02-0.09) ng/mL Urine Color Urine Appearance (Clear) Urine pH (5.0-8.0) Ur Specific Marceline (1.001-1.035) Urine Protein (Negative) Urine Glucose (UA) (Negative) Urine Ketones (Negative) Urine Blood (Negative) Urine Nitrite (Negative) Urine Bilirubin (Negative) Urine Urobilinogen (<2.0) mg/dL Ur Leukocyte Esterase (Negative) Urine RBC (0-5) /hpf Urine WBC (0-5) /hpf Urine WBC Clumps (None) /hpf Ur Squamous Epith Cells (0-4) /hpf Hyaline Casts (0-2) /lpf Stool Occult Blood (Negative) Blood Type Blood Type Recheck Bld Type Recheck Status Antibody Screen Spec Expiration Date Disposition Clinical Impression: Chronic anemia, Elevated troponin Disposition: ADMITTED IP TO THIS [facility] Condition: Stable Is patient prescribed a controlled substance at d/c from ED?: No Time of Disposition: 07:07 Decision to Admit Reason: Admit from EC Decision Date: 05/15/23 Decision Time: 07:08
[2023-05-15 05:17] LABS: Anisocytosis Slight; Basophils % (A) 1 %; Eosinophils # (A) 0.5 k/uL (0-0.7); Eosinophils % (A) 9 %; HCT 26.8 % (34.0-46.0); Hypochromasia Marked; Lymphocytes # (A) 1.6 k/uL (1.0-4.8); Lymphocytes % (A) 27 %; MCH 26.2 pg (25.0-35.0); MCHC 29.8 g/dL (31.0-37.0); MCV 87.8 fL (80.0-100.0); Mean Platelet Volume 7.7; Monocytes # (A) 0.3 k/uL (0-1.0); Monocytes % (A) 5 %; Neutrophils # (A) 3.4 k/uL (1.3-7.7); Neutrophils % (A) 56 %; Platelet Count 229 k/uL (150-450); Poikilocytosis Slight; RBC 3.05 m/uL (3.80-5.40); RDW 17.4 % (11.5-15.5); WBC 6.1 k/uL (3.8-10.6)
[2023-05-15 05:32] LABS: INR 1.2 (<1.2); Partial Thromboplastin Time 26.9 sec (22.0-30.0); Prothrombin Time 12.5 sec (10.0-12.5)
[2023-05-15 05:38] LABS: ALT 12 U/L (4-34); AST 25 U/L (14-36); African American GFR (CKD) 79 (>60 ml/min/1.73 sqM); Albumin 2.9 g/dL (3.5-5.0); Alkaline Phosphatase 127 U/L (38-126); Anion Gap 3 mmol/L; Blood Urea Nitrogen 21 mg/dL (7-17); Calcium 8.1 mg/dL (8.4-10.2); Chloride 96 mmol/L (98-107); Glucose 110 mg/dL (74-99); Non-African American GFR(CKD) 69 (>60 ml/min/1.73 sqM); Potassium 4.3 mmol/L (3.5-5.1); Sodium 139 mmol/L (137-145); Total Bilirubin 0.5 mg/dL (0.2-1.3); Total Protein 5.5 g/dL (6.3-8.2)
[2023-05-15 05:44] LABS: Carbon Dioxide 40 mmol/L (22-30)
[2023-05-15] MEDS ORDERED: NALOXONE 0.4 MG/ML 1 ML VIAL IV PRN (07:08)
--- NOTE | 2023-05-15 10:02 | P.CRDCN ---
History of Present Illness History of present illness: HISTORY OF PRESENT ILLNESS: This is a 67-year-old female with a past medical history significant for coronary artery disease, ischemic cardiomyopathy, diabetes, atrial fibrillation, hyperlipidemia, and morbid obesity. Patient follows in the office with Dr. Taylor. We have been asked to see the patient in consultation for elevated troponins. Patient examined at the bedside in the emergency room. Patient states that she saw Dr. Claudia MYLES in the office yesterday for routine visit. She states that she had no complaints at that time and was feeling well. Transferred back to her facility where she had routine lab work drawn. Patient had a CBC completed which revealed a hemoglobin of 3.5. She was brought to the hospital for further evaluation. Repeat hemoglobin performed here revealed hemoglobin of 8.0. The patient denies any chest pain or pressure. She denies any shortness of breath. She is maintained on Xarelto on an outpatient basis. DIAGNOSTICS: - EKG reveals sinus mechanism with no signs of acute ischemia. Nonspecific ST-T wave changes. - Laboratory data: WBC 6.1. Hemoglobin 8.0. Platelet count 229. Sodium 139. Potassium 4.3. BUN 21. Creatinine 0.87. Lactic acid 1.1. Troponin 2.030. Stool for occult blood positive. - Current home cardiac medications include Xarelto 15 mg at night, metoprolol succinate 50 mg daily, Lipitor 80 mg at night, Imdur 30 mg daily, aspirin 81 mg daily. - Most recent echocardiogram obtained in December 2022 revealed ejection fraction 45 to 50%, moderate pulmonary hypertension, mild MR, mild TR - Cardiac catheterization history: August 2017 with unsuccessful stenting of both LAD and RCA. Bypass surgery was recommended. REVIEW OF SYSTEMS: At the time of my exam: CONSTITUTIONAL: Denies fever or chills. HEENT: Denies blurred vision, vision changes, or eye pain. Denies hemoptysis CARDIOVASCULAR: Denies chest pain. Denies orthopnea. Denies PND. Denies palpitations RESPIRATORY: Denies shortness of breath. GASTROINTESTINAL: Denies abdominal pain. Denies nausea or vomiting. HEMATOLOGIC: Denies bleeding disorders. GENITOURINARY: Denies any blood in urine. SKIN: Denies pruitis. Denies rash. PHYSICAL EXAM: VITAL SIGNS: Reviewed. GENERAL: Well-developed in no acute distress. HEENT: Head is normocephalic. Pupils are equal, round. Sclerae anicteric. Mucous membranes of the mouth are moist. Neck supple. No JVD or thyromegaly LUNGS: Respirations even and unlabored. Lungs essentially clear to auscultation bilaterally. HEART: Regular rate and rhythm. S1 and S2 heard. ABDOMEN: Soft. Nondistended. Nontender. EXTREMITIES: Normal range of motion. No clubbing or cyanosis. Peripheral pulses intact. Trace bilateral lower extremity edema NEUROLOGIC: Awake and alert. Oriented x 3. ASSESSMENT: Anemia, appears stable with hemoglobin in the 8's Hemoglobin 3.5, Suspect lab error, repeat 8.0 with no intervention, drawn from PICC line Non-STEMI Coronary artery disease with previous stenting Status post unsuccessful stenting of LAD and RCA, 2017 Mild ischemic cardiomyopathy, EF 45% Paroxysmal atrial fibrillation, on Xarelto outpatient Hyperlipidemia Diabetes Morbid obesity History of EGD and colonoscopy, 2022 PLAN: Obtain 2D echo to assess cardiac structure and function Resume home cardiac medications Discontinue aspirin Patient's blood pressures on the lower side with a systolic around [id number]. Con tinue to monitor to see if patient would be able to tolerate ESTELA/ARB. Patient with 1 abnormal troponin of 2.030. No plans for cardiac catheterization or stress testing at this time. We will continue with conservative management. Trend troponins Okay to resume Xarelto from a cardiac standpoint as hemoglobin appears to be fairly stable. However we will defer resuming anticoagulation to [facility] to see if any further workup of anemia is necessary. Repeat hemoglobin this morning is pending. No further inpatient recommendations from a cardiac standpoint Patient may be discharged this afternoon back to [facility] per Dr. Fry Further recommendations pending patient course Nurse practitioner note has been reviewed by physician. Signing provider agrees with the documented findings, assessment, and plan of care documented by APPRENTICE [employer] as a scribe. Past Medical History Past Medical History: Atrial Fibrillation, Asthma, Coronary Artery Disease (CAD), Heart Failure, CVA/TIA, Diabetes Mellitus, Deep Vein Thrombosis (DVT), Fibromyalgia, Hyperlipidemia, Hypertension, Myocardial Infarction (SC), Osteoarthritis (OA), Pulmonary Embolus (PE), Skin Disorder, Thyroid Disorder Additional Past Medical History / Comment(s): frequent uti's,kidney stones,HEART MURMUR,cardiomyopathy, CHRONIC CONSTIPATION, ECZEMA,SINUS HEADACHES, HX ANEMIA, gout. stage III kidney disease stage 3,lower back pain. 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 CATARACT BLACK. WITH IMPLANTS. HEART CATH X 3 TOTAL 3 STENTS, lithotripsy, kidney stent Past Anesthesia/Blood Transfusion Reactions: Motion Sickness Additional Past Anesthesia/Blood Transfusion Reaction / Comment(s): no hx blood transfusion Date of Last Stent Placement:: UNKNOWN Past Psychological History: Depression Additional Psychological History / Comment(s): Pt resides at [facility] on [facility], "I have recently had hallucinations, not like where I don't know reality, but like a dream state" Smoking Status: Former smoker Past Alcohol Use History: None Reported Additional Past Alcohol Use History / Comment(s): SMOKED AGE 15 TO AGE 21 -WHEN QUIT WAS SMOKING 1/2 PPD Past Drug Use History: None Reported - Past Family History Father Additional Family Medical History / Comment(s): "HARDENEING OF THE ARTERIES AT AGE 41. SMOKED AND DRANK ETOH Mother Family Medical History: Cancer Additional Family Medical History / Comment(s): "cyst that ruptured between bowel and bladder" Medications and Allergies Home Medications Medication Instructions Recorded Confirmed Type Montelukast [Singulair] 10 mg PO HS@209908/28/17 05/15/23 History Acetaminophen Tab [Tylenol] 1,000 mg PO Q6H PRN 05/22/21 05/15/23 History Levothyroxine Sodium [Synthroid] 125 mcg PO DAILY@0605/22/21 05/15/23 History Loratadine [Claritin] 10 mg PO DAILY PRN 05/22/21 05/15/23 History methocarbamoL [Robaxin] 500 mg PO TID PRN 05/22/21 05/15/23 History Isosorbide Mononitrate ER [Imdur] 30 mg PO DAILY@89912/04/21 05/15/23 History Nitroglycerin Sl Tabs [Nitrostat] 0.4 mg SL Q5M PRN 12/04/21 05/15/23 History DULoxetine HCL [Cymbalta] 30 mg PO BID@899,209909/27/22 05/15/23 History Omeprazole [PriLOSEC] 20 mg PO DAILY@59909/27/22 05/15/23 History allopurinoL 100 mg PO DAILY@89909/27/22 05/15/23 History busPIRone HCl [Buspar] 10 mg PO BID@899,209909/27/22 05/15/23 History Docusate [Colace] 100 mg PO BID PRN cap 10/01/22 05/15/23 Rx Melatonin 5 mg PO HS@209911/19/22 05/15/23 History Sennosides/Docusate Sodium [Senna 2 tab PO HS@209911/19/22 05/15/23 History Plus 8.6-50 mg Softgel] Aspirin 81 mg PO DAILY@89912/27/22 05/15/23 History Atorvastatin [Lipitor] 80 mg PO HS@209912/27/22 05/15/23 History Cyanocobalamin [Vitamin B-12] 1,000 mcg PO DAILY@89912/27/22 05/15/23 History Metoprolol Succinate (ER) [Toprol 50 mg PO DAILY@89912/27/22 05/15/23 History XL] Sennosides [Senokot] 8.6 mg PO DAILY PRN tab 01/08/23 05/15/23 Rx polyethylene glycoL 3350 [Miralax] 17 gm PO DAILY PRN packet 01/08/23 05/15/23 Rx Ascorbic Acid [Vitamin C] 500 mg PO DAILY@89903/05/23 05/15/23 History Insulin Glargine,Hum.rec.anlog 15 units SQ HS@209903/05/23 05/15/23 History [Lantus Solostar Pen] 0.9 % Sodium Chloride [Sodium 10 ml IV DAILY@1800 05/15/23 05/15/23 History Chloride Flush] Benzocaine/Menthol Lozeng [Cepacol 1 lozenge MUCOUS MEM Q4HR PRN 05/15/23 05/15/23 History lozenge] Ertapenem [INVanz] 1 gm IVPB DAILY@1800 05/15/23 05/15/23 History Gabapentin [Neurontin] 300 mg PO HS@2100 05/15/23 05/15/23 History Guaifenesin/Dextromethorphan 10 ml PO Q4H PRN 05/15/23 05/15/23 History [Guaifenesin-Dm 100-10 mg/5 ml] Insulin Lispro [humaLOG Kwikpen] See Protocol SQ QID@08,12,17,21 05/15/23 05/15/23 History L.acidoph,Paracasei, B.lactis 1 cap PO DAILY@0900 05/15/23 05/15/23 History [Probiotic] Potassium Citrate [Urocit-K] 30 meq PO BID@0900,2100 05/15/23 05/15/23 History Rivaroxaban [Xarelto] 15 mg PO DAILY@1700 05/15/23 05/15/23 History Allergies Allergy/AdvReac Type Severity Reaction Status Date / Time grass pollen Allergy Sinus Verified 05/15/23 08:25 latex Allergy Rash/Hives Verified 05/15/23 08:25 Milk Containing Products Allergy Unknown Verified 05/15/23 08:25 (Dairy) [Dairy] mold Allergy Sinus Verified 05/15/23 08:25 pollen extracts Allergy Sinus Verified 05/15/23 08:25 tree and shrub pollen Allergy Sinus Verified 05/15/23 08:25 Tetracyclines AdvReac YEAST Verified 05/15/23 08:25 INFECTION- PREFERS NOT TO TAKE tramadol AdvReac Unknown Verified 05/15/23 08:25 ENVIRONMENTAL ALLERGIES Allergy SINUS Uncoded 05/15/23 08:25 SYMPTOMS-GRASS TREES,DUST,POLLENS,MOLD Physical Exam Vitals: Vital Signs Temp Pulse Resp BP Pulse Ox 05/15/23 07:27 98.7 F 64 18 110/62 97 05/15/23 05:42 63 18 100/74 100 05/15/23 05:00 24 05/15/23 04:42 66 17 113/53 99 05/15/23 04:37 97.6 F 69 20 128/88 99 Intake and Output 05/14/23 05/15/23 05/15/23 22:59 06:59 14:59 Other: Weight 160.572 kg Results 05/15/23 05:08 05/15/23 05:08 Cardiac Enzymes 05/15/23 05/15/23 Range/Units 05:08 05:08 AST 25 (14-36) U/L Troponin I 2.030 H* (0.000-0.034) ng/mL Coagulation 05/15/23 Range/Units 05:08 PT 12.5 (10.0-12.5) sec APTT 26.9 (22.0-30.0) sec CBC 05/15/23 Range/Units 05:08 WBC 6.1 (3.8-10.6) k/uL RBC 3.05 L (3.80-5.40) m/uL Hgb 8.0 L D (11.4-16.0) gm/dL Hct 26.8 L (34.0-46.0) % Plt Count 229 (150-450) k/uL Comprehensive Metabolic Panel 05/15/23 Range/Units 05:08 Sodium 139 (137-145) mmol/L Potassium 4.3 (3.5-5.1) mmol/L Chloride 96 L (98-107) mmol/L Carbon Dioxide 40 H (22-30) mmol/L BUN 21 H (7-17) mg/dL Creatinine 0.87 (0.52-1.04) mg/dL Glucose 110 H (74-99) mg/dL Calcium 8.1 L (8.4-10.2) mg/dL AST 25 (14-36) U/L ALT 12 (4-34) U/L Alkaline Phosphatase 127 H (38-126) U/L Total Protein 5.5 L (6.3-8.2) g/dL Albumin 2.9 L (3.5-5.0) g/dL Current Medications Generic Name Dose Route Start Last Admin Trade Name Freq PRN Reason Stop Dose Admin Naloxone HCl 0.2 mg 05/15/23 07:08 Naloxone 0.4 Mg/Ml 1 Ml Vial IV Q2M PRN Opioid Reversal Intake and Output 05/14/23 05/15/23 05/15/23 22:59 06:59 14:59 Other: Weight 160.572 kg 05/15/23 05:08 05/15/23 05:08
[2023-05-15] MEDS ORDERED: IOPAMIDOL CONTRAST (ORAL USE) VIAL PO PRN (11:01)
--- NOTE | 2023-05-15 11:08 | P.HPIM ---
History of Present Illness This is a pleasant 66 years old female with multiple medical problems as below Atrial Fibrillation, Asthma, Coronary Artery Disease, Heart Failure, CVA/TIA, Diabetes Mellitus, Deep Vein Thrombosis , Fibromyalgia, Hyperlipidemia, Hyp ertension, Osteoarthritis (OA), Pulmonary Embolus (PE), hypothyroidism, constipation, chronic kidney disease stage III, neuropathy, depression Patient's comes from [facility], she is bedbound for 3 months as she states. She was sent because of low hemoglobin at 3.5. Patient states that she has bleeding all the time for the last 7 years, she claims she bleeds every day, she thinks that comes from her vaginal, but she is not sure, she says each time she P's she has bleeding but she wears diapers so she is not sure. She states that yesterday she has more bleeding so they got a repeat hemoglobin at night 10-11 PM, results came back 3:00 in the morning as 3.5 so they sent her to the hospital. Repeat hemoglobin in the hospital show hemoglobin of 8.0. She is complaining also from mild left upper quadrant abdominal pain about 5/10, nonradiating, not a specific, no relieving or precipitating factors No vomiting or diarrhea. On reviewing the records she had a normal EGD and colonoscopy with bed p reparation on 12/27/2022, she has another negative colonoscopy with bouts preparation on 03/06/23 Also patient has right upper extremity PICC line, patient states because she has dysuria and it was placed at [facility] (there is a date on the PICC line stating it is from 05/05/23) , currently patient still complaining of from dysuria Patient currently vitals are stable Hemoglobin is stable at 8, PCO2 is 40, rest of BMP, CBC, INR and liver enzymes were unremarkable Troponin is 2.0 and cleared by mult au matic operator Lactic acid 1.1 She has positive occult blood in stool Review of Systems I Review of systems CONSTITUTIONAL: No fever, no malaise, no fatigue. HEENT: No recent visual problems or hearing problems. Denied any sore throat. CARDIOVASCULAR: No orthopnea, PND, no palpitations, no syncope. PULMONARY: No shortness of breath, no cough, no hemoptysis. GASTROINTESTINAL: No diarrhea, no nausea, no vomiting,. Normoactive bowel sounds. NEUROLOGICAL: No headaches, no weakness, no numbness. HEMATOLOGICAL: Denies any bleeding or petechiae. GENITOURINARY: Denies any burning micturition, frequency, or urgency. MUSCULOSKELETAL/RHEUMATOLOGICAL: Denies any joint pain, swelling, or any muscle pain. ENDOCRINE: Denies any polyuria or polydipsia. Past Medical History Past Medical History: Atrial Fibrillation, Asthma, Coronary Artery Disease (CAD), Heart Failure, CVA/TIA, Diabetes Mellitus, Deep Vein Thrombosis (DVT), Fibromyalgia, Hyperlipidemia, Hypertension, Myocardial Infarction (SD), Ost eoarthritis (OA), Pulmonary Embolus (PE), Skin Disorder, Thyroid Disorder Additional Past Medical History / Comment(s): frequent uti's,kidney stones,HEART MURMUR,cardiomyopathy, CHRONIC CONSTIPATION, ECZEMA,SINUS HEADACHES, HX ANEMIA, gout. stage III kidney disease stage 3,lower back pain. 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.FEEt, weakness LT SIDE,stg three kidney disease,eye disorder fuchs corneal dystrophy., COVID Last Myocardial Infarction Date:: 2022 History of Any Multi-Drug Resistant Organisms: ESBL, MRSA Date of last positivie culture/infection: 01/02/22 MRSA;02/28/18-ESBL MDRO Source:: Urine-MRSA; Urine ESBL Past Surgical History: Appendectomy, Cardiac Ablation, Cholecystectomy, Heart Catheterization, Heart Catheterization With Stent, Hysterectomy Additional Past Surgical History / Comment(s): PARTIAL HYSTERECTOMY 03/18/14 @ [facility]. CATARACT BLACK. WITH IMPLANTS. HEART CATH X 3 TOTAL 3 STENTS, lithotripsy, kidney stent Past Anesthesia/Blood Transfusion Reactions: Motion Sickness Additional Past Anesthesia/Blood Transfusion Reaction / Comment(s): no hx blood transfusion Date of Last Stent Placement:: UNKNOWN Past Psychological History: Depression Additional Psychological History / Comment(s): Pt resides at [facility] on [facility], "I have recently had hallucinations, not like where I don't know reality, but like a dream state" Smoking Status: Former smoker Past Alcohol Use History: None Reported Additional Past Alcohol Use History / Comment(s): SMOKED AGE 15 TO AGE 21 -WHEN QUIT WAS SMOKING 1/2 PPD Past Drug Use History: None Reported - Past Family History Father Additional Family Medical History / Comment(s): "HARDENEING OF THE ARTERIES AT AGE 41. SMOKED AND DRANK ETOH Mother Family Medical History: Cancer Additional Family Medical History / Comment(s): "cyst that ruptured between bowel and bladder" Medications and Allergies Home Medications Medication Instructions Recorded Confirmed Type Montelukast [Singulair] 10 mg PO HS@209908/28/17 05/15/23 History Acetaminophen Tab [Tylenol] 1,000 mg PO Q6H PRN 05/22/21 05/15/23 History Levothyroxine Sodium [Synthroid] 125 mcg PO DAILY@59905/22/21 05/15/23 History Loratadine [Claritin] 10 mg PO DAILY PRN 05/22/21 05/15/23 History methocarbamoL [Robaxin] 500 mg PO TID PRN 05/22/21 05/15/23 History Isosorbide Mononitrate ER [Imdur] 30 mg PO DAILY@89912/04/21 05/15/23 History Nitroglycerin Sl Tabs [Nitrostat] 0.4 mg SL Q5M PRN 12/04/21 05/15/23 History DULoxetine HCL [Cymbalta] 30 mg PO BID@899,209909/27/22 05/15/23 History Omeprazole [PriLOSEC] 20 mg PO DAILY@59909/27/22 05/15/23 History allopurinoL 100 mg PO DAILY@89909/27/22 05/15/23 History busPIRone HCl [Buspar] 10 mg PO BID@899,209909/27/22 05/15/23 History Docusate [Colace] 100 mg PO BID PRN cap 10/01/22 05/15/23 Rx Melatonin 5 mg PO HS@209911/19/22 05/15/23 History Sennosides/Docusate Sodium [Senna 2 tab PO HS@209911/19/22 05/15/23 History Plus 8.6-50 mg Softgel] Aspirin 81 mg PO DAILY@89912/27/22 05/15/23 History Atorvastatin [Lipitor] 80 mg PO HS@209912/27/22 05/15/23 History Cyanocobalamin [Vitamin B-12] 1,000 mcg PO DAILY@89912/27/22 05/15/23 History Metoprolol Succinate (ER) [Toprol 50 mg PO DAILY@89912/27/22 05/15/23 History XL] Sennosides [Senokot] 8.6 mg PO DAILY PRN tab 01/08/23 05/15/23 Rx polyethylene glycoL 3350 [Miralax] 17 gm PO DAILY PRN packet 01/08/23 05/15/23 Rx Ascorbic Acid [Vitamin C] 500 mg PO DAILY@0900 03/05/23 05/15/23 History Insulin Glargine,Hum.rec.anlog 15 units SQ HS@209903/05/23 05/15/23 History [Lantus Solostar Pen] 0.9 % Sodium Chloride [Sodium 10 ml IV DAILY@1800 05/15/23 05/15/23 History Chloride Flush] Benzocaine/Menthol Lozeng [Cepacol 1 lozenge MUCOUS MEM Q4HR PRN 05/15/23 05/15/23 History lozenge] Ertapenem [INVanz] 1 gm IVPB DAILY@1800 05/15/23 05/15/23 History Gabapentin [Neurontin] 300 mg PO HS@209905/15/23 05/15/23 History Guaifenesin/Dextromethorphan 10 ml PO Q4H PRN 05/15/23 05/15/23 History [Guaifenesin-Dm 100-10 mg/5 ml] Insulin Lispro [humaLOG Kwikpen] See Protocol SQ QID@08,12,17,05/15/23 05/15/23 History L.acidoph,Paracasei, B.lactis 1 cap PO DAILY@0900 05/15/23 05/15/23 History [Probiotic] Potassium Citrate [Urocit-K] 30 meq PO BID@0900,209905/15/23 05/15/23 History Rivaroxaban [Xarelto] 15 mg PO DAILY@1700 05/15/23 05/15/23 History Allergies Allergy/AdvReac Type Severity Reaction Status Date / Time grass pollen Allergy Sinus Verified 05/15/23 08:25 latex Allergy Rash/Hives Verified 05/15/23 08:25 Milk Containing Products Allergy Unknown Verified 05/15/23 08:25 (Dairy) [Dairy] mold Allergy Sinus Verified 05/15/23 08:25 pollen extracts Allergy Sinus Verified 05/15/23 08:25 tree and shrub pollen Allergy Sinus Verified 05/15/23 08:25 Tetracyclines AdvReac YEAST Verified 05/15/23 08:25 INFECTION- PREFERS NOT TO TAKE tramadol AdvReac Unknown Verified 05/15/23 08:25 ENVIRONMENTAL ALLERGIES Allergy SINUS Uncoded 05/15/23 08:25 SYMPTOMS-GRASS TREES,DUST,POLLENS,MOLD Physical Exam Vitals: Vital Signs Temp Pulse Resp BP Pulse Ox 05/15/23 07:27 98.7 F 64 18 110/62 97 05/15/23 05:42 63 18 100/74 100 05/15/23 05:00 24 05/15/23 04:42 66 17 113/53 99 05/15/23 04:37 97.6 F 69 20 128/88 99 Intake and Output 05/14/23 05/15/23 05/15/23 22:59 06:59 14:59 Other: Weight 160.572 kg -GENERAL: The patient is alert and oriented x3, not in any acute distress. Morbidly obese, bedbound HEENT: Pupils are round and equally reacting to light. EOMI. No scleral icterus. No conjunctival pallor. Normocephalic, atraumatic. No pharyngeal erythema. No thyromegaly. CARDIOVASCULAR: S1 and S2 present. No murmurs, rubs, or gallops. PULMONARY: Chest is clear to auscultation, no wheezing , no crackles. -ABDOMEN: Soft, LUQ tenderness, no rebound tenderness mildly distended , normoactive bowel sounds. No palpable organomegaly. MUSCULOSKELETAL: No joint swelling or deformity. -EXTREMITIES: No cyanosis, clubbing, or pedal edema. Right upper extremity PICC line NEUROLOGICAL: Gross neurological examination did not reveal any focal deficits. SKIN: No rashes. no petechiae. Results CBC & Chem 7: 05/15/23 05:08 05/15/23 05:08 Labs: Abnormal Lab Results - Last 24 Hours (Table) 05/15/23 05/15/23 05/15/23 Range/Units 05:08 05:08 05:08 RBC 3.05 L (3.80-5.40) m/uL Hgb 8.0 L D (11.4-16.0) gm/dL Hct 26.8 L (34.0-46.0) % MCHC 29.8 L (31.0-37.0) g/dL RDW 17.4 H (11.5-15.5) % INR 1.2 H (<1.2) Chloride (98-107) mmol/L Carbon Dioxide (22-30) mmol/L BUN (7-17) mg/dL Glucose (74-99) mg/dL Calcium (8.4-10.2) mg/dL Alkaline Phosphatase (38-126) U/L Troponin I (0.000-0.034) ng/mL Total Protein (6.3-8.2) g/dL Albumin (3.5-5.0) g/dL Stool Occult Blood Positive H (Negative) 05/15/23 05/15/23 05/15/23 Range/Units 05:08 05:08 09:30 RBC (3.80-5.40) m/uL Hgb (11.4-16.0) gm/dL Hct (34.0-46.0) % MCHC (31.0-37.0) g/dL RDW (11.5-15.5) % INR (<1.2) Chloride 96 L (98-107) mmol/L Carbon Dioxide 40 H (22-30) mmol/L BUN 21 H (7-17) mg/dL Glucose 110 H (74-99) mg/dL Calcium 8.1 L (8.4-10.2) mg/dL Alkaline Phosphatase 127 H (38-126) U/L Troponin I 2.030 H* 1.260 H* (0.000-0.034) ng/mL Total Protein 5.5 L (6.3-8.2) g/dL Albumin 2.9 L (3.5-5.0) g/dL Stool Occult Blood (Negative) Assessment and Plan Assessment: Anemia, 3.5 thought to be lab error, repeat hemoglobin 8.0. Monitor for Recur rent GI bleeding is suspected, urinary tract infection, recently treated with PICC line at [facility] Chronic atrial fibrillation on xarelto at home elevated troponin, cleared by mult au matic operator Patient has history of right ureter stent and stone History of asthma And COPD as per patient, currently not active issue or exacerbation Chronic hypoxic respiratory failure and 2-3 L of oxygen at home History of coronary artery disease status post stent Chronic heart failure History of CVA/TIA Diabetes mellitus Hypertension Hyperlipidemia History of osteoarthritis, with moderate to severe right neural foraminal stenosis at L5-S1 Hypothyroidism history of fibromyalgia History of DVT and pulmonary embolism Chronic kidney disease stage III Neuropathy History of depression Morbid obesity with BMI of 45.7 Plan: Monitor hemoglobin Order CT of the abdomen and pelvis with contrastReact risk of ALLERGIC reaction and nephrotoxicity is explained for the patient and she verbalized understanding and acceptance. We'll give her gentle hydration for a few hours Surgical team consult Anemia workup Check urine analysis, urine culture, blood culture Consults infectious disease team Hold xarelto till cleared by surgery Cardiology team or the cleared the patient Labs and medication were reviewed.. Continue same treatment. Continue with symptomatic treatment. Resume home medication. Monitor labs and vitals. DVT and GI prophylaxis. Further recommendations as per clinical course of the patient DVT prophylaxis: hold xarelto GI Prophylaxis: Pepcid PT/OT: Pending Prognosis is guarded
--- NOTE | 2023-05-15 11:15 | CA ---
Transthoracic Echo Report Name: Uma Oconnell Age: 67 Gender: F : 1955 Exam Date: 05/15/2023 10:12 Exam Location: [facility] Ht (in): 62 Wt (lb): 354 Ordering Physician: Jammie Arvizu Attending/Referring Phys: [id number], Nolberto Centrifugal Operator Ha Trotter RDCS Procedure CPT: Indications: LV function Cardiac Hx: Technical Quality: Fair Contrast 1: Total Dose (mL): Contrast 2: Total Dose (mL): MEASUREMENTS (Male / Female) Normal Values 2D ECHO LV Diastolic Diameter PLAX 5.5 cm 4.2 - 5.9 / 3.9 - 5.3 cm LV Systolic Diameter PLAX 4.8 cm IVS Diastolic Thickness 1.3 cm 0.6 - 1.0 / 0.6 - 0.9 cm LVPW Diastolic Thickness 1.0 cm 0.6 - 1.0 / 0.6 - 0.9 cm LV Relative Wall Thickness 0.4 Aortic Root Diameter 2.9 cm LA Systolic Diameter LX 4.0 cm 3.0 - 4.0 / 2.7 - 3.8 cm DOPPLER MR Peak Velocity 277.4 cm/s MR Peak Gradient 30.8 mmHg Mitral E Point Velocity 68.2 cm/s Mitral A Point Velocity 57.1 cm/s Mitral E to A Ratio 1.2 MV Deceleration Time 224.7 ms TR Peak Velocity 275.5 cm/s TR Peak Gradient 30.4 mmHg PV Peak Velocity 67.3 cm/s PV Peak Gradient 1.8 mmHg FINDINGS Left Ventricle Mildly increased septal wall thickness. Left ventricular ejection fraction is estimated at 50-55 %.left ventricular cavity size normal. Right Ventricle Right ventricle not well visualized. Right Atrium Right atrium not well visualized. Left Atrium Mildly increased left atrial diameter. Mitral Valve Mild mitral regurgitation.structurally normal mitral valve. Aortic Valve Aortic valve not well visualized. Tricuspid Valve Mild to moderate tricuspid regurgitation.structurally normal tricuspid valve. Pulmonic Valve Pulmonic valve not well visualized. Pericardium Echo free space anterior to the right ventricle likely represents a fat pad. Aorta Normal size aortic root and proximal ascending aorta. CONCLUSIONS 1. Left ventricle systolic function borderline normal 2. Mild mitral with mild to moderate tricuspid regurgitation Technically difficult study. Previewed by: Dr. Evaristo Mallory MD (Electronically Signed) Final Date: 15 May 2023 11:14
[2023-05-15] MEDS: SODIUM CHLORIDE 0.9% 1,000 ML IV SCH (11:48)
[2023-05-15 12:03] LABS: Appearance,Urine Turbid (Clear); Bilirubin,Urine Negative (Negative); Blood,Urine Large (Negative); Color,Urine Yellow; Glucose,Urine (UA) Negative (Negative); Hyaline Casts,Urine 11 /lpf (0-2); Ketones,Urine Negative (Negative); Leukocyte Esterase,Urine Large (Negative); Nitrite,Urine Negative (Negative); Protein,Urine 2+ (Negative); RBC,Urine >182 /hpf (0-5); Specific Gravity,Urine 1.018 (1.001-1.035); Squamous Epithelial Cell,Urine 1 /hpf (0-4); Urobilinogen,Urine <2.0 mg/dL (<2.0); WBC,Urine >182 /hpf (0-5)
--- NOTE | 2023-05-15 14:45 | CT ---
EXAMINATION TYPE: CT abdomen pelvis w con CT DLP: 3420.4 mGycm, Automated exposure control for dose reduction was used. DATE OF EXAM: 05/15/2023 1:47 PM COMPARISON: 02/21/2023. CLINICAL INDICATION:Female, 67 years old with history of RUQ tenderness and possible gi bleed; RUQ te nderness and possible gi bleed TECHNIQUE: Axial CT abdomen pelvis w con;Sagittal and coronal reformats were created on a separate w orkstation. Contrast used:100 ml mL of Isovue 300 with IV Contrast, (none if empty) Oral contrast used: with Oral Contrast (none if empty) FINDINGS: LOWER CHEST: Unremarkable ABDOMEN LIVER: Unremarkable GALLBLADDER AND BILE DUCTS: Gallbladder surgically absent. PANCREAS: Unremarkable. SPLEEN: Unremarkable. ADRENAL GLANDS: Unremarkable. KIDNEYS AND URETERS: Right ureteral stent with proximal and distal portions appropriate position. Non obstructing bilateral renal calculi measuring up to 6 mm in the left and 7 mm on the right. PELVIS BLADDER: Unremarkable. REPRODUCTIVE: Unremarkable. ABDOMEN & PELVIS STOMACH AND BOWEL: Third portion duodenal diverticulum. No evidence of bowel obstruction. High densit y stool seen throughout the colon. There is a large amount stool throughout the colon. PERITONEUM/RETROPERITONEUM: No evidence of pneumoperitoneum or free fluid. VASCULATURE: Mild atherosclerotic calcifications are present throughout the abdominal aorta and its b ranches. No evidence of aortic aneurysm. MUSCULOSKELETAL: No acute osseous abnormalities. Moderate disc degeneration changes are present throu ghout the thoracolumbar spine. Multilevel degeneration changes throughout spine. LYMPH NODES: No gross evidence for lymphadenopathy. SOFT TISSUE/ABDOMINAL WALL: Unremarkable IMPRESSION: 1. Limited exam for gastrointestinal hemorrhage given phases of contrast images. No obvious hemorrha ge identified. 2. Large amount of stool throughout the colon. 3. Right ureteral stent with proximal and distal portions are appropriate position. Moderate right p leural effusion. 4. Bilateral renal calculi. 5. Cardiomegaly.
--- NOTE | 2023-05-15 15:08 | P.GSCN ---
History of Present Illness Consult date: 05/15/23 History of present illness: CHIEF COMPLAINT: Low hemoglobin lab outpatient HISTORY OF PRESENT ILLNESS: This is a 67-year-old female who was brought into the ER due to outpatient hemoglobin of 3.4. Patient does report having blood in her stools. Last bloody stool was 2 days ago. She does report that this is chronic for her. She also reports chronic abdominal pain and reports no increase in pain. She reports nausea but no vomiting. She denies any black stools. She is on Xarelto for atrial fibrillation. Last dose was last night. Repeat hemoglobin here is 8.0 without any blood transfusions. She also was having elevated troponins evaluated by cardiology diagnosed with a non-STEMI. Her last colonoscopy was in February 2023 which did show a poor bowel prep. Prior colonoscopies also were poor bowel prep. EGD in January 2023 had shown gastritis. Surgical service has been consulted for abdominal pain and to rule out GI bleed. Patient has a history of chronic anemia. PAST MEDICAL HISTORY: Atrial Fibrillation, Asthma, Coronary Artery Disease (CAD), Heart Failure, CVA/TIA, Diabetes Mellitus, Deep Vein Thrombosis (DVT), Fibromyalgia, Hyperlipidemia, Hypertension, Myocardial Infarction ([place]), Osteoarthritis (OA), Pulmonary Embolus (PE), Skin Disorder, Thyroid Disorder, chronic kidney disease PAST SURGICAL HISTORY: Appendectomy, Cardiac Ablation, Cholecystectomy, Heart Catheterization, Heart Catheterization With Stent, Hysterectomy, coronary disease with cardiac stents MEDICATIONS: See below ALLERGIES: See below SOCIAL HISTORY: No illicit drug use. REVIEW OF SYSTEMS: CONSTITUTIONAL: Denies fever or chills. HEENT: Denies blurred vision, vision changes, or eye pain. Denies hemoptysis CARDIOVASCULAR: Denies chest pain or pressure. RESPIRATORY: No shortness of breath. GASTROINTESTINAL: See HPI for pertinent findings HEMATOLOGIC: Denies bleeding disorders. GENITOURINARY: Denies any blood in urine or increased urinary frequency. SKIN: Denies pruitis. Denies rash. PHYSICAL EXAM: VITAL SIGNS: Reviewed GENERAL: Well-developed in no acute distress. HEENT: No sclera icterus. Extraocular movements grossly intact. Moist buccal mucosa. Head is atraumatic, normocephalic. No nasal drainage. ABDOMEN: Soft. Obese. Nondistended. Tenderness with palpation in the left upper quadrant and right lower quadrant NEUROLOGIC: Alert and oriented. Cranial nerves II through XII grossly intact. LABORATORY DATA: WBC is 6.1 Hgb 8.0 platelets 229 INR 1.2 Sodium 139 potassium is 4.3 creatinine 0.87 Elevated troponins Stool for occult blood positive Positive urinalysis IMAGING: CT scan abdomen pelvis Limited exam for GI hemorrhage. No obvious hemorrhage identified. Large amount of stool throughout the colon. Right ureteral stent with proximal and distal portions appropriate position. Moderate right pleural effusion. Bilateral renal calculi. Cardiomegaly. ASSESSMENT: 1. Anemia. Hemoglobin of 3.5 outpatient may be a lab error. Hemoglobin 8.0 currently without any blood transfusion 2. Hematochezia 3. Chronic anemia 4. UTI 5. Non-ST elevated [place] seen by cardiology 6. Constipation PLAN: -Plan for colonoscopy on Friday with Dr. Early -Continue supportive care -Continue to monitor for any signs or symptoms of bleeding -Continue to monitor hemoglobin -Resume MiraLAX -Hold Xarelto Physician [employer] note has been reviewed by physician. Signing provider agrees with the documented findings, assessment, and plan of care. Past Medical History Past Medical History: Atrial Fibrillation, Asthma, Coronary Artery Disease (CAD), Heart Failure, CVA/TIA, Diabetes Mellitus, Deep Vein Thrombosis (DVT), Fibromyalgia, Hyperlipidemia, Hypertension, Myocardial Infarction ([place]), Osteoarthritis (OA), Pulmonary Embolus ([place]), Skin Disorder, Thyroid Disorder Additional Past Medical History / Comment(s): frequent uti's,kidney stones,HEART MURMUR,cardiomyopathy, CHRONIC CONSTIPATION, ECZEMA,SINUS HEADACHES, HX ANEMIA, gout. stage III kidney disease stage 3,lower back pain. 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 CATARACT BLACK. WITH IMPLANTS. HEART CATH X 3 TOTAL 3 STENTS, lithotripsy, kidney stent Past Anesthesia/Blood Transfusion Reactions: Motion Sickness Additional Past Anesthesia/Blood Transfusion Reaction / Comm: no hx blood transfusion Date of Last Stent Placement:: UNKNOWN Past Psychological History: Depression Additional Psychological History / Comment(s): Pt resides at [facility] on the [place], "I have recently had hallucinations, not like where I don't know reality, but like a dream state" Smoking Status: Former smoker Past Alcohol Use History: None Reported Additional Past Alcohol Use History / Comment(s): SMOKED AGE 15 TO AGE 21 -WHEN QUIT WAS SMOKING 1/2 PPD Past Drug Use History: None Reported - Past Family History Father Additional Family Medical History / Comment(s): "HARDENEING OF THE ARTERIES AT AGE 41. SMOKED AND DRANK ETOH Mother Family Medical History: Cancer Additional Family Medical History / Comment(s): "cyst that ruptured between bowel and bladder" Medications and Allergies Home Medications Medication Instructions Recorded Confirmed Type Montelukast [Singulair] 10 mg PO HS@08/28/05/15/23 History Acetaminophen Tab [Tylenol] 1,000 mg PO Q6H PRN 05/22/21 05/15/23 History Levothyroxine Sodium [Synthroid] 125 mcg PO DAILY@59905/22/21 05/15/23 History Loratadine [Claritin] 10 mg PO DAILY PRN 05/22/21 05/15/23 History methocarbamoL [Robaxin] 500 mg PO TID PRN 05/22/21 05/15/23 History Isosorbide Mononitrate ER [Imdur] 30 mg PO DAILY@89912/04/21 05/15/23 History Nitroglycerin Sl Tabs [Nitrostat] 0.4 mg SL Q5M PRN 12/04/21 05/15/23 History DULoxetine HCL [Cymbalta] 30 mg PO BID@0900,209909/27/22 05/15/23 History Omeprazole [PriLOSEC] 20 mg PO DAILY@59909/27/22 05/15/23 History allopurinoL 100 mg PO DAILY@89909/27/22 05/15/23 History busPIRone HCl [Buspar] 10 mg PO BID@0900,209909/27/22 05/15/23 History Docusate [Colace] 100 mg PO BID PRN 10/01/22 05/15/23 Rx Melatonin 5 mg PO HS@209911/19/22 05/15/23 History Sennosides/Docusate Sodium [Senna 2 tab PO HS@209911/19/22 05/15/23 History Plus 8.6-50 mg Softgel] Aspirin 81 mg PO DAILY@89912/27/22 05/15/23 History Atorvastatin [Lipitor] 80 mg PO HS@209912/27/22 05/15/23 History Cyanocobalamin [Vitamin B-12] 1,000 mcg PO DAILY@89912/27/22 05/15/23 History Metoprolol Succinate (ER) [Toprol 50 mg PO DAILY@89912/27/22 05/15/23 History XL] Sennosides [Senokot] 8.6 mg PO DAILY PRN tab 01/08/23 05/15/23 Rx polyethylene glycoL 3350 [Miralax] 17 gm PO DAILY PRN packet 01/08/23 05/15/23 Rx Ascorbic Acid [Vitamin C] 500 mg PO DAILY@89903/05/23 05/15/23 History Insulin Glargine,Hum.rec.anlog 15 units SQ HS@209903/05/23 05/15/23 History [Lantus Solostar Pen] 0.9 % Sodium Chloride [Sodium 10 ml IV DAILY@179905/15/23 05/15/23 History Chloride Flush] Benzocaine/Menthol Lozeng [Cepacol 1 lozenge MUCOUS MEM Q4HR PRN 05/15/23 05/15/23 History lozenge] Ertapenem [INVanz] 1 gm IVPB DAILY@179905/15/23 05/15/23 History Gabapentin [Neurontin] 300 mg PO HS@209905/15/23 05/15/23 History Guaifenesin/Dextromethorphan 10 ml PO Q4H PRN 05/15/23 05/15/23 History [Guaifenesin-Dm 100-10 mg/5 ml] Insulin Lispro [humaLOG Kwikpen] See Protocol SQ QID@08,12,17,21 05/15/23 05/15/23 History L.acidoph,Paracasei, B.lactis 1 cap PO DAILY@89905/15/23 05/15/23 History [Probiotic] Potassium Citrate [Urocit-K] 30 meq PO BID@0900,2100 05/15/23 05/15/23 History Rivaroxaban [Xarelto] 15 mg PO DAILY@1700 05/15/23 05/15/23 History Allergies Allergy/AdvReac Type Severity Reaction Status Date / Time grass pollen Allergy Sinus Verified 05/15/23 08:25 latex Allergy Rash/Hives Verified 05/15/23 08:25 Milk Containing Products Allergy Unknown Verified 05/15/23 08:25 (Dairy) [Dairy] mold Allergy Sinus Verified 05/15/23 08:25 pollen extracts Allergy Sinus Verified 05/15/23 08:25 tree and shrub pollen Allergy Sinus Verified 05/15/23 08:25 Tetracyclines AdvReac YEAST Verified 05/15/23 08:25 INFECTION- PREFERS NOT TO TAKE tramadol AdvReac Unknown Verified 05/15/23 08:25 ENVIRONMENTAL ALLERGIES Allergy SINUS Uncoded 05/15/23 08:25 SYMPTOMS-GRASS TREES,DUST,POLLENS,MOLD Surgical - Exam Vital Signs Temp Pulse Resp BP Pulse Ox 97.6 F 69 20 128/88 99 05/15/23 04:37 05/15/23 04:37 05/15/23 04:37 05/15/23 04:37 05/15/23 04:37 Results - Labs 05/15/23 05:08 05/15/23 05:08 Abnormal Lab Results - Last 24 Hours (Table) 05/15/23 05/15/23 05/15/23 Range/Units 05:08 05:08 05:08 RBC 3.05 L (3.80-5.40) m/uL Hgb 8.0 L D (11.4-16.0) gm/dL Hct 26.8 L (34.0-46.0) % MCHC 29.8 L (31.0-37.0) g/dL RDW 17.4 H (11.5-15.5) % INR 1.2 H (<1.2) Chloride (98-107) mmol/L Carbon Dioxide (22-30) mmol/L BUN (7-17) mg/dL Glucose (74-99) mg/dL Calcium (8.4-10.2) mg/dL Alkaline Phosphatase (38-126) U/L Troponin I (0.000-0.034) ng/mL C-Reactive Protein (<1.0) mg/dL Total Protein (6.3-8.2) g/dL Albumin (3.5-5.0) g/dL Urine Appearance (Clear) Urine Protein (Negative) Urine Blood (Negative) Ur Leukocyte Esterase (Negative) Urine RBC (0-5) /hpf Urine WBC (0-5) /hpf Urine WBC Clumps (None) /hpf Hyaline Casts (0-2) /lpf Stool Occult Blood Positive H (Negative) 05/15/23 05/15/23 05/15/23 Range/Units 05:08 05:08 09:30 RBC (3.80-5.40) m/uL Hgb (11.4-16.0) gm/dL Hct (34.0-46.0) % MCHC (31.0-37.0) g/dL RDW (11.5-15.5) % INR (<1.2) Chloride 96 L (98-107) mmol/L Carbon Dioxide 40 H (22-30) mmol/L BUN 21 H (7-17) mg/dL Glucose 110 H (74-99) mg/dL Calcium 8.1 L (8.4-10.2) mg/dL Alkaline Phosphatase 127 H (38-126) U/L Troponin I 2.030 H* 1.260 H* (0.000-0.034) ng/mL C-Reactive Protein (<1.0) mg/dL Total Protein 5.5 L (6.3-8.2) g/dL Albumin 2.9 L (3.5-5.0) g/dL Urine Appearance (Clear) Urine Protein (Negative) Urine Blood (Negative) Ur Leukocyte Esterase (Negative) Urine RBC (0-5) /hpf Urine WBC (0-5) /hpf Urine WBC Clumps (None) /hpf Hyaline Casts (0-2) /lpf Stool Occult Blood (Negative) 05/15/23 05/15/23 Range/Units 10:00 11:56 RBC (3.80-5.40) m/uL Hgb (11.4-16.0) gm/dL Hct (34.0-46.0) % MCHC (31.0-37.0) g/dL RDW (11.5-15.5) % INR (<1.2) Chloride (98-107) mmol/L Carbon Dioxide (22-30) mmol/L BUN (7-17) mg/dL Glucose (74-99) mg/dL Calcium (8.4-10.2) mg/dL Alkaline Phosphatase (38-126) U/L Troponin I (0.000-0.034) ng/mL C-Reactive Protein 5.0 H (<1.0) mg/dL Total Protein (6.3-8.2) g/dL Albumin (3.5-5.0) g/dL Urine Appearance Turbid H (Clear) Urine Protein 2+ H (Negative) Urine Blood Large H (Negative) Ur Leukocyte Esterase Large H (Negative) Urine RBC >182 H (0-5) /hpf Urine WBC >182 H (0-5) /hpf Urine WBC Clumps Many H (None) /hpf Hyaline Casts 11 H (0-2) /lpf Stool Occult Blood (Negative) Diabetes panel 05/15/23 Range/Units 05:08 Sodium 139 (137-145) mmol/L Potassium 4.3 (3.5-5.1) mmol/L Chloride 96 L (98-107) mmol/L Carbon Dioxide 40 H (22-30) mmol/L BUN 21 H (7-17) mg/dL Creatinine 0.87 (0.52-1.04) mg/dL Glucose 110 H (74-99) mg/dL Calcium 8.1 L (8.4-10.2) mg/dL AST 25 (14-36) U/L ALT 12 (4-34) U/L Alkaline Phosphatase 127 H (38-126) U/L Total Protein 5.5 L (6.3-8.2) g/dL Albumin 2.9 L (3.5-5.0) g/dL Calcium panel 05/15/23 Range/Units 05:08 Calcium 8.1 L (8.4-10.2) mg/dL Albumin 2.9 L (3.5-5.0) g/dL Pituitary panel 05/15/23 Range/Units 05:08 Sodium 139 (137-145) mmol/L Potassium 4.3 (3.5-5.1) mmol/L Chloride 96 L (98-107) mmol/L Carbon Dioxide 40 H (22-30) mmol/L BUN 21 H (7-17) mg/dL Creatinine 0.87 (0.52-1.04) mg/dL Glucose 110 H (74-99) mg/dL Calcium 8.1 L (8.4-10.2) mg/dL Adrenal panel 05/15/23 Range/Units 05:08 Sodium 139 (137-145) mmol/L Potassium 4.3 (3.5-5.1) mmol/L Chloride 96 L (98-107) mmol/L Carbon Dioxide 40 H (22-30) mmol/L BUN 21 H (7-17) mg/dL Creatinine 0.87 (0.52-1.04) mg/dL Glucose 110 H (74-99) mg/dL Calcium 8.1 L (8.4-10.2) mg/dL Total Bilirubin 0.5 (0.2-1.3) mg/dL AST 25 (14-36) U/L ALT 12 (4-34) U/L Alkaline Phosphatase 127 H (38-126) U/L Total Protein 5.5 L (6.3-8.2) g/dL Albumin 2.9 L (3.5-5.0) g/dL
[2023-05-15 16:09] LABS: Anisocytosis Slight; HCT 30.8 % (34.0-46.0); HGB 9.1 gm/dL (11.4-16.0); Hypochromasia Marked; MCH 27.7 pg (25.0-35.0); MCHC 29.7 g/dL (31.0-37.0); Mean Platelet Volume 7.6; Platelet Count 225 k/uL (150-450); Poikilocytosis Slight; RDW 17.3 % (11.5-15.5); WBC 6.7 k/uL (3.8-10.6)
[2023-05-15 16:13] LABS: MCV 93.3 fL (80.0-100.0)
[2023-05-15] MEDS: CEFEPIME 2 GM in SODIUM CHLORIDE 0.9% 100 ML IVPB SCH (17:31)
[2023-05-15] MEDS: polyethylene glycoL 3350 17 GM POWD.PACK PO SCH (18:06)
[2023-05-15 18:59] LABS: % Iron Saturation 7.98 (12.00-45.00); Ferritin 37.6 ng/mL (10.0-291.0)
[2023-05-15] MEDS ORDERED: guaiFENesin-DM 100-10MG/5ML 10 ML CUP PO PRN (19:02)
[2023-05-15] MEDS ORDERED: methocarbamoL 500 MG TAB PO PRN (19:02)
[2023-05-15] MEDS ORDERED: LORATADINE 10 MG TAB PO PRN (19:02)
[2023-05-15] MEDS ORDERED: SENNOSIDES 8.6 MG TAB PO PRN (19:02)
[2023-05-15] MEDS ORDERED: ACETAMINOPHEN TAB 500 MG TAB PO PRN (19:02)
[2023-05-15] MEDS ORDERED: NITROGLYCERIN SL TABS 0.4 MG TAB SUBLINGUAL PRN (19:02)
[2023-05-15] MEDS ORDERED: polyethylene glycoL 3350 17 GM POWD.PACK PO PRN (19:02)
[2023-05-15] MEDS ORDERED: DEXTROSE 50% SYRINGE 50 ML IVP PRN ×2 (19:04)
[2023-05-15] MEDS: LACTULOSE 20 GM/30 ML CUP PO SCH (20:19)
[2023-05-15] MEDS: bisacodyL 10 MG SUPP RECTAL SCH (20:19)
[2023-05-15] MEDS: MONTELUKAST 10 MG TAB PO SCH (20:28)
[2023-05-15] MEDS: FUROSEMIDE 10 MG/ML 4 ML VIAL IV SCH (20:28)
[2023-05-15] MEDS: GABAPENTIN 300 MG CAP PO SCH (20:28)
[2023-05-15] MEDS: busPIRone HCl 10 MG TAB PO SCH (20:28)
[2023-05-15] MEDS: MELATONIN 5 MG TABLET PO SCH (20:28)
[2023-05-15] MEDS: ATORVASTATIN 80 MG TAB PO SCH (20:28)
[2023-05-15] MEDS: DULoxetine HCL 30 MG CAPSULE.DR PO SCH (20:32)
[2023-05-15 21:04] LABS: Glucose,Whole Blood 140 mg/dL (70-110)
[2023-05-15] MEDS: INSULIN DETEMIR (LEVEMIR) 100 UNIT/ML SYR SQ SCH (21:12)
[2023-05-15] MEDS: INSULIN ASPART (NovoLOG) 100 UNIT/ML VIAL SQ SCH (21:12)
--- NOTE | 2023-05-15 22:22 | P.CONS ---
History of Present Illness - Reason for Consult Consult date: 05/15/23 Recent UTI Requesting physician: Maurilio E Sheet - Chief Complaint Abnormal labs x 1 day - History of Present Illness Patient is a 67-year-old female with a past medical history significant for atrial fibrillation asthma coronary artery disease heart failure diabetes mellitus fibromyalgia hypertension hyperlipidemia patient was [facility] the [facility] concerning for abnormal lab apparently the labs done at the prison did show hemoglobin of 3.44 the patient was sent to the ER patient did not recall having any blood in the stool or any vomiting patient denies having any headache no fever no chills no URI symptoms no chest pain or shortness with occasional cough denies any abdominal pain did have some urinary burning frequency suprapubic discomfort but no flank pain patient on presentation to the hospital was afebrile and no fever has been recorded subsequently patient was not tachycardic hypotensive mildly hypoxic currently on 2 L nasal cannula oxygen patient did have a hemoglobin of 8 white count was 6.1 creatinine was normal liver isms are normal did have elevated troponin also have a positive UA stool for occult blood was positive patient was started on Rocephin infectious was consulted for UTI patient last urine culture positive for Pseudomonas aeruginosa on 05/01/2023 Review of Systems Positive point and negatives has been mentioned in the HPI, complete review of systems was performed and all other systems are negative Past Medical History Past Medical History: Atrial Fibrillation, Asthma, Coronary Artery Disease (CAD), Heart Failure, CVA/TIA, Diabetes Mellitus, Deep Vein Thrombosis (DVT), Fibromyalgia, Hyperlipidemia, Hypertension, Myocardial Infarction ([place]), Osteoarthritis (OA), Pulmonary Embolus ([place]), Skin Disorder, Thyroid Disorder Additional Past Medical History / Comment(s): frequent uti's,kidney stones,HEART MURMUR,cardiomyopathy, CHRONIC CONSTIPATION, ECZEMA,SINUS HEADACHES, HX ANEMIA, gout. stage III kidney disease stage 3,lower back pain. 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 CATARACT BLACK. WITH IMPLANTS. HEART CATH X 3 TOTAL 3 STENTS, lithotripsy, kidney stent Past Anesthesia/Blood Transfusion Reactions: Motion Sickness Additional Past Anesthesia/Blood Transfusion Reaction / Comm: no hx blood transfusion Date of Last Stent Placement:: UNKNOWN Past Psychological History: Depression Additional Psychological History / Comment(s): Pt resides at [facility] on the [place], "I have recently had hallucinations, not like where I don't know reality, but like a dream state" Smoking Status: Former smoker Past Alcohol Use History: None Reported Additional Past Alcohol Use History / Comment(s): SMOKED AGE 15 TO AGE 21 -WHEN QUIT WAS SMOKING 1/2 PPD Past Drug Use History: None Reported - Past Family History Father Additional Family Medical History / Comment(s): "HARDENEING OF THE ARTERIES AT AGE 41. SMOKED AND DRANK ETOH Mother Family Medical History: Cancer Additional Family Medical History / Comment(s): "cyst that ruptured between bowel and bladder" Medications and Allergies Home Medications Medication Instructions Recorded Confirmed Type Montelukast [Singulair] 10 mg PO HS@08/28/05/15/23 History Acetaminophen Tab [Tylenol] 1,000 mg PO Q6H PRN 05/22/21 05/15/23 History Levothyroxine Sodium [Synthroid] 125 mcg PO DAILY@59905/22/21 05/15/23 History Loratadine [Claritin] 10 mg PO DAILY PRN 05/22/21 05/15/23 History methocarbamoL [Robaxin] 500 mg PO TID PRN 05/22/21 05/15/23 History Isosorbide Mononitrate ER [Imdur] 30 mg PO DAILY@89912/04/21 05/15/23 History Nitroglycerin Sl Tabs [Nitrostat] 0.4 mg SL Q5M PRN 12/04/21 05/15/23 History DULoxetine HCL [Cymbalta] 30 mg PO BID@0900,2100 09/27/22 05/15/23 History Omeprazole [PriLOSEC] 20 mg PO DAILY@0609/27/22 05/15/23 History allopurinoL 100 mg PO DAILY@0909/27/22 05/15/23 History busPIRone HCl [Buspar] 10 mg PO BID@0900,209909/27/22 05/15/23 History Docusate [Colace] 100 mg PO BID PRN cap 10/01/22 05/15/23 Rx Melatonin 5 mg PO HS@209911/19/22 05/15/23 History Aspirin 81 mg PO DAILY@89912/27/22 05/15/23 History Atorvastatin [Lipitor] 80 mg PO HS@209912/27/22 05/15/23 History Cyanocobalamin [Vitamin B-12] 1,000 mcg PO DAILY@89912/27/22 05/15/23 History Metoprolol Succinate (ER) [Toprol 50 mg PO DAILY@89912/27/22 05/15/23 History XL] Sennosides [Senokot] 8.6 mg PO DAILY PRN tab 01/08/23 05/15/23 Rx polyethylene glycoL 3350 [Miralax] 17 gm PO DAILY PRN packet 01/08/23 05/15/23 Rx Ascorbic Acid [Vitamin C] 500 mg PO DAILY@89903/05/23 05/15/23 History Insulin Glargine,Hum.rec.anlog 15 units SQ HS@209903/05/23 05/15/23 History [Lantus Solostar Pen] Benzocaine/Menthol Lozeng [Cepacol 1 lozenge MUCOUS MEM Q4HR PRN 05/15/23 05/15/23 History lozenge] Gabapentin [Neurontin] 300 mg PO HS@209905/15/23 05/15/23 History Guaifenesin/Dextromethorphan 10 ml PO Q4H PRN 05/15/23 05/15/23 History [Guaifenesin-Dm 100-10 mg/5 ml] Insulin Lispro [humaLOG Kwikpen] See Protocol SQ QID@08,12,,05/15/23 05/15/23 History L.acidoph,Paracasei, B.lactis 1 cap PO DAILY@89905/15/23 05/15/23 History [Probiotic] Potassium Citrate [Urocit-K] 30 meq PO BID@09,209905/15/23 05/15/23 History Rivaroxaban [Xarelto] 15 mg PO DAILY@1700 05/15/23 05/15/23 History Furosemide [Lasix] 40 mg PO DAILY tab 05/20/23 Rx INSULIN ASPART (NovoLOG) [NovoLOG 0 unit SQ ACHS each 05/20/23 Rx (formulary)] Lactulose [Cephulac] 30 gm PO BID ml 05/20/23 Rx Nystatin 100,000 Unit/gm Powd 1 applic TOPICAL TID each 05/20/23 Rx [Mycostatin Powder] Allergies Allergy/AdvReac Type Severity Reaction Status Date / Time grass pollen Allergy Sinus Verified 05/15/23 08:25 latex Allergy Rash/Hives Verified 05/15/23 08:25 Milk Containing Products Allergy Unknown Verified 05/15/23 08:25 (Dairy) [Dairy] mold Allergy Sinus Verified 05/15/23 08:25 pollen extracts Allergy Sinus Verified 05/15/23 08:25 tree and shrub pollen Allergy Sinus Verified 05/15/23 08:25 Tetracyclines AdvReac YEAST Verified 05/15/23 08:25 INFECTION- PREFERS NOT TO TAKE tramadol AdvReac Unknown Verified 05/15/23 08:25 ENVIRONMENTAL ALLERGIES Allergy SINUS Uncoded 05/15/23 08:25 SYMPTOMS-GRASS TREES,DUST,POLLENS,MOLD Physical Exam Vitals: Vital Signs Temp Pulse Resp BP Pulse Ox 05/15/23 11:00 71 20 104/65 98 05/15/23 07:27 98.7 F 64 18 110/62 97 05/15/23 05:42 63 18 100/74 100 05/15/23 05:00 24 05/15/23 04:42 66 17 113/53 99 05/15/23 04:37 97.6 F 69 20 128/88 99 Intake and Output 05/14/23 05/15/23 05/15/23 22:59 06:59 14:59 Other: Weight 160.572 kg GENERAL DESCRIPTION: Elderly female lying in bed, no distress. No tachypnea or accessory muscle of respiration use. HEENT: Shows Pallor , no scleral icterus. Oral mucous membrane is dry. No pharyngeal erythema or thrush NECK: Trachea central, no thyromegaly. LUNGS: Unlabored breathing. Clear to auscultation anteriorly. No wheeze or crackle. HEART: S1, S2, regular rate and rhythm. No loud murmur ABDOMEN: Soft, no tenderness , guarding or rigidity, no organomegaly EXTREMITIES: No edema of feet. SKIN: No rash, no masses palpable. NEUROLOGICAL: The patient is awake, alert, oriented x3, mood and affect normal. Results CBC & Chem 7: 05/19/23 05:40 05/19/23 05:40 Labs: Abnormal Lab Results - Last 24 Hours (Table) 05/15/23 05/15/23 05/15/23 Range/Units 05:08 05:08 05:08 RBC 3.05 L (3.80-5.40) m/uL Hgb 8.0 L D (11.4-16.0) gm/dL Hct 26.8 L (34.0-46.0) % MCHC 29.8 L (31.0-37.0) g/dL RDW 17.4 H (11.5-15.5) % INR 1.2 H (<1.2) Chloride (98-107) mmol/L Carbon Dioxide (22-30) mmol/L BUN (7-17) mg/dL Glucose (74-99) mg/dL Calcium (8.4-10.2) mg/dL Alkaline Phosphatase (38-126) U/L Troponin I (0.000-0.034) ng/mL C-Reactive Protein (<1.0) mg/dL Total Protein (6.3-8.2) g/dL Albumin (3.5-5.0) g/dL Urine Appearance (Clear) Urine Protein (Negative) Urine Blood (Negative) Ur Leukocyte Esterase (Negative) Urine RBC (0-5) /hpf Urine WBC (0-5) /hpf Urine WBC Clumps (None) /hpf Hyaline Casts (0-2) /lpf Stool Occult Blood Positive H (Negative) 05/15/23 05/15/23 05/15/23 Range/Units 05:08 05:08 09:30 RBC (3.80-5.40) m/uL Hgb (11.4-16.0) gm/dL Hct (34.0-46.0) % MCHC (31.0-37.0) g/dL RDW (11.5-15.5) % INR (<1.2) Chloride 96 L (98-107) mmol/L Carbon Dioxide 40 H (22-30) mmol/L BUN 21 H (7-17) mg/dL Glucose 110 H (74-99) mg/dL Calcium 8.1 L (8.4-10.2) mg/dL Alkaline Phosphatase 127 H (38-126) U/L Troponin I 2.030 H* 1.260 H* (0.000-0.034) ng/mL C-Reactive Protein (<1.0) mg/dL Total Protein 5.5 L (6.3-8.2) g/dL Albumin 2.9 L (3.5-5.0) g/dL Urine Appearance (Clear) Urine Protein (Negative) Urine Blood (Negative) Ur Leukocyte Esterase (Negative) Urine RBC (0-5) /hpf Urine WBC (0-5) /hpf Urine WBC Clumps (None) /hpf Hyaline Casts (0-2) /lpf Stool Occult Blood (Negative) 05/15/23 05/15/23 Range/Units 10:00 11:56 RBC (3.80-5.40) m/uL Hgb (11.4-16.0) gm/dL Hct (34.0-46.0) % MCHC (31.0-37.0) g/dL RDW (11.5-15.5) % INR (<1.2) Chloride (98-107) mmol/L Carbon Dioxide (22-30) mmol/L BUN (7-17) mg/dL Glucose (74-99) mg/dL Calcium (8.4-10.2) mg/dL Alkaline Phosphatase (38-126) U/L Troponin I (0.000-0.034) ng/mL C-Reactive Protein 5.0 H (<1.0) mg/dL Total Protein (6.3-8.2) g/dL Albumin (3.5-5.0) g/dL Urine Appearance Turbid H (Clear) Urine Protein 2+ H (Negative) Urine Blood Large H (Negative) Ur Leukocyte Esterase Large H (Negative) Urine RBC >182 H (0-5) /hpf Urine WBC >182 H (0-5) /hpf Urine WBC Clumps Many H (None) /hpf Hyaline Casts 11 H (0-2) /lpf Stool Occult Blood (Negative) Assessment and Plan (1) UTI (urinary tract infection) Status: Acute Code(s): N39.0 - URINARY TRACT INFECTION, SITE NOT SPECIFIED SNOMED Code(s): 42510313 Plan: 1patient presented hospital with abnormal lab possible misinterpretation has a hemoglobin was 8 instead of 3.4 on presentation to the hospital patient did have urinary symptoms positive UA concerning for a symptomatic urinary tract infection with last urine culture positive for Pseudomonas aeruginosa 2 weeks ag o 2-discontinue Rocephin 3-we will start the patient cefepime while waiting for the culture to finalize We will follow on clinical condition and cultures to further adjust medication if needed Thank you for this consultation we will follow the patient along with you Dictation was produced using [employer] dictation software. please excuse any grammatical, word or spelling errors. Time with Patient: Greater than 30
[2023-05-15] MEDS ORDERED: ZINC OXIDE PASTE (Z-GUARD) 1 APPLIC TOPICAL PRN (22:34)
[2023-05-16 05:48] LABS: Glucose,Whole Blood 143 mg/dL (70-110)
[2023-05-16] MEDS: LEVOTHYROXINE 125 MCG TAB PO SCH (05:51)
[2023-05-16] MEDS: allopurinoL 100 MG TAB PO SCH (09:32)
[2023-05-16] MEDS: CYANOCOBALAMIN 500 MCG TAB PO SCH (09:32)
[2023-05-16] MEDS: METOPROLOL SUCCINATE (ER) 50 MG TAB.ER.24H PO SCH (09:33)
[2023-05-16] MEDS: ISOSORBIDE MONONITRATE ER 30 MG TAB.ER.24H PO SCH (09:33)
[2023-05-16] MEDS: ASCORBIC ACID 500 MG TAB PO SCH (09:33)
[2023-05-16] MEDS: LACTOBACILLUS ACIDOPHILUS/PECT 1 EACH CAPSULE PO SCH (09:33)
--- NOTE | 2023-05-16 10:11 | P.PN ---
Subjective This is a pleasant 66 years old female with multiple medical problems as below Atrial Fibrillation, Asthma, Coronary Artery Disease, Heart Failure, CVA/TIA, Diabetes Mellitus, Deep Vein Thrombosis , Fibromyalgia, Hyperlipidemia, Hypertension, Osteoarthritis (OA), Pulmonary Embolus (PE), hypothyroidism, constipation, chronic kidney disease stage III, neuropathy, depression Patient's comes from [facility], she is bedbound for 3 months as she states. She was sent because of low hemoglobin at 3.5. Patient states that she has bleeding all the time for the last 7 years, she claims she bleeds every day, she thinks that comes from her vaginal, but she is not sure, she says each time she P's she has bleeding but she wears diapers so she is not sure. She states that yesterday she has more bleeding so they got a repeat hemoglobin at night 10-11 PM, results came back 3:00 in the morning as 3.5 so they sent her to the hospital. Repeat hemoglobin in the hospital show hemoglobin of 8.0. She is complaining also from mild left upper quadrant abdominal pain about 5/10, nonradiating, not a specific, no relieving or precipitating factors No vomiting or diarrhea. On reviewing the records she had a normal EGD and colonoscopy with bed preparation on 12/27/2022, she has another negative colonoscopy with bouts preparation on 03/06/23 Also patient has right upper extremity PICC line, patient states because she has dysuria and it was placed at [facility] (there is a date on the PICC line stating it is from 05/05/23) , currently patient still complaining of from dysuria Patient currently vitals are stable Hemoglobin is stable at 8, PCO2 is 40, rest of BMP, CBC, INR and liver enzymes were unremarkable Troponin is 2.0 and cleared by box cutter Lactic acid 1.1 She has positive occult blood in stool 05/16/223 Patient awake alert, does not look in distress, no confusion. No specific complaints. She is looking generally weak She complains from mild abdominal tenderness which are different area of the lower abdomen most likely related to her constipation seen on CAT scan of the abdomen. Also there is evidence of kidney stones and ureteral stent, when I asked the patient she states that it is therefore 2 years bouts she claims she saw her uro logist few months ago. She has right upper extremity PICC line which is working and she's been complaining of from dysuria but urine culture is going to [place] however this might be affected by the fact she was on Rocephin prior to hospitalization. Blood culture are still pending. Infectious disease of the case and currently she is on IV supplements started yesterday. The consult urologist for further recommendation regarding her stones and ureteral stents. No evidence of GI bleed, she has little bowel movement this morning which was brown. However anemia workup showing evidence of iron deficiency anemia, we are not going to start iron pills because of her constipation a problem. Her hemoglobin is a stable low at 9.1 today. Surgery team of the case with the plan for EGD/colonoscopy on Friday Pulse shunt also on IV Lasix as there is some evidence of fluid overload, creatinine stable at 0.8 Repeat creatinine from today is pending Xarelto on hold until after the procedure Review of systems CONSTITUTIONAL: No fever, no malaise, no fatigue. HEENT: No recent visual problems or hearing problems. Denied any sore throat. CARDIOVASCULAR: No orthopnea, PND, no palpitations, no syncope. PULMONARY: No shortness of breath, no cough, no hemoptysis. GASTROINTESTINAL: No diarrhea, no nausea, no vomiting, no abdominal pain. Normoactive bowel sounds. Active Medications Generic Name Dose Route Start Last Admin Trade Name Freq PRN Reason Stop Dose Admin Acetaminophen 1,000 mg 05/15/23 19:02 Acetaminophen Tab 500 Mg Tab PO Q6H PRN Pain Allopurinol 100 mg 05/16/23 09:00 05/16/23 09:32 Allopurinol 100 Mg Tab PO 100 mg DAILY@0900 YOANA Administration Ascorbic Acid 500 mg 05/16/23 09:00 05/16/23 09:33 Ascorbic Acid 500 Mg Tab PO 500 mg DAILY@0900 YOANA Administration Atorvastatin Calcium 80 mg 05/15/23 21:00 05/15/23 20:28 Atorvastatin 80 Mg Tab PO 80 mg HS@2100 YOANA Administration Benzocaine/Menthol 1 each 05/15/23 19:02 Benzocaine/Menthol Lozeng 1 Each Lozenge MUCOUS MEM Q4HR PRN Sore Throat Bisacodyl 10 mg 05/15/23 15:15 05/16/23 09:33 Bisacodyl 10 Mg Supp RECTAL 05/18/23 15:16 10 mg DAILY YOANA Administration Buspirone HCl 10 mg 05/15/23 21:00 05/16/23 09:33 Buspirone Hcl 10 Mg Tab PO 10 mg BID@899,2099 YOANA Administration Cyanocobalamin 1,000 mcg 05/16/23 09:00 05/16/23 09:32 Cyanocobalamin 500 Mcg Tab PO 1,000 mcg DAILY@899 YOANA Administration Dextrose/Water 25 ml 05/15/23 19:04 Dextrose 50% Syringe 50 Ml IVP PER PROTOCOL PRN Hypoglycemia Protocol Dextrose/Water 50 ml 05/15/23 19:04 Dextrose 50% Syringe 50 Ml IVP PER PROTOCOL PRN Hypoglycemia Protocol Duloxetine HCl 30 mg 05/15/23 21:00 05/16/23 09:32 Duloxetine Hcl 30 Mg Capsule.Dr PO 30 mg BID@899,2099 YOANA Administration Furosemide 40 mg 05/15/23 21:00 05/16/23 09:32 Furosemide 10 Mg/Ml 4 Ml Vial IV 40 mg Q12HR YOANA Administration Gabapentin 300 mg 05/15/23 21:00 05/15/23 20:28 Gabapentin 300 Mg Cap PO 300 mg HS@2100 YOANA Administration Guaifenesin/Dextromethorphan 10 ml 05/15/23 19:02 Guaifenesin-Dm 100-10mg/5ml 10 Ml Cup PO Q4H PRN Cough Cefepime HCl 2 gm/ Sodium 100 mls @ 25 mls/hr 05/15/23 16:00 05/16/23 09:32 Chloride IVPB 25 mls/hr Q8HR YOANA Administration Protocol Insulin Aspart 0 unit 05/15/23 21:00 05/16/23 05:49 Insulin Aspart (Novolog) 100 Unit/Ml Vial SQ Not Given ACHS [facility] Protocol Insulin Detemir 15 unit 05/15/23 21:00 05/15/23 21:12 Insulin Detemir (Levemir) 100 Unit/Ml Syr SQ 15 unit HS@2100 YOANA Administration Iopamidol 30 ml 05/15/23 11:01 Iopamidol Contrast (Oral Use) Vial PO 05/16/23 11:[address] Scan Isosorbide Mononitrate 30 mg 05/16/23 09:00 05/16/23 09:33 Isosorbide Mononitrate Er 30 Mg Tab.Er.24h PO 30 mg DAILY@09 [facility] Administration Lactobacillus Acidophilus 1 each 05/16/23 09:00 05/16/23 09:33 Lactobacillus Acidophilus/Pect 1 Each Capsule PO 1 each DAILY@09 [facility] Administration Lactulose 30 gm 05/15/23 16:00 05/16/23 09:42 Lactulose 20 Gm/30 Ml Cup PO 30 gm DAILY YOANA Administration Levothyroxine Sodium 125 mcg 05/16/23 06:00 05/16/23 05:51 Levothyroxine 125 Mcg Tab PO 125 mcg DAILY@06 [facility] Administration Loratadine 10 mg 05/15/23 19:02 Loratadine 10 Mg Tab PO DAILY PRN Allergy Symptoms Melatonin 5 mg 05/15/23 21:00 05/15/23 20:28 Melatonin 5 Mg Tablet PO 5 mg HS@2100 [facility] Administration Methocarbamol 500 mg 05/15/23 19:02 Methocarbamol 500 Mg Tab PO TID PRN Muscle Spasm Metoprolol Succinate 50 mg 05/16/23 09:00 05/16/23 09:33 Metoprolol Succinate (Er) 50 Mg Tab.Er.24h PO 50 mg DAILY@09 [facility] Administration Montelukast Sodium 10 mg 05/15/23 21:00 05/15/23 20:28 Montelukast 10 Mg Tab PO 10 mg HS@2100 [facility] Administration Naloxone HCl 0.2 mg 05/15/23 07:08 Naloxone 0.4 Mg/Ml 1 Ml Vial IV Q2M PRN Opioid Reversal Nitroglycerin 0.4 mg 05/15/23 19:02 Nitroglycerin Sl Tabs 0.4 Mg Tab SUBLINGUAL Q5M PRN Chest Pain Nystatin 1 applic 05/16/23 09:00 Nystatin 100,000 Unit/Gm Powd 15 Gm TOPICAL TID [facility] Protocol Petrolatum 1 applic 05/15/23 22:34 Zinc Oxide Paste (Z-Guard) 1 Applic TOPICAL Q2HR PRN [facility] Protocol Polyethylene Glycol 17 gm 05/15/23 15:15 05/16/23 09:33 Polyethylene Glycol 3350 17 Gm Powd.Pack PO 17 gm DAILY YOANA Administration Polyethylene Glycol 17 gm 05/15/23 19:02 Polyethylene Glycol 3350 17 Gm Powd.Pack PO DAILY PRN Constipation Senna 8.6 mg 05/15/23 19:02 Sennosides 8.6 Mg Tab PO DAILY PRN Constipation Sodium Chloride 10 ml 05/16/23 18:00 Sodium Chloride 0.9% Flush 10 Ml Syringe IV DAILY@1800 [facility] Objective - Vital Signs Vital signs: Vital Signs Temp 98 F 05/16/23 07:10 Pulse 82 05/16/23 07:10 Resp 17 05/16/23 07:10 BP 124/62 05/16/23 07:10 Pulse Ox 91 L 05/16/23 07:10 FiO2 Intake & Output 05/15/23 05/16/23 05/16/23 18:59 06:59 18:59 Intake Total 100 Output Total 1350 Balance -1250 Weight 160.572 kg Intake: Intake, IV Titration 100 Amount Cefepime 2 gm In Sodium 100 Chloride 0.9% 100 ml @ 25 mls/hr IVPB Q8HR [facility] Rx# :[id number] Output: Urine 1350 Other: Voiding Method Diaper External Catheter External Catheter # Bowel Movements 1 - Exam -GENERAL: The patient is alert and oriented x3, not in any acute distress. Morbidly obese, bedbound HEENT: Pupils are round and equally reacting to light. EOMI. No scleral icterus. No conjunctival pallor. Normocephalic, atraumatic. No pharyngeal erythema. No thyromegaly. CARDIOVASCULAR: S1 and S2 present. No murmurs, rubs, or gallops. PULMONARY: Chest is clear to auscultation, no wheezing , no crackles. -ABDOMEN: Soft, LUQ tenderness, no rebound tenderness mildly distended , normoactive bowel sounds. No palpable organomegaly. MUSCULOSKELETAL: No joint swelling or deformity. -EXTREMITIES: No cyanosis, clubbing, or pedal edema. Right upper extremity PICC line NEUROLOGICAL: Gross neurological examination did not reveal any focal deficits. SKIN: No rashes. no petechiae. - Labs CBC & Chem 7: 05/15/23 14:37 05/15/23 05:08 Labs: Abnormal Lab Results - Last 24 Hours (Table) 05/15/23 05/15/23 05/15/23 Range/Units 09:30 10:00 11:56 RBC (3.80-5.40) m/uL Hgb (11.4-16.0) gm/dL Hct (34.0-46.0) % MCHC (31.0-37.0) g/dL RDW (11.5-15.5) % POC Glucose (mg/dL) (70-110) mg/dL Iron 26 L (50-170) UG/DL % Saturation 7.98 L (12.00-45.00) Troponin I 1.260 H* (0.000-0.034) ng/mL C-Reactive Protein 5.0 H (<1.0) mg/dL Vitamin B12 1352.0 H (200.0-944.0) pg/mL Urine Appearance Turbid H (Clear) Urine Protein 2+ H (Negative) Urine Blood Large H (Negative) Ur Leukocyte Esterase Large H (Negative) Urine RBC >182 H (0-5) /hpf Urine WBC >182 H (0-5) /hpf Urine WBC Clumps Many H (None) /hpf Hyaline Casts 11 H (0-2) /lpf 05/15/23 05/15/23 05/15/23 Range/Units 14:37 14:37 21:03 RBC 3.30 L (3.80-5.40) m/uL Hgb 9.1 L (11.4-16.0) gm/dL Hct 30.8 L (34.0-46.0) % MCHC 29.7 L (31.0-37.0) g/dL RDW 17.3 H (11.5-15.5) % POC Glucose (mg/dL) 140 H (70-110) mg/dL Iron (50-170) UG/DL % Saturation (12.00-45.00) Troponin I 0.795 H* (0.000-0.034) ng/mL C-Reactive Protein (<1.0) mg/dL Vitamin B12 (200.0-944.0) pg/mL Urine Appearance (Clear) Urine Protein (Negative) Urine Blood (Negative) Ur Leukocyte Esterase (Negative) Urine RBC (0-5) /hpf Urine WBC (0-5) /hpf Urine WBC Clumps (None) /hpf Hyaline Casts (0-2) /lpf 05/16/23 Range/Units 05:42 RBC (3.80-5.40) m/uL Hgb (11.4-16.0) gm/dL Hct (34.0-46.0) % MCHC (31.0-37.0) g/dL RDW (11.5-15.5) % POC Glucose (mg/dL) 143 H (70-110) mg/dL Iron (50-170) UG/DL % Saturation (12.00-45.00) Troponin I (0.000-0.034) ng/mL C-Reactive Protein (<1.0) mg/dL Vitamin B12 (200.0-944.0) pg/mL Urine Appearance (Clear) Urine Protein (Negative) Urine Blood (Negative) Ur Leukocyte Esterase (Negative) Urine RBC (0-5) /hpf Urine WBC (0-5) /hpf Urine WBC Clumps (None) /hpf Hyaline Casts (0-2) /lpf Microbiology - Last 24 Hours (Table) 05/15/23 11:56 Urine Culture - Final Urine,Voided Assessment and Plan Assessment: Anemia, secondary to iron deficiency. Monitor for Recurrent GI bleeding is suspected, urinary tract infection, recently treated with PICC line at [facility] Chronic atrial fibrillation on xarelto at home elevated troponin, cleared by box cutter Patient has history of right ureter stent and stone History of asthma And COPD as per patient, currently not active issue or exacerbation Chronic hypoxic respiratory failure and 2-3 L of oxygen at home History of coronary artery disease status post stent Chronic heart failure History of CVA/TIA Diabetes mellitus Hypertension Hyperlipidemia History of osteoarthritis, with moderate to severe right neural foraminal stenosis at L5-S1 Hypothyroidism history of fibromyalgia History of DVT and pulmonary embolism Chronic kidney disease stage III Neuropathy History of depression Morbid obesity with BMI of 45.7 Plan: Monitor hemoglobin. Plan for EGD/colonoscopy on Friday Surgical team consult Give more laxative for constipation Check blood culture. Continue with antibiotic as per ID team, currently on cefepime Consults infectious disease team Hold xarelto till cleared by surgery Cardiology team consult Urologist in consult for stent management and kidney stone Continue same treatment. Continue with symptomatic treatment. Resume home medication. Monitor labs and vitals. DVT and GI prophylaxis. Further recommendations as per clinical course of the patient DVT prophylaxis: hold xarelto GI Prophylaxis: Pepcid PT/OT: Pending Prognosis is guarded
[2023-05-16 10:44] LABS: Glucose,Whole Blood 201 mg/dL (70-110)
[2023-05-16 10:59] LABS: Basophils # (A) 0.03 X 10*3/uL (0.00-0.10); Basophils % (A) 0.5 %; Eosinophils # (A) 0.36 X 10*3/uL (0.04-0.35); Eosinophils % (A) 5.7 %; HCT 25.7 % (37.2-46.3); HGB 7.4 g/dL (12.0-15.0); Lymphocytes # (A) 1.49 X 10*3/uL (0.90-5.00); Lymphocytes % (A) 23.5 %; MCH 26.4 pg (27.0-32.0); MCHC 28.8 g/dL (32.0-37.0); MCV 91.8 FL (80.0-97.0); Mean Platelet Volume 9.3 FL (9.5-12.2); Monocytes # (A) 0.56 X 10*3/uL (0.20-1.00); Monocytes % (A) 8.8 %; NRBC Per 100 WBC 0 X 10*3/uL (0.00-0.01); Neutrophils # (A) 3.84 X 10*3/uL (1.80-7.70); Neutrophils % (A) 60.7 %; Platelet Count 208 X 10*3/uL (140-440); RDW 17.2 % (11.5-14.5); WBC 6.33 X 10*3/uL (4.50-10.00)
[2023-05-16 11:20] LABS: BUN/Creat Ratio 18.55 Ratio (12.00-20.00); Blood Urea Nitrogen 20.4 mg/dL (9.0-27.0); Calcium 8.3 mg/dL (8.7-10.3); Carbon Dioxide 35.6 mmol/L (21.6-31.8); Chloride 96 mmol/L (96-109); Glucose 137 mg/dL (70-110); Potassium 4.2 mmol/L (3.5-5.5); Sodium 139 mmol/L (135-145)
--- NOTE | 2023-05-16 12:39 | P.PN ---
Subjective Progress Note Date: 05/16/23 This is a pleasant 67-year-old female patient who follows in the office with Dr. Taylor. She has a past medical history of CAD with unsuccessful attempt at stenting in 2018 at which time she was seen and evaluated by cardiothoracic surgery and was felt to be high risk for CABG and therefore recommended maximal medical therapy. Also has a history of ischemic cardiomyopathy, diabetes, atrial fibrillation, hyperlipidemia and morbid obesity. We were asked to see the patient in consultation for elevated troponins that came back at 2.03, 1.26 and 0.795. She was initially sent to the ER after labs showed a hemoglobin of 3 point 5 repeat hemoglobin performed here revealed hemoglobin of 8.0. She had no chest discomfort prior to admission. She denied any shortness of breath. She does complain of occasional fluttering in her chest and feeling her heart racing at times. She has been maintained on Xarelto outpatient but that is on hold due to anemia. On examination she is resting comfortably in bed. Continues to complain of racing heart at times. Denies any shortness of breath or edema. Echocardiogram with Doppler study was performed and showed ejection fraction 50 to 55%, mild MR and mild to moderate TR. Objective - Vital Signs Vital signs: Vital Signs Temp 98 F 05/16/23 07:10 Pulse 82 05/16/23 07:10 Resp 17 05/16/23 07:10 BP 124/62 05/16/23 07:10 Pulse Ox 91 L 05/16/23 07:10 FiO2 Intake & Output 05/15/23 05/16/23 05/16/23 18:59 06:59 18:59 Intake Total 100 Output Total 1350 Balance -1250 Weight 160.572 kg Intake: Intake, IV Titration 100 Amount Cefepime 2 gm In Sodium 100 Chloride 0.9% 100 ml @ 25 mls/hr IVPB Q8HR [facility] Rx# :[id number] Output: Urine 1350 Other: Voiding Method Diaper External Catheter External Catheter # Bowel Movements 1 - Exam PHYSICAL EXAM: VITAL SIGNS: Reviewed. GENERAL: Well-developed in no acute distress. HEENT: Head is normocephalic. Pupils are equal, round. Sclerae anicteric. Mucous membranes of the mouth are moist. Neck supple. No JVD or thyromegaly LUNGS: Respirations even and unlabored. Lungs essentially clear to auscultation bilaterally. HEART: Regular rate and rhythm. S1 and S2 heard. ABDOMEN: Soft. Nondistended. Nontender. EXTREMITIES: Normal range of motion. No clubbing or cyanosis. Peripheral pul ses intact. Trace bilateral lower extremity edema NEUROLOGIC: Awake and alert. Oriented x 3. Some confusion noted. - Labs CBC & Chem 7: 05/16/23 06:13 05/16/23 06:13 Labs: Abnormal Lab Results - Last 24 Hours (Table) 05/15/23 05/15/23 05/15/23 Range/Units 10:00 11:56 14:37 RBC (3.80-5.40) m/uL Hgb (11.4-16.0) gm/dL Hct (34.0-46.0) % MCHC (31.0-37.0) g/dL RDW (11.5-15.5) % POC Glucose (mg/dL) (70-110) mg/dL Iron 26 L (50-170) UG/DL % Saturation 7.98 L (12.00-45.00) Troponin I 0.795 H* (0.000-0.034) ng/mL C-Reactive Protein 5.0 H (<1.0) mg/dL Vitamin B12 1352.0 H (200.0-944.0) pg/mL Urine Appearance Turbid H (Clear) Urine Protein 2+ H (Negative) Urine Blood Large H (Negative) Ur Leukocyte Esterase Large H (Negative) Urine RBC >182 H (0-5) /hpf Urine WBC >182 H (0-5) /hpf Urine WBC Clumps Many H (None) /hpf Hyaline Casts 11 H (0-2) /lpf 05/15/23 05/15/23 05/16/23 Range/Units 14:37 21:03 05:42 RBC 3.30 L (3.80-5.40) m/uL Hgb 9.1 L (11.4-16.0) gm/dL Hct 30.8 L (34.0-46.0) % MCHC 29.7 L (31.0-37.0) g/dL RDW 17.3 H (11.5-15.5) % POC Glucose (mg/dL) 140 H 143 H (70-110) mg/dL Iron (50-170) UG/DL % Saturation (12.00-45.00) Troponin I (0.000-0.034) ng/mL C-Reactive Protein (<1.0) mg/dL Vitamin B12 (200.0-944.0) pg/mL Urine Appearance (Clear) Urine Protein (Negative) Urine Blood (Negative) Ur Leukocyte Esterase (Negative) Urine RBC (0-5) /hpf Urine WBC (0-5) /hpf Urine WBC Clumps (None) /hpf Hyaline Casts (0-2) /lpf 05/16/23 Range/Units 10:43 RBC (3.80-5.40) m/uL Hgb (11.4-16.0) gm/dL Hct (34.0-46.0) % MCHC (31.0-37.0) g/dL RDW (11.5-15.5) % POC Glucose (mg/dL) 201 H (70-110) mg/dL Iron (50-170) UG/DL % Saturation (12.00-45.00) Troponin I (0.000-0.034) ng/mL C-Reactive Protein (<1.0) mg/dL Vitamin B12 (200.0-944.0) pg/mL Urine Appearance (Clear) Urine Protein (Negative) Urine Blood (Negative) Ur Leukocyte Esterase (Negative) Urine RBC (0-5) /hpf Urine WBC (0-5) /hpf Urine WBC Clumps (None) /hpf Hyaline Casts (0-2) /lpf Microbiology - Last 24 Hours (Table) 05/15/23 11:56 Urine Culture - Final Urine,Voided Assessment and Plan Assessment: Anemia, appears stable with hemoglobin in the 8's Hemoglobin 3.5, Suspect lab error Non-STEMI Coronary artery disease with previous PTCA Status post unsuccessful stenting of LAD and RCA, 2017 Mild ischemic cardiomyopathy, EF 45% Paroxysmal atrial fibrillation, on Xarelto outpatient Hyperlipidemia Diabetes Morbid obesity History of EGD and colonoscopy, 2022 Plan: From cardiology's perspective we will await results of EGD and colonoscopy to be done on Friday. Will add low-dose aspirin for now. Pending on findings of the endoscopy further recommendations will be made regarding the anticoagulation we will wait for recommendations from GI. Continue to maximize medical therapy. Will continue to follow the patient provide further recommendations accordingly. [employer]ATOR note has been reviewed, I agree with a documented findings and plan of care. Patient was seen and examined.
--- NOTE | 2023-05-16 13:07 | P.PN ---
Subjective Progress Note Date: 05/16/23 Principal diagnosis: Reason for follow-up is a urinary tract infection Patient is a 67-year-old female with a past medical history significant for atrial fibrillation asthma coronary artery disease heart failure diabetes mellitus fibromyalgia hypertension hyperlipidemia patient was sent to the ER from the local halfway concerning for abnormal lab, workup in the ED she was positive UA patient was having some urinary symptoms concerning for UTI prompting this infectious disease consultation. On today's evaluation that is 05/16/2023, the patient is afebrile, patient is on 2 L nasal cannula oxygen, the patient denies chest pain shortness of breath did have some cough but not bring up any sputum, patient denies nausea no vomiting no abdominal pain and no diarrhea. Patient white count is 6.33, creatinine is 1.1 cultures are pending Objective - Vital Signs Vital signs: Vital Signs Temp 98 F 05/16/23 07:10 Pulse 82 05/16/23 07:10 Resp 17 05/16/23 07:10 BP 124/62 05/16/23 07:10 Pulse Ox 91 L 05/16/23 07:10 FiO2 Intake & Output 05/15/23 05/16/23 05/16/23 18:59 06:59 18:59 Intake Total 100 Output Total 1350 125 Balance -1250 -125 Weight 160.572 kg Intake: Intake, IV Titration 100 Amount Cefepime 2 gm In Sodium 100 Chloride 0.9% 100 ml @ 25 mls/hr IVPB Q8HR [facility] Rx# :[id number] Output: Urine 1350 125 Other: Voiding Method Diaper External Catheter External Catheter # Bowel Movements 1 - Exam GENERAL DESCRIPTION: An elderly female lying in bed in no distress RESPIRATORY SYSTEM: Unlabored breathing , decreased breath sounds at bases HEART: S1 S2 regular rate and rhythm , ABDOMEN: Soft , no tenderness EXTREMITIES: No edema feet - Labs CBC & Chem 7: 05/16/23 06:13 05/16/23 06:13 Labs: Abnormal Lab Results - Last 24 Hours (Table) 05/15/23 05/15/23 05/15/23 Range/Units 10:00 14:37 14:37 RBC 3.30 L (3.80-5.40) m/uL Hgb 9.1 L (11.4-16.0) gm/dL Hct 30.8 L (34.0-46.0) % MCH (27.0-32.0) pg MCHC 29.7 L (31.0-37.0) g/dL RDW 17.3 H (11.5-15.5) % MPV (9.5-12.2) FL Immature Gran # (0.00-0.04) X 10*3/uL Eosinophils # (0.04-0.35) X 10*3/uL Carbon Dioxide (21.6-31.8) mmol/L Est GFR (CKD-EPI) (>=60) Glucose (70-110) mg/dL POC Glucose (mg/dL) (70-110) mg/dL Hemoglobin A1c (<=6.0) % Calcium (8.7-10.3) mg/dL Iron 26 L (50-170) UG/DL % Saturation 7.98 L (12.00-45.00) Troponin I 0.795 H* (0.000-0.034) ng/mL Vitamin B12 1352.0 H (200.0-944.0) pg/mL 05/15/23 05/16/23 05/16/23 Range/Units 21:03 05:42 06:13 RBC (3.80-5.40) m/uL Hgb (11.4-16.0) gm/dL Hct (34.0-46.0) % MCH (27.0-32.0) pg MCHC (31.0-37.0) g/dL RDW (11.5-15.5) % MPV (9.5-12.2) FL Immature Gran # (0.00-0.04) X 10*3/uL Eosinophils # (0.04-0.35) X 10*3/uL Carbon Dioxide (21.6-31.8) mmol/L Est GFR (CKD-EPI) (>=60) Glucose (70-110) mg/dL POC Glucose (mg/dL) 140 H 143 H (70-110) mg/dL Hemoglobin A1c 6.5 H (<=6.0) % Calcium (8.7-10.3) mg/dL Iron (50-170) UG/DL % Saturation (12.00-45.00) Troponin I (0.000-0.034) ng/mL Vitamin B12 (200.0-944.0) pg/mL 05/16/23 05/16/23 05/16/23 Range/Units 06:13 06:13 10:43 RBC 2.80 L (3.80-5.40) m/uL Hgb 7.4 L (11.4-16.0) gm/dL Hct 25.7 L (34.0-46.0) % MCH 26.4 L (27.0-32.0) pg MCHC 28.8 L (31.0-37.0) g/dL RDW 17.2 H (11.5-15.5) % MPV 9.3 L (9.5-12.2) FL Immature Gran # 0.05 H (0.00-0.04) X 10*3/uL Eosinophils # 0.36 H (0.04-0.35) X 10*3/uL Carbon Dioxide 35.6 H (21.6-31.8) mmol/L Est GFR (CKD-EPI) 55 L (>=60) Glucose 137 H (70-110) mg/dL POC Glucose (mg/dL) 201 H (70-110) mg/dL Hemoglobin A1c (<=6.0) % Calcium 8.3 L (8.7-10.3) mg/dL Iron (50-170) UG/DL % Saturation (12.00-45.00) Troponin I (0.000-0.034) ng/mL Vitamin B12 (200.0-944.0) pg/mL Microbiology - Last 24 Hours (Table) 05/15/23 11:56 Urine Culture - Final Urine,Voided Assessment and Plan (1) UTI (urinary tract infection) Current Visit: No Status: Acute Code(s): N39.0 - URINARY TRACT INFECTION, SITE NOT SPECIFIED SNOMED Code(s): 10714401 Plan: 1patient presented hospital with abnormal lab possible misinterpretation has a hemoglobin was 8 instead of 3.4 on presentation to the hospital patient did have urinary symptoms positive UA concerning for a symptomatic urinary tract infection with last urine culture positive for Pseudomonas aeruginosa 2 weeks ago 2-patient to continue with cefepime while waiting for the culture to finalize Dictation was produced using [employer] dictation software. please excuse any grammatical, word or spelling errors. Time with Patient: Less than 30
--- NOTE | 2023-05-16 13:47 | P.PN ---
Subjective Progress Note Date: 05/16/23 CHIEF COMPLAINT: Anemia HISTORY OF PRESENT ILLNESS: Patient scheduled for EGD and colonoscopy on Friday to evaluate for her anemia. Patient did have a smear of a brown bowel movement today. No reported bleeding per nursing staff or patient. Hemoglobin outpatient of 3.5 likely lab error. However patient does remain anemic hemoglobin did go from 8-9.1 and now 7.4. Patient is required no blood transf usions this admission. Denies any abdominal pain. PHYSICAL EXAM: VITAL SIGNS: Reviewed. GENERAL: Well-developed in no acute distress. ABDOMEN: Soft. Obesity nondistended. Nontender. NEUROLOGIC: Awake and alert ASSESSMENT: 1. Anemia. Hemoglobin of 3.5 outpatient may be a lab error. 2. Chronic anemia 3. UTI 4. Non-ST elevated KS seen by cardiology 5. Constipation PLAN: -Patient scheduled for EGD and colonoscopy on Friday with Dr. Early -Start full liquids tomorrow to prepare for colonoscopy -GoLytely bowel prep on Friday -Continue lactulose and MiraLAX for constipation -Hold Xarelto -Continue to monitor for any signs or symptoms of bleeding -Continue to monitor hemoglobin Physician Wildlife Manager note has been reviewed by physician. Signing provider agrees with the documented findings, assessment, and plan of care. Objective - Vital Signs Vital signs: Vital Signs Temp 98 F 05/16/23 07:10 Pulse 82 05/16/23 07:10 Resp 17 05/16/23 07:10 BP 124/62 05/16/23 07:10 Pulse Ox 91 L 05/16/23 07:10 FiO2 Intake & Output 05/15/23 05/16/23 05/16/23 18:59 06:59 18:59 Intake Total 100 Output Total 1350 Balance -1250 Weight 160.572 kg Intake: Intake, IV Titration 100 Amount Cefepime 2 gm In Sodium 100 Chloride 0.9% 100 ml @ 25 mls/hr IVPB Q8HR [facility] Rx# :[id number] Output: Urine 1350 Other: Voiding Method Diaper External Catheter External Catheter # Bowel Movements 1 - Labs CBC & Chem 7: 05/16/23 06:13 05/16/23 06:13 Labs: Abnormal Lab Results - Last 24 Hours (Table) 05/15/23 05/15/23 05/15/23 Range/Units 10:00 11:56 14:37 RBC (3.80-5.40) m/uL Hgb (11.4-16.0) gm/dL Hct (34.0-46.0) % MCH (27.0-32.0) pg MCHC (31.0-37.0) g/dL RDW (11.5-15.5) % MPV (9.5-12.2) FL Immature Gran # (0.00-0.04) X 10*3/uL Eosinophils # (0.04-0.35) X 10*3/uL Carbon Dioxide (21.6-31.8) mmol/L Glucose (70-110) mg/dL POC Glucose (mg/dL) (70-110) mg/dL Hemoglobin A1c (<=6.0) % Iron 26 L (50-170) UG/DL % Saturation 7.98 L (12.00-45.00) Troponin I 0.795 H* (0.000-0.034) ng/mL C-Reactive Protein 5.0 H (<1.0) mg/dL Vitamin B12 1352.0 H (200.0-944.0) pg/mL Urine Appearance Turbid H (Clear) Urine Protein 2+ H (Negative) Urine Blood Large H (Negative) Ur Leukocyte Esterase Large H (Negative) Urine RBC >182 H (0-5) /hpf Urine WBC >182 H (0-5) /hpf Urine WBC Clumps Many H (None) /hpf Hyaline Casts 11 H (0-2) /lpf 05/15/23 05/15/23 05/16/23 Range/Units 14:37 21:03 05:42 RBC 3.30 L (3.80-5.40) m/uL Hgb 9.1 L (11.4-16.0) gm/dL Hct 30.8 L (34.0-46.0) % MCH (27.0-32.0) pg MCHC 29.7 L (31.0-37.0) g/dL RDW 17.3 H (11.5-15.5) % MPV (9.5-12.2) FL Immature Gran # (0.00-0.04) X 10*3/uL Eosinophils # (0.04-0.35) X 10*3/uL Carbon Dioxide (21.6-31.8) mmol/L Glucose (70-110) mg/dL POC Glucose (mg/dL) 140 H 143 H (70-110) mg/dL Hemoglobin A1c (<=6.0) % Iron (50-170) UG/DL % Saturation (12.00-45.00) Troponin I (0.000-0.034) ng/mL C-Reactive Protein (<1.0) mg/dL Vitamin B12 (200.0-944.0) pg/mL Urine Appearance (Clear) Urine Protein (Negative) Urine Blood (Negative) Ur Leukocyte Esterase (Negative) Urine RBC (0-5) /hpf Urine WBC (0-5) /hpf Urine WBC Clumps (None) /hpf Hyaline Casts (0-2) /lpf 05/16/23 05/16/23 05/16/23 Range/Units 06:13 06:13 06:13 RBC 2.80 L (3.80-5.40) m/uL Hgb 7.4 L (11.4-16.0) gm/dL Hct 25.7 L (34.0-46.0) % MCH 26.4 L (27.0-32.0) pg MCHC 28.8 L (31.0-37.0) g/dL RDW 17.2 H (11.5-15.5) % MPV 9.3 L (9.5-12.2) FL Immature Gran # 0.05 H (0.00-0.04) X 10*3/uL Eosinophils # 0.36 H (0.04-0.35) X 10*3/uL Carbon Dioxide 35.6 H (21.6-31.8) mmol/L Glucose 137 H (70-110) mg/dL POC Glucose (mg/dL) (70-110) mg/dL Hemoglobin A1c 6.5 H (<=6.0) % Iron (50-170) UG/DL % Saturation (12.00-45.00) Troponin I (0.000-0.034) ng/mL C-Reactive Protein (<1.0) mg/dL Vitamin B12 (200.0-944.0) pg/mL Urine Appearance (Clear) Urine Protein (Negative) Urine Blood (Negative) Ur Leukocyte Esterase (Negative) Urine RBC (0-5) /hpf Urine WBC (0-5) /hpf Urine WBC Clumps (None) /hpf Hyaline Casts (0-2) /lpf 05/16/23 Range/Units 10:43 RBC (3.80-5.40) m/uL Hgb (11.4-16.0) gm/dL Hct (34.0-46.0) % MCH (27.0-32.0) pg MCHC (31.0-37.0) g/dL RDW (11.5-15.5) % MPV (9.5-12.2) FL Immature Gran # (0.00-0.04) X 10*3/uL Eosinophils # (0.04-0.35) X 10*3/uL Carbon Dioxide (21.6-31.8) mmol/L Glucose (70-110) mg/dL POC Glucose (mg/dL) 201 H (70-110) mg/dL Hemoglobin A1c (<=6.0) % Iron (50-170) UG/DL % Saturation (12.00-45.00) Troponin I (0.000-0.034) ng/mL C-Reactive Protein (<1.0) mg/dL Vitamin B12 (200.0-944.0) pg/mL Urine Appearance (Clear) Urine Protein (Negative) Urine Blood (Negative) Ur Leukocyte Esterase (Negative) Urine RBC (0-5) /hpf Urine WBC (0-5) /hpf Urine WBC Clumps (None) /hpf Hyaline Casts (0-2) /lpf Microbiology - Last 24 Hours (Table) 05/15/23 11:56 Urine Culture - Final Urine,Voided
[2023-05-16] MEDS: NYSTATIN 100,000 UNIT/GM POWD 15 GM TOPICAL SCH (16:00)
[2023-05-16 17:00] LABS: Glucose,Whole Blood 205 mg/dL (70-110)
[2023-05-16] MEDS: ASPIRIN 81 MG PO SCH (17:09)
[2023-05-16] MEDS ORDERED: RIVAROXABAN 15 MG TAB PO SCH (17:30)
[2023-05-16 20:35] LABS: Glucose,Whole Blood 117 mg/dL (70-110)
[2023-05-16] MEDS: CEFEPIME 2 GM in SODIUM CHLORIDE 0.9% 100 ML IVPB SCH (21:31)
[2023-05-16] MEDS: LACTULOSE 20 GM/30 ML CUP PO SCH (21:33)
[2023-05-17 05:54] LABS: Glucose,Whole Blood 120 mg/dL (70-110)
[2023-05-17 08:31] LABS: Anisocytosis Slight; Basophils % (A) 0 %; Eosinophils # (A) 0.4 k/uL (0-0.7); Eosinophils % (A) 6 %; HCT 25.3 % (34.0-46.0); HGB 7.8 gm/dL (11.4-16.0); Hypochromasia Marked; Lymphocytes # (A) 1.4 k/uL (1.0-4.8); Lymphocytes % (A) 23 %; MCH 27.3 pg (25.0-35.0); MCHC 30.9 g/dL (31.0-37.0); MCV 88.4 fL (80.0-100.0); Mean Platelet Volume 7.5; Monocytes # (A) 0.5 k/uL (0-1.0); Monocytes % (A) 8 %; Neutrophils # (A) 3.8 k/uL (1.3-7.7); Neutrophils % (A) 61 %; Platelet Count 230 k/uL (150-450); Poikilocytosis Slight; RBC 2.86 m/uL (3.80-5.40); RDW 17.1 % (11.5-15.5); WBC 6.3 k/uL (3.8-10.6)
[2023-05-17 08:36] LABS: African American GFR (CKD) 79 (>60 ml/min/1.73 sqM); Anion Gap 2 mmol/L; Blood Urea Nitrogen 21 mg/dL (7-17); Chloride 95 mmol/L (98-107); Glucose 104 mg/dL (74-99); Non-African American GFR(CKD) 69 (>60 ml/min/1.73 sqM); Potassium 3.7 mmol/L (3.5-5.1); Sodium 138 mmol/L (137-145)
[2023-05-17 08:39] LABS: Carbon Dioxide 41 mmol/L (22-30)
[2023-05-17 11:14] LABS: Glucose,Whole Blood 235 mg/dL (70-110)
--- NOTE | 2023-05-17 11:41 | P.GSCN ---
History of Present Illness Consult date: 05/17/23 Reason for Consult: Renal calculi Requesting physician: Maurilio E Sheet History of present illness: The patient is a 67-year-old white female well-known to Dr. You. Last summer, she was found to have a 1 cm right UPJ calculus. She was hospitalized with UTI and sepsis. She underwent right ureteral stent insertion in September 2022. Ureteroscopy with laser lithotripsy was attempted in November 2022, but could not be performed due to edema and bleeding. It was felt that the patient would require a percutaneous nephrolithotomy. Given her obesity, it was Dr. You's feeling that this should be performed in a tertiary care center. She was referred to Dr. Huy Walker at [facility] and seen by him in February 2023. It was his plan to attempt ureteroscopy and perform a percutaneous nephrolithotomy if necessary. It is unclear to me whether or not surgery was scheduled, as the patient is a vague historian and we have not received any records from Dr. Walker since his initial consultation. The patient resides at [facility]. She presented due to the fact that she has noted blood in her pad, the source of which is unclear. The patient states that she experiences dysuria and has been treated for recurrent UTIs. Review of Systems - Constitutional Denies chills, Denies fever - Cardiovascular Reports high blood pressure - Genitourinary Genitourinary: Reports dysuria Past Medical History Past Medical History: Atrial Fibrillation, Asthma, Coronary Artery Disease (CAD), Heart Failure, CVA/TIA, Diabetes Mellitus, Deep Vein Thrombosis (DVT), Fibromyalgia, Hyperlipidemia, Hypertension, Myocardial Infarction ([place]), Osteoarthritis (OA), Pulmonary Embolus (PE), Skin Disorder, Thyroid Disorder Additional Past Medical History / Comment(s): frequent uti's,kidney stones,HEART MURMUR,cardiomyopathy, CHRONIC CONSTIPATION, ECZEMA,SINUS HEADACHES, HX ANEMIA, gout. stage III kidney disease stage 3,lower back pain. 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 CATARACT BLACK. WITH IMPLANTS. HEART CATH X 3 TOTAL 3 STENTS, lithotripsy, kidney stent Past Anesthesia/Blood Transfusion Reactions: Motion Sickness Additional Past Anesthesia/Blood Transfusion Reaction / Comm: no hx blood transfusion Date of Last Stent Placement:: UNKNOWN Past Psychological History: Depression Additional Psychological History / Comment(s): Pt resides at [facility] on [facility], "I have recently had hallucinations, not like where I don't know reality, but like a dream state" Smoking Status: Former smoker Past Alcohol Use History: None Reported Additional Past Alcohol Use History / Comment(s): SMOKED AGE 15 TO AGE 21 -WHEN QUIT WAS SMOKING 1/2 PPD Past Drug Use History: None Reported - Past Family History Father Additional Family Medical History / Comment(s): "HARDENEING OF THE ARTERIES AT AGE 41. SMOKED AND DRANK ETOH Mother Family Medical History: Cancer Additional Family Medical History / Comment(s): "cyst that ruptured between bowel and bladder" Medications and Allergies Home Medications Medication Instructions Recorded Confirmed Type Montelukast [Singulair] 10 mg PO HS@08/28/05/15/23 History Acetaminophen Tab [Tylenol] 1,000 mg PO Q6H PRN 05/22/21 05/15/23 History Levothyroxine Sodium [Synthroid] 125 mcg PO DAILY@0605/22/21 05/15/23 History Loratadine [Claritin] 10 mg PO DAILY PRN 05/22/21 05/15/23 History methocarbamoL [Robaxin] 500 mg PO TID PRN 05/22/21 05/15/23 History Isosorbide Mononitrate ER [Imdur] 30 mg PO DAILY@0912/04/21 05/15/23 History Nitroglycerin Sl Tabs [Nitrostat] 0.4 mg SL Q5M PRN 12/04/21 05/15/23 History DULoxetine HCL [Cymbalta] 30 mg PO BID@0900,2100 09/27/22 05/15/23 History Omeprazole [PriLOSEC] 20 mg PO DAILY@0609/27/22 05/15/23 History allopurinoL 100 mg PO DAILY@89909/27/22 05/15/23 History busPIRone HCl [Buspar] 10 mg PO BID@09/27/22 05/15/23 History Docusate [Colace] 100 mg PO BID PRN cap 10/01/22 05/15/23 Rx Melatonin 5 mg PO HS@209911/19/22 05/15/23 History Sennosides/Docusate Sodium [Senna 2 tab PO HS@209911/19/22 05/15/23 History Plus 8.6-50 mg Softgel] Aspirin 81 mg PO DAILY@89912/27/22 05/15/23 History Atorvastatin [Lipitor] 80 mg PO HS@209912/27/22 05/15/23 History Cyanocobalamin [Vitamin B-12] 1,000 mcg PO DAILY@89912/27/22 05/15/23 History Metoprolol Succinate (ER) [Toprol 50 mg PO DAILY@89912/27/22 05/15/23 History XL] Sennosides [Senokot] 8.6 mg PO DAILY PRN tab 01/08/23 05/15/23 Rx polyethylene glycoL 3350 [Miralax] 17 gm PO DAILY PRN packet 01/08/23 05/15/23 Rx Ascorbic Acid [Vitamin C] 500 mg PO DAILY@89903/05/23 05/15/23 History Insulin Glargine,Hum.rec.anlog 15 units SQ HS@209903/05/23 05/15/23 History [Lantus Solostar Pen] 0.9 % Sodium Chloride [Sodium 10 ml IV DAILY@179905/15/23 05/15/23 History Chloride Flush] Benzocaine/Menthol Lozeng [Cepacol 1 lozenge MUCOUS MEM Q4HR PRN 05/15/23 05/15/23 History lozenge] Ertapenem [INVanz] 1 gm IVPB DAILY@179905/15/23 05/15/23 History Gabapentin [Neurontin] 300 mg PO HS@209905/15/23 05/15/23 History Guaifenesin/Dextromethorphan 10 ml PO Q4H PRN 05/15/23 05/15/23 History [Guaifenesin-Dm 100-10 mg/5 ml] Insulin Lispro [humaLOG Kwikpen] See Protocol SQ QID@08,12,17,21 05/15/23 05/15/23 History L.acidoph,Paracasei, B.lactis 1 cap PO DAILY@0900 05/15/23 05/15/23 History [Probiotic] Potassium Citrate [Urocit-K] 30 meq PO BID@0900,2100 05/15/23 05/15/23 History Rivaroxaban [Xarelto] 15 mg PO DAILY@1700 05/15/23 05/15/23 History Allergies Allergy/AdvReac Type Severity Reaction Status Date / Time grass pollen Allergy Sinus Verified 05/15/23 08:25 latex Allergy Rash/Hives Verified 05/15/23 08:25 Milk Containing Products Allergy Unknown Verified 05/15/23 08:25 (Dairy) [Dairy] mold Allergy Sinus Verified 05/15/23 08:25 pollen extracts Allergy Sinus Verified 05/15/23 08:25 tree and shrub pollen Allergy Sinus Verified 05/15/23 08:25 Tetracyclines AdvReac YEAST Verified 05/15/23 08:25 INFECTION- PREFERS NOT TO TAKE tramadol AdvReac Unknown Verified 05/15/23 08:25 ENVIRONMENTAL ALLERGIES Allergy SINUS Uncoded 05/15/23 08:25 SYMPTOMS-GRASS TREES,DUST,POLLENS,MOLD Surgical - Exam Vital Signs Temp Pulse Resp BP Pulse Ox 97.6 F 69 20 128/88 99 05/15/23 04:37 05/15/23 04:37 05/15/23 04:37 05/15/23 04:37 05/15/23 04:37 - General well developed, well nourished, no distress, obese - Respiratory normal respiratory effort - Abdomen Abdomen: soft, tender (Mild left lower quadrant tenderness), no guarding, no rigid, no rebound Results - Labs 05/17/23 07:22 05/17/23 07:22 Abnormal Lab Results - Last 24 Hours (Table) 05/16/23 05/16/23 05/16/23 Range/Units 06:13 06:13 06:13 RBC 2.80 L (4.10-5.20) X 10*6/uL Hgb 7.4 L (12.0-15.0) g/dL Hct 25.7 L (37.2-46.3) % MCH 26.4 L (27.0-32.0) pg MCHC 28.8 L (32.0-37.0) g/dL RDW 17.2 H (11.5-14.5) % MPV 9.3 L (9.5-12.2) FL Immature Gran # 0.05 H (0.00-0.04) X 10*3/uL Eosinophils # 0.36 H (0.04-0.35) X 10*3/uL Chloride (98-107) mmol/L Carbon Dioxide 35.6 H (21.6-31.8) mmol/L BUN (7-17) mg/dL Est GFR (CKD-EPI) 55 L (>=60) Glucose 137 H (70-110) mg/dL POC Glucose (mg/dL) (70-110) mg/dL Hemoglobin A1c 6.5 H (<=6.0) % Calcium 8.3 L (8.7-10.3) mg/dL 05/16/23 05/16/23 05/16/23 Range/Units 10:43 16:58 20:23 RBC (4.10-5.20) X 10*6/uL Hgb (12.0-15.0) g/dL Hct (37.2-46.3) % MCH (27.0-32.0) pg MCHC (32.0-37.0) g/dL RDW (11.5-14.5) % MPV (9.5-12.2) FL Immature Gran # (0.00-0.04) X 10*3/uL Eosinophils # (0.04-0.35) X 10*3/uL Chloride (98-107) mmol/L Carbon Dioxide (21.6-31.8) mmol/L BUN (7-17) mg/dL Est GFR (CKD-EPI) (>=60) Glucose (70-110) mg/dL POC Glucose (mg/dL) 201 H 205 H 117 H (70-110) mg/dL Hemoglobin A1c (<=6.0) % Calcium (8.7-10.3) mg/dL 05/17/23 05/17/23 05/17/23 Range/Units 05:50 07:22 07:22 RBC 2.86 L (4.10-5.20) X 10*6/uL Hgb 7.8 L (12.0-15.0) g/dL Hct 25.3 L (37.2-46.3) % MCH (27.0-32.0) pg MCHC 30.9 L (32.0-37.0) g/dL RDW 17.1 H (11.5-14.5) % MPV (9.5-12.2) FL Immature Gran # (0.00-0.04) X 10*3/uL Eosinophils # (0.04-0.35) X 10*3/uL Chloride 95 L (98-107) mmol/L Carbon Dioxide 41 H* (21.6-31.8) mmol/L BUN 21 H (7-17) mg/dL Est GFR (CKD-EPI) (>=60) Glucose 104 H (70-110) mg/dL POC Glucose (mg/dL) 120 H (70-110) mg/dL Hemoglobin A1c (<=6.0) % Calcium 8.0 L (8.7-10.3) mg/dL Microbiology - Last 24 Hours (Table) 05/15/23 15:33 Blood Culture - Preliminary Blood 05/15/23 11:56 Urine Culture - Final Urine,Voided Diabetes panel 05/16/23 05/16/23 05/17/23 Range/Units 06:13 06:13 07:22 Sodium 139 138 (135-145) mmol/L Potassium 4.2 3.7 (3.5-5.5) mmol/L Chloride 96 95 L (96-109) mmol/L Carbon Dioxide 35.6 H 41 H* (21.6-31.8) mmol/L BUN 20.4 21 H (9.0-27.0) mg/dL Creatinine 1.1 0.87 (0.6-1.5) mg/dL Glucose 137 H 104 H (70-110) mg/dL Hemoglobin A1c 6.5 H (<=6.0) % Calcium 8.3 L 8.0 L (8.7-10.3) mg/dL Calcium panel 05/16/23 05/17/23 Range/Units 06:13 07:22 Calcium 8.3 L 8.0 L (8.7-10.3) mg/dL Pituitary panel 05/16/23 05/17/23 Range/Units 06:13 07:22 Sodium 139 138 (135-145) mmol/L Potassium 4.2 3.7 (3.5-5.5) mmol/L Chloride 96 95 L (96-109) mmol/L Carbon Dioxide 35.6 H 41 H* (21.6-31.8) mmol/L BUN 20.4 21 H (9.0-27.0) mg/dL Creatinine 1.1 0.87 (0.6-1.5) mg/dL Glucose 137 H 104 H (70-110) mg/dL Calcium 8.3 L 8.0 L (8.7-10.3) mg/dL Adrenal panel 05/16/23 05/17/23 Range/Units 06:13 07:22 Sodium 139 138 (135-145) mmol/L Potassium 4.2 3.7 (3.5-5.5) mmol/L Chloride 96 95 L (96-109) mmol/L Carbon Dioxide 35.6 H 41 H* (21.6-31.8) mmol/L BUN 20.4 21 H (9.0-27.0) mg/dL Creatinine 1.1 0.87 (0.6-1.5) mg/dL Glucose 137 H 104 H (70-110) mg/dL Calcium 8.3 L 8.0 L (8.7-10.3) mg/dL - Imaging CT scan - abdomen: report reviewed, image reviewed Assessment and Plan (1) Calculus of kidney Current Visit: Yes Status: Acute Code(s): N20.0 - CALCULUS OF KIDNEY SNOMED Code(s): 32167306 (2) UTI (urinary tract infection) Current Visit: No Status: Acute Code(s): N39.0 - URINARY TRACT INFECTION, SITE NOT SPECIFIED SNOMED Code(s): 37529463 Plan: Urine culture obtained at the time of admission shows mixed organisms. A urine culture obtained 2 weeks ago showed Pseudomonas. Previous cultures have shown various bacteria including Proteus. I suspect that the patient has struvite renal calculi. If she is having hematuria, it is likely due to a combination of infection, urinary calculi, and stent irritation. She is currently receiving IV antibiotics and will be discharged on appropriate antibiotics. I have stressed to her the need to follow-up with Dr. Walker so that her stent and renal calculi can be removed. Until this is done, she will continue to have problems similar to what she is currently experiencing. This should be done in the very near future to prevent stent calcification, which may further complicate her situation. This was made very clear to her. Please notify us if we can be of any further assistance. Time with Patient: Greater than 30
--- NOTE | 2023-05-17 12:59 | P.PN ---
Subjective Progress Note Date: 05/17/23 Principal diagnosis: Reason for follow-up is a urinary tract infection Patient is a 67-year-old female with a past medical history significant for atrial fibrillation asthma coronary artery disease heart failure diabetes mellitus fibromyalgia hypertension hyperlipidemia patient was sent to the ER from the local long term concerning for abnormal lab, workup in the ED she was positive UA patient was having some urinary symptoms concerning for UTI prompting this infectious disease consultation. On today's evaluation that is 05/17/2023, the patient denies any fever or any chills, patient is breathing comfortably on 2 L nasal cannula oxygen, the patient denies chest pain has been having some cough but no sputum production, patient denies abdominal pain, no nausea vomiting or diarrhea. Patient white count is 6.3, creatinine 0.87 blood cultures pending urine n egative so far Objective - Vital Signs Vital signs: Vital Signs Temp 98.3 F 05/17/23 07:12 Pulse 79 05/17/23 07:12 Resp 18 05/17/23 07:12 BP 114/58 05/17/23 07:12 Pulse Ox 97 05/17/23 07:12 FiO2 Intake & Output 05/16/23 05/17/23 05/17/23 18:59 06:59 18:59 Output Total 1725 750 800 Balance -1725 -750 -800 Weight 119.5 kg Output: Urine 1725 750 800 Other: Voiding Method External Catheter External Catheter External Catheter # Bowel Movements 1 1 - Exam GENERAL DESCRIPTION: An elderly female lying in bed in no distress RESPIRATORY SYSTEM: Unlabored breathing , decreased breath sounds at bases HEART: S1 S2 regular rate and rhythm , ABDOMEN: Soft , no tenderness EXTREMITIES: No edema feet - Labs CBC & Chem 7: 05/17/23 07:22 05/17/23 07:22 Labs: Abnormal Lab Results - Last 24 Hours (Table) 05/16/23 05/16/23 05/17/23 Range/Units 16:58 20:23 05:50 RBC (3.80-5.40) m/uL Hgb (11.4-16.0) gm/dL Hct (34.0-46.0) % MCHC (31.0-37.0) g/dL RDW (11.5-15.5) % Chloride (98-107) mmol/L Carbon Dioxide (22-30) mmol/L BUN (7-17) mg/dL Glucose (74-99) mg/dL POC Glucose (mg/dL) 205 H 117 H 120 H (70-110) mg/dL Calcium (8.4-10.2) mg/dL 05/17/23 05/17/23 05/17/23 Range/Units 07:22 07:22 11:12 RBC 2.86 L (3.80-5.40) m/uL Hgb 7.8 L (11.4-16.0) gm/dL Hct 25.3 L (34.0-46.0) % MCHC 30.9 L (31.0-37.0) g/dL RDW 17.1 H (11.5-15.5) % Chloride 95 L (98-107) mmol/L Carbon Dioxide 41 H* (22-30) mmol/L BUN 21 H (7-17) mg/dL Glucose 104 H (74-99) mg/dL POC Glucose (mg/dL) 235 H (70-110) mg/dL Calcium 8.0 L (8.4-10.2) mg/dL Microbiology - Last 24 Hours (Table) 05/15/23 15:33 Blood Culture - Preliminary Blood 05/15/23 11:56 Urine Culture - Final Urine,Voided Assessment and Plan (1) UTI (urinary tract infection) Current Visit: No Status: Acute Code(s): N39.0 - URINARY TRACT INFECTION, SITE NOT SPECIFIED SNOMED Code(s): 03026682 Plan: 1patient presented hospital with abnormal lab possible misinterpretation has a hemoglobin was 8 instead of 3.4 on presentation to the hospital patient did have urinary symptoms positive UA concerning for a symptomatic urinary tract infection with last urine culture positive for Pseudomonas aeruginosa 2 weeks ago 2-patient is afebrile white count is normal blood cultures pending urine is negative so far, patient to continue with cefepime while waiting for the culture to finalize Dictation was produced using [employer] dictation software. please excuse any grammatical, word or spelling errors. Time with Patient: Less than 30
--- NOTE | 2023-05-17 14:34 | P.PN ---
Subjective Progress Note Date: 05/17/23 SUBJECTIVE: No new cardiac symptoms, hemoglobin stable at 7.8. Hemodynamically stable, BP 157/70, heart rate 88, sinus rhythm on telemetry today This is a pleasant 67-year-old female patient who follows in the office with Dr. Taylor. She has a past medical history of CAD with unsuccessful attempt at stenting in 2017 at which time she was seen and evaluated by cardiothoracic surgery and was felt to be high risk for CABG and therefore recommended maximal medical therapy. Also has a history of ischemic cardiomyopathy, diabetes, atrial fibrillation, hyperlipidemia and morbid obesity. We were asked to see the patient in consultation for elevated troponins that came back at 2.03, 1.26 and 0.795. She was initially sent to the ER after labs showed a hemoglobin of 3 point 5 repeat hemoglobin performed here revealed hemoglobin of 8.0. She had no chest discomfort prior to admission. She denied any shortness of breath. She does complain of occasional fluttering in her chest and feeling her heart racing at times. She has been maintained on Xarelto outpatient but that is on hold due to anemia. On examination she is resting comfortably in bed. Continues to complain of racing heart at times. Denies any shortness of breath or edema. Echocardiogram with Doppler study was performed and showed ejection fraction 50 to 55%, mild MR and mild to moderate TR. PHYSICAL EXAMINATION Vital signs reviewed. Head: Normocephalic. Eyes: Sclerae nonicteric. Neck: Brisk carotid upstroke, no jugular venous distention. Lungs: Clear to auscultation. Heart: Regular rate and rhythm, S1-S2, no S3, no murmur or rub. Abdomen: Soft nontender, bowel sounds present, Extremities: 1+ pitting edema bilateral extremity Neuro: Alert, oriented, no focal neurological deficits. Detailed neuro exam was not performed. Assessment: Anemia, appears stable with hemoglobin in the 8's Hemoglobin 3.5, Suspect lab error Non-STEMI Coronary artery disease with previous PTCA Status post unsuccessful stenting of LAD and RCA, 2017 Mild ischemic cardiomyopathy, EF 45% Paroxysmal atrial fibrillation, on Xarelto outpatient Hyperlipidemia Diabetes Morbid obesity History of EGD and colonoscopy, 2022 Last echo showed preserved EF 50 to 55% Plan: Plan for EGD colonoscopy on Friday. Hemoglobin is stable at 8. Most likely the hemoglobin of 3.5 was a lab error Continue aspirin, atorvastatin IV Lasix 40 mg twice daily, Imdur 30 mg daily, metoprolol succinate 50 mg daily SLIP COVER ESTIMATOR note has been reviewed, I agree with a documented findings and plan of care. Patient was seen and examined. Jayson Harden MD, FACC, RPVI Thank you for allowing [facility] to participate in this patient's care. Please contact us in case of any followup questions. Objective - Vital Signs Vital signs: Vital Signs Temp 98 F 05/17/23 13:01 Pulse 75 05/17/23 13:01 Resp 17 05/17/23 13:01 BP 157/70 05/17/23 13:01 Pulse Ox 98 05/17/23 13:01 FiO2 Intake & Output 05/16/23 05/17/23 05/17/23 18:59 06:59 18:59 Output Total 1725 750 800 Balance -1725 -750 -800 Weight 119.5 kg Output: Urine 1725 750 800 Other: Voiding Method External Catheter External Catheter External Catheter # Bowel Movements 1 1 - Labs CBC & Chem 7: 05/17/23 07:22 05/17/23 07:22 Labs: Abnormal Lab Results - Last 24 Hours (Table) 05/16/23 05/16/23 05/17/23 Range/Units 16:58 20:23 05:50 RBC (3.80-5.40) m/uL Hgb (11.4-16.0) gm/dL Hct (34.0-46.0) % MCHC (31.0-37.0) g/dL RDW (11.5-15.5) % Chloride (98-107) mmol/L Carbon Dioxide (22-30) mmol/L BUN (7-17) mg/dL Glucose (74-99) mg/dL POC Glucose (mg/dL) 205 H 117 H 120 H (70-110) mg/dL Calcium (8.4-10.2) mg/dL 05/17/23 05/17/23 05/17/23 Range/Units 07:22 07:22 11:12 RBC 2.86 L (3.80-5.40) m/uL Hgb 7.8 L (11.4-16.0) gm/dL Hct 25.3 L (34.0-46.0) % MCHC 30.9 L (31.0-37.0) g/dL RDW 17.1 H (11.5-15.5) % Chloride 95 L (98-107) mmol/L Carbon Dioxide 41 H* (22-30) mmol/L BUN 21 H (7-17) mg/dL Glucose 104 H (74-99) mg/dL POC Glucose (mg/dL) 235 H (70-110) mg/dL Calcium 8.0 L (8.4-10.2) mg/dL Microbiology - Last 24 Hours (Table) 05/15/23 15:33 Blood Culture - Preliminary Blood
[2023-05-17 16:28] LABS: Glucose,Whole Blood 157 mg/dL (70-110)
--- NOTE | 2023-05-17 18:23 | P.PN ---
Subjective This is a pleasant 66 years old female with multiple medical problems as below Atrial Fibrillation, Asthma, Coronary Artery Disease, Heart Failure, CVA/TIA, Diabetes Mellitus, Deep Vein Thrombosis , Fibromyalgia, Hyperlipidemia, Hypertension, Osteoarthritis (OA), Pulmonary Embolus (PE), hypothyroidism, constipation, chronic kidney disease stage III, neuropathy, depression Patient's comes from [facility], she is bedbound for 3 months as she states. She was sent because of low hemoglobin at 3.5. Patient states that she has bleeding all the time for the last 7 years, she claims she bleeds every day, she thinks that comes from her vaginal, but she is not sure, she says each time she P's she has bleeding but she wears diapers so she is not sure. She states that yesterday she has more bleeding so they got a repeat hemoglobin at night 10-11 PM, results came back 3:00 in the morning as 3.5 so they sent her to the hospital. Repeat hemoglobin in the hospital show hemoglobin of 8.0. She is complaining also from mild left upper quadrant abdominal pain about 5/10, nonradiating, not a specific, no relieving or precipitating factors No vomiting or diarrhea. On reviewing the records she had a normal EGD and colonoscopy with bed preparation on 12/27/2022, she has another negative colonoscopy with bouts preparation on 03/06/23 Also patient has right upper extremity PICC line, patient states because she has dysuria and it was placed at [facility] (there is a date on the PICC line stating it is from 05/05/23) , currently patient still complaining of from dysuria Patient currently vitals are stable Hemoglobin is stable at 8, PCO2 is 40, rest of BMP, CBC, INR and liver enzymes were unremarkable Troponin is 2.0 and cleared by senior data quality analyst Lactic acid 1.1 She has positive occult blood in stool 05/16/223 Patient awake alert, does not look in distress, no confusion. No specific complaints. She is looking generally weak She complains from mild abdominal tenderness which are different area of the lower abdomen most likely related to her constipation seen on CAT scan of the abdomen. Also there is evidence of kidney stones and ureteral stent, when I asked the patient she states that it is therefore 2 years bouts she claims she saw her uro logist few months ago. She has right upper extremity PICC line which is working and she's been complaining of from dysuria but urine culture is going to [place] however this might be affected by the fact she was on Rocephin prior to hospitalization. Blood culture are still pending. Infectious disease of the case and currently she is on IV supplements started yesterday. The consult urologist for further recommendation regarding her stones and ureteral stents. No evidence of GI bleed, she has little bowel movement this morning which was brown. However anemia workup showing evidence of iron deficiency anemia, we are not going to start iron pills because of her constipation a problem. Her hemoglobin is a stable low at 9.1 today. Surgery team of the case with the plan for EGD/colonoscopy on Friday Pulse shunt also on IV Lasix as there is some evidence of fluid overload, creatinine stable at 0.8 Repeat creatinine from today is pending Xarelto on hold until after the procedure 05/17/2023 Patient hemoglobin 7.8. xareto remains on hold. She is on Protonix with plan for EGD/colonoscopy on Friday IV Lasix was switched to oral Lasix Urologist input is appreciated, patient with multiple renal calculi and ureteral stent. She needs to follow up with her urologist Dr. Walker as soon as possible to address problems of her stent and kidney stones. She remains on cefepime for her complicated urinary tract infection Objective - Vital Signs Vital signs: Vital Signs Temp 98.3 F 05/17/23 07:12 Pulse 79 05/17/23 07:12 Resp 18 05/17/23 07:12 BP 114/58 05/17/23 07:12 Pulse Ox 97 05/17/23 07:12 FiO2 Intake & Output 05/16/23 05/17/23 05/17/23 18:59 06:59 18:59 Output Total 1725 750 800 Balance -1725 -750 -800 Weight 119.5 kg Output: Urine 1725 750 800 Other: Voiding Method External Catheter External Catheter External Catheter # Bowel Movements 1 1 - Exam -GENERAL: The patient is alert and oriented x3, not in any acute distress. Morbidly obese, bedbound HEENT: Pupils are round and equally reacting to light. EOMI. No scleral icterus. No conjunctival pallor. Normocephalic, atraumatic. No pharyngeal erythema. No thyromegaly. CARDIOVASCULAR: S1 and S2 present. No murmurs, rubs, or gallops. PULMONARY: Chest is clear to auscultation, no wheezing , no crackles. -ABDOMEN: Soft, LUQ tenderness, no rebound tenderness mildly distended , normoactive bowel sounds. No palpable organomegaly. MUSCULOSKELETAL: No joint swelling or deformity. -EXTREMITIES: No cyanosis, clubbing, or pedal edema. Right upper extremity PICC line NEUROLOGICAL: Gross neurological examination did not reveal any focal deficits. SKIN: No rashes. no petechiae. - Labs CBC & Chem 7: 05/17/23 07:22 05/17/23 07:22 Labs: Abnormal Lab Results - Last 24 Hours (Table) 05/16/23 05/16/23 05/17/23 Range/Units 16:58 20:23 05:50 RBC (3.80-5.40) m/uL Hgb (11.4-16.0) gm/dL Hct (34.0-46.0) % MCHC (31.0-37.0) g/dL RDW (11.5-15.5) % Chloride (98-107) mmol/L Carbon Dioxide (22-30) mmol/L BUN (7-17) mg/dL Glucose (74-99) mg/dL POC Glucose (mg/dL) 205 H 117 H 120 H (70-110) mg/dL Calcium (8.4-10.2) mg/dL 05/17/23 05/17/23 05/17/23 Range/Units 07:22 07:22 11:12 RBC 2.86 L (3.80-5.40) m/uL Hgb 7.8 L (11.4-16.0) gm/dL Hct 25.3 L (34.0-46.0) % MCHC 30.9 L (31.0-37.0) g/dL RDW 17.1 H (11.5-15.5) % Chloride 95 L (98-107) mmol/L Carbon Dioxide 41 H* (22-30) mmol/L BUN 21 H (7-17) mg/dL Glucose 104 H (74-99) mg/dL POC Glucose (mg/dL) 235 H (70-110) mg/dL Calcium 8.0 L (8.4-10.2) mg/dL Microbiology - Last 24 Hours (Table) 05/15/23 15:33 Blood Culture - Preliminary Blood Assessment and Plan Assessment: Anemia, secondary to iron deficiency. Monitor for Recurrent GI bleeding is suspected, urinary tract infection, recently treated with PICC line at [facility] Chronic atrial fibrillation on xarelto at home elevated troponin, cleared by senior data quality analyst Patient has history of right ureter stent and stone History of asthma And COPD as per patient, currently not active issue or exacerbation Chronic hypoxic respiratory failure and 2-3 L of oxygen at home History of coronary artery disease status post stent Chronic heart failure History of CVA/TIA Diabetes mellitus Hypertension Hyperlipidemia History of osteoarthritis, with moderate to severe right neural foraminal santos nosis at L5-S1 Hypothyroidism history of fibromyalgia History of DVT and pulmonary embolism Chronic kidney disease stage III Neuropathy History of depression Morbid obesity with BMI of 45.7 Plan: Monitor hemoglobin. Plan for EGD/colonoscopy on Friday Surgical team consult Give more laxative for constipation Check blood culture. Continue with antibiotic as per ID team, currently on cefepime Consults infectious disease team Hold xarelto till cleared by surgery Cardiology team consult Switch IV Lasix to oral dose Urologist in consult for stent management and kidney stone. Patient will need to follow up with her urologist Dr. Walker soon after discharge Continue same treatment. Continue with symptomatic treatment. Resume home medication. Monitor labs and vitals. DVT and GI prophylaxis. Further recommendations as per clinical course of the patient DVT prophylaxis: hold xarelto GI Prophylaxis: Pepcid PT/OT: Pending Prognosis is guarded
[2023-05-17 20:01] LABS: Glucose,Whole Blood 137 mg/dL (70-110)
--- NOTE | 2023-05-17 22:36 | P.PN ---
Progress Note - Text Recheck Hgb in AM and prep Friday for colon exam on Friday.
[2023-05-18] MEDS: LACTATED RINGERS 1,000 ML IV SCH (00:37)
[2023-05-18 06:02] LABS: Glucose,Whole Blood 114 mg/dL (70-110)
[2023-05-18 06:39] LABS: Anisocytosis Slight; Basophils % (A) 0 %; Eosinophils # (A) 0.3 k/uL (0-0.7); Eosinophils % (A) 6 %; HCT 27.1 % (34.0-46.0); HGB 8.1 gm/dL (11.4-16.0); Hypochromasia Marked; Lymphocytes # (A) 1.6 k/uL (1.0-4.8); Lymphocytes % (A) 25 %; MCH 26.2 pg (25.0-35.0); MCHC 29.7 g/dL (31.0-37.0); MCV 88.2 fL (80.0-100.0); Monocytes # (A) 0.4 k/uL (0-1.0); Monocytes % (A) 6 %; Neutrophils # (A) 3.7 k/uL (1.3-7.7); Neutrophils % (A) 60 %; Platelet Count 252 k/uL (150-450); Poikilocytosis Slight; RBC 3.08 m/uL (3.80-5.40); RDW 17.5 % (11.5-15.5); WBC 6.2 k/uL (3.8-10.6)
[2023-05-18] MEDS: PEG 3350 (236 GM/BTL) + LYTES 4,000 ML BOTTLE PO ONE (09:37)
[2023-05-18] MEDS: FUROSEMIDE 40 MG TAB PO SCH (09:38)
--- NOTE | 2023-05-18 11:31 | P.PN ---
Subjective Progress Note Date: 05/18/23 Patient main stable. She has no significant new complaints. On exam vital signs appear stable. Abdomen is soft. Patient scheduled for endoscopy in the a.m. Objective - Vital Signs Vital signs: Vital Signs Temp 98.8 F 05/18/23 08:10 Pulse 61 05/18/23 08:10 Resp 19 05/18/23 08:10 BP 120/57 05/18/23 08:10 Pulse Ox 98 05/18/23 08:10 FiO2 Intake & Output 05/17/23 05/18/23 05/18/23 18:59 06:59 18:59 Output Total 800 Balance -800 Weight 114.5 kg Output: Urine 800 Other: Voiding Method External Catheter External Catheter # Voids 2 # Bowel Movements 1 - Labs CBC & Chem 7: 05/18/23 06:14 05/17/23 07:22 Labs: Abnormal Lab Results - Last 24 Hours (Table) 05/17/23 05/17/23 05/18/23 Range/Units 16:27 19:54 06:01 RBC (3.80-5.40) m/uL Hgb (11.4-16.0) gm/dL Hct (34.0-46.0) % MCHC (31.0-37.0) g/dL RDW (11.5-15.5) % POC Glucose (mg/dL) 157 H 137 H 114 H (70-110) mg/dL 05/18/23 Range/Units 06:14 RBC 3.08 L (3.80-5.40) m/uL Hgb 8.1 L (11.4-16.0) gm/dL Hct 27.1 L (34.0-46.0) % MCHC 29.7 L (31.0-37.0) g/dL RDW 17.5 H (11.5-15.5) % POC Glucose (mg/dL) (70-110) mg/dL Microbiology - Last 24 Hours (Table) 05/15/23 15:33 Blood Culture - Preliminary Blood
[2023-05-18 11:36] LABS: Glucose,Whole Blood 159 mg/dL (70-110)
--- NOTE | 2023-05-18 13:00 | P.PN ---
Subjective Progress Note Date: 05/18/23 Principal diagnosis: Reason for follow-up is a urinary tract infection Patient is a 67-year-old female with a past medical history significant for atrial fibrillation asthma coronary artery disease heart failure diabetes mellitus fibromyalgia hypertension hyperlipidemia patient was sent to the ER from the local half-way concerning for abnormal lab, workup in the ED she was positive UA patient was having some urinary symptoms concerning for UTI prompting this infectious disease consultation. On today's evaluation that is 05/18/2023,the patient remains to be afebrile, patient is on 2 L nasal cannula supplemental oxygen patient is sleepy today and did not answer any question no vomiting diarrhea or any other changes reported by the nursing staff. Patient white count was 6.2 creatinine 0.87 blood cultures pending repeat urine so far negative Objective - Vital Signs Vital signs: Vital Signs Temp 98.8 F 05/18/23 08:10 Pulse 61 05/18/23 08:10 Resp 19 05/18/23 08:10 BP 120/57 05/18/23 08:10 Pulse Ox 98 05/18/23 08:10 FiO2 Intake & Output 05/17/23 05/18/23 05/18/23 18:59 06:59 18:59 Output Total 800 Balance -800 Weight 114.5 kg Output: Urine 800 Other: Voiding Method External Catheter External Catheter External Catheter # Voids 2 # Bowel Movements 1 - Exam GENERAL DESCRIPTION: An elderly female lying in bed in no distress RESPIRATORY SYSTEM: Unlabored breathing , decreased breath sounds at bases HEART: S1 S2 regular rate and rhythm , ABDOMEN: Soft , no tenderness EXTREMITIES: No edema feet - Labs CBC & Chem 7: 05/18/23 06:14 05/17/23 07:22 Labs: Abnormal Lab Results - Last 24 Hours (Table) 05/17/23 05/17/23 05/18/23 Range/Units 16:27 19:54 06:01 RBC (3.80-5.40) m/uL Hgb (11.4-16.0) gm/dL Hct (34.0-46.0) % MCHC (31.0-37.0) g/dL RDW (11.5-15.5) % POC Glucose (mg/dL) 157 H 137 H 114 H (70-110) mg/dL 05/18/23 05/18/23 Range/Units 06:14 11:34 RBC 3.08 L (3.80-5.40) m/uL Hgb 8.1 L (11.4-16.0) gm/dL Hct 27.1 L (34.0-46.0) % MCHC 29.7 L (31.0-37.0) g/dL RDW 17.5 H (11.5-15.5) % POC Glucose (mg/dL) 159 H (70-110) mg/dL Microbiology - Last 24 Hours (Table) 05/15/23 15:33 Blood Culture - Preliminary Blood Assessment and Plan (1) UTI (urinary tract infection) Current Visit: No Status: Acute Code(s): N39.0 - URINARY TRACT INFECTION, SITE NOT SPECIFIED SNOMED Code(s): 81506067 Plan: 1patient presented hospital with abnormal lab possible misinterpretation has a hemoglobin was 8 instead of 3.4 on presentation to the hospital patient did have urinary symptoms positive UA concerning for a symptomatic urinary tract infection with last urine culture positive for Pseudomonas aeruginosa 2 weeks ago 2-patient is afebrile white count is normal blood cultures pending however urine culture has been negative so far we will go ahead and discontinue cefepime and monitor the patient closely off antibiotic therapy Dictation was produced using [employer] dictation software. please excuse any gram matical, word or spelling errors. Time with Patient: Less than 30
--- NOTE | 2023-05-18 14:44 | P.PN ---
Subjective This is a pleasant 66 years old female with multiple medical problems as below Atrial Fibrillation, Asthma, Coronary Artery Disease, Heart Failure, CVA/TIA, Diabetes Mellitus, Deep Vein Thrombosis , Fibromyalgia, Hyperlipidemia, Hypertension, Osteoarthritis (OA), Pulmonary Embolus (PE), hypothyroidism, constipation, chronic kidney disease stage III, neuropathy, depression Patient's comes from [facility], she is bedbound for 3 months as she states. She was sent because of low hemoglobin at 3.5. Patient states that she has bleeding all the time for the last 7 years, she claims she bleeds every day, she thinks that comes from her vaginal, but she is not sure, she says each time she P's she has bleeding but she wears diapers so she is not sure. She states that yesterday she has more bleeding so they got a repeat hemoglobin at night 10-11 PM, results came back 3:00 in the morning as 3.5 so they sent her to the hospital. Repeat hemoglobin in the hospital show hemoglobin of 8.0. She is complaining also from mild left upper quadrant abdominal pain about 5/10, nonradiating, not a specific, no relieving or precipitating factors No vomiting or diarrhea. On reviewing the records she had a normal EGD and colonoscopy with bed preparation on 12/27/2022, she has another negative colonoscopy with bouts preparation on 03/06/23 Also patient has right upper extremity PICC line, patient states because she has dysuria and it was placed at [facility] (there is a date on the PICC line stating it is from 05/05/23) , currently patient still complaining of from dysuria Patient currently vitals are stable Hemoglobin is stable at 8, PCO2 is 40, rest of BMP, CBC, INR and liver enzymes were unremarkable Troponin is 2.0 and cleared by development chemist Lactic acid 1.1 She has positive occult blood in stool 05/16/223 Patient awake alert, does not look in distress, no confusion. No specific complaints. She is looking generally weak She complains from mild abdominal tenderness which are different area of the lower abdomen most likely related to her constipation seen on CAT scan of the abdomen. Also there is evidence of kidney stones and ureteral stent, when I asked the patient she states that it is therefore 2 years bouts she claims she saw her uro logist few months ago. She has right upper extremity PICC line which is working and she's been complaining of from dysuria but urine culture is going to [place] however this might be affected by the fact she was on Rocephin prior to hospitalization. Blood culture are still pending. Infectious disease of the case and currently she is on IV supplements started yesterday. The consult urologist for further recommendation regarding her stones and ureteral stents. No evidence of GI bleed, she has little bowel movement this morning which was brown. However anemia workup showing evidence of iron deficiency anemia, we are not going to start iron pills because of her constipation a problem. Her hemoglobin is a stable low at 9.1 today. Surgery team of the case with the plan for EGD/colonoscopy on Friday Pulse shunt also on IV Lasix as there is some evidence of fluid overload, creatinine stable at 0.8 Repeat creatinine from today is pending Xarelto on hold until after the procedure 05/17/2023 Patient hemoglobin 7.8. xareto remains on hold. She is on Protonix with plan for EGD/colonoscopy on Friday IV Lasix was switched to oral Lasix Urologist input is appreciated, patient with multiple renal calculi and ureteral stent. She needs to follow up with her urologist Dr. Walker as soon as possible to address problems of her stent and kidney stones. She remains on cefepime for her complicated urinary tract infection 05/18/2023 Patient clinically same as yesterday. She is awake and alert at baseline, somewhat lethargic Her antibiotics was discontinued. We will keep monitoring while off antibiotic per ID team recommendation Surgery team on the case, her abdomen markedly distended. CT of the abdomen reviewed. Patient going for colonoscopy/EGD tomorrow. xarelto on hold till cleared by surgery team Urology input is appreciated, I stressed to the patient and the importance of follow-up with her urologist Dr. Buitrago for stent and stone removal soon after discharge within one week and she verbalized understanding and acceptance Patient is medically stable, she is some risk from, the procedure however there is no absolute contraindication and can proceed with colonoscopy tomorrow Active Medications Generic Name Dose Route Start Last Admin Trade Name Freq PRN Reason Stop Dose Admin Acetaminophen 1,000 mg 05/15/23 19:02 Acetaminophen Tab 500 Mg Tab PO Q6H PRN Pain Allopurinol 100 mg 05/16/23 09:00 05/18/23 09:38 Allopurinol 100 Mg Tab PO 100 mg DAILY@09 YOANA Administration Ascorbic Acid 500 mg 05/16/23 09:00 05/18/23 09:38 Ascorbic Acid 500 Mg Tab PO 500 mg DAILY@899 YOANA Administration Aspirin 81 mg 05/16/23 12:45 05/18/23 09:39 Aspirin 81 Mg PO 81 mg DAILY YOANA Administration Atorvastatin Calcium 80 mg 05/15/23 21:00 05/17/23 20:44 Atorvastatin 80 Mg Tab PO 80 mg HS@2099 YOANA Administration Benzocaine/Menthol 1 each 05/15/23 19:02 Benzocaine/Menthol Lozeng 1 Each Lozenge MUCOUS MEM Q4HR PRN Sore Throat Bisacodyl 10 mg 05/15/23 15:15 05/18/23 09:39 Bisacodyl 10 Mg Supp RECTAL 05/18/23 15:16 10 mg DAILY YOANA Administration Buspirone HCl 10 mg 05/15/23 21:00 05/18/23 09:38 Buspirone Hcl 10 Mg Tab PO 10 mg BID@899,2099 YOANA Administration Cyanocobalamin 1,000 mcg 05/16/23 09:00 05/18/23 09:38 Cyanocobalamin 500 Mcg Tab PO 1,000 mcg DAILY@899 YOANA Administration Dextrose/Water 25 ml 05/15/23 19:04 Dextrose 50% Syringe 50 Ml IVP PER PROTOCOL PRN Hypoglycemia Protocol Dextrose/Water 50 ml 05/15/23 19:04 Dextrose 50% Syringe 50 Ml IVP PER PROTOCOL PRN Hypoglycemia Protocol Duloxetine HCl 30 mg 05/15/23 21:00 05/18/23 09:38 Duloxetine Hcl 30 Mg Capsule.Dr PO 30 mg BID@899,2099 YOANA Administration Furosemide 40 mg 05/18/23 09:00 05/18/23 09:38 Furosemide 40 Mg Tab PO 40 mg DAILY YOANA Administration Gabapentin 300 mg 05/15/23 21:00 05/17/23 20:44 Gabapentin 300 Mg Cap PO 300 mg HS@2099 YOANA Administration Guaifenesin/Dextromethorphan 10 ml 05/15/23 19:02 Guaifenesin-Dm 100-10mg/5ml 10 Ml Cup PO Q4H PRN Cough Lactated Ringer's 1,000 mls @ 20 mls/hr 05/17/23 11:39 05/18/23 13:28 Lactated Ringers IV Not Given .Q24H [facility] Insulin Aspart 0 unit 05/15/23 21:00 05/18/23 13:28 Insulin Aspart (Novolog) 100 Unit/Ml Vial SQ Not Given ACHS [facility] Protocol Insulin Detemir 15 unit 05/15/23 21:00 05/17/23 20:44 Insulin Detemir (Levemir) 100 Unit/Ml Syr SQ 15 unit HS@2100 [facility] Administration Isosorbide Mononitrate 30 mg 05/16/23 09:00 05/18/23 09:38 Isosorbide Mononitrate Er 30 Mg Tab.Er.24h PO 30 mg DAILY@09 [facility] Administration Lactobacillus Acidophilus 1 each 05/16/23 09:00 05/18/23 09:38 Lactobacillus Acidophilus/Pect 1 Each Capsule PO 1 each DAILY@09 [facility] Administration Lactulose 30 gm 05/16/23 21:00 05/18/23 09:37 Lactulose 20 Gm/30 Ml Cup PO 30 gm BID [facility] Administration Levothyroxine Sodium 125 mcg 05/16/23 06:00 05/18/23 06:47 Levothyroxine 125 Mcg Tab PO 125 mcg DAILY@0600 [facility] Administration Loratadine 10 mg 05/15/23 19:02 Loratadine 10 Mg Tab PO DAILY PRN Allergy Symptoms Melatonin 5 mg 05/15/23 21:00 05/17/23 20:43 Melatonin 5 Mg Tablet PO 5 mg HS@2100 [facility] Administration Methocarbamol 500 mg 05/15/23 19:02 Methocarbamol 500 Mg Tab PO TID PRN Muscle Spasm Metoprolol Succinate 50 mg 05/16/23 09:00 05/18/23 09:38 Metoprolol Succinate (Er) 50 Mg Tab.Er.24h PO 50 mg DAILY@0900 [facility] Administration Montelukast Sodium 10 mg 05/15/23 21:00 05/17/23 20:43 Montelukast 10 Mg Tab PO 10 mg HS@2100 [facility] Administration Naloxone HCl 0.2 mg 05/15/23 07:08 Naloxone 0.4 Mg/Ml 1 Ml Vial IV Q2M PRN Opioid Reversal Nitroglycerin 0.4 mg 05/15/23 19:02 Nitroglycerin Sl Tabs 0.4 Mg Tab SUBLINGUAL Q5M PRN Chest Pain Nystatin 1 applic 05/16/23 09:00 05/18/23 09:40 Nystatin 100,000 Unit/Gm Powd 15 Gm TOPICAL 1 applic TID YOANA Administration Protocol Petrolatum 1 applic 05/15/23 22:34 Zinc Oxide Paste (Z-Guard) 1 Applic TOPICAL Q2HR PRN Wound Healing Protocol Polyethylene Glycol 17 gm 05/15/23 15:15 05/18/23 09:39 Polyethylene Glycol 3350 17 Gm Powd.Pack PO 17 gm DAILY YOANA Administration Polyethylene Glycol 17 gm 05/15/23 19:02 Polyethylene Glycol 3350 17 Gm Powd.Pack PO DAILY PRN Constipation Senna 8.6 mg 05/15/23 19:02 Sennosides 8.6 Mg Tab PO DAILY PRN Constipation Sodium Chloride 10 ml 05/16/23 18:00 05/17/23 21:02 Sodium Chloride 0.9% Flush 10 Ml Syringe IV Not Given DAILY@1800 YOANA Objective - Vital Signs Vital signs: Vital Signs Temp 98.7 F 05/18/23 13:00 Pulse 78 05/18/23 13:00 Resp 19 05/18/23 13:00 BP 139/72 05/18/23 13:00 Pulse Ox 93 L 05/18/23 13:00 FiO2 Intake & Output 05/17/23 05/18/23 05/18/23 18:59 06:59 18:59 Output Total 800 Balance -800 Weight 114.5 kg Output: Urine 800 Other: Voiding Method External Catheter External Catheter External Catheter # Voids 2 # Bowel Movements 1 - Exam -GENERAL: The patient is alert and oriented x3, not in any acute distress. Morbidly obese, bedbound HEENT: Pupils are round and equally reacting to light. EOMI. No scleral icterus. No conjunctival pallor. Normocephalic, atraumatic. No pharyngeal erythema. No thyromegaly. CARDIOVASCULAR: S1 and S2 present. No murmurs, rubs, or gallops. PULMONARY: Chest is clear to auscultation, no wheezing , no crackles. -ABDOMEN: Soft, LUQ tenderness, no rebound tenderness mildly distended , normoactive bowel sounds. No palpable organomegaly. MUSCULOSKELETAL: No joint swelling or deformity. -EXTREMITIES: No cyanosis, clubbing, or pedal edema. Right upper extremity PICC line NEUROLOGICAL: Gross neurological examination did not reveal any focal deficits. SKIN: No rashes. no petechiae. - Labs CBC & Chem 7: 05/18/23 06:14 05/17/23 07:22 Labs: Abnormal Lab Results - Last 24 Hours (Table) 05/17/23 05/17/23 05/18/23 Range/Units 16:27 19:54 06:01 RBC (3.80-5.40) m/uL Hgb (11.4-16.0) gm/dL Hct (34.0-46.0) % MCHC (31.0-37.0) g/dL RDW (11.5-15.5) % POC Glucose (mg/dL) 157 H 137 H 114 H (70-110) mg/dL 05/18/23 05/18/23 Range/Units 06:14 11:34 RBC 3.08 L (3.80-5.40) m/uL Hgb 8.1 L (11.4-16.0) gm/dL Hct 27.1 L (34.0-46.0) % MCHC 29.7 L (31.0-37.0) g/dL RDW 17.5 H (11.5-15.5) % POC Glucose (mg/dL) 159 H (70-110) mg/dL Microbiology - Last 24 Hours (Table) 05/15/23 15:33 Blood Culture - Preliminary Blood Assessment and Plan Assessment: Anemia, secondary to iron deficiency. Monitor for Recurrent GI bleeding is suspected, urinary tract infection, recently treated with PICC line at [facility] Chronic atrial fibrillation on xarelto at home elevated troponin, cleared by development chemist Patient has history of right ureter stent and stone History of asthma And COPD as per patient, currently not active issue or exacerbation Chronic hypoxic respiratory failure and 2-3 L of oxygen at home History of coronary artery disease status post stent Chronic heart failure History of CVA/TIA Diabetes mellitus Hypertension Hyperlipidemia History of osteoarthritis, with moderate to severe right neural foraminal stenosis at L5-S1 Hypothyroidism history of fibromyalgia History of DVT and pulmonary embolism Chronic kidney disease stage III Neuropathy History of depression Morbid obesity with BMI of 45.7 Plan: Monitor hemoglobin. Plan for EGD/colonoscopy on Friday Surgical team consult Give more laxative for constipation DC antibiotic and keep monitoring Consults infectious disease team Hold xarelto till cleared by surgery Cardiology team consult Switch IV Lasix to oral dose Urologist in consult for stent management and kidney stone. Patient will need to follow up with her urologist Dr. Walker soon after discharge Continue same treatment. Continue with symptomatic treatment. Resume home medication. Monitor labs and vitals. DVT and GI prophylaxis. Further recommendations as per clinical course of the patient DVT prophylaxis: hold xarelto GI Prophylaxis: Pepcid PT/OT: Pending Prognosis is guarded
--- NOTE | 2023-05-18 15:24 | P.PN ---
Subjective Progress Note Date: 05/18/23 05/18/2023 Patient is sleeping comfortably in bed. Denies having any active chest pain chest pressure. Sinus rhythm on telemetry today. Hemodynamically stable. 05/17/2023 No new cardiac symptoms, hemoglobin stable at 7.8. Hemodynamically stable, BP 157/70, heart rate 88, sinus rhythm on telemetry today This is a pleasant 67-year-old female patient who follows in the office with Dr. Taylor. She has a past medical history of CAD with unsuccessful attempt at stenting in 2017 at which time she was seen and evaluated by cardiothoracic surgery and was felt to be high risk for CABG and therefore recommended maximal medical therapy. Also has a history of ischemic cardiomyopathy, diabetes, atrial fibrillation, hyperlipidemia and morbid obesity. We were asked to see the patient in consultation for elevated troponins that came back at 2.03, 1.26 and 0.795. She was initially sent to the ER after labs showed a hemoglobin of 3 point 5 repeat hemoglobin performed here revealed hemoglobin of 8.0. She had no chest discomfort prior to admission. She denied any shortness of breath. She d oes complain of occasional fluttering in her chest and feeling her heart racing at times. She has been maintained on Xarelto outpatient but that is on hold due to anemia. On examination she is resting comfortably in bed. Continues to complain of racing heart at times. Denies any shortness of breath or edema. Echocardiogram with Doppler study was performed and showed ejection fraction 50 to 55%, mild MR and mild to moderate TR. PHYSICAL EXAMINATION Vital signs reviewed. Head: Normocephalic. Eyes: Sclerae nonicteric. Neck: Brisk carotid upstroke, no jugular venous distention. Lungs: Clear to auscultation. Heart: Regular rate and rhythm, S1-S2, no S3, no murmur or rub. Abdomen: Soft nontender, bowel sounds present, Extremities: 1+ pitting edema bilateral extremity Neuro: Alert, oriented, no focal neurological deficits. Detailed neuro exam was not performed. Assessment: Anemia, appears stable with hemoglobin in the 8's Hemoglobin 3.5, Suspect lab error Non-STEMI Coronary artery disease with previous PTCA Status post unsuccessful stenting of LAD and RCA, 2017 Mild ischemic cardiomyopathy, EF 45% Paroxysmal atrial fibrillation, on Xarelto outpatient Hyperlipidemia Diabetes Morbid obesity History of EGD and colonoscopy, 2022 Last echo showed preserved EF 50 to 55% Plan: Plan for EGD colonoscopy on Friday. Hemoglobin is stable at 8. Most likely the hemoglobin of 3.5 was a lab error Continue aspirin, atorvastatin Imdur 30 mg daily, metoprolol succinate 50 mg daily Lasix 40 mg p.o. twice daily. Was transition from IV to p.o. yesterday Holding anticoagulation because of anemia Jayson Harden MD, FACC, RPVI Thank you for allowing [facility] to participate in this patient's care. Please contact us in case of any followup questions. Objective - Vital Signs Vital signs: Vital Signs Temp 98.7 F 05/18/23 13:00 Pulse 78 05/18/23 13:00 Resp 19 05/18/23 13:00 BP 139/72 05/18/23 13:00 Pulse Ox 93 L 05/18/23 13:00 FiO2 Intake & Output 05/17/23 05/18/23 05/18/23 18:59 06:59 18:59 Output Total 800 Balance -800 Weight 114.5 kg Output: Urine 800 Other: Voiding Method External Catheter External Catheter External Catheter # Voids 2 # Bowel Movements 1 - Labs CBC & Chem 7: 05/18/23 06:14 05/17/23 07:22 Labs: Abnormal Lab Results - Last 24 Hours (Table) 05/17/23 05/17/23 05/18/23 Range/Units 16:27 19:54 06:01 RBC (3.80-5.40) m/uL Hgb (11.4-16.0) gm/dL Hct (34.0-46.0) % MCHC (31.0-37.0) g/dL RDW (11.5-15.5) % POC Glucose (mg/dL) 157 H 137 H 114 H (70-110) mg/dL 05/18/23 05/18/23 Range/Units 06:14 11:34 RBC 3.08 L (3.80-5.40) m/uL Hgb 8.1 L (11.4-16.0) gm/dL Hct 27.1 L (34.0-46.0) % MCHC 29.7 L (31.0-37.0) g/dL RDW 17.5 H (11.5-15.5) % POC Glucose (mg/dL) 159 H (70-110) mg/dL Microbiology - Last 24 Hours (Table) 05/15/23 15:33 Blood Culture - Preliminary Blood
[2023-05-18 16:35] LABS: Glucose,Whole Blood 129 mg/dL (70-110)
[2023-05-18 19:46] LABS: Glucose,Whole Blood 118 mg/dL (70-110)
[2023-05-19 05:54] LABS: Glucose,Whole Blood 125 mg/dL (70-110)
[2023-05-19 06:11] LABS: Anisocytosis Slight; HCT 26.4 % (34.0-46.0); HGB 8.1 gm/dL (11.4-16.0); Hypochromasia Marked; MCH 27.2 pg (25.0-35.0); MCHC 30.6 g/dL (31.0-37.0); MCV 88.7 fL (80.0-100.0); Mean Platelet Volume 7.2; Platelet Count 229 k/uL (150-450); Poikilocytosis Slight; RBC 2.98 m/uL (3.80-5.40); RDW 17.5 % (11.5-15.5); WBC 6.2 k/uL (3.8-10.6)
[2023-05-19 06:52] LABS: African American GFR (CKD) >90 (>60 ml/min/1.73 sqM); Anion Gap 2 mmol/L; Blood Urea Nitrogen 14 mg/dL (7-17); Calcium 8.1 mg/dL (8.4-10.2); Carbon Dioxide 39 mmol/L (22-30); Chloride 100 mmol/L (98-107); Glucose 110 mg/dL (74-99); Non-African American GFR(CKD) 89 (>60 ml/min/1.73 sqM); Potassium 3.6 mmol/L (3.5-5.1); Sodium 141 mmol/L (137-145)
--- NOTE | 2023-05-19 08:16 | P.PN ---
Subjective Progress Note Date: 05/19/23 Patient is in the hospital with elevated troponins abdominal discomfort. She has a known history of kidney stones with previous attempts at removing the ureteral stones by myself that failed. She also has renal stones. She was referred to Dr. Walker at [facility] for formal surgical removal. This is not been completed to date Objective - Vital Signs Vital signs: Vital Signs Temp 97.8 F 05/19/23 07:12 Pulse 64 05/19/23 07:12 Resp 19 05/19/23 07:12 BP 122/76 05/19/23 07:12 Pulse Ox 100 05/19/23 07:12 FiO2 Intake & Output 05/18/23 05/19/23 05/19/23 18:59 06:59 18:59 Output Total 400 Balance -400 Weight 114 kg Output: Urine 400 Other: Voiding Method External Catheter External Catheter # Voids 5 1 # Bowel Movements 3 - Labs CBC & Chem 7: 05/19/23 05:40 05/19/23 05:40 Labs: Abnormal Lab Results - Last 24 Hours (Table) 05/18/23 05/18/23 05/18/23 Range/Units 11:34 16:33 19:44 RBC (3.80-5.40) m/uL Hgb (11.4-16.0) gm/dL Hct (34.0-46.0) % MCHC (31.0-37.0) g/dL RDW (11.5-15.5) % Carbon Dioxide (22-30) mmol/L Glucose (74-99) mg/dL POC Glucose (mg/dL) 159 H 129 H 118 H (70-110) mg/dL Calcium (8.4-10.2) mg/dL 05/19/23 05/19/23 05/19/23 Range/Units 05:40 05:40 05:53 RBC 2.98 L (3.80-5.40) m/uL Hgb 8.1 L (11.4-16.0) gm/dL Hct 26.4 L (34.0-46.0) % MCHC 30.6 L (31.0-37.0) g/dL RDW 17.5 H (11.5-15.5) % Carbon Dioxide 39 H (22-30) mmol/L Glucose 110 H (74-99) mg/dL POC Glucose (mg/dL) 125 H (70-110) mg/dL Calcium 8.1 L (8.4-10.2) mg/dL Microbiology - Last 24 Hours (Table) 05/15/23 15:33 Blood Culture - Preliminary Blood Assessment and Plan Assessment: Impression: Patient has right ureteral and renal stones. Her anatomy is somewhat distorted. The stones are infected. She has a stent on the right side. Recommendations: Attempted twice to remove the stone. Anatomy is somewhat unusual. The stone that appears to be in the ureter actually may be a in either a bifid renal pelvis or abnormally located calyx that appears to be near the ureter. Regardless I was unable to access the stones. She needs a percutaneous nephrostolithotomy. Given her health and anatomical abnormalities I referred her to Dr. Garcia at [facility]. She has met Dr. Walker and there were plans in the future of which need to be followed up with.
[2023-05-19 11:20] LABS: Glucose,Whole Blood 120 mg/dL (70-110)
--- NOTE | 2023-05-19 11:43 | P.PN ---
Subjective Progress Note Date: 05/19/23 Principal diagnosis: Reason for follow-up is a urinary tract infection Patient is a 67-year-old female with a past medical history significant for atrial fibrillation asthma coronary artery disease heart failure diabetes mellitus fibromyalgia hypertension hyperlipidemia patient was sent to the ER from the local correction concerning for abnormal lab, workup in the ED she was positive UA patient was having some urinary symptoms concerning for UTI prompting this infectious disease consultation. On today's evaluation that is 05/19/2023, the patient continues to be afebrile, the patient is on 3 L nasal cannula oxygen and breathing comfortably, the patient is slightly sleepy however the nursing staff mention she was doing well this morning without any new complaint and no vomiting or diarrhea has been reported. Patient white count of 6.2, creatinine 0.70 blood cultures so far negative urine is negative Objective - Vital Signs Vital signs: Vital Signs Temp 97.8 F 05/19/23 07:12 Pulse 64 05/19/23 07:12 Resp 19 05/19/23 07:12 BP 122/76 05/19/23 07:12 Pulse Ox 100 05/19/23 07:12 FiO2 Intake & Output 05/18/23 05/19/23 05/19/23 18:59 06:59 18:59 Output Total 400 Balance -400 Weight 114 kg Output: Urine 400 Other: Voiding Method External Catheter External Catheter External Catheter # Voids 5 1 # Bowel Movements 3 1 - Exam GENERAL DESCRIPTION: An elderly female lying in bed in no distress RESPIRATORY SYSTEM: Unlabored breathing , decreased breath sounds at bases HEART: S1 S2 regular rate and rhythm , ABDOMEN: Soft , no tenderness EXTREMITIES: No edema feet - Labs CBC & Chem 7: 05/19/23 05:40 05/19/23 05:40 Labs: Abnormal Lab Results - Last 24 Hours (Table) 05/18/23 05/18/23 05/19/23 Range/Units 16:33 19:44 05:40 RBC 2.98 L (3.80-5.40) m/uL Hgb 8.1 L (11.4-16.0) gm/dL Hct 26.4 L (34.0-46.0) % MCHC 30.6 L (31.0-37.0) g/dL RDW 17.5 H (11.5-15.5) % Carbon Dioxide (22-30) mmol/L Glucose (74-99) mg/dL POC Glucose (mg/dL) 129 H 118 H (70-110) mg/dL Calcium (8.4-10.2) mg/dL 05/19/23 05/19/23 05/19/23 Range/Units 05:40 05:53 11:19 RBC (3.80-5.40) m/uL Hgb (11.4-16.0) gm/dL Hct (34.0-46.0) % MCHC (31.0-37.0) g/dL RDW (11.5-15.5) % Carbon Dioxide 39 H (22-30) mmol/L Glucose 110 H (74-99) mg/dL POC Glucose (mg/dL) 125 H 120 H (70-110) mg/dL Calcium 8.1 L (8.4-10.2) mg/dL Microbiology - Last 24 Hours (Table) 05/15/23 15:33 Blood Culture - Preliminary Blood Assessment and Plan (1) UTI (urinary tract infection) Current Visit: No Status: Acute Code(s): N39.0 - URINARY TRACT INFECTION, SITE NOT SPECIFIED SNOMED Code(s): 54221734 Plan: 1patient presented hospital with abnormal lab possible misinterpretation has a hemoglobin was 8 instead of 3.4 on presentation to the hospital patient did have urinary symptoms positive UA concerning for a symptomatic urinary tract infection with last urine culture positive for Pseudomonas aeruginosa 2 weeks ago 2-patient is afebrile white count is normal blood cultures pending however urine culture has been negative, patient cefepime was discontinued yesterday seem to be doing well off antibiotic at this point and will monitor closely Dictation was produced using [employer] dictation software. please excuse any grammatical, word or spelling errors. Time with Patient: Less than 30
--- NOTE | 2023-05-19 13:01 | CDI ---
Documentation Clarification Form Date: 05/19/2023 12:42:41 PM From: Peggy Fan RN CCDS Phone: [phone] Admit Date: 05/16/2023 10:12:00 AM Patient Name: Uma Oconnell Visit Number: [id number] Discharge Date: ATTENTION: The Clinical Documentation Specialists (CDI) and [facility] Coding Staff appreciate your assistance in clarifying documentation. Please respond to the clarification below the line at the bottom and electronically sign. The CDI & [facility] Coding staff will review the response and follow-up if needed. Please note: Queries are made part of the Legal Health Record. If you have any questions, please contact the author of this message via ITS. Dr. Jaydon Pastor MD Your patient is receiving the following: Lasix IV, 05/15 05/17 changed to Lasix po 03/17. Please clarify what condition/diagnosis is being treated. History/Risk Factors: 66-year-old Female presents to the ED for low Hgb. Medical History: Bleeding all the time for the past seven years, Atrial Fibrillation, CAD, Heart Failure and CKD3. H&P, 05/15. Clinical Indicators: VS/Pulse OX, 05/15: B/P 128/88; HR 69; Temp 67.9 F Oral; RR 20; SpO2 99% 2L nasal cannula Echocardiogram Results: EF 50-55% Left ventricle function borderline normal. Mild mitral with mild to moderate tricuspid regurgitation. CT Abd pelvis with contrast: Moderate right pleural effusion Medicine note, 05/16: On Lasix as there is some evidence of fluid overload. Chronic heart failure. Treatment: 05/15 05/17 Lasix 40mg IV Q12HR, 05/18- Lasix 40mg po Daily; 05/16 Imdur 30mg po Daily; 05/16 Toprol Xl 50mg po Daily In your professional opinion, can you please clarify what diagnosis Lasix is treating? [xx ] Acute on Chronic Diastolic Heart Failure (preserved EF) [ ] Other, please specify [ ] Unable to determine (Template Last Revised: May 2020) MTDD
--- NOTE | 2023-05-19 13:35 | P.PN ---
Subjective Progress Note Date: 05/19/23 CHIEF COMPLAINT: Anemia HISTORY OF PRESENT ILLNESS: Patient scheduled for EGD and colonoscopy today. Patient did not complete bowel prep. Afebrile. WBC 6.2 Hgb 8.1 platelets 229 sodium 141 potassium 3.6 creatinine 0.70 PHYSICAL EXAM: VITAL SIGNS: Reviewed. GENERAL: Well-developed in no acute distress. ABDOMEN: Soft. Obesity nondistended. Nontender. NEUROLOGIC: Awake and alert ASSESSMENT: 1. Anemia. Hemoglobin of 3.5 outpatient may be a lab error. 2. Chronic anemia 3. UTI 4. Non-ST elevated IN seen by cardiology 5. Constipation PLAN: -Patient scheduled for EGD and colonoscopy today Physician Vice President Financial note has been reviewed by physician. Signing provider agrees with the documented findings, assessment, and plan of care. Objective - Vital Signs Vital signs: Vital Signs Temp 97.8 F 05/19/23 07:12 Pulse 64 05/19/23 07:12 Resp 19 05/19/23 07:12 BP 122/76 05/19/23 07:12 Pulse Ox 100 05/19/23 07:12 FiO2 Intake & Output 05/18/23 05/19/23 05/19/23 18:59 06:59 18:59 Output Total 400 Balance -400 Weight 114 kg Output: Urine 400 Other: Voiding Method External Catheter External Catheter External Catheter # Voids 5 1 # Bowel Movements 3 1 - Labs CBC & Chem 7: 05/19/23 05:40 05/19/23 05:40 Labs: Abnormal Lab Results - Last 24 Hours (Table) 05/18/23 05/18/23 05/19/23 Range/Units 16:33 19:44 05:40 RBC 2.98 L (3.80-5.40) m/uL Hgb 8.1 L (11.4-16.0) gm/dL Hct 26.4 L (34.0-46.0) % MCHC 30.6 L (31.0-37.0) g/dL RDW 17.5 H (11.5-15.5) % Carbon Dioxide (22-30) mmol/L Glucose (74-99) mg/dL POC Glucose (mg/dL) 129 H 118 H (70-110) mg/dL Calcium (8.4-10.2) mg/dL 05/19/23 05/19/23 05/19/23 Range/Units 05:40 05:53 11:19 RBC (3.80-5.40) m/uL Hgb (11.4-16.0) gm/dL Hct (34.0-46.0) % MCHC (31.0-37.0) g/dL RDW (11.5-15.5) % Carbon Dioxide 39 H (22-30) mmol/L Glucose 110 H (74-99) mg/dL POC Glucose (mg/dL) 125 H 120 H (70-110) mg/dL Calcium 8.1 L (8.4-10.2) mg/dL Microbiology - Last 24 Hours (Table) 05/15/23 15:33 Blood Culture - Preliminary Blood
[2023-05-19] MEDS ORDERED: PROPOFOL 10 MG/ML 20 ML VIAL IV ONE (14:45)
[2023-05-19] MEDS ORDERED: LIDOCAINE 1% INJ 10MG/ML (20 ML MDV) ONE (14:45)
[2023-05-19] MEDS: IV FLUID CONTINUATION 1,000 ML IV ONE (14:51)
--- NOTE | 2023-05-19 15:00 | P.OP ---
Date of Procedure: 05/19/23 Preoperative Diagnosis: GI bleed Postoperative Diagnosis: Mild antral gastritis Procedure(s) Performed: egd Anesthesia: MAC Surgeon: Prakash Early Pathology: other (Antrum) Condition: stable Disposition: PACU Description of Procedure: Patient was placed on the endoscopy table in the lateral position. She received IV sedation. The gas was placed oropharynx passed in the esophagus into the stomach. Scope was then placed through the pylorus. The first and second portion of the duodenum appeared normal. Scope was then brought back to the antrum this appeared mildly inflamed. A biopsy was performed. The scope was then retroflexed remainder the stomach appeared normal. The GE junction was 40 cm.. The distal esophagus appeared normal. The proximal esophagus appeared normal. Scope withdrawn for the patient. There was no evidence of any upper GI bleed.
[2023-05-19 16:43] LABS: Glucose,Whole Blood 108 mg/dL (70-110)
[2023-05-19 20:07] LABS: Glucose,Whole Blood 140 mg/dL (70-110)
--- NOTE | 2023-05-19 20:43 | P.PN ---
Subjective Progress Note Date: 05/19/23 Principal diagnosis: Acute anemia iron deficiency, urinary tract infection on IV antibiotics, chronic atrial fibrillation, elevated troponin possible non-ST LA, right-sided ureter stent and stone, chronic respiratory failure on home O2, history of coronary artery disease post stent, history of CVA, type 2 diabetes, stage III chronic kidney disease, hyperlipidemia, history of DVT and pulmonary embolism, chronic neuropathy, morbid obesity with BMI over 45. 66-year-old female [address] Deluca's patient with multiple medical problem presented to have a history of atrial fibrillation, COPD, coronary artery disease postangioplasty and stent, chronic heart failure, history of CVA and TIA, history of type 2 diabetes, coagulation with DVT and pulmonary embolism, chronic depression, history of stage III chronic kidney disease, recurrent UTI with recent history of UTI or IV antibiotics, history of large ureteral stone post ureteral stent, debility who has been residing at [facility] for over 3 months. She was sent to the emergency department from [facility] because of severe abnormal lab found to have hemoglobin of 8.0 she been treated for sepsis with UTI with IV antibiotics after having ureteral stent for large stone. Patient found to have an elevated troponin was diagnosed with non-ST LA also her UA was extremely positive at the time was still on IV antibiotics. Found to have severe anemia with hemoglobin at 7. Recurrent problem hospitalized on May 15 consult cardiology, urology, general surgery for possible GI bleed. Patient has been treated with blood count tract infection as an MRSA and ESBL with multiple antibiotics. Patient A-fib has been well-controlled still seeing cardiology also seen infectious disease has been treated for UTI was taking of cefepime at this point watching for any recurrent infection. Patient is going for EGD and colonoscopy today with general surgery for finding a source of her GI bleed. Her labs continue to show hemoglobin of 8.0 BUN/creatinine are much better so far patient with carbon dioxide retention from COPD and sleep apnea. Urology are not planning to do any intervention with her stent at this point she might have to go back to see urology for reported where her stent was placed originally. REVIEW OF SYSTEMS: CONSTITUTIONAL: Morbidly obese laying in bed slightly confused does not look in any respiratory distress EYES: No icterus sclerae, no conjunctivitis. EARS, NOSE, MOUTH, THROAT, and FACE: No sore throat, lymphadenopathy, carotid bruits or deformity. RESPIRATORY: Mild shortness of breath no cough or wheezes. CARDIOVASCULAR: No CP, Palpitation, PND, Orthopnea, or angina. GASTROINTESTINAL: Slight abdominal distention with nausea no vomiting slight diarrhea no constipation. GENITOURINARY: Recurrent kidney stone with recurrent urinary tract infection resistant to antibiotics. INTEGUMENT/BREAST: generalized arthralgia and myalgia all over. HEMATOLOGIC/LYMPHATIC: Acute on chronic iron deficiency anemia. MUSCULOSKELTAL: Severe debility with severe myalgia and arthralgia. NEURLOGICAL: No LOC, Sz or syncope, blurred vision dizziness or abnormality.. BEHAVIORAL/PSYCH: Negative. ENDOCRINE: Negative. Physica Examination: General Appearance: Alert, cooperative, no distress, appears older than her age. Neck HEENT: Supple, no lymphadenopathy, no thyroid enlargement, no carotid bruits. Lungs: Clear to auscultation without crackles or wheezes no rhonchi, no deformity. Chest Wall: Chest wall normal expansion with deep inspiration no tenderness and no deformity was found on exam, no costochondral pain or discomfort. Heart: Irregular rhythm and rate S1-S2 positive S3. Back: Significant curvature with mild tenderness in the lumbar spine. Abdomen: Soft positive bowel sounds slight discomfort in the mid epigastric and lower abdominal region area no rebound or rigidity. 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 Pulses: 2+ and symmetric. Skin: Skin color, texture, tugor normal, no rashes or lesions. Neurologic: Alert oriented with slight confusion moving all 4 extremities with generalized weakness no focal deficit. Assessment and plan: 1 acute iron deficiency anemia: Pain watch for GI bleed she will be going for an EGD and colonoscopy. 2 recurrent urinary tract infection has been on IV antibiotic with cefepime seen infectious disease and apparently her cefepime will be discontinued for now repeat UA and culture. 3 elevated troponin with possible non-ST LA with history of coronary artery disease postangioplasty and stent placement has been on medical management cardiology not interested to do any intervention at this point. Chronic DVT and pulmonary embolism with history of A-fib required anticoagulation: Her Xarelto will be held for now till very clear with her GI workup. 5 history of ureteral stent secondary to kidney stone has been seen in June by urology. 6 type 2 diabetes: Has been on insulin with Levemir 15 units at bedtime and NovoLog per sliding scale coverage 7 atherosclerotic heart disease post angioplasty and stent placement: Still seeing cardiology and has been on atorvastatin, aspirin, isosorbide, metoprolol and nitro. 8 COPD/asthma: Will continue patient on oxygen along with albuterol treatment. 9 Hypothyroidism: Resume levothyroxine at 125 mcg daily. 10 hyperlipidemia: Remain on atorvastatin 80 mg daily. 11 GI prophylaxis: Remain on PPI IV. 12 debility: Still require further help by going back to [facility] when she is ready. CODE STATUS: Full code. Discharge planning: Hopefully she will be back to [facility] in the next 48 to 72 hours. Objective - Vital Signs Vital signs: Vital Signs Temp 98.1 F 05/19/23 15:37 Pulse 70 05/19/23 15:37 Resp 17 05/19/23 15:37 BP 121/68 05/19/23 15:37 Pulse Ox 100 05/19/23 15:37 FiO2 Intake & Output 05/19/23 05/19/23 05/20/23 06:59 18:59 06:59 Intake Total 50 Output Total 400 2 Balance -400 48 Weight 114 kg Intake: IV 50 Output: Urine 400 2 Other: Voiding Method External Catheter External Catheter # Voids 1 3 # Bowel Movements 3 2 - Labs CBC & Chem 7: 05/19/23 05:40 05/19/23 05:40 Labs: Abnormal Lab Results - Last 24 Hours (Table) 05/19/23 05/19/23 05/19/23 Range/Units 05:40 05:40 05:53 RBC 2.98 L (3.80-5.40) m/uL Hgb 8.1 L (11.4-16.0) gm/dL Hct 26.4 L (34.0-46.0) % MCHC 30.6 L (31.0-37.0) g/dL RDW 17.5 H (11.5-15.5) % Carbon Dioxide 39 H (22-30) mmol/L Glucose 110 H (74-99) mg/dL POC Glucose (mg/dL) 125 H (70-110) mg/dL Calcium 8.1 L (8.4-10.2) mg/dL 05/19/23 Range/Units 11:19 RBC (3.80-5.40) m/uL Hgb (11.4-16.0) gm/dL Hct (34.0-46.0) % MCHC (31.0-37.0) g/dL RDW (11.5-15.5) % Carbon Dioxide (22-30) mmol/L Glucose (74-99) mg/dL POC Glucose (mg/dL) 120 H (70-110) mg/dL Calcium (8.4-10.2) mg/dL Microbiology - Last 24 Hours (Table) 05/15/23 15:33 Blood Culture - Preliminary Blood
[2023-05-20] MEDS: BENZOCAINE/MENTHOL LOZENG 1 EACH LOZENGE MUCOUS MEM PRN (04:17)
[2023-05-20 05:54] LABS: Glucose,Whole Blood 185 mg/dL (70-110)
[2023-05-20 07:47] VITALS: RESP 20
[2023-05-20 11:59] LABS: Glucose,Whole Blood 158 mg/dL (70-110)
--- NOTE | 2023-05-20 12:26 | P.PN ---
Subjective Progress Note Date: 05/20/23 CHIEF COMPLAINT: Anemia HISTORY OF PRESENT ILLNESS: Patient is status post EGD revealing mitral antral gastritis. No evidence of bleeding reported. Denies any abdominal pain. Colonoscopy not completed due to poor bowel prep. Hemoglobin stable at 8.1. PHYSICAL EXAM: VITAL SIGNS: Reviewed. GENERAL: Well-developed in no acute distress. ABDOMEN: Soft. Obesity nondistended. Nontender. NEUROLOGIC: Awake and alert ASSESSMENT: 1. Anemia status post EGD revealing gastritis 2. Chronic anemia 3. UTI 4. Non-ST elevated CA seen by cardiology 5. Constipation PLAN: -Continue PPI -Continue regular diet -Patient can be discharged from surgical standpoint Physician Traveling Engineer note has been reviewed by physician. Signing provider agrees with the documented findings, assessment, and plan of care. Objective - Vital Signs Vital signs: Vital Signs Temp 98.3 F 05/20/23 07:41 Pulse 82 05/20/23 07:41 Resp 20 05/20/23 07:41 BP 126/66 05/20/23 07:41 Pulse Ox 100 05/20/23 07:41 FiO2 Intake & Output 05/19/23 05/20/23 05/20/23 18:59 06:59 18:59 Intake Total 50 420 90 Output Total 2 250 Balance 48 170 90 Weight 113 kg Intake: IV 50 Oral 420 90 Output: Urine 2 250 Other: Voiding Method External Catheter External Catheter External Catheter # Voids 3 1 # Bowel Movements 2 1 - Labs CBC & Chem 7: 05/19/23 05:40 05/19/23 05:40 Labs: Abnormal Lab Results - Last 24 Hours (Table) 05/19/23 05/20/23 05/20/23 Range/Units 20:06 05:53 11:54 POC Glucose (mg/dL) 140 H 185 H 158 H (70-110) mg/dL
--- NOTE | 2023-05-20 12:46 | P.PN ---
Subjective Progress Note Date: 05/20/23 Principal diagnosis: Reason for follow-up is a urinary tract infection Patient is a 67-year-old female with a past medical history significant for atrial fibrillation asthma coronary artery disease heart failure diabetes mellitus fibromyalgia hypertension hyperlipidemia patient was [facility] concerning for abnormal lab, workup in the ED she was positive UA patient was having some urinary symptoms concerning for UTI prompting this infectious disease consultation. On today's evaluation that is 05/20/2023, Patient is afebrile , patient is currently on 3 L nasal cannula oxygen and denies having any shortness of breath, the patient denies any chest pain occasional dry cough, the patient did have some nausea but no vomiting no abdominal pain and no diarrhea reported. No new labs has been obtained today her white count was normal culture has been negative Objective - Vital Signs Vital signs: Vital Signs Temp 98.3 F 05/20/23 07:41 Pulse 82 05/20/23 07:41 Resp 20 05/20/23 07:41 BP 126/66 05/20/23 07:41 Pulse Ox 100 05/20/23 07:41 FiO2 Intake & Output 05/19/23 05/20/23 05/20/23 18:59 06:59 18:59 Intake Total 50 420 90 Output Total 2 250 Balance 48 170 90 Weight 113 kg Intake: IV 50 Oral 420 90 Output: Urine 2 250 Other: Voiding Method External Catheter External Catheter External Catheter # Voids 3 1 # Bowel Movements 2 1 - Exam GENERAL DESCRIPTION: An elderly female lying in bed in no distress RESPIRATORY SYSTEM: Unlabored breathing , decreased breath sounds at bases HEART: S1 S2 regular rate and rhythm , ABDOMEN: Soft , no tenderness EXTREMITIES: No edema feet - Labs CBC & Chem 7: 05/19/23 05:40 05/19/23 05:40 Labs: Abnormal Lab Results - Last 24 Hours (Table) 05/19/23 05/20/23 05/20/23 Range/Units 20:06 05:53 11:54 POC Glucose (mg/dL) 140 H 185 H 158 H (70-110) mg/dL Assessment and Plan (1) UTI (urinary tract infection) Current Visit: No Status: Acute Code(s): N39.0 - URINARY TRACT INFECTION, SITE NOT SPECIFIED SNOMED Code(s): 69639032 Plan: 1patient presented hospital with abnormal lab possible misinterpretation has a hemoglobin was 8 instead of 3.4 on presentation to the hospital patient did have urinary symptoms positive UA concerning for a symptomatic urinary tract infection with last urine culture positive for Pseudomonas aeruginosa 2 weeks ag o 2-patient is afebrile white count is normal blood cultures negative urine cultures have been negative patient seem to be doing well off antibiotic therapy has recommended antibiotic on discharge midline should be discontinued discussed with the nursing staff Dictation was produced using [employer] dictation software. please excuse any grammatical, word or spelling errors. Time with Patient: Less than 30
--- NOTE | 2023-05-20 13:07 | P.DS ---
Providers Date of admission: 05/16/23 10:12 Attending physician: Lor Deluca Consults: 05/15/23 11:03 Consult Physician Urgent Consulting Provider: Prakash Early Consult Reason/Comments: r/o gi bleed and abd tenderness Do you want consulting provider notified?: Yes 05/15/23 11:04 Consult Physician Urgent Consulting Provider: Jason Olivo Consult Reason/Comments: recent uti Do you want consulting provider notified?: Yes 05/16/23 08:58 Consult Physician Routine Consulting Provider: Edwar You Consult Reason/Comments: kidney stones, history of a stent. Do you want consulting provider notified?: Yes Primary care physician: Lor Deluca Hospital Course: Principal diagnosis: Acute anemia iron deficiency, urinary tract infection on IV antibiotics, chronic atrial fibrillation, elevated troponin possible non-ST FL, right-sided ureter stent and stone, chronic respiratory failure on home O2, history of coronary artery disease post stent, history of CVA, type 2 diabetes, stage III chronic kidney disease, hyperlipidemia, history of DVT and pulmonary embolism, chronic neuropathy, morbid obesity with BMI over 45. 66-year-old female [address] Deluca's patient with multiple medical problem presented to have a history of atrial fibrillation, COPD, coronary artery disease postangioplasty and stent, chronic heart failure, history of CVA and TIA, history of type 2 diabetes, coagulation with DVT and pulmonary embolism, chronic depression, history of stage III chronic kidney disease, recurrent UTI with recent history of UTI or IV antibiotics, history of large ureteral stone post ureteral stent, debility who has been residing at [facility] for over 3 months. She was sent to the emergency department from [facility] because of severe abnormal lab found to have hemoglobin of 3.1, till she reached the emergency department and having to check found to be around 7. she been treated for sepsis with UTI with IV antibiotics after having ureteral stent for large stone. Patient found to have an elevated troponin was diagnosed with non-ST FL also her UA was extremely positive at the time was still on IV antibiotics. Found to have severe anemia with hemoglobin at 7. Recurrent problem hospitalized on May 15 consult cardiology, urology, general surgery for possible GI bleed. Patient has been treated with blood count tract infection as an MRSA and ESBL with multiple antibiotics. Patient A-fib has been well-controlled still seeing cardiology also seen infectious disease has been treated for UTI was taking of cefepime at this point watching for any recurrent infection. Patient is going for EGD and colonoscopy today with general surgery for finding a source of her GI bleed. Her labs continue to show hemoglobin of 8.0 BUN/creatinine are much better so f ar patient with carbon dioxide retention from COPD and sleep apnea. Urology are not planning to do any intervention with her stent at this point she might have to go back to see urology for reported where her stent was placed originally. REVIEW OF SYSTEMS: CONSTITUTIONAL: Morbidly obese laying in bed slightly confused does not look in any respiratory distress EYES: No icterus sclerae, no conjunctivitis. EARS, NOSE, MOUTH, THROAT, and FACE: No sore throat, lymphadenopathy, carotid bruits or deformity. RESPIRATORY: Mild shortness of breath no cough or wheezes. CARDIOVASCULAR: No CP, Palpitation, PND, Orthopnea, or angina. GASTROINTESTINAL: Slight abdominal distention with nausea no vomiting slight diarrhea no constipation. GENITOURINARY: Recurrent kidney stone with recurrent urinary tract infection resistant to antibiotics. INTEGUMENT/BREAST: generalized arthralgia and myalgia all over. HEMATOLOGIC/LYMPHATIC: Acute on chronic iron deficiency anemia. MUSCULOSKELTAL: Severe debility with severe myalgia and arthralgia. NEURLOGICAL: No LOC, Sz or syncope, blurred vision dizziness or abnormality.. BEHAVIORAL/PSYCH: Negative. ENDOCRINE: Negative. Physica Examination: General Appearance: Alert, cooperative, no distress, appears older than her age. Neck HEENT: Supple, no lymphadenopathy, no thyroid enlargement, no carotid bruits. Lungs: Clear to auscultation without crackles or wheezes no rhonchi, no deformity. Chest Wall: Chest wall normal expansion with deep inspiration no tenderness and no deformity was found on exam, no costochondral pain or discomfort. Heart: Irregular rhythm and rate S1-S2 positive S3. Back: Significant curvature with mild tenderness in the lumbar spine. Abdomen: Soft positive bowel sounds slight discomfort in the mid epigastric and lower abdominal region area no rebound or rigidity. 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 Pulses: 2+ and symmetric. Skin: Skin color, texture, tugor normal, no rashes or lesions. Neurologic: Alert oriented with slight confusion moving all 4 extremities with generalized weakness no focal deficit. Assessment and plan: 1 acute iron deficiency anemia: Pain watch for GI bleed she will be going for an EGD and colonoscopy. 2 recurrent urinary tract infection has been on IV antibiotic with cefepime seen infectious disease and apparently her cefepime will be discontinued for now repeat UA and culture. 3 elevated troponin with possible non-ST FL with history of coronary artery disease postangioplasty and stent placement has been on medical management cardiology not interested to do any intervention at this point. 4 Chronic DVT and pulmonary embolism with history of A-fib required anticoagulation: Her Xarelto will be held for now till very clear with her GI workup. 5 history of ureteral stent secondary to kidney stone has been seen in June by urology. 6 type 2 diabetes: Has been on insulin with Levemir 15 units at bedtime and NovoLog per sliding scale coverage 7 atherosclerotic heart disease post angioplasty and stent placement: Still seeing cardiology and has been on atorvastatin, aspirin, isosorbide, metoprolol and nitro. 8 COPD/asthma: Will continue patient on oxygen along with albuterol treatment. 9 Hypothyroidism: Resume levothyroxine at 125 mcg daily. 10 hyperlipidemia: Remain on atorvastatin 80 mg daily. 11 GI prophylaxis: Remain on PPI IV. 12 debility: Still require further help by going back to [facility] when she is ready. CODE STATUS: Full code. Discharge planning: Aftercare EGD came back negative for any acute gastrointestinal bleed or any active bleeding ulcer. Her prep for colonoscopy was poor could not be completed at the time. Her hemoglobin has been stable at this point does not require any further management for her chronic anemia to continue iron supplement on a regular basis and continue PPI. Also infectious disease has a clear patient to go off cefepime at this point no need to continue on IV antibiotics anymore and he is clearing her even to pull the PICC line at this point. Patient apparently still have ureteral stent eventually might require urology to remove it when she is ready might require further UA and culture if she is symptomatic. Patient is very stable to be discharged back to [facility] today. Patient Condition at Discharge: Stable Plan - Discharge Summary New Discharge Prescriptions: New Lactulose [Cephulac] 30 gm PO BID ml Nystatin 100,000 Unit/gm Powd [Mycostatin Powder] 1 applic TOPICAL TID each Furosemide [Lasix] 40 mg PO DAILY tab INSULIN ASPART (NovoLOG) [NovoLOG (formulary)] 0 unit SQ ACHS each Continue Montelukast [Singulair] 10 mg PO HS@2100 Acetaminophen Tab [Tylenol] 1,000 mg PO Q6H PRN PRN Reason: Pain Levothyroxine Sodium [Synthroid] 125 mcg PO DAILY@0600 Isosorbide Mononitrate ER [Imdur] 30 mg PO DAILY@0900 Omeprazole [PriLOSEC] 20 mg PO DAILY@0600 Docusate [Colace] 100 mg PO BID PRN cap PRN Reason: Constipation Metoprolol Succinate (ER) [Toprol XL] 50 mg PO DAILY@0900 polyethylene glycoL 3350 [Miralax] 17 gm PO DAILY PRN packet PRN Reason: Constipation Ascorbic Acid [Vitamin C] 500 mg PO DAILY@0900 Guaifenesin/Dextromethorphan [Guaifenesin-Dm 100-10 mg/5 ml] 10 ml PO Q4H PRN PRN Reason: Cough Insulin Lispro [humaLOG Kwikpen] See Protocol SQ QID@08,12,, Potassium Citrate [Urocit-K] 30 meq PO BID@0900,2100 Gabapentin [Neurontin] 300 mg PO HS@2100 Loratadine [Claritin] 10 mg PO DAILY PRN PRN Reason: Allergy Symptoms methocarbamoL [Robaxin] 500 mg PO TID PRN PRN Reason: Muscle Spasm Nitroglycerin Sl Tabs [Nitrostat] 0.4 mg SL Q5M PRN PRN Reason: Chest Pain allopurinoL 100 mg PO DAILY@0900 busPIRone HCl [Buspar] 10 mg PO BID@0900,2100 DULoxetine HCL [Cymbalta] 30 mg PO BID@0900,2100 Melatonin 5 mg PO HS@2100 Aspirin 81 mg PO DAILY@0900 Atorvastatin [Lipitor] 80 mg PO HS@2100 Cyanocobalamin [Vitamin B-12] 1,000 mcg PO DAILY@0900 Sennosides [Senokot] 8.6 mg PO DAILY PRN tab PRN Reason: Constipation Insulin Glargine,Hum.rec.anlog [Lantus Solostar Pen] 15 units SQ HS@2100 Benzocaine/Menthol Lozeng [Cepacol lozenge] 1 lozenge MUCOUS MEM Q4HR PRN PRN Reason: Sore Throat Rivaroxaban [Xarelto] 15 mg PO DAILY@1700 L.acidoph,Paracasei, B.lactis [Probiotic] 1 cap PO DAILY@0900 Discontinued 0.9 % Sodium Chloride [Sodium Chloride Flush] 10 ml IV DAILY@1800 Ertapenem [INVanz] 1 gm IVPB DAILY@1800 Sennosides/Docusate Sodium [Senna Plus 8.6-50 mg Softgel] 2 tab PO HS@2100 Discharge Medication List Montelukast [Singulair] 10 mg PO HS@209908/28/17 [History] Acetaminophen Tab [Tylenol] 1,000 mg PO Q6H PRN 05/22/21 [History] Levothyroxine Sodium [Synthroid] 125 mcg PO DAILY@59905/22/21 [History] Loratadine [Claritin] 10 mg PO DAILY PRN 05/22/21 [History] methocarbamoL [Robaxin] 500 mg PO TID PRN 05/22/21 [History] Isosorbide Mononitrate ER [Imdur] 30 mg PO DAILY@89912/04/21 [History] Nitroglycerin Sl Tabs [Nitrostat] 0.4 mg SL Q5M PRN 12/04/21 [History] DULoxetine HCL [Cymbalta] 30 mg PO BID@09,209909/27/22 [History] Omeprazole [PriLOSEC] 20 mg PO DAILY@59909/27/22 [History] allopurinoL 100 mg PO DAILY@89909/27/22 [History] busPIRone HCl [Buspar] 10 mg PO BID@09,209909/27/22 [History] Docusate [Colace] 100 mg PO BID PRN cap 10/01/22 [Rx] Melatonin 5 mg PO HS@209911/19/22 [History] Aspirin 81 mg PO DAILY@89912/27/22 [History] Atorvastatin [Lipitor] 80 mg PO HS@209912/27/22 [History] Cyanocobalamin [Vitamin B-12] 1,000 mcg PO DAILY@89912/27/22 [History] Metoprolol Succinate (ER) [Toprol XL] 50 mg PO DAILY@89912/27/22 [History] Sennosides [Senokot] 8.6 mg PO DAILY PRN tab 01/08/23 [Rx] polyethylene glycoL 3350 [Miralax] 17 gm PO DAILY PRN packet 01/08/23 [Rx] Ascorbic Acid [Vitamin C] 500 mg PO DAILY@0900 03/05/23 [History] Insulin Glargine,Hum.rec.anlog [Lantus Solostar Pen] 15 units SQ HS@209903/05/23 [History] Benzocaine/Menthol Lozeng [Cepacol lozenge] 1 lozenge MUCOUS MEM Q4HR PRN 05/15/23 [History] Gabapentin [Neurontin] 300 mg PO HS@209905/15/23 [History] Guaifenesin/Dextromethorphan [Guaifenesin-Dm 100-10 mg/5 ml] 10 ml PO Q4H PRN 05/15/23 [History] Insulin Lispro [humaLOG Kwikpen] See Protocol SQ QID@08,12,17,21 05/15/23 [History] L.acidoph,Paracasei, B.lactis [Probiotic] 1 cap PO DAILY@0900 05/15/23 [History] Potassium Citrate [Urocit-K] 30 meq PO BID@0900,209905/15/23 [History] Rivaroxaban [Xarelto] 15 mg PO DAILY@1700 05/15/23 [History] Furosemide [Lasix] 40 mg PO DAILY tab 05/20/23 [Rx] INSULIN ASPART (NovoLOG) [NovoLOG (formulary)] 0 unit SQ ACHS each 05/20/23 [Rx] Lactulose [Cephulac] 30 gm PO BID ml 05/20/23 [Rx] Nystatin 100,000 Unit/gm Powd [Mycostatin Powder] 1 applic TOPICAL TID each 05/20/23 [Rx] Follow up Appointment(s)/Referral(s): Lor Deluca MD [Primary Care Provider] - 1-2 days [facility], [NON-STAFF] - As Needed Activity/Diet/Wound Care/Special Instructions: Patient needs to arrange follow-up and schedule surgery by Dr. Huy Walker at [facility]. Discharge Disposition: TRANSFER TO SNF/ECF
[2023-05-20 15:43] VITALS: BP 135/67; PULSE 68; TEMP 97.4
--- NOTE | 2023-05-23 11:40 | CDI ---
Documentation Clarification Form Date: 05/23/2023 11:13:10 AM From: Melisa Valenzuela RN, CCDS Email: [email or web address] Admit Date: 05/16/2023 10:12:00 AM Patient Name: Uma Oconnell Visit Number: [id number] Discharge Date: 05/20/2023 04:48:00 PM ATTENTION: The Clinical Documentation Specialists (CDI) and [facility] Coding Staff appreciate your assistance in clarifying documentation. Please respond to the clarification below the line at the bottom and electronically sign. The CDI & [facility] Coding staff will review the response and follow-up if needed. Please note: Queries are made part of the Legal Health Record. If you have any questions, please contact the author of this message via ITS. Dr. Jaydon Pastor There is documentation of possible GI bleed throughout the record. Additional clarification is requested. History/Risk Factors: A fib, DVT, CAD, CHF, CVA/TIA, HTN, DM, bleeding all the time for 7 years. Sent in d/t low Hgb of 3.0. Admitted with anemia but thought to be a lab error and recurrent GI bleed suspected. Clinical Indicators: 05/15-05/19 Hgb 8.0-9.1-7.4-7.8-8.1 05/15 stool for occult blood positive 05/15 Serum iron: 26 H&P: "Anemia 3.5 thought to be lab error, repeat hemoglobin 8.0. Recurrent GI bleeding is suspected." 05/19 EGD: no evidence of any upper GI bleed. 05/20 Discharge summary: "acute iron deficiency anemia: Watch for GI bleed - she will be going for an EGD and colonoscopy. Her prep for colonoscopy was poor could not be completed at the time. Her hemoglobin has been stable at this point and does not require any further management for her chronic anemia. To continue iron supplement on a regular basis and continue PPI. Treatment: Monitor H/H daily; 0.9 NS @75mL/hr 05/15-05/16; discharged on Prilosec Can you please clarify the diagnosis: [xx ] GI bleed ruled in [ ] GI bleed ruled out [ ] Other, please specify [ ] Unable to determine MTDD
== END 2023-05-20 16:48 | DRG 377 ==
LOC: EC 04:33 → 3SCARD 07:11 → 4SSUR 10:03 → OBSVTOIN 05-16 10:12
PROVIDERS: ADMIT Family Medicine; ATTEND Family Medicine
PROC: 0DB78ZX Excision of Stomach, Pylorus, Via Natural or Artificial Opening Endoscopic, Diagnostic (ICD-10-PCS; principal; 2023-05-19 14:35)
DX: K92.2 Gastrointestinal hemorrhage, unspecified (principal); I21.4 Non-ST elevation (NSTEMI) myocardial infarction; I50.33 Acute on chronic diastolic (congestive) heart failure; Z68.42 Body mass index [BMI] 45.0-49.9, adult; N39.0 Urinary tract infection, site not specified; N20.2 Calculus of kidney with calculus of ureter; I13.0 Hypertensive heart and chronic kidney disease with heart failure and stage 1 through stage 4 chronic kidney disease, or unspecified chronic kidney disease; J96.11 Chronic respiratory failure with hypoxia; I27.82 Chronic pulmonary embolism; D50.9 Iron deficiency anemia, unspecified; N18.30 Chronic kidney disease, stage 3 unspecified; M79.7 Fibromyalgia; I25.10 Atherosclerotic heart disease of native coronary artery without angina pectoris; M19.90 Unspecified osteoarthritis, unspecified site; K59.00 Constipation, unspecified; J44.89 Other specified chronic obstructive pulmonary disease; I48.0 Paroxysmal atrial fibrillation; Z28.310 Unvaccinated for COVID-19; I25.5 Ischemic cardiomyopathy; G89.29 Other chronic pain; G47.30 Sleep apnea, unspecified; F32.A Depression, unspecified; E78.5 Hyperlipidemia, unspecified; E66.01 Morbid (severe) obesity due to excess calories; R53.81 Other malaise; E11.40 Type 2 diabetes mellitus with diabetic neuropathy, unspecified; E11.22 Type 2 diabetes mellitus with diabetic chronic kidney disease; I07.1 Rheumatic tricuspid insufficiency; E03.9 Hypothyroidism, unspecified; Z95.5 Presence of coronary angioplasty implant and graft; Z87.440 Personal history of urinary (tract) infections; Z86.73 Personal history of transient ischemic attack (TIA), and cerebral infarction without residual deficits; Z79.899 Other long term (current) drug therapy; Z79.82 Long term (current) use of aspirin; Z79.4 Long term (current) use of insulin; Z79.01 Long term (current) use of anticoagulants; Z74.01 Bed confinement status; Z99.81 Dependence on supplemental oxygen; I25.2 Old myocardial infarction; Z87.891 Personal history of nicotine dependence; Z79.890 Hormone replacement therapy; Z86.718 Personal history of other venous thrombosis and embolism
CPT/HCPCS: 36415; 43239; 51701; 74177; 80048; 80053; 81001; 82272; 82607; 82728; 82746; 83036; 83540; 83550; 83605; 84145; 84484; 85025; 85027; 85610; 85730; 86140; 86850; 86900; 86901; 87040; 87086; 88305; 93005; 93306; 96361; 96365; 96366; 99285

== ENCOUNTER 2023-05-29 09:14 | Emergency (ER) | payer MEDICARE ==
[2023-05-29] MEDS: SODIUM CHLORIDE 0.9% 1,000 ML IV STA (10:31)
[2023-05-29] MEDS: ONDANSETRON 4 MG/2 ML VIAL IVP STA (10:32)
[2023-05-29] MEDS: PANTOPRAZOLE 40 MG/10 ML VIAL IVP STA (10:37)
[2023-05-29 10:39] LABS: Anisocytosis Slight; Basophils % (A) 1 %; Eosinophils # (A) 0.3 k/uL (0-0.7); Eosinophils % (A) 4 %; Hypochromasia Marked; Lymphocytes # (A) 1.1 k/uL (1.0-4.8); Lymphocytes % (A) 18 %; MCH 26.6 pg (25.0-35.0); MCHC 30.6 g/dL (31.0-37.0); MCV 86.8 fL (80.0-100.0); Mean Platelet Volume 7.8; Monocytes # (A) 0.4 k/uL (0-1.0); Monocytes % (A) 7 %; Neutrophils % (A) 67 %; Platelet Count 192 k/uL (150-450); Poikilocytosis Slight; RBC 2.99 m/uL (3.80-5.40); RDW 17.3 % (11.5-15.5)
[2023-05-29 10:48] LABS: Partial Thromboplastin Time 24.5 sec (22.0-30.0); Prothrombin Time 11.3 sec (10.0-12.5)
[2023-05-29 11:12] LABS: ALT 13 U/L (4-34); AST 25 U/L (14-36); African American GFR (CKD) 81 (>60 ml/min/1.73 sqM); Albumin 2.9 g/dL (3.5-5.0); Alkaline Phosphatase 102 U/L (38-126); Amylase 43 U/L (30-110); Blood Urea Nitrogen 23 mg/dL (7-17); Chloride 96 mmol/L (98-107); Glucose 167 mg/dL (74-99); Lipase 114 U/L (23-300); Non-African American GFR(CKD) 70 (>60 ml/min/1.73 sqM); Potassium 4.1 mmol/L (3.5-5.1); Sodium 139 mmol/L (137-145); Total Bilirubin 0.5 mg/dL (0.2-1.3); Total Protein 5.5 g/dL (6.3-8.2)
[2023-05-29 11:18] LABS: Anion Gap 4 mmol/L; Carbon Dioxide 39 mmol/L (22-30)
[2023-05-29 12:49] LABS: Appearance,Urine Cloudy (Clear); Bacteria,Urine Rare /hpf; Bilirubin,Urine Negative (Negative); Blood,Urine Moderate (Negative); Color,Urine Light Yellow; Glucose,Urine (UA) Negative (Negative); Ketones,Urine Negative (Negative); Leukocyte Esterase,Urine Large (Negative); Nitrite,Urine Negative (Negative); Protein,Urine 1+ (Negative); RBC,Urine >182 /hpf (0-5); Squamous Epithelial Cell,Urine <1 /hpf (0-4); Urobilinogen,Urine <2.0 mg/dL (<2.0); WBC,Urine >182 /hpf (0-5)
--- NOTE | 2023-05-29 13:29 | CT ---
EXAMINATION: CT ABDOMEN AND PELVIS WITH IV CONTRAST DATE OF EXAMINATION: 05/29/2023. COMPARISON: 05/15/2023. INDICATION: Abdominal pain. PROCEDURE: Axial CT of the abdomen and pelvis was performed with contrast and sagittal and coronal reformatted images were performed. CT dose lowering techniques were used, to include: automated expos ure control, adjustment for patient size, and/or use of iterative reconstruction. 100 mL of Isovue-30 0 was given intravenously. FINDINGS: LOWER CHEST : The visualized lung bases are clear. There are no pleural or pericardial effusions. T here is moderate global cardiomegaly. Trace pericardial effusion is seen. Partially visualized modera te coronary artery calcifications. ABDOMEN: Liver and Biliary system: Normal. Adrenal glands: Normal. Kidneys and ureters: There is a 4.2 cm cyst in the upper pole the right kidney. There is a right-side d nephroureteral stent which appears in position. There is moderate right-sided hydronephrosis remain ing. Slight motion limits evaluation in this area, however there appears to be a likely stone within the renal pelvis that appears linear measuring approximately 2 cm in length. There is a nonobstructin g 4 mm stone in the inferior pole of the left kidney. No suspicious renal lesions are otherwise seen. Spleen: Normal. Pancreas: Normal. Gallbladder: Surgically absent. Lymph nodes, Peritoneum and mesentery: There is no mesenteric or retroperitoneal lymphadenopathy. Gastrointestinal tract: There are no dilated loops of bowel or free intraperitoneal air. There is no evidence of appendicitis. Aorta/IVC: There is moderate vascular calcification throughout the abdominal aorta without evidence of aneurysmal dilation or dissection. IVC normal. Abdominal wall: Normal. PELVIS: Fluid: There is no free fluid in the pelvis. Lymph Nodes: There is no pelvic or inguinal lymphadenopathy.. Urinary bladder: Corbin catheter seen within the bladder.. BONES: Scattered degenerative disc and facet changes are seen throughout the spine. There are no acu te osseous abnormalities. ADDITIONAL SIGNIFICANT FINDINGS: None. IMPRESSION: 1. Right-sided nephroureteral stent with probable renal pelvic stone in moderate hydronephrosis is no t significant change. 2. Bilateral renal stones. 3. Cardiomegaly with coronary artery calcifications and trace pericardial effusion.
--- NOTE | 2023-05-29 14:57 | ED ---
General Adult HPI - General Chief complaint: Abdominal Pain Stated complaint: ureteral stent infection Time Seen by Provider: 05/29/23 09:29 Source: patient, EMS, RN notes reviewed, old records reviewed Mode of arrival: EMS Limitations: altered mental status - History of Present Illness Initial comments: Patient is a 67-year-old female who presents emergency department over concern for UTI and infected right ureteral stent. This has been a recurrent issue. Patient follows up with a specialist, Dr. Walker at [facility] and I was contacted by patient's PCP Dr. Deluca who is requesting patient be transferred there from our facility. Presents from [facility]. He has baseline mild confusion but currently is A and O x 4. She denies any acute complaints. States she is uncertain why she is here exactly but thinks it has to do with her stent. Was originally placed at our facility however there is now concern for the infection and the urologist to place to, Dr. You recommends further follow-up with Dr. Walker. Patient apparently saw the specialist at [facility] back in February however unknown plan for the patient. - Related Data Home Medications Medication Instructions Recorded Confirmed Montelukast [Singulair] 10 mg PO HS@209908/28/17 05/29/23 Acetaminophen Tab [Tylenol] 1,000 mg PO Q6H PRN 05/22/21 05/29/23 Levothyroxine Sodium [Synthroid] 125 mcg PO DAILY@59905/22/21 05/29/23 Loratadine [Claritin] 10 mg PO DAILY PRN 05/22/21 05/29/23 methocarbamoL [Robaxin] 500 mg PO TID PRN 05/22/21 05/29/23 Isosorbide Mononitrate ER [Imdur] 30 mg PO DAILY@89912/04/21 05/29/23 Nitroglycerin Sl Tabs [Nitrostat] 0.4 mg SL Q5M PRN 12/04/21 05/29/23 DULoxetine HCL [Cymbalta] 30 mg PO BID@09,209909/27/22 05/29/23 allopurinoL 100 mg PO DAILY@89909/27/22 05/29/23 Melatonin 5 mg PO HS@209911/19/22 05/29/23 Aspirin 81 mg PO DAILY@89912/27/22 05/29/23 Atorvastatin [Lipitor] 80 mg PO HS@209912/27/22 05/29/23 Cyanocobalamin [Vitamin B-12] 1,000 mcg PO DAILY@89912/27/22 05/29/23 Metoprolol Succinate (ER) [Toprol 50 mg PO DAILY@89912/27/22 05/29/23 XL] Ascorbic Acid [Vitamin C] 500 mg PO DAILY@89903/05/23 05/29/23 Insulin Lispro [humaLOG Kwikpen] See Protocol SQ QID@08,,,05/15/23 05/29/23 L.acidoph,Paracasei, B.lactis 1 cap PO DAILY@89905/15/23 05/29/23 [Probiotic] Potassium Citrate [Urocit-K] 30 meq PO Q12HR@0900,209905/15/23 05/29/23 Rivaroxaban [Xarelto] 15 mg PO DAILY@169905/15/23 05/29/23 Benzocaine/Menthol Lozeng [Cepacol 1 lozenge PO Q4H PRN 05/29/23 05/29/23 lozenge] Chlorhexidine Gluconate [Peridex] 15 ml PO BID@09,209905/29/23 05/29/23 Furosemide [Lasix] 40 mg PO DAILY@59905/29/23 05/29/23 Insulin Detemir [Levemir Flexpen] 15 units SQ HS@209905/29/23 05/29/23 Lactulose [Cephulac] 30 gm PO BID@0900,209905/29/23 05/29/23 Omeprazole Magnesium [PriLOSEC OTC] 20 mg PO DAILY@0605/29/23 05/29/23 Triamcinolone 0.1% Cream [Kenalog 1 applic VAGINAL Q12H PRN 05/29/23 05/29/23 0.1% Cream] Trihexyphenidyl [Artane] 1 mg PO BID@0900,209905/29/23 05/29/23 guaiFENesin [guaiFENesin Oral 200 mg PO Q4H PRN 05/29/23 05/29/23 Solution] Previous Rx's Medication Instructions Recorded Docusate [Colace] 100 mg PO BID PRN cap 10/01/22 Sennosides [Senokot] 8.6 mg PO DAILY PRN tab 01/08/23 polyethylene glycoL 3350 [Miralax] 17 gm PO DAILY PRN packet 01/08/23 Allergies Allergy/AdvReac Type Severity Reaction Status Date / Time latex Allergy Rash/Hives Verified 05/29/23 11:22 Milk Containing Products Allergy Unknown Verified 05/29/23 11:22 (Dairy) [Dairy] grass pollen AdvReac Sinus Verified 05/29/23 11:22 mold AdvReac Sinus Verified 05/29/23 11:22 pollen extracts AdvReac Sinus Verified 05/29/23 11:22 Tetracyclines AdvReac YEAST Verified 05/29/23 11:22 INFECTION- PREFERS NOT TO TAKE tramadol AdvReac Unknown Verified 05/29/23 11:22 tree and shrub pollen AdvReac Sinus Verified 05/29/23 11:22 ENVIRONMENTAL ALLERGIES AdvReac SINUS Uncoded 05/29/23 11:22 SYMPTOMS-GRASS TREES,DUST,POLLENS,MOLD Review of Systems ROS Statement: Those systems with pertinent positive or pertinent negative responses have been documented in the HPI. Review of Systems: CONST: Denies fever EYES: Denies blurry vision ENT: Denies nasal congestion C/V: Denies Chest pain RESP: Denies shortness of breath GI: Endorses chronic right-sided abdominal pain : Denies dysuria SKIN: Denies rash. MSK: Denies joint pain. NEURO: Denies headache ROS Other: All systems not noted in ROS Statement are negative. Past Medical History Past Medical History: Atrial Fibrillation, Asthma, Chest Pain / Angina, COPD, CVA/TIA, Diabetes Mellitus, Hyperlipidemia, Hypertension, Myocardial Infarction (PR), Renal Disease, Thyroid Disorder Additional Past Medical History / Comment(s): frequent uti's,kidney stones,HEART MURMUR,cardiomyopathy,CHRONIC CONSTIPATION, ECZEMA,SINUS HEADACHES, HX ANEMIA, gout. stage III kidney disease stage 3,lower back pain. 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.FEEt, weakness LT SIDE, ,stg three kidney disease,eye disorder fuchs corneal dystrophy. 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 CATARACT BLACK. WITH IMPLANTS. HEART CATH X 3 TOTAL 3 STENTS, lithotripsy,kidney stent Past Anesthesia/Blood Transfusion Reactions: Motion Sickness Additional Past Anesthesia/Blood Transfusion Reaction / Comment(s): no hx blood transfusion Date of Last Stent Placement:: UNKNOWN Past Psychological History: Anxiety, Depression Smoking Status: Former smoker Past Alcohol Use History: None Reported Past Drug Use History: None Reported - Past Family History Father Additional Family Medical History / Comment(s): "HARDENEING OF THE ARTERIES AT AGE 41. SMOKED AND DRANK ETOH Mother Family Medical History: Cancer Additional Family Medical History / Comment(s): "cyst that ruptured between bowel and bladder" General Exam - General Exam Comments Initial Comments: General: Appears in no acute distress. HEAD: Normal with no signs of head trauma. EYES: PERRLA, EOMI, conjunctiva normal, no discharge. ENT: Hearing grossly intact, normal oropharynx. RESPIRATORY: Clear breath sounds bilaterally. No wheezes, rales, or rhonchi. C/V: Regular rate and rhythm. S1 and S2 auscultated, peripheral pulses 2+ and intact throughout ABD: Abdomen is soft, nondistended. Tender palpation of the right side of the abdomen. No guarding. No rebound tenderness. No peritoneal signs. EXT: Normal range of motion, no obvious deformity SKIN: No rashes or lesions observed on exposed skin. NEURO: Alert and oriented x 4. No focal deficits. Limitations: altered mental status Course Vital Signs 05/29/23 05/29/23 09:17 12:04 Temperature 98.2 F Pulse Rate 68 80 Respiratory 16 20 Rate Blood Pressure 121/67 O2 Sat by Pulse 95 100 Oximetry Medical Decision Making - Medical Decision Making Was pt. sent in by a medical professional or institution (, PA, [employer], urgent care, hospital, or longterm...) When possible be specific @ -Sent from [facility] by Dr. Deluca her PCP who request transfer to [facility]. Did you speak to anyone other than the patient for history (EMS, parent, family, police, friend...)? What history was obtained from this source @ -Spoke with Dr. Deluca the patient's PCP who states that patient is due to follow-up with Dr. Walker for further management of this ureteral stent as the patient keeps having positive urine cultures with intermittent confusion and findings concerning for infection. PCP believes the stent needs to be removed. Our urology team has deferred management to [facility] Dr. Walker. They are requesting transfer to [facility] for further care. Did you review nursing and triage notes (agree or disagree)? Why? @ -I reviewed and agree with nursing and triage notes Were old charts reviewed (outside hosp., previous admission, EMS record, old EKG, old radiological studies, urgent care reports/EKG's, longterm records)? Report findings @ -Old charts reviewed Differential Diagnosis (chest pain, altered mental status, abdominal pain women, abdominal pain men, vaginal bleeding, weakness, fever, dyspnea, syncope, headache, dizziness, GI bleed, back pain, seizure, CVA, palpatations, mental health, musculoskeletal)? @ -Differential Abdominal Pain Women: Appendicitis, Cholecystitis, diverticulosis, ischemic bowel, pancreatitis, hepatitis, UTI, gastroenteritis, AAA, incarcerated hernia, bowel obstruction, constipation, inflammatory bowel, hepatitis, peptic ulcer disease, splenic infarction, perforated viscus, vulvitis, ovarian torsion, PID, kidney stone, placenta abruption, this is not meant to be an all-inclusive list EKG interpreted by me (3pts min.). @ -As above X-rays interpreted by me (1pt min.). @ -None done CT interpreted by me (1pt min.). @ -CT imaging redemonstrates the right-sided ureteral stent as well as unchanged moderate hydronephrosis with renal pelvic stone. U/S interpreted by me (1pt. min.). @ -None done What testing was considered but not performed or refused? (CT, X-rays, U/S, labs)? Why? @ -None What meds were considered but not given or refused? Why? @ -None Did you discuss the management of the patient with other professionals (professionals i.e. , PA, [employer], lab, RT, psych nurse, community mental health social worker, answerer, teacher, minesweeping officer, mattress spring encaser)? Give summary @ -I discussed the case with on-call urology at [facility], Dr. Dejesus who accepted the patient as an ER to ER transfer. Patient will be transferred to a category 2 in the ER at [facility]. Was smoking cessation discussed for >3mins.? @ -No Was critical care preformed (if so, how long)? @ -Yes, 37 minutes. Were there social determinants of health that impacted care today? How? (Homelessness, low income, unemployed, alcoholism, drug addiction, transportation, low edu. Level, literacy, decrease access to med. care, fdc, rehab)? @ -No Was there de-escalation of care discussed even if they declined (Discuss DNR or withdrawal of care, Hospice)? DNR status @ -No What co-morbidities impacted this encounter? (DM, HTN, Smoking, COPD, CAD, Cancer, CVA, ARF, Chemo, Hep., AIDS, mental health diagnosis, sleep apnea, morbid obesity)? @ -Ureteral stent, chronic UTIs and kidney stones Was patient admitted / discharged? Hospital course, mention meds given and route, prescriptions, significant lab abnormalities, going to OR and other pe rtinent info. @ -Based on the patient's presentation and physical exam, presents for eventual transfer to [facility]. He has a ureteral stent that has been growing resistant organisms. Follows up with Dr. Walker at [facility]. I spoke with her PCP who is requesting transfer after workup. Patient be transferred to [facility]. Patient currently has no acute complaints and is ANO x 4. Vital signs are within acceptable limits. She will be given a 1 L fluid bolus, she will be started on IV Zosyn for her recurrent yeast infection. This is based on the urine culture results which showed it was susceptible. Patient was in agreement this plan. Patient's laboratory studies are remarkable for chronic anemia with a hemoglobin of 8.0 which is within her baseline. Lactic acid within normal limits. Urinalysis shows findings consistent with UTI. CT imaging reveals chronic findings including ureteral stent as well as nephrolithiasis on the right. Has chronic moderate hydronephrosis. There was a long delay in obtaining urine results and CT imaging results however once these returned, I did work on transferring the patient. [facility] was contacted and I spoke with on-call urology Dr. Dejesus who accepted the admission. Patient will be sent with imaging results as well as recent urine culture results. Patient updated and was in agreement this plan. Undiagnosed new problem with uncertain prognosis? @ -No Drug Therapy requiring intensive monitoring for toxicity (Heparin, Nitro, Insulin, Cardizem)? @ -No Were any procedures done? @ -No Diagnosis/symptom? @ -UTI, infected ureteral stent, ureteral lithiasis Acute, or Chronic, or Acute on Chronic? @ -Acute on chronic Uncomplicated (without systemic symptoms) or Complicated (systemic symptoms)? @ -Complicated Side effects of treatment? @ -No Exacerbation, Progression, or Severe Exacerbation? @ -No Poses a threat to life or bodily function? How? (Chest pain, USA, PR, pneumonia, PE, COPD, DKA, ARF, appy, cholecystitis, CVA, Diverticulitis, Homicidal, Suicidal, threat to staff... and all critical care pts) @ -Yes - Lab Data Result diagrams: 05/29/23 10:26 05/29/23 10:26 Lab Results 05/29/23 05/29/23 05/29/23 Range/Units 10:26 10:26 10:26 WBC 6.0 (3.8-10.6) k/uL RBC 2.99 L (3.80-5.40) m/uL Hgb 8.0 L (11.4-16.0) gm/dL Hct 26.0 L (34.0-46.0) % MCV 86.8 (80.0-100.0) fL MCH 26.6 (25.0-35.0) pg MCHC 30.6 L (31.0-37.0) g/dL RDW 17.3 H (11.5-15.5) % Plt Count 192 (150-450) k/uL MPV 7.8 Neutrophils % 67 % Lymphocytes % 18 % Monocytes % 7 % Eosinophils % 4 % Basophils % 1 % Neutrophils # 4.0 (1.3-7.7) k/uL Lymphocytes # 1.1 (1.0-4.8) k/uL Monocytes # 0.4 (0-1.0) k/uL Eosinophils # 0.3 (0-0.7) k/uL Basophils # 0.0 (0-0.2) k/uL Hypochromasia Marked Poikilocytosis Slight Anisocytosis Slight PT 11.3 (10.0-12.5) sec INR 1.0 (<1.2) APTT 24.5 (22.0-30.0) sec Sodium 139 (137-145) mmol/L Potassium 4.1 (3.5-5.1) mmol/L Chloride 96 L (98-107) mmol/L Carbon Dioxide 39 H (22-30) mmol/L Anion Gap 4 mmol/L BUN 23 H (7-17) mg/dL Creatinine 0.86 (0.52-1.04) mg/dL Est GFR (CKD-EPI)AfAm 81 (>60 ml/min/1.73 sqM) Est GFR (CKD-EPI)NonAf 70 (>60 ml/min/1.73 sqM) Glucose 167 H (74-99) mg/dL Plasma Lactic Acid Dev (0.7-2.0) mmol/L Calcium 8.0 L (8.4-10.2) mg/dL Total Bilirubin 0.5 (0.2-1.3) mg/dL AST 25 (14-36) U/L ALT 13 (4-34) U/L Alkaline Phosphatase 102 (38-126) U/L Total Protein 5.5 L (6.3-8.2) g/dL Albumin 2.9 L (3.5-5.0) g/dL Amylase 43 (30-110) U/L Lipase 114 (23-300) U/L Urine Color Urine Appearance (Clear) Urine pH (5.0-8.0) Ur Specific [place] (1.001-1.035) Urine Protein (Negative) Urine Glucose (UA) (Negative) Urine Ketones (Negative) Urine Blood (Negative) Urine Nitrite (Negative) Urine Bilirubin (Negative) Urine Urobilinogen (<2.0) mg/dL Ur Leukocyte Esterase (Negative) Urine RBC (0-5) /hpf Urine WBC (0-5) /hpf Urine WBC Clumps (None) /hpf Ur Squamous Epith Cells (0-4) /hpf Urine Bacteria (None) /hpf 05/29/23 05/29/23 Range/Units 10:26 12:00 WBC (3.8-10.6) k/uL RBC (3.80-5.40) m/uL Hgb (11.4-16.0) gm/dL Hct (34.0-46.0) % MCV (80.0-100.0) fL MCH (25.0-35.0) pg MCHC (31.0-37.0) g/dL RDW (11.5-15.5) % Plt Count (150-450) k/uL MPV Neutrophils % % Lymphocytes % % Monocytes % % Eosinophils % % Basophils % % Neutrophils # (1.3-7.7) k/uL Lymphocytes # (1.0-4.8) k/uL Monocytes # (0-1.0) k/uL Eosinophils # (0-0.7) k/uL Basophils # (0-0.2) k/uL Hypochromasia Poikilocytosis Anisocytosis PT (10.0-12.5) sec INR (<1.2) APTT (22.0-30.0) sec Sodium (137-145) mmol/L Potassium (3.5-5.1) mmol/L Chloride (98-107) mmol/L Carbon Dioxide (22-30) mmol/L Anion Gap mmol/L BUN (7-17) mg/dL Creatinine (0.52-1.04) mg/dL Est GFR (CKD-EPI)AfAm (>60 ml/min/1.73 sqM) Est GFR (CKD-EPI)NonAf (>60 ml/min/1.73 sqM) Glucose (74-99) mg/dL Plasma Lactic Acid Dev 1.3 (0.7-2.0) mmol/L Calcium (8.4-10.2) mg/dL Total Bilirubin (0.2-1.3) mg/dL AST (14-36) U/L ALT (4-34) U/L Alkaline Phosphatase (38-126) U/L Total Protein (6.3-8.2) g/dL Albumin (3.5-5.0) g/dL Amylase (30-110) U/L Lipase (23-300) U/L Urine Color Light Yellow Urine Appearance Cloudy H (Clear) Urine pH 8.0 (5.0-8.0) Ur Specific [place] 1.010 (1.001-1.035) Urine Protein 1+ H (Negative) Urine Glucose (UA) Negative (Negative) Urine Ketones Negative (Negative) Urine Blood Moderate H (Negative) Urine Nitrite Negative (Negative) Urine Bilirubin Negative (Negative) Urine Urobilinogen <2.0 (<2.0) mg/dL Ur Leukocyte Esterase Large H (Negative) Urine RBC >182 H (0-5) /hpf Urine WBC >182 H (0-5) /hpf Urine WBC Clumps Many H (None) /hpf Ur Squamous Epith Cells <1 (0-4) /hpf Urine Bacteria Rare H (None) /hpf - EKG Data -: EKG Interpreted by Me EKG Comments: 12-lead Electrocardiogram Interpretation Note EKG was reviewed and interpreted by myself. 12-lead ECG performed at 0958 is interpreted by me as revealing normal sinus rhythm at a rate of 72 beats per minute. [place] is normal. [place] interval is 203 ms, QRS duration is 109 ms, QTc is 444 ms.. There were no ST or T wave abnormalities to suggest myocardial ischemia or injury. R wave progression across the precordium was delayed. By my interpretation this EKG is non-diagnostic for acute ischemia. Critical Care Time Critical Care Time: Yes Total Critical Care Time: 37 Disposition Clinical Impression: Infection associated with ureteral stent, UTI (urinary tract infection), Ureterolithiasis Disposition: OTHER INSTITUTION NOT DEFINED Condition: Stable Referrals: Lor Deluca MD [Primary Care Provider] - 1-2 days Time of Disposition: 14:48 - Out of Hospital Transfer - Req. Specs Out of Hospital Transfer - Requested Specifics: Other Emergency Center (Transfer to [facility] for escalation of care for eval by urology.)
[2023-05-29] MEDS: PIPERACILLIN-TAZOBACTAM 3.375 GM in SODIUM CHLORIDE 0.9% 100 ML IVPB STA (15:29)
[2023-05-29] MEDS ORDERED: PIPERACILLIN-TAZOBACTAM 3.375 GM in SODIUM CHLORIDE 0.9% 100 ML IVPB SCH (16:00)
[2023-05-29 17:23] VITALS: BP 149/79; PULSE 80; RESP 18; TEMP 98.7
== END 2023-05-29 17:06 | disposition other institution (70) ==
LOC: EC 09:14
DX: N39.0 Urinary tract infection, site not specified (principal); N13.2 Hydronephrosis with renal and ureteral calculous obstruction; E11.22 Type 2 diabetes mellitus with diabetic chronic kidney disease; I12.9 Hypertensive chronic kidney disease with stage 1 through stage 4 chronic kidney disease, or unspecified chronic kidney disease; E78.5 Hyperlipidemia, unspecified; I25.10 Atherosclerotic heart disease of native coronary artery without angina pectoris; I25.2 Old myocardial infarction; I48.91 Unspecified atrial fibrillation; N18.30 Chronic kidney disease, stage 3 unspecified; F41.9 Anxiety disorder, unspecified; F32.A Depression, unspecified; J44.89 Other specified chronic obstructive pulmonary disease; E07.9 Disorder of thyroid, unspecified; Z79.899 Other long term (current) drug therapy; Z79.890 Hormone replacement therapy; Z79.4 Long term (current) use of insulin; Z79.84 Long term (current) use of oral hypoglycemic drugs; Z87.891 Personal history of nicotine dependence; Z91.040 Latex allergy status; Z88.5 Allergy status to narcotic agent; Z88.8 Allergy status to other drugs, medicaments and biological substances; Z91.011 Allergy to milk products
CPT/HCPCS: 99291; 96365; 96375 ×2; 96361 ×5; 36415; 93005; 80053; 82150; 83605; 83690; 85025; 85610; 85730; 81001; 87086; 87636; 74177; J2543; J2405; C9113; Q9967

== ENCOUNTER 2024-04-14 07:51 | Inpatient (IN) | payer MEDICARE ==
--- NOTE | 2024-04-14 08:31 | ED ---
General Adult HPI - General Chief complaint: GI Bleed Stated complaint: GI Bleed Time Seen by Provider: 04/14/24 07:52 Source: patient, EMS, RN notes reviewed, old records reviewed Mode of arrival: EMS - History of Present Illness Initial comments: 68-year-old female presenting from long-term with melanotic stool. Patient has history of atrial fibrillation and is currently on Xarelto. She had developed loose dark stool today and has had multiple episodes of diarrhea. Prabhu bello is awake and alert and denies chest or abdominal pain. Denies fever. Patient is bedbound at baseline. - Related Data Home Medications Medication Instructions Recorded Confirmed Montelukast [Singulair] 10 mg PO HS@209908/28/17 04/14/24 Levothyroxine Sodium [Synthroid] 125 mcg PO DAILY@0605/22/21 04/14/24 methocarbamoL [Robaxin] 500 mg PO Q8H PRN 05/22/21 04/14/24 Isosorbide Mononitrate ER [Imdur] 30 mg PO DAILY@0912/04/21 04/14/24 DULoxetine HCL [Cymbalta] 30 mg PO DAILY 09/27/22 04/14/24 allopurinoL 100 mg PO DAILY@0900 09/27/22 04/14/24 Melatonin 5 mg PO HS@209911/19/22 04/14/24 Aspirin 81 mg PO BID@0900,1700 12/27/22 04/14/24 Metoprolol Succinate (ER) [Toprol 50 mg PO DAILY@0900 12/27/22 04/14/24 XL] Rivaroxaban [Xarelto] 15 mg PO DAILY 05/15/23 04/14/24 Omeprazole Magnesium [PriLOSEC OTC] 20 mg PO DAILY@0600 05/29/23 04/14/24 Trihexyphenidyl [Artane] 1 mg PO BID@0900,1700 05/29/23 04/14/24 Acetaminophen Tab [Tylenol] 650 mg PO Q4H PRN 04/14/24 04/14/24 Atorvastatin [Lipitor] 80 mg PO HS 04/14/24 04/14/24 Cadexomer Iodine Gel [Iodosorb Gel] 1 applic TOPICAL DAILY PRN 04/14/24 04/14/24 Cadexomer Iodine Gel [Iodosorb Gel] 1 applic TOPICAL HS 04/14/24 04/14/24 Cetirizine HCl [Zyrtec] 10 mg PO DAILY PRN 04/14/24 04/14/24 Ferrous Gluconate 324 mg PO DAILY 04/14/24 04/14/24 Insulin Glargine,Hum.rec.anlog 13 units SQ HS 04/14/24 04/14/24 [Lantus Solostar Pen] Lactulose [Constulose] 20 gm PO Q12H 04/14/24 04/14/24 Metoprolol Succinate (ER) [Toprol 25 mg PO DAILY 04/14/24 04/14/24 Xl] Prostat Awc 30 ml PO DAILY 04/14/24 04/14/24 Soothe And Cool 1 applic TOPICAL DIRECTED PRN 04/14/24 04/14/24 Soothe And Cool Powder 1 applic TOPICAL BID 04/14/24 04/14/24 Tirzepatide [Mounjaro] 5 mg SQ WE 04/14/24 04/14/24 Z-Guard 1 applic TOPICAL DIRECTED PRN 04/14/24 04/14/24 lisinopriL [Zestril] 5 mg PO DAILY 04/14/24 04/14/24 polyethylene glycoL 3350 [Miralax] 17 gm PO DAILY 04/14/24 04/14/24 Allergies Allergy/AdvReac Type Severity Reaction Status Date / Time latex Allergy Rash/Hives Verified 04/14/24 10:37 Milk Containing Products Allergy Unknown Verified 04/14/24 10:37 (Dairy) [Dairy] grass pollen AdvReac Sinus Verified 04/14/24 10:37 mold AdvReac Sinus Verified 04/14/24 10:37 pollen extracts AdvReac Sinus Verified 04/14/24 10:37 Tetracyclines AdvReac YEAST Verified 04/14/24 10:37 INFECTION- PREFERS NOT TO TAKE tramadol AdvReac Unknown Verified 04/14/24 10:37 tree and shrub pollen AdvReac Sinus Verified 04/14/24 10:37 ENVIRONMENTAL ALLERGIES AdvReac SINUS Uncoded 04/14/24 10:37 SYMPTOMS-GRASS TREES,DUST,POLLENS,MOLD Review of Systems ROS Statement: Those systems with pertinent positive or pertinent negative responses have been documented in the HPI. ROS Other: All systems not noted in ROS Statement are negative. Past Medical History Past Medical History: Atrial Fibrillation, Asthma, Chest Pain / Angina, COPD, CVA/TIA, Diabetes Mellitus, Hyperlipidemia, Hypertension, Myocardial Infarction ([place]), Renal Disease, Thyroid Disorder Additional Past Medical History / Comment(s): frequent uti's,kidney stones,HEART MURMUR,cardiomyopathy,CHRONIC CONSTIPATION, ECZEMA,SINUS HEADACHES, HX ANEMIA, gout. stage III kidney disease stage 3,lower back pain. 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.FEEt, weakness LT SIDE, ,stg three kidney disease,eye disorder fuchs corneal dystrophy. Last Myocardial Infarction Date:: 2022 History of Any Multi-Drug Resistant Organisms: ESBL, MRSA, VRE Date of last positivie culture/infection: 03/25/24 ESBL; 05/29/23 VRE; 01/02/22 MRSA MDRO Source:: Urine-VRE; Urine-MRSA; Urine-ESBL Past Surgical History: Heart Catheterization, Heart Catheterization With Stent Additional Past Surgical History / Comment(s): PARTIAL HYSTERECTOMY 03/18/14 @ [facility]. CATARACT BLACK. WITH IMPLANTS. HEART CATH X 3 TOTAL 3 STENTS, lithotripsy,kidney stent Past Anesthesia/Blood Transfusion Reactions: Motion Sickness Additional Past Anesthesia/Blood Transfusion Reaction / Comment(s): no hx blood transfusion Date of Last Stent Placement:: UNKNOWN Past Psychological History: Anxiety, Depression Smoking Status: Former smoker - Past Family History Father Additional Family Medical History / Comment(s): "HARDENEING OF THE ARTERIES AT AGE 41. SMOKED AND DRANK ETOH Mother Family Medical History: Cancer Additional Family Medical History / Comment(s): "cyst that ruptured between bowel and bladder" General Exam General appearance: alert, in no apparent distress Head exam: Present: atraumatic, normocephalic Eye exam: Present: normal appearance, PERRL ENT exam: Present: normal exam Neck exam: Present: normal inspection. Absent: tenderness, meningismus Respiratory exam: Present: normal lung sounds bilaterally. Absent: respiratory distress, wheezes Cardiovascular Exam: Present: regular rate, irregular rhythm GI/Abdominal exam: Present: soft. Absent: distended, tenderness Rectal exam: Present: black stool Neurological exam: Present: alert, oriented X3. Absent: motor sensory deficit Psychiatric exam: Present: normal affect, normal mood Skin exam: Present: pallor Course Vital Signs 04/14/24 04/14/24 04/14/24 07:56 08:19 08:55 Temperature 97.3 F L 97.3 F L Pulse Rate 77 77 62 Respiratory 16 16 16 Rate Blood Pressure 74/28 77/28 82/28 O2 Sat by Pulse 100 100 95 Oximetry 04/14/24 04/14/24 04/14/24 09:00 09:15 10:11 Temperature Pulse Rate 75 78 76 Respiratory 16 16 16 Rate Blood Pressure 94/38 91/44 62/33 O2 Sat by Pulse 98 97 98 Oximetry 04/14/24 11:00 Temperature Pulse Rate 79 Respiratory 16 Rate Blood Pressure 111/62 O2 Sat by Pulse 98 Oximetry Medical Decision Making - Medical Decision Making Was pt. sent in by a medical professional or institution (, PA, GEOGRAPHY PROFESSOR, urgent care, hospital, or long-term...) When possible be specific @ -No Did you speak to anyone other than the patient for history (EMS, parent, family, police, friend...)? What history was obtained from this source @ -No Did you review nursing and triage notes (agree or disagree)? Why? @ -I reviewed and agree with nursing and triage notes Were old charts reviewed (outside hosp., previous admission, EMS record, old EKG, old radiological studies, urgent care reports/EKG's, long-term records)? Report findings @ -No old charts were reviewed Differential GI Bleed: Esophageal varices, aortoenteric fistula, Radha-Rogers, gastritis, peptic ulcer disease, diverticulosis, inflammatory bowel disease, hemorrhoids, fissure, colitis, malignancy, Meckel's diverticulum, this is not meant to be an all- inclusive list. EKG interpreted by me (3pts min.). @Sinus rhythm with first-degree AV block, low voltage, rate of 79, [place] interval 215, QRS duration 102, QTc [address] segment elevation. X-rays interpreted by me (1pt min.). @ -None done CT interpreted by me (1pt min.). @ -None done U/S interpreted by me (1pt. min.). @ -None done What testing was considered but not performed or refused? (CT, X-rays, U/S, labs)? Why? @ -None What meds were considered but not given or refused? Why? @ -None Did you discuss the management of the patient with other professionals (professionals i.e. , PA, GEOGRAPHY PROFESSOR, lab, RT, psych nurse, oncology social work, lockstitch zipper setter, teacher, police officer crime prevention, case preparer and liner)? Give summary @ -Yes, [facility] Was smoking cessation discussed for >3mins.? @ -No Was critical care preformed (if so, how long)? @ -Yes, 35 minutes Were there social determinants of health that impacted care today? How? (Homelessness, low income, unemployed, alcoholism, drug addiction, transportation, low edu. Level, literacy, decrease access to med. care, shelter, rehab)? @ -No Was there de-escalation of care discussed even if they declined (Discuss DNR or withdrawal of care, Hospice)? DNR status @ -No What co-morbidities impacted this encounter? (DM, HTN, Smoking, COPD, CAD, Cancer, CVA, ARF, Chemo, Hep., AIDS, mental health diagnosis, sleep apnea, morbid obesity)? @History of atrial fibrillation on Xarelto Was patient admitted / discharged? Hospital course, mention meds given and route, prescriptions, significant lab abnormalities, going to OR and other pertinent info. @68-year-old female presenting with melanotic stool, history of chronic anemia. Hemoglobin is 7.4 which is relatively stable for this patient. She is given 80 mg of Protonix in the emergency department and placed on Protonix twice daily. Her Xarelto will be held at this time. Her hemoglobin will be monitored every 6 hours. She is admitted to [facility] with gastroenterology on consult. Undiagnosed new problem with uncertain prognosis? @ -No Drug Therapy requiring intensive monitoring for toxicity (Heparin, Nitro, Insulin, Cardizem)? @ -No Were any procedures done? @ -No Diagnosis/symptom? @ -Melanotic stool, chronic anemia, GI bleed Acute, or Chronic, or Acute on Chronic? @Acute Uncomplicated (without systemic symptoms) or Complicated (systemic symptoms)? @ -Default Side effects of treatment? @ -No Exacerbation, Progression, or Severe Exacerbation? @ -No Poses a threat to life or bodily function? How? (Chest pain, USA, PA, pneumonia, PE, COPD, DKA, ARF, appy, cholecystitis, CVA, Diverticulitis, Homicidal, Suicidal, threat to staff... and all critical care pts) @Yes, GI bleed, hemorrhagic shock - Lab Data Result diagrams: 04/14/24 09:50 04/14/24 08:27 Lab Results 04/14/24 04/14/24 04/14/24 Range/Units 08:27 08:27 08:27 WBC 11.2 H (3.8-10.6) k/uL RBC 2.27 L (3.80-5.40) m/uL Hgb 7.4 L (11.4-16.0) gm/dL Hct 22.0 L (34.0-46.0) % MCV 97.1 (80.0-100.0) fL MCH 32.8 (25.0-35.0) pg MCHC 33.7 (31.0-37.0) g/dL RDW 17.5 H (11.5-15.5) % Plt Count 214 (150-450) k/uL MPV 7.8 Neutrophils % 72 % Lymphocytes % 17 % Monocytes % 5 % Eosinophils % 4 % Basophils % 0 % Neutrophils # 8.1 H (1.3-7.7) k/uL Lymphocytes # 2.0 (1.0-4.8) k/uL Monocytes # 0.6 (0-1.0) k/uL Eosinophils # 0.4 (0-0.7) k/uL Basophils # 0.0 (0-0.2) k/uL Anisocytosis Slight Macrocytosis Slight Sodium 133 L (137-145) mmol/L Potassium 4.9 (3.5-5.1) mmol/L Chloride 106 (98-107) mmol/L Carbon Dioxide 18 L (22-30) mmol/L Anion Gap 9 mmol/L BUN 59 H (7-17) mg/dL Creatinine 1.26 H (0.52-1.04) mg/dL Est GFR (CKD-EPI)AfAm 50 (>60 ml/min/1.73 sqM) Est GFR (CKD-EPI)NonAf 44 (>60 ml/min/1.73 sqM) Glucose 178 H (74-99) mg/dL Calcium 8.9 (8.4-10.2) mg/dL Magnesium 2.1 (1.6-2.3) mg/dL Total Bilirubin 0.2 (0.2-1.3) mg/dL AST 19 (14-36) U/L ALT 11 (4-34) U/L Alkaline Phosphatase 112 (38-126) U/L Total Protein 5.4 L (6.3-8.2) g/dL Albumin 3.0 L (3.5-5.0) g/dL Stool Occult Blood Positive H (Negative) Critical Care Time Critical Care Time: Yes Total Critical Care Time: 35 Disposition Clinical Impression: GI bleed, Anemia Disposition: ADMITTED IP TO THIS [facility] Condition: Stable Is patient prescribed a controlled substance at d/c from ED?: No Time of Disposition: 09:18
[2024-04-14 08:49] LABS: Anisocytosis Slight; Basophils % (A) 0 %; Eosinophils # (A) 0.4 k/uL (0-0.7); Eosinophils % (A) 4 %; HGB 7.4 gm/dL (11.4-16.0); Lymphocytes % (A) 17 %; MCH 32.8 pg (25.0-35.0); MCHC 33.7 g/dL (31.0-37.0); MCV 97.1 fL (80.0-100.0); Macrocytosis Slight; Mean Platelet Volume 7.8; Monocytes # (A) 0.6 k/uL (0-1.0); Monocytes % (A) 5 %; Neutrophils # (A) 8.1 k/uL (1.3-7.7); Neutrophils % (A) 72 %; Platelet Count 214 k/uL (150-450); RBC 2.27 m/uL (3.80-5.40); RDW 17.5 % (11.5-15.5); WBC 11.2 k/uL (3.8-10.6)
[2024-04-14] MEDS: PANTOPRAZOLE 40 MG/10 ML VIAL IVP STA ×2 (08:53)
[2024-04-14] MEDS: SODIUM CHLORIDE 0.9% 1,000 ML IV ONE (08:53)
[2024-04-14 08:59] LABS: ALT 11 U/L (4-34); AST 19 U/L (14-36); African American GFR (CKD) 50 (>60 ml/min/1.73 sqM); Alkaline Phosphatase 112 U/L (38-126); Anion Gap 9 mmol/L; Blood Urea Nitrogen 59 mg/dL (7-17); Calcium 8.9 mg/dL (8.4-10.2); Carbon Dioxide 18 mmol/L (22-30); Chloride 106 mmol/L (98-107); Glucose 178 mg/dL (74-99); Magnesium 2.1 mg/dL (1.6-2.3); Non-African American GFR(CKD) 44 (>60 ml/min/1.73 sqM); Potassium 4.9 mmol/L (3.5-5.1); Sodium 133 mmol/L (137-145); Total Bilirubin 0.2 mg/dL (0.2-1.3); Total Protein 5.4 g/dL (6.3-8.2)
[2024-04-14] MEDS ORDERED: NALOXONE 0.4 MG/ML 1 ML VIAL IV PRN (09:15)
[2024-04-14] MEDS ORDERED: ONDANSETRON 4 MG/2 ML VIAL IVP PRN (09:15)
[2024-04-14] MEDS: SODIUM CHLORIDE 0.9% 1,000 ML IV SCH (09:56)
[2024-04-14 10:15] LABS: Anisocytosis Slight; Basophils % (A) 0 %; Eosinophils # (A) 0.3 k/uL (0-0.7); Eosinophils % (A) 2 %; HCT 23.1 % (34.0-46.0); HGB 7.2 gm/dL (11.4-16.0); Hypochromasia Moderate; Lymphocytes # (A) 1.5 k/uL (1.0-4.8); Lymphocytes % (A) 13 %; MCH 31.3 pg (25.0-35.0); MCHC 31.2 g/dL (31.0-37.0); MCV 100.2 fL (80.0-100.0); Macrocytosis Slight; Monocytes # (A) 0.3 k/uL (0-1.0); Monocytes % (A) 3 %; Neutrophils # (A) 9.2 k/uL (1.3-7.7); Neutrophils % (A) 80 %; Platelet Count 206 k/uL (150-450); RBC 2.31 m/uL (3.80-5.40); WBC 11.4 k/uL (3.8-10.6)
[2024-04-14 10:29] LABS: INR 1.1 (<1.2); Partial Thromboplastin Time 22.4 sec (22.0-30.0); Prothrombin Time 12.4 sec (10.0-12.5)
[2024-04-14] MEDS ORDERED: methocarbamoL 500 MG TAB PO PRN (13:07)
[2024-04-14] MEDS ORDERED: LORATADINE 10 MG TAB PO PRN (13:07)
[2024-04-14] MEDS ORDERED: LACTULOSE 20 GM/30 ML CUP PO PRN (13:07)
[2024-04-14] MEDS ORDERED: MIDODRINE 5 MG TAB PO PRN (13:10)
--- NOTE | 2024-04-14 13:18 | P.HPIM ---
History of Present Illness This is a pleasant 68 years old female from With past medical history of multiple medical problems as below. At baseline she is bedridden for more than a year and close 2 years as she explains. Patient presents because of black stool, she says she is always have black stool on and off for several months and years. But this time is different. It is associated with some cramps and when they checked her her black stool was contin uous with little fresh blood in it She states that lately she has been complaining from pain in her lower back at the sacral area and over the last 2 to 3 days she has been using Excedrin 4 pills each when of 500 mg. She is currently she has some mild tenderness and pain in the right abdomen, no rebound tenderness. She denies chest pain or dyspnea, no headache dizziness weakness or numbness. No urinary complaints. During the encounter she has black stool soiled including the sacral pressure ulcers She has few superficial excoriated skin ulcers in the sacral area with pink and swelling areas. Hemodynamically she is little bit on the low side with blood pressure 74/28 on admission, currently 91/74, heart rate is controlled but also she is on beta- go metoprolol WBC is slightly elevated at 11.4, hemoglobin 7.4 and 7.2, BMP is unremarkable except for mildly elevated creatinine 1.26. Liver enzymes not elevated. Occult blood in the stool is positive EKG showing sinus rhythm at [address]-T changes Review of Systems Review of systems CONSTITUTIONAL: No fever, no malaise, no fatigue. HEENT: No recent visual problems or hearing problems. Denied any sore throat. CARDIOVASCULAR: No orthopnea, PND, no palpitations, no syncope. PULMONARY: No shortness of breath, no cough, no hemoptysis. GASTROINTESTINAL: No diarrhea, no nausea, no vomiting, no abdominal pain. Normoactive bowel sounds. NEUROLOGICAL: No headaches, no weakness, no numbness. HEMATOLOGICAL: Denies any bleeding or petechiae. GENITOURINARY: Denies any burning micturition, frequency, or urgency. MUSCULOSKELETAL/RHEUMATOLOGICAL: Denies any joint pain, swelling, or any muscle pain. ENDOCRINE: Denies any polyuria or polydipsia. Past Medical History Past Medical History: Atrial Fibrillation, Asthma, Chest Pain / Angina, COPD, CVA/TIA, Diabetes Mellitus, Hyperlipidemia, Hypertension, Myocardial Infarction ([place]), Renal Disease, Thyroid Disorder Additional Past Medical History / Comment(s): frequent uti's,kidney stones,HEART MURMUR,cardiomyopathy,CHRONIC CONSTIPATION, ECZEMA,SINUS HEADACHES, HX ANEMIA, gout. stage III kidney disease stage 3,lower back pain. 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.FEEt, weakness LT SIDE, ,stg three kidney disease,eye disorder fuchs corneal dystrophy. Last Myocardial Infarction Date:: 2022 History of Any Multi-Drug Resistant Organisms: ESBL, MRSA, VRE Date of last positivie culture/infection: 03/25/24 ESBL; 05/29/23 VRE; 01/02/22 MRSA MDRO Source:: Urine-VRE; Urine-MRSA; Urine-ESBL Past Surgical History: Heart Catheterization, Heart Catheterization With Stent Additional Past Surgical History / Comment(s): PARTIAL HYSTERECTOMY 03/18/14 @ [facility]. CATARACT BLACK. WITH IMPLANTS. HEART CATH X 3 TOTAL 3 STENTS, lithotripsy,kidney stent Past Anesthesia/Blood Transfusion Reactions: Motion Sickness Additional Past Anesthesia/Blood Transfusion Reaction / Comment(s): no hx blood transfusion Date of Last Stent Placement:: UNKNOWN Past Psychological History: Anxiety, Depression Smoking Status: Former smoker - Past Family History Father Additional Family Medical History / Comment(s): "HARDENEING OF THE ARTERIES AT AGE 41. SMOKED AND DRANK ETOH Mother Family Medical History: Cancer Additional Family Medical History / Comment(s): "cyst that ruptured between bowel and bladder" Medications and Allergies Home Medications Medication Instructions Recorded Confirmed Type Montelukast [Singulair] 10 mg PO HS@209908/28/17 04/14/24 History Levothyroxine Sodium [Synthroid] 125 mcg PO DAILY@0605/22/21 04/14/24 History methocarbamoL [Robaxin] 500 mg PO Q8H PRN 05/22/21 04/14/24 History Isosorbide Mononitrate ER [Imdur] 30 mg PO DAILY@89912/04/21 04/14/24 History DULoxetine HCL [Cymbalta] 30 mg PO DAILY 09/27/22 04/14/24 History allopurinoL 100 mg PO DAILY@0900 09/27/22 04/14/24 History Melatonin 5 mg PO HS@209911/19/22 04/14/24 History Aspirin 81 mg PO BID@0900,1700 12/27/22 04/14/24 History Metoprolol Succinate (ER) [Toprol 50 mg PO DAILY@0900 12/27/22 04/14/24 History XL] Rivaroxaban [Xarelto] 15 mg PO DAILY 05/15/23 04/14/24 History Omeprazole Magnesium [PriLOSEC OTC] 20 mg PO DAILY@0600 05/29/23 04/14/24 History Trihexyphenidyl [Artane] 1 mg PO BID@0900,1700 05/29/23 04/14/24 History Acetaminophen Tab [Tylenol] 650 mg PO Q4H PRN 04/14/24 04/14/24 History Atorvastatin [Lipitor] 80 mg PO HS 04/14/24 04/14/24 History Cadexomer Iodine Gel [Iodosorb Gel] 1 applic TOPICAL DAILY PRN 04/14/24 04/14/24 History Cadexomer Iodine Gel [Iodosorb Gel] 1 applic TOPICAL HS 04/14/24 04/14/24 History Cetirizine HCl [Zyrtec] 10 mg PO DAILY PRN 04/14/24 04/14/24 History Ferrous Gluconate 324 mg PO DAILY 04/14/24 04/14/24 History Insulin Glargine,Hum.rec.anlog 13 units SQ 04/14/24 04/14/24 History [Lantus Solostar Pen] Lactulose [Constulose] 20 gm PO Q12H 04/14/24 04/14/24 History Metoprolol Succinate (ER) [Toprol 25 mg PO DAILY 04/14/24 04/14/24 History Xl] Prostat Awc 30 ml PO DAILY 04/14/24 04/14/24 History Soothe And Cool 1 applic TOPICAL DIRECTED PRN 04/14/24 04/14/24 History Soothe And Cool Powder 1 applic TOPICAL BID 04/14/24 04/14/24 History Tirzepatide [Mounjaro] 5 mg SQ WE 04/14/24 04/14/24 History Z-Guard 1 applic TOPICAL DIRECTED PRN 04/14/24 04/14/24 History lisinopriL [Zestril] 5 mg PO DAILY 04/14/24 04/14/24 History polyethylene glycoL 3350 [Miralax] 17 gm PO DAILY 04/14/24 04/14/24 History Allergies Allergy/AdvReac Type Severity Reaction Status Date / Time latex Allergy Rash/Hives Verified 04/14/24 10:37 Milk Containing Products Allergy Unknown Verified 04/14/24 10:37 (Dairy) [Dairy] grass pollen AdvReac Sinus Verified 04/14/24 10:37 mold AdvReac Sinus Verified 04/14/24 10:37 pollen extracts AdvReac Sinus Verified 04/14/24 10:37 Tetracyclines AdvReac YEAST Verified 04/14/24 10:37 INFECTION- PREFERS NOT TO TAKE tramadol AdvReac Unknown Verified 04/14/24 10:37 tree and shrub pollen AdvReac Sinus Verified 04/14/24 10:37 ENVIRONMENTAL ALLERGIES AdvReac SINUS Uncoded 04/14/24 10:37 SYMPTOMS-GRASS TREES,DUST,POLLENS,MOLD Physical Exam Vitals: Vital Signs Temp Pulse Resp BP Pulse Ox 04/14/24 12:31 90 16 99 04/14/24 12:00 77 18 96/24 97 04/14/24 11:00 79 16 111/62 98 04/14/24 10:11 76 16 62/33 98 04/14/24 09:15 78 16 91/44 97 04/14/24 09:00 75 16 94/38 98 04/14/24 08:55 62 16 82/28 95 04/14/24 08:19 97.3 F L 77 16 77/28 100 04/14/24 07:56 97.3 F L 77 16 74/28 100 Intake and Output 04/13/24 04/14/24 04/14/24 22:59 06:59 14:59 Other: Weight 99.337 kg -GENERAL: The patient is alert and oriented x3, not in any acute distress. Well developed, well nourished. Morbidly obese HEENT: Pupils are round and equally reacting to light. EOMI. No scleral icterus. No conjunctival pallor. Normocephalic, atraumatic. No pharyngeal erythema. No thyromegaly. CARDIOVASCULAR: S1 and S2 present. No murmurs, rubs, or gallops. PULMONARY: Chest is clear to auscultation, no wheezing , no crackles. ABDOMEN: Soft, nontender, nondistended, normoactive bowel sounds. No palpable organomegaly. -MUSCULOSKELETAL: No joint swelling or deformity. Sacral pressure ulcers, few excoriated superficial ulceration with surrounding pinkish discoloration and mild swelling and tender EXTREMITIES: No cyanosis, clubbing, or pedal edema. -NEUROLOGICAL: Gross neurological examination did not reveal any focal deficits. Bedridden, chronic weakness of both lower extremities SKIN: No rashes. no petechiae. Results CBC & Chem 7: 04/14/24 09:50 04/14/24 08:27 Labs: Abnormal Lab Results - Last 24 Hours (Table) 04/14/24 04/14/24 04/14/24 Range/Units 08:27 08:27 08:27 WBC 11.2 H (3.8-10.6) k/uL RBC 2.27 L (3.80-5.40) m/uL Hgb 7.4 L (11.4-16.0) gm/dL Hct 22.0 L (34.0-46.0) % MCV (80.0-100.0) fL RDW 17.5 H (11.5-15.5) % Neutrophils # 8.1 H (1.3-7.7) k/uL Sodium 133 L (137-145) mmol/L Carbon Dioxide 18 L (22-30) mmol/L BUN 59 H (7-17) mg/dL Creatinine 1.26 H (0.52-1.04) mg/dL Glucose 178 H (74-99) mg/dL Total Protein 5.4 L (6.3-8.2) g/dL Albumin 3.0 L (3.5-5.0) g/dL Stool Occult Blood Positive H (Negative) Crossmatch 04/14/24 04/14/24 Range/Units 09:50 10:00 WBC 11.4 H (3.8-10.6) k/uL RBC 2.31 L (3.80-5.40) m/uL Hgb 7.2 L (11.4-16.0) gm/dL Hct 23.1 L (34.0-46.0) % MCV 100.2 H (80.0-100.0) fL RDW 17.0 H (11.5-15.5) % Neutrophils # 9.2 H (1.3-7.7) k/uL Sodium (137-145) mmol/L Carbon Dioxide (22-30) mmol/L BUN (7-17) mg/dL Creatinine (0.52-1.04) mg/dL Glucose (74-99) mg/dL Total Protein (6.3-8.2) g/dL Albumin (3.5-5.0) g/dL Stool Occult Blood (Negative) Crossmatch See Detail Assessment and Plan Assessment: Acute GI bleed Severe acute blood loss anemia Sacral pressure ulcers stage II Acute kidney injury A-fib with controlled rate [facility] Morbid obesity Hypothyroidism Plan: Monitor hemoglobin Start Protonix twice daily Continue with normal saline 75 mL/h with midodrine as needed for hypotension Hold Xarelto, aspirin Hold Imdur 30 mg, lisinopril 5 mg and metoprolol 25 mg and 50 mg from [facility] GI team consult Surgery team consult avoid NSAIDs Avoid NSAIDs Labs and medication were reviewed.. Continue same treatment. Continue with symptomatic treatment. Resume home medication. Monitor labs and vitals. DVT and GI prophylaxis. Further recommendations as per clinical course of the patient DVT prophylaxis: S no anticoagulation in view of GI bleed heparin GI Prophylaxis: ppi Prognosis is guarded
--- NOTE | 2024-04-14 14:44 | P.CONS ---
History of Present Illness - Reason for Consult Consult date: 04/14/24 Anemia, GI bleed Requesting physician: Kehinde Degroot - Chief Complaint Diarrhea - History of Present Illness This is a pleasant 68-year-old female who is bedridden with multiple comorbidities including sacral ulcer, atrial fibrillation on Xarelto, asthma, chest pain, COPD, TIA/CVA, diabetes mellitus, hyperlipidemia, hypertension, [place], chronic renal disease and thyroid disease. Patient presented with complaints of loose stools for last 1 week that have been black. She states that she has had black stools off and on and anemia for last 1 to 2 years. She has had multiple upper endoscopies for evaluation of her anemia. Last upper endoscopy was 05/19/[address] Hay Chacon with findings of mild gastritis, prior to that February 2023 again with findings of antral gastritis no active bleeding. She states that she has had a colonoscopy within the last couple years done at [facility]. She has had previous attempts here however has had poor prep. She denies any vomiting just loose bowel movements for the last week or so which she states have been black. States that she has required blood transfusions in the past. She states that she takes Excedrin usually daily for headaches. Again patient has a sacral wound and is complaining of pain on her backside. She denies any abdominal pain, no nausea and no vomiting. WBC 11.2 hemoglobin 7.4 hematocrit 2 2 platelet count 214,000 INR 1.1 BUN 59 creatinine 1.2 stool occult blood positive Review of Systems REVIEW OF SYSTEMS: CARDIOPULMONARY: No chest pain or shortness of breath. Gastrointestinal: Abdominal pain. No no nausea or vomiting. No hematemesis, coffee-ground emesis. Patient reports black stool. GENITOURINARY: No dysuria or hematuria. MUSCULOSKELETAL: Reports normal range of motion., Joint pain. Bed ridden. SKIN: No rashes. No jaundice. Sacral ulcer reported per patient. ENDOCRINE: No chills, fevers. No excessive weight gain or loss. No polydipsia or polyuria. PSYCHIATRIC: Unremarkable. NEUROLOGY: No change in mental status. Denies dizziness, headache. ENT: Vision unremarkable. CONSTITUTIONAL: No recent weight loss. No fever, chills, night sweats. Past Medical History Past Medical History: Atrial Fibrillation, Asthma, Chest Pain / Angina, COPD, CVA/TIA, Diabetes Mellitus, Hyperlipidemia, Hypertension, Myocardial Infarction ([place]), Renal Disease, Thyroid Disorder Additional Past Medical History / Comment(s): frequent uti's,kidney stones,HEART MURMUR,cardiomyopathy,CHRONIC CONSTIPATION, ECZEMA,SINUS HEADACHES, HX ANEMIA, gout. stage III kidney disease stage 3,lower back pain. 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.FEEt, weakness LT SIDE, ,stg three kidney disease,eye disorder fuchs corneal dystrophy. Last Myocardial Infarction Date:: 2022 History of Any Multi-Drug Resistant Organisms: ESBL, MRSA, VRE Year Discovered:: 03/25/24 ESBL; 05/29/23 VRE; 01/02/22 MRSA MDRO Source:: Urine-VRE; Urine-MRSA; Urine-ESBL Past Surgical History: Heart Catheterization, Heart Catheterization With Stent Additional Past Surgical History / Comment(s): PARTIAL HYSTERECTOMY 03/18/14 @ [facility]. CATARACT BLACK. WITH IMPLANTS. HEART CATH X 3 TOTAL 3 STENTS, lithotripsy,kidney stent Past Anesthesia/Blood Transfusion Reactions: Motion Sickness Additional Past Anesthesia/Blood Transfusion Reaction / Comm: no hx blood transfusion Date of Last Stent Placement:: UNKNOWN Past Psychological History: Anxiety, Depression Smoking Status: Former smoker - Past Family History Father Additional Family Medical History / Comment(s): "HARDENEING OF THE ARTERIES AT AGE 41. SMOKED AND DRANK ETOH Mother Family Medical History: Cancer Additional Family Medical History / Comment(s): "cyst that ruptured between bowel and bladder" Medications and Allergies Home Medications Medication Instructions Recorded Confirmed Type Montelukast [Singulair] 10 mg PO HS@209908/28/17 04/14/24 History Levothyroxine Sodium [Synthroid] 125 mcg PO DAILY@0605/22/21 04/14/24 History methocarbamoL [Robaxin] 500 mg PO Q8H PRN 05/22/21 04/14/24 History Isosorbide Mononitrate ER [Imdur] 30 mg PO DAILY@89912/04/21 04/14/24 History DULoxetine HCL [Cymbalta] 30 mg PO DAILY 09/27/22 04/14/24 History allopurinoL 100 mg PO DAILY@0900 09/27/22 04/14/24 History Melatonin 5 mg PO HS@209911/19/22 04/14/24 History Aspirin 81 mg PO BID@0900,1700 12/27/22 04/14/24 History Metoprolol Succinate (ER) [Toprol 50 mg PO DAILY@0900 12/27/22 04/14/24 History XL] Rivaroxaban [Xarelto] 15 mg PO DAILY 05/15/23 04/14/24 History Omeprazole Magnesium [PriLOSEC OTC] 20 mg PO DAILY@0600 05/29/23 04/14/24 History Trihexyphenidyl [Artane] 1 mg PO BID@0900,1700 05/29/23 04/14/24 History Acetaminophen Tab [Tylenol] 650 mg PO Q4H PRN 04/14/24 04/14/24 History Atorvastatin [Lipitor] 80 mg PO HS 04/14/24 04/14/24 History Cadexomer Iodine Gel [Iodosorb Gel] 1 applic TOPICAL DAILY PRN 04/14/24 04/14/24 History Cadexomer Iodine Gel [Iodosorb Gel] 1 applic TOPICAL HS 04/14/24 04/14/24 History Cetirizine HCl [Zyrtec] 10 mg PO DAILY PRN 04/14/24 04/14/24 History Ferrous Gluconate 324 mg PO DAILY 04/14/24 04/14/24 History Insulin Glargine,Hum.rec.anlog 13 units SQ HS 04/14/24 04/14/24 History [Lantus Solostar Pen] Lactulose [Constulose] 20 gm PO Q12H 04/14/24 04/14/24 History Metoprolol Succinate (ER) [Toprol 25 mg PO DAILY 04/14/24 04/14/24 History Xl] Prostat Awc 30 ml PO DAILY 04/14/24 04/14/24 History Soothe And Cool 1 applic TOPICAL DIRECTED PRN 04/14/24 04/14/24 History Soothe And Cool Powder 1 applic TOPICAL BID 04/14/24 04/14/24 History Tirzepatide [Mounjaro] 5 mg SQ WE 04/14/24 04/14/24 History Z-Guard 1 applic TOPICAL DIRECTED PRN 04/14/24 04/14/24 History lisinopriL [Zestril] 5 mg PO DAILY 04/14/24 04/14/24 History polyethylene glycoL 3350 [Miralax] 17 gm PO DAILY 04/14/24 04/14/24 History Allergies Allergy/AdvReac Type Severity Reaction Status Date / Time latex Allergy Rash/Hives Verified 04/14/24 10:37 Milk Containing Products Allergy Unknown Verified 04/14/24 10:37 (Dairy) [Dairy] grass pollen AdvReac Sinus Verified 04/14/24 10:37 mold AdvReac Sinus Verified 04/14/24 10:37 pollen extracts AdvReac Sinus Verified 04/14/24 10:37 Tetracyclines AdvReac YEAST Verified 04/14/24 10:37 INFECTION- PREFERS NOT TO TAKE tramadol AdvReac Unknown Verified 04/14/24 10:37 tree and shrub pollen AdvReac Sinus Verified 04/14/24 10:37 ENVIRONMENTAL ALLERGIES AdvReac SINUS Uncoded 04/14/24 10:37 SYMPTOMS-GRASS TREES,DUST,POLLENS,MOLD Physical Exam Vitals: Vital Signs Temp Pulse Resp BP Pulse Ox 04/14/24 12:31 90 16 99 04/14/24 12:00 77 18 96/24 97 04/14/24 11:00 79 16 111/62 98 04/14/24 10:11 76 16 62/33 98 04/14/24 09:15 78 16 91/44 97 04/14/24 09:00 75 16 94/38 98 04/14/24 08:55 62 16 82/28 95 04/14/24 08:19 97.3 F L 77 16 77/28 100 04/14/24 07:56 97.3 F L 77 16 74/28 100 Intake and Output 04/13/24 04/14/24 04/14/24 22:59 06:59 14:59 Other: Weight 99.337 kg General appearance: The patient is alert, oriented, appears in no acute distress. HET: Head is normocephalic and atraumatic. Conjunctiva pink. Sclera anicteric. Neck: Supple without lymphadenopathy. Trachea midline. Heart: Regular. Lungs: Equal expansion, normal respiratory effort. Abdomen: Soft, morbidly obese, mild upper abdominal tenderness, nondistended. Skin: No rashes. No jaundice. Sacral ulcer. Extremities: Normal skin color and turgor. No pedal edema. Neurological: No focal deficits. Alert and oriented x3. Results CBC & Chem 7: 04/14/24 09:50 04/14/24 08:27 Labs: Abnormal Lab Results - Last 24 Hours (Table) 04/14/24 04/14/24 04/14/24 Range/Units 08:27 08:27 08:27 WBC 11.2 H (3.8-10.6) k/uL RBC 2.27 L (3.80-5.40) m/uL Hgb 7.4 L (11.4-16.0) gm/dL Hct 22.0 L (34.0-46.0) % MCV (80.0-100.0) fL RDW 17.5 H (11.5-15.5) % Neutrophils # 8.1 H (1.3-7.7) k/uL Sodium 133 L (137-145) mmol/L Carbon Dioxide 18 L (22-30) mmol/L BUN 59 H (7-17) mg/dL Creatinine 1.26 H (0.52-1.04) mg/dL Glucose 178 H (74-99) mg/dL Total Protein 5.4 L (6.3-8.2) g/dL Albumin 3.0 L (3.5-5.0) g/dL Stool Occult Blood Positive H (Negative) Crossmatch 04/14/24 04/14/24 Range/Units 09:50 10:00 WBC 11.4 H (3.8-10.6) k/uL RBC 2.31 L (3.80-5.40) m/uL Hgb 7.2 L (11.4-16.0) gm/dL Hct 23.1 L (34.0-46.0) % MCV 100.2 H (80.0-100.0) fL RDW 17.0 H (11.5-15.5) % Neutrophils # 9.2 H (1.3-7.7) k/uL Sodium (137-145) mmol/L Carbon Dioxide (22-30) mmol/L BUN (7-17) mg/dL Creatinine (0.52-1.04) mg/dL Glucose (74-99) mg/dL Total Protein (6.3-8.2) g/dL Albumin (3.5-5.0) g/dL Stool Occult Blood (Negative) Crossmatch See Detail Assessment and Plan (1) Positive fecal occult blood test Narrative/Plan: 68-year-old female with multiple comorbidities presented for diarrhea for the last week which she states has been black. She states that she has had intermittent black stools for last 1 to 2 years and chronic anemia. She has had multiple endoscopic evaluation without any findings of bleeding. Last upper endoscopy done in May 2023 with findings of mild gastritis. No reports of last colonoscopy she believes it was a couple years ago done at [facility] without any findings for anemia. She is on anticoagulation for atrial fibrillation. Unclear etiology of anemia, will proceed with upper endoscopy to evaluate for possible GI source and may proceed to small bowel video capsule endoscopy. This could also be anemia of chronic disease secondary to multiple comorbidities as well as chronic wound. Current Visit: Yes Status: Acute Code(s): R19.5 - OTHER FECAL ABNORMALITIES SNOMED Code(s): 22745298 (2) Chronic anemia Current Visit: No Status: Acute Code(s): D64.9 - ANEMIA, UNSPECIFIED SNOMED Code(s): 347485660 (3) Morbid obesity with BMI of 40.0-44.9, adult Current Visit: Yes Status: Acute Code(s): E66.01 - MORBID (SEVERE) OBESITY DUE TO EXCESS CALORIES; Z68.41 - BODY MASS INDEX [BMI] 40.0-44.9, ADULT SNOMED Code(s): 408216933 (4) Chronic kidney disease Current Visit: Yes Status: Acute Code(s): N18.9 - CHRONIC KIDNEY DISEASE, UNSPECIFIED SNOMED Code(s): 768526879 (5) Sacral wound Current Visit: Yes Status: Acute Code(s): S31.000A - UNSP OPN WND LOW BACK AND PELV W/O PENET RETROPERITON, INIT SNOMED Code(s): 488568043 (6) Diabetes Current Visit: No Status: Chronic Code(s): E11.9 - TYPE 2 DIABETES MELLITUS WITHOUT COMPLICATIONS SNOMED Code(s): 28438683 (7) HTN (hypertension) Current Visit: No Status: Chronic Code(s): I10 - ESSENTIAL (PRIMARY) HYPERTENSION SNOMED Code(s): 10512603 Plan: 1. Continue symptomatic and supportive care 2. Clear liquid diet, n.p.o. after midnight 3. Protonix 40 mg daily 4. Hold anticoagulation 5. Avoid NSAID use 6. Daily CBC, transfuse for hemoglobin less than 7 7. Iron studies ordered 8. Patient will be scheduled for upper endoscopy and possible small bowel video capsule endoscopy tomorrow Thank you for this consultation, we will continue to follow. Dr. Nora Mcmanus I agree with the dictator's note, documented as a scribe by Faye Antunez.
[2024-04-14] MEDS: SODIUM CHLORIDE 0.9% 500 ML 500 ML IV ONE (18:05)
[2024-04-14 20:46] LABS: % Iron Saturation 29.34 (12.00-45.00)
[2024-04-14 20:57] LABS: Anisocytosis Slight; Basophils # (A) 0.1 k/uL (0-0.2); Basophils % (A) 1 %; Eosinophils # (A) 0.3 k/uL (0-0.7); Eosinophils % (A) 2 %; HCT 26.4 % (34.0-46.0); Hypochromasia Slight; Lymphocytes # (A) 2.4 k/uL (1.0-4.8); Lymphocytes % (A) 20 %; MCH 31.2 pg (25.0-35.0); MCHC 33.5 g/dL (31.0-37.0); Macrocytosis Slight; Mean Platelet Volume 7.4; Monocytes # (A) 0.6 k/uL (0-1.0); Monocytes % (A) 5 %; Neutrophils # (A) 8.6 k/uL (1.3-7.7); Neutrophils % (A) 71 %; Platelet Count 208 k/uL (150-450); Poikilocytosis Slight; RBC 2.83 m/uL (3.80-5.40); RDW 18.6 % (11.5-15.5); WBC 12.1 k/uL (3.8-10.6)
[2024-04-14 20:59] LABS: HGB 8.8 gm/dL (11.4-16.0); MCV 93.3 fL (80.0-100.0)
[2024-04-14] MEDS: ATORVASTATIN 80 MG TAB PO SCH (21:32)
[2024-04-14] MEDS: MELATONIN 5 MG TABLET PO PRN (21:32)
[2024-04-14] MEDS: ACETAMINOPHEN TAB 325 MG TAB PO PRN (21:32)
[2024-04-14] MEDS: PANTOPRAZOLE 40 MG/10 ML VIAL IVP SCH (21:32)
[2024-04-15 01:57] LABS: Anisocytosis Slight; Basophils % (A) 0 %; Eosinophils # (A) 0.4 k/uL (0-0.7); Eosinophils % (A) 4 %; HCT 24.5 % (34.0-46.0); HGB 8.1 gm/dL (11.4-16.0); Hypochromasia Slight; Lymphocytes # (A) 2.3 k/uL (1.0-4.8); Lymphocytes % (A) 21 %; MCH 30.8 pg (25.0-35.0); MCHC 33.1 g/dL (31.0-37.0); MCV 93.1 fL (80.0-100.0); Mean Platelet Volume 6.9; Monocytes # (A) 0.6 k/uL (0-1.0); Monocytes % (A) 5 %; Neutrophils # (A) 7.2 k/uL (1.3-7.7); Neutrophils % (A) 67 %; Platelet Count 192 k/uL (150-450); Poikilocytosis Slight; RBC 2.63 m/uL (3.80-5.40); RDW 18.2 % (11.5-15.5); WBC 10.6 k/uL (3.8-10.6)
[2024-04-15 02:42] LABS: African American GFR (CKD) 57 (>60 ml/min/1.73 sqM); Anion Gap 7 mmol/L; Blood Urea Nitrogen 45 mg/dL (7-17); Calcium 8.2 mg/dL (8.4-10.2); Carbon Dioxide 17 mmol/L (22-30); Chloride 109 mmol/L (98-107); Glucose 114 mg/dL (74-99); Non-African American GFR(CKD) 50 (>60 ml/min/1.73 sqM); Potassium 4.1 mmol/L (3.5-5.1); Sodium 133 mmol/L (137-145)
[2024-04-15] MEDS: LEVOTHYROXINE 125 MCG TAB PO SCH (05:48)
[2024-04-15 05:58] LABS: Glucose,Whole Blood 125 mg/dL (70-110)
--- NOTE | 2024-04-15 07:58 | P.PN ---
Subjective This is a pleasant 68 years old female from With past medical history of multiple medical problems as below. At baseline she is bedridden for more than a year and close 2 years as she explains. Patient presents because of black stool, she says she is always have black stool on and off for several months and years. But this time is different. It is associated with some cramps and when they checked her her black stool was continuous with little fresh blood in it She states that lately she has been complaining from pain in her lower back at the sacral area and over the last 2 to 3 days she has been using Excedrin 4 pills each when of 500 mg. She is currently she has some mild tenderness and pain in the right abdomen, no rebound tenderness. She denies chest pain or dyspnea, no headache dizziness weakness or numbness. No urinary complaints. During the encounter she has black stool soiled including the sacral pressure ulcers She has few superficial excoriated skin ulcers in the sacral area with pink and swelling areas. Hemodynamically she is little bit on the low side with blood pressure 74/28 on admission, currently 91/74, heart rate is controlled but also she is on beta- go metoprolol WBC is slightly elevated at 11.4, hemoglobin 7.4 and 7.2, BMP is unremarkable except for mildly elevated creatinine 1.26. Liver enzymes not elevated. Occult blood in the stool is positive EKG showing sinus rhythm at [address]-T changes 04/15 Patient is awake alert looks comfortable Her abdominal pain is better Black stool stopped Still complains from pain in her pressure ulcers in the sacral area. Patient has been n.p.o. going for EGD this morning Hemoglobin improved after blood transfusion Check labs tomorrow patient is an acceptable risk to undergo EGD and Scope today and there is no contraindication from medical perspective although there is still some small risk Review of systems CONSTITUTIONAL: No fever, no malaise, no fatigue. HEMATOLOGICAL: Denies any bleeding or petechiae. GENITOURINARY: Denies any burning micturition, frequency, or urgency. MUSCULOSKELETAL/RHEUMATOLOGICAL: Denies any joint pain, swelling, or any muscle pain. ENDOCRINE: Denies any polyuria or polydipsia. Active Medications Generic Name Dose Route Start Last Admin Trade Name Freq PRN Reason Stop Dose Admin Acetaminophen 650 mg 04/14/24 09:15 04/14/24 21:32 Acetaminophen Tab 325 Mg Tab PO 650 mg Q6HR PRN Administration Mild Pain or Fever > 100.5 Allopurinol 100 mg 04/15/24 09:00 Allopurinol 100 Mg Tab PO DAILY@0900 [facility] Atorvastatin Calcium 80 mg 04/14/24 21:00 04/14/24 21:32 Atorvastatin 80 Mg Tab PO 80 mg HS YOANA Administration Duloxetine HCl 30 mg 04/15/24 09:00 Duloxetine Hcl 30 Mg Capsule.Dr PO DAILY [facility] Sodium Chloride 1,000 mls @ 75 mls/hr 04/15/24 08:00 Saline 0.9% IV 04/16/24 07:59 .[id number] [facility] Lactulose 20 gm 04/14/24 13:07 Lactulose 20 Gm/30 Ml Cup PO Q12H PRN Constipation Levothyroxine Sodium 125 mcg 04/15/24 06:00 04/15/24 05:48 Levothyroxine 125 Mcg Tab PO 125 mcg DAILY@0600 [facility] Administration Loratadine 10 mg 04/14/24 13:07 Loratadine 10 Mg Tab PO DAILY PRN Allergy Symptoms Melatonin 5 mg 04/14/24 13:07 04/14/24 21:32 Melatonin 5 Mg Tablet PO 5 mg HS@2100 PRN Administration Insomnia Methocarbamol 500 mg 04/14/24 13:07 Methocarbamol 500 Mg Tab PO Q8H PRN Muscle Spasm Midodrine 10 mg 04/14/24 13:10 Midodrine 5 Mg Tab PO AC-TID PRN Blood Pressure - Low Naloxone HCl 0.2 mg 04/14/24 09:15 Naloxone 0.4 Mg/Ml 1 Ml Vial IV Q2M PRN Opioid Reversal Ondansetron HCl 4 mg 04/14/24 09:15 Ondansetron 4 Mg/2 Ml Vial IVP Q8HR PRN Nausea And Vomiting Pantoprazole Sodium 40 mg 04/14/24 21:00 04/14/24 21:32 Pantoprazole 40 Mg/10 Ml Vial IVP 40 mg BID YOANA Administration Objective - Vital Signs Vital signs: Vital Signs Temp 97.6 F 04/15/24 00:30 Pulse 89 04/15/24 04:00 Resp 16 04/15/24 04:00 BP 109/63 04/15/24 04:00 Pulse Ox 98 04/14/24 20:00 FiO2 Intake & Output 04/14/24 04/15/24 04/15/24 18:59 06:59 18:59 Intake Total 310 Output Total 300 Balance 310 -300 Weight 99.337 kg 98.3 kg Intake: Blood Product 310 Rc As-1 Unit 310 [id number] Output: Urine 300 Other: Voiding Method Indwelling Catheter - Exam -GENERAL: The patient is alert and oriented x3, not in any acute distress. Well developed, well nourished. Morbidly obese HEENT: Pupils are round and equally reacting to light. EOMI. No scleral icterus. No conjunctival pallor. Normocephalic, atraumatic. No pharyngeal erythema. No thyromegaly. CARDIOVASCULAR: S1 and S2 present. No murmurs, rubs, or gallops. PULMONARY: Chest is clear to auscultation, no wheezing , no crackles. ABDOMEN: Soft, nontender, nondistended, normoactive bowel sounds. No palpable organomegaly. -MUSCULOSKELETAL: No joint swelling or deformity. Sacral pressure ulcers, few excoriated superficial ulceration with surrounding pinkish discoloration and mild swelling and tender EXTREMITIES: No cyanosis, clubbing, or pedal edema. -NEUROLOGICAL: Gross neurological examination did not reveal any focal deficits. Bedridden, chronic weakness of both lower extremities SKIN: No rashes. no petechiae. - Labs CBC & Chem 7: 04/15/24 01:30 04/15/24 01:30 Labs: Abnormal Lab Results - Last 24 Hours (Table) 04/14/24 04/14/24 04/14/24 Range/Units 08:27 08:27 08:27 WBC 11.2 H (3.8-10.6) k/uL RBC 2.27 L (3.80-5.40) m/uL Hgb 7.4 L (11.4-16.0) gm/dL Hct 22.0 L (34.0-46.0) % MCV (80.0-100.0) fL RDW 17.5 H (11.5-15.5) % Neutrophils # 8.1 H (1.3-7.7) k/uL Sodium 133 L (137-145) mmol/L Chloride (98-107) mmol/L Carbon Dioxide 18 L (22-30) mmol/L BUN 59 H (7-17) mg/dL Creatinine 1.26 H (0.52-1.04) mg/dL Glucose 178 H (74-99) mg/dL POC Glucose (mg/dL) (70-110) mg/dL Calcium (8.4-10.2) mg/dL Transferrin (204.0-354.0) mg/dL Ferritin (10.0-291.0) ng/mL Total Protein 5.4 L (6.3-8.2) g/dL Albumin 3.0 L (3.5-5.0) g/dL Stool Occult Blood Positive H (Negative) Crossmatch 04/14/24 04/14/24 04/14/24 Range/Units 09:50 09:50 10:00 WBC 11.4 H (3.8-10.6) k/uL RBC 2.31 L (3.80-5.40) m/uL Hgb 7.2 L (11.4-16.0) gm/dL Hct 23.1 L (34.0-46.0) % MCV 100.2 H (80.0-100.0) fL RDW 17.0 H (11.5-15.5) % Neutrophils # 9.2 H (1.3-7.7) k/uL Sodium (137-145) mmol/L Chloride (98-107) mmol/L Carbon Dioxide (22-30) mmol/L BUN (7-17) mg/dL Creatinine (0.52-1.04) mg/dL Glucose (74-99) mg/dL POC Glucose (mg/dL) (70-110) mg/dL Calcium (8.4-10.2) mg/dL Transferrin 185.0 L (204.0-354.0) mg/dL Ferritin 978.0 H (10.0-291.0) ng/mL Total Protein (6.3-8.2) g/dL Albumin (3.5-5.0) g/dL Stool Occult Blood (Negative) Crossmatch See Detail 04/14/24 04/15/24 04/15/24 Range/Units 20:02 01:30 01:30 WBC 12.1 H (3.8-10.6) k/uL RBC 2.83 L 2.63 L (3.80-5.40) m/uL Hgb 8.8 L D 8.1 L (11.4-16.0) gm/dL Hct 26.4 L 24.5 L (34.0-46.0) % MCV (80.0-100.0) fL RDW 18.6 H 18.2 H (11.5-15.5) % Neutrophils # 8.6 H (1.3-7.7) k/uL Sodium 133 L (137-145) mmol/L Chloride 109 H (98-107) mmol/L Carbon Dioxide 17 L (22-30) mmol/L BUN 45 H (7-17) mg/dL Creatinine 1.13 H (0.52-1.04) mg/dL Glucose 114 H (74-99) mg/dL POC Glucose (mg/dL) (70-110) mg/dL Calcium 8.2 L (8.4-10.2) mg/dL Transferrin (204.0-354.0) mg/dL Ferritin (10.0-291.0) ng/mL Total Protein (6.3-8.2) g/dL Albumin (3.5-5.0) g/dL Stool Occult Blood (Negative) Crossmatch 04/15/24 Range/Units 05:57 WBC (3.8-10.6) k/uL RBC (3.80-5.40) m/uL Hgb (11.4-16.0) gm/dL Hct (34.0-46.0) % MCV (80.0-100.0) fL RDW (11.5-15.5) % Neutrophils # (1.3-7.7) k/uL Sodium (137-145) mmol/L Chloride (98-107) mmol/L Carbon Dioxide (22-30) mmol/L BUN (7-17) mg/dL Creatinine (0.52-1.04) mg/dL Glucose (74-99) mg/dL POC Glucose (mg/dL) 125 H (70-110) mg/dL Calcium (8.4-10.2) mg/dL Transferrin (204.0-354.0) mg/dL Ferritin (10.0-291.0) ng/mL Total Protein (6.3-8.2) g/dL Albumin (3.5-5.0) g/dL Stool Occult Blood (Negative) Crossmatch Assessment and Plan Assessment: Preop clearance Acute GI bleed Severe acute blood loss anemia Sacral pressure ulcers stage II Acute kidney injury A-fib with controlled rate on Xarelto at [facility] Morbid obesity Hypothyroidism Plan: Monitor hemoglobin Start Protonix twice daily She should be continued with normal saline 75 mL/h Hold Xarelto, aspirin Hold Imdur 30 mg, lisinopril 5 mg and metoprolol 25 mg and 50 mg from [facility] GI team consult Surgery team consult avoid NSAIDs Avoid NSAIDs Labs and medication were reviewed.. Continue same treatment. Continue with symptomatic treatment. Resume home medication. Monitor labs and vitals. DVT and GI prophylaxis. Further recommendations as per clinical course of the patient DVT prophylaxis: no anticoagulation in view of GI bleed heparin GI Prophylaxis: ppi Prognosis is guarded
[2024-04-15] MEDS: allopurinoL 100 MG TAB PO SCH (10:19)
[2024-04-15] MEDS: SODIUM CHLORIDE 0.9% 1,000 ML IV SCH (10:23)
[2024-04-15] MEDS: DULoxetine HCL 30 MG CAPSULE.DR PO SCH (10:23)
--- NOTE | 2024-04-15 10:47 | P.CONS ---
History of Present Illness - Reason for Consult Consult date: 04/15/24 wound care - History of Present Illness This is a 68-year-old patient who is a resident at [facility] with a chronic sacral ulceration. Patient has a cluster of 2 ulcerations 1 midline and one to the left buttocks. Ulcerations are stage II pressure ulcer. Patient states that they have been utilizing a cream to the site. And turning patient every 2 hours. Midline ulceration measures approximately 1 x 0.3 x 0.2 with granulation seen throughout the wound bed the wound edges are rolled and unattached. There is no tunneling or undermining noted. The second ulceration is to the left buttocks measuring approximately 2 x 2 x 0.2 with granulation seen throughout and fat layer exposed. No tunneling or undermining noted. Patient's past medical history significant for atrial fibrillation, asthma, chest pain, COPD, CVA, diabetes, hyperlipidemia, hypertension, LA, renal disease, thyroid disease. Review Of Systems: Constitutional: No fever, no chills, no night sweats. No weight change. No weakness, fatigue or lethargy. No daytime sleepiness. Integumentary:reports wounds, no lesions. No rash or pruritus. No unusual bruising. No change in hair or nails. Physical exam: General Appearance: Alert, cooperative, no distress, appears stated age. Skin: See HPI all other Skin color, texture, tugor normal, no rashes or lesions. Neurologic: Alert oriented x3 Assessment: 1. Stage II pressure ulcer sacrum 2. Stage II pressure ulcer left buttocks 3. Diabetes with skin ulceration Plan: 1. Apply honey gel to open ulcerations and bordered. Turn patient every 2 hours. Utilize a offloading appropriate surface. Utilize air cushion while sitting. Thank you for the consultation any questions please contact the wound care center DNP note has been reviewed and discussed with Dr. Prieto and the impression and plan of care has been directed as dictated. Past Medical History Past Medical History: Atrial Fibrillation, Asthma, Chest Pain / Angina, COPD, CVA/TIA, Diabetes Mellitus, Hyperlipidemia, Hypertension, Myocardial Infarction (LA), Renal Disease, Thyroid Disorder Additional Past Medical History / Comment(s): frequent uti's,kidney stones,HEART MURMUR,cardiomyopathy,CHRONIC CONSTIPATION, ECZEMA,SINUS HEADACHES, HX ANEMIA, gout. stage III kidney disease stage 3,lower back pain. 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.FEEt, weakness LT SIDE, ,stg three kidney disease,eye disorder fuchs corneal dystrophy. Last Myocardial Infarction Date:: 2022 History of Any Multi-Drug Resistant Organisms: ESBL, MRSA, VRE Year Discovered:: 03/25/24 ESBL; 05/29/23 VRE; 01/02/22 MRSA MDRO Source:: Urine-VRE; Urine-MRSA; Urine-ESBL Past Surgical History: Heart Catheterization, Heart Catheterization With Stent Additional Past Surgical History / Comment(s): PARTIAL HYSTERECTOMY 03/18/14 @ [facility]. CATARACT BLACK. WITH IMPLANTS. HEART CATH X 3 TOTAL 3 STENTS, lithotripsy,kidney stent Past Anesthesia/Blood Transfusion Reactions: No Reported Reaction, Motion Si ckness Additional Past Anesthesia/Blood Transfusion Reaction / Comm: no hx blood transfusion Date of Last Stent Placement:: UNKNOWN Past Psychological History: Anxiety, Depression Additional Psychological History / Comment(s): Pt resides at [facility] on [place], "I have recently had hallucinations, not like where I don't know reality, but like a dream state" Smoking Status: Former smoker Past Alcohol Use History: None Reported Additional Past Alcohol Use History / Comment(s): SMOKED AGE 15 TO AGE 21 -WHEN QUIT WAS SMOKING 1/2 PPD Past Drug Use History: None Reported - Past Family History Father Additional Family Medical History / Comment(s): "HARDENEING OF THE ARTERIES AT AGE 41. SMOKED AND DRANK ETOH Mother Family Medical History: Cancer Additional Family Medical History / Comment(s): "cyst that ruptured between bowel and bladder" Medications and Allergies Home Medications Medication Instructions Recorded Confirmed Type Montelukast [Singulair] 10 mg PO HS@2100 08/28/17 04/14/24 History Levothyroxine Sodium [Synthroid] 125 mcg PO DAILY@59905/22/21 04/14/24 History methocarbamoL [Robaxin] 500 mg PO Q8H PRN 05/22/21 04/14/24 History Isosorbide Mononitrate ER [Imdur] 30 mg PO DAILY@89912/04/21 04/14/24 History DULoxetine HCL [Cymbalta] 30 mg PO DAILY 09/27/22 04/14/24 History allopurinoL 100 mg PO DAILY@89909/27/22 04/14/24 History Melatonin 5 mg PO HS@2100 11/19/22 04/14/24 History Aspirin 81 mg PO BID@0900,1700 12/27/22 04/14/24 History Metoprolol Succinate (ER) [Toprol 50 mg PO DAILY@0900 12/27/22 04/14/24 History XL] Rivaroxaban [Xarelto] 15 mg PO DAILY 05/15/23 04/14/24 History Omeprazole Magnesium [PriLOSEC OTC] 20 mg PO DAILY@0600 05/29/23 04/14/24 History Trihexyphenidyl [Artane] 1 mg PO BID@0900,1700 05/29/23 04/14/24 History Acetaminophen Tab [Tylenol] 650 mg PO Q4H PRN 04/14/24 04/14/24 History Atorvastatin [Lipitor] 80 mg PO HS 04/14/24 04/14/24 History Cadexomer Iodine Gel [Iodosorb Gel] 1 applic TOPICAL DAILY PRN 04/14/24 04/14/24 History Cadexomer Iodine Gel [Iodosorb Gel] 1 applic TOPICAL HS 04/14/24 04/14/24 History Cetirizine HCl [Zyrtec] 10 mg PO DAILY PRN 04/14/24 04/14/24 History Ferrous Gluconate 324 mg PO DAILY 04/14/24 04/14/24 History Insulin Glargine,Hum.rec.anlog 13 units SQ HS 04/14/24 04/14/24 History [Lantus Solostar Pen] Lactulose [Constulose] 20 gm PO Q12H 04/14/24 04/14/24 History Metoprolol Succinate (ER) [Toprol 25 mg PO DAILY 04/14/24 04/14/24 History Xl] Prostat Awc 30 ml PO DAILY 04/14/24 04/14/24 History Soothe And Cool 1 applic TOPICAL DIRECTED PRN 04/14/24 04/14/24 History Soothe And Cool Powder 1 applic TOPICAL BID 04/14/24 04/14/24 History Tirzepatide [Mounjaro] 5 mg SQ WE 04/14/24 04/14/24 History Z-Guard 1 applic TOPICAL DIRECTED PRN 04/14/24 04/14/24 History lisinopriL [Zestril] 5 mg PO DAILY 04/14/24 04/14/24 History polyethylene glycoL 3350 [Miralax] 17 gm PO DAILY 04/14/24 04/14/24 History Allergies Allergy/AdvReac Type Severity Reaction Status Date / Time latex Allergy Rash/Hives Verified 04/14/24 10:37 Milk Containing Products Allergy Unknown Verified 04/14/24 10:37 (Dairy) [Dairy] grass pollen AdvReac Sinus Verified 04/14/24 10:37 mold AdvReac Sinus Verified 04/14/24 10:37 pollen extracts AdvReac Sinus Verified 04/14/24 10:37 Tetracyclines AdvReac YEAST Verified 04/14/24 10:37 INFECTION- PREFERS NOT TO TAKE tramadol AdvReac Unknown Verified 04/14/24 10:37 tree and shrub pollen AdvReac Sinus Verified 04/14/24 10:37 ENVIRONMENTAL ALLERGIES AdvReac SINUS Uncoded 04/14/24 10:37 SYMPTOMS-GRASS TREES,DUST,POLLENS,MOLD Physical Exam Vitals: Vital Signs Temp Pulse Pulse Resp BP BP Pulse Ox 04/15/24 08:20 89 16 109/66 04/15/24 04:00 89 16 109/63 04/15/24 00:30 97.6 F 88 16 90/64 04/14/24 20:45 97.6 F 85 16 97/48 04/14/24 20:00 83 16 98/49 98 04/14/24 19:00 89 16 94/57 97 04/14/24 18:32 82 16 102/59 97 04/14/24 18:00 79 16 83/32 97 04/14/24 17:44 98.1 F 80 14 88/39 97 04/14/24 15:14 97.9 F 81 16 104/66 97 04/14/24 14:54 97.7 F 80 18 99/52 97 04/14/24 14:44 97.5 F L 79 16 116/68 97 04/14/24 14:13 77 16 91/69 97 04/14/24 12:31 90 16 99 04/14/24 12:00 77 18 96/24 97 04/14/24 11:00 79 16 111/62 98 Intake and Output 04/14/24 04/15/24 04/15/24 22:59 06:59 14:59 Intake Total 310 Output Total 300 Balance 310 -300 Intake: Blood Product 310 Rc As-1 Unit 310 [id number] Output: Urine 300 Other: Voiding Method Indwelling Catheter Indwelling Catheter Indwelling Catheter Weight 98.3 kg 98.3 kg Results CBC & Chem 7: 04/15/24 01:30 04/15/24 01:30 Labs: Abnormal Lab Results - Last 24 Hours (Table) 04/14/24 04/14/24 04/14/24 Range/Units 09:50 10:00 20:02 WBC 12.1 H (3.8-10.6) k/uL RBC 2.83 L (3.80-5.40) m/uL Hgb 8.8 L D (11.4-16.0) gm/dL Hct 26.4 L (34.0-46.0) % RDW 18.6 H (11.5-15.5) % Neutrophils # 8.6 H (1.3-7.7) k/uL Sodium (137-145) mmol/L Chloride (98-107) mmol/L Carbon Dioxide (22-30) mmol/L BUN (7-17) mg/dL Creatinine (0.52-1.04) mg/dL Glucose (74-99) mg/dL POC Glucose (mg/dL) (70-110) mg/dL Calcium (8.4-10.2) mg/dL Transferrin 185.0 L (204.0-354.0) mg/dL Ferritin 978.0 H (10.0-291.0) ng/mL Crossmatch See Detail 04/15/24 04/15/24 04/15/24 Range/Units 01:30 01:30 05:57 WBC (3.8-10.6) k/uL RBC 2.63 L (3.80-5.40) m/uL Hgb 8.1 L (11.4-16.0) gm/dL Hct 24.5 L (34.0-46.0) % RDW 18.2 H (11.5-15.5) % Neutrophils # (1.3-7.7) k/uL Sodium 133 L (137-145) mmol/L Chloride 109 H (98-107) mmol/L Carbon Dioxide 17 L (22-30) mmol/L BUN 45 H (7-17) mg/dL Creatinine 1.13 H (0.52-1.04) mg/dL Glucose 114 H (74-99) mg/dL POC Glucose (mg/dL) 125 H (70-110) mg/dL Calcium 8.2 L (8.4-10.2) mg/dL Transferrin (204.0-354.0) mg/dL Ferritin (10.0-291.0) ng/mL Crossmatch Assessment and Plan (1) Stage II pressure ulcer of left buttock Current Visit: Yes Status: Acute Code(s): L89.322 - PRESSURE ULCER OF LEFT BUTTOCK, STAGE 2 SNOMED Code(s): 99253907736198 (2) Stage II pressure ulcer of sacral region Current Visit: Yes Status: Acute Code(s): L89.152 - PRESSURE ULCER OF SACRAL REGION, STAGE 2 SNOMED Code(s): 75141513704412 (3) Type 2 diabetes mellitus with other skin ulcer Current Visit: Yes Status: Acute Code(s): E11.622 - TYPE 2 DIABETES MELLITUS WITH OTHER SKIN ULCER; L98.499 - NON-PRESSURE CHRONIC ULCER OF SKIN OF SITES W UNSP SEVERITY SNOMED Code(s): 902894901234246
[2024-04-15 11:40] LABS: Glucose,Whole Blood 108 mg/dL (70-110)
[2024-04-15] MEDS ORDERED: LIDOCAINE 2% (PF) 20 MG/ML 5 ML VIAL ONE (16:03)
[2024-04-15] MEDS: IV FLUID CONTINUATION 1,000 ML IV ONE (16:03)
[2024-04-15] MEDS ORDERED: PROPOFOL 10 MG/ML 20 ML VIAL IV ONE (16:03)
--- NOTE | 2024-04-15 16:29 | P.PCN ---
Date of Procedure: 04/15/24 Procedure(s) Performed: BRIEF HISTORY: Patient is a 68-year-old, pleasant, white female admitted to hospital with black tarry stools for the last few days duration.. Patient has been on Xarelto which has been on hold for the last 2 days. Initial hemoglobin was 7 g/dL requiring a unit of PRBC transfusion. She is scheduled for an upper endoscopy to evaluate further PROCEDURE PERFORMED: Esophagogastroduodenoscopy with cautery using a gold probe. PREOPERATIVE DIAGNOSIS: Anemia and black tarry stools. IV sedation per anesthesia. PROCEDURE: After informed consent was obtained, the patient was brought into the endoscopy unit. IV sedation was administered by Anesthesia under continuous monitoring. Initially the Olympus GIF-140 video endoscope was inserted into the mouth. Esophagus intubated without any difficulty. It was gradually advanced into the stomach and duodenum and carefully examined. The bulb and the second part of the duodenum appeared normal. Along the duodenal sweep there were 2 small nonbleeding angiectasia identified which was cauterized using a gold probe. The scope at this time was withdrawn to the stomach, adequately insufflated with air, and upon careful examination, mucosa of the antrum, body, cardia and the fundus appeared normal. The scope was then withdrawn into the esophagus. The GE junction was located at 39 cm from the incisors. There was a 3 mm tongue of Cruz's appearing mucosa just proximal to the GE junction which was biopsied. The rest of the esophagus appeared normal. There were no erosions or ulcerations seen and the patient tolerated the procedure well. IMPRESSION: 1. 2 small nonbleeding duodenal angiectasia status post cautery using a gold probe. 2. Short segment Cruz's esophagus. RECOMMENDATIONS: The findings of this examination were discussed with the patient. She was advised to follow with the biopsy results. Monitor CBC daily. If it is stable she can be started back on the Xarelto tomorrow. Advance diet as tolerated..
[2024-04-15 16:51] LABS: Glucose,Whole Blood 88 mg/dL (70-110)
[2024-04-15 20:26] LABS: Glucose,Whole Blood 139 mg/dL (70-110)
[2024-04-16] MEDS ORDERED: LIDOCAINE 1% (10MG/ML) FOR IV START INTRADERMA PRN (00:04)
[2024-04-16] MEDS: LACTATED RINGERS 1,000 ML IV SCH (00:10)
[2024-04-16 03:42] VITALS: TEMP 98
[2024-04-16 06:06] LABS: Glucose,Whole Blood 134 mg/dL (70-110)
[2024-04-16 07:36] LABS: African American GFR (CKD) 71 (>60 ml/min/1.73 sqM); Anion Gap 7 mmol/L; Blood Urea Nitrogen 28 mg/dL (7-17); Carbon Dioxide 17 mmol/L (22-30); Chloride 112 mmol/L (98-107); Glucose 129 mg/dL (74-99); Non-African American GFR(CKD) 62 (>60 ml/min/1.73 sqM); Potassium 3.9 mmol/L (3.5-5.1); Sodium 136 mmol/L (137-145)
--- NOTE | 2024-04-16 08:10 | P.PN ---
Subjective Progress Note Date: 04/16/24 Principal diagnosis: Anemia, melena This is a pleasant 68-year-old female who is bedridden with multiple comorbidities including sacral ulcer, atrial fibrillation on Xarelto, asthma, chest pain, COPD, TIA/CVA, diabetes mellitus, hyperlipidemia, hypertension, MA, chronic renal disease and thyroid disease. Patient presented with complaints of loose stools for last 1 week that have been black. She states that she has had black stools off and on and anemia for last 1 to 2 years. She has had multiple upper endoscopies for evaluation of her anemia. Last upper endoscopy was with Dr. Hay Chacon with findings of mild gastritis, prior to that February 2023 again with findings of antral gastritis no active bleeding. She states that she has had a colonoscopy within the last couple years done at [facility]. She has had previous attempts here however has had poor prep. She denies any vomiting just loose bowel movements for the last week or so which she states have been black. States that she has required blood transfusions in the past. She states that she takes Excedrin usually daily for headaches. Again patient has a sacral wound and is complaining of pain on her backside. She denies any abdominal pain, no nausea and no vomiting. WBC 11.2 hemoglobin 7.4 hematocrit 22 platelet count 214,000 INR 1.1 BUN 59 creatinine 1.2 stool occult blood positive 04/16/2024 Patient is seen and examined today as a follow-up. Yesterday she underwent upper endoscopy with findings of 2 small nonbleeding duodenal angiectasia status post cautery using a gold probe and Short segment Cruz's esophagus. She currently denies any abdominal pain, nausea or vomiting. No bowel movements this morning. We will resume her Xarelto today. Objective - Vital Signs Vital signs: Vital Signs Temp 98.0 F 04/16/24 03:40 Pulse 94 04/16/24 03:40 Resp 16 04/16/24 03:40 BP 133/68 04/16/24 03:40 Pulse Ox 100 04/16/24 03:40 FiO2 Intake & Output 04/15/24 04/16/24 04/16/24 18:59 06:59 18:59 Intake Total 50 380 Output Total 600 Balance -550 380 Weight 79.5 kg Intake: IV 50 Oral 380 Output: Urine 600 Other: Voiding Method Indwelling Catheter Indwelling Catheter - Exam General appearance: The patient is alert, oriented, appears in no acute distress. HET: Head is normocephalic and atraumatic. Conjunctiva pink. Sclera anicteric. Neck: Supple without lymphadenopathy. Abdomen: Soft, nontender, morbidly obese, nondistended. Extremities: Normal skin color and turgor. No pedal edema Skin: No rashes, no jaundice Neurological: No focal deficits. Alert and oriented. - Labs CBC & Chem 7: 04/15/24 01:30 04/16/24 06:48 Labs: Abnormal Lab Results - Last 24 Hours (Table) 04/15/24 04/16/24 04/16/24 Range/Units 20:25 06:04 06:48 Sodium 136 L (137-145) mmol/L Chloride 112 H (98-107) mmol/L Carbon Dioxide 17 L (22-30) mmol/L BUN 28 H (7-17) mg/dL Glucose 129 H (74-99) mg/dL POC Glucose (mg/dL) 139 H 134 H (70-110) mg/dL Calcium 8.0 L (8.4-10.2) mg/dL Assessment and Plan (1) Positive fecal occult blood test Narrative/Plan: 68-year-old female with multiple comorbidities presented for diarrhea for the last week which she states has been black. She states that she has had intermittent black stools for last 1 to 2 years and chronic anemia. She has had multiple endoscopic evaluation without any findings of bleeding. Last upper endoscopy done in May 2023 with findings of mild gastritis. No reports of last colonoscopy she believes it was a couple years ago done at [facility] without any findings for anemia. She is on anticoagulation for atrial fibrillation. Unclear etiology of anemia, will proceed with upper endoscopy to evaluate for possible GI source and may proceed to small bowel video capsule endoscopy. This could also be anemia of chronic disease secondary to multiple comorbidities as well as chronic wound. Status post upper endoscopy with finding of 2 small nonbleeding duodenal angiectasia status post cautery using gold probe and a short segment of Cruz's esophagus. No further workup indicated. This is likely source of upper GI bleed. May resume anticoagulation. Current Visit: Yes Status: Acute Code(s): R19.5 - OTHER FECAL ABNORMALITIES SNOMED Code(s): 17608389 (2) Chronic anemia Current Visit: No Status: Acute Code(s): D64.9 - ANEMIA, UNSPECIFIED SNOMED Code(s): 563535019 (3) Morbid obesity with BMI of 40.0-44.9, adult Current Visit: Yes Status: Acute Code(s): E66.01 - MORBID (SEVERE) OBESITY DUE TO EXCESS CALORIES; Z68.41 - BODY MASS INDEX [BMI] 40.0-44.9, ADULT SNOMED Code(s): 846312204 (4) Chronic kidney disease Current Visit: Yes Status: Acute Code(s): N18.9 - CHRONIC KIDNEY DISEASE, U NSPECIFIED SNOMED Code(s): 736070698 (5) Sacral wound Current Visit: Yes Status: Acute Code(s): S31.000A - UNSP OPN WND LOW BACK AND PELV W/O PENET RETROPERITON, INIT SNOMED Code(s): 432167350 (6) Diabetes Current Visit: No Status: Chronic Code(s): E11.9 - TYPE 2 DIABETES MELLITUS WITHOUT COMPLICATIONS SNOMED Code(s): 83634169 (7) HTN (hypertension) Current Visit: No Status: Chronic Code(s): I10 - ESSENTIAL (PRIMARY) HYPERTE NSION SNOMED Code(s): 69418526 Plan: 1. Continue symptomatic and supportive care 2. May have consistent carbohydrate diet 3. Protonix 40 mg daily 4. May resume Xarelto 5. Avoid NSAID use 6. Patient is status post upper endoscopy. No further GI workup at this time. Thank you for allowing us to participate in the care of the patient, the GI service will sign off, gastroenterology will not be available at the hospital this weekend and through next week. If further evaluation by gastroenterology is required the patient will need transfer as per the primary team's discretion. Dr. Nora Mcmanus I agree with the dictator's note, documented as a scribe by Faye Antunez.
[2024-04-16 09:26] LABS: Anisocytosis Slight; Basophils # (A) 0.1 k/uL (0-0.2); Basophils % (A) 1 %; Eosinophils # (A) 0.4 k/uL (0-0.7); Eosinophils % (A) 5 %; HGB 7.8 gm/dL (11.4-16.0); Hypochromasia Marked; Lymphocytes # (A) 1.6 k/uL (1.0-4.8); Lymphocytes % (A) 23 %; MCH 31.5 pg (25.0-35.0); MCHC 32.5 g/dL (31.0-37.0); MCV 96.8 fL (80.0-100.0); Macrocytosis Slight; Mean Platelet Volume 7.1; Monocytes # (A) 0.5 k/uL (0-1.0); Monocytes % (A) 6 %; Neutrophils # (A) 4.6 k/uL (1.3-7.7); Neutrophils % (A) 63 %; Platelet Count 183 k/uL (150-450); RBC 2.48 m/uL (3.80-5.40); RDW 18.6 % (11.5-15.5); WBC 7.2 k/uL (3.8-10.6)
[2024-04-16 11:40] LABS: Glucose,Whole Blood 175 mg/dL (70-110)
--- NOTE | 2024-04-16 12:00 | P.DS ---
Providers Date of admission: 04/14/24 09:16 Expected date of discharge: 04/16/24 Attending physician: Yoselin Caballero Consults: 04/14/24 09:15 Consult Physician Routine Consulting Provider: Elvira Mcmanus Consult Reason/Comments: GI bleed, melanotic stool, chronic anemia Do you want consulting provider notified?: Yes Primary care physician: Lor Deluca Hospital Course: Discharge diagnoses; Acute GI bleed Severe acute blood loss anemia Sacral pressure ulcers stage II Acute kidney injury A-fib with controlled rate on Xarelto at [facility] Morbid obesity Hypothyroidism Hospital course; This is a pleasant 68 years old female from With past medical history of multiple medical problems as below. At baseline she is bedridden for more than a year and close 2 years as she expla ins. Patient presents because of black stool, she says she is always have black stool on and off for several months and years. But this time is different. It is associated with some cramps and when they checked her her black stool was continuous with little fresh blood in it She states that lately she has been complaining from pain in her lower back at the sacral area and over the last 2 to 3 days she has been using Excedrin 4 pills each when of 500 mg. She is currently she has some mild tenderness and pain in the right abdomen, no rebound tenderness. She denies chest pain or dyspnea, no headache dizziness weakness or numbness. No urinary complaints. During the encounter she has black stool soiled including the sacral pressure ulcers She has few superficial excoriated skin ulcers in the sacral area with pink and swelling areas. Hemodynamically she is little bit on the low side with blood pressure 74/28 on admission, currently 91/74, heart rate is controlled but also she is on beta- go metoprolol WBC is slightly elevated at 11.4, hemoglobin 7.4 and 7.2, BMP is unremarkable except for mildly elevated creatinine 1.26. Liver enzymes not elevated. Occult blood in the stool is positive EKG showing sinus rhythm at [address]-T changes 04/15 Patient is awake alert looks comfortable Her abdominal pain is better Black stool stopped Still complains from pain in her pressure ulcers in the sacral area. Patient has been n.p.o. going for EGD this morning Hemoglobin improved after blood transfusion Check labs tomorrow patient is an acceptable risk to undergo EGD and Scope today and there is no contraindication from medical perspective although there is still some small risk 1/10 patient seen and examined. S/p upper endoscopy with findings of 2 small nonbleeding duodenal angiectasia status post cautery using a gold probe and Short segment Cruz's esophagus, GI recommended resuming Xarelto PHYSICAL EXAMINATION: GENERAL: The patient is alert and oriented x3, ill looking HEENT: Pupils are round and equally reacting to light. EOMI. No scleral icterus. No conjunctival pallor. Normocephalic, atraumatic. No pharyngeal erythema. No thyromegaly. CARDIOVASCULAR: S1 and S2 present. No murmurs, rubs, or gallops. PULMONARY: Chest is clear to auscultation, no wheezing or crackles. ABDOMEN: Soft, nontender, nondistended, normoactive bowel sounds. No palpable organomegaly. MUSCULOSKELETAL: No joint swelling or deformity. EXTREMITIES: No cyanosis, clubbing, or pedal edema. NEUROLOGICAL: Gross neurological examination did not reveal any focal deficits. SKIN: No rashes. Dictation was produced using [employer] dictation software. please excuse any grammatical, word or spelling errors. Patient Condition at Discharge: Stable Plan - Discharge Summary Discharge Rx Participant: No New Discharge Prescriptions: New Pantoprazole Sodium [Protonix] 40 mg PO BID #60 tab Continue Montelukast [Singulair] 10 mg PO HS@2100 Levothyroxine Sodium [Synthroid] 125 mcg PO DAILY@0600 Isosorbide Mononitrate ER [Imdur] 30 mg PO DAILY@0900 Metoprolol Succinate (ER) [Toprol XL] 50 mg PO DAILY@0900 Trihexyphenidyl [Artane] 1 mg PO BID@0900,1700 Soothe And Cool Powder 1 applic TOPICAL BID Acetaminophen Tab [Tylenol] 650 mg PO Q4H PRN PRN Reason: Pain Tirzepatide [Mounjaro] 5 mg SQ WE lisinopriL [Zestril] 5 mg PO DAILY Ferrous Gluconate 324 mg PO DAILY Atorvastatin [Lipitor] 80 mg PO HS methocarbamoL [Robaxin] 500 mg PO Q8H PRN PRN Reason: Muscle Spasm allopurinoL 100 mg PO DAILY@0900 DULoxetine HCL [Cymbalta] 30 mg PO DAILY Melatonin 5 mg PO HS@2100 Aspirin 81 mg PO BID@0900,1700 Rivaroxaban [Xarelto] 15 mg PO DAILY Cadexomer Iodine Gel [Iodosorb Gel] 1 applic TOPICAL DAILY PRN PRN Reason: coccyx wounds Cadexomer Iodine Gel [Iodosorb Gel] 1 applic TOPICAL HS Cetirizine HCl [Zyrtec] 10 mg PO DAILY PRN PRN Reason: Allergy Symptoms Lactulose [Constulose] 20 gm PO Q12H Prostat Awc 30 ml PO DAILY polyethylene glycoL 3350 [Miralax] 17 gm PO DAILY Metoprolol Succinate (ER) [Toprol XL] 25 mg PO DAILY Insulin Glargine,Hum.rec.anlog [Lantus Solostar Pen] 13 units SQ HS Z-Guard 1 applic TOPICAL DIRECTED PRN PRN Reason: after cleanse Soothe And Cool 1 applic TOPICAL DIRECTED PRN PRN Reason: after cleanse Discontinued Omeprazole Magnesium [PriLOSEC OTC] 20 mg PO DAILY@0600 Discharge Medication List Montelukast [Singulair] 10 mg PO HS@209908/28/17 [History] Levothyroxine Sodium [Synthroid] 125 mcg PO DAILY@0605/22/21 [History] methocarbamoL [Robaxin] 500 mg PO Q8H PRN 05/22/21 [History] Isosorbide Mononitrate ER [Imdur] 30 mg PO DAILY@0912/04/21 [History] DULoxetine HCL [Cymbalta] 30 mg PO DAILY 09/27/22 [History] allopurinoL 100 mg PO DAILY@0909/27/22 [History] Melatonin 5 mg PO HS@209911/19/22 [History] Aspirin 81 mg PO BID@0900,1700 12/27/22 [History] Metoprolol Succinate (ER) [Toprol XL] 50 mg PO DAILY@0912/27/22 [History] Rivaroxaban [Xarelto] 15 mg PO DAILY 05/15/23 [History] Trihexyphenidyl [Artane] 1 mg PO BID@0900,1700 05/29/23 [History] Acetaminophen Tab [Tylenol] 650 mg PO Q4H PRN 04/14/24 [History] Atorvastatin [Lipitor] 80 mg PO HS 04/14/24 [History] Cadexomer Iodine Gel [Iodosorb Gel] 1 applic TOPICAL DAILY PRN 04/14/24 [History] Cadexomer Iodine Gel [Iodosorb Gel] 1 applic TOPICAL HS 04/14/24 [History] Cetirizine HCl [Zyrtec] 10 mg PO DAILY PRN 04/14/24 [History] Ferrous Gluconate 324 mg PO DAILY 04/14/24 [History] Insulin Glargine,Hum.rec.anlog [Lantus Solostar Pen] 13 units SQ HS 04/14/24 [History] Lactulose [Constulose] 20 gm PO Q12H 04/14/24 [History] Metoprolol Succinate (ER) [Toprol XL] 25 mg PO DAILY 04/14/24 [History] Prostat Awc 30 ml PO DAILY 04/14/24 [History] Soothe And Cool 1 applic TOPICAL DIRECTED PRN 04/14/24 [History] Soothe And Cool Powder 1 applic TOPICAL BID 04/14/24 [History] Tirzepatide [Mounjaro] 5 mg SQ WE 04/14/24 [History] Z-Guard 1 applic TOPICAL DIRECTED PRN 04/14/24 [History] lisinopriL [Zestril] 5 mg PO DAILY 04/14/24 [History] polyethylene glycoL 3350 [Miralax] 17 gm PO DAILY 04/14/24 [History] Pantoprazole Sodium [Protonix] 40 mg PO BID #60 tab 04/16/24 [Rx] Follow up Appointment(s)/Referral(s): Lor Deluca MD [Primary Care Provider] - 1-2 days Elvira Mcmanus MD [STAFF PHYSICIAN] - 1 Week (Call office or set up appointment for biopsy results)
[2024-04-16] MEDS: METOPROLOL SUCCINATE (ER) 50 MG TAB.ER.24H PO SCH (12:22)
[2024-04-16 12:55] VITALS: BP 109/49; PULSE 103; RESP 18
[2024-04-16 17:01] LABS: Glucose,Whole Blood 177 mg/dL (70-110)
[2024-04-16] MEDS ORDERED: RIVAROXABAN 15 MG TAB PO SCH (17:30)
[2024-04-17] MEDS ORDERED: METOPROLOL SUCCINATE (ER) 50 MG TAB.ER.24H PO SCH (09:00)
[2024-04-17] MEDS ORDERED: ISOSORBIDE MONONITRATE ER 30 MG TAB.ER.24H PO SCH (09:00)
[2024-04-17] MEDS ORDERED: FERROUS SULFATE 325 MG TAB PO SCH (09:00)
[2024-04-17] MEDS ORDERED: METOPROLOL SUCCINATE (ER) 25 MG TAB.ER.24H PO SCH (09:00)
[2024-04-17] MEDS ORDERED: lisinopriL 5 MG TAB PO SCH (09:00)
--- NOTE | 2024-04-19 12:56 | CDI ---
Documentation Clarification Form Date: 04/19/2024 12:22:17 PM From: Melisa Valenzuela RN, CCDS Email: [email or web address] Admit Date: 04/14/2024 09:16:00 AM Patient Name: Uma Oconnell Visit Number: [id number] Discharge Date: 04/16/2024 05:35:00 PM ATTENTION: The Clinical Documentation Specialists (CDI) and [facility] Coding Staff appreciate your assistance in clarifying documentation. Please respond to the clarification below the line at the bottom and electronically sign. The CDI & [facility] Coding staff will review the response and follow-up if needed. Please note: Queries are made part of the Legal Health Record. If you have any questions, please contact the author of this message via ITS. Doctor Maurilio E Sheet There is documentation of acute GI bleed and the patient is on Xarelto. Based on this information and the findings below, is there an additional diagnosis that is clinically appropriate for this patient? History/Risk Factors: A fib currently on Xarelto, HTN, HLD, CKD 3 and bedbound. Presents from skilled nursing with melanotic stool and multiple episodes of diarrhea. Admitted with acute GI bleed and acute blood loss anemia Clinical Indicators: 04/14 Labs: Hgb 7.2; PT/PTT/INR 12.4/22.4/1.1 04/14 H&P: "Acute GI bleed. Severe acute blood loss anemia. A-fib with controlled rate on Xarelto at skilled nursing. Continue with normal saline 75 mL/h with Midodrine as needed for hypotension. Hold Xarelto, Aspirin." 04/14 GI consult: "Hold anticoagulation." 04/15 Procedure note: "admitted to hospital with black tarry stools for the last few days duration. Patient has been on Xarelto which has been on hold for the last 2 days. 2 small nonbleeding duodenal angiectasia, S/P EGD with cautery using a gold probe." Treatment: Hold Xarelto; s/p EGD with cautery using a gold probe; IV Protonix 40mg BID 04/14-04/16 IV Fluid: 1L 0.9 NS IV bolus x2 on 04/14 followed by 75mL/hr 1/8 Transfusion: 1 unit PRBC's Is there an additional diagnosis that is clinically appropriate for this patient? [ x ] Acute GI bleed due to Xarelto use [ ] Other, please specify [ ] Unable to determine MTDD
== END 2024-04-16 17:35 | DRG 813 ==
LOC: EC 07:51 → 3SCARD 09:16
PROVIDERS: ADMIT Hospitalist; ATTEND Hospitalist
PROC: 30233N1 Transfusion of Nonautologous Red Blood Cells into Peripheral Vein, Percutaneous Approach (ICD-10-PCS; 2024-04-14)
PROC: 0D598ZZ Destruction of Duodenum, Via Natural or Artificial Opening Endoscopic (ICD-10-PCS; principal; 2024-04-15 16:30)
PROC: 0DB48ZX Excision of Esophagogastric Junction, Via Natural or Artificial Opening Endoscopic, Diagnostic (ICD-10-PCS; 2024-04-15 16:30)
DX: D68.32 Hemorrhagic disorder due to extrinsic circulating anticoagulants (principal); K31.811 Angiodysplasia of stomach and duodenum with bleeding; D62 Acute posthemorrhagic anemia; I42.9 Cardiomyopathy, unspecified; N17.9 Acute kidney failure, unspecified; Z68.41 Body mass index [BMI] 40.0-44.9, adult; E03.9 Hypothyroidism, unspecified; E11.22 Type 2 diabetes mellitus with diabetic chronic kidney disease; E11.622 Type 2 diabetes mellitus with other skin ulcer; E66.01 Morbid (severe) obesity due to excess calories; E78.5 Hyperlipidemia, unspecified; F32.A Depression, unspecified; F41.9 Anxiety disorder, unspecified; I12.9 Hypertensive chronic kidney disease with stage 1 through stage 4 chronic kidney disease, or unspecified chronic kidney disease; N18.9 Chronic kidney disease, unspecified; I48.91 Unspecified atrial fibrillation; K22.70 Barrett's esophagus without dysplasia; K29.70 Gastritis, unspecified, without bleeding; L89.152 Pressure ulcer of sacral region, stage 2; L89.322 Pressure ulcer of left buttock, stage 2; L98.499 Non-pressure chronic ulcer of skin of other sites with unspecified severity; T45.515A Adverse effect of anticoagulants, initial encounter; I25.2 Old myocardial infarction; Z74.01 Bed confinement status; Z79.01 Long term (current) use of anticoagulants; Z79.82 Long term (current) use of aspirin; Z79.890 Hormone replacement therapy; Z79.899 Other long term (current) drug therapy; Z86.73 Personal history of transient ischemic attack (TIA), and cerebral infarction without residual deficits; Z87.440 Personal history of urinary (tract) infections; Z87.442 Personal history of urinary calculi; Z87.891 Personal history of nicotine dependence; Z90.711 Acquired absence of uterus with remaining cervical stump; J44.9 Chronic obstructive pulmonary disease, unspecified; E11.42 Type 2 diabetes mellitus with diabetic polyneuropathy; Z86.19 Personal history of other infectious and parasitic diseases; Z98.42 Cataract extraction status, left eye; Z98.41 Cataract extraction status, right eye
CPT/HCPCS: 36415; 36430; 43239; 43270; 51701; 80048; 80053; 82272; 82728; 83540; 83550; 83605; 83735; 85025; 85610; 85730; 86850; 86900; 86901; 86920; 88305; 93005; 96361; 96374; 99291

== ENCOUNTER → 2024-04-23 | Outpatient (CLI) | payer MEDICARE ==
--- NOTE | 2024-04-23 16:10 | US ---
EXAMINATION TYPE: US transvaginal DATE OF EXAM: 04/23/2024 COMPARISON: CT 05/29/2023 CLINICAL INDICATION: Female, 68 years old with history of N85.00 ENDOMETRIAL HYPERPLASIA; [place] rusty Bleeding ? duration; ?Partial hysterectomy with single ?Right oophorectomy TECHNIQUE: Transvaginal (TV). Doppler imaging: Not performed. FINDINGS: Date of LMP: Unknown EXAM MEASUREMENTS: Uterus: 3.0 x 1.9 x 2.7 cm Endometrial Stripe: 0.10 cm Right Ovary: ? Surgically Absent cm Left Ovary: 3.7 x 2.8 x 3.8 cm 1. Uterus: Anteverted Heterogenous 2. Endometrium: WNL 3. Right Ovary: ? Surgically absent vs not visualized 4. Left Ovary: Multiple ?follicles vs Multiseptated cyst 5. Bilateral Adnexa: wnl 6. Posterior cul-de-sac: wnl IMPRESSION: 1. Appears to be multiple follicles on the left ovary. Multiloculated cyst could be considered. Follo w-up is recommended. [facility], Workstation: [facility], 04/23/2024 4:08 PM
== END | disposition home or self-care (01) ==
LOC: RADUSWWP 06:48
PROVIDERS: ATTEND Family Medicine
DX: N85.00 Endometrial hyperplasia, unspecified (principal); N83.292 Other ovarian cyst, left side
CPT/HCPCS: 76830

== ENCOUNTER 2024-08-18 16:23 | Emergency (ER) | payer MEDICARE ==
--- NOTE | 2024-08-18 17:01 | ED ---
General Adult HPI - General Chief complaint: Recheck/Abnormal Lab/Rx Stated complaint: ABN Labs Time Seen by Provider: 08/18/24 16:33 Source: patient, EMS, RN notes reviewed Mode of arrival: EMS Limitations: no limitations - History of Present Illness Initial comments: 68-year-old female presents emergency department from [facility] for possible anemia. Patient was sent over for anemia but patient unsure what her current hemoglobin is. Patient states that she has intermittent bleeding when she is changed at care home. Patient states that she had GI bleeding in the past multiple colonoscopies, EGDs with cauterization and states she has had intermittent vaginal bleeding. She states she does have a long history of anemia this has been a recurrent issue. She does complain that she feels generalized weak but that is normal for her she states she is nonambulatory. Patient denies any chest pain or shortness of breath at this time. - Related Data Home Medications Medication Instructions Recorded Confirmed Montelukast [Singulair] 10 mg PO HS@2100 08/28/17 07/16/24 Levothyroxine Sodium [Synthroid] 125 mcg PO DAILY@0600 05/22/21 07/16/24 methocarbamoL [Robaxin] 500 mg PO Q8H PRN 05/22/21 07/16/24 Isosorbide Mononitrate ER [Imdur] 30 mg PO DAILY@0912/04/21 07/16/24 DULoxetine HCL [Cymbalta] 30 mg PO DAILY 09/27/22 07/16/24 allopurinoL 100 mg PO DAILY@0900 09/27/22 07/16/24 Melatonin 5 mg PO HS@2100 11/19/22 07/16/24 Aspirin 81 mg PO BID@0900,1700 12/27/22 07/16/24 Metoprolol Succinate (ER) [Toprol 50 mg PO DAILY@0900 12/27/22 07/16/24 XL] Rivaroxaban [Xarelto] 15 mg PO DAILY 05/15/23 07/16/24 Trihexyphenidyl [Artane] 1 mg PO BID@0900,1700 05/29/23 07/16/24 Acetaminophen Tab [Tylenol] 650 mg PO Q4H PRN 04/14/24 07/16/24 Atorvastatin [Lipitor] 80 mg PO HS 04/14/24 07/16/24 Cadexomer Iodine Gel [Iodosorb Gel] 1 applic TOPICAL DAILY PRN 04/14/24 07/16/24 Cadexomer Iodine Gel [Iodosorb Gel] 1 applic TOPICAL HS 04/14/24 07/16/24 Cetirizine HCl [Zyrtec] 10 mg PO DAILY PRN 04/14/24 07/16/24 Ferrous Gluconate 324 mg PO DAILY 04/14/24 07/16/24 Insulin Glargine,Hum.rec.anlog 13 units SQ HS 04/14/24 07/16/24 [Lantus Solostar Pen] Lactulose [Constulose] 20 gm PO Q12H 04/14/24 07/16/24 Metoprolol Succinate (ER) [Toprol 25 mg PO DAILY 04/14/24 07/16/24 XL] Prostat Awc 30 ml PO DAILY 04/14/24 07/16/24 Soothe And Cool 1 applic TOPICAL DIRECTED PRN 04/14/24 07/16/24 Soothe And Cool Powder 1 applic TOPICAL BID 04/14/24 07/16/24 Tirzepatide [Mounjaro] 5 mg SQ WE 04/14/24 07/16/24 Z-Guard 1 applic TOPICAL DIRECTED PRN 04/14/24 07/16/24 lisinopriL [Zestril] 5 mg PO DAILY 04/14/24 07/16/24 polyethylene glycoL 3350 [Miralax] 17 gm PO DAILY 04/14/24 07/16/24 Previous Rx's Medication Instructions Recorded Pantoprazole Sodium [Protonix] 40 mg PO BID #60 tab 04/16/24 Allergies Allergy/AdvReac Type Severity Reaction Status Date / Time latex Allergy Rash/Hives Verified 07/16/24 09:18 Milk Containing Products Allergy Unknown Verified 07/16/24 09:18 (Dairy) [Dairy] grass pollen AdvReac Sinus Verified 07/16/24 09:18 mold AdvReac Sinus Verified 07/16/24 09:18 pollen extracts AdvReac Sinus Verified 07/16/24 09:18 Tetracyclines AdvReac YEAST Verified 07/16/24 09:18 INFECTION- PREFERS NOT TO TAKE tramadol AdvReac Unknown Verified 07/16/24 09:18 tree and shrub pollen AdvReac Sinus Verified 07/16/24 09:18 ENVIRONMENTAL ALLERGIES AdvReac SINUS Uncoded 07/16/24 09:18 SYMPTOMS-GRASS TREES,DUST,POLLENS,MOLD Review of Systems ROS Statement: Those systems with pertinent positive or pertinent negative responses have been documented in the HPI. ROS Other: All systems not noted in ROS Statement are negative. Past Medical History Past Medical History: Atrial Fibrillation, Asthma, Chest Pain / Angina, COPD, CVA/TIA, Diabetes Mellitus, Hyperlipidemia, Hypertension, Myocardial Infarction (MN), Renal Disease, Thyroid Disorder Additional Past Medical History / Comment(s): frequent uti's,kidney stones,HEART MURMUR,cardiomyopathy,CHRONIC CONSTIPATION, ECZEMA,SINUS HEADACHES, HX ANEMIA, gout. stage III kidney disease stage 3,lower back pain. 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.FEEt, weakness LT SIDE, ,stg three kidney disease,eye disorder fuchs corneal dystrophy. Last Myocardial Infarction Date:: 2022 History of Any Multi-Drug Resistant Organisms: ESBL, MRSA, VRE Date of last positivie culture/infection: 08/02/24 ESBL; 05/29/23 VRE; 01/02/22 MRSA MDRO Source:: Urine-VRE; Urine-MRSA; Urine-ESBL Past Surgical History: Heart Catheterization, Heart Catheterization With Stent Additional Past Surgical History / Comment(s): PARTIAL HYSTERECTOMY 03/18/14 @ [facility]. CATARACT BLACK. WITH IMPLANTS. HEART CATH X 3 TOTAL 3 STENTS, lithotripsy,kidney stent Past Anesthesia/Blood Transfusion Reactions: No Reported Reaction, Motion Sickness Additional Past Anesthesia/Blood Transfusion Reaction / Comment(s): no hx blood transfusion Date of Last Stent Placement:: UNKNOWN Past Psychological History: Anxiety, Depression Smoking Status: Former smoker Past Alcohol Use History: None Reported Past Drug Use History: None Reported - Past Family History Father Additional Family Medical History / Comment(s): "HARDENEING OF THE ARTERIES AT AGE 41. SMOKED AND DRANK ETOH Mother Family Medical History: Cancer Additional Family Medical History / Comment(s): "cyst that ruptured between bowel and bladder" General Exam Limitations: no limitations General appearance: alert, in no apparent distress Head exam: Present: atraumatic, normocephalic, normal inspection Eye exam: Present: normal appearance, PERRL, EOMI. Absent: scleral icterus, conjunctival injection, periorbital swelling Neck exam: Present: normal inspection. Absent: tenderness, meningismus, lymphadenopathy Respiratory exam: Present: normal lung sounds bilaterally. Absent: respiratory distress, wheezes, rales, rhonchi, stridor Cardiovascular Exam: Present: regular rate, normal rhythm, normal heart sounds. Absent: systolic murmur, diastolic murmur, rubs, gallop, clicks GI/Abdominal exam: Present: soft, normal bowel sounds. Absent: distended, tenderness, guarding, rebound, rigid Course Vital Signs 08/18/24 08/18/24 08/18/24 16:26 16:47 17:31 Temperature 97.5 F L Pulse Rate 67 69 64 Respiratory 18 20 16 Rate Blood Pressure 92/59 90/45 84/42 O2 Sat by Pulse 100 98 95 Oximetry 08/18/24 08/18/24 08/18/24 18:00 18:24 18:49 Temperature 97.6 F Pulse Rate 63 67 Respiratory 20 20 Rate Blood Pressure 80/50 91/43 92/57 O2 Sat by Pulse 95 95 Oximetry 08/18/24 19:04 Temperature 97.5 F L Pulse Rate 68 Respiratory 18 Rate Blood Pressure 104/43 O2 Sat by Pulse Oximetry Medical Decision Making - Medical Decision Making Was pt. sent in by a medical professional or institution (, PA, FRAME HAND, urgent care, hospital, or care home...) When possible be specific @ -[assisted Did you speak to anyone other than the patient for history (EMS, parent, family, police, friend...)? What history was obtained from this source @ -No Did you review nursing and triage notes (agree or disagree)? Why? @ -I reviewed and agree with nursing and triage notes Were old charts reviewed (outside hosp., previous admission, EMS record, old EKG, old radiological studies, urgent care reports/EKG's, care home records)? Report findings @ -No old charts were reviewed Differential Diagnosis (chest pain, altered mental status, abdominal pain women, abdominal pain men, vaginal bleeding, weakness, fever, dyspnea, syncope, headache, dizziness, GI bleed, back pain, seizure, CVA, palpatations, mental health, musculoskeletal)? @ -Differential GI Bleed: Esophageal varices, aortoenteric fistula, Radha-Rogers, gastritis, peptic ulcer disease, diverticulosis, inflammatory bowel disease, hemorrhoids, fissure, colitis, malignancy, Meckel's diverticulum, this is not meant to be an all- inclusive list. EKG interpreted by me (3pts min.). @ -As above X-rays interpreted by me (1pt min.). @ -None done CT interpreted by me (1pt min.). @ -None done U/S interpreted by me (1pt. min.). @ -None done What testing was considered but not performed or refused? (CT, X-rays, U/S, labs)? Why? @ -None What meds were considered but not given or refused? Why? @ -None Did you discuss the management of the patient with other professionals (professionals i.e. , PA, FRAME HAND, lab, RT, psych nurse, rn social work, physical therapy professor, teacher, animal park code enforcement officer, case investigator)? Give summary @[facility] for transfer Was smoking cessation discussed for >3mins.? @ -No Was critical care preformed (if so, how long)? @ -35 minutes Were there social determinants of health that impacted care today? How? (Homelessness, low income, unemployed, alcoholism, drug addiction, transportation, low edu. Level, literacy, decrease access to med. care, half-way, rehab)? @ -No Was there de-escalation of care discussed even if they declined (Discuss DNR or withdrawal of care, Hospice)? DNR status @ -No What co-morbidities impacted this encounter? (DM, HTN, Smoking, COPD, CAD, Cancer, CVA, ARF, Chemo, Hep., AIDS, mental health diagnosis, sleep apnea, morbid obesity)? @ -None Was patient admitted / discharged? Hospital course, mention meds given and route, prescriptions, significant lab abnormalities, going to OR and other p ertinent info. @ -Transferred to [facility]. Patient found to have hemoglobin 5.9. Patient is on Xarelto did receive dose today. Patient was given Kcentra and TXA given patient did have 2 units of blood ordered. Patient has mild hypotension. Patient does not have any active bleeding on exam. Patient will be transferred to [facility] as there is no current available GI services. Undiagnosed new problem with uncertain prognosis? @ -No Drug Therapy requiring intensive monitoring for toxicity (Heparin, Nitro, Insulin, Cardizem)? @ -No Were any procedures done? @ -No Diagnosis/symptom? @ -GI bleed, anemia Acute, or Chronic, or Acute on Chronic? @ -Acute Uncomplicated (without systemic symptoms) or Complicated (systemic symptoms)? @ -Complicated Side effects of treatment? @ -No Exacerbation, Progression, or Severe Exacerbation? @ -No Poses a threat to life or bodily function? How? (Chest pain, USA, [place], pneumonia, PE, COPD, DKA, ARF, appy, cholecystitis, CVA, Diverticulitis, Homicidal, Suicidal, threat to staff... and all critical care pts) @ -Yes GI bleed risk to an organ failure - Lab Data Result diagrams: 08/18/24 17:35 08/18/24 17:35 Lab Results 08/18/24 08/18/24 08/18/24 Range/Units 17:35 17:35 17:35 WBC 9.37 (4.50-10.00) 10*3/uL RBC 1.84 L (4.10-5.20) 10*6/uL Hgb 5.9 L* (12.0-15.0) g/dL Hct 19.5 L* (37.2-46.3) % MCV 106.0 H (80.0-97.0) fL MCH 32.1 H (27.0-32.0) pg MCHC 30.3 L (32.0-37.0) g/dL Plt Count 211 (140-440) 10*3/uL MPV 9.1 L (9.5-12.2) fL Immature Gran % (Auto) 1.4 % Neutrophils % 55.1 % Lymphocytes % 22.7 % Monocytes % 9.0 % Eosinophils % 11.2 % Basophils % 0.6 % Immature Gran # 0.13 H (0.00-0.04) 10*3/uL Neutrophils # 5.16 (1.80-7.70) 10*3/uL Lymphocytes # 2.13 (0.90-5.00) 10*3/uL Monocytes # 0.84 (0.20-1.00) 10*3/uL Eosinophils # 1.05 H (0.04-0.35) 10*3/uL Basophils # 0.06 (0.00-0.10) 10*3/uL Manual Slide Review Performed Polychromasia Present PT 11.7 (10.0-12.5) sec INR 1.1 (<1.2) APTT 22.2 (22.0-30.0) sec Sodium 136 L (137-145) mmol/L Potassium 4.4 (3.5-5.1) mmol/L Chloride 108 H (98-107) mmol/L Carbon Dioxide 22 (22-30) mmol/L Anion Gap 6 mmol/L BUN 75 H (7-17) mg/dL Creatinine 1.42 H (0.52-1.04) mg/dL Est GFR (CKD-EPI)AfAm 44 (>60 ml/min/1.73 sqM) Est GFR (CKD-EPI)NonAf 38 (>60 ml/min/1.73 sqM) Glucose 77 (74-99) mg/dL Plasma Lactic Acid Dev (0.7-2.0) mmol/L Calcium 8.3 L (8.4-10.2) mg/dL Magnesium 2.8 H (1.6-2.3) mg/dL Total Bilirubin 0.3 (0.2-1.3) mg/dL AST 17 (14-36) U/L ALT 10 (4-34) U/L Alkaline Phosphatase 99 (38-126) U/L Troponin I (0.000-0.034) ng/mL Total Protein 4.9 L (6.3-8.2) g/dL Albumin 2.7 L (3.5-5.0) g/dL Blood Type Blood Type Recheck Bld Type Recheck Status Antibody Screen Crossmatch Spec Expiration Date 08/18/24 08/18/24 08/18/24 Range/Units 17:35 17:35 17:35 WBC (4.50-10.00) 10*3/uL RBC (4.10-5.20) 10*6/uL Hgb (12.0-15.0) g/dL Hct (37.2-46.3) % MCV (80.0-97.0) fL MCH (27.0-32.0) pg MCHC (32.0-37.0) g/dL Plt Count (140-440) 10*3/uL MPV (9.5-12.2) fL Immature Gran % (Auto) % Neutrophils % % Lymphocytes % % Monocytes % % Eosinophils % % Basophils % % Immature Gran # (0.00-0.04) 10*3/uL Neutrophils # (1.80-7.70) 10*3/uL Lymphocytes # (0.90-5.00) 10*3/uL Monocytes # (0.20-1.00) 10*3/uL Eosinophils # (0.04-0.35) 10*3/uL Basophils # (0.00-0.10) 10*3/uL Manual Slide Review Polychromasia PT (10.0-12.5) sec INR (<1.2) APTT (22.0-30.0) sec Sodium (137-145) mmol/L Potassium (3.5-5.1) mmol/L Chloride (98-107) mmol/L Carbon Dioxide (22-30) mmol/L Anion Gap mmol/L BUN (7-17) mg/dL Creatinine (0.52-1.04) mg/dL Est GFR (CKD-EPI)AfAm (>60 ml/min/1.73 sqM) Est GFR (CKD-EPI)NonAf (>60 ml/min/1.73 sqM) Glucose (74-99) mg/dL Plasma Lactic Acid Dev 1.2 (0.7-2.0) mmol/L Calcium (8.4-10.2) mg/dL Magnesium (1.6-2.3) mg/dL Total Bilirubin (0.2-1.3) mg/dL AST (14-36) U/L ALT (4-34) U/L Alkaline Phosphatase (38-126) U/L Troponin I <0.012 (0.000-0.034) ng/mL Total Protein (6.3-8.2) g/dL Albumin (3.5-5.0) g/dL Blood Type A Positive Blood Type Recheck A Pos Bld Type Recheck Status No Antibody Screen NEGATIVE Crossmatch See Detail Spec Expiration Date 08/21/20249 - EKG Data -: EKG Interpreted by Me EKG Comments: EKG performed at 17: 28 sinus rhythm rate of 69 DC 177 QRS 100 QT/QTc 424/443 Critical Care Time Critical Care Time: Yes Total Critical Care Time: 35 Disposition Clinical Impression: GI bleed, Anemia Disposition: OTHER INSTITUTION NOT DEFINED Condition: Serious Referrals: Lor Deluca MD [Primary Care Provider] - 1-2 days Time of Disposition: 19:13 - Out of Hospital Transfer - Req. Specs Out of Hospital Transfer - Requested Specifics: Other Emergency Center ([facility])
[2024-08-18 17:48] LABS: Basophils # (A) 0.06 10*3/uL (0.00-0.10); Basophils % (A) 0.6 %; Eosinophils # (A) 1.05 10*3/uL (0.04-0.35); Eosinophils % (A) 11.2 %; Lymphocytes # (A) 2.13 10*3/uL (0.90-5.00); Lymphocytes % (A) 22.7 %; MCH 32.1 pg (27.0-32.0); MCHC 30.3 g/dL (32.0-37.0); Mean Platelet Volume 9.1 fL (9.5-12.2); Monocytes # (A) 0.84 10*3/uL (0.20-1.00); Neutrophils # (A) 5.16 10*3/uL (1.80-7.70); Neutrophils % (A) 55.1 %; Platelet Count 211 10*3/uL (140-440); RBC 1.84 10*6/uL (4.10-5.20); RDW 20.4 % (11.5-14.5); WBC 9.37 10*3/uL (4.50-10.00)
[2024-08-18 17:51] LABS: HCT 19.5 % (37.2-46.3)
[2024-08-18 17:53] LABS: HGB 5.9 g/dL (12.0-15.0)
[2024-08-18 17:56] LABS: ALT 10 U/L (4-34); AST 17 U/L (14-36); African American GFR (CKD) 44 (>60 ml/min/1.73 sqM); Albumin 2.7 g/dL (3.5-5.0); Alkaline Phosphatase 99 U/L (38-126); Anion Gap 6 mmol/L; Blood Urea Nitrogen 75 mg/dL (7-17); Calcium 8.3 mg/dL (8.4-10.2); Carbon Dioxide 22 mmol/L (22-30); Chloride 108 mmol/L (98-107); Glucose 77 mg/dL (74-99); Magnesium 2.8 mg/dL (1.6-2.3); Non-African American GFR(CKD) 38 (>60 ml/min/1.73 sqM); Potassium 4.4 mmol/L (3.5-5.1); Sodium 136 mmol/L (137-145); Total Bilirubin 0.3 mg/dL (0.2-1.3); Total Protein 4.9 g/dL (6.3-8.2)
[2024-08-18 18:03] LABS: INR 1.1 (<1.2); Partial Thromboplastin Time 22.2 sec (22.0-30.0); Prothrombin Time 11.7 sec (10.0-12.5)
[2024-08-18 18:16] LABS: Polychromasia Present
[2024-08-18] MEDS ORDERED: Kcentra / Balfaxar PER PHARMACY 1 EACH MISC MISCELLANE PRN (18:40)
[2024-08-18] MEDS ORDERED: EMPTY BAG 1 BAG with HUMAN PROTHROMBN CMPL-BALFAXAR 2,080 UNIT IV ONE (18:45)
[2024-08-18] MEDS: TRANEXAMIC 1,000 MG/100ML-NACL 1,000 MG in SALINE 1 100ML.BAG IVPB ONE (19:01)
[2024-08-18 19:06] VITALS: RESP 18; TEMP 97.5
[2024-08-18] MEDS: EMPTY BAG 1 BAG with HUMAN PROTHROMBN CMPL-BALFAXAR 2,080 UNIT IV ONE (19:40)
[2024-08-18 19:48] VITALS: BP 104/52; PULSE 71
== END 2024-08-18 19:48 | disposition other institution (70) ==
LOC: EC 16:23
DX: K92.2 Gastrointestinal hemorrhage, unspecified (principal); D64.9 Anemia, unspecified; Z86.73 Personal history of transient ischemic attack (TIA), and cerebral infarction without residual deficits; Z87.891 Personal history of nicotine dependence; Z88.5 Allergy status to narcotic agent; Z91.040 Latex allergy status; Z91.011 Allergy to milk products; Z88.8 Allergy status to other drugs, medicaments and biological substances
CPT/HCPCS: 36415; 93005; 86900; 86901; 80053; 83605; 83735; 84484; 85025; 85610; 85730; 86850; 86920; 99291; 96365; 96375; 36430; P9016; J7165

== ENCOUNTER 2024-09-14 08:06 | Day surgery (SDC) | payer MEDICARE, OTHER ==
[2024-09-13 16:06] VITALS: BMI 43.6
[2024-09-14 08:38] VITALS: RESP 16; TEMP 97.7
[2024-09-14] MEDS: IV FLUID CONTINUATION 1,000 ML IV ONE ×2 (09:06→09:20)
[2024-09-14 09:11] LABS: Glucose,Whole Blood 98 mg/dL (70-110)
[2024-09-14] MEDS ORDERED: PROPOFOL 10 MG/ML 20 ML VIAL IV ONE (09:23)
--- NOTE | 2024-09-14 09:50 | P.PCN ---
Date of Procedure: 09/14/24 Procedure(s) Performed: BRIEF HISTORY: Patient is a 68-year-old pleasant white female scheduled for an elective colonoscopy as a part of evaluation of intermittent rectal bleeding and iron deficiency anemia. She has history of A-fib and has been on Xarelto for several years. 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 PROCEDURE PERFORMED: Colonoscopy with argon plasma coagulation and foreign body retrieval. PREOPERATIVE DIAGNOSIS: Iron deficiency anemia and rectal bleeding. IV sedation per Anesthesia. PROCEDURE: After informed consent was obtained, the patient, was brought into the endoscopy unit. IV sedation was administered by Anesthesia under continuous monitoring. Digital rectal examination was normal. Initially the Olympus CF-160 flexible video colonoscope was then inserted in the rectum, gradually advanced into the cecum without any difficulty. Careful examination was performed as the scope was gradually being withdrawn. Ileocecal valve and the appendiceal orifice were visualized and appeared normal. Prep was excellent. Mucosa of the cecum, ascending colon, had 2 nonbleeding arteriovenous malformations each measuring 1 cm in size both of which were coagulated using argon plasma. Mucosa of the transverse colon appeared normal. In the descending colon there was foreign body noted ( round diameter rings) identified which were retrieved using a biopsy forceps without any difficulty. Scattered left-sided diverticulosis seen. Mucosa, descending colon, sigmoid colon, and rectum appeared normal. Retroflexion was performed in the rectum and no lesions were seen. The patient tolerated the procedure well. IMPRESSION: 1 cm cecal nonbleeding arteriovenous malformation status post argon plasma coagulation as described above 1 cm ascending colon AVM status post argon plasma coagulation Foreign body noted in the descending colon(2 dmitriy rings) that were retrieved using biopsy forceps Scattered sigmoid diverticulosis RECOMMENDATIONS: Findings of this examination were discussed with the patient as well as her caregiver. She was advised to resume Xarelto tonight. Monitor CBC daily. Continue with iron supplements daily.
[2024-09-14 10:20] VITALS: BP 98/50; PULSE 75
== END 2024-09-14 10:40 | disposition home or self-care (01) ==
LOC: ORWHC2ENDO 08:06
PROVIDERS: ATTEND Internal Medicine Gastroenterology
DX: K62.5 Hemorrhage of anus and rectum (principal); K57.30 Diverticulosis of large intestine without perforation or abscess without bleeding; D50.9 Iron deficiency anemia, unspecified; I25.2 Old myocardial infarction; I25.10 Atherosclerotic heart disease of native coronary artery without angina pectoris; I42.9 Cardiomyopathy, unspecified; I48.91 Unspecified atrial fibrillation; J44.89 Other specified chronic obstructive pulmonary disease; E07.9 Disorder of thyroid, unspecified; I10 Essential (primary) hypertension; E78.5 Hyperlipidemia, unspecified; G62.9 Polyneuropathy, unspecified; Z79.890 Hormone replacement therapy; Z79.4 Long term (current) use of insulin; Z79.01 Long term (current) use of anticoagulants; Z79.899 Other long term (current) drug therapy
CPT/HCPCS: 45382; 45379; J2704; 45388